=== PATIENT | female | born 1945 | race Caucasian/White ===

== ENCOUNTER → 2018-04-09 | Outpatient (CLI) | payer MEDICARE ==
--- NOTE | 2018-04-09 20:49 | CONS ---
CONSULTATION REASON FOR CONSULTATION: Obstructive sleep apnea. This is a 72-year-old female patient, a primary of Dr. Scott, coming in due to concerns about sleep apnea. She snores and her sleep is fragmented and she wakes up tired and sleepy during the day. Occasionally she grinds her teeth. She goes to bed around 10 p.m., wakes up at 7 to 8 a.m. in the morning, and she is not refreshed. She has been told by family members that she has loud snoring. Her weight has been up gradually, and currently she is up by 20 pounds. Her current [place] Score is 12. No sleep paralysis, hallucinations or cataplexy. PAST MEDICAL HISTORY: 1. Obesity. 2. Breast cancer with previous lumpectomy on the right followed by radiation therapy and chemotherapy. 3. Hypertension. SURGICAL HISTORY: 1. Lumpectomy. 2. Dilation and curettage. 3. Bladder suspension surgery. DRUG ALLERGIES: NOT KNOWN. OUTPATIENT MEDICATIONS: Listed. SOCIAL HISTORY: The patient is a nonsmoker. She quit smoking 24 years ago. No history of alcoholism. No history of IV drugs. FAMILY HISTORY: Positive for lung cancer in a sister. REVIEW OF SYSTEMS: Twelve-point review of systems was done. Positive findings are all mentioned above in the history of present illness. PHYSICAL EXAMINATION: BP is 161/71, pulse 63, respirations 16, temperature 98.8, saturation 93% on room air. Weight is 226. Height is 5 feet 0 inches. BMI is 44.1. Neck size 15-1/2 inches. GENERAL APPEARANCE: Calm, comfortable. Head is atraumatic, normocephalic. Neck is short, supple. Crowding of posterior pharynx. There is no goiter or neck masses. LUNGS: Clear to auscultation. Heart sounds are regular rate and rhythm. Normal S1, S2. No S3, S4. No murmurs. ABDOMEN: Soft, nontender. No organomegaly. EXTREMITIES: No edema. No cyanosis or clubbing. Neurologically the patient is alert and oriented x3. There is no focal neurological deficit. PSYCHIATRIC: No anxiety or depression. IMPRESSION: 1. Obstructive sleep apnea clinically suspected; needs further investigation. 2. Hypersomnia; [place] score of 12. 3. Obesity with a body mass index of 44.1. 4. History of breast cancer with previous lumpectomy followed by radiation therapy. Currently on Arimidex. 5. Hypertension. PLAN: 1. Encourage weight loss. 2. Sleep in a sidewise body position. 3. Implement good sleep hygiene measures. 4. Proceed with a screening polysomnogram to look for any significant sleep breathing disorder/sleep apnea. Will treat the patient accordingly. BENITO / MILLYN: [id number] /
== END | disposition home or self-care (01) ==
LOC: SLEEP 15:45
PROVIDERS: ATTEND Internal Medicine Critical Care Medicine
DX: G47.10 Hypersomnia, unspecified (principal); R06.83 Snoring; E66.9 Obesity, unspecified; I10 Essential (primary) hypertension; Z68.41 Body mass index [BMI] 40.0-44.9, adult; Z85.3 Personal history of malignant neoplasm of breast; Z90.10 Acquired absence of unspecified breast and nipple; Z79.899 Other long term (current) drug therapy; Z92.3 Personal history of irradiation
CPT/HCPCS: 99211

== ENCOUNTER → 2018-08-06 | Outpatient (CLI) | payer MEDICARE ==
--- NOTE | 2018-08-06 15:19 | PN ---
PROGRESS NOTE A 73-year-old female patient diagnosed having severe CÉSAR with an AHI of 35, currently on CPAP pressure of 11 cm of water. She is coming in for a compliancy check. The patient reports marked improvement in sleep quality. She has benefitted from treatment. She is waking up refreshed and alert during the day. Her daytime sleepiness improved. Her attention span has also improved. She is very compliant with CPAP therapy. Her CPAP therapy for the past 30 days indicated an average use of 9.6 hours of CPAP per night and her CPAP use for more than 4 hours, 100%. Her leak factor is 4 L/minute. AHI is down to 2.6, and she is using the AirFit P10 nose mask. [place] score is 0. REVIEW OF SYSTEMS: A 12-point review of system was done. Positive findings are mentioned in history of present illness. Clinically, she is improving. Her hypersomnia is improved. Attention is improved, no depression, no anxiety. No major tiredness or sleepiness during the day. Does not fall asleep while driving her car. No nausea, no vomiting. No chest pain. No heartburn at nighttime. PHYSICAL EXAMINATION: BP is 128/66, pulse 67, respirations 16, temperature 97.7, weight is 227, and [place] score 0, saturation 96% on room air. GENERAL APPEARANCE: Calm, comfortable. Head is atraumatic, normocephalic. Neck is short, supple, crowded in the posterior pharynx. There is no goiter or neck masses. LUNGS: Clear to auscultation. HEART: Sounds regular rate and rhythm. Normal S1, S2. No S3, S4. No murmurs. ABDOMEN: Soft, nontender. No organomegaly. EXTREMITIES: No edema. No cyanosis or clubbing. NEUROLOGIC: Alert and oriented x3. No focal neurological deficits. PSYCHIATRIC: Negative for anxiety or depression. IMPRESSION: 1. Severe obstructive sleep apnea with an apnea-hypopnea index of 35, currently on CPAP pressure of 11, treatment has been very successful. 2. Morbid obesity., body mass index of 44. 3. Hypersomnia, improved [place] score is down to 0 from a baseline of 12. 4. Hypertension. 5. History of breast cancer. PLAN: 1. Continue CPAP therapy at the same level of pressure which is 11 cm of water. 2. Continue using AirFit P10 nose pillows. 3. Encourage weight loss. 4. Implement good sleep hygiene measures. Will continue to follow. See me back in a year's time in follow up, earlier if needed. The treatment is extremely successful. MMODL / IJN: [id number] /
== END | disposition home or self-care (01) ==
LOC: SLEEP 13:13
PROVIDERS: ATTEND Internal Medicine Critical Care Medicine
DX: G47.33 Obstructive sleep apnea (adult) (pediatric) (principal); I10 Essential (primary) hypertension; E66.01 Morbid (severe) obesity due to excess calories; Z68.41 Body mass index [BMI] 40.0-44.9, adult; Z85.3 Personal history of malignant neoplasm of breast; Z99.89 Dependence on other enabling machines and devices

== ENCOUNTER 2019-04-25 15:42 | Inpatient (IN) | payer MEDICARE ==
[2019-04-25] MEDS ORDERED: NALOXONE 0.4 MG/ML 1 ML VIAL IV PRN (16:31)
--- NOTE | 2019-04-25 16:31 | ED ---
Recheck HPI - General Chief Complaint: Recheck/Abnormal Lab/Rx Stated Complaint: sent by Dr. Oliva Time Seen by Provider: 04/25/19 15:54 Source: patient, RN notes reviewed Mode of arrival: ambulatory Limitations: no limitations - History of Present Illness Initial Comments: This is a 73-year-old female with a history of CLL history of breast cancer who was sent over from her oncologist office after blood test revealed that she had a platelet count of 1 she has had some bruising no blood per rectum no nausea vomiting or other symptoms. Is also found to be somewhat anemic. Hemoglobin 8.7. She is sent in for a platelet transfusion and further evaluation. She denies any other symptoms at this time. - Related Data Home Medications Medication Instructions Recorded Confirmed Anastrozole [Arimidex] 1 mg PO DAILY 03/28/16 04/25/19 amLODIPine [Norvasc] 5 mg PO BID 03/28/16 04/25/19 Allopurinol [Zyloprim] 300 mg PO DAILY 04/25/19 04/25/19 Atorvastatin [Lipitor] 40 mg PO HS 04/25/19 04/25/19 Docusate [Colace] 100 mg PO DAILY 04/25/19 04/25/19 Ferrous Sulfate [Feosol] 325 mg PO DAILY 04/25/19 04/25/19 Imatinib Mesylate [Gleevec] 400 mg PO DAILY 04/25/19 04/25/19 Previous Rx's Medication Instructions Recorded Pantoprazole Sodium [Protonix] 40 mg PO BID #60 tablet. 04/27/16 Allergies Allergy/AdvReac Type Severity Reaction Status Date / Time No Known Allergies Allergy Verified 04/25/19 16:19 Review of Systems ROS Statement: Those systems with pertinent positive or pertinent negative responses have been documented in the HPI. ROS Other: All systems not noted in ROS Statement are negative. Past Medical History Past Medical History: Cancer, Hyperlipidemia, Hypertension, Osteoarthritis (OA) Additional Past Medical History / Comment(s): hx. breast cancer 2013 w/lumpectomy, chemo & radiation, new dx. chronic lymphocytic leukemia(CLL), DJD History of Any Multi-Drug Resistant Organisms: None Reported Past Surgical History: Bladder Surgery, Breast Surgery, Joint Replacement, Tubal Ligation, Uterine Ablation Additional Past Surgical History / Comment(s): 04/18/16 total right knee arthroplasty. Other surgical hx: right breast lumpectomy, bladder suspension, several D & C's Past Anesthesia/Blood Transfusion Reactions: Postoperative Nausea & Vomiting (PONV) Past Psychological History: No Psychological Hx Reported Smoking Status: Former smoker Past Alcohol Use History: None Reported Past Drug Use History: None Reported - Past Family History Father Family Medical History: Cancer Sister(s) Family Medical History: Cancer Mother Family Medical History: Cancer General Exam - General Exam Comments Initial Comments: This a well-developed well-nourished awake alert oriented 3 female Limitations: no limitations General appearance: alert, in no apparent distress Head exam: Present: atraumatic, normocephalic, normal inspection Eye exam: Present: normal appearance, PERRL, EOMI. Absent: scleral icterus, conjunctival injection, periorbital swelling ENT exam: Present: normal exam, mucous membranes moist Neck exam: Present: normal inspection. Absent: tenderness, meningismus, lymphadenopathy Respiratory exam: Present: normal lung sounds bilaterally. Absent: respiratory distress, wheezes, rales, rhonchi, stridor Cardiovascular Exam: Present: regular rate, normal rhythm, normal heart sounds. Absent: systolic murmur, diastolic murmur, rubs, gallop, clicks GI/Abdominal exam: Present: soft, normal bowel sounds. Absent: distended, tenderness, guarding, rebound, rigid Rectal exam: Present: deferred Extremities exam: Present: normal inspection, full ROM, normal capillary refill. Absent: tenderness, pedal edema, joint swelling, calf tenderness Back exam: Present: normal inspection Neurological exam: Present: alert, oriented X3, CN II-XII intact Psychiatric exam: Present: normal affect, normal mood Skin exam: Present: warm, dry, intact, pallor, other (Several areas of bruising noted on the extremities). Absent: normal color, rash Course Vital Signs 04/25/19 15:46 Temperature 97.4 F L Pulse Rate 73 Respiratory 18 Rate Blood Pressure 125/72 O2 Sat by Pulse 96 Oximetry Medical Decision Making - Medical Decision Making I did discuss the case with the patient and family members as well as with Dr. Oliva initially and also with . there is to the patient will be admitted for platelet transfusion immunoglobulin was requested but currently is not available. Disposition Clinical Impression: Thrombocytopenia, Anemia, CLL (chronic lymphocytic leukemia), History of breast cancer Disposition: ADMITTED IP TO THIS HOSP Condition: Fair Referrals: Temo Scott III, MD [Primary Care Provider] - 1-2 days
[2019-04-25 17:39] LABS: Anisocytosis Slight; HCT 25.6 % (34.0-46.0); HGB 8.7 gm/dL (11.4-16.0); MCH 34.1 pg (25.0-35.0); MCHC 33.9 g/dL (31.0-37.0); MCV 100.7 fL (80.0-100.0); Macrocytosis Slight; Mean Platelet Volume 7.2; RBC 2.54 m/uL (3.80-5.40)
[2019-04-25 17:54] LABS: Platelet Count 3 k/uL (150-450); WBC 52.6 k/uL (3.8-10.6)
[2019-04-25 18:20] LABS: Lymphocytes # (M) 52.07 k/uL (1.0-4.8); Neutrophils % (M) 1 %
[2019-04-25 18:23] LABS: Nucleated Red Blood Cells 0 /100 WBC (0-0); Total Cells Counted 200
[2019-04-25] MEDS: amLODIPine 5 MG TAB PO SCH (19:51)
[2019-04-25] MEDS: PANTOPRAZOLE 40 MG TABLET PO SCH (19:51)
[2019-04-25] MEDS: ATORVASTATIN 40 MG TAB PO SCH (19:51)
--- NOTE | 2019-04-25 22:43 | P.HPIM ---
History of Present Illness H&P Date: 04/25/19 Chief Complaint: Thrombocytopenia Is a 73-year-old female with a known history of hypertension, hyperlipidemia and CLL and history of breast cancer in 2014 status post chemoradiation and surgery who is currently being treated for CLL with imatinab and is on follow-up with Dr Seng Oliva as an outpatient was sent to Hospital due to thrombocytopenia. Patient had blood workup done at oncologist office and was found have platelet count 1000. Patient says that she has been developing rash over her hands and feet since yesterday evening. Denied any complaints of nosebleed, hematemesis or melena. Hemoglobin is 8.7. Patient was sent to ER for platelet transfusion and close monitoring. Denied any complaints of chest pain currently. No nausea vomiting or diarrhea. No headache or dizziness or lightheadedness. Platelet count 3000, hemoglobin 8.7, WBC 52.6 Review of Systems Constitutional: Patient denies any fever or chills . No generalized weakness or weight loss. Abdomen: Patient denied nausea vomiting and diarrhea and abdominal pain. Cardiovascular: Patient denies any chest pain or short of breath no palpitations. Respiratory: patient denied any cough is from production. No shortness of breath Neurologic: Patient denied any numbness or tingling headache. Musculoskeletal: Patient denies any complaints of joint swelling or deformity. Skin: Rash/tiny red spots Psychiatric: Negative Endocrine: No heat or cold intolerance. No recent weight gain. Genitourinary: No dysuria or hematuria. All other 14 point ROS negative except the above Past Medical History Past Medical History: Cancer, Hyperlipidemia, Hypertension, Osteoarthritis (OA) Additional Past Medical History / Comment(s): hx. breast cancer 2014 w/lumpectomy, chemo & radiation, new dx. chronic lymphocytic leukemia(CLL), DJD History of Any Multi-Drug Resistant Organisms: None Reported Past Surgical History: Bladder Surgery, Breast Surgery, Joint Replacement, Tubal Ligation, Uterine Ablation Additional Past Surgical History / Comment(s): 04/18/16 total right knee arthroplasty. Other surgical hx: right breast lumpectomy, bladder suspension, several D & C's Past Anesthesia/Blood Transfusion Reactions: Postoperative Nausea & Vomiting (PONV) Past Psychological History: No Psychological Hx Reported Additional Psychological History / Comment(s): Pt resides with another adult. She is independent. Smoking Status: Former smoker Past Alcohol Use History: None Reported Additional Past Alcohol Use History / Comment(s): quit smoking 1997, smoked for 20 yrs. Past Drug Use History: None Reported - Past Family History Father Family Medical History: Cancer Sister(s) Family Medical History: Cancer Mother Family Medical History: Cancer Medications and Allergies Home Medications Medication Instructions Recorded Confirmed Type Anastrozole [Arimidex] 1 mg PO DAILY 03/28/16 04/25/19 History amLODIPine [Norvasc] 5 mg PO BID 03/28/16 04/25/19 History Pantoprazole Sodium [Protonix] 40 mg PO BID #60 tablet. 04/27/16 04/25/19 Rx Allopurinol [Zyloprim] 300 mg PO DAILY 04/25/19 04/25/19 History Atorvastatin [Lipitor] 40 mg PO HS 04/25/19 04/25/19 History Docusate [Colace] 100 mg PO DAILY 04/25/19 04/25/19 History Ferrous Sulfate [Feosol] 325 mg PO DAILY 04/25/19 04/25/19 History Imatinib Mesylate [Gleevec] 400 mg PO DAILY 04/25/19 04/25/19 History Allergies Allergy/AdvReac Type Severity Reaction Status Date / Time No Known Allergies Allergy Verified 04/25/19 16:19 Physical Exam Vitals: Vital Signs Temp Pulse Pulse Resp BP BP Pulse Ox 04/25/19 22:30 98.9 F 66 120/57 04/25/19 22:24 98.9 F 72 18 120/57 94 L 04/25/19 19:54 98.5 F 80 16 148/68 97 04/25/19 19:31 98.5 F 80 16 148/68 97 04/25/19 19:00 97.6 F 75 18 133/78 99 04/25/19 17:20 75 18 145/67 96 04/25/19 15:46 97.4 F L 73 18 125/72 96 Intake and Output 04/25/19 04/25/19 04/25/19 06:59 14:59 22:59 Intake Total 0 Balance 0 Intake: Blood Product 0 Platelet Pheresis Acda2 0 Unit [id number] Other: Voiding Method Toilet Weight 106.594 kg PHYSICAL EXAMINATION: Patient is lying in the bed comfortably, no acute distress, awake alert and oriented.. HEENT: Normocephalic. Neck is supple. Pupils reactive. Nostrils clear. Oral cavity is moist. Ears reveal no drainage. Neck reveals no JVD, carotid bruits, or thyromegaly. CHEST EXAMINATION: Trachea is central. Symmetrical expansion. Lung finn clear to auscultation and percussion. CARDIAC: Normal S1, S2 with no gallops. No murmurs ABDOMEN: Soft. Bowel sounds normal. No organomegaly. No abdominal bruits. Extremities: reveal no edema. No clubbing or cyanosis Neurologically awake, alert, oriented x3 with well-coordinated movements. No focal deficits noted Skin: Patient does have petechial rash or legs and hands and all of the body.. Psychiatric: Coperative. Nonsuicidal Musculoskeletal: No joint swelling or deformity. Normal range of motion. Results CBC & Chem 7: 04/25/19 17:08 Labs: Abnormal Lab Results - Last 24 Hours (Table) 04/25/19 Range/Units 17:08 WBC 52.6 H* (3.8-10.6) k/uL RBC 2.54 L (3.80-5.40) m/uL Hgb 8.7 L (11.4-16.0) gm/dL Hct 25.6 L (34.0-46.0) % MCV 100.7 H (80.0-100.0) fL RDW 17.0 H (11.5-15.5) % Plt Count 3 L* (150-450) k/uL Neutrophils # (Manual) 0.53 L (1.3-7.7) k/uL Lymphocytes # (Manual) 52.07 H (1.0-4.8) k/uL Thrombosis Risk Factor Assmnt - DVT/VTE Prophylaxis DVT/VTE Prophylaxis: Mechanical Prophylaxis ordered Assessment and Plan Assessment: Anemia and thrombocytopenia secondary to CLL Petechial rash secondary to thrombocytopenia CLL currently on imitinab History of breast cancer in 2014 status post chemo/radiation and surgery Hypertension Hyperlipidemia Osteoarthritis Previous history of smoking DVT prophylaxis with SCDs Plan: Patient will be continued on gentle IV hydration. Will transfuse 4 units of platelets and monitor closely for any signs of bleeding. Continue with home medications and follow up. Oncology will be consulted. Considering immunoglobulins at this time but not available at the hospital. Further recommendations based on the clinical course. Discussed with the patient in detail at bedside. Time with Patient: Greater than 30
[2019-04-26 05:54] LABS: Anisocytosis Slight; HCT 22.2 % (34.0-46.0); HGB 7.5 gm/dL (11.4-16.0); MCH 34.4 pg (25.0-35.0); MCHC 33.9 g/dL (31.0-37.0); MCV 101.5 fL (80.0-100.0); Macrocytosis Slight; Mean Platelet Volume 7.6; RBC 2.19 m/uL (3.80-5.40); RDW 16.7 % (11.5-15.5); WBC 43.7 k/uL (3.8-10.6)
[2019-04-26 05:58] LABS: Platelet Count 19 k/uL (150-450)
[2019-04-26 06:33] LABS: Calcium 8.5 mg/dL (8.4-10.2); Potassium 3.5 mmol/L (3.5-5.1)
[2019-04-26 06:54] LABS: Neutrophils % (M) 1 %
[2019-04-26 06:55] LABS: Anisocytosis (M) Present; Lymphocytes # (M) 43.26 k/uL (1.0-4.8); Nucleated Red Blood Cells 0 /100 WBC (0-0); Total Cells Counted 100
[2019-04-26] MEDS: PANTOPRAZOLE 40 MG TABLET PO SCH ×2 (07:19→17:04)
[2019-04-26] MEDS: FERROUS SULFATE 325 MG TAB PO SCH (08:37)
[2019-04-26] MEDS: DOCUSATE 100 MG CAP PO SCH (08:37)
[2019-04-26] MEDS: amLODIPine 5 MG TAB PO SCH ×2 (08:37→20:53)
[2019-04-26] MEDS ORDERED: IMATINIB MESYLATE PO SCH (09:00)
[2019-04-26] MEDS ORDERED: ALLOPURINOL 300 MG TAB PO SCH (09:00)
--- NOTE | 2019-04-26 12:09 | P.CONS ---
History of Present Illness - Reason for Consult Consult date: 04/26/19 [place] neutropenia, new pancytopenia, multiple malignancies - History of Present Illness The patient is a 73-year-old white female, well known to myself with a very completed past medical history. She has a history of breast cancer diagnosed in 2013, treated with surgery, , as well as chemotherapy and radiation. She has since been on anastrozole without evidence of recurrence. After completion of chemotherapy of breast cancer she was noted to have increasing WBC with lymphocytosis with flow cytometry confirming CLL. The patient was initially on observation with slow increase in WBC but no symptoms. In late 2017, she developed severe anemia due to GI bleed. On EGD she was found to have an ulcerated mass in the stomach with biopsy positive for gastrointestinal stromal tumor. She underwent surgery in 10/01 with complete resection. Adjuvant Gleevec was recommended. However the patient at this time developed increasing lymphadenopathy and increase in WBC due to which she received Rituxan weekly 4, with good response, in 12/03. She was then started on Gleevec for her GI ST adjuvantly. The patient was seen in the office about 2 months ago where she appeared to be stable, with good tolerance of her anastrozole, as well as the back, and no evidence of CLL progression. She called the office on 04/25/19, complaining of a rash in her skin that was reddish in color and appeared to be petechial by description. In addition about a week prior she had developed the cracked 2 and had undergone capping. She has subsequently noted development of blood blisters on her gums, as well as on the edges of her tongue. She was asked to come into the office for a blood draw. Her CBC in the office showed a platelet count of 1000. In addition hemoglobin dropped into the 8 range, while WBC had increased into the 50,000 range with predominant lymphocytes and ANC actually less than 1000. 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 The case was discussed with the emergency room physician and the patient was sent in to the ER to receive platelet transfusions and steroids. She was subsequently admitted for further management. On exam today she denied any fresh petechiae/purpura or bruises. She continues to have blood blisters in her mouth, without overt bleeding. She has not noted any headaches, visual complaints, or blood in the stool or urine Review of Systems Constitutional: Denies chills, Denies fever Eyes: denies blurred vision, denies pain Ears: deny: decreased hearing, ear discharge, earache, tinnitus Ears, nose, mouth and throat: Reports as per HPI, Reports bleeding gums Cardiovascular: Reports dyspnea on exertion, Denies chest pain, Denies shortness of breath Respiratory: Denies cough Gastrointestinal: Denies abdominal pain, Denies diarrhea, Denies nausea, Denies vomiting Genitourinary: Denies dysuria, Denies hematuria Menstruation: Reports postmenopausal Musculoskeletal: Denies myalgias Integumentary: Reports as per HPI, Reports rash Neurological: Denies numbness, Denies weakness Psychiatric: Denies anxiety, Denies depression Endocrine: Denies fatigue, Denies weight change Hematologic/Lymphatic: Reports as per HPI, Reports easy bleeding, Reports easy bruising Past Medical History Past Medical History: Cancer, Hyperlipidemia, Hypertension, Osteoarthritis (OA) Additional Past Medical History / Comment(s): hx. breast cancer 2014 w/lumpectomy, chemo & radiation, new dx. chronic lymphocytic leukemia(CLL), DJD History of Any Multi-Drug Resistant Organisms: None Reported Past Surgical History: Bladder Surgery, Breast Surgery, Joint Replacement, Tubal Ligation, Uterine Ablation Additional Past Surgical History / Comment(s): 04/18/16 total right knee arthroplasty. Other surgical hx: right breast lumpectomy, bladder suspension, several D & C's Past Anesthesia/Blood Transfusion Reactions: Postoperative Nausea & Vomiting (PONV) Past Psychological History: No Psychological Hx Reported Additional Psychological History / Comment(s): Pt resides with another adult. She is independent. Smoking Status: Former smoker Past Alcohol Use History: None Reported Additional Past Alcohol Use History / Comment(s): quit smoking 1997, smoked for 20 yrs. Past Drug Use History: None Reported - Past Family History Father Family Medical History: Cancer Sister(s) Family Medical History: Cancer Mother Family Medical History: Cancer Medications and Allergies Home Medications Medication Instructions Recorded Confirmed Type Anastrozole [Arimidex] 1 mg PO DAILY 03/28/16 04/25/19 History amLODIPine [Norvasc] 5 mg PO BID 03/28/16 04/25/19 History Pantoprazole Sodium [Protonix] 40 mg PO BID #60 tablet. 04/27/16 04/25/19 Rx Allopurinol [Zyloprim] 300 mg PO DAILY 04/25/19 04/25/19 History Atorvastatin [Lipitor] 40 mg PO HS 04/25/19 04/25/19 History Docusate [Colace] 100 mg PO DAILY 04/25/19 04/25/19 History Ferrous Sulfate [Feosol] 325 mg PO DAILY 04/25/19 04/25/19 History Imatinib Mesylate [Gleevec] 400 mg PO DAILY 04/25/19 04/25/19 History Allergies Allergy/AdvReac Type Severity Reaction Status Date / Time No Known Allergies Allergy Verified 04/25/19 16:19 Physical Exam Vitals: Vital Signs Temp Pulse Pulse Pulse Resp BP BP 04/26/19 11:50 16 04/26/19 08:00 98.9 F 70 16 119/50 04/26/19 03:38 65 16 04/26/19 03:27 98.4 F 65 16 113/51 04/26/19 02:38 98.6 F 63 18 118/56 04/25/19 23:15 98.2 F 74 74 16 135/64 04/25/19 23:04 98.2 F 74 16 135/64 04/25/19 22:30 98.9 F 66 120/57 04/25/19 22:24 98.9 F 72 18 120/57 04/25/19 19:54 98.5 F 80 16 148/68 04/25/19 19:31 98.5 F 80 16 148/68 04/25/19 19:00 97.6 F 75 18 133/78 04/25/19 17:20 75 18 145/67 04/25/19 15:46 97.4 F L 73 18 125/72 Pulse Ox 04/26/19 11:50 04/26/19 08:00 96 04/26/19 03:38 04/26/19 03:27 93 L 04/26/19 02:38 96 04/25/19 23:15 97 04/25/19 23:04 97 04/25/19 22:30 04/25/19 22:24 94 L 04/25/19 19:54 97 04/25/19 19:31 97 04/25/19 19:00 99 04/25/19 17:20 96 04/25/19 15:46 96 Intake and Output 04/25/19 04/26/19 04/26/19 22:59 06:59 14:59 Intake Total 0 301 280 Balance 0 301 280 Intake: Oral 280 Blood Product 0 301 Platelet Pheresis Acda2 0 301 Unit [id number] Other: Voiding Method Toilet Toilet Toilet # Voids 1 1 Weight 106.594 kg 102.5 kg - Constitutional General appearance: no acute distress - EENT Eyes: EOMI, PERRLA ENT: hearing grossly normal, other (Ecchymosis, and blood blisters on gums. Also has small blood blisters around lateral edges of tongue bilaterally) - Neck Neck: no lymphadenopathy Thyroid: bilateral: normal size - Respiratory Respiratory: bilateral: CTA - Cardiovascular Rhythm: regular Heart sounds: normal: S1, S2 - Gastrointestinal General gastrointestinal: normal bowel sounds, soft - Integumentary Integumentary: normal turgor, rash (Widespread petechial rash involving upper and lower extremities) - Neurologic Neurologic: CNII-XII intact - Musculoskeletal Musculoskeletal: generalized weakness, strength equal bilaterally - Psychiatric Psychiatric: A&O x's 3, appropriate affect Results CBC & Chem 7: 04/26/19 05:43 04/26/19 05:43 Labs: Abnormal Lab Results - Last 24 Hours (Table) 04/25/19 04/26/19 04/26/19 Range/Units 17:08 05:43 05:43 WBC 52.6 H* 43.7 H (3.8-10.6) k/uL RBC 2.54 L 2.19 L (3.80-5.40) m/uL Hgb 8.7 L 7.5 L (11.4-16.0) gm/dL Hct 25.6 L 22.2 L (34.0-46.0) % MCV 100.7 H 101.5 H (80.0-100.0) fL RDW 17.0 H 16.7 H (11.5-15.5) % Plt Count 3 L* 19 L* D (150-450) k/uL Neutrophils # (Manual) 0.53 L 0.44 L* (1.3-7.7) k/uL Lymphocytes # (Manual) 52.07 H 43.26 H (1.0-4.8) k/uL BUN 25 H (7-17) mg/dL Glucose 108 H (74-99) mg/dL Assessment and Plan (1) Thrombocytopenia Narrative/Plan: The patient consented with new severe through Sunday and thrombocytopenia with. Count of only 1000, and symptoms and signs as noted. This is a new finding for her with platelet counts in the 120-1:30 range about 2 months ago. 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 The case was discussed with the ER physician and the patient sent in for IV steroids and platelet transfusion. With that, platelets have increased to 19,000 today. She has had no evidence of obvious major bleeding. She be placed on IV steroids. We did attempt to give IVIG but that is not available due to national shortage. Follow counts on IV steroids with transfusions to keep platelets above 10,000. - As this is related to CLL progression, which is also causing other symptoms, the patient will be started on specific treatment for CLL as an outpatient Current Visit: Yes Status: Acute Code(s): D69.6 - THROMBOCYTOPENIA, UNSPECIFIED SNOMED Code(s): 102410702 (2) CLL (chronic lymphocytic leukemia) Narrative/Plan: There is definite progression with increasing WBC and ANC. In addition there is a drop in hemoglobin and WBC, in addition to low platelets. His most consistent with CLL progression. Workup for hemolysis has been ordered to rule out autoimmune effect. While, cytopenia can be caused by CLL progression directly, severe fatigue of her thrombo-cytopenia is more consistent with an autoimmune phenomenon, most likely caused by the CLL progression. - Based on the above the patient will need specific treatment for CLL which will be started as an outpatient. The options include chemoradiotherapy, or targeted agent, specifically Ibrutinib Current Visit: Yes Status: Acute Code(s): C91.90 - LYMPHOID LEUKEMIA, UNSPECIFIED NOT HAVING ACHIEVED REMISSION SNOMED Code(s): 48856533 (3) Pancytopenia Narrative/Plan: Etiology is as noted above. Continue to monitor counts. Transfuse to keep hemoglobin greater than 7. On IV steroids for the low platelets. WBC is expected to improve once the patient starts CLL treatment. Current Visit: Yes Status: Acute Code(s): D61.818 - OTHER PANCYTOPENIA SNOMED Code(s): 559924546 (4) Breast cancer Narrative/Plan: In remission. Tolerating anastrozole well without evidence of recurrence. Continue same Current Visit: Yes Status: Acute Code(s): C50.919 - MALIGNANT NEOPLASM OF UNSP SITE OF UNSPECIFIED FEMALE BREAST SNOMED Code(s): 968061047 (5) Gastrointestinal stromal neoplasm Narrative/Plan: Status post surgery, on Gleevec adjuvantly, again without evidence of recurrence. Gleevec will be on hold because of the pancytopenia which has been caused by CLL, as it can also cause myelosuppression Current Visit: Yes Status: Acute Code(s): C49.A0 - GASTROINTESTINAL STROMAL TUMOR, UNSPECIFIED SITE SNOMED Code(s): 132390990 Plan: Hold allopurinol due to potential for marrow toxicity
[2019-04-26] MEDS: methylPREDNISolone SOD SUCCI 125 MG/2 ML VIAL IV SCH ×3 (12:19→23:05)
[2019-04-26] MEDS: ANASTROZOLE 1 MG TAB PO SCH (12:20)
--- NOTE | 2019-04-26 13:10 | P.PN ---
Subjective Is a 73-year-old female with a known history of hypertension, hyperlipidemia and CLL and history of breast cancer in 2014 status post chemoradiation and surgery who is currently being treated for CLL with imatinab and is on follow-up with Dr. Oliva as an outpatient was sent to Hospital due to thrombocytopenia. Patient had blood workup done at oncologist office and was found have platelet count 1000. Patient says that she has been developing rash over her hands and feet since yesterday evening. Denied any complaints of nosebleed, hematemesis or melena. Hemoglobin is 8.7. Patient was sent to ER for platelet transfusion and close monitoring. Denied any complaints of chest pain currently. No nausea vomiting or diarrhea. No headache or dizziness or lightheadedness. Platelet count 3000, hemoglobin 8.7, WBC 52.6 04/26/2019 Patient is fully awake and oriented, she is not in pain. She denies chest pain or dyspnea or headache. She has white cell. Petechial rash on her trunk and extremity. Patient originally came to the hospital because she has easy bruising for the last week and her dentist daughter advised him to see her physi amena Dr. Oliva sent her to the hospital for thrombocytopenia. Patient is hemodynamically stable. His WBC came down from 52 down to 40 3K, platelets improved from 3 up to 19. Hemoglobin went down from 8.7 to 7.5. Patient is currently on a Protonix. Oncology input is appreciated, and the recommended to continue with IV steroids. Also investigation underway to rule out hemolysis. As per sewing inspector team patient will need treatment for her CLL in the outpatient setting. Patient continue with anastrozole for her history of breast cancer. Hold allopurinol Review of systems : Constitutional: Patient denies any fever or chills . No generalized weakness or weight loss. Abdomen: Patient denied nausea vomiting and diarrhea and abdominal pain. Cardiovascular: Patient denies any chest pain or short of breath no palpitations. Respiratory: patient denied any cough is from production. No shortness of breath Neurologic: Patient denied any numbness or tingling headache. Musculoskeletal: Patient denies any complaints of joint swelling or deformity. Skin: Rash/tiny red spots Psychiatric: Negative Endocrine: No heat or cold intolerance. No recent weight gain. Genitourinary: No dysuria or hematuria. Medication: Norvasc 5 mg, anastrozole 1 mg, Lipitor 40 mg, Colace 100 mg, ferrous sulfate 325 mg, Solu-Medrol 60 mg, Protonix 40 mg Objective - Vital Signs Vital signs: Vital Signs Temp 98.9 F 04/26/19 08:00 Pulse 77 04/26/19 12:00 Resp 16 04/26/19 12:00 BP 147/65 04/26/19 12:00 Pulse Ox 98 04/26/19 12:00 Intake & Output 04/25/19 04/26/19 04/26/19 18:59 06:59 18:59 Intake Total 301 280 Balance 301 280 Weight 106.594 kg 102.5 kg Intake: Oral 280 Blood Product 301 Platelet Pheresis Acda2 301 Unit [id number] Other: Voiding Method Toilet Toilet # Voids 1 1 - Labs CBC & Chem 7: 04/26/19 05:43 04/26/19 05:43 Labs: Abnormal Lab Results - Last 24 Hours (Table) 04/25/19 04/26/19 04/26/19 Range/Units 17:08 05:43 05:43 WBC 52.6 H* 43.7 H (3.8-10.6) k/uL RBC 2.54 L 2.19 L (3.80-5.40) m/uL Hgb 8.7 L 7.5 L (11.4-16.0) gm/dL Hct 25.6 L 22.2 L (34.0-46.0) % MCV 100.7 H 101.5 H (80.0-100.0) fL RDW 17.0 H 16.7 H (11.5-15.5) % Plt Count 3 L* 19 L* D (150-450) k/uL Neutrophils # (Manual) 0.53 L 0.44 L* (1.3-7.7) k/uL Lymphocytes # (Manual) 52.07 H 43.26 H (1.0-4.8) k/uL BUN 25 H (7-17) mg/dL Glucose 108 H (74-99) mg/dL Assessment and Plan Assessment: 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 Currently on anastrozole Hypertension Hyperlipidemia Osteoarthritis Previous history of smoking DVT prophylaxis with SCDs Plan: This is a pleasant 73 years old female who presents with anemia, thrombocytopenia and rash. Continue with transfusion as needed. Transfuse blood/packed RBCs to keep hemoglobin more than 7. Follow-up with hematology/oncology team recommendation. Monitor for signs of bleeding. Labs and medication were reviewed.. Continue same treatment. Continue with sympt omatic treatment. Resume home medication. Monitor lytes and vitals. DVT and GI prophylaxis. Further recommendations of the clinical course of the patient DVT prophylaxis: No anticoagulation in view of severe thrombocytopenia GI Prophylaxis: Protonix PT/OT: Pending Prognosis is guarded
[2019-04-26 16:34] LABS: Glucose,Whole Blood 179 mg/dL (75-99)
[2019-04-26] MEDS: INSULIN ASPART (NovoLOG) 100 UNIT/ML VIAL SQ SCH ×2 (17:04→20:53)
[2019-04-26 20:17] LABS: Glucose,Whole Blood 218 mg/dL (75-99)
[2019-04-26] MEDS: ATORVASTATIN 40 MG TAB PO SCH (20:53)
[2019-04-27] MEDS: methylPREDNISolone SOD SUCCI 125 MG/2 ML VIAL IV SCH ×4 (05:12→23:01)
[2019-04-27] MEDS: PANTOPRAZOLE 40 MG TABLET PO SCH ×2 (05:12→16:57)
[2019-04-27 05:44] LABS: HCT 27.8 % (34.0-46.0); MCH 34.9 pg (25.0-35.0); MCHC 33.6 g/dL (31.0-37.0); MCV 103.6 fL (80.0-100.0); Macrocytosis Moderate; Mean Platelet Volume 7.2; RBC 2.69 m/uL (3.80-5.40); RDW 15.9 % (11.5-15.5)
[2019-04-27 05:59] LABS: Glucose,Whole Blood 179 mg/dL (75-99)
[2019-04-27] MEDS: INSULIN ASPART (NovoLOG) 100 UNIT/ML VIAL SQ SCH ×4 (06:17→20:37)
[2019-04-27 06:24] LABS: HGB 9.4 gm/dL (11.4-16.0)
[2019-04-27 06:25] LABS: WBC 63.5 k/uL (3.8-10.6)
[2019-04-27 08:26] LABS: Monocytes # (M) 0.64 k/uL (0-1.0); Nucleated Red Blood Cells 0 /100 WBC (0-0); Total Cells Counted 200
[2019-04-27 08:27] LABS: Poikilocytosis (M) Present
[2019-04-27 08:28] LABS: Neutrophils % (M) 0 %; Platelet Count 15 k/uL (150-450)
[2019-04-27] MEDS: DOCUSATE 100 MG CAP PO SCH (08:57)
[2019-04-27] MEDS: ANASTROZOLE 1 MG TAB PO SCH (08:58)
[2019-04-27] MEDS: amLODIPine 5 MG TAB PO SCH ×2 (08:58→20:37)
[2019-04-27] MEDS: FERROUS SULFATE 325 MG TAB PO SCH (08:58)
--- NOTE | 2019-04-27 11:01 | P.PN ---
Subjective Is a 73-year-old female with a known history of hypertension, hyperlipidemia and CLL and history of breast cancer in 2014 status post chemoradiation and surgery who is currently being treated for CLL with imatinab and is on follow-up with Dr. Oliva as an outpatient was sent to Hospital due to thrombocytopenia. Patient had blood workup done at oncologist office and was found have platelet count 1000. Patient says that she has been developing rash over her hands and feet since yesterday evening. Denied any complaints of nosebleed, hematemesis or melena. Hemoglobin is 8.7. Patient was sent to ER for platelet transfusion and close monitoring. Denied any complaints of chest pain currently. No nausea vomiting or diarrhea. No headache or dizziness or lightheadedness. Platelet count 3000, hemoglobin 8.7, WBC 52.6 04/26/2019 Patient is fully awake and oriented, she is not in pain. She denies chest pain or dyspnea or headache. She has white cell. Petechial rash on her trunk and extremity. Patient originally came to the hospital because she has easy bruising for the last week and her dentist daughter advised him to see her physi amena Dr. Oliva sent her to the hospital for thrombocytopenia. Patient is hemodynamically stable. His WBC came down from 52 down to 40 3K, platelets improved from 3 up to 19. Hemoglobin went down from 8.7 to 7.5. Patient is currently on a Protonix. Oncology input is appreciated, and the recommended to continue with IV steroids. Also investigation underway to rule out hemolysis. As per well driller helper team patient will need treatment for her CLL in the outpatient setting. Patient continue with anastrozole for her history of breast cancer. Hold allopurinol 04/27/2019 Patients with no chest pain or dyspnea. No bleeding from any site. No other complaints. She still have petechia rash. Patient is afebrile and hemodynamically stable. Labs showing worsening leukocytosis to 63.5, hemoglobin 9.4 and platelets at 15. Virologist team R following the case. Allopurinol was buttonholed. Continue with Protonix twice daily and Solu-Medrol 60 mg. Acute on the studies has been sent by oncology/hematology team. Patient will need chemotherapy for her CLL upon discharge as per oncology team. Objective - Vital Signs Vital signs: Vital Signs Temp 97.4 F L 04/27/19 05:26 Pulse 78 04/27/19 05:26 Resp 16 04/27/19 05:26 BP 151/78 04/27/19 05:26 Pulse Ox 96 04/27/19 05:26 Intake & Output 04/26/19 04/27/19 04/27/19 18:59 06:59 18:59 Intake Total 460 Balance 460 Weight 102.8 kg Intake: Oral 460 Other: Voiding Method Toilet Toilet # Voids 4 1 1 - Exam GENERAL: The patient is alert and oriented x3, not in any acute distress. Well developed, well nourished. HEENT: Pupils are round and equally reacting to light. EOMI. No scleral icterus. No conjunctival pallor. Normocephalic, atraumatic. No pharyngeal erythema. No thyromegaly. CARDIOVASCULAR: S1 and S2 present. No murmurs, rubs, or gallops. PULMONARY: Chest is clear to auscultation, no wheezing or crackles. ABDOMEN: Soft, nontender, nondistended, normoactive bowel sounds. No palpable organomegaly. MUSCULOSKELETAL: No joint swelling or deformity. EXTREMITIES: No cyanosis, clubbing, or pedal edema. NEUROLOGICAL: Gross neurological examination did not reveal any focal deficits. -SKIN: Petechia on the extremities and the abdomen, stable - Labs CBC & Chem 7: 04/27/19 05:16 04/26/19 05:43 Labs: Abnormal Lab Results - Last 24 Hours (Table) 04/26/19 04/26/19 04/27/19 Range/Units 16:33 20:16 05:16 WBC 63.5 H* (3.8-10.6) k/uL RBC 2.69 L (3.80-5.40) m/uL Hgb 9.4 L D (11.4-16.0) gm/dL Hct 27.8 L (34.0-46.0) % MCV 103.6 H (80.0-100.0) fL RDW 15.9 H (11.5-15.5) % Plt Count 15 L* (150-450) k/uL Neutrophils # (Manual) 0.00 L* (1.3-7.7) k/uL Lymphocytes # (Manual) 63.50 H (1.0-4.8) k/uL POC Glucose (mg/dL) 179 H 218 H (75-99) mg/dL 04/27/19 Range/Units 05:58 WBC (3.8-10.6) k/uL RBC (3.80-5.40) m/uL Hgb (11.4-16.0) gm/dL Hct (34.0-46.0) % MCV (80.0-100.0) fL RDW (11.5-15.5) % Plt Count (150-450) k/uL Neutrophils # (Manual) (1.3-7.7) k/uL Lymphocytes # (Manual) (1.0-4.8) k/uL POC Glucose (mg/dL) 179 H (75-99) mg/dL Assessment and Plan Assessment: 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 Currently on anastrozole Hypertension Hyperlipidemia Osteoarthritis Previous history of smoking DVT prophylaxis with SCDs Plan: This is a pleasant 73 years old female who presents with anemia, thrombocytopenia and rash. Continue with transfusion as needed. Transfuse blood/packed RBCs to keep hemoglobin more than 7. Continue with steroids. Patient on Protonix. Follow-up with hematology/oncology team recommendation. Dr. Ziegler studies are still pending. Monitor for signs of bleeding. Labs and medication were reviewed.. Continue same treatment. Continue with symptomatic treatment. Resume home medication. Monitor lytes and vitals. DVT and GI prophylaxis. Further recommendations of the clinical course of the patient DVT prophylaxis: No anticoagulation in view of severe thrombocytopenia GI Prophylaxis: Protonix PT/OT: Pending Prognosis is guarded
[2019-04-27 12:15] LABS: Glucose,Whole Blood 152 mg/dL (75-99)
--- NOTE | 2019-04-27 12:21 | P.PN ---
Subjective Progress Note Date: 04/27/19 The patient feels well overall. She has had no bleeding from the mouth, or in the stool or urine. She has noted a few scattered bruises that she had not seen before but they do not appear to be fresh. No fevers or chills, no nausea or vomiting. Objective - Vital Signs Vital signs: Vital Signs Temp 97.4 F L 04/27/19 05:26 Pulse 94 04/27/19 08:00 Resp 16 04/27/19 12:00 BP 138/70 04/27/19 08:00 Pulse Ox 94 L 04/27/19 08:00 Intake & Output 04/26/19 04/27/19 04/27/19 18:59 06:59 18:59 Intake Total 460 200 Balance 460 200 Weight 102.8 kg Intake: Oral 460 200 Other: Voiding Method Toilet Toilet Toilet # Voids 4 1 1 - Constitutional General appearance: Present: no acute distress - EENT Eyes: Present: EOMI ENT: Present: hearing grossly normal, other (Blood blisters involving, and lateral edge of tongue mostly resolved) - Respiratory Respiratory: bilateral: CTA - Cardiovascular Rhythm: regular Heart sounds: normal: S1, S2 - Gastrointestinal General gastrointestinal: Present: normal bowel sounds, soft - Integumentary Integumentary: Present: normal - Neurologic Neurologic: Present: CNII-XII intact - Musculoskeletal Musculoskeletal: Present: generalized weakness, strength equal bilaterally - Psychiatric Psychiatric: Present: A&O x's 3, appropriate affect - Labs CBC & Chem 7: 04/27/19 05:16 04/26/19 05:43 Labs: Abnormal Lab Results - Last 24 Hours (Table) 04/26/19 04/26/19 04/27/19 Range/Units 16:33 20:16 05:16 WBC 63.5 H* (3.8-10.6) k/uL RBC 2.69 L (3.80-5.40) m/uL Hgb 9.4 L D (11.4-16.0) gm/dL Hct 27.8 L (34.0-46.0) % MCV 103.6 H (80.0-100.0) fL RDW 15.9 H (11.5-15.5) % Plt Count 15 L* (150-450) k/uL Neutrophils # (Manual) 0.00 L* (1.3-7.7) k/uL Lymphocytes # (Manual) 63.50 H (1.0-4.8) k/uL POC Glucose (mg/dL) 179 H 218 H (75-99) mg/dL 04/27/19 04/27/19 Range/Units 05:58 11:54 WBC (3.8-10.6) k/uL RBC (3.80-5.40) m/uL Hgb (11.4-16.0) gm/dL Hct (34.0-46.0) % MCV (80.0-100.0) fL RDW (11.5-15.5) % Plt Count (150-450) k/uL Neutrophils # (Manual) (1.3-7.7) k/uL Lymphocytes # (Manual) (1.0-4.8) k/uL POC Glucose (mg/dL) 179 H 152 H (75-99) mg/dL Assessment and Plan (1) Thrombocytopenia Narrative/Plan: . Counts staying above 10,000 at this time, with resolution of some of her symptoms. Continue IV steroids. The patient will need treatment of her underlying CLL, which we will plan to start next week. If. Counts are stable, plan to switch to by mouth steroids tomorrow and subsequently discharged. Current Visit: Yes Status: Acute Code(s): D69.6 - THROMBOCYTOPENIA, UNSPECIFIED SNOMED Code(s): 595578176 (2) CLL (chronic lymphocytic leukemia) Narrative/Plan: The patient appears to have progression with increased WBC, and cytopenias. It is not clear if her cytopenias are due to progression of the CLL or autoimmune in nature. The latter would appear to be more likely a she has no systemic symptoms whatsoever. In either case she will need treatment of the underlying CLL. We will plan to start that as an outpatient as soon as possible, likely in this coming week Current Visit: Yes Status: Acute Code(s): C91.90 - LYMPHOID LEUKEMIA, UNSPECIFIED NOT HAVING ACHIEVED REMISSION SNOMED Code(s): 72264975 (3) Pancytopenia Narrative/Plan: Etiology most likely as noted above. Hemoglobin is stable in the safe range. ANC continues to be quite low. Expect that this will improve once her CLL start responding to treatment. Continue monitoring and supportive care in the meantime Current Visit: Yes Status: Acute Code(s): D61.818 - OTHER PANCYTOPENIA SNOMED Code(s): 939555170 (4) Breast cancer Narrative/Plan: Continue Arimidex Current Visit: Yes Status: Acute Code(s): C50.919 - MALIGNANT NEOPLASM OF UNSP SITE OF UNSPECIFIED FEMALE BREAST SNOMED Code(s): 988620105 (5) Gastrointestinal stromal neoplasm Narrative/Plan: Gleevec will be on hold until CBC improves Current Visit: Yes Status: Acute Code(s): C49.A0 - GASTROINTESTINAL STROMAL TUMOR, UNSPECIFIED SITE SNOMED Code(s): 478408757
[2019-04-27 16:37] LABS: Glucose,Whole Blood 222 mg/dL (75-99)
[2019-04-27 20:35] LABS: Glucose,Whole Blood 214 mg/dL (75-99)
[2019-04-27] MEDS: ATORVASTATIN 40 MG TAB PO SCH (20:37)
[2019-04-28] MEDS: methylPREDNISolone SOD SUCCI 125 MG/2 ML VIAL IV SCH ×3 (05:46→17:32)
[2019-04-28 06:12] LABS: HCT 22.5 % (34.0-46.0); HGB 7.1 gm/dL (11.4-16.0); MCH 32.6 pg (25.0-35.0); MCHC 31.6 g/dL (31.0-37.0); MCV 103.3 fL (80.0-100.0); Macrocytosis Moderate; Mean Platelet Volume 7.8; RBC 2.18 m/uL (3.80-5.40); RDW 15.9 % (11.5-15.5)
[2019-04-28 06:24] LABS: African American GFR (CKD) >90 (>60 ml/min/1.73 sqM); Anion Gap 8 mmol/L; Blood Urea Nitrogen 26 mg/dL (7-17); Calcium 8.8 mg/dL (8.4-10.2); Carbon Dioxide 26 mmol/L (22-30); Chloride 107 mmol/L (98-107); Glucose 179 mg/dL (74-99); Potassium 3.8 mmol/L (3.5-5.1); Sodium 141 mmol/L (137-145)
[2019-04-28] MEDS: PANTOPRAZOLE 40 MG TABLET PO SCH ×2 (06:27→17:31)
[2019-04-28] MEDS: INSULIN ASPART (NovoLOG) 100 UNIT/ML VIAL SQ SCH ×4 (06:27→21:36)
[2019-04-28 06:30] LABS: Glucose,Whole Blood 198 mg/dL (75-99)
[2019-04-28 06:35] LABS: Nucleated Red Blood Cells 0 /100 WBC (0-0); Total Cells Counted 100
[2019-04-28 06:40] LABS: Platelet Count 6 k/uL (150-450)
[2019-04-28] MEDS: amLODIPine 5 MG TAB PO SCH ×2 (08:19→21:36)
[2019-04-28] MEDS: ANASTROZOLE 1 MG TAB PO SCH (08:19)
[2019-04-28] MEDS: FERROUS SULFATE 325 MG TAB PO SCH (08:19)
[2019-04-28] MEDS: DOCUSATE 100 MG CAP PO SCH (08:19)
--- NOTE | 2019-04-28 10:49 | P.PN ---
Subjective s a 73-year-old female with a known history of hypertension, hyperlipidemia and CLL and history of breast cancer in 2014 status post chemoradiation and surgery who is currently being treated for CLL with imatinab and is on follow-up with Dr. Oliva as an outpatient was sent to Hospital due to thrombocytopenia. Patient had blood workup done at oncologist office and was found have platelet count 1000. Patient says that she has been developing rash over her hands and feet since yesterday evening. Denied any complaints of nosebleed, hematemesis or melena. Hemoglobin is 8.7. Patient was sent to ER for platelet transfusion and close monitoring. Denied any complaints of chest pain currently. No nausea vomiting or diarrhea. No headache or dizziness or lightheadedness. Patient received platelets and white count went up to 19,000. 04/28/2019 patient doesn't complain of any chest pain racing heart She still has petechial rashes in her mouth and her skin all over She does not complain of any bleeding from anywhere, no headache, no ne urological symptoms Objective - Vital Signs Vital signs: Vital Signs Temp 98.3 F 04/28/19 08:00 Pulse 69 04/28/19 08:00 Resp 16 04/28/19 08:00 BP 157/65 04/28/19 08:00 Pulse Ox 95 04/28/19 08:00 Intake & Output 04/27/19 04/28/19 04/28/19 18:59 06:59 18:59 Intake Total 200 480 240 Balance 200 480 240 Weight 102.9 kg Intake: Oral 200 480 240 Other: Voiding Method Toilet Toilet # Voids 1 1 - Exam On exam, alert and oriented x3. HEENT: Conjunctivae normal. eyes normal. Patient is having petechiae in her mouth inside her cheek NECK: No JVD. No thyroid enlargement. No LNs CARDIOVASCULAR: S1, S2 positive RESPIRATION: Breath sounds are equally both sides no rhonchi or Rales and Wheezing ABDOMEN: Soft, nontender . No guarding. no masses palpable. No ascites, No hepatosplenomegaly.Bowel sounds heard. LEGS: No edema. no swelling NERVOUS SYSTEM: Cranial N 2-12 grossly normal. Moves all 4 limbs. No focal deficits. No sensory deficit. No signs of cerebellar dysfucntion. Skin: Patient is having petechial rash all over the body - Labs CBC & Chem 7: 04/28/19 05:49 04/28/19 05:49 Labs: Abnormal Lab Results - Last 24 Hours (Table) 04/27/19 04/27/19 04/27/19 Range/Units 11:54 16:36 20:28 WBC (3.8-10.6) k/uL RBC (3.80-5.40) m/uL Hgb (11.4-16.0) gm/dL Hct (34.0-46.0) % MCV (80.0-100.0) fL RDW (11.5-15.5) % Plt Count (150-450) k/uL Lymphocytes # (Manual) (1.0-4.8) k/uL BUN (7-17) mg/dL Glucose (74-99) mg/dL POC Glucose (mg/dL) 152 H 222 H 214 H (75-99) mg/dL 04/28/19 04/28/19 04/28/19 Range/Units 05:49 05:49 06:24 WBC 47.0 H (3.8-10.6) k/uL RBC 2.18 L (3.80-5.40) m/uL Hgb 7.1 L D (11.4-16.0) gm/dL Hct 22.5 L (34.0-46.0) % MCV 103.3 H (80.0-100.0) fL RDW 15.9 H (11.5-15.5) % Plt Count 6 L* D (150-450) k/uL Lymphocytes # (Manual) 47.00 H (1.0-4.8) k/uL BUN 26 H (7-17) mg/dL Glucose 179 H (74-99) mg/dL POC Glucose (mg/dL) 198 H (75-99) mg/dL Assessment and Plan Plan: - Thrombocytopenia - 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
[2019-04-28 12:03] LABS: Glucose,Whole Blood 171 mg/dL (75-99)
[2019-04-28 16:55] LABS: Glucose,Whole Blood 194 mg/dL (75-99)
--- NOTE | 2019-04-28 18:53 | P.PN ---
Subjective Progress Note Date: 04/28/19 The patient remains asymptomatic overall in terms of systemic symptoms. She has noted some new bruising on her upper extremities. She'll not had any new lesions orally. No obvious bleeding from the nose or mouth, or in the stool or urine. Objective - Vital Signs Vital signs: Vital Signs Temp 98.3 F 04/28/19 08:00 Pulse 82 04/28/19 16:00 Resp 16 04/28/19 16:00 BP 157/71 04/28/19 16:00 Pulse Ox 98 04/28/19 16:00 Intake & Output 04/27/19 04/28/19 04/28/19 18:59 06:59 18:59 Intake Total 200 480 720 Output Total 1200 Balance 200 480 -480 Weight 102.9 kg Intake: Oral 200 480 720 Output: Urine 1200 Other: Voiding Method Toilet Toilet Toilet # Voids 1 1 - Constitutional General appearance: Present: no acute distress - EENT Eyes: Present: EOMI ENT: Present: hearing grossly normal, normal oropharynx - Respiratory Respiratory: bilateral: CTA - Cardiovascular Rhythm: regular - Gastrointestinal General gastrointestinal: Present: normal bowel sounds, soft - Integumentary Integumentary: Present: normal - Neurologic Neurologic: Present: CNII-XII intact - Musculoskeletal Musculoskeletal: Present: generalized weakness, strength equal bilaterally - Psychiatric Psychiatric: Present: A&O x's 3, appropriate affect - Labs CBC & Chem 7: 04/28/19 05:49 04/28/19 05:49 Labs: Abnormal Lab Results - Last 24 Hours (Table) 04/27/19 04/28/19 04/28/19 Range/Units 20:28 05:49 05:49 WBC 47.0 H (3.8-10.6) k/uL RBC 2.18 L (3.80-5.40) m/uL Hgb 7.1 L D (11.4-16.0) gm/dL Hct 22.5 L (34.0-46.0) % MCV 103.3 H (80.0-100.0) fL RDW 15.9 H (11.5-15.5) % Plt Count 6 L* D (150-450) k/uL Lymphocytes # (Manual) 47.00 H (1.0-4.8) k/uL BUN 26 H (7-17) mg/dL Glucose 179 H (74-99) mg/dL POC Glucose (mg/dL) 214 H (75-99) mg/dL 04/28/19 04/28/19 04/28/19 Range/Units 06:24 11:50 16:50 WBC (3.8-10.6) k/uL RBC (3.80-5.40) m/uL Hgb (11.4-16.0) gm/dL Hct (34.0-46.0) % MCV (80.0-100.0) fL RDW (11.5-15.5) % Plt Count (150-450) k/uL Lymphocytes # (Manual) (1.0-4.8) k/uL BUN (7-17) mg/dL Glucose (74-99) mg/dL POC Glucose (mg/dL) 198 H 171 H 194 H (75-99) mg/dL Assessment and Plan (1) Thrombocytopenia Narrative/Plan: Platelet count was diminished to less than 10,000 again today. She has had some mild new bruising on upper extremities, but resolution of oral blood blisters as well as previously noted petechia. Transfuse 1 unit platelets. Continue IV steroids. Current Visit: Yes Status: Acute Code(s): D69.6 - THROMBOCYTOPENIA, UNSPECIFIED SNOMED Code(s): 406079341 (2) CLL (chronic lymphocytic leukemia) Narrative/Plan: The patient obviously has progression of CLL, with increase in the WBC. However the current clinical presentation is somewhat uncharacteristic. She has developed marked cytopenias, which are out of proportion to the observed increase in the WBC. She does not have evidence of aggressive progression otherwise in terms of rapidly increasing adenopathy, or B symptoms. Labs done in the office showed no evidence of blood loss or autoimmune RBC destruction. Her lack of B symptoms and otherwise normal labs argue against CLL related phenomenon such as hemophagocytosis. It was presumed that the thrombo cytopenia was immune mediated, but a pure hypoproliferative condition cannot be ruled out Given the above inconsistencies, I discussed doing a bone marrow aspiration biopsy for further workup. The procedure was discussed in detail with the patient. She is agreeable to the same, and this will be scheduled Current Visit: Yes Status: Acute Code(s): C91.90 - LYMPHOID LEUKEMIA, UNSPECIFIED NOT HAVING ACHIEVED REMISSION SNOMED Code(s): 66719011 (3) Pancytopenia Narrative/Plan: As noted above. Neutrophil count continues to be essentially unmeasurable. Hemoglobin has dropped further into the 7 range. Bone marrow aspiration biopsy has been planned for further workup. Continue IV steroids in the meantime, along with monitoring and supportive transfusions as needed, to keep hemoglobin greater than 7 and platelets greater than 10 Current Visit: Yes Status: Acute Code(s): D61.818 - OTHER PANCYTOPENIA SNOMED Code(s): 027588331 (4) Breast cancer Current Visit: Yes Status: Acute Code(s): C50.919 - MALIGNANT NEOPLASM OF UNSP SITE OF UNSPECIFIED FEMALE BREAST SNOMED Code(s): 891618392 (5) Gastrointestinal stromal neoplasm Current Visit: Yes Status: Acute Code(s): C49.A0 - GASTROINTESTINAL STROMAL TUMOR, UNSPECIFIED SITE SNOMED Code(s): 238138018
[2019-04-28] MEDS ORDERED: LIDOCAINE 1% 20 ML VIAL (10MG/ML) FOR IV START INTRADERMA PRN (19:54)
[2019-04-28 20:35] LABS: Glucose,Whole Blood 233 mg/dL (75-99)
[2019-04-28] MEDS: ATORVASTATIN 40 MG TAB PO SCH (21:36)
[2019-04-29] MEDS: methylPREDNISolone SOD SUCCI 125 MG/2 ML VIAL IV SCH ×5 (01:17→23:20)
[2019-04-29 05:50] LABS: Glucose,Whole Blood 191 mg/dL (75-99)
[2019-04-29] MEDS: INSULIN ASPART (NovoLOG) 100 UNIT/ML VIAL SQ SCH ×4 (06:09→21:47)
[2019-04-29] MEDS: PANTOPRAZOLE 40 MG TABLET PO SCH ×2 (06:09→17:32)
[2019-04-29] MEDS: LACTATED RINGERS 1,000 ML IV SCH ×2 (06:10→21:25)
[2019-04-29 06:30] LABS: HCT 22.3 % (34.0-46.0); HGB 7.5 gm/dL (11.4-16.0); MCH 34.4 pg (25.0-35.0); MCHC 33.5 g/dL (31.0-37.0); MCV 102.8 fL (80.0-100.0); Macrocytosis Slight; Mean Platelet Volume 7.8; RBC 2.17 m/uL (3.80-5.40); RDW 15.2 % (11.5-15.5)
[2019-04-29 06:42] LABS: African American GFR (CKD) >90 (>60 ml/min/1.73 sqM); Anion Gap 9 mmol/L; Blood Urea Nitrogen 25 mg/dL (7-17); Carbon Dioxide 26 mmol/L (22-30); Chloride 107 mmol/L (98-107); Glucose 170 mg/dL (74-99); Potassium 3.7 mmol/L (3.5-5.1); Sodium 142 mmol/L (137-145)
[2019-04-29 06:55] LABS: Platelet Count 12 k/uL (150-450)
[2019-04-29] MEDS: FERROUS SULFATE 325 MG TAB PO SCH (08:45)
[2019-04-29] MEDS: ANASTROZOLE 1 MG TAB PO SCH (08:45)
[2019-04-29] MEDS: amLODIPine 5 MG TAB PO SCH ×2 (08:45→21:24)
[2019-04-29] MEDS: DOCUSATE 100 MG CAP PO SCH (08:45)
--- NOTE | 2019-04-29 09:14 | P.PN ---
Subjective s a 73-year-old female with a known history of hypertension, hyperlipidemia and CLL and history of breast cancer in 2014 status post chemoradiation and surgery who is currently being treated for CLL with imatinab and is on follow-up with Dr. Oliva as an outpatient was sent to Hospital due to thrombocytopenia. Patient had blood workup done at oncologist office and was found have platelet count 1000. Patient says that she has been developing rash over her hands and feet since yesterday evening. Denied any complaints of nosebleed, hematemesis or melena. Hemoglobin is 8.7. Patient was sent to ER for platelet transfusion and close monitoring. Denied any complaints of chest pain currently. No nausea vomiting or diarrhea. No headache or dizziness or lightheadedness. Patient received platelets and white count went up to 19,000. 04/28/2019 patient doesn't complain of any chest pain racing heart She still has petechial rashes in her mouth and her skin all over She does not complain of any bleeding from anywhere, no headache, no ne urological symptoms 04/29/2019 Patient platelets has gone up to 12,000 She is going for bone marrow biopsy today Does not complain of any bleeding from anywhere, no headache, no neurological symptoms, No chest pain or racing heart Objective - Vital Signs Vital signs: Vital Signs Temp 98.4 F 04/29/19 08:00 Pulse 64 04/29/19 08:00 Resp 18 04/29/19 08:00 BP 145/67 04/29/19 08:00 Pulse Ox 98 04/29/19 08:00 Intake & Output 04/28/19 04/29/19 04/29/19 18:59 06:59 18:59 Intake Total 720 318 Output Total 1200 Balance -480 318 Weight 103.7 kg Intake: Oral 720 Blood Product 318 Platelet Pheresis Acda2 318 Unit [id number] Output: Urine 1200 Other: Voiding Method Toilet Toilet Toilet # Voids 1 - Exam On exam, alert and oriented x3. HEENT: Conjunctivae normal. eyes normal. Patient is having petechiae in her mouth inside her cheek NECK: No JVD. No thyroid enlargement. No LNs CARDIOVASCULAR: S1, S2 positive RESPIRATION: Breath sounds are equally both sides no rhonchi or Rales and Wheezing ABDOMEN: Soft, nontender . No guarding. no masses palpable. No ascites, No hepatosplenomegaly.Bowel sounds heard. LEGS: No edema. no swelling NERVOUS SYSTEM: Cranial N 2-12 grossly normal. Moves all 4 limbs. No focal deficits. No sensory deficit. No signs of cerebellar dysfucntion. Skin: Patient is having petechial rash all over the body - Labs CBC & Chem 7: 04/29/19 06:10 04/29/19 06:10 Labs: Abnormal Lab Results - Last 24 Hours (Table) 04/28/19 04/28/19 04/28/19 Range/Units 11:50 16:50 20:33 WBC (3.8-10.6) k/uL RBC (3.80-5.40) m/uL Hgb (11.4-16.0) gm/dL Hct (34.0-46.0) % MCV (80.0-100.0) fL Plt Count (150-450) k/uL BUN (7-17) mg/dL Glucose (74-99) mg/dL POC Glucose (mg/dL) 171 H 194 H 233 H (75-99) mg/dL 04/29/19 04/29/19 04/29/19 Range/Units 05:49 06:10 06:10 WBC 58.0 H* (3.8-10.6) k/uL RBC 2.17 L (3.80-5.40) m/uL Hgb 7.5 L (11.4-16.0) gm/dL Hct 22.3 L (34.0-46.0) % MCV 102.8 H (80.0-100.0) fL Plt Count 12 L* D (150-450) k/uL BUN 25 H (7-17) mg/dL Glucose 170 H (74-99) mg/dL POC Glucose (mg/dL) 191 H (75-99) mg/dL Assessment and Plan Plan: - Thrombocytopenia - 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 Platelets up to 12,000 - We'll continue rest of the medical care - we'll see her again after she is back from bone marrow biopsy
[2019-04-29] MEDS ORDERED: PROPOFOL 10 MG/ML 20 ML VIAL IV ONE (12:03)
[2019-04-29] MEDS ORDERED: fentaNYL (PF) 50 MCG/ML 2 ML AMP ONE (12:03)
[2019-04-29] MEDS ORDERED: IV FLUID CONTINUATION 1,000 ML IV ONE (12:03)
[2019-04-29] MEDS ORDERED: LIDOCAINE 1% INJ 10MG/ML (20 ML MDV) ONE (12:03)
--- NOTE | 2019-04-29 12:37 | P.PCN ---
Date of Procedure: 04/29/19 Preoperative Diagnosis: CLL with progression, few pancytopenia, possible ITP Postoperative Diagnosis: Same Procedure(s) Performed: Bone marrow aspiration biopsy Anesthesia: MAC (mayra) Surgeon: Tomy Oliva [employer] #1: Stated None Pathology: other Condition: stable Disposition: floor Indications for Procedure: Known history of CLL. New onset severe thrombo cytopenia, possible ITP, also new onset pancytopenia. Progression of CLL. Operative Findings: Adequate samples Description of Procedure: The procedure and indications were discussed in detail with the patient on the floor. Informed consent was obtained on the floor. She was brought to the outpatient endoscopy suite and placed in the left lateral decubitus position. The area over both posterior iliac crest was cleaned and prepped with chlorhexidine and sterile draping. IV sedation was then initiated. ecf sister to the right posterior I'll request with lidocaine. A Jamshidi needle was then inserted and bone marrow aspirate and biopsy obtained. The initial biopsy sample was quite small due to which a couple of additional passes were made with additional biopsy sample obtained. On withdrawal of the needle hemostasis was achieved. Blood loss was minimal and recovery from sedation was satisfactory. She appeared to have tolerated the procedure well without any obvious immediate complications.
[2019-04-29 12:58] LABS: Glucose,Whole Blood 168 mg/dL (75-99)
[2019-04-29 15:39] LABS: Reticulocyte % 0.4 % (0.5-2.0)
[2019-04-29 17:29] LABS: Glucose,Whole Blood 187 mg/dL (75-99)
[2019-04-29] MEDS: ATORVASTATIN 40 MG TAB PO SCH (21:24)
[2019-04-29 21:40] LABS: Glucose,Whole Blood 161 mg/dL (75-99)
[2019-04-30] MEDS: methylPREDNISolone SOD SUCCI 125 MG/2 ML VIAL IV SCH ×2 (07:01→14:39)
[2019-04-30] MEDS: PANTOPRAZOLE 40 MG TABLET PO SCH ×2 (07:01→16:44)
[2019-04-30] MEDS: INSULIN ASPART (NovoLOG) 100 UNIT/ML VIAL SQ SCH ×4 (07:04→20:49)
[2019-04-30 07:17] LABS: Glucose,Whole Blood 177 mg/dL (75-99)
[2019-04-30] MEDS: ANASTROZOLE 1 MG TAB PO SCH (08:01)
[2019-04-30] MEDS: amLODIPine 5 MG TAB PO SCH ×2 (08:01→20:44)
[2019-04-30] MEDS: FERROUS SULFATE 325 MG TAB PO SCH (08:01)
[2019-04-30] MEDS: DOCUSATE 100 MG CAP PO SCH (08:02)
[2019-04-30 08:47] LABS: Anisocytosis Slight; HCT 20.5 % (34.0-46.0); MCH 34.4 pg (25.0-35.0); MCHC 33.5 g/dL (31.0-37.0); MCV 102.9 fL (80.0-100.0); Macrocytosis Moderate; Mean Platelet Volume 9.8; RBC 1.99 m/uL (3.80-5.40); RDW 16.9 % (11.5-15.5)
[2019-04-30 08:49] LABS: WBC 58.4 k/uL (3.8-10.6)
[2019-04-30 08:53] LABS: Platelet Count 4 k/uL (150-450)
[2019-04-30 10:27] LABS: Band Neutrophils % 1 %; Lymphocytes # (M) 56.65 k/uL (1.0-4.8); Neutrophils % (M) 2 %; Nucleated Red Blood Cells 0 /100 WBC (0-0); Total Cells Counted 100
[2019-04-30 10:28] LABS: Poikilocytosis (M) Present
--- NOTE | 2019-04-30 11:46 | P.PN ---
Subjective s a 73-year-old female with a known history of hypertension, hyperlipidemia and CLL and history of breast cancer in 2014 status post chemoradiation and surgery who is currently being treated for CLL with imatinab and is on follow-up with Dr. Oliva as an outpatient was sent to Hospital due to thrombocytopenia. Patient had blood workup done at oncologist office and was found have platelet count 1000. Patient says that she has been developing rash over her hands and feet since yesterday evening. Denied any complaints of nosebleed, hematemesis or melena. Hemoglobin is 8.7. Patient was sent to ER for platelet transfusion and close monitoring. Denied any complaints of chest pain currently. No nausea vomiting or diarrhea. No headache or dizziness or lightheadedness. Patient received platelets and white count went up to 19,000. 04/28/2019 patient doesn't complain of any chest pain racing heart She still has petechial rashes in her mouth and her skin all over She does not complain of any bleeding from anywhere, no headache, no ne urological symptoms 04/29/2019 Patient platelets has gone up to 12,000 She is going for bone marrow biopsy today Does not complain of any bleeding from anywhere, no headache, no neurological symptoms, No chest pain or racing heart 04/30/2019 Patient platelets are back down to 4000 She had a bone marrow biopsy yesterday She has a small hematoma at the tip of the left index finger at the site of n eedle puncture for blood sugar testing She otherwise does not complain of any bleeding from anywhere else, no headache, no loss of vision or blurry vision, no neurological symptoms Objective - Vital Signs Vital signs: Vital Signs Temp 98.6 F 04/30/19 11:03 Pulse 69 04/30/19 11:03 Resp 16 04/30/19 11:03 BP 164/72 04/30/19 11:03 Pulse Ox 96 04/30/19 11:03 Intake & Output 04/29/19 04/30/19 04/30/19 18:59 06:59 18:59 Intake Total 780 380 240 Output Total 300 800 Balance 480 -420 240 Weight 103.3 kg Intake: IV 300 Intake, IV Titration 140 Amount Lactated Ringers 1,000 ml 140 @ 20 mls/hr IV .Q24H [facility] Rx#:[id number] Oral 480 240 240 Blood Product 0 Rc As-3 Unit 0 [id number] Output: Urine 300 800 Other: Voiding Method Toilet Toilet # Voids 2 - Exam On exam, alert and oriented x3. HEENT: Conjunctivae normal. eyes normal. Patient is having petechiae in her mouth inside her cheek NECK: No JVD. No thyroid enlargement. No LNs CARDIOVASCULAR: S1, S2 positive RESPIRATION: Breath sounds are equally both sides no rhonchi or Rales and Wheezing ABDOMEN: Soft, nontender . No guarding. no masses palpable. No ascites, No hepatosplenomegaly.Bowel sounds heard. LEGS: No edema. no swelling NERVOUS SYSTEM: Cranial N 2-12 grossly normal. Moves all 4 limbs. No focal deficits. No sensory deficit. No signs of cerebellar dysfucntion. Skin: Patient is having petechial rash all over the body. She has 2 small hematomas at the tip of the index finger on the left hand - Labs CBC & Chem 7: 04/30/19 07:11 04/29/19 06:10 Labs: Abnormal Lab Results - Last 24 Hours (Table) 04/29/19 04/29/19 04/29/19 Range/Units 06:10 06:10 12:57 WBC 58.0 H* (3.8-10.6) k/uL RBC 2.17 L (3.80-5.40) m/uL Hgb 7.5 L (11.4-16.0) gm/dL Hct 22.3 L (34.0-46.0) % MCV 102.8 H (80.0-100.0) fL RDW (11.5-15.5) % Plt Count 12 L* D (150-450) k/uL Lymphocytes # (Manual) (1.0-4.8) k/uL Retic Count 0.4 L (0.5-2.0) % POC Glucose (mg/dL) 168 H (75-99) mg/dL Crossmatch 04/29/19 04/29/19 04/30/19 Range/Units 17:26 21:38 07:00 WBC (3.8-10.6) k/uL RBC (3.80-5.40) m/uL Hgb (11.4-16.0) gm/dL Hct (34.0-46.0) % MCV (80.0-100.0) fL RDW (11.5-15.5) % Plt Count (150-450) k/uL Lymphocytes # (Manual) (1.0-4.8) k/uL Retic Count (0.5-2.0) % POC Glucose (mg/dL) 187 H 161 H 177 H (75-99) mg/dL Crossmatch 04/30/19 04/30/19 Range/Units 07:11 09:14 WBC 58.4 H* (3.8-10.6) k/uL RBC 1.99 L (3.80-5.40) m/uL Hgb 6.8 L* (11.4-16.0) gm/dL Hct 20.5 L (34.0-46.0) % MCV 102.9 H (80.0-100.0) fL RDW 16.9 H (11.5-15.5) % Plt Count 4 L* D (150-450) k/uL Lymphocytes # (Manual) 56.65 H (1.0-4.8) k/uL Retic Count (0.5-2.0) % POC Glucose (mg/dL) (75-99) mg/dL Crossmatch See Detail Assessment and Plan Plan: - Thrombocytopenia - 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 Platelets up to 12,000 - We'll continue rest of the medical care - we'll see her again after she is back from bone marrow biopsy 04/30/2019 - Requested to do warm compresses for the hematoma on the index finger - Patient to get platelet transfusion again today - We will repeat the platelets in the morning again - Oncology following the patient. She still on steroids - We'll continue to monitor
[2019-04-30 11:55] LABS: Glucose,Whole Blood 174 mg/dL (75-99)
[2019-04-30] MEDS: predniSONE 20 MG TAB PO SCH (15:06)
--- NOTE | 2019-04-30 15:54 | P.PN ---
Subjective Progress Note Date: 04/30/19 Principal diagnosis: pancytopenia, breast cancer Hx Today in f/u pt has no c/o, she states feeling good. No more wet purpura, petechiae on her shins is improving, denies any bleeding, eating adn drinking well, ambulating independently, no SOB, weakness Objective - Vital Signs Vital signs: Vital Signs Temp 99.7 F H 04/30/19 15:05 Pulse 77 04/30/19 15:05 Resp 18 04/30/19 15:05 BP 142/66 04/30/19 15:05 Pulse Ox 93 L 04/30/19 15:05 Intake & Output 04/29/19 04/30/19 04/30/19 18:59 06:59 18:59 Intake Total 780 380 550 Output Total 300 800 Balance 480 -420 550 Weight 103.3 kg Intake: IV 300 Intake, IV Titration 140 Amount Lactated Ringers 1,000 ml 140 @ 20 mls/hr IV .Q24H [facility] Rx#:[id number] Oral 480 240 240 Blood Product 310 Platelet Irr Pheresis 2 0 Acda Unit [id number] Rc As-3 Unit 310 [id number] Output: Urine 300 800 Other: Voiding Method Toilet Toilet # Voids 2 2 # Bowel Movements 1 - Constitutional General appearance: Present: cooperative, no acute distress, obese - EENT EENT Comment(s): 1 wet purpura on left lateral tongue Eyes: Present: anicteric sclerae, EOMI ENT: Present: hearing grossly normal - Respiratory Respiratory: bilateral: CTA - Cardiovascular Rhythm: regular Heart sounds: normal: S1, S2 Abnormal Heart Sounds: Absent: systolic murmur, diastolic murmur, rub, S3 Gallop, S4 Gallop, click, other - Peripheral edema leg Peripheral Edema: bilateral: None - Integumentary Integumentary Comment(s): scattered petechiae on shins, no hematomas - Neurologic Neurologic: Present: CNII-XII intact - Musculoskeletal Musculoskeletal: Present: strength equal bilaterally - Psychiatric Psychiatric: Present: A&O x's 3, appropriate affect, intact judgment & insight - Labs CBC & Chem 7: 04/30/19 07:11 04/29/19 06:10 Labs: Abnormal Lab Results - Last 24 Hours (Table) 0704/29/19 04/30/19 Range/Units 17:26 21:38 07:00 WBC (3.8-10.6) k/uL RBC (3.80-5.40) m/uL Hgb (11.4-16.0) gm/dL Hct (34.0-46.0) % MCV (80.0-100.0) fL RDW (11.5-15.5) % Plt Count (150-450) k/uL Lymphocytes # (Manual) (1.0-4.8) k/uL POC Glucose (mg/dL) 187 H 161 H 177 H (75-99) mg/dL Crossmatch 04/30/19 04/30/19 04/30/19 Range/Units 07:11 09:14 11:50 WBC 58.4 H* (3.8-10.6) k/uL RBC 1.99 L (3.80-5.40) m/uL Hgb 6.8 L* (11.4-16.0) gm/dL Hct 20.5 L (34.0-46.0) % MCV 102.9 H (80.0-100.0) fL RDW 16.9 H (11.5-15.5) % Plt Count 4 L* D (150-450) k/uL Lymphocytes # (Manual) 56.65 H (1.0-4.8) k/uL POC Glucose (mg/dL) 174 H (75-99) mg/dL Crossmatch See Detail Assessment and Plan (1) Pancytopenia Narrative/Plan: S/P bone marrow yesterday, results pending. Pt required platelet transfusion (4,000) and PRBC (6.8). WBC 58.4, stable. Current Visit: Yes Status: Acute Priority: High Code(s): D61.818 - OTHER PANCYTOPENIA SNOMED Code(s): 889485538 (2) CLL (chronic lymphocytic leukemia) Narrative/Plan: S/P bone marrow. Plan is to start Rituxan and Bendeka INOCENTE, unable to start until Sunday. Oral Pred taper started today. Pt has antacid Rx CBC in AM, transfusions PRN. D/C Sunday Current Visit: Yes Status: Acute Priority: High Code(s): C91.90 - LYMPHOID LEUKEMIA, UNSPECIFIED NOT HAVING ACHIEVED REMISSION SNOMED Code(s): 58219987 (3) Breast cancer Narrative/Plan: Cont arimidex and routine f/u, SBE Current Visit: No Status: Chronic Priority: Low Code(s): C50.919 - MALIGNANT NEOPLASM OF UNSP SITE OF UNSPECIFIED FEMALE BREAST SNOMED Code(s): 792702967
[2019-04-30 16:39] LABS: Glucose,Whole Blood 176 mg/dL (75-99)
[2019-04-30 17:18] LABS: HGB 6.8 gm/dL (11.4-16.0)
[2019-04-30] MEDS: ATORVASTATIN 40 MG TAB PO SCH (20:44)
[2019-04-30 20:49] LABS: Glucose,Whole Blood 204 mg/dL (75-99)
[2019-04-30] MEDS: LACTATED RINGERS 1,000 ML IV SCH (20:52)
[2019-04-30] MEDS: NITROGLYCERIN SL TABS 0.4 MG TAB SUBLINGUAL PRN (23:47)
[2019-05-01 06:14] LABS: Anisocytosis Slight; HCT 21.4 % (34.0-46.0); HGB 7.3 gm/dL (11.4-16.0); MCHC 34.1 g/dL (31.0-37.0); Macrocytosis Slight; Mean Platelet Volume 10.8; RBC 2.21 m/uL (3.80-5.40); RDW 18.4 % (11.5-15.5)
[2019-05-01 06:20] LABS: MCV 96.8 fL (80.0-100.0); Platelet Count 5 k/uL (150-450)
[2019-05-01 06:24] LABS: African American GFR (CKD) >90 (>60 ml/min/1.73 sqM); Anion Gap 8 mmol/L; Blood Urea Nitrogen 27 mg/dL (7-17); Calcium 7.9 mg/dL (8.4-10.2); Carbon Dioxide 28 mmol/L (22-30); Chloride 103 mmol/L (98-107); Glucose 126 mg/dL (74-99); Sodium 139 mmol/L (137-145)
[2019-05-01 06:31] LABS: Glucose,Whole Blood 130 mg/dL (75-99)
[2019-05-01] MEDS: INSULIN ASPART (NovoLOG) 100 UNIT/ML VIAL SQ SCH ×4 (06:31→21:15)
[2019-05-01] MEDS: PANTOPRAZOLE 40 MG TABLET PO SCH ×2 (06:32→17:01)
[2019-05-01] MEDS: predniSONE 20 MG TAB PO SCH (08:54)
[2019-05-01] MEDS: amLODIPine 5 MG TAB PO SCH ×2 (08:54→20:51)
[2019-05-01] MEDS: FERROUS SULFATE 325 MG TAB PO SCH (08:54)
[2019-05-01] MEDS: NITROGLYCERIN SL TABS 0.4 MG TAB SUBLINGUAL PRN (08:54)
[2019-05-01] MEDS: DOCUSATE 100 MG CAP PO SCH (08:54)
[2019-05-01] MEDS: ANASTROZOLE 1 MG TAB PO SCH (08:57)
[2019-05-01] MEDS: ACETAMINOPHEN TAB 325 MG TAB PO PRN ×2 (09:27→18:15)
--- NOTE | 2019-05-01 09:42 | XR ---
EXAMINATION TYPE: XR chest 1V DATE OF EXAM: 05/01/2019 CLINICAL HISTORY: Difficulty breathing and congestion. TECHNIQUE: Single AP portable semiupright view of the chest is obtained. COMPARISON: Chest x-ray and CTA chest from April 26, 2016 FINDINGS: Stable left internal jugular Mediport catheter. Persistent cardiomegaly. New moderate cent ral vascular congestion with small left pleural effusion and associated left base atelectasis and/or infiltrate. Osseous structures are intact. IMPRESSION: Confirmation of CHF exacerbation or fluid overload status there is stable mild cardiomega ly with new moderate central vascular congestion and central alveolar edema felt present. In addition there is new small left pleural effusion with associated left base atelectasis and/or infiltrate not ed. Progress study advised.
[2019-05-01] MEDS: DOXYCYCLINE 100 MG in SODIUM CHLORIDE 0.9% 100 ML IVPB SCH ×2 (10:35→20:52)
[2019-05-01 11:19] LABS: Appearance,Urine Clear (Clear); Bilirubin,Urine Negative (Negative); Blood,Urine Trace (Negative); Color,Urine Yellow; Glucose,Urine (UA) Negative (Negative); Ketones,Urine Negative (Negative); Leukocyte Esterase,Urine Negative (Negative); Nitrite,Urine Negative (Negative); PH, Urine 6.5 (5.0-8.0); Protein,Urine Trace (Negative); RBC,Urine 3 /hpf (0-5); Specific Gravity,Urine 1.014 (1.001-1.035); Urobilinogen,Urine <2.0 mg/dL (<2.0); WBC,Urine 1 /hpf (0-5)
[2019-05-01 12:04] LABS: Glucose,Whole Blood 155 mg/dL (75-99)
[2019-05-01] MEDS ORDERED: VANCOMYCIN IV PER PHARMACY 1 EACH MISC MISCELLANE PRN (13:24)
[2019-05-01] MEDS ORDERED: VANCOMYCIN 1,750 MG in SODIUM CHLORIDE 0.9% 500 ML 500 ML IVPB STA (13:29)
[2019-05-01 16:23] LABS: Anisocytosis Slight; MCH 33.5 pg (25.0-35.0); MCHC 34.3 g/dL (31.0-37.0); MCV 97.6 fL (80.0-100.0); Macrocytosis Slight; RBC 1.93 m/uL (3.80-5.40); RDW 19.5 % (11.5-15.5); WBC 38.8 k/uL (3.8-10.6)
[2019-05-01 16:27] LABS: HCT 18.9 % (34.0-46.0)
[2019-05-01 16:28] LABS: HGB 6.5 gm/dL (11.4-16.0); Platelet Count 12 k/uL (150-450)
[2019-05-01] MEDS: CEFEPIME 2 GM in SODIUM CHLORIDE 0.9% 100 ML IVPB SCH ×2 (17:01→23:01)
[2019-05-01 17:06] LABS: Glucose,Whole Blood 166 mg/dL (75-99)
--- NOTE | 2019-05-01 17:06 | P.PN ---
Subjective Progress Note Date: 05/01/19 Principal diagnosis: pancytopenia, breast cancer Hx Today in f/u pt has no c/o, she did have fever and was hot but feels better now, she denies any bleeding. Oral intake is good, ambulating Objective - Vital Signs Vital signs: Vital Signs Temp 98.7 F 05/01/19 13:34 Pulse 98 05/01/19 13:34 Resp 18 05/01/19 13:34 BP 115/66 05/01/19 13:34 Pulse Ox 95 05/01/19 10:52 Intake & Output 04/30/19 05/01/19 05/01/19 18:59 06:59 18:59 Intake Total 1149 322 Output Total 300 Balance 1149 -300 322 Weight 86.5 kg 86.5 kg Intake: Oral 480 Blood Product 669 322 Platelet Irr Pheresis 2 359 Acda Unit [id number] Platelet Irr Pheresis 322 Acda1 Unit [id number] Rc As-3 Unit 310 [id number] Output: Urine 300 Other: Voiding Method Toilet # Voids 2 1 # Bowel Movements 1 - Constitutional General appearance: Present: cooperative, no acute distress, obese - EENT Eyes: Present: anicteric sclerae, EOMI ENT: Present: hearing grossly normal - Respiratory Respiratory: bilateral: CTA - Cardiovascular Heart sounds: normal: S1, S2 - Gastrointestinal General gastrointestinal: Present: normal bowel sounds, soft - Neurologic Neurologic: Present: CNII-XII intact - Musculoskeletal Musculoskeletal: Present: strength equal bilaterally - Psychiatric Psychiatric: Present: A&O x's 3, appropriate affect, intact judgment & insight - Labs CBC & Chem 7: 05/01/19 15:48 05/01/19 06:05 Labs: Abnormal Lab Results - Last 24 Hours (Table) 04/30/19 04/30/19 04/30/19 Range/Units 07:11 09:14 20:47 WBC (3.8-10.6) k/uL RBC (3.80-5.40) m/uL Hgb 6.8 L* (11.4-16.0) gm/dL Hct (34.0-46.0) % RDW (11.5-15.5) % Plt Count (150-450) k/uL Lymphocytes # (1.0-4.8) k/uL Basophils # (0-0.2) k/uL Potassium (3.5-5.1) mmol/L BUN (7-17) mg/dL Glucose (74-99) mg/dL POC Glucose (mg/dL) 204 H (75-99) mg/dL Calcium (8.4-10.2) mg/dL Urine Protein (Negative) Urine Blood (Negative) Crossmatch See Detail 05/01/19 05/01/19 05/01/19 Range/Units 06:05 06:05 06:29 WBC 53.0 H* (3.8-10.6) k/uL RBC 2.21 L (3.80-5.40) m/uL Hgb 7.3 L (11.4-16.0) gm/dL Hct 21.4 L (34.0-46.0) % RDW 18.4 H (11.5-15.5) % Plt Count 5 L* (150-450) k/uL Lymphocytes # (1.0-4.8) k/uL Basophils # (0-0.2) k/uL Potassium 3.0 L (3.5-5.1) mmol/L BUN 27 H (7-17) mg/dL Glucose 126 H (74-99) mg/dL POC Glucose (mg/dL) 130 H (75-99) mg/dL Calcium 7.9 L (8.4-10.2) mg/dL Urine Protein (Negative) Urine Blood (Negative) Crossmatch 05/01/19 05/01/19 05/01/19 Range/Units 10:43 12:01 15:48 WBC 38.8 H (3.8-10.6) k/uL RBC 1.93 L (3.80-5.40) m/uL Hgb 6.5 L* (11.4-16.0) gm/dL Hct 18.9 L* (34.0-46.0) % RDW 19.5 H (11.5-15.5) % Plt Count 12 L* D (150-450) k/uL Lymphocytes # 35.8 H (1.0-4.8) k/uL Basophils # 0.6 H (0-0.2) k/uL Potassium (3.5-5.1) mmol/L BUN (7-17) mg/dL Glucose (74-99) mg/dL POC Glucose (mg/dL) 155 H (75-99) mg/dL Calcium (8.4-10.2) mg/dL Urine Protein Trace H (Negative) Urine Blood Trace H (Negative) Crossmatch - Imaging and Cardiology Chest x-ray: report reviewed Assessment and Plan (1) Febrile neutropenia Narrative/Plan: Pancultures ordered, empiric antibiotics with cefepime and vancomycin, ID consulted. Current Visit: Yes Status: Acute Priority: High Code(s): D70.9 - NEUTROPENIA, UNSPECIFIED; R50.81 - FEVER PRESENTING WITH CONDITIONS CLASSIFIED ELSEWHERE SNOMED Code(s): 053697159 (2) CLL (chronic lymphocytic leukemia) Narrative/Plan: Patient is status post bone marrow biopsy and aspirate, pending preliminary results, Dr. Oliva hopes to have within the next day or 2. Case was discussed with Pharmacy. Due to patient's instability she will likely have to receive her first cycle of treatment inpatient. NCCN guidelines were faxed with recommended drugs and dosing. As long as patient does not become septic, fever pattern abates and pancultures are negative at 48 hours, treatment may be considered to begin on Sunday or Sunday. Current Visit: Yes Status: Acute Priority: High Code(s): C91.90 - LYMPHOID LEUKEMIA, UNSPECIFIED NOT HAVING ACHIEVED REMISSION SNOMED Code(s): 90131690 (3) Pancytopenia Narrative/Plan: Patient given 1 unit of single donor platelets for a platelet count of 5000 today, 12,000 after infusion, there are 2 more unit available. Hemoglobin 6.5 on afternoon draw, 1 unit is pending transfusion Current Visit: Yes Status: Acute Priority: High Code(s): D61.818 - OTHER PANCYTOPENIA SNOMED Code(s): 503480713 (4) Breast cancer Narrative/Plan: Cont arimidex and routine f/u, SBE Current Visit: No Status: Chronic Priority: Low Code(s): C50.919 - MALIGNANT NEOPLASM OF UNSP SITE OF UNSPECIFIED FEMALE BREAST SNOMED Code(s): 156722076
[2019-05-01 17:45] LABS: Band Neutrophils % 1 %; Lymphocytes # (M) 38.02 k/uL (1.0-4.8); Neutrophils % (M) 1 %; Nucleated Red Blood Cells 0 /100 WBC (0-0); Total Cells Counted 100
[2019-05-01] MEDS: LACTATED RINGERS 1,000 ML IV SCH (18:13)
[2019-05-01] MEDS ORDERED: Potassium Replacement Protocol 1 EACH MISC MISCELLANE PRN (18:41)
[2019-05-01] MEDS: POTASSIUM CHLORIDE ER 20 MEQ TAB.ER PO SCH (18:56)
[2019-05-01 19:26] LABS: Appearance,Urine Clear (Clear); Bilirubin,Urine Negative (Negative); Blood,Urine Negative (Negative); Color,Urine Yellow; Glucose,Urine (UA) Negative (Negative); Ketones,Urine Negative (Negative); Leukocyte Esterase,Urine Negative (Negative); Nitrite,Urine Negative (Negative); PH, Urine 5.5 (5.0-8.0); Protein,Urine Trace (Negative); Specific Gravity,Urine 1.016 (1.001-1.035); Urobilinogen,Urine <2.0 mg/dL (<2.0)
[2019-05-01] MEDS: ATORVASTATIN 40 MG TAB PO SCH (20:51)
[2019-05-01 21:00] LABS: Glucose,Whole Blood 166 mg/dL (75-99)
[2019-05-01] MEDS: ONDANSETRON 4 MG/2 ML VIAL IVP PRN (23:06)
[2019-05-01] MEDS ORDERED: FUROSEMIDE 10 MG/ML 4 ML VIAL IV STA (23:12)
[2019-05-01] MEDS: IPRATROPIUM-ALBUTEROL 3 ML NEB INHALATION SCH (23:36)
--- NOTE | 2019-05-01 23:54 | P.CONS ---
History of Present Illness - Reason for Consult Consult date: 05/01/19 Fever Requesting physician: Ronald Vergara - Chief Complaint Low platelet count on admission, fever starting 05/01/2019 - History of Present Illness Patient is a 73-year-old female with a past medical history significant for CLL patient was evaluated in outpatient setting for rash and the patient did have a CBC today shows a platelet count of 1000 subsequently the patient was sent to the ER for admission on 04/25/2019 since then hasn't patient received multiple platelet transfusions in addition to the blood transfusion in this patient who was afebrile on admission did spike a fever of 102F this morning, the patient has been complaining of some chills associated with it and shortness of breath patient also have a cough which is mild to moderate intensity with occasional sputum production which is mostly pink in color no purulence no nausea no vomiting no choking on the food no abdominal pain and no diarrhea patient did have blood cultures obtained which are currently pending UA was negative chest x-ray with evidence of possible CHF left sided effusion and compressive atelectasis versus infiltrate patient has been started on cefepime and vancomycin and doxycycline infectious disease was consulted for further recommendation for antibiotic therapy Review of Systems Positive points has been mentioned in HPI rest of the systems are negative Past Medical History Past Medical History: Cancer, Hyperlipidemia, Hypertension, Osteoarthritis (OA) Additional Past Medical History / Comment(s): hx. breast cancer 2013 w/lumpectomy, chemo & radiation, new dx. chronic lymphocytic leukemia(CLL), DJD History of Any Multi-Drug Resistant Organisms: None Reported Past Surgical History: Bladder Surgery, Breast Surgery, Joint Replacement, Tubal Ligation, Uterine Ablation Additional Past Surgical History / Comment(s): 04/18/16 total right knee arthroplasty. Other surgical hx: right breast lumpectomy, bladder suspension, several D & C's Past Anesthesia/Blood Transfusion Reactions: Postoperative Nausea & Vomiting (PONV) Past Psychological History: No Psychological Hx Reported Additional Psychological History / Comment(s): Pt resides with another adult. She is independent. Smoking Status: Former smoker Past Alcohol Use History: None Reported Additional Past Alcohol Use History / Comment(s): quit smoking 1997, smoked for 20 yrs. Past Drug Use History: None Reported - Past Family History Father Family Medical History: Cancer Sister(s) Family Medical History: Cancer Mother Family Medical History: Cancer Medications and Allergies Home Medications Medication Instructions Recorded Confirmed Type Anastrozole [Arimidex] 1 mg PO DAILY 03/28/16 04/25/19 History amLODIPine [Norvasc] 5 mg PO BID 03/28/16 04/25/19 History Pantoprazole Sodium [Protonix] 40 mg PO BID #60 tablet. 04/27/16 04/25/19 Rx Allopurinol [Zyloprim] 300 mg PO DAILY 04/25/19 04/25/19 History Atorvastatin [Lipitor] 40 mg PO HS 04/25/19 04/25/19 History Docusate [Colace] 100 mg PO DAILY 04/25/19 04/25/19 History Ferrous Sulfate [Feosol] 325 mg PO DAILY 04/25/19 04/25/19 History Imatinib Mesylate [Gleevec] 400 mg PO DAILY 04/25/19 04/25/19 History Allergies Allergy/AdvReac Type Severity Reaction Status Date / Time No Known Allergies Allergy Verified 04/25/19 16:19 Physical Exam Vitals: Vital Signs Temp Pulse Pulse Resp BP BP Pulse Ox 05/01/19 13:34 98.7 F 98 18 115/66 05/01/19 13:15 98.7 F 101 H 18 119/64 05/01/19 10:52 102.2 F H 94 18 126/60 95 05/01/19 08:00 102.9 F H 87 18 132/64 93 L 05/01/19 04:00 97.7 F 96 18 147/66 92 L 05/01/19 00:00 100.3 F H 98 19 153/68 92 L 04/30/19 20:00 98.7 F 85 18 150/65 92 L 04/30/19 17:35 97.9 F 80 18 151/74 95 Intake and Output 05/01/19 05/01/19 05/01/19 06:59 14:59 22:59 Intake Total 322 Output Total 300 Balance -300 322 Intake: Blood Product 322 Platelet Irr Pheresis 322 Acda1 Unit [id number] Output: Urine 300 Other: Voiding Method Toilet # Voids 1 Weight 86.5 kg 86.5 kg GENERAL DESCRIPTION: An elderly female lying in bed, no distress. No tachypnea or accessory muscle of respiration use. HEENT: Shows Pallor , no scleral icterus. Oral mucous membrane is dry. No pharyngeal erythema or thrush NECK: Trachea central, no thyromegaly. LUNGS: Unlabored breathing. Decreased breath sound at the base. No wheeze or crackle. HEART: S1, S2, regular rate and rhythm. No loud murmur ABDOMEN: Soft, no tenderness , guarding or rigidity, no organomegaly EXTREMITIES: No edema of feet. SKIN: No rash, no masses palpable. NEUROLOGICAL: The patient is awake, alert, oriented x3, mood and affect normal. Results CBC & Chem 7: 05/01/19 15:48 05/01/19 06:05 Labs: Abnormal Lab Results - Last 24 Hours (Table) 04/30/19 04/30/19 04/30/19 Range/Units 07:11 16:38 20:47 WBC (3.8-10.6) k/uL RBC (3.80-5.40) m/uL Hgb 6.8 L* (11.4-16.0) gm/dL Hct (34.0-46.0) % RDW (11.5-15.5) % Plt Count (150-450) k/uL Potassium (3.5-5.1) mmol/L BUN (7-17) mg/dL Glucose (74-99) mg/dL POC Glucose (mg/dL) 176 H 204 H (75-99) mg/dL Calcium (8.4-10.2) mg/dL Urine Protein (Negative) Urine Blood (Negative) 05/01/19 05/01/19 05/01/19 Range/Units 06:05 06:05 06:29 WBC 53.0 H* (3.8-10.6) k/uL RBC 2.21 L (3.80-5.40) m/uL Hgb 7.3 L (11.4-16.0) gm/dL Hct 21.4 L (34.0-46.0) % RDW 18.4 H (11.5-15.5) % Plt Count 5 L* (150-450) k/uL Potassium 3.0 L (3.5-5.1) mmol/L BUN 27 H (7-17) mg/dL Glucose 126 H (74-99) mg/dL POC Glucose (mg/dL) 130 H (75-99) mg/dL Calcium 7.9 L (8.4-10.2) mg/dL Urine Protein (Negative) Urine Blood (Negative) 05/01/19 05/01/19 Range/Units 10:43 12:01 WBC (3.8-10.6) k/uL RBC (3.80-5.40) m/uL Hgb (11.4-16.0) gm/dL Hct (34.0-46.0) % RDW (11.5-15.5) % Plt Count (150-450) k/uL Potassium (3.5-5.1) mmol/L BUN (7-17) mg/dL Glucose (74-99) mg/dL POC Glucose (mg/dL) 155 H (75-99) mg/dL Calcium (8.4-10.2) mg/dL Urine Protein Trace H (Negative) Urine Blood Trace H (Negative) Assessment and Plan Assessment: 1-patient with fever in this patient who has been admitted hospital with low platelet count in addition to anemia and leukocytosis in a patient with a history of CLL with concern for possible transformation to diffuse days versus ITP related CLL, the source of fever could be multifactorial possibly related to her malignancy versus transfusion however the patient to have respiratory symptoms with evidence of left lower lobe infiltrate concerning for nosocomial pneumonia to be high on the list and will need to cover for resistant gram- positive as well as gram-negative pathogen Plan: 1-we will try to obtain sputum for Gram stain and culture 2--vancomycin pharmacy to dose target trough of 15 while watching her kidney function and Vanco trough closely 3-cefepime 2 g every 8 hours 4-discontinue doxycycline we will follow on clinical condition and culture to further adjust medication if needed Thank you for this consultation will follow this patient along with you Time with Patient: Greater than 30
[2019-05-02] MEDS: ACETAMINOPHEN TAB 325 MG TAB PO PRN (02:59)
[2019-05-02 06:25] LABS: Glucose,Whole Blood 130 mg/dL (75-99)
[2019-05-02] MEDS: PANTOPRAZOLE 40 MG TABLET PO SCH (06:26)
[2019-05-02] MEDS: INSULIN ASPART (NovoLOG) 100 UNIT/ML VIAL SQ SCH ×5 (06:27→23:49)
[2019-05-02 07:16] LABS: Anisocytosis Slight; HCT 21.2 % (34.0-46.0); HGB 7.2 gm/dL (11.4-16.0); MCHC 34.1 g/dL (31.0-37.0); MCV 96.6 fL (80.0-100.0); Macrocytosis Slight; Mean Platelet Volume 13.8; RDW 19.1 % (11.5-15.5)
[2019-05-02 07:26] LABS: INR 1.1 (<1.2); Partial Thromboplastin Time 27.1 sec (22.0-30.0); Prothrombin Time 11.7 sec (9.0-12.0)
[2019-05-02 07:31] LABS: Calcium 6.9 mg/dL (8.4-10.2); Potassium 3.1 mmol/L (3.5-5.1)
[2019-05-02 07:33] LABS: Platelet Count 6 k/uL (150-450)
[2019-05-02 07:56] LABS: Lymphocytes # (M) 36.26 k/uL (1.0-4.8); Monocytes # (M) 0.37 k/uL (0-1.0); Neutrophils % (M) 1 %; Nucleated Red Blood Cells 0 /100 WBC (0-0); Total Cells Counted 100
[2019-05-02] MEDS ORDERED: VANCOMYCIN 1,500 MG in SODIUM CHLORIDE 0.9% 250 ML IVPB SCH (08:00)
[2019-05-02] MEDS: IPRATROPIUM-ALBUTEROL 3 ML NEB INHALATION SCH ×4 (08:33→19:10)
[2019-05-02] MEDS ORDERED: FUROSEMIDE 10 MG/ML 4 ML VIAL IV SCH (09:00)
[2019-05-02] MEDS: CEFEPIME 2 GM in SODIUM CHLORIDE 0.9% 100 ML IVPB SCH ×2 (09:45→15:39)
[2019-05-02] MEDS: DOCUSATE 100 MG CAP PO SCH (09:46)
[2019-05-02] MEDS: predniSONE 20 MG TAB PO SCH (09:46)
[2019-05-02] MEDS: ANASTROZOLE 1 MG TAB PO SCH (09:46)
[2019-05-02] MEDS: amLODIPine 5 MG TAB PO SCH ×2 (09:46→20:15)
[2019-05-02] MEDS: FERROUS SULFATE 325 MG TAB PO SCH (09:46)
--- NOTE | 2019-05-02 11:10 | ECHOF ---
Referral Reason:lv function MEASUREMENTS -------- HEIGHT: 152.4 cm WEIGHT: 86.2 kg BP: 136/73 RVIDd: 3.1 cm (< 3.3) IVSd: 1.1 cm (0.6 - 1.1) LVIDd: 4.7 cm (3.9 - 5.3) LVPWd: 1.0 cm (0.6 - 1.1) IVSs: 1.8 cm LVIDs: 3.1 cm LVPWs: 1.7 cm LA Diam: 3.7 cm (2.7 - 3.8) LAESV Index (A-L): 31.86 ml/m Ao Diam: 3.1 cm (2.0 - 3.7) AV Cusp: 2.2 cm (1.5 - 2.6) MV EXCURSION: 18.395 mm (> 18.000) MV EF SLOPE: 115 mm/s (70 - 150) EPSS: 0.8 cm MV E Fareed: 1.20 m/s MV DecT: 212 ms MV A Fareed: 1.02 m/s MV E/A Ratio: 1.18 AV maxP.93 mmHg AV meanP.83 mmHg RAP: 5.00 mmHg RVSP: 45.29 mmHg FINDINGS -------- Sinus rhythm. This was a technically adequate study. The left ventricular size is normal. There is borderline concentric left ventricular hypertrophy. Overall left ventricular systolic function is normal with, an EF between 60 - 65 %. The right ventricle is normal in size. LA is midly dilated 29-33ml/m2. The right atrium is normal in size. Interatrial and interventricular septum intact. There is mild aortic valve sclerosis. There is mild aortic stenosis present. Peak/mean gradient a cross the Aortic Valve is 16.93mmHg / 8.83mmHg. The mitral valve leaflets are mildly thickened. Mild mitral annular calcification present. Modera te mitral regurgitation is present. Mild tricuspid regurgitation present. There is mild to moderate pulmonary hypertension. The right ventricular systolic pressure, as measured by Doppler, is 45.29mmHg. Trace/mild (physiologic) pulmonic regurgitation. The aortic root size is normal. Normal inferior vena cava with normal inspiratory collapse consistent with estimated right atrial pre ssure of 5 mmHg. The inferior vena cava is mildly dilated. There is no pericardial effusion. CONCLUSIONS -------- 1. Sinus rhythm. 2. This was a technically adequate study. 3. The left ventricular size is normal. 4. There is borderline concentric left ventricular hypertrophy. 5. Overall left ventricular systolic function is normal with, an EF between 60 - 65 %. 6. The right ventricle is normal in size. 7. LA is midly dilated 29-33ml/m2. 8. The right atrium is normal in size. 9. Interatrial and interventricular septum intact. 10. There is mild aortic valve sclerosis. 11. There is mild aortic stenosis present. 12. Peak/mean gradient across the Aortic Valve is 16.93mmHg / 8.83mmHg. 13. The mitral valve leaflets are mildly thickened. 14. Mild mitral annular calcification present. 15. Moderate mitral regurgitation is present. 16. Mild tricuspid regurgitation present. 17. There is mild to moderate pulmonary hypertension. 18. The right ventricular systolic pressure, as measured by Doppler, is 45.29mmHg. 19. Trace/mild (physiologic) pulmonic regurgitation. 20. The aortic root size is normal. 21. Normal inferior vena cava with normal inspiratory collapse consistent with estimated right atrial pressure of 5 mmHg. 22. The inferior vena cava is mildly dilated. 23. There is no pericardial effusion. DIABETES TRAINER: Betsy Lazo RDCS
[2019-05-02] MEDS ORDERED: Potassium Replacement Protocol 1 EACH MISC MISCELLANE PRN (11:51)
[2019-05-02 12:22] LABS: Glucose,Whole Blood 186 mg/dL (75-99)
--- NOTE | 2019-05-02 12:28 | XR ---
EXAMINATION TYPE: XR chest 1V DATE OF EXAM: 05/02/2019 COMPARISON: 05/01/2019 HISTORY: Shortness of breath FINDINGS: There are bilateral pleural effusions with cardiomegaly and bibasilar infiltrate. There is a diffuse interstitial pattern. Left-sided Mediport catheter seen with the tip overlying the SVC. Surgical cli ps overlying the right lateral chest. Arthropathy of the shoulders. IMPRESSION: 1. Diffuse pleural-parenchymal changes which have significantly progressed particularly in the left u pper lobe and right perihilar region. Correlate for diffuse pneumonia versus pulmonary edema.
[2019-05-02] MEDS: POTASSIUM CHLORIDE ER 20 MEQ TAB.ER PO SCH ×4 (12:33→23:49)
[2019-05-02] MEDS: VANCOMYCIN 1,750 MG in SODIUM CHLORIDE 0.9% 500 ML 500 ML IVPB SCH (12:36)
[2019-05-02 12:37] LABS: ABG Base Excess 6.2 mmol/L; ABG HCO3 29 mmol/L (21-25); ABG Oxygen Saturation 91.4 % (94-97); ABG PCO2 35 mmHg (35-45); ABG PH 7.53 (7.35-7.45); ABG TCO2 30 mmol/L (19-24); Allen Test Performed? Yes
[2019-05-02 12:45] LABS: ABG PO2 54 mmHg (83-108)
--- NOTE | 2019-05-02 13:06 | P.PN ---
<Hazel,Tomy - Last Filed: 05/02/19 17:56> Objective - Vital Signs Vital signs: Vital Signs Temp 100.9 F H 05/02/19 17:38 Pulse 80 05/02/19 17:38 Resp 26 H 05/02/19 17:38 BP 117/56 05/02/19 17:38 Pulse Ox 99 05/02/19 17:00 Intake & Output 05/01/19 05/02/19 05/02/19 18:59 06:59 18:59 Intake Total 322 310 260 Output Total 1100 1825 Balance 322 790 -1565 Weight 86.5 kg 102.6 kg Intake: IV 20 .9 20 Oral 240 Blood Product 322 310 0 Platelet Irr Pheresis 322 Acda1 Unit [id number] Platelet Pheresis Acda 0 Unit [id number] Rc As-1 Unit 0 310 [id number] Output: Urine 1100 1825 Other: Voiding Method Indwelling Catheter Indwelling Catheter - Labs CBC & Chem 7: 05/02/19 12:45 05/02/19 12:45 Labs: Abnormal Lab Results - Last 24 Hours (Table) 04/30/19 05/01/19 05/01/19 Range/Units 09:14 17:17 19:00 WBC (3.8-10.6) k/uL RBC (3.80-5.40) m/uL Hgb (11.4-16.0) gm/dL Hct (34.0-46.0) % RDW (11.5-15.5) % Plt Count (150-450) k/uL Neutrophils # (Manual) (1.3-7.7) k/uL Lymphocytes # (Manual) (1.0-4.8) k/uL ABG pH (7.35-7.45) ABG pO2 (83-108) mmHg ABG HCO3 (21-25) mmol/L ABG Total CO2 (19-24) mmol/L ABG O2 Saturation (94-97) % Potassium (3.5-5.1) mmol/L BUN (7-17) mg/dL Glucose (74-99) mg/dL POC Glucose (mg/dL) (75-99) mg/dL Calcium (8.4-10.2) mg/dL Total Bilirubin (0.2-1.3) mg/dL AST (14-36) U/L Troponin I 0.037 H* (0.000-0.034) ng/mL Total Protein (6.3-8.2) g/dL Albumin (3.5-5.0) g/dL Urine Protein Trace H (Negative) Crossmatch See Detail 05/01/19 05/02/19 05/02/19 Range/Units 20:58 06:04 06:04 WBC 37.0 H (3.8-10.6) k/uL RBC 2.20 L (3.80-5.40) m/uL Hgb 7.2 L (11.4-16.0) gm/dL Hct 21.2 L (34.0-46.0) % RDW 19.1 H (11.5-15.5) % Plt Count 6 L* (150-450) k/uL Neutrophils # (Manual) 0.37 L* (1.3-7.7) k/uL Lymphocytes # (Manual) 36.26 H (1.0-4.8) k/uL ABG pH (7.35-7.45) ABG pO2 (83-108) mmHg ABG HCO3 (21-25) mmol/L ABG Total CO2 (19-24) mmol/L ABG O2 Saturation (94-97) % Potassium 3.1 L (3.5-5.1) mmol/L BUN 23 H (7-17) mg/dL Glucose 119 H (74-99) mg/dL POC Glucose (mg/dL) 166 H (75-99) mg/dL Calcium 6.9 L (8.4-10.2) mg/dL Total Bilirubin 2.0 H (0.2-1.3) mg/dL AST 12 L (14-36) U/L Troponin I (0.000-0.034) ng/mL Total Protein 5.0 L (6.3-8.2) g/dL Albumin 3.0 L (3.5-5.0) g/dL Urine Protein (Negative) Crossmatch 05/02/19 05/02/19 05/02/19 Range/Units 06:24 11:57 12:16 WBC (3.8-10.6) k/uL RBC (3.80-5.40) m/uL Hgb (11.4-16.0) gm/dL Hct (34.0-46.0) % RDW (11.5-15.5) % Plt Count (150-450) k/uL Neutrophils # (Manual) (1.3-7.7) k/uL Lymphocytes # (Manual) (1.0-4.8) k/uL ABG pH 7.53 H (7.35-7.45) ABG pO2 54 L* (83-108) mmHg ABG HCO3 29 H (21-25) mmol/L ABG Total CO2 30 H (19-24) mmol/L ABG O2 Saturation 91.4 L (94-97) % Potassium (3.5-5.1) mmol/L BUN (7-17) mg/dL Glucose (74-99) mg/dL POC Glucose (mg/dL) 130 H 186 H (75-99) mg/dL Calcium (8.4-10.2) mg/dL Total Bilirubin (0.2-1.3) mg/dL AST (14-36) U/L Troponin I (0.000-0.034) ng/mL Total Protein (6.3-8.2) g/dL Albumin (3.5-5.0) g/dL Urine Protein (Negative) Crossmatch 05/02/19 05/02/19 05/02/19 Range/Units 12:45 12:45 12:45 WBC 46.5 H (3.8-10.6) k/uL RBC 2.30 L (3.80-5.40) m/uL Hgb 7.4 L (11.4-16.0) gm/dL Hct 22.4 L (34.0-46.0) % RDW 19.2 H (11.5-15.5) % Plt Count 4 L* (150-450) k/uL Neutrophils # (Manual) (1.3-7.7) k/uL Lymphocytes # (Manual) 45.57 H (1.0-4.8) k/uL ABG pH (7.35-7.45) ABG pO2 (83-108) mmHg ABG HCO3 (21-25) mmol/L ABG Total CO2 (19-24) mmol/L ABG O2 Saturation (94-97) % Potassium 3.3 L (3.5-5.1) mmol/L BUN 24 H (7-17) mg/dL Glucose 169 H (74-99) mg/dL POC Glucose (mg/dL) (75-99) mg/dL Calcium 6.9 L (8.4-10.2) mg/dL Total Bilirubin 1.9 H (0.2-1.3) mg/dL AST 12 L (14-36) U/L Troponin I 0.096 H* (0.000-0.034) ng/mL Total Protein 5.4 L (6.3-8.2) g/dL Albumin 3.2 L (3.5-5.0) g/dL Urine Protein (Negative) Crossmatch 05/02/19 05/02/19 Range/Units 13:35 16:52 WBC (3.8-10.6) k/uL RBC (3.80-5.40) m/uL Hgb (11.4-16.0) gm/dL Hct (34.0-46.0) % RDW (11.5-15.5) % Plt Count (150-450) k/uL Neutrophils # (Manual) (1.3-7.7) k/uL Lymphocytes # (Manual) (1.0-4.8) k/uL ABG pH (7.35-7.45) ABG pO2 (83-108) mmHg ABG HCO3 (21-25) mmol/L ABG Total CO2 (19-24) mmol/L ABG O2 Saturation (94-97) % Potassium (3.5-5.1) mmol/L BUN (7-17) mg/dL Glucose (74-99) mg/dL POC Glucose (mg/dL) 192 H 216 H (75-99) mg/dL Calcium (8.4-10.2) mg/dL Total Bilirubin (0.2-1.3) mg/dL AST (14-36) U/L Troponin I (0.000-0.034) ng/mL Total Protein (6.3-8.2) g/dL Albumin (3.5-5.0) g/dL Urine Protein (Negative) Crossmatch Microbiology - Last 24 Hours (Table) 07/18/19 10:02 Blood Culture - Preliminary Blood No Growth after 24 hours Assessment and Plan (1) Thrombocytopenia Current Visit: Yes Status: Acute Code(s): D69.6 - THROMBOCYTOPENIA, UNSPECIFIED SNOMED Code(s): 792384363 (2) CLL (chronic lymphocytic leukemia) Current Visit: Yes Status: Acute Priority: High Code(s): C91.90 - LYMPHOID LEUKEMIA, UNSPECIFIED NOT HAVING ACHIEVED REMISSION SNOMED Code(s): 16791414 (3) Pancytopenia Current Visit: Yes Status: Acute Priority: High Code(s): D61.818 - OTHER PANCYTOPENIA SNOMED Code(s): 235389287 (4) Breast cancer Current Visit: No Status: Chronic Priority: Low Code(s): C50.919 - MALIGNANT NEOPLASM OF UNSP SITE OF UNSPECIFIED FEMALE BREAST SNOMED Code(s): 330877383 (5) Gastrointestinal stromal neoplasm Current Visit: Yes Status: Acute Code(s): C49.A0 - GASTROINTESTINAL STROMAL TUMOR, UNSPECIFIED SITE SNOMED Code(s): 204436807 Plan: Add: Current situation and plan discussed in detail with the patient. Differential diagnosis for her current presentation include sepsis, TRALI, as well as progressive leukemia. Her bone marrow aspiration and biopsy was resulted today and showed no evidence of acute leukemia. However marrow was almost completely involved with CLL. - It was discussed with her that as sepsis and TRALI are somewhat more likely to be the etiology of her current presentation, given the acuity, starting treatment for her CLL at this time would carry potentially increased risk of side effects and bad outcome. Based on this, therefore, even though CLL progression as a cause of her symptoms cannot be totally ruled out, it would be more reasonable to treat sepsis/ TRALI first. She is on broad-spectrum antibiotics, and on aggressive pulmonary support. - Case was also discussed with pathology. Given the possibility of transfusion related lung injury, there was concern regarding the platelet tra nsfusion that was ordered today. However sepsis as a cause of her presentation remains a strong possibility, in which case the patient would be at even higher risk for bleeding with platelet counts less than 10. Therefore based on risk benefit it was recommended to proceed with platelet transfusion while continuing current treatment. In addition transfusion related lung injury is more likely to be unit specific <Lisa Cooley - Last Filed: 05/02/19 20:15> Subjective Progress Note Date: 05/02/19 Principal diagnosis: CLL patient worsening Hypoxia, remains febrile. Objective - Vital Signs Vital signs: Vital Signs Temp 100.2 F H 05/02/19 08:00 Pulse 102 H 05/02/19 08:43 Resp 16 05/02/19 08:00 BP 134/57 05/02/19 08:00 Pulse Ox 92 L 05/02/19 11:36 Intake & Output 05/01/19 05/02/19 05/02/19 18:59 06:59 18:59 Intake Total 322 310 240 Output Total 1100 Balance 322 -790 240 Weight 86.5 kg 102.6 kg Intake: Oral 240 Blood Product 322 310 Platelet Irr Pheresis 322 Acda1 Unit [id number] Rc As-1 Unit 0 310 [id number] Output: Urine 1100 Other: Voiding Method Indwelling Catheter Indwelling Catheter - Exam Gen: alERT Bipap Head: NCNT Lungs: DIminished mild increased effort HR - Tachy Abd Obese soft Ext no edema - Labs CBC & Chem 7: 05/02/19 12:45 05/02/19 12:45 Labs: Abnormal Lab Results - Last 24 Hours (Table) 04/30/19 05/01/19 05/01/19 Range/Units 09:14 15:48 17:05 WBC 38.8 H (3.8-10.6) k/uL RBC 1.93 L (3.80-5.40) m/uL Hgb 6.5 L* (11.4-16.0) gm/dL Hct 18.9 L* (34.0-46.0) % RDW 19.5 H (11.5-15.5) % Plt Count 12 L* D (150-450) k/uL Neutrophils # (Manual) 0.70 L (1.3-7.7) k/uL Lymphocytes # (Manual) 38.02 H (1.0-4.8) k/uL Potassium (3.5-5.1) mmol/L BUN (7-17) mg/dL Glucose (74-99) mg/dL POC Glucose (mg/dL) 166 H (75-99) mg/dL Calcium (8.4-10.2) mg/dL Total Bilirubin (0.2-1.3) mg/dL AST (14-36) U/L Troponin I (0.000-0.034) ng/mL Total Protein (6.3-8.2) g/dL Albumin (3.5-5.0) g/dL Urine Protein (Negative) Crossmatch See Detail 05/01/19 05/01/19 05/01/19 Range/Units 17:17 19:00 20:58 WBC (3.8-10.6) k/uL RBC (3.80-5.40) m/uL Hgb (11.4-16.0) gm/dL Hct (34.0-46.0) % RDW (11.5-15.5) % Plt Count (150-450) k/uL Neutrophils # (Manual) (1.3-7.7) k/uL Lymphocytes # (Manual) (1.0-4.8) k/uL Potassium (3.5-5.1) mmol/L BUN (7-17) mg/dL Glucose (74-99) mg/dL POC Glucose (mg/dL) 166 H (75-99) mg/dL Calcium (8.4-10.2) mg/dL Total Bilirubin (0.2-1.3) mg/dL AST (14-36) U/L Troponin I 0.037 H* (0.000-0.034) ng/mL Total Protein (6.3-8.2) g/dL Albumin (3.5-5.0) g/dL Urine Protein Trace H (Negative) Crossmatch 05/02/19 05/02/19 05/02/19 Range/Units 06:04 06:04 06:24 WBC 37.0 H (3.8-10.6) k/uL RBC 2.20 L (3.80-5.40) m/uL Hgb 7.2 L (11.4-16.0) gm/dL Hct 21.2 L (34.0-46.0) % RDW 19.1 H (11.5-15.5) % Plt Count 6 L* (150-450) k/uL Neutrophils # (Manual) 0.37 L* (1.3-7.7) k/uL Lymphocytes # (Manual) 36.26 H (1.0-4.8) k/uL Potassium 3.1 L (3.5-5.1) mmol/L BUN 23 H (7-17) mg/dL Glucose 119 H (74-99) mg/dL POC Glucose (mg/dL) 130 H (75-99) mg/dL Calcium 6.9 L (8.4-10.2) mg/dL Total Bilirubin 2.0 H (0.2-1.3) mg/dL AST 12 L (14-36) U/L Troponin I (0.000-0.034) ng/mL Total Protein 5.0 L (6.3-8.2) g/dL Albumin 3.0 L (3.5-5.0) g/dL Urine Protein (Negative) Crossmatch 05/02/19 Range/Units 11:57 WBC (3.8-10.6) k/uL RBC (3.80-5.40) m/uL Hgb (11.4-16.0) gm/dL Hct (34.0-46.0) % RDW (11.5-15.5) % Plt Count (150-450) k/uL Neutrophils # (Manual) (1.3-7.7) k/uL Lymphocytes # (Manual) (1.0-4.8) k/uL Potassium (3.5-5.1) mmol/L BUN (7-17) mg/dL Glucose (74-99) mg/dL POC Glucose (mg/dL) 186 H (75-99) mg/dL Calcium (8.4-10.2) mg/dL Total Bilirubin (0.2-1.3) mg/dL AST (14-36) U/L Troponin I (0.000-0.034) ng/mL Total Protein (6.3-8.2) g/dL Albumin (3.5-5.0) g/dL Urine Protein (Negative) Crossmatch Microbiology - Last 24 Hours (Table) 05/01/19 10:02 Blood Culture - Preliminary Blood No Growth after 24 hours Assessment and Plan Plan: Assessment and Recommendations: CLL - Monuitor for Tumor Lysis: - Phos, Uric acid, Mag, LDH NOw SIRS/Sepsis: - ID Following and Broad Spectrum Coverage Febrile Neutropenia: - Await repeat cultrues - Spoke to Dr. Zavala will add anti--fungal coverage, Ho Formulary Eraxis (in place of micofungin) - Add Zarxio Thrombocytopenia: - Repeat Coags - Transfuse Platlets now Anemia: - Secondary to CLL, monitor and transfuse less than 7 Acute Hypoxic Respiratory Failure: - Pulm and ICU evaluation - Likely secondary to sepsis versus other - ID is following - Full Supportive Care Physician Attest I have persformed complete history and physical and devloped complete impression and plan agree with above, please see addendum
[2019-05-02 13:13] LABS: Anisocytosis Slight; HCT 22.4 % (34.0-46.0); HGB 7.4 gm/dL (11.4-16.0); MCH 32.4 pg (25.0-35.0); MCHC 33.3 g/dL (31.0-37.0); MCV 97.4 fL (80.0-100.0); Macrocytosis Slight; Mean Platelet Volume 8.4; RDW 19.2 % (11.5-15.5); WBC 46.5 k/uL (3.8-10.6)
[2019-05-02 13:20] LABS: Platelet Count 4 k/uL (150-450)
[2019-05-02 13:22] LABS: ALT 18 U/L (9-52); AST 12 U/L (14-36); African American GFR (CKD) >90 (>60 ml/min/1.73 sqM); Albumin 3.2 g/dL (3.5-5.0); Alkaline Phosphatase 44 U/L (38-126); Anion Gap 9 mmol/L; Blood Urea Nitrogen 24 mg/dL (7-17); Calcium 6.9 mg/dL (8.4-10.2); Carbon Dioxide 26 mmol/L (22-30); Chloride 102 mmol/L (98-107); Glucose 169 mg/dL (74-99); Phosphorus 2.6 mg/dL (2.5-4.5); Potassium 3.3 mmol/L (3.5-5.1); Sodium 137 mmol/L (137-145); Total Bilirubin 1.9 mg/dL (0.2-1.3); Total Protein 5.4 g/dL (6.3-8.2); Uric Acid 4.5 mg/dL (3.7-7.4)
[2019-05-02 13:30] LABS: INR 1.1 (<1.2); Prothrombin Time 11.3 sec (9.0-12.0)
[2019-05-02 13:40] LABS: Lymphocytes # (M) 45.57 k/uL (1.0-4.8); Monocytes # (M) 0.93 k/uL (0-1.0); Nucleated Red Blood Cells 0 /100 WBC (0-0); Total Cells Counted 100
--- NOTE | 2019-05-02 13:40 | P.CNPUL ---
History of Present Illness Consult date: 05/02/19 Requesting physician: Tomy Oliva Reason for consult: dyspnea, hypoxemia, abnormal CXR/CT Chief complaint: Acute hypoxemic respiratory failure, bilateral pulmonary infiltrates History of present illness: This is 73-year-old white female patient with past medical history of breast cancer status post lumpectomy, chemotherapy and radiation, history of CLL diagnosed in 2018 with chemotherapy in November with good response, gastric resection related to mass in the stomach, with biopsies positive for GI stromal tumor, who was admitted to the hospital on 04/25/2019 with profound thrombocytopenia with platelet count of 1000, abnormal bruising, 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 She was admitted for steroid treatments and platelet transfusions. She also underwent a bone marrow biopsy on 04/29/2019 Dr. Oliva. Patient has received 2 units of packed red blood cells, 2 units of platelets, and 4 units of platelets. Patient started becoming febrile on 04/30/2019, and has been running fevers with a T-max in the last 24 hours of 102.5F. Yesterday she became increasingly hypoxemic, with increasing difficulty breathing and congestion chest x-ray showed cardiomegaly, central vessel congestion and small left pleural effusion with associated atelectasis. Her BNP was elevated at 8050. Patient was started on IV Lasix 40 mg every 12 hours, blood cultures were sent yesterday, and are pending, antibiotic coverage was started with cefepime and vancomycin on 05/01/2019. Today her breathing continued to worsen, she is now on 12 L high flow nasal cannula, with a sat of only 92%, she continues to be febrile, and complaining of difficulty breathing, repeat chest x-ray was taken today, showing diffuse changes that significantly progressed in the left upper lobe and right perihilar region, with the possibility of pneumonia versus pulmonary edema. Echocardiogram showed EF of 60-65%, mild aortic stenosis, moderate mitral regurgitation, [id number] pulmonary hypertension with right-sided pressures of 45.2 mmHg. Stat blood gas was obtained, showing pO2 of 53.8, pCO2 of 34.7, and pH of 7.52, 's was done on FiO2 of 50%, consistent with hypoxemic respiratory failure, acute, will metabolic alkalosis. Patient is being transferred to the intensive care unit, for further management. Continues to be febrile, but hemodynamically stable at this time, blood pressure was 145/69, heart rate of 95, pressures of 18, patient will be placed on BiPAP support with pressures of 12/6 and FiO2 100%. She does have underlying history of severe obstructive sleep apnea with AHI score of 35, and she wears CPAP at home with a pressure of 11 cm of water. Review of Systems All systems: negative Constitutional: Denies chills, Denies fever Eyes: denies blurred vision, denies pain Ears, nose, mouth and throat: Denies headache, Denies sore throat Cardiovascular: Denies chest pain, Denies shortness of breath Respiratory: Reports dyspnea, Denies cough Gastrointestinal: Denies abdominal pain, Denies diarrhea, Denies nausea, Denies vomiting Genitourinary: Denies dysuria, Denies hematuria Musculoskeletal: Denies myalgias Integumentary: Denies pruritus, Denies rash Neurological: Denies numbness, Denies weakness Psychiatric: Denies anxiety, Denies depression Endocrine: Denies fatigue, Denies weight change Hematologic/Lymphatic: Reports easy bruising Past Medical History Past Medical History: Cancer, Hyperlipidemia, Hypertension, Osteoarthritis (OA) Additional Past Medical History / Comment(s): hx. breast cancer 2013 w/lumpectomy, chemo & radiation, new dx. chronic lymphocytic leukemia(CLL), DJD History of Any Multi-Drug Resistant Organisms: None Reported Past Surgical History: Bladder Surgery, Breast Surgery, Joint Replacement, Tubal Ligation, Uterine Ablation Additional Past Surgical History / Comment(s): 04/18/16 total right knee arthroplasty. Other surgical hx: right breast lumpectomy, bladder suspension, several D & C's Past Anesthesia/Blood Transfusion Reactions: Postoperative Nausea & Vomiting (PONV) Past Psychological History: No Psychological Hx Reported Additional Psychological History / Comment(s): Pt resides with another adult. She is independent. Smoking Status: Former smoker Past Alcohol Use History: None Reported Additional Past Alcohol Use History / Comment(s): quit smoking 1997, smoked for 20 yrs. Past Drug Use History: None Reported - Past Family History Father Family Medical History: Cancer Sister(s) Family Medical History: Cancer Mother Family Medical History: Cancer Medications and Allergies Home Medications Medication Instructions Recorded Confirmed Type Anastrozole [Arimidex] 1 mg PO DAILY 03/28/16 04/25/19 History amLODIPine [Norvasc] 5 mg PO BID 03/28/16 04/25/19 History Pantoprazole Sodium [Protonix] 40 mg PO BID #60 tablet.dr 04/27/16 04/25/19 Rx Allopurinol [Zyloprim] 300 mg PO DAILY 04/25/19 04/25/19 History Atorvastatin [Lipitor] 40 mg PO HS 04/25/19 04/25/19 History Docusate [Colace] 100 mg PO DAILY 04/25/19 04/25/19 History Ferrous Sulfate [Feosol] 325 mg PO DAILY 04/25/19 04/25/19 History Imatinib Mesylate [Gleevec] 400 mg PO DAILY 04/25/19 04/25/19 History Allergies Allergy/AdvReac Type Severity Reaction Status Date / Time No Known Allergies Allergy Verified 04/25/19 16:19 Physical Exam Vitals: Vital Signs Temp Pulse Pulse Resp BP BP Pulse Ox 05/02/19 12:00 101.1 F H 95 18 145/69 05/02/19 11:36 92 L 05/02/19 08:43 102 H 05/02/19 08:33 100 05/02/19 08:00 100.2 F H 96 16 134/57 91 L 05/02/19 05:47 99.8 F H 05/02/19 04:20 101.3 F H 05/02/19 03:38 102.5 F H 93 18 136/73 90 L 05/02/19 02:51 90 L 05/02/19 00:41 18 94 L 05/02/19 00:00 101.5 F H 105 H 20 155/73 95 05/01/19 23:41 101 H 05/01/19 23:34 103 H 05/01/19 20:33 100.1 F H 82 18 138/92 91 L 05/01/19 20:00 100.1 F H 82 18 138/92 91 L 05/01/19 18:20 100.2 F H 88 18 148/61 91 L 05/01/19 18:17 100.2 F H 05/01/19 18:10 98.7 F 93 18 147/52 91 L 05/01/19 13:34 98.7 F 98 18 115/66 05/01/19 13:15 98.7 F 101 H 18 119/64 Intake and Output 05/01/19 05/02/19 05/02/19 22:59 06:59 14:59 Intake Total 310 240 Output Total 1100 1000 Balance 310 -1100 -760 Intake: Oral 240 Blood Product 310 Rc As-1 Unit 310 [id number] Output: Urine 1100 1000 Other: Voiding Method Toilet Indwelling Catheter Indwelling Catheter Weight 102.6 kg GENERAL EXAM: Alert, pleasant, 73-year-old white female, on BiPAP support, with pressures of 12/6 and FiO2 100%, comfortable in no apparent distress. HEAD: Normocephalic/atraumatic. EYES: Normal reaction of pupils, equal size. Conjunctiva pink, sclera white. NOSE: Clear with pink turbinates. THROAT: No erythema or exudates. NECK: No masses, no JVD, no thyroid enlargement, no adenopathy. CHEST: No chest wall deformity. Symmetrical expansion. LUNGS:Diminished breath sounds bilaterally, CVS: Regular rate and rhythm, normal S1 and S2, no gallops, no murmurs, no rubs ABDOMEN: Soft, nontender. No hepatosplenomegaly, normal bowel sounds, no guarding or rigidity. EXTREMITIES: No clubbing, no edema, no cyanosis, 2+ pulses and upper and lower extremities. MUSCULOSKELETAL: Muscle strength and tone normal. SPINE: No scoliosis or deformity SKIN: No rashes CENTRAL NERVOUS SYSTEM: Alert and oriented -3. No focal deficits, tone is normal in all 4 extremities. PSYCHIATRIC: Alert and oriented -3. Appropriate affect. Intact judgment and insight. Results - Laboratory Findings CBC and BMP: 05/02/19 12:45 05/02/19 12:45 ABG ABG pH 7.53 (7.35-7.45) H 05/02/19 12:16 ABG pCO2 35 mmHg (35-45) 05/02/19 12:16 ABG pO2 54 mmHg (83-108) L* 05/02/19 12:16 ABG O2 Saturation 91.4 % (94-97) L 05/02/19 12:16 PT/INR, D-dimer PT 11.7 sec (9.0-12.0) 05/02/19 06:04 INR 1.1 (<1.2) 05/02/19 06:04 Abnormal lab findings: Abnormal Labs 04/25/19 04/26/19 04/26/19 17:08 05:43 05:43 WBC 52.6 H* 43.7 H RBC 2.54 L 2.19 L Hgb 8.7 L 7.5 L Hct 25.6 L 22.2 L MCV 100.7 H 101.5 H RDW 17.0 H 16.7 H Plt Count 3 L* 19 L* D Neutrophils # (Manual) 0.53 L 0.44 L* Lymphocytes # (Manual) 52.07 H 43.26 H Retic Count ABG pH ABG pO2 ABG HCO3 ABG Total CO2 ABG O2 Saturation Potassium BUN 25 H Glucose 108 H POC Glucose (mg/dL) Calcium Total Bilirubin AST Troponin I Total Protein Albumin Urine Protein Urine Blood Crossmatch 04/26/19 04/26/19 04/27/19 16:33 20:16 05:16 WBC 63.5 H* RBC 2.69 L Hgb 9.4 L D Hct 27.8 L MCV 103.6 H RDW 15.9 H Plt Count 15 L* Neutrophils # (Manual) 0.00 L* Lymphocytes # (Manual) 63.50 H Retic Count ABG pH ABG pO2 ABG HCO3 ABG Total CO2 ABG O2 Saturation Potassium BUN Glucose POC Glucose (mg/dL) 179 H 218 H Calcium Total Bilirubin AST Troponin I Total Protein Albumin Urine Protein Urine Blood Crossmatch 04/27/19 04/27/19 04/27/19 05:58 11:54 16:36 WBC RBC Hgb Hct MCV RDW Plt Count Neutrophils # (Manual) Lymphocytes # (Manual) Retic Count ABG pH ABG pO2 ABG HCO3 ABG Total CO2 ABG O2 Saturation Potassium BUN Glucose POC Glucose (mg/dL) 179 H 152 H 222 H Calcium Total Bilirubin AST Troponin I Total Protein Albumin Urine Protein Urine Blood Crossmatch 04/27/19 04/28/19 04/28/19 20:28 05:49 05:49 WBC 47.0 H RBC 2.18 L Hgb 7.1 L D Hct 22.5 L MCV 103.3 H RDW 15.9 H Plt Count 6 L* D Neutrophils # (Manual) Lymphocytes # (Manual) 47.00 H Retic Count ABG pH ABG pO2 ABG HCO3 ABG Total CO2 ABG O2 Saturation Potassium BUN 26 H Glucose 179 H POC Glucose (mg/dL) 214 H Calcium Total Bilirubin AST Troponin I Total Protein Albumin Urine Protein Urine Blood Crossmatch 04/28/19 04/28/19 04/28/19 06:24 11:50 16:50 WBC RBC Hgb Hct MCV RDW Plt Count Neutrophils # (Manual) Lymphocytes # (Manual) Retic Count ABG pH ABG pO2 ABG HCO3 ABG Total CO2 ABG O2 Saturation Potassium BUN Glucose POC Glucose (mg/dL) 198 H 171 H 194 H Calcium Total Bilirubin AST Troponin I Total Protein Albumin Urine Protein Urine Blood Crossmatch 04/28/19 04/29/19 04/29/19 20:33 05:49 06:10 WBC 58.0 H* RBC 2.17 L Hgb 7.5 L Hct 22.3 L MCV 102.8 H RDW Plt Count 12 L* D Neutrophils # (Manual) Lymphocytes # (Manual) Retic Count ABG pH ABG pO2 ABG HCO3 ABG Total CO2 ABG O2 Saturation Potassium BUN Glucose POC Glucose (mg/dL) 233 H 191 H Calcium Total Bilirubin AST Troponin I Total Protein Albumin Urine Protein Urine Blood Crossmatch 04/29/19 04/29/19 04/29/19 06:10 06:10 12:57 WBC RBC Hgb Hct MCV RDW Plt Count Neutrophils # (Manual) Lymphocytes # (Manual) Retic Count 0.4 L ABG pH ABG pO2 ABG HCO3 ABG Total CO2 ABG O2 Saturation Potassium BUN 25 H Glucose 170 H POC Glucose (mg/dL) 168 H Calcium Total Bilirubin AST Troponin I Total Protein Albumin Urine Protein Urine Blood Crossmatch 04/29/19 04/29/19 04/30/19 17:26 21:38 07:00 WBC RBC Hgb Hct MCV RDW Plt Count Neutrophils # (Manual) Lymphocytes # (Manual) Retic Count ABG pH ABG pO2 ABG HCO3 ABG Total CO2 ABG O2 Saturation Potassium BUN Glucose POC Glucose (mg/dL) 187 H 161 H 177 H Calcium Total Bilirubin AST Troponin I Total Protein Albumin Urine Protein Urine Blood Crossmatch 04/30/19 04/30/19 04/30/19 07:11 09:14 11:50 WBC 58.4 H* RBC 1.99 L Hgb 6.8 L* Hct 20.5 L MCV 102.9 H RDW 16.9 H Plt Count 4 L* D Neutrophils # (Manual) Lymphocytes # (Manual) 56.65 H Retic Count ABG pH ABG pO2 ABG HCO3 ABG Total CO2 ABG O2 Saturation Potassium BUN Glucose POC Glucose (mg/dL) 174 H Calcium Total Bilirubin AST Troponin I Total Protein Albumin Urine Protein Urine Blood Crossmatch See Detail 04/30/19 04/30/19 05/01/19 16:38 20:47 06:05 WBC 53.0 H* RBC 2.21 L Hgb 7.3 L Hct 21.4 L MCV RDW 18.4 H Plt Count 5 L* Neutrophils # (Manual) Lymphocytes # (Manual) Retic Count ABG pH ABG pO2 ABG HCO3 ABG Total CO2 ABG O2 Saturation Potassium BUN Glucose POC Glucose (mg/dL) 176 H 204 H Calcium Total Bilirubin AST Troponin I Total Protein Albumin Urine Protein Urine Blood Crossmatch 05/01/19 05/01/19 05/01/19 06:05 06:29 10:43 WBC RBC Hgb Hct MCV RDW Plt Count Neutrophils # (Manual) Lymphocytes # (Manual) Retic Count ABG pH ABG pO2 ABG HCO3 ABG Total CO2 ABG O2 Saturation Potassium 3.0 L BUN 27 H Glucose 126 H POC Glucose (mg/dL) 130 H Calcium 7.9 L Total Bilirubin AST Troponin I Total Protein Albumin Urine Protein Trace H Urine Blood Trace H Crossmatch 05/01/19 05/01/19 05/01/19 12:01 15:48 17:05 WBC 38.8 H RBC 1.93 L Hgb 6.5 L* Hct 18.9 L* MCV RDW 19.5 H Plt Count 12 L* D Neutrophils # (Manual) 0.70 L Lymphocytes # (Manual) 38.02 H Retic Count ABG pH ABG pO2 ABG HCO3 ABG Total CO2 ABG O2 Saturation Potassium BUN Glucose POC Glucose (mg/dL) 155 H 166 H Calcium Total Bilirubin AST Troponin I Total Protein Albumin Urine Protein Urine Blood Crossmatch 05/01/19 05/01/19 05/01/19 17:17 19:00 20:58 WBC RBC Hgb Hct MCV RDW Plt Count Neutrophils # (Manual) Lymphocytes # (Manual) Retic Count ABG pH ABG pO2 ABG HCO3 ABG Total CO2 ABG O2 Saturation Potassium BUN Glucose POC Glucose (mg/dL) 166 H Calcium Total Bilirubin AST Troponin I 0.037 H* Total Protein Albumin Urine Protein Trace H Urine Blood Crossmatch 05/02/19 05/02/19 05/02/19 06:04 06:04 06:24 WBC 37.0 H RBC 2.20 L Hgb 7.2 L Hct 21.2 L MCV RDW 19.1 H Plt Count 6 L* Neutrophils # (Manual) 0.37 L* Lymphocytes # (Manual) 36.26 H Retic Count ABG pH ABG pO2 ABG HCO3 ABG Total CO2 ABG O2 Saturation Potassium 3.1 L BUN 23 H Glucose 119 H POC Glucose (mg/dL) 130 H Calcium 6.9 L Total Bilirubin 2.0 H AST 12 L Troponin I Total Protein 5.0 L Albumin 3.0 L Urine Protein Urine Blood Crossmatch 05/02/19 05/02/19 11:57 12:16 WBC RBC Hgb Hct MCV RDW Plt Count Neutrophils # (Manual) Lymphocytes # (Manual) Retic Count ABG pH 7.53 H ABG pO2 54 L* ABG HCO3 29 H ABG Total CO2 30 H ABG O2 Saturation 91.4 L Potassium BUN Glucose POC Glucose (mg/dL) 186 H Calcium Total Bilirubin AST Troponin I Total Protein Albumin Urine Protein Urine Blood Crossmatch - Diagnostic Findings Chest x-ray: report reviewed, image reviewed Additional studies: Echocardiogram results have been reviewed Assessment and Plan Plan: Assessment: #1. Acute hypoxemic respiratory failure related to possibility of bilateral pneumonia, congestive heart failure and the possibility of transfusion related acute lung injury/ARDS #2. Sepsis with the possibility of pneumonia as the source #3. Dyspnea, hypoxemia, fever related to the above #4. Severe thrombocytopenia and anemia, requiring steroids and transfusions with packed red blood cells and platelets #5. History of CLL, with treatment with Rituxan in November #6. Acute congestive heart failure with diastolic dysfunction, cardiogram showed preserved left ventricular systolic function with an EF of 60-65% #7. Troponin leak #8. Moderate mitral regurgitation, mild aortic stenosis, mild to moderate pulmonary hypertension seen on the echocardiogram from 05/01/2019 #9. History of right breast cancer, with lumpectomy and chemotherapy and radiation, patient has been on anastrozole doubt evidence of recurrence #10. Hypertension #11. Hyperlipidemia #12. Former smoker, quit smoking in 1997, smoked for 20 years #13. Severe obstructive sleep apnea, with AHI score of 35, patient is on CPAP t herapy at a pressure of 11 cm of water Plan: Patient will be transferred to the intensive care unit, blood gas was obtained and reviewed, showing hypoxemic respiratory failure, and metabolic alkalosis, patient will be placed on BiPAP with pressures of 12/6 and FiO2 of 100%, wean FiO2 to maintain O2 sat at 92%. We'll increase the IV Lasix to 40 mg 3 times a day, will continue current antibiotic coverage, awaiting results of the blood cultures, obtain a new set of blood cultures, urine culture, sputum culture. Chest X-ray is showing worsening left upper lobe and right perihilar infiltrates, and increased central vascular congestion, pulmonary edema versus pneumonia, and the possibility of transfusion related acute lung injury is not excluded. We contacted the blood bank to alert them about the possibility of TRALI/ARDS and the workup will be started. We'll continue GI and DVT prophyla xis. I performed a history & physical examination of the patient and discussed their management with my nurse practitioner, Molly Easley. I reviewed the nurse practitioner's note and agree with the documented findings and plan of care. Lung sounds are positive for diminished breath sounds. The findings and the impression was discussed with the patient. I attest to the documentation by the nurse practitioner. Time with Patient: Greater than 30
[2019-05-02 13:47] LABS: Glucose,Whole Blood 192 mg/dL (75-99)
--- NOTE | 2019-05-02 13:47 | P.PN ---
Subjective s a 73-year-old female with a known history of hypertension, hyperlipidemia and CLL and history of breast cancer in 2014 status post chemoradiation and surgery who is currently being treated for CLL with imatinab and is on follow-up with Dr. Oliva as an outpatient was sent to Hospital due to thrombocytopenia. Patient had blood workup done at oncologist office and was found have platelet count 1000. Patient says that she has been developing rash over her hands and feet since yesterday evening. Denied any complaints of nosebleed, hematemesis or melena. Hemoglobin is 8.7. Patient was sent to ER for platelet transfusion and close monitoring. Denied any complaints of chest pain currently. No nausea vomiting or diarrhea. No headache or dizziness or lightheadedness. Patient received platelets and white count went up to 19,000. 04/28/2019 patient doesn't complain of any chest pain racing heart She still has petechial rashes in her mouth and her skin all over She does not complain of any bleeding from anywhere, no headache, no ne urological symptoms 04/29/2019 Patient platelets has gone up to 12,000 She is going for bone marrow biopsy today Does not complain of any bleeding from anywhere, no headache, no neurological symptoms, No chest pain or racing heart 04/30/2019 Patient platelets are back down to 4000 She had a bone marrow biopsy yesterday She has a small hematoma at the tip of the left index finger at the site of n eedle puncture for blood sugar testing She otherwise does not complain of any bleeding from anywhere else, no headache, no loss of vision or blurry vision, no neurological symptoms 05/01/2019 Spiking fever this morning Patient was feeling congested this morning and was having cough She was complaining of chest pain in the middle of the chest which is reproducible She does not complain any abdominal pain, no nausea and vomiting no diarrhea constipation Objective - Vital Signs Vital signs: Vital Signs Temp 101.1 F H 05/02/19 12:00 Pulse 94 05/02/19 13:39 Resp 18 05/02/19 12:00 BP 145/69 05/02/19 12:00 Pulse Ox 92 L 05/02/19 11:36 Intake & Output 05/01/19 05/02/19 05/02/19 18:59 06:59 18:59 Intake Total 322 310 240 Output Total 1100 1000 Balance 322 -790 -760 Weight 86.5 kg 102.6 kg Intake: Oral 240 Blood Product 322 310 Platelet Irr Pheresis 322 Acda1 Unit [id number] Rc As-1 Unit 0 310 [id number] Output: Urine 1100 1000 Other: Voiding Method Indwelling Catheter Indwelling Catheter - Exam On exam, alert and oriented x3. HEENT: Conjunctivae normal. eyes normal. Patient is having petechiae in her mouth inside her cheek NECK: No JVD. No thyroid enlargement. No LNs CARDIOVASCULAR: S1, S2 positive RESPIRATION: Breath sounds are equally both sides no rhonchi or Rales and Wheezing ABDOMEN: Soft, nontender . No guarding. no masses palpable. No ascites, No hepatosplenomegaly.Bowel sounds heard. LEGS: No edema. no swelling NERVOUS SYSTEM: Cranial N 2-12 grossly normal. Moves all 4 limbs. No focal deficits. No sensory deficit. No signs of cerebellar dysfucntion. Skin: Patient is having petechial rash all over the body. She has 2 small h ematomas at the tip of the index finger on the left hand - Labs CBC & Chem 7: 05/02/19 12:45 05/02/19 12:45 Labs: Abnormal Lab Results - Last 24 Hours (Table) 04/30/19 05/01/19 05/01/19 Range/Units 09:14 15:48 17:05 WBC 38.8 H (3.8-10.6) k/uL RBC 1.93 L (3.80-5.40) m/uL Hgb 6.5 L* (11.4-16.0) gm/dL Hct 18.9 L* (34.0-46.0) % RDW 19.5 H (11.5-15.5) % Plt Count 12 L* D (150-450) k/uL Neutrophils # (Manual) 0.70 L (1.3-7.7) k/uL Lymphocytes # (Manual) 38.02 H (1.0-4.8) k/uL ABG pH (7.35-7.45) ABG pO2 (83-108) mmHg ABG HCO3 (21-25) mmol/L ABG Total CO2 (19-24) mmol/L ABG O2 Saturation (94-97) % Potassium (3.5-5.1) mmol/L BUN (7-17) mg/dL Glucose (74-99) mg/dL POC Glucose (mg/dL) 166 H (75-99) mg/dL Calcium (8.4-10.2) mg/dL Total Bilirubin (0.2-1.3) mg/dL AST (14-36) U/L Troponin I (0.000-0.034) ng/mL Total Protein (6.3-8.2) g/dL Albumin (3.5-5.0) g/dL Urine Protein (Negative) Crossmatch See Detail 05/01/19 05/01/19 05/01/19 Range/Units 17:17 19:00 20:58 WBC (3.8-10.6) k/uL RBC (3.80-5.40) m/uL Hgb (11.4-16.0) gm/dL Hct (34.0-46.0) % RDW (11.5-15.5) % Plt Count (150-450) k/uL Neutrophils # (Manual) (1.3-7.7) k/uL Lymphocytes # (Manual) (1.0-4.8) k/uL ABG pH (7.35-7.45) ABG pO2 (83-108) mmHg ABG HCO3 (21-25) mmol/L ABG Total CO2 (19-24) mmol/L ABG O2 Saturation (94-97) % Potassium (3.5-5.1) mmol/L BUN (7-17) mg/dL Glucose (74-99) mg/dL POC Glucose (mg/dL) 166 H (75-99) mg/dL Calcium (8.4-10.2) mg/dL Total Bilirubin (0.2-1.3) mg/dL AST (14-36) U/L Troponin I 0.037 H* (0.000-0.034) ng/mL Total Protein (6.3-8.2) g/dL Albumin (3.5-5.0) g/dL Urine Protein Trace H (Negative) Crossmatch 05/02/19 05/02/19 05/02/19 Range/Units 06:04 06:04 06:24 WBC 37.0 H (3.8-10.6) k/uL RBC 2.20 L (3.80-5.40) m/uL Hgb 7.2 L (11.4-16.0) gm/dL Hct 21.2 L (34.0-46.0) % RDW 19.1 H (11.5-15.5) % Plt Count 6 L* (150-450) k/uL Neutrophils # (Manual) 0.37 L* (1.3-7.7) k/uL Lymphocytes # (Manual) 36.26 H (1.0-4.8) k/uL ABG pH (7.35-7.45) ABG pO2 (83-108) mmHg ABG HCO3 (21-25) mmol/L ABG Total CO2 (19-24) mmol/L ABG O2 Saturation (94-97) % Potassium 3.1 L (3.5-5.1) mmol/L BUN 23 H (7-17) mg/dL Glucose 119 H (74-99) mg/dL POC Glucose (mg/dL) 130 H (75-99) mg/dL Calcium 6.9 L (8.4-10.2) mg/dL Total Bilirubin 2.0 H (0.2-1.3) mg/dL AST 12 L (14-36) U/L Troponin I (0.000-0.034) ng/mL Total Protein 5.0 L (6.3-8.2) g/dL Albumin 3.0 L (3.5-5.0) g/dL Urine Protein (Negative) Crossmatch 05/02/19 05/02/19 05/02/19 Range/Units 11:57 12:16 12:45 WBC 46.5 H (3.8-10.6) k/uL RBC 2.30 L (3.80-5.40) m/uL Hgb 7.4 L (11.4-16.0) gm/dL Hct 22.4 L (34.0-46.0) % RDW 19.2 H (11.5-15.5) % Plt Count 4 L* (150-450) k/uL Neutrophils # (Manual) (1.3-7.7) k/uL Lymphocytes # (Manual) 45.57 H (1.0-4.8) k/uL ABG pH 7.53 H (7.35-7.45) ABG pO2 54 L* (83-108) mmHg ABG HCO3 29 H (21-25) mmol/L ABG Total CO2 30 H (19-24) mmol/L ABG O2 Saturation 91.4 L (94-97) % Potassium (3.5-5.1) mmol/L BUN (7-17) mg/dL Glucose (74-99) mg/dL POC Glucose (mg/dL) 186 H (75-99) mg/dL Calcium (8.4-10.2) mg/dL Total Bilirubin (0.2-1.3) mg/dL AST (14-36) U/L Troponin I (0.000-0.034) ng/mL Total Protein (6.3-8.2) g/dL Albumin (3.5-5.0) g/dL Urine Protein (Negative) Crossmatch 05/02/19 Range/Units 12:45 WBC (3.8-10.6) k/uL RBC (3.80-5.40) m/uL Hgb (11.4-16.0) gm/dL Hct (34.0-46.0) % RDW (11.5-15.5) % Plt Count (150-450) k/uL Neutrophils # (Manual) (1.3-7.7) k/uL Lymphocytes # (Manual) (1.0-4.8) k/uL ABG pH (7.35-7.45) ABG pO2 (83-108) mmHg ABG HCO3 (21-25) mmol/L ABG Total CO2 (19-24) mmol/L ABG O2 Saturation (94-97) % Potassium 3.3 L (3.5-5.1) mmol/L BUN 24 H (7-17) mg/dL Glucose 169 H (74-99) mg/dL POC Glucose (mg/dL) (75-99) mg/dL Calcium 6.9 L (8.4-10.2) mg/dL Total Bilirubin 1.9 H (0.2-1.3) mg/dL AST 12 L (14-36) U/L Troponin I (0.000-0.034) ng/mL Total Protein 5.4 L (6.3-8.2) g/dL Albumin 3.2 L (3.5-5.0) g/dL Urine Protein (Negative) Crossmatch Microbiology - Last 24 Hours (Table) 05/01/19 10:02 Blood Culture - Preliminary Blood No Growth after 24 hours Assessment and Plan Plan: - Thrombocytopenia - acute hypoxic respiratory failure probably because of fluid overload versus pneumonia or combination of both - 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 Platelets up to 12,000 - We'll continue rest of the medical care - we'll see her again after she is back from bone marrow biopsy 04/30/2019 - Requested to do warm compresses for the hematoma on the index finger - Patient to get platelet transfusion again today - We will repeat the platelets in the morning again - Oncology following the patient. She still on steroids - We'll continue to monitor 05/01/2019 - Patient is spiking fever this morning - We'll order for blood cultures, sputum cultures, started on vancomycin and cefepime. We'll continue Tylenol - We'll consult infectious disease for the expert recommendations - We'll order for troponin every 6 hours and an echocardiogram - We'll continue current medications and continue platelet transfusion
--- NOTE | 2019-05-02 13:52 | P.PN ---
Subjective s a 73-year-old female with a known history of hypertension, hyperlipidemia and CLL and history of breast cancer in 2014 status post chemoradiation and surgery who is currently being treated for CLL with imatinab and is on follow-up with Dr. Oliva as an outpatient was sent to Hospital due to thrombocytopenia. Patient had blood workup done at oncologist office and was found have platelet count 1000. Patient says that she has been developing rash over her hands and feet since yesterday evening. Denied any complaints of nosebleed, hematemesis or melena. Hemoglobin is 8.7. Patient was sent to ER for platelet transfusion and close monitoring. Denied any complaints of chest pain currently. No nausea vomiting or diarrhea. No headache or dizziness or lightheadedness. Patient received platelets and white count went up to 19,000. 04/28/2019 patient doesn't complain of any chest pain racing heart She still has petechial rashes in her mouth and her skin all over She does not complain of any bleeding from anywhere, no headache, no ne urological symptoms 04/29/2019 Patient platelets has gone up to 12,000 She is going for bone marrow biopsy today Does not complain of any bleeding from anywhere, no headache, no neurological symptoms, No chest pain or racing heart 04/30/2019 Patient platelets are back down to 4000 She had a bone marrow biopsy yesterday She has a small hematoma at the tip of the left index finger at the site of n eedle puncture for blood sugar testing She otherwise does not complain of any bleeding from anywhere else, no headache, no loss of vision or blurry vision, no neurological symptoms 05/01/2019 Spiking fever this morning Patient was feeling congested this morning and was having cough She was complaining of chest pain in the middle of the chest which is reproducible She does not complain any abdominal pain, no nausea and vomiting no diarrhea constipation 05/02/2019 Patient was still spiking fever this morning Antibiotics continued We will start the patient on Lasix 40 mg twice a day The patient looks really ill this morning her oxygen requirements are going up. She still complaining of chest pain. Objective - Vital Signs Vital signs: Vital Signs Temp 101.1 F H 05/02/19 12:00 Pulse 95 05/02/19 13:47 Resp 18 05/02/19 12:00 BP 145/69 05/02/19 12:00 Pulse Ox 92 L 05/02/19 11:36 Intake & Output 05/01/19 05/02/19 05/02/19 18:59 06:59 18:59 Intake Total 322 310 240 Output Total 1100 1000 Balance 322 -790 -760 Weight 86.5 kg 102.6 kg Intake: Oral 240 Blood Product 322 310 Platelet Irr Pheresis 322 Acda1 Unit [id number] Rc As-1 Unit 0 310 [id number] Output: Urine 1100 1000 Other: Voiding Method Indwelling Catheter Indwelling Catheter - Exam On exam, alert and oriented x3. HEENT: Conjunctivae normal. eyes normal. Patient is having petechiae in her mo uth inside her cheek NECK: No JVD. No thyroid enlargement. No LNs CARDIOVASCULAR: S1, S2 positive RESPIRATION: Breath sounds are equally both sides no rhonchi or Rales and Wheezing ABDOMEN: Soft, nontender . No guarding. no masses palpable. No ascites, No hepatosplenomegaly.Bowel sounds heard. LEGS: No edema. no swelling NERVOUS SYSTEM: Cranial N 2-12 grossly normal. Moves all 4 limbs. No focal deficits. No sensory deficit. No signs of cerebellar dysfucntion. Skin: Patient is having petechial rash all over the body. She has 2 small hematomas at the tip of the index finger on the left hand - Labs CBC & Chem 7: 05/02/19 12:45 05/02/19 12:45 Labs: Abnormal Lab Results - Last 24 Hours (Table) 04/30/19 05/01/19 05/01/19 Range/Units 09:14 15:48 17:05 WBC 38.8 H (3.8-10.6) k/uL RBC 1.93 L (3.80-5.40) m/uL Hgb 6.5 L* (11.4-16.0) gm/dL Hct 18.9 L* (34.0-46.0) % RDW 19.5 H (11.5-15.5) % Plt Count 12 L* D (150-450) k/uL Neutrophils # (Manual) 0.70 L (1.3-7.7) k/uL Lymphocytes # (Manual) 38.02 H (1.0-4.8) k/uL ABG pH (7.35-7.45) ABG pO2 (83-108) mmHg ABG HCO3 (21-25) mmol/L ABG Total CO2 (19-24) mmol/L ABG O2 Saturation (94-97) % Potassium (3.5-5.1) mmol/L BUN (7-17) mg/dL Glucose (74-99) mg/dL POC Glucose (mg/dL) 166 H (75-99) mg/dL Calcium (8.4-10.2) mg/dL Total Bilirubin (0.2-1.3) mg/dL AST (14-36) U/L Troponin I (0.000-0.034) ng/mL Total Protein (6.3-8.2) g/dL Albumin (3.5-5.0) g/dL Urine Protein (Negative) Crossmatch See Detail 05/01/19 05/01/19 05/01/19 Range/Units 17:17 19:00 20:58 WBC (3.8-10.6) k/uL RBC (3.80-5.40) m/uL Hgb (11.4-16.0) gm/dL Hct (34.0-46.0) % RDW (11.5-15.5) % Plt Count (150-450) k/uL Neutrophils # (Manual) (1.3-7.7) k/uL Lymphocytes # (Manual) (1.0-4.8) k/uL ABG pH (7.35-7.45) ABG pO2 (83-108) mmHg ABG HCO3 (21-25) mmol/L ABG Total CO2 (19-24) mmol/L ABG O2 Saturation (94-97) % Potassium (3.5-5.1) mmol/L BUN (7-17) mg/dL Glucose (74-99) mg/dL POC Glucose (mg/dL) 166 H (75-99) mg/dL Calcium (8.4-10.2) mg/dL Total Bilirubin (0.2-1.3) mg/dL AST (14-36) U/L Troponin I 0.037 H* (0.000-0.034) ng/mL Total Protein (6.3-8.2) g/dL Albumin (3.5-5.0) g/dL Urine Protein Trace H (Negative) Crossmatch 05/02/19 05/02/19 05/02/19 Range/Units 06:04 06:04 06:24 WBC 37.0 H (3.8-10.6) k/uL RBC 2.20 L (3.80-5.40) m/uL Hgb 7.2 L (11.4-16.0) gm/dL Hct 21.2 L (34.0-46.0) % RDW 19.1 H (11.5-15.5) % Plt Count 6 L* (150-450) k/uL Neutrophils # (Manual) 0.37 L* (1.3-7.7) k/uL Lymphocytes # (Manual) 36.26 H (1.0-4.8) k/uL ABG pH (7.35-7.45) ABG pO2 (83-108) mmHg ABG HCO3 (21-25) mmol/L ABG Total CO2 (19-24) mmol/L ABG O2 Saturation (94-97) % Potassium 3.1 L (3.5-5.1) mmol/L BUN 23 H (7-17) mg/dL Glucose 119 H (74-99) mg/dL POC Glucose (mg/dL) 130 H (75-99) mg/dL Calcium 6.9 L (8.4-10.2) mg/dL Total Bilirubin 2.0 H (0.2-1.3) mg/dL AST 12 L (14-36) U/L Troponin I (0.000-0.034) ng/mL Total Protein 5.0 L (6.3-8.2) g/dL Albumin 3.0 L (3.5-5.0) g/dL Urine Protein (Negative) Crossmatch 05/02/19 05/02/19 05/02/19 Range/Units 11:57 12:16 12:45 WBC 46.5 H (3.8-10.6) k/uL RBC 2.30 L (3.80-5.40) m/uL Hgb 7.4 L (11.4-16.0) gm/dL Hct 22.4 L (34.0-46.0) % RDW 19.2 H (11.5-15.5) % Plt Count 4 L* (150-450) k/uL Neutrophils # (Manual) (1.3-7.7) k/uL Lymphocytes # (Manual) 45.57 H (1.0-4.8) k/uL ABG pH 7.53 H (7.35-7.45) ABG pO2 54 L* (83-108) mmHg ABG HCO3 29 H (21-25) mmol/L ABG Total CO2 30 H (19-24) mmol/L ABG O2 Saturation 91.4 L (94-97) % Potassium (3.5-5.1) mmol/L BUN (7-17) mg/dL Glucose (74-99) mg/dL POC Glucose (mg/dL) 186 H (75-99) mg/dL Calcium (8.4-10.2) mg/dL Total Bilirubin (0.2-1.3) mg/dL AST (14-36) U/L Troponin I (0.000-0.034) ng/mL Total Protein (6.3-8.2) g/dL Albumin (3.5-5.0) g/dL Urine Protein (Negative) Crossmatch 05/02/19 05/02/19 Range/Units 12:45 13:35 WBC (3.8-10.6) k/uL RBC (3.80-5.40) m/uL Hgb (11.4-16.0) gm/dL Hct (34.0-46.0) % RDW (11.5-15.5) % Plt Count (150-450) k/uL Neutrophils # (Manual) (1.3-7.7) k/uL Lymphocytes # (Manual) (1.0-4.8) k/uL ABG pH (7.35-7.45) ABG pO2 (83-108) mmHg ABG HCO3 (21-25) mmol/L ABG Total CO2 (19-24) mmol/L ABG O2 Saturation (94-97) % Potassium 3.3 L (3.5-5.1) mmol/L BUN 24 H (7-17) mg/dL Glucose 169 H (74-99) mg/dL POC Glucose (mg/dL) 192 H (75-99) mg/dL Calcium 6.9 L (8.4-10.2) mg/dL Total Bilirubin 1.9 H (0.2-1.3) mg/dL AST 12 L (14-36) U/L Troponin I (0.000-0.034) ng/mL Total Protein 5.4 L (6.3-8.2) g/dL Albumin 3.2 L (3.5-5.0) g/dL Urine Protein (Negative) Crossmatch Microbiology - Last 24 Hours (Table) 05/01/19 10:02 Blood Culture - Preliminary Blood No Growth after 24 hours Assessment and Plan Plan: - Thrombocytopenia - acute hypoxic respiratory failure probably because of fluid overload due to multiple blood product transfusion versus pneumonia or ARDS or combination of both - 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 Platelets up to 12,000 - We'll continue rest of the medical care - we'll see her again after she is back from bone marrow biopsy 04/30/2019 - Requested to do warm compresses for the hematoma on the index finger - Patient to get platelet transfusion again today - We will repeat the platelets in the morning again - Oncology following the patient. She still on steroids - We'll continue to monitor 05/01/2019 - Continue antibiotics - Need to discuss with hematology oncology for possible transfer versus increasing the level of care. Patient looks really sick - Lasix started this morning - We'll consult cardiology to - She might need pulmonology evaluation as well and might as well need to be transferred to ICU at least - Continue transfusion as needed
[2019-05-02] MEDS ORDERED: ACETAMINOPHEN IV (For NPO) 1,000 MG in EMPTY BAG 1 BAG IVPB SCH (14:00)
--- NOTE | 2019-05-02 14:23 | PN ---
PROGRESS NOTE DATE OF SERVICE: 05/02/2019 REASON FOR FOLLOWUP: Fever with a question of pneumonia and sepsis. INTERVAL HISTORY: The patient did have another fever of 101.1. This afternoon the patient also noticed to have increasing shortness of breath, breathing and hypoxemia, requiring a transfer to the ICU and has been started on a BiPAP. Patient denies having any chest pain. He did have some cough which is dry in nature. No nausea, no vomiting. No abdominal pain or any diarrhea. PHYSICAL EXAMINATION: Blood pressure 145/69 with a pulse of 95, temperature of 101.1. She is 92% on BiPAP. General description is an elderly female, lying in bed in no distress. RESPIRATORY SYSTEM: Unlabored breathing with decreased breath sounds at the bases. HEART: S1, S2. Regular rate and rhythm. ABDOMEN: Soft, no tenderness. EXTREMITIES: No edema of the feet. LABS: Hemoglobin 7.4, white count 46.5, BUN of 24, creatinine 0.70. Blood cultures obtained yesterday has been negative so far. Chest x-ray this morning did show diffuse pleural parenchymal changes which has significant progress, particularly in the left upper lobe. DIAGNOSTIC IMPRESSION AND PLAN: Patient with fever with concern for possible transfusion reaction versus ARDS, suspicion low for underlying pneumonia but not entirely excluded. Patient at this time to continue with current broad antibiotic form of cefepime and vanco. Will monitor clinical course closely. Did discuss with handle sander operator. Continue supportive care. CHRISTIANL / MILLYN: [id number] /
[2019-05-02] MEDS ORDERED: ACETAMINOPHEN IV (For NPO) 1,000 MG in EMPTY BAG 1 BAG IVPB PRN (15:08)
[2019-05-02] MEDS: methylPREDNISolone SOD SUCCI 125 MG/2 ML VIAL IV SCH ×3 (15:38→23:48)
[2019-05-02] MEDS: FILGRASTIM-SNDZ 480 MCG/0.8 ML SYRINGE SQ SCH (15:38)
[2019-05-02] MEDS: FUROSEMIDE 10 MG/ML 4 ML VIAL IV SCH ×2 (15:39→23:49)
[2019-05-02] MEDS ORDERED: ANIDULAFUNGIN 200 MG in SODIUM CHLORIDE 0.9% 200 ML IVPB ONE (16:00)
[2019-05-02 17:03] LABS: Glucose,Whole Blood 216 mg/dL (75-99)
[2019-05-02 20:10] LABS: Glucose,Whole Blood 200 mg/dL (75-99)
[2019-05-02] MEDS: METOPROLOL TARTRATE 25 MG TAB PO SCH (20:15)
[2019-05-02] MEDS: ATORVASTATIN 40 MG TAB PO SCH (20:15)
[2019-05-02 21:38] LABS: Anisocytosis Slight; MCH 33.4 pg (25.0-35.0); MCHC 34.3 g/dL (31.0-37.0); MCV 97.2 fL (80.0-100.0); Macrocytosis Slight; Mean Platelet Volume 7.7; RBC 1.96 m/uL (3.80-5.40); RDW 18.2 % (11.5-15.5); WBC 31.8 k/uL (3.8-10.6)
[2019-05-02 21:47] LABS: Calcium 6.6 mg/dL (8.4-10.2); Platelet Count 28 k/uL (150-450); Potassium 3.1 mmol/L (3.5-5.1)
[2019-05-02 21:49] LABS: HGB 6.5 gm/dL (11.4-16.0)
[2019-05-02 23:55] LABS: Glucose,Whole Blood 173 mg/dL (75-99)
[2019-05-03] MEDS: VANCOMYCIN 1,750 MG in SODIUM CHLORIDE 0.9% 500 ML 500 ML IVPB SCH ×2 (03:17→17:02)
[2019-05-03] MEDS: INSULIN ASPART (NovoLOG) 100 UNIT/ML VIAL SQ SCH ×5 (04:04→20:27)
[2019-05-03] MEDS: CEFEPIME 2 GM in SODIUM CHLORIDE 0.9% 100 ML IVPB SCH ×3 (04:05→20:26)
[2019-05-03 04:15] LABS: Glucose,Whole Blood 171 mg/dL (75-99)
[2019-05-03] MEDS: methylPREDNISolone SOD SUCCI 125 MG/2 ML VIAL IV SCH ×3 (06:00→17:02)
--- NOTE | 2019-05-03 06:46 | XR ---
EXAMINATION TYPE: XR chest 1V portable DATE OF EXAM: 05/03/2019 HISTORY: shortness of breath. REFERENCE: Previous study dated 05/02/2019. FINDINGS: There is a left internal jugular catheter in place. Its tip is in the superior vena cava. There continues be a masslike density adjacent to the right hilum. There is left upper lobe airspace disease, unchanged from previous. There is a left-sided effusion. The heart is mildly enlarged. IMPRESSION: 1. CONTINUING MASSLIKE DENSITY ADJACENT TO THE RIGHT HILUM. 2. LEFT UPPER LOBE AIRSPACE DISEASE. 3. MILD CARDIOMEGALY. 4. SMALL LEFT EFFUSION.
[2019-05-03] MEDS: IPRATROPIUM-ALBUTEROL 3 ML NEB INHALATION SCH ×4 (07:03→20:04)
[2019-05-03 07:38] LABS: ALT 23 U/L (9-52); AST 10 U/L (14-36); African American GFR (CKD) >90 (>60 ml/min/1.73 sqM); Albumin 3.2 g/dL (3.5-5.0); Alkaline Phosphatase 42 U/L (38-126); Anion Gap 9 mmol/L; Blood Urea Nitrogen 26 mg/dL (7-17); Calcium 6.6 mg/dL (8.4-10.2); Carbon Dioxide 27 mmol/L (22-30); Chloride 105 mmol/L (98-107); Glucose 146 mg/dL (74-99); Potassium 3.4 mmol/L (3.5-5.1); Sodium 141 mmol/L (137-145); Total Bilirubin 2.4 mg/dL (0.2-1.3); Total Protein 5.4 g/dL (6.3-8.2)
[2019-05-03 07:39] LABS: Anisocytosis Slight; HCT 25.8 % (34.0-46.0); MCH 32.7 pg (25.0-35.0); MCHC 34.1 g/dL (31.0-37.0); MCV 95.8 fL (80.0-100.0); Macrocytosis Slight; Mean Platelet Volume 7.4; RBC 2.69 m/uL (3.80-5.40); RDW 19.1 % (11.5-15.5); WBC 40.4 k/uL (3.8-10.6)
[2019-05-03 07:48] LABS: HGB 8.8 gm/dL (11.4-16.0)
[2019-05-03 07:49] LABS: Platelet Count 20 k/uL (150-450)
[2019-05-03 07:51] LABS: Glucose,Whole Blood 148 mg/dL (75-99)
[2019-05-03] MEDS: FUROSEMIDE 10 MG/ML 4 ML VIAL IV SCH ×3 (08:37→23:38)
[2019-05-03] MEDS: METOPROLOL TARTRATE 25 MG TAB PO SCH ×2 (08:38→20:26)
[2019-05-03] MEDS: amLODIPine 5 MG TAB PO SCH ×2 (08:38→20:26)
[2019-05-03] MEDS: FERROUS SULFATE 325 MG TAB PO SCH (08:39)
[2019-05-03] MEDS: DOCUSATE 100 MG CAP PO SCH (08:39)
[2019-05-03] MEDS: FILGRASTIM-SNDZ 480 MCG/0.8 ML SYRINGE SQ SCH (08:40)
[2019-05-03] MEDS: ANIDULAFUNGIN 100 MG in SODIUM CHLORIDE 0.9% 100 ML IVPB SCH (08:40)
[2019-05-03] MEDS: POTASSIUM CHLORIDE ER 20 MEQ TAB.ER PO SCH ×2 (08:50→09:40)
[2019-05-03 08:53] LABS: Lymphocytes # (M) 39.19 k/uL (1.0-4.8); Monocytes # (M) 0.81 k/uL (0-1.0); Neutrophils % (M) 1 %; Nucleated Red Blood Cells 0 /100 WBC (0-0); Total Cells Counted 100
[2019-05-03] MEDS: ANASTROZOLE 1 MG TAB PO SCH (09:00)
[2019-05-03] MEDS ORDERED: PANTOPRAZOLE 40 MG/10 ML VIAL IVP SCH (09:00)
--- NOTE | 2019-05-03 09:40 | PN ---
PROGRESS NOTE DATE OF SERVICE: May 03, 2019 This is a 73-year-old female who we were asked to see yesterday for acute hypoxemic respiratory failure. The patient was believed to possibly have a transfusion related acute lung injury (TRALI). Anyway, the blood work for the transfusion reaction was drawn. In addition, the patient could have just cardiac edema and/or pneumonia. It is not clear. She is being treated for all of these processes. Anyway, today she is doing a bit better. She spent pretty much all day and all night on BiPAP at IPAP of EPAP 6 and 40%. Currently, she has been converted to high-flow oxygen at 10 L/minute. She is getting a saline IV at 20 mL an hour. Since he has been here, she has received 4 units of PRBCs and 5 units of platelets. She is on vancomycin and cefepime for suspected pneumonia. In addition, she has CLL and she has been treated with Rituxan for that. She does have a history of heart failure, diastolic in nature, with a good ejection fraction and also moderate mitral regurgitation and mild aortic stenosis. She does have a history of breast cancer, status post lumpectomy and chemotherapy and radiation. In addition, she suffers from hypertension, hyperlipidemia, previous tobacco use, and severe obstructive sleep apnea syndrome. Again, the patient feels a bit better. Less short of breath. She is coughing. Not producing any phlegm. I did tell the nurse to make sure that she was properly cultured. PHYSICAL EXAMINATION: VITAL SIGNS: Current vital signs are reviewed. Temperature 98.9. Heart rate 72, respiratory rate 25, blood pressure 139/69, mean 92, saturations are 91% on the 10 L high flow. GENERAL: Appears in no acute distress. Mild shortness of breath. No audible wheezing or use of accessory muscles. HEENT examination is grossly unremarkable. Mucous membranes are moist. No oral lesions. NECK: Supple. Full range of motion. No adenopathy or thyromegaly. Neck veins are flat. CARDIOVASCULAR examination reveals regular rhythm and rate. S1, S2 normal. Heart rate about 90 beats per minute. LUNGS: Diminished breath sounds throughout. A few scattered rhonchi and crackles are appreciated. No wheezes. ABDOMEN: Soft. Bowel sounds are heard. EXTREMITIES are intact. No cyanosis, clubbing, or edema. SKIN: Without rash. NEUROLOGIC examination is brief but nonfocal. She is alert and oriented. Moves all 4 extremities well. Chest x-ray shows diffuse bilateral infiltrates. There appears to be more consolidation or masslike density in the right mid lung. She has some mild cardiomegaly and small effusions. LABORATORY DATA: Reviewed. White count 40.4, hemoglobin 8.8, hematocrit 25.8, platelet count is 20,000. Sodium 141, potassium 3.4, chloride 105, CO2 27, anion gap is 9. BUN and creatinine were 26 and 0.75. Her calcium is 6.6, bilirubin is 2.4. Microbiology is all negative including urine and blood sampling. Medications are reviewed. She is on cefepime and vancomycin. She is also on the Eraxis as an anti fungal. The rest of medications appear appropriate including breathing treatments and IV corticosteroids. She was on oral prednisone per Hematology. ASSESSMENT: 1. Acute hypoxemic respiratory failure, possibly multifactorial in part related to transfusion related acute lung injury (TRALI), congestive heart failure primarily from cardiac etiology/diastolic disease and/or pneumonia. 2. Possible sepsis. 3. Pancytopenia secondary to the patient's known history of chronic lymphocytic leukemia. 4. History of chronic lymphocytic leukemia, currently on Rituxan therapy. 5. Diastolic congestive heart failure with an ejection fraction of 60-65 percent. 6. Troponin leak, likely related to supply demand mismatch versus acute ischemia, less likely. 7. Mild aortic stenosis. [id number] pulmonary hypertension and moderate mitral regurgitation by echocardiogram. 8. History of breast cancer, status post lumpectomy and chemotherapy with radiation. 9. Hypertension by history. 10.Hyperlipidemia by history. 11.Previous history of tobacco use. 12.Severe obstructive sleep apnea, maintained on CPAP. PLAN: The patient's overall prognosis remains very guarded. Not clear as to exactly what is going on her lungs. It could relate to cardiac failure, pneumonia and/or transfusion related acute lung injury. I prefer the latter given the temporal relationship between blood transfusions and respiratory demise. The patient remains on vancomycin and cefepime. She has been cultured. We will switch her from BiPAP to high-flow nasal O2. She will get Lasix 40 mg IV push q.8 hours. She has received a total of 4 units of PRBCs and 5 units of platelets since she has been here. No additional recommendations are made. We will continue to follow. Daily chest x-rays. Current critical care time 34 minutes. MMJESSIEL / IJN: [id number] /
--- NOTE | 2019-05-03 11:25 | P.PN ---
Subjective Progress Note Date: 05/03/19 The patient looks and feels somewhat better today. Oxygen requirement is diminished. Fever appears to have resolved. No obvious bleeding didn't Objective - Vital Signs Vital signs: Vital Signs Temp 99.1 F 05/03/19 08:00 Pulse 77 05/03/19 11:03 Resp 19 05/03/19 11:00 BP 140/60 05/03/19 11:00 Pulse Ox 89 L 05/03/19 11:00 Intake & Output 05/02/19 05/03/19 05/03/19 18:59 06:59 18:59 Intake Total 280 2469 250 Output Total 2050 1115 570 Balance -1770 1354 -320 Weight 106.5 kg Intake: IV 40 840 120 .9 40 240 120 Cefepime 2 gm In Sodium 100 Chloride 0.9% 100 ml @ 200 mls/hr IVPB Q8H [facility] Rx#:[id number] Vancomycin 1,750 mg In 500 Sodium Chloride 0.9% 500 ml 500 ml @ 167 mls/hr IVPB Q16H [facility] Rx#: [id number] Oral 240 130 Blood Product 0 1629 Platelet Pheresis Acda 0 389 Unit [id number] Rc As-3 Unit 310 [id number] Rc Cpda-1 Unit 310 [id number] Output: Urine 0 1115 570 Uretheral (Espinoza) 30 Other: Voiding Method Indwelling Catheter Indwelling Catheter Indwelling Catheter - Constitutional General appearance: Present: no acute distress - EENT Eyes: Present: EOMI ENT: Present: hearing grossly normal, normal oropharynx - Respiratory Respiratory: bilateral: diminished - Cardiovascular Rhythm: regular Heart sounds: normal: S1, S2 - Gastrointestinal General gastrointestinal: Present: normal bowel sounds, soft - Integumentary Integumentary Comment(s): Scattered bruises on abdomen, at injection sites. Additional scattered bruises on her upper extremities, - Neurologic Neurologic: Present: CNII-XII intact - Musculoskeletal Musculoskeletal: Present: generalized weakness, strength equal bilaterally - Psychiatric Psychiatric: Present: A&O x's 3, appropriate affect - Labs CBC & Chem 7: 05/03/19 07:04 05/03/19 07:04 Labs: Abnormal Lab Results - Last 24 Hours (Table) 04/30/19 05/02/19 05/02/19 Range/Units 09:14 11:57 12:16 WBC (3.8-10.6) k/uL RBC (3.80-5.40) m/uL Hgb (11.4-16.0) gm/dL Hct (34.0-46.0) % RDW (11.5-15.5) % Plt Count (150-450) k/uL Neutrophils # (Manual) (1.3-7.7) k/uL Lymphocytes # (Manual) (1.0-4.8) k/uL ABG pH 7.53 H (7.35-7.45) ABG pO2 54 L* (83-108) mmHg ABG HCO3 29 H (21-25) mmol/L ABG Total CO2 30 H (19-24) mmol/L ABG O2 Saturation 91.4 L (94-97) % Potassium (3.5-5.1) mmol/L BUN (7-17) mg/dL Glucose (74-99) mg/dL POC Glucose (mg/dL) 186 H (75-99) mg/dL Calcium (8.4-10.2) mg/dL Total Bilirubin (0.2-1.3) mg/dL AST (14-36) U/L Troponin I (0.000-0.034) ng/mL Total Protein (6.3-8.2) g/dL Albumin (3.5-5.0) g/dL Crossmatch See Detail 05/02/19 05/02/19 05/02/19 Range/Units 12:45 12:45 12:45 WBC 46.5 H (3.8-10.6) k/uL RBC 2.30 L (3.80-5.40) m/uL Hgb 7.4 L (11.4-16.0) gm/dL Hct 22.4 L (34.0-46.0) % RDW 19.2 H (11.5-15.5) % Plt Count 4 L* (150-450) k/uL Neutrophils # (Manual) (1.3-7.7) k/uL Lymphocytes # (Manual) 45.57 H (1.0-4.8) k/uL ABG pH (7.35-7.45) ABG pO2 (83-108) mmHg ABG HCO3 (21-25) mmol/L ABG Total CO2 (19-24) mmol/L ABG O2 Saturation (94-97) % Potassium 3.3 L (3.5-5.1) mmol/L BUN 24 H (7-17) mg/dL Glucose 169 H (74-99) mg/dL POC Glucose (mg/dL) (75-99) mg/dL Calcium 6.9 L (8.4-10.2) mg/dL Total Bilirubin 1.9 H (0.2-1.3) mg/dL AST 12 L (14-36) U/L Troponin I 0.096 H* (0.000-0.034) ng/mL Total Protein 5.4 L (6.3-8.2) g/dL Albumin 3.2 L (3.5-5.0) g/dL Crossmatch 05/02/19 05/02/19 05/02/19 Range/Units 13:35 16:52 18:20 WBC (3.8-10.6) k/uL RBC (3.80-5.40) m/uL Hgb (11.4-16.0) gm/dL Hct (34.0-46.0) % RDW (11.5-15.5) % Plt Count (150-450) k/uL Neutrophils # (Manual) (1.3-7.7) k/uL Lymphocytes # (Manual) (1.0-4.8) k/uL ABG pH (7.35-7.45) ABG pO2 (83-108) mmHg ABG HCO3 (21-25) mmol/L ABG Total CO2 (19-24) mmol/L ABG O2 Saturation (94-97) % Potassium (3.5-5.1) mmol/L BUN (7-17) mg/dL Glucose (74-99) mg/dL POC Glucose (mg/dL) 192 H 216 H (75-99) mg/dL Calcium (8.4-10.2) mg/dL Total Bilirubin (0.2-1.3) mg/dL AST (14-36) U/L Troponin I 0.068 H* (0.000-0.034) ng/mL Total Protein (6.3-8.2) g/dL Albumin (3.5-5.0) g/dL Crossmatch 05/02/19 05/02/19 05/02/19 Range/Units 19:58 20:49 20:49 WBC 31.8 H (3.8-10.6) k/uL RBC 1.96 L (3.80-5.40) m/uL Hgb 6.5 L* (11.4-16.0) gm/dL Hct 19.0 L* (34.0-46.0) % RDW 18.2 H (11.5-15.5) % Plt Count 28 L D (150-450) k/uL Neutrophils # (Manual) (1.3-7.7) k/uL Lymphocytes # (Manual) (1.0-4.8) k/uL ABG pH (7.35-7.45) ABG pO2 (83-108) mmHg ABG HCO3 (21-25) mmol/L ABG Total CO2 (19-24) mmol/L ABG O2 Saturation (94-97) % Potassium 3.1 L (3.5-5.1) mmol/L BUN 22 H (7-17) mg/dL Glucose 174 H (74-99) mg/dL POC Glucose (mg/dL) 200 H (75-99) mg/dL Calcium 6.6 L (8.4-10.2) mg/dL Total Bilirubin (0.2-1.3) mg/dL AST (14-36) U/L Troponin I (0.000-0.034) ng/mL Total Protein (6.3-8.2) g/dL Albumin (3.5-5.0) g/dL Crossmatch 05/02/19 05/02/19 05/03/19 Range/Units 22:44 23:43 03:54 WBC (3.8-10.6) k/uL RBC (3.80-5.40) m/uL Hgb (11.4-16.0) gm/dL Hct (34.0-46.0) % RDW (11.5-15.5) % Plt Count (150-450) k/uL Neutrophils # (Manual) (1.3-7.7) k/uL Lymphocytes # (Manual) (1.0-4.8) k/uL ABG pH (7.35-7.45) ABG pO2 (83-108) mmHg ABG HCO3 (21-25) mmol/L ABG Total CO2 (19-24) mmol/L ABG O2 Saturation (94-97) % Potassium (3.5-5.1) mmol/L BUN (7-17) mg/dL Glucose (74-99) mg/dL POC Glucose (mg/dL) 173 H 171 H (75-99) mg/dL Calcium (8.4-10.2) mg/dL Total Bilirubin (0.2-1.3) mg/dL AST (14-36) U/L Troponin I (0.000-0.034) ng/mL Total Protein (6.3-8.2) g/dL Albumin (3.5-5.0) g/dL Crossmatch See Detail 05/03/19 05/03/19 05/03/19 Range/Units 07:04 07:04 07:39 WBC 40.4 H (3.8-10.6) k/uL RBC 2.69 L (3.80-5.40) m/uL Hgb 8.8 L D (11.4-16.0) gm/dL Hct 25.8 L (34.0-46.0) % RDW 19.1 H (11.5-15.5) % Plt Count 20 L (150-450) k/uL Neutrophils # (Manual) 0.40 L* (1.3-7.7) k/uL Lymphocytes # (Manual) 39.19 H (1.0-4.8) k/uL ABG pH (7.35-7.45) ABG pO2 (83-108) mmHg ABG HCO3 (21-25) mmol/L ABG Total CO2 (19-24) mmol/L ABG O2 Saturation (94-97) % Potassium 3.4 L (3.5-5.1) mmol/L BUN 26 H (7-17) mg/dL Glucose 146 H (74-99) mg/dL POC Glucose (mg/dL) 148 H (75-99) mg/dL Calcium 6.6 L (8.4-10.2) mg/dL Total Bilirubin 2.4 H (0.2-1.3) mg/dL AST 10 L (14-36) U/L Troponin I (0.000-0.034) ng/mL Total Protein 5.4 L (6.3-8.2) g/dL Albumin 3.2 L (3.5-5.0) g/dL Crossmatch Microbiology - Last 24 Hours (Table) 05/02/19 14:17 Urine Culture - Preliminary Urine,Catheterized 05/01/19 10:02 Blood Culture - Preliminary Blood No Growth after 24 hours Assessment and Plan (1) SIRS (systemic inflammatory response syndrome) Narrative/Plan: The patient is improved with aggressive supportive care, including high flow oxygen and BiPAP, and antibiotics. The etiology for the same includes sepsis, given fever and pre-existing neutropenia, as well as transfusion related lung injury or both. Progression of CLL itself is also a possibility though less likely, as the patient is improving with current care , which is directed to the first 2 conditions. Cultures are negative so far. Fever has improved. Continue treatment per CCM/ID/admitting service. Given improvement with treatment for sepsis/ARDS, we can hold off on starting treatment for the CLL itself until condition is improved Current Visit: Yes Status: Acute Code(s): R65.10 - SIRS OF NON-INFECTIOUS ORIGIN W/O ACUTE ORGAN DYSFUNCTION SNOMED Code(s): 925447033 (2) Thrombocytopenia Narrative/Plan: Immune mediated, versus direct progression of CLL versus both. She received platelet transfusion yesterday, with improvement in counts to greater than 20,000. She is actually maintaining. Counts in that level which is a better response than noted previously this admission Current Visit: Yes Status: Acute Code(s): D69.6 - THROMBOCYTOPENIA, UNSPECIFIED SNOMED Code(s): 059848860 (3) CLL (chronic lymphocytic leukemia) Narrative/Plan: Bone marrow aspiration biopsy results were received yesterday. They showed marked involvement of the marrow with CLL, up to essentially 99%. However there was no transformation. Plan is to start bendamustine and Rituxan once her acute condition improves sufficiently Current Visit: Yes Status: Acute Priority: High Code(s): C91.90 - LYMPHOID LEUKEMIA, UNSPECIFIED NOT HAVING ACHIEVED REMISSION SNOMED Code(s): 47197656 (4) Pancytopenia Narrative/Plan: The patient has been started on filgrastim, once bone marrow ruled out acute leukemia. She received her first dose yesterday. Neutrophil count is improved to 400 from 0. Hemoglobin and platelets are in a safe range today. Continue to monitor with transfusions as needed Current Visit: Yes Status: Acute Priority: High Code(s): D61.818 - OTHER PANCYTOPENIA SNOMED Code(s): 359665273 (5) Breast cancer Narrative/Plan: Continue Arimidex Current Visit: No Status: Chronic Priority: Low Code(s): C50.919 - MALIGNANT NEOPLASM OF UNSP SITE OF UNSPECIFIED FEMALE BREAST SNOMED Code(s): 917527365 (6) Gastrointestinal stromal neoplasm Narrative/Plan: Gleevec will be on hold until counts improve and stabilize further Current Visit: Yes Status: Acute Code(s): C49.A0 - GASTROINTESTINAL STROMAL TUMOR, UNSPECIFIED SITE SNOMED Code(s): 412735444
[2019-05-03 11:59] LABS: Glucose,Whole Blood 165 mg/dL (75-99)
--- NOTE | 2019-05-03 14:40 | P.CRDCN ---
History of Present Illness Consult date: 05/03/19 History of present illness: this is a 73-year-old female with history of breast cancer status post lumpectomy, chemotherapy and radiation. She also has history of CLL for which she received chemotherapy in 2018. She also had a gastric resection related to mass in the stomach. This patient is admitted to this hospital on April 25 with profound thrombocytopenia with platelet count of 1000. It was suspected that patient may have a recurrence of CLL. Patient is admitted for steroid treatment, and platelet transfusion. Patient ended up having blood transfusion and platelet transfusion. Patient has been having some fever since then and also became hypoxic with increasing difficulty breathing. Chest x-ray showed cardiomegaly with central venous congestion and small left pleural effusion. Her proBNP was elevated to 8050. Patient was treated with IV Lasix with improvement of her symptoms. Her chest x-ray which is repeated showed increasing infiltrates suggestive of possible pneumonia. The infiltrates are seen mostly in the left upper lobe and right perihilar region. Her echocardiogram showed preserved LV function. If she doesn't have any history of previous myocardial infarction ischemic heart disease and congestive heart failure It is felt at this time that her respiratory failure was secondary to reaction to the transfusions. There may be an element of diastolic congestive heart failure. She seemed to be feeling better at this time.patient is currently on IV Lasix along with metoprolol. She is also on steroids. Overall patient seemed to be improving.her lab work showed hemoglobin of 8.8 and platelet count of 20,000. Her renal function is preservedand liver enzymes are within normal limits. Troponins are elevated but the pattern of raise is not consistent with acute myocardial injury pattern Review of Systems as for the H&P Past Medical History Past Medical History: Cancer, Hyperlipidemia, Hypertension, Osteoarthritis (OA) Additional Past Medical History / Comment(s): hx. breast cancer 2014 w/lumpectomy, chemo & radiation, new dx. chronic lymphocytic leukemia(CLL), DJD History of Any Multi-Drug Resistant Organisms: None Reported Past Surgical History: Bladder Surgery, Breast Surgery, Joint Replacement, Tubal Ligation, Uterine Ablation Additional Past Surgical History / Comment(s): 04/18/16 total right knee arthroplasty. Other surgical hx: right breast lumpectomy, bladder suspension, several D & C's Past Anesthesia/Blood Transfusion Reactions: Postoperative Nausea & Vomiting (PONV) Past Psychological History: No Psychological Hx Reported Additional Psychological History / Comment(s): Pt resides with another adult. She is independent. Smoking Status: Former smoker Past Alcohol Use History: None Reported Additional Past Alcohol Use History / Comment(s): quit smoking 1997, smoked for 20 yrs. Past Drug Use History: None Reported - Past Family History Father Family Medical History: Cancer Sister(s) Family Medical History: Cancer Mother Family Medical History: Cancer Medications and Allergies Home Medications Medication Instructions Recorded Confirmed Type Anastrozole [Arimidex] 1 mg PO DAILY 03/28/16 04/25/19 History amLODIPine [Norvasc] 5 mg PO BID 03/28/16 04/25/19 History Pantoprazole Sodium [Protonix] 40 mg PO BID #60 tablet. 04/27/16 04/25/19 Rx Allopurinol [Zyloprim] 300 mg PO DAILY 04/25/19 04/25/19 History Atorvastatin [Lipitor] 40 mg PO HS 04/25/19 04/25/19 History Docusate [Colace] 100 mg PO DAILY 04/25/19 04/25/19 History Ferrous Sulfate [Feosol] 325 mg PO DAILY 04/25/19 04/25/19 History Imatinib Mesylate [Gleevec] 400 mg PO DAILY 04/25/19 04/25/19 History Allergies Allergy/AdvReac Type Severity Reaction Status Date / Time No Known Allergies Allergy Verified 04/25/19 16:19 Physical Exam Vitals: Vital Signs Temp Pulse Pulse Resp BP Pulse Ox 05/03/19 13:00 93 13 131/64 91 L 05/03/19 12:00 98.8 F 92 90 22 144/70 90 L 05/03/19 11:19 76 05/03/19 11:03 77 05/03/19 11:00 77 19 140/60 89 L 05/03/19 10:00 77 30 H 155/75 90 L 05/03/19 09:00 82 25 H 148/71 90 L 05/03/19 08:00 99.1 F 79 90 24 139/77 91 L 05/03/19 07:44 72 05/03/19 07:07 71 05/03/19 07:00 79 23 131/71 92 L 05/03/19 06:00 75 25 H 139/69 91 L 05/03/19 05:57 98.9 F 76 22 139/69 91 L 05/03/19 05:00 72 17 155/67 91 L 05/03/19 04:27 99.1 F 77 18 155/67 91 L 05/03/19 04:00 99 F 75 23 134/64 92 L 05/03/19 03:57 99 F 75 22 134/64 92 L 05/03/19 03:47 98.2 F 75 20 136/68 93 L 05/03/19 03:22 99.2 F 67 16 137/63 93 L 05/03/19 03:00 71 17 130/66 94 L 05/03/19 02:00 73 29 H 107/59 92 L 05/03/19 01:33 99.1 F 75 23 107/59 93 L 05/03/19 01:03 98.8 F 75 18 123/60 93 L 05/03/19 01:00 73 18 127/59 93 L 05/03/19 00:53 99.3 F 73 20 127/59 93 L 05/03/19 00:00 73 19 131/69 92 L 05/02/19 23:00 73 16 112/67 92 L 05/02/19 22:00 63 15 107/57 95 05/02/19 21:00 68 15 118/58 94 L 05/02/19 20:00 98.8 F 80 20 119/58 95 05/02/19 19:40 98.8 F 73 16 119/58 94 L 05/02/19 19:23 76 05/02/19 19:10 74 05/02/19 19:00 70 15 119/56 98 05/02/19 18:08 100.8 F H 75 19 119/56 05/02/19 18:00 75 19 117/56 97 05/02/19 17:38 100.9 F H 80 26 H 117/56 05/02/19 17:28 100.7 F H 78 24 117/55 05/02/19 17:00 83 22 129/53 99 05/02/19 16:00 100 F H 86 23 122/49 98 05/02/19 15:29 80 05/02/19 15:18 84 05/02/19 15:00 80 19 120/55 98 Intake and Output 05/02/19 05/03/19 05/03/19 22:59 06:59 14:59 Intake Total 509 2000 530 Output Total 3237 272 4488 Balance -701 1195 -1540 Intake: IV 120 760 250 .9 120 160 150 Cefepime 2 gm In Sodium 100 100 Chloride 0.9% 100 ml @ 200 mls/hr IVPB Q8H [facility] Rx#:[id number] Vancomycin 1,750 mg In 500 Sodium Chloride 0.9% 500 ml 500 ml @ 167 mls/hr IVPB Q16H [facility] Rx#: [id number] Oral 280 Blood Product 389 1240 Platelet Pheresis Acda 389 Unit [id number] Rc As-3 Unit 310 [id number] Rc Cpda-1 Unit 310 [id number] Output: Urine 8211 760 2337 Uretheral (Espinoza) 430 Other: Voiding Method Indwelling Catheter Indwelling Catheter Indwelling Catheter # Bowel Movements 1 Weight 106.5 kg GENERAL EXAM: Patient is alert and oriented and appears to be in mild distress Axonal defaults HEENT: Normocephalic. Normal reaction of pupils, equal size, normal range of extraocular motion. No erythema or exudates in the throat. NECK: No masses, no nuchal rigidity.exudate falls LUNGS:diminished air exchange and rhonchi HEART: [S1 and S2 normal with no audible mumurs or gallops. Regular rhythm, femorals equal on both sides..] ABDOMEN: No hepatosplenomegaly, normal bowel sounds, no guarding or rigidity. SKIN: No rashes CENTRAL NERVOUS SYSTEM: No focal deficits. EXTREMITIES: no cyanosis, clubbing or edema Results 05/03/19 07:04 05/03/19 07:04 Cardiac Enzymes 05/02/19 05/03/19 Range/Units 18:20 07:04 AST 10 L (14-36) U/L Troponin I 0.068 H* (0.000-0.034) ng/mL CBC 05/02/19 05/03/19 Range/Units 20:49 07:04 WBC 31.8 H 40.4 H (3.8-10.6) k/uL RBC 1.96 L 2.69 L (3.80-5.40) m/uL Hgb 6.5 L* 8.8 L D (11.4-16.0) gm/dL Hct 19.0 L* 25.8 L (34.0-46.0) % Plt Count 28 L D 20 L (150-450) k/uL Comprehensive Metabolic Panel 05/02/19 05/03/19 Range/Units 20:49 07:04 Sodium 139 141 (137-145) mmol/L Potassium 3.1 L 3.4 L (3.5-5.1) mmol/L Chloride 103 105 (98-107) mmol/L Carbon Dioxide 29 27 (22-30) mmol/L BUN 22 H 26 H (7-17) mg/dL Creatinine 0.78 0.75 (0.52-1.04) mg/dL Glucose 174 H 146 H (74-99) mg/dL Calcium 6.6 L 6.6 L (8.4-10.2) mg/dL AST 10 L (14-36) U/L ALT 23 (9-52) U/L Alkaline Phosphatase 42 (38-126) U/L Total Protein 5.4 L (6.3-8.2) g/dL Albumin 3.2 L (3.5-5.0) g/dL Current Medications Generic Name Dose Route Start Last Admin Trade Name Freq PRN Reason Stop Dose Admin Albuterol/Ipratropium 3 ml 05/01/19 23:31 05/03/19 10:59 Duoneb 0.5 Mg-3 Mg/3 Ml Soln INHALATION 3 ml RT-QID [facility] Administration Albuterol/Ipratropium 3 ml 05/01/19 23:37 Duoneb 0.5 Mg-3 Mg/3 Ml Soln INHALATION RT-Q2H PRN Shortness Of Breath Or Wheezing Amlodipine Besylate 5 mg 04/25/19 21:00 05/03/19 08:38 Norvasc PO 5 mg BID [facility] Administration Anastrozole 1 mg 04/26/19 09:00 05/03/19 09:00 Arimidex PO 1 mg DAILY [facility] Administration Atorvastatin Calcium 40 mg 04/25/19 21:00 05/02/19 20:15 Lipitor PO 40 mg HS [facility] Administration Docusate Sodium 100 mg 04/26/19 09:00 05/03/19 08:39 Colace PO 100 mg DAILY [facility] Administration Ferrous Sulfate 325 mg 04/26/19 09:00 05/03/19 08:39 Feosol PO 325 mg DAILY [facility] Administration Filgrastim 480 mcg 05/02/19 12:30 05/03/19 08:40 Zarxio SQ 480 mcg DAILY [facility] Administration Furosemide 40 mg 05/02/19 16:00 05/03/19 08:37 Lasix IV 40 mg Q8HR [facility] Administration Lactated Ringer's 1,000 mls @ 20 mls/hr 04/28/19 19:54 05/01/19 18:13 Lactated Ringers IV Not Given .Q24H [facility] Vancomycin HCl 1,750 mg/ 500 mls @ 167 mls/hr 05/02/19 10:00 05/03/19 03:17 Sodium Chloride IVPB 167 mls/hr Q16H [facility] Administration Anidulafungin 100 mg/ Sodium 100 mls @ 84 mls/hr 05/03/19 09:00 05/03/19 08:40 Chloride IVPB 84 mls/hr DAILY [facility] Administration Cefepime HCl 2 gm/ Sodium 100 mls @ 200 mls/hr 05/03/19 04:00 05/03/19 11:55 Chloride IVPB 200 mls/hr Q8H [facility] Administration Insulin Aspart 0 unit 05/02/19 20:15 05/03/19 11:54 Novolog SQ 3 unit Q4HR [facility] Administration Protocol Lidocaine HCl 0.1 ml 04/28/19 19:54 .Xylocaine 1% Inj (10mg/Ml) For Iv Start INTRADERMA PER PROTOCOL PRN IV Start Methylprednisolone Sodium Succinate 60 mg 05/02/19 14:00 05/03/19 11:54 Solu-Medrol IV 60 mg Q6HR [facility] Administration Metoprolol Tartrate 25 mg 05/02/19 21:00 05/03/19 08:38 Lopressor PO 25 mg BID [facility] Administration Miscellaneous Information 1 each 05/02/19 11:51 Potassium Per Protocol MISCELLANE DAILY PRN Per Protocol Protocol Miscellaneous Information 0 each 05/04/19 09:00 Vancomycin Trough Due MISCELLANE 05/04/19 09:01 DIRECTED ONE Naloxone HCl 0.2 mg 04/25/19 16:31 Narcan IV Q2M PRN Opioid Reversal Nitroglycerin 0.4 mg 04/30/19 23:41 05/01/19 08:54 Nitrostat SUBLINGUAL 0.4 mg ONCE PRN Administration Chest Pain Ondansetron HCl 4 mg 05/01/19 23:00 05/01/19 23:06 Zofran IVP 4 mg Q6HR PRN Administration Nausea And Vomiting Pantoprazole Sodium 40 mg 05/03/19 09:00 05/03/19 08:40 Protonix IVP 40 mg DAILY [facility] Administration Intake and Output 05/02/19 05/03/19 05/03/19 22:59 06:59 14:59 Intake Total 509 2000 530 Output Total 7391 090 8012 Balance -701 1195 -1540 Intake: IV 120 760 250 .9 120 160 150 Cefepime 2 gm In Sodium 100 100 Chloride 0.9% 100 ml @ 200 mls/hr IVPB Q8H [facility] Rx#:[id number] Vancomycin 1,750 mg In 500 Sodium Chloride 0.9% 500 ml 500 ml @ 167 mls/hr IVPB Q16H [facility] Rx#: [id number] Oral 280 Blood Product 389 1240 Platelet Pheresis Acda 389 Unit [id number] Rc As-3 Unit 310 [id number] Rc Cpda-1 Unit 310 [id number] Output: Urine 2348 738 3253 Uretheral (Espinoza) 430 Other: Voiding Method Indwelling Catheter Indwelling Catheter Indwelling Catheter # Bowel Movements 1 Weight 106.5 kg 05/03/19 07:04 05/03/19 07:04 Assessment and Plan (1) Acute respiratory failure with hypoxia Current Visit: Yes Status: Acute Code(s): J96.01 - ACUTE RESPIRATORY FAILURE WITH HYPOXIA SNOMED Code(s): 59089082 (2) Diastolic CHF Current Visit: Yes Status: Acute Code(s): I50.30 - UNSPECIFIED DIASTOLIC (CONGESTIVE) HEART FAILURE SNOMED Code(s): 302814241 (3) Pneumonia Current Visit: Yes Status: Acute Code(s): J18.9 - PNEUMONIA, UNSPECIFIED ORGANISM SNOMED Code(s): 848716562 (4) Elevated troponin Current Visit: Yes Status: Acute Code(s): R74.8 - ABNORMAL LEVELS OF OTHER SERUM ENZYMES SNOMED Code(s): 280373768 (5) Essential hypertension Current Visit: Yes Status: Acute Code(s): I10 - ESSENTIAL (PRIMARY) HYPERTENSION SNOMED Code(s): 33340306 Plan: patient continues to be feeling better. We will continue to monitor her chest x-ray findings. We'll continue her diuretics for 24 hours. If her chest x-ray shows improvement or is more consistent with pneumonia, we cut back on the dose of her Lasix. Further recommendations depend upon the clinical course. Troponins are elevated but the pattern is not consistent with acute coronary sy ndrome. Most probably affect demand supply mismatch related to hypoxia.
[2019-05-03 15:42] LABS: Glucose,Whole Blood 176 mg/dL (75-99)
--- NOTE | 2019-05-03 17:12 | PN ---
PROGRESS NOTE DATE OF SERVICE: 05/03/2019. REASON FOR FOLLOWUP: Fever with a question of transfusion reaction versus pneumonia. INTERVAL HISTORY: The patient overall fever pattern has improved. No fever has been recorded in last 24 hours. The patient seems to be breathing slightly comfortably. Did have mild chest pain. Occasional cough, but not bringing up any sputum. No nausea, no vomiting. No abdominal pain. No diarrhea. PHYSICAL EXAMINATION: Blood pressure is 135/61 with a pulse of 80, temperature of 98. She is 93% on high- flow oxygen. General description is an elderly female lying in bed in no distress. Respiratory system: Unlabored breathing with decreased breath sounds in the bases. No wheeze. Heart S1, S2. Regular rate and rhythm. ABDOMEN: Soft, no tenderness. EXTREMITIES: No edema of the feet. LABS: Hemoglobin 8.2, white count 40,000. BUN of 26, creatinine 0.75. Blood and urine cultures have been negative so far. No sputum has been collected. DIAGNOSTIC IMPRESSION AND PLAN: Patient presenting to the hospital with thrombocytopenia for which the patient received multiple platelet transfusions as well blood transfusions with subsequent developing of fever and respiratory distress, question of possible transfusion reaction versus pneumonia though pneumonia less likely. Patient is currently covered with cefepime and vancomycin along with Ranexa to continue while monitoring clinical course and culture closely. Continue supportive care. MMODL / IJN: [id number] /
--- NOTE | 2019-05-03 17:28 | P.PN ---
Subjective Progress Note Date: 05/03/19 Principal diagnosis: Acute hypoxic respiratory failure Ms. Ascencio is a 73-year-old female with a past medical history of breast cancer status post lumpectomy and chemotherapy and radiation therapy admitted to the hospital for thrombocytopenia. 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 Patient underwent bone marrow biopsy by Dr. Oliva on the . After that patient received 2 units of PRBCs, 2 units of platelets after which she became febrile and increasingly hypoxemic Sunday she had to be transferred to the ICU couple of days back. Patient had chest x-ray showing small left pleural effusion and also elevated BNP. Patient has history of heart failure, diastolic along with moderate mitral regurgitation and mild aortic stenosis. She has been started on diuretics, empiric antibiotics after obtaining blood cultures. Patient has been on BiPAP couple of days back and has been changed to 12 L of high flow nasal cannula yesterday. Today the patient is lying comfortably in the bed. She is on Aervo at 55, 75 now. She reports that her difficulty in breathing is much better. Patient denies having any chest pain or palpitations. Denies having any lower extremity swelling. No abdominal pain nausea vomiting or diarrhea. No dysuria or hematuria. Patient's medications and labs have been reviewed: Active Medications Albuterol/Ipratropium (Duoneb 0.5 Mg-3 Mg/3 Ml Soln) 3 ml INHALATION RT-QID [facility] Amlodipine Besylate (Norvasc) 5 mg PO BID [facility] Anastrozole (Arimidex) 1 mg PO DAILY [facility] Atorvastatin Calcium (Lipitor) 40 mg PO HS [facility] Docusate Sodium (Colace) 100 mg PO DAILY [facility] Ferrous Sulfate (Feosol) 325 mg PO DAILY [facility] Filgrastim (Zarxio) 480 mcg SQ DAILY [facility] Furosemide (Lasix) 40 mg IV Q8HR [facility] Lactated Ringer's (Lactated Ringers) 1,000 mls @ 20 mls/hr IV .Q24H [facility] Vancomycin HCl 1,750 mg/ (Sodium Chloride) 500 mls @ 167 mls/hr IVPB Q16H [facility] Anidulafungin 100 mg/ Sodium (Chloride) 100 mls @ 84 mls/hr IVPB DAILY [facility] Cefepime HCl 2 gm/ Sodium (Chloride) 100 mls @ 200 mls/hr IVPB Q8H [facility] Insulin Aspart (Novolog) 0 unit SQ Q4HR [facility]; Protocol Lidocaine HCl (.Xylocaine 1% Inj (10mg/Ml) For Iv Start) 0.1 ml INTRADERMA PER PROTOCOL PRN Methylprednisolone Sodium Succinate (Solu-Medrol) 60 mg IV Q6HR [facility] Metoprolol Tartrate (Lopressor) 25 mg PO BID [facility] Miscellaneous Information (Potassium Per Protocol) 1 each MISCELLANE DAILY PRN; Protocol PRN Reason: Per Protocol Miscellaneous Information (Vancomycin Trough Due) 0 each MISCELLANE DIRECTED ONE Naloxone HCl (Narcan) 0.2 mg IV Q2M PRN Nitroglycerin (Nitrostat) 0.4 mg SUBLINGUAL ONCE PRN Ondansetron HCl (Zofran) 4 mg IVP Q6HR PRN Pantoprazole Sodium (Protonix) 40 mg IVP DAILY [facility] Objective - Vital Signs Vital signs: Vital Signs Temp 98.8 F 05/03/19 12:00 Pulse 96 05/03/19 15:20 Resp 23 05/03/19 15:00 BP 135/61 05/03/19 15:00 Pulse Ox 93 L 05/03/19 15:00 Intake & Output 05/02/19 05/03/19 05/03/19 18:59 06:59 18:59 Intake Total 280 2469 670 Output Total 2049 1115 2770 Balance -1770 1354 -2100 Weight 106.5 kg Intake: IV 40 840 290 .9 40 240 190 Cefepime 2 gm In Sodium 100 100 Chloride 0.9% 100 ml @ 200 mls/hr IVPB Q8H [facility] Rx#:[id number] Vancomycin 1,750 mg In 500 Sodium Chloride 0.9% 500 ml 500 ml @ 167 mls/hr IVPB Q16H [facility] Rx#: [id number] Oral 240 380 Blood Product 0 1629 Platelet Pheresis Acda 0 389 Unit [id number] As-3 Unit 310 [id number] Cpda-1 Unit 310 [id number] Output: Urine 0 1115 2770 Uretheral (Espinoza) 630 Other: Voiding Method Indwelling Catheter Indwelling Catheter Indwelling Catheter # Bowel Movements 1 - Exam GEN. APPEARANCE: alert, in no apparent distress HEAD EXAM: atraumatic, normocephalic, normal inspection EYE EXAM: normal appearance, PERRL, EOMI. Absent: scleral icterus, conjunctival injection, periorbital swelling ENT EXAM: normal exam, mucous membranes moist RESPIRATORY EXAM: Diminished breath sounds in all lung finn. Few crackles at the lower lung bases appreciated. No wheezes. CARDIOVASCULAR EXAM: S1-S2 heard. GI/ABDOMINAL EXAM: Abdomen is soft nontender. All sounds positive. EXTREMITIES EXAM: No peripheral edema. NEUROLOGICAL EXAM: alert, oriented X3, no focal neurological deficits SKIN EXAM: warm, dry, intact, normal color. Absent: rash - Labs CBC & Chem 7: 05/03/19 07:04 05/03/19 07:04 Labs: Abnormal Lab Results - Last 24 Hours (Table) 04/30/19 05/02/19 05/02/19 Range/Units 09:14 18:20 19:58 WBC (3.8-10.6) k/uL RBC (3.80-5.40) m/uL Hgb (11.4-16.0) gm/dL Hct (34.0-46.0) % RDW (11.5-15.5) % Plt Count (150-450) k/uL Neutrophils # (Manual) (1.3-7.7) k/uL Lymphocytes # (Manual) (1.0-4.8) k/uL Potassium (3.5-5.1) mmol/L BUN (7-17) mg/dL Glucose (74-99) mg/dL POC Glucose (mg/dL) 200 H (75-99) mg/dL Calcium (8.4-10.2) mg/dL Total Bilirubin (0.2-1.3) mg/dL AST (14-36) U/L Troponin I 0.068 H* (0.000-0.034) ng/mL Total Protein (6.3-8.2) g/dL Albumin (3.5-5.0) g/dL Crossmatch See Detail 05/02/19 05/02/19 05/02/19 Range/Units 20:49 20:49 22:44 WBC 31.8 H (3.8-10.6) k/uL RBC 1.96 L (3.80-5.40) m/uL Hgb 6.5 L* (11.4-16.0) gm/dL Hct 19.0 L* (34.0-46.0) % RDW 18.2 H (11.5-15.5) % Plt Count 28 L D (150-450) k/uL Neutrophils # (Manual) (1.3-7.7) k/uL Lymphocytes # (Manual) (1.0-4.8) k/uL Potassium 3.1 L (3.5-5.1) mmol/L BUN 22 H (7-17) mg/dL Glucose 174 H (74-99) mg/dL POC Glucose (mg/dL) (75-99) mg/dL Calcium 6.6 L (8.4-10.2) mg/dL Total Bilirubin (0.2-1.3) mg/dL AST (14-36) U/L Troponin I (0.000-0.034) ng/mL Total Protein (6.3-8.2) g/dL Albumin (3.5-5.0) g/dL Crossmatch See Detail 05/02/19 05/03/19 05/03/19 Range/Units 23:43 03:54 07:04 WBC (3.8-10.6) k/uL RBC (3.80-5.40) m/uL Hgb (11.4-16.0) gm/dL Hct (34.0-46.0) % RDW (11.5-15.5) % Plt Count (150-450) k/uL Neutrophils # (Manual) (1.3-7.7) k/uL Lymphocytes # (Manual) (1.0-4.8) k/uL Potassium 3.4 L (3.5-5.1) mmol/L BUN 26 H (7-17) mg/dL Glucose 146 H (74-99) mg/dL POC Glucose (mg/dL) 173 H 171 H (75-99) mg/dL Calcium 6.6 L (8.4-10.2) mg/dL Total Bilirubin 2.4 H (0.2-1.3) mg/dL AST 10 L (14-36) U/L Troponin I (0.000-0.034) ng/mL Total Protein 5.4 L (6.3-8.2) g/dL Albumin 3.2 L (3.5-5.0) g/dL Crossmatch 05/03/19 05/03/19 05/03/19 Range/Units 07:04 07:39 11:47 WBC 40.4 H (3.8-10.6) k/uL RBC 2.69 L (3.80-5.40) m/uL Hgb 8.8 L D (11.4-16.0) gm/dL Hct 25.8 L (34.0-46.0) % RDW 19.1 H (11.5-15.5) % Plt Count 20 L (150-450) k/uL Neutrophils # (Manual) 0.40 L* (1.3-7.7) k/uL Lymphocytes # (Manual) 39.19 H (1.0-4.8) k/uL Potassium (3.5-5.1) mmol/L BUN (7-17) mg/dL Glucose (74-99) mg/dL POC Glucose (mg/dL) 148 H 165 H (75-99) mg/dL Calcium (8.4-10.2) mg/dL Total Bilirubin (0.2-1.3) mg/dL AST (14-36) U/L Troponin I (0.000-0.034) ng/mL Total Protein (6.3-8.2) g/dL Albumin (3.5-5.0) g/dL Crossmatch 05/03/19 Range/Units 15:30 WBC (3.8-10.6) k/uL RBC (3.80-5.40) m/uL Hgb (11.4-16.0) gm/dL Hct (34.0-46.0) % RDW (11.5-15.5) % Plt Count (150-450) k/uL Neutrophils # (Manual) (1.3-7.7) k/uL Lymphocytes # (Manual) (1.0-4.8) k/uL Potassium (3.5-5.1) mmol/L BUN (7-17) mg/dL Glucose (74-99) mg/dL POC Glucose (mg/dL) 176 H (75-99) mg/dL Calcium (8.4-10.2) mg/dL Total Bilirubin (0.2-1.3) mg/dL AST (14-36) U/L Troponin I (0.000-0.034) ng/mL Total Protein (6.3-8.2) g/dL Albumin (3.5-5.0) g/dL Crossmatch Microbiology - Last 24 Hours (Table) 05/02/19 12:45 Blood Culture - Preliminary Blood No Growth after 24 hours 05/01/19 10:02 Blood Culture - Preliminary Blood No Growth after 48 hours 05/02/19 14:17 Urine Culture - Preliminary Urine,Catheterized Assessment and Plan Assessment: ASSESSMENT Acute hypoxic respiratory failure - multifactorial diastolic CHF, pneumonia, transfusion related acute lung injury Pancytopenia Possible sepsis History of CLL Diastolic congestive heart failure History of right breast cancer status post lumpectomy, chemotherapy and radiation therapy Hypertension Hyperlipidemia Former smoker Obesity hypoventilation syndrome Morbid obesity with BMI of 45 Mild mitral regurgitation and aortic stenosis PLAN: Patient's respiratory status is improving very slowly. She has been off of BiPAP and is currently on high flow nasal oxygen. We'll continue with diuretic therapy and empiric antibiotics until the blood cultures come back. Pulmonary, oncology, infectious disease consultants on board and following the patient closely. Overall prognosis remains poor. Further recommendations to follow depending on the progress of the patient. Time with Patient: Greater than 30 (Complicated with multiple medical conditions)
[2019-05-03 20:13] LABS: Glucose,Whole Blood 307 mg/dL (75-99)
[2019-05-03] MEDS ORDERED: INSULIN ASPART (NovoLOG) 100 UNIT/ML VIAL SQ ONE (20:18)
[2019-05-03] MEDS: ATORVASTATIN 40 MG TAB PO SCH (20:26)
[2019-05-03] MEDS: methylPREDNISolone SOD SUCCI 40 MG/ML 1 ML VIAL IV SCH (23:38)
[2019-05-04] MEDS: CEFEPIME 2 GM in SODIUM CHLORIDE 0.9% 100 ML IVPB SCH ×3 (03:36→20:03)
[2019-05-04 05:14] LABS: Anisocytosis Slight; HCT 25.1 % (34.0-46.0); HGB 8.4 gm/dL (11.4-16.0); MCH 32.4 pg (25.0-35.0); MCHC 33.7 g/dL (31.0-37.0); Macrocytosis Slight; Mean Platelet Volume 8.4; RBC 2.61 m/uL (3.80-5.40); RDW 18.8 % (11.5-15.5); WBC 42.4 k/uL (3.8-10.6)
[2019-05-04 05:24] LABS: Platelet Count 8 k/uL (150-450)
[2019-05-04 05:43] LABS: ALT 24 U/L (9-52); AST 11 U/L (14-36); African American GFR (CKD) >90 (>60 ml/min/1.73 sqM); Alkaline Phosphatase 45 U/L (38-126); Anion Gap 9 mmol/L; Blood Urea Nitrogen 29 mg/dL (7-17); Carbon Dioxide 28 mmol/L (22-30); Chloride 104 mmol/L (98-107); Glucose 177 mg/dL (74-99); Sodium 141 mmol/L (137-145); Total Bilirubin 2.2 mg/dL (0.2-1.3); Total Protein 5.4 g/dL (6.3-8.2)
[2019-05-04 05:47] LABS: Lymphocytes # (M) 41.98 k/uL (1.0-4.8); Monocytes # (M) 0.42 k/uL (0-1.0); Neutrophils % (M) 1 %; Nucleated Red Blood Cells 0 /100 WBC (0-0); Total Cells Counted 200
--- NOTE | 2019-05-04 07:04 | XR ---
EXAMINATION TYPE: XR chest 1V portable DATE OF EXAM: 05/04/2019 HISTORY: Shortness of breath . REFERENCE: Previous study dated 05/03/2019. FINDINGS: A left-sided MediPort remains in place, unchanged in appearance. Masslike density in the perihilar region on the right remains unchanged. There is worsening airspace disease involving the left upper lobe. There is a worsening left effusion. The heart is mildly enlarg ed. IMPRESSION: 1. CONTINUING MASSLIKE DENSITY IN THE RIGHT PERIHILAR REGION. 2. WORSENING LEFT-SIDED EFFUSION. 3. CONTINUING LEFT-SIDED AIRSPACE DISEASE IN THE LEFT UPPER LOBE AND LEFT LOWER LOBE.
[2019-05-04] MEDS: INSULIN ASPART (NovoLOG) 100 UNIT/ML VIAL SQ SCH ×4 (07:08→20:28)
[2019-05-04 07:10] LABS: Glucose,Whole Blood 197 mg/dL (75-99)
[2019-05-04] MEDS ORDERED: RX INFO: IV CONTRAST WAS GIVEN 1 EACH MISC MISCELLANE PRN (07:31)
[2019-05-04] MEDS ORDERED: CALCIUM CHLORIDE 100 MG/ML 10 ML SYRINGE IVP ONE (07:34)
[2019-05-04] MEDS: IPRATROPIUM-ALBUTEROL 3 ML NEB INHALATION SCH ×4 (07:40→19:11)
--- NOTE | 2019-05-04 08:47 | CT ---
EXAMINATION TYPE: CT chest w con DATE OF EXAM: 05/04/2019 COMPARISON: Previous study dated 04/26/2016. HISTORY: Respiratory issues, history of breast CA and CLL CT DLP: 455.1 mGycm Automated exposure control for dose reduction was used. CONTRAST: CT scan of the chest is performed with IV Contrast, patient injected with 100 mL of Isovue 300. FINDINGS: There is a large area of consolidation with air bronchograms in the apical posterior segmen t of the left upper lobe. There is also consolidation at the left lung base. There is some groundglas s opacity in the apical segment of the right upper lobe and there is consolidation in the right middl e lobe. There are bilateral effusions, greater on the left than the right. There is no significant axillary, internal mammary, mediastinal or hilar adenopathy. There is no cindy cardial fluid the heart is mildly enlarged. Visualized portions of the upper abdomen appear unremarkable. There is some hypertrophic spondylosis within the spine. IMPRESSION: 1. Bilateral areas of consolidation consistent with pneumonia. 2. Bilateral pleural effusions greater on the left than the right.
[2019-05-04] MEDS ORDERED: VANCOMYCIN TROUGH DUE 1 EACH MISC MISCELLANE ONE (09:00)
[2019-05-04] MEDS: ANIDULAFUNGIN 100 MG in SODIUM CHLORIDE 0.9% 100 ML IVPB SCH (09:07)
[2019-05-04] MEDS: amLODIPine 5 MG TAB PO SCH ×2 (09:08→20:28)
[2019-05-04] MEDS: METOPROLOL TARTRATE 25 MG TAB PO SCH ×2 (09:08→20:28)
[2019-05-04] MEDS: FERROUS SULFATE 325 MG TAB PO SCH (09:08)
[2019-05-04] MEDS: methylPREDNISolone SOD SUCCI 40 MG/ML 1 ML VIAL IV SCH ×3 (09:08→23:28)
[2019-05-04] MEDS: FUROSEMIDE 10 MG/ML 4 ML VIAL IV SCH (09:08)
[2019-05-04] MEDS: DOCUSATE 100 MG CAP PO SCH (09:08)
[2019-05-04] MEDS: POTASSIUM CHLORIDE ER 20 MEQ TAB.ER PO SCH ×2 (09:08→10:02)
[2019-05-04] MEDS: FILGRASTIM-SNDZ 480 MCG/0.8 ML SYRINGE SQ SCH (09:08)
[2019-05-04] MEDS: ANASTROZOLE 1 MG TAB PO SCH (09:09)
[2019-05-04] MEDS: VANCOMYCIN 1,750 MG in SODIUM CHLORIDE 0.9% 500 ML 500 ML IVPB SCH ×2 (09:13→20:32)
--- NOTE | 2019-05-04 09:19 | P.PN ---
Subjective Progress Note Date: 05/04/19 This 73-year-old female is admitted to the hospital with the thrombocytopenia, anemia requiring platelet and blood transfusion. Subsequently she became short of breath and developed respiratory difficulties. It was suspected that patient might have had a reaction to the transfusion, or congestive heart failure. Patient is feeling better. Chest x-ray and computed tomography scan findings are consistent with pneumonia and pleural effusion. Patient developed hypokalaemia and hypocalcemia, and platelet count is low. I'm going to cut back the dose of the Lasix to once daily.correct hypokalemia. Further recommendations depend upon the clinical course. Patient may need further transfusions Objective - Vital Signs Vital signs: Vital Signs Temp 98.1 F 05/04/19 04:00 Pulse 77 05/04/19 07:49 Resp 19 05/04/19 07:00 BP 134/69 05/04/19 07:00 Pulse Ox 98 05/04/19 07:16 Intake & Output 05/03/19 05/04/19 05/04/19 18:59 06:59 18:59 Intake Total 1167 330 20 Output Total 3570 1925 30 Balance -2403 -1595 -10 Weight 107.2 kg Intake: IV 487 330 20 .9 220 230 20 Cefepime 2 gm In Sodium 100 100 Chloride 0.9% 100 ml @ 200 mls/hr IVPB Q8H [facility] Rx#:[id number] Vancomycin 1,750 mg In 167 Sodium Chloride 0.9% 500 ml 500 ml @ 167 mls/hr IVPB Q16H [facility] Rx#: [id number] Oral 680 Output: Urine 3570 1925 30 Uretheral (Espinoza) 630 Other: Voiding Method Indwelling Catheter Indwelling Catheter # Bowel Movements 1 - Exam GENERAL EXAM: Patient is alert and oriented and doesn't appear to be in any acute distress HEENT: Normocephalic. Normal reaction of pupils, equal size, normal range of extraocular motion. No erythema or exudates in the throat. NECK: No masses, no nuchal rigidity. CHEST: No chest wall deformity. LUNGS: Diminished breath sounds in both bases HEART: S1 and S2 normal with no audible mumurs or gallops. Regular rhythm, femorals equal on both sides.. ABDOMEN: No hepatosplenomegaly, normal bowel sounds, no guarding or rigidity. SKIN: No rashes CENTRAL NERVOUS SYSTEM: No focal deficits. EXTREMITIES: No cyanosis, clubbing or edema. - Labs CBC & Chem 7: 05/04/19 05:02 05/04/19 05:02 Labs: Abnormal Lab Results - Last 24 Hours (Table) 05/03/19 05/03/19 05/03/19 Range/Units 11:47 15:30 20:01 WBC (3.8-10.6) k/uL RBC (3.80-5.40) m/uL Hgb (11.4-16.0) gm/dL Hct (34.0-46.0) % RDW (11.5-15.5) % Plt Count (150-450) k/uL Neutrophils # (Manual) (1.3-7.7) k/uL Lymphocytes # (Manual) (1.0-4.8) k/uL Potassium (3.5-5.1) mmol/L BUN (7-17) mg/dL Glucose (74-99) mg/dL POC Glucose (mg/dL) 165 H 176 H 307 H (75-99) mg/dL Calcium (8.4-10.2) mg/dL Ionized Calcium Carlos (4.5-5.3) mg/dL Total Bilirubin (0.2-1.3) mg/dL AST (14-36) U/L Total Protein (6.3-8.2) g/dL Albumin (3.5-5.0) g/dL 05/04/19 05/04/19 05/04/19 Range/Units 05:02 05:02 06:44 WBC 42.4 H (3.8-10.6) k/uL RBC 2.61 L (3.80-5.40) m/uL Hgb 8.4 L (11.4-16.0) gm/dL Hct 25.1 L (34.0-46.0) % RDW 18.8 H (11.5-15.5) % Plt Count 8 L* D (150-450) k/uL Neutrophils # (Manual) 0.42 L* (1.3-7.7) k/uL Lymphocytes # (Manual) 41.98 H (1.0-4.8) k/uL Potassium 3.0 L (3.5-5.1) mmol/L BUN 29 H (7-17) mg/dL Glucose 177 H (74-99) mg/dL POC Glucose (mg/dL) (75-99) mg/dL Calcium 6.0 L* (8.4-10.2) mg/dL Ionized Calcium Carlos 3.5 L* (4.5-5.3) mg/dL Total Bilirubin 2.2 H (0.2-1.3) mg/dL AST 11 L (14-36) U/L Total Protein 5.4 L (6.3-8.2) g/dL Albumin 3.0 L (3.5-5.0) g/dL 05/04/19 Range/Units 06:57 WBC (3.8-10.6) k/uL RBC (3.80-5.40) m/uL Hgb (11.4-16.0) gm/dL Hct (34.0-46.0) % RDW (11.5-15.5) % Plt Count (150-450) k/uL Neutrophils # (Manual) (1.3-7.7) k/uL Lymphocytes # (Manual) (1.0-4.8) k/uL Potassium (3.5-5.1) mmol/L BUN (7-17) mg/dL Glucose (74-99) mg/dL POC Glucose (mg/dL) 197 H (75-99) mg/dL Calcium (8.4-10.2) mg/dL Ionized Calcium Carlos (4.5-5.3) mg/dL Total Bilirubin (0.2-1.3) mg/dL AST (14-36) U/L Total Protein (6.3-8.2) g/dL Albumin (3.5-5.0) g/dL Microbiology - Last 24 Hours (Table) 05/02/19 22:44 Blood Culture - Preliminary Blood No Growth after 24 hours 05/02/19 14:17 Urine Culture - Final Urine,Catheterized 05/02/19 12:45 Blood Culture - Preliminary Blood No Growth after 24 hours 05/01/19 10:02 Blood Culture - Preliminary Blood No Growth after 48 hours Assessment and Plan (1) Acute respiratory failure with hypoxia Current Visit: Yes Status: Acute Code(s): J96.01 - ACUTE RESPIRATORY FAILURE WITH HYPOXIA SNOMED Code(s): 60654525 (2) Diastolic CHF Current Visit: Yes Status: Acute Code(s): I50.30 - UNSPECIFIED DIASTOLIC (CONGESTIVE) HEART FAILURE SNOMED Code(s): 263846643 (3) Pneumonia Current Visit: Yes Status: Acute Code(s): J18.9 - PNEUMONIA, UNSPECIFIED ORGANISM SNOMED Code(s): 857290211 (4) Elevated troponin Current Visit: Yes Status: Acute Code(s): R74.8 - ABNORMAL LEVELS OF OTHER SERUM ENZYMES SNOMED Code(s): 384832557 (5) Essential hypertension Current Visit: Yes Status: Acute Code(s): I10 - ESSENTIAL (PRIMARY) HYPERTENSION SNOMED Code(s): 62755209 Plan: Chest x-ray and computed tomography scan findings are consistent with pneumonia. I'm going Back to Lasix to once daily. We'll continue to correct her hypokalemia. Patient developed profound thrombocytopenia and may require further transfusions
--- NOTE | 2019-05-04 10:20 | PN ---
PROGRESS NOTE DATE OF SERVICE: May 04, 2019 Critical care time 33 minutes. A 73-year-old female whom we were asked to see in consultation a couple days ago for acute hypoxemic respiratory failure, which seemed to be temporally associated to packed red blood cell transfusion. We thought it was very likely that the patient had a transfusion related acute lung injury (TRALI). Anyway, the patient has improved. The patient's chest x-ray still showing a dense lesion in the right mid lung/ right lower lobe area. I am going to get a CT scan for that. I did look at her chest x-ray today. She is currently on AIRVO at 55 L/minute and 70% FiO2. Her microbiologic studies are negative. Her chest x-ray was evaluated. She is on saline IV at KVO. Clinically, she is feeling better. She does have a history of chronic lymphocytic leukemia, possible sepsis, pancytopenia, diastolic CHF, aortic stenosis, breast cancer, hypertension, hyperlipidemia, and severe sleep apnea syndrome, currently on CPAP. The patient states that her breathing is much improved. She is not having any pain in the chest. She is coughing occasionally. Not producing any phlegm. There is no fever or chills. Overall, she has improved clinically. Not so much radiographically. VITAL SIGNS: Current vital signs are reviewed. Temperature is 98.1, heart rate 71, respiratory rate 19, blood pressure 134/69, mean 90, saturations are 98% on the AIRVO. She appears in no acute distress. She does not appear to have any conversational dyspnea. There is no audible wheezing or use of accessory muscles. HEENT examination is grossly unremarkable. Mucous membranes are moist. AIRVO device is noted. NECK: Neck is supple. Full range of motion. No adenopathy or thyromegaly. Neck veins are flat. CARDIOVASCULAR examination reveals regular rhythm and rate. Heart rate mid 70s. S1, S2 normal. No clear-cut murmur noted. Heart sounds are distant. LUNGS: Reveal diffuse rhonchi. A few scattered crackles. Breath sounds equal. They are improved in my opinion. Abdomen soft. Bowel sounds are heard. EXTREMITIES are intact. Minimal edema. SKIN: Without rash. NEUROLOGIC examination completely nonfocal. Microbiologic studies including blood, urine and specimens are negative. LAB DATA: Reviewed. White count 42.4, hemoglobin 8.4, hematocrit 25.1, platelet count 8000. Sodium 141, potassium 3, chloride 104, CO2 28. Anion gap is 9. BUN and creatinine were 29 and 0.62. Her calcium was 6, her ionized calcium was low at 3.5. Total bilirubin is 2.2. Chest x-ray shows diffuse bilateral infiltrates. She has a dense consolidation in the right mid lung. She appears to have either lung collapse in the left lower lobe, or increasing effusion left lower lobe. In addition, she has some dense infiltrates in the left upper lobe, left mid lung area. Medications are reviewed. She is being treated with antifungals and antibiotics for suspected pneumonia. Other medications are appropriate including steroids and breathing treatments. ASSESSMENT: 1. Acute hypoxemic respiratory failure, likely multifactorial, in part related to underlying transfusion related acute lung injury (TRALI), congestive heart failure, and/or pneumonia. 2. Possible sepsis. 3. Pancytopenia secondary to the patient's chronic lymphocytic leukemia. 4. History of Rituxan therapy for chronic lymphocytic leukemia. 5. Diastolic congestive heart failure with an ejection fraction of 60-65 percent. 6. Troponin leak, likely related to supply demand mismatch rather than ischemia. 7. Mild aortic stenosis, mild to moderate pulmonary hypertension, and moderate mitral regurgitation by echocardiogram. 8. History of breast cancer, status post lumpectomy and chemotherapy/radiation therapy. 9. Hypertension. 10.Hyperlipidemia. 11.Previous history of tobacco use. 12.Obstructive sleep apnea syndrome. PLAN: The patient will get some calcium replacement. We will also send her for CT of the chest with contrast. Prognosis is very guarded. Additional recommendations and suggestions are forthcoming. Continue with breathing treatments, steroids and antibiotics. Her respiratory status is slow to improve. I am concerned about the density in the right mid lung. In addition, she seems to be having more consolidative changes in the left upper lobe and lingular region of the lung. Again, we will continue to follow. Critical care time 33 minutes. MMODL / IJN: [id number] /
--- NOTE | 2019-05-04 11:13 | P.PN ---
Subjective Progress Note Date: 05/04/19 The patient subjectively feels somewhat stronger in the short of breath. However workup for respirations to increase and she continues on high flow oxygen. She denies any productive cough. No fevers or chills. No obvious bleeding. Objective - Vital Signs Vital signs: Vital Signs Temp 98.0 F 05/04/19 08:00 Pulse 73 05/04/19 11:01 Resp 18 05/04/19 10:00 BP 117/94 05/04/19 10:00 Pulse Ox 94 L 05/04/19 10:00 Intake & Output 05/03/19 05/04/19 05/04/19 18:59 06:59 18:59 Intake Total 1167 330 674 Output Total 3570 1925 1630 Balance -7039 -5760 -845 Weight 107.2 kg Intake: IV 487 330 374 .9 220 230 40 Cefepime 2 gm In Sodium 100 100 Chloride 0.9% 100 ml @ 200 mls/hr IVPB Q8H [facility] Rx#:[id number] Vancomycin 1,750 mg In 167 334 Sodium Chloride 0.9% 500 ml 500 ml @ 167 mls/hr IVPB Q16H [facility] Rx#: [id number] Oral 680 300 Output: Urine 3570 1925 1630 Uretheral (Espinoza) 630 300 Other: Voiding Method Indwelling Catheter Indwelling Catheter Indwelling Catheter # Voids 1 # Bowel Movements 1 - Constitutional General appearance: Present: no acute distress - EENT Eyes: Present: EOMI ENT: Present: hearing grossly normal, normal oropharynx - Respiratory Respiratory: bilateral: diminished - Cardiovascular Rhythm: regular Heart sounds: normal: S1, S2 - Gastrointestinal General gastrointestinal: Present: normal bowel sounds, soft - Integumentary Integumentary: Present: normal - Neurologic Neurologic: Present: CNII-XII intact - Musculoskeletal Musculoskeletal: Present: generalized weakness, strength equal bilaterally - Psychiatric Psychiatric: Present: A&O x's 3, appropriate affect - Labs CBC & Chem 7: 05/04/19 05:02 05/04/19 05:02 Labs: Abnormal Lab Results - Last 24 Hours (Table) 05/03/19 05/03/19 05/03/19 Range/Units 11:47 15:30 20:01 WBC (3.8-10.6) k/uL RBC (3.80-5.40) m/uL Hgb (11.4-16.0) gm/dL Hct (34.0-46.0) % RDW (11.5-15.5) % Plt Count (150-450) k/uL Neutrophils # (Manual) (1.3-7.7) k/uL Lymphocytes # (Manual) (1.0-4.8) k/uL Potassium (3.5-5.1) mmol/L BUN (7-17) mg/dL Glucose (74-99) mg/dL POC Glucose (mg/dL) 165 H 176 H 307 H (75-99) mg/dL Calcium (8.4-10.2) mg/dL Ionized Calcium Carlos (4.5-5.3) mg/dL Total Bilirubin (0.2-1.3) mg/dL AST (14-36) U/L Total Protein (6.3-8.2) g/dL Albumin (3.5-5.0) g/dL 05/04/19 05/04/19 05/04/19 Range/Units 05:02 05:02 06:44 WBC 42.4 H (3.8-10.6) k/uL RBC 2.61 L (3.80-5.40) m/uL Hgb 8.4 L (11.4-16.0) gm/dL Hct 25.1 L (34.0-46.0) % RDW 18.8 H (11.5-15.5) % Plt Count 8 L* D (150-450) k/uL Neutrophils # (Manual) 0.42 L* (1.3-7.7) k/uL Lymphocytes # (Manual) 41.98 H (1.0-4.8) k/uL Potassium 3.0 L (3.5-5.1) mmol/L BUN 29 H (7-17) mg/dL Glucose 177 H (74-99) mg/dL POC Glucose (mg/dL) (75-99) mg/dL Calcium 6.0 L* (8.4-10.2) mg/dL Ionized Calcium Carlos 3.5 L* (4.5-5.3) mg/dL Total Bilirubin 2.2 H (0.2-1.3) mg/dL AST 11 L (14-36) U/L Total Protein 5.4 L (6.3-8.2) g/dL Albumin 3.0 L (3.5-5.0) g/dL 05/04/19 Range/Units 06:57 WBC (3.8-10.6) k/uL RBC (3.80-5.40) m/uL Hgb (11.4-16.0) gm/dL Hct (34.0-46.0) % RDW (11.5-15.5) % Plt Count (150-450) k/uL Neutrophils # (Manual) (1.3-7.7) k/uL Lymphocytes # (Manual) (1.0-4.8) k/uL Potassium (3.5-5.1) mmol/L BUN (7-17) mg/dL Glucose (74-99) mg/dL POC Glucose (mg/dL) 197 H (75-99) mg/dL Calcium (8.4-10.2) mg/dL Ionized Calcium Carlos (4.5-5.3) mg/dL Total Bilirubin (0.2-1.3) mg/dL AST (14-36) U/L Total Protein (6.3-8.2) g/dL Albumin (3.5-5.0) g/dL Microbiology - Last 24 Hours (Table) 05/02/19 22:44 Blood Culture - Preliminary Blood No Growth after 24 hours 05/02/19 14:17 Urine Culture - Final Urine,Catheterized 05/02/19 12:45 Blood Culture - Preliminary Blood No Growth after 24 hours 05/01/19 10:02 Blood Culture - Preliminary Blood No Growth after 48 hours Assessment and Plan (1) Pneumonia Narrative/Plan: The patient had a CT of the chest today, which showed significant consolidation in the left upper lobe, as well as other areas in the left lower and right middle lobe with air bronchograms. This appears to be most consistent with pneumonia. Patient has not been able to produce a sputum sample. Blood cultures however remained negative. The fever has not recurred. Continue antibiotics, and supportive care per CCM/ID Current Visit: Yes Status: Acute Code(s): J18.9 - PNEUMONIA, UNSPECIFIED ORGANISM SNOMED Code(s): 438091823 (2) SIRS (systemic inflammatory response syndrome) Narrative/Plan: Based on the CT results done today, this appears to be due to sepsis from pneumonia, rather than transfusion related event or CLL. Hemodynamics are improved though the patient continues on high flow oxygen. Symptomatically she is improving. Continue current care Current Visit: Yes Status: Acute Code(s): R65.10 - SIRS OF NON-INFECTIOUS ORIGIN W/O ACUTE ORGAN DYSFUNCTION SNOMED Code(s): 634569900 (3) Thrombocytopenia Narrative/Plan: Platelet count was down to 8000 today. Unit of platelets 7 ordered. She continues on IV steroids. IVIG was also ordered but is not available. Expect platelet counts show more sustained improvement once we're able to start treatment for her CLL Current Visit: Yes Status: Acute Code(s): D69.6 - THROMBOCYTOPENIA, UNSPECIFIED SNOMED Code(s): 224036070 (4) CLL (chronic lymphocytic leukemia) Narrative/Plan: Bendamustine/Rituxan is planned. Treatment is on hold until the patient recover sufficiently from her pneumonia/sepsis Current Visit: Yes Status: Acute Priority: High Code(s): C91.90 - LYMPHOID LEUKEMIA, UNSPECIFIED NOT HAVING ACHIEVED REMISSION SNOMED Code(s): 95775904 (5) Pancytopenia Narrative/Plan: Platelet transfusion ordered as noted. The patient is also on filgrastim with slight increase in her ANC into the 400 range from 0. Continue filgrastim. Continue to monitor with supportive transfusions as needed to keep hemoglobin greater than 7 and platelets presented Current Visit: Yes Status: Acute Priority: High Code(s): D61.818 - OTHER PANCYTOPENIA SNOMED Code(s): 382909115 (6) Breast cancer Current Visit: No Status: Chronic Priority: Low Code(s): C50.919 - MALIGNANT NEOPLASM OF UNSP SITE OF UNSPECIFIED FEMALE BREAST SNOMED Code(s): 040876823 (7) Gastrointestinal stromal neoplasm Current Visit: Yes Status: Acute Code(s): C49.A0 - GASTROINTESTINAL STROMAL TUMOR, UNSPECIFIED SITE SNOMED Code(s): 721133872
--- NOTE | 2019-05-04 11:47 | P.PN ---
Subjective Progress Note Date: 04/29/19 The patient denies any new symptoms at this time. No active bleeding noted. She feels that she may have some fresh bruising on her arms but not otherwise. No fever or chills. Appetite is maintained. Objective - Vital Signs Vital signs: Vital Signs Temp 98.0 F 05/04/19 08:00 Pulse 72 05/04/19 11:15 Resp 18 05/04/19 10:00 BP 117/94 05/04/19 10:00 Pulse Ox 94 L 05/04/19 10:00 Intake & Output 05/03/19 05/04/19 05/04/19 18:59 06:59 18:59 Intake Total 1167 330 674 Output Total 3570 1925 1630 Balance -6188 -9463 -297 Weight 107.2 kg Intake: IV 487 330 374 .9 220 230 40 Cefepime 2 gm In Sodium 100 100 Chloride 0.9% 100 ml @ 200 mls/hr IVPB Q8H [facility] Rx#:[id number] Vancomycin 1,750 mg In 167 334 Sodium Chloride 0.9% 500 ml 500 ml @ 167 mls/hr IVPB Q16H [facility] Rx#: [id number] Oral 680 300 Output: Urine 3570 1925 1630 Uretheral (Espinoza) 630 300 Other: Voiding Method Indwelling Catheter Indwelling Catheter Indwelling Catheter # Voids 1 # Bowel Movements 1 - Constitutional General appearance: Present: no acute distress - EENT Eyes: Present: EOMI ENT: Present: normal oropharynx - Respiratory Respiratory: bilateral: CTA - Cardiovascular Rhythm: regular Heart sounds: normal: S1, S2 - Gastrointestinal General gastrointestinal: Present: normal bowel sounds, soft - Integumentary Integumentary Comment(s): Petechia mostly resolved. Scattered bruising on medial upper extremities - Musculoskeletal Musculoskeletal: Present: strength equal bilaterally - Psychiatric Psychiatric: Present: A&O x's 3, appropriate affect - Labs CBC & Chem 7: 05/04/19 05:02 05/04/19 05:02 Labs: Abnormal Lab Results - Last 24 Hours (Table) 05/03/19 05/03/19 05/03/19 Range/Units 11:47 15:30 20:01 WBC (3.8-10.6) k/uL RBC (3.80-5.40) m/uL Hgb (11.4-16.0) gm/dL Hct (34.0-46.0) % RDW (11.5-15.5) % Plt Count (150-450) k/uL Neutrophils # (Manual) (1.3-7.7) k/uL Lymphocytes # (Manual) (1.0-4.8) k/uL Potassium (3.5-5.1) mmol/L BUN (7-17) mg/dL Glucose (74-99) mg/dL POC Glucose (mg/dL) 165 H 176 H 307 H (75-99) mg/dL Calcium (8.4-10.2) mg/dL Ionized Calcium Carlos (4.5-5.3) mg/dL Total Bilirubin (0.2-1.3) mg/dL AST (14-36) U/L Total Protein (6.3-8.2) g/dL Albumin (3.5-5.0) g/dL 05/04/19 05/04/19 05/04/19 Range/Units 05:02 05:02 06:44 WBC 42.4 H (3.8-10.6) k/uL RBC 2.61 L (3.80-5.40) m/uL Hgb 8.4 L (11.4-16.0) gm/dL Hct 25.1 L (34.0-46.0) % RDW 18.8 H (11.5-15.5) % Plt Count 8 L* D (150-450) k/uL Neutrophils # (Manual) 0.42 L* (1.3-7.7) k/uL Lymphocytes # (Manual) 41.98 H (1.0-4.8) k/uL Potassium 3.0 L (3.5-5.1) mmol/L BUN 29 H (7-17) mg/dL Glucose 177 H (74-99) mg/dL POC Glucose (mg/dL) (75-99) mg/dL Calcium 6.0 L* (8.4-10.2) mg/dL Ionized Calcium Carlos 3.5 L* (4.5-5.3) mg/dL Total Bilirubin 2.2 H (0.2-1.3) mg/dL AST 11 L (14-36) U/L Total Protein 5.4 L (6.3-8.2) g/dL Albumin 3.0 L (3.5-5.0) g/dL 05/04/19 Range/Units 06:57 WBC (3.8-10.6) k/uL RBC (3.80-5.40) m/uL Hgb (11.4-16.0) gm/dL Hct (34.0-46.0) % RDW (11.5-15.5) % Plt Count (150-450) k/uL Neutrophils # (Manual) (1.3-7.7) k/uL Lymphocytes # (Manual) (1.0-4.8) k/uL Potassium (3.5-5.1) mmol/L BUN (7-17) mg/dL Glucose (74-99) mg/dL POC Glucose (mg/dL) 197 H (75-99) mg/dL Calcium (8.4-10.2) mg/dL Ionized Calcium Carlos (4.5-5.3) mg/dL Total Bilirubin (0.2-1.3) mg/dL AST (14-36) U/L Total Protein (6.3-8.2) g/dL Albumin (3.5-5.0) g/dL Microbiology - Last 24 Hours (Table) 05/02/19 22:44 Blood Culture - Preliminary Blood No Growth after 24 hours 05/02/19 14:17 Urine Culture - Final Urine,Catheterized 05/02/19 12:45 Blood Culture - Preliminary Blood No Growth after 24 hours 05/01/19 10:02 Blood Culture - Preliminary Blood No Growth after 48 hours Assessment and Plan (1) Thrombocytopenia Narrative/Plan: This persists without much response to steroids so far.. Count was 12,000 today without evidence of active bleeding. Therefore transfusion was not required. Continue to monitor with ongoing IV steroid use, and supportive platelet transfusions as needed for counts less than 10,000 Current Visit: Yes Status: Acute Code(s): D69.6 - THROMBOCYTOPENIA, UNSPECIFIED SNOMED Code(s): 308388628 (2) Pancytopenia Narrative/Plan: As mentioned in the previous note, etiology somewhat unclear. The patient does have some progression of CLL but at this time it is not known if the drop in counts, including the above-mentioned tumor cytopenia is autoimmune in nature versus related purely to CLL progression, including transformation.. Therefore bone marrow respiration biopsy was performed earlier today for further workup. Await results. It was discussed with the patient and her family that it'll probably take at least a few days before results are available. In the meantime continue supportive care, with transfusions to keep hemoglobin greater than 7, and platelets greater than 10. Current Visit: Yes Status: Acute Priority: High Code(s): D61.818 - OTHER PANCYTOPENIA SNOMED Code(s): 413106068 (3) CLL (chronic lymphocytic leukemia) Narrative/Plan: There has been definite progression with increase in WBC. However degree of pancytopenia is significantly more than expected for this level of peripheral lymphocytosis. Therefore bone marrow aspiration biopsy is performed further workup. Await results Current Visit: Yes Status: Acute Priority: High Code(s): C91.90 - LYMPHOID LEUKEMIA, UNSPECIFIED NOT HAVING ACHIEVED REMISSION SNOMED Code(s): 31475939 (4) Breast cancer Narrative/Plan: Continue anastrozole Current Visit: No Status: Chronic Priority: Low Code(s): C50.919 - MA LIGNANT NEOPLASM OF UNSP SITE OF UNSPECIFIED FEMALE BREAST SNOMED Code(s): 545488369 (5) Gastrointestinal stromal neoplasm Narrative/Plan: Gleevec on hold until counts recover Current Visit: Yes Status: Acute Code(s): C49.A0 - GASTROINTESTINAL STROMAL TUMOR, UNSPECIFIED SITE SNOMED Code(s): 343410798
[2019-05-04 12:46] LABS: Glucose,Whole Blood 201 mg/dL (75-99)
--- NOTE | 2019-05-04 16:01 | P.PN ---
Subjective Progress Note Date: 05/04/19 Principal diagnosis: Acute hypoxic respiratory failure Ms. Ascencio is a 73-year-old female with a past medical history of breast cancer status post lumpectomy and chemotherapy and radiation therapy admitted to the hospital for thrombocytopenia. 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 Patient underwent bone marrow biopsy by Dr. Oliva on the . After that patient received 2 units of PRBCs, 2 units of platelets after which she became febrile and increasingly hypoxemic Sunday she had to be transferred to the ICU couple of days back. Patient had chest x-ray showing small left pleural effusion and also elevated BNP. Patient has history of heart failure, diastolic along with moderate mitral regurgitation and mild aortic stenosis. She has been started on diuretics, empiric antibiotics after obtaining blood cultures. Patient has been on BiPAP couple of days back and has been changed to 12 L of high flow nasal cannula yesterday. On 05/04/19 - Today the patient is lying comfortably in the bed. She still has difficulty in breathing, she has a note stating that even talking is making her short of breath. The patient had a repeat CAT scan of the chest done this morning showing bilateral pleural effusion more on the left compared to right. She is on Aervo at 55, 75 now. Active Medications Albuterol/Ipratropium (Duoneb 0.5 Mg-3 Mg/3 Ml Soln) 3 ml INHALATION RT-QID [facility] Last Admin: 05/04/19 15:57 Dose: 3 ml Documented by: Albuterol/Ipratropium (Duoneb 0.5 Mg-3 Mg/3 Ml Soln) 3 ml INHALATION RT-Q2H PRN PRN Reason: Shortness Of Breath Or Wheezing Amlodipine Besylate (Norvasc) 5 mg PO BID [facility] Last Admin: 05/04/19 09:08 Dose: 5 mg Documented by: Anastrozole (Arimidex) 1 mg PO DAILY [facility] Last Admin: 05/04/19 09:09 Dose: 1 mg Documented by: Atorvastatin Calcium (Lipitor) 40 mg PO HS [facility] Last Admin: 05/03/19 20:26 Dose: 40 mg Documented by: Docusate Sodium (Colace) 100 mg PO DAILY [facility] Last Admin: 05/04/19 09:08 Dose: 100 mg Documented by: Ferrous Sulfate (Feosol) 325 mg PO DAILY [facility] Last Admin: 05/04/19 09:08 Dose: 325 mg Documented by: Filgrastim (Zarxio) 480 mcg SQ DAILY [facility] Last Admin: 05/04/19 09:08 Dose: 480 mcg Documented by: Furosemide (Lasix) 40 mg IV DAILY [facility] Lactated Ringer's (Lactated Ringers) 1,000 mls @ 20 mls/hr IV .Q24H [facility] Last Admin: 05/01/19 18:13 Dose: Not Given Documented by: Anidulafungin 100 mg/ Sodium (Chloride) 100 mls @ 84 mls/hr IVPB DAILY [facility] Last Admin: 05/04/19 09:07 Dose: 84 mls/hr Documented by: Cefepime HCl 2 gm/ Sodium (Chloride) 100 mls @ 200 mls/hr IVPB Q8H [facility] Last Admin: 05/04/19 12:41 Dose: 200 mls/hr Documented by: Vancomycin HCl 1,750 mg/ (Sodium Chloride) 500 mls @ 167 mls/hr IVPB Q12H [facility] Last Admin: 05/04/19 09:13 Dose: 167 mls/hr Documented by: Insulin Aspart (Novolog) 0 unit SQ ACHS [facility]; Protocol Last Admin: 05/04/19 12:41 Dose: 6 unit Documented by: Lidocaine HCl (.Xylocaine 1% Inj (10mg/Ml) For Iv Start) 0.1 ml INTRADERMA PER PROTOCOL PRN PRN Reason: IV Start Methylprednisolone Sodium Succinate (Solu-Medrol) 40 mg IV Q8HR [facility] Last Admin: 05/04/19 09:08 Dose: 40 mg Documented by: Metoprolol Tartrate (Lopressor) 25 mg PO BID [facility] Last Admin: 05/04/19 09:08 Dose: 25 mg Documented by: Miscellaneous Information (Potassium Per Protocol) 1 each MISCELLANE DAILY PRN; Protocol PRN Reason: Per Protocol Miscellaneous Information (Rx Info: Iv Contrast Was Given) 1 each MISCELLANE DAILY PRN PRN Reason: Per Protocol Stop: 05/06/19 07:34 Naloxone HCl (Narcan) 0.2 mg IV Q2M PRN PRN Reason: Opioid Reversal Nitroglycerin (Nitrostat) 0.4 mg SUBLINGUAL ONCE PRN PRN Reason: Chest Pain Last Admin: 05/01/19 08:54 Dose: 0.4 mg Documented by: Ondansetron HCl (Zofran) 4 mg IVP Q6HR PRN PRN Reason: Nausea And Vomiting Last Admin: 05/01/19 23:06 Dose: 4 mg Documented by: Patient denies having any chest pain or palpitations. Denies having any lower extremity swelling. No abdominal pain nausea vomiting or diarrhea. No dysuria or hematuria. Patient's medications and labs have been reviewed: Objective - Vital Signs Vital signs: Vital Signs Temp 98.1 F 05/04/19 14:12 Pulse 78 05/04/19 15:00 Resp 22 05/04/19 15:00 BP 129/70 05/04/19 15:00 Pulse Ox 92 L 05/04/19 15:00 Intake & Output 05/03/19 05/04/19 05/04/19 18:59 06:59 18:59 Intake Total 9960 812 4680 Output Total 3570 1925 3380 [facility] -[phone] Weight 107.2 kg Intake: IV 487 330 691 .9 220 230 90 Cefepime 2 gm In Sodium 100 100 100 Chloride 0.9% 100 ml @ 200 mls/hr IVPB Q8H [facility] Rx#:[id number] Vancomycin 1,750 mg In 167 501 Sodium Chloride 0.9% 500 ml 500 ml @ 167 mls/hr IVPB Q16H [facility] Rx#: [id number] Oral 680 600 Blood Product 728 Platelet Pheresis Acda1 328 Unit [id number] Output: Urine 3570 1925 3380 Uretheral (Espinoza) 630 550 Other: Voiding Method Indwelling Catheter Indwelling Catheter Indwelling Catheter # Voids 1 # Bowel Movements 1 - Exam GEN. APPEARANCE: alert, in no apparent distress HEAD EXAM: atraumatic, normocephalic, normal inspection EYE EXAM: Mild pallor. No icterus. ENT EXAM: normal exam, mucous membranes moist RESPIRATORY EXAM: Diminished breath sounds in all lung finn. crackles at the lower lung bases both sides appreciated. No wheezes. CARDIOVASCULAR EXAM: S1-S2 heard. GI/ABDOMINAL EXAM: Abdomen is soft nontender. All sounds positive. EXTREMITIES EXAM: No peripheral edema. NEUROLOGICAL EXAM: alert, oriented X3, no focal neurological deficits SKIN EXAM: Bruise on the left index finger stable. Few bruises that are developing in her other fingertips noticed. - Labs CBC & Chem 7: 05/04/19 05:02 05/04/19 05:02 Labs: Abnormal Lab Results - Last 24 Hours (Table) 05/03/19 05/04/19 05/04/19 Range/Units 20:01 05:02 05:02 WBC 42.4 H (3.8-10.6) k/uL RBC 2.61 L (3.80-5.40) m/uL Hgb 8.4 L (11.4-16.0) gm/dL Hct 25.1 L (34.0-46.0) % RDW 18.8 H (11.5-15.5) % Plt Count 8 L* D (150-450) k/uL Neutrophils # (Manual) 0.42 L* (1.3-7.7) k/uL Lymphocytes # (Manual) 41.98 H (1.0-4.8) k/uL Potassium 3.0 L (3.5-5.1) mmol/L BUN 29 H (7-17) mg/dL Glucose 177 H (74-99) mg/dL POC Glucose (mg/dL) 307 H (75-99) mg/dL Calcium 6.0 L* (8.4-10.2) mg/dL Ionized Calcium Carlos (4.5-5.3) mg/dL Total Bilirubin 2.2 H (0.2-1.3) mg/dL AST 11 L (14-36) U/L Total Protein 5.4 L (6.3-8.2) g/dL Albumin 3.0 L (3.5-5.0) g/dL 05/04/19 05/04/19 05/04/19 Range/Units 06:44 06:57 12:35 WBC (3.8-10.6) k/uL RBC (3.80-5.40) m/uL Hgb (11.4-16.0) gm/dL Hct (34.0-46.0) % RDW (11.5-15.5) % Plt Count (150-450) k/uL Neutrophils # (Manual) (1.3-7.7) k/uL Lymphocytes # (Manual) (1.0-4.8) k/uL Potassium (3.5-5.1) mmol/L BUN (7-17) mg/dL Glucose (74-99) mg/dL POC Glucose (mg/dL) 197 H 201 H (75-99) mg/dL Calcium (8.4-10.2) mg/dL Ionized Calcium Carlos 3.5 L* (4.5-5.3) mg/dL Total Bilirubin (0.2-1.3) mg/dL AST (14-36) U/L Total Protein (6.3-8.2) g/dL Albumin (3.5-5.0) g/dL Microbiology - Last 24 Hours (Table) 05/02/19 12:45 Blood Culture - Preliminary Blood No Growth after 48 hours 05/01/19 10:02 Blood Culture - Preliminary Blood No Growth after 72 hours 05/02/19 22:44 Blood Culture - Preliminary Blood No Growth after 24 hours 05/02/19 14:17 Urine Culture - Final Urine,Catheterized Assessment and Plan Assessment: ASSESSMENT Acute hypoxic respiratory failure - multifactorial diastolic CHF, pneumonia, transfusion related acute lung injury Pancytopenia Possible sepsis History of CLL Diastolic congestive heart failure History of right breast cancer status post lumpectomy, chemotherapy and radiation therapy Hypertension Hyperlipidemia Former smoker Obesity hypoventilation syndrome Morbid obesity with BMI of 45 Mild mitral regurgitation and aortic stenosis PLAN: Patient's respiratory status is still the same. She has been off of BiPAP and is currently on high flow nasal oxygen. We'll continue with diuretic therapy and empiric antibiotics until the blood cultures come back. Pulmonary, oncology, infectious disease consultants on board and following the patient closely. Patient had a CAT scan of the chest done this morning showing bilateral pleural effusions more on the left compared to right and bilateral areas of consolidation consistent with pneumonia. Overall prognosis remains poor. Further recommendations to follow depending on the progress of the patient.
[2019-05-04 16:42] LABS: Glucose,Whole Blood 179 mg/dL (75-99)
--- NOTE | 2019-05-04 19:42 | PN ---
PROGRESS NOTE DATE OF SERVICE: 05/04/2019. REASON FOR FOLLOWUP: Pneumonia. INTERVAL HISTORY: The patient is currently afebrile. Patient has been breathing slightly comfortably. The patient denies any worsening chest pain. No nausea, no vomiting. No abdominal pain and no diarrhea. PHYSICAL EXAMINATION: Blood pressure 129/70 with a pulse of 73, temperature 98.1. She is 92% on high-flow oxygen. General description is an elderly female lying in bed in no distress. Respiratory system: Unlabored breathing with decreased breath sounds in the base. HEART: S1, S2. Regular rate and rhythm. Abdomen soft. No tenderness. LABS: Hemoglobin 8.4, white count 42.4, BUN of 29, creatinine is 0.62. Blood culture has been negative so far. The patient was unable to provide any sputum. CT did show evidence of bilateral lower lobe consolidation. DIAGNOSTIC IMPRESSION AND PLAN: Patient with fever and respiratory distress with concern for possible pneumonia, nosocomial versus transfusion reaction. The patient's fever responding to the cefepime and vancomycin to continue to try to obtain a sputum and monitor clinical course closely. Continue supportive care. MMODL / IJN: [id number] /
[2019-05-04] MEDS: ATORVASTATIN 40 MG TAB PO SCH (20:28)
[2019-05-04] MEDS: PANTOPRAZOLE 40 MG TABLET PO SCH (20:28)
[2019-05-04 20:34] LABS: Glucose,Whole Blood 223 mg/dL (75-99)
[2019-05-04] MEDS: IPRATROPIUM-ALBUTEROL 3 ML NEB INHALATION PRN (22:56)
[2019-05-05] MEDS: CEFEPIME 2 GM in SODIUM CHLORIDE 0.9% 100 ML IVPB SCH ×3 (03:23→20:24)
[2019-05-05] MEDS: IPRATROPIUM-ALBUTEROL 3 ML NEB INHALATION PRN ×2 (03:45→23:04)
[2019-05-05 04:51] LABS: Ionized Calcium 3.9 mg/dL (4.5-5.3)
[2019-05-05 04:54] LABS: Anisocytosis Slight; HCT 23.5 % (34.0-46.0); HGB 7.5 gm/dL (11.4-16.0); MCH 30.8 pg (25.0-35.0); MCHC 31.8 g/dL (31.0-37.0); MCV 96.9 fL (80.0-100.0); Macrocytosis Slight; Mean Platelet Volume 8.1; RBC 2.42 m/uL (3.80-5.40); RDW 17.4 % (11.5-15.5); WBC 35.4 k/uL (3.8-10.6)
[2019-05-05 04:55] LABS: Platelet Count 9 k/uL (150-450)
[2019-05-05 04:58] LABS: ALT 22 U/L (9-52); AST 11 U/L (14-36); African American GFR (CKD) >90 (>60 ml/min/1.73 sqM); Albumin 2.9 g/dL (3.5-5.0); Alkaline Phosphatase 41 U/L (38-126); Anion Gap 8 mmol/L; Blood Urea Nitrogen 28 mg/dL (7-17); Carbon Dioxide 28 mmol/L (22-30); Chloride 105 mmol/L (98-107); Glucose 179 mg/dL (74-99); Potassium 3.4 mmol/L (3.5-5.1); Sodium 141 mmol/L (137-145); Total Protein 5.2 g/dL (6.3-8.2)
[2019-05-05 05:05] LABS: Calcium 6.4 mg/dL (8.4-10.2)
[2019-05-05 05:10] LABS: Lymphocytes # (M) 35.05 k/uL (1.0-4.8); Neutrophils % (M) 1 %; Nucleated Red Blood Cells 0 /100 WBC (0-0); Total Cells Counted 200
[2019-05-05] MEDS: POTASSIUM CHLORIDE ER 20 MEQ TAB.ER PO SCH ×2 (06:04→07:07)
[2019-05-05 07:07] LABS: Glucose,Whole Blood 195 mg/dL (75-99)
[2019-05-05] MEDS: INSULIN ASPART (NovoLOG) 100 UNIT/ML VIAL SQ SCH ×4 (07:07→22:55)
[2019-05-05] MEDS: PANTOPRAZOLE 40 MG TABLET PO SCH ×2 (07:07→17:00)
[2019-05-05] MEDS: IPRATROPIUM-ALBUTEROL 3 ML NEB INHALATION SCH ×4 (07:53→19:32)
[2019-05-05] MEDS: LACTATED RINGERS 1,000 ML IV SCH ×2 (08:41→20:32)
[2019-05-05] MEDS: methylPREDNISolone SOD SUCCI 40 MG/ML 1 ML VIAL IV SCH ×2 (08:56→17:00)
[2019-05-05] MEDS: METOPROLOL TARTRATE 25 MG TAB PO SCH ×2 (08:57→20:30)
[2019-05-05] MEDS: ANIDULAFUNGIN 100 MG in SODIUM CHLORIDE 0.9% 100 ML IVPB SCH (08:57)
[2019-05-05] MEDS: ANASTROZOLE 1 MG TAB PO SCH (08:57)
[2019-05-05] MEDS: VANCOMYCIN 1,750 MG in SODIUM CHLORIDE 0.9% 500 ML 500 ML IVPB SCH ×2 (08:57→20:28)
[2019-05-05] MEDS: DOCUSATE 100 MG CAP PO SCH (08:57)
[2019-05-05] MEDS: amLODIPine 5 MG TAB PO SCH ×2 (08:57→20:30)
[2019-05-05] MEDS: FERROUS SULFATE 325 MG TAB PO SCH (08:57)
[2019-05-05] MEDS: FUROSEMIDE 10 MG/ML 4 ML VIAL IV SCH (08:58)
[2019-05-05] MEDS: FILGRASTIM-SNDZ 480 MCG/0.8 ML SYRINGE SQ SCH (08:58)
--- NOTE | 2019-05-05 10:02 | P.PN ---
Subjective Progress Note Date: 05/05/19 On today's evaluation of 05/05/2019 the patient is still in acute hypoxic respiratory failure. The patient is on 50% FiO2 with 55 L of oxygen flow to maintain a saturation above 90%. The patient was seen by my partner and the patient was diagnosed having an acute transfusion-related lung injury causing acute hypoxic respiratory failure. The patient is comfortable. No significant cough or sputum production. She is covered with broad-spectrum antibiotics utilizing a combination of Eraxis, vancomycin and cefepime. The patient has no positive cultures thus far. Echocardiogram was done and the patient was found to have a left vascular systolic function of 60-65% in addition to mild tricuspid regurgitation, moderate mitral regurgitation and [id number] pulmonary hypertension. The patient also has a borderline concentric left ventricle hypertrophy. The right Wendell pressures were estimated to be 45 mmHg. The patient also had a CAT scan of the chest done yesterday and the patient was found to have bilateral areas of consolidation and bilateral pleural effusion left greater than right. From the hematologic standpoint, the patient's white cell count remains elevated at 35,000 mainly lymphocytes and the patient has a hemoglobin of 7.5 with a platelet count of 9. She is receiving another platelet transfusion. The patient is seen by Dr. Oliva and a biopsy of the bone marrow was noted in the bone marrow showed hyper cellular marrow with near complete replacement by CLL accounting for 99% of the marrow elements with marketed decrease in erythropoiesis and platelet production. The patient is not having any active bleeding. She has had some minor hematomas in her fingertips at the site of insulin check as the patient is receiving IV Solu-Medrol for now for any potential immunologic mediated drop in the latest counts and a blood counts. She remains on Arimidex regarding her breast cancer. She remains on Lasix 40 mg IV daily day. No altered mentation. No nausea. No vomiting. No chest pain. No other complaints otherwise for now. She is known to me from her previous history of sleep apnea. Objective - Vital Signs Vital signs: Vital Signs Temp 98.7 F 05/05/19 08:04 Pulse 81 05/05/19 09:00 Resp 22 05/05/19 09:00 BP 136/72 05/05/19 09:00 Pulse Ox 91 L 05/05/19 09:00 Intake & Output 05/04/19 05/05/19 05/05/19 18:59 06:59 18:59 Intake Total 2379 840 60 Output Total 4530 1130 250 Balance -2151 -290 -190 Weight 108 kg Intake: IV 751 840 60 .9 150 240 60 Cefepime 2 gm In Sodium 100 100 Chloride 0.9% 100 ml @ 200 mls/hr IVPB Q8H [facility] Rx#:[id number] Vancomycin 1,750 mg In 501 500 Sodium Chloride 0.9% 500 ml 500 ml @ 167 mls/hr IVPB Q16H [facility] Rx#: [id number] Oral 900 Blood Product 728 0 Platelet Pheresis Acda1 0 Unit [id number] Platelet Pheresis Acda1 328 Unit [id number] Output: Urine 4530 1130 250 Uretheral (Espinoza) 700 Other: Voiding Method Indwelling Catheter Indwelling Catheter # Voids 1 - Exam Gen. appearance the patient is calm and comfortable no acute distress and she is using a airvo device Head exam was generally normal. There was no scleral icterus or corneal arcus. Mucous membranes were moist. Neck was supple and without jugular venous distension, thyromegaly, or carotid bruits. Carotids were easily palpable bilaterally. There was no adenopathy. Lungs sounds are diminished bilaterally along with crackles in the mid and lower lung finn heard throughout the lung finn bilaterally. Cardiac exam revealed the PMI to be normally situated and sized. The rhythm was regular and no extrasystoles were noted during several minutes of auscultation. The first and second heart sounds were normal and physiologic splitting of the second heart sound was noted. There were no murmurs, rubs, clicks, or gallops. Abdominal exam revealed normal bowel sounds. The abdomen was soft, non-tender, and without masses, organomegaly, or appreciable enlargement of the abdominal aorta. Examination of the extremities revealed easily palpable radial, femoral and pedal pulses. There was no cyanosis, clubbing or edema. The patient has developed some minor hematomas at the fingertips specially in the right index finger where most of the blood sugar monitoring his been done via needle sticks. Examination of the skin revealed no evidence of significant rashes, suspicious appearing nevi or other concerning lesions. Neurologically the patient is awake and alert and there is no focal neurological deficit. - Labs CBC & Chem 7: 05/05/19 04:28 05/05/19 04:28 Labs: Abnormal Lab Results - Last 24 Hours (Table) 05/04/19 05/04/19 05/04/19 Range/Units 12:35 16:30 20:23 WBC (3.8-10.6) k/uL RBC (3.80-5.40) m/uL Hgb (11.4-16.0) gm/dL Hct (34.0-46.0) % RDW (11.5-15.5) % Plt Count (150-450) k/uL Neutrophils # (Manual) (1.3-7.7) k/uL Lymphocytes # (Manual) (1.0-4.8) k/uL Potassium (3.5-5.1) mmol/L BUN (7-17) mg/dL Glucose (74-99) mg/dL POC Glucose (mg/dL) 201 H 179 H 223 H (75-99) mg/dL Calcium (8.4-10.2) mg/dL Ionized Calcium Carlos (4.5-5.3) mg/dL Total Bilirubin (0.2-1.3) mg/dL AST (14-36) U/L Total Protein (6.3-8.2) g/dL Albumin (3.5-5.0) g/dL 05/05/19 05/05/19 05/05/19 Range/Units 04:28 04:28 06:56 WBC 35.4 H (3.8-10.6) k/uL RBC 2.42 L (3.80-5.40) m/uL Hgb 7.5 L (11.4-16.0) gm/dL Hct 23.5 L (34.0-46.0) % RDW 17.4 H (11.5-15.5) % Plt Count 9 L* (150-450) k/uL Neutrophils # (Manual) 0.35 L* (1.3-7.7) k/uL Lymphocytes # (Manual) 35.05 H (1.0-4.8) k/uL Potassium 3.4 L (3.5-5.1) mmol/L BUN 28 H (7-17) mg/dL Glucose 179 H (74-99) mg/dL POC Glucose (mg/dL) 195 H (75-99) mg/dL Calcium 6.4 L* (8.4-10.2) mg/dL Ionized Calcium Carlos 3.9 L (4.5-5.3) mg/dL Total Bilirubin 2.0 H (0.2-1.3) mg/dL AST 11 L (14-36) U/L Total Protein 5.2 L (6.3-8.2) g/dL Albumin 2.9 L (3.5-5.0) g/dL Microbiology - Last 24 Hours (Table) 05/02/19 22:44 Blood Culture - Preliminary Blood No Growth after 48 hours 05/02/19 12:45 Blood Culture - Preliminary Blood No Growth after 48 hours 05/01/19 10:02 Blood Culture - Preliminary Blood No Growth after 72 hours Assessment and Plan Plan: 1 acute hypoxic respiratory failure secondary to a transfusion related acute lung injury. CHF or any other infectious possibilities are felt to be less likely. Cultures of been all negative and the patient continues to be on broad- spectrum antibiotics. The patient continues to be gently diuresed. The patient remains on high flow oxygen with a 50% FiO2 and the flow of 55 L. CAT scan of the chest was noted. Echo was noted 2 CLL 3 pancytopenia with 99% replacement of the marrow elements with CLL 4 history of right oxygen treatment approximately 6 months ago regarding CLL and subsequent treatment with Gleevec 5 diastolic heart failure with an ejection fraction of 60-65% and moderate mitral regurgitation 6 breast cancer postlumpectomy followed by chemoradiation therapy and currently on Arimidex 7 obstructive sleep apnea maintained on CPAP therapy on outpatient basis 8 hypertension Plan Continue same treatment. Continue antibiotics. Continue steroids. Wean off FiO2 as tolerated to maintain a saturation above 90%. Continue gentle diuresis. Repeat chest x-ray in a.m. We'll discuss the case with hematology oncology ra l make further recommendations regarding her extensive thrombocytopenia and anemia. The patient is receiving a platelet transfusion for now. We'll continue to follow.
--- NOTE | 2019-05-05 10:22 | PN ---
PROGRESS NOTE Angeli is a 73-year-old lady that is in the intensive care unit with thrombocytopenia, anemia, and congestive heart failure. We are following her for the diastolic congestive heart failure. She has short self-limited runs of irregular heart rhythm. She is not a candidate for anticoagulation. She has thrombocytopenia, which is currently being taken care of. PHYSICAL EXAMINATION: On exam, patient appears comfortable at rest. Vital signs are stable. Chest exam reveals good air entry. Heart exam reveals first and second heart sounds. No gallop. No murmur. Examination of the extremities did not reveal any edema. Peripheral pulses are felt. LABS: Labs showed that her platelet count is 9, hemoglobin is 7.5. Potassium is 3.4. ASSESSMENT: 1. Diastolic heart failure. 2. Thrombocytopenia. 3. Cardiac arrhythmia. PLAN: I will continue the patient on the IV Lasix that she is currently on. MMYANG / ASHISH: [id number] /
[2019-05-05 12:01] LABS: Glucose,Whole Blood 189 mg/dL (75-99)
--- NOTE | 2019-05-05 14:40 | P.PN ---
Subjective Progress Note Date: 05/05/19 Principal diagnosis: CLL with pancytopenia, breast cancer Hx, GIST Hx Today in f/u pt seen in ICU, she is up in chair, feels her breathing is better then last week, still requiring high flow O2, she is not as winded when speaking, she has no c/o other then the hematomas on her fingers from CBG testing, denies any other bleeding. Objective - Vital Signs Vital signs: Vital Signs Temp 98.5 F 05/05/19 12:01 Pulse 75 05/05/19 14:00 Resp 19 05/05/19 14:00 BP 131/65 05/05/19 14:00 Pulse Ox 93 L 05/05/19 14:00 Intake & Output 05/04/19 05/05/19 05/05/19 18:59 06:59 18:59 Intake Total 2379 840 1033 Output Total 4530 1130 1974 Balance -4484 -290 -942 Weight 108 kg Intake: IV 751 840 740 .9 150 240 140 Anidulafungin 100 mg In 100 Sodium Chloride 0.9% 100 ml @ 84 mls/hr IVPB DAILY [facility] Rx#:[id number] Cefepime 2 gm In Sodium 100 100 Chloride 0.9% 100 ml @ 200 mls/hr IVPB Q8H [facility] Rx#:[id number] Vancomycin 1,750 mg In 501 500 500 Sodium Chloride 0.9% 500 ml 500 ml @ 167 mls/hr IVPB Q16H [facility] Rx#: [id number] Oral 900 Blood Product 728 293 Platelet Pheresis Acda1 293 Unit [id number] Platelet Pheresis Acda1 328 Unit [id number] Output: Urine 4530 1130 1974 Uretheral (Espinoza) 700 Other: Voiding Method Indwelling Catheter Indwelling Catheter Indwelling Catheter # Voids 1 - Constitutional General appearance: Present: cooperative, no acute distress, obese - EENT Eyes: Present: anicteric sclerae, EOMI - Respiratory Respiratory: bilateral: diminished - Cardiovascular Rhythm: regular Heart sounds: normal: S1, S2 Abnormal Heart Sounds: Absent: systolic murmur, diastolic murmur, rub, S3 Gallop, S4 Gallop, click, other - Peripheral edema leg Peripheral Edema: bilateral: None - Gastrointestinal General gastrointestinal: Present: normal bowel sounds, soft - Neurologic Neurologic: Present: CNII-XII intact - Musculoskeletal Musculoskeletal: Present: generalized weakness - Psychiatric Psychiatric: Present: A&O x's 3, appropriate affect, intact judgment & insight - Labs CBC & Chem 7: 05/05/19 04:28 05/05/19 04:28 Labs: Abnormal Lab Results - Last 24 Hours (Table) 05/04/19 05/04/19 05/05/19 Range/Units 16:30 20:23 04:28 WBC (3.8-10.6) k/uL RBC (3.80-5.40) m/uL Hgb (11.4-16.0) gm/dL Hct (34.0-46.0) % RDW (11.5-15.5) % Plt Count (150-450) k/uL Neutrophils # (Manual) (1.3-7.7) k/uL Lymphocytes # (Manual) (1.0-4.8) k/uL Potassium 3.4 L (3.5-5.1) mmol/L BUN 28 H (7-17) mg/dL Glucose 179 H (74-99) mg/dL POC Glucose (mg/dL) 179 H 223 H (75-99) mg/dL Calcium 6.4 L* (8.4-10.2) mg/dL Ionized Calcium Carlos 3.9 L (4.5-5.3) mg/dL Total Bilirubin 2.0 H (0.2-1.3) mg/dL AST 11 L (14-36) U/L Total Protein 5.2 L (6.3-8.2) g/dL Albumin 2.9 L (3.5-5.0) g/dL 05/05/19 05/05/19 05/05/19 Range/Units 04:28 06:56 11:49 WBC 35.4 H (3.8-10.6) k/uL RBC 2.42 L (3.80-5.40) m/uL Hgb 7.5 L (11.4-16.0) gm/dL Hct 23.5 L (34.0-46.0) % RDW 17.4 H (11.5-15.5) % Plt Count 9 L* (150-450) k/uL Neutrophils # (Manual) 0.35 L* (1.3-7.7) k/uL Lymphocytes # (Manual) 35.05 H (1.0-4.8) k/uL Potassium (3.5-5.1) mmol/L BUN (7-17) mg/dL Glucose (74-99) mg/dL POC Glucose (mg/dL) 195 H 189 H (75-99) mg/dL Calcium (8.4-10.2) mg/dL Ionized Calcium Carlos (4.5-5.3) mg/dL Total Bilirubin (0.2-1.3) mg/dL AST (14-36) U/L Total Protein (6.3-8.2) g/dL Albumin (3.5-5.0) g/dL Microbiology - Last 24 Hours (Table) 05/01/19 10:02 Blood Culture - Preliminary Blood No Growth after 96 hours 05/02/19 22:44 Blood Culture - Preliminary Blood No Growth after 48 hours 05/02/19 12:45 Blood Culture - Preliminary Blood No Growth after 48 hours Assessment and Plan (1) Febrile neutropenia Narrative/Plan: No fevers documented today. Cont VS monitoring Neutrophiles remain <500 despite GCSF, felt to be r/t marrow involvement with lymphocytes. Cultures neg so far, abx continue, ID following closely Current Visit: Yes Status: Acute Priority: High Code(s): D70.9 - NEUTROPENIA, UNSPECIFIED; R50.81 - FEVER PRESENTING WITH CONDITIONS CLASSIFIED ELSEWHERE SNOMED Code(s): 117000435 (2) CLL (chronic lymphocytic leukemia) Narrative/Plan: Patient is status post bone marrow biopsy and aspirate, preliminary results reveal marrow involvement with CLL. Due to patient's instability, plan is to give first cycle of treatment inpatient. NCCN guidelines were faxed to Pharmacy with recommended drugs and dosing. Will consider treatment in the next few days based on pt recovery/stabilization. Current Visit: Yes Status: Acute Priority: High Code(s): C91.90 - LYMPHOID LEUKEMIA, UNSPECIFIED NOT HAVING ACHIEVED REMISSION SNOMED Code(s): 42343080 (3) Pancytopenia Narrative/Plan: Patient given 1 unit of single donor platelets for a platelet count of 9000 today. Transfuse for platelet <10,000 or if symptomatic. NO ASA, NSAIDs, anticoagulation, ibuprofen or motrin. Hemoglobin 7.5 today, no transfusion today WBS/ANC/ALC, stable Current Visit: Yes Status: Acute Priority: High Code(s): D61.818 - OTHER PANCYTOPENIA SNOMED Code(s): 677910978 (4) Breast cancer Narrative/Plan: Cont arimidex Current Visit: No Status: Chronic Priority: Low Code(s): C50.919 - MALIGNANT NEOPLASM OF UNSP SITE OF UNSPECIFIED FEMALE BREAST SNOMED Code(s): 671650884 (5) Gastrointestinal stromal neoplasm Narrative/Plan: Gleevec held for this condition, no treatment at this time Current Visit: No Status: Chronic Priority: Low Code(s): C49.A0 - GASTROINTESTINAL STROMAL TUMOR, UNSPECIFIED SITE SNOMED Code(s): 863375498
--- NOTE | 2019-05-05 14:55 | PN ---
PROGRESS NOTE DATE OF SERVICE: 05/05/2019 REASON FOR FOLLOWUP: Pneumonia. INTERVAL HISTORY: The patient is currently afebrile. The patient has been breathing more comfortably. The patient denies having any chest pain. She did have some cough but decreased in intensity. No nausea, no vomiting. No abdominal pain, no diarrhea. PHYSICAL EXAMINATION: Blood pressure 132/73 with a pulse of 94, temperature of 98, she is 95% on high-flow oxygen. General description is an elderly female, lying in bed in no distress. RESPIRATORY SYSTEM: Unlabored breathing with decreased breath sounds at the base, with no wheeze. HEART: S1, S2. Regular rate and rhythm. ABDOMEN: Soft, no tenderness. LABS: Hemoglobin is 10.5, white count 5.4 with a BUN of 28, creatinine 0.5. DIAGNOSTIC IMPRESSION AND PLAN: Patient with episodes of fever and respiratory distress, likely multifactorial with a component of pneumonia, possible nosocomial. Patient's currently treated with cefepime and vancomycin to continue. Will monitor clinical course and kidney function closely. Cultures have been negative so far. Continue supportive care. MMODL / IJN: [id number] /
--- NOTE | 2019-05-05 16:46 | XR ---
EXAMINATION TYPE: XR chest 1V portable DATE OF EXAM: 05/05/2019 COMPARISON: Prior chest x-ray 05/04/2019 HISTORY: Shortness of breath TECHNIQUE: Single frontal view of the chest is obtained. FINDINGS: Bilateral airspace disease is present. Central venous catheter is stable. No pneumothorax or evident effusion. Heart size is stable. IMPRESSION: There may be worsening pulmonary edema or pneumonia, there are associated bilateral pleu ral effusions
[2019-05-05 17:04] LABS: Glucose,Whole Blood 161 mg/dL (75-99)
[2019-05-05] MEDS: ATORVASTATIN 40 MG TAB PO SCH (20:30)
--- NOTE | 2019-05-05 21:11 | P.PN ---
Subjective Progress Note Date: 05/05/19 Principal diagnosis: Acute hypoxic respiratory failure, Pancytopenia Ms. Ascencio is a 73-year-old female with a past medical history of breast cancer status post lumpectomy and chemotherapy and radiation therapy admitted to the hospital for thrombocytopenia. 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 Patient underwent bone marrow biopsy by Dr. Oliva on the . After that patient received 2 units of PRBCs, 2 units of platelets after which she became febrile and increasingly hypoxemic Sunday she had to be transferred to the ICU couple of days back. Patient had chest x-ray showing small left pleural effusion and also elevated BNP. Patient has history of heart failure, diastolic along with moderate mitral regurgitation and mild aortic stenosis. She has been started on diuretics, empiric antibiotics after obtaining blood cultures. Patient has been on BiPAP and has been changed to 12 L of high flow nasal cannula couple of days back. On 05/05/19 - She still has difficulty in breathing, she has a note stating that even talking is making her short of breath.On having a conversation with me ,she became hypoxia to as low as 82 %. She had a repeat CAT scan of the chest done yesterday showing bilateral pleural effusion more on the left compared to right. Bone marrow biopsy came back as hypercellular with near complete replacement by CLL accounting for 99% of the marrow elements with marketed decrease in erythropoiesis and platelet production. She has reddish discoloration of her left index finger , where she has been pricked for blood glucose checks. Other finger tips are ok. She reports no bleeding or bruising. On Review of systems: Constitutional : no fevers, chills or rigors Cardiovascular: no chest pain or palpitations. Respiratory : difficulty is breathing continues. No new changes. GI : No abdominal pain, blood in sthe stool. Last BM is today Genitourinary : No dysuria or heamaturia. Active Medications Albuterol/Ipratropium (Duoneb 0.5 Mg-3 Mg/3 Ml Soln) 3 ml INHALATION RT-QID VALENTE Last Admin: 05/05/19 19:32 Dose: 3 ml Documented by: Albuterol/Ipratropium (Duoneb 0.5 Mg-3 Mg/3 Ml Soln) 3 ml INHALATION RT-Q2H PRN PRN Reason: Shortness Of Breath Or Wheezing Last Admin: 05/05/19 03:45 Dose: 3 ml Documented by: Amlodipine Besylate (Norvasc) 5 mg PO BID [facility] Last Admin: 05/05/19 20:30 Dose: 5 mg Documented by: Anastrozole (Arimidex) 1 mg PO DAILY [facility] Last Admin: 05/05/19 08:57 Dose: 1 mg Documented by: Atorvastatin Calcium (Lipitor) 40 mg PO HS [facility] Last Admin: 05/05/19 20:30 Dose: 40 mg Documented by: Docusate Sodium (Colace) 100 mg PO DAILY [facility] Last Admin: 05/05/19 08:57 Dose: 100 mg Documented by: Ferrous Sulfate (Feosol) 325 mg PO DAILY [facility] Last Admin: 05/05/19 08:57 Dose: 325 mg Documented by: Filgrastim (Zarxio) 480 mcg SQ DAILY [facility] Last Admin: 05/05/19 08:58 Dose: 480 mcg Documented by: Furosemide (Lasix) 40 mg IV DAILY [facility] Last Admin: 05/05/19 08:58 Dose: 40 mg Documented by: Lactated Ringer's (Lactated Ringers) 1,000 mls @ 20 mls/hr IV .Q24H [facility] Last Admin: 05/05/19 20:32 Dose: Not Given Documented by: Anidulafungin 100 mg/ Sodium (Chloride) 100 mls @ 84 mls/hr IVPB DAILY [facility] Last Admin: 05/05/19 08:57 Dose: 84 mls/hr Documented by: Cefepime HCl 2 gm/ Sodium (Chloride) 100 mls @ 200 mls/hr IVPB Q8H [facility] Last Admin: 05/05/19 20:24 Dose: 200 mls/hr Documented by: Vancomycin HCl 1,750 mg/ (Sodium Chloride) 500 mls @ 167 mls/hr IVPB Q12H [facility] Last Admin: 05/05/19 20:28 Dose: 167 mls/hr Documented by: Insulin Aspart (Novolog) 0 unit SQ ACHS [facility]; Protocol Last Admin: 05/05/19 17:00 Dose: 3 unit Documented by: Lidocaine HCl (.Xylocaine 1% Inj (10mg/Ml) For Iv Start) 0.1 ml INTRADERMA PER PROTOCOL PRN PRN Reason: IV Start Methylprednisolone Sodium Succinate (Solu-Medrol) 40 mg IV Q8HR [facility] Last Admin: 05/05/19 17:00 Dose: 40 mg Documented by: Metoprolol Tartrate (Lopressor) 25 mg PO BID [facility] Last Admin: 05/05/19 20:30 Dose: 25 mg Documented by: Miscellaneous Information (Potassium Per Protocol) 1 each MISCELLANE DAILY PRN; Protocol PRN Reason: Per Protocol Miscellaneous Information (Rx Info: Iv Contrast Was Given) 1 each MISCELLANE DAILY PRN PRN Reason: Per Protocol Stop: 05/06/19 07:34 Miscellaneous Information (Vancomycin Trough Due) 1 each MISCELLANE ONCE ONE Stop: 05/06/19 07:01 Naloxone HCl (Narcan) 0.2 mg IV Q2M PRN PRN Reason: Opioid Reversal Nitroglycerin (Nitrostat) 0.4 mg SUBLINGUAL ONCE PRN PRN Reason: Chest Pain Last Admin: 05/01/19 08:54 Dose: 0.4 mg Documented by: Ondansetron HCl (Zofran) 4 mg IVP Q6HR PRN PRN Reason: Nausea And Vomiting Last Admin: 05/01/19 23:06 Dose: 4 mg Documented by: Pantoprazole Sodium (Protonix) 40 mg PO AC-BID [facility] Last Admin: 05/05/19 17:00 Dose: 40 mg Documented by: Objective - Vital Signs Vital signs: Vital Signs Temp 98.5 F 05/05/19 12:01 Pulse 74 05/05/19 15:00 Resp 18 05/05/19 15:00 BP 131/65 05/05/19 15:00 Pulse Ox 92 L 05/05/19 15:00 Intake & Output 05/04/19 05/05/19 05/05/19 18:59 06:59 18:59 Intake Total 2379 840 1053 Output Total 0310 1130 2050 Balance -2151 -290 -997 Weight 108 kg Intake: IV 751 840 760 .9 150 240 160 Anidulafungin 100 mg In 100 Sodium Chloride 0.9% 100 ml @ 84 mls/hr IVPB DAILY [facility] Rx#:[id number] Cefepime 2 gm In Sodium 100 100 Chloride 0.9% 100 ml @ 200 mls/hr IVPB Q8H [facility] Rx#:[id number] Vancomycin 1,750 mg In 501 500 500 Sodium Chloride 0.9% 500 ml 500 ml @ 167 mls/hr IVPB Q16H [facility] Rx#: [id number] Oral 900 Blood Product 728 293 Platelet Pheresis Acda1 293 Unit [id number] Platelet Pheresis Acda1 328 Unit [id number] Output: Urine 4530 1130 2050 Uretheral (Espinoza) 700 Other: Voiding Method Indwelling Catheter Indwelling Catheter Indwelling Catheter # Voids 1 - Exam GEN. APPEARANCE: alert, in no apparent distress HEAD EXAM: atraumatic, normocephalic, normal inspection EYE EXAM: Mild pallor. No icterus. ENT EXAM: normal exam, mucous membranes moist RESPIRATORY EXAM: Diminished breath sounds in all lung finn. crackles at the lower lung bases both sides appreciated. No wheezes. CARDIOVASCULAR EXAM: S1-S2 heard. GI/ABDOMINAL EXAM: Abdomen is soft nontender. Bowel sounds positive. EXTREMITIES EXAM: No peripheral edema. NEUROLOGICAL EXAM: alert, oriented X3, no focal neurological deficits SKIN EXAM: Bruise on the left index finger stable. Few bruises that are developing in her other fingertips noticed- no change since yesterday. - Labs CBC & Chem 7: 05/05/19 04:28 05/05/19 04:28 Labs: Abnormal Lab Results - Last 24 Hours (Table) 05/04/19 05/04/19 05/05/19 Range/Units 16:30 20:23 04:28 WBC (3.8-10.6) k/uL RBC (3.80-5.40) m/uL Hgb (11.4-16.0) gm/dL Hct (34.0-46.0) % RDW (11.5-15.5) % Plt Count (150-450) k/uL Neutrophils # (Manual) (1.3-7.7) k/uL Lymphocytes # (Manual) (1.0-4.8) k/uL Potassium 3.4 L (3.5-5.1) mmol/L BUN 28 H (7-17) mg/dL Glucose 179 H (74-99) mg/dL POC Glucose (mg/dL) 179 H 223 H (75-99) mg/dL Calcium 6.4 L* (8.4-10.2) mg/dL Ionized Calcium Carlos 3.9 L (4.5-5.3) mg/dL Total Bilirubin 2.0 H (0.2-1.3) mg/dL AST 11 L (14-36) U/L Total Protein 5.2 L (6.3-8.2) g/dL Albumin 2.9 L (3.5-5.0) g/dL 05/05/19 05/05/19 05/05/19 Range/Units 04:28 06:56 11:49 WBC 35.4 H (3.8-10.6) k/uL RBC 2.42 L (3.80-5.40) m/uL Hgb 7.5 L (11.4-16.0) gm/dL Hct 23.5 L (34.0-46.0) % RDW 17.4 H (11.5-15.5) % Plt Count 9 L* (150-450) k/uL Neutrophils # (Manual) 0.35 L* (1.3-7.7) k/uL Lymphocytes # (Manual) 35.05 H (1.0-4.8) k/uL Potassium (3.5-5.1) mmol/L BUN (7-17) mg/dL Glucose (74-99) mg/dL POC Glucose (mg/dL) 195 H 189 H (75-99) mg/dL Calcium (8.4-10.2) mg/dL Ionized Calcium Carlos (4.5-5.3) mg/dL Total Bilirubin (0.2-1.3) mg/dL AST (14-36) U/L Total Protein (6.3-8.2) g/dL Albumin (3.5-5.0) g/dL Microbiology - Last 24 Hours (Table) 05/02/19 12:45 Blood Culture - Preliminary Blood No Growth after 72 hours 05/01/19 10:02 Blood Culture - Preliminary Blood No Growth after 96 hours 05/02/19 22:44 Blood Culture - Preliminary Blood No Growth after 48 hours Assessment and Plan Assessment: ASSESSMENT Acute hypoxic respiratory failure - multifactorial diastolic CHF, pneumonia, transfusion related acute lung injury Pancytopenia Possible sepsis History of CLL Diastolic congestive heart failure History of right breast cancer status post lumpectomy, chemotherapy and radiation therapy Hypertension Hyperlipidemia Former smoker Obesity hypoventilation syndrome Morbid obesity with BMI of 45 Mild mitral regurgitation and aortic stenosis PLAN: Patient's respiratory status is still the same. She is on high flow nasal canula. Continue with diuretic therapy and empiric antibiotics, antifungals, until the blood cultures come back. She is receiving platelets are she dropped her paltelets to too low. Pulmonary, oncology, infectious disease consultants on board and following the patient closely. Overall prognosis remains poor. Further recommendations to follow depending on the progress of the patient.
[2019-05-06] MEDS: methylPREDNISolone SOD SUCCI 40 MG/ML 1 ML VIAL IV SCH ×3 (00:18→17:06)
[2019-05-06] MEDS: IPRATROPIUM-ALBUTEROL 3 ML NEB INHALATION PRN (03:12)
[2019-05-06] MEDS: CEFEPIME 2 GM in SODIUM CHLORIDE 0.9% 100 ML IVPB SCH ×3 (04:31→20:38)
[2019-05-06 04:52] LABS: Anisocytosis Slight; HCT 23.1 % (34.0-46.0); HGB 7.3 gm/dL (11.4-16.0); MCH 31.6 pg (25.0-35.0); MCHC 31.8 g/dL (31.0-37.0); MCV 99.4 fL (80.0-100.0); Macrocytosis Slight; Mean Platelet Volume 9.6; RBC 2.32 m/uL (3.80-5.40); RDW 17.5 % (11.5-15.5); WBC 42.7 k/uL (3.8-10.6)
[2019-05-06 04:57] LABS: ALT 22 U/L (9-52); AST 12 U/L (14-36); African American GFR (CKD) >90 (>60 ml/min/1.73 sqM); Alkaline Phosphatase 44 U/L (38-126); Anion Gap 8 mmol/L; Blood Urea Nitrogen 23 mg/dL (7-17); Carbon Dioxide 27 mmol/L (22-30); Chloride 105 mmol/L (98-107); Glucose 168 mg/dL (74-99); Potassium 3.6 mmol/L (3.5-5.1); Sodium 140 mmol/L (137-145); Total Bilirubin 2.3 mg/dL (0.2-1.3); Total Protein 5.3 g/dL (6.3-8.2)
[2019-05-06 05:03] LABS: Calcium 6.5 mg/dL (8.4-10.2)
[2019-05-06] MEDS ORDERED: Potassium Replacement Protocol 1 EACH MISC MISCELLANE PRN (05:51)
[2019-05-06] MEDS ORDERED: POTASSIUM CHLORIDE ER 20 MEQ TAB.ER PO SCH (06:00)
[2019-05-06 06:04] LABS: Nucleated Red Blood Cells 0 /100 WBC (0-0); Total Cells Counted 100
[2019-05-06 06:09] LABS: Platelet Count 7 k/uL (150-450)
[2019-05-06 06:51] LABS: Glucose,Whole Blood 182 mg/dL (75-99)
[2019-05-06] MEDS ORDERED: VANCOMYCIN TROUGH DUE 1 EACH MISC MISCELLANE ONE ×2 (07:00→19:00)
[2019-05-06] MEDS: PANTOPRAZOLE 40 MG TABLET PO SCH ×2 (07:25→17:06)
[2019-05-06] MEDS: INSULIN ASPART (NovoLOG) 100 UNIT/ML VIAL SQ SCH ×4 (07:25→22:14)
[2019-05-06] MEDS: VANCOMYCIN 1,750 MG in SODIUM CHLORIDE 0.9% 500 ML 500 ML IVPB SCH ×2 (07:51→14:32)
[2019-05-06] MEDS: DOCUSATE 100 MG CAP PO SCH (08:16)
[2019-05-06] MEDS: METOPROLOL TARTRATE 25 MG TAB PO SCH ×2 (08:16→20:47)
[2019-05-06] MEDS: FERROUS SULFATE 325 MG TAB PO SCH (08:16)
[2019-05-06] MEDS: ANASTROZOLE 1 MG TAB PO SCH (08:17)
[2019-05-06] MEDS: ANIDULAFUNGIN 100 MG in SODIUM CHLORIDE 0.9% 100 ML IVPB SCH (08:17)
[2019-05-06] MEDS: amLODIPine 5 MG TAB PO SCH ×2 (08:17→20:47)
[2019-05-06] MEDS: FILGRASTIM-SNDZ 480 MCG/0.8 ML SYRINGE SQ SCH (08:17)
[2019-05-06] MEDS: FUROSEMIDE 10 MG/ML 4 ML VIAL IV SCH (08:17)
--- NOTE | 2019-05-06 08:17 | XR ---
EXAMINATION TYPE: XR chest 1V portable DATE OF EXAM: 05/06/2019 COMPARISON: Prior chest x-ray 05/05/2019 HISTORY: Shortness of breath TECHNIQUE: Single frontal view of the chest is obtained. FINDINGS: Pleural parenchymal changes are similar. Port-A-Cath is stable. No pneumothorax. Patient i s rotated. Heart size is likely stable. IMPRESSION: Correlate for bilateral pneumonia. There may be associated effusion.
--- NOTE | 2019-05-06 08:33 | P.PN ---
Subjective Progress Note Date: 05/06/19 On 05/06/2019 I'm seeing this patient for a follow-up. Unfortunately her condition essentially the same. In terms of her breathing, the patient remains on a 50% FiO2 with Teflaro 55 L per minute to maintain a saturation above 90%. No worsening or improvement in her pulmonary status. A follow-up chest x-ray still pending from today. The working diagnosis is acute lung injury probably related to blood products. This may be an ARDS-type of picture. Pneumonia is also possible as the patient is quite immunocompromised and the patient is still covered with a broad-spectrum antibiotic coverage utilizing a combination of cefepime, vancomycin and Eraxis. Chest x-ray findings are essentially the same. The echocardiogram had shown a preserved LV function. The patient on today's evaluation sitting up on a chair. She is tolerating her diet. White cell count is at 42.7 and the platelet count is at 7 and the rise been no significant improvement in the platelet count despite the previous transfusion. The patient remains on IV Solu Medrol. IVIG has been ordered the regarding the possibility of immune mediated drop in the platelet count and hemoglobin. I had a discussion also with oncology. There is a constellation to put the patient back on Cytoxan regarding her CLL and diffuse bone marrow infiltration with CLL. Cultures of been negative. The patient is hemodynamically stable. The patient is afebrile. She has no chest pain. No altered mentation. No nausea. No vomiting. No other significant events overnight. Objective - Vital Signs Vital signs: Vital Signs Temp 98.1 F 05/06/19 08:01 Pulse 72 05/06/19 08:01 Resp 18 05/06/19 08:01 BP 134/79 05/06/19 08:01 Pulse Ox 97 05/06/19 08:01 Intake & Output 05/05/19 05/06/19 05/06/19 18:59 06:59 18:59 Intake Total 1133 220 40 Output Total 2450 1295 275 Balance -0247 -5275 -351 Weight 105.4 kg Intake: IV 840 220 40 .9 240 220 40 Anidulafungin 100 mg In 100 Sodium Chloride 0.9% 100 ml @ 84 mls/hr IVPB DAILY [facility] Rx#:[id number] Vancomycin 1,750 mg In 500 Sodium Chloride 0.9% 500 ml 500 ml @ 167 mls/hr IVPB Q16H [facility] Rx#: [id number] Blood Product 293 0 Platelet Irr Pheresis 0 Acda1 Unit [id number] Platelet Pheresis Acda1 293 Unit [id number] Output: Urine 2450 1295 275 Other: Voiding Method Indwelling Catheter Indwelling Catheter - Exam Gen. appearance the patient is calm and comfortable no acute distress and she is using a airvo device, with a FiO2 of 50% and the flow of 55 L. Head exam was generally normal. There was no scleral icterus or corneal arcus. Mucous membranes were moist. Neck was supple and without jugular venous distension, thyromegaly, or carotid bruits. Carotids were easily palpable bilaterally. There was no adenopathy. Lungs sounds are diminished bilaterally along with crackles in the mid and lower lung finn heard throughout the lung finn bilaterally. Cardiac exam revealed the PMI to be normally situated and sized. The rhythm was regular and no extrasystoles were noted during several minutes of auscultation. The first and second heart sounds were normal and physiologic splitting of the second heart sound was noted. There were no murmurs, rubs, clicks, or gallops. Abdominal exam revealed normal bowel sounds. The abdomen was soft, non-tender, and without masses, organomegaly, or appreciable enlargement of the abdominal aorta. Examination of the extremities revealed easily palpable radial, femoral and pedal pulses. There was no cyanosis, clubbing or edema. The patient has developed some minor hematomas at the fingertips specially in the right index finger where most of the blood sugar monitoring his been done via needle sticks. Examination of the skin revealed no evidence of significant rashes, suspicious appearing nevi or other concerning lesions. Neurologically the patient is awake and alert and there is no focal neurological deficit. - Labs CBC & Chem 7: 05/06/19 04:30 05/06/19 04:30 Labs: Abnormal Lab Results - Last 24 Hours (Table) 05/05/19 05/05/19 05/06/19 Range/Units 11:49 16:52 04:30 WBC (3.8-10.6) k/uL RBC (3.80-5.40) m/uL Hgb (11.4-16.0) gm/dL Hct (34.0-46.0) % RDW (11.5-15.5) % Plt Count (150-450) k/uL Lymphocytes # (Manual) (1.0-4.8) k/uL BUN 23 H (7-17) mg/dL Creatinine 0.48 L (0.52-1.04) mg/dL Glucose 168 H (74-99) mg/dL POC Glucose (mg/dL) 189 H 161 H (75-99) mg/dL Calcium 6.5 L (8.4-10.2) mg/dL Total Bilirubin 2.3 H (0.2-1.3) mg/dL AST 12 L (14-36) U/L Total Protein 5.3 L (6.3-8.2) g/dL Albumin 3.0 L (3.5-5.0) g/dL 05/06/19 05/06/19 Range/Units 04:30 06:40 WBC 42.7 H (3.8-10.6) k/uL RBC 2.32 L (3.80-5.40) m/uL Hgb 7.3 L (11.4-16.0) gm/dL Hct 23.1 L (34.0-46.0) % RDW 17.5 H (11.5-15.5) % Plt Count 7 L* (150-450) k/uL Lymphocytes # (Manual) 42.70 H (1.0-4.8) k/uL BUN (7-17) mg/dL Creatinine (0.52-1.04) mg/dL Glucose (74-99) mg/dL POC Glucose (mg/dL) 182 H (75-99) mg/dL Calcium (8.4-10.2) mg/dL Total Bilirubin (0.2-1.3) mg/dL AST (14-36) U/L Total Protein (6.3-8.2) g/dL Albumin (3.5-5.0) g/dL Microbiology - Last 24 Hours (Table) 05/02/19 22:44 Blood Culture - Preliminary Blood No Growth after 72 hours 05/02/19 12:45 Blood Culture - Preliminary Blood No Growth after 72 hours 05/01/19 10:02 Blood Culture - Preliminary Blood No Growth after 96 hours Assessment and Plan Plan: 1 acute hypoxic respiratory failure secondary to a transfusion related acute lung injury versus pneumonia. The CAT scan of the chest showed extensive consolidation more so in the upper lobes and the patient is covered with broad- spectrum antibiotics for now. Cultures of been negative. Repeat chest x-ray from today shows no interval change and the patient continues to be hypoxic on the same high flow oxygen settings.. CHF or any other infectious possibilities are felt to be less likely. Cultures of been all negative and the patient continues to be on broad-spectrum antibiotics. The patient continues to be gently diuresed. The patient remains on high flow oxygen with a 50% FiO2 and the flow of 55 L. CAT scan of the chest was noted. Echo was noted 2 CLL, with ongoing issues with pancytopenia with significant drop in the platelet count post platelet transfusion. 3 pancytopenia with 99% replacement of the marrow elements with CLL 4 history of Rituxin treatment approximately 6 months ago regarding CLL 5 diastolic heart failure with an ejection fraction of 60-65% and moderate mitral regurgitation 6 breast cancer postlumpectomy followed by chemoradiation therapy and currently on Arimidex 7 obstructive sleep apnea maintained on CPAP therapy on outpatient basis 8 hypertension Plan High flow oxygen. Keep same antibiotic coverage. Chest x-ray findings are stable. Continue IV Solu-Medrol. Continue rest of the supportive care. Check a pro-calcitonin level. Discussed the case with oncology. May consider putting this patient back on Rituxan regarding the CLL. Meanwhile, the patient will receive another platelet transfusion. We'll continue to follow. Prognosis poor based on the above-mentioned comorbidities.
[2019-05-06] MEDS: IPRATROPIUM-ALBUTEROL 3 ML NEB INHALATION SCH ×4 (08:53→19:23)
[2019-05-06 11:56] LABS: Glucose,Whole Blood 191 mg/dL (75-99)
--- NOTE | 2019-05-06 11:56 | PN ---
PROGRESS NOTE A 73-year-old lady with history of diastolic heart failure, anemia, thrombocytopenia and had short self-limited runs of atrial fibrillation. This morning she is sitting comfortably. Continues to have respiratory insufficiency and severe thrombocytopenia. PHYSICAL EXAM: She is comfortable at rest. Vital signs are stable. Chest exam reveals diminished air entry at the bases. Heart exam reveals first and second heart sounds. No gallop. Exam of extremities did not reveal any edema. Peripheral pulses are palpable. Labs showed that the hemoglobin is 7.3, platelet count is 7, potassium is 3.6, creatinine is 0.48. ASSESSMENT: 1. Chronic diastolic heart failure. 2. Paroxysmal atrial fibrillation. 3. Severe thrombocytopenia. Will continue with current medications. Prognosis guarded. MMODL / IJN: [id number] /
--- NOTE | 2019-05-06 13:28 | P.PN ---
Subjective Is a 73-year-old female with a known history of hypertension, hyperlipidemia and CLL and history of breast cancer in 2014 status post chemoradiation and surgery who is currently being treated for CLL with imatinab and is on follow-up with Dr. Oliva as an outpatient was sent to Hospital due to thrombocytopenia. Patient had blood workup done at oncologist office and was found have platelet count 1000. Patient says that she has been developing rash over her hands and feet since yesterday evening. Denied any complaints of nosebleed, hematemesis or melena. Hemoglobin is 8.7. Patient was sent to ER for platelet transfusion and close monitoring. Denied any complaints of chest pain currently. No nausea vomiting or diarrhea. No headache or dizziness or lightheadedness. Platelet count 3000, hemoglobin 8.7, WBC 52.6 05/06/2019 This is a pleasant 73 years old female who presents for pancytopenia and rash, she got multiple blood transfusion with resultant acute hypoxic failure secondary to transfusion-related acute lung injury versus pneumonia and she was sent to the ICU. Patient has been followed by critical care and pulmonary team as well as hematology/oncology team. Currently she is fully awake however she is on high flow cannula saturating 91% on FiO2 of 50%. Her token is limited by his dyspnea. Rest of vitals are stable. However she has severe thrombus ectopy 7, leukocytosis with 40 2.7K, hemoglobin 7.3. Creatinine 0.4. Patient remains in the ICU and treated with antibiotics and Solu-Medrol. Patient possibly will start Rituxan oncology team Objective - Vital Signs Vital signs: Vital Signs Temp 98.6 F 05/06/19 12:00 Pulse 78 05/06/19 13:00 Resp 22 05/06/19 13:00 BP 101/65 05/06/19 13:00 Pulse Ox 92 L 05/06/19 13:00 Intake & Output 05/05/19 05/06/19 05/06/19 18:59 06:59 18:59 Intake Total 1133 220 397 Output Total 3738 1295 9 Balance -2551 -2889 -7277 Weight 105.4 kg Intake: IV 840 220 140 .9 240 220 140 Anidulafungin 100 mg In 100 Sodium Chloride 0.9% 100 ml @ 84 mls/hr IVPB DAILY [facility] Rx#:[id number] Vancomycin 1,750 mg In 500 Sodium Chloride 0.9% 500 ml 500 ml @ 167 mls/hr IVPB Q16H [facility] Rx#: [id number] Blood Product 293 257 Platelet Irr Pheresis 257 Acda1 Unit [id number] Platelet Pheresis Acda1 293 Unit [id number] Output: Urine 2450 1295 2025 Other: Voiding Method Indwelling Catheter Indwelling Catheter Indwelling Catheter - Exam GENERAL: The patient is alert and oriented x3, not in any acute distress. Well developed, well nourished. HEENT: Pupils are round and equally reacting to light. EOMI. No scleral icterus. No conjunctival pallor. Normocephalic, atraumatic. No pharyngeal erythema. No thyromegaly. CARDIOVASCULAR: S1 and S2 present. No murmurs, rubs, or gallops. -PULMONARY: bilateral harsh breath sounds with equal air entry on both sides. Scattered wheezing ABDOMEN: Soft, nontender, nondistended, normoactive bowel sounds. No palpable organomegaly. MUSCULOSKELETAL: No joint swelling or deformity. EXTREMITIES: No cyanosis, clubbing, or pedal edema. NEUROLOGICAL: Gross neurological examination did not reveal any focal deficits. SKIN: No rash - Labs CBC & Chem 7: 05/06/19 04:30 05/06/19 04:30 Labs: Abnormal Lab Results - Last 24 Hours (Table) 05/05/19 05/06/19 05/06/19 Range/Units 16:52 04:30 04:30 WBC 42.7 H (3.8-10.6) k/uL RBC 2.32 L (3.80-5.40) m/uL Hgb 7.3 L (11.4-16.0) gm/dL Hct 23.1 L (34.0-46.0) % RDW 17.5 H (11.5-15.5) % Plt Count 7 L* (150-450) k/uL Lymphocytes # (Manual) 42.70 H (1.0-4.8) k/uL BUN 23 H (7-17) mg/dL Creatinine 0.48 L (0.52-1.04) mg/dL Glucose 168 H (74-99) mg/dL POC Glucose (mg/dL) 161 H (75-99) mg/dL Calcium 6.5 L (8.4-10.2) mg/dL Total Bilirubin 2.3 H (0.2-1.3) mg/dL AST 12 L (14-36) U/L Total Protein 5.3 L (6.3-8.2) g/dL Albumin 3.0 L (3.5-5.0) g/dL 05/06/19 05/06/19 Range/Units 06:40 11:44 WBC (3.8-10.6) k/uL RBC (3.80-5.40) m/uL Hgb (11.4-16.0) gm/dL Hct (34.0-46.0) % RDW (11.5-15.5) % Plt Count (150-450) k/uL Lymphocytes # (Manual) (1.0-4.8) k/uL BUN (7-17) mg/dL Creatinine (0.52-1.04) mg/dL Glucose (74-99) mg/dL POC Glucose (mg/dL) 182 H 191 H (75-99) mg/dL Calcium (8.4-10.2) mg/dL Total Bilirubin (0.2-1.3) mg/dL AST (14-36) U/L Total Protein (6.3-8.2) g/dL Albumin (3.5-5.0) g/dL Microbiology - Last 24 Hours (Table) 05/01/19 10:02 Blood Culture - Preliminary Blood No Growth after 120 hours 05/02/19 22:44 Blood Culture - Preliminary Blood No Growth after 72 hours 05/02/19 12:45 Blood Culture - Preliminary Blood No Growth after 72 hours Assessment and Plan Assessment: Acute hypoxic respiratory failure secondary to acute lung injury versus pneumonia. CHF is less likely Anemia and thrombocytopenia secondary to CLL Petechial rash secondary to thrombocytopenia. Results CLL History of breast cancer in 2014 status post chemo/radiation and surgery. Currently on anastrozole Hypertension Hyperlipidemia Osteoarthritis Previous history of smoking DVT prophylaxis with SCDs Plan: This is a pleasant 73 years old female who presents with anemia, thrombocytopenia and rash, eventually developed respiratory distress and acute lung injury versus pneumonia. Continue with antibiotics. Continue with steroids. Patient on Protonix. Follow-up with hematology/oncology team recommendation. Pulmonary critical team are following the patient closely. Patient will be started on Rituxan for CLL Monitor for signs of bleeding. Labs and medication were reviewed.. Continue same treatment. Continue with symptomatic treatment. Resume home medication. Monitor lytes and vitals. DVT and GI prophylaxis. Further recommendations of the clinical course of the patient DVT prophylaxis: No anticoagulation in view of severe thrombocytopenia GI Prophylaxis: Protonix Prognosis is guarded
--- NOTE | 2019-05-06 14:43 | P.PN ---
Subjective Progress Note Date: 05/06/19 Principal diagnosis: CLL with pancytopenia, breast cancer Hx, GIST Hx Today in f/u pt seen in ICU, she is up in chair, she remains on the same high flow oxygen, when speaking her O2 saturation decreases to about 87%, this is better than yesterday, patient's cough is dry, irritating, no chest pain, palpitations, fevers, nausea, appetite is fair, abdominal pain, her Espinoza cathet er is draining clear yellow urine, she did not complain of any changes in her bowel habits, she is not able to be active independently without becoming short of breath. Objective - Vital Signs Vital signs: Vital Signs Temp 98.3 F 05/06/19 09:21 Pulse 73 05/06/19 11:00 Resp 14 05/06/19 11:00 BP 144/75 05/06/19 11:00 Pulse Ox 94 L 05/06/19 11:00 Intake & Output 05/05/19 05/06/19 05/06/19 18:59 06:59 18:59 Intake Total 1133 220 337 Output Total 2450 1295 1275 Balance -1317 -1675 -938 Weight 105.4 kg Intake: IV 840 220 80 .9 240 220 80 Anidulafungin 100 mg In 100 Sodium Chloride 0.9% 100 ml @ 84 mls/hr IVPB DAILY [facility] Rx#:[id number] Vancomycin 1,750 mg In 500 Sodium Chloride 0.9% 500 ml 500 ml @ 167 mls/hr IVPB Q16H [facility] Rx#: [id number] Blood Product 293 257 Platelet Irr Pheresis 257 Acda1 Unit [id number] Platelet Pheresis Acda1 293 Unit [id number] Output: Urine 2450 1295 1275 Other: Voiding Method Indwelling Catheter Indwelling Catheter Indwelling Catheter - Constitutional General appearance: Present: cooperative, mild distress, obese - EENT Eyes: Present: anicteric sclerae, EOMI ENT: Present: hearing grossly normal, normal oropharynx - Respiratory Respiratory: bilateral: diminished - Cardiovascular Rhythm: regular Heart sounds: normal: S1, S2 Abnormal Heart Sounds: Absent: systolic murmur, diastolic murmur, rub, S3 Gallop, S4 Gallop, click, other - Peripheral edema leg Peripheral Edema: bilateral: Trace - Gastrointestinal General gastrointestinal: Present: normal bowel sounds, soft. Absent: absent bowel sounds, decreased bowel sounds, distended, hepatomegaly, hyperactive bowel sounds, organomegaly, rigid, scaphoid, splenomegaly, tenderness, umbilical hernia, ventral hernia - Integumentary Integumentary: Present: pale - Neurologic Neurologic: Present: CNII-XII intact - Musculoskeletal Musculoskeletal: Present: generalized weakness, strength equal bilaterally - Psychiatric Psychiatric: Present: A&O x's 3, appropriate affect, intact judgment & insight - Labs CBC & Chem 7: 05/06/19 04:30 05/06/19 04:30 Labs: Abnormal Lab Results - Last 24 Hours (Table) 05/05/19 05/05/19 05/06/19 Range/Units 11:49 16:52 04:30 WBC (3.8-10.6) k/uL RBC (3.80-5.40) m/uL Hgb (11.4-16.0) gm/dL Hct (34.0-46.0) % RDW (11.5-15.5) % Plt Count (150-450) k/uL Lymphocytes # (Manual) (1.0-4.8) k/uL BUN 23 H (7-17) mg/dL Creatinine 0.48 L (0.52-1.04) mg/dL Glucose 168 H (74-99) mg/dL POC Glucose (mg/dL) 189 H 161 H (75-99) mg/dL Calcium 6.5 L (8.4-10.2) mg/dL Total Bilirubin 2.3 H (0.2-1.3) mg/dL AST 12 L (14-36) U/L Total Protein 5.3 L (6.3-8.2) g/dL Albumin 3.0 L (3.5-5.0) g/dL 05/06/19 05/06/19 Range/Units 04:30 06:40 WBC 42.7 H (3.8-10.6) k/uL RBC 2.32 L (3.80-5.40) m/uL Hgb 7.3 L (11.4-16.0) gm/dL Hct 23.1 L (34.0-46.0) % RDW 17.5 H (11.5-15.5) % Plt Count 7 L* (150-450) k/uL Lymphocytes # (Manual) 42.70 H (1.0-4.8) k/uL BUN (7-17) mg/dL Creatinine (0.52-1.04) mg/dL Glucose (74-99) mg/dL POC Glucose (mg/dL) 182 H (75-99) mg/dL Calcium (8.4-10.2) mg/dL Total Bilirubin (0.2-1.3) mg/dL AST (14-36) U/L Total Protein (6.3-8.2) g/dL Albumin (3.5-5.0) g/dL Microbiology - Last 24 Hours (Table) 05/02/19 22:44 Blood Culture - Preliminary Blood No Growth after 72 hours 05/02/19 12:45 Blood Culture - Preliminary Blood No Growth after 72 hours 05/01/19 10:02 Blood Culture - Preliminary Blood No Growth after 96 hours - Imaging and Cardiology Chest x-ray: report reviewed Assessment and Plan (1) Febrile neutropenia Narrative/Plan: No fevers last 2 days, vital signs have remained relatively stable other than the oxygen saturation events slightly elevated respiratory rate. Cont VS monitoring Neutrophiles remain <500 despite GCSF, felt to be r/t marrow involvement with lymphocytes. Cultures neg so far, abx continue, ID following closely Current Visit: Yes Status: Acute Priority: High Code(s): D70.9 - NEUTROPENIA, UNSPECIFIED; R50.81 - FEVER PRESENTING WITH CONDITIONS CLASSIFIED ELSEWHERE SNOMED Code(s): 934712466 (2) CLL (chronic lymphocytic leukemia) Narrative/Plan: Unfortunately patient's condition is very unstable. Most of which is related to her CLL. Due to patient's already compromised situation decision has been made to initiate monoclonal antibody Rituxan without the chemotherapy at this time. NCCN guidelines have been forwarded to pharmacy, awaiting pharmacy review. Orders for treatment will be written as soon as the drug is on site so that can be administered. Have requested chemo infusion nursing to administer. I discussed the above with the patient, who very much understands her unusual circumstances. She is in agreement to began with the single agent monoclonal antibody Rituxan so as to initiate some treatment for her CLL. The reason that the Rituxan has been decided on is that it typically does not have the hematological toxicities of chemotherapy. Patient will have labs ordered daily, tumor lysis labs daily as well. Current Visit: Yes Status: Acute Priority: High Code(s): C91.90 - LYMPHOID LEUKEMIA, UNSPECIFIED NOT HAVING ACHIEVED REMISSION SNOMED Code(s): 66225266 (3) Pancytopenia Narrative/Plan: Persistent, felt to be related to CLL. Patient given 1 unit of single donor platelets for a platelet count of 7000 today. Transfuse for platelet <10,000 or if symptomatic. NO ASA, NSAIDs, a nticoagulation, ibuprofen or motrin. Hemoglobin 7.3 today, no transfusion today WBC/ALC, stable Current Visit: Yes Status: Acute Priority: High Code(s): D61.818 - OTHER PANCYTOPENIA SNOMED Code(s): 106911486 (4) Breast cancer Narrative/Plan: Cont arimidex Current Visit: No Status: Chronic Priority: Low Code(s): C50.919 - MALIGNANT NEOPLASM OF UNSP SITE OF UNSPECIFIED FEMALE BREAST SNOMED Code(s): 426342871 (5) Gastrointestinal stromal neoplasm Narrative/Plan: Gleevec held for this condition, no treatment at this time Current Visit: No Status: Chronic Priority: Low Code(s): C49.A0 - GASTROINTESTINAL STROMAL TUMOR, UNSPECIFIED SITE SNOMED Code(s): 871345978
[2019-05-06 16:58] LABS: Glucose,Whole Blood 189 mg/dL (75-99)
--- NOTE | 2019-05-06 20:11 | PN ---
PROGRESS NOTE DATE OF SERVICE: 05/06/2019 REASON FOR FOLLOWUP: Pneumonia. INTERVAL HISTORY: The patient is currently afebrile. Her breathing has been denies having any chest pain. Did have some cough but not bringing up any sputum. No nausea, no vomiting. No abdominal pain or diarrhea. PHYSICAL EXAMINATION: Blood pressure 147/72 with pulse 85, temperature 98.5. She is 90% on high-flow oxygen. General description is an elderly female up in the bed in no distress. RESPIRATORY SYSTEM: Unlabored breathing with decreased breath sounds at the base. HEART: S1, S2. Regular rate and rhythm. ABDOMEN: Soft. No tenderness. LABS: Hemoglobin 7.3, white 42.7, creatinine 0.48. Blood culture has been negative. Sputum was not provided. DIAGNOSTIC IMPRESSION AND PLAN: Patient in acute respiratory distress who did have a fever with pulmonary infiltrates concerning for pneumonia, currently covered with cefepime and vancomycin; to continue. Monitor her clinical course closely. Kidney function normal so far. MMODL / IJN: [id number] /
[2019-05-06] MEDS: ONDANSETRON 4 MG/2 ML VIAL IVP PRN (20:43)
[2019-05-06] MEDS: ATORVASTATIN 40 MG TAB PO SCH (20:47)
[2019-05-06] MEDS: LACTATED RINGERS 1,000 ML IV SCH (20:47)
[2019-05-06 21:23] LABS: Glucose,Whole Blood 194 mg/dL (75-99)
[2019-05-07] MEDS: methylPREDNISolone SOD SUCCI 40 MG/ML 1 ML VIAL IV SCH ×4 (00:16→23:56)
[2019-05-07] MEDS: VANCOMYCIN 1,750 MG in SODIUM CHLORIDE 0.9% 500 ML 500 ML IVPB SCH ×2 (02:39→15:54)
[2019-05-07] MEDS: CEFEPIME 2 GM in SODIUM CHLORIDE 0.9% 100 ML IVPB SCH ×3 (04:50→20:45)
[2019-05-07 05:53] LABS: Anisocytosis Slight; HCT 22.7 % (34.0-46.0); HGB 7.3 gm/dL (11.4-16.0); MCH 32.1 pg (25.0-35.0); MCHC 32.3 g/dL (31.0-37.0); MCV 99.6 fL (80.0-100.0); Macrocytosis Slight; Mean Platelet Volume 7.2; RBC 2.28 m/uL (3.80-5.40); RDW 17.2 % (11.5-15.5); WBC 46.6 k/uL (3.8-10.6)
[2019-05-07 05:57] LABS: ALT 21 U/L (9-52); AST 10 U/L (14-36); African American GFR (CKD) >90 (>60 ml/min/1.73 sqM); Alkaline Phosphatase 45 U/L (38-126); Anion Gap 6 mmol/L; Blood Urea Nitrogen 23 mg/dL (7-17); Calcium 6.5 mg/dL (8.4-10.2); Carbon Dioxide 28 mmol/L (22-30); Chloride 104 mmol/L (98-107); Glucose 161 mg/dL (74-99); Phosphorus 2.8 mg/dL (2.5-4.5); Potassium 4.2 mmol/L (3.5-5.1); Sodium 138 mmol/L (137-145); Total Bilirubin 1.8 mg/dL (0.2-1.3); Total Protein 5.3 g/dL (6.3-8.2); Uric Acid 1.8 mg/dL (3.7-7.4)
[2019-05-07 06:04] LABS: Platelet Count 7 k/uL (150-450)
[2019-05-07 07:25] LABS: Glucose,Whole Blood 177 mg/dL (75-99)
[2019-05-07] MEDS: IPRATROPIUM-ALBUTEROL 3 ML NEB INHALATION SCH ×4 (07:32→19:21)
[2019-05-07] MEDS: INSULIN ASPART (NovoLOG) 100 UNIT/ML VIAL SQ SCH ×4 (07:33→20:46)
--- NOTE | 2019-05-07 07:50 | XR ---
EXAMINATION TYPE: XR chest 1V portable DATE OF EXAM: 05/07/2019 COMPARISON: Prior chest x-ray 05/06/2019 HISTORY: Shortness of breath TECHNIQUE: Single frontal view of the chest is obtained. FINDINGS: Bilateral airspace disease persists. No evident pneumothorax. Left hemidiaphragm appears s omewhat elevated, there may be left pleural effusion. Heart size is stable, patient is rotated. Port- A-Cath is unchanged. Surgical clips present over the right breast. There are overlying cardiac leads. IMPRESSION: Bilateral airspace disease, correlate for pneumonia. Follow-up recommended.
[2019-05-07] MEDS: ANIDULAFUNGIN 100 MG in SODIUM CHLORIDE 0.9% 100 ML IVPB SCH (08:29)
[2019-05-07] MEDS: ANASTROZOLE 1 MG TAB PO SCH (08:29)
[2019-05-07] MEDS: DOCUSATE 100 MG CAP PO SCH (08:29)
[2019-05-07] MEDS: METOPROLOL TARTRATE 25 MG TAB PO SCH ×2 (08:29→20:45)
[2019-05-07] MEDS: amLODIPine 5 MG TAB PO SCH ×2 (08:29→20:45)
[2019-05-07] MEDS: FUROSEMIDE 10 MG/ML 4 ML VIAL IV SCH ×2 (08:29→20:45)
[2019-05-07] MEDS: PANTOPRAZOLE 40 MG TABLET PO SCH ×2 (08:29→17:10)
[2019-05-07] MEDS: FERROUS SULFATE 325 MG TAB PO SCH (08:29)
[2019-05-07] MEDS: FILGRASTIM-SNDZ 480 MCG/0.8 ML SYRINGE SQ SCH (08:30)
[2019-05-07] MEDS: guaiFENesin-DM 100-10MG/5ML 10 ML CUP PO PRN ×2 (08:44→20:46)
[2019-05-07] MEDS ORDERED: predniSONE 20 MG TAB PO SCH (09:00)
[2019-05-07 09:04] LABS: Lymphocytes # (M) 45.67 k/uL (1.0-4.8); Neutrophils % (M) 2 %; Nucleated Red Blood Cells 0 /100 WBC (0-0); Total Cells Counted 100
[2019-05-07 09:06] LABS: Poikilocytosis (M) Present
--- NOTE | 2019-05-07 10:03 | P.PN ---
Subjective Progress Note Date: 05/07/19 05/07/2019 patient is still on high flow oxygen, airvo with a flow of 55 L and FiO2 of 50%. Still struggling with oxygenation to maintain a pulse ox above 90%. The patient is not complaining of any worsening shortness of breath. No cough or sputum production. She receives a broad-spectrum antibiotics. She is also on IV Lasix once a day and she producing adequate amount of urine output following Lasix administration. Cultures are all negative. She got a platelet transfusion yesterday and despite that the platelet count is still low at 7000 and the patient was given another platelet concentrates transfusion today. Discussed the case with hematology oncology and the patient will be given a dose of Rituxan taken account that the patient has diffuse infiltration of the bone marrow with CLL and lymphocytes and absolute neutrophil count remains quite low. The bone marrow is pretty much replaced with CLL related lymphocytes. No fever. No chills. Monitor mentation pH is tolerating her diet. She remains hemodynamically stable. She remains on IV Solu-Medrol. Antibiotic coverage essentially unchanged compared to yesterday. Objective - Vital Signs Vital signs: Vital Signs Temp 98.4 F 05/07/19 08:44 Pulse 74 05/07/19 09:00 Resp 21 05/07/19 09:00 BP 158/80 05/07/19 09:00 Pulse Ox 97 05/07/19 09:00 Intake & Output 05/06/19 05/07/19 05/07/19 18:59 06:59 18:59 Intake Total 517 220 364 Output Total 2925 1620 315 Balance -2408 -1400 49 Weight 105.9 kg Intake: IV 260 220 40 .9 260 220 40 Oral 118 Blood Product 257 206 Platelet Irr Pheresis 257 Acda1 Unit [id number] Platelet Pheresis Acda2 206 Unit [id number] Output: Urine 2925 1620 315 Other: Voiding Method Indwelling Catheter Indwelling Catheter Indwelling Catheter - Exam Gen. appearance the patient is calm and comfortable no acute distress and she is using a airvo device, with a FiO2 of 50% and the flow of 55 L. Head exam was generally normal. There was no scleral icterus or corneal arcus. Mucous membranes were moist. Neck was supple and without jugular venous distension, thyromegaly, or carotid bruits. Carotids were easily palpable bilaterally. There was no adenopathy. Lungs sounds are diminished bilaterally along with crackles in the mid and lower lung finn heard throughout the lung finn bilaterally. Cardiac exam revealed the PMI to be normally situated and sized. The rhythm was regular and no extrasystoles were noted during several minutes of auscultation. The first and second heart sounds were normal and physiologic splitting of the second heart sound was noted. There were no murmurs, rubs, clicks, or gallops. Abdominal exam revealed normal bowel sounds. The abdomen was soft, non-tender, and without masses, organomegaly, or appreciable enlargement of the abdominal aorta. Examination of the extremities revealed easily palpable radial, femoral and pedal pulses. There was no cyanosis, clubbing or edema. The patient has developed some minor hematomas at the fingertips specially in the right index finger where most of the blood sugar monitoring his been done via needle sticks. Examination of the skin revealed no evidence of significant rashes, suspicious appearing nevi or other concerning lesions. Neurologically the patient is awake and alert and there is no focal neurological deficit. - Labs CBC & Chem 7: 05/07/19 04:35 05/07/19 04:35 Labs: Abnormal Lab Results - Last 24 Hours (Table) 05/06/19 05/06/19 05/06/19 Range/Units 04:30 11:44 16:47 WBC (3.8-10.6) k/uL RBC (3.80-5.40) m/uL Hgb (11.4-16.0) gm/dL Hct (34.0-46.0) % RDW (11.5-15.5) % Plt Count (150-450) k/uL Neutrophils # (Manual) (1.3-7.7) k/uL Lymphocytes # (Manual) (1.0-4.8) k/uL BUN (7-17) mg/dL Creatinine (0.52-1.04) mg/dL Glucose (74-99) mg/dL POC Glucose (mg/dL) 191 H 189 H (75-99) mg/dL Uric Acid (3.7-7.4) mg/dL Calcium (8.4-10.2) mg/dL Total Bilirubin (0.2-1.3) mg/dL AST (14-36) U/L Total Protein (6.3-8.2) g/dL Albumin (3.5-5.0) g/dL Procalcitonin 1.11 H (0.02-0.09) ng/mL 05/06/19 05/07/19 05/07/19 Range/Units 21:12 04:35 04:35 WBC 46.6 H (3.8-10.6) k/uL RBC 2.28 L (3.80-5.40) m/uL Hgb 7.3 L (11.4-16.0) gm/dL Hct 22.7 L (34.0-46.0) % RDW 17.2 H (11.5-15.5) % Plt Count 7 L* (150-450) k/uL Neutrophils # (Manual) 0.93 L (1.3-7.7) k/uL Lymphocytes # (Manual) 45.67 H (1.0-4.8) k/uL BUN 23 H (7-17) mg/dL Creatinine 0.49 L (0.52-1.04) mg/dL Glucose 161 H (74-99) mg/dL POC Glucose (mg/dL) 194 H (75-99) mg/dL Uric Acid 1.8 L (3.7-7.4) mg/dL Calcium 6.5 L (8.4-10.2) mg/dL Total Bilirubin 1.8 H (0.2-1.3) mg/dL AST 10 L (14-36) U/L Total Protein 5.3 L (6.3-8.2) g/dL Albumin 3.0 L (3.5-5.0) g/dL Procalcitonin (0.02-0.09) ng/mL 05/07/19 Range/Units 07:13 WBC (3.8-10.6) k/uL RBC (3.80-5.40) m/uL Hgb (11.4-16.0) gm/dL Hct (34.0-46.0) % RDW (11.5-15.5) % Plt Count (150-450) k/uL Neutrophils # (Manual) (1.3-7.7) k/uL Lymphocytes # (Manual) (1.0-4.8) k/uL BUN (7-17) mg/dL Creatinine (0.52-1.04) mg/dL Glucose (74-99) mg/dL POC Glucose (mg/dL) 177 H (75-99) mg/dL Uric Acid (3.7-7.4) mg/dL Calcium (8.4-10.2) mg/dL Total Bilirubin (0.2-1.3) mg/dL AST (14-36) U/L Total Protein (6.3-8.2) g/dL Albumin (3.5-5.0) g/dL Procalcitonin (0.02-0.09) ng/mL Microbiology - Last 24 Hours (Table) 05/02/19 22:44 Blood Culture - Preliminary Blood No Growth after 96 hours 05/02/19 12:45 Blood Culture - Preliminary Blood No Growth after 96 hours 05/01/19 10:02 Blood Culture - Preliminary Blood No Growth after 120 hours Assessment and Plan Plan: 1 acute hypoxic respiratory failure secondary to a transfusion related acute lung injury versus pneumonia. The CAT scan of the chest showed extensive consolidation more so in the upper lobes and the patient is covered with broad- spectrum antibiotics for now. Cultures of been negative. Repeat chest x-ray from today shows no interval change and the patient continues to be hypoxic on the same high flow oxygen settings.. CHF or any other infectious possibilities are felt to be less likely. Cultures of been all negative and the patient continues to be on broad-spectrum antibiotics. The patient continues to be gently diuresed. The patient remains on high flow oxygen with a 50% FiO2 and t he flow of 55 L. CAT scan of the chest was noted. Echo was noted it in terms of the chest x-ray findings and oxygenation, the patient remains unchanged compared to yesterday and the patient is still struggling with hypoxemia and diffuse bilateral pulmonary infiltrates which could be either infectious or related to transfusion related ARDS. 2 CLL, with ongoing issues with pancytopenia with significant drop in the platelet count post platelet transfusion. The patient was started on Rituxan and a dose will be given to him today. Remains profoundly thrombocytopenic despite platelet transfusion. No signs of any acute bleeding at this point in time. 3 pancytopenia with 99% replacement of the marrow elements with CLL 4 history of Rituxin treatment approximately 6 months ago regarding CLL 5 diastolic heart failure with an ejection fraction of 60-65% and moderate mitral regurgitation 6 breast cancer postlumpectomy followed by chemoradiation therapy and currently on Arimidex 7 obstructive sleep apnea maintained on CPAP therapy on outpatient basis 8 hypertension Plan High flow oxygen. Keep same antibiotic coverage. Chest x-ray findings are stable and unchanged compared to yesterday. Oxygenation status remains unchanged compared to yesterday.. Continue IV Solu-Medrol. Continue rest of the supportive care. Check a pro-calcitonin level. Start Rituxan. Increase the Lasix to twice a day. Monitor platelet count. Another platelet transfusion was given. Watch for any signs of bleeding. We'll continue to follow. No change in her respiratory status over the past 3 days at least.
--- NOTE | 2019-05-07 10:36 | P.PN ---
Subjective Is a 73-year-old female with a known history of hypertension, hyperlipidemia and CLL and history of breast cancer in 2014 status post chemoradiation and surgery who is currently being treated for CLL with imatinab and is on follow-up with Dr. Oliva as an outpatient was sent to Hospital due to thrombocytopenia. Patient had blood workup done at oncologist office and was found have platelet count 1000. Patient says that she has been developing rash over her hands and feet since yesterday evening. Denied any complaints of nosebleed, hematemesis or melena. Hemoglobin is 8.7. Patient was sent to ER for platelet transfusion and close monitoring. Denied any complaints of chest pain currently. No nausea vomiting or diarrhea. No headache or dizziness or lightheadedness. Platelet count 3000, hemoglobin 8.7, WBC 52.6 05/06/2019 This is a pleasant 73 years old female who presents for pancytopenia and rash, she got multiple blood transfusion with resultant acute hypoxic failure secondary to transfusion-related acute lung injury versus pneumonia and she was sent to the ICU. Patient has been followed by critical care and pulmonary team as well as hematology/oncology team. Currently she is fully awake however she is on high flow cannula saturating 91% on FiO2 of 50%. Her token is limited by his dyspnea. Rest of vitals are stable. However she has severe thrombus ectopy 7, leukocytosis with 40 2.7K, hemoglobin 7.3. Creatinine 0.4. Patient remains in the ICU and treated with antibiotics and Solu-Medrol. Patient possibly will start Rituxan oncology team 05/07/2019 Patient remains in the ICU in critical condition. She is lying in bed not in respiratory distress, however she cannot finish prolonged sentences. She remains on high flow oxygen via nasal cannula with flow rate of 55 mL/M and FiO2 of 49%. Patient is afebrile. Patient still have leukocytosis of 46.6, however absolute neutrophil count is still low at 0.9. bilirubin stable at 7.3 and platelets stable at 7K. Creatinine is normal at 0.4, sugar is controlled. Uric acid is 1.8, calcium 6.5, total bilirubin is 1.8. Liver enzymes not elevated. ProBNP is trending down from 8000+ down to 6000. Patient was started on Rituxan for her CLL. Also patient got another dose of platelet transfusion with platelet count remains the same and she going to get another unit of platelet transfusion. Review of systems CONSTITUTIONAL: No fever, no malaise, no fatigue. HEENT: No recent visual problems or hearing problems. Denied any sore throat. CARDIOVASCULAR: No orthopnea, PND, no palpitations, no syncope. PULMONARY: No shortness of breath, no cough, no hemoptysis. GASTROINTESTINAL: No diarrhea, no nausea, no vomiting, no abdominal pain. N ormoactive bowel sounds. NEUROLOGICAL: No headaches, no weakness, no numbness. HEMATOLOGICAL: Denies any bleeding or petechiae. GENITOURINARY: Denies any burning micturition, frequency, or urgency. MUSCULOSKELETAL/RHEUMATOLOGICAL: Denies any joint pain, swelling, or any muscle pain. ENDOCRINE: Denies any polyuria or polydipsia. Active Medications Generic Name Dose Route Start Last Admin Trade Name Freq PRN Reason Stop Dose Admin Acetaminophen 1,000 mg 05/07/19 11:00 05/07/19 10:04 Tylenol Tab PO 05/07/19 11:01 1,000 mg ONCE ONE Administration Albuterol/Ipratropium 3 ml 05/01/19 23:31 05/07/19 07:32 Duoneb 0.5 Mg-3 Mg/3 Ml Soln INHALATION 3 ml RT-QID VALENTE Administration Albuterol/Ipratropium 3 ml 05/01/19 23:37 05/06/19 03:12 Duoneb 0.5 Mg-3 Mg/3 Ml Soln INHALATION 3 ml RT-Q2H PRN Administration Shortness Of Breath Or Wheezing Amlodipine Besylate 5 mg 04/25/19 21:00 05/07/19 08:29 Norvasc PO 5 mg BID VALENTE Administration Anastrozole 1 mg 04/26/19 09:00 05/07/19 08:29 Arimidex PO 1 mg DAILY VALENTE Administration Atorvastatin Calcium 40 mg 04/25/19 21:00 05/06/19 20:47 Lipitor PO 40 mg HS VALENTE Administration Diphenhydramine HCl 50 mg 05/07/19 11:00 05/07/19 10:05 Benadryl IVP 05/07/19 11:01 50 mg ONCE ONE Administration Docusate Sodium 100 mg 04/26/19 09:00 05/07/19 08:29 Colace PO 100 mg DAILY VALENTE Administration Famotidine 20 mg 05/07/19 11:00 05/07/19 10:05 Pepcid IV 05/07/19 11:01 20 mg ONCE ONE Administration Ferrous Sulfate 325 mg 04/26/19 09:00 05/07/19 08:29 Feosol PO 325 mg DAILY VALENTE Administration Filgrastim 480 mcg 05/02/19 12:30 05/07/19 08:30 Zarxio SQ 480 mcg DAILY VALENTE Administration Furosemide 40 mg 05/07/19 21:00 Lasix IV BID VALENTE Guaifenesin/Dextromethorphan 10 ml 05/07/19 06:19 05/07/19 08:44 Robitussin Dm PO 10 ml Q6H PRN Administration Cough Lactated Ringer's 1,000 mls @ 20 mls/hr 04/28/19 19:54 05/06/19 20:47 Lactated Ringers IV Not Given .Q24H VALENTE Anidulafungin 100 mg/ Sodium 100 mls @ 84 mls/hr 05/03/19 09:00 05/07/19 08:29 Chloride IVPB 84 mls/hr DAILY VALENTE Administration Cefepime HCl 2 gm/ Sodium 100 mls @ 200 mls/hr 05/03/19 04:00 05/07/19 04:50 Chloride IVPB 200 mls/hr Q8H VALENTE Administration Vancomycin HCl 1,750 mg/ 500 mls @ 167 mls/hr 05/06/19 14:00 05/07/19 02:39 Sodium Chloride IVPB 167 mls/hr Q12H VALENTE Administration Rituximab 750 mg/ Sodium 575 mls @ 0 mls/hr 05/07/19 12:00 Chloride IV 05/07/19 12:01 .Q0M NR Protocol Titrate Insulin Aspart 0 unit 05/04/19 07:30 05/07/19 07:33 Novolog SQ 4 unit ACHS VALENTE Administration Protocol Lidocaine HCl 0.1 ml 04/28/19 19:54 .Xylocaine 1% Inj (10mg/Ml) For Iv Start INTRADERMA PER PROTOCOL PRN IV Start Methylprednisolone Sodium Succinate 40 mg 05/04/19 00:00 05/07/19 08:29 Solu-Medrol IV 40 mg Q8HR VALENTE Administration Methylprednisolone Sodium Succinate 125 mg 05/07/19 11:00 05/07/19 10:05 Solu-Medrol IV 05/07/19 11:01 125 mg ONCE ONE Administration Metoprolol Tartrate 25 mg 05/02/19 21:00 05/07/19 08:29 Lopressor PO 25 mg BID VALENTE Administration Miscellaneous Information 1 each 05/06/19 05:51 Potassium Per Protocol MISCELLANE DAILY PRN Per Protocol Protocol Miscellaneous Information 1 each 05/08/19 01:00 Vancomycin Trough Due MISCELLANE 05/08/19 01:01 ONCE ONE Naloxone HCl 0.2 mg 04/25/19 16:31 Narcan IV Q2M PRN Opioid Reversal Nitroglycerin 0.4 mg 04/30/19 23:41 05/01/19 08:54 Nitrostat SUBLINGUAL 0.4 mg ONCE PRN Administration Chest Pain Ondansetron HCl 4 mg 05/01/19 23:00 05/06/19 20:43 Zofran IVP 4 mg Q6HR PRN Administration Nausea And Vomiting Pantoprazole Sodium 40 mg 05/04/19 20:15 05/07/19 08:29 Protonix PO 40 mg AC-BID VALENTE Administration Objective - Vital Signs Vital signs: Vital Signs Temp 98.4 F 05/07/19 08:44 Pulse 70 05/07/19 10:00 Resp 20 05/07/19 10:00 BP 140/99 05/07/19 10:00 Pulse Ox 96 05/07/19 10:00 Intake & Output 05/06/19 05/07/19 05/07/19 18:59 06:59 18:59 Intake Total 517 220 474 Output Total 3242 1620 1515 Balance -5341 -1400 -4019 Weight 105.9 kg Intake: IV 260 220 150 .9 260 220 40 Anidulafungin 100 mg In 100 Sodium Chloride 0.9% 100 ml @ 84 mls/hr IVPB DAILY [facility] Rx#:[id number] Cefepime 2 gm In Sodium 10 Chloride 0.9% 100 ml @ 200 mls/hr IVPB Q8H [facility] Rx#:[id number] Oral 118 Blood Product 257 206 Platelet Irr Pheresis 257 Acda1 Unit [id number] Platelet Pheresis Acda2 206 Unit [id number] Output: Urine 2925 1620 1515 Other: Voiding Method Indwelling Catheter Indwelling Catheter Indwelling Catheter - Exam GENERAL: The patient is alert and oriented x3, not in any acute distress. Well developed, well nourished. HEENT: Pupils are round and equally reacting to light. EOMI. No scleral icterus. No conjunctival pallor. Normocephalic, atraumatic. No pharyngeal erythema. No thyromegaly. CARDIOVASCULAR: S1 and S2 present. No murmurs, rubs, or gallops. -PULMONARY: bilateral harsh breath sounds with equal air entry on both sides. Scattered wheezing ABDOMEN: Soft, nontender, nondistended, normoactive bowel sounds. No palpable organomegaly. MUSCULOSKELETAL: No joint swelling or deformity. EXTREMITIES: No cyanosis, clubbing, or pedal edema. NEUROLOGICAL: Gross neurological examination did not reveal any focal deficits. SKIN: No rash - Labs CBC & Chem 7: 05/07/19 04:35 05/07/19 04:35 Labs: Abnormal Lab Results - Last 24 Hours (Table) 05/06/19 05/06/19 05/06/19 Range/Units 04:30 11:44 16:47 WBC (3.8-10.6) k/uL RBC (3.80-5.40) m/uL Hgb (11.4-16.0) gm/dL Hct (34.0-46.0) % RDW (11.5-15.5) % Plt Count (150-450) k/uL Neutrophils # (Manual) (1.3-7.7) k/uL Lymphocytes # (Manual) (1.0-4.8) k/uL BUN (7-17) mg/dL Creatinine (0.52-1.04) mg/dL Glucose (74-99) mg/dL POC Glucose (mg/dL) 191 H 189 H (75-99) mg/dL Uric Acid (3.7-7.4) mg/dL Calcium (8.4-10.2) mg/dL Total Bilirubin (0.2-1.3) mg/dL AST (14-36) U/L Total Protein (6.3-8.2) g/dL Albumin (3.5-5.0) g/dL Procalcitonin 1.11 H (0.02-0.09) ng/mL 05/06/19 05/07/19 05/07/19 Range/Units 21:12 04:35 04:35 WBC 46.6 H (3.8-10.6) k/uL RBC 2.28 L (3.80-5.40) m/uL Hgb 7.3 L (11.4-16.0) gm/dL Hct 22.7 L (34.0-46.0) % RDW 17.2 H (11.5-15.5) % Plt Count 7 L* (150-450) k/uL Neutrophils # (Manual) 0.93 L (1.3-7.7) k/uL Lymphocytes # (Manual) 45.67 H (1.0-4.8) k/uL BUN 23 H (7-17) mg/dL Creatinine 0.49 L (0.52-1.04) mg/dL Glucose 161 H (74-99) mg/dL POC Glucose (mg/dL) 194 H (75-99) mg/dL Uric Acid 1.8 L (3.7-7.4) mg/dL Calcium 6.5 L (8.4-10.2) mg/dL Total Bilirubin 1.8 H (0.2-1.3) mg/dL AST 10 L (14-36) U/L Total Protein 5.3 L (6.3-8.2) g/dL Albumin 3.0 L (3.5-5.0) g/dL Procalcitonin (0.02-0.09) ng/mL 05/07/19 Range/Units 07:13 WBC (3.8-10.6) k/uL RBC (3.80-5.40) m/uL Hgb (11.4-16.0) gm/dL Hct (34.0-46.0) % RDW (11.5-15.5) % Plt Count (150-450) k/uL Neutrophils # (Manual) (1.3-7.7) k/uL Lymphocytes # (Manual) (1.0-4.8) k/uL BUN (7-17) mg/dL Creatinine (0.52-1.04) mg/dL Glucose (74-99) mg/dL POC Glucose (mg/dL) 177 H (75-99) mg/dL Uric Acid (3.7-7.4) mg/dL Calcium (8.4-10.2) mg/dL Total Bilirubin (0.2-1.3) mg/dL AST (14-36) U/L Total Protein (6.3-8.2) g/dL Albumin (3.5-5.0) g/dL Procalcitonin (0.02-0.09) ng/mL Microbiology - Last 24 Hours (Table) 05/02/19 22:44 Blood Culture - Preliminary Blood No Growth after 96 hours 05/02/19 12:45 Blood Culture - Preliminary Blood No Growth after 96 hours 05/01/19 10:02 Blood Culture - Preliminary Blood No Growth after 120 hours Assessment and Plan Assessment: Acute hypoxic respiratory failure secondary to acute lung injury related to blood/platelet transfusion versus pneumonia. CHF is less likely Anemia and thrombocytopenia and neutropenia secondary to CLL Petechial rash secondary to thrombocytopenia. CLL History of breast cancer in 2013 status post chemo/radiation and surgery. Cu rrently on anastrozole Hypertension Hyperlipidemia Osteoarthritis Previous history of smoking DVT prophylaxis with SCDs Plan: This is a pleasant 73 years old female who presents with anemia, thrombocytopenia and rash, eventually developed respiratory distress and acute lung injury versus pneumonia. Continue with antibiotics. Continue with steroids. Continue with Lasix. Patient on Protonix. Follow-up with hematology/oncology team recommendation. Patient is on Rituxan. Pulmonary critical team are following the patient closely. Platelets and blood transfusion as indicated. Monitor for signs of bleeding. Labs and medication were reviewed.. Continue same treatment. Continue with symptomatic treatment. Resume home medication. Monitor lytes and vitals. DVT and GI prophylaxis. Further recommendations of the clinical course of the patient DVT prophylaxis: No anticoagulation in view of severe thrombocytopenia GI Prophylaxis: Protonix Prognosis is guarded
[2019-05-07] MEDS ORDERED: FAMOTIDINE 20 MG/2 ML VIAL IV ONE (11:00)
[2019-05-07] MEDS ORDERED: ACETAMINOPHEN TAB 500 MG TAB PO ONE (11:00)
[2019-05-07] MEDS ORDERED: diphenhydrAMINE 50 MG/ML 1 ML VIAL IVP ONE (11:00)
[2019-05-07] MEDS ORDERED: methylPREDNISolone SOD SUCCI 125 MG/2 ML VIAL IV ONE (11:00)
--- NOTE | 2019-05-07 11:07 | PN ---
PROGRESS NOTE A 73-year-old lady that we are following for congestive heart failure. She still has shortness of breath. Continues to have thrombocytopenia. Remains in sinus rhythm. PHYSICAL EXAMINATION: On exam, vital signs are stable. Chest exam reveals diminished air entry at the bases. Heart exam reveals first and second heart sounds. No gallop. Examination of extremities did not reveal any edema. Peripheral pulses are felt. ASSESSMENT: 1. Chronic diastolic heart failure. 2. Paroxysmal atrial fibrillation. 3. Thrombocytopenia. PLAN: The Lasix dose had been increased to 40 b.i.d. She will continue rest of the medication. Prognosis is guarded. MMODL / IJN: [id number] /
[2019-05-07 11:59] LABS: Glucose,Whole Blood 183 mg/dL (75-99)
[2019-05-07] MEDS ORDERED: SODIUM CHLORIDE 0.9% IV NR (12:00)
[2019-05-07] MEDS ORDERED: RITUXIMAB IV NR (12:00)
--- NOTE | 2019-05-07 14:40 | P.PN ---
Subjective Progress Note Date: 05/07/19 Principal diagnosis: CLL with pancytopenia, breast cancer Hx, GIST Hx In follow-up today patient has started Rituxan infusion when seen. She is feeling very tired today, wamts to sleep denies oral irritation nausea, chest pain, she is short of breath with any activity including talking, her oxygen saturation drops into the high 80s range, this is stable, no fevers, diarrhea, abdominal pain, bleeding, mild swelling. Nursing reported dark urine this a.m., patient is being diuresed with clear light yellow urine in the [place], patient denies any dysuria. Objective - Vital Signs Vital signs: Vital Signs Temp 98.9 F 05/07/19 12:00 Pulse 65 05/07/19 14:00 Resp 14 05/07/19 14:00 BP 154/68 05/07/19 14:00 Pulse Ox 97 05/07/19 14:00 Intake & Output 05/06/19 05/07/19 05/07/19 18:59 06:59 18:59 Intake Total 107 144 1553.084 Output Total 2925 1620 3090 Balance -5372 -1400 -1941.916 Weight 105.9 kg Intake: IV 260 220 320 .9 260 220 110 Anidulafungin 100 mg In 100 Sodium Chloride 0.9% 100 ml @ 84 mls/hr IVPB DAILY [facility] Rx#:[id number] Cefepime 2 gm In Sodium 110 Chloride 0.9% 100 ml @ 200 mls/hr IVPB Q8H [facility] Rx#:[id number] Intake, IV Titration 504.084 Amount riTUXimab 750 mg In 504.084 Sodium Chloride 0.9% 500 ml 500 ml @ Titrate IV . Q0M Rx#:[id number] Oral 118 Blood Product 257 206 Platelet Irr Pheresis 257 Acda1 Unit [id number] Platelet Pheresis Acda2 206 Unit [id number] Output: Urine 2925 1620 3090 Other: Voiding Method Indwelling Catheter Indwelling Catheter Indwelling Catheter - Constitutional General appearance: Present: cooperative, no acute distress, obese - EENT Eyes: Present: EOMI ENT: Present: hearing grossly normal, normal oropharynx - Respiratory Respiratory: bilateral: CTA - Cardiovascular Rhythm: regular Heart sounds: normal: S1, S2 Abnormal Heart Sounds: Absent: systolic murmur, diastolic murmur, rub, S3 Suazo p, S4 Gallop, click, other - Peripheral edema leg Peripheral Edema: bilateral: Trace - Gastrointestinal General gastrointestinal: Present: normal bowel sounds, soft - Integumentary Integumentary: Present: normal turgor, pale - Neurologic Neurologic: Present: CNII-XII intact - Musculoskeletal Musculoskeletal: Present: generalized weakness - Psychiatric Psychiatric: Present: A&O x's 3, appropriate affect, intact judgment & insight - Labs CBC & Chem 7: 05/07/19 04:35 05/07/19 04:35 Labs: Abnormal Lab Results - Last 24 Hours (Table) 05/06/19 05/06/19 05/06/19 Range/Units 04:30 16:47 21:12 WBC (3.8-10.6) k/uL RBC (3.80-5.40) m/uL Hgb (11.4-16.0) gm/dL Hct (34.0-46.0) % RDW (11.5-15.5) % Plt Count (150-450) k/uL Neutrophils # (Manual) (1.3-7.7) k/uL Lymphocytes # (Manual) (1.0-4.8) k/uL BUN (7-17) mg/dL Creatinine (0.52-1.04) mg/dL Glucose (74-99) mg/dL POC Glucose (mg/dL) 189 H 194 H (75-99) mg/dL Uric Acid (3.7-7.4) mg/dL Calcium (8.4-10.2) mg/dL Total Bilirubin (0.2-1.3) mg/dL AST (14-36) U/L Total Protein (6.3-8.2) g/dL Albumin (3.5-5.0) g/dL Procalcitonin 1.11 H (0.02-0.09) ng/mL 05/07/19 05/07/19 05/07/19 Range/Units 04:35 04:35 07:13 WBC 46.6 H (3.8-10.6) k/uL RBC 2.28 L (3.80-5.40) m/uL Hgb 7.3 L (11.4-16.0) gm/dL Hct 22.7 L (34.0-46.0) % RDW 17.2 H (11.5-15.5) % Plt Count 7 L* (150-450) k/uL Neutrophils # (Manual) 0.93 L (1.3-7.7) k/uL Lymphocytes # (Manual) 45.67 H (1.0-4.8) k/uL BUN 23 H (7-17) mg/dL Creatinine 0.49 L (0.52-1.04) mg/dL Glucose 161 H (74-99) mg/dL POC Glucose (mg/dL) 177 H (75-99) mg/dL Uric Acid 1.8 L (3.7-7.4) mg/dL Calcium 6.5 L (8.4-10.2) mg/dL Total Bilirubin 1.8 H (0.2-1.3) mg/dL AST 10 L (14-36) U/L Total Protein 5.3 L (6.3-8.2) g/dL Albumin 3.0 L (3.5-5.0) g/dL Procalcitonin (0.02-0.09) ng/mL 05/07/19 Range/Units 11:47 WBC (3.8-10.6) k/uL RBC (3.80-5.40) m/uL Hgb (11.4-16.0) gm/dL Hct (34.0-46.0) % RDW (11.5-15.5) % Plt Count (150-450) k/uL Neutrophils # (Manual) (1.3-7.7) k/uL Lymphocytes # (Manual) (1.0-4.8) k/uL BUN (7-17) mg/dL Creatinine (0.52-1.04) mg/dL Glucose (74-99) mg/dL POC Glucose (mg/dL) 183 H (75-99) mg/dL Uric Acid (3.7-7.4) mg/dL Calcium (8.4-10.2) mg/dL Total Bilirubin (0.2-1.3) mg/dL AST (14-36) U/L Total Protein (6.3-8.2) g/dL Albumin (3.5-5.0) g/dL Procalcitonin (0.02-0.09) ng/mL Microbiology - Last 24 Hours (Table) 05/01/19 10:02 Blood Culture - Final Blood No Growth after 144 hours 05/02/19 22:44 Blood Culture - Preliminary Blood No Growth after 96 hours 05/02/19 12:45 Blood Culture - Preliminary Blood No Growth after 96 hours - Imaging and Cardiology Chest x-ray: report reviewed Assessment and Plan (1) CLL (chronic lymphocytic leukemia) Narrative/Plan: Treatment with single agent monoclonal antibody initiated due to patient' s critical condition and instability requiring ongoing hospitalization. Labs daily Daily follow up Patient is familiar with Rituxan therapy. She had no additional questions. Current Visit: Yes Status: Acute Priority: High Code(s): C91.90 - LYMPHOID LEUKEMIA, UNSPECIFIED NOT HAVING ACHIEVED REMISSION SNOMED Code(s): 40803458 (2) Febrile neutropenia Current Visit: Yes Status: Resolved Priority: High Code(s): D70.9 - NEUTROPENIA, UNSPECIFIED; R50.81 - FEVER PRESENTING WITH CONDITIONS CLASSIFIED ELSEWHERE SNOMED Code(s): 935787111 (3) Pancytopenia Narrative/Plan: Persistent, felt to be related to CLL. Patient given 1 unit of single donor platelets for a platelet count of 7000 today. Transfuse for platelet <10,000 or if symptomatic. NO ASA, NSAIDs, anticoagulation, ibuprofen or motrin. Hemoglobin 7.3 today, no transfusion today WBC/ALC, stable Current Visit: Yes Status: Acute Priority: High Code(s): D61.818 - OTHER PANCYTOPENIA SNOMED Code(s): 848214937 (4) Breast cancer Current Visit: No Status: Chronic Priority: Low Code(s): C50.919 - MALIGNANT NEOPLASM OF UNSP SITE OF UNSPECIFIED FEMALE BREAST SNOMED Code(s): 553117279 (5) Gastrointestinal stromal neoplasm Current Visit: No Status: Chronic Priority: Low Code(s): C49.A0 - GASTROINTESTINAL STROMAL TUMOR, UNSPECIFIED SITE SNOMED Code(s): 803831729
--- NOTE | 2019-05-07 15:28 | PN ---
PROGRESS NOTE DATE OF SERVICE: 05/07/2019 REASON FOR FOLLOWUP: Pneumonia. INTERVAL HISTORY: The patient is currently afebrile. The patient has been breathing comfortably. Cough has decreased in intensity. Remains to be dry. No chest pain. No nausea, no abdominal pain, no diarrhea. PHYSICAL EXAMINATION: Blood pressure 154/60 with a pulse of 55, temperature 98, she is 97% on high-flow oxygen. General description is an elderly female, lying in bed in no distress. RESPIRATORY SYSTEM: Unlabored breathing with decreased breath sounds at the base, no wheeze. HEART: S1, S2. Regular rate and rhythm. ABDOMEN: Soft, no tenderness. LABS: Hemoglobin is 10.1, hematocrit 46.6, BUN of 23, creatinine 0.49. Blood culture has been negative, no sputum collected. DIAGNOSTIC IMPRESSION AND PLAN: Patient with fever, respiratory distress, multifactorial with a component of pneumonia. Blood culture has been done. She was unable to provide any sputum for current culture complaints. Continue to monitor clinical course closely. Continue supportive care. MMODL / IJN: [id number] /
[2019-05-07 17:04] LABS: Glucose,Whole Blood 218 mg/dL (75-99)
[2019-05-07 20:28] LABS: Glucose,Whole Blood 208 mg/dL (75-99)
[2019-05-07] MEDS: LACTATED RINGERS 1,000 ML IV SCH (20:32)
[2019-05-07] MEDS: ATORVASTATIN 40 MG TAB PO SCH (20:45)
[2019-05-08] MEDS: VANCOMYCIN 1,750 MG in SODIUM CHLORIDE 0.9% 500 ML 500 ML IVPB SCH ×2 (00:55→14:48)
[2019-05-08] MEDS ORDERED: VANCOMYCIN TROUGH DUE 1 EACH MISC MISCELLANE ONE (01:00)
[2019-05-08] MEDS: CEFEPIME 2 GM in SODIUM CHLORIDE 0.9% 100 ML IVPB SCH ×3 (04:02→20:33)
[2019-05-08] MEDS: LACTATED RINGERS 1,000 ML IV SCH (05:10)
[2019-05-08 05:19] LABS: Anisocytosis Slight; HCT 20.8 % (34.0-46.0); MCH 32.5 pg (25.0-35.0); MCHC 32.8 g/dL (31.0-37.0); MCV 99.1 fL (80.0-100.0); Macrocytosis Slight; RDW 17.9 % (11.5-15.5)
[2019-05-08 05:29] LABS: HGB 6.8 gm/dL (11.4-16.0); Platelet Count 6 k/uL (150-450)
[2019-05-08 06:10] LABS: ALT 20 U/L (9-52); AST 10 U/L (14-36); African American GFR (CKD) >90 (>60 ml/min/1.73 sqM); Alkaline Phosphatase 40 U/L (38-126); Anion Gap 6 mmol/L; Blood Urea Nitrogen 22 mg/dL (7-17); Calcium 6.6 mg/dL (8.4-10.2); Carbon Dioxide 31 mmol/L (22-30); Chloride 101 mmol/L (98-107); Glucose 181 mg/dL (74-99); Phosphorus 2.9 mg/dL (2.5-4.5); Potassium 3.6 mmol/L (3.5-5.1); Sodium 138 mmol/L (137-145); Total Bilirubin 1.4 mg/dL (0.2-1.3); Total Protein 5.1 g/dL (6.3-8.2); Uric Acid 1.7 mg/dL (3.7-7.4)
[2019-05-08 06:13] LABS: Nucleated Red Blood Cells 0 /100 WBC (0-0); Total Cells Counted 100
[2019-05-08] MEDS ORDERED: Potassium Replacement Protocol 1 EACH MISC MISCELLANE PRN (06:40)
[2019-05-08] MEDS ORDERED: POTASSIUM CHLORIDE ER 20 MEQ TAB.ER PO SCH ×2 (07:00→20:00)
[2019-05-08] MEDS: INSULIN ASPART (NovoLOG) 100 UNIT/ML VIAL SQ SCH ×4 (07:04→20:28)
[2019-05-08] MEDS: PANTOPRAZOLE 40 MG TABLET PO SCH ×2 (07:04→18:20)
[2019-05-08 07:06] LABS: Glucose,Whole Blood 210 mg/dL (75-99)
[2019-05-08] MEDS: IPRATROPIUM-ALBUTEROL 3 ML NEB INHALATION SCH ×4 (07:18→19:07)
[2019-05-08] MEDS: FUROSEMIDE 10 MG/ML 4 ML VIAL IV SCH ×2 (08:19→20:32)
[2019-05-08] MEDS: methylPREDNISolone SOD SUCCI 40 MG/ML 1 ML VIAL IV SCH (08:20)
[2019-05-08] MEDS: ANASTROZOLE 1 MG TAB PO SCH (08:20)
[2019-05-08] MEDS: amLODIPine 5 MG TAB PO SCH ×2 (08:20→20:33)
[2019-05-08] MEDS: FERROUS SULFATE 325 MG TAB PO SCH (08:21)
[2019-05-08] MEDS: METOPROLOL TARTRATE 25 MG TAB PO SCH ×2 (08:21→20:33)
[2019-05-08] MEDS: ANIDULAFUNGIN 100 MG in SODIUM CHLORIDE 0.9% 100 ML IVPB SCH (08:31)
[2019-05-08] MEDS: DOCUSATE 100 MG CAP PO SCH (08:32)
[2019-05-08] MEDS: FILGRASTIM-SNDZ 480 MCG/0.8 ML SYRINGE SQ SCH (08:32)
--- NOTE | 2019-05-08 10:57 | P.PN ---
Subjective Is a 73-year-old female with a known history of hypertension, hyperlipidemia and CLL and history of breast cancer in 2014 status post chemoradiation and surgery who is currently being treated for CLL with imatinab and is on follow-up with Dr. Oliva as an outpatient was sent to Hospital due to thrombocytopenia. Patient had blood workup done at oncologist office and was found have platelet count 1000. Patient says that she has been developing rash over her hands and feet since yesterday evening. Denied any complaints of nosebleed, hematemesis or melena. Hemoglobin is 8.7. Patient was sent to ER for platelet transfusion and close monitoring. Denied any complaints of chest pain currently. No nausea vomiting or diarrhea. No headache or dizziness or lightheadedness. Platelet count 3000, hemoglobin 8.7, WBC 52.6 05/06/2019 This is a pleasant 73 years old female who presents for pancytopenia and rash, she got multiple blood transfusion with resultant acute hypoxic failure secondary to transfusion-related acute lung injury versus pneumonia and she was sent to the ICU. Patient has been followed by critical care and pulmonary team as well as hematology/oncology team. Currently she is fully awake however she is on high flow cannula saturating 91% on FiO2 of 50%. Her token is limited by his dyspnea. Rest of vitals are stable. However she has severe thrombus ectopy 7, leukocytosis with 40 2.7K, hemoglobin 7.3. Creatinine 0.4. Patient remains in the ICU and treated with antibiotics and Solu-Medrol. Patient possibly will start Rituxan oncology team 05/07/2019 Patient remains in the ICU in critical condition. She is lying in bed not in respiratory distress, however she cannot finish prolonged sentences. She remains on high flow oxygen via nasal cannula with flow rate of 55 mL/M and FiO2 of 49%. Patient is afebrile. Patient still have leukocytosis of 46.6, however absolute neutrophil count is still low at 0.9. bilirubin stable at 7.3 and platelets stable at 7K. Creatinine is normal at 0.4, sugar is controlled. Uric acid is 1.8, calcium 6.5, total bilirubin is 1.8. Liver enzymes not elevated. ProBNP is trending down from 8000+ down to 6000. Patient was started on Rituxan for her CLL. Also patient got another dose of platelet transfusion with platelet count remains the same and she going to get another unit of platelet transfusion. 05/08/2019 Patient seen and examined in the ICU, she feels better and his breathing is improving. Today she can talk easier. No chest pain. Her oxygen requirements have lowered significantly down to 9 L via nasal cannula compared to high flow oxygen yesterday. She remains on Lasix 40 mg twice daily and broad-spectrum antibiotics. Also on Rituxan which was started recently. WBC is cut in half down to 21k, hemoglobin is went down to 6.8 and platelets to 6K. Her creatinine is still normal at 0.3, uric acid and calcium are low. Total bilirubin is 1.4. And sugar is controlled. Objective - Vital Signs Vital signs: Vital Signs Temp 98.4 F 05/08/19 10:30 Pulse 66 05/08/19 10:30 Resp 14 05/08/19 10:30 BP 160/78 05/08/19 10:30 Pulse Ox 98 05/08/19 10:30 Intake & Output 05/07/19 05/08/19 05/08/19 18:59 06:59 18:59 Intake Total 5948.862 3172 287 Output Total 3785 2350 1525 Balance -2556.916 -1203 -1238 Weight 105.9 kg 103.7 kg Intake: IV 400 940 60 .9 190 240 60 Anidulafungin 100 mg In 100 Sodium Chloride 0.9% 100 ml @ 84 mls/hr IVPB DAILY [facility] Rx#:[id number] Cefepime 2 gm In Sodium 110 200 Chloride 0.9% 100 ml @ 200 mls/hr IVPB Q8H [facility] Rx#:[id number] Vancomycin 1,750 mg In 500 Sodium Chloride 0.9% 500 ml 500 ml @ 167 mls/hr IVPB Q16H [facility] Rx#: [id number] Intake, IV Titration 504.084 20 Amount Lactated Ringers 1,000 ml 20 @ 20 mls/hr IV .Q24H [facility] Rx#:[id number] riTUXimab 750 mg In 504.084 Sodium Chloride 0.9% 500 ml 500 ml @ Titrate IV . Q0M Rx#:[id number] Oral 118 Blood Product 206 207 207 Platelet Irr Pheresis 0 Acda1 Unit [id number] Platelet Pheresis Acda2 0 207 Unit [id number] Platelet Pheresis Acda2 206 Unit [id number] Output: Urine 0210 0161 1525 Other: Voiding Method Indwelling Catheter Indwelling Catheter - Exam GENERAL: The patient is alert and oriented x3, not in any acute distress. Well developed, well nourished. HEENT: Pupils are round and equally reacting to light. EOMI. No scleral icterus. No conjunctival pallor. Normocephalic, atraumatic. No pharyngeal erythema. No thyromegaly. CARDIOVASCULAR: S1 and S2 present. No murmurs, rubs, or gallops. -PULMONARY: bilateral harsh breath sounds with equal air entry on both sides. Scattered wheezing ABDOMEN: Soft, nontender, nondistended, normoactive bowel sounds. No palpable organomegaly. MUSCULOSKELETAL: No joint swelling or deformity. EXTREMITIES: No cyanosis, clubbing, or pedal edema. NEUROLOGICAL: Gross neurological examination did not reveal any focal deficits. SKIN: No rash - Labs CBC & Chem 7: 05/08/19 04:26 05/08/19 08:40 Labs: Abnormal Lab Results - Last 24 Hours (Table) 05/07/19 05/07/19 05/07/19 Range/Units 11:47 16:52 20:17 WBC (3.8-10.6) k/uL RBC (3.80-5.40) m/uL Hgb (11.4-16.0) gm/dL Hct (34.0-46.0) % RDW (11.5-15.5) % Plt Count (150-450) k/uL Lymphocytes # (Manual) (1.0-4.8) k/uL Potassium (3.5-5.1) mmol/L Carbon Dioxide (22-30) mmol/L BUN (7-17) mg/dL Creatinine (0.52-1.04) mg/dL Glucose (74-99) mg/dL POC Glucose (mg/dL) 183 H 218 H 208 H (75-99) mg/dL Uric Acid (3.7-7.4) mg/dL Calcium (8.4-10.2) mg/dL Total Bilirubin (0.2-1.3) mg/dL AST (14-36) U/L Total Protein (6.3-8.2) g/dL Albumin (3.5-5.0) g/dL Crossmatch 05/08/19 05/08/19 05/08/19 Range/Units 04:26 04:26 06:54 WBC 21.0 H (3.8-10.6) k/uL RBC 2.10 L (3.80-5.40) m/uL Hgb 6.8 L* (11.4-16.0) gm/dL Hct 20.8 L (34.0-46.0) % RDW 17.9 H (11.5-15.5) % Plt Count 6 L* (150-450) k/uL Lymphocytes # (Manual) 21.00 H (1.0-4.8) k/uL Potassium (3.5-5.1) mmol/L Carbon Dioxide 31 H (22-30) mmol/L BUN 22 H (7-17) mg/dL Creatinine 0.38 L (0.52-1.04) mg/dL Glucose 181 H (74-99) mg/dL POC Glucose (mg/dL) 210 H (75-99) mg/dL Uric Acid 1.7 L (3.7-7.4) mg/dL Calcium 6.6 L (8.4-10.2) mg/dL Total Bilirubin 1.4 H (0.2-1.3) mg/dL AST 10 L (14-36) U/L Total Protein 5.1 L (6.3-8.2) g/dL Albumin 3.0 L (3.5-5.0) g/dL Crossmatch 05/08/19 05/08/19 Range/Units 08:35 08:40 WBC (3.8-10.6) k/uL RBC (3.80-5.40) m/uL Hgb (11.4-16.0) gm/dL Hct (34.0-46.0) % RDW (11.5-15.5) % Plt Count (150-450) k/uL Lymphocytes # (Manual) (1.0-4.8) k/uL Potassium 3.4 L (3.5-5.1) mmol/L Carbon Dioxide (22-30) mmol/L BUN (7-17) mg/dL Creatinine (0.52-1.04) mg/dL Glucose (74-99) mg/dL POC Glucose (mg/dL) (75-99) mg/dL Uric Acid (3.7-7.4) mg/dL Calcium (8.4-10.2) mg/dL Total Bilirubin (0.2-1.3) mg/dL AST (14-36) U/L Total Protein (6.3-8.2) g/dL Albumin (3.5-5.0) g/dL Crossmatch See Detail Microbiology - Last 24 Hours (Table) 05/02/19 22:44 Blood Culture - Preliminary Blood No Growth after 120 hours 05/02/19 12:45 Blood Culture - Preliminary Blood No Growth after 120 hours 05/01/19 10:02 Blood Culture - Final Blood No Growth after 144 hours Assessment and Plan Assessment: Acute hypoxic respiratory failure secondary to acute lung injury related to blood/platelet transfusion versus pneumonia. CHF is less likely Anemia and thrombocytopenia and neutropenia secondary to CLL Petechial rash secondary to thrombocytopenia. CLL History of breast cancer in 2013 status post chemo/radiation and surgery. Currently on anastrozole Hypertension Hyperlipidemia Osteoarthritis Previous history of smoking DVT prophylaxis with SCDs Plan: This is a pleasant 73 years old female who presents with anemia, thrombocytopenia and rash, eventually developed respiratory distress and acute lung injury versus pneumonia. Continue with antibiotics. Continue with stero ids. Continue with Lasix. Patient on Protonix. Follow-up with hematology/oncology team recommendation. Patient is on Rituxan. Pulmonary critical team are following the patient closely. Platelets and blood transfusion as indicated. Monitor for signs of bleeding. Labs and medication were reviewed.. Continue same treatment. Continue with symptomatic treatment. Resume home medication. Monitor lytes and vitals. DVT and GI prophylaxis. Further recommendations of the clinical course of the patient DVT prophylaxis: No anticoagulation in view of severe thrombocytopenia GI Prophylaxis: Protonix Prognosis is guarded
[2019-05-08] MEDS: POTASSIUM CHLORIDE ER 20 MEQ TAB.ER PO SCH ×2 (11:06→12:38)
--- NOTE | 2019-05-08 11:10 | PN ---
PROGRESS NOTE A 73-year-old lady that is in the ICU with severe thrombocytopenia and respiratory failure. She is looking better, still requiring platelet transfusion and she is receiving IV Lasix. PHYSICAL EXAM: Comfortable at rest. Blood pressure is elevated at 150/68, respiratory rate is 18. Chest exam reveals good air entry bilaterally. Heart exam reveals first and second heart sounds. No gallop. No murmur. Abdomen is soft. Exam of extremities did not reveal edema. Peripheral pulses are felt. ASSESSMENT: 1. Chronic diastolic heart failure. 2. Severe thrombocytopenia. 3. Respiratory failure. PLAN: Patient will continue with the IV Lasix, Lipitor, Norvasc. MMODL / IJN: [id number] /
[2019-05-08 12:05] LABS: Glucose,Whole Blood 237 mg/dL (75-99)
--- NOTE | 2019-05-08 13:28 | P.PN ---
Subjective Progress Note Date: 05/08/19 On 05/08/2019 the patient is improved considerably in terms of her oxygenation. She is currently on 12 L of oxygen nasal cannula her pulse ox is 97%. Less short of breath compared to yesterday. No significant cough or sputum production. No fever. Her platelet count remains low at 6000 and this is despite daily platelet transfusion. The patient has no chest pain. No fever or chills. She is on broad-spectrum antibiotic coverage. She remains on IV Solu- Medrol. No altered mentation. No other significant events overnight. She completed the RITUXAN treatment yesterday without any complications or side effects. Objective - Vital Signs Vital signs: Vital Signs Temp 97.8 F 05/08/19 12:15 Pulse 75 05/08/19 12:15 Resp 23 05/08/19 12:15 BP 141/101 05/08/19 12:15 Pulse Ox 97 05/08/19 12:15 Intake & Output 05/07/19 05/08/19 05/08/19 18:59 06:59 18:59 Intake Total 3357.563 2544 524 Output Total 3785 2350 1750 Balance -2556.916 -1203 -1226 Weight 105.9 kg 103.7 kg Intake: IV 400 940 80 .9 190 240 80 Anidulafungin 100 mg In 100 Sodium Chloride 0.9% 100 ml @ 84 mls/hr IVPB DAILY [facility] Rx#:[id number] Cefepime 2 gm In Sodium 110 200 Chloride 0.9% 100 ml @ 200 mls/hr IVPB Q8H [facility] Rx#:[id number] Vancomycin 1,750 mg In 500 Sodium Chloride 0.9% 500 ml 500 ml @ 167 mls/hr IVPB Q16H [facility] Rx#: [id number] Intake, IV Titration 504.084 20 Amount Lactated Ringers 1,000 ml 20 @ 20 mls/hr IV .Q24H [facility] Rx#:[id number] riTUXimab 750 mg In 504.084 Sodium Chloride 0.9% 500 ml 500 ml @ Titrate IV . Q0M Rx#:[id number] Oral 118 Blood Product 206 207 424 Platelet Irr Pheresis 217 Acda1 Unit [id number] Platelet Pheresis Acda2 0 207 Unit [id number] Platelet Pheresis Acda2 206 Unit [id number] As-1 Unit 0 [id number] Output: Urine 0552 3870 1750 Other: Voiding Method Indwelling Catheter Indwelling Catheter - Exam Gen. appearance the patient is calm and comfortable no acute distress and she is using a OXYGEN AT 12 L PER MINUTE NASAL CANNULA Head exam was generally normal. There was no scleral icterus or corneal arcus. Mucous membranes were moist. Neck was supple and without jugular venous distension, thyromegaly, or carotid bruits. Carotids were easily palpable bilaterally. There was no adenopathy. Lungs sounds are diminished bilaterally along with crackles in the mid and lower lung finn heard throughout the lung finn bilaterally. Cardiac exam revealed the PMI to be normally situated and sized. The rhythm was regular and no extrasystoles were noted during several minutes of auscultation. The first and second heart sounds were normal and physiologic splitting of the second heart sound was noted. There were no murmurs, rubs, clicks, or gallops. Abdominal exam revealed normal bowel sounds. The abdomen was soft, non-tender, and without masses, organomegaly, or appreciable enlargement of the abdominal aorta. Examination of the extremities revealed easily palpable radial, femoral and pedal pulses. There was no cyanosis, clubbing or edema. The patient has developed some minor hematomas at the fingertips specially in the right index finger where most of the blood sugar monitoring his been done via needle sticks. Examination of the skin revealed no evidence of significant rashes, suspicious appearing nevi or other concerning lesions. Neurologically the patient is awake and alert and there is no focal neurological deficit. - Labs CBC & Chem 7: 05/08/19 04:26 05/08/19 08:40 Labs: Abnormal Lab Results - Last 24 Hours (Table) 05/07/19 05/07/19 05/08/19 Range/Units 16:52 20:17 04:26 WBC 21.0 H (3.8-10.6) k/uL RBC 2.10 L (3.80-5.40) m/uL Hgb 6.8 L* (11.4-16.0) gm/dL Hct 20.8 L (34.0-46.0) % RDW 17.9 H (11.5-15.5) % Plt Count 6 L* (150-450) k/uL Lymphocytes # (Manual) 21.00 H (1.0-4.8) k/uL Potassium (3.5-5.1) mmol/L Carbon Dioxide (22-30) mmol/L BUN (7-17) mg/dL Creatinine (0.52-1.04) mg/dL Glucose (74-99) mg/dL POC Glucose (mg/dL) 218 H 208 H (75-99) mg/dL Uric Acid (3.7-7.4) mg/dL Calcium (8.4-10.2) mg/dL Total Bilirubin (0.2-1.3) mg/dL AST (14-36) U/L Total Protein (6.3-8.2) g/dL Albumin (3.5-5.0) g/dL Crossmatch 05/08/19 05/08/19 05/08/19 Range/Units 04:26 06:54 08:35 WBC (3.8-10.6) k/uL RBC (3.80-5.40) m/uL Hgb (11.4-16.0) gm/dL Hct (34.0-46.0) % RDW (11.5-15.5) % Plt Count (150-450) k/uL Lymphocytes # (Manual) (1.0-4.8) k/uL Potassium (3.5-5.1) mmol/L Carbon Dioxide 31 H (22-30) mmol/L BUN 22 H (7-17) mg/dL Creatinine 0.38 L (0.52-1.04) mg/dL Glucose 181 H (74-99) mg/dL POC Glucose (mg/dL) 210 H (75-99) mg/dL Uric Acid 1.7 L (3.7-7.4) mg/dL Calcium 6.6 L (8.4-10.2) mg/dL Total Bilirubin 1.4 H (0.2-1.3) mg/dL AST 10 L (14-36) U/L Total Protein 5.1 L (6.3-8.2) g/dL Albumin 3.0 L (3.5-5.0) g/dL Crossmatch See Detail 05/08/19 05/08/19 Range/Units 08:40 11:53 WBC (3.8-10.6) k/uL RBC (3.80-5.40) m/uL Hgb (11.4-16.0) gm/dL Hct (34.0-46.0) % RDW (11.5-15.5) % Plt Count (150-450) k/uL Lymphocytes # (Manual) (1.0-4.8) k/uL Potassium 3.4 L (3.5-5.1) mmol/L Carbon Dioxide (22-30) mmol/L BUN (7-17) mg/dL Creatinine (0.52-1.04) mg/dL Glucose (74-99) mg/dL POC Glucose (mg/dL) 237 H (75-99) mg/dL Uric Acid (3.7-7.4) mg/dL Calcium (8.4-10.2) mg/dL Total Bilirubin (0.2-1.3) mg/dL AST (14-36) U/L Total Protein (6.3-8.2) g/dL Albumin (3.5-5.0) g/dL Crossmatch Microbiology - Last 24 Hours (Table) 05/02/19 22:44 Blood Culture - Preliminary Blood No Growth after 120 hours 05/02/19 12:45 Blood Culture - Preliminary Blood No Growth after 120 hours 05/01/19 10:02 Blood Culture - Final Blood No Growth after 144 hours Assessment and Plan Plan: 1 acute hypoxic respiratory failure secondary to a transfusion related acute lung injury versus pneumonia. The CAT scan of the chest showed extensive consolidation more so in the upper lobes and the patient is covered with broad- spectrum antibiotics for now. Cultures of been negative. Repeat chest x-ray from today shows no interval change and the patient continues to be hypoxic on the same high flow oxygen settings.. CHF or any other infectious possibilities are felt to be less likely. Cultures of been all negative and the patient continues to be on broad-spectrum antibiotics. The patient continues to be gently diuresed. On today's evaluation of 05/08/2019, the patient is clinically improved. The oxygenation is improved and the patient is currently on 12 L of oxygen by nasal cannula. He is maintaining his saturation above 90%. No chest pain. 2 CLL, with ongoing issues with pancytopenia with significant drop in the platelet count post platelet transfusion. The patient was started on Rituxan 3 pancytopenia with 99% replacement of the marrow elements with CLL, the patient's hemoglobin and platelet counts are low. Nevertheless there has been improvement in the white cell count as the patient compared to those of Rituxan 4 history of Rituxin treatment approximately 6 months ago regarding CLL 5 diastolic heart failure with an ejection fraction of 60-65% and moderate mitral regurgitation 6 breast cancer postlumpectomy followed by chemoradiation therapy and currently on Arimidex 7 obstructive sleep apnea maintained on CPAP therapy on outpatient basis 8 hypertension Plan Wean FiO2 as tolerated. Transfusion per hematology oncology. Overall pulmonary status is stable. We'll discontinue the IV Solu-Medrol and start the patient prednisone burst taper. Continue rest of the medications including the antibiotics. We'll follow.
--- NOTE | 2019-05-08 14:47 | P.PN ---
Subjective Progress Note Date: 05/08/19 Principal diagnosis: CLL with pancytopenia, breast cancer Hx, GIST Hx In follow-up today patient looks significantly better. Patient feels that showed her breathing is more comfortable, she is able to carry on more of a conversation without feeling winded, she denies fevers, bleeding, nausea, palpitations or chest pain, abdominal pain, no dysuria, Espinoza catheter is in place without complaints. Denies any pain. Objective - Vital Signs Vital signs: Vital Signs Temp 98.5 F 05/08/19 14:36 Pulse 70 05/08/19 14:36 Resp 20 05/08/19 14:36 BP 162/78 05/08/19 14:36 Pulse Ox 97 05/08/19 14:36 Intake & Output 05/07/19 05/08/19 05/08/19 18:59 06:59 18:59 Intake Total 9201.525 9808 834 Output Total 3785 2350 1750 Balance -2556.916 -1203 -916 Weight 105.9 kg 103.7 kg Intake: IV 400 940 80 .9 190 240 80 Anidulafungin 100 mg In 100 Sodium Chloride 0.9% 100 ml @ 84 mls/hr IVPB DAILY [facility] Rx#:[id number] Cefepime 2 gm In Sodium 110 200 Chloride 0.9% 100 ml @ 200 mls/hr IVPB Q8H [facility] Rx#:[id number] Vancomycin 1,750 mg In 500 Sodium Chloride 0.9% 500 ml 500 ml @ 167 mls/hr IVPB Q16H [facility] Rx#: [id number] Intake, IV Titration 504.084 20 Amount Lactated Ringers 1,000 ml 20 @ 20 mls/hr IV .Q24H [facility] Rx#:[id number] riTUXimab 750 mg In 504.084 Sodium Chloride 0.9% 500 ml 500 ml @ Titrate IV . Q0M Rx#:[id number] Oral 118 Blood Product 206 207 734 Platelet Irr Pheresis 217 Acda1 Unit [id number] Platelet Pheresis Acda2 0 207 Unit [id number] Platelet Pheresis Acda2 206 Unit [id number] Rc As-1 Unit 310 [id number] Output: Urine 3785 2350 1750 Other: Voiding Method Indwelling Catheter Indwelling Catheter - Constitutional Constitutional Comment(s): Patient has better color to her cheeks, more alert and conversational, speaking is easier, oxygen saturation is noted to drop only into the low 90 range during conversation. General appearance: Present: cooperative, no acute distress, obese - EENT Eyes: Present: anicteric sclerae, EOMI ENT: Present: hearing grossly normal, normal oropharynx - Respiratory Respiratory: bilateral: CTA - Cardiovascular Rhythm: regular Heart sounds: normal: S1, S2 Abnormal Heart Sounds: Absent: systolic murmur, diastolic murmur, rub, S3 Gallop, S4 Gallop, click, other - Peripheral edema foot Peripheral Edema: bilateral: Trace - Gastrointestinal General gastrointestinal: Present: normal bowel sounds, soft. Absent: absent bowel sounds, decreased bowel sounds, distended, hepatomegaly, hyperactive bowel sounds, organomegaly, rigid, scaphoid, splenomegaly, tenderness, umbilical hernia, ventral hernia - Integumentary Integumentary Comment(s): Pale but certainly better color in the cheeks today than yesterday - Neurologic Neurologic: Present: CNII-XII intact - Musculoskeletal Musculoskeletal: Present: generalized weakness - Psychiatric Psychiatric: Present: A&O x's 3, appropriate affect, intact judgment & insight - Labs CBC & Chem 7: 05/08/19 04:26 05/08/19 08:40 Labs: Abnormal Lab Results - Last 24 Hours (Table) 05/07/19 05/07/19 05/08/19 Range/Units 16:52 20:17 04:26 WBC 21.0 H (3.8-10.6) k/uL RBC 2.10 L (3.80-5.40) m/uL Hgb 6.8 L* (11.4-16.0) gm/dL Hct 20.8 L (34.0-46.0) % RDW 17.9 H (11.5-15.5) % Plt Count 6 L* (150-450) k/uL Lymphocytes # (Manual) 21.00 H (1.0-4.8) k/uL Potassium (3.5-5.1) mmol/L Carbon Dioxide (22-30) mmol/L BUN (7-17) mg/dL Creatinine (0.52-1.04) mg/dL Glucose (74-99) mg/dL POC Glucose (mg/dL) 218 H 208 H (75-99) mg/dL Uric Acid (3.7-7.4) mg/dL Calcium (8.4-10.2) mg/dL Total Bilirubin (0.2-1.3) mg/dL AST (14-36) U/L Total Protein (6.3-8.2) g/dL Albumin (3.5-5.0) g/dL Crossmatch 05/08/19 05/08/19 05/08/19 Range/Units 04:26 06:54 08:35 WBC (3.8-10.6) k/uL RBC (3.80-5.40) m/uL Hgb (11.4-16.0) gm/dL Hct (34.0-46.0) % RDW (11.5-15.5) % Plt Count (150-450) k/uL Lymphocytes # (Manual) (1.0-4.8) k/uL Potassium (3.5-5.1) mmol/L Carbon Dioxide 31 H (22-30) mmol/L BUN 22 H (7-17) mg/dL Creatinine 0.38 L (0.52-1.04) mg/dL Glucose 181 H (74-99) mg/dL POC Glucose (mg/dL) 210 H (75-99) mg/dL Uric Acid 1.7 L (3.7-7.4) mg/dL Calcium 6.6 L (8.4-10.2) mg/dL Total Bilirubin 1.4 H (0.2-1.3) mg/dL AST 10 L (14-36) U/L Total Protein 5.1 L (6.3-8.2) g/dL Albumin 3.0 L (3.5-5.0) g/dL Crossmatch See Detail 05/08/19 05/08/19 Range/Units 08:40 11:53 WBC (3.8-10.6) k/uL RBC (3.80-5.40) m/uL Hgb (11.4-16.0) gm/dL Hct (34.0-46.0) % RDW (11.5-15.5) % Plt Count (150-450) k/uL Lymphocytes # (Manual) (1.0-4.8) k/uL Potassium 3.4 L (3.5-5.1) mmol/L Carbon Dioxide (22-30) mmol/L BUN (7-17) mg/dL Creatinine (0.52-1.04) mg/dL Glucose (74-99) mg/dL POC Glucose (mg/dL) 237 H (75-99) mg/dL Uric Acid (3.7-7.4) mg/dL Calcium (8.4-10.2) mg/dL Total Bilirubin (0.2-1.3) mg/dL AST (14-36) U/L Total Protein (6.3-8.2) g/dL Albumin (3.5-5.0) g/dL Crossmatch Microbiology - Last 24 Hours (Table) 05/02/19 22:44 Blood Culture - Preliminary Blood No Growth after 120 hours 05/02/19 12:45 Blood Culture - Preliminary Blood No Growth after 120 hours 05/01/19 10:02 Blood Culture - Final Blood No Growth after 144 hours Assessment and Plan (1) CLL (chronic lymphocytic leukemia) Narrative/Plan: Treatment with single agent monoclonal antibody initiated due to patient' s critical condition and instability requiring ongoing hospitalization. Patient received her Rituxan dose on 05/07/2019. Patient's white blood cell count is down to 21 from the 40 range. Her absolute lymphocyte count is down to 21 from the 40 range. Labs daily Daily follow up Current Visit: Yes Status: Acute Priority: High Code(s): C91.90 - LYMPHOID LEUKEMIA, UNSPECIFIED NOT HAVING ACHIEVED REMISSION SNOMED Code(s): 19756956 (2) Pancytopenia Narrative/Plan: Persistent, felt to be related to CLL. Patient given 1 unit of single donor platelets for a platelet count of 6000 today. Transfuse for platelet <10,000 or if symptomatic. NO ASA, NSAIDs, anticoagulation, ibuprofen or motrin. Hemoglobin 6.8 today, 1 unit PRBCd WBC/ALC half of value yesterday! Positive response Current Visit: Yes Status: Acute Priority: High Code(s): D61.818 - OTHER PANCYTOPENIA SNOMED Code(s): 945599155 (3) Febrile neutropenia Current Visit: Yes Status: Resolved Priority: High Code(s): D70.9 - NEUTROPENIA, UNSPECIFIED; R50.81 - FEVER PRESENTING WITH CONDITIONS CLASSIFIED ELSEWHERE SNOMED Code(s): 990457378 (4) Breast cancer Narrative/Plan: Cont arimidex Current Visit: No Status: Chronic Priority: Low Code(s): C50.919 - MALIGNANT NEOPLASM OF UNSP SITE OF UNSPECIFIED FEMALE BREAST SNOMED Code(s): 779081122 (5) Gastrointestinal stromal neoplasm Narrative/Plan: Gleevec held for this condition, no treatment at this time Current Visit: No Status: Chronic Priority: Low Code(s): C49.A0 - GASTROINTESTINAL STROMAL TUMOR, UNSPECIFIED SITE SNOMED Code(s): 865860555 Plan: Patient was encouraged today by her white blood cell count/absolute lymphocyte count decrease. Encouraged self-care including: mouth care, handwashing, no sick visitors, activity to tolerance. Patient is managing oral intake and fluids quite well. There is no evidence to suggest tumor lysis at this time. If patient continues to improve hopefully she will be able to come out of the intensive care unit. Over the next several days, if her counts improve slightly and show evidence of stabilization, we will consider discharge and continue treatment in the outpatient setting with transfusions as needed.
[2019-05-08] MEDS: guaiFENesin-DM 100-10MG/5ML 10 ML CUP PO PRN ×2 (16:29→23:33)
[2019-05-08 16:53] LABS: Glucose,Whole Blood 221 mg/dL (75-99)
[2019-05-08] MEDS ORDERED: amLODIPine 5 MG TAB PO STA (17:22)
[2019-05-08] MEDS ORDERED: ENALAPRILAT 1.25 MG/ML 1 ML VIAL IVP PRN (17:28)
[2019-05-08] MEDS: ATORVASTATIN 40 MG TAB PO SCH (20:33)
--- NOTE | 2019-05-08 20:34 | PN ---
PROGRESS NOTE DATE OF SERVICE: 05/08/2019. REASON FOR FOLLOWUP: Pneumonia. INTERVAL HISTORY: The patient is currently afebrile. The patient has been breathing comfortably. The patient's cough has decreased in intensity, remains to be dry in nature. No chest pain. No nausea, no vomiting. No abdominal pain. No diarrhea. PHYSICAL EXAMINATION: Blood pressure 169/79 with a pulse of 80, temperature 98. She is 93% on 6 L high-flow oxygen. General description is an elderly female lying in bed in no distress. Respiratory system: Unlabored breathing with decreased breath sounds in the bases. No wheeze. Heart S1, S2. Regular rate and rhythm. Abdomen soft, no tenderness. EXTREMITIES: Some trace edema of the feet. LABS: Hemoglobin 6.1, white count 21,000. BUN of 22, creatinine 0.38. Blood cultures have been negative. She was unable to provide any sputum. Last chest x-ray completed yesterday bilateral airspace disease, correlate for pneumonia. DIAGNOSTIC IMPRESSION AND PLAN: Patient with acute respiratory distress in this patient who did have a fever with concern for pneumonia. The patient is currently broadly covered with cefepime and vancomycin. Blood cultures have been negative. Fever has resolved. Clinical suspicion for underlying fungal infection. Discontinue the Eraxis. Monitor clinical course closely. Continue supportive care. MMODL / IJN: [id number] /
[2019-05-08 20:39] LABS: Glucose,Whole Blood 129 mg/dL (75-99)
[2019-05-08] MEDS: SODIUM CHLORIDE 0.9% 500 ML 500 ML IV SCH (23:38)
[2019-05-09] MEDS: VANCOMYCIN 1,750 MG in SODIUM CHLORIDE 0.9% 500 ML 500 ML IVPB SCH ×2 (01:30→14:11)
[2019-05-09] MEDS: CEFEPIME 2 GM in SODIUM CHLORIDE 0.9% 100 ML IVPB SCH ×2 (03:39→12:28)
[2019-05-09 04:45] LABS: Anisocytosis Slight; HCT 23.8 % (34.0-46.0); HGB 7.9 gm/dL (11.4-16.0); MCH 32.5 pg (25.0-35.0); MCHC 33.4 g/dL (31.0-37.0); MCV 97.4 fL (80.0-100.0); Macrocytosis Slight; RBC 2.44 m/uL (3.80-5.40); RDW 17.4 % (11.5-15.5); WBC 11.3 k/uL (3.8-10.6)
[2019-05-09 04:54] LABS: ALT 21 U/L (9-52); AST 11 U/L (14-36); African American GFR (CKD) >90 (>60 ml/min/1.73 sqM); Albumin 3.1 g/dL (3.5-5.0); Alkaline Phosphatase 44 U/L (38-126); Anion Gap 4 mmol/L; Blood Urea Nitrogen 26 mg/dL (7-17); Calcium 6.9 mg/dL (8.4-10.2); Carbon Dioxide 35 mmol/L (22-30); Chloride 98 mmol/L (98-107); Glucose 112 mg/dL (74-99); Magnesium 1.6 mg/dL (1.6-2.3); Phosphorus 2.2 mg/dL (2.5-4.5); Sodium 137 mmol/L (137-145); Total Bilirubin 1.9 mg/dL (0.2-1.3); Total Protein 5.2 g/dL (6.3-8.2); Uric Acid 1.6 mg/dL (3.7-7.4)
[2019-05-09] MEDS ORDERED: Phosphorus Replacement Protoco 1 EACH MISC MISCELLANE PRN (04:58)
[2019-05-09] MEDS ORDERED: Magnesium Replacement Protocol 1 EACH MISC MISCELLANE PRN (05:01)
[2019-05-09] MEDS: MAGNESIUM SULFATE-D5W PMX 1 GM in DEXTROSE/WATER 1 100ML.BAG IVPB SCH ×2 (05:10→06:22)
[2019-05-09] MEDS: SODIUM PHOSPHATE 10 MMOL in SODIUM CHLORIDE 0.9% 100 ML IVPB SCH ×2 (05:15→10:45)
[2019-05-09 05:53] LABS: Platelet Count 8 k/uL (150-450)
[2019-05-09] MEDS: IPRATROPIUM-ALBUTEROL 3 ML NEB INHALATION SCH ×2 (06:57→10:57)
[2019-05-09 07:08] LABS: Glucose,Whole Blood 147 mg/dL (75-99)
[2019-05-09 07:29] LABS: Lymphocytes # (M) 11.19 k/uL (1.0-4.8); Neutrophils % (M) 1 %; Nucleated Red Blood Cells 0 /100 WBC (0-0); Total Cells Counted 100
[2019-05-09] MEDS: INSULIN ASPART (NovoLOG) 100 UNIT/ML VIAL SQ SCH ×4 (07:35→21:14)
--- NOTE | 2019-05-09 08:22 | XR ---
EXAMINATION TYPE: XR chest 2V DATE OF EXAM: 05/09/2019 COMPARISON: Prior chest x-ray 05/07/2019 HISTORY: Abnormal chest x-ray, pneumonia TECHNIQUE: Frontal and lateral views of the chest are obtained. FINDINGS: Bilateral airspace disease is again noted. Central venous catheter is stable. Heart size i s unchanged. No evident pneumothorax. Difficult to exclude pleural effusion. There are overlying card iac leads. Patient is rotated. IMPRESSION: Findings similar to prior exam. Correlate for pneumonia, pulmonary edema, ARDS not exclu ded. There may be associated effusions.
[2019-05-09] MEDS: ANIDULAFUNGIN 100 MG in SODIUM CHLORIDE 0.9% 100 ML IVPB SCH (09:04)
[2019-05-09] MEDS: predniSONE 20 MG TAB PO SCH (09:04)
[2019-05-09] MEDS: FILGRASTIM-SNDZ 480 MCG/0.8 ML SYRINGE SQ SCH (09:04)
[2019-05-09] MEDS: FUROSEMIDE 10 MG/ML 4 ML VIAL IV SCH (09:04)
[2019-05-09] MEDS: METOPROLOL TARTRATE 25 MG TAB PO SCH ×2 (09:05→21:10)
[2019-05-09] MEDS: FERROUS SULFATE 325 MG TAB PO SCH (09:05)
[2019-05-09] MEDS: amLODIPine 5 MG TAB PO SCH ×2 (09:05→21:10)
[2019-05-09] MEDS: ANASTROZOLE 1 MG TAB PO SCH (09:13)
[2019-05-09] MEDS: PANTOPRAZOLE 40 MG TABLET PO SCH ×2 (09:13→17:14)
[2019-05-09] MEDS: DOCUSATE 100 MG CAP PO SCH (09:13)
[2019-05-09] MEDS: guaiFENesin-DM 100-10MG/5ML 10 ML CUP PO PRN (10:46)
--- NOTE | 2019-05-09 11:43 | P.PN ---
Subjective Is a 73-year-old female with a known history of hypertension, hyperlipidemia and CLL and history of breast cancer in 2014 status post chemoradiation and surgery who is currently being treated for CLL with imatinab and is on follow-up with Dr. Oliva as an outpatient was sent to Hospital due to thrombocytopenia. Patient had blood workup done at oncologist office and was found have platelet count 1000. Patient says that she has been developing rash over her hands and feet since yesterday evening. Denied any complaints of nosebleed, hematemesis or melena. Hemoglobin is 8.7. Patient was sent to ER for platelet transfusion and close monitoring. Denied any complaints of chest pain currently. No nausea vomiting or diarrhea. No headache or dizziness or lightheadedness. Platelet count 3000, hemoglobin 8.7, WBC 52.6 05/06/2019 This is a pleasant 73 years old female who presents for pancytopenia and rash, she got multiple blood transfusion with resultant acute hypoxic failure secondary to transfusion-related acute lung injury versus pneumonia and she was sent to the ICU. Patient has been followed by critical care and pulmonary team as well as hematology/oncology team. Currently she is fully awake however she is on high flow cannula saturating 91% on FiO2 of 50%. Her token is limited by his dyspnea. Rest of vitals are stable. However she has severe thrombus ectopy 7, leukocytosis with 40 2.7K, hemoglobin 7.3. Creatinine 0.4. Patient remains in the ICU and treated with antibiotics and Solu-Medrol. Patient possibly will start Rituxan oncology team 05/07/2019 Patient remains in the ICU in critical condition. She is lying in bed not in respiratory distress, however she cannot finish prolonged sentences. She remains on high flow oxygen via nasal cannula with flow rate of 55 mL/M and FiO2 of 49%. Patient is afebrile. Patient still have leukocytosis of 46.6, however absolute neutrophil count is still low at 0.9. bilirubin stable at 7.3 and platelets stable at 7K. Creatinine is normal at 0.4, sugar is controlled. Uric acid is 1.8, calcium 6.5, total bilirubin is 1.8. Liver enzymes not elevated. ProBNP is trending down from 8000+ down to 6000. Patient was started on Rituxan for her CLL. Also patient got another dose of platelet transfusion with platelet count remains the same and she going to get another unit of platelet transfusion. 05/08/2019 Patient seen and examined in the ICU, she feels better and his breathing is improving. Today she can talk easier. No chest pain. Her oxygen requirements have lowered significantly down to 9 L via nasal cannula compared to high flow oxygen yesterday. She remains on Lasix 40 mg twice daily and broad-spectrum antibiotics. Also on Rituxan which was started recently. WBC is cut in half down to 21k, hemoglobin is went down to 6.8 and platelets to 6K. Her creatinine is still normal at 0.3, uric acid and calcium are low. Total bilirubin is 1.4. And sugar is controlled. 05/09/2019 Patient remains in the ICU but she is improving significantly regarding her breathing she can talk more freely 100 oxygen saturation is controlled with 4-5 L of oxygen via nasal cannula. Looks like her lung disease is improving significantly however patient remains to have pancytopenia, with doubly WBC 11.3k, with absent neutrophil count of 0.11, hemoglobin is 7.9, platelets low at 8K.Rituxan has been already started. Patient does not have signs of tumor lysis syndrome. Patient denies abdominal pain or chest pain. Patient has been followed closely by hematology oncology team. Patient most likely will be transferred out of the ICU today. Objective - Vital Signs Vital signs: Vital Signs Temp 99.4 F 05/09/19 08:46 Pulse 70 05/09/19 11:08 Resp 18 05/09/19 11:00 BP 148/72 05/09/19 11:00 Pulse Ox 98 05/09/19 11:00 Intake & Output 05/08/19 05/09/19 05/09/19 18:59 06:59 18:59 Intake Total 1308 1240 985 Output Total 3700 3730 925 Balance -5993 -7081 60 Weight 103.7 kg 99.7 kg Intake: IV 220 1240 300 .9 220 240 100 Anidulafungin 100 mg In 100 Sodium Chloride 0.9% 100 ml @ 84 mls/hr IVPB DAILY [facility] Rx#:[id number] Cefepime 2 gm In Sodium 200 Chloride 0.9% 100 ml @ 200 mls/hr IVPB Q8H [facility] Rx#:[id number] Magnesium Sulfate-D5w Pmx 200 1 gm In Dextrose/Water 1 100ml.bag @ 100 mls/hr IVPB Q1H [facility] Rx#: [id number] Sodium Phosphate 10 mmol 100 100 In Sodium Chloride 0.9% 100 ml @ 50 mls/hr IVPB Q2H [facility] Rx#:[id number] Vancomycin 1,750 mg In 500 Sodium Chloride 0.9% 500 ml 500 ml @ 167 mls/hr IVPB Q16H [facility] Rx#: [id number] Intake, IV Titration 354 Amount Lactated Ringers 1,000 ml 20 @ 20 mls/hr IV .Q24H [facility] Rx#:[id number] Vancomycin 1,750 mg In 334 Sodium Chloride 0.9% 500 ml 500 ml @ 167 mls/hr IVPB Q12H [facility] Rx#: [id number] Blood Product 734 685 Platelet Irr Pheresis 217 Acda1 Unit [id number] Platelet Pheresis Acda 685 Unit [id number] Platelet Pheresis Acda2 207 Unit [id number] Rc As-1 Unit 310 [id number] Output: Urine 3700 3730 925 Other: Voiding Method Indwelling Catheter Indwelling Catheter Indwelling Catheter - Exam GENERAL: The patient is alert and oriented x3, not in any acute distress. Well developed, well nourished. HEENT: Pupils are round and equally reacting to light. EOMI. No scleral icterus. No conjunctival pallor. Normocephalic, atraumatic. No pharyngeal erythema. No thyromegaly. CARDIOVASCULAR: S1 and S2 present. No murmurs, rubs, or gallops. -PULMONARY: bilateral harsh breath sounds with equal air entry on both sides. Scattered wheezing ABDOMEN: Soft, nontender, nondistended, normoactive bowel sounds. No palpable organomegaly. MUSCULOSKELETAL: No joint swelling or deformity. EXTREMITIES: No cyanosis, clubbing, or pedal edema. NEUROLOGICAL: Gross neurological examination did not reveal any focal deficits. SKIN: No rash - Labs CBC & Chem 7: 05/09/19 04:20 05/09/19 04:20 Labs: Abnormal Lab Results - Last 24 Hours (Table) 05/08/19 05/08/19 05/08/19 Range/Units 08:35 11:53 16:41 WBC (3.8-10.6) k/uL RBC (3.80-5.40) m/uL Hgb (11.4-16.0) gm/dL Hct (34.0-46.0) % RDW (11.5-15.5) % Plt Count (150-450) k/uL Neutrophils # (Manual) (1.3-7.7) k/uL Lymphocytes # (Manual) (1.0-4.8) k/uL Carbon Dioxide (22-30) mmol/L BUN (7-17) mg/dL Creatinine (0.52-1.04) mg/dL Glucose (74-99) mg/dL POC Glucose (mg/dL) 237 H 221 H (75-99) mg/dL Uric Acid (3.7-7.4) mg/dL Calcium (8.4-10.2) mg/dL Phosphorus (2.5-4.5) mg/dL Total Bilirubin (0.2-1.3) mg/dL AST (14-36) U/L Total Protein (6.3-8.2) g/dL Albumin (3.5-5.0) g/dL Crossmatch See Detail 05/08/19 05/09/19 05/09/19 Range/Units 20:27 04:20 04:20 WBC 11.3 H (3.8-10.6) k/uL RBC 2.44 L (3.80-5.40) m/uL Hgb 7.9 L (11.4-16.0) gm/dL Hct 23.8 L (34.0-46.0) % RDW 17.4 H (11.5-15.5) % Plt Count 8 L* (150-450) k/uL Neutrophils # (Manual) 0.11 L* (1.3-7.7) k/uL Lymphocytes # (Manual) 11.19 H (1.0-4.8) k/uL Carbon Dioxide 35 H (22-30) mmol/L BUN 26 H (7-17) mg/dL Creatinine 0.41 L (0.52-1.04) mg/dL Glucose 112 H (74-99) mg/dL POC Glucose (mg/dL) 129 H (75-99) mg/dL Uric Acid 1.6 L (3.7-7.4) mg/dL Calcium 6.9 L (8.4-10.2) mg/dL Phosphorus 2.2 L (2.5-4.5) mg/dL Total Bilirubin 1.9 H (0.2-1.3) mg/dL AST 11 L (14-36) U/L Total Protein 5.2 L (6.3-8.2) g/dL Albumin 3.1 L (3.5-5.0) g/dL Crossmatch 05/09/19 Range/Units 06:57 WBC (3.8-10.6) k/uL RBC (3.80-5.40) m/uL Hgb (11.4-16.0) gm/dL Hct (34.0-46.0) % RDW (11.5-15.5) % Plt Count (150-450) k/uL Neutrophils # (Manual) (1.3-7.7) k/uL Lymphocytes # (Manual) (1.0-4.8) k/uL Carbon Dioxide (22-30) mmol/L BUN (7-17) mg/dL Creatinine (0.52-1.04) mg/dL Glucose (74-99) mg/dL POC Glucose (mg/dL) 147 H (75-99) mg/dL Uric Acid (3.7-7.4) mg/dL Calcium (8.4-10.2) mg/dL Phosphorus (2.5-4.5) mg/dL Total Bilirubin (0.2-1.3) mg/dL AST (14-36) U/L Total Protein (6.3-8.2) g/dL Albumin (3.5-5.0) g/dL Crossmatch Microbiology - Last 24 Hours (Table) 05/02/19 22:44 Blood Culture - Final Blood No Growth after 144 hours 05/02/19 12:45 Blood Culture - Final Blood No Growth after 144 hours Assessment and Plan Assessment: Acute hypoxic respiratory failure secondary to acute lung injury related to blood/platelet transfusion versus pneumonia. CHF is less likely Anemia and thrombocytopenia and neutropenia secondary to CLL Petechial rash secondary to thrombocytopenia. CLL History of breast cancer in 2013 status post chemo/radiation and surgery. Currently on anastrozole Hypertension Hyperlipidemia Osteoarthritis Previous history of smoking DVT prophylaxis with SCDs Plan: This is a pleasant 73 years old female who presents with anemia, thrombocytopenia and rash, eventually developed respiratory distress and acute lung injury versus pneumonia. Continue with antibiotics. Continue with stero ids. Continue with Lasix. Patient on Protonix. Follow-up with hematology/oncology team recommendation. Patient is on Rituxan. Pulmonary critical team are following the patient closely. Platelets and blood transfusion as indicated. Monitor for signs of bleeding. Labs and medication were reviewed.. Continue same treatment. Continue with symptomatic treatment. Resume home medication. Monitor lytes and vitals. DVT and GI prophylaxis. Further recommendations of the clinical course of the patient DVT prophylaxis: No anticoagulation in view of severe thrombocytopenia GI Prophylaxis: Protonix Prognosis is guarded
[2019-05-09 12:07] LABS: Glucose,Whole Blood 166 mg/dL (75-99)
--- NOTE | 2019-05-09 12:08 | P.PN ---
Subjective Progress Note Date: 05/09/19 Principal diagnosis: Acute hypoxic respiratory failure secondary to contusion related acute lung injury/ARDS On 05/09/2019 patient seen in follow-up in the intensive care unit, she is awake and alert, oriented 3, no acute distress, currently down to 5 L oxygen, and her pulse ox is 96-98%, lung sounds are clear, diminished at the bases, hemodynamically stable, sinus rhythm on the monitor. No, shortness of breath, no chest pain, no cough or congestion, blood and urine cultures are negative, patient continues on combination of cefepime, Eraxis and Vancomycin for abiotic coverage, ID service is following, IV steroids have been transitioned to oral prednisone, 40 mg daily, patient continues on IV diuretics 20 mg every 12 hours, her fluid balance is negative for thousand 882 mL over the last 24 hours, volume status is improving, weight is down by 4 kg in the last 24 hours. She received 1 dose of Rituxan 2 days ago, on today's labs white blood cell count is down to 11.3, hemoglobin is 7.9, platelet count remains low at 8, patient received 5 units of pooled platelets this morning, serum sodium is 137, potassium is 4.0, chloride is 98, CO2 is 35, B1 is 26 and creatinine 0.41. chest x-ray has been reviewed showing bilateral airspace disease, no evident pneumothorax, maybe slight improvement in the appearance of a left upper lobe infiltrate. The patient is improving clinically, coming down on FiO2. Objective - Vital Signs Vital signs: Vital Signs Temp 99.4 F 05/09/19 08:46 Pulse 70 05/09/19 11:08 Resp 18 05/09/19 11:00 BP 148/72 05/09/19 11:00 Pulse Ox 98 05/09/19 11:00 Intake & Output 05/08/19 05/09/19 05/09/19 18:59 06:59 18:59 Intake Total 1308 1240 985 Output Total 9730 4460 925 Balance -2103 -3949 60 Weight 103.7 kg 99.7 kg Intake: IV 220 1240 300 .9 220 240 100 Anidulafungin 100 mg In 100 Sodium Chloride 0.9% 100 ml @ 84 mls/hr IVPB DAILY [facility] Rx#:[id number] Cefepime 2 gm In Sodium 200 Chloride 0.9% 100 ml @ 200 mls/hr IVPB Q8H [facility] Rx#:[id number] Magnesium Sulfate-D5w Pmx 200 1 gm In Dextrose/Water 1 100ml.bag @ 100 mls/hr IVPB Q1H [facility] Rx#: [id number] Sodium Phosphate 10 mmol 100 100 In Sodium Chloride 0.9% 100 ml @ 50 mls/hr IVPB Q2H [facility] Rx#:[id number] Vancomycin 1,750 mg In 500 Sodium Chloride 0.9% 500 ml 500 ml @ 167 mls/hr IVPB Q16H [facility] Rx#: [id number] Intake, IV Titration 354 Amount Lactated Ringers 1,000 ml 20 @ 20 mls/hr IV .Q24H [facility] Rx#:[id number] Vancomycin 1,750 mg In 334 Sodium Chloride 0.9% 500 ml 500 ml @ 167 mls/hr IVPB Q12H [facility] Rx#: [id number] Blood Product 734 685 Platelet Irr Pheresis 217 Acda1 Unit [id number] Platelet Pheresis Acda 685 Unit [id number] Platelet Pheresis Acda2 207 Unit [id number] Rc As-1 Unit 310 [id number] Output: Urine 3700 3730 925 Other: Voiding Method Indwelling Catheter Indwelling Catheter Indwelling Catheter - Exam GENERAL EXAM: Alert, pleasant 73-year-old white female, currently on 5 L of oxygen with a pulse ox of 96-90% comfortable in no apparent distress. HEAD: Normocephalic/atraumatic. EYES: Normal reaction of pupils, equal size. Conjunctiva pink, sclera white. NOSE: Clear with pink turbinates. THROAT: No erythema or exudates. NECK: No masses, no JVD, no thyroid enlargement, no adenopathy. CHEST: No chest wall deformity. Symmetrical expansion. Right subclavian MediPort accessed LUNGS: Equal air entry with no crackles, wheeze, rhonchi or dullness. CVS: Regular rate and rhythm, normal S1 and S2, no gallops, no murmurs, no rubs ABDOMEN: Soft, nontender. No hepatosplenomegaly, normal bowel sounds, no guarding or rigidity. EXTREMITIES: No clubbing, 1+ lower extremity edema no cyanosis, 2+ pulses and upper and lower extremities. MUSCULOSKELETAL: Muscle strength and tone normal. SPINE: No scoliosis or deformity SKIN: No rashes CENTRAL NERVOUS SYSTEM: Alert and oriented -3. No focal deficits, tone is normal in all 4 extremities. PSYCHIATRIC: Alert and oriented -3. Appropriate affect. Intact judgment and insight. - Labs CBC & Chem 7: 05/09/19 04:20 05/09/19 04:20 Labs: Abnormal Lab Results - Last 24 Hours (Table) 05/08/19 05/08/19 05/08/19 Range/Units 08:35 11:53 16:41 WBC (3.8-10.6) k/uL RBC (3.80-5.40) m/uL Hgb (11.4-16.0) gm/dL Hct (34.0-46.0) % RDW (11.5-15.5) % Plt Count (150-450) k/uL Neutrophils # (Manual) (1.3-7.7) k/uL Lymphocytes # (Manual) (1.0-4.8) k/uL Carbon Dioxide (22-30) mmol/L BUN (7-17) mg/dL Creatinine (0.52-1.04) mg/dL Glucose (74-99) mg/dL POC Glucose (mg/dL) 237 H 221 H (75-99) mg/dL Uric Acid (3.7-7.4) mg/dL Calcium (8.4-10.2) mg/dL Phosphorus (2.5-4.5) mg/dL Total Bilirubin (0.2-1.3) mg/dL AST (14-36) U/L Total Protein (6.3-8.2) g/dL Albumin (3.5-5.0) g/dL Crossmatch See Detail 05/08/19 05/09/19 05/09/19 Range/Units 20:27 04:20 04:20 WBC 11.3 H (3.8-10.6) k/uL RBC 2.44 L (3.80-5.40) m/uL Hgb 7.9 L (11.4-16.0) gm/dL Hct 23.8 L (34.0-46.0) % RDW 17.4 H (11.5-15.5) % Plt Count 8 L* (150-450) k/uL Neutrophils # (Manual) 0.11 L* (1.3-7.7) k/uL Lymphocytes # (Manual) 11.19 H (1.0-4.8) k/uL Carbon Dioxide 35 H (22-30) mmol/L BUN 26 H (7-17) mg/dL Creatinine 0.41 L (0.52-1.04) mg/dL Glucose 112 H (74-99) mg/dL POC Glucose (mg/dL) 129 H (75-99) mg/dL Uric Acid 1.6 L (3.7-7.4) mg/dL Calcium 6.9 L (8.4-10.2) mg/dL Phosphorus 2.2 L (2.5-4.5) mg/dL Total Bilirubin 1.9 H (0.2-1.3) mg/dL AST 11 L (14-36) U/L Total Protein 5.2 L (6.3-8.2) g/dL Albumin 3.1 L (3.5-5.0) g/dL Crossmatch 05/09/19 Range/Units 06:57 WBC (3.8-10.6) k/uL RBC (3.80-5.40) m/uL Hgb (11.4-16.0) gm/dL Hct (34.0-46.0) % RDW (11.5-15.5) % Plt Count (150-450) k/uL Neutrophils # (Manual) (1.3-7.7) k/uL Lymphocytes # (Manual) (1.0-4.8) k/uL Carbon Dioxide (22-30) mmol/L BUN (7-17) mg/dL Creatinine (0.52-1.04) mg/dL Glucose (74-99) mg/dL POC Glucose (mg/dL) 147 H (75-99) mg/dL Uric Acid (3.7-7.4) mg/dL Calcium (8.4-10.2) mg/dL Phosphorus (2.5-4.5) mg/dL Total Bilirubin (0.2-1.3) mg/dL AST (14-36) U/L Total Protein (6.3-8.2) g/dL Albumin (3.5-5.0) g/dL Crossmatch Microbiology - Last 24 Hours (Table) 05/02/19 22:44 Blood Culture - Final Blood No Growth after 144 hours 05/02/19 12:45 Blood Culture - Final Blood No Growth after 144 hours Assessment and Plan Plan: Assessment: #1. Acute hypoxemic respiratory failure related to possibility of bilateral pneumonia, congestive heart failure and the possibility of transfusion related acute lung injury/ARDS #2. Sepsis with the possibility of pneumonia as the source #3. Dyspnea, hypoxemia, fever related to the above #4. Severe thrombocytopenia and anemia, requiring steroids and transfusions with packed red blood cells and platelets #5. History of CLL, with treatment with Rituxan in November #6. Acute congestive heart failure with diastolic dysfunction, cardiogram showed preserved left ventricular systolic function with an EF of 60-65% #7. Troponin leak #8. Moderate mitral regurgitation, mild aortic stenosis, mild to moderate pulmonary hypertension seen on the echocardiogram from 05/01/2019 #9. History of right breast cancer, with lumpectomy and chemotherapy and radiation, patient has been on anastrozole doubt evidence of recurrence #10. Hypertension #11. Hyperlipidemia #12. Former smoker, quit smoking in 1997, smoked for 20 years #13. Severe obstructive sleep apnea, with AHI score of 35, patient is on CPAP therapy at a pressure of 11 cm of water Plan: We will decrease the Lasix down to once daily, chest x-ray has been reviewed with some improvement in the appearance of bilateral infiltrates. Clinically patient is improving, FiO2 is coming down currently at 5 L, continue to wean, encourage deep breathing and coughing. Patient has received platelets again today. No evidence of bleeding. Hemodynamically stable, continue with oral prednisone, patient is stable to transfer out of the intensive care unit to oncology. Cultures remain negative thus far, no fever or chills, will check with the ID service whether vancomycin can be discontinued I performed a history & physical examination of the patient and discussed their management with my nurse practitioner, Molly Easley. I reviewed the nurse practitioner's note and agree with the documented findings and plan of care. Lung sounds are positive for diminished breath sounds. The findings and the im pression was discussed with the patient. I attest to the documentation by the nurse practitioner. Time with Patient: Less than 30
--- NOTE | 2019-05-09 13:55 | P.PN ---
Subjective Progress Note Date: 05/09/19 Principal diagnosis: CLL She is sitting up in chair and eating, no signs of bleeding, afebrile. Unfortunetly appears to be refractory to platelets. We have ordered crossmatched for her in anticipation. Objective - Vital Signs Vital signs: Vital Signs Temp 98.9 F 05/09/19 12:00 Pulse 69 05/09/19 12:00 Resp 21 05/09/19 12:00 BP 149/68 05/09/19 12:00 Pulse Ox 96 05/09/19 12:00 Intake & Output 05/08/19 05/09/19 05/09/19 18:59 06:59 18:59 Intake Total 1308 1240 1005 Output Total 3700 3730 1325 Balance -7807 -7979 -320 Weight 103.7 kg 99.7 kg Intake: IV 220 1240 320 .9 220 240 120 Anidulafungin 100 mg In 100 Sodium Chloride 0.9% 100 ml @ 84 mls/hr IVPB DAILY [facility] Rx#:[id number] Cefepime 2 gm In Sodium 200 Chloride 0.9% 100 ml @ 200 mls/hr IVPB Q8H [facility] Rx#:[id number] Magnesium Sulfate-D5w Pmx 200 1 gm In Dextrose/Water 1 100ml.bag @ 100 mls/hr IVPB Q1H [facility] Rx#: [id number] Sodium Phosphate 10 mmol 100 100 In Sodium Chloride 0.9% 100 ml @ 50 mls/hr IVPB Q2H [facility] Rx#:[id number] Vancomycin 1,750 mg In 500 Sodium Chloride 0.9% 500 ml 500 ml @ 167 mls/hr IVPB Q16H [facility] Rx#: [id number] Intake, IV Titration 354 Amount Lactated Ringers 1,000 ml 20 @ 20 mls/hr IV .Q24H [facility] Rx#:[id number] Vancomycin 1,750 mg In 334 Sodium Chloride 0.9% 500 ml 500 ml @ 167 mls/hr IVPB Q12H [facility] Rx#: [id number] Blood Product 734 685 Platelet Irr Pheresis 217 Acda1 Unit [id number] Platelet Pheresis Acda 685 Unit [id number] Platelet Pheresis Acda2 207 Unit [id number] Rc As-1 Unit 310 [id number] Output: Urine 3700 3730 1325 Other: Voiding Method Indwelling Catheter Indwelling Catheter Indwelling Catheter - Exam Gen: alERT Bipap Head: NCNT Lungs: DIminished mild increased effort HR - Tachy Abd Obese soft Ext no edema no rash - Labs CBC & Chem 7: 05/09/19 04:20 05/09/19 04:20 Labs: Abnormal Lab Results - Last 24 Hours (Table) 05/08/19 05/08/19 05/08/19 Range/Units 08:35 16:41 20:27 WBC (3.8-10.6) k/uL RBC (3.80-5.40) m/uL Hgb (11.4-16.0) gm/dL Hct (34.0-46.0) % RDW (11.5-15.5) % Plt Count (150-450) k/uL Neutrophils # (Manual) (1.3-7.7) k/uL Lymphocytes # (Manual) (1.0-4.8) k/uL Carbon Dioxide (22-30) mmol/L BUN (7-17) mg/dL Creatinine (0.52-1.04) mg/dL Glucose (74-99) mg/dL POC Glucose (mg/dL) 221 H 129 H (75-99) mg/dL Uric Acid (3.7-7.4) mg/dL Calcium (8.4-10.2) mg/dL Phosphorus (2.5-4.5) mg/dL Total Bilirubin (0.2-1.3) mg/dL AST (14-36) U/L Total Protein (6.3-8.2) g/dL Albumin (3.5-5.0) g/dL Crossmatch See Detail 05/09/19 05/09/19 05/09/19 Range/Units 04:20 04:20 06:57 WBC 11.3 H (3.8-10.6) k/uL RBC 2.44 L (3.80-5.40) m/uL Hgb 7.9 L (11.4-16.0) gm/dL Hct 23.8 L (34.0-46.0) % RDW 17.4 H (11.5-15.5) % Plt Count 8 L* (150-450) k/uL Neutrophils # (Manual) 0.11 L* (1.3-7.7) k/uL Lymphocytes # (Manual) 11.19 H (1.0-4.8) k/uL Carbon Dioxide 35 H (22-30) mmol/L BUN 26 H (7-17) mg/dL Creatinine 0.41 L (0.52-1.04) mg/dL Glucose 112 H (74-99) mg/dL POC Glucose (mg/dL) 147 H (75-99) mg/dL Uric Acid 1.6 L (3.7-7.4) mg/dL Calcium 6.9 L (8.4-10.2) mg/dL Phosphorus 2.2 L (2.5-4.5) mg/dL Total Bilirubin 1.9 H (0.2-1.3) mg/dL AST 11 L (14-36) U/L Total Protein 5.2 L (6.3-8.2) g/dL Albumin 3.1 L (3.5-5.0) g/dL Crossmatch 05/09/19 Range/Units 11:55 WBC (3.8-10.6) k/uL RBC (3.80-5.40) m/uL Hgb (11.4-16.0) gm/dL Hct (34.0-46.0) % RDW (11.5-15.5) % Plt Count (150-450) k/uL Neutrophils # (Manual) (1.3-7.7) k/uL Lymphocytes # (Manual) (1.0-4.8) k/uL Carbon Dioxide (22-30) mmol/L BUN (7-17) mg/dL Creatinine (0.52-1.04) mg/dL Glucose (74-99) mg/dL POC Glucose (mg/dL) 166 H (75-99) mg/dL Uric Acid (3.7-7.4) mg/dL Calcium (8.4-10.2) mg/dL Phosphorus (2.5-4.5) mg/dL Total Bilirubin (0.2-1.3) mg/dL AST (14-36) U/L Total Protein (6.3-8.2) g/dL Albumin (3.5-5.0) g/dL Crossmatch Microbiology - Last 24 Hours (Table) 05/02/19 22:44 Blood Culture - Final Blood No Growth after 144 hours 05/02/19 12:45 Blood Culture - Final Blood No Growth after 144 hours Assessment and Plan Plan: Assessment and Recommendations: CLL - Treatment with single agent monoclonal antibody (Rituxan) initiated inpatient on 05/07/19 - due to patient' s critical condition and instability requiring ongoing hospitalization. - Patient's total white blood cell count is down to 11 from the 40 range. Her absolute lymphocyte count iis responding as well - Monitor CBC with differential and CMP, Uric acid, LDH, Coags Labs daily - Daily follow up Pancytopenia: Neutropenia - Febrile neutropenia resolved - Persistent, felt to be related to CLL. - Patient given 1 unit of single donor platelets for a platelet count of 8K today. Transfuse for platelet <10,000 or if symptomatic. - NO ASA, NSAIDs, anticoagulation, ibuprofen or motrin. - Hemoglobin 7.9 today, No transfusion required today - Total WBC trending down indicating positive response, remains neutropenic - Zarxio continued. - Afebrile, ID is following SIRS/Sepsis: - ID Following and Broad Spectrum Coverage Acute Hypoxic Respiratory Failure: Improved - Pulm and ICU evaluation - Likely secondary CLL versus sepsis versus other - ID is following Hx: Breast Cancer: - Continue on Arimidex. 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 - Continue daily aggressive supportive care and monitor of vitals and bloodwork - Transfusion support PRN, Irradiated please - Monitor for infections, lysis, bleeding (afebrile, no signs of TLS at this time) - Continues to improve DISPO from ICU per ICU but hopefully over weekend if improvement continues - Increase Activity (PT/OT to follow). Physician Attestation: I ahve completed the full history and physical, I have developed the complete impression and plan and agree with above dictation by FADY hollins
[2019-05-09 17:00] LABS: Glucose,Whole Blood 238 mg/dL (75-99)
--- NOTE | 2019-05-09 19:47 | PN ---
PROGRESS NOTE DATE OF SERVICE: 05/09/2019. REASON FOR FOLLOWUP: Pneumonia. INTERVAL HISTORY: The patient is currently afebrile. Patient has been breathing comfortably. Patient's main symptom has been dry hacking cough. Unable to bring up any sputum. No nausea, vomiting. No abdominal pain. No diarrhea. PHYSICAL EXAMINATION: Blood pressure is 149/68 with a pulse of 69, temperature 97.9. She is 96% on 5 L high- flow oxygen. General description is an elderly female up in the chair in no distress. Respiratory system: Unlabored breathing with decreased breath sounds at the bases. HEART: S1, S2. Regular rate and rhythm. Abdomen soft, no tenderness. LABS: Hemoglobin 7.8, white count 11.3 with a BUN of 26, creatinine 0.41. DIAGNOSTIC IMPRESSION AND PLAN: Patient with pneumonia. So far blood cultures have been negative. She was unable to provide any sputum. As no resistant organism has been grown, we will narrow her antibiotic to cefepime only. Discontinue vancomycin and Eraxis. Monitor clinical course closely. Continue supportive care. MMODL / IJN: [id number] /
[2019-05-09] MEDS: ATORVASTATIN 40 MG TAB PO SCH (21:10)
[2019-05-09] MEDS: MAG HYDROX/AL HYDROX/SIMETH 30 ML, diphenhydrAMINE ELIXIR 75 MG, LIDOCAINE VISCOUS 30 ML PO SCH ×3 (21:10)
[2019-05-09 21:16] LABS: Glucose,Whole Blood 112 mg/dL (75-99)
[2019-05-09] MEDS: SODIUM CHLORIDE 0.9% 500 ML 500 ML IV SCH (22:49)
[2019-05-10] MEDS: CEFEPIME 2 GM in SODIUM CHLORIDE 0.9% 100 ML IVPB SCH ×2 (00:12→12:34)
[2019-05-10] MEDS ORDERED: VANCOMYCIN TROUGH DUE 1 EACH MISC MISCELLANE ONE (01:00)
[2019-05-10] MEDS: IPRATROPIUM-ALBUTEROL 3 ML NEB INHALATION PRN ×4 (07:00→21:28)
[2019-05-10 07:13] LABS: Glucose,Whole Blood 123 mg/dL (75-99)
[2019-05-10] MEDS: INSULIN ASPART (NovoLOG) 100 UNIT/ML VIAL SQ SCH ×4 (08:03→22:00)
[2019-05-10] MEDS: FERROUS SULFATE 325 MG TAB PO SCH (08:30)
[2019-05-10] MEDS: FUROSEMIDE 10 MG/ML 4 ML VIAL IV SCH (08:30)
[2019-05-10] MEDS: amLODIPine 5 MG TAB PO SCH ×2 (08:31→21:59)
[2019-05-10] MEDS: PANTOPRAZOLE 40 MG TABLET PO SCH ×2 (08:31→17:47)
[2019-05-10] MEDS: METOPROLOL TARTRATE 25 MG TAB PO SCH ×2 (08:31→21:59)
[2019-05-10] MEDS: predniSONE 20 MG TAB PO SCH (08:32)
[2019-05-10] MEDS: DOCUSATE 100 MG CAP PO SCH (08:32)
[2019-05-10] MEDS: ANASTROZOLE 1 MG TAB PO SCH (08:33)
[2019-05-10] MEDS: MAG HYDROX/AL HYDROX/SIMETH 30 ML, diphenhydrAMINE ELIXIR 75 MG, LIDOCAINE VISCOUS 30 ML PO SCH ×12 (08:33→22:00)
[2019-05-10] MEDS: FILGRASTIM-SNDZ 480 MCG/0.8 ML SYRINGE SQ SCH (10:56)
--- NOTE | 2019-05-10 12:03 | P.PN ---
Subjective Is a 73-year-old female with a known history of hypertension, hyperlipidemia and CLL and history of breast cancer in 2014 status post chemoradiation and surgery who is currently being treated for CLL with imatinab and is on follow-up with Dr. Oliva as an outpatient was sent to Hospital due to thrombocytopenia. Patient had blood workup done at oncologist office and was found have platelet count 1000. Patient says that she has been developing rash over her hands and feet since yesterday evening. Denied any complaints of nosebleed, hematemesis or melena. Hemoglobin is 8.7. Patient was sent to ER for platelet transfusion and close monitoring. Denied any complaints of chest pain currently. No nausea vomiting or diarrhea. No headache or dizziness or lightheadedness. Platelet count 3000, hemoglobin 8.7, WBC 52.6 05/06/2019 This is a pleasant 73 years old female who presents for pancytopenia and rash, she got multiple blood transfusion with resultant acute hypoxic failure secondary to transfusion-related acute lung injury versus pneumonia and she was sent to the ICU. Patient has been followed by critical care and pulmonary team as well as hematology/oncology team. Currently she is fully awake however she is on high flow cannula saturating 91% on FiO2 of 50%. Her token is limited by his dyspnea. Rest of vitals are stable. However she has severe thrombus ectopy 7, leukocytosis with 40 2.7K, hemoglobin 7.3. Creatinine 0.4. Patient remains in the ICU and treated with antibiotics and Solu-Medrol. Patient possibly will start Rituxan oncology team 05/07/2019 Patient remains in the ICU in critical condition. She is lying in bed not in respiratory distress, however she cannot finish prolonged sentences. She remains on high flow oxygen via nasal cannula with flow rate of 55 mL/M and FiO2 of 49%. Patient is afebrile. Patient still have leukocytosis of 46.6, however absolute neutrophil count is still low at 0.9. bilirubin stable at 7.3 and platelets stable at 7K. Creatinine is normal at 0.4, sugar is controlled. Uric acid is 1.8, calcium 6.5, total bilirubin is 1.8. Liver enzymes not elevated. ProBNP is trending down from 8000+ down to 6000. Patient was started on Rituxan for her CLL. Also patient got another dose of platelet transfusion with platelet count remains the same and she going to get another unit of platelet transfusion. 05/08/2019 Patient seen and examined in the ICU, she feels better and his breathing is improving. Today she can talk easier. No chest pain. Her oxygen requirements have lowered significantly down to 9 L via nasal cannula compared to high flow oxygen yesterday. She remains on Lasix 40 mg twice daily and broad-spectrum antibiotics. Also on Rituxan which was started recently. WBC is cut in half down to 21k, hemoglobin is went down to 6.8 and platelets to 6K. Her creatinine is still normal at 0.3, uric acid and calcium are low. Total bilirubin is 1.4. And sugar is controlled. 05/09/2019 Patient remains in the ICU but she is improving significantly regarding her breathing she can talk more freely 100 oxygen saturation is controlled with 4-5 L of oxygen via nasal cannula. Looks like her lung disease is improving significantly however patient remains to have pancytopenia, with doubly WBC 11.3k, with absent neutrophil count of 0.11, hemoglobin is 7.9, platelets low at 8K.Rituxan has been already started. Patient does not have signs of tumor lysis syndrome. Patient denies abdominal pain or chest pain. Patient has been followed closely by hematology oncology team. Patient most likely will be transferred out of the ICU today. 05/10/2019 Patient is transferred out of the ICU to the general medical floor today. Patient is looking better, fully awake and oriented, sitting up in chair. Her breathing is much better and, with less dyspnea and no chest pain. She saturating 91% on 4 L. improving with WBC coming down to 11.3 K and hemoglobin 7.9 as of yesterday however she still neutropenic and 0.11 and thrombocytopenic at 8. Patient still has Espinoza catheter which was inserted when she came in to the hospital. We'll keep the Espinoza catheter as she is at-risk of fall and thrombocytopenic. Incentive spirometry was encouraged. Objective - Vital Signs Vital signs: Vital Signs Temp 98.9 F 05/10/19 08:16 Pulse 76 05/10/19 11:27 Resp 20 05/10/19 08:16 BP 120/71 05/10/19 08:16 Pulse Ox 91 L 05/10/19 08:16 Intake & Output 05/09/19 05/10/19 05/10/19 18:59 06:59 18:59 Intake Total 3086 270 Output Total 2350 1125 900 Balance 222 -289 -700 Weight 99.7 kg Intake: IV 961 260 .9 260 160 Anidulafungin 100 mg In 100 Sodium Chloride 0.9% 100 ml @ 84 mls/hr IVPB DAILY [facility] Rx#:[id number] Cefepime 2 gm In Sodium 100 Chloride 0.9% 100 ml @ 200 mls/hr IVPB Q8H [facility] Rx#:[id number] Sodium Phosphate 10 mmol 100 In Sodium Chloride 0.9% 100 ml @ 50 mls/hr IVPB Q2H [facility] Rx#:[id number] Vancomycin 1,750 mg In 501 Sodium Chloride 0.9% 500 ml 500 ml @ 167 mls/hr IVPB Q12H [facility] Rx#: [id number] Oral 1440 10 Blood Product 685 Platelet Pheresis Acda 685 Unit [id number] Output: Urine 2350 1125 900 Other: Voiding Method Indwelling Catheter Indwelling Catheter - Exam GENERAL: The patient is alert and oriented x3, not in any acute distress. Well developed, well nourished. HEENT: Pupils are round and equally reacting to light. EOMI. No scleral icterus. No conjunctival pallor. Normocephalic, atraumatic. No pharyngeal erythema. No thyromegaly. CARDIOVASCULAR: S1 and S2 present. No murmurs, rubs, or gallops. -PULMONARY: bilateral harsh breath sounds with equal air entry on both sides. Scattered wheezing ABDOMEN: Soft, nontender, nondistended, normoactive bowel sounds. No palpable organomegaly. MUSCULOSKELETAL: No joint swelling or deformity. EXTREMITIES: No cyanosis, clubbing, or pedal edema. NEUROLOGICAL: Gross neurological examination did not reveal any focal deficits. SKIN: No rash - Labs CBC & Chem 7: 05/09/19 04:20 05/09/19 04:20 Labs: Abnormal Lab Results - Last 24 Hours (Table) 05/09/19 05/09/19 05/09/19 Range/Units 11:55 16:48 21:04 POC Glucose (mg/dL) 166 H 238 H 112 H (75-99) mg/dL 05/10/19 Range/Units 06:53 POC Glucose (mg/dL) 123 H (75-99) mg/dL Assessment and Plan Assessment: Acute hypoxic respiratory failure secondary to acute lung injury related to blood/platelet transfusion versus pneumonia. CHF is less likely Anemia and thrombocytopenia and neutropenia secondary to CLL Petechial rash secondary to thrombocytopenia. CLL With leukocytosis. Improving History of breast cancer in 2014 status post chemo/radiation and surgery. Currently on anastrozole Hypertension Hyperlipidemia Osteoarthritis Previous history of smoking DVT prophylaxis with SCDs Plan: This is a pleasant 73 years old female who presents with anemia, thrombocytopenia and rash, eventually developed respiratory distress and acute lung injury versus pneumonia. Patient respiratory status is improving however she still complaining of from pancytopenia.Continue with antibiotics. Continue with steroids. Discontinue Lasix. Patient on Protonix. Follow-up with hematology/oncology team recommendation. Patient is on Rituxan. Pulmonary critical team are following the patient closely. Platelets and blood transfusion as indicated. Monitor for signs of bleeding. Labs and medication were reviewed.. Continue same treatment. Continue with symptomatic treatment. Resume home medication. Monitor lytes and vitals. DVT and GI prophylaxis. Further recommendations of the clinical course of the patient DVT prophylaxis: No anticoagulation in view of severe thrombocytopenia GI Prophylaxis: Protonix Prognosis is guarded
[2019-05-10 12:16] LABS: Glucose,Whole Blood 208 mg/dL (75-99)
--- NOTE | 2019-05-10 12:50 | P.PN ---
Subjective Progress Note Date: 05/10/19 Principal diagnosis: Acute hypoxic respiratory failure secondary to contusion related acute lung injury/ARDS On 05/09/2019 patient seen in follow-up in the intensive care unit, she is awake and alert, oriented 3, no acute distress, currently down to 5 L oxygen, and her pulse ox is 96-98%, lung sounds are clear, diminished at the bases, hemodynamically stable, sinus rhythm on the monitor. No, shortness of breath, no chest pain, no cough or congestion, blood and urine cultures are negative, patient continues on combination of cefepime, Eraxis and Vancomycin for abiotic coverage, ID service is following, IV steroids have been transitioned to oral prednisone, 40 mg daily, patient continues on IV diuretics 20 mg every 12 hours, her fluid balance is negative for thousand 882 mL over the last 24 hours, volume status is improving, weight is down by 4 kg in the last 24 hours. She received 1 dose of Rituxan 2 days ago, on today's labs white blood cell count is down to 11.3, hemoglobin is 7.9, platelet count remains low at 8, patient received 5 units of pooled platelets this morning, serum sodium is 137, potassium is 4.0, chloride is 98, CO2 is 35, B1 is 26 and creatinine 0.41. chest x-ray has been reviewed showing bilateral airspace disease, no evident pneumothorax, maybe slight improvement in the appearance of a left upper lobe infiltrate. The patient is improving clinically, coming down on FiO2. On 05/10/2019 patient seen in follow-up on medical surgical floor. She is awake and alert, in no acute distress, her breathing is stable, she is currently on 4 L of oxygen. On her incentive spirometer, although her effort is suboptimal, patient is only achieving 500 on the today, lung sounds are diminished, no rhonchi, no rales. She has been transitioned to oral prednisone, all cultures remain negative, she still on IV Lasix to 40 mg IV. Today's blood work is pending, she has been started on Zarxio. Objective - Vital Signs Vital signs: Vital Signs Temp 98.9 F 05/10/19 08:16 Pulse 76 05/10/19 11:27 Resp 20 05/10/19 08:16 BP 120/71 05/10/19 08:16 Pulse Ox 91 L 05/10/19 08:16 Intake & Output 05/09/19 05/10/19 05/10/19 18:59 06:59 18:59 Intake Total 3086 270 Output Total 2350 1125 900 Balance 109 -084 -541 Weight 99.7 kg Intake: IV 961 260 .9 260 160 Anidulafungin 100 mg In 100 Sodium Chloride 0.9% 100 ml @ 84 mls/hr IVPB DAILY [facility] Rx#:[id number] Cefepime 2 gm In Sodium 100 Chloride 0.9% 100 ml @ 200 mls/hr IVPB Q8H [facility] Rx#:[id number] Sodium Phosphate 10 mmol 100 In Sodium Chloride 0.9% 100 ml @ 50 mls/hr IVPB Q2H [facility] Rx#:[id number] Vancomycin 1,750 mg In 501 Sodium Chloride 0.9% 500 ml 500 ml @ 167 mls/hr IVPB Q12H [facility] Rx#: [id number] Oral 1440 10 Blood Product 685 Platelet Pheresis Acda 685 Unit [id number] Output: Urine 2350 1125 900 Other: Voiding Method Indwelling Catheter Indwelling Catheter - Exam GENERAL EXAM: Alert, pleasant 73-year-old white female, currently on 4 L of oxygen with a pulse ox of 96-90% comfortable in no apparent distress. HEAD: Normocephalic/atraumatic. EYES: Normal reaction of pupils, equal size. Conjunctiva pink, sclera white. NOSE: Clear with pink turbinates. THROAT: No erythema or exudates. NECK: No masses, no JVD, no thyroid enlargement, no adenopathy. CHEST: No chest wall deformity. Symmetrical expansion. Right subclavian MediPort accessed LUNGS: Equal air entry with no crackles, wheeze, rhonchi or dullness. CVS: Regular rate and rhythm, normal S1 and S2, no gallops, no murmurs, no rubs ABDOMEN: Soft, nontender. No hepatosplenomegaly, normal bowel sounds, no guarding or rigidity. EXTREMITIES: No clubbing, 1+ lower extremity edema no cyanosis, 2+ pulses and upper and lower extremities. MUSCULOSKELETAL: Muscle strength and tone normal. SPINE: No scoliosis or deformity SKIN: No rashes CENTRAL NERVOUS SYSTEM: Alert and oriented -3. No focal deficits, tone is normal in all 4 extremities. PSYCHIATRIC: Alert and oriented -3. Appropriate affect. Intact judgment and insight. - Labs CBC & Chem 7: 05/09/19 04:20 05/09/19 04:20 Labs: Abnormal Lab Results - Last 24 Hours (Table) 05/09/19 05/09/19 05/10/19 Range/Units 16:48 21:04 06:53 POC Glucose (mg/dL) 238 H 112 H 123 H (75-99) mg/dL 05/10/19 Range/Units 11:45 POC Glucose (mg/dL) 208 H (75-99) mg/dL Assessment and Plan Plan: Assessment: #1. Acute hypoxemic respiratory failure related to possibility of bilateral pneumonia, congestive heart failure and the possibility of transfusion related acute lung injury/ARDS #2. Sepsis with the possibility of pneumonia as the source #3. Dyspnea, hypoxemia, fever related to the above #4. Severe thrombocytopenia and anemia, requiring steroids and transfusions with packed red blood cells and platelets #5. History of CLL, with treatment with Rituxan in November #6. Acute congestive heart failure with diastolic dysfunction, cardiogram showed preserved left ventricular systolic function with an EF of 60-65% #7. Troponin leak #8. Moderate mitral regurgitation, mild aortic stenosis, mild to moderate pulmonary hypertension seen on the echocardiogram from 05/01/2019 #9. History of right breast cancer, with lumpectomy and chemotherapy and radiation, patient has been on anastrozole doubt evidence of recurrence #10. Hypertension #11. Hyperlipidemia #12. Former smoker, quit smoking in 1997, smoked for 20 years #13. Severe obstructive sleep apnea, with AHI score of 35, patient is on CPAP therapy at a pressure of 11 cm of water Plan: Continue with the current dose oral prednisone, IV Lasix, awaiting the results of today's blood work, from pulmonary perspective patient is stable, breathing stable, continue weaning FiO2, increase activity as tolerated, encourage deep breathing and coughing, follow-up with the patient on as-needed basis. I performed a history & physical examination of the patient and discussed their management with my nurse practitioner, Molly Easley. I reviewed the nurse practitioner's note and agree with the documented findings and plan of care. Lung sounds are positive for diminished breath sounds. The findings and the impression was discussed with the patient. I attest to the documentation by the nurse practitioner. Time with Patient: Less than 30
[2019-05-10 17:10] LABS: Glucose,Whole Blood 199 mg/dL (75-99)
[2019-05-10 20:19] LABS: Anisocytosis Slight; MCH 30.6 pg (25.0-35.0); MCHC 31.8 g/dL (31.0-37.0); MCV 96.3 fL (80.0-100.0); Macrocytosis Slight; Mean Platelet Volume 7.6; RBC 2.08 m/uL (3.80-5.40); RDW 16.4 % (11.5-15.5); WBC 12.9 k/uL (3.8-10.6)
[2019-05-10 20:26] LABS: Platelet Count 6 k/uL (150-450)
[2019-05-10 20:27] LABS: HGB 6.4 gm/dL (11.4-16.0)
[2019-05-10 21:57] LABS: Glucose,Whole Blood 143 mg/dL (75-99)
[2019-05-10] MEDS: ATORVASTATIN 40 MG TAB PO SCH (21:59)
[2019-05-10] MEDS: SODIUM CHLORIDE 0.9% 500 ML 500 ML IV SCH (22:02)
[2019-05-10 22:44] LABS: Nucleated Red Blood Cells 0 /100 WBC (0-0); Total Cells Counted 100
[2019-05-11] MEDS: LACTATED RINGERS 1,000 ML IV SCH ×2 (01:50→01:57)
[2019-05-11] MEDS: CEFEPIME 2 GM in SODIUM CHLORIDE 0.9% 100 ML IVPB SCH ×3 (02:10→23:50)
[2019-05-11] MEDS: MAG HYDROX/AL HYDROX/SIMETH 30 ML, diphenhydrAMINE ELIXIR 75 MG, LIDOCAINE VISCOUS 30 ML PO SCH ×9 (06:49→21:42)
[2019-05-11 07:32] LABS: Glucose,Whole Blood 136 mg/dL (75-99)
[2019-05-11 07:52] LABS: ALT 23 U/L (9-52); AST 12 U/L (14-36); African American GFR (CKD) >90 (>60 ml/min/1.73 sqM); Albumin 3.1 g/dL (3.5-5.0); Alkaline Phosphatase 50 U/L (38-126); Anion Gap 8 mmol/L; Blood Urea Nitrogen 20 mg/dL (7-17); Calcium 7.3 mg/dL (8.4-10.2); Carbon Dioxide 30 mmol/L (22-30); Chloride 100 mmol/L (98-107); Glucose 124 mg/dL (74-99); Phosphorus 2.7 mg/dL (2.5-4.5); Potassium 3.4 mmol/L (3.5-5.1); Sodium 138 mmol/L (137-145); Total Bilirubin 2.1 mg/dL (0.2-1.3); Total Protein 5.6 g/dL (6.3-8.2); Uric Acid 1.9 mg/dL (3.7-7.4)
[2019-05-11] MEDS: INSULIN ASPART (NovoLOG) 100 UNIT/ML VIAL SQ SCH ×4 (09:09→21:40)
[2019-05-11] MEDS ORDERED: Potassium Replacement Protocol 1 EACH MISC MISCELLANE PRN (09:13)
[2019-05-11] MEDS: FUROSEMIDE 10 MG/ML 4 ML VIAL IV SCH (09:21)
[2019-05-11] MEDS: FERROUS SULFATE 325 MG TAB PO SCH (09:22)
[2019-05-11] MEDS: METOPROLOL TARTRATE 25 MG TAB PO SCH ×2 (09:22→21:40)
[2019-05-11] MEDS: DOCUSATE 100 MG CAP PO SCH (09:22)
[2019-05-11] MEDS: POTASSIUM CHLORIDE ER 20 MEQ TAB.ER PO SCH ×2 (09:22→12:07)
[2019-05-11] MEDS: PANTOPRAZOLE 40 MG TABLET PO SCH ×2 (09:22→18:21)
[2019-05-11] MEDS: predniSONE 20 MG TAB PO SCH (09:22)
[2019-05-11] MEDS: amLODIPine 5 MG TAB PO SCH ×2 (09:22→21:41)
[2019-05-11 09:23] LABS: Anisocytosis Slight; HCT 21.8 % (34.0-46.0); HGB 7.2 gm/dL (11.4-16.0); MCH 32.6 pg (25.0-35.0); MCHC 33.1 g/dL (31.0-37.0); MCV 98.4 fL (80.0-100.0); Macrocytosis Slight; Mean Platelet Volume 7.2; RBC 2.22 m/uL (3.80-5.40); RDW 16.8 % (11.5-15.5); WBC 8.3 k/uL (3.8-10.6)
[2019-05-11] MEDS: FILGRASTIM-SNDZ 480 MCG/0.8 ML SYRINGE SQ SCH (09:23)
[2019-05-11] MEDS: ANASTROZOLE 1 MG TAB PO SCH (09:24)
[2019-05-11] MEDS: guaiFENesin-DM 100-10MG/5ML 10 ML CUP PO PRN ×2 (09:24→21:40)
--- NOTE | 2019-05-11 10:04 | P.PN ---
<Lisa Cooley - Last Filed: 05/11/19 13:04> Subjective Progress Note Date: 05/11/19 Principal diagnosis: CLL She is responding to platelets, transfused overnight and up this am, hemoglobin greater than 7 no transfusion needed Objective - Vital Signs Vital signs: Vital Signs Temp 100.1 F H 05/11/19 07:00 Pulse 79 05/11/19 07:00 Resp 14 05/11/19 07:00 BP 154/71 05/11/19 07:00 Pulse Ox 96 05/11/19 07:00 Intake & Output 05/10/19 05/11/19 05/11/19 18:59 06:59 18:59 Intake Total 2206 Output Total 900 1900 1200 Balance -900 306 -1200 Weight 98.9 kg Intake: Intake, IV Titration 280 Amount Cefepime 2 gm In Sodium 100 Chloride 0.9% 100 ml @ 200 mls/hr IVPB Q12H [facility] Rx#:[id number] Sodium Chloride 0.9% 500 180 ml 500 ml @ 20 mls/hr IV .Q24H [facility] Rx#:[id number] Oral 100 Blood Product 1826 Platelet Pheresis Acda 603 Unit [id number] Rc As-1 Unit 310 [id number] Output: Urine 900 1900 1200 Other: Voiding Method Indwelling Catheter Indwelling Catheter # Voids 1 # Bowel Movements 1 - Exam Gen: alERT Bipap Head: NCNT Lungs: DIminished mild increased effort HR - Tachy Abd Obese soft Ext no edema no rash - Labs CBC & Chem 7: 05/11/19 07:30 05/11/19 07:30 Labs: Abnormal Lab Results - Last 24 Hours (Table) 05/08/19 05/10/19 05/10/19 Range/Units 08:35 11:45 16:51 WBC (3.8-10.6) k/uL RBC (3.80-5.40) m/uL Hgb (11.4-16.0) gm/dL Hct (34.0-46.0) % RDW (11.5-15.5) % Plt Count (150-450) k/uL Lymphocytes # (Manual) (1.0-4.8) k/uL Potassium (3.5-5.1) mmol/L BUN (7-17) mg/dL Creatinine (0.52-1.04) mg/dL Glucose (74-99) mg/dL POC Glucose (mg/dL) 208 H 199 H (75-99) mg/dL Uric Acid (3.7-7.4) mg/dL Calcium (8.4-10.2) mg/dL Total Bilirubin (0.2-1.3) mg/dL AST (14-36) U/L Total Protein (6.3-8.2) g/dL Albumin (3.5-5.0) g/dL Crossmatch See Detail 05/10/19 05/10/19 05/11/19 Range/Units 19:27 21:45 07:21 WBC 12.9 H (3.8-10.6) k/uL RBC 2.08 L (3.80-5.40) m/uL Hgb 6.4 L* D (11.4-16.0) gm/dL Hct 20.0 L (34.0-46.0) % RDW 16.4 H (11.5-15.5) % Plt Count 6 L* (150-450) k/uL Lymphocytes # (Manual) 12.90 H (1.0-4.8) k/uL Potassium (3.5-5.1) mmol/L BUN (7-17) mg/dL Creatinine (0.52-1.04) mg/dL Glucose (74-99) mg/dL POC Glucose (mg/dL) 143 H 136 H (75-99) mg/dL Uric Acid (3.7-7.4) mg/dL Calcium (8.4-10.2) mg/dL Total Bilirubin (0.2-1.3) mg/dL AST (14-36) U/L Total Protein (6.3-8.2) g/dL Albumin (3.5-5.0) g/dL Crossmatch 05/11/19 05/11/19 Range/Units 07:30 07:30 WBC (3.8-10.6) k/uL RBC 2.22 L (3.80-5.40) m/uL Hgb 7.2 L (11.4-16.0) gm/dL Hct 21.8 L (34.0-46.0) % RDW 16.8 H (11.5-15.5) % Plt Count 29 L D (150-450) k/uL Lymphocytes # (Manual) (1.0-4.8) k/uL Potassium 3.4 L (3.5-5.1) mmol/L BUN 20 H (7-17) mg/dL Creatinine 0.46 L (0.52-1.04) mg/dL Glucose 124 H (74-99) mg/dL POC Glucose (mg/dL) (75-99) mg/dL Uric Acid 1.9 L (3.7-7.4) mg/dL Calcium 7.3 L (8.4-10.2) mg/dL Total Bilirubin 2.1 H (0.2-1.3) mg/dL AST 12 L (14-36) U/L Total Protein 5.6 L (6.3-8.2) g/dL Albumin 3.1 L (3.5-5.0) g/dL Crossmatch Assessment and Plan Plan: Assessment and Recommendations: CLL - Treatment with single agent monoclonal antibody (Rituxan) initiated inpatient on 05/07/19 - due to patient' s critical condition and instability requiring ongoing hospitalization. - Patient's total white blood cell count is down to 11 from the 40 range. Her absolute lymphocyte count iis responding as well - Monitor CBC with differential and CMP, Uric acid, LDH, Coags Labs daily - Daily follow up Pancytopenia: Neutropenia - Febrile neutropenia resolved - Persistent, felt to be related to CLL. - Patient given 1 unit of single donor platelets for a platelet count of 8K today. Transfuse for platelet <10,000 or if symptomatic. - NO ASA, NSAIDs, anticoagulation, ibuprofen or motrin. - Hemoglobin 7.9 today, No transfusion required today - Total WBC trending down indicating positive response, remains neutropenic - Zarxio continued. - Afebrile, ID is following SIRS/Sepsis: - ID Following and Broad Spectrum Coverage Acute Hypoxic Respiratory Failure: Improved - Pulm and ICU evaluation - Likely secondary CLL versus sepsis versus other - ID is following Hx: Breast Cancer: - Continue on Arimidex. 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 - Continue daily aggressive supportive care and monitor of vitals and bloodwork - Transfusion support PRN, Irradiated please - Monitor for infections, lysis, bleeding (afebrile, no signs of TLS at this time) - Increase Activity (PT/OT to follow). Physician Attestation: I have completed the full history and physical, I have developed the complete impression and plan and agree with above dictation by FADY hollins <Omayra Figueredo - Last Filed: 05/11/19 19:45> Objective - Vital Signs Vital signs: Vital Signs Temp 98.2 F 05/11/19 15:00 Pulse 74 05/11/19 19:34 Resp 14 05/11/19 15:00 BP 150/70 05/11/19 15:00 Pulse Ox 97 05/11/19 15:43 Intake & Output 05/11/19 05/11/19 05/12/19 06:59 18:59 06:59 Intake Total 2206 100 Output Total 1900 3800 Balance 306 -3700 Weight 98.9 kg Intake: Intake, IV Titration 280 100 Amount Cefepime 2 gm In Sodium 100 100 Chloride 0.9% 100 ml @ 200 mls/hr IVPB Q12H [facility] Rx#:[id number] Sodium Chloride 0.9% 500 180 ml 500 ml @ 20 mls/hr IV .Q24H [facility] Rx#:[id number] Oral 100 Blood Product 1826 Platelet Pheresis Acda 603 Unit [id number] Rc As-1 Unit 310 [id number] Output: Urine 1900 3800 Other: Voiding Method Indwelling Catheter Indwelling Catheter # Voids 1 # Bowel Movements 1 - Labs CBC & Chem 7: 05/11/19 07:30 05/11/19 07:30 Labs: Abnormal Lab Results - Last 24 Hours (Table) 05/08/19 05/10/19 05/10/19 Range/Units 08:35 19:27 21:45 WBC 12.9 H (3.8-10.6) k/uL RBC 2.08 L (3.80-5.40) m/uL Hgb 6.4 L* D (11.4-16.0) gm/dL Hct 20.0 L (34.0-46.0) % RDW 16.4 H (11.5-15.5) % Plt Count 6 L* (150-450) k/uL Lymphocytes # (Manual) 12.90 H (1.0-4.8) k/uL Potassium (3.5-5.1) mmol/L BUN (7-17) mg/dL Creatinine (0.52-1.04) mg/dL Glucose (74-99) mg/dL POC Glucose (mg/dL) 143 H (75-99) mg/dL Uric Acid (3.7-7.4) mg/dL Calcium (8.4-10.2) mg/dL Total Bilirubin (0.2-1.3) mg/dL AST (14-36) U/L Total Protein (6.3-8.2) g/dL Albumin (3.5-5.0) g/dL Crossmatch See Detail 05/11/19 05/11/19 05/11/19 Range/Units 07:21 07:30 07:30 WBC (3.8-10.6) k/uL RBC 2.22 L (3.80-5.40) m/uL Hgb 7.2 L (11.4-16.0) gm/dL Hct 21.8 L (34.0-46.0) % RDW 16.8 H (11.5-15.5) % Plt Count 29 L D (150-450) k/uL Lymphocytes # (Manual) 8.30 H (1.0-4.8) k/uL Potassium 3.4 L (3.5-5.1) mmol/L BUN 20 H (7-17) mg/dL Creatinine 0.46 L (0.52-1.04) mg/dL Glucose 124 H (74-99) mg/dL POC Glucose (mg/dL) 136 H (75-99) mg/dL Uric Acid 1.9 L (3.7-7.4) mg/dL Calcium 7.3 L (8.4-10.2) mg/dL Total Bilirubin 2.1 H (0.2-1.3) mg/dL AST 12 L (14-36) U/L Total Protein 5.6 L (6.3-8.2) g/dL Albumin 3.1 L (3.5-5.0) g/dL Crossmatch Assessment and Plan Plan: The patient was seen and examined by me and discussed with nurse practitioner Lisa, Agree with the assessment and plan formulated. Refractory thrombocytopenia. Requested more platelets plan for second dose of ri tuximab on Sunday. Continue treatment as planned. Omayra Figueredo M.D.
[2019-05-11 11:10] LABS: Nucleated Red Blood Cells 0 /100 WBC (0-0); Total Cells Counted 100
[2019-05-11 11:13] LABS: Platelet Count 29 k/uL (150-450)
--- NOTE | 2019-05-11 15:33 | P.PN ---
Subjective Is a 73-year-old female with a known history of hypertension, hyperlipidemia and CLL and history of breast cancer in 2014 status post chemoradiation and surgery who is currently being treated for CLL with imatinab and is on follow-up with Dr. Oliva as an outpatient was sent to Hospital due to thrombocytopenia. Patient had blood workup done at oncologist office and was found have platelet count 1000. Patient says that she has been developing rash over her hands and feet since yesterday evening. Denied any complaints of nosebleed, hematemesis or melena. Hemoglobin is 8.7. Patient was sent to ER for platelet transfusion and close monitoring. Denied any complaints of chest pain currently. No nausea vomiting or diarrhea. No headache or dizziness or lightheadedness. Platelet count 3000, hemoglobin 8.7, WBC 52.6 05/06/2019 This is a pleasant 73 years old female who presents for pancytopenia and rash, she got multiple blood transfusion with resultant acute hypoxic failure secondary to transfusion-related acute lung injury versus pneumonia and she was sent to the ICU. Patient has been followed by critical care and pulmonary team as well as hematology/oncology team. Currently she is fully awake however she is on high flow cannula saturating 91% on FiO2 of 50%. Her token is limited by his dyspnea. Rest of vitals are stable. However she has severe thrombus ectopy 7, leukocytosis with 40 2.7K, hemoglobin 7.3. Creatinine 0.4. Patient remains in the ICU and treated with antibiotics and Solu-Medrol. Patient possibly will start Rituxan oncology team 05/07/2019 Patient remains in the ICU in critical condition. She is lying in bed not in respiratory distress, however she cannot finish prolonged sentences. She remains on high flow oxygen via nasal cannula with flow rate of 55 mL/M and FiO2 of 49%. Patient is afebrile. Patient still have leukocytosis of 46.6, however absolute neutrophil count is still low at 0.9. bilirubin stable at 7.3 and platelets stable at 7K. Creatinine is normal at 0.4, sugar is controlled. Uric acid is 1.8, calcium 6.5, total bilirubin is 1.8. Liver enzymes not elevated. ProBNP is trending down from 8000+ down to 6000. Patient was started on Rituxan for her CLL. Also patient got another dose of platelet transfusion with platelet count remains the same and she going to get another unit of platelet transfusion. 05/08/2019 Patient seen and examined in the ICU, she feels better and his breathing is improving. Today she can talk easier. No chest pain. Her oxygen requirements have lowered significantly down to 9 L via nasal cannula compared to high flow oxygen yesterday. She remains on Lasix 40 mg twice daily and broad-spectrum antibiotics. Also on Rituxan which was started recently. WBC is cut in half down to 21k, hemoglobin is went down to 6.8 and platelets to 6K. Her creatinine is still normal at 0.3, uric acid and calcium are low. Total bilirubin is 1.4. And sugar is controlled. 05/09/2019 Patient remains in the ICU but she is improving significantly regarding her breathing she can talk more freely 100 oxygen saturation is controlled with 4-5 L of oxygen via nasal cannula. Looks like her lung disease is improving significantly however patient remains to have pancytopenia, with doubly WBC 11.3k, with absent neutrophil count of 0.11, hemoglobin is 7.9, platelets low at 8K.Rituxan has been already started. Patient does not have signs of tumor lysis syndrome. Patient denies abdominal pain or chest pain. Patient has been followed closely by hematology oncology team. Patient most likely will be transferred out of the ICU today. 05/10/2019 Patient is transferred out of the ICU to the general medical floor today. Patient is looking better, fully awake and oriented, sitting up in chair. Her breathing is much better and, with less dyspnea and no chest pain. She saturating 91% on 4 L. improving with WBC coming down to 11.3 K and hemoglobin 7.9 as of yesterday however she still neutropenic and 0.11 and thrombocytopenic at 8. Patient still has Espinoza catheter which was inserted when she came in to the hospital. We'll keep the Espinoza catheter as she is at-risk of fall and thrombocytopenic. Incentive spirometry was encouraged. 05/11/2019 patient is awake, her respiratory status looks the same and she saturating 96% on 4 L oxygen via NC. Her white cell count came back to normal at 8.3, hemoglobin 7.2 and platelet start improving up to 29. Potassium is 3.4 seconds stoma 0.4. No evidence of tumor lysis syndrome. Oncology/hematology team are following the patient closely. After stabilization of pulmonary status we'll keep monitoring for her thrombocytopenia and anemia to improve Objective - Vital Signs Vital signs: Vital Signs Temp 98.8 F 05/11/19 11:48 Pulse 79 05/11/19 07:00 Resp 14 05/11/19 07:00 BP 154/71 05/11/19 07:00 Pulse Ox 96 05/11/19 07:00 Intake & Output 05/10/19 05/11/19 05/11/19 18:59 06:59 18:59 Intake Total 2206 100 Output Total 900 1900 2800 Balance -900 306 -2700 Weight 98.9 kg Intake: Intake, IV Titration 280 100 Amount Cefepime 2 gm In Sodium 100 100 Chloride 0.9% 100 ml @ 200 mls/hr IVPB Q12H [facility] Rx#:[id number] Sodium Chloride 0.9% 500 180 ml 500 ml @ 20 mls/hr IV .Q24H [facility] Rx#:[id number] Oral 100 Blood Product 1826 Platelet Pheresis Acda 603 Unit [id number] Rc As-1 Unit 310 [id number] Output: Urine 900 1900 2800 Other: Voiding Method Indwelling Catheter Indwelling Catheter Indwelling Catheter # Voids 1 # Bowel Movements 1 - Exam GENERAL: The patient is alert and oriented x3, not in any acute distress. Well developed, well nourished. HEENT: Pupils are round and equally reacting to light. EOMI. No scleral icterus. No conjunctival pallor. Normocephalic, atraumatic. No pharyngeal erythema. No thyromegaly. CARDIOVASCULAR: S1 and S2 present. No murmurs, rubs, or gallops. -PULMONARY: bilateral harsh breath sounds with equal air entry on both sides. Scattered wheezing ABDOMEN: Soft, nontender, nondistended, normoactive bowel sounds. No palpable organomegaly. MUSCULOSKELETAL: No joint swelling or deformity. EXTREMITIES: No cyanosis, clubbing, or pedal edema. NEUROLOGICAL: Gross neurological examination did not reveal any focal deficits. SKIN: No rash - Labs CBC & Chem 7: 05/11/19 07:30 05/11/19 07:30 Labs: Abnormal Lab Results - Last 24 Hours (Table) 05/08/19 05/10/19 05/10/19 Range/Units 08:35 16:51 19:27 WBC 12.9 H (3.8-10.6) k/uL RBC 2.08 L (3.80-5.40) m/uL Hgb 6.4 L* D (11.4-16.0) gm/dL Hct 20.0 L (34.0-46.0) % RDW 16.4 H (11.5-15.5) % Plt Count 6 L* (150-450) k/uL Lymphocytes # (Manual) 12.90 H (1.0-4.8) k/uL Potassium (3.5-5.1) mmol/L BUN (7-17) mg/dL Creatinine (0.52-1.04) mg/dL Glucose (74-99) mg/dL POC Glucose (mg/dL) 199 H (75-99) mg/dL Uric Acid (3.7-7.4) mg/dL Calcium (8.4-10.2) mg/dL Total Bilirubin (0.2-1.3) mg/dL AST (14-36) U/L Total Protein (6.3-8.2) g/dL Albumin (3.5-5.0) g/dL Crossmatch See Detail 05/10/19 05/11/19 05/11/19 Range/Units 21:45 07:21 07:30 WBC (3.8-10.6) k/uL RBC 2.22 L (3.80-5.40) m/uL Hgb 7.2 L (11.4-16.0) gm/dL Hct 21.8 L (34.0-46.0) % RDW 16.8 H (11.5-15.5) % Plt Count 29 L D (150-450) k/uL Lymphocytes # (Manual) 8.30 H (1.0-4.8) k/uL Potassium (3.5-5.1) mmol/L BUN (7-17) mg/dL Creatinine (0.52-1.04) mg/dL Glucose (74-99) mg/dL POC Glucose (mg/dL) 143 H 136 H (75-99) mg/dL Uric Acid (3.7-7.4) mg/dL Calcium (8.4-10.2) mg/dL Total Bilirubin (0.2-1.3) mg/dL AST (14-36) U/L Total Protein (6.3-8.2) g/dL Albumin (3.5-5.0) g/dL Crossmatch 05/11/19 Range/Units 07:30 WBC (3.8-10.6) k/uL RBC (3.80-5.40) m/uL Hgb (11.4-16.0) gm/dL Hct (34.0-46.0) % RDW (11.5-15.5) % Plt Count (150-450) k/uL Lymphocytes # (Manual) (1.0-4.8) k/uL Potassium 3.4 L (3.5-5.1) mmol/L BUN 20 H (7-17) mg/dL Creatinine 0.46 L (0.52-1.04) mg/dL Glucose 124 H (74-99) mg/dL POC Glucose (mg/dL) (75-99) mg/dL Uric Acid 1.9 L (3.7-7.4) mg/dL Calcium 7.3 L (8.4-10.2) mg/dL Total Bilirubin 2.1 H (0.2-1.3) mg/dL AST 12 L (14-36) U/L Total Protein 5.6 L (6.3-8.2) g/dL Albumin 3.1 L (3.5-5.0) g/dL Crossmatch Assessment and Plan Assessment: Acute hypoxic respiratory failure secondary to acute lung injury related to bloo d/platelet transfusion versus pneumonia. CHF is less likely Anemia and thrombocytopenia and neutropenia secondary to CLL Petechial rash secondary to thrombocytopenia. CLL With leukocytosis. Improving History of breast cancer in 2014 status post chemo/radiation and surgery. Currently on anastrozole Hypertension Hyperlipidemia Osteoarthritis Previous history of smoking DVT prophylaxis with SCDs Plan: This is a pleasant 73 years old female who presents with anemia, thrombocytopenia and rash, eventually developed respiratory distress and acute lung injury versus pneumonia. Patient respiratory status is improving however she still complaining of from pancytopenia.Continue with antibiotics. Continue with steroids. Discontinue Lasix. Patient on Protonix. Follow-up with hematology/oncology team recommendation. Patient is on Rituxan. Pulmonary critical team are following the patient closely. Platelets and blood transfusion as indicated. Monitor for signs of bleeding. Labs and medication were reviewed.. Continue same treatment. Continue with symptomatic treatment. Resume home medication. Monitor lytes and vitals. DVT and GI prophylaxis. Further recommendations of the clinical course of the patient DVT prophylaxis: No anticoagulation in view of severe thrombocytopenia GI Prophylaxis: Protonix Prognosis is guarded Pending improvement of her low platelet count and anemia.
[2019-05-11] MEDS: IPRATROPIUM-ALBUTEROL 3 ML NEB INHALATION PRN ×2 (15:41→19:23)
[2019-05-11 21:21] LABS: Glucose,Whole Blood 178 mg/dL (75-99)
[2019-05-11] MEDS: ATORVASTATIN 40 MG TAB PO SCH (21:40)
[2019-05-11] MEDS: SODIUM CHLORIDE 0.9% 500 ML 500 ML IV SCH (21:42)
[2019-05-12 07:10] LABS: Glucose,Whole Blood 116 mg/dL (75-99)
[2019-05-12] MEDS: INSULIN ASPART (NovoLOG) 100 UNIT/ML VIAL SQ SCH ×4 (07:53→20:24)
[2019-05-12] MEDS: predniSONE 20 MG TAB PO SCH (08:06)
[2019-05-12] MEDS: DOCUSATE 100 MG CAP PO SCH (08:06)
[2019-05-12] MEDS: PANTOPRAZOLE 40 MG TABLET PO SCH ×2 (08:07→17:13)
[2019-05-12] MEDS: FUROSEMIDE 10 MG/ML 4 ML VIAL IV SCH (08:07)
[2019-05-12] MEDS: METOPROLOL TARTRATE 25 MG TAB PO SCH ×2 (08:07→20:24)
[2019-05-12] MEDS: amLODIPine 5 MG TAB PO SCH ×2 (08:07→20:24)
[2019-05-12] MEDS: FERROUS SULFATE 325 MG TAB PO SCH (08:07)
[2019-05-12] MEDS: MAG HYDROX/AL HYDROX/SIMETH 30 ML, diphenhydrAMINE ELIXIR 75 MG, LIDOCAINE VISCOUS 30 ML PO SCH ×9 (08:08→20:24)
[2019-05-12] MEDS: FILGRASTIM-SNDZ 480 MCG/0.8 ML SYRINGE SQ SCH ×2 (08:11→09:21)
[2019-05-12 08:25] LABS: Anisocytosis Slight; Basophils % (A) 0 %; Eosinophils % (A) 0 %; HCT 21.2 % (34.0-46.0); Lymphocytes # (A) 6.7 k/uL (1.0-4.8); Lymphocytes % (A) 97 %; MCH 32.4 pg (25.0-35.0); MCHC 33.2 g/dL (31.0-37.0); MCV 97.4 fL (80.0-100.0); Macrocytosis Slight; Monocytes % (A) 0 %; Neutrophils % (A) 1 %; RBC 2.18 m/uL (3.80-5.40); RDW 16.3 % (11.5-15.5); WBC 6.9 k/uL (3.8-10.6)
[2019-05-12 08:37] LABS: African American GFR (CKD) >90 (>60 ml/min/1.73 sqM); Anion Gap 7 mmol/L; Blood Urea Nitrogen 20 mg/dL (7-17); Calcium 7.4 mg/dL (8.4-10.2); Carbon Dioxide 28 mmol/L (22-30); Chloride 102 mmol/L (98-107); Glucose 136 mg/dL (74-99); Potassium 3.7 mmol/L (3.5-5.1); Sodium 137 mmol/L (137-145)
[2019-05-12 08:51] LABS: Platelet Count 13 k/uL (150-450)
[2019-05-12 08:52] LABS: Neutrophils # (A) 0.1 k/uL (1.3-7.7)
[2019-05-12] MEDS: ANASTROZOLE 1 MG TAB PO SCH (09:21)
[2019-05-12] MEDS: CEFEPIME 2 GM in SODIUM CHLORIDE 0.9% 100 ML IVPB SCH (11:57)
[2019-05-12 12:07] LABS: Glucose,Whole Blood 159 mg/dL (75-99)
--- NOTE | 2019-05-12 12:29 | P.PN ---
Subjective Progress Note Date: 05/12/19 Principal diagnosis: CLL Awaiting for platelet count today Objective - Vital Signs Vital signs: Vital Signs Temp 99.8 F H 05/12/19 07:25 Pulse 85 05/12/19 07:25 Resp 17 05/12/19 07:25 BP 132/67 05/12/19 07:25 Pulse Ox 96 05/12/19 07:25 Intake & Output 05/11/19 05/12/19 05/12/19 18:59 06:59 18:59 Intake Total 100 800 220 Output Total 3800 1800 1000 Balance -3700 -1000 -780 Weight 96.4 kg Intake: Intake, IV Titration 100 260 Amount Cefepime 2 gm In Sodium 100 100 Chloride 0.9% 100 ml @ 200 mls/hr IVPB Q12H [facility] Rx#:[id number] Sodium Chloride 0.9% 500 160 ml 500 ml @ 20 mls/hr IV .Q24H [facility] Rx#:[id number] Oral 540 220 Output: Urine 3800 1800 1000 Other: Voiding Method Indwelling Catheter Indwelling Catheter Indwelling Catheter - Exam Gen: alERT Bipap Head: NCNT Lungs: DIminished mild increased effort HR - Tachy Abd Obese soft Ext no edema no rash - Labs CBC & Chem 7: 05/12/19 08:00 05/12/19 08:00 Labs: Abnormal Lab Results - Last 24 Hours (Table) 05/11/19 05/11/19 05/12/19 Range/Units 07:30 21:10 06:58 RBC (3.80-5.40) m/uL Hgb (11.4-16.0) gm/dL Hct (34.0-46.0) % RDW (11.5-15.5) % Plt Count 29 L D (150-450) k/uL Lymphocytes # (Manual) 8.30 H (1.0-4.8) k/uL BUN (7-17) mg/dL Creatinine (0.52-1.04) mg/dL Glucose (74-99) mg/dL POC Glucose (mg/dL) 178 H 116 H (75-99) mg/dL Calcium (8.4-10.2) mg/dL 05/12/19 05/12/19 05/12/19 Range/Units 08:00 08:00 11:53 RBC 2.18 L (3.80-5.40) m/uL Hgb 7.0 L (11.4-16.0) gm/dL Hct 21.2 L (34.0-46.0) % RDW 16.3 H (11.5-15.5) % Plt Count (150-450) k/uL Lymphocytes # (Manual) (1.0-4.8) k/uL BUN 20 H (7-17) mg/dL Creatinine 0.51 L (0.52-1.04) mg/dL Glucose 136 H (74-99) mg/dL POC Glucose (mg/dL) 159 H (75-99) mg/dL Calcium 7.4 L (8.4-10.2) mg/dL Assessment and Plan Plan: Assessment and Recommendations: CLL - Treatment with single agent monoclonal antibody (Rituxan) initiated inpatient on 05/07/19 - due to patient' s critical condition and instability requiring ongoing hospitalization. - Patient's total white blood cell count is down to 11 from the 40 range. Her absolute lymphocyte count iis responding as well - Monitor CBC with differential and CMP, Uric acid, LDH, Coags Labs daily - Daily follow up Pancytopenia: Neutropenia - Febrile neutropenia resolved - Persistent, felt to be related to CLL. - Patient given 1 unit of single donor platelets for a platelet count of 8K today. Transfuse for platelet <10,000 or if symptomatic. - NO ASA, NSAIDs, anticoagulation, ibuprofen or motrin. - Hemoglobin 7.9 today, No transfusion required today - Total WBC trending down indicating positive response, remains neutropenic - Zarxio continued. - Afebrile, ID is following SIRS/Sepsis: - ID Following and Broad Spectrum Coverage Acute Hypoxic Respiratory Failure: Improved - Pulm and ICU evaluation - Likely secondary CLL versus sepsis versus other - ID is following Hx: Breast Cancer: - Continue on Arimidex. Gastrointestinal stromal neoplasm Gleevec held for this condition, no treatment at this time Mucocytisis: - Kools solution Plan: - Rituxan tomorrow - Likely discharge Sunday if able to keep platelets stable - Stat CBC now
--- NOTE | 2019-05-12 12:54 | P.PN ---
Subjective 73-year-old female with a known history of hypertension, hyperlipidemia and CLL and history of breast cancer in 2014 status post chemoradiation and surgery who is currently being treated for CLL with imatinab and is on follow-up with Dr. Oliva as an outpatient was sent to Hospital due to thrombocytopenia. Patient had blood workup done at oncologist office and was found have platelet count 1000. Patient says that she has been developing rash over her hands and feet since yesterday evening. Denied any complaints of nosebleed, hematemesis or melena. Hemoglobin is 8.7. Patient was sent to ER for platelet transfusion and close monitoring. Denied any complaints of chest pain currently. No nausea vomiting or diarrhea. No headache or dizziness or lightheadedness. Platelet count 3000, hemoglobin 8.7, WBC 52.6 05/06/2019 This is a pleasant 73 years old female who presents for pancytopenia and rash, she got multiple blood transfusion with resultant acute hypoxic failure secondary to transfusion-related acute lung injury versus pneumonia and she was sent to the ICU. Patient has been followed by critical care and pulmonary team as well as hematology/oncology team. Currently she is fully awake however she is on high flow cannula saturating 91% on FiO2 of 50%. Her token is limited by his dyspnea. Rest of vitals are stable. However she has severe thrombus ectopy 7, leukocytosis with 40 2.7K, hemoglobin 7.3. Creatinine 0.4. Patient remains in the ICU and treated with antibiotics and Solu-Medrol. Patient possibly will start Rituxan oncology team 05/07/2019 Patient remains in the ICU in critical condition. She is lying in bed not in respiratory distress, however she cannot finish prolonged sentences. She remains on high flow oxygen via nasal cannula with flow rate of 55 mL/M and FiO2 of 49%. Patient is afebrile. Patient still have leukocytosis of 46.6, however absolute neutrophil count is still low at 0.9. bilirubin stable at 7.3 and platelets stable at 7K. Creatinine is normal at 0.4, sugar is controlled. Uric acid is 1.8, calcium 6.5, total bilirubin is 1.8. Liver enzymes not elevated. ProBNP is trending down from 8000+ down to 6000. Patient was started on Rituxan for her CLL. Also patient got another dose of platelet transfusion with platelet count remains the same and she going to get another unit of platelet transfusion. 05/08/2019 Patient seen and examined in the ICU, she feels better and his breathing is improving. Today she can talk easier. No chest pain. Her oxygen requirements have lowered significantly down to 9 L via nasal cannula compared to high flow oxygen yesterday. She remains on Lasix 40 mg twice daily and broad-spectrum antibiotics. Also on Rituxan which was started recently. WBC is cut in half down to 21k, hemoglobin is went down to 6.8 and platelets to 6K. Her creatinine is still normal at 0.3, uric acid and calcium are low. Total bilirubin is 1.4. And sugar is controlled. 05/09/2019 Patient remains in the ICU but she is improving significantly regarding her breathing she can talk more freely 100 oxygen saturation is controlled with 4-5 L of oxygen via nasal cannula. Looks like her lung disease is improving significantly however patient remains to have pancytopenia, with doubly WBC 11.3k, with absent neutrophil count of 0.11, hemoglobin is 7.9, platelets low at 8K.Rituxan has been already started. Patient does not have signs of tumor lysis syndrome. Patient denies abdominal pain or chest pain. Patient has been followed closely by hematology oncology team. Patient most likely will be transferred out of the ICU today. 05/10/2019 Patient is transferred out of the ICU to the general medical floor today. Patient is looking better, fully awake and oriented, sitting up in chair. Her breathing is much better and, with less dyspnea and no chest pain. She saturating 91% on 4 L. improving with WBC coming down to 11.3 K and hemoglobin 7.9 as of yesterday however she still neutropenic and 0.11 and thrombocytopenic at 8. Patient still has Espinoza catheter which was inserted when she came in to the hospital. We'll keep the Espinoza catheter as she is at-risk of fall and thrombocytopenic. Incentive spirometry was encouraged. 05/11/2019 patient is awake, her respiratory status looks the same and she saturating 96% on 4 L oxygen via NC. Her white cell count came back to normal at 8.3, hemoglobin 7.2 and platelet start improving up to 29. Potassium is 3.4 seconds stoma 0.4. No evidence of tumor lysis syndrome. Oncology/hematology team are following the patient closely. After stabilization of pulmonary status we'll keep monitoring for her thrombocytopenia and anemia to improve 05/12/2019 patient respiratory status improved will try and wean off her oxygen patient is presently untreated Suboxone and patient is being treated for pneumonia transfusion related lung injury, congestive heart failure. Patient's platelets of around 40 to thousand and no evidence of bleed.hemoglobin is stable at 7 patient is a multiple transfusions of platelets as well as PRBC. Espinoza catheter will be discontinued. Patient is presently on cefepime which will be continued. physical therapy and occupational will be Counseled. Constitutional: Denied any fatigue denied any fever. Cardio vascular: denied any chest pain, palpitations Gastrointestinal denied any nausea vomiting Pulmonary: Denied any shortness of breath cough Neurologic denied any new focal deficits All inpatient medications were reviewed and appropriate changes in these medications as dictated in the interval history and assessment and plan. Objective - Vital Signs Vital signs: Vital Signs Temp 99.8 F H 05/12/19 07:25 Pulse 85 05/12/19 07:25 Resp 17 05/12/19 07:25 BP 132/67 05/12/19 07:25 Pulse Ox 96 05/12/19 07:25 Intake & Output 05/11/19 05/12/19 05/12/19 18:59 06:59 18:59 Intake Total 100 800 220 Output Total 3800 1800 1000 Balance -3700 -1000 -780 Weight 96.4 kg Intake: Intake, IV Titration 100 260 Amount Cefepime 2 gm In Sodium 100 100 Chloride 0.9% 100 ml @ 200 mls/hr IVPB Q12H [facility] Rx#:[id number] Sodium Chloride 0.9% 500 160 ml 500 ml @ 20 mls/hr IV .Q24H [facility] Rx#:[id number] Oral 540 220 Output: Urine 3800 1800 1000 Other: Voiding Method Indwelling Catheter Indwelling Catheter Indwelling Catheter - Exam PHYSICAL EXAMINATION: GENERAL: The patient is alert and oriented x3, not in any acute distress. obese HEENT: Pupils are round and equally reacting to light. EOMI. No scleral icterus. No conjunctival pallor. Normocephalic, atraumatic. No pharyngeal erythema. No thyromegaly. CARDIOVASCULAR: S1 and S2 present. No murmurs, rubs, or gallops. PULMONARY: Chest is clear to auscultation, no wheezing or crackles. ABDOMEN: Soft, nontender, nondistended, normoactive bowel sounds. No palpable organomegaly. MUSCULOSKELETAL: No joint swelling or deformity. EXTREMITIES: No cyanosis, clubbing, or pedal edema. NEUROLOGICAL: Gross neurological examination did not reveal any focal deficits. SKIN: No rashes. - Labs CBC & Chem 7: 05/12/19 08:00 05/12/19 08:00 Labs: Abnormal Lab Results - Last 24 Hours (Table) 05/11/19 05/11/19 05/12/19 Range/Units 07:30 21:10 06:58 RBC (3.80-5.40) m/uL Hgb (11.4-16.0) gm/dL Hct (34.0-46.0) % RDW (11.5-15.5) % Plt Count 29 L D (150-450) k/uL Lymphocytes # (Manual) 8.30 H (1.0-4.8) k/uL BUN (7-17) mg/dL Creatinine (0.52-1.04) mg/dL Glucose (74-99) mg/dL POC Glucose (mg/dL) 178 H 116 H (75-99) mg/dL Calcium (8.4-10.2) mg/dL 05/12/19 05/12/19 05/12/19 Range/Units 08:00 08:00 11:53 RBC 2.18 L (3.80-5.40) m/uL Hgb 7.0 L (11.4-16.0) gm/dL Hct 21.2 L (34.0-46.0) % RDW 16.3 H (11.5-15.5) % Plt Count (150-450) k/uL Lymphocytes # (Manual) (1.0-4.8) k/uL BUN 20 H (7-17) mg/dL Creatinine 0.51 L (0.52-1.04) mg/dL Glucose 136 H (74-99) mg/dL POC Glucose (mg/dL) 159 H (75-99) mg/dL Calcium 7.4 L (8.4-10.2) mg/dL Assessment and Plan Plan: Acute hypoxic respiratory failure secondary to acute lung injury related to blood/platelet transfusion , possibility of pneumoniacannot be ruled out. CHF is less likely. Patient is presently on cefepime Anemia and thrombocytopenia and neutropenia secondary to CLL, patient will be started on chemotherapy possibly tomorrow Petechial rash secondary to thrombocytopenia. CLL With leukocytosis. Improving History of breast cancer in 2013 status post chemo/radiation and surgery. Currently on anastrozole Hypertension Hyperlipidemia Osteoarthritis Previous history of smoking DVT prophylaxis with SCDs
[2019-05-12 16:55] LABS: Glucose,Whole Blood 181 mg/dL (75-99)
--- NOTE | 2019-05-12 18:20 | XR ---
EXAMINATION TYPE: XR chest 2V DATE OF EXAM: 05/12/2019 COMPARISON: 05/09/2019 HISTORY: Cough TECHNIQUE: Frontal and lateral views of the chest are obtained. FINDINGS: Heart is enlarged. There are bilateral pulmonary interstitial and alveolar infiltrates in the mid and upper lung finn. There is slight elevated left diaphragm. There is left-sided central v enous catheter with the tip in the superior vena cava. There is blunting of left costophrenic angle. IMPRESSION: Bilateral pulmonary infiltrates improved slightly compared to last exam. Left basilar pl eural reaction unchanged.
[2019-05-12 19:58] LABS: Glucose,Whole Blood 146 mg/dL (75-99)
[2019-05-12] MEDS: ATORVASTATIN 40 MG TAB PO SCH (20:24)
--- NOTE | 2019-05-12 20:24 | PN ---
PROGRESS NOTE DATE OF SERVICE: 05/12/2019 REASON FOR FOLLOWUP: 1. Pneumonia. 2. Oral thrush. INTERVAL HISTORY: The patient is currently afebrile. The patient has been breathing comfortably. She has been complaining of some oral thrush, though no worsening. No nausea. No vomiting. No abdominal pain or any diarrhea. PHYSICAL EXAMINATION: Blood pressure 132/63 with pulse of 85, temperature 99.8. She is 96% on 4 L nasal cannula. General description is an elderly female lying in bed in no distress. RESPIRATORY SYSTEM: Unlabored breathing with decreased breath sounds at the base. HEART: S1, S2. Regular rate and rhythm. ABDOMEN: Soft. No tenderness. LABS: Hemoglobin is 7 with a white count of 6.9, BUN of 20, creatinine 0.51. DIAGNOSTIC IMPRESSION AND PLAN: 1. Patient with a component of pneumonia. Sputum has been negative. Blood culture has been negative. Currently on cefepime. fever. Will repeat a chest x-ray. 2. Oral thrush. To continue with continue with supportive care. MMODL / IJN: [id number] /
[2019-05-12] MEDS: valACYclovir 500 MG TAB PO SCH (21:36)
[2019-05-12] MEDS: guaiFENesin-DM 100-10MG/5ML 10 ML CUP PO PRN (21:37)
[2019-05-12] MEDS: SODIUM CHLORIDE 0.9% 500 ML 500 ML IV SCH (22:38)
[2019-05-13] MEDS: CEFEPIME 2 GM in SODIUM CHLORIDE 0.9% 100 ML IVPB SCH ×2 (00:56→13:49)
[2019-05-13 07:14] LABS: Glucose,Whole Blood 122 mg/dL (75-99)
--- NOTE | 2019-05-13 08:47 | XR ---
EXAMINATION TYPE: XR chest 1V DATE OF EXAM: 05/13/2019 COMPARISON: 05/12/2019 HISTORY: Shortness of breath TECHNIQUE: Single frontal view of the chest is obtained. FINDINGS: Heart is enlarged. There are bilateral pulmonary interstitial and alveolar infiltrates in the mid and upper lung finn. There is slight elevated left diaphragm. There is left-sided central v enous catheter with the tip in the superior vena cava. There is blunting of left costophrenic angle. Arthropathy of the shoulders. IMPRESSION: 1. Bilateral infiltrates and small effusion are stable. Differential diagnosis includes pulmonary jermain ma versus diffuse pneumonia. Correlate clinically.
[2019-05-13] MEDS: INSULIN ASPART (NovoLOG) 100 UNIT/ML VIAL SQ SCH ×4 (09:08→20:59)
[2019-05-13] MEDS: predniSONE 20 MG TAB PO SCH (09:12)
[2019-05-13] MEDS: ANASTROZOLE 1 MG TAB PO SCH (09:12)
[2019-05-13] MEDS: valACYclovir 500 MG TAB PO SCH ×2 (09:12→21:01)
[2019-05-13] MEDS: FERROUS SULFATE 325 MG TAB PO SCH (09:12)
[2019-05-13] MEDS: METOPROLOL TARTRATE 25 MG TAB PO SCH ×2 (09:12→20:59)
[2019-05-13] MEDS: PANTOPRAZOLE 40 MG TABLET PO SCH ×2 (09:13→18:06)
[2019-05-13] MEDS: FILGRASTIM-SNDZ 480 MCG/0.8 ML SYRINGE SQ SCH (09:13)
[2019-05-13] MEDS: DOCUSATE 100 MG CAP PO SCH (09:13)
[2019-05-13] MEDS: amLODIPine 5 MG TAB PO SCH ×2 (09:13→20:59)
[2019-05-13] MEDS: MAG HYDROX/AL HYDROX/SIMETH 30 ML, diphenhydrAMINE ELIXIR 75 MG, LIDOCAINE VISCOUS 30 ML PO SCH ×9 (09:13→22:28)
[2019-05-13] MEDS: FUROSEMIDE 10 MG/ML 4 ML VIAL IV SCH (09:30)
[2019-05-13 10:03] LABS: Basophils % (A) 0 %; Eosinophils % (A) 0 %; Lymphocytes % (A) 96 %; MCHC 33.6 g/dL (31.0-37.0); MCV 95.1 fL (80.0-100.0); Mean Platelet Volume 7.2; Monocytes % (A) 0 %; Neutrophils % (A) 1 %; RBC 2.05 m/uL (3.80-5.40); RDW 15.3 % (11.5-15.5); WBC 5.2 k/uL (3.8-10.6)
[2019-05-13 10:14] LABS: ALT 26 U/L (9-52); AST 11 U/L (14-36); African American GFR (CKD) >90 (>60 ml/min/1.73 sqM); Albumin 3.2 g/dL (3.5-5.0); Alkaline Phosphatase 49 U/L (38-126); Anion Gap 10 mmol/L; Blood Urea Nitrogen 22 mg/dL (7-17); Calcium 7.4 mg/dL (8.4-10.2); Carbon Dioxide 26 mmol/L (22-30); Chloride 101 mmol/L (98-107); Glucose 117 mg/dL (74-99); Potassium 3.7 mmol/L (3.5-5.1); Sodium 137 mmol/L (137-145); Total Bilirubin 2.1 mg/dL (0.2-1.3); Total Protein 5.7 g/dL (6.3-8.2)
[2019-05-13 10:20] LABS: HCT 19.5 % (34.0-46.0); HGB 6.5 gm/dL (11.4-16.0)
[2019-05-13 10:21] LABS: Neutrophils # (A) 0.1 k/uL (1.3-7.7); Platelet Count 7 k/uL (150-450)
--- NOTE | 2019-05-13 10:49 | P.PN ---
Subjective Progress Note Date: 05/13/19 Principal diagnosis: CLL Transfuse platlets and PRBC today Irradiated PLan for Rituxan today Awaitring Crossmatched platelets Objective - Vital Signs Vital signs: Vital Signs Temp 99.1 F 05/13/19 04:50 Pulse 77 05/13/19 04:50 Resp 18 05/13/19 04:50 BP 151/71 05/13/19 04:50 Pulse Ox 93 L 05/13/19 04:50 Intake & Output 05/12/19 05/13/19 05/13/19 18:59 06:59 18:59 Intake Total 420 940 Output Total 1000 1000 Balance -580 -60 Weight 97.5 kg Intake: Intake, IV Titration 100 Amount Cefepime 2 gm In Sodium 100 Chloride 0.9% 100 ml @ 200 mls/hr IVPB Q12H [facility] Rx#:[id number] Oral 420 840 Output: Urine 1000 1000 Other: Voiding Method Indwelling Catheter Indwelling Catheter # Voids 2 - Labs CBC & Chem 7: 05/13/19 09:30 05/13/19 09:30 Labs: Abnormal Lab Results - Last 24 Hours (Table) 05/12/19 05/12/19 05/12/19 Range/Units 08:00 11:53 16:54 RBC 2.18 L (3.80-5.40) m/uL Hgb 7.0 L (11.4-16.0) gm/dL Hct 21.2 L (34.0-46.0) % RDW 16.3 H (11.5-15.5) % Plt Count 13 L* D (150-450) k/uL Neutrophils # 0.1 L* (1.3-7.7) k/uL Lymphocytes # 6.7 H (1.0-4.8) k/uL BUN (7-17) mg/dL Glucose (74-99) mg/dL POC Glucose (mg/dL) 159 H 181 H (75-99) mg/dL Calcium (8.4-10.2) mg/dL Total Bilirubin (0.2-1.3) mg/dL AST (14-36) U/L Total Protein (6.3-8.2) g/dL Albumin (3.5-5.0) g/dL 05/12/19 05/13/19 05/13/19 Range/Units 19:57 07:11 09:30 RBC 2.05 L (3.80-5.40) m/uL Hgb 6.5 L* (11.4-16.0) gm/dL Hct 19.5 L* (34.0-46.0) % RDW (11.5-15.5) % Plt Count 7 L* (150-450) k/uL Neutrophils # (1.3-7.7) k/uL Lymphocytes # (1.0-4.8) k/uL BUN (7-17) mg/dL Glucose (74-99) mg/dL POC Glucose (mg/dL) 146 H 122 H (75-99) mg/dL Calcium (8.4-10.2) mg/dL Total Bilirubin (0.2-1.3) mg/dL AST (14-36) U/L Total Protein (6.3-8.2) g/dL Albumin (3.5-5.0) g/dL 05/13/19 Range/Units 09:30 RBC (3.80-5.40) m/uL Hgb (11.4-16.0) gm/dL Hct (34.0-46.0) % RDW (11.5-15.5) % Plt Count (150-450) k/uL Neutrophils # (1.3-7.7) k/uL Lymphocytes # (1.0-4.8) k/uL BUN 22 H (7-17) mg/dL Glucose 117 H (74-99) mg/dL POC Glucose (mg/dL) (75-99) mg/dL Calcium 7.4 L (8.4-10.2) mg/dL Total Bilirubin 2.1 H (0.2-1.3) mg/dL AST 11 L (14-36) U/L Total Protein 5.7 L (6.3-8.2) g/dL Albumin 3.2 L (3.5-5.0) g/dL Assessment and Plan Plan: Assessment and Recommendations: CLL - Treatment with single agent monoclonal antibody (Rituxan) initiated inpatient on 05/07/19 - due to patient' s critical condition and instability requiring ongoing hospitalization. - Patient's total white blood cell count is down to 11 from the 40 range. Her absolute lymphocyte count iis responding as well - Monitor CBC with differential and CMP, Uric acid, LDH, Coags Labs daily - Daily follow up Pancytopenia: Neutropenia - Febrile neutropenia resolved - Persistent, felt to be related to CLL. - Patient given 1 unit of single donor platelets for a platelet count of 8K today. Transfuse for platelet <10,000 or if symptomatic. - NO ASA, NSAIDs, anticoagulation, ibuprofen or motrin. - Hemoglobin 7.9 today, No transfusion required today - Total WBC trending down indicating positive response, remains neutropenic - Zarxio continued. - Afebrile, ID is following SIRS/Sepsis: - ID Following and Broad Spectrum Coverage Acute Hypoxic Respiratory Failure: Improved - Pulm and ICU evaluation - Likely secondary CLL versus sepsis versus other - ID is following Hx: Breast Cancer: - Continue on Arimidex. 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 Would be better if we could discharge and give Bendamustine and Rituxan in office tomorrow, patsy with her cytopenias unlikely. - Plan for inpatien Rituxan 05/14/19 - Likely discharge Sunday if able to keep platelets stable - Transfusion platlets and PRBC today.
[2019-05-13 11:34] LABS: Glucose,Whole Blood 168 mg/dL (75-99)
[2019-05-13 13:52] VITALS: BMI 42.0
--- NOTE | 2019-05-13 14:18 | P.PN ---
Subjective Progress Note Date: 05/13/19 Principal diagnosis: Is a 73-year-old female that is currently being treated for CLL and thrombocytopenia and is being closely monitored. Dr. Oliva is following the patient. Infectious disease is following the patient is well. Patient is still currently on IV cefepime for pneumonia. Patient's hemoglobin today is 6.5 and platelets are 7. Patient is awaiting transfusions of platelets and packed red blood cells at this time. Patient will also be receiving Rituxan today. Romi ent was weaned off oxygen from yesterday into today and is currently maintaining oxygen saturation between 93-94% on room air. Patient denies any chest pain, shortness of breath, or palpitations at this time. Patient is currently sitting up in the recliner next to the bed in no acute distress. Patient states she is awaiting for platelets to be transfused. Patient denies any nausea or vomiting at this time. Patient's temp is 99.6F. Prognosis is guarded. Objective - Vital Signs Vital signs: Vital Signs Temp 99.6 F 05/13/19 12:04 Pulse 73 05/13/19 12:04 Resp 17 05/13/19 12:04 BP 116/67 05/13/19 12:04 Pulse Ox 93 L 05/13/19 12:04 Intake & Output 05/12/19 05/13/19 05/13/19 18:59 06:59 18:59 Intake Total 420 940 Output Total 1000 1000 Balance -580 -60 Weight 97.5 kg 97.5 kg Intake: Intake, IV Titration 100 Amount Cefepime 2 gm In Sodium 100 Chloride 0.9% 100 ml @ 200 mls/hr IVPB Q12H [facility] Rx#:[id number] Oral 420 840 Output: Urine 1000 1000 Other: Voiding Method Indwelling Catheter Indwelling Catheter Bedside Commode Incontinent # Voids 2 - Exam Gen: This is a 73-year-old female sitting up in recliner watching TV in no acute distress. Blood pressure is 116/67, pulse is 73, temp is 99.6F, respirations are 17, oxygen saturation is 93% on room air. HEENT: Head is atraumatic, normocephalic. Pupils equal, round. Sclerae is anicteric. Oral mucosa is dry and upper and lower lip are pale and dry NECK: Supple. No JVD. No lymphadenopathy. No thyromegaly. LUNGS: Clear to auscultation. No wheezes or rhonchi. No intercostal retractions. HEART: Regular rate and rhythm. No murmur. ABDOMEN: Soft. Bowel sounds are present. No masses. No tenderness. EXTREMITIES: No pedal edema. No calf tenderness. NEUROLOGICAL: Patient is awake, alert and oriented x3. Cranial nerves 2 through 12 are grossly intact. - Labs CBC & Chem 7: 05/13/19 09:30 05/13/19 09:30 Labs: Abnormal Lab Results - Last 24 Hours (Table) 05/12/19 05/12/19 05/13/19 Range/Units 16:54 19:57 07:11 RBC (3.80-5.40) m/uL Hgb (11.4-16.0) gm/dL Hct (34.0-46.0) % Plt Count (150-450) k/uL Neutrophils # (1.3-7.7) k/uL Lymphocytes # (1.0-4.8) k/uL BUN (7-17) mg/dL Glucose (74-99) mg/dL POC Glucose (mg/dL) 181 H 146 H 122 H (75-99) mg/dL Calcium (8.4-10.2) mg/dL Total Bilirubin (0.2-1.3) mg/dL AST (14-36) U/L Total Protein (6.3-8.2) g/dL Albumin (3.5-5.0) g/dL Crossmatch 05/13/19 05/13/19 05/13/19 Range/Units 09:30 09:30 11:25 RBC 2.05 L (3.80-5.40) m/uL Hgb 6.5 L* (11.4-16.0) gm/dL Hct 19.5 L* (34.0-46.0) % Plt Count 7 L* (150-450) k/uL Neutrophils # 0.1 L* (1.3-7.7) k/uL Lymphocytes # 5.0 H (1.0-4.8) k/uL BUN 22 H (7-17) mg/dL Glucose 117 H (74-99) mg/dL POC Glucose (mg/dL) (75-99) mg/dL Calcium 7.4 L (8.4-10.2) mg/dL Total Bilirubin 2.1 H (0.2-1.3) mg/dL AST 11 L (14-36) U/L Total Protein 5.7 L (6.3-8.2) g/dL Albumin 3.2 L (3.5-5.0) g/dL Crossmatch See Detail 05/13/19 Range/Units 11:26 RBC (3.80-5.40) m/uL Hgb (11.4-16.0) gm/dL Hct (34.0-46.0) % Plt Count (150-450) k/uL Neutrophils # (1.3-7.7) k/uL Lymphocytes # (1.0-4.8) k/uL BUN (7-17) mg/dL Glucose (74-99) mg/dL POC Glucose (mg/dL) 168 H (75-99) mg/dL Calcium (8.4-10.2) mg/dL Total Bilirubin (0.2-1.3) mg/dL AST (14-36) U/L Total Protein (6.3-8.2) g/dL Albumin (3.5-5.0) g/dL Crossmatch Assessment and Plan Assessment: Acute hypoxic respiratory failure secondary to acute lung injury related to blood/platelet transfusions, possibility of pneumonia, cannot be ruled out. CHF is less likely. Patient is presently on cefepime per infectious disease. Anemia and thrombocytopenia and neutropenia secondary to CLL, patient is set to have chemotherapy today. Patient is awaiting transfusion of PRBCs for hemoglobin of 6.5, and a transfusion of platelets due to her platelet count being 7 Petechial rash secondary to thrombocytopenia CLL with leukocytosis: Improving, current WBC is 5.2 History of breast cancer in 2014 status post chemo/radiation and surgery. Currently on anastrozole Hypertension Hyperlipidemia Osteoarthritis Previous history of smoking DVT prophylaxis with SCDs and ambulation. Recommendations and discussion: Recommend continuing current medication management and symptomatic treatment. Patient will be transfused with PRBCs and platelets today. Patient is awaiting to receive chemotherapy of Rituxan today as well. Oncology is following closely. Infectious disease is following as well and patient will continue IV antibiotics of cefepime for pneumonia. Guarded prognosis. Further recommendations to follow. Possible discharge in the next 24-48 hours if platelets remain stable. We'll continue to monitor labs and vital signs closely.
[2019-05-13 17:17] LABS: Glucose,Whole Blood 162 mg/dL (75-99)
--- NOTE | 2019-05-13 19:04 | PN ---
PROGRESS NOTE DATE OF SERVICE: 05/13/2019. REASON FOR FOLLOWUP: 1. Pneumonia. 2. Herpes labialis and oral thrush. INTERVAL HISTORY: The patient is currently afebrile. The patient has been mostly complaining of sores in her mouth and she did develop a lesion on her lip. The patient denies any difficulty swallowing. No chest pain. She did have some cough which has been dry in nature. No nausea. No vomiting. No abdominal pain or diarrhea. PHYSICAL EXAMINATION: Blood pressure 146/66 with a pulse of 91, temperature 99.2. She is 93% on room air. General description is an elderly female up in the bed in no distress. RESPIRATORY SYSTEM: Unlabored breathing with decreased breath sounds at the base. No wheeze. HEART: S1, S2. Regular rate and rhythm. ABDOMEN: Soft. No tenderness. LABS: Hemoglobin is 6.5, white count 5.2, BUN of 22, creatinine 0.52. DIAGNOSTIC IMPRESSION AND PLAN: 1. Patient with bilateral basilar infiltrate in this patient who did have a fever with concern for pneumonia. Blood cultures have been negative. Sputum was not provided. The patient has received more than 10 days of IV antibiotic therapy. That should be more than enough for her underlying pneumonia. Will watch the patient closely off antibiotic therapy. 2. Patient with herpes labialis. Valtrex was started yesterday; should have been at 2 grams q.12; however, would continue with current 1 gram q.12. 3. Oral thrush. Nystatin swish and swallow q.6 hours. Continue with supportive care. MMODL / IJN: [id number] /
[2019-05-13 20:42] LABS: Glucose,Whole Blood 126 mg/dL (75-99)
[2019-05-13] MEDS: ATORVASTATIN 40 MG TAB PO SCH (20:59)
[2019-05-13] MEDS: SODIUM CHLORIDE 0.9% 500 ML 500 ML IV SCH (21:01)
[2019-05-13] MEDS: guaiFENesin-DM 100-10MG/5ML 10 ML CUP PO PRN (22:28)
[2019-05-14 07:14] LABS: Glucose,Whole Blood 114 mg/dL (75-99)
[2019-05-14] MEDS: DOCUSATE 100 MG CAP PO SCH (08:42)
[2019-05-14] MEDS: amLODIPine 5 MG TAB PO SCH ×2 (08:43→20:45)
[2019-05-14] MEDS: FUROSEMIDE 10 MG/ML 4 ML VIAL IV SCH (08:43)
[2019-05-14] MEDS: predniSONE 20 MG TAB PO SCH (08:43)
[2019-05-14] MEDS: FERROUS SULFATE 325 MG TAB PO SCH (08:43)
[2019-05-14] MEDS: PANTOPRAZOLE 40 MG TABLET PO SCH ×2 (08:44→18:23)
[2019-05-14] MEDS: valACYclovir 500 MG TAB PO SCH ×2 (08:44→20:46)
[2019-05-14] MEDS: MAG HYDROX/AL HYDROX/SIMETH 30 ML, diphenhydrAMINE ELIXIR 75 MG, LIDOCAINE VISCOUS 30 ML PO SCH ×21 (08:44→20:47)
[2019-05-14] MEDS: METOPROLOL TARTRATE 25 MG TAB PO SCH ×2 (08:44→20:45)
[2019-05-14] MEDS: INSULIN ASPART (NovoLOG) 100 UNIT/ML VIAL SQ SCH ×4 (08:45→20:45)
[2019-05-14] MEDS: ANASTROZOLE 1 MG TAB PO SCH (08:46)
[2019-05-14] MEDS: FILGRASTIM-SNDZ 480 MCG/0.8 ML SYRINGE SQ SCH (08:55)
[2019-05-14] MEDS ORDERED: predniSONE 20 MG TAB PO SCH (09:00)
[2019-05-14 12:02] LABS: Glucose,Whole Blood 207 mg/dL (75-99)
[2019-05-14 12:35] LABS: HCT 20.8 % (34.0-46.0); MCH 32.1 pg (25.0-35.0); MCHC 33.4 g/dL (31.0-37.0); MCV 96.3 fL (80.0-100.0); RBC 2.16 m/uL (3.80-5.40); WBC 5.7 k/uL (3.8-10.6)
[2019-05-14 12:45] LABS: HGB 6.9 gm/dL (11.4-16.0)
[2019-05-14 12:46] LABS: Platelet Count 10 k/uL (150-450)
[2019-05-14 12:50] LABS: ALT 24 U/L (9-52); AST 11 U/L (14-36); African American GFR (CKD) >90 (>60 ml/min/1.73 sqM); Albumin 3.2 g/dL (3.5-5.0); Alkaline Phosphatase 53 U/L (38-126); Anion Gap 8 mmol/L; Blood Urea Nitrogen 26 mg/dL (7-17); Calcium 7.9 mg/dL (8.4-10.2); Carbon Dioxide 26 mmol/L (22-30); Chloride 105 mmol/L (98-107); Glucose 148 mg/dL (74-99); Potassium 3.3 mmol/L (3.5-5.1); Sodium 139 mmol/L (137-145); Total Bilirubin 2.2 mg/dL (0.2-1.3); Total Protein 5.7 g/dL (6.3-8.2)
--- NOTE | 2019-05-14 12:50 | P.PN ---
Subjective Progress Note Date: 05/14/19 Principal diagnosis: CLL Awaiting CBC today. Status post transfusions 05.13.19 Will proceed with Rituxan inpatient and add Bendamustine next week in office Objective - Vital Signs Vital signs: Vital Signs Temp 98.8 F 05/14/19 12:07 Pulse 78 05/14/19 12:07 Resp 17 05/14/19 12:07 BP 123/72 05/14/19 12:07 Pulse Ox 95 05/14/19 12:07 Intake & Output 05/13/19 05/14/19 05/14/19 18:59 06:59 18:59 Intake Total 411 550 Output Total 1700 Balance 411 -1150 Weight 97.5 kg 97 kg Intake: Intake, IV Titration 100 Amount Cefepime 2 gm In Sodium 100 Chloride 0.9% 100 ml @ 200 mls/hr IVPB Q12H [facility] Rx#:[id number] Oral 240 Blood Product 311 310 Platelet Irr Pheresis 2 311 Acda Unit [id number] Rc Pheresis As-3 Unit 0 310 [id number] Output: Urine 1700 Other: Voiding Method Bedside Commode Bedside Commode Bedside Commode Incontinent Incontinent Incontinent # Voids 1 - Exam Gen: alERT Bipap Head: NCNT Lungs: DIminished mild increased effort HR - Tachy Abd Obese soft Ext no edema no rash - Labs CBC & Chem 7: 05/14/19 10:15 05/14/19 10:15 Labs: Abnormal Lab Results - Last 24 Hours (Table) 05/13/19 05/13/19 05/13/19 Range/Units 11:25 17:12 20:41 RBC (3.80-5.40) m/uL Hgb (11.4-16.0) gm/dL Hct (34.0-46.0) % RDW (11.5-15.5) % POC Glucose (mg/dL) 162 H 126 H (75-99) mg/dL Crossmatch See Detail 05/14/19 05/14/19 05/14/19 Range/Units 07:08 10:15 11:58 RBC 2.16 L (3.80-5.40) m/uL Hgb 6.9 L* (11.4-16.0) gm/dL Hct 20.8 L (34.0-46.0) % RDW 16.0 H (11.5-15.5) % POC Glucose (mg/dL) 114 H 207 H (75-99) mg/dL Crossmatch Assessment and Plan Plan: Assessment and Recommendations: CLL - Treatment with single agent monoclonal antibody (Rituxan) initiated inpatient on 05/07/19 - due to patient' s critical condition and instability requiring ongoing hospitalization. - Patient's total white blood cell count is down to 11 from the 40 range. Her absolute lymphocyte count iis responding as well - Monitor CBC with differential and CMP, Uric acid, LDH, Coags Labs daily - Daily follow up Pancytopenia: Neutropenia - Febrile neutropenia resolved - Persistent, felt to be related to CLL. - Patient given 1 unit of single donor platelets for a platelet count of 8K today. Transfuse for platelet <10,000 or if symptomatic. - NO ASA, NSAIDs, anticoagulation, ibuprofen or motrin. - Hemoglobin 7.9 today, No transfusion required today - Total WBC trending down indicating positive response, remains neutropenic - Zarxio continued. - Afebrile, ID is following SIRS/Sepsis: - ID Following and Broad Spectrum Coverage Acute Hypoxic Respiratory Failure: Improved - Pulm and ICU evaluation - Likely secondary CLL versus sepsis versus other - ID is following Hx: Breast Cancer: - Continue on Arimidex. 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
[2019-05-14 13:05] LABS: Neutrophils % (M) 1 %
[2019-05-14 13:06] LABS: Lymphocytes # (M) 5.59 k/uL (1.0-4.8); Monocytes # (M) 0.06 k/uL (0-1.0); Nucleated Red Blood Cells 0 /100 WBC (0-0); Rouleaux Present; Total Cells Counted 100
[2019-05-14 13:07] LABS: Poikilocytosis (M) Present
--- NOTE | 2019-05-14 13:17 | PN ---
PROGRESS NOTE DATE OF SERVICE: 05/14/2019 REASON FOR FOLLOWUP: 1. Pneumonia, adequately treated. 2. Herpes labialis. 3. Oral thrush. INTERVAL HISTORY: The patient is currently afebrile. She is complaining of sores in her mouth and not get her medication. Denies any difficulty swallowing. No nausea or vomiting. She did have some dry irritating cough, but no worsening. No chest pain, shortness of breath or cough. PHYSICAL EXAMINATION: On examination, her blood pressure is 123/72 with a pulse of 78, temperature 98.8. She is 95% on room air. General description is an elderly female up in the bed in no distress. RESPIRATORY SYSTEM: Unlabored breathing, clear to auscultation anteriorly. HEART: S1, S2. Regular rate and rhythm. ABDOMEN: Soft. No tenderness. EXTREMITIES: No edema of the feet. LABS: Hemoglobin 6.1, white count 5.7, BUN of 26, creatinine 0.56. DIAGNOSTIC IMPRESSION AND PLAN: 1. Patient with pneumonia that has been adequately treated. Currently off antibiotic therapy. 2. Patient with significant oral thrush and herpes labialis. Patient currently covered with Valtrex and swish and swallow. Will monitor clinical course closely. Continue with supportive care. MMODL / IJN: [id number] /
[2019-05-14] MEDS ORDERED: POTASSIUM CHLORIDE ER 20 MEQ TAB.ER PO STA (13:24)
[2019-05-14 16:58] LABS: Glucose,Whole Blood 193 mg/dL (75-99)
--- NOTE | 2019-05-14 18:56 | P.PN ---
Subjective Progress Note Date: 05/14/19 Principal diagnosis: Is a 73-year-old female that is currently being treated for CLL and thrombocytopenia and is being closely monitored. Dr. Oliva is following the patient. Infectious disease is following the patient is well. Patient is still currently on IV cefepime for pneumonia. Patient's hemoglobin today is 6.5 and platelets are 7. Patient is awaiting transfusions of platelets and packed red blood cells at this time. Patient will also be receiving Rituxan today. Romi ent was weaned off oxygen from yesterday into today and is currently maintaining oxygen saturation between 93-94% on room air. Patient denies any chest pain, shortness of breath, or palpitations at this time. Patient is currently sitting up in the recliner next to the bed in no acute distress. Patient states she is awaiting for platelets to be transfused. Patient denies any nausea or vomiting at this time. Patient's temp is 99.6F. Prognosis is guarded. 05/14/19 Today patient is sitting up in bed in no acute distress. Patient received a unit of PRBC and a unit of platelets yesterday. Morning repeat labs are pending at this time. Patient is to receive Rituxan once the labs have resulted. Patient is having some lip discomfort as well as soreness of her mouth. Patient Cools solution was made more frequent per oncology. Patient denies any shortness of breath, chest pain, or palpitations at this time. Patient denies any nausea, vomiting, or diarrhea at this time. Guarded prognosis. Will continue to monitor closely. Objective - Vital Signs Vital signs: Vital Signs Temp 98.8 F 05/14/19 12:07 Pulse 74 05/14/19 16:10 Resp 17 05/14/19 16:10 BP 123/72 05/14/19 12:07 Pulse Ox 95 05/14/19 12:07 Intake & Output 05/13/19 05/14/19 05/14/19 18:59 06:59 18:59 Intake Total 411 550 240 Output Total 1700 1 Balance 411 -1150 239 Weight 97.5 kg 97 kg Intake: Intake, IV Titration 100 Amount Cefepime 2 gm In Sodium 100 Chloride 0.9% 100 ml @ 200 mls/hr IVPB Q12H [facility] Rx#:[id number] Oral 240 240 Blood Product 311 310 Platelet Irr Pheresis 2 311 Acda Unit [id number] Rc Pheresis As-3 Unit 0 310 [id number] Output: Urine 1700 1 Other: Voiding Method Bedside Commode Bedside Commode Bedside Commode Incontinent Incontinent Incontinent # Voids 1 1 # Bowel Movements 1 - Exam Gen: This is a 73-year-old female lying in bed watching TV in no acute distress. Blood pressure is 155/63, pulse is 68, temp is 98.6F, respirations are 18, oxygen saturation is 94% on room air. HEENT: Head is atraumatic, normocephalic. Pupils equal, round. Sclerae is anicteric. Oral mucosa is dry and upper and lower lip are pale and dry with chapping noted. NECK: Supple. No JVD. No lymphadenopathy. No thyromegaly. LUNGS: Clear to auscultation. No wheezes or rhonchi. No intercostal retractions. HEART: Regular rate and rhythm. No murmur. ABDOMEN: Soft. Bowel sounds are present. No masses. No tenderness. EXTREMITIES: No pedal edema. No calf tenderness. NEUROLOGICAL: Patient is awake, alert and oriented x3. Cranial nerves 2 through 12 are grossly intact. - Labs CBC & Chem 7: 05/14/19 10:15 05/14/19 10:15 Labs: Abnormal Lab Results - Last 24 Hours (Table) 05/13/19 05/13/19 05/14/19 Range/Units 11:25 20:41 07:08 RBC (3.80-5.40) m/uL Hgb (11.4-16.0) gm/dL Hct (34.0-46.0) % RDW (11.5-15.5) % Plt Count (150-450) k/uL Neutrophils # (Manual) (1.3-7.7) k/uL Lymphocytes # (Manual) (1.0-4.8) k/uL Potassium (3.5-5.1) mmol/L BUN (7-17) mg/dL Glucose (74-99) mg/dL POC Glucose (mg/dL) 126 H 114 H (75-99) mg/dL Calcium (8.4-10.2) mg/dL Total Bilirubin (0.2-1.3) mg/dL AST (14-36) U/L Total Protein (6.3-8.2) g/dL Albumin (3.5-5.0) g/dL Crossmatch See Detail 05/14/19 05/14/19 05/14/19 Range/Units 10:15 10:15 11:58 RBC 2.16 L (3.80-5.40) m/uL Hgb 6.9 L* (11.4-16.0) gm/dL Hct 20.8 L (34.0-46.0) % RDW 16.0 H (11.5-15.5) % Plt Count 10 L* (150-450) k/uL Neutrophils # (Manual) 0.06 L* (1.3-7.7) k/uL Lymphocytes # (Manual) 5.59 H (1.0-4.8) k/uL Potassium 3.3 L (3.5-5.1) mmol/L BUN 26 H (7-17) mg/dL Glucose 148 H (74-99) mg/dL POC Glucose (mg/dL) 207 H (75-99) mg/dL Calcium 7.9 L (8.4-10.2) mg/dL Total Bilirubin 2.2 H (0.2-1.3) mg/dL AST 11 L (14-36) U/L Total Protein 5.7 L (6.3-8.2) g/dL Albumin 3.2 L (3.5-5.0) g/dL Crossmatch 05/14/19 Range/Units 16:56 RBC (3.80-5.40) m/uL Hgb (11.4-16.0) gm/dL Hct (34.0-46.0) % RDW (11.5-15.5) % Plt Count (150-450) k/uL Neutrophils # (Manual) (1.3-7.7) k/uL Lymphocytes # (Manual) (1.0-4.8) k/uL Potassium (3.5-5.1) mmol/L BUN (7-17) mg/dL Glucose (74-99) mg/dL POC Glucose (mg/dL) 193 H (75-99) mg/dL Calcium (8.4-10.2) mg/dL Total Bilirubin (0.2-1.3) mg/dL AST (14-36) U/L Total Protein (6.3-8.2) g/dL Albumin (3.5-5.0) g/dL Crossmatch Assessment and Plan Assessment: Acute hypoxic respiratory failure secondary to acute lung injury related to blood/platelet transfusions, possibility of pneumonia, cannot be ruled out. CHF is less likely. Patient is presently on cefepime per infectious disease. Anemia and thrombocytopenia and neutropenia secondary to CLL, patient is set to have chemotherapy today. Patient's hemoglobin of 6.9, and a platelet count being 10. Petechial rash secondary to thrombocytopenia CLL with leukocytosis: Improving, current WBC is 5.7 History of breast cancer in 2014 status post chemo/radiation and surgery. Currently on anastrozole Hypertension Hyperlipidemia Osteoarthritis Previous history of smoking DVT prophylaxis with SCDs and ambulation. Recommendations and discussion: Recommend continuing current medication management and symptomatic treatment. Patient is awaiting to receive chemotherapy of Rituxan today as well. Oncology is following closely. Infectious disease is following as well. Guarded prognosis. Further recommendations to follow. Possible discharge in the next 24-48 hours if platelets remain stable. We'll continue to monitor labs and vital signs closely.
[2019-05-14 20:11] LABS: Glucose,Whole Blood 166 mg/dL (75-99)
[2019-05-14] MEDS: ATORVASTATIN 40 MG TAB PO SCH (20:45)
[2019-05-14] MEDS ORDERED: methylPREDNISolone SOD SUCCI 125 MG/2 ML VIAL IV ONE (21:30)
[2019-05-14] MEDS ORDERED: ACETAMINOPHEN TAB 500 MG TAB PO ONE (21:30)
[2019-05-14] MEDS ORDERED: diphenhydrAMINE 50 MG/ML 1 ML VIAL IVP ONE (21:30)
[2019-05-14] MEDS ORDERED: FAMOTIDINE 20 MG/2 ML VIAL IV ONE (21:30)
[2019-05-14] MEDS ORDERED: riTUXimab 700 MG in SODIUM CHLORIDE 0.9% 500 ML 500 ML IV NR (22:00)
[2019-05-15] MEDS: MAG HYDROX/AL HYDROX/SIMETH 30 ML, diphenhydrAMINE ELIXIR 75 MG, LIDOCAINE VISCOUS 30 ML PO SCH ×12 (00:27→13:15)
[2019-05-15] MEDS: SODIUM CHLORIDE 0.9% 500 ML 500 ML IV SCH (01:35)
[2019-05-15 07:07] LABS: Glucose,Whole Blood 161 mg/dL (75-99)
[2019-05-15] MEDS: ANASTROZOLE 1 MG TAB PO SCH (08:21)
[2019-05-15] MEDS: predniSONE 20 MG TAB PO SCH (08:21)
[2019-05-15] MEDS: valACYclovir 500 MG TAB PO SCH (08:21)
[2019-05-15] MEDS: METOPROLOL TARTRATE 25 MG TAB PO SCH (08:21)
[2019-05-15] MEDS: INSULIN ASPART (NovoLOG) 100 UNIT/ML VIAL SQ SCH ×2 (08:21→13:05)
[2019-05-15] MEDS: PANTOPRAZOLE 40 MG TABLET PO SCH (08:22)
[2019-05-15] MEDS: FERROUS SULFATE 325 MG TAB PO SCH (08:22)
[2019-05-15] MEDS: FUROSEMIDE 10 MG/ML 4 ML VIAL IV SCH (08:22)
[2019-05-15] MEDS: DOCUSATE 100 MG CAP PO SCH (08:22)
[2019-05-15] MEDS: amLODIPine 5 MG TAB PO SCH (08:22)
[2019-05-15 09:00] LABS: Anisocytosis Slight; HGB 8.1 gm/dL (11.4-16.0); MCH 31.7 pg (25.0-35.0); MCHC 33.7 g/dL (31.0-37.0); Mean Platelet Volume 8.5; RBC 2.55 m/uL (3.80-5.40); RDW 16.6 % (11.5-15.5); WBC 11.7 k/uL (3.8-10.6)
[2019-05-15 09:07] LABS: Platelet Count 18 k/uL (150-450)
[2019-05-15 11:32] LABS: Glucose,Whole Blood 204 mg/dL (75-99)
[2019-05-15 11:50] VITALS: BP 127/57; PULSE 69; RESP 17; TEMP 98.3
[2019-05-15 12:09] LABS: Neutrophils % (M) 1 %
[2019-05-15 12:10] LABS: Nucleated Red Blood Cells 0 /100 WBC (0-0); Total Cells Counted 200
[2019-05-15 12:15] LABS: Rouleaux Present
[2019-05-15] MEDS: FILGRASTIM-SNDZ 480 MCG/0.8 ML SYRINGE SQ SCH (13:04)
--- NOTE | 2019-05-15 14:08 | P.PN ---
Subjective Progress Note Date: 05/15/19 Principal diagnosis: CLL Status POst Platlets cross match yesterday. Plan to discharge today and transfuse next crossmatched platlets as outpatient tomorrow. Objective - Vital Signs Vital signs: Vital Signs Temp 98.3 F 05/15/19 11:25 Pulse 69 05/15/19 11:25 Resp 17 05/15/19 11:25 BP 127/57 05/15/19 11:25 Pulse Ox 96 05/15/19 11:25 Intake & Output 05/14/19 05/15/19 05/15/19 18:59 06:59 18:59 Intake Total 240 762.600 Output Total 1 1 Balance 239 761.600 Weight 97 kg Intake: Intake, IV Titration 235.600 Amount riTUXimab 700 mg In 235.600 Sodium Chloride 0.9% 500 ml 500 ml @ Titrate IV . Q0M [facility] Rx#:[id number] Oral 240 Blood Product 527 Platelet Irr Pheresis 2 217 Acda Unit [id number] Rc Irr As1 Unit 310 [id number] Output: Urine 1 1 Other: Voiding Method Bedside Commode Bedside Commode Toilet Incontinent Incontinent Incontinent # Voids 1 1 # Bowel Movements 1 - Exam Gen: alERT Bipap Head: NCNT Lungs: DIminished mild increased effort HR - Tachy Abd Obese soft Ext no edema no rash - Labs CBC & Chem 7: 05/15/19 08:33 05/14/19 10:15 Labs: Abnormal Lab Results - Last 24 Hours (Table) 05/13/19 05/14/19 05/14/19 Range/Units 11:25 16:56 20:09 WBC (3.8-10.6) k/uL RBC (3.80-5.40) m/uL Hgb (11.4-16.0) gm/dL Hct (34.0-46.0) % RDW (11.5-15.5) % Plt Count (150-450) k/uL Neutrophils # (Manual) (1.3-7.7) k/uL Lymphocytes # (Manual) (1.0-4.8) k/uL POC Glucose (mg/dL) 193 H 166 H (75-99) mg/dL Crossmatch See Detail 08/01/19 08/01/19 08/01/19 Range/Units 07:05 08:33 11:26 WBC 11.7 H (3.8-10.6) k/uL RBC 2.55 L (3.80-5.40) m/uL Hgb 8.1 L (11.4-16.0) gm/dL Hct 24.0 L (34.0-46.0) % RDW 16.6 H (11.5-15.5) % Plt Count 18 L* D (150-450) k/uL Neutrophils # (Manual) 0.12 L* (1.3-7.7) k/uL Lymphocytes # (Manual) 11.50 H (1.0-4.8) k/uL POC Glucose (mg/dL) 161 H 204 H (75-99) mg/dL Crossmatch Assessment and Plan Plan: Assessment and Recommendations: CLL - Treatment with single agent monoclonal antibody (Rituxan) initiated inpatient on 05/07/19 - due to patient' s critical condition and instability requiring ongoing hospitalization. - Patient's total white blood cell count is down to 11 from the 40 range. Her absolute lymphocyte count iis responding as well - Monitor CBC with differential and CMP, Uric acid, LDH, Coags Labs daily - Daily follow up Pancytopenia: Neutropenia - Febrile neutropenia resolved - Persistent, felt to be related to CLL. - Patient given 1 unit of single donor platelets for a platelet count of 8K today. Transfuse for platelet <10,000 or if symptomatic. - NO ASA, NSAIDs, anticoagulation, ibuprofen or motrin. - Hemoglobin 7.9 today, No transfusion required today - Total WBC trending down indicating positive response, remains neutropenic - Zarxio continued. - Afebrile, ID is following SIRS/Sepsis: - ID Following and Broad Spectrum Coverage Acute Hypoxic Respiratory Failure: Improved - Pulm and ICU evaluation - Likely secondary CLL versus sepsis versus other - ID is following Hx: Breast Cancer: - Continue on Arimidex. 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
--- NOTE | 2019-05-15 16:24 | P.DS ---
Providers Date of admission: 04/25/19 16:31 Expected date of discharge: 05/15/19 Attending physician: Pk Link Consults: 04/25/19 16:32 Consult Physician Routine Consulting Provider: Tomy Oliva Consult Reason/Comments: Thrombocytopenia Do you want consulting provider notified?: Yes 05/01/19 16:21 Consult Physician Routine Consulting Provider: Sergo Zavala Consult Reason/Comments: fever of unknown origin Do you want consulting provider notified?: Yes 05/02/19 11:02 Consult Physician Stat Consulting Provider: Cristino Courtney Consult Reason/Comments: chf Do you want consulting provider notified?: Yes 05/02/19 12:03 Consult Physician Stat Consulting Provider: Ricardo Lundy Consult Reason/Comments: sob Do you want consulting provider notified?: Yes 05/02/19 14:48 Consult Physician Urgent Consulting Provider: Cristino Courtney Consult Reason/Comments: troponins and ekg changes Do you want consulting provider notified?: Yes Primary care physician: Temo Batista S[facility] Hospital Course: Final diagnosis Acute hypoxic respiratory failure secondary to acute lung injury related to blood/platelet transfusions, possibility of pneumonia, cannot be ruled out. CHF is less likely. Patient completed IV antibiotic therapy. Anemia and thrombocytopenia and neutropenia secondary to CLL Petechial rash secondary to thrombocytopenia CLL with leukocytosis History of breast cancer in 2014 status post chemo/radiation and surgery Hypertension Hyperlipidemia Osteoarthritis Previous history of smoking Herpes labialis Oral thrush Discharge disposition Patient is being discharged in a stable condition with guarded prognosis to home. Oncology is following. Patient will follow-up in their office in the morning at 8 AM for her scheduled appointment for platelet transfusion. History of present illness This is a 73-year-old female was currently being treated for CLL and thrombocytopenia that was closely being monitored. Dr. Oliva is following closely. Infectious disease was on board as well. Patient was treated for pneumonia with IV antibiotics and has completed the course. Patient will continue on oral nystatin, cool solution, Valtrex as instructed. Patient is said to have a platelet transfusion in the outpatient setting in the office in the morning at 8 AM. Patient denies any shortness of breath, chest pain, or palpitations at this time. Patient denies any nausea or vomiting or diarrhea at this time. Patient is ready for discharge and would like to go home today. Per oncology patient is stable for discharge and will follow-up in their clinic in the morning. On exam vital signs are stable. Blood pressure is 127/57, pulse is 69, respirations are 16, oxygen saturation is 96% on room air, temp is 98.3F. Cardio S1 and S2 are normal. Respiratory system is clear to auscultation with no wheezing noted. Abdomen is soft and non-tender. Nervous system shows no focal deficits and gait is steady. Please refer to medication reconciliation sheet for a list of medications. Patient Condition at Discharge: Fair Plan - Discharge Summary Discharge Rx Participant: No New Discharge Prescriptions: New valACYclovir [Valtrex] 1,000 mg PO BID #60 tab Continue amLODIPine [Norvasc] 5 mg PO BID Anastrozole [Arimidex] 1 mg PO DAILY Pantoprazole Sodium [Protonix] 40 mg PO BID #60 tablet. Allopurinol [Zyloprim] 300 mg PO DAILY Docusate [Colace] 100 mg PO DAILY Imatinib Mesylate [Gleevec] 400 mg PO DAILY Ferrous Sulfate [Iron (65 MG Elemental)] 325 mg PO DAILY Atorvastatin [Lipitor] 40 mg PO HS Discharge Medication List Anastrozole [Arimidex] 1 mg PO DAILY 03/28/16 [History] amLODIPine [Norvasc] 5 mg PO BID 03/28/16 [History] Pantoprazole Sodium [Protonix] 40 mg PO BID #60 tablet. 04/27/16 [Rx] Allopurinol [Zyloprim] 300 mg PO DAILY 04/25/19 [History] Atorvastatin [Lipitor] 40 mg PO HS 04/25/19 [History] Docusate [Colace] 100 mg PO DAILY 04/25/19 [History] Ferrous Sulfate [Iron (65 MG Elemental)] 325 mg PO DAILY 04/25/19 [History] Imatinib Mesylate [Gleevec] 400 mg PO DAILY 04/25/19 [History] valACYclovir [Valtrex] 1,000 mg PO BID #60 tab 05/15/19 [Rx] Follow up Appointment(s)/Referral(s): Rhea Sotomayor NPC [Nurse Practitioner] - 05/16/19 8:00 am Temo Scott III, MD [Primary Care Provider] - 05/06/19 3:00 pm ( with Lexus REYES) [facility] Visiting Nurse, [NON-STAFF] - 1-2 Days Patient Instructions/Handouts: Valacyclovir (By mouth), Pancytopenia (DC) Activity/Diet/Wound Care/Special Instructions: Activity Limited until follow-up Patient has an appointment in the morning at 8 AM Continue current diet Discharge Disposition: HOME SELF-CARE
--- NOTE | 2019-05-15 19:00 | PN ---
PROGRESS NOTE DATE OF SERVICE: 05/15/2019. REASON FOR FOLLOWUP: 1. Pneumonia, adequately treated. 2. Herpes labialis. 3. Oral thrush. 4. Diarrhea. INTERVAL HISTORY: The patient is currently afebrile. The patient has been breathing comfortably. The patient's oral sore has slightly improved. The patient did have one episode of explosive diarrhea, but no abdominal pain. No nausea, no vomiting. Her breathing is baseline. PHYSICAL EXAMINATION: Her blood pressure is 127/57 with a pulse of 69, temperature 98.3. She is 96% on room air. General description is an elderly female up in a chair in no distress. RESPIRATORY SYSTEM: Unlabored breathing with decreased breath sounds at the base. No wheeze. HEART: S1, S2. Regular rate and rhythm. ABDOMEN: Soft. No tenderness. The patient's oral sore is slightly decreased in intensity. No redness. LABS: Hemoglobin 8.1, white count of 11.7. Platelet count is 18,000. DIAGNOSTIC IMPRESSION AND PLAN: 1. Patient with pneumonia, adequately treated. 2. Herpes labialis. Continue with oral acyclovir because of extensive infection. 3. Oral thrush. Continue nystatin swish and swallow. 4. Diarrhea. Patient has been advised to increase her probiotic and yogurt intake. If diarrhea persists or gets any worse, we will be checking the stool for C difficile. Continue to monitor. MMODL / IJN: [id number] /
[2019-05-21] MEDS ORDERED: predniSONE 20 MG TAB PO SCH (09:00)
[2019-05-28] MEDS ORDERED: predniSONE 10 MG TAB PO SCH (09:00)
== END 2019-05-15 17:15 | disposition home health service (06) | DRG 840 ==
LOC: EC 15:42 → 3SCARD 16:31 → 2SICU 05-02 13:30 → 4SSUR 05-10 04:36 → 3NMEDONC 05-12 16:55
PROVIDERS: ADMIT Internal Medicine; ATTEND Internal Medicine
PROC: 30233R1 Transfusion of Nonautologous Platelets into Peripheral Vein, Percutaneous Approach (ICD-10-PCS; 2019-04-25)
PROC: 30233N1 Transfusion of Nonautologous Red Blood Cells into Peripheral Vein, Percutaneous Approach (ICD-10-PCS; 2019-04-25)
PROC: 07DR3ZX Extraction of Iliac Bone Marrow, Percutaneous Approach, Diagnostic (ICD-10-PCS; principal; 2019-04-29 07:30)
DX: C91.10 Chronic lymphocytic leukemia of B-cell type not having achieved remission (principal); A41.9 Sepsis, unspecified organism; J18.9 Pneumonia, unspecified organism; I50.33 Acute on chronic diastolic (congestive) heart failure; J80 Acute respiratory distress syndrome; D69.3 Immune thrombocytopenic purpura; D61.818 Other pancytopenia; E66.2 Morbid (severe) obesity with alveolar hypoventilation; Z68.42 Body mass index [BMI] 45.0-49.9, adult; E87.3 Alkalosis; J95.84 Transfusion-related acute lung injury (TRALI); B37.0 Candidal stomatitis; C49.A2 Gastrointestinal stromal tumor of stomach; I10 Essential (primary) hypertension; M19.90 Unspecified osteoarthritis, unspecified site; D63.0 Anemia in neoplastic disease; E78.5 Hyperlipidemia, unspecified; E83.51 Hypocalcemia; E87.6 Hypokalemia; I08.0 Rheumatic disorders of both mitral and aortic valves; D89.9 Disorder involving the immune mechanism, unspecified; I27.20 Pulmonary hypertension, unspecified; I11.0 Hypertensive heart disease with heart failure; I48.0 Paroxysmal atrial fibrillation; Z96.651 Presence of right artificial knee joint; R19.7 Diarrhea, unspecified; D70.9 Neutropenia, unspecified; R50.81 Fever presenting with conditions classified elsewhere; B00.1 Herpesviral vesicular dermatitis; Y84.8 Other medical procedures as the cause of abnormal reaction of the patient, or of later complication, without mention of misadventure at the time of the procedure; Y82.8 Other medical devices associated with adverse incidents; Y92.230 Patient room in hospital as the place of occurrence of the external cause; Z85.3 Personal history of malignant neoplasm of breast; Z79.899 Other long term (current) drug therapy; Z92.21 Personal history of antineoplastic chemotherapy; Z92.3 Personal history of irradiation; Z98.51 Tubal ligation status; Z87.891 Personal history of nicotine dependence; Z80.9 Family history of malignant neoplasm, unspecified; Z79.811 Long term (current) use of aromatase inhibitors; Z85.00 Personal history of malignant neoplasm of unspecified digestive organ; Z91.81 History of falling; Z90.3 Acquired absence of stomach [part of]
CPT/HCPCS: 36415; 36600; 38222; 71045; 71046; 71260; 80048; 80053; 80202; 81001; 81003; 82330; 82805; 83735; 83880; 84100; 84132; 84145; 84484; 84550; 85025; 85027; 85045; 85610; 85730; 86850; 86880; 86900; 86901; 86920; 87040; 87086; 93306; 94640; 94660; 94760; 99284

== ENCOUNTER → 2019-05-16 | Outpatient (CLI) | payer MEDICARE ==
[~2019-05-16] MED LIST: SODIUM CHLORIDE 0.9% 500 ML 500 ML in EMPTY BAG 1 BAG IV PRN
[2019-05-16 10:30] VITALS: RESP 16
[2019-05-16 11:18] VITALS: BP 87/49; PULSE 84; TEMP 98.8
== END | disposition home or self-care (01) ==
LOC: PROCWHC3 08:59
PROVIDERS: ATTEND Internal Medicine Hematology & Oncology
DX: C91.10 Chronic lymphocytic leukemia of B-cell type not having achieved remission (principal)
CPT/HCPCS: 36430; P9035

== ENCOUNTER 2019-05-19 08:27 | Inpatient (IN) | payer MEDICARE ==
[2019-05-19] MEDS ORDERED: MORPHINE SULFATE 4 MG/ML SYRINGE IVP STA (08:59)
[2019-05-19] MEDS ORDERED: ONDANSETRON 4 MG/2 ML VIAL IVP STA (08:59)
[2019-05-19] MEDS ORDERED: SODIUM CHLORIDE 0.9% 1,000 ML IV ONE (08:59)
[2019-05-19] MEDS: SODIUM CHLORIDE 0.9% 1,000 ML IV SCH (09:19)
--- NOTE | 2019-05-19 09:27 | ED ---
Recheck HPI - General Chief Complaint: Recheck/Abnormal Lab/Rx Stated Complaint: LOW PLATELET COUNT, SENT BY DR RODRIGUEZ Time Seen by Provider: 05/19/19 08:41 Source: patient, family, RN notes reviewed Mode of arrival: wheelchair Limitations: no limitations - History of Present Illness Initial Comments: This a 73-year-old female presents emergency Department with chief complaint of low hemoglobin and platelets. Patient has CLL was recently discharged from the hospital after 3 weeks day for thrombocytopenia and anemia. She has received several transfusions and had minimal improvement of her platelets. Patient repeat labs this morning which showed evidence of hemoglobin 6.7 and platelets of 2. Patient sent over for admission. She was treated for pneumonia during her hospital stay patient complains of persistent cough - Related Data Home Medications Medication Instructions Recorded Confirmed Anastrozole [Arimidex] 1 mg PO DAILY 03/28/16 05/19/19 amLODIPine [Norvasc] 5 mg PO BID 03/28/16 05/19/19 Allopurinol [Zyloprim] 300 mg PO DAILY 04/25/19 05/19/19 Atorvastatin [Lipitor] 40 mg PO HS 04/25/19 05/19/19 Docusate [Colace] 100 mg PO DAILY 04/25/19 05/19/19 Ferrous Sulfate [Iron (65 MG 325 mg PO DAILY 04/25/19 05/19/19 Elemental)] Imatinib Mesylate [Gleevec] 400 mg PO DAILY 04/25/19 05/19/19 Previous Rx's Medication Instructions Recorded Pantoprazole Sodium [Protonix] 40 mg PO BID #60 tablet. 04/27/16 valACYclovir [Valtrex] 1,000 mg PO BID #60 tab 05/15/19 Allergies Allergy/AdvReac Type Severity Reaction Status Date / Time No Known Allergies Allergy Verified 05/19/19 08:50 Review of Systems ROS Statement: Those systems with pertinent positive or pertinent negative responses have been documented in the HPI. ROS Other: All systems not noted in ROS Statement are negative. Past Medical History Past Medical History: Blood Disorder, Cancer, Hyperlipidemia, Hypertension, Osteoarthritis (OA), Pneumonia Additional Past Medical History / Comment(s): hx. breast cancer 2014 w /lumpectomy, chemo & radiation, new dx. chronic lymphocytic leukemia(CLL), DJD. LOW PLATELETS-MULTIPLE TRANSFUSION. History of Any Multi-Drug Resistant Organisms: None Reported Past Surgical History: Bladder Surgery, Breast Surgery, Joint Replacement, Tubal Ligation, Uterine Ablation Additional Past Surgical History / Comment(s): 04/18/16 total right knee arthroplasty. Other surgical hx: right breast lumpectomy, bladder suspension, several D & C's Past Anesthesia/Blood Transfusion Reactions: Postoperative Nausea & Vomiting (PONV) Past Psychological History: No Psychological Hx Reported Smoking Status: Former smoker Past Alcohol Use History: None Reported Past Drug Use History: None Reported - Past Family History Father Family Medical History: Cancer Sister(s) Family Medical History: Cancer Mother Family Medical History: Cancer General Exam Limitations: no limitations General appearance: alert, in no apparent distress Head exam: Present: atraumatic, normocephalic, normal inspection Eye exam: Present: normal appearance, PERRL, EOMI. Absent: scleral icterus, conjunctival injection, periorbital swelling ENT exam: Present: mucous membranes dry. Absent: normal oropharynx (Sores in her mouth and lips,), mucous membranes moist Neck exam: Present: normal inspection. Absent: tenderness, meningismus, lymphadenopathy Respiratory exam: Present: normal lung sounds bilaterally. Absent: respiratory distress, wheezes, rales, rhonchi, stridor Cardiovascular Exam: Present: regular rate, normal rhythm, normal heart sounds. Absent: systolic murmur, diastolic murmur, rubs, gallop, clicks GI/Abdominal exam: Present: soft, normal bowel sounds. Absent: distended, tenderness, guarding, rebound, rigid Back exam: Absent: CVA tenderness (R), CVA tenderness (L) Neurological exam: Present: alert, oriented X3, CN II-XII intact Skin exam: Present: warm, dry, intact, normal color. Absent: rash Course Vital Signs 05/19/19 05/19/19 05/19/19 08:32 09:18 09:30 Temperature 98.3 F Pulse Rate 101 H 96 Respiratory 18 22 Rate Blood Pressure 98/65 106/52 106/52 O2 Sat by Pulse 96 95 Oximetry 05/19/19 09:35 Temperature Pulse Rate Respiratory 22 Rate Blood Pressure O2 Sat by Pulse Oximetry Medical Decision Making - Medical Decision Making 73-year-old female presented emergency department for low platelets and hemoglobin. Patient's found to have pancytopenia related to her CLL. Chest x- ray was repeated which shows evidence of multifocal pneumonia with elevated lactic acid concerning for sepsis. Patient was started on cefepime and vancomycin. I did discuss patient's platelet transfusion with blood bank and Lisa Cooley with oncology who recommends ordering cross matched platelets will be given radiated platelets at this time. Patient also transfuse 1 unit. Patient will be admitted to telemetry with oncology - Lab Data Result diagrams: 05/19/19 09:10 05/19/19 09:10 Lab Results 05/19/19 05/19/19 05/19/19 Range/Units 09:10 09:10 09:10 WBC 3.0 L (3.8-10.6) k/uL RBC 2.10 L (3.80-5.40) m/uL Hgb 6.6 L* D (11.4-16.0) gm/dL MCV 92.1 (80.0-100.0) fL MCH 31.5 (25.0-35.0) pg MCHC 34.2 (31.0-37.0) g/dL RDW 16.3 H (11.5-15.5) % Anisocytosis Slight PT (9.0-12.0) sec INR (<1.2) APTT (22.0-30.0) sec Sodium 138 (137-145) mmol/L Potassium 3.1 L (3.5-5.1) mmol/L Chloride 104 (98-107) mmol/L Carbon Dioxide 22 (22-30) mmol/L Anion Gap 12 mmol/L BUN 24 H (7-17) mg/dL Creatinine 0.92 (0.52-1.04) mg/dL Est GFR (CKD-EPI)AfAm 72 (>60 ml/min/1.73 sqM) Est GFR (CKD-EPI)NonAf 63 (>60 ml/min/1.73 sqM) Glucose 206 H (74-99) mg/dL Plasma Lactic Acid Diego (0.7-2.0) mmol/L Calcium 7.7 L (8.4-10.2) mg/dL Total Bilirubin 1.0 (0.2-1.3) mg/dL AST 13 L (14-36) U/L ALT 31 (9-52) U/L Alkaline Phosphatase 45 (38-126) U/L Total Protein 5.0 L (6.3-8.2) g/dL Albumin 2.7 L (3.5-5.0) g/dL Transfuse Platelets 05/19/19 05/19/19 05/19/19 Range/Units 09:10 09:10 WBC (3.8-10.6) k/uL RBC (3.80-5.40) m/uL Hgb (11.4-16.0) gm/dL MCV (80.0-100.0) fL MCH (25.0-35.0) pg MCHC (31.0-37.0) g/dL RDW (11.5-15.5) % Anisocytosis PT 11.1 (9.0-12.0) sec INR 1.0 (<1.2) APTT 24.7 (22.0-30.0) sec Sodium (137-145) mmol/L Potassium (3.5-5.1) mmol/L Chloride (98-107) mmol/L Carbon Dioxide (22-30) mmol/L Anion Gap mmol/L BUN (7-17) mg/dL Creatinine (0.52-1.04) mg/dL Est GFR (CKD-EPI)AfAm (>60 ml/min/1.73 sqM) Est GFR (CKD-EPI)NonAf (>60 ml/min/1.73 sqM) Glucose (74-99) mg/dL Plasma Lactic Acid Diego 2.3 H* (0.7-2.0) mmol/L Calcium (8.4-10.2) mg/dL Total Bilirubin (0.2-1.3) mg/dL AST (14-36) U/L ALT (9-52) U/L Alkaline Phosphatase (38-126) U/L Total Protein (6.3-8.2) g/dL Albumin (3.5-5.0) g/dL Transfuse Platelets Critical Care Time Critical Care Time: Yes Total Critical Care Time: 35 Critical Care Time: 73-year-old female presented emergency department for low platelets and hemoglobin. To 35 minutes of critical care time initial evaluation, review past medical history, prior records. Labs including CBC, CMP, PT/INR and repeat chest x-ray were ordered. Patient's found to have pancytopenia related to her CLL. Chest x-ray was repeated which shows evidence of multifocal pneumonia with elevated lactic acid concerning for sepsis. Patient was started on cefepime and vancomycin. I did discuss patient's platelet transfusion with blood bank and Lisa Cooley with oncology who recommends ordering cross matched platelets will be given radiated platelets at this time. Patient also transfuse 1 unit. Patient will be admitted to telemetry with oncology Disposition Clinical Impression: Pancytopenia, CLL (chronic lymphocytic leukemia), Pneumonia Disposition: ADMITTED IP TO THIS HOSP Condition: Critical Referrals: Temo Scott III, MD [Primary Care Provider] - 1-2 days
[2019-05-19 09:45] LABS: Partial Thromboplastin Time 24.7 sec (22.0-30.0); Prothrombin Time 11.1 sec (9.0-12.0)
[2019-05-19 09:46] LABS: Albumin 2.7 g/dL (3.5-5.0); Calcium 7.7 mg/dL (8.4-10.2); Potassium 3.1 mmol/L (3.5-5.1)
--- NOTE | 2019-05-19 09:55 | XR ---
EXAMINATION TYPE: XR chest 2V DATE OF EXAM: 05/19/2019 COMPARISON: Chest x-ray May 13, 2019. CT chest May 04, 2019 HISTORY: Thrombocytopenia and anemia. Cough and congestion. Chest pain. TECHNIQUE: Frontal and lateral views of the chest are obtained. FINDINGS: Cardiac silhouette size remains enlarged. There is stable left subclavian Mediport cathete r. There is persistent lateral left midlung airspace opacity and more central right midlung opacity. Some improvement on the right side felt present. Persistent retrocardiac opacity felt present seen be st on lateral view. No new focal airspace opacity, pleural effusion, or pneumothorax is seen. Surgica l clips overlying right breast are redemonstrated. Osseous structures are intact. IMPRESSION: Cardiomegaly with bilateral multifocal infiltrates remain present. No obvious new infilt rate is seen.
[2019-05-19 10:01] LABS: Anisocytosis Slight; Basophils % (A) 0 %; Eosinophils % (A) 1 %; Lymphocytes # (A) 2.8 k/uL (1.0-4.8); Lymphocytes % (A) 96 %; MCH 31.5 pg (25.0-35.0); MCHC 34.2 g/dL (31.0-37.0); MCV 92.1 fL (80.0-100.0); Mean Platelet Volume 6.9; Monocytes % (A) 0 %; Neutrophils % (A) 2 %; RDW 16.3 % (11.5-15.5)
[2019-05-19] MEDS ORDERED: CEFEPIME 2 GM in SODIUM CHLORIDE 0.9% 100 ML IVPB STA (10:03)
[2019-05-19] MEDS ORDERED: VANCOMYCIN IV PER PHARMACY 1 EACH MISC MISCELLANE PRN ×2 (10:06→19:45)
[2019-05-19 10:14] LABS: HGB 6.6 gm/dL (11.4-16.0)
[2019-05-19 10:15] LABS: HCT 19.3 % (34.0-46.0); Neutrophils # (A) 0.1 k/uL (1.3-7.7)
[2019-05-19 10:16] LABS: Platelet Count 2 k/uL (150-450)
[2019-05-19] MEDS ORDERED: PNEUMONIA PROTOCOL UTILIZED 1 EACH MISC PO PRN (10:22)
[2019-05-19 11:01] LABS: Poikilocytosis (M) Present
[2019-05-19] MEDS ORDERED: VANCOMYCIN 1,500 MG in SODIUM CHLORIDE 0.9% 250 ML IVPB ONE (12:00)
--- NOTE | 2019-05-19 12:33 | P.HPIM ---
History of Present Illness Is a 73-year-old female with a known history of hypertension, hyperlipidemia and CLL and history of breast cancer in 2014 status post chemoradiation and surgery who is currently being treated for CLL with imatinab and is on follow-up with Dr. Oliva as an outpatient was sent to Hospital due to thrombocytopenia. Next a 2 been discharged from the hospital she got platelet and blood transfusion at hematology office, however patient was developing diarrhea about 3 times per day with no significant abdominal pain for about one week, associated with generalized weakness and malaise and dry cough for 3 days with no significant dyspnea or chest pain. Patient went for her hematology office follow-up today and her blood work showed slow platelet count and patient was sent to the hospital. Also on the hospital patient was put back on oxygen, she was discharged on room air last time. Patient was recently discharged from hospital 4 days ago for acute lung injury and possible pneumonia, related to multiple blood/platelet transfusion and was treated in the ICU, after stabilization she was discharged. Also at that time patient has pancytopenia, and the discharge age her white cell count was 11.7 K, hemoglobin 8.1 and platelet 18 K. This time hematology oncology team send the patient to emergency room for pancytopenia with WBC 3.0K, hemoglobin 6.6 and platelet 2K. INR is 1.0, potassium of 3.1, creatinine 0.9, and lactic acid is elevated at 2.3. On admission patient has been afebrile, Restoril Vitas looks stable, she was saturating 87-88% on room air, saturation went up to 96 and 3 L. Chest x-ray: Showing cardiomegaly with bilateral multifocal infiltrates. Patient is getting IV fluids at 100 L/h, also she supposed to get platelets and blood transfusion today, discussed with staff. Also patient was started on va ncomycin and cefepime. Review of Systems CONSTITUTIONAL: No fever, no malaise, no fatigue. HEENT: No recent visual problems or hearing problems. Denied any sore throat. CARDIOVASCULAR: No orthopnea, PND, no palpitations, no syncope. PULMONARY: No shortness of breath, no cough, no hemoptysis. GASTROINTESTINAL: No diarrhea, no nausea, no vomiting, no abdominal pain. Normoactive bowel sounds. NEUROLOGICAL: No headaches, no weakness, no numbness. HEMATOLOGICAL: Denies any bleeding or petechiae. GENITOURINARY: Denies any burning micturition, frequency, or urgency. MUSCULOSKELETAL/RHEUMATOLOGICAL: Denies any joint pain, swelling, or any muscle pain. ENDOCRINE: Denies any polyuria or polydipsia. Past Medical History Past Medical History: Blood Disorder, Cancer, Hyperlipidemia, Hypertension, Osteoarthritis (OA), Pneumonia, Sleep Apnea/CPAP/BIPAP Additional Past Medical History / Comment(s): Pt recently admitted to [facility] on 04/25/19 with acute hypoxic respiratory failure 2ndary to acute lung injury r/t blood/platelet transfusions. Other hx: CLL, low platelets, anemia, thrombocy topenia/ptechial rash, neutropenia, current cold sores, 2013 R breast cancer with lumpectomy/chemo/radiation, CÉSAR with Cpap. History of Any Multi-Drug Resistant Organisms: None Reported Past Surgical History: Bladder Surgery, Breast Surgery, Joint Replacement, Tubal Ligation, Uterine Ablation Additional Past Surgical History / Comment(s): 04/29/19 BMA with bx, R breast lumpectomy, bladder suspension, several D&Cs, colonoscopy. Past Anesthesia/Blood Transfusion Reactions: Postoperative Nausea & Vomiting (PONV) Additional Past Anesthesia/Blood Transfusion Reaction / Comment(s): Pt has received blood/platelets without reaction. Smoking Status: Former smoker - Past Family History Father Family Medical History: Cancer Additional Family Medical History / Comment(s): Father had lung cancer. He was a nonsmoker. Sister(s) Family Medical History: Cancer Additional Family Medical History / Comment(s): Youngest sister has lung cancer that has metastasized to her liver Mother Family Medical History: Coronary Artery Disease (CAD) Additional Family Medical History / Comment(s): Mother of a VT at the age of 96yrs. Medications and Allergies Home Medications Medication Instructions Recorded Confirmed Type Anastrozole [Arimidex] 1 mg PO DAILY 03/28/16 05/19/19 History amLODIPine [Norvasc] 5 mg PO BID 03/28/16 05/19/19 History Pantoprazole Sodium [Protonix] 40 mg PO BID #60 tablet. 04/27/16 05/19/19 Rx Allopurinol [Zyloprim] 300 mg PO DAILY 04/25/19 05/19/19 History Atorvastatin [Lipitor] 40 mg PO HS 04/25/19 05/19/19 History Docusate [Colace] 100 mg PO DAILY 04/25/19 05/19/19 History Ferrous Sulfate [Iron (65 MG 325 mg PO DAILY 04/25/19 05/19/19 History Elemental)] Imatinib Mesylate [Gleevec] 400 mg PO DAILY 04/25/19 05/19/19 History valACYclovir [Valtrex] 1,000 mg PO BID #60 tab 05/15/19 05/19/19 Rx Allergies Allergy/AdvReac Type Severity Reaction Status Date / Time No Known Allergies Allergy Verified 05/19/19 08:50 Physical Exam Vitals: Vital Signs Temp Pulse Resp BP Pulse Ox 05/19/19 11:09 98.8 F 05/19/19 11:08 96 05/19/19 10:30 59 L 20 120/64 87 L 05/19/19 10:00 52 L 22 88 L 05/19/19 09:35 22 05/19/19 09:30 106/52 05/19/19 09:18 96 22 106/52 95 05/19/19 08:32 98.3 F 101 H 18 98/65 96 Intake and Output 05/18/19 05/19/19 05/19/19 22:59 06:59 14:59 Other: Weight 98.883 kg -GENERAL: The patient is alert and oriented x3, not in any acute distress. Well developed, well nourished. Generally weak and pale HEENT: Pupils are round and equally reacting to light. EOMI. No scleral icterus. No conjunctival pallor. Normocephalic, atraumatic. No pharyngeal erythema. No thyromegaly. CARDIOVASCULAR: S1 and S2 present. No murmurs, rubs, or gallops. PULMONARY: Chest is clear to auscultation, no wheezing or crackles. ABDOMEN: Soft, nontender, nondistended, normoactive bowel sounds. No palpable organomegaly. MUSCULOSKELETAL: No joint swelling or deformity. EXTREMITIES: No cyanosis, clubbing, or pedal edema. NEUROLOGICAL: Gross neurological examination did not reveal any focal deficits. SKIN: No rashes. Results CBC & Chem 7: 05/19/19 09:10 05/19/19 09:10 Labs: Abnormal Lab Results - Last 24 Hours (Table) 05/19/19 05/19/19 05/19/19 Range/Units 09:03 09:10 09:10 WBC 3.0 L (3.8-10.6) k/uL RBC 2.10 L (3.80-5.40) m/uL Hgb 6.6 L* D (11.4-16.0) gm/dL Hct 19.3 L* (34.0-46.0) % RDW 16.3 H (11.5-15.5) % Plt Count 2 L* D (150-450) k/uL Neutrophils # 0.1 L* (1.3-7.7) k/uL Potassium 3.1 L (3.5-5.1) mmol/L BUN 24 H (7-17) mg/dL Glucose 206 H (74-99) mg/dL Plasma Lactic Acid Diego (0.7-2.0) mmol/L Calcium 7.7 L (8.4-10.2) mg/dL AST 13 L (14-36) U/L Total Protein 5.0 L (6.3-8.2) g/dL Albumin 2.7 L (3.5-5.0) g/dL Crossmatch See Detail 05/19/19 Range/Units 09:10 WBC (3.8-10.6) k/uL RBC (3.80-5.40) m/uL Hgb (11.4-16.0) gm/dL Hct (34.0-46.0) % RDW (11.5-15.5) % Plt Count (150-450) k/uL Neutrophils # (1.3-7.7) k/uL Potassium (3.5-5.1) mmol/L BUN (7-17) mg/dL Glucose (74-99) mg/dL Plasma Lactic Acid Diego 2.3 H* (0.7-2.0) mmol/L Calcium (8.4-10.2) mg/dL AST (14-36) U/L Total Protein (6.3-8.2) g/dL Albumin (3.5-5.0) g/dL Crossmatch Thrombosis Risk Factor Assmnt - Choose All That Apply Any of the Below Risk Factors Present?: Yes Each Factor Represents 1 point: Obesity (BMI >25), Serious lung disease incl. pneumonia (< 1month) Other Risk Factors: Yes Each Risk Factor Represents 2 Points: Age 61-74 years, Malignancy Other congenital or acquired thrombophilia - If yes, enter type in comment: No Thrombosis Risk Factor Assessment Total Risk Factor Score: 6 Thrombosis Risk Factor Assessment Level: High Risk Assessment and Plan Assessment: Pancytopenia Bilateral pulmonary infiltrates Elevated lactic acid Dehydration and generalized weakness Acute hypoxemic respiratory failure CLL With leukocytosis. on Therapy Recent history of acute lung injury, related to multiple blood/platelet transfusion, with possible pneumonia History of breast cancer in 2014 status post chemo/radiation and surgery. Currently on anastrozole Hypertension Hyperlipidemia Osteoarthritis Previous history of smoking DVT prophylaxis with SCDs Plan: This is a pleasant 73 years old female who presents with pancytopenia and review of her CLL or therapy, also she has multiple lung infiltrates. We'll transfuse blood and follow-up lactic acid. Continue with antibiotics. Hold laxative. Check stool for C. diff. Hold chemotherapy medication and check with hematology team. We'll consult hematology/oncology team, we'll ask pulmonary team to evaluate the patient.Labs and medication were reviewed.. Continue same treatment. Continue with symptomatic treatment. Resume home medication. Monitor lytes and vitals. DVT and GI prophylaxis. Further recommendations of the clinical course of the patient DVT prophylaxis: No anticoagulation in the view of low platelets GI Prophylaxis: Pepcid PT/OT: Pending Prognosis is guarded
[2019-05-19] MEDS: FILGRASTIM-SNDZ 480 MCG/0.8 ML SYRINGE SQ SCH (14:21)
--- NOTE | 2019-05-19 14:27 | CDI ---
Documentation Clarification Form Date: 05/20/2019 2:07:09 PM From: Jazmyne Proctor RN CCDS Admit Date: 05/19/2019 10:49:00 AM Patient Name: Angeli Ascencio Visit Number: [id number] Discharge Date: ATTENTION: The Clinical Documentation Specialists (CDI) and [facility] Coding Staff appreciate your assistance in clarifying documentation. Please respond to the clarification below the line at the bottom and electronically sign. The CDI & [facility] Coding staff will review the response and follow-up if needed. Please note: Queries are made part of the Legal Health Record. If you have any questions, please contact the author of this message via ITS. Dr. Kang Sheet The patient was admitting with a diagnosis of Pancytopenia documented in your H & P History/Risk factors: 73 year old female presents to the ED with low Hgb and Platelets. She has received several transfusions and has minimal improvement Clinical indicators: Labs: Wbc 3.0; Hgb 6.6; Plt 2.0 , Lactic 2.3; Treatment: Platelets, blood transfusion , holding chemotherapy Consult: Heme Oncology In your professional opinion, can you please clarify if these findings signify one of the following conditions? * Pancytopenia due to chemotherapy * Pancytopenia drug induced, specify drug * Pancytopenia due to other, please specify * Other condition, please specify ____ * Unable to determine (Last Revision: July 2017) pancytopenia , multifactor for her sepsis , cancer and possible drug effect MTDD
--- NOTE | 2019-05-19 14:43 | P.CONS ---
History of Present Illness - Reason for Consult Consult date: 05/19/19 CLL- Severe pancytopenia Requesting physician: Kashif Strickland - Chief Complaint Diarrhea, low platlets - History of Present Illness Ms. Ascencio is 73-year-old white female, well known to myself with a very completed past medical history. She has a history of breast cancer diagnosed in 2013, treated with surgery, , as well as chemotherapy and radiation. She has since been on anastrozole without evidence of recurrence. After completion of chemotherapy of breast cancer she was noted to have increasing WBC with lymphocytosis with flow cytometry confirming CLL. The patient was initially on observation with slow increase in WBC but no symptoms. In late 2017, she devel oped severe anemia due to GI bleed. On EGD she was found to have an ulcerated mass in the stomach with biopsy positive for gastrointestinal stromal tumor. She underwent surgery in 10/01 with complete resection. Adjuvant Gleevec was recommended. However the patient at this time developed increasing lymphadenopathy and increase in WBC due to which she received Rituxan weekly 4, with good response, in 12/03. She was then started on Gleevec for her GI ST adjuvantly. The patient was seen in the office about 2 months ago where she appeared to be stable, with good tolerance of her anastrozole, as well as the back, and no evidence of CLL progression. She called the office on 04/25/19, complaining of a rash in her skin that was reddish in color and appeared to be petechial by description. In addition about a week prior she had developed the cracked 2 and had undergone capping. She has subsequently noted development of blood blisters on her gums, as well as on the edges of her tongue. She was asked to come into the office for a blood draw. Her CBC in the office showed a platelet count of 1000. In addition hemoglobin dropped into the 8 range, while WBC had increased into the 50,000 range with predominant lymphocytes and ANC actually less than 1000. 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 The case was discussed with the emergency room physician and the patient was sent in to the ER to receive platelet transfusions and steroids. She was subsequently admitted for further management. This resulted in a prolonged hospital stay with transfusions, prophylaxic abx, and close monitoring. She also received two treatments of Rituxan last was 05.14.19. During this last hospital stay she was refractory to platelet transfusions and crossmatched platlets were ordered. She did respond as her platlet count did increse to over 20K after transfusion for platlet of 6. She was subsequently discharged last week 05.15.19, scheduled to receive outpatient crossmatched platelets on Sunday05.16.19. Although over the weekend she states she became weaker and weaker. She was unable to eat or drink much, she had episodes of diarrhea, subjective fevers and chills. No s/s active bleeding. She represented to emergency and found to have Neutrophils 0.1, platlet 2, Hemoglobin 6.6, K = 3.1. She has now been admitted, supportive transfusions ordered, and electrolyte supplements. Review of Systems A 14 point review of systems was assessed and completed and are all negative except for HPI Past Medical History Past Medical History: Blood Disorder, Cancer, Hyperlipidemia, Hypertension, Osteoarthritis (OA), Pneumonia, Sleep Apnea/CPAP/BIPAP Additional Past Medical History / Comment(s): Pt recently admitted to [facility] on 04/25/19 with acute hypoxic respiratory failure 2ndary to acute lung injury r/t blood/platelet transfusions. Other hx: CLL, low platelets, anemia, thrombocytopenia/ptechial rash, neutropenia, current cold sores, 2014 R breast cancer with lumpectomy/chemo/radiation, CÉSAR with Cpap. History of Any Multi-Drug Resistant Organisms: None Reported Past Surgical History: Bladder Surgery, Breast Surgery, Joint Replacement, Tubal Ligation, Uterine Ablation Additional Past Surgical History / Comment(s): 04/29/19 BMA with bx, R breast lumpectomy, bladder suspension, several D&Cs, colonoscopy. Past Anesthesia/Blood Transfusion Reactions: Postoperative Nausea & Vomiting (PONV) Additional Past Anesthesia/Blood Transfusion Reaction / Comm: Pt has received blood/platelets without reaction. Smoking Status: Former smoker - Past Family History Father Family Medical History: Cancer Additional Family Medical History / Comment(s): Father had lung cancer. He was a nonsmoker. Sister(s) Family Medical History: Cancer Additional Family Medical History / Comment(s): Youngest sister has lung cancer that has metastasized to her liver Mother Family Medical History: Coronary Artery Disease (CAD) Additional Family Medical History / Comment(s): Mother of a [place] at the age of 96yrs. Medications and Allergies Home Medications Medication Instructions Recorded Confirmed Type Anastrozole [Arimidex] 1 mg PO DAILY 03/28/16 05/19/19 History amLODIPine [Norvasc] 5 mg PO BID 03/28/16 05/19/19 History Pantoprazole Sodium [Protonix] 40 mg PO BID #60 tablet. 04/27/16 05/19/19 Rx Allopurinol [Zyloprim] 300 mg PO DAILY 04/25/19 05/19/19 History Atorvastatin [Lipitor] 40 mg PO HS 04/25/19 05/19/19 History Docusate [Colace] 100 mg PO DAILY 04/25/19 05/19/19 History Ferrous Sulfate [Iron (65 MG 325 mg PO DAILY 04/25/19 05/19/19 History Elemental)] Imatinib Mesylate [Gleevec] 400 mg PO DAILY 04/25/19 05/19/19 History valACYclovir [Valtrex] 1,000 mg PO BID #60 tab 05/15/19 05/19/19 Rx Allergies Allergy/AdvReac Type Severity Reaction Status Date / Time No Known Allergies Allergy Verified 05/19/19 08:50 Physical Exam Vitals: Vital Signs Temp Pulse Resp BP Pulse Ox 05/19/19 14:19 99 F 96 19 126/59 93 L 05/19/19 14:09 99 F 86 18 125/61 93 L 05/19/19 11:09 98.8 F 05/19/19 11:08 96 05/19/19 10:30 59 L 20 120/64 87 L 05/19/19 10:00 52 L 22 88 L 05/19/19 09:35 22 05/19/19 09:30 106/52 05/19/19 09:18 96 22 106/52 95 05/19/19 08:32 98.3 F 101 H 18 98/65 96 Intake and Output 05/18/19 05/19/19 05/19/19 22:59 06:59 14:59 Intake Total 0 Balance 0 Intake: Blood Product 0 Platelet Irr Pheresis 2 0 Acda Unit [id number] Other: Weight 98.883 kg General: Alert and Oriented x3, No Acute Distress Head: Normocytic, Atraumatic Neck: Supple Mouth: Herpetic lesions to lips Eyes: Non-sclerotic No Palpable cervical, supraclavicular, axillary adenopathy Heart: Tachy Lungs: Clear to Ausculations, No Wheeze, No Rhonchi, Diminishe bilateral lower lobes, No increased respiratory effort noted Abdomen: Soft, Non-Distended, Non-Tended, BSx4 Extremities: petechaie rash Results CBC & Chem 7: 05/19/19 09:10 05/19/19 09:10 Labs: Abnormal Lab Results - Last 24 Hours (Table) 05/19/19 05/19/19 05/19/19 Range/Units 09:03 09:10 09:10 WBC 3.0 L (3.8-10.6) k/uL RBC 2.10 L (3.80-5.40) m/uL Hgb 6.6 L* D (11.4-16.0) gm/dL Hct 19.3 L* (34.0-46.0) % RDW 16.3 H (11.5-15.5) % Plt Count 2 L* D (150-450) k/uL Neutrophils # 0.1 L* (1.3-7.7) k/uL Potassium 3.1 L (3.5-5.1) mmol/L BUN 24 H (7-17) mg/dL Glucose 206 H (74-99) mg/dL Plasma Lactic Acid Diego (0.7-2.0) mmol/L Calcium 7.7 L (8.4-10.2) mg/dL AST 13 L (14-36) U/L Total Protein 5.0 L (6.3-8.2) g/dL Albumin 2.7 L (3.5-5.0) g/dL Crossmatch See Detail 05/19/19 Range/Units 09:10 WBC (3.8-10.6) k/uL RBC (3.80-5.40) m/uL Hgb (11.4-16.0) gm/dL Hct (34.0-46.0) % RDW (11.5-15.5) % Plt Count (150-450) k/uL Neutrophils # (1.3-7.7) k/uL Potassium (3.5-5.1) mmol/L BUN (7-17) mg/dL Glucose (74-99) mg/dL Plasma Lactic Acid Diego 2.3 H* (0.7-2.0) mmol/L Calcium (8.4-10.2) mg/dL AST (14-36) U/L Total Protein (6.3-8.2) g/dL Albumin (3.5-5.0) g/dL Crossmatch Assessment and Plan Plan: CLL - Treatment with single agent monoclonal antibody (Rituxan) initiated inpatient on 05/07/19 - due to patient' s critical condition and instability requiring ongoing hospitalization. - Patient's total white blood cell count is down to 11 from the 40 range. Her absolute lymphocyte count iis responding as well - Monitor CBC with differential and CMP, Uric acid, LDH, Coags Labs daily - Daily follow up Pancytopenia: Neutropenia - Febrile neutropenia resolved - Persistent, felt to be related to CLL. - Crossmatched platlets re-ordered and transfusion today for plt = 2 - Transfuse for platelet <10,000 or if symptomatic. - NO ASA, NSAIDs, anticoagulation, ibuprofen or motrin. - Hemoglobin 6.6 today, irradiated PRBC given - Re-panculture - Acyclovir - HErpetic lip lesions - ZaRXIO SIRS/Sepsis: - ID CONSULT Acute Hypoxic Respiratory Failure: - Pulm following Hx: Breast Cancer: - Continue on Arimidex. 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, no treatment at this time HSV Lips Mucocytisis: - Kools solution - Valtrex Hypokalemia: - Supp today monitor closely Diarrhea: - Stool studies ordered
[2019-05-19] MEDS ORDERED: Potassium Replacement Protocol 1 EACH MISC MISCELLANE PRN (14:58)
[2019-05-19] MEDS: POTASSIUM CHLORIDE 20 MEQ in WATER FOR INJECTION 1 100ML.BAG IVPB SCH ×3 (16:13→20:46)
--- NOTE | 2019-05-19 17:39 | CONS ---
CONSULTATION PULMONARY/CRITICAL CARE CONSULTATION: DATE OF CONSULTATION: 05/19/2019 This is a 73-year-old female whom we were asked to see because of abnormal chest x-ray. She presented to the emergency department with the chief complaints of low hemoglobin and low platelets. She has a history of chronic lymphocytic leukemia and previously was on rituximab for that. She was recently in the hospital for a number of days for low blood counts and also at that time had received multiple blood transfusions and likely developed transfusion-related acute lung injury. For a number of days she was in the intensive care unit on high-flow oxygen therapy. Anyway, she apparently presented to the emergency room with a hemoglobin of 6.7 and a platelet count of 2000. The patient denies any respiratory issues at this time. She is on a couple of liters of oxygen. Her chest x-ray done in the emergency room compared to her previous recent CT scan and recent chest x-ray shows no changes. She admits that she is not having any respiratory difficulty at all and denies any cough, wheezing, shortness of breath, phlegm production, etc. In addition to the above, the patient has a history of congestive heart failure with diastolic dysfunction, moderate mitral regurgitation and mild aortic stenosis with moderate pulmonary hypertension, right breast cancer with previous lumpectomy and chemotherapy with radiation, hypertension, hyperlipidemia, former tobacco use and severe sleep apnea syndrome. CURRENT MEDICATIONS: Her current medications include: 1. Arimidex. 2. Norvasc. 3. Zyloprim. 4. Lipitor. 5. Colace. 6. Ferrous sulfate. 7. Gleevec. 8. Protonix. 9. Valtrex. ALLERGIES: DENIED. MEDICAL HISTORY: Medical history includes: 1. CLL. 2. Hyperlipidemia. 3. Hypertension. 4. DJD. 5. Pneumonia. 6. Transfusion-related acute lung injury. 7. Breast cancer with previous lumpectomy, chemo and radiation therapy. 8. Pancytopenia. 9. Valvular heart disease in the form of moderate mitral regurgitation and mild aortic stenosis. 10.Pulmonary hypertension. 11.Diastolic heart failure. SURGICAL HISTORY: Her surgical history includes: 1. Bladder surgery. 2. Lumpectomy. 3. Joint replacement. 4. Tubal ligation. 5. Uterine ablation. 6. Right total knee arthroplasty. 7. Right breast lumpectomy. 8. Bladder suspension. 9. Several D&Cs. SOCIAL HISTORY: Positive for previous tobacco use. She does not smoke currently. It appears that her total tobacco use was relatively small. She denies any alcohol or illicit drug use. FAMILY HISTORY: Positive for cancer in her mother, father and sister. She could not remember the types of cancer they had. REVIEW OF SYSTEMS: CONSTITUTIONAL: Negative. NEUROLOGIC: Negative. HEENT: Negative. CARDIOVASCULAR: Negative. PULMONARY: Negative. GI: Negative. : Negative. RHEUMATOLOGIC: Negative. IMMUNOLOGIC: Negative. ENDOCRINOLOGIC: Negative. DERMATOLOGIC: Negative. HEMATOLOGIC: Low hemoglobin and platelet count as previously outlined. PHYSICAL EXAMINATION: VITAL SIGNS: Current vital signs are reviewed. Temperature is 98.8, heart rate 59, respiratory rate 20, blood pressure 120/64, mean 82, saturations 96% on a couple liters. GENERAL: Appears in no acute distress. HEENT: HEENT examination is grossly unremarkable. She has some dried blood on her lower lips. Nasal oxygen in place. NECK: Supple. Full range of motion. No adenopathy or thyromegaly. Neck veins are flat. CARDIOVASCULAR: Cardiovascular examination reveals regular rhythm and rate. Heart sounds are distant. Heart rate about 65 beats per minute. S1, S2 normal. No murmur. LUNGS: Lungs reveal mostly clear breath sounds. No wheezes or rhonchi. No crackles. ABDOMEN: Obese. Bowel sounds are heard. EXTREMITIES: Intact. No edema. SKIN: Dry. NEUROLOGIC: Neurologic examination is brief but nonfocal. LABS/IMAGING: Labs are reviewed. White count 3, hemoglobin 6.6, hematocrit 19.3, platelet count 2000. PT/INR and PTT normal. Sodium 138, potassium 3.1, chloride 104 CO2 22. Anion gap is 12. BUN and creatinine were 24 and 0.92. Glucose 206. Lactic acid 2.3. Calcium 7.7. AST 13, ALT 31. Albumin 2.7. Chest x-ray shows diffuse bilateral infiltrates. She has a persistent lateral left mid lung airspace opacity and one in the right mid lung as well. These infiltrates persist and are similar to or less than what was seen on previous chest x-ray dated May 13, 2019, and previous CT scan dated May 04, 2019. Medications are reviewed. Everything seems to be appropriate. They do currently have her on vancomycin. It was ordered by the ER. She also was given a dose of Maxipime, but that has been discontinued. ASSESSMENT: 1. Bilateral infiltrates, unchanged, in a patient without acute respiratory compromise at this time. 2. Severe pancytopenia. 3. Recent episode of pneumonia with sepsis. 4. History of CLL, with recent treatment with Rituxan in November 2018. 5. Acute diastolic heart failure. 6. Moderate mitral regurgitation and mild aortic stenosis. 7. Mild to moderate pulmonary hypertension. 8. Right breast cancer, status post lumpectomy followed by chemotherapy and radiation. 9. History of hypertension. 10.History of hyperlipidemia. 11.Previous history of tobacco use. 12.Severe sleep apnea syndrome. PLAN: The patient's pulmonary status is stable. No additional recommendations are made at this time. Will follow as necessary. If her respiratory status should decline, please let us know. The last time she received blood transfusions, she had an acute lung injury consistent with transfusion-related acute lung injury. Additional recommendations and suggestions are forthcoming. Prognosis is guarded. MMODL / IJN: [id number] /
[2019-05-19] MEDS ORDERED: ACETAMINOPHEN IV (For NPO) 1,000 MG in EMPTY BAG 1 BAG IVPB ONE (18:00)
[2019-05-19] MEDS ORDERED: RX INFO: IV CONTRAST WAS GIVEN 1 EACH MISC MISCELLANE PRN (18:09)
[2019-05-19 18:54] LABS: MCH 30.1 pg (25.0-35.0); MCHC 32.8 g/dL (31.0-37.0); MCV 91.9 fL (80.0-100.0); Mean Platelet Volume 8.7; RBC 1.84 m/uL (3.80-5.40); RDW 15.2 % (11.5-15.5)
[2019-05-19 19:02] LABS: HCT 16.9 % (34.0-46.0); HGB 5.6 gm/dL (11.4-16.0); WBC 1.2 k/uL (3.8-10.6)
[2019-05-19 19:22] LABS: Uric Acid 2.3 mg/dL (3.7-7.4)
[2019-05-19 19:29] LABS: Anisocytosis (M) Present; Hypochromasia (M) Present; Platelet Count 6 k/uL (150-450); Stomatocytes Present
[2019-05-19 19:32] LABS: D-Dimer 3.63 mg/L FEU (<0.60); Partial Thromboplastin Time 27.5 sec (22.0-30.0); Prothrombin Time 10.8 sec (9.0-12.0)
[2019-05-19] MEDS: CEFEPIME 2 GM in SODIUM CHLORIDE 0.9% 100 ML IVPB SCH (20:45)
[2019-05-19 21:02] LABS: Glucose,Whole Blood 164 mg/dL (75-99)
--- NOTE | 2019-05-19 21:08 | CT ---
EXAMINATION TYPE: CT ChestAbdPelvis w con DATE OF EXAM: 05/19/2019 COMPARISON: 05/04/2019 CT HISTORY: Hypoxia, possible bleed. History of breast carcinoma and CLL CT DLP: 1840.1 mGycm. Automated exposure control for dose reduction was used. CONTRAST: CT scan of the chest, abdomen and pelvis is performed without Oral Contrast and with IV Con trast, patient injected with 100 mL of Isovue 300. FINDINGS: AIRWAYS: Negative. LUNGS: The previously seen dense pulmonary consolidations in the upper and mid lateral lung zones are redemonstrated, though they are smaller in overall volume than the prior study. MEDIASTINUM: The coronary arterial tree is negative for filling defects to suggest pulmonary embolism . No acute aortic findings. Mild cardiomegaly without pericardial effusion, but with prominent left a nd right coronary calcifications. Moderately confluent bilateral hilar lymph is similar when compared to the prior study. OTHER: Bilateral breast and axillary findings are unchanged. LIVER/GB: No acute findings. Cholelithiasis redemonstrated. PANCREAS: No significant abnormality is seen. SPLEEN: No significant abnormality is seen. ADRENALS: No significant abnormality is seen. KIDNEYS: No acute findings. BOWEL: The proximal sigmoid show sequential mural thickening and moderate indistinctness with edemat ous reticulation within the surrounding sigmoid mesocolon. Tiny extraluminal gas limited to the peris igmoid mesocolon. These changes are consistent with diverticulitis. PERITONEAL CAVITY: No pneumoperitoneum or peritoneal fluid. REPRODUCTIVE ORGANS: No gross abnormality seen. LYMPH NODES: No greater than 1 cm abdominal or pelvic lymph nodes are appreciated. URINARY BLADDER: Moderately distended. OSSEOUS STRUCTURES: No significant abnormality is seen. VASCULATURE: No acute findings. IMPRESSION: CHEST: Similar findings when compared to the prior study; no new process. ABDOMEN-PELVIS: SIGMOID DIVERTICULITIS, MODERATE DEGREE. Moderately distended urinary bladder.
[2019-05-19] MEDS: ATORVASTATIN 40 MG TAB PO SCH (21:57)
[2019-05-19] MEDS: PANTOPRAZOLE 40 MG TABLET PO SCH (21:57)
[2019-05-19] MEDS: valACYclovir HCL 1,000 MG TABLET PO SCH (21:57)
[2019-05-19] MEDS ORDERED: NALOXONE 0.4 MG/ML 1 ML VIAL IV PRN (23:24)
[2019-05-19 23:53] LABS: Glucose,Whole Blood 161 mg/dL (75-99)
[2019-05-20] MEDS: SODIUM CHLORIDE 0.9% 1,000 ML IV SCH ×2 (00:14→11:58)
[2019-05-20] MEDS ORDERED: VANCOMYCIN 1,500 MG in SODIUM CHLORIDE 0.9% 250 ML IVPB SCH ×2 (02:00→14:00)
[2019-05-20] MEDS: CEFEPIME 2 GM in SODIUM CHLORIDE 0.9% 100 ML IVPB SCH ×2 (05:24→17:08)
[2019-05-20 05:49] LABS: MCH 30.5 pg (25.0-35.0); MCHC 33.4 g/dL (31.0-37.0); MCV 91.4 fL (80.0-100.0); Mean Platelet Volume 7.1; RBC 2.19 m/uL (3.80-5.40); RDW 15.5 % (11.5-15.5); WBC 1.6 k/uL (3.8-10.6)
[2019-05-20 05:52] LABS: HGB 6.7 gm/dL (11.4-16.0); Platelet Count 3 k/uL (150-450)
[2019-05-20 05:54] LABS: Appearance,Urine Clear (Clear); Bacteria,Urine Rare /hpf; Bilirubin,Urine Negative (Negative); Blood,Urine Small (Negative); Color,Urine Yellow; Glucose,Urine (UA) Negative (Negative); Ketones,Urine Negative (Negative); Leukocyte Esterase,Urine Negative (Negative); Mucus,Urine Rare /hpf; Nitrite,Urine Negative (Negative); Protein,Urine 1+ (Negative); RBC,Urine 38 /hpf (0-5); Urobilinogen,Urine <2.0 mg/dL (<2.0)
[2019-05-20 06:06] LABS: Potassium 3.8 mmol/L (3.5-5.1)
[2019-05-20 06:07] LABS: Albumin 2.4 g/dL (3.5-5.0); Calcium 7.1 mg/dL (8.4-10.2); Magnesium 1.9 mg/dL (1.6-2.3); Phosphorus 3.6 mg/dL (2.5-4.5); Total Bilirubin 1.1 mg/dL (0.2-1.3); Total Protein 4.5 g/dL (6.3-8.2)
[2019-05-20 06:20] LABS: Band Neutrophils % 4 %; Lymphocytes # (M) 1.54 k/uL (1.0-4.8); Nucleated Red Blood Cells 0 /100 WBC (0-0); Total Cells Counted 100
[2019-05-20 06:57] LABS: Glucose,Whole Blood 128 mg/dL (75-99)
[2019-05-20] MEDS: PANTOPRAZOLE 40 MG TABLET PO SCH ×2 (06:58→17:08)
[2019-05-20] MEDS: INSULIN ASPART (NovoLOG) 100 UNIT/ML VIAL SQ SCH ×4 (06:58→20:28)
[2019-05-20] MEDS: ALLOPURINOL 300 MG TAB PO SCH (08:12)
[2019-05-20] MEDS: valACYclovir HCL 1,000 MG TABLET PO SCH ×2 (08:12→20:32)
--- NOTE | 2019-05-20 08:21 | XR ---
EXAMINATION TYPE: XR chest 1V DATE OF EXAM: 05/20/2019 COMPARISON: 05/19/2019 HISTORY: Cough and pain TECHNIQUE: Single frontal view of the chest is obtained. FINDINGS: Heart is enlarged and there is a Mediport catheter. Diffuse bilateral infiltrates and pleu ral effusion. No pneumothorax. IMPRESSION: 1. Diffuse bilateral infiltrates and left-sided pleural effusion. Correlate for pneumonia versus pulm onary edema. Follow to resolution to exclude underlying neoplasm
[2019-05-20] MEDS: guaiFENesin SYRUP 100MG/5ML 200 MG/10 ML CUP PO PRN ×2 (08:27→23:05)
[2019-05-20] MEDS: FILGRASTIM-SNDZ 480 MCG/0.8 ML SYRINGE SQ SCH (08:27)
--- NOTE | 2019-05-20 10:22 | P.PN ---
Subjective Progress Note Date: 05/20/19 Principal diagnosis: CLL Thrombocytopenia Spoke to RN overnight, Added cefepime. SOB and concern hemoptysis. CT chest neg. Blood cultures did result this am with Gram neg bacilli. Objective - Vital Signs Vital signs: Vital Signs Temp 98.5 F 05/20/19 04:00 Pulse 86 05/20/19 06:30 Resp 21 05/20/19 06:30 BP 122/59 05/20/19 06:30 Pulse Ox 94 L 05/20/19 06:30 Intake & Output 05/19/19 05/19/19 05/20/19 06:59 18:59 06:59 Intake Total 900 1320 Output Total 2065 Balance 900 -745 Weight 98.883 kg 100.7 kg Intake: IV 700 Sodium Chloride 0.9% 1, 450 000 ml @ 75 mls/hr IV . [id number] [facility] Rx#:[id number] Vancomycin 1,500 mg In 250 Sodium Chloride 0.9% 250 ml @ 125 mls/hr IVPB ONCE ONE Rx#:[id number] Intake, IV Titration 400 Amount Sodium Chloride 0.9% 1, 150 000 ml @ 75 mls/hr IV . [id number] [facility] Rx#:[id number] Vancomycin 1,500 mg In 250 Sodium Chloride 0.9% 250 ml @ 125 mls/hr IVPB Q16H [facility] Rx#:[id number] Oral 200 Blood Product 300 620 Platelet Irr Pheresis 2 300 Acda Unit [id number] Rc Irr As1 Unit 310 [id number] Rc Irr As1 Unit 0 [id number] Output: Urine 2065 Other: Voiding Method Toilet Indwelling Catheter Bedside Commode - Exam General: Alert and Oriented x3, No Acute Distress Head: Normocytic, Atraumatic Neck: Supple Mouth: scabbed herpetic lesions lips Eyes: Non-sclerotic No Palpable cervical, supraclavicular, axillary adenopathy Heart: Tachy Lungs: Diminished expiratory wheeze Abdomen: Soft, Non-Distended, Non-Tended, BSx4 Extremities:lower ex folet DD, petechaie rash. Neurological: No Focal Defects: No sensory or motor deficits noted Psych: Calm and cooperative - Labs CBC & Chem 7: 05/20/19 05:32 05/20/19 05:32 Labs: Abnormal Lab Results - Last 24 Hours (Table) 05/19/19 05/19/19 05/19/19 Range/Units 09:03 09:10 09:10 WBC 3.0 L (3.8-10.6) k/uL RBC 2.10 L (3.80-5.40) m/uL Hgb 6.6 L* D (11.4-16.0) gm/dL Hct 19.3 L* (34.0-46.0) % RDW 16.3 H (11.5-15.5) % Plt Count 2 L* D (150-450) k/uL Neutrophils # 0.1 L* (1.3-7.7) k/uL Fibrinogen (200-500) mg/dL D-Dimer (<0.60) mg/L FEU Sodium (137-145) mmol/L Potassium 3.1 L (3.5-5.1) mmol/L Carbon Dioxide (22-30) mmol/L BUN 24 H (7-17) mg/dL Glucose 206 H (74-99) mg/dL POC Glucose (mg/dL) (75-99) mg/dL Plasma Lactic Acid Diego (0.7-2.0) mmol/L Uric Acid (3.7-7.4) mg/dL Calcium 7.7 L (8.4-10.2) mg/dL AST 13 L (14-36) U/L Total Protein 5.0 L (6.3-8.2) g/dL Albumin 2.7 L (3.5-5.0) g/dL Procalcitonin (0.02-0.09) ng/mL Ur Specific [place] (1.001-1.035) Urine Protein (Negative) Urine Blood (Negative) Urine RBC (0-5) /hpf Urine Bacteria (None) /hpf Urine Mucus (None) /hpf Crossmatch See Detail 05/19/19 05/19/19 05/19/19 Range/Units 09:10 18:30 18:30 WBC 1.2 L* (3.8-10.6) k/uL RBC 1.84 L (3.80-5.40) m/uL Hgb 5.6 L* (11.4-16.0) gm/dL Hct 16.9 L* (34.0-46.0) % RDW (11.5-15.5) % Plt Count 6 L* D (150-450) k/uL Neutrophils # (1.3-7.7) k/uL Fibrinogen (200-500) mg/dL D-Dimer (<0.60) mg/L FEU Sodium (137-145) mmol/L Potassium (3.5-5.1) mmol/L Carbon Dioxide (22-30) mmol/L BUN (7-17) mg/dL Glucose (74-99) mg/dL POC Glucose (mg/dL) (75-99) mg/dL Plasma Lactic Acid Diego 2.3 H* (0.7-2.0) mmol/L Uric Acid (3.7-7.4) mg/dL Calcium (8.4-10.2) mg/dL AST (14-36) U/L Total Protein (6.3-8.2) g/dL Albumin (3.5-5.0) g/dL Procalcitonin 1.46 H (0.02-0.09) ng/mL Ur Specific [place] (1.001-1.035) Urine Protein (Negative) Urine Blood (Negative) Urine RBC (0-5) /hpf Urine Bacteria (None) /hpf Urine Mucus (None) /hpf Crossmatch 05/19/19 05/19/19 05/19/19 Range/Units 18:30 18:30 21:01 WBC (3.8-10.6) k/uL RBC (3.80-5.40) m/uL Hgb (11.4-16.0) gm/dL Hct (34.0-46.0) % RDW (11.5-15.5) % Plt Count (150-450) k/uL Neutrophils # (1.3-7.7) k/uL Fibrinogen 800 H (200-500) mg/dL D-Dimer 3.63 H (<0.60) mg/L FEU Sodium (137-145) mmol/L Potassium (3.5-5.1) mmol/L Carbon Dioxide (22-30) mmol/L BUN (7-17) mg/dL Glucose (74-99) mg/dL POC Glucose (mg/dL) 164 H (75-99) mg/dL Plasma Lactic Acid Diego (0.7-2.0) mmol/L Uric Acid 2.3 L (3.7-7.4) mg/dL Calcium (8.4-10.2) mg/dL AST (14-36) U/L Total Protein (6.3-8.2) g/dL Albumin (3.5-5.0) g/dL Procalcitonin (0.02-0.09) ng/mL Ur Specific [place] (1.001-1.035) Urine Protein (Negative) Urine Blood (Negative) Urine RBC (0-5) /hpf Urine Bacteria (None) /hpf Urine Mucus (None) /hpf Crossmatch 05/19/19 05/20/19 05/20/19 Range/Units 23:06 05:22 05:32 WBC 1.6 L (3.8-10.6) k/uL RBC 2.19 L (3.80-5.40) m/uL Hgb 6.7 L* (11.4-16.0) gm/dL Hct 20.0 L (34.0-46.0) % RDW (11.5-15.5) % Plt Count 3 L* (150-450) k/uL Neutrophils # (1.3-7.7) k/uL Fibrinogen (200-500) mg/dL D-Dimer (<0.60) mg/L FEU Sodium (137-145) mmol/L Potassium (3.5-5.1) mmol/L Carbon Dioxide (22-30) mmol/L BUN (7-17) mg/dL Glucose (74-99) mg/dL POC Glucose (mg/dL) 161 H (75-99) mg/dL Plasma Lactic Acid Diego (0.7-2.0) mmol/L Uric Acid (3.7-7.4) mg/dL Calcium (8.4-10.2) mg/dL AST (14-36) U/L Total Protein (6.3-8.2) g/dL Albumin (3.5-5.0) g/dL Procalcitonin (0.02-0.09) ng/mL Ur Specific [place] 1.050 H (1.001-1.035) Urine Protein 1+ H (Negative) Urine Blood Small H (Negative) Urine RBC 38 H (0-5) /hpf Urine Bacteria Rare H (None) /hpf Urine Mucus Rare H (None) /hpf Crossmatch 05/20/19 Range/Units 05:32 WBC (3.8-10.6) k/uL RBC (3.80-5.40) m/uL Hgb (11.4-16.0) gm/dL Hct (34.0-46.0) % RDW (11.5-15.5) % Plt Count (150-450) k/uL Neutrophils # (1.3-7.7) k/uL Fibrinogen (200-500) mg/dL D-Dimer (<0.60) mg/L FEU Sodium 136 L (137-145) mmol/L Potassium (3.5-5.1) mmol/L Carbon Dioxide 20 L (22-30) mmol/L BUN 30 H (7-17) mg/dL Glucose 125 H (74-99) mg/dL POC Glucose (mg/dL) (75-99) mg/dL Plasma Lactic Acid Diego (0.7-2.0) mmol/L Uric Acid (3.7-7.4) mg/dL Calcium 7.1 L (8.4-10.2) mg/dL AST (14-36) U/L Total Protein 4.5 L (6.3-8.2) g/dL Albumin 2.4 L (3.5-5.0) g/dL Procalcitonin (0.02-0.09) ng/mL Ur Specific [place] (1.001-1.035) Urine Protein (Negative) Urine Blood (Negative) Urine RBC (0-5) /hpf Urine Bacteria (None) /hpf Urine Mucus (None) /hpf Crossmatch Microbiology - Last 24 Hours (Table) 05/19/19 09:10 Blood Culture Gram Stain - Preliminary Blood 05/19/19 09:10 Blood Culture - Final Blood Assessment and Plan Plan: CLL - Treatment with single agent monoclonal antibody (Rituxan) initiated inpatient on 05/07/19 - due to patient' s critical condition and instability requiring ongoing hospitalization. - Patient's total white blood cell count is down to 11 from the 40 range. Her absolute lymphocyte count iis responding as well - Monitor CBC with differential and CMP, Uric acid, LDH, Coags Labs daily - Daily follow up Pancytopenia: Neutropenia - Febrile neutropenia resolved - Persistent, felt to be related to CLL. - Crossmatched platlets re-ordered and transfusion needed today - Transfuse for platelet <10,000 or if symptomatic. - NO ASA, NSAIDs, anticoagulation, ibuprofen or motrin. - Hemoglobin under 7 today, irradiated PRBC given - Re-panculture - Acyclovir - HErpetic lip lesions - ZaRXIO SIRS/Sepsis: Gram Negative Bacilli Blood Cultures - Cefepime added - ID CONSULT Acute Hypoxic Respiratory Failure: - Pulm following Hx: Breast Cancer: - Continue on Arimidex. 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 - Continue Abx, await ID Recs - Continue ICU supportive Care - Await Crossmatched Platlets and transfuse when available Physician Attestation: I have performed the full physical examination and reviewed the full history of this patient, as well as pertinent findings. I have created the compled impression and recommendations. I agree with the above dict ation by FADY Bowens. This dictation has been written as a scribe.
--- NOTE | 2019-05-20 10:36 | PN ---
PROGRESS NOTE This is a pulmonary/critical care progress note. DATE OF SERVICE: May 20, 2019 This is a 73-year-old female well known to our service. We were asked to see her because of an abnormal chest x-ray. The patient was actually admitted to the hospital because on blood analysis, she was found to have a 2000 platelet count and a very low hemoglobin. She really did not have any pulmonary complaints at that time. She does have a history of chronic lymphocytic leukemia and currently receiving chemotherapy in the form of both rituximab and Gleevec. The patient was recently in the hospital and received multiple blood transfusions and I believe developed transfusion related acute lung injury (TRALI). The patient was admitted to the floor and was doing relatively well when we saw her yesterday. Sometime last night, the nurses were concerned about her respiratory status. Apparently that really did not change though. The patient just felt overwhelmingly weak and there were some concerns about sepsis. The patient apparently had some chills and maybe had a temperature elevation. Anyway, although it was a very light transfer from the floor to the ICU, she was transferred to the ICU for further evaluation and management. Currently, she is on O2 at 3 L per nasal cannula. Her IV saline at 75 mL an hour. She is getting vancomycin and cefepime. Her blood cultures were positive for gram-negative bacilli. The patient has received 2 units of PRBCs and one six-pack of platelets or will receive one six-pack of platelets. Anyway, again, the patient does not admit to any respiratory issues at this time. She does have a history in addition to CLL of congestive heart failure with diastolic dysfunction, valvular heart disease in the form of moderate mitral regurgitation and mild aortic stenosis, pulmonary hypertension, right breast cancer with previous lumpectomy and chemo/radiation therapy, hypertension, hyperlipidemia, and former tobacco use along with severe sleep apnea syndrome. PHYSICAL EXAMINATION: VITAL SIGNS: Current vital signs are reviewed. Temperature is 98.6, heart rate 89, respiratory rate 22, blood pressure 131/69, mean 89, saturations are 94%. This is on a couple of liters. She appears in no acute distress. She does not look any different really than she did yesterday. HEENT: Examination is grossly unremarkable. Her lips are dry. Mucous membranes are dry. NECK: Supple. Full range of motion. No adenopathy or thyromegaly. Neck veins are flat. CARDIOVASCULAR: Examination reveals regular rhythm and rate. Heart rate 89. S1, S2 normal. LUNGS: Reveal a few scattered mild rhonchi. No wheezes or crackles. Breath sounds equal. ABDOMEN: Soft. Bowel sounds are heard. EXTREMITIES: Are intact. No cyanosis, clubbing, or edema. SKIN: Without rash. NEUROLOGIC: Examination is brief but nonfocal. LAB DATA: Lab data is reviewed. White count 1.6, hemoglobin 6.7, hematocrit 20, and platelet count 3000. Sodium 136, potassium 3.8, chloride 107, CO2 of 20. Anion gap is 9. BUN and creatinine were 30 and 0.78. The rest of the labs look okay. Blood cultures from 05/19 show gram-negative bacilli. It has not been identified as yet. CT of the chest, abdomen and pelvis done yesterday shows no changes in the chest findings as compared to prior CT scan and x-rays of the chest. In the abdomen and pelvis, there was some evidence of sigmoid diverticula to a moderate degree. The CT scans really not impressive. Chest x-rays have been reviewed. MEDICATIONS: Current medications are reviewed. She is receiving vancomycin and Valtrex along with cefepime. In addition, she is receiving filgrastim, i.e. Zarxio. ASSESSMENT: 1. Bilateral infiltrates, unchanged, both on chest x-ray and CT scan, in a patient without acute respiratory compromise or significant respiratory symptoms at this time. 2. Severe pancytopenia secondary to chemotherapy. 3. Recent episode of pneumonia with sepsis. 4. History of chronic lymphocytic leukemia with recent rituximab treatment. 5. Acute diastolic heart failure. 6. Moderate mitral regurgitation and mild aortic stenosis. 7. Mild to moderate pulmonary hypertension. 8. Right breast cancer, status post lumpectomy followed by concurrent chemotherapy and radiation. 9. History of hypertension. 10.Hyperlipidemia. 11.Previous history of tobacco use. 12.Severe sleep apnea syndrome. 13.Recent admission and development of transfusion related acute lung injury(TRALI), secondary to packed red blood cell transfusions. PLAN: Currently, the patient is very stable. Honestly, the patient did not need in my opinion to come back to the ICU. Her respiratory status is stable. Chest x-ray is unchanged. CT scan of the chest, abdomen, pelvis is unimpressive. She likely does have gram-negative sepsis because of her leukopenia. She does have significant pancytopenia. That is being followed by Hematology/Oncology. She has received 2 units of PRBCs and one 6-pack of platelets. She remains on vancomycin and cefepime. Prognosis is guarded. We will continue to watch for another day or so here in the ICU. CRITICAL CARE TIME: 32 minutes. CHRISTIANL / MILLYN: [id number] /
--- NOTE | 2019-05-20 11:57 | P.PN ---
Subjective this Is a 73-year-old female with a known history of hypertension, hyperlipidemia and CLL and history of breast cancer in 2014 status post chemoradiation and surgery who is currently being treated for CLL with imatinab and is on follow-up with Dr. Oliva as an outpatient was sent to Hospital due to thrombocytopenia. Next a 2 been discharged from the hospital she got platelet and blood transfusion at hematology office, however patient was developing diarrhea about 3 times per day with no significant abdominal pain for about one week, associated with generalized weakness and malaise and dry cough for 3 days with no significant dyspnea or chest pain. Patient went for her hematology office follow-up today and her blood work showed slow platelet count and patient was sent to the hospital. Also on the hospital patient was put back on oxygen, she was discharged on room air last time. Patient was recently discharged from hospital 4 days ago for acute lung injury and possible pneumonia, related to multiple blood/platelet transfusion and was treated in the ICU, after stabilization she was discharged. Also at that time patient has pancytopenia, and the discharge age her white cell count was 11.7 K, hemoglobin 8.1 and platelet 18 K. This time hematology oncology team send the patient to emergency room for pancytopenia with WBC 3.0K, hemoglobin 6.6 and platelet 2K. INR is 1.0, potassium of 3.1, creatinine 0.9, and lactic acid is elevated at 2.3. On admission patient has been afebrile, Restoril Vitas looks stable, she was saturating 87-88% on room air, saturation went up to 96 and 3 L. Chest x-ray: Showing cardiomegaly with bilateral multifocal infiltrates. Patient is getting IV fluids at 100 L/h, also she supposed to get platelets and blood transfusion today, discussed with staff. Also patient was started on vancomycin and cefepime. 05/20/2019 Patient yesterday was hypotensive and tachypneic and she was saturating 93-97% on 3 L oxygen, Cipro concerned that her more fluid so patient was transferred to the intensive care unit. today is more awake and, however she is tachypneic with respiratory rate 22-25, blood pressure is improved to 114/70, she saturating 93-94% and is related to her, she had fever of 103.3 yesterday. Labs from today showing slight improvement in his WBC at 1.6K, hemoglobin improved to 6.7, platelets 3K. Sodium 136, creatinine normal at 0.7, sugar control. Patient remains in the ICU with on antibiotics in the form of vancomycin and cefepime is provided to the patient. Chest x-ray showing diffuse bilateral infiltrate with left pleural effusion, pneumonia versus pulmonary edema. Objective - Vital Signs Vital signs: Vital Signs Temp 98.6 F 05/20/19 08:14 Pulse 80 05/20/19 11:00 Resp 24 05/20/19 11:00 BP 114/70 05/20/19 11:00 Pulse Ox 94 L 05/20/19 11:00 Intake & Output 05/19/19 05/20/19 05/20/19 18:59 06:59 18:59 Intake Total 900 1780 535 Output Total 2215 300 Balance 900 -435 235 Weight 98.883 kg 100.7 kg 100.7 kg Intake: IV 850 225 Sodium Chloride 0.9% 1, 600 225 000 ml @ 75 mls/hr IV . [id number] [facility] Rx#:[id number] Vancomycin 1,500 mg In 250 Sodium Chloride 0.9% 250 ml @ 125 mls/hr IVPB ONCE ONE Rx#:[id number] Intake, IV Titration 400 Amount Sodium Chloride 0.9% 1, 150 000 ml @ 75 mls/hr IV . [id number] [facility] Rx#:[id number] Vancomycin 1,500 mg In 250 Sodium Chloride 0.9% 250 ml @ 125 mls/hr IVPB Q16H [facility] Rx#:[id number] Oral 200 Blood Product 300 930 310 Platelet Irr Pheresis 2 300 Acda Unit [id number] Rc Irr As1 Unit 310 [id number] Rc Irr As1 Unit 0 310 [id number] Output: Urine 2215 300 Other: Voiding Method Toilet Indwelling Catheter Indwelling Catheter Bedside Commode - Exam -GENERAL: The patient is alert and oriented x3, not in any acute distress. Pale and weak HEENT: Pupils are round and equally reacting to light. EOMI. No scleral icterus. No conjunctival pallor. Normocephalic, atraumatic. No pharyngeal erythema. No thyromegaly. CARDIOVASCULAR: S1 and S2 present. No murmurs, rubs, or gallops. PULMONARY: Chest is clear to auscultation, no wheezing or crackles. ABDOMEN: Soft, nontender, nondistended, normoactive bowel sounds. No palpable organomegaly. MUSCULOSKELETAL: No joint swelling or deformity. EXTREMITIES: No cyanosis, clubbing, or pedal edema. NEUROLOGICAL: Gross neurological examination did not reveal any focal deficits. SKIN: No rashes. - Labs CBC & Chem 7: 05/20/19 05:32 05/20/19 05:32 Labs: Abnormal Lab Results - Last 24 Hours (Table) 05/19/19 05/19/19 05/19/19 Range/Units 09:03 09:10 18:30 WBC (3.8-10.6) k/uL RBC (3.80-5.40) m/uL Hgb (11.4-16.0) gm/dL Hct 19.3 L* (34.0-46.0) % Plt Count (150-450) k/uL Fibrinogen (200-500) mg/dL D-Dimer (<0.60) mg/L FEU Sodium (137-145) mmol/L Carbon Dioxide (22-30) mmol/L BUN (7-17) mg/dL Glucose (74-99) mg/dL POC Glucose (mg/dL) (75-99) mg/dL Uric Acid (3.7-7.4) mg/dL Calcium (8.4-10.2) mg/dL Total Protein (6.3-8.2) g/dL Albumin (3.5-5.0) g/dL Procalcitonin 1.46 H (0.02-0.09) ng/mL Ur Specific [place] (1.001-1.035) Urine Protein (Negative) Urine Blood (Negative) Urine RBC (0-5) /hpf Urine Bacteria (None) /hpf Urine Mucus (None) /hpf Crossmatch See Detail 05/19/19 05/19/19 05/19/19 Range/Units 18:30 18:30 18:30 WBC 1.2 L* (3.8-10.6) k/uL RBC 1.84 L (3.80-5.40) m/uL Hgb 5.6 L* (11.4-16.0) gm/dL Hct 16.9 L* (34.0-46.0) % Plt Count 6 L* D (150-450) k/uL Fibrinogen 800 H (200-500) mg/dL D-Dimer 3.63 H (<0.60) mg/L FEU Sodium (137-145) mmol/L Carbon Dioxide (22-30) mmol/L BUN (7-17) mg/dL Glucose (74-99) mg/dL POC Glucose (mg/dL) (75-99) mg/dL Uric Acid 2.3 L (3.7-7.4) mg/dL Calcium (8.4-10.2) mg/dL Total Protein (6.3-8.2) g/dL Albumin (3.5-5.0) g/dL Procalcitonin (0.02-0.09) ng/mL Ur Specific [place] (1.001-1.035) Urine Protein (Negative) Urine Blood (Negative) Urine RBC (0-5) /hpf Urine Bacteria (None) /hpf Urine Mucus (None) /hpf Crossmatch 05/19/19 05/19/19 05/20/19 Range/Units 21:01 23:06 05:22 WBC (3.8-10.6) k/uL RBC (3.80-5.40) m/uL Hgb (11.4-16.0) gm/dL Hct (34.0-46.0) % Plt Count (150-450) k/uL Fibrinogen (200-500) mg/dL D-Dimer (<0.60) mg/L FEU Sodium (137-145) mmol/L Carbon Dioxide (22-30) mmol/L BUN (7-17) mg/dL Glucose (74-99) mg/dL POC Glucose (mg/dL) 164 H 161 H (75-99) mg/dL Uric Acid (3.7-7.4) mg/dL Calcium (8.4-10.2) mg/dL Total Protein (6.3-8.2) g/dL Albumin (3.5-5.0) g/dL Procalcitonin (0.02-0.09) ng/mL Ur Specific [place] 1.050 H (1.001-1.035) Urine Protein 1+ H (Negative) Urine Blood Small H (Negative) Urine RBC 38 H (0-5) /hpf Urine Bacteria Rare H (None) /hpf Urine Mucus Rare H (None) /hpf Crossmatch 05/20/19 05/20/19 05/20/19 Range/Units 05:32 05:32 06:54 WBC 1.6 L (3.8-10.6) k/uL RBC 2.19 L (3.80-5.40) m/uL Hgb 6.7 L* (11.4-16.0) gm/dL Hct 20.0 L (34.0-46.0) % Plt Count 3 L* (150-450) k/uL Fibrinogen (200-500) mg/dL D-Dimer (<0.60) mg/L FEU Sodium 136 L (137-145) mmol/L Carbon Dioxide 20 L (22-30) mmol/L BUN 30 H (7-17) mg/dL Glucose 125 H (74-99) mg/dL POC Glucose (mg/dL) 128 H (75-99) mg/dL Uric Acid (3.7-7.4) mg/dL Calcium 7.1 L (8.4-10.2) mg/dL Total Protein 4.5 L (6.3-8.2) g/dL Albumin 2.4 L (3.5-5.0) g/dL Procalcitonin (0.02-0.09) ng/mL Ur Specific [place] (1.001-1.035) Urine Protein (Negative) Urine Blood (Negative) Urine RBC (0-5) /hpf Urine Bacteria (None) /hpf Urine Mucus (None) /hpf Crossmatch Microbiology - Last 24 Hours (Table) 05/19/19 09:10 Blood Culture Gram Stain - Preliminary Blood 05/19/19 09:10 Blood Culture - Final Blood Assessment and Plan Assessment: Pancytopenia Bilateral pulmonary infiltrates Elevated lactic acid Dehydration and generalized weakness Acute hypoxemic respiratory failure CLL With leukocytosis. on Therapy Recent history of acute lung injury, related to multiple blood/platelet transfusion, with possible pneumonia History of breast cancer in 2014 status post chemo/radiation and surgery. Currently on anastrozole Hypertension Hyperlipidemia Osteoarthritis Previous history of smoking DVT prophylaxis with SCDs Plan: This is a pleasant 73 years old female who presents with pancytopenia and review of her CLL or therapy, also she has multiple lung infiltrates. We'll transfuse blood and follow-up lactic acid. Continue with antibiotics. Hold laxative. Check stool for C. diff. Hold chemotherapy medication and check with hematology team. We'll consult hematology/oncology team, we'll ask pulmonary team to evaluate the patient.Labs and medication were reviewed.. Continue same treatment. Continue with symptomatic treatment. Resume home medication. Monitor lytes and vitals. DVT and GI prophylaxis. Further recommendations of the clinical course of the patient DVT prophylaxis: No anticoagulation in the view of low platelets GI Prophylaxis: Pepcid PT/OT: Pending Prognosis is guarded
[2019-05-20 12:29] LABS: Glucose,Whole Blood 166 mg/dL (75-99)
[2019-05-20] MEDS: MAG HYDROX/AL HYDROX/SIMETH 30 ML, LIDOCAINE VISCOUS 30 ML, diphenhydrAMINE ELIXIR 75 M... PO PRN ×4 (14:15)
[2019-05-20 16:58] LABS: Glucose,Whole Blood 180 mg/dL (75-99)
[2019-05-20] MEDS ORDERED: ACETAMINOPHEN IV (For NPO) 1,000 MG in EMPTY BAG 1 BAG IVPB STA (18:00)
[2019-05-20] MEDS: ATORVASTATIN 40 MG TAB PO SCH (20:32)
[2019-05-20 21:02] LABS: Glucose,Whole Blood 128 mg/dL (75-99)
--- NOTE | 2019-05-20 23:19 | P.CONS ---
History of Present Illness - Reason for Consult Consult date: 05/20/19 Fever and bacteremia Requesting physician: Tomy Oliva - Chief Complaint Fever 1 day - History of Present Illness Patient is a 73-year-old female with past medical history significant for CLL in this patient who did have a prolonged hospital stay the patient was a dmitted for appropriate code subsequently did have a fever with concern for possible transfusion reaction was pneumonia patient was subsequently stabilized and discharged home patient did have a blood work done in outpatient setting which she was noticed to have a hemoglobin is 6.7 and platelet count of 2 subsequently the patient was in hospital for management and transfusion patient was afebrile and her main symptom was a generalized weakness and no energy the patient did have some dry hacking cough which has been mild to moderate intensity not bringing up any sputum the patient had denies choking on the food though she did have some difficulty swallowing and her also has been slowly improving denies having abdominal pain and no diarrhea subsequently the patient did receive blood transfusion and did develop a fever of 10 3F patient did have blood culture drawn which are now coming positive for pseudomonas she's she's been treated with cefepime and vancomycin and infectious disease was consulted for further recommendation regarding antibiotic therapy which and was transferred down to the ICU because of her fever had concern for possible sepsis Review of Systems Positive points has been mentioned in HPI rest of the systems are negative Past Medical History Past Medical History: Blood Disorder, Cancer, Hyperlipidemia, Hypertension, Osteoarthritis (OA), Pneumonia, Sleep Apnea/CPAP/BIPAP Additional Past Medical History / Comment(s): Pt recently admitted to [facility] on 04/25/19 with acute hypoxic respiratory failure 2ndary to acute lung injury r/t blood/platelet transfusions. Other hx: CLL, low platelets, anemia, thrombocytopenia/ptechial rash, neutropenia, current cold sores, 2014 R breast cancer with lumpectomy/chemo/radiation, CÉSAR with Cpap. History of Any Multi-Drug Resistant Organisms: None Reported Past Surgical History: Bladder Surgery, Breast Surgery, Joint Replacement, Tubal Ligation, Uterine Ablation Additional Past Surgical History / Comment(s): 04/29/19 BMA with bx, R breast lumpectomy, bladder suspension, several D&Cs, colonoscopy. Past Anesthesia/Blood Transfusion Reactions: Postoperative Nausea & Vomiting (PONV) Additional Past Anesthesia/Blood Transfusion Reaction / Comm: Pt has received blood/platelets without reaction. Smoking Status: Former smoker - Past Family History Father Family Medical History: Cancer Additional Family Medical History / Comment(s): Father had lung cancer. He was a nonsmoker. Sister(s) Family Medical History: Cancer Additional Family Medical History / Comment(s): Youngest sister has lung cancer that has metastasized to her liver Mother Family Medical History: Coronary Artery Disease (CAD) Additional Family Medical History / Comment(s): Mother of a RI at the age of 96yrs. Medications and Allergies Home Medications Medication Instructions Recorded Confirmed Type Anastrozole [Arimidex] 1 mg PO DAILY 03/28/16 05/19/19 History amLODIPine [Norvasc] 5 mg PO BID 03/28/16 05/19/19 History Pantoprazole Sodium [Protonix] 40 mg PO BID #60 tablet. 04/27/16 05/19/19 Rx Allopurinol [Zyloprim] 300 mg PO DAILY 04/25/19 05/19/19 History Atorvastatin [Lipitor] 40 mg PO HS 04/25/19 05/19/19 History Docusate [Colace] 100 mg PO DAILY 04/25/19 05/19/19 History Ferrous Sulfate [Iron (65 MG 325 mg PO DAILY 04/25/19 05/19/19 History Elemental)] valACYclovir [Valtrex] 1,000 mg PO BID #60 tab 05/15/19 05/19/19 Rx Allergies Allergy/AdvReac Type Severity Reaction Status Date / Time chocolate flavor Allergy hives Verified 05/19/19 16:33 Physical Exam Vitals: Vital Signs Temp Pulse Pulse Resp BP BP Pulse Ox 05/20/19 16:00 98.6 F 80 28 H 128/63 94 L 05/20/19 15:00 80 22 125/63 93 L 05/20/19 14:00 79 22 122/58 94 L 05/20/19 13:00 80 26 H 123/67 95 05/20/19 12:00 98.6 F 83 22 106/56 95 05/20/19 11:00 80 24 114/70 94 L 05/20/19 10:22 93 L 05/20/19 10:00 84 25 H 122/58 94 L 05/20/19 09:00 89 22 111/48 94 L 05/20/19 08:14 98.6 F 89 22 131/69 94 L 05/20/19 08:00 98.6 F 87 22 124/63 95 05/20/19 07:10 98.6 F 90 22 131/69 94 L 05/20/19 07:00 86 23 126/58 94 L 05/20/19 06:40 99 F 75 18 120/75 95 05/20/19 06:30 86 21 122/59 94 L 05/20/19 06:00 83 21 133/63 94 L 05/20/19 05:00 79 22 122/59 95 05/20/19 04:00 98.5 F 75 18 111/52 94 L 05/20/19 03:00 76 19 113/58 94 L 05/20/19 02:15 75 21 116/75 94 L 05/20/19 02:00 74 23 106/53 95 05/20/19 01:45 70 18 106/53 96 05/20/19 01:30 71 17 111/48 96 05/20/19 01:15 71 18 111/48 96 05/20/19 01:00 98.2 F 73 18 108/51 97 05/20/19 00:45 74 17 108/51 96 05/20/19 00:30 75 18 110/52 96 05/20/19 00:15 98.4 F 75 16 110/55 95 05/20/19 00:00 75 18 110/57 95 05/19/19 23:45 76 18 110/57 94 L 05/19/19 23:30 98 F 79 16 108/58 91 L 05/19/19 23:15 79 16 108/58 96 05/19/19 23:00 77 29 H 95 05/19/19 22:55 98.4 F 78 21 94/50 93 L 05/19/19 20:53 97.6 F 05/19/19 19:58 100.2 F H 86 20 92/46 95 05/19/19 19:35 98.8 F 92 21 95/48 97 05/19/19 18:00 103.3 F H 05/19/19 17:06 102.8 F H 110 H 20 102/59 94 L Intake and Output 05/20/19 05/20/19 05/20/19 06:59 14:59 22:59 Intake Total 1780 835 75 Output Total 2215 355 125 Balance -435 480 -50 Intake: IV 850 525 75 Sodium Chloride 0.9% 1, 600 525 75 000 ml @ 75 mls/hr IV . [id number] [facility] Rx#:[id number] Vancomycin 1,500 mg In 250 Sodium Chloride 0.9% 250 ml @ 125 mls/hr IVPB ONCE ONE Rx#:[id number] Blood Product 930 310 Rc Irr As1 Unit 310 [id number] Rc Irr As1 Unit 0 310 [id number] Output: Urine 2215 355 125 Other: Voiding Method Indwelling Catheter Indwelling Catheter Indwelling Catheter Weight 100.7 kg 100.7 kg GENERAL DESCRIPTION: An daily female lying in bed, no distress. No tachypnea or accessory muscle of respiration use. HEENT: Shows Pallor , no scleral icterus. Oral mucous membrane is dry. Dry crusted lesion on the lower lip NECK: Trachea central, no thyromegaly. LUNGS: Unlabored breathing. Decreased breath sound at the base. No wheeze or crackle. HEART: S1, S2, regular rate and rhythm. No loud murmur ABDOMEN: Soft, no tenderness , guarding or rigidity, no organomegaly EXTREMITIES: No edema of feet. SKIN: No rash, no masses palpable. NEUROLOGICAL: The patient is awake, alert, oriented x3, mood and affect normal. Results CBC & Chem 7: 05/20/19 05:32 05/20/19 05:32 Labs: Abnormal Lab Results - Last 24 Hours (Table) 05/19/19 05/19/19 05/19/19 Range/Units 09:03 18:30 18:30 WBC 1.2 L* (3.8-10.6) k/uL RBC 1.84 L (3.80-5.40) m/uL Hgb 5.6 L* (11.4-16.0) gm/dL Hct 16.9 L* (34.0-46.0) % Plt Count 6 L* D (150-450) k/uL Fibrinogen (200-500) mg/dL D-Dimer (<0.60) mg/L FEU Sodium (137-145) mmol/L Carbon Dioxide (22-30) mmol/L BUN (7-17) mg/dL Glucose (74-99) mg/dL POC Glucose (mg/dL) (75-99) mg/dL Uric Acid (3.7-7.4) mg/dL Calcium (8.4-10.2) mg/dL Total Protein (6.3-8.2) g/dL Albumin (3.5-5.0) g/dL Procalcitonin 1.46 H (0.02-0.09) ng/mL Ur Specific Clyde (1.001-1.035) Urine Protein (Negative) Urine Blood (Negative) Urine RBC (0-5) /hpf Urine Bacteria (None) /hpf Urine Mucus (None) /hpf Crossmatch See Detail 05/19/19 05/19/19 05/19/19 Range/Units 18:30 18:30 21:01 WBC (3.8-10.6) k/uL RBC (3.80-5.40) m/uL Hgb (11.4-16.0) gm/dL Hct (34.0-46.0) % Plt Count (150-450) k/uL Fibrinogen 800 H (200-500) mg/dL D-Dimer 3.63 H (<0.60) mg/L FEU Sodium (137-145) mmol/L Carbon Dioxide (22-30) mmol/L BUN (7-17) mg/dL Glucose (74-99) mg/dL POC Glucose (mg/dL) 164 H (75-99) mg/dL Uric Acid 2.3 L (3.7-7.4) mg/dL Calcium (8.4-10.2) mg/dL Total Protein (6.3-8.2) g/dL Albumin (3.5-5.0) g/dL Procalcitonin (0.02-0.09) ng/mL Ur Specific Clyde (1.001-1.035) Urine Protein (Negative) Urine Blood (Negative) Urine RBC (0-5) /hpf Urine Bacteria (None) /hpf Urine Mucus (None) /hpf Crossmatch 05/19/19 05/20/19 05/20/19 Range/Units 23:06 05:22 05:32 WBC 1.6 L (3.8-10.6) k/uL RBC 2.19 L (3.80-5.40) m/uL Hgb 6.7 L* (11.4-16.0) gm/dL Hct 20.0 L (34.0-46.0) % Plt Count 3 L* (150-450) k/uL Fibrinogen (200-500) mg/dL D-Dimer (<0.60) mg/L FEU Sodium (137-145) mmol/L Carbon Dioxide (22-30) mmol/L BUN (7-17) mg/dL Glucose (74-99) mg/dL POC Glucose (mg/dL) 161 H (75-99) mg/dL Uric Acid (3.7-7.4) mg/dL Calcium (8.4-10.2) mg/dL Total Protein (6.3-8.2) g/dL Albumin (3.5-5.0) g/dL Procalcitonin (0.02-0.09) ng/mL Ur Specific [place]de 1.050 H (1.001-1.035) Urine Protein 1+ H (Negative) Urine Blood Small H (Negative) Urine RBC 38 H (0-5) /hpf Urine Bacteria Rare H (None) /hpf Urine Mucus Rare H (None) /hpf Crossmatch 05/20/19 05/20/19 05/20/19 Range/Units 05:32 06:54 11:53 WBC (3.8-10.6) k/uL RBC (3.80-5.40) m/uL Hgb (11.4-16.0) gm/dL Hct (34.0-46.0) % Plt Count (150-450) k/uL Fibrinogen (200-500) mg/dL D-Dimer (<0.60) mg/L FEU Sodium 136 L (137-145) mmol/L Carbon Dioxide 20 L (22-30) mmol/L BUN 30 H (7-17) mg/dL Glucose 125 H (74-99) mg/dL POC Glucose (mg/dL) 128 H 166 H (75-99) mg/dL Uric Acid (3.7-7.4) mg/dL Calcium 7.1 L (8.4-10.2) mg/dL Total Protein 4.5 L (6.3-8.2) g/dL Albumin 2.4 L (3.5-5.0) g/dL Procalcitonin (0.02-0.09) ng/mL Ur Specific Clyde (1.001-1.035) Urine Protein (Negative) Urine Blood (Negative) Urine RBC (0-5) /hpf Urine Bacteria (None) /hpf Urine Mucus (None) /hpf Crossmatch Microbiology - Last 24 Hours (Table) 05/19/19 09:10 Blood Culture Gram Stain - Preliminary Blood Blood Culture - Preliminary Pseudomonas aeruginosa 05/19/19 09:10 Blood Culture - Final Blood Assessment and Plan Assessment: 1-patient is a 73 year female with CLL admitted hospital with no pedal count and low hemoglobin in this patient subsequently spiking a fever while getting blood transfusion and now do have evidence of pseudomonas aeruginosa bacteremia in this patient. Up-to-date respiratory symptoms possible pneumonia to the source of this bacteremia this patient currently with no abdominal pain no tenderness and no urinary symptoms to suspicious for the source of this bacteremia and the patient do not have a port Plan: 1-blood cultures will be repeated to document clearance of bacteremia 2-cefepime 2 g every 12 hours doses being adjusted her kidney function 3-discontinue the vancomycin as no gram-positive has been grown we will follow on clinical condition and culture to further adjust medication if needed Thank you for this consultation will follow this patient along with you Time with Patient: Greater than 30
[2019-05-21] MEDS: SODIUM CHLORIDE 0.9% 1,000 ML IV SCH (05:26)
[2019-05-21] MEDS: CEFEPIME 2 GM in SODIUM CHLORIDE 0.9% 100 ML IVPB SCH ×3 (05:30→22:57)
[2019-05-21] MEDS: SODIUM CHLORIDE 0.9% 500 ML 500 ML IV SCH (05:31)
[2019-05-21] MEDS: INSULIN ASPART (NovoLOG) 100 UNIT/ML VIAL SQ SCH ×4 (07:01→21:32)
[2019-05-21 07:02] LABS: Glucose,Whole Blood 118 mg/dL (75-99)
[2019-05-21 07:31] LABS: Anisocytosis Slight; HGB 7.2 gm/dL (11.4-16.0); MCH 31.5 pg (25.0-35.0); MCHC 34.1 g/dL (31.0-37.0); MCV 92.4 fL (80.0-100.0); Mean Platelet Volume 9.3; RBC 2.28 m/uL (3.80-5.40); RDW 16.4 % (11.5-15.5)
[2019-05-21 07:42] LABS: Platelet Count 6 k/uL (150-450)
[2019-05-21 07:43] LABS: WBC 0.6 k/uL (3.8-10.6)
[2019-05-21 07:46] LABS: ALT 75 U/L (9-52); AST 21 U/L (14-36); African American GFR (CKD) >90 (>60 ml/min/1.73 sqM); Albumin 2.3 g/dL (3.5-5.0); Alkaline Phosphatase 54 U/L (38-126); Anion Gap 9 mmol/L; Blood Urea Nitrogen 21 mg/dL (7-17); Calcium 6.7 mg/dL (8.4-10.2); Carbon Dioxide 19 mmol/L (22-30); Chloride 109 mmol/L (98-107); Glucose 105 mg/dL (74-99); Potassium 3.6 mmol/L (3.5-5.1); Sodium 137 mmol/L (137-145); Total Bilirubin 1.3 mg/dL (0.2-1.3); Total Protein 4.5 g/dL (6.3-8.2)
[2019-05-21] MEDS: PANTOPRAZOLE 40 MG TABLET PO SCH ×2 (08:35→17:19)
[2019-05-21] MEDS: FILGRASTIM-SNDZ 480 MCG/0.8 ML SYRINGE SQ SCH (08:35)
[2019-05-21] MEDS: ALLOPURINOL 300 MG TAB PO SCH (08:36)
[2019-05-21] MEDS: valACYclovir HCL 1,000 MG TABLET PO SCH ×2 (08:36→22:57)
[2019-05-21 08:41] LABS: Poikilocytosis (M) Present
--- NOTE | 2019-05-21 08:53 | XR ---
EXAMINATION TYPE: XR chest 1V DATE OF EXAM: 05/21/2019 COMPARISON: Prior chest x-ray 05/20/2019 HISTORY: Pneumonia TECHNIQUE: Single frontal view of the chest is obtained. FINDINGS: Heart is enlarged. Retrocardiac density with obscured left hemidiaphragm persists. Perihil ar airspace disease is again noted. No evident pneumothorax. Patient is rotated. Port-A-Cath is stabl e. There are overlying cardiac leads. Aorta is dense. IMPRESSION: Bilateral airspace disease, correlate for congestive heart failure versus possibly pneum onia. There may be associated basilar effusion.
--- NOTE | 2019-05-21 09:20 | PN ---
PROGRESS NOTE PULMONARY/CRITICAL CARE PROGRESS NOTE: DATE OF SERVICE: 05/21/2019 This is a 73-year-old female well known to our service. We are asked to see her for an abnormal chest x-ray. She was actually admitted to the hospital because her platelet count was low and her hemoglobin was low. Anyway, the patient was not having any major pulmonary complaints at the time we saw her in consultation. She does have a history of chronic lymphocytic leukemia and currently was receiving chemotherapy. She has been on both rituximab and Gleevec. The patient was recently in the hospital with multiple blood transfusions and I believe developed some transfusion related acute lung injury (TRALI). The patient was admitted to the floor when we saw her in consultation a couple days ago. She was not having any respiratory difficulties at all. She was transferred to the ICU because of concerns of the nurses on the floor that she was deteriorating. In fact, she had been very stable. Currently, she remains on 3 L nasal cannula. Her IV saline at 75 mL an hour. The IV can be turned down to KVO. Her blood cultures did show evidence of Pseudomonas. She is currently on cefepime and vancomycin. ID is on for consultation. Since he has been here, she has received 2 units of PRBCs and a 6 pack of platelets. Other than that, she is doing reasonably well. She denies any respiratory issues at this time. No pain or difficulty breathing. The patient does have a history of CLL, in addition to CHF with diastolic dysfunction, valvular heart disease, both moderate mitral regurgitation and mild aortic stenosis, pulmonary hypertension, right breast cancer with previous lumpectomy and chemo/radiation therapy, benign essential hypertension, hyperlipidemia, and sleep apnea syndrome, which is quite severe. PHYSICAL EXAMINATION: Current vital signs are reviewed. Her temperature is 98.4, heart rate 73, respiratory rate 15, blood pressure 136/70, mean 92, 3 L saturation is 94%. She appears in no acute distress. No respiratory distress. HEENT: Examination is grossly unremarkable. Mucous membranes are moist. NECK: Supple. Full range of motion. No adenopathy or thyromegaly. Neck veins are flat. CARDIOVASCULAR: Examination reveals regular rhythm and rate. S1, S2 normal. No S3, S4, or murmur. Lungs reveals a few scattered rhonchi. No wheezes or crackles. Breath sounds are diminished. ABDOMEN: Soft. Bowel sounds are heard. EXTREMITIES are intact. No cyanosis, clubbing or any significant edema. SKIN: Without rash. NEUROLOGIC: Examination is nonfocal. LABORATORY DATA: Currently not yet back. Her last white count was 1.6. Her last hemoglobin 6.7, hematocrit 20, and platelet count 3000. Microbiology showing evidence of Pseudomonas aeruginosa. The MICs are not yet back. Chest x-ray has been stable. The most recent chest. X-RAY: Chest x-ray shows some bilateral infiltrates which appear to be relatively stable. Medications are reviewed. Currently, in terms of antibiotics, she is just on cefepime. ASSESSMENT: 1. Bilateral infiltrates, unchanged, stable, with no evidence of any respiratory difficulty or duration. 2. Severe pancytopenia, secondary to chemotherapy. 3. Recent episode of pneumonia with sepsis. 4. History of chronic lymphocytic leukemia with recent range of his recent rituximab treatment. 5. Acute diastolic heart failure. 6. Moderate mitral regurgitation and mild aortic stenosis. 7. Mild to moderate pulmonary hypertension. 8. Right breast cancer, status post lumpectomy followed by concurrent chemo radiation. 9. History of hypertension. 10.Hyperlipidemia. 11.Previous history of tobacco use. 12.Sleep apnea syndrome. 13.Recent admission to the hospital with development of acute lung injury after the blood transfusion (transfusion and in parentheses T are a high T are a coli). PLAN: The patient continues to do reasonably well. Will await for the results of the blood tests morning. She is still severely pancytopenic. Her Pseudomonas is currently being treated with cefepime. ID will weigh in as to whether not to change the antibiotic. We will wait for sensitivities. Her overall respiratory status remains stable. Hemodynamic status is stable. Will continue to follow. Prognosis is guarded. MMODL / IJN: [id number] /
[2019-05-21] MEDS: traMADol 50 MG TAB PO PRN (11:16)
[2019-05-21] MEDS: guaiFENesin SYRUP 100MG/5ML 200 MG/10 ML CUP PO PRN (11:16)
[2019-05-21 11:58] LABS: Glucose,Whole Blood 151 mg/dL (75-99)
--- NOTE | 2019-05-21 12:14 | PN ---
PROGRESS NOTE DATE OF SERVICE: 05/21/2019 REASON FOR FOLLOWUP: Pseudomonas aeruginosa bacteremia with concern for MediPort drainage versus pneumonia. INTERVAL HISTORY: The patient is currently afebrile. She is still complaining of shortness of breath. She did have a dry hacking cough, but not bringing up any sputum. The patient did have some slight difficulty in swallowing. No nausea, no vomiting. Denies have some lower ribcage pain, but no lower abdominal pain. No diarrhea or constipation. PHYSICAL EXAMINATION: Blood pressure 123/60 with a pulse of 73, temperature 98.2, she is 95% on 3 L nasal cannula. General description is an elderly female, lying in bed in no distress. HEENT: Examination of pallor, oral mucosa is moist with minimal thrush. The herpetic lesion on the lower mid palate currently encrusting out. LUNGS: Unlabored breathing with decreased breath sounds at the bases, no wheeze. HEART: S1, S2. Regular rate and rhythm. ABDOMEN: Soft, no tenderness. No guarding or rigidity. LABS: Hemoglobin 7.8, white count of 0.6, BUN of 21, creatinine 0.52. Sensitivity of pseudomonas is currently pending. DIAGNOSTIC IMPRESSION AND PLAN: Patient with episodes of fever with Pseudomonas bacteremia and this patient did have some respiratory symptoms, but no worsening finding on the x-ray has been noticed. The question of source possibly the MediPort. Blood culture will be repeated from the port and peripherally. Patient to continue cefepime, dose has been adjusted to 2 g q.8 hours in view of neutropenia and antibiotics were adjusted for the culture report. Continue supportive care. MMODL / IJN: [id number] / KARRIE
[2019-05-21] MEDS ORDERED: VANCOMYCIN TROUGH DUE 1 EACH MISC MISCELLANE ONE (13:00)
--- NOTE | 2019-05-21 13:15 | P.PN ---
Subjective Progress Note Date: 05/21/19 Principal diagnosis: CLL Thrombocytopenia Platelets are 6 again today. T Max 24 hours 100.3. Blood Cultures positive Psedomonas Aeroginosa, ID is following Objective - Vital Signs Vital signs: Vital Signs Temp 98.2 F 05/21/19 09:00 Pulse 73 05/21/19 11:00 Resp 27 H 05/21/19 11:00 BP 123/60 05/21/19 11:00 Pulse Ox 95 05/21/19 11:00 Intake & Output 05/20/19 05/21/19 05/21/19 18:59 06:59 18:59 Intake Total 1135 1110 275 Output Total 655 950 335 Balance 480 160 -60 Weight 100.7 kg 105.3 kg Intake: IV 825 900 175 Sodium Chloride 0.9% 1, 825 900 175 000 ml @ 75 mls/hr IV . [id number] [facility] Rx#:[id number] Oral 100 Blood Product 310 210 Platelet Irr Pheresis 2 0 210 Acda Unit [id number] Rc Irr As1 Unit 310 [id number] Output: Urine 655 950 335 Other: Voiding Method Indwelling Catheter Indwelling Catheter Indwelling Catheter - Exam General: Alert and Oriented x3, No Acute Distress Head: Normocytic, Atraumatic Neck: Supple Mouth: scabbed herpetic lesions lips Eyes: Non-sclerotic No Palpable cervical, supraclavicular, axillary adenopathy Heart: Tachy Lungs: Diminished expiratory wheeze Abdomen: Soft, Non-Distended, Non-Tended, BSx4 Extremities:lower ex folet DD, petechaie rash. Neurological: No Focal Defects: No sensory or motor deficits noted Psych: Calm and cooperative - Labs CBC & Chem 7: 05/23/19 07:47 05/23/19 07:47 Labs: Abnormal Lab Results - Last 24 Hours (Table) 05/20/19 05/20/19 05/21/19 Range/Units 16:57 20:27 07:00 WBC (3.8-10.6) k/uL RBC (3.80-5.40) m/uL Hgb (11.4-16.0) gm/dL Hct (34.0-46.0) % RDW (11.5-15.5) % Plt Count (150-450) k/uL Chloride (98-107) mmol/L Carbon Dioxide (22-30) mmol/L BUN (7-17) mg/dL Glucose (74-99) mg/dL POC Glucose (mg/dL) 180 H 128 H 118 H (75-99) mg/dL Calcium (8.4-10.2) mg/dL ALT (9-52) U/L Total Protein (6.3-8.2) g/dL Albumin (3.5-5.0) g/dL 05/21/19 05/21/19 05/21/19 Range/Units 07:06 07:06 11:55 WBC 0.6 L* (3.8-10.6) k/uL RBC 2.28 L (3.80-5.40) m/uL Hgb 7.2 L (11.4-16.0) gm/dL Hct 21.0 L (34.0-46.0) % RDW 16.4 H (11.5-15.5) % Plt Count 6 L* D (150-450) k/uL Chloride 109 H (98-107) mmol/L Carbon Dioxide 19 L (22-30) mmol/L BUN 21 H (7-17) mg/dL Glucose 105 H (74-99) mg/dL POC Glucose (mg/dL) 151 H (75-99) mg/dL Calcium 6.7 L (8.4-10.2) mg/dL ALT 75 H (9-52) U/L Total Protein 4.5 L (6.3-8.2) g/dL Albumin 2.3 L (3.5-5.0) g/dL Microbiology - Last 24 Hours (Table) 05/19/19 09:10 Blood Culture Gram Stain - Preliminary Blood Blood Culture - Preliminary Pseudomonas aeruginosa Assessment and Plan Plan: CLL - Treatment with single agent monoclonal antibody (Rituxan) initiated inpatient on 05/07/19 - due to patient' s critical condition and instability requiring ongoing hospitalization. - Patient's total white blood cell count is down to 11 from the 40 range. Her absolute lymphocyte count iis responding as well - Monitor CBC with differential and CMP, Uric acid, LDH, Coags Labs daily - Daily follow up Pancytopenia: Neutropenia - Febrile neutropenia resolved - Persistent, felt to be related to CLL. - Crossmatched platlets re-ordered and transfusion needed today - Transfuse for platelet <10,000 or if symptomatic. - NO ASA, NSAIDs, anticoagulation, ibuprofen or motrin. - Hemoglobin under 7 today, irradiated PRBC given - Re-panculture - Acyclovir - HErpetic lip lesions - ZaRXIO SIRS/Sepsis: Gram Negative Bacilli Blood Cultures Psudomonas Aeruginosa - Antibiotics - ID CONSULT Acute Hypoxic Respiratory Failure: - Pulm following Hx: Breast Cancer: - Continue on Arimidex. 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 Although may still continue with immune therapy Rituxan, will plan for Rituxan this week or Sunday - Continue Abx, await ID Recs - Continue ICU supportive Care - Await Crossmatched Platlets and transfuse when available - Transfuse today Physician Attestation: I have performed the full physical examination and reviewed the full history of this patient, as well as pertinent findings. I have created the compled impression and recommendations. I agree with the above dictation by FADY Bowens. This dictation has been written as a scribe.
--- NOTE | 2019-05-21 14:19 | CDI ---
Documentation Clarification Form Date: 05/21/2019 2:02:48 PM From: Jazmyne Proctor RN CCDS Admit Date: 05/19/2019 10:49:00 AM Patient Name: Angeli Ascencio Visit Number: [id number] Discharge Date: ATTENTION: The Clinical Documentation Specialists (CDI) and [facility] Coding Staff appreciate your assistance in clarifying documentation. Please respond to the clarification below the line at the bottom and electronically sign. The CDI & [facility] Coding staff will review the response and follow-up if needed. Please note: Queries are made part of the Legal Health Record. If you have any questions, please contact the author of this message via ITS. Dr. Kang Sheet 73 year old female presents to the ED after seeing Dr. Oliva for diarrhea , abd pain generalized weakness, malaise and dry cough for three days. History/Risk Factors: Recent hospital admission for pneumonia medical history CLL, Htn, Breast cancer , sleep apnea Clinical Indicators: WBC 3.0 Lactic acid: 2.3 Blood cultures: Pseudomonas Aeruginosa Vitals signs on admission: 98/65 101 98.3 18 96% ra Other Clinical Indicators: Heme ONc Progress note 05/21 /Sepsis; Gram negative bacilli blood cultures pseudomonas Aeruginosa Treatment: ID Consult patient with episodes of fever with Pseudomonas bacteremia Antibiotics: Cefepime Hcl 2gm ivpb q 12 hrs IV Bolus: 1L 0.9ns bolus In your professional opinion, please clarify if these findings signify one of the following conditions, whether the condition is POA, and cause, if known: * Sepsis ruled out * Sepsis poa * Septic Shock * Other, please specify * Unable to determine SIRS Criteria (2 or more of the following may indicate SIRS): -Temperature < 96.8F (36C) or > 101.0F (38.3C) -Heart Rate > 90 bpm -Respiratory Rate > 20 breaths/min or PaCO2 < 32 mmHg -White Blood Cell Count > 12,000 or < 4,000 cells/mm3 or > 10% bands -Lactate >2.0 mmol/L (>4.0 is equivalent to septic shock) (Last Revision: January 2018) most likely pt has sepsis from pseudomonas infection , however pt leukopenia leads to less pronounced systemic inflammatory response MTDD
--- NOTE | 2019-05-21 16:09 | P.PN ---
Subjective this Is a 73-year-old female with a known history of hypertension, hyperlipidemia and CLL and history of breast cancer in 2014 status post chemoradiation and surgery who is currently being treated for CLL with imatinab and is on follow-up with Dr. Oliva as an outpatient was sent to Hospital due to thrombocytopenia. Next a 2 been discharged from the hospital she got platelet and blood transfusion at hematology office, however patient was developing diarrhea about 3 times per day with no significant abdominal pain for about one week, associated with generalized weakness and malaise and dry cough for 3 days with no significant dyspnea or chest pain. Patient went for her hematology office follow-up today and her blood work showed slow platelet count and patient was sent to the hospital. Also on the hospital patient was put back on oxygen, she was discharged on room air last time. Patient was recently discharged from hospital 4 days ago for acute lung injury and possible pneumonia, related to multiple blood/platelet transfusion and was treated in the ICU, after stabilization she was discharged. Also at that time patient has pancytopenia, and the discharge age her white cell count was 11.7 K, hemoglobin 8.1 and platelet 18 K. This time hematology oncology team send the patient to emergency room for pancytopenia with WBC 3.0K, hemoglobin 6.6 and platelet 2K. INR is 1.0, potassium of 3.1, creatinine 0.9, and lactic acid is elevated at 2.3. On admission patient has been afebrile, Restoril Vitas looks stable, she was saturating 87-88% on room air, saturation went up to 96 and 3 L. Chest x-ray: Showing cardiomegaly with bilateral multifocal infiltrates. Patient is getting IV fluids at 100 L/h, also she supposed to get platelets and blood transfusion today, discussed with staff. Also patient was started on vancomycin and cefepime. 05/20/2019 Patient yesterday was hypotensive and tachypneic and she was saturating 93-97% on 3 L oxygen, staff concerned that her more fluid can compromise her resp function so patient was transferred to the intensive care unit, as per staff pt can not go to select unit. today is more awake and, however she is tachypneic with respiratory rate 22-25, blood pressure is improved to 114/70, she saturating 93-94% and is related to her, she had fever of 103.3 yesterday. Labs from today showing slight improvement in his WBC at 1.6K, hemoglobin improved to 6.7, platelets 3K. Sodium 136, creatinine normal at 0.7, sugar control. Patient remains in the ICU with on antibiotics in the form of vancomycin and cefepime is provided to the patient. Chest x-ray showing diffuse bilateral infiltrate with left pleural effusion, pneumonia versus pulmonary edema. 05/21/2019 pt is in the ICU, she is doing better , however she is still tachypenic, no chest pain or coughing , her blood culture is growing pseudomonas which is mostly related to her current sepsis , ID team already stopped vancomycin and increased the dose of cefepime, her cxr shows stable findings , source could be from port althought she has evidence of diverticulitis as well but her pain is not major in her belly , pt is still generally weak , pt is constipated rather than diarrhea, her pancytopenia is worse , no fever today , pt vitals remain stable. iv fluids were stopped . pt is felt stable to go to medical floor from yesterday however critical care team recommended to keep monitoring pt in icu for now Objective - Vital Signs Vital signs: Vital Signs Temp 98.0 F 05/21/19 13:55 Pulse 75 05/21/19 15:00 Resp 22 05/21/19 15:00 BP 122/68 05/21/19 15:00 Pulse Ox 97 05/21/19 15:00 Intake & Output 05/20/19 05/21/19 05/21/19 18:59 06:59 18:59 Intake Total 1135 1110 385 Output Total 655 950 485 Balance 480 160 -100 Weight 100.7 kg 105.3 kg Intake: IV 825 900 235 Sodium Chloride 0.9% 1, 825 900 235 000 ml @ 75 mls/hr IV . [id number] [facility] Rx#:[id number] Oral 150 Blood Product 310 210 0 Platelet Irr Pheresis 2 0 210 Acda Unit [id number] Platelet Irr Pheresis 0 Acda1 Unit [id number] Rc Irr As1 Unit 310 [id number] Output: Urine 655 950 485 Other: Voiding Method Indwelling Catheter Indwelling Catheter Indwelling Catheter - Exam -GENERAL: The patient is alert and oriented x3, not in any acute distress. Pale and weak HEENT: Pupils are round and equally reacting to light. EOMI. No scleral icterus. No conjunctival pallor. Normocephalic, atraumatic. No pharyngeal erythema. No thyromegaly. CARDIOVASCULAR: S1 and S2 present. No murmurs, rubs, or gallops. PULMONARY: Chest is clear to auscultation, no wheezing or crackles. ABDOMEN: Soft, nontender, nondistended, normoactive bowel sounds. No palpable organomegaly. MUSCULOSKELETAL: No joint swelling or deformity. EXTREMITIES: No cyanosis, clubbing, or pedal edema. NEUROLOGICAL: Gross neurological examination did not reveal any focal deficits. SKIN: No rashes. - Labs CBC & Chem 7: 05/21/19 07:06 05/21/19 07:06 Labs: Abnormal Lab Results - Last 24 Hours (Table) 05/20/19 05/20/19 05/21/19 Range/Units 16:57 20:27 07:00 WBC (3.8-10.6) k/uL RBC (3.80-5.40) m/uL Hgb (11.4-16.0) gm/dL Hct (34.0-46.0) % RDW (11.5-15.5) % Plt Count (150-450) k/uL Chloride (98-107) mmol/L Carbon Dioxide (22-30) mmol/L BUN (7-17) mg/dL Glucose (74-99) mg/dL POC Glucose (mg/dL) 180 H 128 H 118 H (75-99) mg/dL Calcium (8.4-10.2) mg/dL Ionized Calcium Carlos (4.5-5.3) mg/dL ALT (9-52) U/L Total Protein (6.3-8.2) g/dL Albumin (3.5-5.0) g/dL 05/21/19 05/21/19 05/21/19 Range/Units 07:06 07:06 11:55 WBC 0.6 L* (3.8-10.6) k/uL RBC 2.28 L (3.80-5.40) m/uL Hgb 7.2 L (11.4-16.0) gm/dL Hct 21.0 L (34.0-46.0) % RDW 16.4 H (11.5-15.5) % Plt Count 6 L* D (150-450) k/uL Chloride 109 H (98-107) mmol/L Carbon Dioxide 19 L (22-30) mmol/L BUN 21 H (7-17) mg/dL Glucose 105 H (74-99) mg/dL POC Glucose (mg/dL) 151 H (75-99) mg/dL Calcium 6.7 L (8.4-10.2) mg/dL Ionized Calcium Carlos (4.5-5.3) mg/dL ALT 75 H (9-52) U/L Total Protein 4.5 L (6.3-8.2) g/dL Albumin 2.3 L (3.5-5.0) g/dL 05/21/19 Range/Units 12:04 WBC (3.8-10.6) k/uL RBC (3.80-5.40) m/uL Hgb (11.4-16.0) gm/dL Hct (34.0-46.0) % RDW (11.5-15.5) % Plt Count (150-450) k/uL Chloride (98-107) mmol/L Carbon Dioxide (22-30) mmol/L BUN (7-17) mg/dL Glucose (74-99) mg/dL POC Glucose (mg/dL) (75-99) mg/dL Calcium (8.4-10.2) mg/dL Ionized Calcium Carlos 4.4 L (4.5-5.3) mg/dL ALT (9-52) U/L Total Protein (6.3-8.2) g/dL Albumin (3.5-5.0) g/dL Microbiology - Last 24 Hours (Table) 05/19/19 09:10 Blood Culture Gram Stain - Preliminary Blood Blood Culture - Preliminary Pseudomonas aeruginosa Assessment and Plan Assessment: Pancytopenia SIR syndrome with fever and leukopenia and tachypnea sepsis secondary to speudomonas , possible port infection vs other sigmoid diverticulitis chronic stable pulmonary infiltrates Elevated lactic acid Dehydration and generalized weakness Acute hypoxemic respiratory failure CLL With leukocytosis. on Therapy Recent history of acute lung injury, related to multiple blood/platelet transfusion, with possible pneumonia History of breast cancer in 2014 status post chemo/radiation and surgery. Currently on anastrozole Hypertension Hyperlipidemia Osteoarthritis Previous history of smoking DVT prophylaxis with SCDs Plan: This is a pleasant 73 years old female who presents with pancytopenia and review of her CLL or therapy, also she has multiple lung infiltrates. Continue with antibiotics as per ID team recommendation. Hold chemotherapy medication and check with hematology team. We'll consult hematology/oncology team, pulmonary/critical team are following patient.Labs and medication were reviewed.. Continue same treatment. Continue with symptomatic treatment. Resume home medication. Monitor lytes and vitals. DVT and GI prophylaxis. Further recommendations of the clinical course of the patient DVT prophylaxis: No anticoagulation in the view of low platelets GI Prophylaxis: Pepcid PT/OT: Pending Prognosis is guarded
[2019-05-21 17:28] LABS: Glucose,Whole Blood 182 mg/dL (75-99)
[2019-05-21 17:46] LABS: Mean Platelet Volume 7.5; Platelet Count 20 k/uL (150-450)
[2019-05-21 20:54] LABS: Glucose,Whole Blood 164 mg/dL (75-99)
[2019-05-21] MEDS: ATORVASTATIN 40 MG TAB PO SCH (21:32)
[2019-05-22] MEDS: traMADol 50 MG TAB PO PRN ×3 (00:56→19:28)
[2019-05-22] MEDS: SODIUM CHLORIDE 0.9% 500 ML 500 ML IV SCH (04:33)
[2019-05-22] MEDS: CEFEPIME 2 GM in SODIUM CHLORIDE 0.9% 100 ML IVPB SCH (05:31)
[2019-05-22 06:59] LABS: Glucose,Whole Blood 124 mg/dL (75-99)
[2019-05-22] MEDS: INSULIN ASPART (NovoLOG) 100 UNIT/ML VIAL SQ SCH ×4 (07:30→20:22)
[2019-05-22 07:45] LABS: ALT 103 U/L (9-52); AST 28 U/L (14-36); African American GFR (CKD) >90 (>60 ml/min/1.73 sqM); Albumin 2.3 g/dL (3.5-5.0); Alkaline Phosphatase 89 U/L (38-126); Anion Gap 8 mmol/L; Blood Urea Nitrogen 18 mg/dL (7-17); Calcium 7.2 mg/dL (8.4-10.2); Carbon Dioxide 22 mmol/L (22-30); Chloride 108 mmol/L (98-107); Glucose 111 mg/dL (74-99); Potassium 3.4 mmol/L (3.5-5.1); Sodium 138 mmol/L (137-145); Total Bilirubin 1.5 mg/dL (0.2-1.3); Total Protein 4.5 g/dL (6.3-8.2)
[2019-05-22 08:00] LABS: Basophils % (A) 0 %; Eosinophils % (A) 1 %; HGB 7.2 gm/dL (11.4-16.0); Lymphocytes # (A) 1.2 k/uL (1.0-4.8); Lymphocytes % (A) 91 %; MCH 31.4 pg (25.0-35.0); MCHC 34.5 g/dL (31.0-37.0); Mean Platelet Volume 7.6; Monocytes % (A) 1 %; Neutrophils # (A) 0.1 k/uL (1.3-7.7); Neutrophils % (A) 5 %; RDW 15.7 % (11.5-15.5)
[2019-05-22] MEDS: PANTOPRAZOLE 40 MG TABLET PO SCH ×2 (08:02→16:54)
[2019-05-22] MEDS: valACYclovir HCL 1,000 MG TABLET PO SCH ×2 (08:02→19:27)
[2019-05-22] MEDS: ALLOPURINOL 300 MG TAB PO SCH (08:02)
[2019-05-22] MEDS: POTASSIUM CHLORIDE ER 20 MEQ TAB.ER PO SCH ×2 (08:03→09:03)
[2019-05-22] MEDS: FILGRASTIM-SNDZ 480 MCG/0.8 ML SYRINGE SQ SCH (08:03)
[2019-05-22 08:04] LABS: WBC 1.3 k/uL (3.8-10.6)
[2019-05-22 08:05] LABS: Platelet Count 12 k/uL (150-450)
[2019-05-22] MEDS ORDERED: FUROSEMIDE 10 MG/ML 4 ML VIAL IV STA (08:30)
[2019-05-22 11:16] LABS: Glucose,Whole Blood 118 mg/dL (75-99)
--- NOTE | 2019-05-22 11:27 | PN ---
PROGRESS NOTE DATE OF SERVICE: 05/22/2019 This is a 73-year-old female with a history of severe pancytopenia secondary to chemotherapy. Her primary cancer or malignancy is chronic lymphocytic leukemia and in the past she received Gleevec and more recently rituximab. Anyway, the patient was admitted with a diagnosis of diffuse infiltrates which actually are unchanged and stable and chronic. She mostly came in because her platelet count was only 2000 and her hemoglobin was rather low. The patient is now out of the ICU. She was transferred out yesterday. She was moved to the ICU because apparently she was thought to be having some respiratory difficulty, but in fact she was not. Currently, she is denying any issues of respiratory difficulty. She does complain of a sore on her butt and also she complains of being swollen and some rash. For the swelling, I will give her Lasix. In addition, she has a history of diastolic heart failure, moderate mitral regurgitation, mild aortic stenosis, moderate pulmonary hypertension, benign essential hypertension, hyperlipidemia, sleep apnea syndrome, and previous history of tobacco use. Also on prior admission, I believe that she probably had transfusion-related acute lung injury (TRALI), from recurrent blood transfusions. PHYSICAL EXAMINATION: VITAL SIGNS: Current vital signs include a temperature 98.3, heart rate 77, respiratory rate 20, blood pressure 152/68, mean 96 and 3 L saturation 94%. Appears no acute distress. HEENT: Examination is grossly unremarkable. Mucous membranes are moist. No oral lesions. She does have some dried blood on her lips. NECK: Supple. Full range of motion. No adenopathy or thyromegaly. Neck veins are flat. CARDIOVASCULAR: Examination reveals regular rhythm and rate. S1, S2 normal. No S3, S4, or murmur. LUNGS: Are relatively clear. A few scattered mild rhonchi. No wheezes or crackles. ABDOMEN: Obese. Bowel sounds are heard. EXTREMITIES: Are intact. Minimal edema. SKIN: Without rash. NEUROLOGIC: Examination is brief but nonfocal. LAB DATA: Lab data includes a white count of 1.3, hemoglobin 7.2, hematocrit 21, and platelet count of 12,000. Sodium 138, potassium 3.4, chloride 108, CO2 is 22. Anion gap is 8. BUN and creatinine were 18 and 0.42. Microbiologic data shows blood cultures positive for Pseudomonas aeruginosa. It is sensitive to just about everything. It is sensitive to Levaquin, meropenem, piperacillin, tobramycin, Zosyn, etc. X-RAY: Most recent chest x-ray was done yesterday. ASSESSMENT: 1. Bilateral infiltrates, unchanged, and stable, without evidence of any respiratory difficulty or decline. 2. Severe pancytopenia secondary to chemotherapy. 3. Recent episode of pneumonia with sepsis. 4. Neutropenic sepsis, secondary to Pseudomonas aeruginosa. 5. History of chronic lymphocytic leukemia, with recent treatment with rituximab. 6. Acute diastolic heart failure. 7. Valvular heart disease in the form of moderate mitral regurgitation and mild aortic stenosis. 8. Mild to moderate pulmonary hypertension. 9. History of right breast cancer, status post lumpectomy followed by concurrent chemo/radiation. 10.History of hypertension. 11.Hyperlipidemia. 12.Previous history of tobacco use. 13.History of sleep apnea syndrome. 14.Recent admission to the hospital with development of acute lung injury after blood transfusion (transfusion-related acute lung injury, TRALI). PLAN: The patient seems to be doing relatively well from the respiratory standpoint. The patient is on a couple liters. We will give her Lasix 40 mg IV push x1. The nurse will talk to Dr. Rondon about the rash on her back and the sore in her back. Additional recommendations and suggestions forthcoming. Prognosis is guarded. Her counts have not really fully recovered. Oncology is involved. Will continue to watch her respiratory status at this time. MMODL / IJN: [id number] /
[2019-05-22] MEDS: AZTREONAM 2 GM in SODIUM CHLORIDE 0.9% 100 ML IVPB SCH ×2 (12:23→19:27)
--- NOTE | 2019-05-22 12:34 | P.PN ---
Subjective Progress Note Date: 05/22/19 Principal diagnosis: CLL Thrombocytopenia Responded better to Crossmatch and platlet count held today at 12. will likely need next cross match platlet tomorrow. Will anticipate more need for next week as well and will ask to order two more units next week as well. Objective - Vital Signs Vital signs: Vital Signs Temp 98.1 F 05/22/19 11:39 Pulse 70 05/22/19 11:39 Resp 18 05/22/19 11:39 BP 139/73 05/22/19 11:39 Pulse Ox 95 05/22/19 11:39 Intake & Output 05/21/19 05/22/19 05/22/19 18:59 06:59 18:59 Intake Total 1074 830 Output Total 635 1900 Balance 439 830 -1900 Weight 105.3 kg Intake: IV 295 Sodium Chloride 0.9% 1, 295 000 ml @ 75 mls/hr IV . [id number] [facility] Rx#:[id number] Intake, IV Titration 240 Amount Cefepime 2 gm In Sodium 100 Chloride 0.9% 100 ml @ 200 mls/hr IVPB Q8H [facility] Rx#:[id number] Sodium Chloride 0.9% 500 140 ml 500 ml @ 20 mls/hr IV .Q24H [facility] Rx#:[id number] Oral 400 590 Blood Product 379 Platelet Irr Pheresis 379 Acda1 Unit [id number] Output: Urine 635 1900 Other: Voiding Method Indwelling Catheter - Exam General: Alert and Oriented x3, No Acute Distress Head: Normocytic, Atraumatic Neck: Supple Mouth: scabbed herpetic lesions lips Eyes: Non-sclerotic No Palpable cervical, supraclavicular, axillary adenopathy Heart: Tachy Lungs: Diminished expiratory wheeze Abdomen: Soft, Non-Distended, Non-Tended, BSx4 Extremities:lower ex folet DD, petechaie rash. Neurological: No Focal Defects: No sensory or motor deficits noted Psych: Calm and cooperative - Labs CBC & Chem 7: 05/23/19 07:47 05/23/19 07:47 Labs: Abnormal Lab Results - Last 24 Hours (Table) 05/21/19 05/21/19 05/21/19 Range/Units 12:04 17:21 17:23 WBC (3.8-10.6) k/uL RBC (3.80-5.40) m/uL Hgb (11.4-16.0) gm/dL Hct (34.0-46.0) % RDW (11.5-15.5) % Plt Count 20 L D (150-450) k/uL Neutrophils # (1.3-7.7) k/uL Potassium (3.5-5.1) mmol/L Chloride (98-107) mmol/L BUN (7-17) mg/dL Creatinine (0.52-1.04) mg/dL Glucose (74-99) mg/dL POC Glucose (mg/dL) 182 H (75-99) mg/dL Calcium (8.4-10.2) mg/dL Ionized Calcium Carlos 4.4 L (4.5-5.3) mg/dL Total Bilirubin (0.2-1.3) mg/dL ALT (9-52) U/L Total Protein (6.3-8.2) g/dL Albumin (3.5-5.0) g/dL 05/21/19 05/22/19 05/22/19 Range/Units 20:52 06:58 07:09 WBC 1.3 L* (3.8-10.6) k/uL RBC 2.30 L (3.80-5.40) m/uL Hgb 7.2 L (11.4-16.0) gm/dL Hct 21.0 L (34.0-46.0) % RDW 15.7 H (11.5-15.5) % Plt Count 12 L* (150-450) k/uL Neutrophils # 0.1 L* (1.3-7.7) k/uL Potassium (3.5-5.1) mmol/L Chloride (98-107) mmol/L BUN (7-17) mg/dL Creatinine (0.52-1.04) mg/dL Glucose (74-99) mg/dL POC Glucose (mg/dL) 164 H 124 H (75-99) mg/dL Calcium (8.4-10.2) mg/dL Ionized Calcium Carlos (4.5-5.3) mg/dL Total Bilirubin (0.2-1.3) mg/dL ALT (9-52) U/L Total Protein (6.3-8.2) g/dL Albumin (3.5-5.0) g/dL 05/22/19 05/22/19 Range/Units 07:09 11:15 WBC (3.8-10.6) k/uL RBC (3.80-5.40) m/uL Hgb (11.4-16.0) gm/dL Hct (34.0-46.0) % RDW (11.5-15.5) % Plt Count (150-450) k/uL Neutrophils # (1.3-7.7) k/uL Potassium 3.4 L (3.5-5.1) mmol/L Chloride 108 H (98-107) mmol/L BUN 18 H (7-17) mg/dL Creatinine 0.42 L (0.52-1.04) mg/dL Glucose 111 H (74-99) mg/dL POC Glucose (mg/dL) 118 H (75-99) mg/dL Calcium 7.2 L (8.4-10.2) mg/dL Ionized Calcium Carlos (4.5-5.3) mg/dL Total Bilirubin 1.5 H (0.2-1.3) mg/dL ALT 103 H (9-52) U/L Total Protein 4.5 L (6.3-8.2) g/dL Albumin 2.3 L (3.5-5.0) g/dL Microbiology - Last 24 Hours (Table) 05/19/19 09:10 Blood Culture Gram Stain - Final Blood Blood Culture - Final Pseudomonas aeruginosa Assessment and Plan Plan: CLL - Treatment with single agent monoclonal antibody (Rituxan) initiated inpatient on 05/07/19 - due to patient' s critical condition and instability requiring ongoing hospitalization. - Patient's total white blood cell count is down to 11 from the 40 range. Her absolute lymphocyte count iis responding as well - Monitor CBC with differential and CMP, Uric acid, LDH, Coags Labs daily - Daily follow up Pancytopenia: Neutropenia - Febrile neutropenia resolved - Persistent, felt to be related to CLL. - Crossmatched platlets re-ordered and transfusion needed today - Transfuse for platelet <10,000 or if symptomatic. - NO ASA, NSAIDs, anticoagulation, ibuprofen or motrin. - Hemoglobin under 7 today, irradiated PRBC given - Re-panculture - Acyclovir - HErpetic lip lesions - ZaRXIO SIRS/Sepsis: Gram Negative Bacilli Blood Cultures Psudomonas Aeruginosa - Antibiotics - ID CONSULT Acute Hypoxic Respiratory Failure: - Pulm following Hx: Breast Cancer: - Continue on Arimidex. 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 Although may still continue with immune therapy Rituxan, will plan for Rituxan this week or Sunday - Continue Abx, await ID Recs - Continue ICU supportive Care - Await Crossmatched Platlets and transfuse when available - Transfused yesterday and likely will rewuire another unit tomorrow Physician Attestation: I have performed the full physical examination and reviewed the full history of this patient, as well as pertinent findings. I have created the compled impression and recommendations. I agree with the above dictation by FADY Bowens. This dictation has been written as a scribe.
--- NOTE | 2019-05-22 13:45 | PN ---
PROGRESS NOTE DATE OF SERVICE: 05/22/2019. REASON FOR FOLLOWUP: 1. Pseudomonas aeruginosa bacteremia. 2. Drug rash. INTERVAL HISTORY: The patient's clinical course complicated by development of rash and has generalized maculopapular rash to the back and to the arms area. Patient denies significant itching. No worsening shortness of breath. No tongue swelling. Overall, oral mucosa is improving. She continues to have dry hacking cough. No nausea, no vomiting. PHYSICAL EXAMINATION: On examination, blood pressure 139/73 with a pulse of 70, temperature 98.1, T- max 99.9. She is 95% on 2 L nasal cannula. General description is an elderly female lying in bed in no distress. HEENT EXAMINATION: Slight pallor. Oral mucous membrane has improved the herpetic lesion on the lower lip is less swollen LUNGS: Unlabored breathing, decreased breath sounds at the bases. HEART: S1, S2. Regular rate and rhythm. ABDOMEN: Soft, no tenderness. SKIN EXAMINATION: Did have maculopapular rash on the trunk. LABS: Hemoglobin 7.2, white count 1.3 with a BUN of 18, creatinine 0.42. DIAGNOSTIC IMPRESSION AND PLAN: Patient with Pseudomonas aeruginosa bacteremia with concern for possible pneumonia versus Mediport site. Blood cultures from the port and peripherally has been obtained which are currently pending. The patient's fever responded to the cefepime. However, the patient now developed a rash more likely secondary to cefepime which will be discontinued. She was started on Azactam 2 grams q.8 hours and monitor clinical course closely. Continue with supportive care. MMODL / IJN: [id number] / KARRIE
[2019-05-22 16:49] LABS: Glucose,Whole Blood 145 mg/dL (75-99)
[2019-05-22 19:04] LABS: Glucose,Whole Blood 140 mg/dL (75-99)
[2019-05-22] MEDS: ATORVASTATIN 40 MG TAB PO SCH (19:27)
[2019-05-23] MEDS: AZTREONAM 2 GM in SODIUM CHLORIDE 0.9% 100 ML IVPB SCH ×3 (03:30→19:49)
--- NOTE | 2019-05-23 07:00 | P.PN ---
Subjective this Is a 73-year-old female with a known history of hypertension, hyperlipidemia and CLL and history of breast cancer in 2014 status post chemoradiation and surgery who is currently being treated for CLL with imatinab and is on follow-up with Dr. Oliva as an outpatient was sent to Hospital due to thrombocytopenia. Next a 2 been discharged from the hospital she got platelet and blood transfusion at hematology office, however patient was developing diarrhea about 3 times per day with no significant abdominal pain for about one week, associated with generalized weakness and malaise and dry cough for 3 days with no significant dyspnea or chest pain. Patient went for her hematology office follow-up today and her blood work showed slow platelet count and patient was sent to the hospital. Also on the hospital patient was put back on oxygen, she was discharged on room air last time. Patient was recently discharged from hospital 4 days ago for acute lung injury and possible pneumonia, related to multiple blood/platelet transfusion and was treated in the ICU, after stabilization she was discharged. Also at that time patient has pancytopenia, and the discharge age her white cell count was 11.7 K, hemoglobin 8.1 and platelet 18 K. This time hematology oncology team send the patient to emergency room for pancytopenia with WBC 3.0K, hemoglobin 6.6 and platelet 2K. INR is 1.0, potassium of 3.1, creatinine 0.9, and lactic acid is elevated at 2.3. On admission patient has been afebrile, Restoril Vitas looks stable, she was saturating 87-88% on room air, saturation went up to 96 and 3 L. Chest x-ray: Showing cardiomegaly with bilateral multifocal infiltrates. Patient is getting IV fluids at 100 L/h, also she supposed to get platelets and blood transfusion today, discussed with staff. Also patient was started on vancomycin and cefepime. 05/20/2019 Patient yesterday was hypotensive and tachypneic and she was saturating 93-97% on 3 L oxygen, staff concerned that her more fluid can compromise her resp function so patient was transferred to the intensive care unit, as per staff pt can not go to select unit. today is more awake and, however she is tachypneic with respiratory rate 22-25, blood pressure is improved to 114/70, she saturating 93-94% and is related to her, she had fever of 103.3 yesterday. Labs from today showing slight improvement in his WBC at 1.6K, hemoglobin improved to 6.7, platelets 3K. Sodium 136, creatinine normal at 0.7, sugar control. Patient remains in the ICU with on antibiotics in the form of vancomycin and cefepime is provided to the patient. Chest x-ray showing diffuse bilateral infiltrate with left pleural effusion, pneumonia versus pulmonary edema. 05/21/2019 pt is in the ICU, she is doing better , however she is still tachypenic, no chest pain or coughing , her blood culture is growing pseudomonas which is mostly related to her current sepsis , ID team already stopped vancomycin and increased the dose of cefepime, her cxr shows stable findings , source could be from port althought she has evidence of diverticulitis as well but her pain is not major in her belly , pt is still generally weak , pt is constipated rather than diarrhea, her pancytopenia is worse , no fever today , pt vitals remain stable. iv fluids were stopped . pt is felt stable to go to medical floor from yesterday however critical care team recommended to keep monitoring pt in icu for now 05/22/2019 pt is transferred to the general medical floor today , he breathing looks better , coughing and weakness are improving as well, no more abd pain and her LLQ tenderness improved as well. she is hemodynamically stable , labs shwoing improving leukocytes up to 1.2 , hb stable at 7.5 , platelet improved to 12k, pt has low grade fever yesterday night at 99.9, bp stable, pt developed rash on the trunk and mainly back and thought it is due to cefepime which is switched to aztreonam as per ID team. Objective - Vital Signs Vital signs: Vital Signs Temp 98.1 F 05/22/19 11:39 Pulse 72 05/22/19 16:00 Resp 22 05/22/19 16:00 BP 139/73 05/22/19 11:39 Pulse Ox 95 05/22/19 16:18 Intake & Output 05/21/19 05/22/19 05/22/19 18:59 06:59 18:59 Intake Total 1074 830 120 Output Total 635 3800 Balance 439 830 -3680 Weight 98 kg Intake: IV 295 Sodium Chloride 0.9% 1, 295 000 ml @ 75 mls/hr IV . [id number] Rx#:[id number] Intake, IV Titration 240 Amount Cefepime 2 gm In Sodium 100 Chloride 0.9% 100 ml @ 200 mls/hr IVPB [facility] Rx#:[id number] Sodium Chloride 0.9% 500 140 ml 500 ml @ 20 mls/hr IV .[facility] Rx#:[id number] Oral 400 590 120 Blood Product 379 Platelet Irr Pheresis 379 Acda1 Unit [id number] Output: Urine 635 3800 Other: Voiding Method Indwelling Catheter Indwelling Catheter - Exam -GENERAL: The patient is alert and oriented x3, not in any acute distress. Pale and weak HEENT: Pupils are round and equally reacting to light. EOMI. No scleral icterus. No conjunctival pallor. Normocephalic, atraumatic. No pharyngeal erythema. No thyromegaly. CARDIOVASCULAR: S1 and S2 present. No murmurs, rubs, or gallops. PULMONARY: Chest is clear to auscultation, no wheezing or crackles. ABDOMEN: Soft, nontender, nondistended, normoactive bowel sounds. No palpable organomegaly. MUSCULOSKELETAL: No joint swelling or deformity. EXTREMITIES: No cyanosis, clubbing, or pedal edema. NEUROLOGICAL: Gross neurological examination did not reveal any focal deficits. SKIN: No rashes. - Labs CBC & Chem 7: 05/22/19 07:09 05/22/19 07:09 Labs: Abnormal Lab Results - Last 24 Hours (Table) 05/21/19 05/21/19 05/21/19 Range/Units 17:21 17:23 20:52 WBC (3.8-10.6) k/uL RBC (3.80-5.40) m/uL Hgb (11.4-16.0) gm/dL Hct (34.0-46.0) % RDW (11.5-15.5) % Plt Count 20 L D (150-450) k/uL Neutrophils # (1.3-7.7) k/uL Potassium (3.5-5.1) mmol/L Chloride (98-107) mmol/L BUN (7-17) mg/dL Creatinine (0.52-1.04) mg/dL Glucose (74-99) mg/dL POC Glucose (mg/dL) 182 H 164 H (75-99) mg/dL Calcium (8.4-10.2) mg/dL Total Bilirubin (0.2-1.3) mg/dL ALT (9-52) U/L Total Protein (6.3-8.2) g/dL Albumin (3.5-5.0) g/dL 05/22/19 05/22/19 05/22/19 Range/Units 06:58 07:09 07:09 WBC 1.3 L* (3.8-10.6) k/uL RBC 2.30 L (3.80-5.40) m/uL Hgb 7.2 L (11.4-16.0) gm/dL Hct 21.0 L (34.0-46.0) % RDW 15.7 H (11.5-15.5) % Plt Count 12 L* (150-450) k/uL Neutrophils # 0.1 L* (1.3-7.7) k/uL Potassium 3.4 L (3.5-5.1) mmol/L Chloride 108 H (98-107) mmol/L BUN 18 H (7-17) mg/dL Creatinine 0.42 L (0.52-1.04) mg/dL Glucose 111 H (74-99) mg/dL POC Glucose (mg/dL) 124 H (75-99) mg/dL Calcium 7.2 L (8.4-10.2) mg/dL Total Bilirubin 1.5 H (0.2-1.3) mg/dL ALT 103 H (9-52) U/L Total Protein 4.5 L (6.3-8.2) g/dL Albumin 2.3 L (3.5-5.0) g/dL 05/22/19 05/22/19 Range/Units 11:15 16:48 WBC (3.8-10.6) k/uL RBC (3.80-5.40) m/uL Hgb (11.4-16.0) gm/dL Hct (34.0-46.0) % RDW (11.5-15.5) % Plt Count (150-450) k/uL Neutrophils # (1.3-7.7) k/uL Potassium (3.5-5.1) mmol/L Chloride (98-107) mmol/L BUN (7-17) mg/dL Creatinine (0.52-1.04) mg/dL Glucose (74-99) mg/dL POC Glucose (mg/dL) 118 H 145 H (75-99) mg/dL Calcium (8.4-10.2) mg/dL Total Bilirubin (0.2-1.3) mg/dL ALT (9-52) U/L Total Protein (6.3-8.2) g/dL Albumin (3.5-5.0) g/dL Microbiology - Last 24 Hours (Table) 05/21/19 12:14 Blood Culture - Preliminary Blood No Growth after 24 hours 05/21/19 12:04 Blood Culture - Preliminary Blood No Growth after 24 hours 05/19/19 09:10 Blood Culture Gram Stain - Final Blood Blood Culture - Final Pseudomonas aeruginosa Assessment and Plan Assessment: Pancytopenia SIR syndrome with fever and leukopenia and tachypnea sepsis secondary to speudomonas , possible port infection vs other sigmoid diverticulitis chronic stable pulmonary infiltrates Elevated lactic acid Dehydration and generalized weakness Acute hypoxemic respiratory failure CLL With leukocytosis. on Therapy Recent history of acute lung injury, related to multiple blood/platelet transfusion, with possible pneumonia History of breast cancer in 2014 status post chemo/radiation and surgery. Currently on anastrozole Hypertension Hyperlipidemia Osteoarthritis Previous history of smoking DVT prophylaxis with SCDs Plan: This is a pleasant 73 years old female who presents with pancytopenia and review of her CLL or therapy, also she has multiple lung infiltrates. Continue with antibiotics as per ID team recommendation. cefepime is switched to aztreonam as per ID team due to rash. Hold chemotherapy medication and check with hematology team. f/u recommendation from hematology/oncology team and pulmonary/critical teams, iv fluids are stopped.Labs and medication were reviewed.. Continue same treatment. Continue with symptomatic treatment. Resume home medication. M onitor lytes and vitals. DVT and GI prophylaxis. Further recommendations of the clinical course of the patient DVT prophylaxis: No anticoagulation in the view of low platelets GI Prophylaxis: Pepcid PT/OT: Pending Prognosis is guarded
[2019-05-23 07:23] LABS: Glucose,Whole Blood 122 mg/dL (75-99)
[2019-05-23] MEDS: INSULIN ASPART (NovoLOG) 100 UNIT/ML VIAL SQ SCH ×4 (07:35→21:22)
[2019-05-23 08:11] LABS: Basophils % (A) 0 %; Eosinophils % (A) 1 %; Lymphocytes # (A) 0.9 k/uL (1.0-4.8); Lymphocytes % (A) 90 %; MCH 31.3 pg (25.0-35.0); MCHC 34.2 g/dL (31.0-37.0); MCV 91.5 fL (80.0-100.0); Mean Platelet Volume 8.8; Monocytes % (A) 1 %; Neutrophils % (A) 4 %; RBC 2.15 m/uL (3.80-5.40); RDW 15.6 % (11.5-15.5)
[2019-05-23 08:19] LABS: HCT 19.7 % (34.0-46.0); HGB 6.7 gm/dL (11.4-16.0)
[2019-05-23 08:20] LABS: Platelet Count 6 k/uL (150-450)
[2019-05-23] MEDS: valACYclovir HCL 1,000 MG TABLET PO SCH ×2 (08:25→20:23)
[2019-05-23] MEDS: PANTOPRAZOLE 40 MG TABLET PO SCH ×2 (08:25→17:53)
[2019-05-23] MEDS: ALLOPURINOL 300 MG TAB PO SCH (08:25)
[2019-05-23] MEDS: FILGRASTIM-SNDZ 480 MCG/0.8 ML SYRINGE SQ SCH (08:29)
[2019-05-23 08:31] LABS: ALT 87 U/L (9-52); AST 23 U/L (14-36); African American GFR (CKD) >90 (>60 ml/min/1.73 sqM); Albumin 2.2 g/dL (3.5-5.0); Alkaline Phosphatase 86 U/L (38-126); Anion Gap 6 mmol/L; Blood Urea Nitrogen 19 mg/dL (7-17); Calcium 7.4 mg/dL (8.4-10.2); Carbon Dioxide 26 mmol/L (22-30); Chloride 106 mmol/L (98-107); Glucose 120 mg/dL (74-99); LDH 332 U/L (313-618); Magnesium 1.6 mg/dL (1.6-2.3); Potassium 3.3 mmol/L (3.5-5.1); Sodium 138 mmol/L (137-145); Total Bilirubin 1.4 mg/dL (0.2-1.3); Total Protein 4.3 g/dL (6.3-8.2)
[2019-05-23] MEDS: SODIUM CHLORIDE 0.9% 500 ML 500 ML IV SCH (08:33)
[2019-05-23 08:58] LABS: Poikilocytosis (M) Present
[2019-05-23 11:17] LABS: Glucose,Whole Blood 163 mg/dL (75-99)
[2019-05-23] MEDS ORDERED: riTUXimab 700 MG in SODIUM CHLORIDE 0.9% 500 ML 500 ML IV ONE (12:00)
[2019-05-23] MEDS ORDERED: ACETAMINOPHEN TAB 500 MG TAB PO ONE (12:00)
[2019-05-23] MEDS ORDERED: methylPREDNISolone SOD SUCCI 125 MG/2 ML VIAL IVP ONE (12:00)
[2019-05-23] MEDS ORDERED: FAMOTIDINE 20 MG/2 ML VIAL IVP ONE (12:00)
[2019-05-23] MEDS ORDERED: diphenhydrAMINE 50 MG/ML 1 ML VIAL IVP ONE (12:00)
--- NOTE | 2019-05-23 12:04 | P.PN ---
Subjective Progress Note Date: 05/23/19 Principal diagnosis: CLL Thrombocytopenia Platelets 6 today - transfuse one unit Crossmatched platlet Hemoglbon 6.7 = transfuse one unit Irradiated PRBC today Will receive Rituxan today. ll. Objective - Vital Signs Vital signs: Vital Signs Temp 98.2 F 05/23/19 05:00 Pulse 78 05/23/19 05:00 Resp 18 05/23/19 05:00 BP 129/75 05/23/19 05:00 Pulse Ox 93 L 05/23/19 09:24 Intake & Output 05/22/19 05/23/19 05/23/19 18:59 06:59 18:59 Intake Total 360 120 Output Total 3800 Balance -3440 120 Weight 98 kg Intake: Oral 360 120 Output: Urine 3800 Other: Voiding Method Indwelling Catheter Indwelling Catheter Indwelling Catheter # Bowel Movements 0 - Exam General: Alert and Oriented x3, No Acute Distress Head: Normocytic, Atraumatic Neck: Supple Mouth: scabbed herpetic lesions lips Eyes: Non-sclerotic No Palpable cervical, supraclavicular, axillary adenopathy Heart: Tachy Lungs: Diminished expiratory wheeze Abdomen: Soft, Non-Distended, Non-Tended, BSx4 Extremities:lower ex folet DD, petechaie rash. Neurological: No Focal Defects: No sensory or motor deficits noted Psych: Calm and cooperative - Labs CBC & Chem 7: 05/23/19 07:47 05/23/19 07:47 Labs: Abnormal Lab Results - Last 24 Hours (Table) 05/22/19 05/22/19 05/23/19 Range/Units 16:48 19:03 07:11 WBC (3.8-10.6) k/uL RBC (3.80-5.40) m/uL Hgb (11.4-16.0) gm/dL Hct (34.0-46.0) % RDW (11.5-15.5) % Plt Count (150-450) k/uL Neutrophils # (1.3-7.7) k/uL Lymphocytes # (1.0-4.8) k/uL Potassium (3.5-5.1) mmol/L BUN (7-17) mg/dL Creatinine (0.52-1.04) mg/dL Glucose (74-99) mg/dL POC Glucose (mg/dL) 145 H 140 H 122 H (75-99) mg/dL Calcium (8.4-10.2) mg/dL Total Bilirubin (0.2-1.3) mg/dL ALT (9-52) U/L Total Protein (6.3-8.2) g/dL Albumin (3.5-5.0) g/dL 05/23/19 05/23/19 05/23/19 Range/Units 07:47 07:47 11:15 WBC 1.0 L* (3.8-10.6) k/uL RBC 2.15 L (3.80-5.40) m/uL Hgb 6.7 L* (11.4-16.0) gm/dL Hct 19.7 L* (34.0-46.0) % RDW 15.6 H (11.5-15.5) % Plt Count 6 L* (150-450) k/uL Neutrophils # 0.0 L* (1.3-7.7) k/uL Lymphocytes # 0.9 L (1.0-4.8) k/uL Potassium 3.3 L (3.5-5.1) mmol/L BUN 19 H (7-17) mg/dL Creatinine 0.44 L (0.52-1.04) mg/dL Glucose 120 H (74-99) mg/dL POC Glucose (mg/dL) 163 H (75-99) mg/dL Calcium 7.4 L (8.4-10.2) mg/dL Total Bilirubin 1.4 H (0.2-1.3) mg/dL ALT 87 H (9-52) U/L Total Protein 4.3 L (6.3-8.2) g/dL Albumin 2.2 L (3.5-5.0) g/dL Microbiology - Last 24 Hours (Table) 05/21/19 12:14 Blood Culture - Preliminary Blood No Growth after 24 hours 05/21/19 12:04 Blood Culture - Preliminary Blood No Growth after 24 hours Assessment and Plan Plan: CLL - Treatment with single agent monoclonal antibody (Rituxan) initiated inpatient on 05/07/19 - due to patient' s critical condition and instability requiring ongoing hospitalization. - Patient's total white blood cell count is down to 11 from the 40 range. Her absolute lymphocyte count iis responding as well - Monitor CBC with differential and CMP, Uric acid, LDH, Coags Labs daily - Daily follow up Pancytopenia: Neutropenia - Febrile neutropenia resolved - Persistent, felt to be related to CLL. - Crossmatched platlets re-ordered and transfusion needed today - Transfuse for platelet <10,000 or if symptomatic. - NO ASA, NSAIDs, anticoagulation, ibuprofen or motrin. - Hemoglobin under 7 today, irradiated PRBC given - Re-panculture - Acyclovir - HErpetic lip lesions - Patient is not responding to GCSF will discuss further with Dr. Oliva and likely stop SIRS/Sepsis: Gram Negative Bacilli Blood Cultures Psudomonas Aeruginosa - Antibiotics - ID CONSULT Acute Hypoxic Respiratory Failure: - Pulm following Hx: Breast Cancer: - Continue on Arimidex. 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, no treatment at this time HSV Lips Mucocytisis: - Kools solution - Valtrex Hypokalemia: - Supp today monitor closely Diarrhea: - Stool studies ordered Plan: - Transfuse Crossmatched platlet today and two more units ordered for next week - Rituxan infusion, no chemo with active bacteremia - Transfuse Irradiated PRBC today
[2019-05-23] MEDS: traMADol 50 MG TAB PO PRN (12:08)
[2019-05-23] MEDS: SENNOSIDES-DOCUSATE SODIUM 1 EACH TAB PO SCH ×2 (13:27→20:23)
[2019-05-23] MEDS ORDERED: SODIUM CHLORIDE 0.9% 1,000 ML IV ONE (15:04)
[2019-05-23] MEDS ORDERED: HEPARIN SODIUM 1,000 UN/ML (10ML VL) ONE (15:19)
[2019-05-23] MEDS ORDERED: IOPAMIDOL-370 50ML BTL INJ ONE (15:21)
--- NOTE | 2019-05-23 16:43 | P.PN ---
Subjective Progress Note Date: 05/23/19 73-year-old female with a known history of hypertension, hyperlipidemia and CLL and history of breast cancer in 2014 status post chemoradiation and surgery who is currently being treated for CLL with imatinab and is on follow-up with Dr. Oliva as an outpatient was sent to Hospital due to thrombocytopenia. Patient was recently discharged from hospital 4 days ago for acute lung injury and possible pneumonia, related to multiple blood/platelet transfusion and was treated in the ICU, after stabilization she was discharged. Also at that time patient has pancytopenia, and the discharge age her white cell count was 11.7 K, hemoglobin 8.1 and platelet 18 K. This time hematology oncology team send the patient to emergency room for pancytopenia with WBC 3.0K, hemoglobin 6.6 and platelet 2K. INR is 1.0, potassium of 3.1, creatinine 0.9, and lactic acid is elevated at 2.3. Patient was transferred to ICU for hypotensive and tachypneic and she was saturating 93-97% on 3 L oxygen, staff concerned that her more fluid can compromise her resp function so patient was transferred to the intensive care unit, as per staff pt can not go to select unit. today is more awake and, however she is tachypneic with respiratory rate 22-25, blood pressure is improved to 114/70, she saturating 93-94% and is related to her, she had fever of 103.3 yesterday. Labs from today showing slight improvement in his WBC at 1.6K, hemoglobin improved to 6.7, platelets 3K. Sodium 136, creatinine normal at 0.7, sugar control. Patient remains in the ICU with on antibiotics in the form of vancomycin and cefepime is provided to the patient. Chest x-ray showing diffuse bilateral infiltrate with left pleural effusion, pneumonia versus pulmonary edema. 05/23/2019 Patient is transferred back to general medical floor; vital signs remained stable; labs review show a platelet count of 6 with a hemoglobin of 6.7; oncology is following and recommending to transfuse with 1 unit of crossmatched platelets and 1 unit of irradiated packed RBCs; patient is going to receive Ritoxan today Objective - Vital Signs Vital signs: Vital Signs Temp 98.2 F 05/23/19 05:00 Pulse 78 05/23/19 05:00 Resp 18 05/23/19 05:00 BP 129/75 05/23/19 05:00 Pulse Ox 93 L 05/23/19 09:24 Intake & Output 05/22/19 05/23/19 05/23/19 18:59 06:59 18:59 Intake Total 360 120 Output Total 3800 Balance -3440 120 Weight 98 kg Intake: Oral 360 120 Output: Urine 3800 Other: Voiding Method Indwelling Catheter Indwelling Catheter # Bowel Movements 0 - Exam - Constitutional General appearance: Present: average body habitus, cooperative, no acute distress - EENT Eyes: Present: anicteric sclerae, EOMI, PERRLA, normal appearance ENT: Present: hearing grossly normal, normal oropharynx Ears: bilateral: normal - Neck Neck: Present: normal ROM. Absent: lymphadenopathy, rigidity, thyromegaly Carotids: negative: bruit present Thyroid: bilateral: normal size, negative: enlarged, nodule - Respiratory Respiratory: bilateral: CTA, negative: rales, rhonchi, wheezing - Cardiovascular Rhythm: regular Heart sounds: normal: S1, S2 Abnormal Heart Sounds: Absent: systolic murmur, diastolic murmur - Gastrointestinal General gastrointestinal: Present: normal bowel sounds, soft. Absent: distended, organomegaly, tenderness - Genitourinary Genitourinary Comment(s): deferred - Integumentary Integumentary: Present: normal turgor. Absent: jaundiced, rash, ulcer - Neurologic Neurologic: Present: CNII-XII intact. Absent: focal deficits - Musculoskeletal Musculoskeletal: Present: gait normal, strength equal bilaterally - Psychiatric Psychiatric: Present: A&O x's 3, appropriate affect, intact judgment & insight - Labs CBC & Chem 7: 05/23/19 07:47 05/23/19 07:47 Labs: Abnormal Lab Results - Last 24 Hours (Table) 05/22/19 05/22/19 05/22/19 Range/Units 07:09 11:15 16:48 WBC (3.8-10.6) k/uL RBC (3.80-5.40) m/uL Hgb (11.4-16.0) gm/dL Hct (34.0-46.0) % RDW (11.5-15.5) % Plt Count (150-450) k/uL Neutrophils # 0.1 L* (1.3-7.7) k/uL Lymphocytes # (1.0-4.8) k/uL Potassium (3.5-5.1) mmol/L BUN (7-17) mg/dL Creatinine (0.52-1.04) mg/dL Glucose (74-99) mg/dL POC Glucose (mg/dL) 118 H 145 H (75-99) mg/dL Calcium (8.4-10.2) mg/dL Total Bilirubin (0.2-1.3) mg/dL ALT (9-52) U/L Total Protein (6.3-8.2) g/dL Albumin (3.5-5.0) g/dL 05/22/19 05/23/19 05/23/19 Range/Units 19:03 07:11 07:47 WBC 1.0 L* (3.8-10.6) k/uL RBC 2.15 L (3.80-5.40) m/uL Hgb 6.7 L* (11.4-16.0) gm/dL Hct 19.7 L* (34.0-46.0) % RDW 15.6 H (11.5-15.5) % Plt Count 6 L* (150-450) k/uL Neutrophils # 0.0 L* (1.3-7.7) k/uL Lymphocytes # 0.9 L (1.0-4.8) k/uL Potassium (3.5-5.1) mmol/L BUN (7-17) mg/dL Creatinine (0.52-1.04) mg/dL Glucose (74-99) mg/dL POC Glucose (mg/dL) 140 H 122 H (75-99) mg/dL Calcium (8.4-10.2) mg/dL Total Bilirubin (0.2-1.3) mg/dL ALT (9-52) U/L Total Protein (6.3-8.2) g/dL Albumin (3.5-5.0) g/dL 05/23/19 Range/Units 07:47 WBC (3.8-10.6) k/uL RBC (3.80-5.40) m/uL Hgb (11.4-16.0) gm/dL Hct (34.0-46.0) % RDW (11.5-15.5) % Plt Count (150-450) k/uL Neutrophils # (1.3-7.7) k/uL Lymphocytes # (1.0-4.8) k/uL Potassium 3.3 L (3.5-5.1) mmol/L BUN 19 H (7-17) mg/dL Creatinine 0.44 L (0.52-1.04) mg/dL Glucose 120 H (74-99) mg/dL POC Glucose (mg/dL) (75-99) mg/dL Calcium 7.4 L (8.4-10.2) mg/dL Total Bilirubin 1.4 H (0.2-1.3) mg/dL ALT 87 H (9-52) U/L Total Protein 4.3 L (6.3-8.2) g/dL Albumin 2.2 L (3.5-5.0) g/dL Microbiology - Last 24 Hours (Table) 05/21/19 12:14 Blood Culture - Preliminary Blood No Growth after 24 hours 05/21/19 12:04 Blood Culture - Preliminary Blood No Growth after 24 hours Assessment and Plan Assessment: 1. Pancytopenia: Neutropenia/ CLL - Febrile neutropenia resolved - Persistent, felt to be related to CLL. - Crossmatched platlets re-ordered and transfusion needed today - Transfuse for platelet <10,000 or if symptomatic. - NO ASA, NSAIDs, anticoagulation, ibuprofen or motrin. - Hemoglobin under 7 today, irradiated PRBC given - Re-panculture recommended by oncology 2. SIRS/Sepsis: Gram Negative Bacilli Blood Cultures; pseudomonas aeruginosa; source possible pneumonia versus Mediport site Cultures from port and peripheral site have been obtained and are pending; patient has been switched from IV cefepime to Azactam 2 g IV every 8 hours due to development of rash; IDs following 3. Acute Hypoxic Respiratory Failure: Resolved - Pulm following; clinically stable 4. Hx: Breast Cancer: - Continue on Arimidex. 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 HSV Lips/ Mucocytisis: - Kools solution - Valtrex 7. Hypokalemia: - Supplemented today; we will continue to monitor closely 8. DVT prophylaxis; SCDs only due to marked anemia CODE STATUS; full code Time with Patient: Greater than 30
[2019-05-23 17:29] LABS: Glucose,Whole Blood 130 mg/dL (75-99)
--- NOTE | 2019-05-23 18:10 | PN ---
PROGRESS NOTE DATE OF SERVICE: 05/23/2019. REASON FOR FOLLOWUP: Pseudomonas aeruginosa bacteremia and Rash. INTERVAL HISTORY: The patient is currently afebrile. The patient has been breathing comfortably. Oral sores has improved. The cough remains to be dry in nature, though decreased in intensity. No nausea or vomiting. No abdominal pain. No diarrhea. PHYSICAL EXAMINATION: Blood pressure is 156/74 with a pulse of 82, temperature 99.1. She is 92% on room air. General description is an elderly female lying in bed in no distress. Respiratory system: Unlabored breathing with decreased breath sounds in the bases. Heart is S1, S2. Regular rate and rhythm. Abdomen soft, no tenderness. LABS: Hemoglobin is 6.7 with white count 1.0, BUN of 19, creatinine 0.44. DIAGNOSTIC IMPRESSION AND PLAN: Patient with Pseudomonas aeruginosa bacteremia source, possible pneumonia. Blood culture repeat has been negative and the negative very quickly making it to be less likely intravascular source or MediPort infection. The patient did develop a rash to cefepime which has been discontinued. Currently covered with Azactam to continue while monitoring clinical course closely. Duration of antibiotic should be at least 2 weeks from negative blood culture and continue supportive care. MMODL / IJN: [id number] / MTDD
[2019-05-23] MEDS: ATORVASTATIN 40 MG TAB PO SCH (20:23)
[2019-05-23 21:01] LABS: Glucose,Whole Blood 184 mg/dL (75-99)
[2019-05-24] MEDS: SODIUM CHLORIDE 0.9% 500 ML 500 ML IV SCH (03:25)
[2019-05-24] MEDS: AZTREONAM 2 GM in SODIUM CHLORIDE 0.9% 100 ML IVPB SCH ×3 (03:26→19:44)
[2019-05-24 07:21] LABS: Glucose,Whole Blood 174 mg/dL (75-99)
[2019-05-24 07:39] LABS: Basophils % (A) 0 %; Eosinophils % (A) 1 %; HCT 21.4 % (34.0-46.0); HGB 7.2 gm/dL (11.4-16.0); Lymphocytes # (A) 2.2 k/uL (1.0-4.8); Lymphocytes % (A) 93 %; MCH 30.5 pg (25.0-35.0); MCHC 33.6 g/dL (31.0-37.0); MCV 90.8 fL (80.0-100.0); Monocytes % (A) 0 %; Neutrophils % (A) 5 %; RBC 2.35 m/uL (3.80-5.40); RDW 14.5 % (11.5-15.5); WBC 2.4 k/uL (3.8-10.6)
[2019-05-24 07:51] LABS: Neutrophils # (A) 0.1 k/uL (1.3-7.7); Platelet Count 12 k/uL (150-450)
[2019-05-24 08:02] LABS: African American GFR (CKD) >90 (>60 ml/min/1.73 sqM); Anion Gap 7 mmol/L; Blood Urea Nitrogen 22 mg/dL (7-17); Calcium 7.1 mg/dL (8.4-10.2); Carbon Dioxide 26 mmol/L (22-30); Chloride 105 mmol/L (98-107); Glucose 160 mg/dL (74-99); Potassium 3.2 mmol/L (3.5-5.1); Sodium 138 mmol/L (137-145)
[2019-05-24] MEDS: FILGRASTIM-SNDZ 480 MCG/0.8 ML SYRINGE SQ SCH (08:46)
[2019-05-24] MEDS: POLYETHYLENE GLYCOL 3350 17 GM POWD.PACK PO SCH (08:46)
[2019-05-24] MEDS: INSULIN ASPART (NovoLOG) 100 UNIT/ML VIAL SQ SCH ×4 (08:47→20:37)
[2019-05-24] MEDS: ALLOPURINOL 300 MG TAB PO SCH (08:47)
[2019-05-24] MEDS: PANTOPRAZOLE 40 MG TABLET PO SCH ×2 (08:47→18:06)
[2019-05-24] MEDS: valACYclovir HCL 1,000 MG TABLET PO SCH ×2 (08:47→20:37)
[2019-05-24] MEDS: POTASSIUM CHLORIDE ER 20 MEQ TAB.ER PO SCH ×2 (08:48→10:13)
[2019-05-24] MEDS: SENNOSIDES-DOCUSATE SODIUM 1 EACH TAB PO SCH ×2 (08:48→20:38)
[2019-05-24 11:28] LABS: Glucose,Whole Blood 202 mg/dL (75-99)
[2019-05-24] MEDS: traMADol 50 MG TAB PO PRN ×2 (13:16→20:37)
[2019-05-24 17:14] LABS: Glucose,Whole Blood 167 mg/dL (75-99)
[2019-05-24 20:05] LABS: Glucose,Whole Blood 201 mg/dL (75-99)
[2019-05-24] MEDS: ATORVASTATIN 40 MG TAB PO SCH (20:37)
[2019-05-24] MEDS: guaiFENesin SYRUP 100MG/5ML 200 MG/10 ML CUP PO PRN (22:00)
[2019-05-25] MEDS: SODIUM CHLORIDE 0.9% 500 ML 500 ML IV SCH (03:42)
[2019-05-25] MEDS: AZTREONAM 2 GM in SODIUM CHLORIDE 0.9% 100 ML IVPB SCH ×3 (04:16→20:18)
[2019-05-25 07:11] LABS: Glucose,Whole Blood 113 mg/dL (75-99)
[2019-05-25 07:12] LABS: Basophils % (A) 0 %; Eosinophils % (A) 1 %; HCT 20.6 % (34.0-46.0); Lymphocytes # (A) 1.7 k/uL (1.0-4.8); Lymphocytes % (A) 94 %; MCH 30.1 pg (25.0-35.0); MCHC 32.9 g/dL (31.0-37.0); MCV 91.5 fL (80.0-100.0); Mean Platelet Volume 9.9; Monocytes % (A) 0 %; Neutrophils % (A) 3 %; RBC 2.25 m/uL (3.80-5.40); RDW 15.2 % (11.5-15.5); WBC 1.8 k/uL (3.8-10.6)
[2019-05-25 07:21] LABS: HGB 6.8 gm/dL (11.4-16.0); Neutrophils # (A) 0.1 k/uL (1.3-7.7)
[2019-05-25 07:26] LABS: Poikilocytosis (M) Present
[2019-05-25 07:27] LABS: Platelet Count 3 k/uL (150-450)
[2019-05-25] MEDS: INSULIN ASPART (NovoLOG) 100 UNIT/ML VIAL SQ SCH ×4 (07:38→20:18)
[2019-05-25 07:40] LABS: ALT 69 U/L (9-52); AST 20 U/L (14-36); African American GFR (CKD) >90 (>60 ml/min/1.73 sqM); Albumin 2.4 g/dL (3.5-5.0); Alkaline Phosphatase 80 U/L (38-126); Anion Gap 8 mmol/L; Blood Urea Nitrogen 21 mg/dL (7-17); Calcium 7.2 mg/dL (8.4-10.2); Carbon Dioxide 28 mmol/L (22-30); Chloride 103 mmol/L (98-107); Glucose 110 mg/dL (74-99); Magnesium 1.6 mg/dL (1.6-2.3); Potassium 3.9 mmol/L (3.5-5.1); Sodium 139 mmol/L (137-145); Total Bilirubin 1.2 mg/dL (0.2-1.3); Total Protein 4.5 g/dL (6.3-8.2)
[2019-05-25] MEDS: FILGRASTIM-SNDZ 480 MCG/0.8 ML SYRINGE SQ SCH (07:45)
[2019-05-25] MEDS: ALLOPURINOL 300 MG TAB PO SCH (07:45)
[2019-05-25] MEDS: valACYclovir HCL 1,000 MG TABLET PO SCH ×2 (07:45→20:19)
[2019-05-25] MEDS: SENNOSIDES-DOCUSATE SODIUM 1 EACH TAB PO SCH ×2 (07:45→20:18)
[2019-05-25] MEDS: PANTOPRAZOLE 40 MG TABLET PO SCH ×2 (07:45→17:11)
[2019-05-25] MEDS: POLYETHYLENE GLYCOL 3350 17 GM POWD.PACK PO SCH (07:45)
--- NOTE | 2019-05-25 09:25 | P.PN ---
Subjective Progress Note Date: 05/24/19 Principal diagnosis: Pancytopenia SIRS/sepsis; pseudomonas aeruginosa bacteremia/pneumonia Acute hypoxic respiratory failure Hypokalemia 73-year-old female with a known history of hypertension, hyperlipidemia and CLL and history of breast cancer in 2014 status post chemoradiation and surgery who is currently being treated for CLL with imatinab and is on follow-up with Dr. Oliva as an outpatient was sent to Hospital due to thrombocytopenia. Patient was recently discharged from hospital 4 days ago for acute lung injury and possible pneumonia, related to multiple blood/platelet transfusion and was treated in the ICU, after stabilization she was discharged. Also at that time karley contreras has pancytopenia, and the discharge age her white cell count was 11.7 K, hemoglobin 8.1 and platelet 18 K. This time hematology oncology team send the patient to emergency room for pancytopenia with WBC 3.0K, hemoglobin 6.6 and platelet 2K. INR is 1.0, potassium of 3.1, creatinine 0.9, and lactic acid is elevated at 2.3. Patient was transferred to ICU for hypotensive and tachypneic and she was saturating 93-97% on 3 L oxygen, staff concerned that her more fluid can compromise her resp function so patient was transferred to the intensive care unit, as per staff pt can not go to select unit. today is more awake and, however she is tachypneic with respiratory rate 22-25, blood pressure is improved to 114/70, she saturating 93-94% and is related to her, she had fever of 103.3 yesterday. Labs from today showing slight improvement in his WBC at 1.6K, hemoglobin improved to 6.7, platelets 3K. Sodium 136, creatinine normal at 0.7, sugar control. Patient remains in the ICU with on antibiotics in the form of vancomycin and cefepime is provided to the patient. Chest x-ray showing diffuse bilateral infiltrate with left pleural effusion, pneumonia versus pulmonary edema. 05/23/2019 Patient is transferred back to general medical floor; vital signs remained stable; labs review show a platelet count of 6 with a hemoglobin of 6.7; oncology is following and recommending to transfuse with 1 unit of crossmatched platelets and 1 unit of irradiated packed RBCs; patient is going to receive Ritoxan today 05/24/2019 Patient is seen and evaluated in room at bedside; denies any specific complaints at this time Vital signs are reviewed and stable at temperature of 98.1, pulse 78, respiration 20 and blood pressure of 138/78 Lab review shows WBC of 2.4, hemoglobin of 7.2 and platelet count of 12; sodium of 138, potassium 3.2, BUN/creatinine of 22/0.4; blood glucoses ranging between 160-174 Heme/oncology is following and recommending platelet transfusion if platelet count of less than 10,000 or if symptomatic and hemoglobin less than 7.0;; no need for transfusion at this time We will supplement with oral potassium at 40 mEq by mouth 1; we will continue to monitor electrolytes Patient remains on IV antibiotics for pseudomonas aeruginosa bacteremia possible source being pneumonia and less likely intravascular source or MediPort infection since blood cultures came back negative fairly quickly; IDs following and recommending to continue antibiotic treatment for at least 2 weeks from negative blood cultures; await final tailoring of antibiotic therapy by ID Objective - Vital Signs Vital signs: Vital Signs Temp 98.1 F 05/24/19 03:18 Pulse 78 05/24/19 03:18 Resp 20 05/24/19 03:18 BP 138/78 05/24/19 03:18 Pulse Ox 94 L 05/24/19 03:18 Intake & Output 05/23/19 05/24/19 05/24/19 18:59 06:59 18:59 Intake Total 722.056 5773 Output Total 500 2600 Balance 491.917 -1460 Intake: IV 25 Intake, IV Titration 212.917 220 Amount Aztreonam 2 gm In Sodium 100 100 Chloride 0.9% 100 ml @ 100 mls/hr IVPB Q8H [facility] Rx#:[id number] Sodium Chloride 0.9% 500 120 ml 500 ml @ 20 mls/hr IV .Q24H [facility] Rx#:[id number] riTUXimab 700 mg In 112.917 Sodium Chloride 0.9% 500 ml 500 ml @ Titrate IV . Q0M [facility] Rx#:[id number] Oral 300 Blood Product 754 620 Platelet Irr Pheresis 2 377 Acda Unit [id number] Rc Irr As1 Unit 310 [id number] Output: Urine 500 2600 Uretheral (Espinoza) 1200 Other: Voiding Method Indwelling Catheter Indwelling Catheter # Bowel Movements 0 - Exam - Constitutional General appearance: Present: average body habitus, cooperative, no acute distress - EENT Eyes: Present: anicteric sclerae, EOMI, PERRLA, normal appearance ENT: Present: hearing grossly normal, normal oropharynx Ears: bilateral: normal - Neck Neck: Present: normal ROM. Absent: lymphadenopathy, rigidity, thyromegaly Carotids: negative: bruit present Thyroid: bilateral: normal size, negative: enlarged, nodule - Respiratory Respiratory: bilateral: CTA, negative: rales, rhonchi, wheezing - Cardiovascular Rhythm: regular Heart sounds: normal: S1, S2 Abnormal Heart Sounds: Absent: systolic murmur, diastolic murmur - Gastrointestinal General gastrointestinal: Present: normal bowel sounds, soft. Absent: distended, organomegaly, tenderness - Genitourinary Genitourinary Comment(s): deferred - Integumentary Integumentary: Present: normal turgor. Absent: jaundiced, rash, ulcer - Neurologic Neurologic: Present: CNII-XII intact. Absent: focal deficits - Musculoskeletal Musculoskeletal: Present: gait normal, strength equal bilaterally - Psychiatric Psychiatric: Present: A&O x's 3, appropriate affect, intact judgment & insight - Labs CBC & Chem 7: 05/24/19 07:27 05/24/19 07:27 Labs: Abnormal Lab Results - Last 24 Hours (Table) 05/23/19 05/23/19 05/23/19 Range/Units 10:04 11:15 17:27 WBC (3.8-10.6) k/uL RBC (3.80-5.40) m/uL Hgb (11.4-16.0) gm/dL Hct (34.0-46.0) % Plt Count (150-450) k/uL Neutrophils # (1.3-7.7) k/uL Potassium (3.5-5.1) mmol/L BUN (7-17) mg/dL Creatinine (0.52-1.04) mg/dL Glucose (74-99) mg/dL POC Glucose (mg/dL) 163 H 130 H (75-99) mg/dL Calcium (8.4-10.2) mg/dL Crossmatch See Detail 05/23/19 05/24/19 05/24/19 Range/Units 21:00 07:15 07:27 WBC 2.4 L (3.8-10.6) k/uL RBC 2.35 L (3.80-5.40) m/uL Hgb 7.2 L (11.4-16.0) gm/dL Hct 21.4 L (34.0-46.0) % Plt Count 12 L* D (150-450) k/uL Neutrophils # 0.1 L* (1.3-7.7) k/uL Potassium (3.5-5.1) mmol/L BUN (7-17) mg/dL Creatinine (0.52-1.04) mg/dL Glucose (74-99) mg/dL POC Glucose (mg/dL) 184 H 174 H (75-99) mg/dL Calcium (8.4-10.2) mg/dL Crossmatch 05/24/19 Range/Units 07:27 WBC (3.8-10.6) k/uL RBC (3.80-5.40) m/uL Hgb (11.4-16.0) gm/dL Hct (34.0-46.0) % Plt Count (150-450) k/uL Neutrophils # (1.3-7.7) k/uL Potassium 3.2 L (3.5-5.1) mmol/L BUN 22 H (7-17) mg/dL Creatinine 0.46 L (0.52-1.04) mg/dL Glucose 160 H (74-99) mg/dL POC Glucose (mg/dL) (75-99) mg/dL Calcium 7.1 L (8.4-10.2) mg/dL Crossmatch Microbiology - Last 24 Hours (Table) 05/21/19 12:14 Blood Culture - Preliminary Blood No Growth after 48 hours 05/21/19 12:04 Blood Culture - Preliminary Blood No Growth after 48 hours Assessment and Plan Assessment: 1. Pancytopenia: Neutropenia/ CLL - Febrile neutropenia resolved - Persistent, felt to be related to CLL. - Crossmatched platlets re-ordered and transfusion needed today - Transfuse for platelet <10,000 or if symptomatic. - NO ASA, NSAIDs, anticoagulation, ibuprofen or motrin. - Hemoglobin under 7 today, irradiated PRBC given - Re-panculture recommended by oncology 2. SIRS/Sepsis: Gram Negative Bacilli Blood Cultures; pseudomonas aeruginosa; source possible pneumonia versus Mediport site Cultures from port and peripheral site have been obtained and are pending; patient has been switched from IV cefepime to Azactam 2 g IV every 8 hours due to development of rash; IDs following 3. Acute Hypoxic Respiratory Failure: Resolved - Pulm following; clinically stable 4. Hx: Breast Cancer: - Continue on Arimidex. 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 HSV Lips/ Mucocytisis: - Kools solution - Valtrex 7. Hypokalemia: - Supplemented today; we will continue to monitor closely 8. DVT prophylaxis; SCDs only due to marked anemia CODE STATUS; full code Time with Patient: Greater than 30
[2019-05-25] MEDS ORDERED: ACETAMINOPHEN TAB 325 MG TAB PO STA (10:10)
[2019-05-25] MEDS: traMADol 50 MG TAB PO PRN ×2 (10:35→20:18)
[2019-05-25 13:05] LABS: Glucose,Whole Blood 115 mg/dL (75-99)
--- NOTE | 2019-05-25 13:52 | P.PN ---
Subjective Progress Note Date: 05/25/19 Principal diagnosis: Pancytopenia SIRS/sepsis; pseudomonas aeruginosa bacteremia/pneumonia Acute hypoxic respiratory failure Hypokalemia 73-year-old female with a known history of hypertension, hyperlipidemia and CLL and history of breast cancer in 2014 status post chemoradiation and surgery who is currently being treated for CLL with imatinab and is on follow-up with Dr. Oliva as an outpatient was sent to Hospital due to thrombocytopenia. Patient was recently discharged from hospital 4 days ago for acute lung injury and possible pneumonia, related to multiple blood/platelet transfusion and was treated in the ICU, after stabilization she was discharged. Also at that time karley contreras has pancytopenia, and the discharge age her white cell count was 11.7 K, hemoglobin 8.1 and platelet 18 K. This time hematology oncology team send the patient to emergency room for pancytopenia with WBC 3.0K, hemoglobin 6.6 and platelet 2K. INR is 1.0, potassium of 3.1, creatinine 0.9, and lactic acid is elevated at 2.3. Patient was transferred to ICU for hypotensive and tachypneic and she was saturating 93-97% on 3 L oxygen, staff concerned that her more fluid can compromise her resp function so patient was transferred to the intensive care unit, as per staff pt can not go to [facility] unit. today is more awake and, however she is tachypneic with respiratory rate 22-25, blood pressure is improved to 114/70, she saturating 93-94% and is related to her, she had fever of 103.3 yesterday. Labs from today showing slight improvement in his WBC at 1.6K, hemoglobin improved to 6.7, platelets 3K. Sodium 136, creatinine normal at 0.7, sugar control. Patient remains in the ICU with on antibiotics in the form of vancomycin and cefepime is provided to the patient. Chest x-ray showing diffuse bilateral infiltrate with left pleural effusion, pneumonia versus pulmonary edema. 05/23/2019 Patient is transferred back to general medical floor; vital signs remained stable; labs review show a platelet count of 6 with a hemoglobin of 6.7; oncology is following and recommending to transfuse with 1 unit of crossmatched platelets and 1 unit of irradiated packed RBCs; patient is going to receive Ritoxan today 05/24/2019 Patient is seen and evaluated in room at bedside; denies any specific complaints at this time Vital signs are reviewed and stable at temperature of 98.1, pulse 78, respiration 20 and blood pressure of 138/78 Lab review shows WBC of 2.4, hemoglobin of 7.2 and platelet count of 12; sodium of 138, potassium 3.2, BUN/creatinine of 22/0.4; blood glucoses ranging between 160-174 Heme/oncology is following and recommending platelet transfusion if platelet count of less than 10,000 or if symptomatic and hemoglobin less than 7.0;; no need for transfusion at this time We will supplement with oral potassium at 40 mEq by mouth 1; we will continue to monitor electrolytes Patient remains on IV antibiotics for pseudomonas aeruginosa bacteremia possible source being pneumonia and less likely intravascular source or MediPort infection since blood cultures came back negative fairly quickly; IDs following and recommending to continue antibiotic treatment for at least 2 weeks from negative blood cultures; await final tailoring of antibiotic therapy by ID 05/25/2019 Patient is seen and evaluated in the room at bedside; no specific complaints; would want to go home though Vital signs remained stable with a temperature of 99, pulse 73, respiration 22 and blood pressure 158/69; SpO2 of 98% on room air Labs are reviewed showing a decrease in white blood count from 2.4 yesterday to 1.8 this morning; hemoglobin has trended down to 6.8 from 7.2 yesterday with a platelet count of 3; chemical profile remained stable Oncology has ordered 1 unit of packed RBCs and 5 units of platelets; we will continue to monitor CBC closely Patient remains on IV antibiotics for pseudomonas bacteremia, with possible source being pneumonia rather than intravascular source or MediPort infection; repeat blood cultures have been negative so far; IDs following and recommending to continue IV antibiotic therapy for at least 2 weeks from negative blood cultures; await final recommendations from ID for antibiotic therapy Objective - Vital Signs Vital signs: Vital Signs Temp 99 F 05/25/19 11:03 Pulse 73 05/25/19 11:03 Resp 22 05/25/19 11:03 BP 158/69 05/25/19 11:03 Pulse Ox 93 L 05/25/19 11:03 Intake & Output 05/24/19 05/25/19 05/25/19 18:59 06:59 18:59 Intake Total 3802 920 0 Output Total 2100 600 Balance 1702 320 0 Intake: Intake, IV Titration 100 200 Amount Aztreonam 2 gm In Sodium 100 200 Chloride 0.9% 100 ml @ 100 mls/hr IVPB Q8H [facility] Rx#:[id number] Oral 3702 720 Blood Product 0 Platelet Irr Pheresis 0 Acda1 Unit [id number] Output: Urine 2100 600 Uretheral (Espinoza) 600 Other: Voiding Method Indwelling Catheter Indwelling Catheter # Bowel Movements 0 - Exam - Constitutional General appearance: Present: average body habitus, cooperative, no acute distress - EENT Eyes: Present: anicteric sclerae, EOMI, PERRLA, normal appearance ENT: Present: hearing grossly normal, normal oropharynx Ears: bilateral: normal - Neck Neck: Present: normal ROM. Absent: lymphadenopathy, rigidity, thyromegaly Carotids: negative: bruit present Thyroid: bilateral: normal size, negative: enlarged, nodule - Respiratory Respiratory: bilateral: CTA, negative: rales, rhonchi, wheezing - Cardiovascular Rhythm: regular Heart sounds: normal: S1, S2 Abnormal Heart Sounds: Absent: systolic murmur, diastolic murmur - Gastrointestinal General gastrointestinal: Present: normal bowel sounds, soft. Absent: distended, organomegaly, tenderness - Genitourinary Genitourinary Comment(s): deferred - Integumentary Integumentary: Present: normal turgor. Absent: jaundiced, rash, ulcer - Neurologic Neurologic: Present: CNII-XII intact. Absent: focal deficits - Musculoskeletal Musculoskeletal: Present: gait normal, strength equal bilaterally - Psychiatric Psychiatric: Present: A&O x's 3, appropriate affect, intact judgment & insight - Labs CBC & Chem 7: 05/25/19 06:47 05/25/19 06:47 Labs: Abnormal Lab Results - Last 24 Hours (Table) 05/23/19 05/24/19 05/24/19 Range/Units 10:04 11:22 17:11 WBC (3.8-10.6) k/uL RBC (3.80-5.40) m/uL Hgb (11.4-16.0) gm/dL Hct (34.0-46.0) % Plt Count (150-450) k/uL Neutrophils # (1.3-7.7) k/uL BUN (7-17) mg/dL Creatinine (0.52-1.04) mg/dL Glucose (74-99) mg/dL POC Glucose (mg/dL) 202 H 167 H (75-99) mg/dL Calcium (8.4-10.2) mg/dL ALT (9-52) U/L Total Protein (6.3-8.2) g/dL Albumin (3.5-5.0) g/dL Crossmatch See Detail 05/24/19 05/25/19 05/25/19 Range/Units 20:04 06:47 06:47 WBC 1.8 L (3.8-10.6) k/uL RBC 2.25 L (3.80-5.40) m/uL Hgb 6.8 L* (11.4-16.0) gm/dL Hct 20.6 L (34.0-46.0) % Plt Count 3 L* D (150-450) k/uL Neutrophils # 0.1 L* (1.3-7.7) k/uL BUN 21 H (7-17) mg/dL Creatinine 0.46 L (0.52-1.04) mg/dL Glucose 110 H (74-99) mg/dL POC Glucose (mg/dL) 201 H (75-99) mg/dL Calcium 7.2 L (8.4-10.2) mg/dL ALT 69 H (9-52) U/L Total Protein 4.5 L (6.3-8.2) g/dL Albumin 2.4 L (3.5-5.0) g/dL Crossmatch 05/25/19 Range/Units 07:07 WBC (3.8-10.6) k/uL RBC (3.80-5.40) m/uL Hgb (11.4-16.0) gm/dL Hct (34.0-46.0) % Plt Count (150-450) k/uL Neutrophils # (1.3-7.7) k/uL BUN (7-17) mg/dL Creatinine (0.52-1.04) mg/dL Glucose (74-99) mg/dL POC Glucose (mg/dL) 113 H (75-99) mg/dL Calcium (8.4-10.2) mg/dL ALT (9-52) U/L Total Protein (6.3-8.2) g/dL Albumin (3.5-5.0) g/dL Crossmatch Microbiology - Last 24 Hours (Table) 05/21/19 12:14 Blood Culture - Preliminary Blood No Growth after 72 hours 05/21/19 12:04 Blood Culture - Preliminary Blood No Growth after 72 hours Assessment and Plan Assessment: 1. Pancytopenia: Neutropenia/ CLL - Febrile neutropenia resolved - Persistent, felt to be related to CLL. - Crossmatched platlets re-ordered and transfusion needed today - Transfuse for platelet <10,000 or if symptomatic. - NO ASA, NSAIDs, anticoagulation, ibuprofen or motrin. - Hemoglobin under 7 today, irradiated PRBC given - Re-panculture recommended by oncology 2. SIRS/Sepsis: Gram Negative Bacilli Blood Cultures; pseudomonas aeruginosa; source possible pneumonia versus Mediport site Cultures from port and peripheral site have been obtained and are pending; patient has been switched from IV cefepime to Azactam 2 g IV every 8 hours due to development of rash; IDs following 3. Acute Hypoxic Respiratory Failure: Resolved - Pulm following; clinically stable 4. Hx: Breast Cancer: - Continue on Arimidex. 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 HSV Lips/ Mucocytisis: - Kools solution - Valtrex 7. Hypokalemia: - Supplemented today; we will continue to monitor closely 8. DVT prophylaxis; SCDs only due to marked anemia CODE STATUS; full code Time with Patient: Greater than 30
[2019-05-25 17:11] LABS: Glucose,Whole Blood 112 mg/dL (75-99)
[2019-05-25 19:44] LABS: HCT 23.3 % (34.0-46.0); HGB 7.9 gm/dL (11.4-16.0); MCH 30.7 pg (25.0-35.0); MCHC 33.7 g/dL (31.0-37.0); Mean Platelet Volume 7.5; RBC 2.56 m/uL (3.80-5.40); WBC 1.7 k/uL (3.8-10.6)
[2019-05-25 20:09] LABS: Neutrophils % (M) 3 %
[2019-05-25 20:10] LABS: Hypochromasia (M) Present; Lymphocytes # (M) 1.65 k/uL (1.0-4.8); Nucleated Red Blood Cells 0 /100 WBC (0-0); Poikilocytosis (M) Present; Total Cells Counted 100
[2019-05-25 20:11] LABS: Platelet Count 23 k/uL (150-450)
[2019-05-25] MEDS: ATORVASTATIN 40 MG TAB PO SCH (20:18)
[2019-05-25 20:32] LABS: Glucose,Whole Blood 146 mg/dL (75-99)
--- NOTE | 2019-05-26 01:33 | PN ---
PROGRESS NOTE DATE OF SERVICE: 05/25/2019. REASON FOR FOLLOWUP: 1. Pseudomonas bacteremia. 2. Drug infection. INTERVAL HISTORY: The patient is currently afebrile. The patient has been breathing comfortably. The patient overall oral sores has improved. No nausea, no vomiting. Denies any chest pain. Cough has decreased intensity. No abdominal pain. No diarrhea. PHYSICAL EXAMINATION: Blood pressure 149/65 with a pulse of 81, temperature 98.2. She is 94% on room air. General description is an elderly female, lying in bed in no distress. HEENT examination: Oral sores have improved. Lungs unlabored breathing with decreased breath sounds in the bases. No wheeze. Heart S1, S2. Regular rate and rhythm. Abdomen soft, no tenderness. LABS: Hemoglobin 7.1, white count 1.7, platelet count is 23. Blood culture repeat has been negative so far. DIAGNOSTIC IMPRESSION AND PLAN: Patient with Pseudomonas aeruginosa bacteremia, possible pneumonia. The patient seemed to show overall clinical improvement. Blood culture repeat 05/21 has been negative so far. Currently on Azactam because of her cefepime, that will continue. She will need at least 2 weeks of antibiotic therapy for the culture bacteremia and monitor clinical course closely. Continue supportive care. MMODL / IJN: [id number] / KARRIE
[2019-05-26] MEDS: AZTREONAM 2 GM in SODIUM CHLORIDE 0.9% 100 ML IVPB SCH ×3 (03:58→21:16)
[2019-05-26 07:28] LABS: Glucose,Whole Blood 101 mg/dL (75-99)
[2019-05-26] MEDS: INSULIN ASPART (NovoLOG) 100 UNIT/ML VIAL SQ SCH ×4 (08:00→21:16)
[2019-05-26] MEDS: ALLOPURINOL 300 MG TAB PO SCH (08:08)
[2019-05-26] MEDS: SENNOSIDES-DOCUSATE SODIUM 1 EACH TAB PO SCH ×2 (08:08→21:15)
[2019-05-26] MEDS: POLYETHYLENE GLYCOL 3350 17 GM POWD.PACK PO SCH (08:08)
[2019-05-26] MEDS: PANTOPRAZOLE 40 MG TABLET PO SCH ×2 (08:08→18:05)
[2019-05-26] MEDS: FILGRASTIM-SNDZ 480 MCG/0.8 ML SYRINGE SQ SCH (08:09)
[2019-05-26] MEDS: traMADol 50 MG TAB PO PRN ×3 (08:19→21:15)
[2019-05-26 08:54] LABS: ALT 56 U/L (9-52); AST 13 U/L (14-36); African American GFR (CKD) >90 (>60 ml/min/1.73 sqM); Albumin 2.4 g/dL (3.5-5.0); Alkaline Phosphatase 71 U/L (38-126); Anion Gap 6 mmol/L; Blood Urea Nitrogen 16 mg/dL (7-17); Calcium 6.9 mg/dL (8.4-10.2); Carbon Dioxide 28 mmol/L (22-30); Chloride 101 mmol/L (98-107); Glucose 113 mg/dL (74-99); Potassium 3.4 mmol/L (3.5-5.1); Sodium 135 mmol/L (137-145); Total Bilirubin 1.4 mg/dL (0.2-1.3); Total Protein 4.6 g/dL (6.3-8.2)
[2019-05-26 08:59] LABS: Basophils % (A) 0 %; Eosinophils % (A) 1 %; HGB 7.5 gm/dL (11.4-16.0); Lymphocytes # (A) 1.6 k/uL (1.0-4.8); Lymphocytes % (A) 92 %; MCH 30.9 pg (25.0-35.0); MCHC 34.3 g/dL (31.0-37.0); MCV 90.1 fL (80.0-100.0); Mean Platelet Volume 7.5; Monocytes % (A) 1 %; Neutrophils # (A) 0.1 k/uL (1.3-7.7); Neutrophils % (A) 4 %; RBC 2.44 m/uL (3.80-5.40); RDW 14.7 % (11.5-15.5); WBC 1.7 k/uL (3.8-10.6)
[2019-05-26] MEDS: valACYclovir HCL 1,000 MG TABLET PO SCH ×2 (09:18→21:16)
[2019-05-26] MEDS: SODIUM CHLORIDE 0.9% 500 ML 500 ML IV SCH (09:18)
[2019-05-26 10:58] LABS: Platelet Count 19 k/uL (150-450)
[2019-05-26 10:59] LABS: Anisocytosis (M) Present; Poikilocytosis (M) Present
[2019-05-26] MEDS ORDERED: POTASSIUM CHLORIDE ER 20 MEQ TAB.ER PO STA (11:23)
[2019-05-26] MEDS ORDERED: MAGNESIUM HYDROXIDE 2,400 MG/10 ML CUP PO PRN (11:28)
[2019-05-26] MEDS ORDERED: SENNOSIDES-DOCUSATE SODIUM 1 EACH TAB PO SCH (11:30)
[2019-05-26] MEDS ORDERED: SENNOSIDES-DOCUSATE SODIUM 1 EACH TAB PO ONE (11:30)
[2019-05-26 11:39] LABS: Glucose,Whole Blood 115 mg/dL (75-99)
--- NOTE | 2019-05-26 15:55 | P.PN ---
Subjective this Is a 73-year-old female with a known history of hypertension, hyperlipidemia and CLL and history of breast cancer in 2014 status post chemoradiation and surgery who is currently being treated for CLL with imatinab and is on follow-up with Dr. Oliva as an outpatient was sent to Hospital due to thrombocytopenia. Next a 2 been discharged from the hospital she got platelet and blood transfusion at hematology office, however patient was developing diarrhea about 3 times per day with no significant abdominal pain for about one week, associated with generalized weakness and malaise and dry cough for 3 days with no significant dyspnea or chest pain. Patient went for her hematology office follow-up today and her blood work showed slow platelet count and patient was sent to the hospital. Also on the hospital patient was put back on oxygen, she was discharged on room air last time. Patient was recently discharged from hospital 4 days ago for acute lung injury and possible pneumonia, related to multiple blood/platelet transfusion and was treated in the ICU, after stabilization she was discharged. Also at that time patient has pancytopenia, and the discharge age her white cell count was 11.7 K, hemoglobin 8.1 and platelet 18 K. This time hematology oncology team send the patient to emergency room for pancytopenia with WBC 3.0K, hemoglobin 6.6 and platelet 2K. INR is 1.0, potassium of 3.1, creatinine 0.9, and lactic acid is elevated at 2.3. On admission patient has been afebrile, Restoril Vitas looks stable, she was saturating 87-88% on room air, saturation went up to 96 and 3 L. Chest x-ray: Showing cardiomegaly with bilateral multifocal infiltrates. Patient is getting IV fluids at 100 L/h, also she supposed to get platelets and blood transfusion today, discussed with staff. Also patient was started on vancomycin and cefepime. 05/20/2019 Patient yesterday was hypotensive and tachypneic and she was saturating 93-97% on 3 L oxygen, staff concerned that her more fluid can compromise her resp function so patient was transferred to the intensive care unit, as per staff pt can not go to select unit. today is more awake and, however she is tachypneic with respiratory rate 22-25, blood pressure is improved to 114/70, she saturating 93-94% and is related to her, she had fever of 103.3 yesterday. Labs from today showing slight improvement in his WBC at 1.6K, hemoglobin improved to 6.7, platelets 3K. Sodium 136, creatinine normal at 0.7, sugar control. Patient remains in the ICU with on antibiotics in the form of vancomycin and cefepime is provided to the patient. Chest x-ray showing diffuse bilateral infiltrate with left pleural effusion, pneumonia versus pulmonary edema. 05/21/2019 pt is in the ICU, she is doing better , however she is still tachypenic, no chest pain or coughing , her blood culture is growing pseudomonas which is mostly related to her current sepsis , ID team already stopped vancomycin and increased the dose of cefepime, her cxr shows stable findings , source could be from port althought she has evidence of diverticulitis as well but her pain is not major in her belly , pt is still generally weak , pt is constipated rather than diarrhea, her pancytopenia is worse , no fever today , pt vitals remain stable. iv fluids were stopped . pt is felt stable to go to medical floor from yesterday however critical care team recommended to keep monitoring pt in icu for now 05/22/2019 pt is transferred to the general medical floor today , he breathing looks better , coughing and weakness are improving as well, no more abd pain and her LLQ tenderness improved as well. she is hemodynamically stable , labs shwoing improving leukocytes up to 1.2 , hb stable at 7.5 , platelet improved to 12k, pt has low grade fever yesterday night at 99.9, bp stable, pt developed rash on the trunk and mainly back and thought it is due to cefepime which is switched to aztreonam as per ID team. Patient has been taking care of by Dr. Cheung over the weekend and on a Sunday. 05/26/2019 Patient is seen in the general medical floor, she looks better, breathing more quiet with less respiratory distress. No chest pain. Occasional coughing. She remains on is aztreonam and Valacyclovir. Infectious disease R following the case closely. Her WBC is stable at 1.7, hemoglobin 7.5 and platelet 19. Discussed the case with oncology team. Patient could not work with PT/OT today and the proper way, whoever evaluated tomorrow We'll double check with infectious disease and oncology team about the discharge planning Discharge planning in 24-48 hours Objective - Vital Signs Vital signs: Vital Signs Temp 98.0 F 05/26/19 11:53 Pulse 74 05/26/19 11:53 Resp 16 05/26/19 11:53 BP 163/79 05/26/19 11:53 Pulse Ox 93 L 05/26/19 11:53 Intake & Output 05/25/19 05/26/19 05/26/19 18:59 06:59 18:59 Intake Total 4030 200 360 Output Total 3800 2975 Balance 230 -2775 360 Weight 98 kg Intake: Intake, IV Titration 260 200 Amount Aztreonam 2 gm In Sodium 100 200 Chloride 0.9% 100 ml @ 100 mls/hr IVPB Q8H [facility] Rx#:[id number] Sodium Chloride 0.9% 500 160 ml 500 ml @ 20 mls/hr IV .Q24H [facility] Rx#:[id number] Oral 2520 360 Blood Product 1250 Platelet Irr Pheresis 300 Acda1 Unit [id number] Rc Irr As1 Unit 310 [id number] Output: Urine 3800 2975 Other: Voiding Method Indwelling Catheter Indwelling Catheter # Voids 1 - Exam -GENERAL: The patient is alert and oriented x3, not in any acute distress. Pale and weak HEENT: Pupils are round and equally reacting to light. EOMI. No scleral icterus. No conjunctival pallor. Normocephalic, atraumatic. No pharyngeal erythema. No thyromegaly. CARDIOVASCULAR: S1 and S2 present. No murmurs, rubs, or gallops. PULMONARY: Chest is clear to auscultation, no wheezing or crackles. ABDOMEN: Soft, nontender, nondistended, normoactive bowel sounds. No palpable organomegaly. MUSCULOSKELETAL: No joint swelling or deformity. EXTREMITIES: No cyanosis, clubbing, or pedal edema. NEUROLOGICAL: Gross neurological examination did not reveal any focal deficits. SKIN: No rashes. - Labs CBC & Chem 7: 05/26/19 08:10 05/26/19 08:10 Labs: Abnormal Lab Results - Last 24 Hours (Table) 05/23/19 05/25/19 05/25/19 Range/Units 10:04 17:10 19:18 WBC 1.7 L (3.8-10.6) k/uL RBC 2.56 L (3.80-5.40) m/uL Hgb 7.9 L (11.4-16.0) gm/dL Hct 23.3 L (34.0-46.0) % Plt Count 23 L D (150-450) k/uL Neutrophils # (1.3-7.7) k/uL Neutrophils # (Manual) 0.05 L* (1.3-7.7) k/uL Sodium (137-145) mmol/L Potassium (3.5-5.1) mmol/L Creatinine (0.52-1.04) mg/dL Glucose (74-99) mg/dL POC Glucose (mg/dL) 112 H (75-99) mg/dL Calcium (8.4-10.2) mg/dL Total Bilirubin (0.2-1.3) mg/dL AST (14-36) U/L ALT (9-52) U/L Total Protein (6.3-8.2) g/dL Albumin (3.5-5.0) g/dL Crossmatch See Detail 05/25/19 05/26/19 05/26/19 Range/Units 20:14 07:27 08:10 WBC 1.7 L (3.8-10.6) k/uL RBC 2.44 L (3.80-5.40) m/uL Hgb 7.5 L (11.4-16.0) gm/dL Hct 22.0 L (34.0-46.0) % Plt Count 19 L* (150-450) k/uL Neutrophils # 0.1 L* (1.3-7.7) k/uL Neutrophils # (Manual) (1.3-7.7) k/uL Sodium (137-145) mmol/L Potassium (3.5-5.1) mmol/L Creatinine (0.52-1.04) mg/dL Glucose (74-99) mg/dL POC Glucose (mg/dL) 146 H 101 H (75-99) mg/dL Calcium (8.4-10.2) mg/dL Total Bilirubin (0.2-1.3) mg/dL AST (14-36) U/L ALT (9-52) U/L Total Protein (6.3-8.2) g/dL Albumin (3.5-5.0) g/dL Crossmatch 05/26/19 05/26/19 Range/Units 08:10 11:27 WBC (3.8-10.6) k/uL RBC (3.80-5.40) m/uL Hgb (11.4-16.0) gm/dL Hct (34.0-46.0) % Plt Count (150-450) k/uL Neutrophils # (1.3-7.7) k/uL Neutrophils # (Manual) (1.3-7.7) k/uL Sodium 135 L (137-145) mmol/L Potassium 3.4 L (3.5-5.1) mmol/L Creatinine 0.41 L (0.52-1.04) mg/dL Glucose 113 H (74-99) mg/dL POC Glucose (mg/dL) 115 H (75-99) mg/dL Calcium 6.9 L (8.4-10.2) mg/dL Total Bilirubin 1.4 H (0.2-1.3) mg/dL AST 13 L (14-36) U/L ALT 56 H (9-52) U/L Total Protein 4.6 L (6.3-8.2) g/dL Albumin 2.4 L (3.5-5.0) g/dL Crossmatch Microbiology - Last 24 Hours (Table) 05/21/19 12:14 Blood Culture - Preliminary Blood No Growth after 120 hours 05/21/19 12:04 Blood Culture - Preliminary Blood No Growth after 120 hours Assessment and Plan Assessment: Pancytopenia SIR syndrome with fever and leukopenia and tachypnea , improving sepsis secondary to speudomonas , mostly secondary to pneumonia. Improving sigmoid diverticulitis , resolved chronic stable pulmonary infiltrates Elevated lactic acid. Resolved Dehydration and generalized weakness Acute hypoxemic respiratory failure CLL With leukocytosis. on Therapy Recent history of acute lung injury, related to multiple blood/platelet transfusion, with possible pneumonia History of breast cancer in 2014 status post chemo/radiation and surgery. Currently on anastrozole Hypertension Hyperlipidemia Osteoarthritis Previous history of smoking DVT prophylaxis with SCDs Plan: This is a pleasant 73 years old female who presents with pancytopenia and review of her CLL or therapy, also she has multiple lung infiltrates. Continue with IV antibiotics till patient will be created by infectious disease team for discharge. I discussed the case with oncology team, possible discharge in the coming few days however patient would benefit from subacute rehab, we'll ask for PT OT evaluation follow-up.abs and medication were reviewed.. Continue same tr eatment. Continue with symptomatic treatment. Resume home medication. Monitor lytes and vitals. DVT and GI prophylaxis. Further recommendations of the clinical course of the patient DVT prophylaxis: No anticoagulation in the view of low platelets GI Prophylaxis: Pepcid PT/OT: Pending Prognosis is guarded
--- NOTE | 2019-05-26 16:24 | P.PN ---
Subjective Progress Note Date: 05/26/19 Principal diagnosis: Pseudomonas bacteremia. Pancytopenia secondary to CLL, currently receiving monoclonal antibody therapy weekly. In follow-up today patient's biggest complaint is constipation and weakness. Patient did refuse physical therapy this a.m. because she was "too tired". No fevers, vomiting, bleeding. Objective - Vital Signs Vital signs: Vital Signs Temp 98.0 F 05/26/19 11:53 Pulse 74 05/26/19 11:53 Resp 16 05/26/19 11:53 BP 163/79 05/26/19 11:53 Pulse Ox 93 L 05/26/19 11:53 Intake & Output 05/25/19 05/26/19 05/26/19 18:59 06:59 18:59 Intake Total 4030 200 360 Output Total 3800 2975 Balance 230 -2775 360 Weight 98 kg Intake: Intake, IV Titration 260 200 Amount Aztreonam 2 gm In Sodium 100 200 Chloride 0.9% 100 ml @ 100 mls/hr IVPB Q8H [facility] Rx#:[id number] Sodium Chloride 0.9% 500 160 ml 500 ml @ 20 mls/hr IV .Q24H [facility] Rx#:[id number] Oral 2520 360 Blood Product 1250 Platelet Irr Pheresis 300 Acda1 Unit [id number] Rc Irr As1 Unit 310 [id number] Output: Urine 3800 2975 Other: Voiding Method Indwelling Catheter Indwelling Catheter # Voids 1 - Constitutional General appearance: Present: cooperative, no acute distress, obese - EENT EENT Comment(s): Scant thrush on the tongue, patient is currently on medication for the same Eyes: Present: anicteric sclerae, EOMI ENT: Present: hearing grossly normal - Respiratory Respiratory: bilateral: CTA, rales (Few scattered) - Cardiovascular Rhythm: regular Heart sounds: normal: S1, S2 Abnormal Heart Sounds: Present: systolic murmur - Peripheral edema foot Peripheral Edema: bilateral: Trace - Gastrointestinal General gastrointestinal: Present: normal bowel sounds, soft - Musculoskeletal Musculoskeletal: Present: generalized weakness - Psychiatric Psychiatric: Present: A&O x's 3, appropriate affect, intact judgment & insight - Labs CBC & Chem 7: 05/26/19 08:10 05/26/19 08:10 Labs: Abnormal Lab Results - Last 24 Hours (Table) 05/23/19 05/25/19 05/25/19 Range/Units 10:04 17:10 19:18 WBC 1.7 L (3.8-10.6) k/uL RBC 2.56 L (3.80-5.40) m/uL Hgb 7.9 L (11.4-16.0) gm/dL Hct 23.3 L (34.0-46.0) % Plt Count 23 L D (150-450) k/uL Neutrophils # (1.3-7.7) k/uL Neutrophils # (Manual) 0.05 L* (1.3-7.7) k/uL Sodium (137-145) mmol/L Potassium (3.5-5.1) mmol/L Creatinine (0.52-1.04) mg/dL Glucose (74-99) mg/dL POC Glucose (mg/dL) 112 H (75-99) mg/dL Calcium (8.4-10.2) mg/dL Total Bilirubin (0.2-1.3) mg/dL AST (14-36) U/L ALT (9-52) U/L Total Protein (6.3-8.2) g/dL Albumin (3.5-5.0) g/dL Crossmatch See Detail 05/25/19 05/26/19 05/26/19 Range/Units 20:14 07:27 08:10 WBC 1.7 L (3.8-10.6) k/uL RBC 2.44 L (3.80-5.40) m/uL Hgb 7.5 L (11.4-16.0) gm/dL Hct 22.0 L (34.0-46.0) % Plt Count 19 L* (150-450) k/uL Neutrophils # 0.1 L* (1.3-7.7) k/uL Neutrophils # (Manual) (1.3-7.7) k/uL Sodium (137-145) mmol/L Potassium (3.5-5.1) mmol/L Creatinine (0.52-1.04) mg/dL Glucose (74-99) mg/dL POC Glucose (mg/dL) 146 H 101 H (75-99) mg/dL Calcium (8.4-10.2) mg/dL Total Bilirubin (0.2-1.3) mg/dL AST (14-36) U/L ALT (9-52) U/L Total Protein (6.3-8.2) g/dL Albumin (3.5-5.0) g/dL Crossmatch 05/26/19 05/26/19 Range/Units 08:10 11:27 WBC (3.8-10.6) k/uL RBC (3.80-5.40) m/uL Hgb (11.4-16.0) gm/dL Hct (34.0-46.0) % Plt Count (150-450) k/uL Neutrophils # (1.3-7.7) k/uL Neutrophils # (Manual) (1.3-7.7) k/uL Sodium 135 L (137-145) mmol/L Potassium 3.4 L (3.5-5.1) mmol/L Creatinine 0.41 L (0.52-1.04) mg/dL Glucose 113 H (74-99) mg/dL POC Glucose (mg/dL) 115 H (75-99) mg/dL Calcium 6.9 L (8.4-10.2) mg/dL Total Bilirubin 1.4 H (0.2-1.3) mg/dL AST 13 L (14-36) U/L ALT 56 H (9-52) U/L Total Protein 4.6 L (6.3-8.2) g/dL Albumin 2.4 L (3.5-5.0) g/dL Crossmatch Microbiology - Last 24 Hours (Table) 05/21/19 12:14 Blood Culture - Preliminary Blood No Growth after 120 hours 05/21/19 12:04 Blood Culture - Preliminary Blood No Growth after 120 hours Assessment and Plan (1) Bacteremia due to Pseudomonas Narrative/Plan: Pending Infectious Disease recommendations for ongoing treatment. Current Visit: Yes Status: Acute Priority: High Code(s): R78.81 - BACTEREMIA SNOMED Code(s): 586603000659 (2) CLL (chronic lymphocytic leukemia) Narrative/Plan: Patient is due for 4/4 of weekly Rituxan this . Patient will either receive inpatient or outpatient. The patient's lymphocyte count has come down significantly with treatment. Unfortunately, neutrophil count is still strugg ling to recuperate. Patient to remain on G-CSF for now. Platelet count is finally able to maintain above 10,000 range. Current Visit: Yes Status: Chronic Priority: High Code(s): C91.90 - LYMPH OID LEUKEMIA, UNSPECIFIED NOT HAVING ACHIEVED REMISSION SNOMED Code(s): 9 0022811 (3) Pancytopenia Narrative/Plan: Secondary to disease and treatment. Today patient is not requiring any transfusions. She is going to continue on G-CSF. Current Visit: Yes Status: Acute Priority: High Code(s): D61.818 - OTHER PANCYTOPENIA SNOMED Code(s): 940264904 (4) Constipation Narrative/Plan: Medications adjusted, 1 dosing for milk of magnesia and prune juice. Patient has requested a warm sitz bath. Patient understands that she cannot have an enema or suppository at this time due to her low white count and low platelet count Current Visit: Yes Status: Acute Priority: High Code(s): K59.00 - CONSTIPATION, UNSPECIFIED SNOMED Code(s): 08274410 Plan: Potassium was reported to me as a 3.4, one-time supplement ordered, BMP in the a.m.
[2019-05-26 17:39] LABS: Glucose,Whole Blood 126 mg/dL (75-99)
[2019-05-26] MEDS: guaiFENesin SYRUP 100MG/5ML 200 MG/10 ML CUP PO PRN (19:31)
--- NOTE | 2019-05-26 19:48 | PN ---
PROGRESS NOTE DATE OF SERVICE: 05/26/2019. REASON FOR FOLLOWUP: Pseudomonas aeruginosa bacteremia, possible pneumonia. INTERVAL HISTORY: The patient is currently afebrile. The patient has been breathing comfortably. Denies having any chest pain. Occasional cough. Oral sores have improved. Denies any difficulty swallowing. No abdominal pain. Did complain of constipation for which the patient did receive laxative today. PHYSICAL EXAMINATION: Blood pressure 133/79 with a pulse of 74. Temperature of 98. She is 93% on room air. General description is an elderly female, lying in bed in no distress. HEENT examination: Slight pallor. Oral mucous membranes moist. LUNGS unlabored breathing. Decreased breath sounds in the bases. HEART S1, S2. Regular rate and rhythm. ABDOMEN: Soft, no tenderness. LABS: Hemoglobin 10.5, white count 11.7, BUN of 16, creatinine 0.41. Blood culture repeat has been negative. DIAGNOSTIC IMPRESSION AND PLAN: Patient with Pseudomonas aeruginosa bacteremia for which the patient received about a week of IV antibiotic therapy. She will need another week of IV antibiotics to finish a 2 week course of therapy and monitor clinical course closely. Continue supportive care. MMODL / IJN: [id number] /
[2019-05-26 20:25] LABS: Glucose,Whole Blood 154 mg/dL (75-99)
[2019-05-26] MEDS: ATORVASTATIN 40 MG TAB PO SCH (21:16)
[2019-05-27] MEDS: AZTREONAM 2 GM in SODIUM CHLORIDE 0.9% 100 ML IVPB SCH ×3 (04:15→20:29)
[2019-05-27] MEDS: SODIUM CHLORIDE 0.9% 500 ML 500 ML IV SCH (05:32)
[2019-05-27 07:28] LABS: Glucose,Whole Blood 106 mg/dL (75-99)
[2019-05-27 08:55] LABS: HCT 20.5 % (34.0-46.0); MCH 30.3 pg (25.0-35.0); MCHC 33.7 g/dL (31.0-37.0); MCV 89.9 fL (80.0-100.0); RBC 2.28 m/uL (3.80-5.40); RDW 14.4 % (11.5-15.5)
[2019-05-27 08:59] LABS: HGB 6.9 gm/dL (11.4-16.0); Platelet Count 8 k/uL (150-450); WBC 1.3 k/uL (3.8-10.6)
[2019-05-27 09:14] LABS: African American GFR (CKD) >90 (>60 ml/min/1.73 sqM); Anion Gap 5 mmol/L; Blood Urea Nitrogen 15 mg/dL (7-17); Calcium 6.9 mg/dL (8.4-10.2); Carbon Dioxide 27 mmol/L (22-30); Chloride 102 mmol/L (98-107); Glucose 96 mg/dL (74-99); Potassium 3.9 mmol/L (3.5-5.1); Sodium 134 mmol/L (137-145)
[2019-05-27] MEDS: INSULIN ASPART (NovoLOG) 100 UNIT/ML VIAL SQ SCH ×4 (09:19→22:12)
[2019-05-27] MEDS: ALLOPURINOL 300 MG TAB PO SCH (09:21)
[2019-05-27] MEDS: valACYclovir HCL 1,000 MG TABLET PO SCH ×2 (09:21→20:31)
[2019-05-27] MEDS: FILGRASTIM-SNDZ 480 MCG/0.8 ML SYRINGE SQ SCH (09:22)
[2019-05-27] MEDS: POLYETHYLENE GLYCOL 3350 17 GM POWD.PACK PO SCH (09:22)
[2019-05-27] MEDS: guaiFENesin SYRUP 100MG/5ML 200 MG/10 ML CUP PO PRN ×3 (09:22→20:29)
[2019-05-27] MEDS: PANTOPRAZOLE 40 MG TABLET PO SCH ×2 (09:22→16:30)
[2019-05-27] MEDS: SENNOSIDES-DOCUSATE SODIUM 1 EACH TAB PO SCH ×2 (09:23→20:30)
[2019-05-27] MEDS: MAG HYDROX/AL HYDROX/SIMETH 30 ML, LIDOCAINE VISCOUS 30 ML, diphenhydrAMINE ELIXIR 75 M... PO PRN ×8 (09:24→16:31)
[2019-05-27] MEDS: traMADol 50 MG TAB PO PRN ×3 (09:29→20:29)
[2019-05-27 10:45] LABS: Monocytes # (M) 0.03 k/uL (0-1.0); Neutrophils % (M) 6 %; Nucleated Red Blood Cells 0 /100 WBC (0-0); Total Cells Counted 50
[2019-05-27 10:49] LABS: Anisocytosis (M) Present
[2019-05-27 11:24] LABS: Glucose,Whole Blood 140 mg/dL (75-99)
--- NOTE | 2019-05-27 13:02 | P.PN ---
Subjective Progress Note Date: 05/27/19 Principal diagnosis: Pseudomonas bacteremia. Pancytopenia secondary to CLL, currently receiving monoclonal antibody therapy weekly. In follow-up today and is very apparent that patient is frustrated, she is not wanting to participate in rehabilitation but, complaining about weakness. She is refusing most of the recommendations by staff. She has complaints of poor oral intake secondary to lack of taste/horrible taste, no sore throat or nausea, cough is persistent and irritating, no hemoptysis or purulent sputum production, chest pain, palpitations, abdominal pain or cramping, bleeding or pain. She lost control of bowels when coughing last night, swelling in the legs is mild to moderate, she requires assistance with ADLs Objective - Vital Signs Vital signs: Vital Signs Temp 98.8 F 05/27/19 11:50 Pulse 77 05/27/19 11:50 Resp 17 05/27/19 11:50 BP 150/70 05/27/19 11:50 Pulse Ox 93 L 05/27/19 11:50 Intake & Output 05/26/19 05/27/19 05/27/19 18:59 06:59 18:59 Intake Total 360 200 Output Total 900 Balance -540 200 Weight 98 kg Intake: Intake, IV Titration 200 Amount Aztreonam 2 gm In Sodium 200 Chloride 0.9% 100 ml @ 100 mls/hr IVPB Q8H [facility] Rx#:[id number] Oral 360 Output: Urine 900 Other: Voiding Method Indwelling Catheter Indwelling Catheter Indwelling Catheter # Voids 1 - Constitutional General appearance: Present: cooperative, mild distress, obese - EENT Eyes: Present: anicteric sclerae, EOMI ENT: Present: hearing grossly normal, pharyngeal erythema - Respiratory Respiratory: right: rales (RML), bilateral: diminished (weak inspiratory effort) - Cardiovascular Rhythm: regular Heart sounds: normal: S1, S2 Abnormal Heart Sounds: Present: systolic murmur - Peripheral edema leg Peripheral Edema: bilateral: 2+ - Gastrointestinal General gastrointestinal: Present: normal bowel sounds, soft - Integumentary Integumentary: Present: pale - Neurologic Neurologic: Present: CNII-XII intact - Musculoskeletal Musculoskeletal: Present: generalized weakness - Psychiatric Psychiatric: Present: A&O x's 3, appropriate affect, intact judgment & insight - Labs CBC & Chem 7: 05/27/19 07:28 05/27/19 07:28 Labs: Abnormal Lab Results - Last 24 Hours (Table) 05/23/19 05/26/19 05/26/19 Range/Units 10:04 17:37 20:23 WBC (3.8-10.6) k/uL RBC (3.80-5.40) m/uL Hgb (11.4-16.0) gm/dL Hct (34.0-46.0) % Plt Count (150-450) k/uL Neutrophils # (Manual) (1.3-7.7) k/uL Sodium (137-145) mmol/L Creatinine (0.52-1.04) mg/dL POC Glucose (mg/dL) 126 H 154 H (75-99) mg/dL Calcium (8.4-10.2) mg/dL Crossmatch See Detail 05/27/19 05/27/19 05/27/19 Range/Units 07:27 07:28 07:28 WBC 1.3 L* (3.8-10.6) k/uL RBC 2.28 L (3.80-5.40) m/uL Hgb 6.9 L* (11.4-16.0) gm/dL Hct 20.5 L (34.0-46.0) % Plt Count 8 L* D (150-450) k/uL Neutrophils # (Manual) 0.08 L* (1.3-7.7) k/uL Sodium 134 L (137-145) mmol/L Creatinine 0.40 L (0.52-1.04) mg/dL POC Glucose (mg/dL) 106 H (75-99) mg/dL Calcium 6.9 L (8.4-10.2) mg/dL Crossmatch 05/27/19 05/27/19 Range/Units 11:21 11:22 WBC (3.8-10.6) k/uL RBC (3.80-5.40) m/uL Hgb (11.4-16.0) gm/dL Hct (34.0-46.0) % Plt Count (150-450) k/uL Neutrophils # (Manual) (1.3-7.7) k/uL Sodium (137-145) mmol/L Creatinine (0.52-1.04) mg/dL POC Glucose (mg/dL) 140 H (75-99) mg/dL Calcium (8.4-10.2) mg/dL Crossmatch See Detail Microbiology - Last 24 Hours (Table) 05/21/19 12:14 Blood Culture - Preliminary Blood No Growth after 120 hours 05/21/19 12:04 Blood Culture - Preliminary Blood No Growth after 120 hours Assessment and Plan (1) Bacteremia due to Pseudomonas Narrative/Plan: Infectious Disease recommendations for 1 more week of IV antibiotics Current Visit: Yes Status: Acute Priority: High Code(s): R78.81 - BACTEREMIA SNOMED Code(s): 684543811157 (2) CLL (chronic lymphocytic leukemia) Narrative/Plan: Patient is status post 3 of 4 cycles of weekly Rituxan. Her lymphocyte count has come down very well with treatment but, unfortunately we are not getting the rebound response in her other blood counts that would be anticipated with improvement in lymphocytosis. Patient is still requiring intermittent blood and platelet transfusions. Pending collaboration, follow-up in the a.m. Current Visit: Yes Status: Chronic Priority: High Code(s): C91.90 - L YMPHOID LEUKEMIA, UNSPECIFIED NOT HAVING ACHIEVED REMISSION SNOMED Code(s): 67187414 (3) Pancytopenia Narrative/Plan: Secondary to disease and treatment. 1 unit of packed red blood cells for hemoglobin of 6.9. 1 unit of single donor platelets for a hemoglobin of 8000. No aspirin, NSAIDs, anticoagulation. Continue G-CSF for an absolute neutrophil count less than 1000. Current Visit: Yes Status: Acute Priority: High Code(s): D61.818 - OTHER PANCYTOPENIA SNOMED Code(s): 235002044 (4) Constipation Narrative/Plan: Patient did have stress incontinence of stool. No watery diarrhea reported. Close monitoring of I's and O's. Current Visit: Yes Status: Resolved Priority: High Code(s): K59.00 - CONSTIPATION, UNSPECIFIED SNOMED Code(s): 15975168 Plan: Potassium within normal limits today
--- NOTE | 2019-05-27 14:48 | P.PN ---
Subjective this Is a 73-year-old female with a known history of hypertension, hyperlipidemia and CLL and history of breast cancer in 2014 status post chemoradiation and surgery who is currently being treated for CLL with imatinab and is on follow-up with Dr. Oliva as an outpatient was sent to Hospital due to thrombocytopenia. Next a 2 been discharged from the hospital she got platelet and blood transfusion at hematology office, however patient was developing diarrhea about 3 times per day with no significant abdominal pain for about one week, associated with generalized weakness and malaise and dry cough for 3 days with no significant dyspnea or chest pain. Patient went for her hematology office follow-up today and her blood work showed slow platelet count and patient was sent to the hospital. Also on the hospital patient was put back on oxygen, she was discharged on room air last time. Patient was recently discharged from hospital 4 days ago for acute lung injury and possible pneumonia, related to multiple blood/platelet transfusion and was treated in the ICU, after stabilization she was discharged. Also at that time patient has pancytopenia, and the discharge age her white cell count was 11.7 K, hemoglobin 8.1 and platelet 18 K. This time hematology oncology team send the patient to emergency room for pancytopenia with WBC 3.0K, hemoglobin 6.6 and platelet 2K. INR is 1.0, potassium of 3.1, creatinine 0.9, and lactic acid is elevated at 2.3. On admission patient has been afebrile, Restoril Vitas looks stable, she was saturating 87-88% on room air, saturation went up to 96 and 3 L. Chest x-ray: Showing cardiomegaly with bilateral multifocal infiltrates. Patient is getting IV fluids at 100 L/h, also she supposed to get platelets and blood transfusion today, discussed with staff. Also patient was started on vancomycin and cefepime. 05/20/2019 Patient yesterday was hypotensive and tachypneic and she was saturating 93-97% on 3 L oxygen, staff concerned that her more fluid can compromise her resp function so patient was transferred to the intensive care unit, as per staff pt can not go to select unit. today is more awake and, however she is tachypneic with respiratory rate 22-25, blood pressure is improved to 114/70, she saturating 93-94% and is related to her, she had fever of 103.3 yesterday. Labs from today showing slight improvement in his WBC at 1.6K, hemoglobin improved to 6.7, platelets 3K. Sodium 136, creatinine normal at 0.7, sugar control. Patient remains in the ICU with on antibiotics in the form of vancomycin and cefepime is provided to the patient. Chest x-ray showing diffuse bilateral infiltrate with left pleural effusion, pneumonia versus pulmonary edema. 05/21/2019 pt is in the ICU, she is doing better , however she is still tachypenic, no chest pain or coughing , her blood culture is growing pseudomonas which is mostly related to her current sepsis , ID team already stopped vancomycin and increased the dose of cefepime, her cxr shows stable findings , source could be from port althought she has evidence of diverticulitis as well but her pain is not major in her belly , pt is still generally weak , pt is constipated rather than diarrhea, her pancytopenia is worse , no fever today , pt vitals remain stable. iv fluids were stopped . pt is felt stable to go to medical floor from yesterday however critical care team recommended to keep monitoring pt in icu for now 05/22/2019 pt is transferred to the general medical floor today , he breathing looks better , coughing and weakness are improving as well, no more abd pain and her LLQ tenderness improved as well. she is hemodynamically stable , labs shwoing improving leukocytes up to 1.2 , hb stable at 7.5 , platelet improved to 12k, pt has low grade fever yesterday night at 99.9, bp stable, pt developed rash on the trunk and mainly back and thought it is due to cefepime which is switched to aztreonam as per ID team. Patient has been taking care of by Dr. Cheung over the weekend and on a Sunday. 05/26/2019 Patient is seen in the general medical floor, she looks better, breathing more quiet with less respiratory distress. No chest pain. Occasional coughing. She remains on is aztreonam and Valacyclovir. Infectious disease R following the case closely. Her WBC is stable at 1.7, hemoglobin 7.5 and platelet 19. Discussed the case with oncology team. Patient could not work with PT/OT today and the proper way, whoever evaluated tomorrow We'll double check with infectious disease and oncology team about the discharge planning Discharge planning in 24-48 hours 05/27/2019 Patient clinically doing well, with her breathing is a stable. No chest pain. No dyspnea. Occasional coughing. Pancytopenia is worsened today with WBC down to 1.3, hemoglobin 6.9, platelets 8K, patient is getting been transfused blood and platelets. ID team recommended to continue with antibiotics aztreonam for 1 more week for her Pseudomonas infection. Objective - Vital Signs Vital signs: Vital Signs Temp 98.8 F 05/27/19 11:50 Pulse 77 05/27/19 11:50 Resp 17 05/27/19 11:50 BP 150/70 05/27/19 11:50 Pulse Ox 93 L 05/27/19 11:50 Intake & Output 05/26/19 05/27/19 05/27/19 18:59 06:59 18:59 Intake Total 360 200 Output Total 900 Balance -540 200 Weight 98 kg Intake: Intake, IV Titration 200 Amount Aztreonam 2 gm In Sodium 200 Chloride 0.9% 100 ml @ 100 mls/hr IVPB Q8H [facility] Rx#:[id number] Oral 360 Output: Urine 900 Other: Voiding Method Indwelling Catheter Indwelling Catheter Indwelling Catheter # Voids 1 - Exam -GENERAL: The patient is alert and oriented x3, not in any acute distress. Pale and weak HEENT: Pupils are round and equally reacting to light. EOMI. No scleral icterus. No conjunctival pallor. Normocephalic, atraumatic. No pharyngeal erythema. No thyromegaly. CARDIOVASCULAR: S1 and S2 present. No murmurs, rubs, or gallops. PULMONARY: Chest is clear to auscultation, no wheezing or crackles. ABDOMEN: Soft, nontender, nondistended, normoactive bowel sounds. No palpable organomegaly. MUSCULOSKELETAL: No joint swelling or deformity. EXTREMITIES: No cyanosis, clubbing, or pedal edema. NEUROLOGICAL: Gross neurological examination did not reveal any focal deficits. SKIN: No rashes. - Labs CBC & Chem 7: 05/27/19 07:28 05/27/19 07:28 Labs: Abnormal Lab Results - Last 24 Hours (Table) 05/23/19 05/26/19 05/26/19 Range/Units 10:04 17:37 20:23 WBC (3.8-10.6) k/uL RBC (3.80-5.40) m/uL Hgb (11.4-16.0) gm/dL Hct (34.0-46.0) % Plt Count (150-450) k/uL Neutrophils # (Manual) (1.3-7.7) k/uL Sodium (137-145) mmol/L Creatinine (0.52-1.04) mg/dL POC Glucose (mg/dL) 126 H 154 H (75-99) mg/dL Calcium (8.4-10.2) mg/dL Crossmatch See Detail 05/27/19 05/27/19 05/27/19 Range/Units 07:27 07:28 07:28 WBC 1.3 L* (3.8-10.6) k/uL RBC 2.28 L (3.80-5.40) m/uL Hgb 6.9 L* (11.4-16.0) gm/dL Hct 20.5 L (34.0-46.0) % Plt Count 8 L* D (150-450) k/uL Neutrophils # (Manual) 0.08 L* (1.3-7.7) k/uL Sodium 134 L (137-145) mmol/L Creatinine 0.40 L (0.52-1.04) mg/dL POC Glucose (mg/dL) 106 H (75-99) mg/dL Calcium 6.9 L (8.4-10.2) mg/dL Crossmatch 05/27/19 05/27/19 Range/Units 11:21 11:22 WBC (3.8-10.6) k/uL RBC (3.80-5.40) m/uL Hgb (11.4-16.0) gm/dL Hct (34.0-46.0) % Plt Count (150-450) k/uL Neutrophils # (Manual) (1.3-7.7) k/uL Sodium (137-145) mmol/L Creatinine (0.52-1.04) mg/dL POC Glucose (mg/dL) 140 H (75-99) mg/dL Calcium (8.4-10.2) mg/dL Crossmatch See Detail Microbiology - Last 24 Hours (Table) 05/21/19 12:14 Blood Culture - Preliminary Blood No Growth after 120 hours 05/21/19 12:04 Blood Culture - Preliminary Blood No Growth after 120 hours Assessment and Plan Assessment: Pancytopenia SIR syndrome with fever and leukopenia and tachypnea , improving sepsis secondary to speudomonas , mostly secondary to pneumonia. Improving sigmoid diverticulitis , resolved chronic stable pulmonary infiltrates Elevated lactic acid. Resolved Dehydration and generalized weakness Acute hypoxemic respiratory failure CLL With leukocytosis. on Therapy Recent history of acute lung injury, related to multiple blood/platelet transfusion, with possible pneumonia History of breast cancer in 2014 status post chemo/radiation and surgery. Currently on anastrozole Hypertension Hyperlipidemia Osteoarthritis Previous history of smoking DVT prophylaxis with SCDs Plan: This is a pleasant 73 years old female who presents with pancytopenia and review of her CLL or therapy, also she has multiple lung infiltrates. Continue with IV antibiotics till patient will be created by infectious disease team for discharge. I discussed the case with oncology team, possible discharge in the coming few days however patient would benefit from subacute rehab, we'll ask for PT OT evaluation follow-up.abs and medication were reviewed.. Continue same treatment. Continue with symptomatic treatment. Resume home medication. Monitor lytes and vitals. DVT and GI prophylaxis. Further recommendations of the clinical course of the patient DVT prophylaxis: No anticoagulation in the view of low platelets GI Prophylaxis: Pepcid PT/OT: Pending Prognosis is guarded
[2019-05-27 17:08] LABS: Glucose,Whole Blood 102 mg/dL (75-99)
--- NOTE | 2019-05-27 18:17 | PN ---
PROGRESS NOTE DATE OF SERVICE: 05/27/2019. REASON FOR FOLLOWUP: Pseudomonas aeruginosa bacteremia pneumonia. INTERVAL HISTORY: The patient is currently afebrile. Patient has been breathing comfortably. Decreased intensity. No chest pain. No abdominal pain. No nausea, no vomiting. Overall, sores has improved. PHYSICAL EXAMINATION: Blood pressure is 137/81 with a pulse of 80, temperature 98.5. She is 95% on room air. General description is an elderly female, lying in bed in no distress. Respiratory system: Unlabored breathing. Decreased breath sounds in the bases. HEART: S1, S2. Regular rate and rhythm. Abdomen soft, no tenderness. LABS: Hemoglobin 6.9, white count 9.3, BUN of 15, creatinine 0.40. DIAGNOSTIC IMPRESSION AND PLAN: Patient with Pseudomonas aeruginosa bacteremia source, possible pneumonia. Follow up blood cultures 05/21 has been negative. The patient will need at least 2 weeks of IV antibiotic therapy for her bacteremia and we will monitor clinical course closely. Continue supportive care. MMODL / IJN: [id number] /
[2019-05-27] MEDS: ATORVASTATIN 40 MG TAB PO SCH (20:29)
[2019-05-27 21:05] LABS: Glucose,Whole Blood 137 mg/dL (75-99)
[2019-05-28] MEDS: AZTREONAM 2 GM in SODIUM CHLORIDE 0.9% 100 ML IVPB SCH ×3 (03:35→20:17)
[2019-05-28] MEDS: guaiFENesin SYRUP 100MG/5ML 200 MG/10 ML CUP PO PRN ×3 (03:37→16:01)
[2019-05-28] MEDS: SODIUM CHLORIDE 0.9% 500 ML 500 ML IV SCH (04:16)
[2019-05-28 07:17] LABS: Glucose,Whole Blood 109 mg/dL (75-99)
[2019-05-28] MEDS: INSULIN ASPART (NovoLOG) 100 UNIT/ML VIAL SQ SCH ×4 (09:07→21:17)
[2019-05-28] MEDS: traMADol 50 MG TAB PO PRN ×2 (09:18→16:00)
[2019-05-28] MEDS: ALLOPURINOL 300 MG TAB PO SCH (09:18)
[2019-05-28] MEDS: PANTOPRAZOLE 40 MG TABLET PO SCH ×2 (09:18→16:00)
[2019-05-28] MEDS: SENNOSIDES-DOCUSATE SODIUM 1 EACH TAB PO SCH ×2 (09:19→20:17)
[2019-05-28] MEDS: valACYclovir HCL 1,000 MG TABLET PO SCH ×2 (09:19→20:18)
[2019-05-28] MEDS: POLYETHYLENE GLYCOL 3350 17 GM POWD.PACK PO SCH (09:19)
[2019-05-28 09:50] LABS: Basophils % (A) 0 %; Eosinophils % (A) 2 %; HCT 22.8 % (34.0-46.0); HGB 7.9 gm/dL (11.4-16.0); Lymphocytes # (A) 1.3 k/uL (1.0-4.8); Lymphocytes % (A) 90 %; MCH 30.9 pg (25.0-35.0); MCHC 34.5 g/dL (31.0-37.0); MCV 89.6 fL (80.0-100.0); Mean Platelet Volume 7.3; Monocytes % (A) 1 %; Neutrophils % (A) 5 %; RBC 2.55 m/uL (3.80-5.40); RDW 14.3 % (11.5-15.5); WBC 1.5 k/uL (3.8-10.6)
[2019-05-28 09:51] LABS: Platelet Count 9 k/uL (150-450)
[2019-05-28 10:05] LABS: African American GFR (CKD) >90 (>60 ml/min/1.73 sqM); Anion Gap 7 mmol/L; Blood Urea Nitrogen 13 mg/dL (7-17); Carbon Dioxide 24 mmol/L (22-30); Chloride 103 mmol/L (98-107); Glucose 126 mg/dL (74-99); Potassium 3.5 mmol/L (3.5-5.1); Sodium 134 mmol/L (137-145)
[2019-05-28 10:13] LABS: Neutrophils # (A) 0.1 k/uL (1.3-7.7)
[2019-05-28 11:31] LABS: Glucose,Whole Blood 136 mg/dL (75-99)
[2019-05-28] MEDS: FILGRASTIM-SNDZ 480 MCG/0.8 ML SYRINGE SQ SCH (13:31)
--- NOTE | 2019-05-28 14:30 | P.PN ---
Subjective Progress Note Date: 05/28/19 Principal diagnosis: Pseudomonas bacteremia. Pancytopenia secondary to CLL, currently receiving monoclonal antibody therapy weekly. In f/u today pt states a little better appetite, she did cooperate and participate with PT. She denies fever, bleeding, cough persists and she is having stress incontinence of stool. Objective - Vital Signs Vital signs: Vital Signs Temp 98.5 F 05/28/19 11:46 Pulse 78 05/28/19 11:46 Resp 17 05/28/19 11:46 BP 165/75 05/28/19 11:46 Pulse Ox 95 05/28/19 11:46 Intake & Output 05/27/19 05/28/19 05/28/19 18:59 06:59 18:59 Intake Total 401 870 Output Total 1100 1100 725 Balance -145 -227 -655 Intake: Intake, IV Titration 100 320 Amount Aztreonam 2 gm In Sodium 100 200 Chloride 0.9% 100 ml @ 100 mls/hr IVPB Q8H [facility] Rx#:[id number] Sodium Chloride 0.9% 500 120 ml 500 ml @ 20 mls/hr IV .Q24H [facility] Rx#:[id number] Oral 240 Blood Product 301 310 Platelet Irr Pheresis 2 301 Acda Unit [id number] Rc Irr As1 Unit 310 [id number] Output: Urine 1100 1100 725 Other: Voiding Method Indwelling Catheter Indwelling Catheter Indwelling Catheter # Voids 1 - Constitutional General appearance: Present: cooperative, no acute distress, obese - EENT EENT Comment(s): lt ptosis, pt states she has had before, worse when she is tired Eyes: Present: anicteric sclerae, EOMI, PERRLA, ptosis ENT: Present: hearing grossly normal - Respiratory Respiratory: bilateral: CTA - Cardiovascular Heart sounds: normal: S1, S2 Abnormal Heart Sounds: Present: systolic murmur - Peripheral edema leg Peripheral Edema: bilateral: Trace - Gastrointestinal General gastrointestinal: Present: normal bowel sounds, soft. Absent: absent bowel sounds, decreased bowel sounds, distended, hepatomegaly, hyperactive bowel sounds, organomegaly, rigid, scaphoid, splenomegaly, tenderness, umbilical hernia, ventral hernia - Integumentary Integumentary: Present: pale - Neurologic Neurologic: Present: CNII-XII intact - Musculoskeletal Musculoskeletal: Present: generalized weakness - Psychiatric Psychiatric: Present: A&O x's 3, appropriate affect, intact judgment & insight - Labs CBC & Chem 7: 05/28/19 09:14 05/28/19 09:14 Labs: Abnormal Lab Results - Last 24 Hours (Table) 05/23/19 05/27/19 05/27/19 Range/Units 10:04 11:22 17:08 WBC (3.8-10.6) k/uL RBC (3.80-5.40) m/uL Hgb (11.4-16.0) gm/dL Hct (34.0-46.0) % Plt Count (150-450) k/uL Neutrophils # (1.3-7.7) k/uL Sodium (137-145) mmol/L Creatinine (0.52-1.04) mg/dL Glucose (74-99) mg/dL POC Glucose (mg/dL) 102 H (75-99) mg/dL Calcium (8.4-10.2) mg/dL Crossmatch See Detail See Detail 05/27/19 05/28/19 05/28/19 Range/Units 21:04 07:16 09:14 WBC 1.5 L (3.8-10.6) k/uL RBC 2.55 L (3.80-5.40) m/uL Hgb 7.9 L (11.4-16.0) gm/dL Hct 22.8 L (34.0-46.0) % Plt Count 9 L* (150-450) k/uL Neutrophils # 0.1 L* (1.3-7.7) k/uL Sodium (137-145) mmol/L Creatinine (0.52-1.04) mg/dL Glucose (74-99) mg/dL POC Glucose (mg/dL) 137 H 109 H (75-99) mg/dL Calcium (8.4-10.2) mg/dL Crossmatch 05/28/19 05/28/19 Range/Units 09:14 11:22 WBC (3.8-10.6) k/uL RBC (3.80-5.40) m/uL Hgb (11.4-16.0) gm/dL Hct (34.0-46.0) % Plt Count (150-450) k/uL Neutrophils # (1.3-7.7) k/uL Sodium 134 L (137-145) mmol/L Creatinine 0.36 L (0.52-1.04) mg/dL Glucose 126 H (74-99) mg/dL POC Glucose (mg/dL) 136 H (75-99) mg/dL Calcium 7.0 L (8.4-10.2) mg/dL Crossmatch Microbiology - Last 24 Hours (Table) 05/21/19 12:14 Blood Culture - Final Blood No Growth after 144 hours 05/21/19 12:04 Blood Culture - Final Blood No Growth after 144 hours Assessment and Plan (1) Bacteremia due to Pseudomonas Narrative/Plan: Infectious Disease recommendations for 1 more week of IV antibiotics Current Visit: Yes Status: Acute Priority: High Code(s): R78.81 - BACTEREMIA SNOMED Code(s): 440618974731 (2) CLL (chronic lymphocytic leukemia) Narrative/Plan: Patient is status post 3 of 4 cycles of weekly Rituxan. Her lymphocyte count has come down very well with treatment but, unfortunately we are not getting the rebound response in her other blood counts that would be anticipated with improvement in lymphocytosis. Patient is still requiring intermittent blood and platelet transfusions. Plan is to complete the 4 cycles and then another bone marrow in 2-3 weeks. Until such time pt will have to remain on frequent lab draws with supportive transfusions PRN. Need a regimen of medications to support pt with severe neutropenia, will discuss with ID. We will see if w can get pt safely discharged over the weekend Orders for cycle 4/4 of Rituxan being sent to Pharmacy and the floor today Current Visit: Yes Status: Chronic Priority: High Code(s): C91.90 - LYMPHOID LEUKEMIA, UNSPECIFIED NOT HAVING ACHIEVED REMISSION SNOMED Code(s): 20096398 (3) Pancytopenia Narrative/Plan: Secondary to disease and treatment. Hgb 7.9, no transfusion. 1 unit of single donor platelets for a hemoglobin of 9000. No aspirin, NSAIDs, anticoagulation. Continue G-CSF for an absolute neutrophil count less than 1000. Current Visit: Yes Status: Acute Priority: High Code(s): D61.818 - OTHER PANCYTOPENIA SNOMED Code(s): 039701294 (4) Constipation Narrative/Plan: Patient did have stress incontinence of stool. No watery diarrhea reported. Close monitoring of I's and O's. Current Visit: Yes Status: Resolved Priority: High Code(s): K59.00 - CONSTIPATION, UNSPECIFIED SNOMED Code(s): 28050912 Plan: Potassium within normal limits today, cont to monitor, protocol is in place
--- NOTE | 2019-05-28 14:54 | PN ---
PROGRESS NOTE DATE OF SERVICE: 05/28/2019 REASON FOR FOLLOWUP: Pseudomonas aeruginosa bacteremia, likely pneumonia. INTERVAL HISTORY: The patient is afebrile. She is breathing comfortably. Denies any chest pain. Occasional cough. No nausea, vomiting. Did have some occasional low stools but denies having any abdominal pain, nausea has improved. PHYSICAL EXAMINATION: Blood pressure is 165/75 with a pulse of 73, temperature 98.5. He is 95% on room air. General description is an elderly female, lying in bed in no distress. RESPIRATORY SYSTEM: Unlabored breathing with decreased breath sounds at the bases, no wheeze. HEART: S1, S2. Regular rate and rhythm. ABDOMEN: Soft, no tenderness. LABS: Hemoglobin is 7.9, white count is 1.5, BUN of 13, creatinine 0.36. Blood culture repeat 05/21 has been negative so far. DIAGNOSTIC IMPRESSION AND PLAN: Patient with Pseudomonas aeruginosa bacteremia, concern for possible pneumonia, less likely [employer] the source as the patient clears her bacteremia very quickly. Plan is for a total of 2 weeks of IV antibiotics, the patient currently seen in followup because of rash to cefepime. Questions and concerns were answered. MMODL / IJN: [id number] / MTDD
[2019-05-28 17:21] LABS: Glucose,Whole Blood 154 mg/dL (75-99)
--- NOTE | 2019-05-28 17:58 | P.PN ---
Subjective this Is a 73-year-old female with a known history of hypertension, hyperlipidemia and CLL and history of breast cancer in 2014 status post chemoradiation and surgery who is currently being treated for CLL with imatinab and is on follow-up with Dr. Oliva as an outpatient was sent to Hospital due to thrombocytopenia. Next a 2 been discharged from the hospital she got platelet and blood transfusion at hematology office, however patient was developing diarrhea about 3 times per day with no significant abdominal pain for about one week, associated with generalized weakness and malaise and dry cough for 3 days with no significant dyspnea or chest pain. Patient went for her hematology office follow-up today and her blood work showed slow platelet count and patient was sent to the hospital. Also on the hospital patient was put back on oxygen, she was discharged on room air last time. Patient was recently discharged from hospital 4 days ago for acute lung injury and possible pneumonia, related to multiple blood/platelet transfusion and was treated in the ICU, after stabilization she was discharged. Also at that time patient has pancytopenia, and the discharge age her white cell count was 11.7 K, hemoglobin 8.1 and platelet 18 K. This time hematology oncology team send the patient to emergency room for pancytopenia with WBC 3.0K, hemoglobin 6.6 and platelet 2K. INR is 1.0, potassium of 3.1, creatinine 0.9, and lactic acid is elevated at 2.3. On admission patient has been afebrile, Restoril Vitas looks stable, she was saturating 87-88% on room air, saturation went up to 96 and 3 L. Chest x-ray: Showing cardiomegaly with bilateral multifocal infiltrates. Patient is getting IV fluids at 100 L/h, also she supposed to get platelets and blood transfusion today, discussed with staff. Also patient was started on vancomycin and cefepime. 05/20/2019 Patient yesterday was hypotensive and tachypneic and she was saturating 93-97% on 3 L oxygen, staff concerned that her more fluid can compromise her resp function so patient was transferred to the intensive care unit, as per staff pt can not go to select unit. today is more awake and, however she is tachypneic with respiratory rate 22-25, blood pressure is improved to 114/70, she saturating 93-94% and is related to her, she had fever of 103.3 yesterday. Labs from today showing slight improvement in his WBC at 1.6K, hemoglobin improved to 6.7, platelets 3K. Sodium 136, creatinine normal at 0.7, sugar control. Patient remains in the ICU with on antibiotics in the form of vancomycin and cefepime is provided to the patient. Chest x-ray showing diffuse bilateral infiltrate with left pleural effusion, pneumonia versus pulmonary edema. 05/21/2019 pt is in the ICU, she is doing better , however she is still tachypenic, no chest pain or coughing , her blood culture is growing pseudomonas which is mostly related to her current sepsis , ID team already stopped vancomycin and increased the dose of cefepime, her cxr shows stable findings , source could be from [place] althought she has evidence of diverticulitis as well but her pain is not major in her belly , pt is still generally weak , pt is constipated rather than diarrhea, her pancytopenia is worse , no fever today , pt vitals remain stable. iv fluids were stopped . pt is felt stable to go to medical floor from yesterday however critical care team recommended to keep monitoring pt in icu for now 05/22/2019 pt is transferred to the general medical floor today , he breathing looks better , coughing and weakness are improving as well, no more abd pain and her LLQ tenderness improved as well. she is hemodynamically stable , labs shwoing improving leukocytes up to 1.2 , hb stable at 7.5 , platelet improved to 12k, pt has low grade fever yesterday night at 99.9, bp stable, pt developed rash on the trunk and mainly back and thought it is due to cefepime which is switched to aztreonam as per ID team. Patient has been taking care of by Dr. Cheung over the weekend and on a Sunday. 05/26/2019 Patient is seen in the general medical floor, she looks better, breathing more quiet with less respiratory distress. No chest pain. Occasional coughing. She remains on is aztreonam and Valacyclovir. Infectious disease R following the case closely. Her WBC is stable at 1.7, hemoglobin 7.5 and platelet 19. Discussed the case with oncology team. Patient could not work with PT/OT today and the proper way, whoever evaluated tomorrow We'll double check with infectious disease and oncology team about the discharge planning Discharge planning in 24-48 hours 05/27/2019 Patient clinically doing well, with her breathing is a stable. No chest pain. No dyspnea. Occasional coughing. Pancytopenia is worsened today with WBC down to 1.3, hemoglobin 6.9, platelets 8K, patient is getting been transfused blood and platelets. ID team recommended to continue with antibiotics aztreonam for 1 more week for her Pseudomonas infection. 05/28/2019 pt is still not cleared by oncology team , she is clinically the same or gradually improving , no new complaint , pt platelet are low again at 9k, and oncology team are planing for platelet transfusino , tomorrow she will get another dose of rituxan , will need 2 wks of aztreonam per ID Objective - Vital Signs Vital signs: Vital Signs Temp 98.8 F 05/28/19 17:27 Pulse 79 05/28/19 17:27 Resp 18 05/28/19 17:27 BP 154/84 05/28/19 17:27 Pulse Ox 95 05/28/19 11:46 Intake & Output 05/27/19 05/28/19 05/28/19 18:59 06:59 18:59 Intake Total 401 870 472 Output Total 1100 1100 1350 Balance -233 -207 -127 Weight 95.9 kg Intake: Intake, IV Titration 100 320 260 Amount Aztreonam 2 gm In Sodium 100 200 100 Chloride 0.9% 100 ml @ 100 mls/hr IVPB Q8H [facility] Rx#:[id number] Sodium Chloride 0.9% 1, 160 000 ml @ 0 mls/hr IV .STK -MED ONE Rx#:[id number] Sodium Chloride 0.9% 500 120 ml 500 ml @ 20 mls/hr IV .Q24H [facility] Rx#:[id number] Oral 240 Blood Product 301 310 212 Platelet Irr Pheresis 2 301 Acda Unit [id number] Platelet Irr Pheresis 212 Acda1 Unit [id number] Rc Irr As1 Unit 310 [id number] Output: Urine 1100 1100 1350 Other: Voiding Method Indwelling Catheter Indwelling Catheter Indwelling Catheter # Voids 1 - Exam -GENERAL: The patient is alert and oriented x3, not in any acute distress. Pale and weak HEENT: Pupils are round and equally reacting to light. EOMI. No scleral icterus. No conjunctival pallor. Normocephalic, atraumatic. No pharyngeal erythema. No thyromegaly. CARDIOVASCULAR: S1 and S2 present. No murmurs, rubs, or gallops. PULMONARY: Chest is clear to auscultation, no wheezing or crackles. ABDOMEN: Soft, nontender, nondistended, normoactive bowel sounds. No palpable organomegaly. MUSCULOSKELETAL: No joint swelling or deformity. EXTREMITIES: No cyanosis, clubbing, or pedal edema. NEUROLOGICAL: Gross neurological examination did not reveal any focal deficits. SKIN: No rashes. - Labs CBC & Chem 7: 05/28/19 09:14 05/28/19 09:14 Labs: Abnormal Lab Results - Last 24 Hours (Table) 05/27/19 05/27/19 05/28/19 Range/Units 11:22 21:04 07:16 WBC (3.8-10.6) k/uL RBC (3.80-5.40) m/uL Hgb (11.4-16.0) gm/dL Hct (34.0-46.0) % Plt Count (150-450) k/uL Neutrophils # (1.3-7.7) k/uL Sodium (137-145) mmol/L Creatinine (0.52-1.04) mg/dL Glucose (74-99) mg/dL POC Glucose (mg/dL) 137 H 109 H (75-99) mg/dL Calcium (8.4-10.2) mg/dL Crossmatch See Detail 05/28/19 05/28/19 05/28/19 Range/Units 09:14 09:14 11:22 WBC 1.5 L (3.8-10.6) k/uL RBC 2.55 L (3.80-5.40) m/uL Hgb 7.9 L (11.4-16.0) gm/dL Hct 22.8 L (34.0-46.0) % Plt Count 9 L* (150-450) k/uL Neutrophils # 0.1 L* (1.3-7.7) k/uL Sodium 134 L (137-145) mmol/L Creatinine 0.36 L (0.52-1.04) mg/dL Glucose 126 H (74-99) mg/dL POC Glucose (mg/dL) 136 H (75-99) mg/dL Calcium 7.0 L (8.4-10.2) mg/dL Crossmatch 05/28/19 Range/Units 17:20 WBC (3.8-10.6) k/uL RBC (3.80-5.40) m/uL Hgb (11.4-16.0) gm/dL Hct (34.0-46.0) % Plt Count (150-450) k/uL Neutrophils # (1.3-7.7) k/uL Sodium (137-145) mmol/L Creatinine (0.52-1.04) mg/dL Glucose (74-99) mg/dL POC Glucose (mg/dL) 154 H (75-99) mg/dL Calcium (8.4-10.2) mg/dL Crossmatch Microbiology - Last 24 Hours (Table) 05/21/19 12:14 Blood Culture - Final Blood No Growth after 144 hours 05/21/19 12:04 Blood Culture - Final Blood No Growth after 144 hours Assessment and Plan Assessment: Pancytopenia SIR syndrome with fever and leukopenia and tachypnea , improving sepsis secondary to speudomonas , mostly secondary to pneumonia. Improving sigmoid diverticulitis , resolved chronic stable pulmonary infiltrates Elevated lactic acid. Resolved Dehydration and generalized weakness Acute hypoxemic respiratory failure CLL With leukocytosis. on Therapy Recent history of acute lung injury, related to multiple blood/platelet transfusion, with possible pneumonia History of breast cancer in 2014 status post chemo/radiation and surgery. Currently on anastrozole Hypertension Hyperlipidemia Osteoarthritis Previous history of smoking DVT prophylaxis with SCDs Plan: This is a pleasant 73 years old female who presents with pancytopenia and review of her CLL or therapy, also she has multiple lung infiltrates. Continue with IV antibiotics till patient will be created by infectious disease team for discharge. I discussed the case with oncology team, possible discharge in the coming few days however patient would benefit from subacute rehab, we'll ask for PT OT evaluation follow-up.abs and medication were reviewed.. Continue same treatment. Continue with symptomatic treatment. Resume home medication. Monitor lytes and vitals. DVT and GI prophylaxis. Further recommendations of the clinical course of the patient DVT prophylaxis: No anticoagulation in the view of low platelets GI Prophylaxis: Pepcid PT/OT: Pending Prognosis is guarded
[2019-05-28] MEDS: ATORVASTATIN 40 MG TAB PO SCH (20:17)
[2019-05-28 21:14] LABS: Glucose,Whole Blood 137 mg/dL (75-99)
[2019-05-29] MEDS: AZTREONAM 2 GM in SODIUM CHLORIDE 0.9% 100 ML IVPB SCH ×2 (04:27→12:51)
[2019-05-29 07:16] LABS: Glucose,Whole Blood 117 mg/dL (75-99)
[2019-05-29] MEDS: INSULIN ASPART (NovoLOG) 100 UNIT/ML VIAL SQ SCH ×4 (08:10→21:35)
[2019-05-29] MEDS: SODIUM CHLORIDE 0.9% 500 ML 500 ML IV SCH (08:10)
[2019-05-29 08:17] LABS: African American GFR (CKD) >90 (>60 ml/min/1.73 sqM); Anion Gap 6 mmol/L; Blood Urea Nitrogen 12 mg/dL (7-17); Calcium 7.1 mg/dL (8.4-10.2); Carbon Dioxide 24 mmol/L (22-30); Chloride 105 mmol/L (98-107); Glucose 103 mg/dL (74-99); Potassium 3.6 mmol/L (3.5-5.1); Sodium 135 mmol/L (137-145)
[2019-05-29 08:50] LABS: Basophils % (A) 0 %; Eosinophils % (A) 2 %; HCT 21.8 % (34.0-46.0); HGB 7.5 gm/dL (11.4-16.0); Lymphocytes # (A) 1.1 k/uL (1.0-4.8); Lymphocytes % (A) 84 %; MCH 30.7 pg (25.0-35.0); MCHC 34.3 g/dL (31.0-37.0); MCV 89.3 fL (80.0-100.0); Mean Platelet Volume 12.7; Monocytes # (A) 0.1 k/uL (0-1.0); Monocytes % (A) 4 %; Neutrophils % (A) 9 %; RBC 2.45 m/uL (3.80-5.40); RDW 14.5 % (11.5-15.5)
[2019-05-29 08:55] LABS: WBC 1.4 k/uL (3.8-10.6)
[2019-05-29] MEDS: ONDANSETRON 4 MG/2 ML VIAL IVP PRN ×2 (09:17→14:38)
[2019-05-29] MEDS: CALCIUM CARBONATE 500 MG CHEWABLE PO PRN (09:17)
[2019-05-29] MEDS: PANTOPRAZOLE 40 MG TABLET PO SCH ×2 (09:20→17:38)
[2019-05-29] MEDS: ALLOPURINOL 300 MG TAB PO SCH (09:20)
[2019-05-29] MEDS: valACYclovir HCL 1,000 MG TABLET PO SCH ×2 (09:21→21:39)
[2019-05-29] MEDS: POLYETHYLENE GLYCOL 3350 17 GM POWD.PACK PO SCH (09:21)
[2019-05-29] MEDS: SENNOSIDES-DOCUSATE SODIUM 1 EACH TAB PO SCH ×3 (09:21→22:30)
[2019-05-29] MEDS ORDERED: IOPAMIDOL-300 CONTRAST 30 ML VIAL (ORAL USE) PO PRN (10:04)
--- NOTE | 2019-05-29 10:06 | XR ---
EXAMINATION TYPE: XR abdomen acute w cxr DATE OF EXAM: 05/29/2019 COMPARISON: CT of the abdomen and pelvis dated 05/19/2019 HISTORY: Severe abdominal pain. TECHNIQUE: Frontal view of the chest was obtained. Supine and upright views of the abdomen are obtai kwaku. FINDINGS: Redemonstration of scattered multifocal opacities throughout the lungs similar to 05/21/2019 chest x-ra y. There is no evidence for pneumoperitoneum. Bowel gas pattern appears similar when compared to CT of the chest abdomen and pelvis dated 05/19/2019. Small bowel loops are seen measuring up to 2.7 cm. Gas-filled loop of large intestines on the right is again seen measuring 12.5 cm, which is similar in size when compared to CT. No sizeable air fluid levels. Cholelithiasis. Possible changes in the left upper abdomen. Surgical hernia repair over the bilateral inguinal canals. IMPRESSION: Redemonstration of multifocal pneumonia. Bowel gas pattern is similar to CT of the abdomen and pelvis dated 05/19/2019. No free intraperitoneal air.
[2019-05-29 10:24] LABS: Poikilocytosis (M) Present
[2019-05-29 10:26] LABS: Platelet Count 8 k/uL (150-450)
[2019-05-29 10:31] LABS: Neutrophils # (A) 0.1 k/uL (1.3-7.7)
[2019-05-29] MEDS: FILGRASTIM-SNDZ 480 MCG/0.8 ML SYRINGE SQ SCH (10:44)
[2019-05-29] MEDS: metroNIDAZOLE-NS PMX 500 MG in SALINE 1 100ML.BAG IVPB SCH ×2 (10:44→17:37)
[2019-05-29 11:10] LABS: Glucose,Whole Blood 128 mg/dL (75-99)
--- NOTE | 2019-05-29 11:18 | P.PN ---
Subjective this Is a 73-year-old female with a known history of hypertension, hyperlipidemia and CLL and history of breast cancer in 2014 status post chemoradiation and surgery who is currently being treated for CLL with imatinab and is on follow-up with Dr. Oliva as an outpatient was sent to Hospital due to thrombocytopenia. Next a 2 been discharged from the hospital she got platelet and blood transfusion at hematology office, however patient was developing diarrhea about 3 times per day with no significant abdominal pain for about one week, associated with generalized weakness and malaise and dry cough for 3 days with no significant dyspnea or chest pain. Patient went for her hematology office follow-up today and her blood work showed slow platelet count and patient was sent to the hospital. Also on the hospital patient was put back on oxygen, she was discharged on room air last time. Patient was recently discharged from hospital 4 days ago for acute lung injury and possible pneumonia, related to multiple blood/platelet transfusion and was treated in the ICU, after stabilization she was discharged. Also at that time patient has pancytopenia, and the discharge age her white cell count was 11.7 K, hemoglobin 8.1 and platelet 18 K. This time hematology oncology team send the patient to emergency room for pancytopenia with WBC 3.0K, hemoglobin 6.6 and platelet 2K. INR is 1.0, potassium of 3.1, creatinine 0.9, and lactic acid is elevated at 2.3. On admission patient has been afebrile, Restoril Vitas looks stable, she was saturating 87-88% on room air, saturation went up to 96 and 3 L. Chest x-ray: Showing cardiomegaly with bilateral multifocal infiltrates. Patient is getting IV fluids at 100 L/h, also she supposed to get platelets and blood transfusion today, discussed with staff. Also patient was started on vancomycin and cefepime. 05/20/2019 Patient yesterday was hypotensive and tachypneic and she was saturating 93-97% on 3 L oxygen, staff concerned that her more fluid can compromise her resp function so patient was transferred to the intensive care unit, as per staff pt can not go to select unit. today is more awake and, however she is tachypneic with respiratory rate 22-25, blood pressure is improved to 114/70, she saturating 93-94% and is related to her, she had fever of 103.3 yesterday. Labs from today showing slight improvement in his WBC at 1.6K, hemoglobin improved to 6.7, platelets 3K. Sodium 136, creatinine normal at 0.7, sugar control. Patient remains in the ICU with on antibiotics in the form of vancomycin and cefepime is provided to the patient. Chest x-ray showing diffuse bilateral infiltrate with left pleural effusion, pneumonia versus pulmonary edema. 05/21/2019 pt is in the ICU, she is doing better , however she is still tachypenic, no chest pain or coughing , her blood culture is growing pseudomonas which is mostly related to her current sepsis , ID team already stopped vancomycin and increased the dose of cefepime, her cxr shows stable findings , source could be from [place] althought she has evidence of diverticulitis as well but her pain is not major in her belly , pt is still generally weak , pt is constipated rather than diarrhea, her pancytopenia is worse , no fever today , pt vitals remain stable. iv fluids were stopped . pt is felt stable to go to medical floor from yesterday however critical care team recommended to keep monitoring pt in icu for now 05/22/2019 pt is transferred to the general medical floor today , he breathing looks better , coughing and weakness are improving as well, no more abd pain and her LLQ tenderness improved as well. she is hemodynamically stable , labs shwoing improving leukocytes up to 1.2 , hb stable at 7.5 , platelet improved to 12k, pt has low grade fever yesterday night at 99.9, bp stable, pt developed rash on the trunk and mainly back and thought it is due to cefepime which is switched to aztreonam as per ID team. Patient has been taking care of by Dr. Cheung over the weekend and on a Sunday. 05/26/2019 Patient is seen in the general medical floor, she looks better, breathing more quiet with less respiratory distress. No chest pain. Occasional coughing. She remains on is aztreonam and Valacyclovir. Infectious disease R following the case closely. Her WBC is stable at 1.7, hemoglobin 7.5 and platelet 19. Discussed the case with oncology team. Patient could not work with PT/OT today and the proper way, whoever evaluated tomorrow We'll double check with infectious disease and oncology team about the discharge planning Discharge planning in 24-48 hours 05/27/2019 Patient clinically doing well, with her breathing is a stable. No chest pain. No dyspnea. Occasional coughing. Pancytopenia is worsened today with WBC down to 1.3, hemoglobin 6.9, platelets 8K, patient is getting been transfused blood and platelets. ID team recommended to continue with antibiotics aztreonam for 1 more week for her Pseudomonas infection. 05/28/2019 pt is still not cleared by oncology team , she is clinically the same or gradually improving , no new complaint , pt platelet are low again at 9k, and oncology team are planing for platelet transfusino , tomorrow she will get another dose of rituxan , will need 2 wks of aztreonam per ID 05/29/2019 Patient is awake with no chest pain or dyspnea. She has some abdominal discomfort. Vitals stable however she still have severe pancytopenia with WBC at 1.4, hemoglobin 7.5 and platelets 8, and absolute neutrophil is 0.1. rest of labs looked unremarkable. Patient is scheduled to get rituxan today or tomorrow by the hematology/oncology team. Patient might benefit from ECF upon discharge, discussed with social media content manager, however patient did not want to discuss it with the instability today Objective - Vital Signs Vital signs: Vital Signs Temp 98.0 F 05/29/19 04:10 Pulse 76 05/29/19 04:10 Resp 18 05/29/19 04:10 BP 164/67 05/29/19 04:10 Pulse Ox 95 05/29/19 04:10 Intake & Output 05/28/19 05/29/19 05/29/19 18:59 06:59 18:59 Intake Total 472 320 Output Total 1350 1300 Balance -878 -980 Weight 95.9 kg 94.539 kg Intake: Intake, IV Titration 260 320 Amount Aztreonam 2 gm In Sodium 100 200 Chloride 0.9% 100 ml @ 100 mls/hr IVPB Q8H [facility] Rx#:[id number] Sodium Chloride 0.9% 1, 160 000 ml @ 0 mls/hr IV .STK -MED ONE Rx#:[id number] Sodium Chloride 0.9% 500 120 ml 500 ml @ 20 mls/hr IV .Q24H [facility] Rx#:[id number] Blood Product 212 Platelet Irr Pheresis 212 Acda1 Unit [id number] Output: Urine 1350 1300 Other: Voiding Method Indwelling Catheter Indwelling Catheter # Bowel Movements 2 - Exam -GENERAL: The patient is alert and oriented x3, not in any acute distress. Pale and weak HEENT: Pupils are round and equally reacting to light. EOMI. No scleral icterus. No conjunctival pallor. Normocephalic, atraumatic. No pharyngeal erythema. No thyromegaly. CARDIOVASCULAR: S1 and S2 present. No murmurs, rubs, or gallops. PULMONARY: Chest is clear to auscultation, no wheezing or crackles. ABDOMEN: Soft, nontender, nondistended, normoactive bowel sounds. No palpable organomegaly. MUSCULOSKELETAL: No joint swelling or deformity. EXTREMITIES: No cyanosis, clubbing, or pedal edema. NEUROLOGICAL: Gross neurological examination did not reveal any focal deficits. SKIN: No rashes. - Labs CBC & Chem 7: 05/29/19 07:00 05/29/19 07:00 Labs: Abnormal Lab Results - Last 24 Hours (Table) 05/28/19 05/28/19 05/28/19 Range/Units 11:22 17:20 21:13 WBC (3.8-10.6) k/uL RBC (3.80-5.40) m/uL Hgb (11.4-16.0) gm/dL Hct (34.0-46.0) % Plt Count (150-450) k/uL Neutrophils # (1.3-7.7) k/uL Sodium (137-145) mmol/L Creatinine (0.52-1.04) mg/dL Glucose (74-99) mg/dL POC Glucose (mg/dL) 136 H 154 H 137 H (75-99) mg/dL Calcium (8.4-10.2) mg/dL 05/29/19 05/29/19 05/29/19 Range/Units 07:00 07:00 07:04 WBC 1.4 L* (3.8-10.6) k/uL RBC 2.45 L (3.80-5.40) m/uL Hgb 7.5 L (11.4-16.0) gm/dL Hct 21.8 L (34.0-46.0) % Plt Count 8 L* (150-450) k/uL Neutrophils # 0.1 L* (1.3-7.7) k/uL Sodium 135 L (137-145) mmol/L Creatinine 0.36 L (0.52-1.04) mg/dL Glucose 103 H (74-99) mg/dL POC Glucose (mg/dL) 117 H (75-99) mg/dL Calcium 7.1 L (8.4-10.2) mg/dL 05/29/19 Range/Units 11:08 WBC (3.8-10.6) k/uL RBC (3.80-5.40) m/uL Hgb (11.4-16.0) gm/dL Hct (34.0-46.0) % Plt Count (150-450) k/uL Neutrophils # (1.3-7.7) k/uL Sodium (137-145) mmol/L Creatinine (0.52-1.04) mg/dL Glucose (74-99) mg/dL POC Glucose (mg/dL) 128 H (75-99) mg/dL Calcium (8.4-10.2) mg/dL Assessment and Plan Assessment: Pancytopenia SIR syndrome with fever and leukopenia and tachypnea , improving sepsis secondary to speudomonas , mostly secondary to pneumonia. Improving sigmoid diverticulitis , resolved chronic stable pulmonary infiltrates Elevated lactic acid. Resolved Dehydration and generalized weakness Acute hypoxemic respiratory failure CLL With leukocytosis. on Therapy Recent history of acute lung injury, related to multiple blood/platelet transfusion, with possible pneumonia History of breast cancer in 2014 status post chemo/radiation and surgery. Currently on anastrozole Hypertension Hyperlipidemia Osteoarthritis Previous history of smoking DVT prophylaxis with SCDs Plan: This is a pleasant 73 years old female who presents with pancytopenia and review of her CLL or therapy, also she has multiple lung infiltrates. Continue with IV antibiotics till patient will be created by infectious disease team for discharge. I discussed the case with oncology team, possible discharge in the coming few days however patient would benefit from subacute rehab, we'll ask for PT OT evaluation follow-up.abs and medication were reviewed.. Continue same treatment. Continue with symptomatic treatment. Resume home medication. Monitor lytes and vitals. DVT and GI prophylaxis. Further recommendations of the clinical course of the patient DVT prophylaxis: No anticoagulation in the view of low platelets GI Prophylaxis: Pepcid PT/OT: Pending Prognosis is guarded
--- NOTE | 2019-05-29 12:20 | CT ---
EXAMINATION TYPE: CT abdomen wo con DATE OF EXAM: 05/29/2019 COMPARISON: 05/19/2019 HISTORY: Abdominal pain. CT DLP: 700 mGycm Automated exposure control for dose reduction was used. TECHNIQUE: Helical acquisition of images was performed from the lung bases through the top of iliac crest to include entire abdomen. CONTRAST: Performed with Oral Contrast and without IV contrast. FINDINGS: LUNG BASES: Small left pleural effusion with associated atelectasis. Trace pericardial effusion. LIVER/GB: Grossly stable to 05/19/2019. PANCREAS: Grossly stable compared to 05/19/2019. SPLEEN: Small amount of perisplenic ascites. ADRENALS: Grossly stable when compared 05/19/2019. KIDNEYS: Heterogeneous appearance of the right kidney with enlargement and perinephric fat stranding. No renal stones. No hydronephrosis. BOWEL: No bowel obstruction. Previously seen diverticulitis is not imaged. No free air. No loculated fluid collection. LYMPH NODES: No significant abnormality is appreciated. OSSEOUS STRUCTURES: No significant abnormality is seen. IMPRESSION: DEVELOPMENT OF ASYMMETRIC ENLARGEMENT OF THE RIGHT KIDNEY WITH FINDINGS SUGGESTIVE OF PYELONEPHRITIS. ADDITIONAL DIFFERENTIAL WOULD INCLUDE RENAL INFARCT AND LESS LIKELY LACERATION. CORRELATION WITH RET ROPERITONEAL ULTRASOUND MAY BE HELPFUL.
[2019-05-29] MEDS: traMADol 50 MG TAB PO PRN (12:57)
--- NOTE | 2019-05-29 13:05 | P.GSCN ---
History of Present Illness Consult date: 05/29/19 Reason for Consult: right-sided abdominal pain History of present illness: the patient is a 73-year-old female who is known to me from previous surgery. She has been admitted to the [facility] with severe pancytopenia. This morning she began to develop sudden sharp pain on the right side of her abdomen. This is somewhat improved with pain medication. The patient has had some loose stool. No blood in the stool or dark tarry stool. Review of Systems All systems: negative Past Medical History Past Medical History: Blood Disorder, Cancer, Hyperlipidemia, Hypertension, Osteoarthritis (OA), Pneumonia, Sleep Apnea/CPAP/BIPAP Additional Past Medical History / Comment(s): Pt recently admitted to [facility] on 04/25/19 with acute hypoxic respiratory failure 2ndary to acute lung injury r/t blood/platelet transfusions. Other hx: CLL, low platelets, anemia, thrombocytopenia/ptechial rash, neutropenia, current cold sores, 2014 R breast cancer with lumpectomy/chemo/radiation, CÉSAR with Cpap. History of Any Multi-Drug Resistant Organisms: None Reported Past Surgical History: Bladder Surgery, Breast Surgery, Joint Replacement, Tubal Ligation, Uterine Ablation Additional Past Surgical History / Comment(s): 04/29/19 BMA with bx, R breast lumpectomy, bladder suspension, several D&Cs, colonoscopy. Past Anesthesia/Blood Transfusion Reactions: Postoperative Nausea & Vomiting (PONV) Additional Past Anesthesia/Blood Transfusion Reaction / Comm: Pt has received blood/platelets without reaction. Smoking Status: Former smoker - Past Family History Father Family Medical History: Cancer Additional Family Medical History / Comment(s): Father had lung cancer. He was a nonsmoker. Sister(s) Family Medical History: Cancer Additional Family Medical History / Comment(s): Youngest sister has lung cancer that has metastasized to her liver Mother Family Medical History: Coronary Artery Disease (CAD) Additional Family Medical History / Comment(s): Mother of a [place] at the age of 96yrs. Medications and Allergies Home Medications Medication Instructions Recorded Confirmed Type Anastrozole [Arimidex] 1 mg PO DAILY 03/28/16 05/19/19 History amLODIPine [Norvasc] 5 mg PO BID 03/28/16 05/19/19 History Pantoprazole Sodium [Protonix] 40 mg PO BID #60 tablet. 04/27/16 05/19/19 Rx Allopurinol [Zyloprim] 300 mg PO DAILY 04/25/19 05/19/19 History Atorvastatin [Lipitor] 40 mg PO HS 04/25/19 05/19/19 History Docusate [Colace] 100 mg PO DAILY 04/25/19 05/19/19 History Ferrous Sulfate [Iron (65 MG 325 mg PO DAILY 04/25/19 05/19/19 History Elemental)] valACYclovir [Valtrex] 1,000 mg PO BID #60 tab 05/15/19 05/19/19 Rx Allergies Allergy/AdvReac Type Severity Reaction Status Date / Time cefepime Allergy Rash/Hives Verified 05/22/19 12:25 chocolate flavor Allergy hives Verified 05/19/19 16:33 Surgical - Exam Osteopathic Statement: *. No significant issues noted on an osteopathic structural exam other than those noted in the History and Physical/Consult. Vital Signs Temp Pulse Resp BP Pulse Ox 98.3 F 101 H 18 98/65 96 05/19/19 08:32 05/19/19 08:32 05/19/19 08:32 05/19/19 08:32 05/19/19 08:32 - General appears chronically ill and is uncomfortable moving in the bed well developed, well nourished - Eyes normal ocular movement - Neck trachea midline - Respiratory normal respiratory effort, clear to auscultation - Cardiovascular Rhythm: regular - Abdomen Abdomen: soft, tender (right lower quadrant), bowel sounds, no guarding, no rigid, no rebound, no distended Results - Labs 05/29/19 07:00 05/29/19 07:00 Abnormal Lab Results - Last 24 Hours (Table) 05/28/19 05/28/19 05/29/19 Range/Units 17:20 21:13 07:00 WBC 1.4 L* (3.8-10.6) k/uL RBC 2.45 L (3.80-5.40) m/uL Hgb 7.5 L (11.4-16.0) gm/dL Hct 21.8 L (34.0-46.0) % Plt Count 8 L* (150-450) k/uL Neutrophils # 0.1 L* (1.3-7.7) k/uL Sodium (137-145) mmol/L Creatinine (0.52-1.04) mg/dL Glucose (74-99) mg/dL POC Glucose (mg/dL) 154 H 137 H (75-99) mg/dL Calcium (8.4-10.2) mg/dL 05/29/19 05/29/19 05/29/19 Range/Units 07:00 07:04 11:08 WBC (3.8-10.6) k/uL RBC (3.80-5.40) m/uL Hgb (11.4-16.0) gm/dL Hct (34.0-46.0) % Plt Count (150-450) k/uL Neutrophils # (1.3-7.7) k/uL Sodium 135 L (137-145) mmol/L Creatinine 0.36 L (0.52-1.04) mg/dL Glucose 103 H (74-99) mg/dL POC Glucose (mg/dL) 117 H 128 H (75-99) mg/dL Calcium 7.1 L (8.4-10.2) mg/dL Diabetes panel 05/29/19 Range/Units 07:00 Sodium 135 L (137-145) mmol/L Potassium 3.6 (3.5-5.1) mmol/L Chloride 105 (98-107) mmol/L Carbon Dioxide 24 (22-30) mmol/L BUN 12 (7-17) mg/dL Creatinine 0.36 L (0.52-1.04) mg/dL Glucose 103 H (74-99) mg/dL Calcium 7.1 L (8.4-10.2) mg/dL Calcium panel 05/29/19 Range/Units 07:00 Calcium 7.1 L (8.4-10.2) mg/dL Pituitary panel 05/29/19 Range/Units 07:00 Sodium 135 L (137-145) mmol/L Potassium 3.6 (3.5-5.1) mmol/L Chloride 105 (98-107) mmol/L Carbon Dioxide 24 (22-30) mmol/L BUN 12 (7-17) mg/dL Creatinine 0.36 L (0.52-1.04) mg/dL Glucose 103 H (74-99) mg/dL Calcium 7.1 L (8.4-10.2) mg/dL Adrenal panel 05/29/19 Range/Units 07:00 Sodium 135 L (137-145) mmol/L Potassium 3.6 (3.5-5.1) mmol/L Chloride 105 (98-107) mmol/L Carbon Dioxide 24 (22-30) mmol/L BUN 12 (7-17) mg/dL Creatinine 0.36 L (0.52-1.04) mg/dL Glucose 103 H (74-99) mg/dL Calcium 7.1 L (8.4-10.2) mg/dL - Imaging CT scan - abdomen: report reviewed, image reviewed Assessment and Plan (1) Abnormal CT scan, kidney Current Visit: Yes Status: Acute Code(s): R93.429 - ABNORMAL RADIOLOGIC FINDINGS ON DX IMAGING OF UNSP KIDNEY SNOMED Code(s): 593850340 (2) Bacteremia due to Pseudomonas Current Visit: Yes Status: Acute Priority: High Code(s): R78.81 - BACTEREMIA SNOMED Code(s): 123843855913 (3) Pancytopenia Current Visit: Yes Status: Acute Priority: High Code(s): D61.818 - OTHER PANCYTOPENIA SNOMED Code(s): 370772022 (4) CLL (chronic lymphocytic leukemia) Current Visit: Yes Status: Chronic Priority: High Code(s): C91.90 - LYMPHOID LEUKEMIA, UNSPECIFIED NOT HAVING ACHIEVED REMISSION SNOMED Code(s): 30690670 Plan: Although there is a possibility she has to typhlitis, there does appear to be an abnormality of the right kidney. I took the liberty of ordering an ultrasound of the kidney to evaluate this further. The patient is currently nonsurgical.
--- NOTE | 2019-05-29 13:25 | PN ---
PROGRESS NOTE DATE OF SERVICE: 05/29/2019 REASON FOR FOLLOWUP: 1. Pseudomonas bacteremia. 2. Acute abdominal pain. INTERVAL HISTORY: The patient has been afebrile. Patient has developed acute right-sided abdominal pain this morning. The patient described to be sharp almost 6 to 7 out of 10, and no radiation. Has been nauseated, but no vomiting. Diarrhea has slowed down. Patient did have Espinoza catheter placed and not sure why. REVIEW OF SYSTEMS: Positive points as mentioned above; the rest of the systems negative. Past medical and surgical history is unchanged. Medication reviewed. PHYSICAL EXAMINATION: On examination, blood pressure 174/79 with a pulse of 80, temperature 97.8. She is 93% on room air. General description is an elderly female, lying in bed in no distress. RESPIRATORY SYSTEM: Unlabored breathing, clear to auscultation anteriorly. HEART: S1, S2. Regular rate and rhythm. ABDOMEN: Soft. She is tender in right lower quadrant area. No guarding or rigidity. EXTREMITIES: Some trace edema of feet. SKIN EXAMINATION: LABS: Hemoglobin 7.5 with 1.4, BUN of 12, creatinine 0.36. DIAGNOSTIC IMPRESSION AND PLAN: 1. The patient with Pseudomonas aeruginosa bacteremia, possible . Followup blood culture has negative. Currently on Azactam 2 gram q.8 hours with a plan for total of 2 weeks of antibiotics. 2. The patient now with acute right lower abdominal pain. This patient has been neutropenic for a while with concern for possible typhlitis. We will check a CT of abdomen and pelvis with oral contrast only. This was discussed with the nurse practitioner for the oncology. We will add Flagyl 500 every 8 hours and monitor clinical course closely. MMODL / IJN: [id number] /
--- NOTE | 2019-05-29 14:39 | US ---
EXAMINATION TYPE: US kidneys/renal and bladder DATE OF EXAM: 05/29/2019 COMPARISON: CT of the same date CLINICAL HISTORY: abnormal CT scan. Abnormal CT EXAM MEASUREMENTS: Right Kidney: 12.0 x 6.6 x 5.5 cm Left Kidney: 13.8 x 5.7 x 5.3 cm Pt very gassy, labored breathing, difficult exam Right Kidney: The right kidney is diffusely heterogenous with poor cortical medullary differentiation . Overall there is diminished cortical flow suggesting pyelonephritis. There does appear to be centr al flow present. Left Kidney: Appeared wnl Bladder: Unable to visualize due to cath in place Incidental gallstones There is no evidence for hydronephrosis at this point in time. No nephrolithiasis is seen. No bandar s are identified. The urinary bladder is anechoic. Bilateral ureteral jets are seen. IMPRESSION: Sonographic findings suggest extensive right-sided pyelonephritis. No definitive perinephric abscess at this time. Incidentally noted cholelithiasis.
[2019-05-29 15:46] LABS: Appearance,Urine Clear (Clear); Bacteria,Urine Rare /hpf; Bilirubin,Urine Negative (Negative); Blood,Urine Moderate (Negative); Color,Urine Yellow; Glucose,Urine (UA) Negative (Negative); Ketones,Urine Negative (Negative); Leukocyte Esterase,Urine Negative (Negative); Mucus,Urine Rare /hpf; Nitrite,Urine Negative (Negative); PH, Urine 6.5 (5.0-8.0); Protein,Urine 1+ (Negative); RBC,Urine >182 /hpf (0-5); Specific Gravity,Urine 1.015 (1.001-1.035); Squamous Epithelial Cell,Urine <1 /hpf (0-4)
[2019-05-29 17:01] LABS: Glucose,Whole Blood 128 mg/dL (75-99)
[2019-05-29] MEDS: HYDROmorphone 0.5 MG/0.5 ML SYRINGE IVP PRN (19:10)
--- NOTE | 2019-05-29 19:14 | P.PN ---
Subjective Progress Note Date: 05/29/19 Principal diagnosis: Pseudomonas bacteremia. Pancytopenia secondary to CLL, currently receiving monoclonal antibody therapy weekly. In f/u today pt has c/o of RLQ pain, new onset, associated with nausea, no vomiting, she has not ate or drank anything this AM, no fever but feels warm, she is generally uncomfortable. Objective - Vital Signs Vital signs: Vital Signs Temp 97.8 F 05/29/19 11:20 Pulse 80 05/29/19 11:20 Resp 18 05/29/19 11:20 BP 174/79 05/29/19 11:20 Pulse Ox 93 L 05/29/19 11:20 Intake & Output 05/29/19 05/29/19 05/30/19 06:59 18:59 06:59 Intake Total 320 200 Output Total 1300 Balance -980 200 Weight 94.539 kg Intake: Intake, IV Titration 320 200 Amount Aztreonam 2 gm In Sodium 200 100 Chloride 0.9% 100 ml @ 100 mls/hr IVPB Q8H [facility] Rx#:[id number] Sodium Chloride 0.9% 500 120 ml 500 ml @ 20 mls/hr IV .Q24H [facility] Rx#:[id number] metroNIDAZOLE-NS PMX 500 100 mg In Saline 1 100ml.bag @ 100 mls/hr IVPB Q8HR [facility] Rx#:[id number] Output: Urine 1300 Other: Voiding Method Indwelling Catheter Indwelling Catheter # Bowel Movements 2 - Constitutional General appearance: Present: cooperative, mild distress - EENT Eyes: Present: anicteric sclerae, EOMI ENT: Present: normal oropharynx - Respiratory Respiratory: bilateral: CTA (deep inspiration causes abd discomfort) - Cardiovascular Heart sounds: normal: S1, S2 - Peripheral edema leg Peripheral Edema: bilateral: Trace - Gastrointestinal Gastrointestinal Comment(s): no rebound General gastrointestinal: Present: distended, normal bowel sounds, soft, tenderness. Absent: absent bowel sounds, decreased bowel sounds, hepatomegaly, hyperactive bowel sounds, organomegaly, rigid, scaphoid, splenomegaly, umbilical hernia, ventral hernia Localized gastrointestinal: tender: RLQ, midline - Integumentary Integumentary: Present: pale - Neurologic Neurologic: Present: CNII-XII intact - Musculoskeletal Musculoskeletal: Present: generalized weakness - Psychiatric Psychiatric: Present: A&O x's 3, appropriate affect, intact judgment & insight - Labs CBC & Chem 7: 05/29/19 07:00 05/29/19 07:00 Labs: Abnormal Lab Results - Last 24 Hours (Table) 05/28/19 05/29/19 05/29/19 Range/Units 21:13 07:00 07:00 WBC 1.4 L* (3.8-10.6) k/uL RBC 2.45 L (3.80-5.40) m/uL Hgb 7.5 L (11.4-16.0) gm/dL Hct 21.8 L (34.0-46.0) % Plt Count 8 L* (150-450) k/uL Neutrophils # 0.1 L* (1.3-7.7) k/uL Sodium 135 L (137-145) mmol/L Creatinine 0.36 L (0.52-1.04) mg/dL Glucose 103 H (74-99) mg/dL POC Glucose (mg/dL) 137 H (75-99) mg/dL Calcium 7.1 L (8.4-10.2) mg/dL Urine Protein (Negative) Urine Blood (Negative) Urine RBC (0-5) /hpf Urine Bacteria (None) /hpf Urine Mucus (None) /hpf 05/29/19 05/29/19 05/29/19 Range/Units 07:04 11:08 15:20 WBC (3.8-10.6) k/uL RBC (3.80-5.40) m/uL Hgb (11.4-16.0) gm/dL Hct (34.0-46.0) % Plt Count (150-450) k/uL Neutrophils # (1.3-7.7) k/uL Sodium (137-145) mmol/L Creatinine (0.52-1.04) mg/dL Glucose (74-99) mg/dL POC Glucose (mg/dL) 117 H 128 H (75-99) mg/dL Calcium (8.4-10.2) mg/dL Urine Protein 1+ H (Negative) Urine Blood Moderate H (Negative) Urine RBC >182 H (0-5) /hpf Urine Bacteria Rare H (None) /hpf Urine Mucus Rare H (None) /hpf 05/29/19 Range/Units 16:59 WBC (3.8-10.6) k/uL RBC (3.80-5.40) m/uL Hgb (11.4-16.0) gm/dL Hct (34.0-46.0) % Plt Count (150-450) k/uL Neutrophils # (1.3-7.7) k/uL Sodium (137-145) mmol/L Creatinine (0.52-1.04) mg/dL Glucose (74-99) mg/dL POC Glucose (mg/dL) 128 H (75-99) mg/dL Calcium (8.4-10.2) mg/dL Urine Protein (Negative) Urine Blood (Negative) Urine RBC (0-5) /hpf Urine Bacteria (None) /hpf Urine Mucus (None) /hpf Assessment and Plan (1) Abdominal pain Narrative/Plan: Pt made NPO, antiemetics ordered, acute abd series ordered. Did discuss briefly with ID. CT with oral contrast ordered, flagyl added. Current Visit: Yes Status: Acute Priority: High Code(s): R10.9 - UNSPECIFIED ABDOMINAL PAIN SNOMED Code(s): 01119917 (2) Bacteremia due to Pseudomonas Narrative/Plan: Infectious Disease recommendations, pt is on antibiotics Current Visit: Yes Status: Acute Priority: High Code(s): R78.81 - BACTEREMIA SNOMED Code(s): 760148634452 (3) CLL (chronic lymphocytic leukemia) Narrative/Plan: Patient is status post 3 of 4 cycles of weekly Rituxan. Her lymphocyte count has come down very well with treatment but, unfortunately we are not getting the rebound response in her other blood counts that would be anticipated with improvement in lymphocytosis. Patient is still requiring intermittent blood and platelet transfusions. Plan is to complete the 4 cycles and then another bone marrow in 2-3 weeks. Until such time pt will have to remain on frequent lab draws with supportive transfusions PRN. Orders for cycle 4/4 of Rituxan were sent but treatment will be held until re- evaluation in AM Current Visit: Yes Status: Chronic Priority: High Code(s): C91.90 - LYMPHOID LEUKEMIA, UNSPECIFIED NOT HAVING ACHIEVED REMISSION SNOMED Code(s): 79276663 (4) Pancytopenia Narrative/Plan: Secondary to disease and treatment. Hgb 7.5, no transfusion. 1 unit of single donor platelets for a hemoglobin of 8000. No aspirin, NSAIDs, anticoagulation. Continue G-CSF for an absolute neutrophil count less than 1000. Current Visit: Yes Status: Acute Priority: High Code(s): D61.818 - OTHER PANCYTOPENIA SNOMED Code(s): 196423915 (5) Constipation Narrative/Plan: 2 BMs documented Current Visit: Yes Status: Resolved Priority: High Code(s): K59.00 - CON STIPATION, UNSPECIFIED SNOMED Code(s): 60197398 Plan: attests: I have performed history adn physical exam, developed impression and plan of care, discussed with dictator, agree with dictation, documented as a scribe.
[2019-05-29 20:57] LABS: Glucose,Whole Blood 128 mg/dL (75-99)
[2019-05-29] MEDS: ATORVASTATIN 40 MG TAB PO SCH (21:39)
--- NOTE | 2019-05-29 22:09 | P.GSCN ---
History of Present Illness Consult date: 05/29/19 Reason for Consult: Hematuria Requesting physician: Hetal Rondon History of present illness: Ms. Ascencio is 73-year-old white female with a history of breast cancer diagnosed in 2013, treated with surgery and chemoradiation. She has since been on anastrozole without evidence of recurrence. After completion of chemotherapy of breast cancer she was noted to have increasing WBC with lymphocytosis, and flow cytometry confirmed CLL. In late 2017, she developed severe anemia due to GI bleed. EGD revealed a gastric stromal tumor, for which she underwent surgery in September 2018. Adjuvant Gleevec was recommended. However, the patient at this time developed increasing lymphadenopathy and increase in WBC due to which she received Rituxan weekly 4, with good response, in 12/03. She was then started on adjuvant Gleevec for her GI stromal tumor. Last month, she was found to have anemia and thrombocytopenia, along with significant leukocytosis. 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 She has subsequently been treated with platelet transfusions, steroids, and Rituxan. A blood culture obtained on 05/19/2019 showed pseudomonas aeruginosa. This morning she experienced acute right-sided abdominal pain, associated with gross hematuria. She denies any prior history of UTIs or urolithiasis. Review of Systems - Respiratory Reports cough - Gastrointestinal Reports abdominal pain, Reports nausea, Denies vomiting - Genitourinary Genitourinary: Reports hematuria, Denies flank pain Past Medical History Past Medical History: Blood Disorder, Cancer, Hyperlipidemia, Hypertension, Osteoarthritis (OA), Pneumonia, Sleep Apnea/CPAP/BIPAP Additional Past Medical History / Comment(s): Pt recently admitted to [facility] on 04/25/19 with acute hypoxic respiratory failure 2ndary to acute lung injury r/t blood/platelet transfusions. Other hx: CLL, low platelets, anemia, thrombocytopenia/ptechial rash, neutropenia, current cold sores, 2014 R breast cancer with lumpectomy/chemo/radiation, CÉSAR with Cpap. History of Any Multi-Drug Resistant Organisms: None Reported Past Surgical History: Bladder Surgery, Breast Surgery, Joint Replacement, Tubal Ligation, Uterine Ablation Additional Past Surgical History / Comment(s): 04/29/19 BMA with bx, R breast lumpectomy, bladder suspension, several D&Cs, colonoscopy. Past Anesthesia/Blood Transfusion Reactions: Postoperative Nausea & Vomiting (PONV) Additional Past Anesthesia/Blood Transfusion Reaction / Comm: Pt has received blood/platelets without reaction. Smoking Status: Former smoker - Past Family History Father Family Medical History: Cancer Additional Family Medical History / Comment(s): Father had lung cancer. He was a nonsmoker. Sister(s) Family Medical History: Cancer Additional Family Medical History / Comment(s): Youngest sister has lung cancer that has metastasized to her liver Mother Family Medical History: Coronary Artery Disease (CAD) Additional Family Medical History / Comment(s): Mother of a [place] at the age of 96yrs. Medications and Allergies Home Medications Medication Instructions Recorded Confirmed Type Anastrozole [Arimidex] 1 mg PO DAILY 03/28/16 05/19/19 History amLODIPine [Norvasc] 5 mg PO BID 03/28/16 05/19/19 History Pantoprazole Sodium [Protonix] 40 mg PO BID #60 tablet. 04/27/16 05/19/19 Rx Allopurinol [Zyloprim] 300 mg PO DAILY 04/25/19 05/19/19 History Atorvastatin [Lipitor] 40 mg PO HS 04/25/19 05/19/19 History Docusate [Colace] 100 mg PO DAILY 04/25/19 05/19/19 History Ferrous Sulfate [Iron (65 MG 325 mg PO DAILY 04/25/19 05/19/19 History Elemental)] valACYclovir [Valtrex] 1,000 mg PO BID #60 tab 05/15/19 05/19/19 Rx Allergies Allergy/AdvReac Type Severity Reaction Status Date / Time cefepime Allergy Rash/Hives Verified 05/22/19 12:25 chocolate flavor Allergy hives Verified 05/19/19 16:33 Surgical - Exam Vital Signs Temp Pulse Resp BP Pulse Ox 98.3 F 101 H 18 98/65 96 05/19/19 08:32 05/19/19 08:32 05/19/19 08:32 05/19/19 08:32 05/19/19 08:32 - General well developed, well nourished, no distress - Respiratory normal respiratory effort - Abdomen Abdomen: soft, tender (Mild right-sided tenderness to palpation), no guarding, no rigid, no rebound, no distended - Psychiatric oriented to time, oriented to person, oriented to place, speech is normal, memory intact Results - Labs 05/29/19 07:00 05/29/19 07:00 Abnormal Lab Results - Last 24 Hours (Table) 05/29/19 05/29/19 05/29/19 Range/Units 07:00 07:00 07:04 WBC 1.4 L* (3.8-10.6) k/uL RBC 2.45 L (3.80-5.40) m/uL Hgb 7.5 L (11.4-16.0) gm/dL Hct 21.8 L (34.0-46.0) % Plt Count 8 L* (150-450) k/uL Neutrophils # 0.1 L* (1.3-7.7) k/uL Sodium 135 L (137-145) mmol/L Creatinine 0.36 L (0.52-1.04) mg/dL Glucose 103 H (74-99) mg/dL POC Glucose (mg/dL) 117 H (75-99) mg/dL Calcium 7.1 L (8.4-10.2) mg/dL Urine Protein (Negative) Urine Blood (Negative) Urine RBC (0-5) /hpf Urine Bacteria (None) /hpf Urine Mucus (None) /hpf 05/29/19 05/29/19 05/29/19 Range/Units 11:08 15:20 16:59 WBC (3.8-10.6) k/uL RBC (3.80-5.40) m/uL Hgb (11.4-16.0) gm/dL Hct (34.0-46.0) % Plt Count (150-450) k/uL Neutrophils # (1.3-7.7) k/uL Sodium (137-145) mmol/L Creatinine (0.52-1.04) mg/dL Glucose (74-99) mg/dL POC Glucose (mg/dL) 128 H 128 H (75-99) mg/dL Calcium (8.4-10.2) mg/dL Urine Protein 1+ H (Negative) Urine Blood Moderate H (Negative) Urine RBC >182 H (0-5) /hpf Urine Bacteria Rare H (None) /hpf Urine Mucus Rare H (None) /hpf 05/29/19 Range/Units 20:55 WBC (3.8-10.6) k/uL RBC (3.80-5.40) m/uL Hgb (11.4-16.0) gm/dL Hct (34.0-46.0) % Plt Count (150-450) k/uL Neutrophils # (1.3-7.7) k/uL Sodium (137-145) mmol/L Creatinine (0.52-1.04) mg/dL Glucose (74-99) mg/dL POC Glucose (mg/dL) 128 H (75-99) mg/dL Calcium (8.4-10.2) mg/dL Urine Protein (Negative) Urine Blood (Negative) Urine RBC (0-5) /hpf Urine Bacteria (None) /hpf Urine Mucus (None) /hpf Diabetes panel 05/29/19 Range/Units 07:00 Sodium 135 L (137-145) mmol/L Potassium 3.6 (3.5-5.1) mmol/L Chloride 105 (98-107) mmol/L Carbon Dioxide 24 (22-30) mmol/L BUN 12 (7-17) mg/dL Creatinine 0.36 L (0.52-1.04) mg/dL Glucose 103 H (74-99) mg/dL Calcium 7.1 L (8.4-10.2) mg/dL Calcium panel 05/29/19 Range/Units 07:00 Calcium 7.1 L (8.4-10.2) mg/dL Pituitary panel 05/29/19 Range/Units 07:00 Sodium 135 L (137-145) mmol/L Potassium 3.6 (3.5-5.1) mmol/L Chloride 105 (98-107) mmol/L Carbon Dioxide 24 (22-30) mmol/L BUN 12 (7-17) mg/dL Creatinine 0.36 L (0.52-1.04) mg/dL Glucose 103 H (74-99) mg/dL Calcium 7.1 L (8.4-10.2) mg/dL Adrenal panel 05/29/19 Range/Units 07:00 Sodium 135 L (137-145) mmol/L Potassium 3.6 (3.5-5.1) mmol/L Chloride 105 (98-107) mmol/L Carbon Dioxide 24 (22-30) mmol/L BUN 12 (7-17) mg/dL Creatinine 0.36 L (0.52-1.04) mg/dL Glucose 103 H (74-99) mg/dL Calcium 7.1 L (8.4-10.2) mg/dL - Imaging CT scan - abdomen: report reviewed, image reviewed Assessment and Plan (1) Gross hematuria Current Visit: Yes Status: Acute Code(s): R31.0 - GROSS HEMATURIA SNOMED Code(s): 243937281 Plan: I reviewed the patient's computed tomography scan. The right kidney is significantly larger than the left, and heterogenous in appearance. This likely represents pyelonephritis due to bacteremic seeding. She has been treated with aztreonam throughout this hospitalization, but for reasons unclear to me this was discontinued earlier today. I would strongly suggest that she be placed back on anti-pseudomonal antibiotic therapy, and Dr. Zavala will be contacted for his input regarding this matter. Time with Patient: Greater than 30
[2019-05-30] MEDS: HYDROmorphone 0.5 MG/0.5 ML SYRINGE IVP PRN ×5 (01:30→23:19)
[2019-05-30] MEDS: AZTREONAM 2 GM in SODIUM CHLORIDE 0.9% 100 ML IVPB SCH ×4 (01:34→21:48)
[2019-05-30] MEDS: metroNIDAZOLE-NS PMX 500 MG in SALINE 1 100ML.BAG IVPB SCH ×4 (02:43→23:15)
[2019-05-30] MEDS: SODIUM CHLORIDE 0.9% 500 ML 500 ML IV SCH (05:42)
[2019-05-30 06:57] LABS: Glucose,Whole Blood 109 mg/dL (75-99)
[2019-05-30] MEDS: INSULIN ASPART (NovoLOG) 100 UNIT/ML VIAL SQ SCH ×4 (07:27→20:18)
[2019-05-30] MEDS: PANTOPRAZOLE 40 MG TABLET PO SCH ×2 (08:20→17:22)
[2019-05-30] MEDS: ONDANSETRON 4 MG/2 ML VIAL IVP PRN (08:22)
[2019-05-30 10:36] LABS: Basophils % (A) 0 %; Eosinophils % (A) 2 %; Lymphocytes # (A) 0.9 k/uL (1.0-4.8); Lymphocytes % (A) 88 %; MCH 30.5 pg (25.0-35.0); MCHC 34.6 g/dL (31.0-37.0); MCV 88.3 fL (80.0-100.0); Mean Platelet Volume 7.6; Monocytes % (A) 1 %; Neutrophils % (A) 8 %; RBC 1.94 m/uL (3.80-5.40); RDW 13.9 % (11.5-15.5)
[2019-05-30 10:43] LABS: Platelet Count 18 k/uL (150-450)
[2019-05-30 10:44] LABS: African American GFR (CKD) >90 (>60 ml/min/1.73 sqM); Anion Gap 7 mmol/L; Blood Urea Nitrogen 18 mg/dL (7-17); Carbon Dioxide 25 mmol/L (22-30); Chloride 105 mmol/L (98-107); Glucose 97 mg/dL (74-99); Neutrophils # (A) 0.1 k/uL (1.3-7.7); Potassium 3.7 mmol/L (3.5-5.1); Sodium 137 mmol/L (137-145)
[2019-05-30 10:46] LABS: HGB 5.9 gm/dL (11.4-16.0)
[2019-05-30 10:47] LABS: HCT 17.1 % (34.0-46.0)
[2019-05-30] MEDS: POLYETHYLENE GLYCOL 3350 17 GM POWD.PACK PO SCH (10:55)
[2019-05-30] MEDS: MAG HYDROX/AL HYDROX/SIMETH 30 ML, LIDOCAINE VISCOUS 30 ML, diphenhydrAMINE ELIXIR 75 M... PO PRN ×4 (10:57)
[2019-05-30] MEDS: valACYclovir HCL 1,000 MG TABLET PO SCH ×2 (10:58→20:14)
[2019-05-30] MEDS: ALLOPURINOL 300 MG TAB PO SCH (11:00)
[2019-05-30] MEDS: SENNOSIDES-DOCUSATE SODIUM 1 EACH TAB PO SCH ×2 (11:01→20:15)
[2019-05-30] MEDS: FILGRASTIM-SNDZ 480 MCG/0.8 ML SYRINGE SQ SCH (11:02)
--- NOTE | 2019-05-30 11:05 | P.PN ---
Progress Note - Text Progress Note Date: 05/30/19 the patient is seen on rounds. She feels better today. Pain is controlled. No nausea or vomiting. Does not have much of an appetite. abdomen soft, good bowel sounds Assessment: Abdominal pain, due to pyelonephritis. No signs of typhlitis on CT. Plan: The patient is nonsurgical. Will follow-up as needed.
[2019-05-30 11:25] LABS: Glucose,Whole Blood 99 mg/dL (75-99)
[2019-05-30 11:34] LABS: Anisocytosis (M) Present; Poikilocytosis (M) Present
--- NOTE | 2019-05-30 12:39 | P.PN ---
Subjective this Is a 73-year-old female with a known history of hypertension, hyperlipidemia and CLL and history of breast cancer in 2014 status post chemoradiation and surgery who is currently being treated for CLL with imatinab and is on follow-up with Dr. Oliva as an outpatient was sent to Hospital due to thrombocytopenia. Next a 2 been discharged from the hospital she got platelet and blood transfusion at hematology office, however patient was developing diarrhea about 3 times per day with no significant abdominal pain for about one week, associated with generalized weakness and malaise and dry cough for 3 days with no significant dyspnea or chest pain. Patient went for her hematology office follow-up today and her blood work showed slow platelet count and patient was sent to the hospital. Also on the hospital patient was put back on oxygen, she was discharged on room air last time. Patient was recently discharged from hospital 4 days ago for acute lung injury and possible pneumonia, related to multiple blood/platelet transfusion and was treated in the ICU, after stabilization she was discharged. Also at that time patient has pancytopenia, and the discharge age her white cell count was 11.7 K, hemoglobin 8.1 and platelet 18 K. This time hematology oncology team send the patient to emergency room for pancytopenia with WBC 3.0K, hemoglobin 6.6 and platelet 2K. INR is 1.0, potassium of 3.1, creatinine 0.9, and lactic acid is elevated at 2.3. On admission patient has been afebrile, Restoril Vitas looks stable, she was saturating 87-88% on room air, saturation went up to 96 and 3 L. Chest x-ray: Showing cardiomegaly with bilateral multifocal infiltrates. Patient is getting IV fluids at 100 L/h, also she supposed to get platelets and blood transfusion today, discussed with staff. Also patient was started on vancomycin and cefepime. 05/20/2019 Patient yesterday was hypotensive and tachypneic and she was saturating 93-97% on 3 L oxygen, staff concerned that her more fluid can compromise her resp function so patient was transferred to the intensive care unit, as per staff pt can not go to select unit. today is more awake and, however she is tachypneic with respiratory rate 22-25, blood pressure is improved to 114/70, she saturating 93-94% and is related to her, she had fever of 103.3 yesterday. Labs from today showing slight improvement in his WBC at 1.6K, hemoglobin improved to 6.7, platelets 3K. Sodium 136, creatinine normal at 0.7, sugar control. Patient remains in the ICU with on antibiotics in the form of vancomycin and cefepime is provided to the patient. Chest x-ray showing diffuse bilateral infiltrate with left pleural effusion, pneumonia versus pulmonary edema. 05/21/2019 pt is in the ICU, she is doing better , however she is still tachypenic, no chest pain or coughing , her blood culture is growing pseudomonas which is mostly related to her current sepsis , ID team already stopped vancomycin and increased the dose of cefepime, her cxr shows stable findings , source could be from port althought she has evidence of diverticulitis as well but her pain is not major in her belly , pt is still generally weak , pt is constipated rather than diarrhea, her pancytopenia is worse , no fever today , pt vitals remain stable. iv fluids were stopped . pt is felt stable to go to medical floor from yesterday however critical care team recommended to keep monitoring pt in icu for now 05/22/2019 pt is transferred to the general medical floor today , he breathing looks better , coughing and weakness are improving as well, no more abd pain and her LLQ tenderness improved as well. she is hemodynamically stable , labs shwoing improving leukocytes up to 1.2 , hb stable at 7.5 , platelet improved to 12k, pt has low grade fever yesterday night at 99.9, bp stable, pt developed rash on the trunk and mainly back and thought it is due to cefepime which is switched to aztreonam as per ID team. Patient has been taking care of by Dr. Cheung over the weekend and on a Sunday. 05/26/2019 Patient is seen in the general medical floor, she looks better, breathing more quiet with less respiratory distress. No chest pain. Occasional coughing. She remains on is aztreonam and Valacyclovir. Infectious disease R following the case closely. Her WBC is stable at 1.7, hemoglobin 7.5 and platelet 19. Discussed the case with oncology team. Patient could not work with PT/OT today and the proper way, whoever evaluated tomorrow We'll double check with infectious disease and oncology team about the discharge planning Discharge planning in 24-48 hours 05/27/2019 Patient clinically doing well, with her breathing is a stable. No chest pain. No dyspnea. Occasional coughing. Pancytopenia is worsened today with WBC down to 1.3, hemoglobin 6.9, platelets 8K, patient is getting been transfused blood and platelets. ID team recommended to continue with antibiotics aztreonam for 1 more week for her Pseudomonas infection. 05/28/2019 pt is still not cleared by oncology team , she is clinically the same or gradually improving , no new complaint , pt platelet are low again at 9k, and oncology team are planing for platelet transfusino , tomorrow she will get another dose of rituxan , will need 2 wks of aztreonam per ID 05/29/2019 Patient is awake with no chest pain or dyspnea. She has some abdominal discomfort. Vitals stable however she still have severe pancytopenia with WBC at 1.4, hemoglobin 7.5 and platelets 8, and absolute neutrophil is 0.1. rest of labs looked unremarkable. Patient is scheduled to get rituxan today or tomorrow by the hematology/oncology team. Patient might benefit from ECF upon discharge, discussed with social security specialist, however patient did not want to discuss it with the instability today 05/30/2019 Patient is awake with no chest pain or dyspnea. Her cough is minimal. Hemodynamically she is a stable However yesterday she developed right lower abdominal and right flank pain with tenderness associated with hematuria. Surgical team is been consulted and CAT scan of the abdomen was done followed by ultrasound showing larger right kidney which is suspicious for pyelonephritis, less likely renal infarct for which urologist evaluated the patient. Patient most likely she has seeding bacteria from her infection into her right kidney. Patient currently remains on antibiotics by infectious disease recommendation. Patient currently denies aztreonam. Patient urinalysis is showing moderate hematuria with RBC is more than 182, but not suspicious for infection. Pain management is provided with Dilaudid. Other labs showing severe pancytopenia with WBC 1.0, hemoglobin 5.9, platelets count 18 K. Review of systems CONSTITUTIONAL: No fever HEENT: No recent visual problems or hearing problems. Denied any sore throat. CARDIOVASCULAR: No orthopnea, PND, no palpitations, no syncope. PULMONARY: no hemoptysis. GASTROINTESTINAL: [ Normoactive bowel sounds. NEUROLOGICAL: No headaches, no weakness, no numbness. HEMATOLOGICAL: Denies any bleeding or petechiae. GENITOURINARY: Denies any burning micturition, frequency, or urgency. Patient has Espinoza catheter is in a Place. MUSCULOSKELETAL/RHEUMATOLOGICAL: Denies any joint pain, swelling, or any muscle pain. ENDOCRINE: Denies any polyuria or polydipsia. Active Medications Generic Name Dose Route Start Last Admin Trade Name Freq PRN Reason Stop Dose Admin Acetaminophen 1,000 mg 05/30/19 16:00 Tylenol Tab PO 05/30/19 16:01 ONCE@1600 ONE Allopurinol 300 mg 05/20/19 09:00 05/30/19 11:00 Zyloprim PO 300 mg DAILY [facility]E Administration Atorvastatin Calcium 40 mg 05/19/19 21:00 05/29/19 21:39 Lipitor PO 40 mg HS VALENTE Administration Calcium Carbonate/Glycine 500 mg 05/24/19 11:11 05/29/19 09:17 Tums PO 500 mg QID PRN Administration Heartburn Al Hydroxide/Mg Hydroxide 30 0 ml 05/20/19 09:44 05/30/19 10:57 ml/ Lidocaine HCl 30 ml/ PO 5 ml Diphenhydramine HCl 75 mg/ QID PRN Administration Acetaminophen 960 mg Cold Sores Diphenhydramine HCl 50 mg 05/30/19 16:00 Benadryl IVP 05/30/19 16:01 ONCE@1600 ONE Famotidine 20 mg 05/30/19 16:00 Pepcid IVP 05/30/19 16:01 ONCE@1600 ONE Filgrastim 480 mcg 05/19/19 12:15 05/30/19 11:02 Zarxio SQ 480 mcg DAILY VAL[facility]E Administration Guaifenesin 200 mg 05/19/19 12:31 05/28/19 16:01 Robitussin PO 200 mg Q6H PRN Administration Cough Hydromorphone HCl 0.5 mg 05/29/19 18:32 05/30/19 08:20 Dilaudid IVP 0.5 mg Q4HR PRN Administration Pain Sodium Chloride 500 mls @ 20 mls/hr 05/21/19 05:00 05/30/19 05:42 Saline 0.9% IV Not Given .Q24H VAL[facility]E Metronidazole 500 mg/ IV 100 mls @ 100 mls/hr 05/29/19 10:30 05/30/19 09:31 Solution IVPB 100 mls/hr Q8HR VAL[facility]E Administration Rituximab 700 mg/ Sodium 570 mls @ 0 mls/hr 05/30/19 16:00 Chloride IV 05/30/19 16:01 .Q0M ONE Protocol Titrate Aztreonam 2 gm/ Sodium 100 mls @ 100 mls/hr 05/29/19 22:23 05/30/19 07:34 Chloride IVPB 100 mls/hr Q8H [facility]E Administration Protocol Insulin Aspart 0 unit 05/20/19 07:30 05/30/19 11:34 Novolog SQ Not Given ACHS VAL[facility]E Protocol Magnesium Hydroxide 2,400 mg 05/26/19 11:28 05/26/19 12:01 Milk Of Magnesia PO 2,400 mg ONCE PRN Administration Constipation Methylprednisolone Sodium Succinate 125 mg 05/30/19 16:00 Solu-Medrol IVP 05/30/19 16:01 ONCE@1600 ONE Miscellaneous Information 1 each 05/19/19 10:22 Pneumonia Protocol Utilized PO ONCE PRN Per Protocol Miscellaneous Information 1 each 05/19/19 14:58 Potassium Per Protocol MISCELLANE DAILY PRN Per Protocol Protocol Naloxone HCl 0.2 mg 05/19/19 23:24 Narcan IV Q2M PRN Opioid Reversal Ondansetron HCl 4 mg 05/29/19 08:27 05/30/19 08:22 Zofran IVP 4 mg Q4HR PRN Administration Nausea And Vomiting Pantoprazole Sodium 40 mg 05/19/19 17:30 05/30/19 08:20 Protonix PO 40 mg AC-BID [facility]E Administration Polyethylene Glycol 17 gm 05/24/19 09:00 05/30/19 10:55 Miralax PO Not Given DAILY [facility]E Senna/Docusate Sodium 2 each 05/26/19 21:00 05/30/19 11:01 Senokot-S PO 2 each BID VAL[facility]E Administration Tramadol HCl 50 mg 05/19/19 12:31 05/29/19 12:57 Ultram PO 50 mg QID PRN Administration Pain Valacyclovir HCl 1,000 mg 05/19/19 21:00 05/30/19 10:58 Valtrex PO 1,000 mg BID VAL[facility]E Administration Objective - Vital Signs Vital signs: Vital Signs Temp 98.2 F 05/30/19 11:56 Pulse 81 05/30/19 11:56 Resp 19 05/30/19 11:56 BP 156/75 05/30/19 11:56 Pulse Ox 93 L 05/30/19 11:56 Intake & Output 05/29/19 05/30/19 05/30/19 18:59 06:59 18:59 Intake Total 200 847 Output Total 400 1400 Balance 200 447 -1400 Weight 94.539 kg Intake: Intake, IV Titration 200 240 Amount Aztreonam 2 gm In Sodium 100 Chloride 0.9% 100 ml @ 100 mls/hr IVPB Q8H [facility] Rx#:[id number] Aztreonam 2 gm In Sodium 100 Chloride 0.9% 100 ml @ 100 mls/hr IVPB Q8H [facility] Rx#:[id number] Sodium Chloride 0.9% 500 40 ml 500 ml @ 20 mls/hr IV .Q24H [facility] Rx#:[id number] metroNIDAZOLE-NS PMX 500 100 100 mg In Saline 1 100ml.bag @ 100 mls/hr IVPB Q8HR [facility] Rx#:[id number] Blood Product 607 Platelet Irr Pheresis 607 Acda Unit [id number] Output: Urine 400 1400 Uretheral (Espinoza) 400 Other: Voiding Method Indwelling Catheter Indwelling Catheter Indwelling Catheter - Exam -GENERAL: The patient is alert and oriented x3, not in any acute distress. Pale and weak HEENT: Pupils are round and equally reacting to light. EOMI. No scleral icterus. No conjunctival pallor. Normocephalic, atraumatic. No pharyngeal erythema. No thyromegaly. CARDIOVASCULAR: S1 and S2 present. No murmurs, rubs, or gallops. PULMONARY: Chest is clear to auscultation, no wheezing or crackles. -ABDOMEN: Soft,nondistended, normoactive bowel sounds. No palpable organomegaly. Right flank and lower quadrant tenderness with no rebound tenderness MUSCULOSKELETAL: No joint swelling or deformity. EXTREMITIES: No cyanosis, clubbing, or pedal edema. NEUROLOGICAL: Gross neurological examination did not reveal any focal deficits. SKIN: No rashes. - Labs CBC & Chem 7: 05/30/19 09:57 05/30/19 09:57 Labs: Abnormal Lab Results - Last 24 Hours (Table) 05/29/19 05/29/19 05/29/19 Range/Units 15:20 16:59 20:55 WBC (3.8-10.6) k/uL RBC (3.80-5.40) m/uL Hgb (11.4-16.0) gm/dL Hct (34.0-46.0) % Plt Count (150-450) k/uL Neutrophils # (1.3-7.7) k/uL Lymphocytes # (1.0-4.8) k/uL BUN (7-17) mg/dL POC Glucose (mg/dL) 128 H 128 H (75-99) mg/dL Calcium (8.4-10.2) mg/dL Urine Protein 1+ H (Negative) Urine Blood Moderate H (Negative) Urine RBC >182 H (0-5) /hpf Urine Bacteria Rare H (None) /hpf Urine Mucus Rare H (None) /hpf Crossmatch 05/30/19 05/30/19 05/30/19 Range/Units 06:55 09:57 09:57 WBC 1.0 L* (3.8-10.6) k/uL RBC 1.94 L (3.80-5.40) m/uL Hgb 5.9 L* D (11.4-16.0) gm/dL Hct 17.1 L* (34.0-46.0) % Plt Count 18 L* D (150-450) k/uL Neutrophils # 0.1 L* (1.3-7.7) k/uL Lymphocytes # 0.9 L (1.0-4.8) k/uL BUN 18 H (7-17) mg/dL POC Glucose (mg/dL) 109 H (75-99) mg/dL Calcium 7.0 L (8.4-10.2) mg/dL Urine Protein (Negative) Urine Blood (Negative) Urine RBC (0-5) /hpf Urine Bacteria (None) /hpf Urine Mucus (None) /hpf Crossmatch 05/30/19 Range/Units 09:57 WBC (3.8-10.6) k/uL RBC (3.80-5.40) m/uL Hgb (11.4-16.0) gm/dL Hct (34.0-46.0) % Plt Count (150-450) k/uL Neutrophils # (1.3-7.7) k/uL Lymphocytes # (1.0-4.8) k/uL BUN (7-17) mg/dL POC Glucose (mg/dL) (75-99) mg/dL Calcium (8.4-10.2) mg/dL Urine Protein (Negative) Urine Blood (Negative) Urine RBC (0-5) /hpf Urine Bacteria (None) /hpf Urine Mucus (None) /hpf Crossmatch See Detail Assessment and Plan Assessment: Pancytopenia Right kidney pyelonephritis, renal infarct is less likely. With hematuria sepsis secondary to speudomonas , mostly secondary to pneumonia. Improving sigmoid diverticulitis , resolved chronic stable pulmonary infiltrates Elevated lactic acid. Resolved Dehydration and generalized weakness Acute hypoxemic respiratory failure CLL With leukocytosis. on Therapy Recent history of acute lung injury, related to multiple blood/platelet transfusion, with possible pneumonia History of breast cancer in 2014 status post chemo/radiation and surgery. Currently on anastrozole Hypertension Hyperlipidemia Osteoarthritis Previous history of smoking DVT prophylaxis with SCDs Plan: This is a pleasant 73 years old female who presents with pancytopenia and review of her CLL or therapy, also she has multiple lung infiltrates. And recently right-sided pyelonephritis. Continue with IV antibiotics per recommendations from infectious disease team I discussed the case with oncology team, possible discharge in the coming few days however patient would benefit from subacute rehab, we'll ask for PT OT evaluation follow-up.abs and medication were reviewed.. Continue same treatment. Continue with symptomatic treatment. Resume home medication. Monitor lytes and vitals. DVT and GI prophylaxis. Further recommendations of the clinical course of the patient DVT prophylaxis: No anticoagulation in the view of low platelets GI Prophylaxis: Pepcid PT/OT: Pending Prognosis is guarded
--- NOTE | 2019-05-30 14:26 | PN ---
PROGRESS NOTE DATE OF SERVICE: 05/30/2019 REASON FOR FOLLOWUP: 1. Pseudomonas aeruginosa bacteremia. 2. Right-sided pyelonephritis. INTERVAL HISTORY: The patient is currently afebrile. The patient has been breathing comfortably. Denies having any chest pain. The patient's abdominal pain is currently controlled with pain medication. No nausea, vomiting, or any worsening diarrhea. The patient did have a Espinoza catheter, has no urinary symptoms. PHYSICAL EXAMINATION: On examination, blood pressure 153/77 with a pulse of 76, temperature 98.6. She is 95% on room air. General description is an elderly female lying in bed in no distress. RESPIRATORY SYSTEM: Unlabored breathing, clear to auscultation anteriorly. HEART: S1, S2. Regular rate and rhythm. ABDOMEN: Soft, not as tender as she was yesterday. No guarding or rigidity. LABS: Hemoglobin is 5.9, white count 1.0, platelet count is 18. BUN of 18, creatinine 0.68. UA obtained yesterday is not significantly positive. The cultures are pending. DIAGNOSTIC IMPRESSION AND PLAN: Patient with Pseudomonas aeruginosa bacteremia with concern for pneumonia in this is now with evidence of right-sided pyelonephritis. UA has been obtained and will wait for the culture to finalize. The patient's CT was discussed with the reading radiologist Dr. Ballard who mentioned there was no evidence of any typhilitis. Patient to continue with Azactam 2 grams q.8 hours while waiting for the urine culture to finalized. Continue with supportive care. MMODL / IJN: [id number] /
[2019-05-30] MEDS ORDERED: riTUXimab 700 MG in SODIUM CHLORIDE 0.9% 500 ML 500 ML IV ONE (16:00)
[2019-05-30] MEDS ORDERED: diphenhydrAMINE 50 MG/ML 1 ML VIAL IVP ONE (16:00)
[2019-05-30] MEDS ORDERED: ACETAMINOPHEN TAB 500 MG TAB PO ONE (16:00)
[2019-05-30] MEDS ORDERED: FAMOTIDINE 20 MG/2 ML VIAL IVP ONE (16:00)
[2019-05-30] MEDS ORDERED: methylPREDNISolone SOD SUCCI 125 MG/2 ML VIAL IVP ONE (16:00)
[2019-05-30 17:17] LABS: Glucose,Whole Blood 110 mg/dL (75-99)
[2019-05-30] MEDS: ATORVASTATIN 40 MG TAB PO SCH (20:14)
[2019-05-30 20:18] LABS: Glucose,Whole Blood 155 mg/dL (75-99)
[2019-05-30] MEDS ORDERED: AZTREONAM 2 GM in SODIUM CHLORIDE 0.9% 100 ML IVPB SCH (22:22)
[2019-05-31] MEDS: HYDROmorphone 0.5 MG/0.5 ML SYRINGE IVP PRN ×5 (04:07→20:49)
[2019-05-31] MEDS: AZTREONAM 2 GM in SODIUM CHLORIDE 0.9% 100 ML IVPB SCH ×3 (04:59→21:49)
[2019-05-31 07:33] LABS: Glucose,Whole Blood 115 mg/dL (75-99)
[2019-05-31] MEDS: INSULIN ASPART (NovoLOG) 100 UNIT/ML VIAL SQ SCH ×4 (08:20→19:56)
[2019-05-31 09:26] LABS: African American GFR (CKD) >90 (>60 ml/min/1.73 sqM); Anion Gap 7 mmol/L; Blood Urea Nitrogen 19 mg/dL (7-17); Calcium 6.7 mg/dL (8.4-10.2); Carbon Dioxide 23 mmol/L (22-30); Chloride 105 mmol/L (98-107); Glucose 105 mg/dL (74-99); Potassium 3.3 mmol/L (3.5-5.1); Sodium 135 mmol/L (137-145)
[2019-05-31] MEDS: SENNOSIDES-DOCUSATE SODIUM 1 EACH TAB PO SCH ×2 (09:32→20:05)
[2019-05-31] MEDS: ALLOPURINOL 300 MG TAB PO SCH (09:32)
[2019-05-31] MEDS: FILGRASTIM-SNDZ 480 MCG/0.8 ML SYRINGE SQ SCH (09:32)
[2019-05-31] MEDS: metroNIDAZOLE-NS PMX 500 MG in SALINE 1 100ML.BAG IVPB SCH ×3 (09:32→23:47)
[2019-05-31] MEDS: PANTOPRAZOLE 40 MG TABLET PO SCH ×2 (09:32→17:30)
[2019-05-31 09:33] LABS: MCH 30.8 pg (25.0-35.0); MCHC 35.2 g/dL (31.0-37.0); MCV 87.5 fL (80.0-100.0); Mean Platelet Volume 7.4; RBC 2.11 m/uL (3.80-5.40); RDW 14.5 % (11.5-15.5); WBC 1.6 k/uL (3.8-10.6)
[2019-05-31] MEDS: valACYclovir HCL 1,000 MG TABLET PO SCH ×2 (09:33→20:06)
[2019-05-31] MEDS: POLYETHYLENE GLYCOL 3350 17 GM POWD.PACK PO SCH (09:33)
[2019-05-31 10:07] LABS: HGB 6.5 gm/dL (11.4-16.0)
[2019-05-31 10:08] LABS: HCT 18.5 % (34.0-46.0)
[2019-05-31] MEDS ORDERED: POTASSIUM CHLORIDE 20 MEQ in WATER FOR INJECTION 1 100ML.BAG IVPB SCH (10:30)
[2019-05-31 11:15] LABS: Glucose,Whole Blood 134 mg/dL (75-99)
--- NOTE | 2019-05-31 11:23 | P.PN ---
Subjective Progress Note Date: 05/31/19 The patient is in the hospital with a pyelonephritis. She was placed back on her anti-pseudomonas aztreonem. She is stable. Objective - Vital Signs Vital signs: Vital Signs Temp 99.2 F 05/31/19 07:50 Pulse 78 05/31/19 07:50 Resp 18 05/31/19 07:50 BP 169/74 05/31/19 07:50 Pulse Ox 92 L 05/31/19 07:50 Intake & Output 05/30/19 05/31/19 05/31/19 18:59 06:59 18:59 Intake Total 510 150 Output Total 1400 2600 600 Balance -890 -1290 -600 Weight 94.539 kg 97.5 kg Intake: Intake, IV Titration 200 150 Amount Aztreonam 2 gm In Sodium 100 Chloride 0.9% 100 ml @ 100 mls/hr IVPB Q8H [facility] Rx#:[id number] Sodium Chloride 0.9% 500 150 ml 500 ml @ 20 mls/hr IV .Q24H [facility] Rx#:[id number] metroNIDAZOLE-NS PMX 500 100 mg In Saline 1 100ml.bag @ 100 mls/hr IVPB Q8HR [facility] Rx#:[id number] Blood Product 310 Rc Irr As1 Unit 310 [id number] Output: Urine 1400 2600 600 Other: Voiding Method Indwelling Catheter Indwelling Catheter Indwelling Catheter # Voids 1 - Labs CBC & Chem 7: 05/31/19 07:34 05/31/19 07:34 Labs: Abnormal Lab Results - Last 24 Hours (Table) 05/30/19 05/30/19 05/30/19 Range/Units 09:57 09:57 17:16 WBC 1.0 L* (3.8-10.6) k/uL RBC 1.94 L (3.80-5.40) m/uL Hgb 5.9 L* D (11.4-16.0) gm/dL Hct 17.1 L* (34.0-46.0) % Plt Count 18 L* D (150-450) k/uL Neutrophils # 0.1 L* (1.3-7.7) k/uL Lymphocytes # 0.9 L (1.0-4.8) k/uL Sodium (137-145) mmol/L Potassium (3.5-5.1) mmol/L BUN (7-17) mg/dL Glucose (74-99) mg/dL POC Glucose (mg/dL) 110 H (75-99) mg/dL Calcium (8.4-10.2) mg/dL Crossmatch See Detail 05/30/19 05/31/19 05/31/19 Range/Units 20:17 07:31 07:34 WBC 1.6 L (3.8-10.6) k/uL RBC 2.11 L (3.80-5.40) m/uL Hgb 6.5 L* (11.4-16.0) gm/dL Hct 18.5 L* (34.0-46.0) % Plt Count (150-450) k/uL Neutrophils # (1.3-7.7) k/uL Lymphocytes # (1.0-4.8) k/uL Sodium (137-145) mmol/L Potassium (3.5-5.1) mmol/L BUN (7-17) mg/dL Glucose (74-99) mg/dL POC Glucose (mg/dL) 155 H 115 H (75-99) mg/dL Calcium (8.4-10.2) mg/dL Crossmatch 05/31/19 05/31/19 Range/Units 07:34 11:12 WBC (3.8-10.6) k/uL RBC (3.80-5.40) m/uL Hgb (11.4-16.0) gm/dL Hct (34.0-46.0) % Plt Count (150-450) k/uL Neutrophils # (1.3-7.7) k/uL Lymphocytes # (1.0-4.8) k/uL Sodium 135 L (137-145) mmol/L Potassium 3.3 L (3.5-5.1) mmol/L BUN 19 H (7-17) mg/dL Glucose 105 H (74-99) mg/dL POC Glucose (mg/dL) 134 H (75-99) mg/dL Calcium 6.7 L (8.4-10.2) mg/dL Crossmatch
--- NOTE | 2019-05-31 13:05 | P.PN ---
Subjective this Is a 73-year-old female with a known history of hypertension, hyperlipidemia and CLL and history of breast cancer in 2014 status post chemoradiation and surgery who is currently being treated for CLL with imatinab and is on follow-up with Dr. Oliva as an outpatient was sent to Hospital due to thrombocytopenia. Next a 2 been discharged from the hospital she got platelet and blood transfusion at hematology office, however patient was developing diarrhea about 3 times per day with no significant abdominal pain for about one week, associated with generalized weakness and malaise and dry cough for 3 days with no significant dyspnea or chest pain. Patient went for her hematology office follow-up today and her blood work showed slow platelet count and patient was sent to the hospital. Also on the hospital patient was put back on oxygen, she was discharged on room air last time. Patient was recently discharged from hospital 4 days ago for acute lung injury and possible pneumonia, related to multiple blood/platelet transfusion and was treated in the ICU, after stabilization she was discharged. Also at that time patient has pancytopenia, and the discharge age her white cell count was 11.7 K, hemoglobin 8.1 and platelet 18 K. This time hematology oncology team send the patient to emergency room for pancytopenia with WBC 3.0K, hemoglobin 6.6 and platelet 2K. INR is 1.0, potassium of 3.1, creatinine 0.9, and lactic acid is elevated at 2.3. On admission patient has been afebrile, Restoril Vitas looks stable, she was saturating 87-88% on room air, saturation went up to 96 and 3 L. Chest x-ray: Showing cardiomegaly with bilateral multifocal infiltrates. Patient is getting IV fluids at 100 L/h, also she supposed to get platelets and blood transfusion today, discussed with staff. Also patient was started on vancomycin and cefepime. 05/20/2019 Patient yesterday was hypotensive and tachypneic and she was saturating 93-97% on 3 L oxygen, staff concerned that her more fluid can compromise her resp function so patient was transferred to the intensive care unit, as per staff pt can not go to select unit. today is more awake and, however she is tachypneic with respiratory rate 22-25, blood pressure is improved to 114/70, she saturating 93-94% and is related to her, she had fever of 103.3 yesterday. Labs from today showing slight improvement in his WBC at 1.6K, hemoglobin improved to 6.7, platelets 3K. Sodium 136, creatinine normal at 0.7, sugar control. Patient remains in the ICU with on antibiotics in the form of vancomycin and cefepime is provided to the patient. Chest x-ray showing diffuse bilateral infiltrate with left pleural effusion, pneumonia versus pulmonary edema. 05/21/2019 pt is in the ICU, she is doing better , however she is still tachypenic, no chest pain or coughing , her blood culture is growing pseudomonas which is mostly related to her current sepsis , ID team already stopped vancomycin and increased the dose of cefepime, her cxr shows stable findings , source could be from port althought she has evidence of diverticulitis as well but her pain is not major in her belly , pt is still generally weak , pt is constipated rather than diarrhea, her pancytopenia is worse , no fever today , pt vitals remain stable. iv fluids were stopped . pt is felt stable to go to medical floor from yesterday however critical care team recommended to keep monitoring pt in icu for now 05/22/2019 pt is transferred to the general medical floor today , he breathing looks better , coughing and weakness are improving as well, no more abd pain and her LLQ tenderness improved as well. she is hemodynamically stable , labs shwoing improving leukocytes up to 1.2 , hb stable at 7.5 , platelet improved to 12k, pt has low grade fever yesterday night at 99.9, bp stable, pt developed rash on the trunk and mainly back and thought it is due to cefepime which is switched to aztreonam as per ID team. Patient has been taking care of by Dr. Cheung over the weekend and on a Sunday. 05/26/2019 Patient is seen in the general medical floor, she looks better, breathing more quiet with less respiratory distress. No chest pain. Occasional coughing. She remains on is aztreonam and Valacyclovir. Infectious disease R following the case closely. Her WBC is stable at 1.7, hemoglobin 7.5 and platelet 19. Discussed the case with oncology team. Patient could not work with PT/OT today and the proper way, whoever evaluated tomorrow We'll double check with infectious disease and oncology team about the discharge planning Discharge planning in 24-48 hours 05/27/2019 Patient clinically doing well, with her breathing is a stable. No chest pain. No dyspnea. Occasional coughing. Pancytopenia is worsened today with WBC down to 1.3, hemoglobin 6.9, platelets 8K, patient is getting been transfused blood and platelets. ID team recommended to continue with antibiotics aztreonam for 1 more week for her Pseudomonas infection. 05/28/2019 pt is still not cleared by oncology team , she is clinically the same or gradually improving , no new complaint , pt platelet are low again at 9k, and oncology team are planing for platelet transfusino , tomorrow she will get another dose of rituxan , will need 2 wks of aztreonam per ID 05/29/2019 Patient is awake with no chest pain or dyspnea. She has some abdominal discomfort. Vitals stable however she still have severe pancytopenia with WBC at 1.4, hemoglobin 7.5 and platelets 8, and absolute neutrophil is 0.1. rest of labs looked unremarkable. Patient is scheduled to get rituxan today or tomorrow by the hematology/oncology team. Patient might benefit from ECF upon discharge, discussed with manager social services, however patient did not want to discuss it with the instability today 05/30/2019 Patient is awake with no chest pain or dyspnea. Her cough is minimal. Hemodynamically she is a stable However yesterday she developed right lower abdominal and right flank pain with tenderness associated with hematuria. Surgical team is been consulted and CAT scan of the abdomen was done followed by ultrasound showing larger right kidney which is suspicious for pyelonephritis, less likely renal infarct for which urologist evaluated the patient. Patient most likely she has seeding bacteria from her infection into her right kidney. Patient currently remains on antibiotics by infectious disease recommendation. Patient currently denies aztreonam. Patient urinalysis is showing moderate hematuria with RBC is more than 182, but not suspicious for infection. Pain management is provided with Dilaudid. Other labs showing severe pancytopenia with WBC 1.0, hemoglobin 5.9, platelets count 18 K. 05/31/2019 Patient is awake with no chest pain or dyspnea. Cough is better. She still have same right sided abdominal pain. No dysuria. She has low-grade temperature today. As a Vitas looks within normal limits. Patient getting blood and platelet transfusion today for thrombocytopenia and anemia. Her WBCs today is 1.6, hemoglobin 6.5 and platelets were 18 K yesterday, not repeated platelets today. Potassium is 3.3 which is been replaced and creatinine 0.5, sugar is controlled. Patient rituxan is healthy now, possible total Sunday. Objective - Vital Signs Vital signs: Vital Signs Temp 98.1 F 05/31/19 12:40 Pulse 77 05/31/19 12:33 Resp 16 05/31/19 12:33 BP 153/82 05/31/19 12:33 Pulse Ox 91 L 05/31/19 12:33 Intake & Output 05/30/19 05/31/19 05/31/19 18:59 06:59 18:59 Intake Total 510 150 0 Output Total 1400 2600 600 Balance -890 -2450 -600 Weight 94.539 kg 97.5 kg Intake: Intake, IV Titration 200 150 Amount Aztreonam 2 gm In Sodium 100 Chloride 0.9% 100 ml @ 100 mls/hr IVPB Q8H [facility] Rx#:[id number] Sodium Chloride 0.9% 500 150 ml 500 ml @ 20 mls/hr IV .Q24H [facility] Rx#:[id number] metroNIDAZOLE-NS PMX 500 100 mg In Saline 1 100ml.bag @ 100 mls/hr IVPB Q8HR [facility] Rx#:[id number] Blood Product 310 0 Platelet Irr Pheresis 2 0 Acda Unit [id number] Rc Irr As1 Unit 310 [id number] Output: Urine 1400 2600 600 Other: Voiding Method Indwelling Catheter Indwelling Catheter Indwelling Catheter # Voids 1 - Exam -GENERAL: The patient is alert and oriented x3, not in any acute distress. Pale and weak HEENT: Pupils are round and equally reacting to light. EOMI. No scleral icterus. No conjunctival pallor. Normocephalic, atraumatic. No pharyngeal erythema. No thyromegaly. CARDIOVASCULAR: S1 and S2 present. No murmurs, rubs, or gallops. PULMONARY: Chest is clear to auscultation, no wheezing or crackles. -ABDOMEN: Soft,nondistended, normoactive bowel sounds. No palpable organomegaly. Right flank and lower quadrant tenderness with no rebound tenderness MUSCULOSKELETAL: No joint swelling or deformity. EXTREMITIES: No cyanosis, clubbing, or pedal edema. NEUROLOGICAL: Gross neurological examination did not reveal any focal deficits. SKIN: No rashes. - Labs CBC & Chem 7: 05/31/19 07:34 05/31/19 07:34 Labs: Abnormal Lab Results - Last 24 Hours (Table) 05/30/19 05/30/19 05/30/19 Range/Units 09:57 17:16 20:17 WBC (3.8-10.6) k/uL RBC (3.80-5.40) m/uL Hgb (11.4-16.0) gm/dL Hct (34.0-46.0) % Sodium (137-145) mmol/L Potassium (3.5-5.1) mmol/L BUN (7-17) mg/dL Glucose (74-99) mg/dL POC Glucose (mg/dL) 110 H 155 H (75-99) mg/dL Calcium (8.4-10.2) mg/dL Crossmatch See Detail 05/31/19 05/31/19 05/31/19 Range/Units 07:31 07:34 07:34 WBC 1.6 L (3.8-10.6) k/uL RBC 2.11 L (3.80-5.40) m/uL Hgb 6.5 L* (11.4-16.0) gm/dL Hct 18.5 L* (34.0-46.0) % Sodium 135 L (137-145) mmol/L Potassium 3.3 L (3.5-5.1) mmol/L BUN 19 H (7-17) mg/dL Glucose 105 H (74-99) mg/dL POC Glucose (mg/dL) 115 H (75-99) mg/dL Calcium 6.7 L (8.4-10.2) mg/dL Crossmatch 05/31/19 Range/Units 11:12 WBC (3.8-10.6) k/uL RBC (3.80-5.40) m/uL Hgb (11.4-16.0) gm/dL Hct (34.0-46.0) % Sodium (137-145) mmol/L Potassium (3.5-5.1) mmol/L BUN (7-17) mg/dL Glucose (74-99) mg/dL POC Glucose (mg/dL) 134 H (75-99) mg/dL Calcium (8.4-10.2) mg/dL Crossmatch Assessment and Plan Assessment: Pancytopenia Right kidney pyelonephritis, renal infarct is less likely. With hematuria sepsis secondary to speudomonas , mostly secondary to pneumonia. Improving sigmoid diverticulitis , resolved chronic stable pulmonary infiltrates Elevated lactic acid. Resolved Dehydration and generalized weakness Acute hypoxemic respiratory failure CLL With leukocytosis. on Therapy Recent history of acute lung injury, related to multiple blood/platelet transfusion, with possible pneumonia History of breast cancer in 2014 status post chemo/radiation and surgery. Currently on anastrozole Hypertension Hyperlipidemia Osteoarthritis Previous history of smoking DVT prophylaxis with SCDs Plan: This is a pleasant 73 years old female who presents with pancytopenia and review of her CLL or therapy, also she has multiple lung infiltrates. And recently right-sided pyelonephritis. Continue with IV antibiotics per recommendations from infectious disease team I discussed the case with oncology team, possible discharge in the coming few days however patient would benefit from subacute rehab, we'll ask for PT OT evaluation follow-up.abs and medication were reviewed.. Continue same treatment. Continue with symptomatic treatment. Resume home medication. Monitor lytes and vitals. DVT and GI prophylaxis. Further recommendations of the clinical course of the patient DVT prophylaxis: No anticoagulation in the view of low platelets GI Prophylaxis: Pepcid PT/OT: Pending Prognosis is guarded
[2019-05-31 14:03] LABS: Lymphocytes # (M) 1.57 k/uL (1.0-4.8); Monocytes # (M) 0.02 k/uL (0-1.0); Neutrophils % (M) 1 %; Nucleated Red Blood Cells 0 /100 WBC (0-0); Total Cells Counted 100
[2019-05-31 14:08] LABS: Platelet Count 6 k/uL (150-450)
[2019-05-31] MEDS: POTASSIUM CHLORIDE ER 20 MEQ TAB.ER PO SCH ×2 (14:10→15:32)
[2019-05-31] MEDS: SODIUM CHLORIDE 0.9% 500 ML 500 ML IV SCH (15:35)
[2019-05-31 17:19] LABS: Glucose,Whole Blood 161 mg/dL (75-99)
--- NOTE | 2019-05-31 17:59 | PN ---
PROGRESS NOTE DATE OF SERVICE: 05/31/2019. REASON FOR FOLLOWUP: Pseudomonas bacteremia and right-sided pyelonephritis. INTERVAL HISTORY: The patient is currently afebrile. The patient has been breathing comfortably. The patient has been complaining of abdominal pain which is currently controlled with pain medication. Denies any chest pain. No shortness of breath. No cough. No nausea, no vomiting. No diarrhea. PHYSICAL EXAMINATION: Blood pressure 137/79 with a pulse of 89, temperature 98.1. She is 92% on room air. General description is an elderly female, lying in bed in no distress. Respiratory system: Unlabored breathing, clear to auscultation anteriorly. Heart S1, S2. Regular rate and rhythm. ABDOMEN: Soft. Minimal tenderness. No guarding or rigidity. LABS: Hemoglobin is 6.5, white 1.6, BUN of 19, creatinine 0.95. DIAGNOSTIC IMPRESSION AND PLAN: Patient with Pseudomonas bacteremia source is possible pyelonephritis. Though urine cultures were negative initially as the UA was not significantly positive. Repeat urine was not significantly positive either. The patient currently on Azactam because of her drug rash with cefepime and monitor clinical course closely. Overall prognosis remains to be guarded. Continue supportive care. MMODL / IJN: [id number] /
[2019-05-31 19:28] LABS: Glucose,Whole Blood 123 mg/dL (75-99)
[2019-05-31] MEDS ORDERED: ACETAMINOPHEN ORAL SUSP 160 MG/5 ML CUP PO ONE (19:54)
[2019-05-31] MEDS: guaiFENesin SYRUP 100MG/5ML 200 MG/10 ML CUP PO PRN (20:01)
[2019-05-31] MEDS: ONDANSETRON 4 MG/2 ML VIAL IVP PRN (20:01)
[2019-05-31] MEDS: ATORVASTATIN 40 MG TAB PO SCH (20:06)
[2019-06-01] MEDS: HYDROmorphone 0.5 MG/0.5 ML SYRINGE IVP PRN ×5 (00:33→20:03)
[2019-06-01] MEDS: guaiFENesin SYRUP 100MG/5ML 200 MG/10 ML CUP PO PRN ×4 (04:34→20:04)
[2019-06-01] MEDS: ONDANSETRON 4 MG/2 ML VIAL IVP PRN ×2 (04:34→12:30)
[2019-06-01] MEDS: SODIUM CHLORIDE 0.9% 500 ML 500 ML IV SCH (05:27)
[2019-06-01] MEDS: AZTREONAM 2 GM in SODIUM CHLORIDE 0.9% 100 ML IVPB SCH ×3 (05:48→21:48)
[2019-06-01 07:05] LABS: Glucose,Whole Blood 113 mg/dL (75-99)
[2019-06-01 07:42] LABS: HCT 20.4 % (34.0-46.0); HGB 7.1 gm/dL (11.4-16.0); MCH 30.2 pg (25.0-35.0); MCV 86.4 fL (80.0-100.0); RBC 2.36 m/uL (3.80-5.40); RDW 14.3 % (11.5-15.5); WBC 1.7 k/uL (3.8-10.6)
[2019-06-01] MEDS: INSULIN ASPART (NovoLOG) 100 UNIT/ML VIAL SQ SCH ×4 (07:53→21:48)
[2019-06-01] MEDS: POLYETHYLENE GLYCOL 3350 17 GM POWD.PACK PO SCH (07:53)
[2019-06-01] MEDS: PANTOPRAZOLE 40 MG TABLET PO SCH ×2 (07:54→17:05)
[2019-06-01] MEDS: ALLOPURINOL 300 MG TAB PO SCH (07:54)
[2019-06-01] MEDS: FILGRASTIM-SNDZ 480 MCG/0.8 ML SYRINGE SQ SCH (07:54)
[2019-06-01] MEDS: SENNOSIDES-DOCUSATE SODIUM 1 EACH TAB PO SCH ×2 (07:54→21:48)
[2019-06-01] MEDS: valACYclovir HCL 1,000 MG TABLET PO SCH ×2 (07:55→21:48)
[2019-06-01] MEDS: metroNIDAZOLE-NS PMX 500 MG in SALINE 1 100ML.BAG IVPB SCH ×2 (07:55→17:05)
[2019-06-01 08:28] LABS: Platelet Count 15 k/uL (150-450)
[2019-06-01 08:51] LABS: African American GFR (CKD) >90 (>60 ml/min/1.73 sqM); Anion Gap 6 mmol/L; Blood Urea Nitrogen 18 mg/dL (7-17); Calcium 6.7 mg/dL (8.4-10.2); Carbon Dioxide 23 mmol/L (22-30); Chloride 107 mmol/L (98-107); Glucose 104 mg/dL (74-99); Potassium 3.8 mmol/L (3.5-5.1); Sodium 136 mmol/L (137-145)
[2019-06-01 10:28] LABS: Neutrophils % (M) 2 %
[2019-06-01 10:29] LABS: Lymphocytes # (M) 1.65 k/uL (1.0-4.8); Monocytes # (M) 0.02 k/uL (0-1.0); Nucleated Red Blood Cells 0 /100 WBC (0-0); Total Cells Counted 100
[2019-06-01 11:11] LABS: Glucose,Whole Blood 160 mg/dL (75-99)
--- NOTE | 2019-06-01 13:07 | P.PN ---
Subjective this Is a 73-year-old female with a known history of hypertension, hyperlipidemia and CLL and history of breast cancer in 2014 status post chemoradiation and surgery who is currently being treated for CLL with imatinab and is on follow-up with Dr. Oliva as an outpatient was sent to Hospital due to thrombocytopenia. Next a 2 been discharged from the hospital she got platelet and blood transfusion at hematology office, however patient was developing diarrhea about 3 times per day with no significant abdominal pain for about one week, associated with generalized weakness and malaise and dry cough for 3 days with no significant dyspnea or chest pain. Patient went for her hematology office follow-up today and her blood work showed slow platelet count and patient was sent to the hospital. Also on the hospital patient was put back on oxygen, she was discharged on room air last time. Patient was recently discharged from hospital 4 days ago for acute lung injury and possible pneumonia, related to multiple blood/platelet transfusion and was treated in the ICU, after stabilization she was discharged. Also at that time patient has pancytopenia, and the discharge age her white cell count was 11.7 K, hemoglobin 8.1 and platelet 18 K. This time hematology oncology team send the patient to emergency room for pancytopenia with WBC 3.0K, hemoglobin 6.6 and platelet 2K. INR is 1.0, potassium of 3.1, creatinine 0.9, and lactic acid is elevated at 2.3. On admission patient has been afebrile, Restoril Vitas looks stable, she was saturating 87-88% on room air, saturation went up to 96 and 3 L. Chest x-ray: Showing cardiomegaly with bilateral multifocal infiltrates. Patient is getting IV fluids at 100 L/h, also she supposed to get platelets and blood transfusion today, discussed with staff. Also patient was started on vancomycin and cefepime. 05/20/2019 Patient yesterday was hypotensive and tachypneic and she was saturating 93-97% on 3 L oxygen, staff concerned that her more fluid can compromise her resp function so patient was transferred to the intensive care unit, as per staff pt can not go to select unit. today is more awake and, however she is tachypneic with respiratory rate 22-25, blood pressure is improved to 114/70, she saturating 93-94% and is related to her, she had fever of 103.3 yesterday. Labs from today showing slight improvement in his WBC at 1.6K, hemoglobin improved to 6.7, platelets 3K. Sodium 136, creatinine normal at 0.7, sugar control. Patient remains in the ICU with on antibiotics in the form of vancomycin and cefepime is provided to the patient. Chest x-ray showing diffuse bilateral infiltrate with left pleural effusion, pneumonia versus pulmonary edema. 05/21/2019 pt is in the ICU, she is doing better , however she is still tachypenic, no chest pain or coughing , her blood culture is growing pseudomonas which is mostly related to her current sepsis , ID team already stopped vancomycin and increased the dose of cefepime, her cxr shows stable findings , source could be from port althought she has evidence of diverticulitis as well but her pain is not major in her belly , pt is still generally weak , pt is constipated rather than diarrhea, her pancytopenia is worse , no fever today , pt vitals remain stable. iv fluids were stopped . pt is felt stable to go to medical floor from yesterday however critical care team recommended to keep monitoring pt in icu for now 05/22/2019 pt is transferred to the general medical floor today , he breathing looks better , coughing and weakness are improving as well, no more abd pain and her LLQ tenderness improved as well. she is hemodynamically stable , labs shwoing improving leukocytes up to 1.2 , hb stable at 7.5 , platelet improved to 12k, pt has low grade fever yesterday night at 99.9, bp stable, pt developed rash on the trunk and mainly back and thought it is due to cefepime which is switched to aztreonam as per ID team. Patient has been taking care of by Dr. Cheung over the weekend and on a Sunday. 05/26/2019 Patient is seen in the general medical floor, she looks better, breathing more quiet with less respiratory distress. No chest pain. Occasional coughing. She remains on is aztreonam and Valacyclovir. Infectious disease R following the case closely. Her WBC is stable at 1.7, hemoglobin 7.5 and platelet 19. Discussed the case with oncology team. Patient could not work with PT/OT today and the proper way, whoever evaluated tomorrow We'll double check with infectious disease and oncology team about the discharge planning Discharge planning in 24-48 hours 05/27/2019 Patient clinically doing well, with her breathing is a stable. No chest pain. No dyspnea. Occasional coughing. Pancytopenia is worsened today with WBC down to 1.3, hemoglobin 6.9, platelets 8K, patient is getting been transfused blood and platelets. ID team recommended to continue with antibiotics aztreonam for 1 more week for her Pseudomonas infection. 05/28/2019 pt is still not cleared by oncology team , she is clinically the same or gradually improving , no new complaint , pt platelet are low again at 9k, and oncology team are planing for platelet transfusino , tomorrow she will get another dose of rituxan , will need 2 wks of aztreonam per ID 05/29/2019 Patient is awake with no chest pain or dyspnea. She has some abdominal discomfort. Vitals stable however she still have severe pancytopenia with WBC at 1.4, hemoglobin 7.5 and platelets 8, and absolute neutrophil is 0.1. rest of labs looked unremarkable. Patient is scheduled to get rituxan today or tomorrow by the hematology/oncology team. Patient might benefit from ECF upon discharge, discussed with social welfare research worker, however patient did not want to discuss it with the instability today 05/30/2019 Patient is awake with no chest pain or dyspnea. Her cough is minimal. Hemodynamically she is a stable However yesterday she developed right lower abdominal and right flank pain with tenderness associated with hematuria. Surgical team is been consulted and CAT scan of the abdomen was done followed by ultrasound showing larger right kidney which is suspicious for pyelonephritis, less likely renal infarct for which urologist evaluated the patient. Patient most likely she has seeding bacteria from her infection into her right kidney. Patient currently remains on antibiotics by infectious disease recommendation. Patient currently denies aztreonam. Patient urinalysis is showing moderate hematuria with RBC is more than 182, but not suspicious for infection. Pain management is provided with Dilaudid. Other labs showing severe pancytopenia with WBC 1.0, hemoglobin 5.9, platelets count 18 K. 05/31/2019 Patient is awake with no chest pain or dyspnea. Cough is better. She still have same right sided abdominal pain. No dysuria. She has low-grade temperature today. As a Vitas looks within normal limits. Patient getting blood and platelet transfusion today for thrombocytopenia and anemia. Her WBCs today is 1.6, hemoglobin 6.5 and platelets were 18 K yesterday, not repeated platelets today. Potassium is 3.3 which is been replaced and creatinine 0.5, sugar is controlled. Patient callumn is healthy now, possible total Sunday. 06/01/2019 Patient basically looks the same as yesterday. However she has several bouts of loose bowel movement. Laxative or stopped. Her abdominal pain in the right lower quadrant looks the same and she has occasional bowel spasms. No nausea vomiting. She is breathing quietly. Vitals are stable. Her WBCs is slightly improved to 1.7, hemoglobin at 7.1 and platelets at 15 K. She remains on aztreonam for now. Objective - Vital Signs Vital signs: Vital Signs Temp 99 F 06/01/19 11:50 Pulse 83 06/01/19 11:50 Resp 20 06/01/19 11:50 BP 151/75 06/01/19 11:50 Pulse Ox 94 L 06/01/19 11:50 Intake & Output 05/31/19 06/01/19 06/01/19 18:59 06:59 18:59 Intake Total 302 1100 Output Total 600 500 Balance -298 1100 -500 Weight 97.6 kg Intake: Intake, IV Titration 100 200 Amount Aztreonam 2 gm In Sodium 100 Chloride 0.9% 100 ml @ 100 mls/hr IVPB Q8H [facility] Rx#:[id number] metroNIDAZOLE-NS PMX 500 100 100 mg In Saline 1 100ml.bag @ 100 mls/hr IVPB Q8HR [facility] Rx#:[id number] Oral 590 Blood Product 202 310 Platelet Irr Pheresis 2 202 Acda Unit [id number] Rc Irr As1 Unit 0 310 [id number] Output: Urine 600 500 Other: Voiding Method Indwelling Catheter Indwelling Catheter Indwelling Catheter # Bowel Movements 2 1 - Exam -GENERAL: The patient is alert and oriented x3, not in any acute distress. Pale and weak HEENT: Pupils are round and equally reacting to light. EOMI. No scleral icterus. No conjunctival pallor. Normocephalic, atraumatic. No pharyngeal erythema. No thyromegaly. CARDIOVASCULAR: S1 and S2 present. No murmurs, rubs, or gallops. PULMONARY: Chest is clear to auscultation, no wheezing or crackles. -ABDOMEN: Soft,nondistended, normoactive bowel sounds. No palpable organomegaly. Right flank and lower quadrant tenderness with no rebound tenderness MUSCULOSKELETAL: No joint swelling or deformity. EXTREMITIES: No cyanosis, clubbing, or pedal edema. NEUROLOGICAL: Gross neurological examination did not reveal any focal deficits. SKIN: No rashes. - Labs CBC & Chem 7: 06/01/19 07:18 06/01/19 07:18 Labs: Abnormal Lab Results - Last 24 Hours (Table) 05/30/19 05/31/19 05/31/19 Range/Units 09:57 07:34 17:16 WBC (3.8-10.6) k/uL RBC (3.80-5.40) m/uL Hgb (11.4-16.0) gm/dL Hct (34.0-46.0) % Plt Count 6 L* D (150-450) k/uL Neutrophils # (Manual) 0.02 L* (1.3-7.7) k/uL Sodium (137-145) mmol/L BUN (7-17) mg/dL Glucose (74-99) mg/dL POC Glucose (mg/dL) 161 H (75-99) mg/dL Calcium (8.4-10.2) mg/dL Crossmatch See Detail 05/31/19 06/01/19 06/01/19 Range/Units 19:25 07:03 07:18 WBC 1.7 L (3.8-10.6) k/uL RBC 2.36 L (3.80-5.40) m/uL Hgb 7.1 L (11.4-16.0) gm/dL Hct 20.4 L (34.0-46.0) % Plt Count 15 L* D (150-450) k/uL Neutrophils # (Manual) 0.03 L* (1.3-7.7) k/uL Sodium (137-145) mmol/L BUN (7-17) mg/dL Glucose (74-99) mg/dL POC Glucose (mg/dL) 123 H 113 H (75-99) mg/dL Calcium (8.4-10.2) mg/dL Crossmatch 06/01/19 06/01/19 Range/Units 07:18 11:09 WBC (3.8-10.6) k/uL RBC (3.80-5.40) m/uL Hgb (11.4-16.0) gm/dL Hct (34.0-46.0) % Plt Count (150-450) k/uL Neutrophils # (Manual) (1.3-7.7) k/uL Sodium 136 L (137-145) mmol/L BUN 18 H (7-17) mg/dL Glucose 104 H (74-99) mg/dL POC Glucose (mg/dL) 160 H (75-99) mg/dL Calcium 6.7 L (8.4-10.2) mg/dL Crossmatch Assessment and Plan Assessment: Pancytopenia Right kidney pyelonephritis, renal infarct is less likely. With hematuria sepsis secondary to speudomonas , mostly secondary to pneumonia. Improving sigmoid diverticulitis , resolved chronic stable pulmonary infiltrates Elevated lactic acid. Resolved Dehydration and generalized weakness Acute hypoxemic respiratory failure CLL With leukocytosis. on Therapy Recent history of acute lung injury, related to multiple blood/platelet transfusion, with possible pneumonia History of breast cancer in 2014 status post chemo/radiation and surgery. Currently on anastrozole Hypertension Hyperlipidemia Osteoarthritis Previous history of smoking DVT prophylaxis with SCDs Plan: This is a pleasant 73 years old female who presents with pancytopenia and review of her CLL or therapy, also she has multiple lung infiltrates. And recently right-sided pyelonephritis. Continue with IV antibiotics per recommendations from infectious disease team I discussed the case with oncology team, possible discharge in the coming few days however patient would benefit from subacute rehab, we'll ask for PT OT evaluation follow-up.abs and medication were reviewe d.. Continue same treatment. Continue with symptomatic treatment. Resume home medication. Monitor lytes and vitals. DVT and GI prophylaxis. Further recommendations of the clinical course of the patient DVT prophylaxis: No anticoagulation in the view of low platelets GI Prophylaxis: Pepcid PT/OT: Pending Prognosis is guarded
[2019-06-01 17:16] LABS: Glucose,Whole Blood 122 mg/dL (75-99)
--- NOTE | 2019-06-01 17:50 | P.PN ---
Subjective Progress Note Date: 05/30/19 the patient continues to have generalized weakness but feels better today. She has been afebrile. Abdominal pain is significantly improved. She denied any diarrhea today. Diet has been resumed with liquids which she is tolerating. Objective - Vital Signs Vital signs: Vital Signs Temp 99 F 06/01/19 11:50 Pulse 83 06/01/19 11:50 Resp 20 06/01/19 11:50 BP 151/75 06/01/19 11:50 Pulse Ox 94 L 06/01/19 11:50 Intake & Output 05/31/19 06/01/19 06/01/19 18:59 06:59 18:59 Intake Total 302 1100 100 Output Total 600 500 Balance -298 1100 -400 Weight 97.6 kg Intake: Intake, IV Titration 100 200 100 Amount Aztreonam 2 gm In Sodium 100 Chloride 0.9% 100 ml @ 100 mls/hr IVPB Q8H [facility] Rx#:[id number] metroNIDAZOLE-NS PMX 500 100 100 100 mg In Saline 1 100ml.bag @ 100 mls/hr IVPB Q8HR [facility] Rx#:[id number] Oral 590 Blood Product 202 310 Platelet Irr Pheresis 2 202 Acda Unit [id number] Rc Irr As1 Unit 0 310 [id number] Output: Urine 600 500 Other: Voiding Method Indwelling Catheter Indwelling Catheter Indwelling Catheter # Bowel Movements 2 1 - Constitutional General appearance: Present: no acute distress - EENT Eyes: Present: EOMI ENT: Present: hearing grossly normal, normal oropharynx - Respiratory Respiratory: bilateral: CTA - Cardiovascular Rhythm: regular Heart sounds: normal: S1, S2 - Gastrointestinal General gastrointestinal: Present: normal bowel sounds, soft - Integumentary Integumentary: Present: normal - Neurologic Neurologic: Present: CNII-XII intact - Musculoskeletal Musculoskeletal: Present: generalized weakness, strength equal bilaterally - Psychiatric Psychiatric: Present: A&O x's 3, appropriate affect - Labs CBC & Chem 7: 06/01/19 07:18 06/01/19 07:18 Labs: Abnormal Lab Results - Last 24 Hours (Table) 05/30/19 05/31/19 06/01/19 Range/Units 09:57 19:25 07:03 WBC (3.8-10.6) k/uL RBC (3.80-5.40) m/uL Hgb (11.4-16.0) gm/dL Hct (34.0-46.0) % Plt Count (150-450) k/uL Neutrophils # (Manual) (1.3-7.7) k/uL Sodium (137-145) mmol/L BUN (7-17) mg/dL Glucose (74-99) mg/dL POC Glucose (mg/dL) 123 H 113 H (75-99) mg/dL Calcium (8.4-10.2) mg/dL Crossmatch See Detail 06/01/19 06/01/19 06/01/19 Range/Units 07:18 07:18 11:09 WBC 1.7 L (3.8-10.6) k/uL RBC 2.36 L (3.80-5.40) m/uL Hgb 7.1 L (11.4-16.0) gm/dL Hct 20.4 L (34.0-46.0) % Plt Count 15 L* D (150-450) k/uL Neutrophils # (Manual) 0.03 L* (1.3-7.7) k/uL Sodium 136 L (137-145) mmol/L BUN 18 H (7-17) mg/dL Glucose 104 H (74-99) mg/dL POC Glucose (mg/dL) 160 H (75-99) mg/dL Calcium 6.7 L (8.4-10.2) mg/dL Crossmatch 06/01/19 Range/Units 17:12 WBC (3.8-10.6) k/uL RBC (3.80-5.40) m/uL Hgb (11.4-16.0) gm/dL Hct (34.0-46.0) % Plt Count (150-450) k/uL Neutrophils # (Manual) (1.3-7.7) k/uL Sodium (137-145) mmol/L BUN (7-17) mg/dL Glucose (74-99) mg/dL POC Glucose (mg/dL) 122 H (75-99) mg/dL Calcium (8.4-10.2) mg/dL Crossmatch Assessment and Plan (1) Abnormal CT scan, kidney Narrative/Plan: The patient's CT scan showed right kidney appears consistent with pyelonephritis. Appearance of the bowel was normal, due to which diet was resumed. Case was discussed in detail with ID. The patient had been covered with aztreonam for several days. She had been offered only for about a day. Thus, this is likely occurred due to immunosuppression, with neutropenia, and hypogammaglobulinemia. The patient is on filgrastim, without much neutrophil response. IVIG cannot be utilized, as there is a nationwide shortage. The patient was therefore placed back on antibiotics, and feels improved. Continue antibiotics per ID Current Visit: Yes Status: Acute Code(s): R93.429 - ABNORMAL RADIOLOGIC FINDINGS ON DX IMAGING OF UNSP KIDNEY SNOMED Code(s): 867395548 (2) Pancytopenia Narrative/Plan: The patient continues to be pancytopenic, despite ongoing growth factor support, and excellent peripheral cytoreduction with Rituxan. This is most likely due to persistent involvement of the bone marrow with CLL, despite peripheral cytoreduction. Continue transfusion support and growth factors. The patient will likely need more aggressive treatment to try to clear the bone marrow better, for improvement in her counts Current Visit: Yes Status: Acute Priority: High Code(s): D61.818 - OTHER PANCYTOPENIA SNOMED Code(s): 198756507 (3) CLL (chronic lymphocytic leukemia) Narrative/Plan: The patient has had excellent peripheral cytoreduction with Rituxan. However counts have not improved, indicating that most likely significant bone marrow involvement persists. The plan has been to treat her more aggressively, with bendamustine and Rituxan. However before treatment would be initiated, the patient had developed bacteremia. Therefore chemotherapy had to be held to enable control of her bacteremia with antibiotic. Other cultures were negative, the plan had been to start chemotherapy, but now the patient has developed acute pyelonephritis. Case was discussed with ID. They recommended to hold off on any treatment of the leukemia, including CLL, till the patient is able to have at least 2-3 days of antibiotics, and experiences control of symptoms, as well as negative cultures. Case was also discussed informally with hematology oncology at [facility]. They agreed with the above, and felt that to achieve a response, the p atient would need to be administered chemotherapy along with Rituxan. That approach report carry increased risk of adverse events, given marked pancytopenia, recent infections, as well as drop in performance status. However improvement is unlikely to occur without the same. This was discussed with the patient. She expressed understanding of the fact that more aggressive treatment would carry a significantly higher risk of adverse events, but she is unlikely to improve without that. At this time the plan would be to reassess her on 06/02/19, and then consider starting Chemotherapy plus Rituxan depending on her status at that time. That with the patient would have been on antibiotics for 3-4 days, and assuming that she symptomatically improved, would have somewhat decreased risk with starting treatment Current Visit: Yes Status: Chronic Priority: High Code(s): C91.90 - LYMPHOID LEUKEMIA, UNSPECIFIED NOT HAVING ACHIEVED REMISSION SNOMED Code(s): 94426114
[2019-06-01 20:12] LABS: Glucose,Whole Blood 123 mg/dL (75-99)
--- NOTE | 2019-06-01 20:35 | PN ---
PROGRESS NOTE DATE OF SERVICE: 06/01/2019. REASON FOR FOLLOWUP: 1. Pseudomonas bacteremia, right-sided pyelonephritis. 2. Diarrhea. INTERVAL HISTORY: The patient is currently afebrile. Patient is breathing comfortably. Her main symptom has been diarrhea with multiple loose stools today. Still complaining of abdominal pain, though slightly eased out with the pain medication. The patient continued to have some cough though not bringing up any sputum. No chest pain or shortness of breath. PHYSICAL EXAMINATION: Blood pressure 151/75 with a pulse of 83, temperature 99. She is 94% on room air. General description is an elderly female, lying in bed in no distress. Respiratory system: Unlabored breathing. Clear to auscultation anteriorly. Heart S1, S2. Regular rate and rhythm. ABDOMEN: Soft. Mildly distended and tender on the right side. LABS: Hemoglobin is 7.1, white count 1.7, BUN of 18, creatinine 0.65. Blood culture repeat has been negative. DIAGNOSTIC IMPRESSION AND PLAN: 1. Patient with Pseudomonas aeruginosa bacteremia source. Initial concern for pneumonia, also have evidence of right-sided pyelonephritis. Repeat blood culture has been negative. Currently covered with Azactam because of allergy rash to the cefepime. 2. Patient now with diarrhea in this patient who has been exposed to hospital, has been in the hospital for almost 2 weeks now. We will check a stool for C difficile and treat if positive. She has been advised to increase the yogurt intake and monitor clinical course closely. MMODL / IJN: [id number] /
[2019-06-01] MEDS: ATORVASTATIN 40 MG TAB PO SCH (21:47)
[2019-06-01] MEDS: ACETAMINOPHEN TAB 325 MG TAB PO PRN (21:48)
[2019-06-02] MEDS: metroNIDAZOLE-NS PMX 500 MG in SALINE 1 100ML.BAG IVPB SCH ×5 (00:04→23:50)
[2019-06-02] MEDS: HYDROmorphone 0.5 MG/0.5 ML SYRINGE IVP PRN ×5 (00:04→20:20)
[2019-06-02] MEDS: SODIUM CHLORIDE 0.9% 500 ML 500 ML IV SCH (05:15)
[2019-06-02] MEDS: AZTREONAM 2 GM in SODIUM CHLORIDE 0.9% 100 ML IVPB SCH ×3 (05:37→23:50)
[2019-06-02] MEDS: guaiFENesin SYRUP 100MG/5ML 200 MG/10 ML CUP PO PRN (05:37)
[2019-06-02 07:05] LABS: Glucose,Whole Blood 104 mg/dL (75-99)
[2019-06-02] MEDS: INSULIN ASPART (NovoLOG) 100 UNIT/ML VIAL SQ SCH ×4 (07:51→20:22)
[2019-06-02] MEDS: PANTOPRAZOLE 40 MG TABLET PO SCH ×2 (07:58→16:37)
[2019-06-02] MEDS: ALLOPURINOL 300 MG TAB PO SCH (07:59)
[2019-06-02] MEDS: POLYETHYLENE GLYCOL 3350 17 GM POWD.PACK PO SCH (07:59)
[2019-06-02] MEDS: FILGRASTIM-SNDZ 480 MCG/0.8 ML SYRINGE SQ SCH (08:00)
[2019-06-02] MEDS: valACYclovir HCL 1,000 MG TABLET PO SCH ×2 (08:01→20:21)
[2019-06-02] MEDS: SENNOSIDES-DOCUSATE SODIUM 1 EACH TAB PO SCH ×2 (08:02→20:22)
[2019-06-02 09:29] LABS: African American GFR (CKD) >90 (>60 ml/min/1.73 sqM); Anion Gap 7 mmol/L; Blood Urea Nitrogen 17 mg/dL (7-17); Calcium 6.5 mg/dL (8.4-10.2); Carbon Dioxide 24 mmol/L (22-30); Chloride 105 mmol/L (98-107); Glucose 117 mg/dL (74-99); Potassium 3.6 mmol/L (3.5-5.1); Sodium 136 mmol/L (137-145)
[2019-06-02 09:38] LABS: Basophils % (A) 0 %; Eosinophils % (A) 1 %; HCT 20.7 % (34.0-46.0); HGB 7.2 gm/dL (11.4-16.0); Lymphocytes # (A) 1.2 k/uL (1.0-4.8); Lymphocytes % (A) 89 %; MCH 30.4 pg (25.0-35.0); MCHC 34.9 g/dL (31.0-37.0); MCV 87.2 fL (80.0-100.0); Mean Platelet Volume 10.7; Monocytes % (A) 2 %; Neutrophils % (A) 7 %; RBC 2.37 m/uL (3.80-5.40); RDW 14.5 % (11.5-15.5)
[2019-06-02 10:03] LABS: Platelet Count 8 k/uL (150-450); WBC 1.3 k/uL (3.8-10.6)
--- NOTE | 2019-06-02 10:36 | P.PN ---
Subjective Progress Note Date: 06/02/19 Principal diagnosis: Pseudomonas bacteremia. Pancytopenia secondary to CLL, currently receiving monoclonal antibody therapy weekly-held, new pyelonephritis In follow-up today patient states feeling better, she continues to have some right abdominal pain, improved from last week, she had a fever overnight of 101.2 Fahrenheit, her cough is dry and nagging, it increases with activity and speaking, she denies hemoptysis, nausea, she does have rib pain from coughing, denies radiating type chest pain or back pain, current analgesics are effective when used, she has fluctuating bowels that have been challenging to regulate, she denies hematochezia, melena, rectal pain, dysuria, hematuria, mild lower extremity swelling, moderate, generalized weakness. Objective - Vital Signs Vital signs: Vital Signs Temp 97.5 F L 06/02/19 05:00 Pulse 74 06/02/19 05:00 Resp 16 06/02/19 05:00 BP 157/83 06/02/19 05:00 Pulse Ox 95 06/02/19 05:00 Intake & Output 06/01/19 06/02/19 06/02/19 18:59 06:59 18:59 Intake Total 100 2360 Output Total 500 900 Balance -400 1460 Weight 97.7 kg Intake: Intake, IV Titration 100 Amount metroNIDAZOLE-NS PMX 500 100 mg In Saline 1 100ml.bag @ 100 mls/hr IVPB Q8HR [facility] Rx#:[id number] Oral 2360 Output: Urine 500 900 Uretheral (Espinoza) 900 Other: Voiding Method Indwelling Catheter Indwelling Catheter # Bowel Movements 1 - Constitutional General appearance: Present: cooperative, no acute distress, obese - EENT Eyes: Present: anicteric sclerae, EOMI ENT: Present: hearing grossly normal, normal oropharynx - Respiratory Respiratory: bilateral: CTA - Cardiovascular Heart sounds: normal: S1, S2 Abnormal Heart Sounds: Absent: systolic murmur, diastolic murmur, rub, S3 Gallop, S4 Gallop, click, other - Peripheral edema foot Peripheral Edema: bilateral: Trace - Gastrointestinal General gastrointestinal: Present: normal bowel sounds, soft, tenderness. Absent: absent bowel sounds, decreased bowel sounds, distended, hepatomegaly, hyperactive bowel sounds, organomegaly, rigid, scaphoid, splenomegaly, umbilical hernia, ventral hernia Localized gastrointestinal: tender: RLQ (mild, abd is not warm to touch today) - Musculoskeletal Musculoskeletal: Present: generalized weakness - Psychiatric Psychiatric: Present: A&O x's 3, appropriate affect, intact judgment & insight - Labs CBC & Chem 7: 06/02/19 08:40 06/02/19 08:40 Labs: Abnormal Lab Results - Last 24 Hours (Table) 06/01/19 06/01/19 06/01/19 Range/Units 07:18 11:09 17:12 WBC (3.8-10.6) k/uL RBC (3.80-5.40) m/uL Hgb (11.4-16.0) gm/dL Hct (34.0-46.0) % Neutrophils # (Manual) 0.03 L* (1.3-7.7) k/uL Sodium (137-145) mmol/L Glucose (74-99) mg/dL POC Glucose (mg/dL) 160 H 122 H (75-99) mg/dL Calcium (8.4-10.2) mg/dL 06/01/19 06/02/19 06/02/19 Range/Units 20:11 07:04 08:40 WBC 1.3 L* (3.8-10.6) k/uL RBC 2.37 L (3.80-5.40) m/uL Hgb 7.2 L (11.4-16.0) gm/dL Hct 20.7 L (34.0-46.0) % Neutrophils # (Manual) (1.3-7.7) k/uL Sodium (137-145) mmol/L Glucose (74-99) mg/dL POC Glucose (mg/dL) 123 H 104 H (75-99) mg/dL Calcium (8.4-10.2) mg/dL 06/02/19 Range/Units 08:40 WBC (3.8-10.6) k/uL RBC (3.80-5.40) m/uL Hgb (11.4-16.0) gm/dL Hct (34.0-46.0) % Neutrophils # (Manual) (1.3-7.7) k/uL Sodium 136 L (137-145) mmol/L Glucose 117 H (74-99) mg/dL POC Glucose (mg/dL) (75-99) mg/dL Calcium 6.5 L (8.4-10.2) mg/dL Assessment and Plan (1) Abdominal pain Narrative/Plan: Significantly improved. [place] to be related to pyelonephritis. Infectious Disease is following, Urology is following, antibiotics ordered. Current Visit: Yes Status: Acute Priority: High Code(s): R10.9 - UNSPECIFIED ABDOMINAL PAIN SNOMED Code(s): 29098811 (2) Bacteremia due to Pseudomonas Current Visit: Yes Status: Resolved Priority: High Code(s): R78.81 - BACTEREMIA SNOMED Code(s): 575611963633 (3) CLL (chronic lymphocytic leukemia) Narrative/Plan: Patient is status post 3 of 4 cycles of weekly Rituxan. Her lymphocyte count has come down very well with treatment but, unfortunately we are not getting the rebound response in her other blood counts that would be anticipated with improvement in lymphocytosis. Patient is still requiring intermittent blood and platelet transfusions. Plan is now to plan for the addition of bendamustine to the Rituxan for dose. Suspect marrow involvement, chemotherapy is going to be needed in order to affect disease within the marrow. Currently pending stability of patient. Patient had a 101.2 Fahrenheit fever last night. She continues on antibiotics. Working with pharmacy to try and obtain a dose of IVIG. Patient will continue with daily lab draws and with supportive transfusions PRN. Orders for cycle 4/4 of Rituxan were canceled Current Visit: Yes Status: Chronic Priority: High Code(s): C91.90 - LYMPHO ID LEUKEMIA, UNSPECIFIED NOT HAVING ACHIEVED REMISSION SNOMED Code(s): 92 145740 (4) Pancytopenia Narrative/Plan: Secondary to disease Transfuse for hemoglobin less than 7, or symptoms. Transfuse for a platelet count less than 10,000 or symptomatic. No aspirin, NSAIDs, anticoagulation. Continue G-CSF for an absolute neutrophil count less than 1000. Have contacted pharmacy. Trying to obtain IVIG on an emergent basis. IgG level ordered. Current Visit: Yes Status: Acute Priority: High Code(s): D61.818 - OTHER PANCYTOPENIA SNOMED Code(s): 690229000 (5) Constipation Narrative/Plan: Unfortunate fluctuation bowel habits. Patient has medications available for constipation and diarrhea. Current Visit: Yes Status: Resolved Priority: High Code(s): K59.00 - CONSTIPATION, UNSPECIFIED SNOMED Code(s): 63229813 (6) Moderate protein-calorie malnutrition Narrative/Plan: Patient has a very poor appetite. Consult Dietitian for recommendations. May have to consider an appetite stimulant. Current Visit: Yes Status: Acute Priority: High Code(s): E44.0 - MODERATE PROTEIN-CALORIE MALNUTRITION SNOMED Code(s): 000872091 (7) Physical debility Narrative/Plan: PT/OT. Patient states that some of her difficulty rehabilitating has to do with cough. Continue with Robitussin. Marlena Reyes have been added. We will see if this improves Current Visit: Yes Status: Acute Priority: High Code(s): R53.81 - OTHER MALAISE SNOMED Code(s): 95077619
[2019-06-02 11:32] LABS: Glucose,Whole Blood 142 mg/dL (75-99)
[2019-06-02] MEDS: ACETAMINOPHEN TAB 325 MG TAB PO PRN ×2 (11:36→20:21)
[2019-06-02] MEDS: BENZONATATE 100 MG CAP PO SCH ×3 (11:46→20:22)
[2019-06-02 12:38] LABS: Neutrophils # (A) 0.1 k/uL (1.3-7.7)
--- NOTE | 2019-06-02 13:10 | P.PN ---
Subjective this Is a 73-year-old female with a known history of hypertension, hyperlipidemia and CLL and history of breast cancer in 2014 status post chemoradiation and surgery who is currently being treated for CLL with imatinab and is on follow-up with Dr. Oliva as an outpatient was sent to Hospital due to thrombocytopenia. Next a 2 been discharged from the hospital she got platelet and blood transfusion at hematology office, however patient was developing diarrhea about 3 times per day with no significant abdominal pain for about one week, associated with generalized weakness and malaise and dry cough for 3 days with no significant dyspnea or chest pain. Patient went for her hematology office follow-up today and her blood work showed slow platelet count and patient was sent to the hospital. Also on the hospital patient was put back on oxygen, she was discharged on room air last time. Patient was recently discharged from hospital 4 days ago for acute lung injury and possible pneumonia, related to multiple blood/platelet transfusion and was treated in the ICU, after stabilization she was discharged. Also at that time patient has pancytopenia, and the discharge age her white cell count was 11.7 K, hemoglobin 8.1 and platelet 18 K. This time hematology oncology team send the patient to emergency room for pancytopenia with WBC 3.0K, hemoglobin 6.6 and platelet 2K. INR is 1.0, potassium of 3.1, creatinine 0.9, and lactic acid is elevated at 2.3. On admission patient has been afebrile, Restoril Vitas looks stable, she was saturating 87-88% on room air, saturation went up to 96 and 3 L. Chest x-ray: Showing cardiomegaly with bilateral multifocal infiltrates. Patient is getting IV fluids at 100 L/h, also she supposed to get platelets and blood transfusion today, discussed with staff. Also patient was started on vancomycin and cefepime. 05/20/2019 Patient yesterday was hypotensive and tachypneic and she was saturating 93-97% on 3 L oxygen, staff concerned that her more fluid can compromise her resp function so patient was transferred to the intensive care unit, as per staff pt can not go to select unit. today is more awake and, however she is tachypneic with respiratory rate 22-25, blood pressure is improved to 114/70, she saturating 93-94% and is related to her, she had fever of 103.3 yesterday. Labs from today showing slight improvement in his WBC at 1.6K, hemoglobin improved to 6.7, platelets 3K. Sodium 136, creatinine normal at 0.7, sugar control. Patient remains in the ICU with on antibiotics in the form of vancomycin and cefepime is provided to the patient. Chest x-ray showing diffuse bilateral infiltrate with left pleural effusion, pneumonia versus pulmonary edema. 05/21/2019 pt is in the ICU, she is doing better , however she is still tachypenic, no chest pain or coughing , her blood culture is growing pseudomonas which is mostly related to her current sepsis , ID team already stopped vancomycin and increased the dose of cefepime, her cxr shows stable findings , source could be from port althought she has evidence of diverticulitis as well but her pain is not major in her belly , pt is still generally weak , pt is constipated rather than diarrhea, her pancytopenia is worse , no fever today , pt vitals remain stable. iv fluids were stopped . pt is felt stable to go to medical floor from yesterday however critical care team recommended to keep monitoring pt in icu for now 05/22/2019 pt is transferred to the general medical floor today , he breathing looks better , coughing and weakness are improving as well, no more abd pain and her LLQ tenderness improved as well. she is hemodynamically stable , labs shwoing improving leukocytes up to 1.2 , hb stable at 7.5 , platelet improved to 12k, pt has low grade fever yesterday night at 99.9, bp stable, pt developed rash on the trunk and mainly back and thought it is due to cefepime which is switched to aztreonam as per ID team. Patient has been taking care of by Dr. Cheung over the weekend and on a Sunday. 05/26/2019 Patient is seen in the general medical floor, she looks better, breathing more quiet with less respiratory distress. No chest pain. Occasional coughing. She remains on is aztreonam and Valacyclovir. Infectious disease R following the case closely. Her WBC is stable at 1.7, hemoglobin 7.5 and platelet 19. Discussed the case with oncology team. Patient could not work with PT/OT today and the proper way, whoever evaluated tomorrow We'll double check with infectious disease and oncology team about the discharge planning Discharge planning in 24-48 hours 05/27/2019 Patient clinically doing well, with her breathing is a stable. No chest pain. No dyspnea. Occasional coughing. Pancytopenia is worsened today with WBC down to 1.3, hemoglobin 6.9, platelets 8K, patient is getting been transfused blood and platelets. ID team recommended to continue with antibiotics aztreonam for 1 more week for her Pseudomonas infection. 05/28/2019 pt is still not cleared by oncology team , she is clinically the same or gradually improving , no new complaint , pt platelet are low again at 9k, and oncology team are planing for platelet transfusino , tomorrow she will get another dose of rituxan , will need 2 wks of aztreonam per ID 05/29/2019 Patient is awake with no chest pain or dyspnea. She has some abdominal discomfort. Vitals stable however she still have severe pancytopenia with WBC at 1.4, hemoglobin 7.5 and platelets 8, and absolute neutrophil is 0.1. rest of labs looked unremarkable. Patient is scheduled to get rituxan today or tomorrow by the hematology/oncology team. Patient might benefit from ECF upon discharge, discussed with social worker clinical, however patient did not want to discuss it with the instability today 05/30/2019 Patient is awake with no chest pain or dyspnea. Her cough is minimal. Hemodynamically she is a stable However yesterday she developed right lower abdominal and right flank pain with tenderness associated with hematuria. Surgical team is been consulted and CAT scan of the abdomen was done followed by ultrasound showing larger right kidney which is suspicious for pyelonephritis, less likely renal infarct for which urologist evaluated the patient. Patient most likely she has seeding bacteria from her infection into her right kidney. Patient currently remains on antibiotics by infectious disease recommendation. Patient currently denies aztreonam. Patient urinalysis is showing moderate hematuria with RBC is more than 182, but not suspicious for infection. Pain management is provided with Dilaudid. Other labs showing severe pancytopenia with WBC 1.0, hemoglobin 5.9, platelets count 18 K. 05/31/2019 Patient is awake with no chest pain or dyspnea. Cough is better. She still have same right sided abdominal pain. No dysuria. She has low-grade temperature today. As a Vitas looks within normal limits. Patient getting blood and platelet transfusion today for thrombocytopenia and anemia. Her WBCs today is 1.6, hemoglobin 6.5 and platelets were 18 K yesterday, not repeated platelets today. Potassium is 3.3 which is been replaced and creatinine 0.5, sugar is controlled. Patient rituxan is healthy now, possible total Sunday. 06/01/2019 Patient basically looks the same as yesterday. However she has several bouts of loose bowel movement. Laxative or stopped. Her abdominal pain in the right lower quadrant looks the same and she has occasional bowel spasms. No nausea vomiting. She is breathing quietly. Vitals are stable. Her WBCs is slightly improved to 1.7, hemoglobin at 7.1 and platelets at 15 K. She remains on aztreonam for now. 06/02/2019 Patient lying in bed, not in respiratory distress. No chest pain/she has right lower quadrant abdominal pain gradually improving. no new complaints. . She is hemodynamically stable. She still running fever of 100.2F today. She still have pancytopenia with WBC 1.3K, platelets 8K and hemoglobin is 7.2. The case with the hematology/oncology team, withholding chemotherapy. Patient will be afebrile for 48 hours. Patient remains on aztreonam for now as per ID recommendation. Objective - Vital Signs Vital signs: Vital Signs Temp 99 F 06/02/19 12:43 Pulse 84 06/02/19 12:43 Resp 20 06/02/19 12:43 BP 156/74 06/02/19 12:43 Pulse Ox 94 L 06/02/19 12:43 Intake & Output 06/01/19 06/02/19 06/02/19 18:59 06:59 18:59 Intake Total 100 2360 200 Output Total 500 900 Balance -400 1460 200 Weight 97.7 kg Intake: Intake, IV Titration 100 Amount metroNIDAZOLE-NS PMX 500 100 mg In Saline 1 100ml.bag @ 100 mls/hr IVPB Q8HR [facility] Rx#:[id number] Oral 2360 Blood Product 200 Platelet Irr Pheresis 200 Acda1 Unit [id number] Output: Urine 500 900 Uretheral (Espinoza) 900 Other: Voiding Method Indwelling Catheter Indwelling Catheter # Bowel Movements 1 - Exam -GENERAL: The patient is alert and oriented x3, not in any acute distress. Pale and weak HEENT: Pupils are round and equally reacting to light. EOMI. No scleral icterus. No conjunctival pallor. Normocephalic, atraumatic. No pharyngeal erythema. No thyromegaly. CARDIOVASCULAR: S1 and S2 present. No murmurs, rubs, or gallops. PULMONARY: Chest is clear to auscultation, no wheezing or crackles. -ABDOMEN: Soft,nondistended, normoactive bowel sounds. No palpable organomegaly. Right flank and lower quadrant tenderness with no rebound tenderness MUSCULOSKELETAL: No joint swelling or deformity. EXTREMITIES: No cyanosis, clubbing, or pedal edema. NEUROLOGICAL: Gross neurological examination did not reveal any focal deficits. SKIN: No rashes. - Labs CBC & Chem 7: 06/02/19 08:40 06/02/19 08:40 Labs: Abnormal Lab Results - Last 24 Hours (Table) 06/01/19 06/01/19 06/02/19 Range/Units 17:12 20:11 07:04 WBC (3.8-10.6) k/uL RBC (3.80-5.40) m/uL Hgb (11.4-16.0) gm/dL Hct (34.0-46.0) % Plt Count (150-450) k/uL Neutrophils # (1.3-7.7) k/uL Sodium (137-145) mmol/L Glucose (74-99) mg/dL POC Glucose (mg/dL) 122 H 123 H 104 H (75-99) mg/dL Calcium (8.4-10.2) mg/dL 06/02/19 06/02/19 06/02/19 Range/Units 08:40 08:40 11:31 WBC 1.3 L* (3.8-10.6) k/uL RBC 2.37 L (3.80-5.40) m/uL Hgb 7.2 L (11.4-16.0) gm/dL Hct 20.7 L (34.0-46.0) % Plt Count 8 L* (150-450) k/uL Neutrophils # 0.1 L* (1.3-7.7) k/uL Sodium 136 L (137-145) mmol/L Glucose 117 H (74-99) mg/dL POC Glucose (mg/dL) 142 H (75-99) mg/dL Calcium 6.5 L (8.4-10.2) mg/dL Assessment and Plan Assessment: Pancytopenia Right kidney pyelonephritis, renal infarct is less likely. With hematuria sepsis secondary to speudomonas , mostly secondary to pneumonia. Improving sigmoid diverticulitis , resolved chronic stable pulmonary infiltrates Elevated lactic acid. Resolved Dehydration and generalized weakness Acute hypoxemic respiratory failure CLL With leukocytosis. on Therapy Recent history of acute lung injury, related to multiple blood/platelet transfusion, with possible pneumonia History of breast cancer in 2014 status post chemo/radiation and surgery. Currently on anastrozole Hypertension Hyperlipidemia Osteoarthritis Previous history of smoking DVT prophylaxis with SCDs Plan: This is a pleasant 73 years old female who presents with pancytopenia and review of her CLL or therapy, also she has multiple lung infiltrates. And recently right-sided pyelonephritis. Continue with IV antibiotics per recommendations from infectious disease team I discussed the case with oncology team, possible discharge in the coming few days however patient would benefit from subacute rehab, we'll ask for PT OT evaluation follow-up.abs and medication were reviewed.. Continue same treatment. Continue with symptomatic treatment. Resume home medication. Monitor lytes and vitals. DVT and GI prophylaxis. Further recommendations of the clinical course of the patient DVT prophylaxis: No anticoagulation in the view of low platelets GI Prophylaxis: Pepcid PT/OT: Pending Prognosis is guarded
[2019-06-02 17:14] LABS: Appearance,Urine Clear (Clear); Bilirubin,Urine Negative (Negative); Blood,Urine Large (Negative); Color,Urine Yellow; Glucose,Urine (UA) Negative (Negative); Ketones,Urine Negative (Negative); Leukocyte Esterase,Urine Trace (Negative); Mucus,Urine Occasional /hpf; Nitrite,Urine Negative (Negative); PH, Urine 6.5 (5.0-8.0); Protein,Urine 1+ (Negative); RBC,Urine >182 /hpf (0-5); Specific Gravity,Urine 1.013 (1.001-1.035); Urobilinogen,Urine <2.0 mg/dL (<2.0)
[2019-06-02 17:20] LABS: Glucose,Whole Blood 125 mg/dL (75-99)
--- NOTE | 2019-06-02 17:39 | PN ---
PROGRESS NOTE DATE OF SERVICE: 06/02/2019 REASON FOR FOLLOWUP: Pseudomonas bacteremia and right-sided pyelonephritis. INTERVAL HISTORY: The patient did have a low-grade fever of 100.2 this morning with a fever of 101.2 yesterday. The patient denies having any chest pain or shortness of breath. The patient's cough has improved. No nausea or vomiting. Denies having any worsening diarrhea. PHYSICAL EXAMINATION: On examination, her blood pressure is 156/74 with a pulse of 84, temperature of 99. She is 94% on room air. General description is an elderly female lying in bed in no distress. RESPIRATORY SYSTEM: Unlabored breathing with decreased breath sounds in the bases. No wheeze. HEART: S1, S2. Regular rate and rhythm. ABDOMEN: Soft. No tenderness. LABS: Hemoglobin 7.2, white count 1.3 with a BUN of 17, creatinine 0.59. Blood culture obtained yesterday so far pending. DIAGNOSTIC IMPRESSION AND PLAN: Patient with Pseudomonas aeruginosa bacteremia with concern for possible right-sided pyelonephritis and pneumonia. The patient's follow-up blood culture has been negative. Did have worsening of the right kidney findings on the basis of repeat CT. Repeat UA was not significantly positive, so cultures were not done. Repeat culture has been ordered today. In view of the new fever, blood culture was repeated yesterday as well, and those will be followed. Will monitor clinical course closely. Continue with Azactam and continue with supportive care. MMODL / IJN: [id number] /
[2019-06-02] MEDS: ATORVASTATIN 40 MG TAB PO SCH (20:21)
[2019-06-02 20:23] LABS: Glucose,Whole Blood 117 mg/dL (75-99)
[2019-06-03] MEDS: HYDROmorphone 0.5 MG/0.5 ML SYRINGE IVP PRN ×5 (01:36→21:00)
[2019-06-03] MEDS: ONDANSETRON 4 MG/2 ML VIAL IVP PRN (01:36)
[2019-06-03] MEDS: SODIUM CHLORIDE 0.9% 500 ML 500 ML IV SCH (05:18)
[2019-06-03] MEDS: AZTREONAM 2 GM in SODIUM CHLORIDE 0.9% 100 ML IVPB SCH ×3 (05:19→21:42)
[2019-06-03] MEDS: metroNIDAZOLE-NS PMX 500 MG in SALINE 1 100ML.BAG IVPB SCH ×4 (07:07→16:02)
[2019-06-03 07:08] LABS: Glucose,Whole Blood 106 mg/dL (75-99)
[2019-06-03] MEDS: FILGRASTIM-SNDZ 480 MCG/0.8 ML SYRINGE SQ SCH (07:13)
[2019-06-03] MEDS: INSULIN ASPART (NovoLOG) 100 UNIT/ML VIAL SQ SCH ×4 (07:16→20:47)
[2019-06-03 07:40] LABS: Basophils % (A) 0 %; Eosinophils % (A) 1 %; Lymphocytes # (A) 1.3 k/uL (1.0-4.8); Lymphocytes % (A) 89 %; MCH 30.2 pg (25.0-35.0); MCHC 34.9 g/dL (31.0-37.0); MCV 86.4 fL (80.0-100.0); Mean Platelet Volume 8.8; Monocytes % (A) 1 %; Neutrophils % (A) 8 %; RBC 2.24 m/uL (3.80-5.40); RDW 13.9 % (11.5-15.5); WBC 1.5 k/uL (3.8-10.6)
[2019-06-03] MEDS: POLYETHYLENE GLYCOL 3350 17 GM POWD.PACK PO SCH (07:44)
[2019-06-03] MEDS: SENNOSIDES-DOCUSATE SODIUM 1 EACH TAB PO SCH ×2 (07:44→19:45)
[2019-06-03] MEDS: BENZONATATE 100 MG CAP PO SCH ×3 (07:44→20:50)
[2019-06-03] MEDS: valACYclovir HCL 1,000 MG TABLET PO SCH ×2 (07:44→20:50)
[2019-06-03] MEDS: ALLOPURINOL 300 MG TAB PO SCH (07:44)
[2019-06-03] MEDS: PANTOPRAZOLE 40 MG TABLET PO SCH ×2 (07:44→18:18)
[2019-06-03 07:56] LABS: HGB 6.7 gm/dL (11.4-16.0)
[2019-06-03 07:57] LABS: HCT 19.3 % (34.0-46.0); Platelet Count 10 k/uL (150-450)
[2019-06-03 08:07] LABS: African American GFR (CKD) >90 (>60 ml/min/1.73 sqM); Anion Gap 7 mmol/L; Blood Urea Nitrogen 14 mg/dL (7-17); Carbon Dioxide 23 mmol/L (22-30); Chloride 105 mmol/L (98-107); Glucose 98 mg/dL (74-99); Potassium 3.5 mmol/L (3.5-5.1); Sodium 135 mmol/L (137-145)
[2019-06-03 08:21] LABS: Calcium 6.3 mg/dL (8.4-10.2)
[2019-06-03 09:16] LABS: Poikilocytosis (M) Present
[2019-06-03 09:17] LABS: Neutrophils # (A) 0.1 k/uL (1.3-7.7)
[2019-06-03 11:24] LABS: Glucose,Whole Blood 116 mg/dL (75-99)
--- NOTE | 2019-06-03 11:59 | P.PN ---
Subjective this Is a 73-year-old female with a known history of hypertension, hyperlipidemia and CLL and history of breast cancer in 2014 status post chemoradiation and surgery who is currently being treated for CLL with imatinab and is on follow-up with Dr. Oliva as an outpatient was sent to Hospital due to thrombocytopenia. Next a 2 been discharged from the hospital she got platelet and blood transfusion at hematology office, however patient was developing diarrhea about 3 times per day with no significant abdominal pain for about one week, associated with generalized weakness and malaise and dry cough for 3 days with no significant dyspnea or chest pain. Patient went for her hematology office follow-up today and her blood work showed slow platelet count and patient was sent to the hospital. Also on the hospital patient was put back on oxygen, she was discharged on room air last time. Patient was recently discharged from hospital 4 days ago for acute lung injury and possible pneumonia, related to multiple blood/platelet transfusion and was treated in the ICU, after stabilization she was discharged. Also at that time patient has pancytopenia, and the discharge age her white cell count was 11.7 K, hemoglobin 8.1 and platelet 18 K. This time hematology oncology team send the patient to emergency room for pancytopenia with WBC 3.0K, hemoglobin 6.6 and platelet 2K. INR is 1.0, potassium of 3.1, creatinine 0.9, and lactic acid is elevated at 2.3. On admission patient has been afebrile, Restoril Vitas looks stable, she was saturating 87-88% on room air, saturation went up to 96 and 3 L. Chest x-ray: Showing cardiomegaly with bilateral multifocal infiltrates. Patient is getting IV fluids at 100 L/h, also she supposed to get platelets and blood transfusion today, discussed with staff. Also patient was started on vancomycin and cefepime. 05/20/2019 Patient yesterday was hypotensive and tachypneic and she was saturating 93-97% on 3 L oxygen, staff concerned that her more fluid can compromise her resp function so patient was transferred to the intensive care unit, as per staff pt can not go to select unit. today is more awake and, however she is tachypneic with respiratory rate 22-25, blood pressure is improved to 114/70, she saturating 93-94% and is related to her, she had fever of 103.3 yesterday. Labs from today showing slight improvement in his WBC at 1.6K, hemoglobin improved to 6.7, platelets 3K. Sodium 136, creatinine normal at 0.7, sugar control. Patient remains in the ICU with on antibiotics in the form of vancomycin and cefepime is provided to the patient. Chest x-ray showing diffuse bilateral infiltrate with left pleural effusion, pneumonia versus pulmonary edema. 05/21/2019 pt is in the ICU, she is doing better , however she is still tachypenic, no chest pain or coughing , her blood culture is growing pseudomonas which is mostly related to her current sepsis , ID team already stopped vancomycin and increased the dose of cefepime, her cxr shows stable findings , source could be from port althought she has evidence of diverticulitis as well but her pain is not major in her belly , pt is still generally weak , pt is constipated rather than diarrhea, her pancytopenia is worse , no fever today , pt vitals remain stable. iv fluids were stopped . pt is felt stable to go to medical floor from yesterday however critical care team recommended to keep monitoring pt in icu for now 05/22/2019 pt is transferred to the general medical floor today , he breathing looks better , coughing and weakness are improving as well, no more abd pain and her LLQ tenderness improved as well. she is hemodynamically stable , labs shwoing improving leukocytes up to 1.2 , hb stable at 7.5 , platelet improved to 12k, pt has low grade fever yesterday night at 99.9, bp stable, pt developed rash on the trunk and mainly back and thought it is due to cefepime which is switched to aztreonam as per ID team. Patient has been taking care of by Dr. Cheung over the weekend and on a Sunday. 05/26/2019 Patient is seen in the general medical floor, she looks better, breathing more quiet with less respiratory distress. No chest pain. Occasional coughing. She remains on is aztreonam and Valacyclovir. Infectious disease R following the case closely. Her WBC is stable at 1.7, hemoglobin 7.5 and platelet 19. Discussed the case with oncology team. Patient could not work with PT/OT today and the proper way, whoever evaluated tomorrow We'll double check with infectious disease and oncology team about the discharge planning Discharge planning in 24-48 hours 05/27/2019 Patient clinically doing well, with her breathing is a stable. No chest pain. No dyspnea. Occasional coughing. Pancytopenia is worsened today with WBC down to 1.3, hemoglobin 6.9, platelets 8K, patient is getting been transfused blood and platelets. ID team recommended to continue with antibiotics aztreonam for 1 more week for her Pseudomonas infection. 05/28/2019 pt is still not cleared by oncology team , she is clinically the same or gradually improving , no new complaint , pt platelet are low again at 9k, and oncology team are planing for platelet transfusino , tomorrow she will get another dose of rituxan , will need 2 wks of aztreonam per ID 05/29/2019 Patient is awake with no chest pain or dyspnea. She has some abdominal discomfort. Vitals stable however she still have severe pancytopenia with WBC at 1.4, hemoglobin 7.5 and platelets 8, and absolute neutrophil is 0.1. rest of labs looked unremarkable. Patient is scheduled to get rituxan today or tomorrow by the hematology/oncology team. Patient might benefit from ECF upon discharge, discussed with social science research assistant, however patient did not want to discuss it with the instability today 05/30/2019 Patient is awake with no chest pain or dyspnea. Her cough is minimal. Hemodynamically she is a stable However yesterday she developed right lower abdominal and right flank pain with tenderness associated with hematuria. Surgical team is been consulted and CAT scan of the abdomen was done followed by ultrasound showing larger right kidney which is suspicious for pyelonephritis, less likely renal infarct for which urologist evaluated the patient. Patient most likely she has seeding bacteria from her infection into her right kidney. Patient currently remains on antibiotics by infectious disease recommendation. Patient currently denies aztreonam. Patient urinalysis is showing moderate hematuria with RBC is more than 182, but not suspicious for infection. Pain management is provided with Dilaudid. Other labs showing severe pancytopenia with WBC 1.0, hemoglobin 5.9, platelets count 18 K. 05/31/2019 Patient is awake with no chest pain or dyspnea. Cough is better. She still have same right sided abdominal pain. No dysuria. She has low-grade temperature today. As a Vitas looks within normal limits. Patient getting blood and platelet transfusion today for thrombocytopenia and anemia. Her WBCs today is 1.6, hemoglobin 6.5 and platelets were 18 K yesterday, not repeated platelets today. Potassium is 3.3 which is been replaced and creatinine 0.5, sugar is controlled. Patient rituxan is healthy now, possible total Sunday. 06/01/2019 Patient basically looks the same as yesterday. However she has several bouts of loose bowel movement. Laxative or stopped. Her abdominal pain in the right lower quadrant looks the same and she has occasional bowel spasms. No nausea vomiting. She is breathing quietly. Vitals are stable. Her WBCs is slightly improved to 1.7, hemoglobin at 7.1 and platelets at 15 K. She remains on aztreonam for now. 06/02/2019 Patient lying in bed, not in respiratory distress. No chest pain/she has right lower quadrant abdominal pain gradually improving. no new complaints. . She is hemodynamically stable. She still running fever of 100.2F today. She still have pancytopenia with WBC 1.3K, platelets 8K and hemoglobin is 7.2. The case with the hematology/oncology team, withholding chemotherapy. Patient will be afebrile for 48 hours. Patient remains on aztreonam for now as per ID recommendation. 06/03/2019 Patient's still have abdominal pain on the right side, little bit moved up. She starting diet well, she still have dry cough. She has no fever since yesterday night. Patient is getting blood and platelet transfusion today as her platelet count is 10 K and hemoglobin dropped to 6.7. WBC is 1.5K. Patient remains on antibiotics and with monitoring fever and signs of infection and sepsis. Objective - Vital Signs Vital signs: Vital Signs Temp 98.9 F 06/03/19 11:50 Pulse 84 06/03/19 11:50 Resp 20 06/03/19 11:50 BP 179/84 06/03/19 11:50 Pulse Ox 94 L 06/03/19 11:20 Intake & Output 06/02/19 06/03/19 06/03/19 18:59 06:59 18:59 Intake Total 2940 200 720 Output Total 500 2300 Balance 2440 -2100 720 Weight 97.7 kg 97.5 kg Intake: Intake, IV Titration 800 80 Amount Aztreonam 2 gm In Sodium 100 Chloride 0.9% 100 ml @ 100 mls/hr IVPB Q8H [facility] Rx#:[id number] Sodium Chloride 0.9% 500 600 80 ml 500 ml @ 20 mls/hr IV .Q24H [facility] Rx#:[id number] metroNIDAZOLE-NS PMX 500 100 mg In Saline 1 100ml.bag @ 100 mls/hr IVPB Q8HR [facility] Rx#:[id number] Oral 1940 120 720 Blood Product 200 0 Platelet Irr Pheresis 200 Acda1 Unit [id number] Rc Irr As1 Unit 0 [id number] Output: Urine 500 2300 Uretheral (Espinoza) 1300 Other: Voiding Method Indwelling Catheter Indwelling Catheter Indwelling Catheter # Voids 1 # Bowel Movements 1 - Exam -GENERAL: The patient is alert and oriented x3, not in any acute distress. Pale and weak HEENT: Pupils are round and equally reacting to light. EOMI. No scleral icterus. No conjunctival pallor. Normocephalic, atraumatic. No pharyngeal erythema. No thyromegaly. CARDIOVASCULAR: S1 and S2 present. No murmurs, rubs, or gallops. PULMONARY: Chest is clear to auscultation, no wheezing or crackles. -ABDOMEN: Soft,nondistended, normoactive bowel sounds. No palpable organomegaly. Right flank and lower quadrant tenderness with no rebound tenderness MUSCULOSKELETAL: No joint swelling or deformity. EXTREMITIES: No cyanosis, clubbing, or pedal edema. NEUROLOGICAL: Gross neurological examination did not reveal any focal deficits. SKIN: No rashes. - Labs CBC & Chem 7: 06/03/19 07:20 06/03/19 07:20 Labs: Abnormal Lab Results - Last 24 Hours (Table) 06/02/19 06/02/19 06/02/19 Range/Units 08:40 17:00 17:19 WBC (3.8-10.6) k/uL RBC (3.80-5.40) m/uL Hgb (11.4-16.0) gm/dL Hct (34.0-46.0) % Plt Count (150-450) k/uL Neutrophils # 0.1 L* (1.3-7.7) k/uL Sodium (137-145) mmol/L POC Glucose (mg/dL) 125 H (75-99) mg/dL Calcium (8.4-10.2) mg/dL Urine Protein 1+ H (Negative) Urine Blood Large H (Negative) Ur Leukocyte Esterase Trace H (Negative) Urine RBC >182 H (0-5) /hpf Urine WBC 6 H (0-5) /hpf Urine Mucus Occasional H (None) /hpf Crossmatch 06/02/19 06/03/19 06/03/19 Range/Units 20:11 06:52 07:20 WBC (3.8-10.6) k/uL RBC (3.80-5.40) m/uL Hgb (11.4-16.0) gm/dL Hct (34.0-46.0) % Plt Count (150-450) k/uL Neutrophils # (1.3-7.7) k/uL Sodium 135 L (137-145) mmol/L POC Glucose (mg/dL) 117 H 106 H (75-99) mg/dL Calcium 6.3 L* (8.4-10.2) mg/dL Urine Protein (Negative) Urine Blood (Negative) Ur Leukocyte Esterase (Negative) Urine RBC (0-5) /hpf Urine WBC (0-5) /hpf Urine Mucus (None) /hpf Crossmatch 06/03/19 06/03/19 06/03/19 Range/Units 07:20 09:19 11:16 WBC 1.5 L (3.8-10.6) k/uL RBC 2.24 L (3.80-5.40) m/uL Hgb 6.7 L* (11.4-16.0) gm/dL Hct 19.3 L* (34.0-46.0) % Plt Count 10 L* (150-450) k/uL Neutrophils # 0.1 L* (1.3-7.7) k/uL Sodium (137-145) mmol/L POC Glucose (mg/dL) 116 H (75-99) mg/dL Calcium (8.4-10.2) mg/dL Urine Protein (Negative) Urine Blood (Negative) Ur Leukocyte Esterase (Negative) Urine RBC (0-5) /hpf Urine WBC (0-5) /hpf Urine Mucus (None) /hpf Crossmatch See Detail Microbiology - Last 24 Hours (Table) 06/01/19 21:42 Blood Culture - Preliminary Blood No Growth after 24 hours 06/02/19 16:56 Urine Culture - Preliminary Urine,Catheterized Assessment and Plan Assessment: Pancytopenia Right kidney pyelonephritis, renal infarct is less likely. With hematuria sepsis secondary to speudomonas , mostly secondary to pneumonia. Improving sigmoid diverticulitis , resolved chronic stable pulmonary infiltrates Elevated lactic acid. Resolved Dehydration and generalized weakness Acute hypoxemic respiratory failure CLL With leukocytosis. on Therapy Recent history of acute lung injury, related to multiple blood/platelet transfusion, with possible pneumonia History of breast cancer in 2014 status post chemo/radiation and surgery. Currently on anastrozole Hypertension Hyperlipidemia Osteoarthritis Previous history of smoking DVT prophylaxis with SCDs Plan: This is a pleasant 73 years old female who presents with pancytopenia and review of her CLL or therapy, also she has multiple lung infiltrates. And recently right-sided pyelonephritis. Continue with IV antibiotics per recommendations from infectious disease team I discussed the case with oncology team, possible discharge in the coming few days however patient would benefit from subacute rehab, we'll ask for PT OT evaluation follow-up.abs and medication were reviewed.. Continue same treatment. Continue with symptomatic treatment. Resume home medication. Monitor lytes and vitals. DVT and GI prophylaxis. Further recommendations of the clinical course of the patient DVT prophylaxis: No anticoagulation in the view of low platelets GI Prophylaxis: Pepcid PT/OT: Pending Prognosis is guarded
[2019-06-03] MEDS ORDERED: IOPAMIDOL-300 CONTRAST 30 ML VIAL (ORAL USE) PO PRN (12:16)
--- NOTE | 2019-06-03 12:52 | P.PN ---
Subjective Progress Note Date: 06/03/19 Principal diagnosis: Pseudomonas bacteremia. Pancytopenia secondary to CLL, currently receiving monoclonal antibody therapy weekly-held, new pyelonephritis In f/u today pt had fever 101F last night, no sweats, slept fairly well, cough is a little better controlled with tessalon, nothing tastes good, denies nausea, ribs hurt from coughing, RLQ pain is very mild, she had a BM yesterday, denies any black or bloody stool. She has ambulated in room at least daily, been up in chair at least 1-2 times a day. Objective - Vital Signs Vital signs: Vital Signs Temp 98.9 F 06/03/19 11:50 Pulse 84 06/03/19 11:50 Resp 20 06/03/19 11:50 BP 179/84 06/03/19 11:50 Pulse Ox 94 L 06/03/19 11:20 Intake & Output 06/02/19 06/03/19 06/03/19 18:59 06:59 18:59 Intake Total 2940 200 720 Output Total 500 2300 Balance 2440 -2100 720 Weight 97.7 kg 97.5 kg Intake: Intake, IV Titration 800 80 Amount Aztreonam 2 gm In Sodium 100 Chloride 0.9% 100 ml @ 100 mls/hr IVPB Q8H [facility] Rx#:[id number] Sodium Chloride 0.9% 500 600 80 ml 500 ml @ 20 mls/hr IV .Q24H [facility] Rx#:[id number] metroNIDAZOLE-NS PMX 500 100 mg In Saline 1 100ml.bag @ 100 mls/hr IVPB Q8HR [facility] Rx#:[id number] Oral 1940 120 720 Blood Product 200 0 Platelet Irr Pheresis 200 Acda1 Unit [id number] Rc Irr As1 Unit 0 [id number] Output: Urine 500 2300 Uretheral (Espinoza) 1300 Other: Voiding Method Indwelling Catheter Indwelling Catheter Indwelling Catheter # Voids 1 # Bowel Movements 1 - Constitutional General appearance: Present: cooperative, no acute distress, obese - EENT Eyes: Present: anicteric sclerae, EOMI ENT: Present: hearing grossly normal, thrush (scant on tongue) - Respiratory Respiratory: bilateral: CTA - Cardiovascular Heart sounds: normal: S1, S2 - Peripheral edema leg Peripheral Edema: bilateral: None - Gastrointestinal Gastrointestinal Comment(s): RLQ is not warm to touch, mild discomfort with deep palpation General gastrointestinal: Present: normal bowel sounds, soft - Integumentary Integumentary: Present: pale - Neurologic Neurologic Comment(s): left eye ptosis Neurologic: Present: CNII-XII intact - Musculoskeletal Musculoskeletal: Present: generalized weakness, strength equal bilaterally - Psychiatric Psychiatric: Present: A&O x's 3, appropriate affect, intact judgment & insight - Labs CBC & Chem 7: 06/03/19 07:20 06/03/19 07:20 Labs: Abnormal Lab Results - Last 24 Hours (Table) 06/02/19 06/02/19 06/02/19 Range/Units 08:40 09:20 17:00 WBC (3.8-10.6) k/uL RBC (3.80-5.40) m/uL Hgb (11.4-16.0) gm/dL Hct (34.0-46.0) % Plt Count (150-450) k/uL Neutrophils # 0.1 L* (1.3-7.7) k/uL Sodium (137-145) mmol/L POC Glucose (mg/dL) (75-99) mg/dL Calcium (8.4-10.2) mg/dL Urine Protein 1+ H (Negative) Urine Blood Large H (Negative) Ur Leukocyte Esterase Trace H (Negative) Urine RBC >182 H (0-5) /hpf Urine WBC 6 H (0-5) /hpf Urine Mucus Occasional H (None) /hpf IgG 498.0 L (700.0-1600.0) mg/dL Crossmatch 06/02/19 06/02/19 06/03/19 Range/Units 17:19 20:11 06:52 WBC (3.8-10.6) k/uL RBC (3.80-5.40) m/uL Hgb (11.4-16.0) gm/dL Hct (34.0-46.0) % Plt Count (150-450) k/uL Neutrophils # (1.3-7.7) k/uL Sodium (137-145) mmol/L POC Glucose (mg/dL) 125 H 117 H 106 H (75-99) mg/dL Calcium (8.4-10.2) mg/dL Urine Protein (Negative) Urine Blood (Negative) Ur Leukocyte Esterase (Negative) Urine RBC (0-5) /hpf Urine WBC (0-5) /hpf Urine Mucus (None) /hpf IgG (700.0-1600.0) mg/dL Crossmatch 06/03/19 06/03/19 06/03/19 Range/Units 07:20 07:20 09:19 WBC 1.5 L (3.8-10.6) k/uL RBC 2.24 L (3.80-5.40) m/uL Hgb 6.7 L* (11.4-16.0) gm/dL Hct 19.3 L* (34.0-46.0) % Plt Count 10 L* (150-450) k/uL Neutrophils # 0.1 L* (1.3-7.7) k/uL Sodium 135 L (137-145) mmol/L POC Glucose (mg/dL) (75-99) mg/dL Calcium 6.3 L* (8.4-10.2) mg/dL Urine Protein (Negative) Urine Blood (Negative) Ur Leukocyte Esterase (Negative) Urine RBC (0-5) /hpf Urine WBC (0-5) /hpf Urine Mucus (None) /hpf IgG (700.0-1600.0) mg/dL Crossmatch See Detail 06/03/19 Range/Units 11:16 WBC (3.8-10.6) k/uL RBC (3.80-5.40) m/uL Hgb (11.4-16.0) gm/dL Hct (34.0-46.0) % Plt Count (150-450) k/uL Neutrophils # (1.3-7.7) k/uL Sodium (137-145) mmol/L POC Glucose (mg/dL) 116 H (75-99) mg/dL Calcium (8.4-10.2) mg/dL Urine Protein (Negative) Urine Blood (Negative) Ur Leukocyte Esterase (Negative) Urine RBC (0-5) /hpf Urine WBC (0-5) /hpf Urine Mucus (None) /hpf IgG (700.0-1600.0) mg/dL Crossmatch Microbiology - Last 24 Hours (Table) 06/01/19 21:42 Blood Culture - Preliminary Blood No Growth after 24 hours 06/02/19 16:56 Urine Culture - Preliminary Urine,Catheterized Assessment and Plan (1) Abdominal pain Narrative/Plan: Improved with antibiotics. We are working with ID. CT abdomen ordered for re-evaluation of the right kidney Current Visit: Yes Status: Acute Priority: High Code(s): R10.9 - UNSPECI FIED ABDOMINAL PAIN SNOMED Code(s): 88006350 (2) Bacteremia due to Pseudomonas Current Visit: Yes Status: Resolved Priority: High Code(s): R78.81 - B ACTEREMIA SNOMED Code(s): 939545580376 (3) CLL (chronic lymphocytic leukemia) Narrative/Plan: Dr. Oliva has discussed with pt and family that chemotherapy added to MAb treatment is the recommendation to get the full response and recovery of counts. Pt is aware of risks vs benefits of receiving chemotherapy. She does want to proceed as soon as possible. Pending discussion with ID and results of CT to plan for treatment. Current Visit: Yes Status: Chronic Priority: High Code(s): C91.90 - LYMPHOID LEUKEMIA, UNSPECIFIED NOT HAVING ACHIEVED REMISSION SNOMED Code(s): 62316321 (4) Pancytopenia Narrative/Plan: Secondary to disease Transfuse for hemoglobin less than 7 today. Transfuse for a platelet count less than 10,000 or symptomatic-hematuria today, platelets ordered. No aspirin, NSAIDs, anticoagulation. Continue G-CSF for an absolute neutrophil count less than 1000. Have contacted pharmacy. Trying to obtain IVIG on an emergent basis. IgG level ordered. Current Visit: Yes Status: Acute Priority: High Code(s): D61.818 - OTHER PANCYTOPENIA SNOMED Code(s): 708094797 (5) Constipation Current Visit: Yes Status: Resolved Priority: High Code(s): K59.00 - CONSTIPATION, UNSPECIFIED SNOMED Code(s): 74380391 (6) Moderate protein-calorie malnutrition Narrative/Plan: Patient has a very poor appetite. Consult Dietitian for recommendations. May have to consider an appetite stimulant. Current Visit: Yes Status: Acute Priority: High Code(s): E44.0 - MODERATE PROTEIN-CALORIE MALNUTRITION SNOMED Code(s): 488364186 (7) Physical debility Narrative/Plan: PT/OT. Encouraged out of bed Continue with Robitussin. Tessalon Pearles added with pt stating some improvement. Current Visit: Yes Status: Acute Priority: High Code(s): R53.81 - OTHER MALAISE SNOMED Code(s): 85677906
[2019-06-03] MEDS: amLODIPine 5 MG TAB PO SCH (13:21)
[2019-06-03] MEDS: ACETAMINOPHEN TAB 325 MG TAB PO PRN ×2 (13:21→20:51)
--- NOTE | 2019-06-03 17:14 | CT ---
EXAMINATION TYPE: CT abdomen pelvis wo con DATE OF EXAM: 06/03/2019 COMPARISON: CT abdomen 05/29/2019 and abdomen/pelvis 05/19/2019 HISTORY: 73-year-old female abdominal pain, diarrhea. Evaluate status of right kidney, possible polyn ephritis. Patient with hematologic malignancy and low platelets. CT DLP: 1064 mGycm. Automated exposure control for dose reduction was used. TECHNIQUE: Contiguous axial scanning of the abdomen and pelvis without IV contrast. Coronal and sagit bushra reconstructions performed. FINDINGS: Heart upper limits of normal in size without pericardial effusion. Coronary vessel calcifications. Re latively low density of the blood pool can be seen in the setting of anemia. Small to moderate effusions are present with patchy atelectasis in the lower lungs. Effusions have pr ogressed from 05/29/2019. Noncontrast appearance of the liver, adrenal glands, left kidney, spleen with posterior splenules, an d pancreas show no gross anomaly. The gallbladder is mildly distended measuring 4.6 cm wide with gallstones measuring up to 1.6 cm. Redemonstrated abnormal enlargement of the right kidney with heterogeneous mixed density especially a round the peripheral substance of the right kidney. A right lateral cortical cyst was present on the 05/19/2019 study and is also located laterally. The kidney currently measures 13.2 cm craniocaudal vers us 12.6 cm craniocaudal on 05/29/2019. New mild perihepatic ascites. No dilated small bowel or free air. There is redemonstrated left-sided colonic diverticulosis with persistent focal wall thickening along the mid sigmoid colon and surrounding inflammatory fat stranding. New mild to moderate pelvic ascite s and prominent presacral edema There is mottled air collection along the superior margin of the previously seen site of diverticulit is measuring 2.0 cm wide and 3.4 cm AP. Refer to axial images 69 and sagittal image 44. Tiny adjacent locule of air is noted, refer to axial image 66. Uterus is retroverted. Bladder is decompressed with Espinoza catheter in place. Intraluminal bladder air likely related to instrumentation. Multiple pelvic phleboliths. Bones: Surgical material along the pubic rami. Facet arthropathy and degenerative disc disease lumbar spine. IMPRESSION: 1. Persistent acute diverticulitis at the mid sigmoid colon with some interval progression. There is now mild to moderate pelvic free fluid, mild perihepatic ascites, and increasing inflammation in the pelvis. 2. A small local perforation is suggested given a tiny locule of extraluminal air. There is also inte rval development of a 3.4 x 2.0 cm intramural abscess along the superior aspect of the mid sigmoid co tai. 3. Redemonstrated mixed density enlargement of the right kidney. The kidney shows slight increase in size from 05/29/2019, measuring 13.2 cm now versus 12.6 cm, previously. Suspect intraparenchymal hemor rhage throughout the right kidney rather than pyelonephritis. Clinically correlate. 4. Increasing small to moderate bilateral pleural effusions. 5. Cholelithiasis with mildly hydropic gallbladder. The hydropic change may relate to fasting state. If right upper quadrant pain or concern for early acute cholecystitis, follow-up ultrasound or HIDA s can. Preliminary impression of persistent acute diverticulitis and concern for intraparenchymal renal hemo rrhage rather than pyelonephritis was discussed with Dr. Zavala at the workstation at approximately 4: 45 PM.
[2019-06-03 17:30] LABS: Glucose,Whole Blood 114 mg/dL (75-99)
--- NOTE | 2019-06-03 19:12 | P.PN ---
Subjective Progress Note Date: 06/03/19 I was asked to reevaluate the patient based on findings of repeat CT scan performed today. The scan was ordered to reevaluate the abnormality on her right kidney. The patient herself has been having less abdominal pain. She did have some slight nausea this morning. Otherwise had been able to tolerate a diet. She has not had much of an appetite this admission. No vomiting. The patient also has developed watery stools. Stool for C. diff was ordered and was negative. The patient is on MiraLAX due to constipation. She denies any left lower quadrant pain. Denies pain with the diarrhea. No prior episodes of diverticulitis. Objective - Vital Signs Vital signs: Vital Signs Temp 99.3 F 06/03/19 13:19 Pulse 82 06/03/19 16:08 Resp 20 06/03/19 14:14 BP 168/79 06/03/19 16:08 Pulse Ox 95 06/03/19 13:19 Intake & Output 06/02/19 06/03/19 06/03/19 18:59 06:59 18:59 Intake Total 2940 200 2660 Output Total 500 2300 1600 Balance 2440 -2100 1060 Weight 97.7 kg 97.5 kg Intake: Intake, IV Titration 800 80 320 Amount Aztreonam 2 gm In Sodium 100 100 Chloride 0.9% 100 ml @ 100 mls/hr IVPB Q8H [facility] Rx#:[id number] Sodium Chloride 0.9% 1, 120 000 ml @ 0 mls/hr IV .STK -[facility] Rx#:[id number] Sodium Chloride 0.9% 500 600 80 ml 500 ml @ 20 mls/hr IV .Q24H [facility] Rx#:[id number] metroNIDAZOLE-NS PMX 500 100 100 mg In Saline 1 100ml.bag @ 100 mls/hr IVPB Q8HR [facility] Rx#:[id number] Oral 8266 531 1999 Blood Product 200 620 Platelet Irr Pheresis 200 Acda1 Unit [id number] Rc Irr As1 Unit 310 [id number] Output: Urine 500 2300 1600 Uretheral (Espinoza) 1300 Other: Voiding Method Indwelling Catheter Indwelling Catheter Indwelling Catheter # Voids 1 1 # Bowel Movements 1 - Constitutional Constitutional Comment(s): Appears chronically ill, no acute distress, General appearance: Present: cooperative, no acute distress - EENT ENT: Present: hearing grossly normal - Respiratory Respiratory: bilateral: CTA, diminished (At the bases) - Cardiovascular Rhythm: regular - Gastrointestinal Gastrointestinal Comment(s): No significant tenderness. Seems to be much less tender than when she was evaluated last week. No guarding or rebound. The left lower quadrant and suprapubic area are deeply palpated without discomfort. General gastrointestinal: Present: normal bowel sounds, soft - Labs CBC & Chem 7: 06/03/19 07:20 06/03/19 07:20 Labs: Abnormal Lab Results - Last 24 Hours (Table) 06/02/19 06/02/19 06/03/19 Range/Units 09:20 20:11 06:52 WBC (3.8-10.6) k/uL RBC (3.80-5.40) m/uL Hgb (11.4-16.0) gm/dL Hct (34.0-46.0) % Plt Count (150-450) k/uL Neutrophils # (1.3-7.7) k/uL Sodium (137-145) mmol/L POC Glucose (mg/dL) 117 H 106 H (75-99) mg/dL Calcium (8.4-10.2) mg/dL IgG 498.0 L (700.0-1600.0) mg/dL Crossmatch 06/03/19 06/03/19 06/03/19 Range/Units 07:20 07:20 09:19 WBC 1.5 L (3.8-10.6) k/uL RBC 2.24 L (3.80-5.40) m/uL Hgb 6.7 L* (11.4-16.0) gm/dL Hct 19.3 L* (34.0-46.0) % Plt Count 10 L* (150-450) k/uL Neutrophils # 0.1 L* (1.3-7.7) k/uL Sodium 135 L (137-145) mmol/L POC Glucose (mg/dL) (75-99) mg/dL Calcium 6.3 L* (8.4-10.2) mg/dL IgG (700.0-1600.0) mg/dL Crossmatch See Detail 06/03/19 06/03/19 Range/Units 11:16 17:28 WBC (3.8-10.6) k/uL RBC (3.80-5.40) m/uL Hgb (11.4-16.0) gm/dL Hct (34.0-46.0) % Plt Count (150-450) k/uL Neutrophils # (1.3-7.7) k/uL Sodium (137-145) mmol/L POC Glucose (mg/dL) 116 H 114 H (75-99) mg/dL Calcium (8.4-10.2) mg/dL IgG (700.0-1600.0) mg/dL Crossmatch Microbiology - Last 24 Hours (Table) 06/02/19 16:56 Urine Culture - Final Urine,Catheterized 06/01/19 21:42 Blood Culture - Preliminary Blood No Growth after 24 hours - Imaging and Cardiology CT scan - abdomen: report reviewed, image reviewed (Personally reviewed the computed tomography scan. There seems to be a large fluid collection between the capsule and parenchyma of the right kidney. Bilateral pleural effusions. Small amount of free fluid along the right hepatic space and in the pelvis. There is thickening of the sigmoid colon with possible microperforation. I reviewed the prior computed tomography scan. They did not image down as far on the sigmoid colon. Therefore not able to say whether this area is stable from last exam or a new finding) Assessment and Plan (1) Abnormal CT scan, kidney Current Visit: Yes Status: Acute Code(s): R93.429 - ABNORMAL RADIOLOGIC FINDINGS ON DX IMAGING OF UNSP KIDNEY SNOMED Code(s): 167654899 (2) Bacteremia due to Pseudomonas Current Visit: Yes Status: Resolved Priority: High Code(s): R78.81 - BACTEREMIA SNOMED Code(s): 804645738653 (3) Pancytopenia Current Visit: Yes Status: Acute Priority: High Code(s): D61.818 - OTHER PANCYTOPENIA SNOMED Code(s): 702120301 (4) CLL (chronic lymphocytic leukemia) Current Visit: Yes Status: Chronic Priority: High Code(s): C91.90 - LYMPHOID LEUKEMIA, UNSPECIFIED NOT HAVING ACHIEVED REMISSION SNOMED Code(s): 09378952 (5) Diverticulitis Current Visit: Yes Status: Acute Code(s): K57.92 - DVTRCLI OF INTEST, PART UNSP, W/O PERF OR ABSCESS W/O BLEED SNOMED Code(s): 001366433 (6) Gross hematuria Current Visit: Yes Status: Acute Code(s): R31.0 - GROSS HEMATURIA SNOMED Code(s): 283219407 (7) Diarrhea Current Visit: Yes Status: Acute Code(s): R19.7 - DIARRHEA, UNSPECIFIED SNOMED Code(s): 98468538 Plan: There are changes of the sigmoid consistent with diverticulitis. Recommend continuation of the IV antibiotics. Antibiotics can be reviewed by infectious diseases to see whether this needs to be adjusted. Currently the patient has no signs of an acute surgical abdomen. Continue supportive care.
--- NOTE | 2019-06-03 19:44 | PN ---
PROGRESS NOTE DATE OF SERVICE: 06/03/2019 REASON FOR FOLLOWUP: Pseudomonas bacteremia, question of right-sided pyelonephritis and diverticulitis. INTERVAL HISTORY: The patient is currently afebrile. Last temperature was last evening of 101 degrees Fahrenheit. No fever since then. The patient's abdominal pain is currently controlled with pain medication. No nausea. No vomiting. No chest pain, shortness of breath or cough. Did have diarrhea, though no worsening. PHYSICAL EXAMINATION: Blood pressure 168/79 with a pulse of 82, temperature 99.3. She is 95% on room air. General description is an elderly female lying in bed in no distress. RESPIRATORY SYSTEM: Unlabored breathing. Clear to auscultation anteriorly. HEART: S1, S2. Regular rate and rhythm. ABDOMEN: Soft. No guarding. No rigidity. EXTREMITIES: Some trace edema of the feet. LABS: Hemoglobin is 6.7, white count 1.5. Platelet count is 10 with a BUN of 14, creatinine 0.55. Blood culture from 06/01 has been negative. Urine culture from 06/02 so far pending. DIAGNOSTIC IMPRESSION AND PLAN: Patient with febrile neutropenia. The patient did have pseudomonas bacteremia on 05/19. The patient's blood cultures have been negative since then. Patient's workup concerning for possible pneumonia or diverticulitis, and the patient has been on IV antibiotic in the form of Azactam and Flagyl. There was a question of possible right- sided pyelonephritis. The patient did have a repeat CT done today which was reviewed with the radiologist, Dr. Banuelos, who is concerned about possible renal parenchymal hemorrhage rather than pyelonephritis, which could go along with her clinical picture of pancytopenia and significant thrombocytopenia. There was some concern about possible diverticulitis, with no evidence of any abscess formation. I had a detailed discussion with the patient's oncologist, who has recommended chemo for her underlying significant pancytopenia. Apparently the patient seems to be agreeable to that. The patient has been on IV antibiotic for almost 2 weeks now. No risk of with any chemo. However, at this point the benefit outweighs the risk of chemo, and the patient will be monitored closely. Continue the Azactam and Flagyl. Prognosis remains guarded. MMODL / IJN: [id number] /
[2019-06-03 20:10] LABS: Glucose,Whole Blood 123 mg/dL (75-99)
[2019-06-03] MEDS: ATORVASTATIN 40 MG TAB PO SCH (20:50)
[2019-06-04 00:07] LABS: Glucose,Whole Blood 130 mg/dL (75-99)
[2019-06-04] MEDS: metroNIDAZOLE-NS PMX 500 MG in SALINE 1 100ML.BAG IVPB SCH ×2 (00:56→08:49)
[2019-06-04 01:15] LABS: Appearance,Urine Clear (Clear); Bacteria,Urine Rare /hpf; Bilirubin,Urine Negative (Negative); Blood,Urine Large (Negative); Budding Yeast,Urine Many /hpf; Color,Urine Yellow; Glucose,Urine (UA) Negative (Negative); Hyaline Casts,Urine 1 /lpf (0-2); Ketones,Urine 1+ (Negative); Leukocyte Esterase,Urine Trace (Negative); Mucus,Urine Rare /hpf; Nitrite,Urine Negative (Negative); Protein,Urine 2+ (Negative); RBC,Urine >182 /hpf (0-5); Specific Gravity,Urine 1.021 (1.001-1.035); Squamous Epithelial Cell,Urine 2 /hpf (0-4); WBC,Urine 5 /hpf (0-5)
[2019-06-04] MEDS: AZTREONAM 2 GM in SODIUM CHLORIDE 0.9% 100 ML IVPB SCH ×3 (06:17→23:08)
[2019-06-04] MEDS: SODIUM CHLORIDE 0.9% 500 ML 500 ML IV SCH (06:18)
[2019-06-04 07:04] LABS: Glucose,Whole Blood 110 mg/dL (75-99)
[2019-06-04] MEDS: INSULIN ASPART (NovoLOG) 100 UNIT/ML VIAL SQ SCH ×4 (07:47→21:10)
[2019-06-04 08:06] LABS: Basophils % (A) 0 %; Eosinophils % (A) 1 %; Lymphocytes # (A) 1.1 k/uL (1.0-4.8); Lymphocytes % (A) 86 %; MCH 28.5 pg (25.0-35.0); MCV 86.3 fL (80.0-100.0); Mean Platelet Volume 7.5; Monocytes % (A) 1 %; Neutrophils % (A) 11 %; RDW 13.4 % (11.5-15.5)
[2019-06-04 08:11] LABS: WBC 1.2 k/uL (3.8-10.6)
[2019-06-04 08:12] LABS: HCT 19.9 % (34.0-46.0); HGB 6.6 gm/dL (11.4-16.0)
[2019-06-04 08:14] LABS: Neutrophils # (A) 0.1 k/uL (1.3-7.7); Platelet Count 11 k/uL (150-450)
[2019-06-04 08:24] LABS: AST 17 U/L (14-36); African American GFR (CKD) >90 (>60 ml/min/1.73 sqM); Albumin 2.3 g/dL (3.5-5.0); Anion Gap 7 mmol/L; Blood Urea Nitrogen 16 mg/dL (7-17); Carbon Dioxide 22 mmol/L (22-30); Chloride 106 mmol/L (98-107); Glucose 101 mg/dL (74-99); Potassium 3.3 mmol/L (3.5-5.1); Sodium 135 mmol/L (137-145); Total Bilirubin 0.8 mg/dL (0.2-1.3); Total Protein 4.2 g/dL (6.3-8.2)
[2019-06-04 08:25] LABS: ALT 33 U/L (9-52); Alkaline Phosphatase 50 U/L (38-126); Bilirubin, Delta 0.4 mg/dL (0.0-0.2); Bilirubin,Unconjugated 0.4 mg/dL (0.0-1.1); Magnesium 1.6 mg/dL (1.6-2.3)
[2019-06-04 08:35] LABS: Calcium 6.1 mg/dL (8.4-10.2)
[2019-06-04] MEDS ORDERED: CALCIUM GLUCONATE 1 GM in SODIUM CHLORIDE 0.9% 100 ML IVPB ONE (08:38)
[2019-06-04] MEDS: PANTOPRAZOLE 40 MG TABLET PO SCH ×2 (08:48→18:26)
[2019-06-04] MEDS: amLODIPine 5 MG TAB PO SCH (08:49)
[2019-06-04] MEDS: BENZONATATE 100 MG CAP PO SCH ×3 (08:49→21:11)
[2019-06-04] MEDS: ALLOPURINOL 300 MG TAB PO SCH (08:49)
[2019-06-04] MEDS: POLYETHYLENE GLYCOL 3350 17 GM POWD.PACK PO SCH (08:50)
[2019-06-04] MEDS: valACYclovir HCL 1,000 MG TABLET PO SCH ×2 (08:50→20:27)
[2019-06-04] MEDS: SENNOSIDES-DOCUSATE SODIUM 1 EACH TAB PO SCH ×2 (08:50→19:41)
[2019-06-04] MEDS: FILGRASTIM-SNDZ 480 MCG/0.8 ML SYRINGE SQ SCH (08:57)
[2019-06-04] MEDS: HYDROmorphone 0.5 MG/0.5 ML SYRINGE IVP PRN ×3 (09:06→20:27)
[2019-06-04 11:20] LABS: Glucose,Whole Blood 126 mg/dL (75-99)
--- NOTE | 2019-06-04 11:34 | P.PN ---
Subjective Progress Note Date: 06/04/19 Principal diagnosis: Pseudomonas bacteremia. Pancytopenia secondary to CLL, currently receiving monoclonal antibody therapy weekly-held Pt feeling ok today, no acute c/o, progressive abd pain, cont to have weakness, decreased activity tolerance, dry cough with activity, no hemoptysis, purulent sputum. She had fever with PRBC transfusion last night, no fever since. Objective - Vital Signs Vital signs: Vital Signs Temp 97.8 F 06/04/19 05:00 Pulse 95 06/04/19 05:00 Resp 20 06/04/19 05:00 BP 143/70 06/04/19 05:00 Pulse Ox 98 06/04/19 05:00 Intake & Output 06/03/19 06/04/19 06/04/19 18:59 06:59 18:59 Intake Total 2660 536 Output Total 1600 700 Balance 1060 -164 Weight 98.5 kg Intake: Intake, IV Titration 320 480 Amount Aztreonam 2 gm In Sodium 100 200 Chloride 0.9% 100 ml @ 100 mls/hr IVPB Q8H [facility] Rx#:[id number] Sodium Chloride 0.9% 1, 120 120 000 ml @ 0 mls/hr IV .STK [facility] Rx#:[id number] Sodium Chloride 0.9% 500 60 ml 500 ml @ 20 mls/hr IV .Q24H [facility] Rx#:[id number] metroNIDAZOLE-NS PMX 500 100 100 mg In Saline 1 100ml.bag @ 100 mls/hr IVPB Q8HR [facility] Rx#:[id number] Oral 1720 Blood Product 620 56 Platelet Irr Pheresis 56 Acda1 Unit [id number] Rc Irr As1 Unit 310 [id number] Output: Urine 1600 700 Uretheral (Espinoza) 700 Other: Voiding Method Indwelling Catheter Indwelling Catheter Indwelling Catheter # Voids 1 # Bowel Movements 1 - Constitutional General appearance: Present: cooperative, no acute distress, obese - EENT Eyes: Present: anicteric sclerae ENT: Present: hearing grossly normal - Respiratory Respiratory: bilateral: diminished (bases) - Cardiovascular Heart sounds: normal: S1, S2 - Peripheral edema leg Peripheral Edema: bilateral: None - Gastrointestinal General gastrointestinal: Present: normal bowel sounds, soft Localized gastrointestinal: tender: RUQ (mild), RLQ (mild) - Neurologic Neurologic Comment(s): left eye ptosis Neurologic: Present: CNII-XII intact - Musculoskeletal Musculoskeletal: Present: generalized weakness - Psychiatric Psychiatric: Present: A&O x's 3, appropriate affect, intact judgment & insight - Labs CBC & Chem 7: 06/04/19 07:20 06/04/19 07:20 Labs: Abnormal Lab Results - Last 24 Hours (Table) 06/02/19 06/03/19 06/03/19 Range/Units 09:20 09:19 11:16 WBC (3.8-10.6) k/uL RBC (3.80-5.40) m/uL Hgb (11.4-16.0) gm/dL Hct (34.0-46.0) % Plt Count (150-450) k/uL Neutrophils # (1.3-7.7) k/uL Sodium (137-145) mmol/L Potassium (3.5-5.1) mmol/L Glucose (74-99) mg/dL POC Glucose (mg/dL) 116 H (75-99) mg/dL Calcium (8.4-10.2) mg/dL Delta Bilirubin (0.0-0.2) mg/dL Total Protein (6.3-8.2) g/dL Albumin (3.5-5.0) g/dL Urine Protein (Negative) Urine Ketones (Negative) Urine Blood (Negative) Ur Leukocyte Esterase (Negative) Urine RBC (0-5) /hpf Urine Bacteria (None) /hpf Urine Mucus (None) /hpf Urine Yeast (Budding) (None) /hpf IgG 498.0 L (700.0-1600.0) mg/dL Crossmatch See Detail 06/03/19 06/03/19 06/04/19 Range/Units 17:28 20:09 00:05 WBC (3.8-10.6) k/uL RBC (3.80-5.40) m/uL Hgb (11.4-16.0) gm/dL Hct (34.0-46.0) % Plt Count (150-450) k/uL Neutrophils # (1.3-7.7) k/uL Sodium (137-145) mmol/L Potassium (3.5-5.1) mmol/L Glucose (74-99) mg/dL POC Glucose (mg/dL) 114 H 123 H 130 H (75-99) mg/dL Calcium (8.4-10.2) mg/dL Delta Bilirubin (0.0-0.2) mg/dL Total Protein (6.3-8.2) g/dL Albumin (3.5-5.0) g/dL Urine Protein (Negative) Urine Ketones (Negative) Urine Blood (Negative) Ur Leukocyte Esterase (Negative) Urine RBC (0-5) /hpf Urine Bacteria (None) /hpf Urine Mucus (None) /hpf Urine Yeast (Budding) (None) /hpf IgG (700.0-1600.0) mg/dL Crossmatch 06/04/19 06/04/19 06/04/19 Range/Units 00:30 07:03 07:20 WBC 1.2 L* (3.8-10.6) k/uL RBC 2.30 L (3.80-5.40) m/uL Hgb 6.6 L* (11.4-16.0) gm/dL Hct 19.9 L* (34.0-46.0) % Plt Count 11 L* (150-450) k/uL Neutrophils # 0.1 L* (1.3-7.7) k/uL Sodium (137-145) mmol/L Potassium (3.5-5.1) mmol/L Glucose (74-99) mg/dL POC Glucose (mg/dL) 110 H (75-99) mg/dL Calcium (8.4-10.2) mg/dL Delta Bilirubin (0.0-0.2) mg/dL Total Protein (6.3-8.2) g/dL Albumin (3.5-5.0) g/dL Urine Protein 2+ H (Negative) Urine Ketones 1+ H (Negative) Urine Blood Large H (Negative) Ur Leukocyte Esterase Trace H (Negative) Urine RBC >182 H (0-5) /hpf Urine Bacteria Rare H (None) /hpf Urine Mucus Rare H (None) /hpf Urine Yeast (Budding) Many H (None) /hpf IgG (700.0-1600.0) mg/dL Crossmatch 06/04/19 Range/Units 07:20 WBC (3.8-10.6) k/uL RBC (3.80-5.40) m/uL Hgb (11.4-16.0) gm/dL Hct (34.0-46.0) % Plt Count (150-450) k/uL Neutrophils # (1.3-7.7) k/uL Sodium 135 L (137-145) mmol/L Potassium 3.3 L (3.5-5.1) mmol/L Glucose 101 H (74-99) mg/dL POC Glucose (mg/dL) (75-99) mg/dL Calcium 6.1 L* (8.4-10.2) mg/dL Delta Bilirubin 0.4 H (0.0-0.2) mg/dL Total Protein 4.2 L (6.3-8.2) g/dL Albumin 2.3 L (3.5-5.0) g/dL Urine Protein (Negative) Urine Ketones (Negative) Urine Blood (Negative) Ur Leukocyte Esterase (Negative) Urine RBC (0-5) /hpf Urine Bacteria (None) /hpf Urine Mucus (None) /hpf Urine Yeast (Budding) (None) /hpf IgG (700.0-1600.0) mg/dL Crossmatch Microbiology - Last 24 Hours (Table) 06/01/19 21:42 Blood Culture - Preliminary Blood No Growth after 48 hours 06/02/19 16:56 Urine Culture - Final Urine,Catheterized Assessment and Plan (1) Abdominal pain Narrative/Plan: Improved today. Pending CT comparison. Current Visit: Yes Status: Acute Priority: High Code(s): R10.9 - UNSPECIFIED ABDOMINAL PAIN SNOMED Code(s): 21597827 (2) Pancytopenia Narrative/Plan: Secondary to disease Transfuse for hemoglobin less than 7 today. Transfuse for a platelet count less than 10,000 or symptomatic. No aspirin, NSAIDs, anticoagulation. Continue G-CSF for an absolute neutrophil count less than 1000. IgG level <500. Current Visit: Yes Status: Acute Priority: High Code(s): D61.818 - OTHER PANCYTOPENIA SNOMED Code(s): 386399806 (3) Moderate protein-calorie malnutrition Narrative/Plan: There is discussion of TPN to be administered during treatment if there is need for NPO status. Pending CT from today. Current Visit: Yes Status: Acute Priority: High Code(s): E44.0 - MODERATE PROTEIN-CALORIE MALNUTRITION SNOMED Code(s): 826038917 (4) Physical debility Narrative/Plan: PT/OT. Encouraged out of bed-with assistance due to low counts Current Visit: Yes Status: Acute Priority: High Code(s): R53.81 - OTHER MALAISE SNOMED Code(s): 80290243 (5) Hypogammaglobulinemia Narrative/Plan: Trying to get IVIg-nationwide shortage. Pharmacy was able to get a 20mg dose! Will be administered Current Visit: Yes Status: Acute Priority: High Code(s): D80.1 - NONFAMILIAL HYPOGAMMAGLOBULINEMIA SNOMED Code(s): 375797885 (6) CLL (chronic lymphocytic leukemia) Narrative/Plan: Dr. Oliva has discussed with pt and family that chemotherapy added to MAb treatment is the recommendation to get the full response and recovery of counts. Pt is aware of risks vs benefits of receiving chemotherapy. She does want to proceed as soon as possible. Surgical note reviewed and evaluation appreciated. Currently collaboration between ID, Dr. Oliva, pending CT from today for how plan of care is going to proceed Current Visit: Yes Status: Chronic Priority: High Code(s): C91.90 - LYMPHOID LEUKEMIA, UNSPECIFIED NOT HAVING ACHIEVED REMISSION SNOMED Code(s): 40366677 (7) Constipation Current Visit: Yes Status: Resolved Priority: High Code(s): K59.00 - CONSTIPATION, UNSPECIFIED SNOMED Code(s): 82275995 (8) Bacteremia due to Pseudomonas Current Visit: Yes Status: Resolved Priority: High Code(s): R78.81 - BACTEREMIA SNOMED Code(s): 667486551951 Plan: Doctor attests: I performed a history and physical examination of this patient, developed impression and plan of care. Discussed with dictator. I agree with dictators note, documented as a scribe.
[2019-06-04] MEDS ORDERED: IMMUNE GLOBULIN IV ONE (12:00)
--- NOTE | 2019-06-04 12:19 | P.PN ---
Subjective this Is a 73-year-old female with a known history of hypertension, hyperlipidemia and CLL and history of breast cancer in 2014 status post chemoradiation and surgery who is currently being treated for CLL with imatinab and is on follow-up with Dr. Oliva as an outpatient was sent to Hospital due to thrombocytopenia. Next a 2 been discharged from the hospital she got platelet and blood transfusion at hematology office, however patient was developing diarrhea about 3 times per day with no significant abdominal pain for about one week, associated with generalized weakness and malaise and dry cough for 3 days with no significant dyspnea or chest pain. Patient went for her hematology office follow-up today and her blood work showed slow platelet count and patient was sent to the hospital. Also on the hospital patient was put back on oxygen, she was discharged on room air last time. Patient was recently discharged from hospital 4 days ago for acute lung injury and possible pneumonia, related to multiple blood/platelet transfusion and was treated in the ICU, after stabilization she was discharged. Also at that time patient has pancytopenia, and the discharge age her white cell count was 11.7 K, hemoglobin 8.1 and platelet 18 K. This time hematology oncology team send the patient to emergency room for pancytopenia with WBC 3.0K, hemoglobin 6.6 and platelet 2K. INR is 1.0, potassium of 3.1, creatinine 0.9, and lactic acid is elevated at 2.3. On admission patient has been afebrile, Restoril Vitas looks stable, she was saturating 87-88% on room air, saturation went up to 96 and 3 L. Chest x-ray: Showing cardiomegaly with bilateral multifocal infiltrates. Patient is getting IV fluids at 100 L/h, also she supposed to get platelets and blood transfusion today, discussed with staff. Also patient was started on vancomycin and cefepime. 05/20/2019 Patient yesterday was hypotensive and tachypneic and she was saturating 93-97% on 3 L oxygen, staff concerned that her more fluid can compromise her resp function so patient was transferred to the intensive care unit, as per staff pt can not go to select unit. today is more awake and, however she is tachypneic with respiratory rate 22-25, blood pressure is improved to 114/70, she saturating 93-94% and is related to her, she had fever of 103.3 yesterday. Labs from today showing slight improvement in his WBC at 1.6K, hemoglobin improved to 6.7, platelets 3K. Sodium 136, creatinine normal at 0.7, sugar control. Patient remains in the ICU with on antibiotics in the form of vancomycin and cefepime is provided to the patient. Chest x-ray showing diffuse bilateral infiltrate with left pleural effusion, pneumonia versus pulmonary edema. 05/21/2019 pt is in the ICU, she is doing better , however she is still tachypenic, no chest pain or coughing , her blood culture is growing pseudomonas which is mostly related to her current sepsis , ID team already stopped vancomycin and increased the dose of cefepime, her cxr shows stable findings , source could be from port althought she has evidence of diverticulitis as well but her pain is not major in her belly , pt is still generally weak , pt is constipated rather than diarrhea, her pancytopenia is worse , no fever today , pt vitals remain stable. iv fluids were stopped . pt is felt stable to go to medical floor from yesterday however critical care team recommended to keep monitoring pt in icu for now 05/22/2019 pt is transferred to the general medical floor today , he breathing looks better , coughing and weakness are improving as well, no more abd pain and her LLQ tenderness improved as well. she is hemodynamically stable , labs shwoing improving leukocytes up to 1.2 , hb stable at 7.5 , platelet improved to 12k, pt has low grade fever yesterday night at 99.9, bp stable, pt developed rash on the trunk and mainly back and thought it is due to cefepime which is switched to aztreonam as per ID team. Patient has been taking care of by Dr. Cheung over the weekend and on a Sunday. 05/26/2019 Patient is seen in the general medical floor, she looks better, breathing more quiet with less respiratory distress. No chest pain. Occasional coughing. She remains on is aztreonam and Valacyclovir. Infectious disease R following the case closely. Her WBC is stable at 1.7, hemoglobin 7.5 and platelet 19. Discussed the case with oncology team. Patient could not work with PT/OT today and the proper way, whoever evaluated tomorrow We'll double check with infectious disease and oncology team about the discharge planning Discharge planning in 24-48 hours 05/27/2019 Patient clinically doing well, with her breathing is a stable. No chest pain. No dyspnea. Occasional coughing. Pancytopenia is worsened today with WBC down to 1.3, hemoglobin 6.9, platelets 8K, patient is getting been transfused blood and platelets. ID team recommended to continue with antibiotics aztreonam for 1 more week for her Pseudomonas infection. 05/28/2019 pt is still not cleared by oncology team , she is clinically the same or gradually improving , no new complaint , pt platelet are low again at 9k, and oncology team are planing for platelet transfusino , tomorrow she will get another dose of rituxan , will need 2 wks of aztreonam per ID 05/29/2019 Patient is awake with no chest pain or dyspnea. She has some abdominal discomfort. Vitals stable however she still have severe pancytopenia with WBC at 1.4, hemoglobin 7.5 and platelets 8, and absolute neutrophil is 0.1. rest of labs looked unremarkable. Patient is scheduled to get rituxan today or tomorrow by the hematology/oncology team. Patient might benefit from ECF upon discharge, discussed with nephrology social worker, however patient did not want to discuss it with the instability today 05/30/2019 Patient is awake with no chest pain or dyspnea. Her cough is minimal. Hemodynamically she is a stable However yesterday she developed right lower abdominal and right flank pain with tenderness associated with hematuria. Surgical team is been consulted and CAT scan of the abdomen was done followed by ultrasound showing larger right kidney which is suspicious for pyelonephritis, less likely renal infarct for which urologist evaluated the patient. Patient most likely she has seeding bacteria from her infection into her right kidney. Patient currently remains on antibiotics by infectious disease recommendation. Patient currently denies aztreonam. Patient urinalysis is showing moderate hematuria with RBC is more than 182, but not suspicious for infection. Pain management is provided with Dilaudid. Other labs showing severe pancytopenia with WBC 1.0, hemoglobin 5.9, platelets count 18 K. 05/31/2019 Patient is awake with no chest pain or dyspnea. Cough is better. She still have same right sided abdominal pain. No dysuria. She has low-grade temperature today. As a Vitas looks within normal limits. Patient getting blood and platelet transfusion today for thrombocytopenia and anemia. Her WBCs today is 1.6, hemoglobin 6.5 and platelets were 18 K yesterday, not repeated platelets today. Potassium is 3.3 which is been replaced and creatinine 0.5, sugar is controlled. Patient rituxan is healthy now, possible total Sunday. 06/01/2019 Patient basically looks the same as yesterday. However she has several bouts of loose bowel movement. Laxative or stopped. Her abdominal pain in the right lower quadrant looks the same and she has occasional bowel spasms. No nausea vomiting. She is breathing quietly. Vitals are stable. Her WBCs is slightly improved to 1.7, hemoglobin at 7.1 and platelets at 15 K. She remains on aztreonam for now. 06/02/2019 Patient lying in bed, not in respiratory distress. No chest pain/she has right lower quadrant abdominal pain gradually improving. no new complaints. . She is hemodynamically stable. She still running fever of 100.2F today. She still have pancytopenia with WBC 1.3K, platelets 8K and hemoglobin is 7.2. The case with the hematology/oncology team, withholding chemotherapy. Patient will be afebrile for 48 hours. Patient remains on aztreonam for now as per ID recommendation. 06/03/2019 Patient's still have abdominal pain on the right side, little bit moved up. She starting diet well, she still have dry cough. She has no fever since yesterday night. Patient is getting blood and platelet transfusion today as her platelet count is 10 K and hemoglobin dropped to 6.7. WBC is 1.5K. Patient remains on antibiotics and with monitoring fever and signs of infection and sepsis. 06/04/2019 Patient is awake with no chest pain or dyspnea. However she still have abdominal pain although it looks somewhat stable over the last few days and from yesterday. Her pain mainly in the lower abdomen and right and left sides. No pain in the upper abdomen. No nausea vomiting. She has fever of 1 or 2 today. She still severely pancytopenic and yesterday she could not tolerate platelet transfusion for the first time and has to be stopped. Patient yesterday she had CAT scan of the abdomen and pelvis showing persistent acute diverticulitis in the midsigmoid: With some progression with mild to moderate pelvic free fluid and mild ascites with increased inflammation. There was concerns for perforation. Also there is development of 3.4 x 2.2 cm intramural abscess in the sigmoid colon on. With a large right kidney suspicious for pyelonephritis or intraparenchymal hemorrhage which is felt is more likely. Also she has small to moderate bilateral pleural effusion with possible cholelithiasis. Patient is been followed by several consultants, oncology team because of her abnormal T held on her chemotherapy today, originally planned to have chemother apy today for worsening pancytopenia related to her CLL. Also infectious disease are recommended to continue with the same antibiotics and surgeon also evaluated the patient and he wanted to continue with conservative management for now. Also consulted the pulmonary/critical care team for bilateral pleural effusion and possible worsening of her general condition especially if chemotherapy was restarted, Dr. castellanos group have already evaluated the patient in the previous stay during this admission. Case was discussed with the surgery, pulmonary and oncology team Review of systems CONSTITUTIONAL: no malaise, no fatigue. HEENT: No recent visual problems or hearing problems. Denied any sore throat. CARDIOVASCULAR: No orthopnea, PND, no palpitations, no syncope. PULMONARY: No shortness of breath, no hemoptysis. GASTROINTESTINAL: Normoactive bowel sounds. NEUROLOGICAL: No headaches, no weakness, no numbness. HEMATOLOGICAL: Denies any bleeding or petechiae. GENITOURINARY: Denies any burning micturition, frequency, or urgency. MUSCULOSKELETAL/RHEUMATOLOGICAL: Denies any joint pain, swelling, or any muscle pain. ENDOCRINE: Denies any polyuria or polydipsia. Active Medications Generic Name Dose Route Start Last Admin Trade Name Freq PRN Reason Stop Dose Admin Acetaminophen 650 mg 06/01/19 21:33 06/03/19 20:51 Tylenol Tab PO 650 mg Q4HR PRN Administration Fever and/ or Pain Acetaminophen 1,000 mg 06/04/19 13:00 Tylenol Tab PO 06/04/19 13:01 ONCE ONE Allopurinol 300 mg 05/20/19 09:00 06/04/19 08:49 Zyloprim PO 300 mg DAILY VALNETE Administration Amlodipine Besylate 5 mg 06/03/19 12:45 06/04/19 08:49 Norvasc PO 5 mg DAILY VALENTE Administration Atorvastatin Calcium 40 mg 05/19/19 21:00 06/03/19 20:50 Lipitor PO 40 mg HS VALENTE Administration Benzonatate 200 mg 06/02/19 10:30 06/04/19 08:49 Tessalon Perles PO 200 mg TID VALENTE Administration Calcium Carbonate/Glycine 500 mg 05/24/19 11:11 05/29/19 09:17 Tums PO 500 mg QID PRN Administration Heartburn Al Hydroxide/Mg Hydroxide 30 0 ml 05/20/19 09:44 05/30/19 10:57 ml/ Lidocaine HCl 30 ml/ PO 5 ml Diphenhydramine HCl 75 mg/ QID PRN Administration Acetaminophen 960 mg Cold Sores Dexamethasone Sodium Phosphate 10 mg 06/05/19 13:00 Decadron IV 06/05/19 13:01 ONCE ONE Diphenhydramine HCl 50 mg 06/04/19 13:00 Benadryl IVP 06/04/19 13:01 ONCE ONE Famotidine 20 mg 06/04/19 13:00 Pepcid IVP 06/05/19 13:01 DAILY@1300 VALENTE Filgrastim 480 mcg 05/19/19 12:15 06/04/19 08:57 Zarxio SQ 480 mcg DAILY VALENTE Administration Guaifenesin 200 mg 05/19/19 12:31 06/02/19 05:37 Robitussin PO 200 mg Q6H PRN Administration Cough Hydralazine HCl 25 mg 06/03/19 12:31 Apresoline PO DAILY PRN Hypertension Hydromorphone HCl 0.5 mg 05/29/19 18:32 06/04/19 09:06 Dilaudid IVP 0.5 mg Q4HR PRN Administration Pain Sodium Chloride 500 mls @ 20 mls/hr 05/21/19 05:00 06/04/19 06:18 Saline 0.9% IV Not Given .Q24H VALENTE Aztreonam 2 gm/ Sodium 100 mls @ 100 mls/hr 05/29/19 22:23 06/04/19 06:17 Chloride IVPB 100 mls/hr Q8H [facility]E Administration Protocol Rituximab 700 mg/ Sodium 570 mls @ 0 mls/hr 06/04/19 14:00 Chloride IV 06/04/19 14:01 .Q0M ONE Protocol Titrate Ondansetron HCl 16 mg/ Sodium 58 mls @ 232 mls/hr 06/05/19 13:00 Chloride IVPB 06/05/19 13:14 ONCE ONE Bendamustine HCl 130 mg/ 55.2 mls @ 331.2 mls/hr 06/04/19 14:00 Sodium Chloride IV 06/05/19 14:09 Q24H [facility] Insulin Aspart 0 unit 05/20/19 07:30 06/04/19 07:47 Novolog SQ Not Given ACHS [facility] Protocol Iopamidol 30 ml 06/04/19 08:52 Isovue-300 30 Ml (For Oral Use) PO 06/05/19 08:[address] Scan Magnesium Hydroxide 2,400 mg 05/26/19 11:28 05/26/19 12:01 Milk Of Magnesia PO 2,400 mg ONCE PRN Administration Constipation Methylprednisolone Sodium Succinate 125 mg 06/04/19 13:00 Solu-Medrol IVP 06/04/19 13:01 ONCE ONE Metronidazole 500 mg 06/04/19 16:00 Flagyl PO Q8HR [facility] Miscellaneous Information 1 each 05/19/19 10:22 Pneumonia Protocol Utilized PO ONCE PRN Per Protocol Miscellaneous Information 1 each 05/19/19 14:58 Potassium Per Protocol MISCELLANE DAILY PRN Per Protocol Protocol Naloxone HCl 0.2 mg 05/19/19 23:24 Narcan IV Q2M PRN Opioid Reversal Ondansetron HCl 4 mg 05/29/19 08:27 06/03/19 01:36 Zofran IVP 4 mg Q4HR PRN Administration Nausea And Vomiting Pantoprazole Sodium 40 mg 05/19/19 17:30 06/04/19 08:48 Protonix PO 40 mg AC-BID [facility] Administration Polyethylene Glycol 17 gm 05/24/19 09:00 06/04/19 08:50 Miralax PO Not Given DAILY [facility] Senna/Docusate Sodium 2 each 05/26/19 21:00 06/04/19 08:50 Senokot-S PO Not Given BID [facility] Tramadol HCl 50 mg 05/19/19 12:31 05/29/19 12:57 Ultram PO 50 mg QID PRN Administration Pain Valacyclovir HCl 1,000 mg 05/19/19 21:00 06/04/19 08:50 Valtrex PO 1,000 mg BID [facility]E Administration Objective - Vital Signs Vital signs: Vital Signs Temp 97.9 F 06/04/19 11:45 Pulse 78 06/04/19 11:45 Resp 16 06/04/19 11:45 BP 134/62 06/04/19 11:45 Pulse Ox 94 L 06/04/19 11:45 Intake & Output 06/03/19 06/04/19 06/04/19 18:59 06:59 18:59 Intake Total 2660 536 Output Total 1600 700 Balance 1060 -164 Weight 98.5 kg Intake: Intake, IV Titration 320 480 Amount Aztreonam 2 gm In Sodium 100 200 Chloride 0.9% 100 ml @ 100 mls/hr IVPB Q8H [facility] Rx#:[id number] Sodium Chloride 0.9% 1, 120 120 000 ml @ 0 mls/hr IV .STK -MED ONE Rx#:[id number] Sodium Chloride 0.9% 500 60 ml 500 ml @ 20 mls/hr IV .Q24H [facility] Rx#:[id number] metroNIDAZOLE-NS PMX 500 100 100 mg In Saline 1 100ml.bag @ 100 mls/hr IVPB Q8HR [facility] Rx#:[id number] Oral 1720 Blood Product 620 56 Platelet Irr Pheresis 56 Acda1 Unit [id number] Rc Irr As1 Unit 310 [id number] Output: Urine 1600 700 Uretheral (Espinoza) 700 Other: Voiding Method Indwelling Catheter Indwelling Catheter Indwelling Catheter # Voids 1 # Bowel Movements 1 - Exam -GENERAL: The patient is alert and oriented x3, not in any acute distress. Pale and weak HEENT: Pupils are round and equally reacting to light. EOMI. No scleral icterus. No conjunctival pallor. Normocephalic, atraumatic. No pharyngeal erythema. No thyromegaly. CARDIOVASCULAR: S1 and S2 present. No murmurs, rubs, or gallops. PULMONARY: Chest is clear to auscultation, no wheezing or crackles. -ABDOMEN: Soft,nondistended, normoactive bowel sounds. No palpable organomegaly. Right flank and lower quadrant tenderness with no rebound tenderness MUSCULOSKELETAL: No joint swelling or deformity. EXTREMITIES: No cyanosis, clubbing, or pedal edema. NEUROLOGICAL: Gross neurological examination did not reveal any focal deficits. SKIN: No rashes. - Labs CBC & Chem 7: 06/04/19 07:20 06/04/19 07:20 Labs: Abnormal Lab Results - Last 24 Hours (Table) 0806/03/19 06/03/19 Range/Units 09:20 09:19 17:28 WBC (3.8-10.6) k/uL RBC (3.80-5.40) m/uL Hgb (11.4-16.0) gm/dL Hct (34.0-46.0) % Plt Count (150-450) k/uL Neutrophils # (1.3-7.7) k/uL Sodium (137-145) mmol/L Potassium (3.5-5.1) mmol/L Glucose (74-99) mg/dL POC Glucose (mg/dL) 114 H (75-99) mg/dL Calcium (8.4-10.2) mg/dL Delta Bilirubin (0.0-0.2) mg/dL Total Protein (6.3-8.2) g/dL Albumin (3.5-5.0) g/dL Urine Protein (Negative) Urine Ketones (Negative) Urine Blood (Negative) Ur Leukocyte Esterase (Negative) Urine RBC (0-5) /hpf Urine Bacteria (None) /hpf Urine Mucus (None) /hpf Urine Yeast (Budding) (None) /hpf IgG 498.0 L (700.0-1600.0) mg/dL Crossmatch See Detail 06/03/19 06/04/19 06/04/19 Range/Units 20:09 00:05 00:30 WBC (3.8-10.6) k/uL RBC (3.80-5.40) m/uL Hgb (11.4-16.0) gm/dL Hct (34.0-46.0) % Plt Count (150-450) k/uL Neutrophils # (1.3-7.7) k/uL Sodium (137-145) mmol/L Potassium (3.5-5.1) mmol/L Glucose (74-99) mg/dL POC Glucose (mg/dL) 123 H 130 H (75-99) mg/dL Calcium (8.4-10.2) mg/dL Delta Bilirubin (0.0-0.2) mg/dL Total Protein (6.3-8.2) g/dL Albumin (3.5-5.0) g/dL Urine Protein 2+ H (Negative) Urine Ketones 1+ H (Negative) Urine Blood Large H (Negative) Ur Leukocyte Esterase Trace H (Negative) Urine RBC >182 H (0-5) /hpf Urine Bacteria Rare H (None) /hpf Urine Mucus Rare H (None) /hpf Urine Yeast (Budding) Many H (None) /hpf IgG (700.0-1600.0) mg/dL Crossmatch 06/04/19 06/04/19 06/04/19 Range/Units 07:03 07:20 07:20 WBC 1.2 L* (3.8-10.6) k/uL RBC 2.30 L (3.80-5.40) m/uL Hgb 6.6 L* (11.4-16.0) gm/dL Hct 19.9 L* (34.0-46.0) % Plt Count 11 L* (150-450) k/uL Neutrophils # 0.1 L* (1.3-7.7) k/uL Sodium 135 L (137-145) mmol/L Potassium 3.3 L (3.5-5.1) mmol/L Glucose 101 H (74-99) mg/dL POC Glucose (mg/dL) 110 H (75-99) mg/dL Calcium 6.1 L* (8.4-10.2) mg/dL Delta Bilirubin 0.4 H (0.0-0.2) mg/dL Total Protein 4.2 L (6.3-8.2) g/dL Albumin 2.3 L (3.5-5.0) g/dL Urine Protein (Negative) Urine Ketones (Negative) Urine Blood (Negative) Ur Leukocyte Esterase (Negative) Urine RBC (0-5) /hpf Urine Bacteria (None) /hpf Urine Mucus (None) /hpf Urine Yeast (Budding) (None) /hpf IgG (700.0-1600.0) mg/dL Crossmatch 06/04/19 Range/Units 11:19 WBC (3.8-10.6) k/uL RBC (3.80-5.40) m/uL Hgb (11.4-16.0) gm/dL Hct (34.0-46.0) % Plt Count (150-450) k/uL Neutrophils # (1.3-7.7) k/uL Sodium (137-145) mmol/L Potassium (3.5-5.1) mmol/L Glucose (74-99) mg/dL POC Glucose (mg/dL) 126 H (75-99) mg/dL Calcium (8.4-10.2) mg/dL Delta Bilirubin (0.0-0.2) mg/dL Total Protein (6.3-8.2) g/dL Albumin (3.5-5.0) g/dL Urine Protein (Negative) Urine Ketones (Negative) Urine Blood (Negative) Ur Leukocyte Esterase (Negative) Urine RBC (0-5) /hpf Urine Bacteria (None) /hpf Urine Mucus (None) /hpf Urine Yeast (Budding) (None) /hpf IgG (700.0-1600.0) mg/dL Crossmatch Microbiology - Last 24 Hours (Table) 06/01/19 21:42 Blood Culture - Preliminary Blood No Growth after 48 hours 06/02/19 16:56 Urine Culture - Final Urine,Catheterized Assessment and Plan Assessment: Pancytopenia, refractive to therapy Right kidney pyelonephritis, with possible intraparenchymal renal hemorrhage felt to be strong possibility. Neurology on the case sepsis secondary to speudomonas , mostly secondary to pneumonia sigmoid diverticulitis , worsening Possible intramural abscess of the sigmoid colon Small local perforation of the colon, Gen. surgeon evaluated the patient and recommended to continue with conservative management chronic stable pulmonary infiltrates Elevated lactic acid. Resolved Dehydration and generalized weakness Acute hypoxemic respiratory failure CLL With leukocytosis. on Therapy Recent history of acute lung injury, related to multiple blood/platelet transfusion, with possible pneumonia History of breast cancer in 2014 status post chemo/radiation and surgery. Currently on anastrozole Hypertension Hyperlipidemia Osteoarthritis Previous history of smoking DVT prophylaxis with SCDs Plan: This is a pleasant 73 years old female who presents with pancytopenia and review of her CLL or therapy, also she has multiple lung infiltrates. And recently right-sided pyelonephritis although it feels intraparenchymal hemorrhage in the kidney which is more possible. Patient has worsening diverticulitis with possible perforation so chemotherapy were held and neurosurgery and infectious disease R following the case closely with a recommendation for continuing conservative management now. Patient is on aztreonam. Critical/pulmonary team were called for bilateral pleural effusion and possible worsening of her condition. Continue same treatment. Continue with symptomatic treatment. Resume home medication. Monitor lytes and vitals. DVT and GI prophylaxis. Further recommendations of the clinical course of the patient DVT prophylaxis: No anticoagulation in the view of low platelets GI Prophylaxis: Pepcid PT/OT: Pending. Patient refused Prognosis is guarded
[2019-06-04] MEDS ORDERED: ACETAMINOPHEN TAB 500 MG TAB PO ONE ×2 (13:00→16:00)
[2019-06-04] MEDS ORDERED: diphenhydrAMINE 50 MG/ML 1 ML VIAL IVP ONE (13:00)
[2019-06-04] MEDS ORDERED: methylPREDNISolone SOD SUCCI 125 MG/2 ML VIAL IVP ONE (13:00)
[2019-06-04] MEDS ORDERED: FAMOTIDINE 20 MG/2 ML VIAL IVP SCH (13:00)
[2019-06-04] MEDS: IOPAMIDOL-300 CONTRAST 30 ML VIAL (ORAL USE) PO PRN ×2 (13:07→14:06)
--- NOTE | 2019-06-04 13:43 | P.PN ---
Subjective Progress Note Date: 06/04/19 Principal diagnosis: Bilateral infiltrates, unchanged without acute respiratory compromise at this time. Severe pancytopenia. History of CLL. The patient is seen today in 06/04/2019 in follow-up on the regular medical floor. She is currently resting fairly comfortably in bed. Awake and alert in no pulmonary distress. She does have bilateral infiltrates and we had been fol lowing her earlier in this admission. She had severe pancytopenia. Recent pneumonia with sepsis. History of CLL with treatment with Rituxan in November 2018. She's also had issues with acute diastolic congestive heart failure. She has moderate mitral regurgitation and mild aortic stenosis with mild to moderate pulmonary hypertension. She has a history of right breast cancer status post lumpectomy followed by chemotherapy and radiation. She says as her hypertension, hyperlipidemia, previous tobacco dependence, sleep apnea syndrome. She is using her home CPAP while she's been here. Computed tomography scan of the abdomen and pelvis performed yesterday revealed persistent acute diverti culitis at the mid sigmoid colon and some interval progression. There is now mild to moderate pelvic free fluid, mild perihepatic ascites and increasing inflammation in the pelvis. There is an to roll development #3.4 x 2.0 cm intramural abscess along the superior aspect of the mid sigmoid colon. Enlargement of the right kidney. Small to moderate bilateral pleural effusions. She is maintaining good O2 saturations in the 90s on room air. She's been hemodynamically stable. Currently afebrile. Submission she has had 8 units of packed red blood cells and 11 let's. Current hemoglobin 6.6. Current platelet count 11,000. He count 1.2. Sodium 135. Potassium 3.3. Creatinine 0.62. Initial blood culture revealed pseudomonas aeruginosa. Current repeat blood cultures revealing no growth. He is currently on aztreonam and Flagyl. She is on Zarxio. The plan is for repeat CAT scan today for comparison. Surgical services are following. Oncology is hoping to resume her chemotherapy as soon as possible. Objective - Vital Signs Vital signs: Vital Signs Temp 97.5 F L 06/04/19 13:13 Pulse 88 06/04/19 13:13 Resp 18 06/04/19 13:13 BP 166/72 06/04/19 13:13 Pulse Ox 94 L 06/04/19 11:45 Intake & Output 06/03/19 06/04/19 06/04/19 18:59 06:59 18:59 Intake Total 2660 536 0 Output Total 1600 700 Balance 1060 -164 0 Weight 98.5 kg Intake: Intake, IV Titration 320 480 Amount Aztreonam 2 gm In Sodium 100 200 Chloride 0.9% 100 ml @ 100 mls/hr IVPB Q8H [facility] Rx#:[id number] Sodium Chloride 0.9% 1, 120 120 000 ml @ 0 mls/hr IV .STK -MED ONE Rx#:[id number] Sodium Chloride 0.9% 500 60 ml 500 ml @ 20 mls/hr IV .Q24H [facility] Rx#:[id number] metroNIDAZOLE-NS PMX 500 100 100 mg In Saline 1 100ml.bag @ 100 mls/hr IVPB Q8HR [facility] Rx#:[id number] Oral 1720 Blood Product 620 56 0 Platelet Irr Pheresis 56 Acda1 Unit [id number] Rc Irr As1 Unit 310 [id number] Rc Irr As1 Unit 0 [id number] Output: Urine 1600 700 Uretheral (Espinoza) 700 Other: Voiding Method Indwelling Catheter Indwelling Catheter Indwelling Catheter # Voids 1 # Bowel Movements 1 - Exam - Constitutional General appearance: Present: cooperative, no acute distress, obese, on room air. - EENT Eyes: Present: anicteric sclerae ENT: Present: hearing grossly normal - Respiratory Respiratory: bilateral: diminished (bases) - Cardiovascular Heart sounds: normal: S1, S2 - Peripheral edema leg Peripheral Edema: bilateral: None - Gastrointestinal General gastrointestinal: Present: normal bowel sounds, soft Localized gastrointestinal: tender: RUQ (mild), RLQ (mild) - Neurologic Neurologic Comment(s): left eye ptosis Neurologic: Present: CNII-XII intact - Musculoskeletal Musculoskeletal: Present: generalized weakness - Psychiatric Psychiatric: Present: A&O x's 3, appropriate affect, intact judgment & insight - Labs CBC & Chem 7: 06/04/19 07:20 06/04/19 07:20 Labs: Abnormal Lab Results - Last 24 Hours (Table) 06/03/19 06/03/19 06/03/19 Range/Units 09:19 17:28 20:09 WBC (3.8-10.6) k/uL RBC (3.80-5.40) m/uL Hgb (11.4-16.0) gm/dL Hct (34.0-46.0) % Plt Count (150-450) k/uL Neutrophils # (1.3-7.7) k/uL Sodium (137-145) mmol/L Potassium (3.5-5.1) mmol/L Glucose (74-99) mg/dL POC Glucose (mg/dL) 114 H 123 H (75-99) mg/dL Calcium (8.4-10.2) mg/dL Delta Bilirubin (0.0-0.2) mg/dL Total Protein (6.3-8.2) g/dL Albumin (3.5-5.0) g/dL Urine Protein (Negative) Urine Ketones (Negative) Urine Blood (Negative) Ur Leukocyte Esterase (Negative) Urine RBC (0-5) /hpf Urine Bacteria (None) /hpf Urine Mucus (None) /hpf Urine Yeast (Budding) (None) /hpf Crossmatch See Detail 06/04/19 06/04/19 06/04/19 Range/Units 00:05 00:30 07:03 WBC (3.8-10.6) k/uL RBC (3.80-5.40) m/uL Hgb (11.4-16.0) gm/dL Hct (34.0-46.0) % Plt Count (150-450) k/uL Neutrophils # (1.3-7.7) k/uL Sodium (137-145) mmol/L Potassium (3.5-5.1) mmol/L Glucose (74-99) mg/dL POC Glucose (mg/dL) 130 H 110 H (75-99) mg/dL Calcium (8.4-10.2) mg/dL Delta Bilirubin (0.0-0.2) mg/dL Total Protein (6.3-8.2) g/dL Albumin (3.5-5.0) g/dL Urine Protein 2+ H (Negative) Urine Ketones 1+ H (Negative) Urine Blood Large H (Negative) Ur Leukocyte Esterase Trace H (Negative) Urine RBC >182 H (0-5) /hpf Urine Bacteria Rare H (None) /hpf Urine Mucus Rare H (None) /hpf Urine Yeast (Budding) Many H (None) /hpf Crossmatch 06/04/19 06/04/19 06/04/19 Range/Units 07:20 07:20 11:19 WBC 1.2 L* (3.8-10.6) k/uL RBC 2.30 L (3.80-5.40) m/uL Hgb 6.6 L* (11.4-16.0) gm/dL Hct 19.9 L* (34.0-46.0) % Plt Count 11 L* (150-450) k/uL Neutrophils # 0.1 L* (1.3-7.7) k/uL Sodium 135 L (137-145) mmol/L Potassium 3.3 L (3.5-5.1) mmol/L Glucose 101 H (74-99) mg/dL POC Glucose (mg/dL) 126 H (75-99) mg/dL Calcium 6.1 L* (8.4-10.2) mg/dL Delta Bilirubin 0.4 H (0.0-0.2) mg/dL Total Protein 4.2 L (6.3-8.2) g/dL Albumin 2.3 L (3.5-5.0) g/dL Urine Protein (Negative) Urine Ketones (Negative) Urine Blood (Negative) Ur Leukocyte Esterase (Negative) Urine RBC (0-5) /hpf Urine Bacteria (None) /hpf Urine Mucus (None) /hpf Urine Yeast (Budding) (None) /hpf Crossmatch Microbiology - Last 24 Hours (Table) 06/01/19 21:42 Blood Culture - Preliminary Blood No Growth after 48 hours 06/02/19 16:56 Urine Culture - Final Urine,Catheterized Assessment and Plan Assessment: Impression: #1 Severe pancytopenia in a patient with a history of CLL and had received Rituxan and November 2018. Hoping to resume soon. #2 Acute diverticulitis with febrile illness at the mid sigmoid colon and some interval progression. There is now mild to moderate pelvic free fluid, mild. Hepatic ascites and increasing inflammation in the pelvis. There is also interval development of a 3.4 x 2.0 cm intramural abscess along the superior aspect of the mid sigmoid colon. #3 Extensive enlargement of the right kidney and some concern for intraparen chymal renal hemorrhage rather than pyelonephritis.. #4 Increasing small to moderate bilateral pleural effusions. #5 Protein calorie malnutrition #6 Hypogammaglobulinemia him a to receive 20 mg of IVIG. #7 Bacteremia due to Pseudomonas. Plan: The patient was seen and evaluated by Dr. Metz. CAT scan reviewed. We'll await repeat computed tomography scan today. The patient is on room air and in no acute pulmonary distress at this time. We'll hold off on any thoracentesis for now. We will follow along with the patient especially should she require return to the ICU. Oncology, urology, surgical services, infectious disease are all on the case as well. We will continue to follow and make further recommendations based on her clinical status. I, the cosigning physician, performed a history & physical examination of the patient. Lungs sounds with crackles in the bilateral posterior bases. Maintaining good O2 saturations in the 90s on room air. I discussed the assessment and plan of care with my nurse practitioner, Soha Bustamante. I attest to the above note as dictated by her.
[2019-06-04] MEDS ORDERED: BENDAMUSTINE HCL IV SCH (14:00)
[2019-06-04] MEDS ORDERED: riTUXimab 700 MG in SODIUM CHLORIDE 0.9% 500 ML 500 ML IV ONE (14:00)
[2019-06-04] MEDS ORDERED: SODIUM CHLORIDE 0.9% IV SCH (14:00)
--- NOTE | 2019-06-04 15:45 | CT ---
EXAMINATION TYPE: CT abdomen pelvis wo con DATE OF EXAM: 06/04/2019 COMPARISON: May 2019 HISTORY: low platlet count, pnemonia, sepsis. CT DLP: 1082 mGycm Examination of the solid and hollow viscera is limited given the lack of contrast. FINDINGS: LUNG BASES: Bilateral pleural effusions and compressive. Right middle lobe nodularity seen which in p art appears to be calcified and likely reflect granulomatous disease. LIVER/GB: Cholelithiasis gallbladder hydrops measuring 10.5 cm. No space-occupying hepatic lesion. PANCREAS: No pancreatic mass identified. No inflammatory process seen. SPLEEN: No evidence for splenomegaly. No intrasplenic lesions seen. ADRENALS: No adrenal nodules identified. No evidence for thickening. KIDNEYS: Subcapsular and intraparenchymal renal hemorrhage noted right kidney the right kidney measur es 12.7 cm craniocaudal dimension versus 13.2 cm previously. No definite progression is suspected. Th e left kidney is unremarkable. No distinct left renal mass. No hydronephrosis or nephrolithiasis. Air is seen within the urinary bladder lumen as well as Espinoza balloon catheter. BOWEL: Persistent inflammatory change about the sigmoid colon with loss of fat plane relative to the adjacent urinary bladder. Fistulous communication is difficult to exclude. No drainable abscess is s een. Small intramural abscess measuring 2.7 cm is difficult to exclude. Remainder of the small and la rge bowel are of normal caliber. No free air identified. Lymph nodes: No evidence for adenopathy greater than 1 cm. Abdominal aorta: Atheromatous changes seen. No evidence for aneurysm. Genital organs: No significant abnormality. Other: No significant abnormality. IMPRESSION: 1.Persistent inflammatory change about the sigmoid colon with loss of fat plane relative to the adjac ent urinary bladder. Fistulous communication is difficult to exclude. No drainable abscess is seen. S mall intramural abscess measuring 2.7 cm is difficult to exclude. 2. Persistent subcapsular and intraparenchymal renal hemorrhage right kidney without significant prog ression. Correlate for possible Pott's kidney. 3. Lateral pleural effusions remain essentially stable. Basilar atelectasis. 4. Gallbladder hydrops of cholelithiasis. Small amount of ascites.
--- NOTE | 2019-06-04 15:51 | P.GSCN ---
<Ghazal Mcintosh Maya - Last Filed: 06/04/19 15:49> History of Present Illness Consult date: 06/04/19 Reason for Consult: Diverticulitis Requesting physician: Jorge Luis E Sheet History of present illness: CHIEF COMPLAINT: Diverticulitis HISTORY OF PRESENT ILLNESS: 73 year old female with a history of breast cancer and CLL who was originally admitted to the hospital due to abnormal labs. Patient developed abdominal pain during admission and Dr. Leyva had been following along. Patient apparently requested consult to be changed to Dr. James as had previously been evaluated by him outpatient. It is noted Dr. Leyva did perform port insertion. Patient reports decreased oral intake. Has no appetite. Denies nausea or vomiting. Reports loose bowel movements. Cdiff negative. Reports tenderness to left lower quadrant. CT was performed yesterday revealing persistent acute diverticulitis at the mid sigmoid colon. Moderate pelvic fluid. Mild perihepatic ascites and increasing inflammation in the pelvis. A small local perforation is suggested given tiny locule of extraluminal air. Development of 3.4 x 2.0 cm intramural abscess along the superior aspect of the mid sigmoid colon. PAST MEDICAL HISTORY: See list. PAST SURGICAL HISTORY: See list. SOCIAL HISTORY: No illicit drug use. REVIEW OF SYSTEMS: CONSTITUTIONAL: Denies fever or chills. HEENT: Denies blurred vision, vision changes, or eye pain. Denies hemoptysis CARDIOVASCULAR: Denies chest pain or pressure. RESPIRATORY: No shortness of breath. GASTROINTESTINAL: Refer to HPI for pertinent findings HEMATOLOGIC: Denies bleeding disorders. Reports low platelet counts. GENITOURINARY: Denies any blood in urine. SKIN: Denies pruitis. Denies rash. PHYSICAL EXAM: VITAL SIGNS: Reviewed. GENERAL: Well-developed in no acute distress. HEENT: No sclera icterus. Extraocular movements grossly intact. Moist buccal mucosa. Head is atraumatic, normocephalic. ABDOMEN: Soft. Nondistended. Tenderness with palpation to lower mid/left quadrant. No peritoneal signs. NEUROLOGIC: Alert and oriented. Cranial nerves II through XII grossly intact. LABORATORY DATA: WBC 1.2. Hemoglobin 6.6. Platelet count 11. IMAGING: See above for CT report from yesterday ASSESSMENT: 1. Acute diverticulitis with microperforation and abscess formation 2. Pancytopenia 3. Diarrhea, C. diff negative 4. History of breast cancer and chronic lymphocytic leukemia PLAN: 1. Continue antibiotics. Infectious disease following 2. Repeat CT scan ordered per oncology. Await results. 3. No surgical intervention recommended. Continue conservative measures. 4. May benefit from TPN Nurse practitioner note has been reviewed by physician. Signing provider agrees with the documented findings, assessment, and plan of care. Past Medical History Past Medical History: Blood Disorder, Cancer, Hyperlipidemia, Hypertension, Osteoarthritis (OA), Pneumonia, Sleep Apnea/CPAP/BIPAP Additional Past Medical History / Comment(s): Pt recently admitted to [facility] on 04/25/19 with acute hypoxic respiratory failure 2ndary to acute lung injury r/t blood/platelet transfusions. Other hx: CLL, low platelets, anemia, thrombocytopenia/ptechial rash, neutropenia, current cold sores, 2014 R breast cancer with lumpectomy/chemo/radiation, CÉSAR with Cpap. History of Any Multi-Drug Resistant Organisms: None Reported Past Surgical History: Bladder Surgery, Breast Surgery, Joint Replacement, Tubal Ligation, Uterine Ablation Additional Past Surgical History / Comment(s): 04/29/19 BMA with bx, R breast lumpectomy, bladder suspension, several D&Cs, colonoscopy. Past Anesthesia/Blood Transfusion Reactions: Postoperative Nausea & Vomiting (PONV) Additional Past Anesthesia/Blood Transfusion Reaction / Comm: Pt has received blood/platelets without reaction. Smoking Status: Former smoker - Past Family History Father Family Medical History: Cancer Additional Family Medical History / Comment(s): Father had lung cancer. He was a nonsmoker. Sister(s) Family Medical History: Cancer Additional Family Medical History / Comment(s): Youngest sister has lung cancer that has metastasized to her liver Mother Family Medical History: Coronary Artery Disease (CAD) Additional Family Medical History / Comment(s): Mother of a AL at the age of 96yrs. Medications and Allergies Home Medications Medication Instructions Recorded Confirmed Type Anastrozole [Arimidex] 1 mg PO DAILY 03/28/16 05/19/19 History amLODIPine [Norvasc] 5 mg PO BID 03/28/16 05/19/19 History Pantoprazole Sodium [Protonix] 40 mg PO BID #60 tablet. 04/27/16 05/19/19 Rx Allopurinol [Zyloprim] 300 mg PO DAILY 04/25/19 05/19/19 History Atorvastatin [Lipitor] 40 mg PO HS 04/25/19 05/19/19 History Docusate [Colace] 100 mg PO DAILY 04/25/19 05/19/19 History Ferrous Sulfate [Iron (65 MG 325 mg PO DAILY 04/25/19 05/19/19 History Elemental)] valACYclovir [Valtrex] 1,000 mg PO BID #60 tab 05/15/19 05/19/19 Rx Allergies Allergy/AdvReac Type Severity Reaction Status Date / Time cefepime Allergy Rash/Hives Verified 05/22/19 12:25 chocolate flavor Allergy hives Verified 05/19/19 16:33 Surgical - Exam Vital Signs Temp Pulse Resp BP Pulse Ox 98.3 F 101 H 18 98/65 96 05/19/19 08:32 05/19/19 08:32 05/19/19 08:32 05/19/19 08:32 05/19/19 08:32 Results - Labs 06/04/19 07:20 06/04/19 07:20 Abnormal Lab Results - Last 24 Hours (Table) 06/03/19 06/03/19 06/03/19 Range/Units 09:19 17:28 20:09 WBC (3.8-10.6) k/uL RBC (3.80-5.40) m/uL Hgb (11.4-16.0) gm/dL Hct (34.0-46.0) % Plt Count (150-450) k/uL Neutrophils # (1.3-7.7) k/uL Sodium (137-145) mmol/L Potassium (3.5-5.1) mmol/L Glucose (74-99) mg/dL POC Glucose (mg/dL) 114 H 123 H (75-99) mg/dL Calcium (8.4-10.2) mg/dL Delta Bilirubin (0.0-0.2) mg/dL Total Protein (6.3-8.2) g/dL Albumin (3.5-5.0) g/dL Urine Protein (Negative) Urine Ketones (Negative) Urine Blood (Negative) Ur Leukocyte Esterase (Negative) Urine RBC (0-5) /hpf Urine Bacteria (None) /hpf Urine Mucus (None) /hpf Urine Yeast (Budding) (None) /hpf Crossmatch See Detail 06/04/19 06/04/19 06/04/19 Range/Units 00:05 00:30 07:03 WBC (3.8-10.6) k/uL RBC (3.80-5.40) m/uL Hgb (11.4-16.0) gm/dL Hct (34.0-46.0) % Plt Count (150-450) k/uL Neutrophils # (1.3-7.7) k/uL Sodium (137-145) mmol/L Potassium (3.5-5.1) mmol/L Glucose (74-99) mg/dL POC Glucose (mg/dL) 130 H 110 H (75-99) mg/dL Calcium (8.4-10.2) mg/dL Delta Bilirubin (0.0-0.2) mg/dL Total Protein (6.3-8.2) g/dL Albumin (3.5-5.0) g/dL Urine Protein 2+ H (Negative) Urine Ketones 1+ H (Negative) Urine Blood Large H (Negative) Ur Leukocyte Esterase Trace H (Negative) Urine RBC >182 H (0-5) /hpf Urine Bacteria Rare H (None) /hpf Urine Mucus Rare H (None) /hpf Urine Yeast (Budding) Many H (None) /hpf Crossmatch 06/04/19 06/04/19 06/04/19 Range/Units 07:20 07:20 11:19 WBC 1.2 L* (3.8-10.6) k/uL RBC 2.30 L (3.80-5.40) m/uL Hgb 6.6 L* (11.4-16.0) gm/dL Hct 19.9 L* (34.0-46.0) % Plt Count 11 L* (150-450) k/uL Neutrophils # 0.1 L* (1.3-7.7) k/uL Sodium 135 L (137-145) mmol/L Potassium 3.3 L (3.5-5.1) mmol/L Glucose 101 H (74-99) mg/dL POC Glucose (mg/dL) 126 H (75-99) mg/dL Calcium 6.1 L* (8.4-10.2) mg/dL Delta Bilirubin 0.4 H (0.0-0.2) mg/dL Total Protein 4.2 L (6.3-8.2) g/dL Albumin 2.3 L (3.5-5.0) g/dL Urine Protein (Negative) Urine Ketones (Negative) Urine Blood (Negative) Ur Leukocyte Esterase (Negative) Urine RBC (0-5) /hpf Urine Bacteria (None) /hpf Urine Mucus (None) /hpf Urine Yeast (Budding) (None) /hpf Crossmatch Microbiology - Last 24 Hours (Table) 06/01/19 21:42 Blood Culture - Preliminary Blood No Growth after 48 hours 06/02/19 16:56 Urine Culture - Final Urine,Catheterized Diabetes panel 06/04/19 Range/Units 07:20 Sodium 135 L (137-145) mmol/L Potassium 3.3 L (3.5-5.1) mmol/L Chloride 106 (98-107) mmol/L Carbon Dioxide 22 (22-30) mmol/L BUN 16 (7-17) mg/dL Creatinine 0.62 (0.52-1.04) mg/dL Glucose 101 H (74-99) mg/dL Calcium 6.1 L* (8.4-10.2) mg/dL AST 17 (14-36) U/L ALT 33 (9-52) U/L Alkaline Phosphatase 50 (38-126) U/L Total Protein 4.2 L (6.3-8.2) g/dL Albumin 2.3 L (3.5-5.0) g/dL Calcium panel 06/04/19 Range/Units 07:20 Calcium 6.1 L* (8.4-10.2) mg/dL Albumin 2.3 L (3.5-5.0) g/dL Pituitary panel 06/04/19 Range/Units 07:20 Sodium 135 L (137-145) mmol/L Potassium 3.3 L (3.5-5.1) mmol/L Chloride 106 (98-107) mmol/L Carbon Dioxide 22 (22-30) mmol/L BUN 16 (7-17) mg/dL Creatinine 0.62 (0.52-1.04) mg/dL Glucose 101 H (74-99) mg/dL Calcium 6.1 L* (8.4-10.2) mg/dL Adrenal panel 06/04/19 Range/Units 07:20 Sodium 135 L (137-145) mmol/L Potassium 3.3 L (3.5-5.1) mmol/L Chloride 106 (98-107) mmol/L Carbon Dioxide 22 (22-30) mmol/L BUN 16 (7-17) mg/dL Creatinine 0.62 (0.52-1.04) mg/dL Glucose 101 H (74-99) mg/dL Calcium 6.1 L* (8.4-10.2) mg/dL Total Bilirubin 0.8 (0.2-1.3) mg/dL AST 17 (14-36) U/L ALT 33 (9-52) U/L Alkaline Phosphatase 50 (38-126) U/L Total Protein 4.2 L (6.3-8.2) g/dL Albumin 2.3 L (3.5-5.0) g/dL <Nestor James - Last Filed: 06/04/19 19:08> History of Present Illness History of present illness: As above. Patient known to our service from previous gist diagnosis and subsequent resection outside of count. Patient hospitalized for pancytopenia secondary to CLL and associated therapies. Over the last several days has had increased pain lower abdomen. Particularly with coughing. CAT scan performed with and without oral contrast. CAT scan shows inflammatory changes of the sigmoid colon with some extraluminal air. Slightly greater degree of the intravesicular air than expected. Underlying fistula not excluded. Remains on antibiotics. Having loose stools. No constipation. Abdomen is soft with mild lower abdominal tenderness. No rebound or guarding. Continue supportive care. No surgical intervention planned at this time. We'll closely follow. Surgical - Exam Vital Signs Temp Pulse Resp BP Pulse Ox 98.3 F 101 H 18 98/65 96 05/19/19 08:32 05/19/19 08:32 05/19/19 08:32 05/19/19 08:32 05/19/19 08:32 Results - Labs 06/04/19 07:20 06/04/19 07:20 Abnormal Lab Results - Last 24 Hours (Table) 06/03/19 06/03/19 06/04/19 Range/Units 09:19 20:09 00:05 WBC (3.8-10.6) k/uL RBC (3.80-5.40) m/uL Hgb (11.4-16.0) gm/dL Hct (34.0-46.0) % Plt Count (150-450) k/uL Neutrophils # (1.3-7.7) k/uL Sodium (137-145) mmol/L Potassium (3.5-5.1) mmol/L Glucose (74-99) mg/dL POC Glucose (mg/dL) 123 H 130 H (75-99) mg/dL Calcium (8.4-10.2) mg/dL Delta Bilirubin (0.0-0.2) mg/dL Total Protein (6.3-8.2) g/dL Albumin (3.5-5.0) g/dL Urine Protein (Negative) Urine Ketones (Negative) Urine Blood (Negative) Ur Leukocyte Esterase (Negative) Urine RBC (0-5) /hpf Urine Bacteria (None) /hpf Urine Mucus (None) /hpf Urine Yeast (Budding) (None) /hpf Crossmatch See Detail 06/04/19 06/04/19 06/04/19 Range/Units 00:30 07:03 07:20 WBC 1.2 L* (3.8-10.6) k/uL RBC 2.30 L (3.80-5.40) m/uL Hgb 6.6 L* (11.4-16.0) gm/dL Hct 19.9 L* (34.0-46.0) % Plt Count 11 L* (150-450) k/uL Neutrophils # 0.1 L* (1.3-7.7) k/uL Sodium (137-145) mmol/L Potassium (3.5-5.1) mmol/L Glucose (74-99) mg/dL POC Glucose (mg/dL) 110 H (75-99) mg/dL Calcium (8.4-10.2) mg/dL Delta Bilirubin (0.0-0.2) mg/dL Total Protein (6.3-8.2) g/dL Albumin (3.5-5.0) g/dL Urine Protein 2+ H (Negative) Urine Ketones 1+ H (Negative) Urine Blood Large H (Negative) Ur Leukocyte Esterase Trace H (Negative) Urine RBC >182 H (0-5) /hpf Urine Bacteria Rare H (None) /hpf Urine Mucus Rare H (None) /hpf Urine Yeast (Budding) Many H (None) /hpf Crossmatch 06/04/19 06/04/19 06/04/19 Range/Units 07:20 11:19 16:48 WBC (3.8-10.6) k/uL RBC (3.80-5.40) m/uL Hgb (11.4-16.0) gm/dL Hct (34.0-46.0) % Plt Count (150-450) k/uL Neutrophils # (1.3-7.7) k/uL Sodium 135 L (137-145) mmol/L Potassium 3.3 L (3.5-5.1) mmol/L Glucose 101 H (74-99) mg/dL POC Glucose (mg/dL) 126 H 140 H (75-99) mg/dL Calcium 6.1 L* (8.4-10.2) mg/dL Delta Bilirubin 0.4 H (0.0-0.2) mg/dL Total Protein 4.2 L (6.3-8.2) g/dL Albumin 2.3 L (3.5-5.0) g/dL Urine Protein (Negative) Urine Ketones (Negative) Urine Blood (Negative) Ur Leukocyte Esterase (Negative) Urine RBC (0-5) /hpf Urine Bacteria (None) /hpf Urine Mucus (None) /hpf Urine Yeast (Budding) (None) /hpf Crossmatch Microbiology - Last 24 Hours (Table) 06/01/19 21:42 Blood Culture - Preliminary Blood No Growth after 48 hours 06/02/19 16:56 Urine Culture - Final Urine,Catheterized Diabetes panel 06/04/19 Range/Units 07:20 Sodium 135 L (137-145) mmol/L Potassium 3.3 L (3.5-5.1) mmol/L Chloride 106 (98-107) mmol/L Carbon Dioxide 22 (22-30) mmol/L BUN 16 (7-17) mg/dL Creatinine 0.62 (0.52-1.04) mg/dL Glucose 101 H (74-99) mg/dL Calcium 6.1 L* (8.4-10.2) mg/dL AST 17 (14-36) U/L ALT 33 (9-52) U/L Alkaline Phosphatase 50 (38-126) U/L Total Protein 4.2 L (6.3-8.2) g/dL Albumin 2.3 L (3.5-5.0) g/dL Calcium panel 06/04/19 Range/Units 07:20 Calcium 6.1 L* (8.4-10.2) mg/dL Albumin 2.3 L (3.5-5.0) g/dL Pituitary panel 06/04/19 Range/Units 07:20 Sodium 135 L (137-145) mmol/L Potassium 3.3 L (3.5-5.1) mmol/L Chloride 106 (98-107) mmol/L Carbon Dioxide 22 (22-30) mmol/L BUN 16 (7-17) mg/dL Creatinine 0.62 (0.52-1.04) mg/dL Glucose 101 H (74-99) mg/dL Calcium 6.1 L* (8.4-10.2) mg/dL Adrenal panel 06/04/19 Range/Units 07:20 Sodium 135 L (137-145) mmol/L Potassium 3.3 L (3.5-5.1) mmol/L Chloride 106 (98-107) mmol/L Carbon Dioxide 22 (22-30) mmol/L BUN 16 (7-17) mg/dL Creatinine 0.62 (0.52-1.04) mg/dL Glucose 101 H (74-99) mg/dL Calcium 6.1 L* (8.4-10.2) mg/dL Total Bilirubin 0.8 (0.2-1.3) mg/dL AST 17 (14-36) U/L ALT 33 (9-52) U/L Alkaline Phosphatase 50 (38-126) U/L Total Protein 4.2 L (6.3-8.2) g/dL Albumin 2.3 L (3.5-5.0) g/dL
--- NOTE | 2019-06-04 15:57 | P.GSCN ---
History of Present Illness Consult date: 06/04/19 Reason for Consult: Gross hematuria History of present illness: The patient is a 73-year-old female with a history of chronic lymphocytic leuke dante which was diagnosed 3 years ago. She was admitted from 04/25 through 05/03/2019 due to thrombocytopenia and pneumonia. She was readmitted on 05/19 with neutropenic fever. Blood cultures have grown Pseudomonas and the patient is currently receiving Azactam and Flagyl. When she was admitted on 05/19/2019 CT scan of the abdomen and pelvis was obtained without IV contrast and this showed a cyst arising from the lateral border of the right kidney which had been noted on previous CT scans as well. The patient has continued to have problems with anemia and thrombocytopenia had a platelet count of 2000 on 05/19/2019. She has been treated with numerous platelet infusions and blood transfusions her plate let count has never been over 20,000. So far her underlying thrombocytemia has resisted treatment. Approximately one week ago she developed gross hematuria a CT scan of the abdomen and pelvis on 05/29 showed enlargement of the right kidney with heterogenic densities throughout the kidney which was interpreted as possible pyelonephritis or renal infarcts. The patient has had intermittent right flank pain since then and more recently has had some left lower quadrant pain. CT scan of the abdomen on 06/03/2018 without IV contrast showed more enlargement of the right kidney with heterogenic densities which is now felt to be consistent with intrarenal hemorrhage. In addition there is a question of a diverticular abscess arising from the sigmoid colon. I was asked to see the patient for further evaluation of the hematuria. The patient has a Espinoza catheter in place which was apparently inserted when she was in the intensive care unit at that time she was admitted. Urine draining from the catheter is currently free of gross hematuria. One month ago the patient says she would usually void every 2-3 hours during the day and her 3 times at night. 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 Review of Systems - Constitutional Reports fatigue, Denies chills, Denies fever - Cardiovascular Reports edema - Respiratory Denies cough - Gastrointestinal Reports as per HPI - Genitourinary Genitourinary: Reports as per HPI Past Medical History Past Medical History: Blood Disorder, Cancer, Hyperlipidemia, Hypertension, Osteoarthritis (OA), Pneumonia, Sleep Apnea/CPAP/BIPAP Additional Past Medical History / Comment(s): Pt recently admitted to [facility] on 04/25/19 with acute hypoxic respiratory failure 2ndary to acute lung injury r/t blood/platelet transfusions. Other hx: CLL, low platelets, anemia, thrombocytopenia/ptechial rash, neutropenia, current cold sores, 2014 R breast cancer with lumpectomy/chemo/radiation, CÉSAR with Cpap. History of Any Multi-Drug Resistant Organisms: None Reported Past Surgical History: Bladder Surgery, Breast Surgery, Joint Replacement, Tubal Ligation, Uterine Ablation Additional Past Surgical History / Comment(s): 04/29/19 BMA with bx, R breast lumpectomy, bladder suspension, several D&Cs, colonoscopy. Past Anesthesia/Blood Transfusion Reactions: Postoperative Nausea & Vomiting (PONV) Additional Past Anesthesia/Blood Transfusion Reaction / Comm: Pt has received blood/platelets without reaction. Smoking Status: Former smoker - Past Family History Father Family Medical History: Cancer Additional Family Medical History / Comment(s): Father had lung cancer. He was a nonsmoker. Sister(s) Family Medical History: Cancer Additional Family Medical History / Comment(s): Youngest sister has lung cancer that has metastasized to her liver Mother Family Medical History: Coronary Artery Disease (CAD) Additional Family Medical History / Comment(s): Mother of a OK at the age of 96yrs. Medications and Allergies Home Medications Medication Instructions Recorded Confirmed Type Anastrozole [Arimidex] 1 mg PO DAILY 03/28/16 05/19/19 History amLODIPine [Norvasc] 5 mg PO BID 03/28/16 05/19/19 History Pantoprazole Sodium [Protonix] 40 mg PO BID #60 tablet. 04/27/16 05/19/19 Rx Allopurinol [Zyloprim] 300 mg PO DAILY 04/25/19 05/19/19 History Atorvastatin [Lipitor] 40 mg PO HS 04/25/19 05/19/19 History Docusate [Colace] 100 mg PO DAILY 04/25/19 05/19/19 History Ferrous Sulfate [Iron (65 MG 325 mg PO DAILY 04/25/19 05/19/19 History Elemental)] valACYclovir [Valtrex] 1,000 mg PO BID #60 tab 05/15/19 05/19/19 Rx Allergies Allergy/AdvReac Type Severity Reaction Status Date / Time cefepime Allergy Rash/Hives Verified 05/22/19 12:25 chocolate flavor Allergy hives Verified 05/19/19 16:33 Surgical - Exam Vital Signs Temp Pulse Resp BP Pulse Ox 98.3 F 101 H 18 98/65 96 05/19/19 08:32 05/19/19 08:32 05/19/19 08:32 05/19/19 08:32 05/19/19 08:32 - General well developed, well nourished, no distress - ENT no hearing loss - Neck no masses, no lymphadectomy - Respiratory normal respiratory effort - Abdomen Abdomen: soft, tender (mild tenderness in the right abdomen and left lower quadrant) Results - Labs 06/04/19 07:20 06/04/19 07:20 Abnormal Lab Results - Last 24 Hours (Table) 06/03/19 06/03/19 06/03/19 Range/Units 09:19 17:28 20:09 WBC (3.8-10.6) k/uL RBC (3.80-5.40) m/uL Hgb (11.4-16.0) gm/dL Hct (34.0-46.0) % Plt Count (150-450) k/uL Neutrophils # (1.3-7.7) k/uL Sodium (137-145) mmol/L Potassium (3.5-5.1) mmol/L Glucose (74-99) mg/dL POC Glucose (mg/dL) 114 H 123 H (75-99) mg/dL Calcium (8.4-10.2) mg/dL Delta Bilirubin (0.0-0.2) mg/dL Total Protein (6.3-8.2) g/dL Albumin (3.5-5.0) g/dL Urine Protein (Negative) Urine Ketones (Negative) Urine Blood (Negative) Ur Leukocyte Esterase (Negative) Urine RBC (0-5) /hpf Urine Bacteria (None) /hpf Urine Mucus (None) /hpf Urine Yeast (Budding) (None) /hpf Crossmatch See Detail 06/04/19 06/04/19 06/04/19 Range/Units 00:05 00:30 07:03 WBC (3.8-10.6) k/uL RBC (3.80-5.40) m/uL Hgb (11.4-16.0) gm/dL Hct (34.0-46.0) % Plt Count (150-450) k/uL Neutrophils # (1.3-7.7) k/uL Sodium (137-145) mmol/L Potassium (3.5-5.1) mmol/L Glucose (74-99) mg/dL POC Glucose (mg/dL) 130 H 110 H (75-99) mg/dL Calcium (8.4-10.2) mg/dL Delta Bilirubin (0.0-0.2) mg/dL Total Protein (6.3-8.2) g/dL Albumin (3.5-5.0) g/dL Urine Protein 2+ H (Negative) Urine Ketones 1+ H (Negative) Urine Blood Large H (Negative) Ur Leukocyte Esterase Trace H (Negative) Urine RBC >182 H (0-5) /hpf Urine Bacteria Rare H (None) /hpf Urine Mucus Rare H (None) /hpf Urine Yeast (Budding) Many H (None) /hpf Crossmatch 06/04/19 06/04/19 06/04/19 Range/Units 07:20 07:20 11:19 WBC 1.2 L* (3.8-10.6) k/uL RBC 2.30 L (3.80-5.40) m/uL Hgb 6.6 L* (11.4-16.0) gm/dL Hct 19.9 L* (34.0-46.0) % Plt Count 11 L* (150-450) k/uL Neutrophils # 0.1 L* (1.3-7.7) k/uL Sodium 135 L (137-145) mmol/L Potassium 3.3 L (3.5-5.1) mmol/L Glucose 101 H (74-99) mg/dL POC Glucose (mg/dL) 126 H (75-99) mg/dL Calcium 6.1 L* (8.4-10.2) mg/dL Delta Bilirubin 0.4 H (0.0-0.2) mg/dL Total Protein 4.2 L (6.3-8.2) g/dL Albumin 2.3 L (3.5-5.0) g/dL Urine Protein (Negative) Urine Ketones (Negative) Urine Blood (Negative) Ur Leukocyte Esterase (Negative) Urine RBC (0-5) /hpf Urine Bacteria (None) /hpf Urine Mucus (None) /hpf Urine Yeast (Budding) (None) /hpf Crossmatch Microbiology - Last 24 Hours (Table) 06/01/19 21:42 Blood Culture - Preliminary Blood No Growth after 48 hours 06/02/19 16:56 Urine Culture - Final Urine,Catheterized Diabetes panel 06/04/19 Range/Units 07:20 Sodium 135 L (137-145) mmol/L Potassium 3.3 L (3.5-5.1) mmol/L Chloride 106 (98-107) mmol/L Carbon Dioxide 22 (22-30) mmol/L BUN 16 (7-17) mg/dL Creatinine 0.62 (0.52-1.04) mg/dL Glucose 101 H (74-99) mg/dL Calcium 6.1 L* (8.4-10.2) mg/dL AST 17 (14-36) U/L ALT 33 (9-52) U/L Alkaline Phosphatase 50 (38-126) U/L Total Protein 4.2 L (6.3-8.2) g/dL Albumin 2.3 L (3.5-5.0) g/dL Calcium panel 06/04/19 Range/Units 07:20 Calcium 6.1 L* (8.4-10.2) mg/dL Albumin 2.3 L (3.5-5.0) g/dL Pituitary panel 06/04/19 Range/Units 07:20 Sodium 135 L (137-145) mmol/L Potassium 3.3 L (3.5-5.1) mmol/L Chloride 106 (98-107) mmol/L Carbon Dioxide 22 (22-30) mmol/L BUN 16 (7-17) mg/dL Creatinine 0.62 (0.52-1.04) mg/dL Glucose 101 H (74-99) mg/dL Calcium 6.1 L* (8.4-10.2) mg/dL Adrenal panel 06/04/19 Range/Units 07:20 Sodium 135 L (137-145) mmol/L Potassium 3.3 L (3.5-5.1) mmol/L Chloride 106 (98-107) mmol/L Carbon Dioxide 22 (22-30) mmol/L BUN 16 (7-17) mg/dL Creatinine 0.62 (0.52-1.04) mg/dL Glucose 101 H (74-99) mg/dL Calcium 6.1 L* (8.4-10.2) mg/dL Total Bilirubin 0.8 (0.2-1.3) mg/dL AST 17 (14-36) U/L ALT 33 (9-52) U/L Alkaline Phosphatase 50 (38-126) U/L Total Protein 4.2 L (6.3-8.2) g/dL Albumin 2.3 L (3.5-5.0) g/dL Assessment and Plan Assessment: History of gross hematuria secondary to spontaneous intrarenal hemorrhage related to severe thrombocytopenia. Her bleeding appears to be confined to the kidney and at the present time she does not actually have gross hematuria. Surgical treatment of the bleeding is not necessary as it has subsided and her underlying problem the is not an abnormal kidney but thrombocytopenia. Her intrarenal bleeding may stop spontaneously as it remains intraparenchymal if her thrombocytemia can be corrected.
[2019-06-04] MEDS: metroNIDAZOLE 500 MG TAB PO SCH ×2 (16:17→23:08)
[2019-06-04] MEDS ORDERED: TPN PER PHARMACY MISCELLANE PRN (16:21)
--- NOTE | 2019-06-04 16:42 | PN ---
PROGRESS NOTE DATE OF SERVICE: 06/04/2019 REASON FOR FOLLOWUP: Pseudomonas bacteremia and diverticulitis. INTERVAL HISTORY: The patient did spike a fever of 102.7 last night; however, it happened while the patient was getting transfusion; independently improved after the transfusion was stopped. The patient denies having any chest pain or shortness of breath or cough. The patient noticed her abdominal pain has improved. Currently denies having any left- sided abdominal pain. She still has some diarrhea. PHYSICAL EXAMINATION: Blood pressure 143/70 with a pulse of 95, temperature 97.8. She is 98% on 2 L nasal cannula. General description is an elderly female lying in bed in no distress. RESPIRATORY SYSTEM: Unlabored breathing. Clear to auscultation anteriorly. HEART: S1, S2. Regular rate and rhythm. ABDOMEN: Soft. No tenderness. No guarding or rigidity. EXTREMITIES: Some trace edema of the feet. LABS: Hemoglobin is 6.6, white count 1.2 with a BUN of 16, creatinine 0.62. DIAGNOSTIC IMPRESSION AND PLAN: Patient with Pseudomonas aeruginosa bacteremia in this patient whose follow-up blood culture has been negative. CT has been suspicious for diverticulitis with possible perforation. However, the patient does not have significant abdominal symptoms or any tenderness in the left lower quadrant area. As per discussion with Oncology, the patient needs chemo for her underlying blood dyscrasia, and currently the benefit may outweigh the risk. This was discussed in detail with the patient as well as the oncologist, and the patient is agreeable to risk of chemo at this point. Continue with Azactam and Flagyl at this point and monitor clinical course closely. Continue with supportive care. MMODL / IJN: [id number] /
[2019-06-04 16:50] LABS: Glucose,Whole Blood 140 mg/dL (75-99)
[2019-06-04] MEDS: ATORVASTATIN 40 MG TAB PO SCH (20:27)
[2019-06-04 20:43] LABS: Glucose,Whole Blood 125 mg/dL (75-99)
[2019-06-04] MEDS ORDERED: LIDOCAINE-PRILOCAINE 2.5-2.5% CREAM 5 GM TUBE TOPICAL STA (21:37)
[2019-06-04] MEDS: traMADol 50 MG TAB PO PRN (23:08)
[2019-06-05] MEDS: POTASSIUM CHLORIDE 20 MEQ in WATER FOR INJECTION 1 100ML.BAG IVPB SCH ×2 (00:22→03:29)
[2019-06-05] MEDS: HYDROmorphone 0.5 MG/0.5 ML SYRINGE IVP PRN ×3 (01:36→17:49)
[2019-06-05] MEDS: ONDANSETRON 4 MG/2 ML VIAL IVP PRN (01:50)
[2019-06-05] MEDS: AZTREONAM 2 GM in SODIUM CHLORIDE 0.9% 100 ML IVPB SCH ×3 (06:10→20:56)
[2019-06-05] MEDS: SODIUM CHLORIDE 0.9% 500 ML 500 ML IV SCH (06:11)
[2019-06-05 07:17] LABS: Glucose,Whole Blood 114 mg/dL (75-99)
--- NOTE | 2019-06-05 08:14 | CT ---
EXAMINATION TYPE: CT brain wo con DATE OF EXAM: 06/05/2019 HISTORY: left eye droop CT DLP: 1110.4 mGycm. Automated Exposure Control for Dose Reduction was Utilized. TECHNIQUE: CT scan of the head is performed without contrast. COMPARISON: None. FINDINGS: There is no acute intracranial hemorrhage or midline shift identified. There is diffuse v entricular and sulcal prominence consistent with diffuse age-related cerebral atrophy. There is low- attenuation in the periventricular white matter consistent with chronic small vessel ischemic change in patient of this age. The globes are intact and the visualized sinuses are clear. IMPRESSION: No acute intracranial hemorrhage or midline shift. There is mild to moderate diffuse ag e-related cerebral atrophy and chronic small vessel ischemic change noted.
[2019-06-05 08:15] LABS: Basophils % (A) 0 %; Eosinophils % (A) 1 %; Lymphocytes % (A) 92 %; MCH 28.7 pg (25.0-35.0); MCHC 33.2 g/dL (31.0-37.0); MCV 86.5 fL (80.0-100.0); Mean Platelet Volume 9.4; Monocytes % (A) 1 %; RBC 2.89 m/uL (3.80-5.40); RDW 13.6 % (11.5-15.5); WBC 2.2 k/uL (3.8-10.6)
[2019-06-05 08:19] LABS: Platelet Count 7 k/uL (150-450)
[2019-06-05 08:22] LABS: HGB 8.3 gm/dL (11.4-16.0)
[2019-06-05 08:32] LABS: ALT 30 U/L (9-52); AST 15 U/L (14-36); African American GFR (CKD) >90 (>60 ml/min/1.73 sqM); Albumin 2.5 g/dL (3.5-5.0); Alkaline Phosphatase 57 U/L (38-126); Anion Gap 9 mmol/L; Bilirubin, Delta 0.4 mg/dL (0.0-0.2); Bilirubin,Unconjugated 0.6 mg/dL (0.0-1.1); Blood Urea Nitrogen 14 mg/dL (7-17); Carbon Dioxide 22 mmol/L (22-30); Chloride 106 mmol/L (98-107); Glucose 111 mg/dL (74-99); Magnesium 1.6 mg/dL (1.6-2.3); Potassium 3.8 mmol/L (3.5-5.1); Sodium 137 mmol/L (137-145); Total Protein 4.9 g/dL (6.3-8.2)
[2019-06-05 08:49] LABS: Calcium 6.3 mg/dL (8.4-10.2)
[2019-06-05 08:51] LABS: Poikilocytosis (M) Present
[2019-06-05 08:52] LABS: Neutrophils # (A) 0.1 k/uL (1.3-7.7); Neutrophils % (A) 5 %
[2019-06-05] MEDS: valACYclovir HCL 1,000 MG TABLET PO SCH ×2 (08:57→20:29)
[2019-06-05] MEDS: metroNIDAZOLE 500 MG TAB PO SCH ×2 (08:57→17:47)
[2019-06-05] MEDS: ALLOPURINOL 300 MG TAB PO SCH (08:57)
[2019-06-05] MEDS: PANTOPRAZOLE 40 MG TABLET PO SCH ×2 (08:57→18:09)
[2019-06-05] MEDS: amLODIPine 5 MG TAB PO SCH (08:57)
[2019-06-05] MEDS: BENZONATATE 100 MG CAP PO SCH ×3 (08:57→21:47)
[2019-06-05] MEDS: POLYETHYLENE GLYCOL 3350 17 GM POWD.PACK PO SCH (08:58)
[2019-06-05] MEDS: SENNOSIDES-DOCUSATE SODIUM 1 EACH TAB PO SCH ×2 (08:58→20:30)
[2019-06-05] MEDS: INSULIN ASPART (NovoLOG) 100 UNIT/ML VIAL SQ SCH ×3 (08:59→18:03)
[2019-06-05] MEDS ORDERED: LIDOCAINE-PRILOCAINE 2.5-2.5% CREAM 5 GM TUBE TOPICAL PRN (09:05)
[2019-06-05] MEDS: FILGRASTIM-SNDZ 480 MCG/0.8 ML SYRINGE SQ SCH (09:35)
[2019-06-05 11:34] LABS: Glucose,Whole Blood 105 mg/dL (75-99)
--- NOTE | 2019-06-05 11:50 | P.PN ---
<Ghazal Mcintosh A - Last Filed: 06/05/19 14:09> Subjective Progress Note Date: 06/05/19 CHIEF COMPLAINT: Diverticulitis HISTORY OF PRESENT ILLNESS: Patient examined at the bedside this morning. She reveals her abdominal pain is improved from yesterday, but reports her pain is more on the right side of her abdomen today rather than her left. Denies nausea or vomiting. Had issues with her port last night and needle was removed. Currently not accessed. Patient to begin TPN today. PHYSICAL EXAM: VITAL SIGNS: Reviewed. GENERAL: Well-developed in no acute distress. HEENT: No sclera icterus. Extraocular movements grossly intact. Moist buccal mucosa. Head is atraumatic, normocephalic. ABDOMEN: Soft. Nondistended. Mild tenderness with palpation to lower right quadrant. No peritoneal signs. NEUROLOGIC: Alert and oriented. Cranial nerves II through XII grossly intact. ASSESSMENT: 1. Acute diverticulitis with microperforation, repeat CT can not exclude fistula 2. Pancytopenia 3. Diarrhea, C. diff negative 4. History of breast cancer and chronic lymphocytic leukemia PLAN: 1. Continue antibiotics. Infectious disease following 2. Further evaluation of port today. Port-a-gram ordered per oncology 3. Patient to begin TPN today 4. No surgical intervention recommended. Continue conservative measures. Nurse practitioner note has been reviewed by physician. Signing provider agrees with the documented findings, assessment, and plan of care. Objective - Vital Signs Vital signs: Vital Signs Temp 97.8 F 06/05/19 05:00 Pulse 89 06/05/19 05:00 Resp 18 06/05/19 05:00 BP 155/73 06/05/19 05:00 Pulse Ox 97 06/05/19 05:00 Intake & Output 06/04/19 06/05/19 06/05/19 18:59 06:59 18:59 Intake Total 310 380 Output Total 450 900 Balance -140 -520 Weight 100.5 kg Intake: Intake, IV Titration 380 Amount Aztreonam 2 gm In Sodium 100 Chloride 0.9% 100 ml @ 100 mls/hr IVPB Q8H [facility] Rx#:[id number] Potassium Chloride 20 meq 200 In Water For Injection 1 100ml.bag @ 50 mls/hr IVPB Q2H [facility] Rx#: [id number] Sodium Chloride 0.9% 500 80 ml 500 ml @ 20 mls/hr IV .Q24H [facility] Rx#:[id number] Blood Product 310 Rc Irr As1 Unit 310 [id number] Output: Urine 450 900 Uretheral (Espinoza) 900 Other: Voiding Method Indwelling Catheter Indwelling Catheter Indwelling Catheter # Bowel Movements 3 2 - Labs CBC & Chem 7: 06/05/19 07:55 06/05/19 07:55 Labs: Abnormal Lab Results - Last 24 Hours (Table) 06/03/19 06/04/19 06/04/19 Range/Units 09:19 16:48 20:42 WBC (3.8-10.6) k/uL RBC (3.80-5.40) m/uL Hgb (11.4-16.0) gm/dL Hct (34.0-46.0) % Plt Count (150-450) k/uL Neutrophils # (1.3-7.7) k/uL Creatinine (0.52-1.04) mg/dL Glucose (74-99) mg/dL POC Glucose (mg/dL) 140 H 125 H (75-99) mg/dL Calcium (8.4-10.2) mg/dL Delta Bilirubin (0.0-0.2) mg/dL Total Protein (6.3-8.2) g/dL Albumin (3.5-5.0) g/dL Crossmatch See Detail 06/05/19 06/05/19 06/05/19 Range/Units 07:11 07:55 07:55 WBC 2.2 L (3.8-10.6) k/uL RBC 2.89 L (3.80-5.40) m/uL Hgb 8.3 L D (11.4-16.0) gm/dL Hct 25.0 L (34.0-46.0) % Plt Count 7 L* (150-450) k/uL Neutrophils # 0.1 L* (1.3-7.7) k/uL Creatinine 0.51 L (0.52-1.04) mg/dL Glucose 111 H (74-99) mg/dL POC Glucose (mg/dL) 114 H (75-99) mg/dL Calcium 6.3 L* (8.4-10.2) mg/dL Delta Bilirubin 0.4 H (0.0-0.2) mg/dL Total Protein 4.9 L (6.3-8.2) g/dL Albumin 2.5 L (3.5-5.0) g/dL Crossmatch 06/05/19 Range/Units 11:31 WBC (3.8-10.6) k/uL RBC (3.80-5.40) m/uL Hgb (11.4-16.0) gm/dL Hct (34.0-46.0) % Plt Count (150-450) k/uL Neutrophils # (1.3-7.7) k/uL Creatinine (0.52-1.04) mg/dL Glucose (74-99) mg/dL POC Glucose (mg/dL) 105 H (75-99) mg/dL Calcium (8.4-10.2) mg/dL Delta Bilirubin (0.0-0.2) mg/dL Total Protein (6.3-8.2) g/dL Albumin (3.5-5.0) g/dL Crossmatch Microbiology - Last 24 Hours (Table) 06/01/19 21:42 Blood Culture - Preliminary Blood No Growth after 72 hours <Nestor James - Last Filed: 06/05/19 18:36> Subjective As above. Patient says her pain is slightly improved. Apparently they are going to give a dose of chemotherapy this evening. Risk of progressive sepsis has been discussed with the patient and her family. We'll follow closely. Objective - Vital Signs Vital signs: Vital Signs Temp 99.3 F 06/05/19 14:13 Pulse 98 06/05/19 14:13 Resp 16 06/05/19 14:13 BP 162/74 06/05/19 14:13 Pulse Ox 91 L 06/05/19 14:13 Intake & Output 06/04/19 06/05/19 06/05/19 18:59 06:59 18:59 Intake Total 177 276 8152 Output Total 368 486 7563 Balance -140 -520 -400 Weight 100.5 kg 98.5 kg Intake: IV 400 0.9 400 Intake, IV Titration 380 Amount Aztreonam 2 gm In Sodium 100 Chloride 0.9% 100 ml @ 100 mls/hr IVPB Q8H [facility] Rx#:[id number] Potassium Chloride 20 meq 200 In Water For Injection 1 100ml.bag @ 50 mls/hr IVPB Q2H [facility] Rx#: [id number] Sodium Chloride 0.9% 500 80 ml 500 ml @ 20 mls/hr IV .Q24H [facility] Rx#:[id number] Blood Product 310 600 Platelet Irr Pheresis 2 300 Acda Unit [id number] Rc Irr As1 Unit 310 [id number] Output: Urine 492 236 5525 Uretheral (Espinoza) 900 800 Other: Voiding Method Indwelling Catheter Indwelling Catheter Indwelling Catheter # Bowel Movements 3 2 3 - Labs CBC & Chem 7: 06/05/19 07:55 06/05/19 07:55 Labs: Abnormal Lab Results - Last 24 Hours (Table) 06/04/19 06/05/19 06/05/19 Range/Units 20:42 07:11 07:55 WBC 2.2 L (3.8-10.6) k/uL RBC 2.89 L (3.80-5.40) m/uL Hgb 8.3 L D (11.4-16.0) gm/dL Hct 25.0 L (34.0-46.0) % Plt Count 7 L* (150-450) k/uL Neutrophils # 0.1 L* (1.3-7.7) k/uL Creatinine (0.52-1.04) mg/dL Glucose (74-99) mg/dL POC Glucose (mg/dL) 125 H 114 H (75-99) mg/dL Calcium (8.4-10.2) mg/dL Ionized Calcium Carlos (4.5-5.3) mg/dL Phosphorus (2.5-4.5) mg/dL Delta Bilirubin (0.0-0.2) mg/dL Total Protein (6.3-8.2) g/dL Albumin (3.5-5.0) g/dL 06/05/19 06/05/19 06/05/19 Range/Units 07:55 11:31 14:14 WBC (3.8-10.6) k/uL RBC (3.80-5.40) m/uL Hgb (11.4-16.0) gm/dL Hct (34.0-46.0) % Plt Count (150-450) k/uL Neutrophils # (1.3-7.7) k/uL Creatinine 0.51 L (0.52-1.04) mg/dL Glucose 111 H (74-99) mg/dL POC Glucose (mg/dL) 105 H (75-99) mg/dL Calcium 6.3 L* (8.4-10.2) mg/dL Ionized Calcium Carlos 3.9 L (4.5-5.3) mg/dL Phosphorus 1.7 L (2.5-4.5) mg/dL Delta Bilirubin 0.4 H (0.0-0.2) mg/dL Total Protein 4.9 L (6.3-8.2) g/dL Albumin 2.5 L (3.5-5.0) g/dL 06/05/19 Range/Units 17:33 WBC (3.8-10.6) k/uL RBC (3.80-5.40) m/uL Hgb (11.4-16.0) gm/dL Hct (34.0-46.0) % Plt Count (150-450) k/uL Neutrophils # (1.3-7.7) k/uL Creatinine (0.52-1.04) mg/dL Glucose (74-99) mg/dL POC Glucose (mg/dL) 108 H (75-99) mg/dL Calcium (8.4-10.2) mg/dL Ionized Calcium Carlos (4.5-5.3) mg/dL Phosphorus (2.5-4.5) mg/dL Delta Bilirubin (0.0-0.2) mg/dL Total Protein (6.3-8.2) g/dL Albumin (3.5-5.0) g/dL Microbiology - Last 24 Hours (Table) 06/01/19 21:42 Blood Culture - Preliminary Blood No Growth after 72 hours
--- NOTE | 2019-06-05 12:12 | P.PN ---
Subjective Progress Note Date: 06/05/19 Principal diagnosis: Pancytopenia secondary to CLL, going to start chemo/monoclonal antibody therapy In f/u today pt is sleeping, she is tired, refused CT head initially for left e ye ptosis, she did eventually agree-negative for CVA, acute process. She has no appetite, dry cough with talking or movement, SOB with activity, progressive weakness, frustrated. Had burning with potassium administration in her port, she continues to have stool urgency, abd is tender, not progressive at this time, ribs hurt from cough Objective - Vital Signs Vital signs: Vital Signs Temp 98.5 F 06/05/19 11:47 Pulse 91 06/05/19 11:47 Resp 14 06/05/19 11:47 BP 171/77 06/05/19 11:47 Pulse Ox 92 L 06/05/19 11:47 Intake & Output 06/04/19 06/05/19 06/05/19 18:59 06:59 18:59 Intake Total 310 380 0 Output Total 450 900 Balance -140 -520 0 Weight 100.5 kg Intake: Intake, IV Titration 380 Amount Aztreonam 2 gm In Sodium 100 Chloride 0.9% 100 ml @ 100 mls/hr IVPB Q8H [facility] Rx#:[id number] Potassium Chloride 20 meq 200 In Water For Injection 1 100ml.bag @ 50 mls/hr IVPB Q2H [facility] Rx#: [id number] Sodium Chloride 0.9% 500 80 ml 500 ml @ 20 mls/hr IV .Q24H [facility] Rx#:[id number] Blood Product 310 0 Platelet Irr Pheresis 2 0 Acda Unit [id number] Rc Irr As1 Unit 310 [id number] Output: Urine 450 900 Uretheral (Espinoza) 900 Other: Voiding Method Indwelling Catheter Indwelling Catheter Indwelling Catheter # Bowel Movements 3 2 - Constitutional General appearance: Present: no acute distress, obese - EENT EENT Comment(s): left eye lid ptosis, left eye did acclimate in a few seconds when pt purposefully opened it, EOMs intact, PERRL. Dry mouth Eyes: Present: anicteric sclerae - Respiratory Details: weak respiratory effort Respiratory: bilateral: CTA, diminished (bases) - Cardiovascular Heart sounds: normal: S1, S2 - Gastrointestinal General gastrointestinal: Present: normal bowel sounds, soft, tenderness Localized gastrointestinal: tender: diffuse (with deep palpation) - Musculoskeletal Musculoskeletal: Present: generalized weakness - Psychiatric Psychiatric: Present: A&O x's 3, appropriate affect, intact judgment & insight - Labs CBC & Chem 7: 06/05/19 07:55 06/05/19 07:55 Labs: Abnormal Lab Results - Last 24 Hours (Table) 06/03/19 06/04/19 06/04/19 Range/Units 09:19 16:48 20:42 WBC (3.8-10.6) k/uL RBC (3.80-5.40) m/uL Hgb (11.4-16.0) gm/dL Hct (34.0-46.0) % Plt Count (150-450) k/uL Neutrophils # (1.3-7.7) k/uL Creatinine (0.52-1.04) mg/dL Glucose (74-99) mg/dL POC Glucose (mg/dL) 140 H 125 H (75-99) mg/dL Calcium (8.4-10.2) mg/dL Delta Bilirubin (0.0-0.2) mg/dL Total Protein (6.3-8.2) g/dL Albumin (3.5-5.0) g/dL Crossmatch See Detail 06/05/19 06/05/19 06/05/19 Range/Units 07:11 07:55 07:55 WBC 2.2 L (3.8-10.6) k/uL RBC 2.89 L (3.80-5.40) m/uL Hgb 8.3 L D (11.4-16.0) gm/dL Hct 25.0 L (34.0-46.0) % Plt Count 7 L* (150-450) k/uL Neutrophils # 0.1 L* (1.3-7.7) k/uL Creatinine 0.51 L (0.52-1.04) mg/dL Glucose 111 H (74-99) mg/dL POC Glucose (mg/dL) 114 H (75-99) mg/dL Calcium 6.3 L* (8.4-10.2) mg/dL Delta Bilirubin 0.4 H (0.0-0.2) mg/dL Total Protein 4.9 L (6.3-8.2) g/dL Albumin 2.5 L (3.5-5.0) g/dL Crossmatch 06/05/19 Range/Units 11:31 WBC (3.8-10.6) k/uL RBC (3.80-5.40) m/uL Hgb (11.4-16.0) gm/dL Hct (34.0-46.0) % Plt Count (150-450) k/uL Neutrophils # (1.3-7.7) k/uL Creatinine (0.52-1.04) mg/dL Glucose (74-99) mg/dL POC Glucose (mg/dL) 105 H (75-99) mg/dL Calcium (8.4-10.2) mg/dL Delta Bilirubin (0.0-0.2) mg/dL Total Protein (6.3-8.2) g/dL Albumin (3.5-5.0) g/dL Crossmatch Microbiology - Last 24 Hours (Table) 06/01/19 21:42 Blood Culture - Preliminary Blood No Growth after 72 hours - Imaging and Cardiology CT Scan - head: report reviewed Assessment and Plan (1) Abdominal pain Narrative/Plan: Stable. Close monitoring, pt encouraged to report changes INOCENTE Strict I&Os Current Visit: Yes Status: Acute Priority: High Code(s): R10.9 - UNSPECIFIED ABDOMINAL PAIN SNOMED Code(s): 32060833 (2) Pancytopenia Narrative/Plan: Secondary to disease Transfuse for hemoglobin less than 7, Hgb stable today. Transfuse platelets today 7,000. Transfuse for a platelet count less than 10,000 or symptomatic. No aspirin, NSAIDs, anticoagulation. Continue G-CSF for an absolute neutrophil count less than 1000. Current Visit: Yes Status: Acute Priority: High Code(s): D61.818 - OTHER PANCYTOPENIA SNOMED Code(s): 754409567 (3) Moderate protein-calorie malnutrition Narrative/Plan: Plan is for NPO to reduce risk of complications. TPN ordered Current Visit: Yes Status: Acute Priority: High Code(s): E44.0 - MODERATE PROTEIN-CALORIE MALNUTRITION SNOMED Code(s): 624497122 (4) Physical debility Narrative/Plan: Pt has been resistant to rehabilitation. Cont to encourage activity as tolerated Current Visit: Yes Status: Acute Priority: High Code(s): R53.81 - OTHER MALAISE SNOMED Code(s): 17924282 (5) Hypogammaglobulinemia Narrative/Plan: S/P 20gm IVIg. Current Visit: Yes Status: Acute Priority: High Code(s): D80.1 - NONFAMILIAL HYPOGAMMAGLOBULINEMIA SNOMED Code(s): 367732601 (6) CLL (chronic lymphocytic leukemia) Narrative/Plan: Plan is to start Rit/bendeka today Pending port a cath evaluation Current Visit: Yes Status: Chronic Priority: High Code(s): C91.90 - LYMPHOID LEUKEMIA, UNSPECIFIED NOT HAVING ACHIEVED REMISSION SNOMED Code(s): 82150640 (7) Bacteremia due to Pseudomonas Current Visit: Yes Status: Resolved Priority: High Code(s): R78.81 - BACTEREMIA SNOMED Code(s): 365358270113 Plan: Pt being followed by IM, Surg, Onc, ID. She is aware of her high risk situation. Will move forward with treatment and close f/u.
--- NOTE | 2019-06-05 13:04 | P.PN ---
Subjective this Is a 73-year-old female with a known history of hypertension, hyperlipidemia and CLL and history of breast cancer in 2014 status post chemoradiation and surgery who is currently being treated for CLL with imatinab and is on follow-up with Dr. Oliva as an outpatient was sent to Hospital due to thrombocytopenia. Next a 2 been discharged from the hospital she got platelet and blood transfusion at hematology office, however patient was developing diarrhea about 3 times per day with no significant abdominal pain for about one week, associated with generalized weakness and malaise and dry cough for 3 days with no significant dyspnea or chest pain. Patient went for her hematology office follow-up today and her blood work showed slow platelet count and patient was sent to the hospital. Also on the hospital patient was put back on oxygen, she was discharged on room air last time. Patient was recently discharged from hospital 4 days ago for acute lung injury and possible pneumonia, related to multiple blood/platelet transfusion and was treated in the ICU, after stabilization she was discharged. Also at that time patient has pancytopenia, and the discharge age her white cell count was 11.7 K, hemoglobin 8.1 and platelet 18 K. This time hematology oncology team send the patient to emergency room for pancytopenia with WBC 3.0K, hemoglobin 6.6 and platelet 2K. INR is 1.0, potassium of 3.1, creatinine 0.9, and lactic acid is elevated at 2.3. On admission patient has been afebrile, Restoril Vitas looks stable, she was saturating 87-88% on room air, saturation went up to 96 and 3 L. Chest x-ray: Showing cardiomegaly with bilateral multifocal infiltrates. Patient is getting IV fluids at 100 L/h, also she supposed to get platelets and blood transfusion today, discussed with staff. Also patient was started on vancomycin and cefepime. 05/20/2019 Patient yesterday was hypotensive and tachypneic and she was saturating 93-97% on 3 L oxygen, staff concerned that her more fluid can compromise her resp function so patient was transferred to the intensive care unit, as per staff pt can not go to [facility] unit. today is more awake and, however she is tachypneic with respiratory rate 22-25, blood pressure is improved to 114/70, she saturating 93-94% and is related to her, she had fever of 103.3 yesterday. Labs from today showing slight improvement in his WBC at 1.6K, hemoglobin improved to 6.7, platelets 3K. Sodium 136, creatinine normal at 0.7, sugar control. Patient remains in the ICU with on antibiotics in the form of vancomycin and cefepime is provided to the patient. Chest x-ray showing diffuse bilateral infiltrate with left pleural effusion, pneumonia versus pulmonary edema. 05/21/2019 pt is in the ICU, she is doing better , however she is still tachypenic, no chest pain or coughing , her blood culture is growing pseudomonas which is mostly related to her current sepsis , ID team already stopped vancomycin and increased the dose of cefepime, her cxr shows stable findings , source could be from port althought she has evidence of diverticulitis as well but her pain is not major in her belly , pt is still generally weak , pt is constipated rather than diarrhea, her pancytopenia is worse , no fever today , pt vitals remain stable. iv fluids were stopped . pt is felt stable to go to medical floor from yesterday however critical care team recommended to keep monitoring pt in icu for now 05/22/2019 pt is transferred to the general medical floor today , he breathing looks better , coughing and weakness are improving as well, no more abd pain and her LLQ tenderness improved as well. she is hemodynamically stable , labs shwoing improving leukocytes up to 1.2 , hb stable at 7.5 , platelet improved to 12k, pt has low grade fever yesterday night at 99.9, bp stable, pt developed rash on the trunk and mainly back and thought it is due to cefepime which is switched to aztreonam as per ID team. Patient has been taking care of by Dr. Cheung over the weekend and on a Sunday. 05/26/2019 Patient is seen in the general medical floor, she looks better, breathing more quiet with less respiratory distress. No chest pain. Occasional coughing. She remains on is aztreonam and Valacyclovir. Infectious disease R following the case closely. Her WBC is stable at 1.7, hemoglobin 7.5 and platelet 19. Discussed the case with oncology team. Patient could not work with PT/OT today and the proper way, whoever evaluated tomorrow We'll double check with infectious disease and oncology team about the discharge planning Discharge planning in 24-48 hours 05/27/2019 Patient clinically doing well, with her breathing is a stable. No chest pain. No dyspnea. Occasional coughing. Pancytopenia is worsened today with WBC down to 1.3, hemoglobin 6.9, platelets 8K, patient is getting been transfused blood and platelets. ID team recommended to continue with antibiotics aztreonam for 1 more week for her Pseudomonas infection. 05/28/2019 pt is still not cleared by oncology team , she is clinically the same or gradually improving , no new complaint , pt platelet are low again at 9k, and oncology team are planing for platelet transfusino , tomorrow she will get another dose of rituxan , will need 2 wks of aztreonam per ID 05/29/2019 Patient is awake with no chest pain or dyspnea. She has some abdominal discomfort. Vitals stable however she still have severe pancytopenia with WBC at 1.4, hemoglobin 7.5 and platelets 8, and absolute neutrophil is 0.1. rest of labs looked unremarkable. Patient is scheduled to get rituxan today or tomorrow by the hematology/oncology team. Patient might benefit from ECF upon discharge, discussed with group social worker, however patient did not want to discuss it with the instability today 05/30/2019 Patient is awake with no chest pain or dyspnea. Her cough is minimal. Hemodynamically she is a stable However yesterday she developed right lower abdominal and right flank pain with tenderness associated with hematuria. Surgical team is been consulted and CAT scan of the abdomen was done followed by ultrasound showing larger right kidney which is suspicious for pyelonephritis, less likely renal infarct for which urologist evaluated the patient. Patient most likely she has seeding bacteria from her infection into her right kidney. Patient currently remains on antibiotics by infectious disease recommendation. Patient currently denies aztreonam. Patient urinalysis is showing moderate hematuria with RBC is more than 182, but not suspicious for infection. Pain management is provided with Dilaudid. Other labs showing severe pancytopenia with WBC 1.0, hemoglobin 5.9, platelets count 18 K. 05/31/2019 Patient is awake with no chest pain or dyspnea. Cough is better. She still have same right sided abdominal pain. No dysuria. She has low-grade temperature today. As a Vitas looks within normal limits. Patient getting blood and platelet transfusion today for thrombocytopenia and anemia. Her WBCs today is 1.6, hemoglobin 6.5 and platelets were 18 K yesterday, not repeated platelets today. Potassium is 3.3 which is been replaced and creatinine 0.5, sugar is controlled. Patient rituxan is healthy now, possible total Sunday. 06/01/2019 Patient basically looks the same as yesterday. However she has several bouts of loose bowel movement. Laxative or stopped. Her abdominal pain in the right lower quadrant looks the same and she has occasional bowel spasms. No nausea vomiting. She is breathing quietly. Vitals are stable. Her WBCs is slightly improved to 1.7, hemoglobin at 7.1 and platelets at 15 K. She remains on aztreonam for now. 06/02/2019 Patient lying in bed, not in respiratory distress. No chest pain/she has right lower quadrant abdominal pain gradually improving. no new complaints. . She is hemodynamically stable. She still running fever of 100.2F today. She still have pancytopenia with WBC 1.3K, platelets 8K and hemoglobin is 7.2. The case with the hematology/oncology team, withholding chemotherapy. Patient will be afebrile for 48 hours. Patient remains on aztreonam for now as per ID recommendation. 06/03/2019 Patient's still have abdominal pain on the right side, little bit moved up. She starting diet well, she still have dry cough. She has no fever since yesterday night. Patient is getting blood and platelet transfusion today as her platelet count is 10 K and hemoglobin dropped to 6.7. WBC is 1.5K. Patient remains on antibiotics and with monitoring fever and signs of infection and sepsis. 06/04/2019 Patient is awake with no chest pain or dyspnea. However she still have abdominal pain although it looks somewhat stable over the last few days and from yesterday. Her pain mainly in the lower abdomen and right and left sides. No pain in the upper abdomen. No nausea vomiting. She has fever of 1 or 2 today. She still severely pancytopenic and yesterday she could not tolerate platelet transfusion for the first time and has to be stopped. Patient yesterday she had CAT scan of the abdomen and pelvis showing persistent acute diverticulitis in the midsigmoid: With some progression with mild to moderate pelvic free fluid and mild ascites with increased inflammation. There was concerns for perforation. Also there is development of 3.4 x 2.2 cm intramural abscess in the sigmoid colon on. With a large right kidney suspicious for pyelonephritis or intraparenchymal hemorrhage which is felt is more likely. Also she has small to moderate bilateral pleural effusion with possible cholelithiasis. Patient is been followed by several consultants, oncology team because of her abnormal T held on her chemotherapy today, originally planned to have chemother apy today for worsening pancytopenia related to her CLL. Also infectious disease are recommended to continue with the same antibiotics and surgeon also evaluated the patient and he wanted to continue with conservative management for now. Also consulted the pulmonary/critical care team for bilateral pleural effusion and possible worsening of her general condition especially if chemotherapy was restarted, Dr. castellanos group have already evaluated the patient in the previous stay during this admission. Case was discussed with the surgery, pulmonary and oncology team 06/05/2019 Patient port in the left upper chest was not working properly and it was burning, was taken out today. Patient is still nothing by mouth. Her abdominal pain is stable. She is passing gases with no bowel movement. She has some diarrhea earlier. However C. diff was negative. Patient has been afebrile for more than 48 hours now. Hemodynamically stable. Her pancytopenia is a slightly improved WBC up to 2.2, hemoglobin 8.3 over platelets still low at 7K. Creatinine is stable at 0.5, there were enzymes not elevated. Urinalysis yesterday was showing large blood review of her intraparenchymal hemorrhage into her right kidney related to thrombocytopenia. No new culture results. CT of the brain today showing no new hemorrhage. Oncology team are planning to treatment with chemotherapy with a close monitoring. No surgical intervention needed currently by the surgical team. Patient remains on aztreonam for now. With the plan for chemotherapy sewn by oncology team. Pulmonary/critical care team are also aware of the patient Review of systems CONSTITUTIONAL: no malaise, no fatigue. HEENT: No recent visual problems or hearing problems. Denied any sore throat. CARDIOVASCULAR: No orthopnea, PND, no palpitations, no syncope. PULMONARY: No shortness of breath, no hemoptysis. GASTROINTESTINAL: Normoactive bowel sounds. NEUROLOGICAL: No headaches, no weakness, no numbness. HEMATOLOGICAL: Denies any bleeding or petechiae. GENITOURINARY: Denies any burning micturition, frequency, or urgency. MUSCULOSKELETAL/RHEUMATOLOGICAL: Denies any joint pain, swelling, or any muscle pain. ENDOCRINE: Denies any polyuria or polydipsia. Active Medications Generic Name Dose Route Start Last Admin Trade Name Freq PRN Reason Stop Dose Admin Acetaminophen 650 mg 06/01/19 21:33 06/03/19 20:51 Tylenol Tab PO 650 mg Q4HR PRN Administration Fever and/ or Pain Acetaminophen 1,000 mg 06/05/19 16:00 Tylenol Tab PO 06/05/19 16:01 ONCE ONE Allopurinol 300 mg 05/20/19 09:00 06/05/19 08:57 Zyloprim PO 300 mg DAILY [facility] Administration Amlodipine Besylate 5 mg 06/03/19 12:45 06/05/19 08:57 Norvasc PO 5 mg DAILY [facility]E Administration Atorvastatin Calcium 40 mg 05/19/19 21:00 06/04/19 20:27 Lipitor PO 40 mg HS [facility]E Administration Benzonatate 200 mg 06/02/19 10:30 06/05/19 08:57 Tessalon Perles PO 200 mg TID [facility]E Administration Calcium Carbonate/Glycine 500 mg 05/24/19 11:11 05/29/19 09:17 Tums PO 500 mg QID PRN Administration Heartburn Al Hydroxide/Mg Hydroxide 30 0 ml 05/20/19 09:44 05/30/19 10:57 ml/ Lidocaine HCl 30 ml/ PO 5 ml Diphenhydramine HCl 75 mg/ QID PRN Administration Acetaminophen 960 mg Cold Sores Dexamethasone Sodium Phosphate 10 mg 06/06/19 16:00 Decadron IV 06/06/19 16:01 ONCE ONE Diphenhydramine HCl 50 mg 06/05/19 16:00 Benadryl IVP 06/05/19 16:01 ONCE ONE Famotidine 20 mg 06/05/19 16:00 Pepcid IVP 06/06/19 16:01 Q24H VAL[facility]E Filgrastim 480 mcg 05/19/19 12:15 06/05/19 09:35 Zarxio SQ 480 mcg DAILY VAL[facility]E Administration Guaifenesin 200 mg 05/19/19 12:31 06/02/19 05:37 Robitussin PO 200 mg Q6H PRN Administration Cough Hydralazine HCl 25 mg 06/03/19 12:31 Apresoline PO DAILY PRN Hypertension Hydromorphone HCl 0.5 mg 05/29/19 18:32 06/05/19 11:51 Dilaudid IVP 0.5 mg Q4HR PRN Administration Pain Sodium Chloride 500 mls @ 20 mls/hr 05/21/19 05:00 06/05/19 06:11 Saline 0.9% IV Not Given .Q24H [facility] Aztreonam 2 gm/ Sodium 100 mls @ 100 mls/hr 05/29/19 22:23 06/05/19 06:10 Chloride IVPB 100 mls/hr Q8H [facility] Administration Protocol Ondansetron HCl 16 mg/ Sodium 58 mls @ 232 mls/hr 06/05/19 16:00 Chloride IVPB 06/06/19 16:14 Q24H [facility] Rituximab 700 mg/ Sodium 570 mls @ 0 mls/hr 06/05/19 16:00 Chloride IV 06/05/19 16:01 .Q0M ONE Protocol Titrate Bendamustine HCl 130 mg/ 55.2 mls @ 331.2 mls/hr 06/05/19 16:00 Sodium Chloride IV 06/06/19 16:09 Q24H [facility] Insulin Aspart 0 unit 05/20/19 07:30 06/05/19 12:40 Novolog SQ Not Given ACHS [facility] Protocol Magnesium Hydroxide 2,400 mg 05/26/19 11:28 05/26/19 12:01 Milk Of Magnesia PO 2,400 mg ONCE PRN Administration Constipation Methylprednisolone Sodium Succinate 125 mg 06/05/19 16:00 Solu-Medrol IVP 06/05/19 16:01 ONCE ONE Metronidazole 500 mg 06/04/19 16:00 06/05/19 08:57 Flagyl PO 500 mg Q8HR [facility]E Administration Miscellaneous Information 1 each 05/19/19 10:22 Pneumonia Protocol Utilized PO ONCE PRN Per Protocol Miscellaneous Information 1 each 05/19/19 14:58 Potassium Per Protocol MISCELLANE DAILY PRN Per Protocol Protocol Miscellaneous Information 1 each 06/04/19 16:21 Pharmacy To Dose Tpn MISCELLANE DAILY PRN INFO PIECE FOR PHARMACY DOSING Naloxone HCl 0.2 mg 05/19/19 23:24 Narcan IV Q2M PRN Opioid Reversal Ondansetron HCl 4 mg 05/29/19 08:27 06/05/19 01:50 Zofran IVP 4 mg Q4HR PRN Administration Nausea And Vomiting Pantoprazole Sodium 40 mg 05/19/19 17:30 06/05/19 08:57 Protonix PO 40 mg AC-BID [facility] Administration Polyethylene Glycol 17 gm 05/24/19 09:00 06/05/19 08:58 Miralax PO Not Given DAILY [facility] Senna/Docusate Sodium 2 each 05/26/19 21:00 06/05/19 08:58 Senokot-S PO Not Given BID [facility] Tramadol HCl 50 mg 05/19/19 12:31 06/04/19 23:08 Ultram PO 50 mg QID PRN Administration Pain Valacyclovir HCl 1,000 mg 05/19/19 21:00 06/05/19 08:57 Valtrex PO 1,000 mg BID [facility] Administration Objective - Vital Signs Vital signs: Vital Signs Temp 97.9 F 06/05/19 12:27 Pulse 89 06/05/19 12:27 Resp 14 06/05/19 12:27 BP 156/71 06/05/19 12:27 Pulse Ox 97 06/05/19 12:27 Intake & Output 06/04/19 06/05/19 06/05/19 18:59 06:59 18:59 Intake Total 310 380 0 Output Total 450 900 Balance -140 -520 0 Weight 100.5 kg Intake: Intake, IV Titration 380 Amount Aztreonam 2 gm In Sodium 100 Chloride 0.9% 100 ml @ 100 mls/hr IVPB Q8H [facility] Rx#:[id number] Potassium Chloride 20 meq 200 In Water For Injection 1 100ml.bag @ 50 mls/hr IVPB Q2H [facility] Rx#: [id number] Sodium Chloride 0.9% 500 80 ml 500 ml @ 20 mls/hr IV .Q24H [facility] Rx#:[id number] Blood Product 310 0 Platelet Irr Pheresis 2 0 Acda Unit [id number] Rc Irr As1 Unit 310 [id number] Output: Urine 450 900 Uretheral (Espinoza) 900 Other: Voiding Method Indwelling Catheter Indwelling Catheter Indwelling Catheter # Bowel Movements 3 2 - Exam -GENERAL: The patient is alert and oriented x3, not in any acute distress. Pale and weak HEENT: Pupils are round and equally reacting to light. EOMI. No scleral icterus. No conjunctival pallor. Normocephalic, atraumatic. No pharyngeal erythema. No thyromegaly. CARDIOVASCULAR: S1 and S2 present. No murmurs, rubs, or gallops. PULMONARY: Chest is clear to auscultation, no wheezing or crackles. -ABDOMEN: Soft,nondistended, normoactive bowel sounds. No palpable organomegaly. Right flank and lower quadrant tenderness with no rebound tenderness MUSCULOSKELETAL: No joint swelling or deformity. EXTREMITIES: No cyanosis, clubbing, or pedal edema. NEUROLOGICAL: Gross neurological examination did not reveal any focal deficits. SKIN: No rashes. - Labs CBC & Chem 7: 06/05/19 07:55 06/05/19 07:55 Labs: Abnormal Lab Results - Last 24 Hours (Table) 06/03/19 06/04/19 06/04/19 Range/Units 09:19 16:48 20:42 WBC (3.8-10.6) k/uL RBC (3.80-5.40) m/uL Hgb (11.4-16.0) gm/dL Hct (34.0-46.0) % Plt Count (150-450) k/uL Neutrophils # (1.3-7.7) k/uL Creatinine (0.52-1.04) mg/dL Glucose (74-99) mg/dL POC Glucose (mg/dL) 140 H 125 H (75-99) mg/dL Calcium (8.4-10.2) mg/dL Delta Bilirubin (0.0-0.2) mg/dL Total Protein (6.3-8.2) g/dL Albumin (3.5-5.0) g/dL Crossmatch See Detail 06/05/19 06/05/19 06/05/19 Range/Units 07:11 07:55 07:55 WBC 2.2 L (3.8-10.6) k/uL RBC 2.89 L (3.80-5.40) m/uL Hgb 8.3 L D (11.4-16.0) gm/dL Hct 25.0 L (34.0-46.0) % Plt Count 7 L* (150-450) k/uL Neutrophils # 0.1 L* (1.3-7.7) k/uL Creatinine 0.51 L (0.52-1.04) mg/dL Glucose 111 H (74-99) mg/dL POC Glucose (mg/dL) 114 H (75-99) mg/dL Calcium 6.3 L* (8.4-10.2) mg/dL Delta Bilirubin 0.4 H (0.0-0.2) mg/dL Total Protein 4.9 L (6.3-8.2) g/dL Albumin 2.5 L (3.5-5.0) g/dL Crossmatch 06/05/19 Range/Units 11:31 WBC (3.8-10.6) k/uL RBC (3.80-5.40) m/uL Hgb (11.4-16.0) gm/dL Hct (34.0-46.0) % Plt Count (150-450) k/uL Neutrophils # (1.3-7.7) k/uL Creatinine (0.52-1.04) mg/dL Glucose (74-99) mg/dL POC Glucose (mg/dL) 105 H (75-99) mg/dL Calcium (8.4-10.2) mg/dL Delta Bilirubin (0.0-0.2) mg/dL Total Protein (6.3-8.2) g/dL Albumin (3.5-5.0) g/dL Crossmatch Microbiology - Last 24 Hours (Table) 06/01/19 21:42 Blood Culture - Preliminary Blood No Growth after 72 hours Assessment and Plan Assessment: Pancytopenia, refractory to therapy. Mostly related to her CLL. Oncology team are planning for chemotherapy Right kidney pyelonephritis, with possible intraparenchymal renal hemorrhage felt to be strong possibility. With hematuria. urology on the case sepsis secondary to speudomonas , mostly secondary to pneumonia. sigmoid diverticulitis , worsening. Possible intramural abscess of the sigmoid colon Small local perforation of the colon, Gen. surgeon evaluated the patient and recommended to continue with conservative management chronic stable pulmonary infiltrates, associated with mild to moderate bilateral pleural effusion. Oxygen saturation is a stable Elevated lactic acid. Resolved Dehydration and generalized weakness Acute hypoxemic respiratory failure CLL With pancytopenia. LAD and on Therapy Recent history of acute lung injury, related to multiple blood/platelet transfusion, with possible pneumonia History of breast cancer in 2014 status post chemo/radiation and surgery. Currently on anastrozole Hypertension Hyperlipidemia Osteoarthritis Previous history of smoking DVT prophylaxis with SCDs Plan: This is a pleasant 73 years old female who presents with pancytopenia and review of her CLL or therapy, also she has multiple lung infiltrates. And recently right-sided pyelonephritis although it feels intraparenchymal hemorrhage in the kidney which is more possible. Patient has worsening diverticulitis with possible perforation so chemotherapy were held and neurosurgery and infectious disease R following the case closely with a recommendation for continuing cons ervative management now. Patient is on aztreonam. Critical/pulmonary team were called for bilateral pleural effusion and possible worsening of her condition. Patient is planned to get chemotherapy by oncology team, patient will be monitored closely and the distal team are aware of the patient. Continue same treatment. Continue with symptomatic treatment. Resume home medication. Monitor lytes and vitals. DVT and GI prophylaxis. Further recommendations of the clinical course of the patient DVT prophylaxis: No anticoagulation in the view of low platelets GI Prophylaxis: Pepcid PT/OT: Pending. Patient refused Prognosis is guarded
[2019-06-05] MEDS ORDERED: IOPAMIDOL-250 50ML BTL IV ONE ×2 (13:49)
[2019-06-05] MEDS ORDERED: IV FLUID CONTINUATION 900 ML IV ONE (13:50)
[2019-06-05 14:44] LABS: Ionized Calcium 3.9 mg/dL (4.5-5.3)
[2019-06-05 14:48] LABS: Phosphorus 1.7 mg/dL (2.5-4.5)
[2019-06-05] MEDS ORDERED: ACETAMINOPHEN TAB 500 MG TAB PO ONE (16:00)
[2019-06-05] MEDS ORDERED: FAMOTIDINE 20 MG/2 ML VIAL IVP ONE (16:00)
[2019-06-05] MEDS ORDERED: methylPREDNISolone SOD SUCCI 125 MG/2 ML VIAL IVP ONE (16:00)
[2019-06-05] MEDS ORDERED: MVI, ADULT NO.4 WITH VIT K 10 ML, TRACE (CONC-1ML/DOSE) 1 ML in AMINO ACID 4.25%-D10W+L... IV SCH ×3 (16:00)
[2019-06-05] MEDS ORDERED: diphenhydrAMINE 50 MG/ML 1 ML VIAL IVP ONE (16:00)
[2019-06-05] MEDS ORDERED: diphenhydrAMINE 50 MG/ML 1 ML VIAL ONE (17:38)
[2019-06-05 17:49] LABS: Glucose,Whole Blood 108 mg/dL (75-99)
[2019-06-05] MEDS: ONDANSETRON 16 MG in SODIUM CHLORIDE 0.9% 50 ML IVPB SCH (17:49)
[2019-06-05] MEDS: FAMOTIDINE 20 MG/2 ML VIAL IVP SCH (17:49)
[2019-06-05] MEDS: WITCH HAZEL 1 EACH MED..PAD TOPICAL SCH ×3 (18:01→23:01)
[2019-06-05] MEDS ORDERED: riTUXimab 700 MG in SODIUM CHLORIDE 0.9% 500 ML 500 ML IV ONE (19:00)
[2019-06-05] MEDS: ATORVASTATIN 40 MG TAB PO SCH (20:29)
--- NOTE | 2019-06-05 20:52 | PN ---
PROGRESS NOTE DATE OF SERVICE: 06/05/2019 REASON FOR FOLLOWUP: Pseudomonas bacteremia and diverticulitis. INTERVAL HISTORY: The patient is currently afebrile. The patient has been breathing comfortably. Patient denies having any chest pain or shortness of breath. Occasional cough. No nausea or vomiting. Denies any worsening abdominal pain. Still has some diarrhea, though the patient has been made n.p.o. and started on TPN. PHYSICAL EXAMINATION: Her blood pressure is 162/74 with a pulse of 98, temperature 99.3. She is 91% on room air. General description is an elderly female lying in bed in no distress. RESPIRATORY SYSTEM: Unlabored breathing. Clear to auscultation anteriorly. HEART: S1, S2. Regular rate and rhythm. ABDOMEN: Soft. No significant tenderness. No guarding or rigidity. LABS: Hemoglobin 8.3, white count 2.2, BUN of 14, creatinine 0.51. DIAGNOSTIC IMPRESSION AND PLAN: Patient with a of Pseudomonas aeruginosa bacteremia. Follow-up blood culture has been negative. With a component of diverticulitis, currently covered with Azactam and Flagyl. Will need to monitor her clinical course closely with anticipation for her starting of chemo. All her questions and concerns were answered. Continue with supportive care. MMODL / IJN: [id number] /
[2019-06-05] MEDS: BENDAMUSTINE HCL IV SCH (21:46)
[2019-06-05] MEDS: SODIUM CHLORIDE 0.9% IV SCH (21:46)
[2019-06-06 00:08] LABS: Glucose,Whole Blood 191 mg/dL (75-99)
[2019-06-06] MEDS: metroNIDAZOLE 500 MG TAB PO SCH ×4 (00:12→21:15)
[2019-06-06] MEDS: INSULIN ASPART (NovoLOG) 100 UNIT/ML VIAL SQ SCH ×4 (00:15→17:49)
[2019-06-06] MEDS: WITCH HAZEL 1 EACH MED..PAD TOPICAL SCH ×4 (03:40→20:27)
[2019-06-06] MEDS: SODIUM CHLORIDE 0.9% 500 ML 500 ML IV SCH (03:40)
[2019-06-06 05:55] LABS: Glucose,Whole Blood 231 mg/dL (75-99)
[2019-06-06] MEDS: AZTREONAM 2 GM in SODIUM CHLORIDE 0.9% 100 ML IVPB SCH ×3 (05:57→22:46)
[2019-06-06] MEDS: POLYETHYLENE GLYCOL 3350 17 GM POWD.PACK PO SCH (07:35)
[2019-06-06] MEDS: SENNOSIDES-DOCUSATE SODIUM 1 EACH TAB PO SCH ×2 (07:36→21:15)
[2019-06-06] MEDS ORDERED: FAT EMULSION 20% 250 ML IV SCH (09:00)
[2019-06-06] MEDS: FILGRASTIM-SNDZ 480 MCG/0.8 ML SYRINGE SQ SCH (09:07)
[2019-06-06] MEDS: HYDROmorphone 0.5 MG/0.5 ML SYRINGE IVP PRN ×2 (09:14→21:47)
[2019-06-06] MEDS: ALLOPURINOL 300 MG TAB PO SCH (09:15)
[2019-06-06] MEDS: amLODIPine 5 MG TAB PO SCH (09:15)
[2019-06-06] MEDS: BENZONATATE 100 MG CAP PO SCH ×3 (09:15→21:14)
[2019-06-06] MEDS: PANTOPRAZOLE 40 MG TABLET PO SCH ×2 (09:16→16:03)
[2019-06-06] MEDS: valACYclovir HCL 1,000 MG TABLET PO SCH ×2 (09:16→21:15)
[2019-06-06 09:44] LABS: HCT 23.1 % (34.0-46.0); HGB 7.8 gm/dL (11.4-16.0); MCH 29.3 pg (25.0-35.0); MCV 86.3 fL (80.0-100.0); Mean Platelet Volume 7.3; RBC 2.67 m/uL (3.80-5.40); RDW 13.4 % (11.5-15.5)
[2019-06-06 09:53] LABS: Platelet Count 13 k/uL (150-450)
[2019-06-06] MEDS ORDERED: 1: MVI, ADULT NO.4 WITH VIT K 10 ML, TRACE (CONC-1ML/DOSE) 1 ML in AMINO ACID 4.25%-D10W IV SCH ×3 (10:00)
[2019-06-06 10:05] LABS: ALT 28 U/L (9-52); AST 12 U/L (14-36); African American GFR (CKD) >90 (>60 ml/min/1.73 sqM); Albumin 2.6 g/dL (3.5-5.0); Alkaline Phosphatase 55 U/L (38-126); Anion Gap 8 mmol/L; Bilirubin, Delta 0.3 mg/dL (0.0-0.2); Bilirubin,Unconjugated 0.5 mg/dL (0.0-1.1); Blood Urea Nitrogen 19 mg/dL (7-17); Carbon Dioxide 23 mmol/L (22-30); Chloride 106 mmol/L (98-107); Glucose 217 mg/dL (74-99); Magnesium 1.7 mg/dL (1.6-2.3); Phosphorus 1.9 mg/dL (2.5-4.5); Potassium 3.4 mmol/L (3.5-5.1); Sodium 137 mmol/L (137-145); Total Bilirubin 0.8 mg/dL (0.2-1.3)
[2019-06-06 10:20] LABS: Calcium 6.4 mg/dL (8.4-10.2)
[2019-06-06] MEDS: FAT EMULSION 20% 250 ML IV SCH (11:01)
[2019-06-06 11:19] LABS: Nucleated Red Blood Cells 0 /100 WBC (0-0)
[2019-06-06 11:20] LABS: Neutrophils % (M) 8 %
[2019-06-06 11:21] LABS: Lymphocytes # (M) 1.76 k/uL (1.0-4.8); Monocytes # (M) 0.08 k/uL (0-1.0); Total Cells Counted 50
--- NOTE | 2019-06-06 11:22 | P.PN ---
<Ghazal Mcintosh Maya - Last Filed: 06/06/19 11:21> Subjective Progress Note Date: 06/06/19 CHIEF COMPLAINT: Diverticulitis HISTORY OF PRESENT ILLNESS: Patient examined at the bedside this morning. Patient states her abdominal pain is tolerable this morning. She has minimal left sided pain. Some discomfort still on right lower quadrant. Denies nausea or vomiting. Chemotherapy started yesterday. She is receiving TPN. PHYSICAL EXAM: VITAL SIGNS: Reviewed. GENERAL: Well-developed in no acute distress. HEENT: No sclera icterus. Extraocular movements grossly intact. Moist buccal mucosa. Head is atraumatic, normocephalic. ABDOMEN: Soft. Nondistended. Mild tenderness with palpation to lower right quadrant. No peritoneal signs. NEUROLOGIC: Alert and oriented. Cranial nerves II through XII grossly intact. ASSESSMENT: 1. Acute diverticulitis with microperforation, repeat CT can not exclude fistula 2. Pancytopenia 3. Diarrhea, C. diff negative 4. History of breast cancer and chronic lymphocytic leukemia PLAN: 1. Continue antibiotics. Infectious disease following 2. Continue TPN for nutrition 3. No surgical intervention recommended. Continue conservative measures. Nurse practitioner note has been reviewed by physician. Signing provider agrees with the documented findings, assessment, and plan of care. Objective - Vital Signs Vital signs: Vital Signs Temp 97.8 F 06/06/19 05:00 Pulse 84 06/06/19 05:00 Resp 16 06/06/19 05:00 BP 167/79 06/06/19 05:00 Pulse Ox 93 L 06/06/19 05:00 Intake & Output 06/05/19 06/06/19 06/06/19 18:59 06:59 18:59 Intake Total 1000 1590 Output Total 1400 1900 Balance -400 -310 Weight 98.5 kg 98.5 kg Intake: IV 400 0.9 400 Intake, IV Titration 1290 Amount Aztreonam 2 gm In Sodium 100 Chloride 0.9% 100 ml @ 100 mls/hr IVPB Q8H [facility] Rx#:[id number] Bendamustine HCl 130 mg 50 In Sodium Chloride 0.9% 50 ml @ 331.2 mls/hr IV Q24H [facility] Rx#:[id number] Mvi, Adult No.4 with Vit 400 K 10 ml Trace (Conc-1Ml/ Dose) 1 ml In Amino Acid 4.25%-D10w+Lytes*E* 1,000 ml @ 50 mls/hr IV . [id number] [facility] Rx#:[id number] Sodium Chloride 0.9% 500 240 ml 500 ml @ 20 mls/hr IV .Q24H [facility] Rx#:[id number] riTUXimab 700 mg In 500 Sodium Chloride 0.9% 500 ml 500 ml @ Titrate IV . Q0M [facility] Rx#:[id number] Oral 300 Blood Product 600 Platelet Irr Pheresis 2 300 Acda Unit [id number] Output: Urine 1400 1900 Uretheral (Espinoza) 800 1900 Other: Voiding Method Indwelling Catheter Indwelling Catheter # Bowel Movements 3 - Labs CBC & Chem 7: 06/06/19 08:38 06/06/19 08:38 Labs: Abnormal Lab Results - Last 24 Hours (Table) 06/05/19 06/05/19 06/05/19 Range/Units 11:31 14:14 17:33 WBC (3.8-10.6) k/uL RBC (3.80-5.40) m/uL Hgb (11.4-16.0) gm/dL Hct (34.0-46.0) % Plt Count (150-450) k/uL Potassium (3.5-5.1) mmol/L BUN (7-17) mg/dL Creatinine (0.52-1.04) mg/dL Glucose (74-99) mg/dL POC Glucose (mg/dL) 105 H 108 H (75-99) mg/dL Calcium (8.4-10.2) mg/dL Ionized Calcium Carlos 3.9 L (4.5-5.3) mg/dL Phosphorus 1.7 L (2.5-4.5) mg/dL Delta Bilirubin (0.0-0.2) mg/dL AST (14-36) U/L Total Protein (6.3-8.2) g/dL Albumin (3.5-5.0) g/dL 06/06/19 06/06/19 06/06/19 Range/Units 00:07 05:53 08:38 WBC (3.8-10.6) k/uL RBC (3.80-5.40) m/uL Hgb (11.4-16.0) gm/dL Hct (34.0-46.0) % Plt Count (150-450) k/uL Potassium 3.4 L (3.5-5.1) mmol/L BUN 19 H (7-17) mg/dL Creatinine 0.49 L (0.52-1.04) mg/dL Glucose 217 H (74-99) mg/dL POC Glucose (mg/dL) 191 H 231 H (75-99) mg/dL Calcium 6.4 L* (8.4-10.2) mg/dL Ionized Calcium Carlos (4.5-5.3) mg/dL Phosphorus 1.9 L (2.5-4.5) mg/dL Delta Bilirubin 0.3 H (0.0-0.2) mg/dL AST 12 L (14-36) U/L Total Protein 5.0 L (6.3-8.2) g/dL Albumin 2.6 L (3.5-5.0) g/dL 06/06/19 Range/Units 08:38 WBC 2.0 L (3.8-10.6) k/uL RBC 2.67 L (3.80-5.40) m/uL Hgb 7.8 L (11.4-16.0) gm/dL Hct 23.1 L (34.0-46.0) % Plt Count 13 L* D (150-450) k/uL Potassium (3.5-5.1) mmol/L BUN (7-17) mg/dL Creatinine (0.52-1.04) mg/dL Glucose (74-99) mg/dL POC Glucose (mg/dL) (75-99) mg/dL Calcium (8.4-10.2) mg/dL Ionized Calcium Carlos (4.5-5.3) mg/dL Phosphorus (2.5-4.5) mg/dL Delta Bilirubin (0.0-0.2) mg/dL AST (14-36) U/L Total Protein (6.3-8.2) g/dL Albumin (3.5-5.0) g/dL Microbiology - Last 24 Hours (Table) 06/01/19 21:42 Blood Culture - Preliminary Blood No Growth after 96 hours <Nestor James - Last Filed: 06/06/19 17:36> Subjective patient doing better today. Her pain is improved. She is tolerating clears. Continue clear liquids for now. Objective - Vital Signs Vital signs: Vital Signs Temp 97.8 F 06/06/19 12:24 Pulse 81 06/06/19 12:24 Resp 18 06/06/19 12:24 BP 173/80 06/06/19 12:24 Pulse Ox 92 L 06/06/19 12:24 Intake & Output 06/05/19 06/06/19 06/06/19 18:59 06:59 18:59 Intake Total 1000 1590 2540 Output Total 1400 1900 850 Balance -400 -310 1690 Weight 98.5 kg 98.5 kg 98.5 kg Intake: IV 400 0.9 400 Intake, IV Titration 1290 1940 Amount Aztreonam 2 gm In Sodium 100 100 Chloride 0.9% 100 ml @ 100 mls/hr IVPB Q8H [facility] Rx#:[id number] Bendamustine HCl 130 mg 50 In Sodium Chloride 0.9% 50 ml @ 331.2 mls/hr IV Q24H [facility] Rx#:[id number] Calcium Gluconate 1 gm In 100 Sodium Chloride 0.9% 100 ml @ 100 mls/hr IVPB ONCE [facility] Rx#:[id number] Fat Emulsion 20% 250 ml @ 250 20.833 mls/hr IV MoWeFr [facility] Rx#:[id number] Magnesium Sulfate-D5w Pmx 200 1 gm In Dextrose/Water 1 100ml.bag @ 100 mls/hr IVPB Q1H [facility] Rx#: [id number] Mvi, Adult No.4 with Vit 400 K 10 ml Trace (Conc-1Ml/ Dose) 1 ml In Amino Acid 4.25%-D10w+Lytes*E* 1,000 ml @ 50 mls/hr IV . [id number] [facility] Rx#:[id number] Mvi, Adult No.4 with Vit 800 K 10 ml Trace (Conc-1Ml/ Dose) 1 ml Potassium Chloride 20 meq Calcium Gluconate 1 gm Magnesium Sulfate gm 1 gm In Amino Acid 4.25%-D10w+Lytes*E* 1,000 ml @ 70 mls/hr IV . BY DURATION [facility] Rx#: [id number] Potassium Phosphate 10 250 mmol In Sodium Chloride 0 .9% 250 ml @ 125 mls/hr IV Q2H [facility] Rx#:[id number] Sodium Chloride 0.9% 1, 240 000 ml @ 0 mls/hr IV .STK -MED [facility] Rx#:[id number] Sodium Chloride 0.9% 500 240 ml 500 ml @ 20 mls/hr IV .Q24H [facility] Rx#:[id number] riTUXimab 700 mg In 500 Sodium Chloride 0.9% 500 ml 500 ml @ Titrate IV . Q0M [facility] Rx#:[id number] Oral 300 600 Blood Product 600 Platelet Irr Pheresis 2 300 Acda Unit [id number] Output: Urine 1400 1900 850 Uretheral (Espinoza) 800 1900 Other: Voiding Method Indwelling Catheter Indwelling Catheter Indwelling Catheter # Bowel Movements 3 - Labs CBC & Chem 7: 06/06/19 08:38 06/06/19 08:38 Labs: Abnormal Lab Results - Last 24 Hours (Table) 06/05/19 06/06/19 06/06/19 Range/Units 17:33 00:07 05:53 WBC (3.8-10.6) k/uL RBC (3.80-5.40) m/uL Hgb (11.4-16.0) gm/dL Hct (34.0-46.0) % Plt Count (150-450) k/uL Neutrophils # (Manual) (1.3-7.7) k/uL Potassium (3.5-5.1) mmol/L BUN (7-17) mg/dL Creatinine (0.52-1.04) mg/dL Glucose (74-99) mg/dL POC Glucose (mg/dL) 108 H 191 H 231 H (75-99) mg/dL Calcium (8.4-10.2) mg/dL Phosphorus (2.5-4.5) mg/dL Delta Bilirubin (0.0-0.2) mg/dL AST (14-36) U/L Total Protein (6.3-8.2) g/dL Albumin (3.5-5.0) g/dL 06/06/19 06/06/19 06/06/19 Range/Units 08:38 08:38 11:34 WBC 2.0 L (3.8-10.6) k/uL RBC 2.67 L (3.80-5.40) m/uL Hgb 7.8 L (11.4-16.0) gm/dL Hct 23.1 L (34.0-46.0) % Plt Count 13 L* D (150-450) k/uL Neutrophils # (Manual) 0.16 L* (1.3-7.7) k/uL Potassium 3.4 L (3.5-5.1) mmol/L BUN 19 H (7-17) mg/dL Creatinine 0.49 L (0.52-1.04) mg/dL Glucose 217 H (74-99) mg/dL POC Glucose (mg/dL) 235 H (75-99) mg/dL Calcium 6.4 L* (8.4-10.2) mg/dL Phosphorus 1.9 L (2.5-4.5) mg/dL Delta Bilirubin 0.3 H (0.0-0.2) mg/dL AST 12 L (14-36) U/L Total Protein 5.0 L (6.3-8.2) g/dL Albumin 2.6 L (3.5-5.0) g/dL Microbiology - Last 24 Hours (Table) 06/01/19 21:42 Blood Culture - Preliminary Blood No Growth after 96 hours
[2019-06-06 11:23] LABS: Poikilocytosis (M) Present
[2019-06-06 11:36] LABS: Glucose,Whole Blood 235 mg/dL (75-99)
[2019-06-06] MEDS ORDERED: POTASSIUM CHLORIDE ER 20 MEQ TAB.ER PO SCH (12:00)
[2019-06-06] MEDS ORDERED: CALCIUM GLUCONATE 1 GM in SODIUM CHLORIDE 0.9% 100 ML IVPB ONE (12:00)
[2019-06-06] MEDS: MAGNESIUM SULFATE-D5W PMX 1 GM in DEXTROSE/WATER 1 100ML.BAG IVPB SCH ×2 (13:31→14:43)
--- NOTE | 2019-06-06 14:00 | P.PN ---
Subjective Progress Note Date: 06/06/19 Principal diagnosis: CLL Thrombocytopenia [id number], Hemoglobin 7.8 Status Post Rituxan and bendeka Objective - Vital Signs Vital signs: Vital Signs Temp 97.8 F 06/06/19 12:24 Pulse 81 06/06/19 12:24 Resp 18 06/06/19 12:24 BP 173/80 06/06/19 12:24 Pulse Ox 92 L 06/06/19 12:24 Intake & Output 06/05/19 06/06/19 06/06/19 18:59 06:59 18:59 Intake Total 1000 1590 Output Total 1400 1900 Balance -400 -310 Weight 98.5 kg 98.5 kg Intake: IV 400 0.9 400 Intake, IV Titration 1290 Amount Aztreonam 2 gm In Sodium 100 Chloride 0.9% 100 ml @ 100 mls/hr IVPB Q8H [facility] Rx#:[id number] Bendamustine HCl 130 mg 50 In Sodium Chloride 0.9% 50 ml @ 331.2 mls/hr IV Q24H [facility] Rx#:[id number] Mvi, Adult No.4 with Vit 400 K 10 ml Trace (Conc-1Ml/ Dose) 1 ml In Amino Acid 4.25%-D10w+Lytes*E* 1,000 ml @ 50 mls/hr IV . [id number] [facility] Rx#:[id number] Sodium Chloride 0.9% 500 240 ml 500 ml @ 20 mls/hr IV .Q24H [facility] Rx#:[id number] riTUXimab 700 mg In 500 Sodium Chloride 0.9% 500 ml 500 ml @ Titrate IV . Q0M [facility] Rx#:[id number] Oral 300 Blood Product 600 Platelet Irr Pheresis 2 300 Acda Unit [id number] Output: Urine 1400 1900 Uretheral (Espinoza) 800 1900 Other: Voiding Method Indwelling Catheter Indwelling Catheter # Bowel Movements 3 - Exam General: Alert and Oriented x3, No Acute Distress Head: Normocytic, Atraumatic Neck: Supple Mouth: scabbed herpetic lesions lips Eyes: Non-sclerotic No Palpable cervical, supraclavicular, axillary adenopathy Heart: Tachy Lungs: Diminished expiratory wheeze Abdomen: Soft, Non-Distended, Non-Tended, BSx4 Extremities:lower ex folet DD, petechaie rash. Neurological: No Focal Defects: No sensory or motor deficits noted Psych: Calm and cooperative - Labs CBC & Chem 7: 06/06/19 08:38 06/06/19 08:38 Labs: Abnormal Lab Results - Last 24 Hours (Table) 06/05/19 06/05/19 06/06/19 Range/Units 14:14 17:33 00:07 WBC (3.8-10.6) k/uL RBC (3.80-5.40) m/uL Hgb (11.4-16.0) gm/dL Hct (34.0-46.0) % Plt Count (150-450) k/uL Neutrophils # (Manual) (1.3-7.7) k/uL Potassium (3.5-5.1) mmol/L BUN (7-17) mg/dL Creatinine (0.52-1.04) mg/dL Glucose (74-99) mg/dL POC Glucose (mg/dL) 108 H 191 H (75-99) mg/dL Calcium (8.4-10.2) mg/dL Ionized Calcium Carlos 3.9 L (4.5-5.3) mg/dL Phosphorus 1.7 L (2.5-4.5) mg/dL Delta Bilirubin (0.0-0.2) mg/dL AST (14-36) U/L Total Protein (6.3-8.2) g/dL Albumin (3.5-5.0) g/dL 06/06/19 06/06/19 06/06/19 Range/Units 05:53 08:38 08:38 WBC 2.0 L (3.8-10.6) k/uL RBC 2.67 L (3.80-5.40) m/uL Hgb 7.8 L (11.4-16.0) gm/dL Hct 23.1 L (34.0-46.0) % Plt Count 13 L* D (150-450) k/uL Neutrophils # (Manual) 0.16 L* (1.3-7.7) k/uL Potassium 3.4 L (3.5-5.1) mmol/L BUN 19 H (7-17) mg/dL Creatinine 0.49 L (0.52-1.04) mg/dL Glucose 217 H (74-99) mg/dL POC Glucose (mg/dL) 231 H (75-99) mg/dL Calcium 6.4 L* (8.4-10.2) mg/dL Ionized Calcium Carlos (4.5-5.3) mg/dL Phosphorus 1.9 L (2.5-4.5) mg/dL Delta Bilirubin 0.3 H (0.0-0.2) mg/dL AST 12 L (14-36) U/L Total Protein 5.0 L (6.3-8.2) g/dL Albumin 2.6 L (3.5-5.0) g/dL 06/06/19 Range/Units 11:34 WBC (3.8-10.6) k/uL RBC (3.80-5.40) m/uL Hgb (11.4-16.0) gm/dL Hct (34.0-46.0) % Plt Count (150-450) k/uL Neutrophils # (Manual) (1.3-7.7) k/uL Potassium (3.5-5.1) mmol/L BUN (7-17) mg/dL Creatinine (0.52-1.04) mg/dL Glucose (74-99) mg/dL POC Glucose (mg/dL) 235 H (75-99) mg/dL Calcium (8.4-10.2) mg/dL Ionized Calcium Carlos (4.5-5.3) mg/dL Phosphorus (2.5-4.5) mg/dL Delta Bilirubin (0.0-0.2) mg/dL AST (14-36) U/L Total Protein (6.3-8.2) g/dL Albumin (3.5-5.0) g/dL Microbiology - Last 24 Hours (Table) 06/01/19 21:42 Blood Culture - Preliminary Blood No Growth after 96 hours Assessment and Plan Plan: CLL - Status PostTreatment with single agent monoclonal antibody (Rituxan) initiated inpatient 4 of 4 weekly doses on 05/07/19, 05/14/19, 05/21/19 and 05/28/19 and then Rituxan and Bendeka on 06/04/19 - due to patient' s critical condition and instability requiring ongoing hospitalization. - Monitor CBC with differential and CMP, Uric acid, LDH, Coags Labs daily - Daily follow up Pancytopenia: - Continue Supportive Care and Supportive Transfusions Refractory thrombocytopenia: Crossmatched platelets PRN, less than 10K SIRS/Sepsis: Resolved Gram Negative Bacilli Blood Cultures Psudomonas Aeruginosa - Antibiotics - ID Following Acute Hypoxic Respiratory Failure: Improved - Pulm following Hx: Breast Cancer: - Continue on Arimidex. 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
--- NOTE | 2019-06-06 14:08 | P.PN ---
Subjective Progress Note Date: 06/06/19 Principal diagnosis: Pancytopenia SIRS/sepsis; pseudomonas aeruginosa bacteremia/pneumonia Acute hypoxic respiratory failure Hypokalemia 73-year-old female with a known history of hypertension, hyperlipidemia and CLL and history of breast cancer in 2014 status post chemoradiation and surgery who is currently being treated for CLL with imatinab and is on follow-up with Dr. Oliva as an outpatient was sent to Hospital due to thrombocytopenia. Patient was recently discharged from hospital 4 days ago for acute lung injury and possible pneumonia, related to multiple blood/platelet transfusion and was treated in the ICU, after stabilization she was discharged. Also at that time karley contreras has pancytopenia, and the discharge age her white cell count was 11.7 K, hemoglobin 8.1 and platelet 18 K. This time hematology oncology team send the patient to emergency room for pancytopenia with WBC 3.0K, hemoglobin 6.6 and platelet 2K. INR is 1.0, potassium of 3.1, creatinine 0.9, and lactic acid is elevated at 2.3. Patient was transferred to ICU for hypotensive and tachypneic and she was saturating 93-97% on 3 L oxygen, staff concerned that her more fluid can compromise her resp function so patient was transferred to the intensive care unit, as per staff pt can not go to select unit. today is more awake and, however she is tachypneic with respiratory rate 22-25, blood pressure is improved to 114/70, she saturating 93-94% and is related to her, she had fever of 103.3 yesterday. Labs from today showing slight improvement in his WBC at 1.6K, hemoglobin improved to 6.7, platelets 3K. Sodium 136, creatinine normal at 0.7, sugar control. Patient remains in the ICU with on antibiotics in the form of vancomycin and cefepime is provided to the patient. Chest x-ray showing diffuse bilateral infiltrate with left pleural effusion, pneumonia versus pulmonary edema. 05/23/2019 Patient is transferred back to general medical floor; vital signs remained stable; labs review show a platelet count of 6 with a hemoglobin of 6.7; oncology is following and recommending to transfuse with 1 unit of crossmatched platelets and 1 unit of irradiated packed RBCs; patient is going to receive Ritoxan today 05/24/2019 Patient is seen and evaluated in room at bedside; denies any specific complaints at this time Vital signs are reviewed and stable at temperature of 98.1, pulse 78, respiration 20 and blood pressure of 138/78 Lab review shows WBC of 2.4, hemoglobin of 7.2 and platelet count of 12; sodium of 138, potassium 3.2, BUN/creatinine of 22/0.4; blood glucoses ranging between 160-174 Heme/oncology is following and recommending platelet transfusion if platelet count of less than 10,000 or if symptomatic and hemoglobin less than 7.0;; no need for transfusion at this time We will supplement with oral potassium at 40 mEq by mouth 1; we will continue to monitor electrolytes Patient remains on IV antibiotics for pseudomonas aeruginosa bacteremia possible source being pneumonia and less likely intravascular source or MediPort infection since blood cultures came back negative fairly quickly; IDs following and recommending to continue antibiotic treatment for at least 2 weeks from negative blood cultures; await final tailoring of antibiotic therapy by ID 05/25/2019 Patient is seen and evaluated in the room at bedside; no specific complaints; would want to go home though Vital signs remained stable with a temperature of 99, pulse 73, respiration 22 and blood pressure 158/69; SpO2 of 98% on room air Labs are reviewed showing a decrease in white blood count from 2.4 yesterday to 1.8 this morning; hemoglobin has trended down to 6.8 from 7.2 yesterday with a platelet count of 3; chemical profile remained stable Oncology has ordered 1 unit of packed RBCs and 5 units of platelets; we will continue to monitor CBC closely Patient remains on IV antibiotics for pseudomonas bacteremia, with possible source being pneumonia rather than intravascular source or MediPort infection; repeat blood cultures have been negative so far; IDs following and recommending to continue IV antibiotic therapy for at least 2 weeks from negative blood cultures; await final recommendations from ID for antibiotic therapy 06/06/2019 Patient port in the left upper chest was not working properly and it was burning, was taken out today. Patient is still nothing by mouth. Her abdominal pain is stable. She is passing gases with no bowel movement. She has some diarrhea earlier. However C. diff was negative. Patient has been afebrile for more than 48 hours now. Hemodynamically stable. Her pancytopenia is a slightly improved WBC up to 2.2, hemoglobin 8.3 over platelets still low at 7K. Creatinine is stable at 0.5, there were enzymes not elevated. Urinalysis yesterday was showing large blood review of her intraparenchymal hemorrhage into her right kidney related to thrombocytopenia. No new culture results. CT of the brain today showing no new hemorrhage. Oncology team started chemotherapy with a close monitoring; [id number], Hemoglobin 7.8 Status Post Rituxan and bendeka No surgical intervention needed currently by the surgical team. Patient remains on aztreonam for now. With the plan for chemotherapy sewn by oncology team. Pulmonary/critical care team are also aware of the patient Objective - Vital Signs Vital signs: Vital Signs Temp 97.8 F 06/06/19 12:24 Pulse 81 06/06/19 12:24 Resp 18 06/06/19 12:24 BP 173/80 06/06/19 12:24 Pulse Ox 92 L 06/06/19 12:24 Intake & Output 06/05/19 06/06/19 06/06/19 18:59 06:59 18:59 Intake Total 1000 1590 Output Total 1400 1900 Balance -400 -310 Weight 98.5 kg 98.5 kg Intake: IV 400 0.9 400 Intake, IV Titration 1290 Amount Aztreonam 2 gm In Sodium 100 Chloride 0.9% 100 ml @ 100 mls/hr IVPB Q8H [facility] Rx#:[id number] Bendamustine HCl 130 mg 50 In Sodium Chloride 0.9% 50 ml @ 331.2 mls/hr IV Q24H [facility] Rx#:[id number] [facility], Adult No.4 with Vit 400 K 10 ml Trace (Conc-1Ml/ Dose) 1 ml In Amino Acid 4.25%-D10w+Lytes*E* 1,000 ml @ 50 mls/hr IV . [id number] [facility] Rx#:[id number] Sodium Chloride 0.9% 500 240 ml 500 ml @ 20 mls/hr IV .Q24H [facility] Rx#:[id number] riTUXimab 700 mg In 500 Sodium Chloride 0.9% 500 ml 500 ml @ Titrate IV . Q0M [facility] Rx#:[id number] Oral 300 Blood Product 600 Platelet Irr Pheresis 2 300 Acda Unit [id number] Output: Urine 1400 1900 Uretheral (Espinoza) 800 1900 Other: Voiding Method Indwelling Catheter Indwelling Catheter # Bowel Movements 3 - Exam - Constitutional General appearance: Present: average body habitus, cooperative, no acute distress - EENT Eyes: Present: anicteric sclerae, EOMI, PERRLA, normal appearance ENT: Present: hearing grossly normal, normal oropharynx Ears: bilateral: normal - Neck Neck: Present: normal ROM. Absent: lymphadenopathy, rigidity, thyromegaly Carotids: negative: bruit present Thyroid: bilateral: normal size, negative: enlarged, nodule - Respiratory Respiratory: bilateral: CTA, negative: rales, rhonchi, wheezing - Cardiovascular Rhythm: regular Heart sounds: normal: S1, S2 Abnormal Heart Sounds: Absent: systolic murmur, diastolic murmur - Gastrointestinal General gastrointestinal: Present: normal bowel sounds, soft. Absent: distended, organomegaly, tenderness - Genitourinary Genitourinary Comment(s): deferred - Integumentary Integumentary: Present: normal turgor. Absent: jaundiced, rash, ulcer - Neurologic Neurologic: Present: CNII-XII intact. Absent: focal deficits - Musculoskeletal Musculoskeletal: Present: gait normal, strength equal bilaterally - Psychiatric Psychiatric: Present: A&O x's 3, appropriate affect, intact judgment & insight - Labs CBC & Chem 7: 06/06/19 08:38 06/06/19 08:38 Labs: Abnormal Lab Results - Last 24 Hours (Table) 06/05/19 06/05/19 06/06/19 Range/Units 14:14 17:33 00:07 WBC (3.8-10.6) k/uL RBC (3.80-5.40) m/uL Hgb (11.4-16.0) gm/dL Hct (34.0-46.0) % Plt Count (150-450) k/uL Neutrophils # (Manual) (1.3-7.7) k/uL Potassium (3.5-5.1) mmol/L BUN (7-17) mg/dL Creatinine (0.52-1.04) mg/dL Glucose (74-99) mg/dL POC Glucose (mg/dL) 108 H 191 H (75-99) mg/dL Calcium (8.4-10.2) mg/dL Ionized Calcium Carlos 3.9 L (4.5-5.3) mg/dL Phosphorus 1.7 L (2.5-4.5) mg/dL Delta Bilirubin (0.0-0.2) mg/dL AST (14-36) U/L Total Protein (6.3-8.2) g/dL Albumin (3.5-5.0) g/dL 06/06/19 06/06/19 06/06/19 Range/Units 05:53 08:38 08:38 WBC 2.0 L (3.8-10.6) k/uL RBC 2.67 L (3.80-5.40) m/uL Hgb 7.8 L (11.4-16.0) gm/dL Hct 23.1 L (34.0-46.0) % Plt Count 13 L* D (150-450) k/uL Neutrophils # (Manual) 0.16 L* (1.3-7.7) k/uL Potassium 3.4 L (3.5-5.1) mmol/L BUN 19 H (7-17) mg/dL Creatinine 0.49 L (0.52-1.04) mg/dL Glucose 217 H (74-99) mg/dL POC Glucose (mg/dL) 231 H (75-99) mg/dL Calcium 6.4 L* (8.4-10.2) mg/dL Ionized Calcium Carlos (4.5-5.3) mg/dL Phosphorus 1.9 L (2.5-4.5) mg/dL Delta Bilirubin 0.3 H (0.0-0.2) mg/dL AST 12 L (14-36) U/L Total Protein 5.0 L (6.3-8.2) g/dL Albumin 2.6 L (3.5-5.0) g/dL 06/06/19 Range/Units 11:34 WBC (3.8-10.6) k/uL RBC (3.80-5.40) m/uL Hgb (11.4-16.0) gm/dL Hct (34.0-46.0) % Plt Count (150-450) k/uL Neutrophils # (Manual) (1.3-7.7) k/uL Potassium (3.5-5.1) mmol/L BUN (7-17) mg/dL Creatinine (0.52-1.04) mg/dL Glucose (74-99) mg/dL POC Glucose (mg/dL) 235 H (75-99) mg/dL Calcium (8.4-10.2) mg/dL Ionized Calcium Carlos (4.5-5.3) mg/dL Phosphorus (2.5-4.5) mg/dL Delta Bilirubin (0.0-0.2) mg/dL AST (14-36) U/L Total Protein (6.3-8.2) g/dL Albumin (3.5-5.0) g/dL Microbiology - Last 24 Hours (Table) 06/01/19 21:42 Blood Culture - Preliminary Blood No Growth after 96 hours Assessment and Plan Assessment: 1. Pancytopenia: Neutropenia/ CLL - Febrile neutropenia resolved - Persistent, felt to be related to CLL. - Crossmatched platlets re-ordered and transfusion needed today - Transfuse for platelet <10,000 or if symptomatic. - NO ASA, NSAIDs, anticoagulation, ibuprofen or motrin. - Hemoglobin under 7 today, irradiated PRBC given - Re-panculture recommended by oncology 2. SIRS/Sepsis: Gram Negative Bacilli Blood Cultures; pseudomonas aeruginosa; source possible pneumonia versus Mediport site Cultures from port and peripheral site have been obtained and are pending; patient has been switched from IV cefepime to Azactam 2 g IV every 8 hours due to development of rash; IDs following 3. Acute Hypoxic Respiratory Failure: Resolved - Pulm following; clinically stable 4. Hx: Breast Cancer: - Continue on Arimidex. 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 HSV Lips/ Mucocytisis: - Kools solution - Valtrex 7. Hypokalemia: - Supplemented today; we will continue to monitor closely 8. DVT prophylaxis; SCDs only due to marked anemia CODE STATUS; full code
[2019-06-06] MEDS ORDERED: POTASSIUM CHLORIDE ER 20 MEQ TAB.ER PO STA (14:55)
[2019-06-06] MEDS ORDERED: POTASSIUM PHOSPHATE 10 MMOL in SODIUM CHLORIDE 0.9% 250 ML IV SCH ×2 (15:00→18:00)
[2019-06-06] MEDS ORDERED: DEXAMETHASONE SOD PHOSPHATE 10 MG/ML 1 ML VIAL IV ONE (16:00)
[2019-06-06 17:36] LABS: Glucose,Whole Blood 236 mg/dL (75-99)
--- NOTE | 2019-06-06 19:00 | PN ---
PROGRESS NOTE DATE OF SERVICE: 06/06/2019 REASON FOR FOLLOWUP: Pseudomonas bacteremia and diverticulitis. INTERVAL HISTORY: The patient is currently afebrile. She did have a low-grade fever of 100 last night evening. The patient denies having any chest pain. Some shortness of breath. Occasional cough. Abdominal pain has improved. No nausea, vomiting. Diarrhea has slowed down. PHYSICAL EXAMINATION: Blood pressure 173/80 with a pulse of 81, temperature 97.8. She is 92% on room air. General description is an elderly female lying in bed in no distress. RESPIRATORY SYSTEM: Unlabored breathing with decreased breath sounds at the base. HEART: S1, S2. Regular rate and rhythm. ABDOMEN: Soft. No tenderness. No guarding or rigidity. LABS: Hemoglobin 7.8, white count 2.0, BUN of 19, creatinine 0.49. DIAGNOSTIC IMPRESSION AND PLAN: Patient with Pseudomonas aeruginosa bacteremia in this patient who did have a component of diverticulitis. The patient is currently covered with Azactam and Flagyl because of rash secondary to cefepime. Will monitor her clinical course closely. Follow-up blood culture has been negative. Continue with supportive care. MMODL / IJN: [id number] /
[2019-06-06] MEDS: ONDANSETRON 16 MG in SODIUM CHLORIDE 0.9% 50 ML IVPB SCH (20:26)
[2019-06-06] MEDS: FAMOTIDINE 20 MG/2 ML VIAL IVP SCH (20:27)
[2019-06-06] MEDS: ATORVASTATIN 40 MG TAB PO SCH (21:14)
[2019-06-06] MEDS: SODIUM CHLORIDE 0.9% IV SCH (21:43)
[2019-06-06] MEDS: BENDAMUSTINE HCL IV SCH (21:43)
[2019-06-07 00:01] LABS: Glucose,Whole Blood 205 mg/dL (75-99)
[2019-06-07] MEDS: INSULIN ASPART (NovoLOG) 100 UNIT/ML VIAL SQ SCH ×4 (00:04→17:54)
[2019-06-07] MEDS: 1: MVI, ADULT NO.4 WITH VIT K 10 ML, TRACE (CONC-1ML/DOSE) 1 ML, POTASSIUM CHLORIDE 20 M IV SCH ×18 (01:07→14:07)
[2019-06-07] MEDS: WITCH HAZEL 1 EACH MED..PAD TOPICAL SCH ×5 (01:16→21:12)
[2019-06-07 06:09] LABS: Glucose,Whole Blood 242 mg/dL (75-99)
[2019-06-07] MEDS: SODIUM CHLORIDE 0.9% 500 ML 500 ML IV SCH (06:14)
[2019-06-07 07:55] LABS: Basophils % (A) 0 %; Eosinophils % (A) 0 %; HCT 21.7 % (34.0-46.0); HGB 7.5 gm/dL (11.4-16.0); Lymphocytes # (A) 3.1 k/uL (1.0-4.8); Lymphocytes % (A) 92 %; MCH 29.7 pg (25.0-35.0); MCHC 34.6 g/dL (31.0-37.0); MCV 85.9 fL (80.0-100.0); Mean Platelet Volume 7.7; Monocytes % (A) 0 %; Neutrophils % (A) 5 %; RBC 2.53 m/uL (3.80-5.40); RDW 13.8 % (11.5-15.5); WBC 3.4 k/uL (3.8-10.6)
[2019-06-07] MEDS: SENNOSIDES-DOCUSATE SODIUM 1 EACH TAB PO SCH ×2 (08:04→21:37)
[2019-06-07] MEDS: POLYETHYLENE GLYCOL 3350 17 GM POWD.PACK PO SCH (08:04)
[2019-06-07] MEDS: AZTREONAM 2 GM in SODIUM CHLORIDE 0.9% 100 ML IVPB SCH ×3 (08:16→21:44)
[2019-06-07] MEDS: FILGRASTIM-SNDZ 480 MCG/0.8 ML SYRINGE SQ SCH (08:17)
[2019-06-07] MEDS: ALLOPURINOL 300 MG TAB PO SCH (08:17)
[2019-06-07] MEDS: metroNIDAZOLE 500 MG TAB PO SCH ×2 (08:17→16:35)
[2019-06-07] MEDS: CALCIUM CARBONATE 500 MG CHEWABLE PO PRN (08:17)
[2019-06-07] MEDS: BENZONATATE 100 MG CAP PO SCH ×3 (08:17→21:37)
[2019-06-07] MEDS: valACYclovir HCL 1,000 MG TABLET PO SCH ×2 (08:17→21:37)
[2019-06-07] MEDS: amLODIPine 5 MG TAB PO SCH (08:17)
[2019-06-07] MEDS: PANTOPRAZOLE 40 MG TABLET PO SCH ×2 (08:17→16:35)
[2019-06-07 08:33] LABS: Neutrophils # (A) 0.2 k/uL (1.3-7.7); Platelet Count 7 k/uL (150-450)
[2019-06-07 08:49] LABS: Ionized Calcium 4.1 mg/dL (4.5-5.3)
[2019-06-07 09:04] LABS: ALT 23 U/L (9-52); AST 10 U/L (14-36); African American GFR (CKD) >90 (>60 ml/min/1.73 sqM); Albumin 2.6 g/dL (3.5-5.0); Alkaline Phosphatase 48 U/L (38-126); Anion Gap 7 mmol/L; Blood Urea Nitrogen 26 mg/dL (7-17); Calcium 6.6 mg/dL (8.4-10.2); Carbon Dioxide 23 mmol/L (22-30); Chloride 108 mmol/L (98-107); Glucose 215 mg/dL (74-99); Magnesium 2.2 mg/dL (1.6-2.3); Phosphorus 2.3 mg/dL (2.5-4.5); Potassium 4.4 mmol/L (3.5-5.1); Sodium 138 mmol/L (137-145); Total Bilirubin 0.6 mg/dL (0.2-1.3); Uric Acid 1.4 mg/dL (3.7-7.4)
--- NOTE | 2019-06-07 10:41 | P.PN ---
Subjective Progress Note Date: 06/07/19 Principal diagnosis: Diverticulitis Patient says her pain is improved. Back to having multiple loose stools per day however. She is afebrile. Labs noted. T-max 100. Objective - Vital Signs Vital signs: Vital Signs Temp 97.9 F 06/07/19 05:00 Pulse 77 06/07/19 05:00 Resp 18 06/07/19 05:00 BP 146/79 06/07/19 05:00 Pulse Ox 93 L 06/06/19 21:00 Intake & Output 06/06/19 06/07/19 06/07/19 18:59 06:59 18:59 Intake Total 2780 2372 Output Total 3200 Balance -420 2372 Weight 98.5 kg 98 kg Intake: Intake, IV Titration 1939 2131 Amount Aztreonam 2 gm In Sodium 100 100 Chloride 0.9% 100 ml @ 100 mls/hr IVPB Q8H [facility] Rx#:[id number] Bendamustine HCl 130 mg 50 In Sodium Chloride 0.9% 50 ml @ 331.2 mls/hr IV Q24H [facility] Rx#:[id number] Calcium Gluconate 1 gm In 100 Sodium Chloride 0.9% 100 ml @ 100 mls/hr IVPB [facility]CE [facility] Rx#:[id number] Fat Emulsion 20% 250 ml @ 250 250 20.833 mls/hr IV MoWeFr [facility] Rx#:[id number] Magnesium Sulfate-D5w Pmx 200 1 gm In Dextrose/Water 1 100ml.bag @ 100 mls/hr IVPB Q1H [facility] Rx#: [id number] Mvi, Adult No.4 with Vit 800 1442 K 10 ml Trace (Conc-1Ml/ Dose) 1 ml Potassium Chloride 20 meq Calcium Gluconate 1 gm Magnesium Sulfate gm 1 gm In Amino Acid 4.25%-D10w+Lytes*E* 1,000 ml @ 70 mls/hr IV . [facility] Rx#: [id number] Ondansetron 16 mg In 50 Sodium Chloride 0.9% 50 ml @ 232 mls/hr IVPB Q24H [facility] Rx#:[id number] Potassium Phosphate 10 250 mmol In Sodium Chloride 0 .9% 250 ml @ 125 mls/hr IV Q2H [facility] Rx#:[id number] Sodium Chloride 0.9% 1, 240 000 ml @ 0 mls/hr IV .[facility] Rx#:[id number] Sodium Chloride 0.9% 500 240 ml 500 ml @ 20 mls/hr IV .Q24H [facility] Rx#:[id number] Oral 840 240 Output: Urine 3200 Uretheral (Espinoza) 1500 Other: Voiding Method Indwelling Catheter Indwelling Catheter # Voids 1 - Exam Abdomen: Soft, nondistended, mild lower abdominal tenderness bilaterally - Labs CBC & Chem 7: 06/07/19 07:02 06/07/19 07:02 Labs: Abnormal Lab Results - Last 24 Hours (Table) 06/06/19 06/06/19 06/06/19 Range/Units 08:38 11:34 17:28 WBC (3.8-10.6) k/uL RBC (3.80-5.40) m/uL Hgb (11.4-16.0) gm/dL Hct (34.0-46.0) % Plt Count (150-450) k/uL Neutrophils # (Manual) 0.16 L* (1.3-7.7) k/uL Chloride (98-107) mmol/L BUN (7-17) mg/dL Creatinine (0.52-1.04) mg/dL Glucose (74-99) mg/dL POC Glucose (mg/dL) 235 H 236 H (75-99) mg/dL Uric Acid (3.7-7.4) mg/dL Calcium (8.4-10.2) mg/dL Ionized Calcium Carlos (4.5-5.3) mg/dL Phosphorus (2.5-4.5) mg/dL AST (14-36) U/L Total Protein (6.3-8.2) g/dL Albumin (3.5-5.0) g/dL 06/06/19 06/07/19 06/07/19 Range/Units 23:59 06:07 07:02 WBC (3.8-10.6) k/uL RBC (3.80-5.40) m/uL Hgb (11.4-16.0) gm/dL Hct (34.0-46.0) % Plt Count (150-450) k/uL Neutrophils # (Manual) (1.3-7.7) k/uL Chloride 108 H (98-107) mmol/L BUN 26 H (7-17) mg/dL Creatinine 0.51 L (0.52-1.04) mg/dL Glucose 215 H (74-99) mg/dL POC Glucose (mg/dL) 205 H 242 H (75-99) mg/dL Uric Acid 1.4 L (3.7-7.4) mg/dL Calcium 6.6 L (8.4-10.2) mg/dL Ionized Calcium Carlos 4.1 L (4.5-5.3) mg/dL Phosphorus 2.3 L (2.5-4.5) mg/dL AST 10 L (14-36) U/L Total Protein 5.0 L (6.3-8.2) g/dL Albumin 2.6 L (3.5-5.0) g/dL 06/07/19 Range/Units 07:02 WBC 3.4 L (3.8-10.6) k/uL RBC 2.53 L (3.80-5.40) m/uL Hgb 7.5 L (11.4-16.0) gm/dL Hct 21.7 L (34.0-46.0) % Plt Count 7 L* (150-450) k/uL Neutrophils # (Manual) (1.3-7.7) k/uL Chloride (98-107) mmol/L BUN (7-17) mg/dL Creatinine (0.52-1.04) mg/dL Glucose (74-99) mg/dL POC Glucose (mg/dL) (75-99) mg/dL Uric Acid (3.7-7.4) mg/dL Calcium (8.4-10.2) mg/dL Ionized Calcium Carlos (4.5-5.3) mg/dL Phosphorus (2.5-4.5) mg/dL AST (14-36) U/L Total Protein (6.3-8.2) g/dL Albumin (3.5-5.0) g/dL Microbiology - Last 24 Hours (Table) 06/01/19 21:42 Blood Culture - Preliminary Blood No Growth after 120 hours Assessment and Plan (1) Diverticulitis Narrative/Plan: Patient seems to be tolerating the chemotherapy fairly well. Continue antibiotics. Will advance diet. Current Visit: Yes Status: Acute Code(s): K57.92 - DVTRCLI OF INTEST, PART UNSP, W/O PERF OR ABSCESS W/O BLEED SNOMED Code(s): 853362210
--- NOTE | 2019-06-07 10:51 | P.PN ---
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 She continues to experience right-sided abdominal discomfort with coughing. She has a Espinoza catheter in place, draining clear yellow urine. From a urologic standpoint, she will continue to be monitored but it is not felt that any intervention is warranted.
--- NOTE | 2019-06-07 11:19 | P.PN ---
Subjective Progress Note Date: 06/07/19 Principal diagnosis: Pancytopenia secondary to CLL, going to start chemo/monoclonal antibody therapy In follow-up today patient is noted to be more interactive, her left eye propto sis does not seen as severe today, she denies nausea, vomiting, her cough is better controlled on current medications, no chest pain, abdominal pain or cramping, she has persistent diarrhea, stress incontinence of stool, she is moderate to severely weak. She denies any pain. Objective - Vital Signs Vital signs: Vital Signs Temp 97.9 F 06/07/19 05:00 Pulse 77 06/07/19 05:00 Resp 18 06/07/19 05:00 BP 146/79 06/07/19 05:00 Pulse Ox 93 L 06/06/19 21:00 Intake & Output 06/06/19 06/07/19 06/07/19 18:59 06:59 18:59 Intake Total 2780 2372 Output Total 3200 Balance -420 2372 Weight 98.5 kg 98 kg Intake: Intake, IV Titration 1939 2131 Amount Aztreonam 2 gm In Sodium 100 100 Chloride 0.9% 100 ml @ 100 mls/hr IVPB Q8H [facility] Rx#:[id number] Bendamustine HCl 130 mg 50 In Sodium Chloride 0.9% 50 ml @ 331.2 mls/hr IV Q24H [facility] Rx#:[id number] Calcium Gluconate 1 gm In 100 Sodium Chloride 0.9% 100 ml @ 100 mls/hr IVPB ONCE ONE Rx#:[id number] Fat Emulsion 20% 250 ml @ 250 250 20.833 mls/hr IV MoWeFr [facility] Rx#:[id number] Magnesium Sulfate-D5w Pmx 200 1 gm In Dextrose/Water 1 100ml.bag @ 100 mls/hr IVPB Q1H [facility] Rx#: [id number] Mvi, Adult No.4 with Vit 800 1442 K 10 ml Trace (Conc-1Ml/ Dose) 1 ml Potassium Chloride 20 meq Calcium Gluconate 1 gm Magnesium Sulfate gm 1 gm In Amino Acid 4.25%-D10w+Lytes*E* 1,000 ml @ 70 mls/hr IV . [facility] Rx#: [id number] Ondansetron 16 mg In 50 Sodium Chloride 0.9% 50 ml @ 232 mls/hr IVPB Q24H [facility] Rx#:[id number] Potassium Phosphate 10 250 mmol In Sodium Chloride 0 .9% 250 ml @ 125 mls/hr IV Q2H [facility] Rx#:[id number] Sodium Chloride 0.9% 1, 240 000 ml @ 0 mls/hr IV .[facility] Rx#:[id number] Sodium Chloride 0.9% 500 240 ml 500 ml @ 20 mls/hr IV .Q24H [facility] Rx#:[id number] Oral 840 240 Output: Urine 3200 Uretheral (Espinoza) 1500 Other: Voiding Method Indwelling Catheter Indwelling Catheter # Voids 1 - Constitutional General appearance: Present: cooperative, no acute distress, obese - EENT Eyes: Present: anicteric sclerae, EOMI, ptosis ENT: Present: hearing grossly normal, normal oropharynx - Respiratory Respiratory: bilateral: CTA, diminished (Bases) - Cardiovascular Heart sounds: normal: S1, S2 - Peripheral edema leg Peripheral Edema: bilateral: Trace - Gastrointestinal General gastrointestinal: Present: normal bowel sounds, soft, tenderness. Absent: absent bowel sounds, decreased bowel sounds, distended, hepatomegaly, hyperactive bowel sounds, organomegaly, rigid, scaphoid, splenomegaly, umbilical hernia, ventral hernia - Integumentary Integumentary: Present: normal turgor, pale - Musculoskeletal Musculoskeletal: Present: generalized weakness - Psychiatric Psychiatric: Present: A&O x's 3, appropriate affect, intact judgment & insight - Labs CBC & Chem 7: 06/07/19 07:02 06/07/19 07:02 Labs: Abnormal Lab Results - Last 24 Hours (Table) 06/06/19 06/06/19 06/06/19 Range/Units 08:38 11:34 17:28 WBC (3.8-10.6) k/uL RBC (3.80-5.40) m/uL Hgb (11.4-16.0) gm/dL Hct (34.0-46.0) % Plt Count (150-450) k/uL Neutrophils # (Manual) 0.16 L* (1.3-7.7) k/uL Chloride (98-107) mmol/L BUN (7-17) mg/dL Creatinine (0.52-1.04) mg/dL Glucose (74-99) mg/dL POC Glucose (mg/dL) 235 H 236 H (75-99) mg/dL Uric Acid (3.7-7.4) mg/dL Calcium (8.4-10.2) mg/dL Ionized Calcium Carlos (4.5-5.3) mg/dL Phosphorus (2.5-4.5) mg/dL AST (14-36) U/L Total Protein (6.3-8.2) g/dL Albumin (3.5-5.0) g/dL 06/06/19 06/07/19 06/07/19 Range/Units 23:59 06:07 07:02 WBC (3.8-10.6) k/uL RBC (3.80-5.40) m/uL Hgb (11.4-16.0) gm/dL Hct (34.0-46.0) % Plt Count (150-450) k/uL Neutrophils # (Manual) (1.3-7.7) k/uL Chloride 108 H (98-107) mmol/L BUN 26 H (7-17) mg/dL Creatinine 0.51 L (0.52-1.04) mg/dL Glucose 215 H (74-99) mg/dL POC Glucose (mg/dL) 205 H 242 H (75-99) mg/dL Uric Acid 1.4 L (3.7-7.4) mg/dL Calcium 6.6 L (8.4-10.2) mg/dL Ionized Calcium Carlos 4.1 L (4.5-5.3) mg/dL Phosphorus 2.3 L (2.5-4.5) mg/dL AST 10 L (14-36) U/L Total Protein 5.0 L (6.3-8.2) g/dL Albumin 2.6 L (3.5-5.0) g/dL 06/07/19 Range/Units 07:02 WBC 3.4 L (3.8-10.6) k/uL RBC 2.53 L (3.80-5.40) m/uL Hgb 7.5 L (11.4-16.0) gm/dL Hct 21.7 L (34.0-46.0) % Plt Count 7 L* (150-450) k/uL Neutrophils # (Manual) (1.3-7.7) k/uL Chloride (98-107) mmol/L BUN (7-17) mg/dL Creatinine (0.52-1.04) mg/dL Glucose (74-99) mg/dL POC Glucose (mg/dL) (75-99) mg/dL Uric Acid (3.7-7.4) mg/dL Calcium (8.4-10.2) mg/dL Ionized Calcium Carlos (4.5-5.3) mg/dL Phosphorus (2.5-4.5) mg/dL AST (14-36) U/L Total Protein (6.3-8.2) g/dL Albumin (3.5-5.0) g/dL Microbiology - Last 24 Hours (Table) 06/01/19 21:42 Blood Culture - Preliminary Blood No Growth after 120 hours Assessment and Plan (1) Abdominal pain Narrative/Plan: Secondary to diarrhea and neutropenia. Infectious disease and Surgery following patient. Patient is nothing by mouth. Current Visit: Yes Status: Acute Priority: High Code(s): R10.9 - UNSPECIFIED ABDOMINAL PAIN SNOMED Code(s): 71421921 (2) Pancytopenia Narrative/Plan: Secondary to disease Transfuse for hemoglobin less than 7, Hgb stable today at 7.5. Transfuse platelets today 7,000. Transfuse for a platelet count less than 10,000 or symptomatic. No aspirin, NSAIDs, anticoagulation. Continue G-CSF for now, pending diff in AM-WBC is up to 3.4 today Current Visit: Yes Status: Acute Priority: High Code(s): D61.818 - OTHER PANCYTOPENIA SNOMED Code(s): 089028246 (3) Moderate protein-calorie malnutrition Narrative/Plan: NPO to try and reduce risk of any complications. TPN ordered Current Visit: Yes Status: Acute Priority: High Code(s): E44.0 - MODERATE PROTEIN-CALORIE MALNUTRITION SNOMED Code(s): 584029984 (4) Physical debility Narrative/Plan: Pt has been resistant to rehabilitation. Cont to encourage activity as tolerated Current Visit: Yes Status: Acute Priority: High Code(s): R53.81 - OTHER MALAISE SNOMED Code(s): 72697337 (5) Hypogammaglobulinemia Narrative/Plan: S/P 20gm IVIg. Current Visit: Yes Status: Acute Priority: High Code(s): D80.1 - NONFAMILIAL HYPOGAMMAGLOBULINEMIA SNOMED Code(s): 663063376 (6) CLL (chronic lymphocytic leukemia) Narrative/Plan: Rituximab and bendeka days 1 and 2 is complete. Ongoing monitoring of counts, h opeful for improvement. Current Visit: Yes Status: Chronic Priority: High Code(s): C91.90 - L YMPHOID LEUKEMIA, UNSPECIFIED NOT HAVING ACHIEVED REMISSION SNOMED Code(s): 46296695 (7) Bacteremia due to Pseudomonas Current Visit: Yes Status: Resolved Priority: High Code(s): R78.81 - BACTEREMIA SNOMED Code(s): 888338584638 Plan: Pt being followed by IM, Surg, Onc, ID. She is aware of her high risk situation.
[2019-06-07 11:37] LABS: Glucose,Whole Blood 238 mg/dL (75-99)
[2019-06-07 12:25] LABS: Poikilocytosis (M) Present
[2019-06-07] MEDS: HYDROmorphone 0.5 MG/0.5 ML SYRINGE IVP PRN ×2 (12:47→21:42)
[2019-06-07] MEDS: DIPHENOX-ATROP 2.5-0.025 MG 1 EACH TAB PO PRN (12:48)
--- NOTE | 2019-06-07 13:13 | P.PN ---
Subjective Progress Note Date: 06/07/19 Principal diagnosis: Pancytopenia SIRS/sepsis; pseudomonas aeruginosa bacteremia/pneumonia Acute hypoxic respiratory failure Hypokalemia 73-year-old female with a known history of hypertension, hyperlipidemia and CLL and history of breast cancer in 2014 status post chemoradiation and surgery who is currently being treated for CLL with imatinab and is on follow-up with Dr. Oliva as an outpatient was sent to Hospital due to thrombocytopenia. Patient was recently discharged from hospital 4 days ago for acute lung injury and possible pneumonia, related to multiple blood/platelet transfusion and was treated in the ICU, after stabilization she was discharged. Also at that time karley contreras has pancytopenia, and the discharge age her white cell count was 11.7 K, hemoglobin 8.1 and platelet 18 K. This time hematology oncology team send the patient to emergency room for pancytopenia with WBC 3.0K, hemoglobin 6.6 and platelet 2K. INR is 1.0, potassium of 3.1, creatinine 0.9, and lactic acid is elevated at 2.3. Patient was transferred to ICU for hypotensive and tachypneic and she was saturating 93-97% on 3 L oxygen, staff concerned that her more fluid can compromise her resp function so patient was transferred to the intensive care unit, as per staff pt can not go to [facility] unit. today is more awake and, however she is tachypneic with respiratory rate 22-25, blood pressure is improved to 114/70, she saturating 93-94% and is related to her, she had fever of 103.3 yesterday. Labs from today showing slight improvement in his WBC at 1.6K, hemoglobin improved to 6.7, platelets 3K. Sodium 136, creatinine normal at 0.7, sugar control. Patient remains in the ICU with on antibiotics in the form of vancomycin and cefepime is provided to the patient. Chest x-ray showing diffuse bilateral infiltrate with left pleural effusion, pneumonia versus pulmonary edema. 05/23/2019 Patient is transferred back to general medical floor; vital signs remained stable; labs review show a platelet count of 6 with a hemoglobin of 6.7; oncology is following and recommending to transfuse with 1 unit of crossmatched platelets and 1 unit of irradiated packed RBCs; patient is going to receive Ritoxan today 05/24/2019 Patient is seen and evaluated in room at bedside; denies any specific complaints at this time Vital signs are reviewed and stable at temperature of 98.1, pulse 78, respiration 20 and blood pressure of 138/78 Lab review shows WBC of 2.4, hemoglobin of 7.2 and platelet count of 12; sodium of 138, potassium 3.2, BUN/creatinine of 22/0.4; blood glucoses ranging between 160-174 Heme/oncology is following and recommending platelet transfusion if platelet count of less than 10,000 or if symptomatic and hemoglobin less than 7.0;; no need for transfusion at this time We will supplement with oral potassium at 40 mEq by mouth 1; we will continue to monitor electrolytes Patient remains on IV antibiotics for pseudomonas aeruginosa bacteremia possible source being pneumonia and less likely intravascular source or MediPort infection since blood cultures came back negative fairly quickly; IDs following and recommending to continue antibiotic treatment for at least 2 weeks from negative blood cultures; await final tailoring of antibiotic therapy by ID 05/25/2019 Patient is seen and evaluated in the room at bedside; no specific complaints; would want to go home though Vital signs remained stable with a temperature of 99, pulse 73, respiration 22 and blood pressure 158/69; SpO2 of 98% on room air Labs are reviewed showing a decrease in white blood count from 2.4 yesterday to 1.8 this morning; hemoglobin has trended down to 6.8 from 7.2 yesterday with a platelet count of 3; chemical profile remained stable Oncology has ordered 1 unit of packed RBCs and 5 units of platelets; we will continue to monitor CBC closely Patient remains on IV antibiotics for pseudomonas bacteremia, with possible source being pneumonia rather than intravascular source or MediPort infection; repeat blood cultures have been negative so far; IDs following and recommending to continue IV antibiotic therapy for at least 2 weeks from negative blood cultures; await final recommendations from ID for antibiotic therapy 06/06/2019 Patient port in the left upper chest was not working properly and it was burning, was taken out today. Patient is still nothing by mouth. Her abdominal pain is stable. She is passing gases with no bowel movement. She has some diarrhea earlier. However C. diff was negative. Patient has been afebrile for more than 48 hours now. Hemodynamically stable. Her pancytopenia is a slightly improved WBC up to 2.2, hemoglobin 8.3 over platelets still low at 7K. Creatinine is stable at 0.5, there were enzymes not elevated. Urinalysis yesterday was showing large blood review of her intraparenchymal hemorrhage into her right kidney related to thrombocytopenia. No new culture results. CT of the brain today showing no new hemorrhage. Oncology team started chemotherapy with a close monitoring; [id number], Hemoglobin 7.8 Status Post Rituxan and bendeka No surgical intervention needed currently by the surgical team. Patient remains on aztreonam for now. With the plan for chemotherapy sewn by oncology team. Pulmonary/critical care team are also aware of the patient 24 hour interval change 06/07/2019 Patient is seen and evaluated in the room at bedside; continues to complain of profuse diarrhea; C. diff has been checked and has been negative so far; repeat C. diff has been ordered Vital signs remained stable with a temperature of 97.2, pulse 84, respirations 17 and blood pressure 148/77 with SpO2 of 96% on room air Lab review shows a white blood count of 3.4 which is improved from yesterday and a hemoglobin of 7.5; platelet count is down to 7 - Marked thrombocytopenia; oncology is following and recommending later transfusion if platelet count is less than 10,000; platelet transfusion has been ordered for patient - Marked anemia; plan to transfuse if hemoglobin is less than 7.0 - Protein calorie malnutrition; patient remains on TPN Neutropenia; oncology is recommending to continue with GCSF for now Objective - Vital Signs Vital signs: Vital Signs Temp 97.9 F 06/07/19 05:00 Pulse 77 06/07/19 05:00 Resp 20 06/07/19 08:00 BP 146/79 06/07/19 05:00 Pulse Ox 93 L 06/06/19 21:00 Intake & Output 06/06/19 06/07/19 06/07/19 18:59 06:59 18:59 Intake Total 2780 2372 Output Total 3200 Balance -420 2372 Weight 98.5 kg 98 kg Intake: Intake, IV Titration 1939 2131 Amount Aztreonam 2 gm In Sodium 100 100 Chloride 0.9% 100 ml @ 100 mls/hr IVPB Q8H [facility] Rx#:[id number] Bendamustine HCl 130 mg 50 In Sodium Chloride 0.9% 50 ml @ 331.2 mls/hr IV Q24H [facility] Rx#:[id number] Calcium Gluconate 1 gm In 100 Sodium Chloride 0.9% 100 ml @ 100 mls/hr IVPB ON[facility] Rx#:[id number] Fat Emulsion 20% 250 ml @ 250 250 20.833 mls/hr IV MoWeFr [facility] Rx#:[id number] Magnesium Sulfate-D5w Pmx 200 1 gm In Dextrose/Water 1 100ml.bag @ 100 mls/hr IVPB Q1H [facility] Rx#: [id number] Mvi, Adult No.4 with Vit 800 1442 K 10 ml Trace (Conc-1Ml/ Dose) 1 ml Potassium Chloride 20 meq Calcium Gluconate 1 gm Magnesium Sulfate gm 1 gm In Amino Acid 4.25%-D10w+Lytes*E* 1,000 ml @ 70 mls/hr IV . BY DURATION [facility] Rx#: [id number] Ondansetron 16 mg In 50 Sodium Chloride 0.9% 50 ml @ 232 mls/hr IVPB Q24H [facility] Rx#:[id number] Potassium Phosphate 10 250 mmol In Sodium Chloride 0 .9% 250 ml @ 125 mls/hr IV Q2H [facility] Rx#:[id number] Sodium Chloride 0.9% 1, 240 000 ml @ 0 mls/hr IV .[facility] Rx#:[id number] Sodium Chloride 0.9% 500 240 ml 500 ml @ 20 mls/hr IV .Q24H [facility] Rx#:[id number] Oral 840 240 Output: Urine 3200 Uretheral (Espinoza) 1500 Other: Voiding Method Indwelling Catheter Indwelling Catheter Indwelling Catheter # Voids 1 - Exam - Constitutional General appearance: Present: average body habitus, cooperative, no acute distress - EENT Eyes: Present: anicteric sclerae, EOMI, PERRLA, normal appearance ENT: Present: hearing grossly normal, normal oropharynx Ears: bilateral: normal - Neck Neck: Present: normal ROM. Absent: lymphadenopathy, rigidity, thyromegaly Carotids: negative: bruit present Thyroid: bilateral: normal size, negative: enlarged, nodule - Respiratory Respiratory: bilateral: CTA, negative: rales, rhonchi, wheezing - Cardiovascular Rhythm: regular Heart sounds: normal: S1, S2 Abnormal Heart Sounds: Absent: systolic murmur, diastolic murmur - Gastrointestinal General gastrointestinal: Present: normal bowel sounds, soft. Absent: distended, organomegaly, tenderness - Genitourinary Genitourinary Comment(s): deferred - Integumentary Integumentary: Present: normal turgor. Absent: jaundiced, rash, ulcer - Neurologic Neurologic: Present: CNII-XII intact. Absent: focal deficits - Musculoskeletal Musculoskeletal: Present: gait normal, strength equal bilaterally - Psychiatric Psychiatric: Present: A&O x's 3, appropriate affect, intact judgment & insight - Labs CBC & Chem 7: 06/07/19 07:02 06/07/19 07:02 Labs: Abnormal Lab Results - Last 24 Hours (Table) 06/06/19 06/06/19 06/07/19 Range/Units 17:28 23:59 06:07 WBC (3.8-10.6) k/uL RBC (3.80-5.40) m/uL Hgb (11.4-16.0) gm/dL Hct (34.0-46.0) % Plt Count (150-450) k/uL Chloride (98-107) mmol/L BUN (7-17) mg/dL Creatinine (0.52-1.04) mg/dL Glucose (74-99) mg/dL POC Glucose (mg/dL) 236 H 205 H 242 H (75-99) mg/dL Uric Acid (3.7-7.4) mg/dL Calcium (8.4-10.2) mg/dL Ionized Calcium Carlos (4.5-5.3) mg/dL Phosphorus (2.5-4.5) mg/dL AST (14-36) U/L Total Protein (6.3-8.2) g/dL Albumin (3.5-5.0) g/dL 06/07/19 06/07/19 06/07/19 Range/Units 07:02 07:02 11:35 WBC 3.4 L (3.8-10.6) k/uL RBC 2.53 L (3.80-5.40) m/uL Hgb 7.5 L (11.4-16.0) gm/dL Hct 21.7 L (34.0-46.0) % Plt Count 7 L* (150-450) k/uL Chloride 108 H (98-107) mmol/L BUN 26 H (7-17) mg/dL Creatinine 0.51 L (0.52-1.04) mg/dL Glucose 215 H (74-99) mg/dL POC Glucose (mg/dL) 238 H (75-99) mg/dL Uric Acid 1.4 L (3.7-7.4) mg/dL Calcium 6.6 L (8.4-10.2) mg/dL Ionized Calcium Carlos 4.1 L (4.5-5.3) mg/dL Phosphorus 2.3 L (2.5-4.5) mg/dL AST 10 L (14-36) U/L Total Protein 5.0 L (6.3-8.2) g/dL Albumin 2.6 L (3.5-5.0) g/dL Microbiology - Last 24 Hours (Table) 06/01/19 21:42 Blood Culture - Preliminary Blood No Growth after 120 hours Assessment and Plan Assessment: 1. Pancytopenia: Neutropenia/ CLL - Febrile neutropenia resolved - Persistent, felt to be related to CLL. - Crossmatched platlets re-ordered and transfusion needed today - Transfuse for platelet <10,000 or if symptomatic. - NO ASA, NSAIDs, anticoagulation, ibuprofen or motrin. - Hemoglobin under 7 today, irradiated PRBC given - Re-panculture recommended by oncology 2. SIRS/Sepsis: Gram Negative Bacilli Blood Cultures; pseudomonas aeruginosa; source possible pneumonia versus Mediport site Cultures from port and peripheral site have been obtained and are pending; patient has been switched from IV cefepime to Azactam 2 g IV every 8 hours due to development of rash; IDs following 3. Acute Hypoxic Respiratory Failure: Resolved - Pulm following; clinically stable 4. Hx: Breast Cancer: - Continue on Arimidex. 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 HSV Lips/ Mucocytisis: - Kools solution - Valtrex 7. Hypokalemia: - Supplemented today; we will continue to monitor closely 8. DVT prophylaxis; SCDs only due to marked anemia CODE STATUS; full code Time with Patient: Greater than 30
[2019-06-07] MEDS ORDERED: 1: MVI, ADULT NO.4 WITH VIT K 10 ML, TRACE (CONC-1ML/DOSE) 1 ML, POTASSIUM CHLORIDE 20 M IV SCH ×6 (15:00)
[2019-06-07] MEDS ORDERED: CALCIUM GLUCONATE 1 GM in SODIUM CHLORIDE 0.9% 100 ML IVPB ONE (15:00)
[2019-06-07] MEDS: CHOLESTYRAMINE (WITH SUGAR) 4 GM PACKET PO SCH ×2 (15:07→17:54)
[2019-06-07 17:11] LABS: Glucose,Whole Blood 255 mg/dL (75-99)
[2019-06-07] MEDS: ATORVASTATIN 40 MG TAB PO SCH (21:37)
[2019-06-07] MEDS ORDERED: FUROSEMIDE 10 MG/ML 2 ML VIAL IV ONE (22:47)
[2019-06-07 23:53] LABS: Glucose,Whole Blood 184 mg/dL (75-99)
[2019-06-08] MEDS: WITCH HAZEL 1 EACH MED..PAD TOPICAL SCH ×5 (00:19→19:54)
[2019-06-08] MEDS: INSULIN ASPART (NovoLOG) 100 UNIT/ML VIAL SQ SCH ×4 (00:25→17:37)
[2019-06-08] MEDS: metroNIDAZOLE 500 MG TAB PO SCH ×3 (00:25→17:12)
[2019-06-08] MEDS: 1: MVI, ADULT NO.4 WITH VIT K 10 ML, TRACE (CONC-1ML/DOSE) 1 ML, POTASSIUM CHLORIDE 20 M IV SCH ×12 (04:44→19:53)
[2019-06-08 06:23] LABS: Glucose,Whole Blood 156 mg/dL (75-99)
[2019-06-08 07:31] LABS: Basophils % (A) 0 %; Eosinophils % (A) 0 %; HCT 21.9 % (34.0-46.0); HGB 7.4 gm/dL (11.4-16.0); Lymphocytes # (A) 1.9 k/uL (1.0-4.8); Lymphocytes % (A) 91 %; MCH 29.1 pg (25.0-35.0); MCHC 33.7 g/dL (31.0-37.0); MCV 86.2 fL (80.0-100.0); Mean Platelet Volume 8.4; Monocytes % (A) 1 %; Neutrophils % (A) 7 %; RBC 2.54 m/uL (3.80-5.40); RDW 13.3 % (11.5-15.5); WBC 2.1 k/uL (3.8-10.6)
[2019-06-08 07:42] LABS: Neutrophils # (A) 0.1 k/uL (1.3-7.7); Platelet Count 10 k/uL (150-450)
[2019-06-08 07:55] LABS: ALT 22 U/L (9-52); AST 11 U/L (14-36); African American GFR (CKD) >90 (>60 ml/min/1.73 sqM); Albumin 2.8 g/dL (3.5-5.0); Alkaline Phosphatase 46 U/L (38-126); Anion Gap 8 mmol/L; Blood Urea Nitrogen 26 mg/dL (7-17); Calcium 7.5 mg/dL (8.4-10.2); Carbon Dioxide 26 mmol/L (22-30); Chloride 105 mmol/L (98-107); Glucose 140 mg/dL (74-99); Phosphorus 2.7 mg/dL (2.5-4.5); Potassium 4.2 mmol/L (3.5-5.1); Sodium 139 mmol/L (137-145); Total Bilirubin 0.6 mg/dL (0.2-1.3); Total Protein 5.2 g/dL (6.3-8.2); Uric Acid 1.2 mg/dL (3.7-7.4)
[2019-06-08] MEDS: ALLOPURINOL 300 MG TAB PO SCH (08:44)
[2019-06-08] MEDS: amLODIPine 5 MG TAB PO SCH (08:44)
[2019-06-08] MEDS: BENZONATATE 100 MG CAP PO SCH ×3 (08:44→21:25)
[2019-06-08] MEDS: valACYclovir HCL 1,000 MG TABLET PO SCH ×2 (08:44→21:26)
[2019-06-08] MEDS: hydrALAZINE HCL 25 MG TAB PO PRN (08:45)
[2019-06-08] MEDS: SENNOSIDES-DOCUSATE SODIUM 1 EACH TAB PO SCH ×2 (08:45→21:26)
[2019-06-08] MEDS: POLYETHYLENE GLYCOL 3350 17 GM POWD.PACK PO SCH (08:45)
[2019-06-08] MEDS: PANTOPRAZOLE 40 MG TABLET PO SCH ×2 (08:45→17:12)
[2019-06-08] MEDS: FILGRASTIM-SNDZ 480 MCG/0.8 ML SYRINGE SQ SCH (08:47)
[2019-06-08] MEDS: AZTREONAM 2 GM in SODIUM CHLORIDE 0.9% 100 ML IVPB SCH ×3 (09:07→21:26)
[2019-06-08] MEDS: SODIUM CHLORIDE 0.9% 500 ML 500 ML IV SCH (09:07)
[2019-06-08] MEDS ORDERED: FUROSEMIDE 10 MG/ML 2 ML VIAL IV ONE (09:18)
[2019-06-08 09:34] LABS: Poikilocytosis (M) Present
[2019-06-08] MEDS: CHOLESTYRAMINE (WITH SUGAR) 4 GM PACKET PO SCH ×3 (10:06→17:12)
--- NOTE | 2019-06-08 10:21 | P.PN ---
Subjective Progress Note Date: 06/08/19 Principal diagnosis: Diverticulitis Patient states she feels somewhat better today. Pain is improved. Less liquid stools. She is afebrile. Labs are about the same. Objective - Vital Signs Vital signs: Vital Signs Temp 97.1 F L 06/08/19 05:00 Pulse 80 06/08/19 05:00 Resp 20 06/08/19 05:00 BP 165/77 06/08/19 05:00 Pulse Ox 92 L 06/08/19 05:00 Intake & Output 06/07/19 06/08/19 06/08/19 18:59 06:59 18:59 Intake Total 2260 1360 Output Total 1100 2900 Balance 1160 -1540 Weight 96 kg Intake: Intake, IV Titration 1280 770 Amount Aztreonam 2 gm In Sodium 200 Chloride 0.9% 100 ml @ 100 mls/hr IVPB Q8H [facility] Rx#:[id number] Mvi, Adult No.4 with Vit 770 K 10 ml Trace (Conc-1Ml/ Dose) 1 ml Potassium Chloride 20 meq Calcium Gluconate 1 gm Magnesium Sulfate gm 1 gm In Amino Acid 4.25%-D10w+Lytes*E* 1,000 ml @ 70 mls/hr IV . BY DURATION [facility] Rx#: [id number] Potassium Chloride 20 meq 840 Calcium Gluconate 1 gm Magnesium Sulfate gm 1 gm In Amino Acid 4.25%-D10w +Lytes*E* 1,000 ml @ 70 mls/hr IV .BY DURATION [facility] Rx#:[id number] Sodium Chloride 0.9% 1, 240 000 ml @ 0 mls/hr IV .STK -[facility] Rx#:[id number] Oral 980 Blood Product 0 590 Platelet Irr Pheresis 2 0 285 Acda Unit [id number] Platelet Irr Pheresis 305 Acda1 Unit [id number] Output: Urine 1100 2900 Uretheral (Espinoza) 2900 Other: Voiding Method Indwelling Catheter Indwelling Catheter # Voids 1 # Bowel Movements 3 - Exam Abdomen: Soft, nondistended, lower abdominal tenderness - Labs CBC & Chem 7: 06/08/19 06:43 06/08/19 06:38 Labs: Abnormal Lab Results - Last 24 Hours (Table) 06/07/19 06/07/19 06/07/19 Range/Units 07:02 11:35 17:10 WBC 3.4 L (3.8-10.6) k/uL RBC 2.53 L (3.80-5.40) m/uL Hgb 7.5 L (11.4-16.0) gm/dL Hct 21.7 L (34.0-46.0) % Plt Count 7 L* (150-450) k/uL Neutrophils # 0.2 L* (1.3-7.7) k/uL BUN (7-17) mg/dL Creatinine (0.52-1.04) mg/dL Glucose (74-99) mg/dL POC Glucose (mg/dL) 238 H 255 H (75-99) mg/dL Uric Acid (3.7-7.4) mg/dL Calcium (8.4-10.2) mg/dL AST (14-36) U/L Total Protein (6.3-8.2) g/dL Albumin (3.5-5.0) g/dL 06/07/19 06/08/19 06/08/19 Range/Units 23:51 06:21 06:38 WBC (3.8-10.6) k/uL RBC (3.80-5.40) m/uL Hgb (11.4-16.0) gm/dL Hct (34.0-46.0) % Plt Count (150-450) k/uL Neutrophils # (1.3-7.7) k/uL BUN 26 H (7-17) mg/dL Creatinine 0.50 L (0.52-1.04) mg/dL Glucose 140 H (74-99) mg/dL POC Glucose (mg/dL) 184 H 156 H (75-99) mg/dL Uric Acid 1.2 L (3.7-7.4) mg/dL Calcium 7.5 L (8.4-10.2) mg/dL AST 11 L (14-36) U/L Total Protein 5.2 L (6.3-8.2) g/dL Albumin 2.8 L (3.5-5.0) g/dL 06/08/19 Range/Units 06:43 WBC 2.1 L (3.8-10.6) k/uL RBC 2.54 L (3.80-5.40) m/uL Hgb 7.4 L (11.4-16.0) gm/dL Hct 21.9 L (34.0-46.0) % Plt Count 10 L* (150-450) k/uL Neutrophils # 0.1 L* (1.3-7.7) k/uL BUN (7-17) mg/dL Creatinine (0.52-1.04) mg/dL Glucose (74-99) mg/dL POC Glucose (mg/dL) (75-99) mg/dL Uric Acid (3.7-7.4) mg/dL Calcium (8.4-10.2) mg/dL AST (14-36) U/L Total Protein (6.3-8.2) g/dL Albumin (3.5-5.0) g/dL Microbiology - Last 24 Hours (Table) 06/01/19 21:42 Blood Culture - Final Blood No Growth after 144 hours Assessment and Plan (1) Diverticulitis Narrative/Plan: Continue antibiotics. Continue treatment for CLL. Keep on full liquids for now. Will follow. Current Visit: Yes Status: Acute Code(s): K57.92 - DVTRCLI OF INTEST, PART UNSP, W/O PERF OR ABSCESS W/O BLEED SNOMED Code(s): 343704230
--- NOTE | 2019-06-08 11:09 | P.PN ---
Subjective Progress Note Date: 06/08/19 Principal diagnosis: Pancytopenia secondary to CLL, completed first cycle of chemo/monoclonal antibody therapy In follow-up today patient is sitting further up in bed, lights are on, continues to be more interactive, less drowsy, she has started a soft diet and is tolerating without nausea, no fevers, chills, her cough persists, unchanged, no abdominal pain, cramping, C. diff was negative, she is started antidiarrheal regimen with no BM since yesterday, no stress incontinence of stool, denies bleeding or pain. Objective - Vital Signs Vital signs: Vital Signs Temp 97.1 F L 06/08/19 05:00 Pulse 80 06/08/19 05:00 Resp 20 06/08/19 05:00 BP 165/77 06/08/19 05:00 Pulse Ox 92 L 06/08/19 05:00 Intake & Output 06/07/19 06/08/19 06/08/19 18:59 06:59 18:59 Intake Total 2260 1360 Output Total 1100 2900 Balance 1160 -1540 Weight 96 kg Intake: Intake, IV Titration 1280 770 Amount Aztreonam 2 gm In Sodium 200 Chloride 0.9% 100 ml @ 100 mls/hr IVPB Q8H [facility] Rx#:[id number] Mvi, Adult No.4 with Vit 770 K 10 ml Trace (Conc-1Ml/ Dose) 1 ml Potassium Chloride 20 meq Calcium Gluconate 1 gm Magnesium Sulfate gm 1 gm In Amino Acid 4.25%-D10w+Lytes*E* 1,000 ml @ 70 mls/hr IV . BY DURATION [facility] Rx#: [id number] Potassium Chloride 20 meq 840 Calcium Gluconate 1 gm Magnesium Sulfate gm 1 gm In Amino Acid 4.25%-D10w +Lytes*E* 1,000 ml @ 70 mls/hr IV .BY DURATION [facility] Rx#:[id number] Sodium Chloride 0.9% 1, 240 000 ml @ 0 mls/hr IV .ST[facility] Rx#:[id number] Oral 980 Blood Product 0 590 Platelet Irr Pheresis 2 0 285 Acda Unit [id number] Platelet Irr Pheresis 305 Acda1 Unit [id number] Output: Urine 1100 2900 Uretheral (Espinoza) 2900 Other: Voiding Method Indwelling Catheter Indwelling Catheter # Voids 1 # Bowel Movements 3 - Constitutional General appearance: Present: cooperative, no acute distress, obese - EENT Eyes: Present: anicteric sclerae, EOMI, ptosis ENT: Present: hearing grossly normal, normal oropharynx - Respiratory Respiratory: bilateral: CTA, diminished - Cardiovascular Rhythm: regular Heart sounds: normal: S1, S2 Abnormal Heart Sounds: Present: systolic murmur - Peripheral edema leg Peripheral Edema: bilateral: Trace - Gastrointestinal General gastrointestinal: Present: normal bowel sounds, soft. Absent: absent bowel sounds, decreased bowel sounds, distended, hepatomegaly, hyperactive bowel sounds, organomegaly, rigid, scaphoid, splenomegaly, tenderness, umbilical hernia, ventral hernia - Integumentary Integumentary: Present: pale - Musculoskeletal Musculoskeletal: Present: generalized weakness - Psychiatric Psychiatric: Present: A&O x's 3, appropriate affect, intact judgment & insight - Labs CBC & Chem 7: 06/08/19 06:43 06/08/19 06:38 Labs: Abnormal Lab Results - Last 24 Hours (Table) 06/07/19 06/07/19 06/07/19 Range/Units 07:02 11:35 17:10 WBC 3.4 L (3.8-10.6) k/uL RBC 2.53 L (3.80-5.40) m/uL Hgb 7.5 L (11.4-16.0) gm/dL Hct 21.7 L (34.0-46.0) % Plt Count 7 L* (150-450) k/uL Neutrophils # 0.2 L* (1.3-7.7) k/uL BUN (7-17) mg/dL Creatinine (0.52-1.04) mg/dL Glucose (74-99) mg/dL POC Glucose (mg/dL) 238 H 255 H (75-99) mg/dL Uric Acid (3.7-7.4) mg/dL Calcium (8.4-10.2) mg/dL AST (14-36) U/L Total Protein (6.3-8.2) g/dL Albumin (3.5-5.0) g/dL 06/07/19 06/08/19 06/08/19 Range/Units 23:51 06:21 06:38 WBC (3.8-10.6) k/uL RBC (3.80-5.40) m/uL Hgb (11.4-16.0) gm/dL Hct (34.0-46.0) % Plt Count (150-450) k/uL Neutrophils # (1.3-7.7) k/uL BUN 26 H (7-17) mg/dL Creatinine 0.50 L (0.52-1.04) mg/dL Glucose 140 H (74-99) mg/dL POC Glucose (mg/dL) 184 H 156 H (75-99) mg/dL Uric Acid 1.2 L (3.7-7.4) mg/dL Calcium 7.5 L (8.4-10.2) mg/dL AST 11 L (14-36) U/L Total Protein 5.2 L (6.3-8.2) g/dL Albumin 2.8 L (3.5-5.0) g/dL 06/08/19 Range/Units 06:43 WBC 2.1 L (3.8-10.6) k/uL RBC 2.54 L (3.80-5.40) m/uL Hgb 7.4 L (11.4-16.0) gm/dL Hct 21.9 L (34.0-46.0) % Plt Count 10 L* (150-450) k/uL Neutrophils # 0.1 L* (1.3-7.7) k/uL BUN (7-17) mg/dL Creatinine (0.52-1.04) mg/dL Glucose (74-99) mg/dL POC Glucose (mg/dL) (75-99) mg/dL Uric Acid (3.7-7.4) mg/dL Calcium (8.4-10.2) mg/dL AST (14-36) U/L Total Protein (6.3-8.2) g/dL Albumin (3.5-5.0) g/dL Microbiology - Last 24 Hours (Table) 06/01/19 21:42 Blood Culture - Final Blood No Growth after 144 hours Assessment and Plan (1) Abdominal pain Narrative/Plan: Diarrhea-none since yesterday. White blood cell count slow to improve, but improving. Infectious disease and Surgery following patient. Patient has started soft diet. Current Visit: Yes Status: Acute Priority: High Code(s): R10.9 - UNSPECIFIED ABDOMINAL PAIN SNOMED Code(s): 06607273 (2) Pancytopenia Narrative/Plan: Secondary to disease Transfuse for hemoglobin less than 7, Hgb stable today at 7.4. Transfuse for a platelet count less than 10,000 or symptomatic. No aspirin, NSAIDs, anticoagulation. Continue G-CSF for now, pending diff in AM-WBC is up to 2.1 today, no differential yet Current Visit: Yes Status: Acute Priority: High Code(s): D61.818 - OTHER PANCYTOPENIA SNOMED Code(s): 830678331 (3) Moderate protein-calorie malnutrition Narrative/Plan: Continue TPN for now. Patient is started a soft diet. Current Visit: Yes Status: Acute Priority: High Code(s): E44.0 - MODERATE PROTEIN-CALORIE MALNUTRITION SNOMED Code(s): 894406643 (4) Physical debility Narrative/Plan: Pt agreeable to get up in the chair today. Cont to encourage activity as spencer ated Current Visit: Yes Status: Acute Priority: High Code(s): R53.81 - OTHER MALAISE SNOMED Code(s): 96729239 (5) Hypogammaglobulinemia Current Visit: Yes Status: Acute Priority: High Code(s): D80.1 - NONFAMILIAL HYPOGAMMAGLOBULINEMIA SNOMED Code(s): 846260794 (6) CLL (chronic lymphocytic leukemia) Narrative/Plan: Rituximab and bendeka days 1 and 2 is complete. Ongoing monitoring of counts Current Visit: Yes Status: Chronic Priority: High Code(s): C91.90 - LYMP HOID LEUKEMIA, UNSPECIFIED NOT HAVING ACHIEVED REMISSION SNOMED Code(s): 81961035 (7) Bacteremia due to Pseudomonas Current Visit: Yes Status: Resolved Priority: High Code(s): R78.81 - BACTEREMIA SNOMED Code(s): 099039280907 Plan: Pt being followed by IM, Surg, Onc, ID. She is aware of her high risk situation.
[2019-06-08 11:46] LABS: Glucose,Whole Blood 159 mg/dL (75-99)
[2019-06-08] MEDS: traMADol 50 MG TAB PO PRN (12:58)
[2019-06-08] MEDS: HYDROmorphone 0.5 MG/0.5 ML SYRINGE IVP PRN ×2 (14:09→19:52)
[2019-06-08] MEDS: guaiFENesin SYRUP 100MG/5ML 200 MG/10 ML CUP PO PRN (14:10)
--- NOTE | 2019-06-08 16:19 | P.PN ---
Subjective Progress Note Date: 06/08/19 Principal diagnosis: Pancytopenia SIRS/sepsis; pseudomonas aeruginosa bacteremia/pneumonia Acute hypoxic respiratory failure Hypokalemia 73-year-old female with a known history of hypertension, hyperlipidemia and CLL and history of breast cancer in 2014 status post chemoradiation and surgery who is currently being treated for CLL with imatinab and is on follow-up with Dr. Oliva as an outpatient was sent to Hospital due to thrombocytopenia. Patient was recently discharged from hospital 4 days ago for acute lung injury and possible pneumonia, related to multiple blood/platelet transfusion and was treated in the ICU, after stabilization she was discharged. Also at that time karley contreras has pancytopenia, and the discharge age her white cell count was 11.7 K, hemoglobin 8.1 and platelet 18 K. This time hematology oncology team send the patient to emergency room for pancytopenia with WBC 3.0K, hemoglobin 6.6 and platelet 2K. INR is 1.0, potassium of 3.1, creatinine 0.9, and lactic acid is elevated at 2.3. Patient was transferred to ICU for hypotensive and tachypneic and she was saturating 93-97% on 3 L oxygen, staff concerned that her more fluid can compromise her resp function so patient was transferred to the intensive care unit, as per staff pt can not go to [facility] unit. today is more awake and, however she is tachypneic with respiratory rate 22-25, blood pressure is improved to 114/70, she saturating 93-94% and is related to her, she had fever of 103.3 yesterday. Labs from today showing slight improvement in his WBC at 1.6K, hemoglobin improved to 6.7, platelets 3K. Sodium 136, creatinine normal at 0.7, sugar control. Patient remains in the ICU with on antibiotics in the form of vancomycin and cefepime is provided to the patient. Chest x-ray showing diffuse bilateral infiltrate with left pleural effusion, pneumonia versus pulmonary edema. 05/23/2019 Patient is transferred back to general medical floor; vital signs remained stable; labs review show a platelet count of 6 with a hemoglobin of 6.7; oncology is following and recommending to transfuse with 1 unit of crossmatched platelets and 1 unit of irradiated packed RBCs; patient is going to receive Ritoxan today 05/24/2019 Patient is seen and evaluated in room at bedside; denies any specific complaints at this time Vital signs are reviewed and stable at temperature of 98.1, pulse 78, respiration 20 and blood pressure of 138/78 Lab review shows WBC of 2.4, hemoglobin of 7.2 and platelet count of 12; sodium of 138, potassium 3.2, BUN/creatinine of 22/0.4; blood glucoses ranging between 160-174 Heme/oncology is following and recommending platelet transfusion if platelet count of less than 10,000 or if symptomatic and hemoglobin less than 7.0;; no need for transfusion at this time We will supplement with oral potassium at 40 mEq by mouth 1; we will continue to monitor electrolytes Patient remains on IV antibiotics for pseudomonas aeruginosa bacteremia possible source being pneumonia and less likely intravascular source or MediPort infection since blood cultures came back negative fairly quickly; IDs following and recommending to continue antibiotic treatment for at least 2 weeks from negative blood cultures; await final tailoring of antibiotic therapy by ID 05/25/2019 Patient is seen and evaluated in the room at bedside; no specific complaints; would want to go home though Vital signs remained stable with a temperature of 99, pulse 73, respiration 22 and blood pressure 158/69; SpO2 of 98% on room air Labs are reviewed showing a decrease in white blood count from 2.4 yesterday to 1.8 this morning; hemoglobin has trended down to 6.8 from 7.2 yesterday with a platelet count of 3; chemical profile remained stable Oncology has ordered 1 unit of packed RBCs and 5 units of platelets; we will continue to monitor CBC closely Patient remains on IV antibiotics for pseudomonas bacteremia, with possible source being pneumonia rather than intravascular source or MediPort infection; repeat blood cultures have been negative so far; IDs following and recommending to continue IV antibiotic therapy for at least 2 weeks from negative blood cultures; await final recommendations from ID for antibiotic therapy 06/06/2019 Patient port in the left upper chest was not working properly and it was burning, was taken out today. Patient is still nothing by mouth. Her abdominal pain is stable. She is passing gases with no bowel movement. She has some diarrhea earlier. However C. diff was negative. Patient has been afebrile for more than 48 hours now. Hemodynamically stable. Her pancytopenia is a slightly improved WBC up to 2.2, hemoglobin 8.3 over platelets still low at 7K. Creatinine is stable at 0.5, there were enzymes not elevated. Urinalysis yesterday was showing large blood review of her intraparenchymal hemorrhage into her right kidney related to thrombocytopenia. No new culture results. CT of the brain today showing no new hemorrhage. Oncology team started chemotherapy with a close monitoring; [id number], Hemoglobin 7.8 Status Post Rituxan and bendeka No surgical intervention needed currently by the surgical team. Patient remains on aztreonam for now. With the plan for chemotherapy sewn by oncology team. Pulmonary/critical care team are also aware of the patient 24 hour interval change 06/07/2019 Patient is seen and evaluated in the room at bedside; continues to complain of profuse diarrhea; C. diff has been checked and has been negative so far; repeat C. diff has been ordered Vital signs remained stable with a temperature of 97.2, pulse 84, respirations 17 and blood pressure 148/77 with SpO2 of 96% on room air Lab review shows a white blood count of 3.4 which is improved from yesterday and a hemoglobin of 7.5; platelet count is down to 7 - Marked thrombocytopenia; oncology is following and recommending later transfusion if platelet count is less than 10,000; platelet transfusion has been ordered for patient - Marked anemia; plan to transfuse if hemoglobin is less than 7.0 - Protein calorie malnutrition; patient remains on TPN Neutropenia; oncology is recommending to continue with GCSF for now 06/08/2019 24 hour interval change Patient is seen and evaluated sitting up in bed and voices no specific complaints; patient relates that she was able to tolerate soft diet without any nausea vomiting Vital signs remained stable with a temperature of 97.1, pulse 80, respiration 20 and blood pressure of 166/77 with SpO2 of 92% on room air Labs are stable with a white blood count of 2.1, hemoglobin 7.4 and platelet count of 10; chemical profile shows a slightly elevated BUN/creatinine at 26/0.05; C. diff toxin is repeated and negative Patient is started on antidiarrheal regimen and had no loose bowel movement since yesterday Rituximab and bendeka days 1 and 2 is complete. Oncology is following and recommending to continue monitor CBC and transfuse if hemoglobin is less than 7 or platelet count is less than 10,000 Objective - Vital Signs Vital signs: Vital Signs Temp 98.1 F 06/08/19 12:10 Pulse 78 06/08/19 12:10 Resp 17 06/08/19 12:10 BP 172/70 06/08/19 12:10 Pulse Ox 95 06/08/19 12:10 Intake & Output 06/07/19 06/08/19 06/08/19 18:59 06:59 18:59 Intake Total 2260 1360 1280 Output Total 1100 2900 2200 Balance 1160 -1540 -920 Weight 96 kg Intake: Intake, IV Titration 9857 446 9789 Amount Aztreonam 2 gm In Sodium 200 200 Chloride 0.9% 100 ml @ 100 mls/hr IVPB Q[facility]H [facility] Rx#:[id number] Mvi, Adult No.4 with Vit 770 K 10 ml Trace (Conc-1Ml/ Dose) 1 ml Potassium Chloride 20 meq Calcium Gluconate 1 gm Magnesium Sulfate gm 1 gm In Amino Acid 4.25%-D10w+Lytes*E* 1,000 ml @ 70 mls/hr IV . BY DURATION [facility] Rx#: [id number] Potassium Chloride 20 meq 840 Calcium Gluconate 1 gm Magnesium Sulfate gm 1 gm In Amino Acid 4.25%-D10w +Lytes*E* 1,000 ml @ 70 mls/hr IV .BY DURATION [facility] Rx#:[id number] Potassium Chloride 20 meq 840 Calcium Gluconate 1 gm Magnesium Sulfate gm 1 gm In Amino Acid 4.25%-D10w +Lytes*E* 1,000 ml @ 70 mls/hr IV .BY DURATION [facility] Rx#:[id number] Sodium Chloride 0.9% 1, 240 000 ml @ 0 mls/hr IV .[facility] Rx#:[id number] Sodium Chloride 0.9% 500 240 ml 500 ml @ 20 mls/hr IV .Q24H [facility] Rx#:[id number] Oral 980 Blood Product 0 590 Platelet Irr Pheresis 2 0 285 Acda Unit [id number] Platelet Irr Pheresis 305 Acda1 Unit [id number] Output: Urine 1100 2900 2200 Uretheral (Espinoza) 2900 Other: Voiding Method Indwelling Catheter Indwelling Catheter Indwelling Catheter # Voids 1 # Bowel Movements 3 - Exam - Constitutional General appearance: Present: average body habitus, cooperative, no acute distress - EENT Eyes: Present: anicteric sclerae, EOMI, PERRLA, normal appearance ENT: Present: hearing grossly normal, normal oropharynx Ears: bilateral: normal - Neck Neck: Present: normal ROM. Absent: lymphadenopathy, rigidity, thyromegaly Carotids: negative: bruit present Thyroid: bilateral: normal size, negative: enlarged, nodule - Respiratory Respiratory: bilateral: CTA, negative: rales, rhonchi, wheezing - Cardiovascular Rhythm: regular Heart sounds: normal: S1, S2 Abnormal Heart Sounds: Absent: systolic murmur, diastolic murmur - Gastrointestinal General gastrointestinal: Present: normal bowel sounds, soft. Absent: distended, organomegaly, tenderness - Genitourinary Genitourinary Comment(s): deferred - Integumentary Integumentary: Present: normal turgor. Absent: jaundiced, rash, ulcer - Neurologic Neurologic: Present: CNII-XII intact. Absent: focal deficits - Musculoskeletal Musculoskeletal: Present: gait normal, strength equal bilaterally - Psychiatric Psychiatric: Present: A&O x's 3, appropriate affect, intact judgment & insight - Labs CBC & Chem 7: 06/08/19 06:43 06/08/19 06:38 Labs: Abnormal Lab Results - Last 24 Hours (Table) 06/07/19 06/07/19 06/08/19 Range/Units 17:10 23:51 06:21 WBC (3.8-10.6) k/uL RBC (3.80-5.40) m/uL Hgb (11.4-16.0) gm/dL Hct (34.0-46.0) % Plt Count (150-450) k/uL Neutrophils # (1.3-7.7) k/uL BUN (7-17) mg/dL Creatinine (0.52-1.04) mg/dL Glucose (74-99) mg/dL POC Glucose (mg/dL) 255 H 184 H 156 H (75-99) mg/dL Uric Acid (3.7-7.4) mg/dL Calcium (8.4-10.2) mg/dL AST (14-36) U/L Total Protein (6.3-8.2) g/dL Albumin (3.5-5.0) g/dL 06/08/19 06/08/19 06/08/19 Range/Units 06:38 06:43 11:44 WBC 2.1 L (3.8-10.6) k/uL RBC 2.54 L (3.80-5.40) m/uL Hgb 7.4 L (11.4-16.0) gm/dL Hct 21.9 L (34.0-46.0) % Plt Count 10 L* (150-450) k/uL Neutrophils # 0.1 L* (1.3-7.7) k/uL BUN 26 H (7-17) mg/dL Creatinine 0.50 L (0.52-1.04) mg/dL Glucose 140 H (74-99) mg/dL POC Glucose (mg/dL) 159 H (75-99) mg/dL Uric Acid 1.2 L (3.7-7.4) mg/dL Calcium 7.5 L (8.4-10.2) mg/dL AST 11 L (14-36) U/L Total Protein 5.2 L (6.3-8.2) g/dL Albumin 2.8 L (3.5-5.0) g/dL Microbiology - Last 24 Hours (Table) 06/01/19 21:42 Blood Culture - Final Blood No Growth after 144 hours Assessment and Plan Assessment: 1. Pancytopenia: Neutropenia/ CLL - Febrile neutropenia resolved - Persistent, felt to be related to CLL. - Crossmatched platlets re-ordered and transfusion needed today - Transfuse for platelet <10,000 or if symptomatic. - NO ASA, NSAIDs, anticoagulation, ibuprofen or motrin. - Hemoglobin under 7 today, irradiated PRBC given - Re-panculture recommended by oncology 2. SIRS/Sepsis: Gram Negative Bacilli Blood Cultures; pseudomonas aeruginosa; source possible pneumonia versus Mediport site Cultures from port and peripheral site have been obtained and are pending; patient has been switched from IV cefepime to Azactam 2 g IV every 8 hours due t o development of rash; IDs following 3. Acute Hypoxic Respiratory Failure: Resolved - Pulm following; clinically stable 4. Hx: Breast Cancer: - Continue on Arimidex. 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 HSV Lips/ Mucocytisis: - Kools solution - Valtrex 7. Hypokalemia: - Supplemented today; we will continue to monitor closely 8. DVT prophylaxis; SCDs only due to marked anemia CODE STATUS; full code Time with Patient: Greater than 30
[2019-06-08 17:18] LABS: Glucose,Whole Blood 158 mg/dL (75-99)
[2019-06-08] MEDS: guaiFENesin 600 MG TABLET.ER PO SCH (21:25)
[2019-06-08] MEDS: ATORVASTATIN 40 MG TAB PO SCH (21:26)
[2019-06-09] MEDS: WITCH HAZEL 1 EACH MED..PAD TOPICAL SCH ×5 (00:19→20:34)
[2019-06-09] MEDS: HYDROmorphone 0.5 MG/0.5 ML SYRINGE IVP PRN ×2 (00:30→20:33)
[2019-06-09] MEDS: INSULIN ASPART (NovoLOG) 100 UNIT/ML VIAL SQ SCH ×4 (00:30→17:34)
[2019-06-09] MEDS: metroNIDAZOLE 500 MG TAB PO SCH ×4 (00:30→23:57)
--- NOTE | 2019-06-09 01:33 | PN ---
PROGRESS NOTE DATE OF SERVICE: 06/08/2019. REASON FOR FOLLOWUP: Pseudomonas bacteremia and sigmoid diverticulitis. INTERVAL HISTORY: The patient is currently afebrile. The patient has been breathing comfortably. The patient mentioning started on a soft diet. Has been tolerating. Denies having any worsening abdominal pain. No nausea, no vomiting. Diarrhea has improved. No chest pain or shortness of breath. Occasional cough. PHYSICAL EXAMINATION: Blood pressure 150/72 with a pulse of 83, temperature 98.8. She is 95% on room air. General description is an elderly female lying in bed in no distress. Respiratory system: Unlabored breathing. Decreased breath sounds in the bases. Heart S1, S2. Regular rate and rhythm. ABDOMEN: Soft, no tenderness. Extremities: Some trace edema of the feet. LABS: Hemoglobin 7.4, white count 2.1. BUN of 26, creatinine 0.50. DIAGNOSTIC IMPRESSION AND PLAN: Patient with Pseudomonas aeruginosa bacteremia. Concern initially for a pulmonary source now with evidence of diverticulitis. The patient is covered with Azactam and Flagyl because of her CEFEPIME ALLERGY with a rash. She has been monitored closely in view of recent exposure though so far clinically improving. Continue with the Azactam and Flagyl while monitoring clinical course closely. Continue supportive care. MMODL / IJN: [id number] /
[2019-06-09 06:00] LABS: Glucose,Whole Blood 137 mg/dL (75-99)
[2019-06-09] MEDS: AZTREONAM 2 GM in SODIUM CHLORIDE 0.9% 100 ML IVPB SCH ×3 (06:05→21:33)
[2019-06-09 07:37] LABS: Glucose,Whole Blood 149 mg/dL (75-99)
[2019-06-09] MEDS: PANTOPRAZOLE 40 MG TABLET PO SCH ×2 (08:17→17:33)
[2019-06-09] MEDS: amLODIPine 5 MG TAB PO SCH ×2 (08:17→20:34)
[2019-06-09] MEDS: ALLOPURINOL 300 MG TAB PO SCH (08:17)
[2019-06-09] MEDS: SENNOSIDES-DOCUSATE SODIUM 1 EACH TAB PO SCH ×2 (08:17→20:34)
[2019-06-09] MEDS: FILGRASTIM-SNDZ 480 MCG/0.8 ML SYRINGE SQ SCH (08:17)
[2019-06-09] MEDS: guaiFENesin 600 MG TABLET.ER PO SCH ×2 (08:17→20:34)
[2019-06-09] MEDS: POLYETHYLENE GLYCOL 3350 17 GM POWD.PACK PO SCH (08:18)
[2019-06-09] MEDS: valACYclovir HCL 1,000 MG TABLET PO SCH ×2 (08:18→20:34)
[2019-06-09] MEDS: BENZONATATE 100 MG CAP PO SCH ×3 (08:18→21:33)
[2019-06-09] MEDS: CHOLESTYRAMINE (WITH SUGAR) 4 GM PACKET PO SCH ×3 (08:18→16:49)
[2019-06-09 08:52] LABS: Basophils % (A) 0 %; Eosinophils % (A) 1 %; HCT 23.5 % (34.0-46.0); HGB 7.9 gm/dL (11.4-16.0); Lymphocytes # (A) 1.8 k/uL (1.0-4.8); Lymphocytes % (A) 89 %; MCH 28.9 pg (25.0-35.0); MCHC 33.5 g/dL (31.0-37.0); Mean Platelet Volume 8.6; Monocytes % (A) 1 %; Neutrophils % (A) 8 %; RBC 2.73 m/uL (3.80-5.40); RDW 13.3 % (11.5-15.5)
[2019-06-09 09:02] LABS: Neutrophils # (A) 0.2 k/uL (1.3-7.7)
[2019-06-09 09:03] LABS: Platelet Count 3 k/uL (150-450)
[2019-06-09 09:11] LABS: ALT 22 U/L (9-52); AST 10 U/L (14-36); African American GFR (CKD) >90 (>60 ml/min/1.73 sqM); Albumin 2.8 g/dL (3.5-5.0); Alkaline Phosphatase 46 U/L (38-126); Anion Gap 9 mmol/L; Blood Urea Nitrogen 26 mg/dL (7-17); Carbon Dioxide 26 mmol/L (22-30); Chloride 100 mmol/L (98-107); Glucose 134 mg/dL (74-99); Magnesium 1.7 mg/dL (1.6-2.3); Phosphorus 4.1 mg/dL (2.5-4.5); Potassium 4.2 mmol/L (3.5-5.1); Sodium 135 mmol/L (137-145); Total Bilirubin 0.6 mg/dL (0.2-1.3); Total Protein 5.1 g/dL (6.3-8.2); Uric Acid 0.8 mg/dL (3.7-7.4)
[2019-06-09 09:47] LABS: Ionized Calcium 4.6 mg/dL (4.5-5.3)
[2019-06-09 10:18] LABS: Poikilocytosis (M) Present
[2019-06-09] MEDS: 1: MVI, ADULT NO.4 WITH VIT K 10 ML, TRACE (CONC-1ML/DOSE) 1 ML, POTASSIUM CHLORIDE 20 M IV SCH ×6 (10:59)
[2019-06-09] MEDS: FAT EMULSION 20% 250 ML IV SCH (10:59)
[2019-06-09] MEDS: MAGNESIUM SULFATE-D5W PMX 1 GM in DEXTROSE/WATER 1 100ML.BAG IVPB SCH ×2 (11:00→17:33)
[2019-06-09] MEDS: SODIUM CHLORIDE 0.9% 500 ML 500 ML IV SCH (11:01)
[2019-06-09 11:12] LABS: Glucose,Whole Blood 151 mg/dL (75-99)
--- NOTE | 2019-06-09 14:07 | P.PN ---
Subjective Progress Note Date: 06/09/19 Principal diagnosis: Diverticulitis Patient states her pain is about the same. Her diarrhea has improved. Unfortunately her thrombocytopenia persists. No nausea or vomiting. Objective - Vital Signs Vital signs: Vital Signs Temp 98.1 F 06/09/19 13:44 Pulse 88 06/09/19 13:44 Resp 17 06/09/19 13:44 BP 165/79 06/09/19 13:44 Pulse Ox 95 06/09/19 13:44 Intake & Output 06/08/19 06/09/19 06/09/19 18:59 06:59 18:59 Intake Total 1280 2272 0 Output Total 2200 1000 1200 Balance -920 1272 -1200 Weight 95.5 kg 95.5 kg Intake: IV 1250 0.9 210 Aztreonam 2 gm In Sodium 200 Chloride 0.9% 100 ml @ 100 mls/hr IVPB Q8H [facility] Rx#:[id number] Mvi, Adult No.4 with Vit 840 K 10 ml Trace (Conc-1Ml/ Dose) 1 ml Potassium Chloride 20 meq Calcium Gluconate 1 gm Magnesium Sulfate gm 1 gm In Amino Acid 4.25%-D10w+Lytes*E* 1,000 ml @ 70 mls/hr IV . BY DURATION [facility] Rx#: [id number] Intake, IV Titration 1280 1022 Amount Aztreonam 2 gm In Sodium 200 Chloride 0.9% 100 ml @ 100 mls/hr IVPB Q8H [facility] Rx#:[id number] Potassium Chloride 20 meq 840 1022 Calcium Gluconate 1 gm Magnesium Sulfate gm 1 gm In Amino Acid 4.25%-D10w +Lytes*E* 1,000 ml @ 70 mls/hr IV .BY DURATION [facility] Rx#:[id number] Sodium Chloride 0.9% 500 240 ml 500 ml @ 20 mls/hr IV .Q24H [facility] Rx#:[id number] Blood Product 0 Platelet Irr Pheresis 0 Acda1 Unit [id number] Output: Urine 2200 1000 1200 Uretheral (Espinoza) 1000 Other: Voiding Method Indwelling Catheter Indwelling Catheter Indwelling Catheter # Voids 1 # Bowel Movements 1 - Exam Abdomen: Soft, nondistended, bilateral lower quadrant tenderness, unchanged - Labs CBC & Chem 7: 06/09/19 08:07 06/09/19 08:07 Labs: Abnormal Lab Results - Last 24 Hours (Table) 06/08/19 06/09/19 06/09/19 Range/Units 17:17 00:11 05:58 WBC (3.8-10.6) k/uL RBC (3.80-5.40) m/uL Hgb (11.4-16.0) gm/dL Hct (34.0-46.0) % Plt Count (150-450) k/uL Neutrophils # (1.3-7.7) k/uL Sodium (137-145) mmol/L BUN (7-17) mg/dL Creatinine (0.52-1.04) mg/dL Glucose (74-99) mg/dL POC Glucose (mg/dL) 158 H 149 H 137 H (75-99) mg/dL Uric Acid (3.7-7.4) mg/dL Calcium (8.4-10.2) mg/dL AST (14-36) U/L Total Protein (6.3-8.2) g/dL Albumin (3.5-5.0) g/dL 06/09/19 06/09/19 06/09/19 Range/Units 08:07 08:07 11:06 WBC 2.0 L (3.8-10.6) k/uL RBC 2.73 L (3.80-5.40) m/uL Hgb 7.9 L (11.4-16.0) gm/dL Hct 23.5 L (34.0-46.0) % Plt Count 3 L* D (150-450) k/uL Neutrophils # 0.2 L* (1.3-7.7) k/uL Sodium 135 L (137-145) mmol/L BUN 26 H (7-17) mg/dL Creatinine 0.42 L (0.52-1.04) mg/dL Glucose 134 H (74-99) mg/dL POC Glucose (mg/dL) 151 H (75-99) mg/dL Uric Acid 0.8 L (3.7-7.4) mg/dL Calcium 8.0 L (8.4-10.2) mg/dL AST 10 L (14-36) U/L Total Protein 5.1 L (6.3-8.2) g/dL Albumin 2.8 L (3.5-5.0) g/dL Assessment and Plan (1) Diverticulitis Narrative/Plan: Continue broad-spectrum antibiotics for diverticulitis with suspected abscess. Continue full liquid diet. Continue oncologic therapies. Current Visit: Yes Status: Acute Code(s): K57.92 - DVTRCLI OF INTEST, PART UNSP, W/O PERF OR ABSCESS W/O BLEED SNOMED Code(s): 496803920
--- NOTE | 2019-06-09 15:09 | P.PN ---
Subjective Progress Note Date: 06/09/19 Principal diagnosis: CLL Thrombocytopenia Platlets 3 today Objective - Vital Signs Vital signs: Vital Signs Temp 98.1 F 06/09/19 13:44 Pulse 88 06/09/19 13:44 Resp 17 06/09/19 13:44 BP 165/79 06/09/19 13:44 Pulse Ox 95 06/09/19 13:44 Intake & Output 06/08/19 06/09/19 06/09/19 18:59 06:59 18:59 Intake Total 1280 2272 560 Output Total 2200 1000 1200 Balance -920 1272 -640 Weight 95.5 kg 95.5 kg Intake: IV 1250 560 0.9 210 Aztreonam 2 gm In Sodium 200 Chloride 0.9% 100 ml @ 100 mls/hr IVPB Q8H [facility] Rx#:[id number] Mvi, Adult No.4 with Vit 840 560 K 10 ml Trace (Conc-1Ml/ Dose) 1 ml Potassium Chloride 20 meq Calcium Gluconate 1 gm Magnesium Sulfate gm 1 gm In Amino Acid 4.25%-D10w+Lytes*E* 1,000 ml @ 70 mls/hr IV . BY DURATION [facility] Rx#: [id number] Intake, IV Titration 1280 1022 Amount Aztreonam 2 gm In Sodium 200 Chloride 0.9% 100 ml @ 100 mls/hr IVPB Q8H [facility] Rx#:[id number] Potassium Chloride 20 meq 840 1022 Calcium Gluconate 1 gm Magnesium Sulfate gm 1 gm In Amino Acid 4.25%-D10w +Lytes*E* 1,000 ml @ 70 mls/hr IV .BY DURATION [facility] Rx#:[id number] Sodium Chloride 0.9% 500 240 ml 500 ml @ 20 mls/hr IV .Q24H [facility] Rx#:[id number] Blood Product 0 Platelet Irr Pheresis 0 Acda1 Unit [id number] Output: Urine 2200 1000 1200 Uretheral (Espinoza) 1000 Other: Voiding Method Indwelling Catheter Indwelling Catheter Indwelling Catheter # Voids 1 # Bowel Movements 1 - Exam General: Alert and Oriented x3, No Acute Distress Head: Normocytic, Atraumatic Neck: Supple Mouth: scabbed herpetic lesions lips Eyes: Non-sclerotic No Palpable cervical, supraclavicular, axillary adenopathy Heart: Tachy Lungs: Diminished expiratory wheeze Abdomen: Soft, Non-Distended, Non-Tended, BSx4 Extremities:lower ex folet DD, petechaie rash. Neurological: No Focal Defects: No sensory or motor deficits noted Psych: Calm and cooperative - Labs CBC & Chem 7: 06/09/19 08:07 06/09/19 08:07 Labs: Abnormal Lab Results - Last 24 Hours (Table) 06/08/19 06/09/19 06/09/19 Range/Units 17:17 00:11 05:58 WBC (3.8-10.6) k/uL RBC (3.80-5.40) m/uL Hgb (11.4-16.0) gm/dL Hct (34.0-46.0) % Plt Count (150-450) k/uL Neutrophils # (1.3-7.7) k/uL Sodium (137-145) mmol/L BUN (7-17) mg/dL Creatinine (0.52-1.04) mg/dL Glucose (74-99) mg/dL POC Glucose (mg/dL) 158 H 149 H 137 H (75-99) mg/dL Uric Acid (3.7-7.4) mg/dL Calcium (8.4-10.2) mg/dL AST (14-36) U/L Total Protein (6.3-8.2) g/dL Albumin (3.5-5.0) g/dL 06/09/19 06/09/19 06/09/19 Range/Units 08:07 08:07 11:06 WBC 2.0 L (3.8-10.6) k/uL RBC 2.73 L (3.80-5.40) m/uL Hgb 7.9 L (11.4-16.0) gm/dL Hct 23.5 L (34.0-46.0) % Plt Count 3 L* D (150-450) k/uL Neutrophils # 0.2 L* (1.3-7.7) k/uL Sodium 135 L (137-145) mmol/L BUN 26 H (7-17) mg/dL Creatinine 0.42 L (0.52-1.04) mg/dL Glucose 134 H (74-99) mg/dL POC Glucose (mg/dL) 151 H (75-99) mg/dL Uric Acid 0.8 L (3.7-7.4) mg/dL Calcium 8.0 L (8.4-10.2) mg/dL AST 10 L (14-36) U/L Total Protein 5.1 L (6.3-8.2) g/dL Albumin 2.8 L (3.5-5.0) g/dL Assessment and Plan Plan: CLL - Status PostTreatment with single agent monoclonal antibody (Rituxan) init iated inpatient 4 of 4 weekly doses on 05/07/19, 05/14/19, 05/21/19 and 05/28/19 and then Rituxan and Bendeka on 06/04/19 - due to patient' s critical condition and instability requiring ongoing hospitalization. - Monitor CBC with differential and CMP, Uric acid, LDH, Coags Labs daily - Daily follow up Pancytopenia: - Continue Supportive Care and Supportive Transfusions Refractory thrombocytopenia: Crossmatched platelets PRN, less than 10K SIRS/Sepsis: Resolved Gram Negative Bacilli Blood Cultures Psudomonas Aeruginosa - Antibiotics - ID Following Acute Hypoxic Respiratory Failure: Improved - Pulm following Hx: Breast Cancer: - Continue on Arimidex. 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 I have created the compled impression and recommendations. I agree with the above dictation by FADY Bowens. This dictation has been written as a scribe.
[2019-06-09 17:14] LABS: Glucose,Whole Blood 150 mg/dL (75-99)
--- NOTE | 2019-06-09 17:54 | XR ---
EXAMINATION TYPE: XR chest 1V portable DATE OF EXAM: 06/09/2019 COMPARISON: 05/29/2019 HISTORY: Heart failure TECHNIQUE: Single frontal view of the chest is obtained. FINDINGS: Heart is enlarged. There is coarsening of the lung markings. There is no gross heart failu re. There is some mild infiltrate in the right upper lobe. There is a left-sided central venous neeraj ter with tip in the superior vena cava. IMPRESSION: Cardiomegaly. Pulmonary fibrotic changes. Patchy right upper lobe pneumonia. No signific ant change. I see no definite pleural fluid to suggest heart failure.
--- NOTE | 2019-06-09 19:58 | PN ---
PROGRESS NOTE DATE OF SERVICE: 06/09/2019 This 73-year-old woman who was admitted with pancytopenia, SIRS, acute hypoxic respiratory failure, also had hypokalemia. The patient is also being closely monitored by Hematology/Oncology and Surgery. are planning single agent monoclonal antibody Rituxan for CLL as well as Bendeka. The patient requires continued hospitalization because of the patient's critical condition and instability. The blood pressure is elevated. The platelets are only 3, and the patient has severe pancytopenia. Sodium is 135. Past medical history reviewed. The patient also was having severe continuous diarrhea; now better with symptomatic treatment. REVIEW OF SYSTEMS: CARDIOVASCULAR SYSTEM: No angina, palpitations. RESPIRATORY SYSTEM: As mentioned earlier. GI: No nausea, vomiting. : No dysuria or retention. NERVOUS SYSTEM: No numbness, weakness. CURRENT MEDICATIONS: Reviewed. They include: 1. Tylenol 650 q.4 p.r.n. 2. Zyloprim 300 mg p.o. daily. 3. Norvasc 5 mg. 4. Lipitor 40 mg at bedtime. 5. Aztreonam 2 grams IV q.8. 6. Tessalon Perles. 7. Tums. 8. Questran 4 grams p.o. t.i.d. 9. Lomotil 1 mg 1 p.o. q.6 p.r.n. 10.TPN. 11.Zarxio 480 mcg daily. 12.Robitussin 200 mg at bedtime. 13.Mucinex 600 mg b.i.d. 14.Apresoline 25 mg daily. 15.Dilaudid 0.5 mg q.4 p.r.n. 16.Milk of Magnesia. 17.Flagyl 500 mg p.o. q.8. 18.Narcan 0.2 q.2 p.r.n. 19.Zofran 4 mg q.4 p.r.n. 20.Protonix 40 mg before meals b.i.d. 21.Senokot-S two tablets p.o. b.i.d. 22.Ultram 50 mg p.o. q.i.d. 23.Valtrex 1000 mg p.o. b.i.d. P.r.n. medication and doses are reviewed. PHYSICAL EXAMINATION: Patient is alert, oriented x3. Pulse is 88, blood pressure 179/75, respirations 16, temperature 98.1, pulse ox 93% on room air. HEENT: Conjunctivae pale. Oral mucosa moist. NECK: No jugular venous distention. No carotid bruit. No lymph node enlargement. CARDIOVASCULAR SYSTEM: S1, S2 muffled. No S3. No S4. RESPIRATORY SYSTEM: Breath sounds diminished at the bases. Scattered rhonchi and crackles. ABDOMEN: Soft, non-tender. No mass palpable. LEGS: No edema. No swelling. NERVOUS SYSTEM: No focal deficit. LABS: WBC 2, hemoglobin 7.9, platelets 3. Neutrophils are 0.2. Sodium is 135. ASSESSMENT: 1. Severe pancytopenia, neutropenia with chronic lymphoid leukemia, on chemotherapy. 2. Severe thrombocytopenia. 3. Neutropenic sepsis with Pseudomonas aeruginosa. 4. Acute hypoxic respiratory failure, multifactorial. 5. History of breast cancer. 6. History of gastrointestinal stromal neoplasm. 7. History of HSV lips and mucositis. 8. Hypokalemia. 9. 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 10.Hypertension. 11.Hyperlipidemia. 12.History of degenerative joint disease. 13.History of sleep apnea. 14.Obesity with body mass index of 41.1. 15.Petechial rash. 16.Remote history of nicotine dependence. 17.FULL CODE. RECOMMENDATIONS AND DISCUSSION: In this 73-year-old woman who presented with multiple complex medical issues, we will monitor the patient closely, continue the current management, continue with symptomatic treatment. Otherwise, monitor platelets closely. The patient has received multiple units of platelets. The platelets were fluctuating between 2 and 23 during the past 3 weeks. We will continue to monitor. Continue the rest of the medications. I would also recommend a chest x-ray, PA, for evaluation of the fluid/electrolyte balance. Repeat labs will be ordered. Closely with Hematology/Oncology. The prognosis is extremely guarded because of multiple complex medical issues. Further recommendations to follow. MMODL / IJN: [id number] [facility]
[2019-06-09] MEDS: ATORVASTATIN 40 MG TAB PO SCH (20:34)
--- NOTE | 2019-06-09 22:34 | PN ---
PROGRESS NOTE DATE OF SERVICE: 06/09/2019 REASON FOR FOLLOWUP: Pseudomonas bacteremia and diverticulitis. INTERVAL HISTORY: The patient is currently afebrile. The patient has been breathing comfortably. The patient denies having any chest pain. Occasional cough. No nausea or vomiting. No abdominal pain. Diarrhea has improved. PHYSICAL EXAMINATION: Her blood pressure is 173/75 with a pulse of 83, temperature 98.3. She is 95% on room air. General description is an elderly female lying in bed in no distress. RESPIRATORY SYSTEM: Unlabored breathing. Clear to auscultation anteriorly. HEART: S1, S2. Regular rate and rhythm. ABDOMEN: Soft. No tenderness. No guarding or rigidity. LABS: Hemoglobin is 7.9, white count of 2.0, BUN of 26, creatinine 0.42. DIAGNOSTIC IMPRESSION AND PLAN: Patient with Pseudomonas bacteremia in this patient who did have evidence of diverticulitis. The patient is currently covered with Azactam and Flagyl; to continue in view of evidence of persistent diverticulitis, slight worsening diverticulitis on a recent CT and exposure to chemo while monitoring her clinical course closely. Continue with supportive care. MMODL / IJN: [id number] /
[2019-06-10] MEDS: INSULIN ASPART (NovoLOG) 100 UNIT/ML VIAL SQ SCH ×4 (00:03→18:07)
[2019-06-10] MEDS: WITCH HAZEL 1 EACH MED..PAD TOPICAL SCH ×5 (00:05→21:20)
[2019-06-10 00:07] LABS: Glucose,Whole Blood 165 mg/dL (75-99)
[2019-06-10] MEDS: 1: MVI, ADULT NO.4 WITH VIT K 10 ML, TRACE (CONC-1ML/DOSE) 1 ML, POTASSIUM CHLORIDE 20 M IV SCH ×12 (01:16→15:58)
[2019-06-10 06:00] LABS: Glucose,Whole Blood 145 mg/dL (75-99)
[2019-06-10] MEDS: SODIUM CHLORIDE 0.9% 500 ML 500 ML IV SCH (06:02)
[2019-06-10] MEDS: AZTREONAM 2 GM in SODIUM CHLORIDE 0.9% 100 ML IVPB SCH ×3 (06:03→21:22)
--- NOTE | 2019-06-10 07:54 | P.PN ---
Subjective Progress Note Date: 06/10/19 Principal diagnosis: CLL Thrombocytopenia hemoglobin 6.5, awaiting completion of CBC this am Objective - Vital Signs Vital signs: Vital Signs Temp 97.7 F 06/10/19 05:00 Pulse 75 06/10/19 05:00 Resp 20 06/10/19 05:00 BP 138/67 06/10/19 05:00 Pulse Ox 97 06/10/19 05:00 Intake & Output 06/09/19 06/10/19 06/10/19 18:59 06:59 18:59 Intake Total 1900 170 Output Total 2200 Balance -300 170 Weight 95.5 kg 95.5 kg Intake: IV 560 170 0.9 70 Aztreonam 2 gm In Sodium 100 Chloride 0.9% 100 ml @ 100 mls/hr IVPB Q8H [facility] Rx#:[id number] Mvi, Adult No.4 with Vit 560 K 10 ml Trace (Conc-1Ml/ Dose) 1 ml Potassium Chloride 20 meq Calcium Gluconate 1 gm Magnesium Sulfate gm 1 gm In Amino Acid 4.25%-D10w+Lytes*E* 1,000 ml @ 70 mls/hr IV . BY DURATION [facility] Rx#: [id number] Intake, IV Titration 1033 Amount Mvi, Adult No.4 with Vit 1033 K 10 ml Trace (Conc-1Ml/ Dose) 1 ml Potassium Chloride 20 meq Calcium Gluconate 1 gm Magnesium Sulfate gm 1 gm In Amino Acid 4.25%-D10w+Lytes*E* 1,000 ml @ 70 mls/hr IV . BY DURATION [facility] Rx#: [id number] Blood Product 307 Platelet Irr Pheresis 307 Acda1 Unit [id number] Output: Urine 2200 Other: Voiding Method Indwelling Catheter Indwelling Catheter # Voids 1 - Exam General: Alert and Oriented x3, No Acute Distress Head: Normocytic, Atraumatic Neck: Supple Mouth: scabbed herpetic lesions lips Eyes: Non-sclerotic No Palpable cervical, supraclavicular, axillary adenopathy Heart: Tachy Lungs: Diminished expiratory wheeze Abdomen: Soft, Non-Distended, Non-Tended, BSx4 Extremities:lower ex folet DD, petechaie rash. Neurological: No Focal Defects: No sensory or motor deficits noted Psych: Calm and cooperative - Labs CBC & Chem 7: 06/10/19 08:52 08/27/19 08:52 Labs: Abnormal Lab Results - Last 24 Hours (Table) 06/09/19 06/09/19 06/09/19 Range/Units 08:07 08:07 11:06 WBC 2.0 L (3.8-10.6) k/uL RBC 2.73 L (3.80-5.40) m/uL Hgb 7.9 L (11.4-16.0) gm/dL Hct 23.5 L (34.0-46.0) % Plt Count 3 L* D (150-450) k/uL Neutrophils # 0.2 L* (1.3-7.7) k/uL Sodium 135 L (137-145) mmol/L BUN 26 H (7-17) mg/dL Creatinine 0.42 L (0.52-1.04) mg/dL Glucose 134 H (74-99) mg/dL POC Glucose (mg/dL) 151 H (75-99) mg/dL Uric Acid 0.8 L (3.7-7.4) mg/dL Calcium 8.0 L (8.4-10.2) mg/dL AST 10 L (14-36) U/L Total Protein 5.1 L (6.3-8.2) g/dL Albumin 2.8 L (3.5-5.0) g/dL 06/09/19 06/09/19 06/10/19 Range/Units 17:13 23:56 05:57 WBC (3.8-10.6) k/uL RBC (3.80-5.40) m/uL Hgb (11.4-16.0) gm/dL Hct (34.0-46.0) % Plt Count (150-450) k/uL Neutrophils # (1.3-7.7) k/uL Sodium (137-145) mmol/L BUN (7-17) mg/dL Creatinine (0.52-1.04) mg/dL Glucose (74-99) mg/dL POC Glucose (mg/dL) 150 H 165 H 145 H (75-99) mg/dL Uric Acid (3.7-7.4) mg/dL Calcium (8.4-10.2) mg/dL AST (14-36) U/L Total Protein (6.3-8.2) g/dL Albumin (3.5-5.0) g/dL Assessment and Plan Plan: CLL - Status PostTreatment with single agent monoclonal antibody (Rituxan) initiated inpatient 4 of 4 weekly doses on 05/07/19, 05/14/19, 05/21/19 and 05/28/19 and then Rituxan and Bendeka on 06/04/19 - due to patient' s critical condition and instability requiring ongoing hospitalization. - Monitor CBC with differential and CMP, Uric acid, LDH, Coags Labs daily - Daily follow up Pancytopenia: - Continue Supportive Care and Supportive Transfusions Refractory thrombocytopenia: Crossmatched platelets PRN, less than 10K SIRS/Sepsis: Resolved Gram Negative Bacilli Blood Cultures Psudomonas Aeruginosa - Antibiotics - ID Following Acute Hypoxic Respiratory Failure: Improved - Pulm following Hx: Breast Cancer: - Continue on Arimidex. 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, no treatment at this time HSV Lips: Improved Mucocytisis: Improved - Kools solution - Valtrex Hypokalemia: Persistent - Supp PRN - Monitor MAg - TPN Infusing Diarrhea: Persistent - Stool studies Chronic Illness Myopathy Plan: - Continue supportive care and Transfusions - Continue increase performance status and strength with PT/OT - Continue to utilized crossmatched platlets for transfusions when available - Await CBC this AM - Transfuse one unit PRBC today hemoglobin 6.5 Physician Attestation: I have performed the full physical examination and reviewed the full history of this patient, as well as pertinent findings. I have created the compled impression and recommendations. I agree with the above dic tation by FADY Bowens. This dictation has been written as a scribe.
[2019-06-10] MEDS: FILGRASTIM-SNDZ 480 MCG/0.8 ML SYRINGE SQ SCH (08:54)
[2019-06-10] MEDS: valACYclovir HCL 1,000 MG TABLET PO SCH ×2 (08:55→21:21)
[2019-06-10] MEDS: PANTOPRAZOLE 40 MG TABLET PO SCH ×2 (08:55→18:07)
[2019-06-10] MEDS: BENZONATATE 100 MG CAP PO SCH ×3 (08:55→21:22)
[2019-06-10] MEDS: metroNIDAZOLE 500 MG TAB PO SCH ×2 (08:55→15:57)
[2019-06-10] MEDS: ALLOPURINOL 300 MG TAB PO SCH (08:55)
[2019-06-10] MEDS: guaiFENesin 600 MG TABLET.ER PO SCH ×2 (08:56→21:21)
[2019-06-10] MEDS: SENNOSIDES-DOCUSATE SODIUM 1 EACH TAB PO SCH ×2 (08:56→21:21)
[2019-06-10] MEDS: POLYETHYLENE GLYCOL 3350 17 GM POWD.PACK PO SCH (08:56)
[2019-06-10] MEDS: amLODIPine 5 MG TAB PO SCH ×2 (08:56→21:21)
[2019-06-10 09:37] LABS: MCH 29.7 pg (25.0-35.0); MCHC 35.1 g/dL (31.0-37.0); MCV 84.6 fL (80.0-100.0); Mean Platelet Volume 7.5; RBC 2.18 m/uL (3.80-5.40); RDW 13.6 % (11.5-15.5)
[2019-06-10 10:06] LABS: HGB 6.5 gm/dL (11.4-16.0); WBC 1.4 k/uL (3.8-10.6)
[2019-06-10 10:07] LABS: HCT 18.5 % (34.0-46.0); Platelet Count 8 k/uL (150-450)
[2019-06-10 10:23] LABS: African American GFR (CKD) >90 (>60 ml/min/1.73 sqM); Anion Gap 8 mmol/L; Blood Urea Nitrogen 25 mg/dL (7-17); Calcium 7.8 mg/dL (8.4-10.2); Carbon Dioxide 27 mmol/L (22-30); Chloride 101 mmol/L (98-107); Glucose 128 mg/dL (74-99); Magnesium 2.1 mg/dL (1.6-2.3); Phosphorus 4.4 mg/dL (2.5-4.5); Potassium 4.3 mmol/L (3.5-5.1); Sodium 136 mmol/L (137-145)
[2019-06-10] MEDS: CHOLESTYRAMINE (WITH SUGAR) 4 GM PACKET PO SCH ×3 (10:56→16:50)
[2019-06-10 11:09] LABS: Neutrophils % (M) 8 %
[2019-06-10 11:10] LABS: Lymphocytes # (M) 1.19 k/uL (1.0-4.8); Nucleated Red Blood Cells 0 /100 WBC (0-0); Total Cells Counted 100
[2019-06-10 11:13] LABS: Anisocytosis (M) Present; Poikilocytosis (M) Present
[2019-06-10] MEDS: HYDROmorphone 0.5 MG/0.5 ML SYRINGE IVP PRN ×3 (11:22→21:29)
[2019-06-10 11:33] LABS: Glucose,Whole Blood 162 mg/dL (75-99)
[2019-06-10] MEDS ORDERED: FUROSEMIDE 10 MG/ML 4 ML VIAL IV STA (13:39)
--- NOTE | 2019-06-10 16:08 | PN ---
PROGRESS NOTE DATE OF SERVICE: 06/10/2019. This 73-year-old woman who was admitted with pancytopenia, sepsis and as well as acute hypoxic respiratory failure also had hypokalemia. The patient also had chemotherapy for chronic lymphoid leukemia. The patient had significant pancytopenia with white count at 1.4 today and hemoglobin 6.5 and platelets 8 today but however was single digit on multiple occasions. Patient received multiple platelet transfusions and as well as blood transfusion also being planned for today. The patient is complaining of some occasional cough. PAST MEDICAL HISTORY: Reviewed. REVIEW OF SYSTEMS: Cardiovascular system: No angina. Respiration as mentioned earlier. GI no nausea or vomiting. no dysuria. NERVOUS SYSTEM: No numbness or weakness. CURRENT MEDICATIONS: Reviewed and include: 1. Tylenol p.r.n. 2. Zyloprim 300 mg daily. 3. Norvasc 5 mg p.o. b.i.d. 4. Lipitor 40 mg q.h.s. 5. Aztreonam 2 g IV q.8h. 6. Tessalon Perles. 7. Tums p.r.n. 8. Questran 4 g p.o. t.i.d. 9. Lomotil 1 mg 1 p.o. q.6h p.r.n. 10.Zarxio 480 mcg daily. 11.Robitussin 200 mg p.o. q.6h. 12.Mucinex 600 mg p.o. b.i.d. 13.Apresoline 25 mg daily. 14.Dilaudid 0.5 mg q.4 p.r.n. 15.NovoLog scale. 16.Milk of magnesia. 17.Flagyl 500 mg p.o. q.8h. 18.Narcan 0.2 q.2 p.r.n. 19.Zofran 4 mg q.6h p.r.n. 20.Protonix 40 mg daily. 21.MiraLAX. 22.Ultram 50 mg q.i.d. p.r.n. 23.Valtrex 1000 mg p.o. b.i.d. PHYSICAL EXAMINATION: Patient is alert, oriented x3. The pulse is 75, blood pressure 130/67. Respiration 20. Temperature 97.7, pulse ox 91 percent on 2 L. HEENT: Conjunctivae pale. Oral mucosa moist. NECK is no jugular venous distention. No carotid bruit. No lymph node enlargement. CARDIOVASCULAR: S1, S2 muffled. RESPIRATION: Breath sounds diminished in the bases. Scattered rhonchi and crackles. Expiratory wheezing also present. ABDOMEN: Soft, nontender. No mass palpable. LEGS: No edema. No swelling. NERVOUS SYSTEM: Higher functions as mentioned earlier. Moves all 4 limbs. No focal motor or sensory deficits. LYMPHATICS: No lymph nodes palpable in the neck, axillae or groin. SKIN: No ulcer, no rashes, no bleeding. JOINTS: No active deforming arthropathy. LABS: WBC 1.4, hemoglobin 6.5, platelets 8. Sodium 136. ASSESSMENT: 1. Severe pancytopenia, neutropenia with chronic lymphatic leukemia on chemotherapy. 2. Severe thrombocytopenia status post platelet transfusions. 3. Neutropenic sepsis with Pseudomonas aeruginosa. 4. Acute hypoxic respiratory failure, multifactorial. 5. History of breast cancer. 6. History of gastrointestinal stromal neoplasm. 7. History of HIV lips and mucositis. 8. Hypokalemia. 9. 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 10.Hypertension. 11.Hyperlipidemia. 12.History of degenerative joint disease. 13.History of sleep apnea. 14.Obesity with body mass index 41.1. 15. rash. 16.Remote history of nicotine dependence. 17.FULL CODE. RECOMMENDATIONS AND DISCUSSION: Recommend to continue current medications, management and symptomatic treatment. Otherwise, the platelets stabilized at 8 at this time. Hemoglobin 6.4. One unit transfusion. Closely follow with Hematology/Oncology. As far as the cultures are concerned, the cultures from May 19 showed Pseudomonas aeruginosa but most recent blood cultures are negative. I would also recommend a chest x-ray which was reviewed personally by me showed cardiomegaly and fibrotic changes and patchy changes also. Currently the patient is on aztreonam. I recommend to continue to monitor along with along with Infectious Disease and further recommendations to follow. Repeat the chest x-ray depending upon the patient's condition. The dose of IV Lasix is also recommended because of the multiple IV fluids the patient has received. MMODL / IJN: [id number] /
[2019-06-10 17:06] LABS: Glucose,Whole Blood 137 mg/dL (75-99)
--- NOTE | 2019-06-10 17:38 | P.PN ---
Subjective Progress Note Date: 06/10/19 Principal diagnosis: Diverticulitis Patient doing about the same. Today's labs looked no better. Her diarrhea remains absent. She is actually tolerating her diet and would like more to eat. Objective - Vital Signs Vital signs: Vital Signs Temp 97.2 F L 06/10/19 16:30 Pulse 98 06/10/19 16:30 Resp 18 06/10/19 16:30 BP 172/79 06/10/19 16:30 Pulse Ox 95 06/10/19 16:30 Intake & Output 06/09/19 06/10/19 06/10/19 18:59 06:59 18:59 Intake Total 1900 1192 70 Output Total 2200 2925 Balance -300 1192 -2855 Weight 95.5 kg 95.5 kg Intake: IV 560 170 70 0.9 70 Aztreonam 2 gm In Sodium 100 Chloride 0.9% 100 ml @ 100 mls/hr IVPB Q8H [facility] Rx#:[id number] Mvi, Adult No.4 with Vit 560 70 K 10 ml Trace (Conc-1Ml/ Dose) 1 ml Potassium Chloride 20 meq Calcium Gluconate 1 gm Magnesium Sulfate gm 1 gm In Amino Acid 4.25%-D10w+Lytes*E* 1,000 ml @ 70 mls/hr IV . BY DURATION [facility] INCLUDES [facility] Rx#: [id number] Intake, IV Titration 1033 1022 Amount Mvi, Adult No.4 with Vit 1033 K 10 ml Trace (Conc-1Ml/ Dose) 1 ml Potassium Chloride 20 meq Calcium Gluconate 1 gm Magnesium Sulfate gm 1 gm In Amino Acid 4.25%-D10w+Lytes*E* 1,000 ml @ 70 mls/hr IV . BY DURATION COUNT INCLUDES THE [facility] Rx#: [id number] Potassium Chloride 20 meq 1022 Calcium Gluconate 1 gm Magnesium Sulfate gm 1 gm In Amino Acid 4.25%-D10w +Lytes*E* 1,000 ml @ 70 mls/hr IV .BY DURATION COUNT INCLUDES THE [facility] Rx#:[id number] Blood Product 307 0 Platelet Irr Pheresis 307 Acda1 Unit [id number] Rc Irr As1 Unit 0 [id number] Output: Urine 2200 2925 Other: Voiding Method Indwelling Catheter Indwelling Catheter Indwelling Catheter # Voids 1 - Exam Abdomen: Soft, nondistended, mild lower abdominal tenderness improved - Labs CBC & Chem 7: 06/10/19 08:52 06/10/19 08:52 Labs: Abnormal Lab Results - Last 24 Hours (Table) 06/09/19 06/09/19 06/10/19 Range/Units 16:00 23:56 05:57 WBC (3.8-10.6) k/uL RBC (3.80-5.40) m/uL Hgb (11.4-16.0) gm/dL Hct (34.0-46.0) % Plt Count (150-450) k/uL Neutrophils # (Manual) (1.3-7.7) k/uL Sodium (137-145) mmol/L BUN (7-17) mg/dL Creatinine (0.52-1.04) mg/dL Glucose (74-99) mg/dL POC Glucose (mg/dL) 165 H 145 H (75-99) mg/dL Calcium (8.4-10.2) mg/dL Crossmatch See Detail 06/10/19 06/10/19 06/10/19 Range/Units 08:52 08:52 11:26 WBC 1.4 L* (3.8-10.6) k/uL RBC 2.18 L (3.80-5.40) m/uL Hgb 6.5 L* (11.4-16.0) gm/dL Hct 18.5 L* (34.0-46.0) % Plt Count 8 L* D (150-450) k/uL Neutrophils # (Manual) 0.11 L* (1.3-7.7) k/uL Sodium 136 L (137-145) mmol/L BUN 25 H (7-17) mg/dL Creatinine 0.43 L (0.52-1.04) mg/dL Glucose 128 H (74-99) mg/dL POC Glucose (mg/dL) 162 H (75-99) mg/dL Calcium 7.8 L (8.4-10.2) mg/dL Crossmatch 06/10/19 Range/Units 17:02 WBC (3.8-10.6) k/uL RBC (3.80-5.40) m/uL Hgb (11.4-16.0) gm/dL Hct (34.0-46.0) % Plt Count (150-450) k/uL Neutrophils # (Manual) (1.3-7.7) k/uL Sodium (137-145) mmol/L BUN (7-17) mg/dL Creatinine (0.52-1.04) mg/dL Glucose (74-99) mg/dL POC Glucose (mg/dL) 137 H (75-99) mg/dL Calcium (8.4-10.2) mg/dL Crossmatch Assessment and Plan (1) Diverticulitis Narrative/Plan: Will increase diet to low fiber. Continue antibiotics for diverticulitis. Current Visit: Yes Status: Acute Code(s): K57.92 - DVTRCLI OF INTEST, PART UNSP, W/O PERF OR ABSCESS W/O BLEED SNOMED Code(s): 192948138
[2019-06-10] MEDS: ATORVASTATIN 40 MG TAB PO SCH (21:21)
[2019-06-11 00:02] LABS: Glucose,Whole Blood 167 mg/dL (75-99)
[2019-06-11] MEDS: WITCH HAZEL 1 EACH MED..PAD TOPICAL SCH ×5 (00:04→20:01)
[2019-06-11] MEDS: metroNIDAZOLE 500 MG TAB PO SCH ×3 (00:07→15:38)
[2019-06-11] MEDS: INSULIN ASPART (NovoLOG) 100 UNIT/ML VIAL SQ SCH ×4 (00:07→17:46)
[2019-06-11] MEDS ORDERED: ONDANSETRON 4 MG/2 ML VIAL ONE (05:31)
--- NOTE | 2019-06-11 05:33 | PN ---
PROGRESS NOTE DATE OF SERVICE: 06/10/2019 REASON FOR FOLLOWUP: Pseudomonas bacteremia and diverticulitis. INTERVAL HISTORY: The patient is currently afebrile. Patient has been breathing comfortably. She denies having any chest pain. Occasional cough. No nausea, no vomiting. Abdominal pain is currently controlled and no diarrhea. PHYSICAL EXAMINATION: On examination, blood pressure 164/82 with a pulse of 95, temperature 98.3. She is 95% on room air. General description is a elderly female, lying in bed in no distress. RESPIRATORY SYSTEM: Unlabored breathing, clear to auscultation anteriorly. HEART: S1, S2. Regular rate and rhythm. ABDOMEN: Soft, no tenderness. LABS: Hemoglobin 6.5, white count with 1.4, platelet count 8. BUN of 25, creatinine 0.43. DIAGNOSTIC IMPRESSION AND PLAN: Patient with Pseudomonas bacteremia in this patient who did have evidence of diverticulitis. No perforation. Patient is currently covered with Azactam and Flagyl, to continue. Will monitor clinical course: Continue with supportive care. MMODL / IJN: [id number] /
[2019-06-11 06:07] LABS: Glucose,Whole Blood 148 mg/dL (75-99)
[2019-06-11] MEDS: AZTREONAM 2 GM in SODIUM CHLORIDE 0.9% 100 ML IVPB SCH ×3 (06:07→22:12)
[2019-06-11] MEDS: 1: MVI, ADULT NO.4 WITH VIT K 10 ML, TRACE (CONC-1ML/DOSE) 1 ML, POTASSIUM CHLORIDE 20 M IV SCH ×13 (06:08→21:42)
[2019-06-11 07:30] LABS: Basophils % (A) 0 %; Eosinophils % (A) 1 %; HCT 21.7 % (34.0-46.0); HGB 7.4 gm/dL (11.4-16.0); Lymphocytes # (A) 1.7 k/uL (1.0-4.8); Lymphocytes % (A) 87 %; MCH 29.4 pg (25.0-35.0); MCHC 34.2 g/dL (31.0-37.0); Mean Platelet Volume 7.3; Monocytes % (A) 1 %; Neutrophils % (A) 10 %; RBC 2.53 m/uL (3.80-5.40); RDW 13.2 % (11.5-15.5); WBC 1.9 k/uL (3.8-10.6)
[2019-06-11 07:34] LABS: Platelet Count 6 k/uL (150-450)
[2019-06-11] MEDS: SODIUM CHLORIDE 0.9% 500 ML 500 ML IV SCH (07:39)
[2019-06-11] MEDS: POLYETHYLENE GLYCOL 3350 17 GM POWD.PACK PO SCH (07:43)
[2019-06-11] MEDS: CHOLESTYRAMINE (WITH SUGAR) 4 GM PACKET PO SCH ×3 (07:43→17:42)
[2019-06-11] MEDS: PANTOPRAZOLE 40 MG TABLET PO SCH ×2 (07:44→16:09)
[2019-06-11] MEDS: amLODIPine 5 MG TAB PO SCH ×2 (07:44→22:11)
[2019-06-11] MEDS: ALLOPURINOL 300 MG TAB PO SCH (07:44)
[2019-06-11] MEDS: FILGRASTIM-SNDZ 480 MCG/0.8 ML SYRINGE SQ SCH (07:44)
[2019-06-11] MEDS: SENNOSIDES-DOCUSATE SODIUM 1 EACH TAB PO SCH ×2 (07:44→22:11)
[2019-06-11] MEDS: guaiFENesin 600 MG TABLET.ER PO SCH ×2 (07:44→22:11)
[2019-06-11] MEDS: valACYclovir HCL 1,000 MG TABLET PO SCH ×2 (07:44→22:12)
[2019-06-11] MEDS: BENZONATATE 100 MG CAP PO SCH ×3 (07:44→22:11)
[2019-06-11 07:54] LABS: African American GFR (CKD) >90 (>60 ml/min/1.73 sqM); Anion Gap 7 mmol/L; Blood Urea Nitrogen 28 mg/dL (7-17); Calcium 7.8 mg/dL (8.4-10.2); Carbon Dioxide 25 mmol/L (22-30); Chloride 102 mmol/L (98-107); Glucose 132 mg/dL (74-99); Magnesium 1.9 mg/dL (1.6-2.3); Phosphorus 4.1 mg/dL (2.5-4.5); Potassium 4.1 mmol/L (3.5-5.1); Sodium 134 mmol/L (137-145)
[2019-06-11 08:26] LABS: Poikilocytosis (M) Present
[2019-06-11] MEDS: FAT EMULSION 20% 250 ML IV SCH (09:55)
--- NOTE | 2019-06-11 11:02 | P.PN ---
Subjective Progress Note Date: 06/11/19 Principal diagnosis: CLL Thrombocytopenia Appetite is good, platelets 6. She is in her otilia and do not expect her to present any significant improvements for approx 7-10 more days Objective - Vital Signs Vital signs: Vital Signs Temp 97.8 F 06/11/19 05:00 Pulse 80 06/11/19 05:00 Resp 20 06/11/19 05:00 BP 154/72 06/11/19 05:00 Pulse Ox 96 06/11/19 05:00 Intake & Output 06/10/19 06/11/19 06/11/19 18:59 06:59 18:59 Intake Total 1103 885 Output Total 2925 1425 Balance -1822 -540 Weight 93.5 kg Intake: IV 70 575 0.9 230 Aztreonam 2 gm In Sodium 100 Chloride 0.9% 100 ml @ 100 mls/hr IVPB Q8H [facility] Rx#:[id number] Mvi, Adult No.4 with Vit 70 245 K 10 ml Trace (Conc-1Ml/ Dose) 1 ml Potassium Chloride 20 meq Calcium Gluconate 1 gm Magnesium Sulfate gm 1 gm In Amino Acid 4.25%-D10w+Lytes*E* 1,000 ml @ 70 mls/hr IV . BY DURATION [facility] Rx#: [id number] Intake, IV Titration 1033 Amount Mvi, Adult No.4 with Vit 1033 K 10 ml Trace (Conc-1Ml/ Dose) 1 ml Potassium Chloride 20 meq Calcium Gluconate 1 gm Magnesium Sulfate gm 1 gm In Amino Acid 4.25%-D10w+Lytes*E* 1,000 ml @ 70 mls/hr IV . BY DURATION [facility] Rx#: [id number] Blood Product 0 310 Rc Irr As1 Unit 0 310 [id number] Output: Urine 2925 1425 Uretheral (Espinoza) 1425 Other: Voiding Method Indwelling Catheter Indwelling Catheter - Exam General: Alert and Oriented x3, No Acute Distress Head: Normocytic, Atraumatic Neck: Supple Mouth: scabbed herpetic lesions lips Eyes: Non-sclerotic No Palpable cervical, supraclavicular, axillary adenopathy Heart: Tachy Lungs: Diminished expiratory wheeze Abdomen: Soft, Non-Distended, Non-Tended, BSx4 Extremities:lower ex folet DD, petechaie rash. Neurological: No Focal Defects: No sensory or motor deficits noted Psych: Calm and cooperative - Labs CBC & Chem 7: 06/11/19 06:36 06/11/19 06:36 Labs: Abnormal Lab Results - Last 24 Hours (Table) 06/09/19 06/10/19 06/10/19 Range/Units 16:00 08:52 11:26 WBC (3.8-10.6) k/uL RBC (3.80-5.40) m/uL Hgb (11.4-16.0) gm/dL Hct (34.0-46.0) % Plt Count 8 L* D (150-450) k/uL Neutrophils # (1.3-7.7) k/uL Neutrophils # (Manual) 0.11 L* (1.3-7.7) k/uL Sodium (137-145) mmol/L BUN (7-17) mg/dL Creatinine (0.52-1.04) mg/dL Glucose (74-99) mg/dL POC Glucose (mg/dL) 162 H (75-99) mg/dL Calcium (8.4-10.2) mg/dL Crossmatch See Detail 06/10/19 06/11/19 06/11/19 Range/Units 17:02 00:01 06:05 WBC (3.8-10.6) k/uL RBC (3.80-5.40) m/uL Hgb (11.4-16.0) gm/dL Hct (34.0-46.0) % Plt Count (150-450) k/uL Neutrophils # (1.3-7.7) k/uL Neutrophils # (Manual) (1.3-7.7) k/uL Sodium (137-145) mmol/L BUN (7-17) mg/dL Creatinine (0.52-1.04) mg/dL Glucose (74-99) mg/dL POC Glucose (mg/dL) 137 H 167 H 148 H (75-99) mg/dL Calcium (8.4-10.2) mg/dL Crossmatch 06/11/19 06/11/19 Range/Units 06:36 06:36 WBC 1.9 L (3.8-10.6) k/uL RBC 2.53 L (3.80-5.40) m/uL Hgb 7.4 L (11.4-16.0) gm/dL Hct 21.7 L (34.0-46.0) % Plt Count 6 L* (150-450) k/uL Neutrophils # 0.2 L* (1.3-7.7) k/uL Neutrophils # (Manual) (1.3-7.7) k/uL Sodium 134 L (137-145) mmol/L BUN 28 H (7-17) mg/dL Creatinine 0.40 L (0.52-1.04) mg/dL Glucose 132 H (74-99) mg/dL POC Glucose (mg/dL) (75-99) mg/dL Calcium 7.8 L (8.4-10.2) mg/dL Crossmatch Assessment and Plan Plan: CLL - Status PostTreatment with single agent monoclonal antibody (Rituxan) initiated inpatient 4 of 4 weekly doses on 05/07/19, 05/14/19, 05/21/19 and 05/28/19 and then Rituxan and Bendeka on 06/04/19 - due to patient' s critical condition and instability requiring ongoing hospitalization. - Monitor CBC with differential and CMP, Uric acid, LDH, Coags Labs daily - Daily follow up Pancytopenia: - Continue Supportive Care and Supportive Transfusions Refractory thrombocytopenia: Crossmatched platelets PRN, less than 10K - Plat 6 transfuse today SIRS/Sepsis: Resolved Gram Negative Bacilli Blood Cultures Psudomonas Aeruginosa - Antibiotics - ID Following Acute Hypoxic Respiratory Failure: Improved - Pulm following Hx: Breast Cancer: - Continue on Arimidex. 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
[2019-06-11 11:37] LABS: Glucose,Whole Blood 152 mg/dL (75-99)
--- NOTE | 2019-06-11 12:26 | P.PN ---
Subjective Progress Note Date: 06/11/19 Principal diagnosis: Diverticulitis Patient is having dry heaves this morning. No significant output. She did feel feverish with chills. She is afebrile. Labs noted. Abdominal pain unchanged. Objective - Vital Signs Vital signs: Vital Signs Temp 97.8 F 06/11/19 05:00 Pulse 80 06/11/19 05:00 Resp 20 06/11/19 05:00 BP 154/72 06/11/19 05:00 Pulse Ox 96 06/11/19 05:00 Intake & Output 06/10/19 06/11/19 06/11/19 18:59 06:59 18:59 Intake Total 1103 885 Output Total 2925 1425 Balance -1822 -540 Weight 93.5 kg Intake: IV 70 575 0.9 230 Aztreonam 2 gm In Sodium 100 Chloride 0.9% 100 ml @ 100 mls/hr IVPB Q8H [facility] Rx#:[id number] Mvi, Adult No.4 with Vit 70 245 K 10 ml Trace (Conc-1Ml/ Dose) 1 ml Potassium Chloride 20 meq Calcium Gluconate 1 gm Magnesium Sulfate gm 1 gm In Amino Acid 4.25%-D10w+Lytes*E* 1,000 ml @ 70 mls/hr IV . BY DURATION [facility] Rx#: [id number] Intake, IV Titration 1033 Amount Mvi, Adult No.4 with Vit 1033 K 10 ml Trace (Conc-1Ml/ Dose) 1 ml Potassium Chloride 20 meq Calcium Gluconate 1 gm Magnesium Sulfate gm 1 gm In Amino Acid 4.25%-D10w+Lytes*E* 1,000 ml @ 70 mls/hr IV . BY DURATION [facility] Rx#: [id number] Blood Product 0 310 Rc Irr As1 Unit 0 310 [id number] Output: Urine 2925 1425 Uretheral (Espinoza) 1425 Other: Voiding Method Indwelling Catheter Indwelling Catheter - Exam Abdomen: Soft, nondistended, mild lower abdominal tenderness - Labs CBC & Chem 7: 06/11/19 06:36 06/11/19 06:36 Labs: Abnormal Lab Results - Last 24 Hours (Table) 06/09/19 06/10/19 06/11/19 Range/Units 16:00 17:02 00:01 WBC (3.8-10.6) k/uL RBC (3.80-5.40) m/uL Hgb (11.4-16.0) gm/dL Hct (34.0-46.0) % Plt Count (150-450) k/uL Neutrophils # (1.3-7.7) k/uL Sodium (137-145) mmol/L BUN (7-17) mg/dL Creatinine (0.52-1.04) mg/dL Glucose (74-99) mg/dL POC Glucose (mg/dL) 137 H 167 H (75-99) mg/dL Calcium (8.4-10.2) mg/dL Crossmatch See Detail 06/11/19 06/11/19 06/11/19 Range/Units 06:05 06:36 06:36 WBC 1.9 L (3.8-10.6) k/uL RBC 2.53 L (3.80-5.40) m/uL Hgb 7.4 L (11.4-16.0) gm/dL Hct 21.7 L (34.0-46.0) % Plt Count 6 L* (150-450) k/uL Neutrophils # 0.2 L* (1.3-7.7) k/uL Sodium 134 L (137-145) mmol/L BUN 28 H (7-17) mg/dL Creatinine 0.40 L (0.52-1.04) mg/dL Glucose 132 H (74-99) mg/dL POC Glucose (mg/dL) 148 H (75-99) mg/dL Calcium 7.8 L (8.4-10.2) mg/dL Crossmatch 06/11/19 Range/Units 11:35 WBC (3.8-10.6) k/uL RBC (3.80-5.40) m/uL Hgb (11.4-16.0) gm/dL Hct (34.0-46.0) % Plt Count (150-450) k/uL Neutrophils # (1.3-7.7) k/uL Sodium (137-145) mmol/L BUN (7-17) mg/dL Creatinine (0.52-1.04) mg/dL Glucose (74-99) mg/dL POC Glucose (mg/dL) 152 H (75-99) mg/dL Calcium (8.4-10.2) mg/dL Crossmatch Assessment and Plan (1) Diverticulitis Narrative/Plan: We'll decrease diet back down to full liquids. Monitor patient's complaints of dry heaves and chills. If these persist we'll repeat abdominal imaging. Current Visit: Yes Status: Acute Code(s): K57.92 - DVTRCLI OF INTEST, PART U NSP, W/O PERF OR ABSCESS W/O BLEED SNOMED Code(s): 679543901
[2019-06-11] MEDS: HYDROmorphone 0.5 MG/0.5 ML SYRINGE IVP PRN ×2 (14:44→22:11)
[2019-06-11] MEDS ORDERED: FUROSEMIDE 10 MG/ML 2 ML VIAL IV STA (15:09)
--- NOTE | 2019-06-11 15:46 | P.PN ---
Subjective Progress Note Date: 06/11/19 Principal diagnosis: This is a 73-year-old woman who was admitted with pancytopenia, sepsis, acute hypoxic respiratory failure, hypokalemia and was currently receiving chemotherapy for chronic lymphoid leukemia and is being closely monitored. Patient is being followed by multiple consultations including oncology surgery, infectious disease, and pulmonary. This morning patient was nauseated with some vomiting noted that was relieved with Zofran. Patient's platelets this morning were 6 and currently receiving a transfusion at this time. Hemoglobin is 7.4 and will continue to monitor closely. Current potassium is 4.1. Patient is lying in bed in no acute distress stating that she feels fatigued and weak and unable to increase her energy and strength. PT/OT is following. Guarded prognosis. Objective - Vital Signs Vital signs: Vital Signs Temp 98.4 F 06/11/19 11:53 Pulse 81 06/11/19 11:53 Resp 16 06/11/19 11:53 BP 153/72 06/11/19 11:53 Pulse Ox 94 L 06/11/19 11:53 Intake & Output 06/10/19 06/11/19 06/11/19 18:59 06:59 18:59 Intake Total 1103 885 Output Total 2925 1425 975 Balance -1822 -540 -975 Weight 93.5 kg Intake: IV 70 575 0.9 230 Aztreonam 2 gm In Sodium 100 Chloride 0.9% 100 ml @ 100 mls/hr IVPB Q8H [facility] Rx#:[id number] Mvi, Adult No.4 with Vit 70 245 K 10 ml Trace (Conc-1Ml/ Dose) 1 ml Potassium Chloride 20 meq Calcium Gluconate 1 gm Magnesium Sulfate gm 1 gm In Amino Acid 4.25%-D10w+Lytes*E* 1,000 ml @ 70 mls/hr IV . BY DURATION [facility] Rx#: [id number] Intake, IV Titration 1033 Amount Mvi, Adult No.4 with Vit 1033 K 10 ml Trace (Conc-1Ml/ Dose) 1 ml Potassium Chloride 20 meq Calcium Gluconate 1 gm Magnesium Sulfate gm 1 gm In Amino Acid 4.25%-D10w+Lytes*E* 1,000 ml @ 70 mls/hr IV . BY DURATION [facility] Rx#: [id number] Blood Product 0 310 Rc Irr As1 Unit 0 310 [id number] Output: Urine 2925 1425 975 Uretheral (Espinoza) 1425 975 Other: Voiding Method Indwelling Catheter Indwelling Catheter - Exam Gen: This is a 73-year-old female lying in bed in no acute distress. HEENT: Head is atraumatic, normocephalic. Pupils equal, round. Sclerae is anicteric. Oral mucosa is pale and dry NECK: Supple. No JVD. No lymphadenopathy. No thyromegaly. LUNGS: Diminished lung sounds at the bases with expiratory wheezing noted on exam. No intercostal retractions. HEART: Regular rate and rhythm. No murmur. ABDOMEN: Soft. Bowel sounds are present. No masses. Mild tenderness on deep palpation. EXTREMITIES: No pedal edema. No calf tenderness. NEUROLOGICAL: Patient is awake and lethargic, alert and oriented x3. Cranial nerves 2 through 12 are grossly intact. - Labs CBC & Chem 7: 06/11/19 06:36 06/11/19 06:36 Labs: Abnormal Lab Results - Last 24 Hours (Table) 06/09/19 06/10/19 06/11/19 Range/Units 16:00 17:02 00:01 WBC (3.8-10.6) k/uL RBC (3.80-5.40) m/uL Hgb (11.4-16.0) gm/dL Hct (34.0-46.0) % Plt Count (150-450) k/uL Neutrophils # (1.3-7.7) k/uL Sodium (137-145) mmol/L BUN (7-17) mg/dL Creatinine (0.52-1.04) mg/dL Glucose (74-99) mg/dL POC Glucose (mg/dL) 137 H 167 H (75-99) mg/dL Calcium (8.4-10.2) mg/dL Crossmatch See Detail 06/11/19 06/11/19 06/11/19 Range/Units 06:05 06:36 06:36 WBC 1.9 L (3.8-10.6) k/uL RBC 2.53 L (3.80-5.40) m/uL Hgb 7.4 L (11.4-16.0) gm/dL Hct 21.7 L (34.0-46.0) % Plt Count 6 L* (150-450) k/uL Neutrophils # 0.2 L* (1.3-7.7) k/uL Sodium 134 L (137-145) mmol/L BUN 28 H (7-17) mg/dL Creatinine 0.40 L (0.52-1.04) mg/dL Glucose 132 H (74-99) mg/dL POC Glucose (mg/dL) 148 H (75-99) mg/dL Calcium 7.8 L (8.4-10.2) mg/dL Crossmatch 06/11/19 Range/Units 11:35 WBC (3.8-10.6) k/uL RBC (3.80-5.40) m/uL Hgb (11.4-16.0) gm/dL Hct (34.0-46.0) % Plt Count (150-450) k/uL Neutrophils # (1.3-7.7) k/uL Sodium (137-145) mmol/L BUN (7-17) mg/dL Creatinine (0.52-1.04) mg/dL Glucose (74-99) mg/dL POC Glucose (mg/dL) 152 H (75-99) mg/dL Calcium (8.4-10.2) mg/dL Crossmatch Assessment and Plan Assessment: Severe pancytopenia, neutropenia with chronic lymphatic leukemia on chemotherapy Severe thrombocytopenia status post platelet transfusions. Current platelets are 6 and receiving a transfusion today Neutropenic sepsis with Pseudomonas area no the Acute hypoxic respiratory failure, multifactorial History of breast cancer History of gastrointestinal stromal neoplasm History of HSV lips and mucositis hypokalemia Myopathy related to chronic illness Hypertension Hyperlipidemia History of degenerative joint disease History of sleep apnea Obesity with body mass index of 41.1 Petechial rash of lower extremities Remote history of nicotine dependence Full code Recommendations and discussion: Recommend continue current medications, management, and symptomatic treatment. Multiple medical consultations are following closely. Per oncology platelets are to be transfused if under 10. Today's platelets are 6 and receiving a transfusion today. Patient had episode of vomiting today and will decrease diet back to full liquids and advance as tolerated. Infectious disease is following closely. Guarded prognosis. Further recommendations to follow.
[2019-06-11 17:45] LABS: Glucose,Whole Blood 147 mg/dL (75-99)
[2019-06-11] MEDS: ATORVASTATIN 40 MG TAB PO SCH (22:11)
[2019-06-11] MEDS: ONDANSETRON 4 MG/2 ML VIAL IVP PRN (22:27)
[2019-06-12] MEDS: WITCH HAZEL 1 EACH MED..PAD TOPICAL SCH ×5 (00:03→19:51)
[2019-06-12] MEDS: INSULIN ASPART (NovoLOG) 100 UNIT/ML VIAL SQ SCH ×4 (00:19→17:32)
[2019-06-12] MEDS: metroNIDAZOLE 500 MG TAB PO SCH ×3 (00:19→17:05)
[2019-06-12 00:23] LABS: Glucose,Whole Blood 155 mg/dL (75-99)
[2019-06-12] MEDS: ACETAMINOPHEN TAB 325 MG TAB PO PRN ×2 (05:32→14:25)
[2019-06-12] MEDS: ONDANSETRON 4 MG/2 ML VIAL IVP PRN ×2 (05:32→17:05)
[2019-06-12] MEDS: SODIUM CHLORIDE 0.9% 500 ML 500 ML IV SCH (05:49)
[2019-06-12] MEDS: AZTREONAM 2 GM in SODIUM CHLORIDE 0.9% 100 ML IVPB SCH ×3 (05:53→22:25)
[2019-06-12] MEDS: HYDROmorphone 0.5 MG/0.5 ML SYRINGE IVP PRN ×2 (05:53→17:16)
[2019-06-12 05:59] LABS: Glucose,Whole Blood 138 mg/dL (75-99)
--- NOTE | 2019-06-12 06:28 | PN ---
PROGRESS NOTE DATE OF SERVICE: 06/11/2019 REASON FOR FOLLOWUP: Pseudomonas bacteremia and diverticulitis. INTERVAL HISTORY: The patient is currently afebrile. The patient has been breathing comfortably. Denies having any chest pain. She was noted to have some dry hacking cough, but no worsening and did have some dry heaving though responded to Zofran. Denies having any diarrhea. Abdominal pain on the right side, mostly controlled with pain medication. PHYSICAL EXAMINATION: On examination, blood pressure is 152/75 with a pulse of 89, temperature of 98.4. She is 95% on room air. General description is an elderly female lying in bed in no distress. RESPIRATORY SYSTEM: Unlabored breathing, clear to auscultation anteriorly. HEART: S1, S2. Regular rate and rhythm. ABDOMEN: Soft, no guarding or rigidity. LABS: Hemoglobin 7.4, white count 1.9, platelet count is 6, BUN of 28, creatinine 0.40. DIAGNOSTIC IMPRESSION AND PLAN: Patient with Pseudomonas aeruginosa bacteremia. Follow up blood culture has been negative. Did have a component of diverticulitis. is concern for pneumonia. The patient is currently on Azactam and Flagyl to continue in view of his next chemo and the last CT scan did show slight worsening. Monitor her clinical course closely. Continue supportive care. MMODL / IJN: [id number] /
[2019-06-12 07:57] LABS: Neutrophils # (A) 0.2 k/uL (1.3-7.7)
[2019-06-12] MEDS: POLYETHYLENE GLYCOL 3350 17 GM POWD.PACK PO SCH (07:58)
[2019-06-12] MEDS: CHOLESTYRAMINE (WITH SUGAR) 4 GM PACKET PO SCH ×3 (07:59→17:09)
[2019-06-12] MEDS: guaiFENesin 600 MG TABLET.ER PO SCH ×2 (08:00→22:37)
[2019-06-12] MEDS: SENNOSIDES-DOCUSATE SODIUM 1 EACH TAB PO SCH ×2 (08:00→20:44)
[2019-06-12] MEDS: valACYclovir HCL 1,000 MG TABLET PO SCH ×2 (08:01→20:44)
[2019-06-12] MEDS: PANTOPRAZOLE 40 MG TABLET PO SCH ×2 (08:01→17:08)
[2019-06-12] MEDS: FILGRASTIM-SNDZ 480 MCG/0.8 ML SYRINGE SQ SCH (08:01)
[2019-06-12] MEDS: BENZONATATE 100 MG CAP PO SCH ×3 (08:01→22:25)
[2019-06-12] MEDS: amLODIPine 5 MG TAB PO SCH ×2 (08:01→20:44)
[2019-06-12] MEDS: ALLOPURINOL 300 MG TAB PO SCH (08:01)
[2019-06-12 08:56] LABS: African American GFR (CKD) >90 (>60 ml/min/1.73 sqM); Anion Gap 7 mmol/L; Blood Urea Nitrogen 27 mg/dL (7-17); Calcium 7.6 mg/dL (8.4-10.2); Carbon Dioxide 26 mmol/L (22-30); Chloride 103 mmol/L (98-107); Glucose 124 mg/dL (74-99); Phosphorus 4.1 mg/dL (2.5-4.5); Potassium 4.3 mmol/L (3.5-5.1); Sodium 136 mmol/L (137-145)
[2019-06-12 09:07] LABS: MCH 29.3 pg (25.0-35.0); MCHC 34.2 g/dL (31.0-37.0); MCV 85.4 fL (80.0-100.0); Mean Platelet Volume 6.9; RBC 2.24 m/uL (3.80-5.40); RDW 13.6 % (11.5-15.5)
[2019-06-12 09:14] LABS: HCT 19.2 % (34.0-46.0); HGB 6.6 gm/dL (11.4-16.0); WBC 1.3 k/uL (3.8-10.6)
--- NOTE | 2019-06-12 10:41 | P.PN ---
Subjective Progress Note Date: 06/12/19 Principal diagnosis: Diverticulitis Patient resting comfortably. No pain currently. She is afebrile. Objective - Vital Signs Vital signs: Vital Signs Temp 97.5 F L 06/12/19 05:00 Pulse 75 06/12/19 05:00 Resp 18 06/12/19 05:00 BP 130/66 06/12/19 05:00 Pulse Ox 97 06/12/19 05:00 Intake & Output 06/11/19 06/12/19 06/12/19 18:59 06:59 18:59 Intake Total 480 70 Output Total 1925 1200 Balance -1445 -1130 Weight 93.5 kg 93.5 kg Intake: IV 70 0.9 70 Oral 480 Output: Urine 1925 1200 Uretheral (Espinoza) 975 1200 Other: Voiding Method Indwelling Catheter Indwelling Catheter # Bowel Movements 1 - Exam Abdomen: Soft, nondistended, mild lower abdominal tenderness, no peritonitis - Labs CBC & Chem 7: 06/12/19 07:49 06/12/19 07:49 Labs: Abnormal Lab Results - Last 24 Hours (Table) 06/09/19 06/11/19 06/11/19 Range/Units 16:00 11:35 17:43 WBC (3.8-10.6) k/uL RBC (3.80-5.40) m/uL Hgb (11.4-16.0) gm/dL Hct (34.0-46.0) % Sodium (137-145) mmol/L BUN (7-17) mg/dL Creatinine (0.52-1.04) mg/dL Glucose (74-99) mg/dL POC Glucose (mg/dL) 152 H 147 H (75-99) mg/dL Calcium (8.4-10.2) mg/dL Crossmatch See Detail 06/12/19 06/12/19 06/12/19 Range/Units 00:17 05:48 07:49 WBC 1.3 L* (3.8-10.6) k/uL RBC 2.24 L (3.80-5.40) m/uL Hgb 6.6 L* (11.4-16.0) gm/dL Hct 19.2 L* (34.0-46.0) % Sodium (137-145) mmol/L BUN (7-17) mg/dL Creatinine (0.52-1.04) mg/dL Glucose (74-99) mg/dL POC Glucose (mg/dL) 155 H 138 H (75-99) mg/dL Calcium (8.4-10.2) mg/dL Crossmatch 06/12/19 Range/Units 07:49 WBC (3.8-10.6) k/uL RBC (3.80-5.40) m/uL Hgb (11.4-16.0) gm/dL Hct (34.0-46.0) % Sodium 136 L (137-145) mmol/L BUN 27 H (7-17) mg/dL Creatinine 0.47 L (0.52-1.04) mg/dL Glucose 124 H (74-99) mg/dL POC Glucose (mg/dL) (75-99) mg/dL Calcium 7.6 L (8.4-10.2) mg/dL Crossmatch Assessment and Plan (1) Diverticulitis Narrative/Plan: Continue antibiotics for diverticulitis. Continue oncologic treatment of CLL. Will follow Current Visit: Yes Status: Acute Code(s): K57.92 - DVTRCLI OF INTEST, PART UNSP, W/O PERF OR ABSCESS W/O BLEED SNOMED Code(s): 235785406
[2019-06-12 12:22] LABS: Glucose,Whole Blood 158 mg/dL (75-99)
[2019-06-12] MEDS: 1: MVI, ADULT NO.4 WITH VIT K 10 ML, TRACE (CONC-1ML/DOSE) 1 ML, POTASSIUM CHLORIDE 20 M IV SCH ×7 (12:50)
[2019-06-12 13:38] LABS: Neutrophils % (M) 5 %
[2019-06-12 13:39] LABS: Monocytes # (M) 0.04 k/uL (0-1.0); Nucleated Red Blood Cells 0 /100 WBC (0-0); Total Cells Counted 100
[2019-06-12 13:42] LABS: Platelet Count 3 k/uL (150-450)
--- NOTE | 2019-06-12 13:53 | P.PN ---
Subjective Progress Note Date: 06/12/19 Principal diagnosis: This is a 73-year-old woman who was admitted with pancytopenia, sepsis, acute hypoxic respiratory failure, hypokalemia and was currently receiving chemotherapy for chronic lymphoid leukemia and is being closely monitored. Patient is being followed by multiple consultations including oncology surgery, infectious disease, and pulmonary. This morning patient was nauseated with some vomiting noted that was relieved with Zofran. Patient's platelets this morning were 6 and currently receiving a transfusion at this time. Hemoglobin is 7.4 and will continue to monitor closely. Current potassium is 4.1. Patient is lying in bed in no acute distress stating that she feels fatigued and weak and unable to increase her energy and strength. PT/OT is following. Guarded prognosis. 06/12/2019 Patient is sitting up in bed in no acute distress. No increase in nausea or vomiting today. Patient is tolerating full liquids at this time and may advance as tolerated. Patient denies any other issues overnight. Patient denies any chest pain, shortness of breath, or palpitations at this time. Patient remains afebrile. Patient is still having some abdominal discomfort in the lower rib cage area on the sides due to her cough she states. Will continue to monitor closely. Hematology oncology is following closely. Guarded prognosis. Objective - Vital Signs Vital signs: Vital Signs Temp 98.3 F 06/12/19 13:13 Pulse 86 06/12/19 13:13 Resp 18 06/12/19 13:13 BP 146/68 06/12/19 13:13 Pulse Ox 96 06/12/19 13:13 Intake & Output 06/11/19 06/12/19 06/12/19 18:59 06:59 18:59 Intake Total 480 70 0 Output Total 1925 1200 Balance -6740 -9140 0 Weight 93.5 kg 93.5 kg Intake: IV 70 0.9 70 Oral 480 Blood Product 0 Platelet Irr Pheresis 0 Acda1 Unit [id number] Output: Urine 1925 1200 Uretheral (Espinoza) 975 1200 Other: Voiding Method Indwelling Catheter Indwelling Catheter # Bowel Movements 1 - Exam Gen: This is a 73-year-old female lying in bed in no acute distress. Vital signs are stable. Temp is 97.5F, pulse is 75, respirations are 18, blood pressure is 130/66, pulse ox is 97% on room air. HEENT: Head is atraumatic, normocephalic. Pupils equal, round. Sclerae is anicteric. Oral mucosa is pale and dry NECK: Supple. No JVD. No lymphadenopathy. No thyromegaly. LUNGS: Diminished lung sounds at the bases with expiratory wheezing noted on exam. No intercostal retractions. HEART: Regular rate and rhythm. No murmur. ABDOMEN: Soft. obese. Bowel sounds are present. No masses. Mild tenderness on deep palpation. Tenderness noted on bilateral sides near the lower rib cage. EXTREMITIES: No pedal edema. No calf tenderness. NEUROLOGICAL: Patient is awake and lethargic, alert and oriented x3. Cranial ner ves 2 through 12 are grossly intact. - Labs CBC & Chem 7: 06/12/19 07:49 06/12/19 07:49 Labs: Abnormal Lab Results - Last 24 Hours (Table) 06/09/19 06/11/19 06/11/19 Range/Units 16:00 06:36 17:43 WBC (3.8-10.6) k/uL RBC (3.80-5.40) m/uL Hgb (11.4-16.0) gm/dL Hct (34.0-46.0) % Plt Count (150-450) k/uL Neutrophils # 0.2 L* (1.3-7.7) k/uL Neutrophils # (Manual) (1.3-7.7) k/uL Sodium (137-145) mmol/L BUN (7-17) mg/dL Creatinine (0.52-1.04) mg/dL Glucose (74-99) mg/dL POC Glucose (mg/dL) 147 H (75-99) mg/dL Calcium (8.4-10.2) mg/dL Crossmatch See Detail 06/12/19 06/12/19 06/12/19 Range/Units 00:17 05:48 07:49 WBC 1.3 L* (3.8-10.6) k/uL RBC 2.24 L (3.80-5.40) m/uL Hgb 6.6 L* (11.4-16.0) gm/dL Hct 19.2 L* (34.0-46.0) % Plt Count 3 L* (150-450) k/uL Neutrophils # (1.3-7.7) k/uL Neutrophils # (Manual) 0.07 L* (1.3-7.7) k/uL Sodium (137-145) mmol/L BUN (7-17) mg/dL Creatinine (0.52-1.04) mg/dL Glucose (74-99) mg/dL POC Glucose (mg/dL) 155 H 138 H (75-99) mg/dL Calcium (8.4-10.2) mg/dL Crossmatch 06/12/19 06/12/19 Range/Units 07:49 12:21 WBC (3.8-10.6) k/uL RBC (3.80-5.40) m/uL Hgb (11.4-16.0) gm/dL Hct (34.0-46.0) % Plt Count (150-450) k/uL Neutrophils # (1.3-7.7) k/uL Neutrophils # (Manual) (1.3-7.7) k/uL Sodium 136 L (137-145) mmol/L BUN 27 H (7-17) mg/dL Creatinine 0.47 L (0.52-1.04) mg/dL Glucose 124 H (74-99) mg/dL POC Glucose (mg/dL) 158 H (75-99) mg/dL Calcium 7.6 L (8.4-10.2) mg/dL Crossmatch Assessment and Plan Assessment: Severe pancytopenia, neutropenia with chronic lymphatic leukemia on chemotherapy Severe thrombocytopenia status post platelet transfusions. Current platelets are pending at this time. 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 Multiple medical consultations are following closely. Per oncology platelets are to be transfused if under 10. Today's platelets are pending at this time. Patient denies any episodes of nausea or vomiting today and tolerating full liquids and may advance as tolerated. Infectious disease is following closely. Guarded prognosis. Further recommendations to follow.
--- NOTE | 2019-06-12 14:49 | P.PN ---
Subjective Progress Note Date: 06/12/19 Principal diagnosis: CLL Thrombocytopenia Resting comfortably, CBC decreased, Transfusions needed, crossmatched platelets should be available today Objective - Vital Signs Vital signs: Vital Signs Temp 100.8 F H 06/12/19 14:22 Pulse 91 06/12/19 14:22 Resp 20 06/12/19 14:22 BP 142/67 06/12/19 14:22 Pulse Ox 100 06/12/19 14:22 Intake & Output 06/11/19 06/12/19 06/12/19 18:59 06:59 18:59 Intake Total 480 70 262 Output Total 1925 1200 700 Balance -0239 -5427 -131 Weight 93.5 kg 93.5 kg Intake: IV 70 0.9 70 Oral 480 Blood Product 262 Platelet Irr Pheresis 262 Acda1 Unit [id number] Output: Urine 1924 1200 700 Uretheral (Espinoza) 975 1200 Other: Voiding Method Indwelling Catheter Indwelling Catheter # Bowel Movements 1 - Exam General: Alert and Oriented x3, No Acute Distress Head: Normocytic, Atraumatic Neck: Supple Mouth: scabbed herpetic lesions lips Eyes: Non-sclerotic No Palpable cervical, supraclavicular, axillary adenopathy Heart: Tachy Lungs: Diminished expiratory wheeze Abdomen: Soft, Non-Distended, Non-Tended, BSx4 Extremities:lower ex folet DD, petechaie rash. Neurological: No Focal Defects: No sensory or motor deficits noted Psych: Calm and cooperative - Labs CBC & Chem 7: 06/12/19 15:02 06/12/19 07:49 Labs: Abnormal Lab Results - Last 24 Hours (Table) 06/09/19 06/11/19 06/11/19 Range/Units 16:00 06:36 17:43 WBC (3.8-10.6) k/uL RBC (3.80-5.40) m/uL Hgb (11.4-16.0) gm/dL Hct (34.0-46.0) % Plt Count (150-450) k/uL Neutrophils # 0.2 L* (1.3-7.7) k/uL Neutrophils # (Manual) (1.3-7.7) k/uL Sodium (137-145) mmol/L BUN (7-17) mg/dL Creatinine (0.52-1.04) mg/dL Glucose (74-99) mg/dL POC Glucose (mg/dL) 147 H (75-99) mg/dL Calcium (8.4-10.2) mg/dL Crossmatch See Detail 06/12/19 06/12/19 06/12/19 Range/Units 00:17 05:48 07:49 WBC 1.3 L* (3.8-10.6) k/uL RBC 2.24 L (3.80-5.40) m/uL Hgb 6.6 L* (11.4-16.0) gm/dL Hct 19.2 L* (34.0-46.0) % Plt Count 3 L* (150-450) k/uL Neutrophils # (1.3-7.7) k/uL Neutrophils # (Manual) 0.07 L* (1.3-7.7) k/uL Sodium (137-145) mmol/L BUN (7-17) mg/dL Creatinine (0.52-1.04) mg/dL Glucose (74-99) mg/dL POC Glucose (mg/dL) 155 H 138 H (75-99) mg/dL Calcium (8.4-10.2) mg/dL Crossmatch 06/12/19 06/12/19 Range/Units 07:49 12:21 WBC (3.8-10.6) k/uL RBC (3.80-5.40) m/uL Hgb (11.4-16.0) gm/dL Hct (34.0-46.0) % Plt Count (150-450) k/uL Neutrophils # (1.3-7.7) k/uL Neutrophils # (Manual) (1.3-7.7) k/uL Sodium 136 L (137-145) mmol/L BUN 27 H (7-17) mg/dL Creatinine 0.47 L (0.52-1.04) mg/dL Glucose 124 H (74-99) mg/dL POC Glucose (mg/dL) 158 H (75-99) mg/dL Calcium 7.6 L (8.4-10.2) mg/dL Crossmatch Assessment and Plan Plan: CLL - Status PostTreatment with single agent monoclonal antibody (Rituxan) initiated inpatient 4 of 4 weekly doses on 05/07/19, 05/14/19, 05/21/19 and 05/28/19 and then Rituxan and Bendeka on 06/04/19 - due to patient' s critical condition and instability requiring ongoing hospitalization. - Monitor CBC with differential and CMP, Uric acid, LDH, Coags Labs daily - Daily follow up Pancytopenia: - Continue Supportive Care and Supportive Transfusions Refractory thrombocytopenia: Crossmatched platelets PRN, less than 10K - Plat 6 transfuse today SIRS/Sepsis: Resolved Gram Negative Bacilli Blood Cultures Psudomonas Aeruginosa - Antibiotics - ID Following Acute Hypoxic Respiratory Failure: Improved - Pulm following Hx: Breast Cancer: - Continue on Arimidex. 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, no treatment at this time HSV Lips: Improved Mucocytisis: Improved - Kools solution - Valtrex Hypokalemia: Persistent - Supp PRN - Monitor MAg - TPN Infusing Diarrhea: Persistent - Stool studies Chronic Illness Myopathy Plan: - Continue supportive care and Transfusions - Continue increase performance status and strength with PT/OT - Continue to utilized crossmatched platelets for transfusions when available - Transfuse platelets today - 3 - Crossmatched please and one hour post - Continue aggressive supportive care through otilia, expected start of presenting with response and/or recovery 7-10 days
--- NOTE | 2019-06-12 15:08 | PN ---
PROGRESS NOTE DATE OF SERVICE: 06/12/2019 REASON FOR FOLLOWUP: Pseudomonas bacteremia and diverticulitis. INTERVAL HISTORY: The patient is currently afebrile. Patient has been breathing comfortably. Denies having any chest pain. Occasional cough. No abdominal pain or diarrhea. PHYSICAL EXAMINATION: Blood pressure is 146/68 with a pulse of 86, temperature 98.3, he is 96% on room air. General description is an elderly female, lying in bed in no distress. RESPIRATORY SYSTEM: Unlabored breathing, clear to auscultation anteriorly. HEART: S1, S2. Regular rate and rhythm. ABDOMEN: Soft, no tenderness. LABS: Hemoglobin 6.1, white count of 1.3 with platelet count is 3. BUN of 27, creatinine 0.47. DIAGNOSTIC IMPRESSION AND PLAN: Patient with pseudomonas bacteremia and did have a component of diverticulitis, currently covered with Azactam and Flagyl . The patient to continue with current antibiotic even though recent exposure to and monitor her clinical course nausea. Continue supportive care. MMODL / IJN: [id number] /
[2019-06-12 15:39] LABS: MCH 29.6 pg (25.0-35.0); MCHC 34.4 g/dL (31.0-37.0); Mean Platelet Volume 8.1; RBC 2.27 m/uL (3.80-5.40); RDW 13.5 % (11.5-15.5)
[2019-06-12 15:40] LABS: HGB 6.7 gm/dL (11.4-16.0); WBC 1.4 k/uL (3.8-10.6)
[2019-06-12 15:41] LABS: HCT 19.5 % (34.0-46.0); Platelet Count 15 k/uL (150-450)
[2019-06-12 17:17] LABS: Glucose,Whole Blood 138 mg/dL (75-99)
[2019-06-12 17:58] LABS: Hypochromasia (M) Present; Lymphocytes # (M) 1.25 k/uL (1.0-4.8); Monocytes # (M) 0.03 k/uL (0-1.0); Neutrophils % (M) 9 %; Nucleated Red Blood Cells 0 /100 WBC (0-0); Total Cells Counted 100
[2019-06-12] MEDS: guaiFENesin SYRUP 100MG/5ML 200 MG/10 ML CUP PO PRN (19:55)
[2019-06-12] MEDS: ATORVASTATIN 40 MG TAB PO SCH (20:44)
[2019-06-13] MEDS: WITCH HAZEL 1 EACH MED..PAD TOPICAL SCH ×5 (00:20→21:05)
[2019-06-13 00:23] LABS: Glucose,Whole Blood 144 mg/dL (75-99)
[2019-06-13] MEDS: INSULIN ASPART (NovoLOG) 100 UNIT/ML VIAL SQ SCH ×4 (00:33→17:23)
[2019-06-13] MEDS: metroNIDAZOLE 500 MG TAB PO SCH ×3 (00:33→16:40)
[2019-06-13] MEDS: ACETAMINOPHEN TAB 325 MG TAB PO PRN (00:48)
[2019-06-13] MEDS: 1: MVI, ADULT NO.4 WITH VIT K 10 ML, TRACE (CONC-1ML/DOSE) 1 ML, POTASSIUM CHLORIDE 20 M IV SCH ×14 (05:22→19:19)
[2019-06-13] MEDS: SODIUM CHLORIDE 0.9% 500 ML 500 ML IV SCH (05:23)
[2019-06-13 06:04] LABS: Glucose,Whole Blood 131 mg/dL (75-99)
[2019-06-13] MEDS: AZTREONAM 2 GM in SODIUM CHLORIDE 0.9% 100 ML IVPB SCH ×2 (08:49→14:30)
[2019-06-13] MEDS: hydrALAZINE HCL 25 MG TAB PO PRN (08:56)
[2019-06-13] MEDS: amLODIPine 5 MG TAB PO SCH ×2 (08:57→21:04)
[2019-06-13] MEDS: BENZONATATE 100 MG CAP PO SCH (08:57)
[2019-06-13] MEDS: PANTOPRAZOLE 40 MG TABLET PO SCH ×2 (08:57→16:40)
[2019-06-13] MEDS: guaiFENesin 600 MG TABLET.ER PO SCH ×2 (08:57→21:05)
[2019-06-13] MEDS: ALLOPURINOL 300 MG TAB PO SCH (08:57)
[2019-06-13] MEDS: POLYETHYLENE GLYCOL 3350 17 GM POWD.PACK PO SCH (08:58)
[2019-06-13] MEDS: SENNOSIDES-DOCUSATE SODIUM 1 EACH TAB PO SCH ×2 (08:58→21:05)
[2019-06-13] MEDS: FILGRASTIM-SNDZ 480 MCG/0.8 ML SYRINGE SQ SCH (09:01)
[2019-06-13 09:58] LABS: Basophils % (A) 0 %; Eosinophils % (A) 1 %; HCT 22.3 % (34.0-46.0); HGB 7.8 gm/dL (11.4-16.0); Lymphocytes % (A) 84 %; MCH 30.2 pg (25.0-35.0); MCHC 34.8 g/dL (31.0-37.0); MCV 86.6 fL (80.0-100.0); Mean Platelet Volume 8.2; Monocytes % (A) 1 %; Neutrophils % (A) 12 %; Platelet Count 22 k/uL (150-450); RBC 2.58 m/uL (3.80-5.40); RDW 12.7 % (11.5-15.5)
[2019-06-13 10:23] LABS: Neutrophils # (A) 0.2 k/uL (1.3-7.7); WBC 1.2 k/uL (3.8-10.6)
[2019-06-13] MEDS: CHOLESTYRAMINE (WITH SUGAR) 4 GM PACKET PO SCH ×3 (10:28→17:03)
[2019-06-13] MEDS: valACYclovir HCL 1,000 MG TABLET PO SCH ×2 (10:33→21:04)
[2019-06-13] MEDS: HYDROmorphone 0.5 MG/0.5 ML SYRINGE IVP PRN ×2 (10:34→19:14)
[2019-06-13 10:46] LABS: African American GFR (CKD) >90 (>60 ml/min/1.73 sqM); Albumin 2.8 g/dL (3.5-5.0); Anion Gap 7 mmol/L; Blood Urea Nitrogen 23 mg/dL (7-17); Calcium 7.9 mg/dL (8.4-10.2); Carbon Dioxide 25 mmol/L (22-30); Chloride 104 mmol/L (98-107); Glucose 135 mg/dL (74-99); Magnesium 1.9 mg/dL (1.6-2.3); Phosphorus 3.8 mg/dL (2.5-4.5); Potassium 3.9 mmol/L (3.5-5.1); Sodium 136 mmol/L (137-145)
[2019-06-13 11:24] LABS: Glucose,Whole Blood 139 mg/dL (75-99)
[2019-06-13] MEDS: FAT EMULSION 20% 250 ML IV SCH (11:29)
[2019-06-13] MEDS ORDERED: MAGNESIUM SULFATE-D5W PMX 1 GM in DEXTROSE/WATER 1 100ML.BAG IVPB SCH ×2 (11:30→11:45)
[2019-06-13 12:26] LABS: Poikilocytosis (M) Present
[2019-06-13] MEDS: POTASSIUM CHLORIDE 10 MEQ in WATER FOR INJECTION 1 100ML.BAG IVPB SCH ×2 (12:30→13:41)
--- NOTE | 2019-06-13 12:38 | P.PN ---
Subjective Progress Note Date: 06/13/19 Principal diagnosis: CLL Thrombocytopenia patients CBC is improvd today, platlets 22K, responded well to crossmatched. Need ti increase overall activity. Objective - Vital Signs Vital signs: Vital Signs Temp 100.7 F H 06/13/19 11:52 Pulse 90 06/13/19 11:52 Resp 16 06/13/19 11:52 BP 150/70 06/13/19 11:52 Pulse Ox 96 06/13/19 11:52 Intake & Output 06/12/19 06/13/19 06/13/19 18:59 06:59 18:59 Intake Total 2250 1080 300 Output Total 1900 1800 700 Balance 350 -720 -400 Weight 93.5 kg 94 kg Intake: Intake, IV Titration 1028 770 Amount Mvi, Adult No.4 with Vit 770 K 10 ml Trace (Conc-1Ml/ Dose) 1 ml Potassium Chloride 20 meq Calcium Gluconate 1 gm Magnesium Sulfate gm 2 gm Sodium Chloride 2.5MEQ/ml Vial 15 meq In Amino Acid 4.25 %-D10w+Lytes*E* 1,000 ml @ 70 mls/hr IV .BY DURATION [facility] Rx#: [id number] Potassium Chloride 20 meq 1028 Calcium Gluconate 1 gm Magnesium Sulfate gm 1 gm Sodium Chloride 2.5MEQ/ ml Vial 15 meq In Amino Acid 4.25%-D10w+Lytes*E* 1,000 ml @ 70 mls/hr IV . BY D[facility]ATION [facility] Rx#: [id number] Oral 960 Blood Product 262 310 300 Platelet Irr Pheresis 2 0 300 Acda Unit [id number] Platelet Irr Pheresis 262 Acda1 Unit [id number] Rc Irr As1 Unit 310 [id number] Output: Urine 1900 1800 700 Uretheral (Espinoza) 1200 1800 Other: Voiding Method Indwelling Catheter Indwelling Catheter Indwelling Catheter # Voids 1 - Exam General: Alert and Oriented x3, No Acute Distress Head: Normocytic, left eye ptysis Neck: Supple Mouth: scabbed herpetic lesions lips resolved Eyes: Non-sclerotic No Palpable cervical, supraclavicular, axillary adenopathy Heart: Tachy Lungs: Diminished expiratory wheeze Abdomen: Soft, Non-Distended, Non-Tended, BSx4 Extremities:lower ex folet DD, petechaie rash. Neurological: No Focal Defects: No sensory or motor deficits noted Psych: Calm and cooperative - Labs CBC & Chem 7: 06/13/19 09:30 06/13/19 09:30 Labs: Abnormal Lab Results - Last 24 Hours (Table) 06/09/19 06/11/19 06/12/19 Range/Units 16:00 06:36 07:49 WBC (3.8-10.6) k/uL RBC (3.80-5.40) m/uL Hgb (11.4-16.0) gm/dL Hct (34.0-46.0) % Plt Count 3 L* (150-450) k/uL Neutrophils # 0.2 L* (1.3-7.7) k/uL Neutrophils # (Manual) 0.07 L* (1.3-7.7) k/uL Sodium (137-145) mmol/L BUN (7-17) mg/dL Creatinine (0.52-1.04) mg/dL Glucose (74-99) mg/dL POC Glucose (mg/dL) (75-99) mg/dL Calcium (8.4-10.2) mg/dL Albumin (3.5-5.0) g/dL Crossmatch See Detail 06/12/19 06/12/19 06/12/19 Range/Units 15:02 17:15 21:00 WBC 1.4 L* (3.8-10.6) k/uL RBC 2.27 L (3.80-5.40) m/uL Hgb 6.7 L* (11.4-16.0) gm/dL Hct 19.5 L* (34.0-46.0) % Plt Count 15 L* D (150-450) k/uL Neutrophils # (1.3-7.7) k/uL Neutrophils # (Manual) 0.13 L* (1.3-7.7) k/uL Sodium (137-145) mmol/L BUN (7-17) mg/dL Creatinine (0.52-1.04) mg/dL Glucose (74-99) mg/dL POC Glucose (mg/dL) 138 H (75-99) mg/dL Calcium (8.4-10.2) mg/dL Albumin (3.5-5.0) g/dL Crossmatch See Detail 06/13/19 06/13/19 06/13/19 Range/Units 00:21 06:03 09:30 WBC (3.8-10.6) k/uL RBC (3.80-5.40) m/uL Hgb (11.4-16.0) gm/dL Hct (34.0-46.0) % Plt Count (150-450) k/uL Neutrophils # (1.3-7.7) k/uL Neutrophils # (Manual) (1.3-7.7) k/uL Sodium 136 L (137-145) mmol/L BUN 23 H (7-17) mg/dL Creatinine 0.37 L (0.52-1.04) mg/dL Glucose 135 H (74-99) mg/dL POC Glucose (mg/dL) 144 H 131 H (75-99) mg/dL Calcium 7.9 L (8.4-10.2) mg/dL Albumin 2.8 L (3.5-5.0) g/dL Crossmatch 06/13/19 06/13/19 Range/Units 09:30 11:23 WBC 1.2 L* (3.8-10.6) k/uL RBC 2.58 L (3.80-5.40) m/uL Hgb 7.8 L (11.4-16.0) gm/dL Hct 22.3 L (34.0-46.0) % Plt Count 22 L (150-450) k/uL Neutrophils # 0.2 L* (1.3-7.7) k/uL Neutrophils # (Manual) (1.3-7.7) k/uL Sodium (137-145) mmol/L BUN (7-17) mg/dL Creatinine (0.52-1.04) mg/dL Glucose (74-99) mg/dL POC Glucose (mg/dL) 139 H (75-99) mg/dL Calcium (8.4-10.2) mg/dL Albumin (3.5-5.0) g/dL Crossmatch Assessment and Plan Plan: CLL - Status PostTreatment with single agent monoclonal antibody (Rituxan) initiated inpatient 4 of 4 weekly doses on 05/07/19, 05/14/19, 05/21/19 and 05/28/19 and then Rituxan and Bendeka on 06/04/19 - due to patient' s critical condition and instability requiring ongoing hospitalization. - Monitor CBC with differential and CMP, Uric acid, LDH, Coags Labs daily - Daily follow up Pancytopenia: - Continue Supportive Care and Supportive Transfusions Refractory thrombocytopenia: Crossmatched platelets PRN, less than 10K SIRS/Sepsis: Resolved Gram Negative Bacilli Blood Cultures Psudomonas Aeruginosa - Antibiotics - ID Following Acute Hypoxic Respiratory Failure: Improved - Pulm following Hx: Breast Cancer: - Continue on Arimidex. 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 Plan: - Continue supportive care and Transfusions - Continue increase performance status and strength with PT/OT - Continue to utilized crossmatched platelets for transfusions when available - Platlets recovered well with Transfusion of crossmatched platlets. Will ensure we try to have 1-2 units on hand - Continue aggressive supportive care through [facility], expected start of presenting with response and/or recovery 7-10 days - DISPO PLan per primary team, discussed with Primary team today.
--- NOTE | 2019-06-13 14:28 | P.CONS ---
History of Present Illness - Chief Complaint Medical debility - History of Present Illness I had the opportunity to see patient for inpatient consultation with regard to medical debility. Patient noted to [facility] May 19 with breast cancer, CLL and pancytopenia. Seen in consultation by Dr. Zavala in morning. Dr. Rodriguez seen for right kidney enlargement. CT of abdomen and pelvis demonstrates sigmoi d inflammatory change and right renal hemorrhage. Chest x-ray demonstrates cardiomegaly, pulmonary fibrosis and right upper lobe infiltrate. Patient has been having difficulty participating with therapy. Did participate with PT this afternoon and ambulates to doorway with 2 person moderate assistance and fatigued. Previous functional history as elicited from patient: 73-year-old right-handed [place] female who is lives in one floor home with a roommate. Patient unemployed. Describes independent with own cooking, laundry, driving, standing shower and gait without device previously. Denies tobacco or alcohol. Cannot recall her PMD. Family history mother with cardiac disease in father with pulmonary cancer. Review of Systems Review of systems: ENT: Denies sneezes or discharge. Eyes: Denies discharge or photophobia. Cardiac: Denies chest pain or palpitation. Pulmonary: At least mild shortness of breath. Breast: Denies discharge or lumps. Gastrointestinal: Denies nausea, emesis, constipation, diarrhea. Genitourinary: Denies discharge or frequency. Musculoskeletal: Denies muscle or bone aches. Neurologic: Generalized weakness. Endocrine: Denies shakes or sweats. Oncology: Denies cancers. Dermatologic: Denies rash, itching, pruritus. ALLERGY/immunology: Denies sneezes, rashes. Past Medical History Past Medical History: Blood Disorder, Cancer, Hyperlipidemia, Hypertension, Osteoarthritis (OA), Pneumonia, Sleep Apnea/CPAP/BIPAP Additional Past Medical History / Comment(s): Pt recently admitted to [facility] on 04/25/19 with acute hypoxic respiratory failure 2ndary to acute lung injury r/t blood/platelet transfusions. Other hx: CLL, low platelets, anemia, thrombocytopenia/ptechial rash, neutropenia, current cold sores, 2014 R breast cancer with lumpectomy/chemo/radiation, CÉSAR with Cpap. History of Any Multi-Drug Resistant Organisms: None Reported Past Surgical History: Bladder Surgery, Breast Surgery, Joint Replacement, Tubal Ligation, Uterine Ablation Additional Past Surgical History / Comment(s): 04/29/19 BMA with bx, R breast lumpectomy, bladder suspension, several D&Cs, colonoscopy. Past Anesthesia/Blood Transfusion Reactions: Postoperative Nausea & Vomiting (PONV) Additional Past Anesthesia/Blood Transfusion Reaction / Comm: Pt has received blood/platelets without reaction. Smoking Status: Former smoker - Past Family History Father Family Medical History: Cancer Additional Family Medical History / Comment(s): Father had lung cancer. He was a nonsmoker. Sister(s) Family Medical History: Cancer Additional Family Medical History / Comment(s): Youngest sister has lung cancer that has metastasized to her liver Mother Family Medical History: Coronary Artery Disease (CAD) Additional Family Medical History / Comment(s): Mother of a ND at the age of 96yrs. Medications and Allergies Home Medications Medication Instructions Recorded Confirmed Type Anastrozole [Arimidex] 1 mg PO DAILY 03/28/16 05/19/19 History amLODIPine [Norvasc] 5 mg PO BID 03/28/16 05/19/19 History Pantoprazole Sodium [Protonix] 40 mg PO BID #60 tablet. 04/27/16 05/19/19 Rx Allopurinol [Zyloprim] 300 mg PO DAILY 04/25/19 05/19/19 History Atorvastatin [Lipitor] 40 mg PO HS 04/25/19 05/19/19 History Docusate [Colace] 100 mg PO DAILY 04/25/19 05/19/19 History Ferrous Sulfate [Iron (65 MG 325 mg PO DAILY 04/25/19 05/19/19 History Elemental)] valACYclovir [Valtrex] 1,000 mg PO BID #60 tab 05/15/19 05/19/19 Rx Allergies Allergy/AdvReac Type Severity Reaction Status Date / Time cefepime Allergy Rash/Hives Verified 05/22/19 12:25 chocolate flavor Allergy hives Verified 05/19/19 16:33 Physical Exam Vitals: Vital Signs Temp Pulse Pulse Resp BP BP Pulse Ox 06/13/19 11:52 100.7 F H 90 16 150/70 96 06/13/19 08:45 97.4 F L 89 18 151/69 99 06/13/19 05:57 97.1 F L 69 18 143/63 99 06/13/19 05:27 97.9 F 70 18 146/67 98 06/13/19 05:17 97.1 F L 69 16 129/71 06/13/19 05:00 97.1 F L 72 16 129/71 97 06/13/19 04:16 98.3 F 78 17 134/68 97 06/13/19 01:40 98.4 F 76 16 130/60 98 06/13/19 01:10 98.6 F 87 16 158/72 94 L 06/13/19 01:00 98.7 F 85 16 155/69 95 06/12/19 20:41 98.9 F 83 16 152/72 96 06/12/19 16:00 80 20 06/12/19 14:56 98.6 F Intake and Output 06/12/19 06/13/19 06/13/19 22:59 06:59 14:59 Intake Total 3150 036 3830 Output Total 700 1800 700 Balance 470 -930 1020 Intake: IV 240 0.9 240 Intake, IV Titration 210 560 300 Amount Magnesium Sulfate-D5w Pmx 100 1 gm In Dextrose/Water 1 100ml.bag @ 100 mls/hr IVPB Q1H [facility] Rx#: [id number] Mvi, Adult No.4 with Vit 210 560 K 10 ml Trace (Conc-1Ml/ Dose) 1 ml Potassium Chloride 20 meq Calcium Gluconate 1 gm Magnesium Sulfate gm 2 gm Sodium Chloride 2.5MEQ/ml Vial 15 meq In Amino Acid 4.25 %-D10w+Lytes*E* 1,000 ml @ 70 mls/hr IV .BY DURATION [facility] Rx#: [id number] Potassium Chloride 10 meq 200 In Water For Injection 1 100ml.bag @ 100 mls/hr IVPB Q1H [facility] Rx#: [id number] Oral 960 TPN/PPN 840 0.9 840 Blood Product 310 300 Platelet Irr Pheresis 2 0 300 Acda Unit [id number] Rc Irr As1 Unit 310 [id number] Lipid 40 0.9 40 Output: Urine 700 1800 700 Uretheral (Espinoza) 700 1800 Other: Voiding Method Indwelling Catheter Indwelling Catheter Indwelling Catheter # Voids 1 Weight 94 kg Skin: Good color, texture, turgor. General: Obese build and comfortable appearance. Head: Normocephalic, atraumatic. Eyes: Symmetric. Pupils equal round. Ears: Symmetric. Hearing within normal limits. Mouth: Clear. Neck: Supple. Carotid without bruit. Cardiac: Regular rate and rhythm. Lungs: Clear anteriorly and posteriorly. Abdomen: Soft active nontender, overweight. Extremities: Normal tone. Neurological: Mental status: Alert, cooperative, pleasant. Cranial nerves: Symmetric facial tone and trapezius. Motor: Can elevate all limbs but at best antigravity. Sensation: Intact throughout. DTRs: Symmetric and equal throughout. Mobility: PT reports two-person moderate assistance for a few steps up in room at walker level. Results CBC & Chem 7: 06/13/19 09:30 06/13/19 09:30 Labs: Abnormal Lab Results - Last 24 Hours (Table) 06/09/19 06/12/19 06/12/19 Range/Units 16:00 15:02 17:15 WBC 1.4 L* (3.8-10.6) k/uL RBC 2.27 L (3.80-5.40) m/uL Hgb 6.7 L* (11.4-16.0) gm/dL Hct 19.5 L* (34.0-46.0) % Plt Count 15 L* D (150-450) k/uL Neutrophils # (1.3-7.7) k/uL Neutrophils # (Manual) 0.13 L* (1.3-7.7) k/uL Sodium (137-145) mmol/L BUN (7-17) mg/dL Creatinine (0.52-1.04) mg/dL Glucose (74-99) mg/dL POC Glucose (mg/dL) 138 H (75-99) mg/dL Calcium (8.4-10.2) mg/dL Albumin (3.5-5.0) g/dL Crossmatch See Detail 06/12/19 06/13/19 06/13/19 Range/Units 21:00 00:21 06:03 WBC (3.8-10.6) k/uL RBC (3.80-5.40) m/uL Hgb (11.4-16.0) gm/dL Hct (34.0-46.0) % Plt Count (150-450) k/uL Neutrophils # (1.3-7.7) k/uL Neutrophils # (Manual) (1.3-7.7) k/uL Sodium (137-145) mmol/L BUN (7-17) mg/dL Creatinine (0.52-1.04) mg/dL Glucose (74-99) mg/dL POC Glucose (mg/dL) 144 H 131 H (75-99) mg/dL Calcium (8.4-10.2) mg/dL Albumin (3.5-5.0) g/dL Crossmatch See Detail 06/13/19 06/13/19 06/13/19 Range/Units 09:30 09:30 11:23 WBC 1.2 L* (3.8-10.6) k/uL RBC 2.58 L (3.80-5.40) m/uL Hgb 7.8 L (11.4-16.0) gm/dL Hct 22.3 L (34.0-46.0) % Plt Count 22 L (150-450) k/uL Neutrophils # 0.2 L* (1.3-7.7) k/uL Neutrophils # (Manual) (1.3-7.7) k/uL Sodium 136 L (137-145) mmol/L BUN 23 H (7-17) mg/dL Creatinine 0.37 L (0.52-1.04) mg/dL Glucose 135 H (74-99) mg/dL POC Glucose (mg/dL) 139 H (75-99) mg/dL Calcium 7.9 L (8.4-10.2) mg/dL Albumin 2.8 L (3.5-5.0) g/dL Crossmatch Assessment and Plan (1) Moderate protein-calorie malnutrition Current Visit: Yes Status: Acute Priority: High Code(s): E44.0 - MODERATE PROTEIN-CALORIE MALNUTRITION SNOMED Code(s): 782745144 (2) Pancytopenia Current Visit: Yes Status: Acute Priority: High Code(s): D61.818 - OTHER PANCYTOPENIA SNOMED Code(s): 076206782 Plan: Impression: 1. Medical debility. 2. Pancytopenia. 3. Protein calorie malnutrition. 4. History of breast cancer and CLL. Constant plan: At this time patient having difficulty fully participate with therapy. Patient seems prefer discharge plan of [facility] and would agree with skilled care facility taken off her 07/05 care multiple persons.
[2019-06-13] MEDS: guaiFENesin-Coden 100-10MG/5ML 10 ML CUP PO PRN ×2 (14:29→21:05)
--- NOTE | 2019-06-13 16:18 | P.PN ---
Subjective Progress Note Date: 06/13/19 Principal diagnosis: Diverticulitis Patient doing well today. Platelet levels are improved. She has tolerating diet. No nausea or vomiting. No diarrhea. Says her pain is improved. T-max 100.7 today. Objective - Vital Signs Vital signs: Vital Signs Temp 100.7 F H 06/13/19 11:52 Pulse 90 06/13/19 15:06 Resp 16 06/13/19 15:06 BP 150/70 06/13/19 11:52 Pulse Ox 96 06/13/19 11:52 Intake & Output 06/12/19 06/13/19 06/13/19 18:59 06:59 18:59 Intake Total 2250 1080 1720 Output Total 1900 1800 1400 Balance 350 -720 320 Weight 93.5 kg 94 kg Intake: IV 240 0.9 240 Intake, IV Titration 1028 770 300 Amount Magnesium Sulfate-D5w Pmx 100 1 gm In Dextrose/Water 1 100ml.bag @ 100 mls/hr IVPB Q1H [facility] Rx#: [id number] Mvi, Adult No.4 with Vit 770 K 10 ml Trace (Conc-1Ml/ Dose) 1 ml Potassium Chloride 20 meq Calcium Gluconate 1 gm Magnesium Sulfate gm 2 gm Sodium Chloride 2.5MEQ/ml Vial 15 meq In Amino Acid 4.25 %-D10w+Lytes*E* 1,000 ml @ 70 mls/hr IV .BY DURATION [facility] Rx#: [id number] Potassium Chloride 10 meq 200 In Water For Injection 1 100ml.bag @ 100 mls/hr IVPB Q1H [facility] Rx#: [id number] Potassium Chloride 20 meq 1028 Calcium Gluconate 1 gm Magnesium Sulfate gm 1 gm Sodium Chloride 2.5MEQ/ ml Vial 15 meq In Amino Acid 4.25%-D10w+Lytes*E* 1,000 ml @ 70 mls/hr IV . BY DURATION [facility] Rx#: [id number] Oral 960 TPN/PPN 840 0.9 840 Blood Product 262 310 300 Platelet Irr Pheresis 2 0 300 Acda Unit [id number] Platelet Irr Pheresis 262 Acda1 Unit [id number] Rc Irr As1 Unit 310 [id number] Lipid 40 0.9 40 Output: Urine 1900 1800 1400 Uretheral (Espinoza) 1200 1800 Other: Voiding Method Indwelling Catheter Indwelling Catheter Indwelling Catheter # Voids 1 - Exam Abdomen: Soft, nondistended, mild lower abdominal tenderness - Labs CBC & Chem 7: 06/13/19 09:30 06/13/19 09:30 Labs: Abnormal Lab Results - Last 24 Hours (Table) 06/09/19 06/12/19 06/12/19 Range/Units 16:00 15:02 17:15 WBC (3.8-10.6) k/uL RBC (3.80-5.40) m/uL Hgb (11.4-16.0) gm/dL Hct (34.0-46.0) % Plt Count (150-450) k/uL Neutrophils # (1.3-7.7) k/uL Neutrophils # (Manual) 0.13 L* (1.3-7.7) k/uL Sodium (137-145) mmol/L BUN (7-17) mg/dL Creatinine (0.52-1.04) mg/dL Glucose (74-99) mg/dL POC Glucose (mg/dL) 138 H (75-99) mg/dL Calcium (8.4-10.2) mg/dL Albumin (3.5-5.0) g/dL Crossmatch See Detail 06/12/19 06/13/19 06/13/19 Range/Units 21:00 00:21 06:03 WBC (3.8-10.6) k/uL RBC (3.80-5.40) m/uL Hgb (11.4-16.0) gm/dL Hct (34.0-46.0) % Plt Count (150-450) k/uL Neutrophils # (1.3-7.7) k/uL Neutrophils # (Manual) (1.3-7.7) k/uL Sodium (137-145) mmol/L BUN (7-17) mg/dL Creatinine (0.52-1.04) mg/dL Glucose (74-99) mg/dL POC Glucose (mg/dL) 144 H 131 H (75-99) mg/dL Calcium (8.4-10.2) mg/dL Albumin (3.5-5.0) g/dL Crossmatch See Detail 06/13/19 06/13/19 06/13/19 Range/Units 09:30 09:30 11:23 WBC 1.2 L* (3.8-10.6) k/uL RBC 2.58 L (3.80-5.40) m/uL Hgb 7.8 L (11.4-16.0) gm/dL Hct 22.3 L (34.0-46.0) % Plt Count 22 L (150-450) k/uL Neutrophils # 0.2 L* (1.3-7.7) k/uL Neutrophils # (Manual) (1.3-7.7) k/uL Sodium 136 L (137-145) mmol/L BUN 23 H (7-17) mg/dL Creatinine 0.37 L (0.52-1.04) mg/dL Glucose 135 H (74-99) mg/dL POC Glucose (mg/dL) 139 H (75-99) mg/dL Calcium 7.9 L (8.4-10.2) mg/dL Albumin 2.8 L (3.5-5.0) g/dL Crossmatch Assessment and Plan (1) Diverticulitis Narrative/Plan: Continue antibiotics for diverticulitis. Ambulate. Advance diet. Current Visit: Yes Status: Acute Code(s): K57.92 - DVTRCLI OF INTEST, PART UNSP, W/O PERF OR ABSCESS W/O BLEED SNOMED Code(s): 669328666
--- NOTE | 2019-06-13 16:27 | P.PN ---
Subjective Progress Note Date: 06/13/19 Principal diagnosis: This is a 73-year-old woman who was admitted with pancytopenia, sepsis, acute hypoxic respiratory failure, hypokalemia and was currently receiving chemotherapy for chronic lymphoid leukemia and is being closely monitored. Patient is being followed by multiple consultations including oncology surgery, infectious disease, and pulmonary. This morning patient was nauseated with some vomiting noted that was relieved with Zofran. Patient's platelets this morning were 6 and currently receiving a transfusion at this time. Hemoglobin is 7.4 and will continue to monitor closely. Current potassium is 4.1. Patient is lying in bed in no acute distress stating that she feels fatigued and weak and unable to increase her energy and strength. PT/OT is following. Guarded prognosis. 06/12/2019 Patient is sitting up in bed in no acute distress. No increase in nausea or vomiting today. Patient is tolerating full liquids at this time and may advance as tolerated. Patient denies any other issues overnight. Patient denies any chest pain, shortness of breath, or palpitations at this time. Patient remains afebrile. Patient is still having some abdominal discomfort in the lower rib cage area on the sides due to her cough she states. Will continue to monitor closely. Hematology oncology is following closely. Guarded prognosis. 06/13/2019 Patient is sitting up in bed in no acute distress. A friend or family at the bedside visiting. Patient is tolerating diet and denies any nausea or vomiting at this time. Diet has been advanced. Patient denies any chest pain, shortness of breath, or palpitations at this time. Patient did have a low-grade fever today. Infectious disease is following. Patient antibiotics are currently oral Cipro and Flagyl and will continue. Patient is requesting something more for the cough as she continues to have a cough with no phlegm production. Robitussin-AC was ordered. Patient states that Tessalon Perles were not helping. Patient is having some mild side pain at her ribs due to the cough. PT/OT are following. Patient has not had the strength to get up and work with them at this time. Will continue to encourage working with PT/OT. Patient's hemoglobin and platelets have much improved today. Patient's hemoglobin is 7.8 and platelets are 22. Oncology is following closely. Discussed with the patient at length today about rehab as it would not be in her best interest to return home at this time due to the weakness and fatigue. Patient has agreed to a rehab. Case management and social work are working on possible placement. Dr. Da Silva was consulted and awaiting report. Guarded prognosis. Objective - Vital Signs Vital signs: Vital Signs Temp 100.7 F H 06/13/19 11:52 Pulse 90 06/13/19 15:06 Resp 16 06/13/19 15:06 BP 150/70 06/13/19 11:52 Pulse Ox 96 06/13/19 11:52 Intake & Output 06/12/19 06/13/19 06/13/19 18:59 06:59 18:59 Intake Total 2250 1080 1720 Output Total 1900 1800 1400 Balance 350 -720 320 Weight 93.5 kg 94 kg Intake: IV 240 0.9 240 Intake, IV Titration 1028 770 300 Amount Magnesium Sulfate-D5w Pmx 100 1 gm In Dextrose/Water 1 100ml.bag @ 100 mls/hr IVPB Q1H [facility] Rx#: [id number] Mvi, Adult No.4 with Vit 770 K 10 ml Trace (Conc-1Ml/ Dose) 1 ml Potassium Chloride 20 meq Calcium Gluconate 1 gm Magnesium Sulfate gm 2 gm Sodium Chloride 2.5MEQ/ml Vial 15 meq In Amino Acid 4.25 %-D10w+Lytes*E* 1,000 ml @ 70 mls/hr IV .BY DURATION [facility] Rx#: [id number] Potassium Chloride 10 meq 200 In Water For Injection 1 100ml.bag @ 100 mls/hr IVPB Q1H [facility] Rx#: [id number] Potassium Chloride 20 meq 1028 Calcium Gluconate 1 gm Magnesium Sulfate gm 1 gm Sodium Chloride 2.5MEQ/ ml Vial 15 meq In Amino Acid 4.25%-D10w+Lytes*E* 1,000 ml @ 70 mls/hr IV . BY DURATION [facility] Rx#: [id number] Oral 960 TPN/PPN 840 0.9 840 Blood Product 262 310 300 Platelet Irr Pheresis 2 0 300 Acda Unit [id number] Platelet Irr Pheresis 262 Acda1 Unit [id number] Rc Irr As1 Unit 310 [id number] Lipid 40 0.9 40 Output: Urine 1900 1800 1400 Uretheral (Espinoza) 1200 1800 Other: Voiding Method Indwelling Catheter Indwelling Catheter Indwelling Catheter # Voids 1 - Exam Gen: This is a 73-year-old female lying in bed in no acute distress. Vital signs are stable. Temp is 100.7 F, pulse is 90, respirations are 16, blood pressure is 150/70, pulse ox is 96% on room air. HEENT: Head is atraumatic, normocephalic. Pupils equal, round. Sclerae is anict madhavi. Oral mucosa is pale and dry NECK: Supple. No JVD. No lymphadenopathy. No thyromegaly. LUNGS: Diminished lung sounds at the bases with expiratory wheezing noted on exam. No intercostal retractions. HEART: Regular rate and rhythm. No murmur. ABDOMEN: Soft. obese. Bowel sounds are present. No masses. Mild tenderness on deep palpation. Tenderness noted on bilateral sides near the lower rib cage. EXTREMITIES: No pedal edema. No calf tenderness. NEUROLOGICAL: Patient is awake and lethargic, alert and oriented x3. Cranial nerves 2 through 12 are grossly intact. - Labs CBC & Chem 7: 06/13/19 09:30 06/13/19 09:30 Labs: Abnormal Lab Results - Last 24 Hours (Table) 06/09/19 06/12/19 06/12/19 Range/Units 16:00 15:02 17:15 WBC (3.8-10.6) k/uL RBC (3.80-5.40) m/uL Hgb (11.4-16.0) gm/dL Hct (34.0-46.0) % Plt Count (150-450) k/uL Neutrophils # (1.3-7.7) k/uL Neutrophils # (Manual) 0.13 L* (1.3-7.7) k/uL Sodium (137-145) mmol/L BUN (7-17) mg/dL Creatinine (0.52-1.04) mg/dL Glucose (74-99) mg/dL POC Glucose (mg/dL) 138 H (75-99) mg/dL Calcium (8.4-10.2) mg/dL Albumin (3.5-5.0) g/dL Crossmatch See Detail 06/12/19 06/13/19 06/13/19 Range/Units 21:00 00:21 06:03 WBC (3.8-10.6) k/uL RBC (3.80-5.40) m/uL Hgb (11.4-16.0) gm/dL Hct (34.0-46.0) % Plt Count (150-450) k/uL Neutrophils # (1.3-7.7) k/uL Neutrophils # (Manual) (1.3-7.7) k/uL Sodium (137-145) mmol/L BUN (7-17) mg/dL Creatinine (0.52-1.04) mg/dL Glucose (74-99) mg/dL POC Glucose (mg/dL) 144 H 131 H (75-99) mg/dL Calcium (8.4-10.2) mg/dL Albumin (3.5-5.0) g/dL Crossmatch See Detail 06/13/19 06/13/19 06/13/19 Range/Units 09:30 09:30 11:23 WBC 1.2 L* (3.8-10.6) k/uL RBC 2.58 L (3.80-5.40) m/uL Hgb 7.8 L (11.4-16.0) gm/dL Hct 22.3 L (34.0-46.0) % Plt Count 22 L (150-450) k/uL Neutrophils # 0.2 L* (1.3-7.7) k/uL Neutrophils # (Manual) (1.3-7.7) k/uL Sodium 136 L (137-145) mmol/L BUN 23 H (7-17) mg/dL Creatinine 0.37 L (0.52-1.04) mg/dL Glucose 135 H (74-99) mg/dL POC Glucose (mg/dL) 139 H (75-99) mg/dL Calcium 7.9 L (8.4-10.2) mg/dL Albumin 2.8 L (3.5-5.0) g/dL Crossmatch Assessment and Plan Assessment: Severe pancytopenia, neutropenia with chronic lymphatic leukemia on chemotherapy Severe thrombocytopenia status post platelet transfusions. Platelets today are 22. Hemoglobin is 7.8 Neutropenic sepsis with Pseudomonas aeruginosa. Repeat blood cultures have been negative. 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 Multiple medical consultations are following closely. Per oncology platelets are to be transfused if under 10. Today's platelets are 22. Patient denies any episodes of nausea or vomiting today and has advanced as tolerated. Infectious disease is following closely. Guarded prognosis. Further recommendations to follow. Patient has agreed to a rehab facility. Awaiting for rehab to accept her. Case management and vp digital marketing social media and crm following closely. Possible discharge in 24-48 hours.
[2019-06-13 17:13] LABS: Glucose,Whole Blood 168 mg/dL (75-99)
[2019-06-13] MEDS: ATORVASTATIN 40 MG TAB PO SCH (21:04)
[2019-06-13] MEDS: CIPROFLOXACIN HCL 500 MG TAB PO SCH (21:04)
[2019-06-14 00:23] LABS: Glucose,Whole Blood 149 mg/dL (75-99)
[2019-06-14] MEDS: metroNIDAZOLE 500 MG TAB PO SCH ×3 (00:43→16:31)
[2019-06-14] MEDS: INSULIN ASPART (NovoLOG) 100 UNIT/ML VIAL SQ SCH ×4 (00:43→18:38)
[2019-06-14] MEDS: WITCH HAZEL 1 EACH MED..PAD TOPICAL SCH ×2 (00:46→06:24)
[2019-06-14] MEDS: SODIUM CHLORIDE 0.9% 500 ML 500 ML IV SCH (06:24)
[2019-06-14 06:28] LABS: Glucose,Whole Blood 149 mg/dL (75-99)
[2019-06-14 08:04] LABS: African American GFR (CKD) >90 (>60 ml/min/1.73 sqM); Anion Gap 8 mmol/L; Blood Urea Nitrogen 22 mg/dL (7-17); Calcium 7.7 mg/dL (8.4-10.2); Carbon Dioxide 22 mmol/L (22-30); Chloride 105 mmol/L (98-107); Glucose 133 mg/dL (74-99); Magnesium 2.2 mg/dL (1.6-2.3); Phosphorus 4.1 mg/dL (2.5-4.5); Potassium 4.1 mmol/L (3.5-5.1); Sodium 135 mmol/L (137-145)
--- NOTE | 2019-06-14 08:48 | P.PN ---
Subjective Progress Note Date: 06/14/19 Principal diagnosis: Diverticulitis Patient resting comfortably. He did well overnight. Afebrile currently. No increased pain. Objective - Vital Signs Vital signs: Vital Signs Temp 97.6 F 06/14/19 04:51 Pulse 82 06/14/19 04:51 Resp 20 06/14/19 04:51 BP 144/76 06/14/19 04:51 Pulse Ox 98 06/14/19 04:51 Intake & Output 06/13/19 06/14/19 06/14/19 18:59 06:59 18:59 Intake Total 1720 1964 Output Total 2250 1000 Balance -530 964 Weight 92 kg Intake: IV 240 923 0.9 240 Fat Emulsion 20% 250 ml @ 83 20.833 mls/hr IV MoWeFr [facility] Rx#:[id number] Mvi, Adult No.4 with Vit 840 K 10 ml Trace (Conc-1Ml/ Dose) 1 ml Potassium Chloride 20 meq Calcium Gluconate 1 gm Magnesium Sulfate gm 2 gm Sodium Chloride 2.5MEQ/ml Vial 15 meq In Amino Acid 4.25 %-D10w+Lytes*E* 1,000 ml @ 70 mls/hr IV .BY DURATION [facility] Rx#: [id number] Intake, IV Titration 300 1041 Amount Magnesium Sulfate-D5w Pmx 100 1 gm In Dextrose/Water 1 100ml.bag @ 100 mls/hr IVPB Q1H [facility] Rx#: [id number] Mvi, Adult No.4 with Vit 1041 K 10 ml Trace (Conc-1Ml/ Dose) 1 ml Potassium Chloride 20 meq Calcium Gluconate 1 gm Magnesium Sulfate gm 2 gm Sodium Chloride 2.5MEQ/ml Vial 15 meq In Amino Acid 4.25 %-D10w+Lytes*E* 1,000 ml @ 70 mls/hr IV .BY DURATION [facility] Rx#: [id number] Potassium Chloride 10 meq 200 In Water For Injection 1 100ml.bag @ 100 mls/hr IVPB Q1H [facility] Rx#: [id number] TPN/PPN 840 0.9 840 Blood Product 300 Platelet Irr Pheresis 2 300 Acda Unit [id number] Lipid 40 0.9 40 Output: Urine 2250 1000 Uretheral (Espinoza) 1000 Other: Voiding Method Indwelling Catheter Indwelling Catheter # Voids 1 # Bowel Movements 1 - Exam Abdomen: Soft, nondistended, mild lower abdominal tenderness - Labs CBC & Chem 7: 06/13/19 09:30 06/14/19 06:54 Labs: Abnormal Lab Results - Last 24 Hours (Table) 06/12/19 06/13/19 06/13/19 Range/Units 21:00 09:30 09:30 WBC 1.2 L* (3.8-10.6) k/uL RBC 2.58 L (3.80-5.40) m/uL Hgb 7.8 L (11.4-16.0) gm/dL Hct 22.3 L (34.0-46.0) % Plt Count 22 L (150-450) k/uL Neutrophils # 0.2 L* (1.3-7.7) k/uL Sodium 136 L (137-145) mmol/L BUN 23 H (7-17) mg/dL Creatinine 0.37 L (0.52-1.04) mg/dL Glucose 135 H (74-99) mg/dL POC Glucose (mg/dL) (75-99) mg/dL Calcium 7.9 L (8.4-10.2) mg/dL Albumin 2.8 L (3.5-5.0) g/dL Crossmatch See Detail 06/13/19 06/13/19 06/14/19 Range/Units 11:23 17:12 00:21 WBC (3.8-10.6) k/uL RBC (3.80-5.40) m/uL Hgb (11.4-16.0) gm/dL Hct (34.0-46.0) % Plt Count (150-450) k/uL Neutrophils # (1.3-7.7) k/uL Sodium (137-145) mmol/L BUN (7-17) mg/dL Creatinine (0.52-1.04) mg/dL Glucose (74-99) mg/dL POC Glucose (mg/dL) 139 H 168 H 149 H (75-99) mg/dL Calcium (8.4-10.2) mg/dL Albumin (3.5-5.0) g/dL Crossmatch 06/14/19 06/14/19 Range/Units 06:26 06:54 WBC (3.8-10.6) k/uL RBC (3.80-5.40) m/uL Hgb (11.4-16.0) gm/dL Hct (34.0-46.0) % Plt Count (150-450) k/uL Neutrophils # (1.3-7.7) k/uL Sodium 135 L (137-145) mmol/L BUN 22 H (7-17) mg/dL Creatinine 0.38 L (0.52-1.04) mg/dL Glucose 133 H (74-99) mg/dL POC Glucose (mg/dL) 149 H (75-99) mg/dL Calcium 7.7 L (8.4-10.2) mg/dL Albumin (3.5-5.0) g/dL Crossmatch Assessment and Plan (1) Diverticulitis Narrative/Plan: Continue antibiotics. Diet as tolerated. Per nursing staff possible discharge today. Current Visit: Yes Status: Acute Code(s): K57.92 - DVTRCLI OF INTEST, PART UNSP, W/O PERF OR ABSCESS W/O BLEED SNOMED Code(s): 850836014
[2019-06-14 09:00] LABS: Basophils % (A) 0 %; Eosinophils % (A) 2 %; HGB 7.1 gm/dL (11.4-16.0); Lymphocytes # (A) 0.9 k/uL (1.0-4.8); Lymphocytes % (A) 87 %; MCH 30.2 pg (25.0-35.0); MCHC 35.4 g/dL (31.0-37.0); MCV 85.4 fL (80.0-100.0); Monocytes % (A) 3 %; Neutrophils % (A) 5 %; RBC 2.34 m/uL (3.80-5.40); RDW 13.9 % (11.5-15.5)
[2019-06-14 09:04] LABS: WBC 1.1 k/uL (3.8-10.6)
[2019-06-14 09:05] LABS: Neutrophils # (A) 0.1 k/uL (1.3-7.7); Platelet Count 14 k/uL (150-450)
[2019-06-14] MEDS: ONDANSETRON 4 MG/2 ML VIAL IVP PRN ×2 (09:27→13:57)
[2019-06-14] MEDS: guaiFENesin-Coden 100-10MG/5ML 10 ML CUP PO PRN ×3 (09:29→23:04)
[2019-06-14] MEDS: CHOLESTYRAMINE (WITH SUGAR) 4 GM PACKET PO SCH ×3 (09:30→18:38)
[2019-06-14] MEDS: SENNOSIDES-DOCUSATE SODIUM 1 EACH TAB PO SCH ×2 (09:30→20:35)
[2019-06-14] MEDS: ALLOPURINOL 300 MG TAB PO SCH (09:31)
[2019-06-14] MEDS: PANTOPRAZOLE 40 MG TABLET PO SCH ×2 (09:31→20:34)
[2019-06-14] MEDS: valACYclovir HCL 1,000 MG TABLET PO SCH ×2 (09:32→20:35)
[2019-06-14] MEDS: CIPROFLOXACIN HCL 500 MG TAB PO SCH ×2 (09:32→20:35)
[2019-06-14] MEDS: amLODIPine 5 MG TAB PO SCH ×2 (09:32→20:34)
[2019-06-14] MEDS: POLYETHYLENE GLYCOL 3350 17 GM POWD.PACK PO SCH (09:33)
[2019-06-14] MEDS: FILGRASTIM-SNDZ 480 MCG/0.8 ML SYRINGE SQ SCH (10:02)
[2019-06-14] MEDS: 1: MVI, ADULT NO.4 WITH VIT K 10 ML, TRACE (CONC-1ML/DOSE) 1 ML, POTASSIUM CHLORIDE 20 M IV SCH ×7 (10:03)
--- NOTE | 2019-06-14 10:12 | PN ---
PROGRESS NOTE DATE OF SERVICE: 06/13/2019 REASON FOR FOLLOWUP: Pseudomonas bacteremia and diverticulitis. INTERVAL HISTORY: The patient spiked a fever of 100.7 this afternoon. Patient denies having any chest pain or shortness of breath. She did have some cough, but no worsening abdominal pain. No nausea, vomiting and no diarrhea. PHYSICAL EXAMINATION: Blood pressure is 156/77 with a pulse of 83, temperature of 99.4, T-max 100.7. She is 100% on room air. General description is an elderly female, lying in bed in no distress. RESPIRATORY SYSTEM: Unlabored breathing. Decreased breath sounds at the base, no wheeze. HEART: S1, S2. Regular rate and rhythm. ABDOMEN: Soft, no tenderness. LABS: Hemoglobin is 7.4 , white count of 1.2, BUN of 23, creatinine 0.37. DIAGNOSTIC IMPRESSION AND PLAN: Patient with Pseudomonas bacteremia. This patient did have a component of diverticulitis. Currently covered with Azactam and Flagyl. Follow clinical course closely. Continue supportive care. MMODL / IJN: [id number] /
[2019-06-14] MEDS: guaiFENesin 600 MG TABLET.ER PO SCH ×2 (10:22→20:34)
--- NOTE | 2019-06-14 11:28 | P.PN ---
Subjective Progress Note Date: 06/14/19 The patient denies any new complaints. Generalized weakness persists. No obvious bleeding. She continues to have overall low-grade abdominal pain in the bilateral flank areas. Bowel movements are regular and overall soft. No fever/chills. Apparently her diet was advanced yesterday. She reports some nausea today. Objective - Vital Signs Vital signs: Vital Signs Temp 97.6 F 06/14/19 04:51 Pulse 82 06/14/19 04:51 Resp 20 06/14/19 04:51 BP 144/76 06/14/19 04:51 Pulse Ox 98 06/14/19 04:51 Intake & Output 06/13/19 06/14/19 06/14/19 18:59 06:59 18:59 Intake Total 1720 2992 Output Total 2250 1000 750 Balance -530 1991 - Weight 92 kg Intake: IV 240 923 0.9 240 Fat Emulsion 20% 250 ml @ 83 20.833 mls/hr IV Mo[facility]Fr [facility] Rx#:[id number] Mvi, Adult No.4 with Vit 840 K 10 ml Trace (Conc-1Ml/ Dose) 1 ml Potassium Chloride 20 meq Calcium Gluconate 1 gm Magnesium Sulfate gm 2 gm Sodium Chloride 2.5MEQ/ml Vial 15 meq In Amino Acid 4.25 %-D10w+Lytes*E* 1,000 ml @ 70 mls/hr IV .BY DURATION [facility] Rx#: [id number] Intake, IV Titration 300 2069 Amount Magnesium Sulfate-D5w Pmx 100 1 gm In Dextrose/Water 1 100ml.bag @ 100 mls/hr IVPB Q1H [facility] Rx#: [id number] Mvi, Adult No.4 with Vit 1041 K 10 ml Trace (Conc-1Ml/ Dose) 1 ml Potassium Chloride 20 meq Calcium Gluconate 1 gm Magnesium Sulfate gm 2 gm Sodium Chloride 2.5MEQ/ml Vial 15 meq In Amino Acid 4.25 %-D10w+Lytes*E* 1,000 ml @ 70 mls/hr IV .BY DURATION [facility] Rx#: [id number] Potassium Chloride 10 meq 200 In Water For Injection 1 100ml.bag @ 100 mls/hr IVPB Q1H [facility] Rx#: [id number] Potassium Chloride 20 meq 1028 Calcium Gluconate 1 gm Magnesium Sulfate gm 1 gm Sodium Chloride 2.5MEQ/ ml Vial 15 meq In Amino Acid 4.25%-D10w+Lytes*E* 1,000 ml @ 70 mls/hr IV . BY DURATION [facility] Rx#: [id number] TPN/PPN 840 0.9 840 Blood Product 300 Platelet Irr Pheresis 2 300 Acda Unit [id number] Lipid 40 0.9 40 Output: Urine 2250 1000 750 Uretheral (Espinoza) 1000 Other: Voiding Method Indwelling Catheter Indwelling Catheter # Voids 1 # Bowel Movements 1 - Constitutional General appearance: Present: no acute distress - EENT Eyes: Present: EOMI ENT: Present: hearing grossly normal, normal oropharynx - Respiratory Respiratory: bilateral: CTA - Cardiovascular Rhythm: regular Heart sounds: normal: S1, S2 - Gastrointestinal General gastrointestinal: Present: normal bowel sounds, soft Localized gastrointestinal: tender: RUQ, LUQ - Integumentary Integumentary: Present: normal - Neurologic Neurologic: Present: CNII-XII intact - Musculoskeletal Musculoskeletal: Present: strength equal bilaterally - Psychiatric Psychiatric: Present: A&O x's 3 - Labs CBC & Chem 7: 06/14/19 06:54 06/14/19 06:54 Labs: Abnormal Lab Results - Last 24 Hours (Table) 06/12/19 06/13/19 06/13/19 Range/Units 21:00 09:30 11:23 WBC 1.2 L* (3.8-10.6) k/uL RBC 2.58 L (3.80-5.40) m/uL Hgb 7.8 L (11.4-16.0) gm/dL Hct 22.3 L (34.0-46.0) % Plt Count 22 L (150-450) k/uL Neutrophils # 0.2 L* (1.3-7.7) k/uL Lymphocytes # (1.0-4.8) k/uL Sodium (137-145) mmol/L BUN (7-17) mg/dL Creatinine (0.52-1.04) mg/dL Glucose (74-99) mg/dL POC Glucose (mg/dL) 139 H (75-99) mg/dL Calcium (8.4-10.2) mg/dL Crossmatch See Detail 06/13/19 06/14/19 06/14/19 Range/Units 17:12 00:21 06:26 WBC (3.8-10.6) k/uL RBC (3.80-5.40) m/uL Hgb (11.4-16.0) gm/dL Hct (34.0-46.0) % Plt Count (150-450) k/uL Neutrophils # (1.3-7.7) k/uL Lymphocytes # (1.0-4.8) k/uL Sodium (137-145) mmol/L BUN (7-17) mg/dL Creatinine (0.52-1.04) mg/dL Glucose (74-99) mg/dL POC Glucose (mg/dL) 168 H 149 H 149 H (75-99) mg/dL Calcium (8.4-10.2) mg/dL Crossmatch 06/14/19 06/14/19 Range/Units 06:54 06:54 WBC 1.1 L* (3.8-10.6) k/uL RBC 2.34 L (3.80-5.40) m/uL Hgb 7.1 L (11.4-16.0) gm/dL Hct 20.0 L (34.0-46.0) % Plt Count 14 L* (150-450) k/uL Neutrophils # 0.1 L* (1.3-7.7) k/uL Lymphocytes # 0.9 L (1.0-4.8) k/uL Sodium 135 L (137-145) mmol/L BUN 22 H (7-17) mg/dL Creatinine 0.38 L (0.52-1.04) mg/dL Glucose 133 H (74-99) mg/dL POC Glucose (mg/dL) (75-99) mg/dL Calcium 7.7 L (8.4-10.2) mg/dL Crossmatch Assessment and Plan (1) Diverticulitis Narrative/Plan: The patient had evidence of diverticulitis with abscess and possible fistula in the setting of prolonged neutropenia. Therefore she was made nothing by mouth and placed on TPN, along with ongoing treatment with aggressive antibiotics. Her diet was apparently advanced yesterday. However the patient continues to be neutropenic and reports some nausea today. She continues to have tenderness on exam. At this time I would not recommend advancing her diet significantly, as her neutropenia still persists. She'll be switched back to nothing by mouth other than medications/ALLERGIES/Popsicles.. Continue TPN. I will repeat abdominal imaging to assess the area of concern. ( Of note, in this patient with prolonged neutropenia, physical exam may not be very reliable, due to decreased inflammatory response). If for imaging show significant improvement, then we can consider advancing her diet very cautiously. Current Visit: Yes Status: Acute Code(s): K57.92 - DVTRCLI OF INTEST, PART UNSP, W/O PERF OR ABSCESS W/O BLEED SNOMED Code(s): 315019966 (2) Abnormal CT scan, kidney Current Visit: Yes Status: Acute Code(s): R93.429 - ABNORMAL RADIOLOGIC FINDINGS ON DX IMAGING OF UNSP KIDNEY SNOMED Code(s): 125988917 (3) Pancytopenia Narrative/Plan: This is due to extensive marrow involvement by CLL. The patient has undergone chemotherapy about a week ago. Resuming chemotherapy is effective, it may take one to 2 weeks before response is noted. Continue to monitor counts with supportive transfusions as needed. Current Visit: Yes Status: Acute Priority: High Code(s): D61.818 - OTHER PANCYTOPENIA SNOMED Code(s): 184102210 (4) CLL (chronic lymphocytic leukemia) Narrative/Plan: As above. The patient had a good peripheral response to Rituxan, but did not have recovery of counts indicating continued involvement of the bone marrow with CLL. She has therefore received bendamustine and Rituxan. As noted above, if the treatment is effective we should start seeing response by about 2 weeks. Current Visit: Yes Status: Chronic Priority: High Code(s): C91.90 - LYMPHOID LEUKEMIA, UNSPECIFIED NOT HAVING ACHIEVED REMISSION SNOMED Code(s): 23930184 Plan: The patient is quite debilitated, and the plan was to transfer her for [facility]. She was not felt to be a good candidate for inpatient rehab. Case was discussed with case management. Unless it is felt to be appropriate to advance her diet, the patient will need bowel rest and TPN. If need for TPN is ongoing, then she would need to go to a facility where she can continue that
[2019-06-14 11:50] LABS: Glucose,Whole Blood 146 mg/dL (75-99)
[2019-06-14] MEDS: IOPAMIDOL-300 CONTRAST 30 ML VIAL (ORAL USE) PO PRN ×2 (12:55→13:57)
[2019-06-14 18:08] LABS: Glucose,Whole Blood 145 mg/dL (75-99)
[2019-06-14] MEDS: traMADol 50 MG TAB PO PRN (20:34)
[2019-06-14] MEDS: ATORVASTATIN 40 MG TAB PO SCH (20:35)
--- NOTE | 2019-06-14 21:15 | PN ---
PROGRESS NOTE DATE OF SERVICE: 06/14/2019 REASON FOR FOLLOWUP: Pseudomonas bacteremia, diverticulitis. INTERVAL HISTORY: The patient is currently afebrile. Patient is breathing comfortably. Denies any chest pain. Occasional cough. No nausea, no vomiting. Abdominal pain has improved and no diarrhea. PHYSICAL EXAMINATION: Blood pressure 141/57 with a pulse of 79, temperature is 97.9, she is 97% on room air. General description is an elderly female lying in bed in no distress. Respiratory system: Unlabored breathing, clear to auscultation anteriorly. Heart S1, S2. Regular rate and rhythm. Abdomen soft. No significant tenderness, guarding, or rigidity. LABS: Hemoglobin is 7.1. BUN of 22, creatinine 0.3. DIAGNOSTIC IMPRESSION AND PLAN: Patient with Pseudomonas aeruginosa bacteremia. The patient did have diverticulitis. A repeat CT has been ordered for today for followup. Antibiotic was switched to Cipro and Flagyl by admitting team. Will continue to monitor the patient closely on oral antibiotics and continue supportive care. MMODL / IJN: [id number] /
--- NOTE | 2019-06-14 22:12 | PN ---
PROGRESS NOTE DATE OF SERVICE: 06/14/2019 DATE OF SERVICE: This 73-year-old woman was admitted with significant pancytopenia, severe leukopenia, thrombocytopenia after CLL treatment. Being closely monitored. The patient complained of generalized weakness. Also abdominal and pelvis CT scan recommended by Dr. Oliva. Dr. Oliva also recommended diet to be maintained on n.p.o. except medications and ice chips and popsicles at this time. The patient is also being evaluated by Dr. Da Silva of inpatient rehabilitation also. Surgery and Infectious Disease also following the patient closely. The cultures are showing Pseudomonas aeruginosa from the blood initially, but the most recent blood cultures are negative. PAST MEDICAL HISTORY: Reviewed. REVIEW OF SYSTEMS: CARDIOVASCULAR SYSTEM: No angina. GI: As mentioned. : No dysuria. NERVOUS SYSTEM: No numbness or weakness. CURRENT MEDICATIONS: Reviewed include: 1. Tylenol p.r.n. 2. Zyloprim 100 mg daily. 3. Norvasc 5 mg p.o. b.i.d. 4. Lipitor 40 mg at bedtime. 5. Tums 500 mg q.i.d. p.r.n. 6. Questran. 7. Cipro 500 mg p.o. b.i.d. 9. Robitussin. 10.Mucinex. 11.Apresoline. 12.Dilaudid. 13.Flagyl. 14.Zofran. 15.P.r.n. medication doses are reviewed. PHYSICAL EXAM: Patient is alert, oriented x3. Pulse is 80, blood pressure is 130/62, respirations 16, temperature 97.7, pulse ox 98% on room air. HEENT: Conjunctivae pale. Oral mucosa moist. NECK: No jugular venous distention. No lymph node enlargement. CARDIOVASCULAR: S1 andS2 muffled. LUNGS: Breath sounds diminished at the bases. Scattered rhonchi. ABDOMEN: Soft, nontender. No mass palpable. LEGS: No swelling. SOFTWARE QUALITY ANALYST: Diffusely weak. LABS: WBC 11.1, hemoglobin 7.2, platelets are 14. Sodium 135. Accu-Cheks are noted. ASSESSMENT: 1. Severe pancytopenia, neutropenia, with chronic lymphatic leukemia on chemotherapy. 2. Severe thrombocytopenia, status post multiple blood transfusions. 3. Pseudomonas sepsis and neutropenic sepsis. 4. Acute hypoxic respiratory failure, multifactorial. 5. History of breast cancer. 6. 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 8. Hypokalemia. 9. 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 10.Hypertension. 11.Hyperlipidemia. 12.Gait dysfunction. 13.History of degenerative joint disease. 14.History of sleep apnea. 15.Obesity body mass index for 41.1. 16.Remote history of nicotine dependence. 17.FULL CODE. RECOMMENDATIONS AND DISCUSSION: Recommend to continue current medications, continue with monitor and symptomatic treatment. Continue the antibiotics. Continue the rest of medications. Repeat labs. CT scan abdomen and pelvis repeated. Guarded prognosis because of multiple complex medical conditions: Further recommendations to follow. MMODL / IJN: [id number] / KARRIE
[2019-06-14 23:54] LABS: Glucose,Whole Blood 158 mg/dL (75-99)
[2019-06-15] MEDS: INSULIN ASPART (NovoLOG) 100 UNIT/ML VIAL SQ SCH ×4 (00:07→18:08)
[2019-06-15] MEDS: metroNIDAZOLE 500 MG TAB PO SCH ×3 (00:07→16:38)
[2019-06-15] MEDS: 1: MVI, ADULT NO.4 WITH VIT K 10 ML, TRACE (CONC-1ML/DOSE) 1 ML, POTASSIUM CHLORIDE 20 M IV SCH ×14 (00:10→16:21)
[2019-06-15 06:02] LABS: Glucose,Whole Blood 146 mg/dL (75-99)
[2019-06-15] MEDS: SODIUM CHLORIDE 0.9% 500 ML 500 ML IV SCH (06:09)
[2019-06-15] MEDS: ONDANSETRON 4 MG/2 ML VIAL IVP PRN (08:16)
[2019-06-15] MEDS: guaiFENesin-Coden 100-10MG/5ML 10 ML CUP PO PRN ×2 (08:17→21:29)
[2019-06-15] MEDS: traMADol 50 MG TAB PO PRN ×2 (08:18→21:27)
[2019-06-15] MEDS: CALCIUM CARBONATE 500 MG CHEWABLE PO PRN (08:18)
[2019-06-15] MEDS: FILGRASTIM-SNDZ 480 MCG/0.8 ML SYRINGE SQ SCH (08:18)
[2019-06-15] MEDS: amLODIPine 5 MG TAB PO SCH ×2 (08:18→21:28)
[2019-06-15] MEDS: ALLOPURINOL 300 MG TAB PO SCH (08:18)
[2019-06-15] MEDS: hydrALAZINE HCL 25 MG TAB PO PRN ×2 (08:18→16:38)
[2019-06-15] MEDS: guaiFENesin 600 MG TABLET.ER PO SCH ×2 (08:18→21:28)
[2019-06-15] MEDS: PANTOPRAZOLE 40 MG TABLET PO SCH ×2 (08:18→16:38)
[2019-06-15] MEDS: SENNOSIDES-DOCUSATE SODIUM 1 EACH TAB PO SCH ×2 (08:20→21:24)
[2019-06-15] MEDS: POLYETHYLENE GLYCOL 3350 17 GM POWD.PACK PO SCH (08:20)
[2019-06-15] MEDS: valACYclovir HCL 1,000 MG TABLET PO SCH ×2 (08:25→21:28)
[2019-06-15] MEDS: CIPROFLOXACIN HCL 500 MG TAB PO SCH (08:25)
--- NOTE | 2019-06-15 08:40 | CT ---
EXAMINATION TYPE: CT abdomen pelvis wo con DATE OF EXAM: 06/14/2019 COMPARISON: CT abdomen/pelvis 06/04/2019 HISTORY: Diverticulitis, abscess, possible fistula. CT DLP: 965.2 mGycm Automated exposure control for dose reduction was used. TECHNIQUE: Helical acquisition of images was performed from the lung bases through the pelvis withou t intravenous contrast. Oral contrast was given. FINDINGS: The study is limited due to lack of intravenous contrast. Imaged lung bases demonstrate small bilateral pleural effusions with passive atelectasis, smaller jacquelin n prior. Possible right middle lobe nodule (series 4 image 1) measuring 4 mm. Coarse pleural calcific ations present on the left. Within previously stated limitations, the liver, spleen, adrenal glands, and pancreas are within norm al noncontrasted appearance. Calcified gallstones dependently within the body and fundus; gallbladder is distended however in a lesser degree from comparison. Subcapsular collection surrounding the right kidney is heterogenous in attenuation compatible with ev olving subcapsular hematoma, grossly stable in size from comparison study. No renal calculi or hydron ephrosis. Decompressed urinary bladder with Espinoza catheter in situ. Uterus is present. Small volume p elvic fluid. Oral contrast is present within the stomach through distal ileum. Postsurgical changes along the grea ter curvature of the stomach. No dilated bowel, free air, or contrast extravasation. Redemonstrated i nflammatory change within the sigmoid colon adjacent to an area of multiple diverticula compatible wi th diverticulitis, lessened in severity from comparison study; no discrete fluid collection. Pericolo sagar inflammation obscures the fat plane between the urinary bladder and colon. No free air. Aortoiliac vascular calcifications without aneurysmal dilatation. Small, likely reactive external vaishnavi ac lymph nodes. Evidence of subcutaneous injections of the abdominal pannus. No osseous destructive lesion. IMPRESSION: 1. Redemonstrated sigmoid colonic diverticulitis with the degree of inflammation decreased from matthias rison study performed 06/04/2019. There is persistent obscuration of the fat plane between the inflame d colon and urinary bladder and again, colovesical fistula cannot be excluded. 2. Evolving right subcapsular and intraparenchymal renal hematoma, stable in size. 3. Smaller bilateral pleural effusions. 4. Cholelithiasis.
--- NOTE | 2019-06-15 10:29 | P.PN ---
Subjective Progress Note Date: 06/15/19 Principal diagnosis: Diverticulitis Patient had some diarrhea this morning. She went for CAT scan as follow-up for diverticulitis. CAT scan was reviewed. Some inflammation persists however the abscess previously seen is not seen at this time. No free air. Degree of inflammation improved. Patient did have some dry heaves after coughing. Describes some right upper quadrant pain at times. Lower abdominal pain seems improved. She is afebrile. Currently nothing by mouth. Objective - Vital Signs Vital signs: Vital Signs Temp 98.7 F 06/15/19 04:50 Pulse 83 06/15/19 04:50 Resp 18 06/15/19 04:50 BP 133/63 06/15/19 04:50 Pulse Ox 97 06/15/19 04:50 Intake & Output 06/14/19 06/15/19 06/15/19 18:59 06:59 18:59 Intake Total 2092 1881 Output Total 3050 1400 Balance -958 481 Weight 91.5 kg Intake: IV 540 840 Mvi, Adult No.4 with Vit 540 840 K 10 ml Trace (Conc-1Ml/ Dose) 1 ml Potassium Chloride 20 meq Calcium Gluconate 1 gm Magnesium Sulfate gm 2 gm Sodium Chloride 2.5MEQ/ml Vial 15 meq In Amino Acid 4.25 %-D10w+Lytes*E* 1,000 ml @ 70 mls/hr IV .BY D[facility]ATION [facility] Rx#: [id number] Intake, IV Titration 1041 Amount Mvi, Adult No.4 with Vit 1041 K 10 ml Trace (Conc-1Ml/ Dose) 1 ml Potassium Chloride 20 meq Calcium Gluconate 1 gm Magnesium Sulfate gm 2 gm Sodium Chloride 2.5MEQ/ml Vial 15 meq In Amino Acid 4.25 %-D10w+Lytes*E* 1,000 ml @ 70 mls/hr IV .BY D[facility]ATION [facility] Rx#: [id number] Oral 1250 Blood Product 302 Platelet Irr Pheresis 302 Acda1 Unit [id number] Output: Urine 3050 1400 Uretheral (Espinoza) 2000 1400 Other: Voiding Method Indwelling Catheter Indwelling Catheter # Voids 3 # Bowel Movements 1 - Exam Abdomen: Soft, mild right upper quadrant tenderness, mild lower abdominal tenderness, no rebound or guarding - Labs CBC & Chem 7: 06/14/19 06:54 06/14/19 06:54 Labs: Abnormal Lab Results - Last 24 Hours (Table) 06/14/19 06/14/19 06/14/19 Range/Units 11:49 18:07 23:52 POC Glucose (mg/dL) 146 H 145 H 158 H (75-99) mg/dL 06/15/19 Range/Units 06:01 POC Glucose (mg/dL) 146 H (75-99) mg/dL Assessment and Plan (1) Diverticulitis Narrative/Plan: Continue antibiotics for diverticulitis although improving. Advance diet if okay with oncology. Continue TPN for now. Current Visit: Yes Status: Acute Code(s): K57.92 - DVTRCLI OF INTEST, PART UNSP, W/O PERF OR ABSCESS W/O BLEED SNOMED Code(s): 048188324
--- NOTE | 2019-06-15 10:34 | P.PN ---
Subjective Progress Note Date: 06/15/19 The patient reports intermittent nausea and dry heaves since yesterday. Since this a.m. she is also been having loose stools. No overt fever or chills. No obvious bleeding. Objective - Vital Signs Vital signs: Vital Signs Temp 98.7 F 06/15/19 04:50 Pulse 83 06/15/19 04:50 Resp 18 06/15/19 04:50 BP 133/63 06/15/19 04:50 Pulse Ox 97 06/15/19 04:50 Intake & Output 06/14/19 06/15/19 06/15/19 18:59 06:59 18:59 Intake Total 2092 1881 Output Total 3050 1400 Balance -958 481 Weight 91.5 kg Intake: IV 540 840 Mvi, Adult No.4 with Vit 540 840 K 10 ml Trace (Conc-1Ml/ Dose) 1 ml Potassium Chloride 20 meq Calcium Gluconate 1 gm Magnesium Sulfate gm 2 gm Sodium Chloride 2.5MEQ/ml Vial 15 meq In Amino Acid 4.25 %-D10w+Lytes*E* 1,000 ml @ 70 mls/hr IV .BY [facility] Rx#: [id number] Intake, IV Titration 1041 Amount Mvi, Adult No.4 with Vit 1041 K 10 ml Trace (Conc-1Ml/ Dose) 1 ml Potassium Chloride 20 meq Calcium Gluconate 1 gm Magnesium Sulfate gm 2 gm Sodium Chloride 2.5MEQ/ml Vial 15 meq In Amino Acid 4.25 %-D10w+Lytes*E* 1,000 ml @ 70 mls/hr IV .BY D[facility] Rx#: [id number] Oral 1250 Blood Product 302 Platelet Irr Pheresis 302 Acda1 Unit [id number] Output: Urine 3050 1400 Uretheral (Espinoza) 2000 1400 Other: Voiding Method Indwelling Catheter Indwelling Catheter # Voids 3 # Bowel Movements 1 - Constitutional General appearance: Present: no acute distress - EENT Eyes: Present: EOMI ENT: Present: hearing grossly normal, normal oropharynx - Respiratory Respiratory: bilateral: CTA - Cardiovascular Rhythm: regular Heart sounds: normal: S1, S2 - Gastrointestinal General gastrointestinal: Present: normal bowel sounds, soft Localized gastrointestinal: tender: RUQ, LLQ - Musculoskeletal Musculoskeletal: Present: generalized weakness, strength equal bilaterally - Psychiatric Psychiatric: Present: A&O x's 3, appropriate affect - Labs CBC & Chem 7: 06/14/19 06:54 06/14/19 06:54 Labs: Abnormal Lab Results - Last 24 Hours (Table) 06/14/19 06/14/19 06/14/19 Range/Units 11:49 18:07 23:52 POC Glucose (mg/dL) 146 H 145 H 158 H (75-99) mg/dL 06/15/19 Range/Units 06:01 POC Glucose (mg/dL) 146 H (75-99) mg/dL Assessment and Plan (1) Diverticulitis Narrative/Plan: The patient had repeat computed tomography scan of the abdomen and pelvis done, which showed persistent inflammation in the sigmoid colon. There did appear to be significant improvement, but persistent colovesical fistula could not be ruled out. - Case discussed with surgery. Continue antibiotics per ID. - At this time I would definitely recommend not advancing her diet and continuing bowel rest is much as possible along with TPN support, given persistent inflammation in that area, as well as ongoing neutropenia. Current Visit: Yes Status: Acute Code(s): K57.92 - DVTRCLI OF INTEST, PART UNSP, W/O PERF OR ABSCESS W/O BLEED SNOMED Code(s): 652949535 (2) Abnormal CT scan, kidney Narrative/Plan: This appears to be due to subcapsular hemorrhage. Computed tomography scan shows stability Current Visit: Yes Status: Acute Code(s): R93.429 - ABNORMAL RADIOLOGIC FINDINGS ON DX IMAGING OF UNSP KIDNEY SNOMED Code(s): 489515908 (3) Pancytopenia Narrative/Plan: Labs pending from today. Continue supportive transfusions as needed Current Visit: Yes Status: Acute Priority: High Code(s): D61.818 - OTHER PANCYTOPENIA SNOMED Code(s): 620103824 (4) CLL (chronic lymphocytic leukemia) Narrative/Plan: The status post bendamustine and Rituxan. No evidence of tumor lysis. Continue to monitor labs to check for response. Current Visit: Yes Status: Chronic Priority: High Code(s): C91.90 - LYMPHOID LEUKEMIA, UNSPECIFIED NOT HAVING ACHIEVED REMISSION SNOMED Code(s): 58567010
[2019-06-15 11:02] LABS: Basophils % (A) 0 %; Eosinophils % (A) 2 %; Lymphocytes # (A) 0.9 k/uL (1.0-4.8); Lymphocytes % (A) 82 %; MCH 30.6 pg (25.0-35.0); MCHC 35.9 g/dL (31.0-37.0); MCV 85.1 fL (80.0-100.0); Mean Platelet Volume 8.2; Monocytes % (A) 2 %; Neutrophils % (A) 11 %; RBC 2.29 m/uL (3.80-5.40)
[2019-06-15 11:08] LABS: HCT 19.5 % (34.0-46.0)
[2019-06-15 11:09] LABS: Neutrophils # (A) 0.1 k/uL (1.3-7.7); Platelet Count 15 k/uL (150-450)
[2019-06-15 11:56] LABS: Glucose,Whole Blood 145 mg/dL (75-99)
[2019-06-15] MEDS: CHOLESTYRAMINE (WITH SUGAR) 4 GM PACKET PO SCH ×2 (12:23→16:33)
[2019-06-15] MEDS: AZTREONAM 2 GM in SODIUM CHLORIDE 0.9% 100 ML IVPB SCH (16:44)
[2019-06-15 17:32] LABS: Glucose,Whole Blood 142 mg/dL (75-99)
--- NOTE | 2019-06-15 20:50 | PN ---
PROGRESS NOTE DATE OF SERVICE: 06/15/2019 This 73-year-old woman was admitted with significant pancytopenia, leukopenia and thrombocytopenia, CLL with treatment. The patient also had Pseudomonas aeruginosa sepsis. The most recent abdominal and pelvis CAT scan recommended by Dr. Oliva showed sigmoid colonic diverticulitis with a degree of inflammation, decreased from the previous one and persistent obscuration of the fat planes as noted and evolving right subcapsular and intraparenchymal renal hematoma, which is stable in size and small bilateral pleural effusion and cholelithiasis also noted. PAST MEDICAL HISTORY: Reviewed. REVIEW OF SYSTEMS: CARDIOVASCULAR SYSTEM: No angina or palpitations. RESPIRATORY: As mentioned earlier. GI: No nausea. : No dysuria. NERVOUS SYSTEM: No numbness or weakness. CURRENT MEDICATIONS: 1. Tylenol 650 q.4 p.r.n. 2. Zyloprim 300 mg. 3. Norvasc 5 mg p.o. b.i.d. 4. Lipitor 40 mg q.h.s. 5. Tums 500 mg p.o. p.r.n. 6. Questran 4 mg p.o. t.i.d. 7. Cipro 500 mg p.o. b.i.d. 8. Lomotil 1 p.o. q.6. 10.Robitussin 200 mg q.6 p.r.n. 11.Mucinex 600 mg p.o. b.i.d. 12.Robitussin A-C 10 mg p.o. q.6h p.r.n. 13.Apresoline 25 mg. 14.Milk of magnesia. 15.Flagyl 500 mg p.o. q.i.d. 16.Narcan, Zofran, Protonix TPN. 17.Valtrex 1000 mg p.o. b.i.d. PHYSICAL EXAMINATION: Patient is alert, oriented x3. Pulse is 78, blood pressure 130/56 respiration 17, temperature 98.2, pulse ox 97% on room air. HEENT: Conjunctivae pale. Oral mucosa moist. NECK: No jugular venous distention. No lymph node enlargement. CARDIOVASCULAR: S1, S2. RESPIRATORY: Diminished breath sounds at the bases. Scattered rhonchi, no crackles. ABDOMEN: Soft, mild diffuse discomfort. No mass palpable. LEGS: No swelling. LABS: WBC ntd, hemoglobin is 7, platelets of 15. ASSESSMENT: 1. Severe pancytopenia, neutropenia with chronic lymphatic leukemia on chemotherapy. 2. Severe thrombocytopenia status multiple platelet transfusions. 3. Pseudomonas sepsis and neutropenic sepsis present on admission. 4. Acute hypoxic respiratory failure, multifactorial, present on admission. 5. Possible acute sigmoid diverticulitis in the CT scan. 6. Evolving right subcapsular and intraparenchymal renal hematoma, stable in size. 7. Cholelithiasis. 8. History of breast cancer. 9. History of GI stromal neoplasm. 10.History HSV, lips and mucositis. 11.Hypokalemia. 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 13.Hypertension. 14.Hyperlipidemia. 15.History of gait dysfunction. 16.History of degenerative joint disease. 17.History of sleep apnea. 18.Obesity, body mass index 41.1. 19.Remote history of nicotine dependence. 20.FULL CODE. RECOMMENDATION AND DISCUSSION: Recommend to continue current medications, continue symptomatic treatment. Otherwise, at this time, we will monitor the patient closely with Dr. Oliva. The patient still has significant thrombocytopenia. The patient also had abnormal findings on the CT scan. Advance the diet very cautiously and the antibiotics also continued. Further recommendations to follow. MMODL / IJN: [id number] / KARRIE
[2019-06-15] MEDS: ATORVASTATIN 40 MG TAB PO SCH (21:28)
--- NOTE | 2019-06-15 23:20 | PN ---
PROGRESS NOTE DATE OF SERVICE: 06/15/2019 REASON FOR FOLLOWUP VISIT: Pseudomonas bacteremia and diverticulitis. INTERVAL HISTORY: The patient is currently afebrile. The patient has been breathing comfortably; still recovering from dry hacking cough and some nausea. No vomiting. No worsening abdominal pain or diarrhea. PHYSICAL EXAMINATION: Blood pressure 133/63 with a pulse of 78, temperature 98.2, she is 97% on room air. General description is an elderly female lying in bed in no distress. Respiratory system: Unlabored breathing, clear to auscultation anteriorly. Heart S1, S2. Regular rate and rhythm. Abdomen soft. No tenderness. No distention. LABS: White count 1.0. DIAGNOSTIC IMPRESSION AND PLAN: Patient with Pseudomonas aeruginosa bacteremia and evidence of diverticulitis. Repeat CT yesterday shows improvement with concern for possible fistula. However, the patient has no drainage through her urethra or the Espinoza catheter, clinically doubt colovesical fistula. In view of the patient's nausea, could be related to taking antibiotic orally on an empty stomach as the patient is n.p.o. Hence, will switch her over to IV Azactam and Flagyl and monitor clinical course closely. Continue supportive care. MMODL / IJN: [id number] /
[2019-06-16] MEDS: INSULIN ASPART (NovoLOG) 100 UNIT/ML VIAL SQ SCH ×4 (00:08→17:55)
[2019-06-16 00:13] LABS: Glucose,Whole Blood 152 mg/dL (75-99)
[2019-06-16] MEDS: AZTREONAM 2 GM in SODIUM CHLORIDE 0.9% 100 ML IVPB SCH ×4 (02:17→23:39)
[2019-06-16] MEDS: ONDANSETRON 4 MG/2 ML VIAL IVP PRN (05:29)
[2019-06-16 05:51] LABS: Glucose,Whole Blood 149 mg/dL (75-99)
[2019-06-16] MEDS: SODIUM CHLORIDE 0.9% 500 ML 500 ML IV SCH (06:06)
[2019-06-16] MEDS: 1: MVI, ADULT NO.4 WITH VIT K 10 ML, TRACE (CONC-1ML/DOSE) 1 ML, POTASSIUM CHLORIDE 20 M IV SCH ×21 (06:10→21:14)
[2019-06-16 07:10] LABS: Basophils % (A) 0 %; Eosinophils % (A) 1 %; HGB 7.1 gm/dL (11.4-16.0); Lymphocytes # (A) 0.9 k/uL (1.0-4.8); Lymphocytes % (A) 87 %; MCH 30.6 pg (25.0-35.0); MCHC 35.5 g/dL (31.0-37.0); MCV 86.1 fL (80.0-100.0); Mean Platelet Volume 8.4; Monocytes % (A) 1 %; Neutrophils % (A) 8 %; RBC 2.31 m/uL (3.80-5.40); RDW 12.8 % (11.5-15.5)
[2019-06-16 07:16] LABS: HCT 19.9 % (34.0-46.0); Platelet Count 12 k/uL (150-450)
[2019-06-16 07:17] LABS: Neutrophils # (A) 0.1 k/uL (1.3-7.7)
[2019-06-16 07:52] LABS: African American GFR (CKD) >90 (>60 ml/min/1.73 sqM); Anion Gap 8 mmol/L; Blood Urea Nitrogen 24 mg/dL (7-17); Carbon Dioxide 22 mmol/L (22-30); Chloride 108 mmol/L (98-107); Glucose 143 mg/dL (74-99); Magnesium 2.1 mg/dL (1.6-2.3); Phosphorus 4.1 mg/dL (2.5-4.5); Potassium 4.3 mmol/L (3.5-5.1); Sodium 138 mmol/L (137-145); Triglycerides 98 mg/dL (<150)
--- NOTE | 2019-06-16 09:29 | P.PN ---
Subjective Progress Note Date: 06/16/19 Principal diagnosis: Diverticulitis Patient doing better today. Her Espinoza catheter was removed yesterday. She has been able to void. Lower abdominal pain mild. No nausea or vomiting. No dry heaves. No diarrhea. T-max 99.3. Labs noted. Objective - Vital Signs Vital signs: Vital Signs Temp 97.8 F 06/16/19 05:00 Pulse 80 06/16/19 05:00 Resp 16 06/16/19 05:00 BP 133/65 06/16/19 05:00 Pulse Ox 98 06/16/19 05:00 Intake & Output 06/15/19 06/16/19 06/16/19 18:59 06:59 18:59 Intake Total 3071 115 Output Total 1452 Balance 1619 115 Weight 91.5 kg 91.6 kg Intake: IV 680 115 0.9 115 Mvi, Adult No.4 with Vit 680 K 10 ml Trace (Conc-1Ml/ Dose) 1 ml Potassium Chloride 20 meq Calcium Gluconate 1 gm Magnesium Sulfate gm 2 gm Sodium Chloride 2.5MEQ/ml Vial 15 meq In Amino Acid 4.25 %-D10w+Lytes*E* 1,000 ml @ 70 mls/hr IV .BY D[facility]ATION [facility] Rx#: [id number] Intake, IV Titration 1041 Amount Mvi, Adult No.4 with Vit 1041 K 10 ml Trace (Conc-1Ml/ Dose) 1 ml Potassium Chloride 20 meq Calcium Gluconate 1 gm Magnesium Sulfate gm 2 gm Sodium Chloride 2.5MEQ/ml Vial 15 meq In Amino Acid 4.25 %-D10w+Lytes*E* 1,000 ml @ 70 mls/hr IV .BY D[facility]ATION [facility] Rx#: [id number] Oral 1350 Output: Urine 1300 Uretheral (Espinoza) 1000 Stool 152 Other: Voiding Method Indwelling Catheter Bedside Commode Diaper Incontinent # Voids 3 1 - Exam Abdomen: Soft, nondistended, mild lower abdominal tenderness - Labs CBC & Chem 7: 06/16/19 06:40 06/16/19 06:40 Labs: Abnormal Lab Results - Last 24 Hours (Table) 06/15/19 06/15/19 06/15/19 Range/Units 10:38 11:49 17:30 WBC 1.0 L* (3.8-10.6) k/uL RBC 2.29 L (3.80-5.40) m/uL Hgb 7.0 L (11.4-16.0) gm/dL Hct 19.5 L* (34.0-46.0) % Plt Count 15 L* (150-450) k/uL Neutrophils # 0.1 L* (1.3-7.7) k/uL Lymphocytes # 0.9 L (1.0-4.8) k/uL Chloride (98-107) mmol/L BUN (7-17) mg/dL Creatinine (0.52-1.04) mg/dL Glucose (74-99) mg/dL POC Glucose (mg/dL) 145 H 142 H (75-99) mg/dL Calcium (8.4-10.2) mg/dL 06/16/19 06/16/19 06/16/19 Range/Units 00:03 05:49 06:40 WBC (3.8-10.6) k/uL RBC (3.80-5.40) m/uL Hgb (11.4-16.0) gm/dL Hct (34.0-46.0) % Plt Count (150-450) k/uL Neutrophils # (1.3-7.7) k/uL Lymphocytes # (1.0-4.8) k/uL Chloride 108 H (98-107) mmol/L BUN 24 H (7-17) mg/dL Creatinine 0.43 L (0.52-1.04) mg/dL Glucose 143 H (74-99) mg/dL POC Glucose (mg/dL) 152 H 149 H (75-99) mg/dL Calcium 8.0 L (8.4-10.2) mg/dL 06/16/19 Range/Units 06:40 WBC 1.0 L* (3.8-10.6) k/uL RBC 2.31 L (3.80-5.40) m/uL Hgb 7.1 L (11.4-16.0) gm/dL Hct 19.9 L* (34.0-46.0) % Plt Count 12 L* (150-450) k/uL Neutrophils # 0.1 L* (1.3-7.7) k/uL Lymphocytes # 0.9 L (1.0-4.8) k/uL Chloride (98-107) mmol/L BUN (7-17) mg/dL Creatinine (0.52-1.04) mg/dL Glucose (74-99) mg/dL POC Glucose (mg/dL) (75-99) mg/dL Calcium (8.4-10.2) mg/dL Assessment and Plan (1) Diverticulitis Narrative/Plan: Continue nothing by mouth except for ice chips and popsicles. Continue TPN. Continue antibiotics. Overall patient improving. Current Visit: Yes Status: Acute Code(s): K57.92 - DVTRCLI OF INTEST, PART U NSP, W/O PERF OR ABSCESS W/O BLEED SNOMED Code(s): 307694175
[2019-06-16] MEDS: PANTOPRAZOLE 40 MG TABLET PO SCH ×2 (10:04→17:48)
[2019-06-16] MEDS: ALLOPURINOL 300 MG TAB PO SCH (10:04)
[2019-06-16] MEDS: hydrALAZINE HCL 25 MG TAB PO PRN (10:04)
[2019-06-16] MEDS: amLODIPine 5 MG TAB PO SCH ×2 (10:04→21:11)
[2019-06-16] MEDS: traMADol 50 MG TAB PO PRN ×2 (10:04→21:34)
[2019-06-16] MEDS: guaiFENesin 600 MG TABLET.ER PO SCH ×2 (10:04→21:11)
[2019-06-16] MEDS: DIPHENOX-ATROP 2.5-0.025 MG 1 EACH TAB PO PRN (10:04)
[2019-06-16] MEDS: FILGRASTIM-SNDZ 480 MCG/0.8 ML SYRINGE SQ SCH (10:05)
[2019-06-16] MEDS: POLYETHYLENE GLYCOL 3350 17 GM POWD.PACK PO SCH (10:05)
[2019-06-16] MEDS: SENNOSIDES-DOCUSATE SODIUM 1 EACH TAB PO SCH ×2 (10:05→21:11)
[2019-06-16] MEDS: valACYclovir HCL 1,000 MG TABLET PO SCH ×2 (10:05→21:11)
[2019-06-16] MEDS: FAT EMULSION 20% 250 ML IV SCH (10:08)
[2019-06-16] MEDS: metroNIDAZOLE-NS PMX 500 MG in SALINE 1 100ML.BAG IVPB SCH ×3 (11:00→17:48)
[2019-06-16 11:29] LABS: Glucose,Whole Blood 146 mg/dL (75-99)
--- NOTE | 2019-06-16 12:40 | P.PN ---
Subjective Progress Note Date: 06/16/19 The patient denies any new complaints today. Generalized weakness persists but she thinks she feels stronger. No fever/chills. She does have some nausea, which appears to be related to upper airway secretions, when she is moved around. She still having loose stools of these have somewhat diminished. Objective - Vital Signs Vital signs: Vital Signs Temp 97.8 F 06/16/19 05:00 Pulse 80 06/16/19 05:00 Resp 16 06/16/19 05:00 BP 133/65 06/16/19 05:00 Pulse Ox 98 06/16/19 05:00 Intake & Output 06/15/19 06/16/19 06/16/19 18:59 06:59 18:59 Intake Total 3071 115 Output Total 1452 Balance 1619 115 Weight 91.5 kg 91.6 kg Intake: IV 680 115 0.9 115 Mvi, Adult No.4 with Vit 680 K 10 ml Trace (Conc-1Ml/ Dose) 1 ml Potassium Chloride 20 meq Calcium Gluconate 1 gm Magnesium Sulfate gm 2 gm Sodium Chloride 2.5MEQ/ml Vial 15 meq In Amino Acid 4.25 %-D10w+Lytes*E* 1,000 ml @ 70 mls/hr IV .BY DURATION [facility] Rx#: [id number] Intake, IV Titration 1041 Amount Mvi, Adult No.4 with Vit 1041 K 10 ml Trace (Conc-1Ml/ Dose) 1 ml Potassium Chloride 20 meq Calcium Gluconate 1 gm Magnesium Sulfate gm 2 gm Sodium Chloride 2.5MEQ/ml Vial 15 meq In Amino Acid 4.25 %-D10w+Lytes*E* 1,000 ml @ 70 mls/hr IV .BY DURATION [facility] Rx#: [id number] Oral 1350 Output: Urine 1300 Uretheral (Espinoza) 1000 Stool 152 Other: Voiding Method Indwelling Catheter Bedside Commode Diaper Incontinent # Voids 3 1 - Constitutional General appearance: Present: no acute distress - EENT Eyes: Present: EOMI ENT: Present: hearing grossly normal, normal oropharynx - Respiratory Respiratory: bilateral: diminished - Cardiovascular Rhythm: regular Heart sounds: normal: S1, S2 - Gastrointestinal General gastrointestinal: Present: normal bowel sounds, soft - Integumentary Integumentary: Present: normal - Neurologic Neurologic: Present: CNII-XII intact - Musculoskeletal Musculoskeletal: Present: generalized weakness, strength equal bilaterally - Psychiatric Psychiatric: Present: A&O x's 3, appropriate affect - Labs CBC & Chem 7: 06/16/19 06:40 06/16/19 06:40 Labs: Abnormal Lab Results - Last 24 Hours (Table) 06/15/19 06/16/19 06/16/19 Range/Units 17:30 00:03 05:49 WBC (3.8-10.6) k/uL RBC (3.80-5.40) m/uL Hgb (11.4-16.0) gm/dL Hct (34.0-46.0) % Plt Count (150-450) k/uL Neutrophils # (1.3-7.7) k/uL Lymphocytes # (1.0-4.8) k/uL Chloride (98-107) mmol/L BUN (7-17) mg/dL Creatinine (0.52-1.04) mg/dL Glucose (74-99) mg/dL POC Glucose (mg/dL) 142 H 152 H 149 H (75-99) mg/dL Calcium (8.4-10.2) mg/dL 06/16/19 06/16/19 06/16/19 Range/Units 06:40 06:40 11:25 WBC 1.0 L* (3.8-10.6) k/uL RBC 2.31 L (3.80-5.40) m/uL Hgb 7.1 L (11.4-16.0) gm/dL Hct 19.9 L* (34.0-46.0) % Plt Count 12 L* (150-450) k/uL Neutrophils # 0.1 L* (1.3-7.7) k/uL Lymphocytes # 0.9 L (1.0-4.8) k/uL Chloride 108 H (98-107) mmol/L BUN 24 H (7-17) mg/dL Creatinine 0.43 L (0.52-1.04) mg/dL Glucose 143 H (74-99) mg/dL POC Glucose (mg/dL) 146 H (75-99) mg/dL Calcium 8.0 L (8.4-10.2) mg/dL Assessment and Plan (1) Diverticulitis Narrative/Plan: The patient's abdominal exam is fairly benign today. She is tolerating sips well, and would like to drink more water if possible. Diarrhea is somewhat improved but still persistent. Therefore for now I would continue with the current that resection and TPN. Continue IV antibiotics. Computed tomography scan appearance improved as noted previously Current Visit: Yes Status: Acute Code(s): K57.92 - DVTRCLI OF INTEST, PART UNSP, W/O PERF OR ABSCESS W/O BLEED SNOMED Code(s): 481397408 (2) Abnormal CT scan, kidney Current Visit: Yes Status: Acute Code(s): R93.429 - ABNORMAL RADIOLOGIC FINDINGS ON DX IMAGING OF UNSP KIDNEY SNOMED Code(s): 117466416 (3) Pancytopenia Narrative/Plan: This persists, without much change in pattern. Counts are in a safe range day and transfusion has not required. Continue monitoring with transfusions for support Current Visit: Yes Status: Acute Priority: High Code(s): D61.818 - OTHER PANCYTOPENIA SNOMED Code(s): 405454178 (4) CLL (chronic lymphocytic leukemia) Narrative/Plan: No evidence of response to bendamustine and Rituxan so far. The patient is around day 10 today. If no response is noted in the next 4-5 days, bone marrow would need to be repeated for Current Visit: Yes Status: Chronic Priority: High Code(s): C91.90 - LYMPHOID LEUKEMIA, UNSPECIFIED NOT HAVING ACHIEVED REMISSION SNOMED Code(s): 93475435 (5) Physical debility Narrative/Plan: The patient has become quite debilitated due to a prolonged hospitalization and inactivity as well as her multiple medical issues. She was not felt to be a candidate for inpatient rehab. ECF is being considered. However monitoring of her blood and transfusions would be logistically very complicated in an ECF. In fact her sister has checked with [facility] who stated that there would not be able to accommodate patients with regular transfusion needs. In addition continuing TPN in an ECF setting would also be problematic because of coverage issues. Therefore it would be much more preferable the patient can go home or to inpatient rehab, assuming that she is able to improve her performance status. This was discussed in detail with her sister. According to nursing, the patient has been quite reluctant to participate in physical therapy and increased activity. It was emphasized to the patient, that it is of utmost importance that she tries to increase her activity and performance status as much as possible. She expressed understanding and agreement. She has been sitting up in the chair more, and we'll also try to start ambulating with walker and assistance outside the room. She is now using the bedside commode, and fully has been discontinued. Current Visit: Yes Status: Acute Priority: High Code(s): R53.81 - OTHER MALAISE SNOMED Code(s): 45333991
[2019-06-16] MEDS: guaiFENesin-Coden 100-10MG/5ML 10 ML CUP PO PRN (16:49)
--- NOTE | 2019-06-16 17:50 | PN ---
PROGRESS NOTE DATE OF SERVICE: This is 06/16/2019 This is a 73-year-old woman who was admitted with severe pancytopenia, leukopenia and significant thrombocytopenia, CLL on chemotherapy, also multiple other complications. Also patient had Pseudomonas sepsis. The patient also had diverticular abscess in the CT scan. The patient also had significant evolving right subcapsular hematoma as well as renal intraparenchymal hematoma, which is thought to be rather stable in the most recent CT scan of the abdomen per Dr. Olvia. Dr. Oliva would like the patient to be on n.p.o. except medications and ice chips and popsicles. The patient is on TPN at this time. The patient is being closely monitored at this time. PAST MEDICAL HISTORY: Reviewed. REVIEW OF SYSTEMS: CARDIOVASCULAR SYSTEM: No angina. GI: As mentioned earlier. : No dysuria. NERVOUS SYSTEM: Generalized weakness. CURRENT MEDICATIONS: 1. Tylenol p.r.n. 2. Zyloprim 300 mg. 3. Norvasc 5 mg p.o. daily. 4. Lipitor 40 mg q.h.s. 5. Aztreonam 2 g IV q.8h. 6. Lomotil. 7. TPN. 8. Zarxio. 9. Robitussin. 10.Mucinex. 11.Apresoline. 12.NovoLog. 13.Milk of magnesia. 14.P.r.n. medications. PHYSICAL EXAM: Patient is alert, oriented x3. Pulse is 88, blood pressure 130/60, respiration is 17, temperature 97.6, pulse ox 98% on room air. HEENT: Conjunctivae normal. Oral mucosa moist. NECK: No jugular venous distention. No lymph node enlargement. CARDIOVASCULAR: S1, S2. RESPIRATORY: Diminished breath sounds at the bases. A few scattered rhonchi and crackles. ABDOMEN: Soft. Mild diffuse discomfort. No guarding, no rigidity. No mass palpable. No ascites. LEGS: No edema, no swelling. NERVOUS SYSTEM: No focal deficits. LABS: WBC 1, hemoglobin 9.9, platelets are 12. ASSESSMENT: 1. Severe pancytopenia, neutropenia and thrombocytopenia secondary to chronic lymphoid leukemia on chemotherapy. 2. Severe thrombocytopenia requiring multiple platelet transfusions. 3. Pseudomonas sepsis with neutropenic sepsis, present on admission. 4. Acute hypoxic respiratory failure, multifactorial, present on admission. 5. Possible acute sigmoid diverticulitis, diverticular abscess in the CT scan. 6. Evolving right subcapsular and intraparenchymal renal hematoma, stable in size. 7. Cholelithiasis. 8. History of breast cancer. 9. History of gastrointestinal stromal neoplasm. 10.History HSV, lips and mucositis. 11.Hypokalemia. 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 13.Hypertension. 14.Hyperlipidemia. 15.History of gait dysfunction. 16.History of degenerative joint disease. 17.History of sleep apnea. 18.Obesity with body mass index of 41.1. 19.Remote history of nicotine dependence. 20.FULL CODE. RECOMMENDATIONS AND DISCUSSION: I recommend to continue current medications, management and symptomatic treatment. Otherwise, at this time I recommend to keep the patient n.p.o. per Dr. Oliva's recommendations because of multiple findings on the CT scan as mentioned earlier. I would recommend monitor closely. The platelets and white count are significantly low still. We will continue to monitor. Overall prognosis guarded. Once the patient is improved, PT and OT evaluation and possible ECF rehab. Guarded prognosis. Further recommendations to follow. MMODL / IJN: [id number] /
[2019-06-16 17:54] LABS: Glucose,Whole Blood 141 mg/dL (75-99)
[2019-06-16] MEDS: ATORVASTATIN 40 MG TAB PO SCH (21:11)
[2019-06-17 00:22] LABS: Glucose,Whole Blood 152 mg/dL (75-99)
[2019-06-17] MEDS: metroNIDAZOLE-NS PMX 500 MG in SALINE 1 100ML.BAG IVPB SCH ×3 (00:50→18:14)
[2019-06-17] MEDS: INSULIN ASPART (NovoLOG) 100 UNIT/ML VIAL SQ SCH ×4 (00:52→16:52)
--- NOTE | 2019-06-17 02:59 | PN ---
PROGRESS NOTE DATE OF SERVICE: 06/16/2019 REASON FOR FOLLOW UP: Diverticulitis and Pseudomonas bacteremia. INTERVAL HISTORY: The patient is currently afebrile. She has been breathing better, breathing comfortably. Denies having any chest pain or any cough. No nausea, no vomiting. Abdominal pain has improved and no diarrhea. PHYSICAL EXAMINATION: Blood pressure 130/67 with a pulse of 88, temperature of 97.6. She is 98% on room air. General description is an elderly female up in the chair in no distress. Respiratory system: Unlabored breathing, clear to auscultation anteriorly. Heart S1, S2. Regular rate and rhythm. Abdomen soft, no tenderness. LABS: Hemoglobin 7.1, white count 1. BUN of 24, creatinine 0.43. DIAGNOSTIC IMPRESSION AND PLAN: Patient with acute diverticulitis complicated this patient did have a febrile neutropenia and Pseudomonas bacteremia, currently on IV Azactam and Flagyl. The patient is currently on TPN. Once oral activity increases, may switch to oral antibiotic for short course. Continue supportive care. MMODL / IJN: [id number] /
[2019-06-17 06:10] LABS: Glucose,Whole Blood 143 mg/dL (75-99)
[2019-06-17] MEDS: SODIUM CHLORIDE 0.9% 500 ML 500 ML IV SCH (06:16)
[2019-06-17] MEDS: ONDANSETRON 4 MG/2 ML VIAL IVP PRN (06:27)
[2019-06-17 08:06] LABS: African American GFR (CKD) >90 (>60 ml/min/1.73 sqM); Anion Gap 8 mmol/L; Blood Urea Nitrogen 24 mg/dL (7-17); Calcium 8.2 mg/dL (8.4-10.2); Carbon Dioxide 21 mmol/L (22-30); Chloride 109 mmol/L (98-107); Glucose 137 mg/dL (74-99); Magnesium 2.2 mg/dL (1.6-2.3); Phosphorus 4.1 mg/dL (2.5-4.5); Potassium 4.4 mmol/L (3.5-5.1); Sodium 138 mmol/L (137-145)
[2019-06-17 08:24] LABS: Basophils % (A) 0 %; Eosinophils % (A) 0 %; Lymphocytes # (A) 0.6 k/uL (1.0-4.8); Lymphocytes % (A) 79 %; MCH 30.1 pg (25.0-35.0); MCV 86.1 fL (80.0-100.0); Mean Platelet Volume 8.3; Monocytes % (A) 5 %; Neutrophils # (A) 0.1 k/uL (1.3-7.7); Neutrophils % (A) 14 %; RBC 2.15 m/uL (3.80-5.40); RDW 12.5 % (11.5-15.5)
[2019-06-17 08:36] LABS: HCT 18.5 % (34.0-46.0); HGB 6.5 gm/dL (11.4-16.0); Platelet Count 5 k/uL (150-450); WBC 0.8 k/uL (3.8-10.6)
[2019-06-17] MEDS: guaiFENesin-Coden 100-10MG/5ML 10 ML CUP PO PRN ×2 (08:49→17:07)
[2019-06-17] MEDS: ALLOPURINOL 300 MG TAB PO SCH (08:49)
[2019-06-17] MEDS: CALCIUM CARBONATE 500 MG CHEWABLE PO PRN (08:49)
[2019-06-17] MEDS: amLODIPine 5 MG TAB PO SCH ×2 (08:50→21:08)
[2019-06-17] MEDS: guaiFENesin 600 MG TABLET.ER PO SCH ×2 (08:50→21:08)
[2019-06-17] MEDS: FILGRASTIM-SNDZ 480 MCG/0.8 ML SYRINGE SQ SCH (08:50)
[2019-06-17] MEDS: AZTREONAM 2 GM in SODIUM CHLORIDE 0.9% 100 ML IVPB SCH ×3 (08:50→23:51)
[2019-06-17] MEDS: hydrALAZINE HCL 25 MG TAB PO PRN (08:50)
[2019-06-17] MEDS: DIPHENOX-ATROP 2.5-0.025 MG 1 EACH TAB PO PRN (08:50)
[2019-06-17] MEDS: PANTOPRAZOLE 40 MG TABLET PO SCH ×2 (08:50→17:07)
[2019-06-17] MEDS ORDERED: POLYETHYLENE GLYCOL 3350 17 GM POWD.PACK PO PRN (08:56)
[2019-06-17] MEDS: valACYclovir HCL 1,000 MG TABLET PO SCH ×2 (10:00→21:08)
--- NOTE | 2019-06-17 11:02 | XR ---
EXAMINATION TYPE: XR chest 1V portable DATE OF EXAM: 06/17/2019 COMPARISON: 06/09/2019 HISTORY: Immunocompromised. Congestive heart failure. Cough. TECHNIQUE: Single frontal view of the chest is obtained. FINDINGS: Right perihilar, right upper lung, and left costophrenic angle patchy opacity is seen with the right upper lobe opacity stable in the 2 other opacities new. No sizable pleural effusion or pne umothorax. Right breast surgical clips are noted. Left-sided Mediport is unchanged. Diffuse osseous d emineralization is seen. IMPRESSION: Right upper lobe opacity is stable with new perihilar and left costophrenic angle opacit ies. Multifocal pneumonia is likely. Follow up to resolution is recommended.
[2019-06-17 11:34] LABS: Glucose,Whole Blood 131 mg/dL (75-99)
--- NOTE | 2019-06-17 11:57 | P.PN ---
<Ghazal Mcintosh Maya - Last Filed: 06/17/19 11:50> Subjective Progress Note Date: 06/17/19 CHIEF COMPLAINT: Diverticulitis HISTORY OF PRESENT ILLNESS: Patient examined at the bedside this morning. Patient reports feeling frustrated due to lab results this morning. WBC 0.8. Hemoglobin 6.5. Platelet count 5.0. She is to receive 1 unit RBC today and also platelet transfusion. Reports mild right upper quadrant pain. Denies nausea or vomiting. Denies diarrhea. Tolerating ice chips and popsicles. Reports she does not have an appetite for more food right now. TPN infusing. PHYSICAL EXAM: VITAL SIGNS: Reviewed. GENERAL: Well-developed in no acute distress. HEENT: No sclera icterus. Extraocular movements grossly intact. Moist buccal mucosa. Head is atraumatic, normocephalic. ABDOMEN: Soft. Nondistended. Mild tenderness with palpation to right upper quadrant. No peritoneal signs. NEUROLOGIC: Alert and oriented. Cranial nerves II through XII grossly intact. ASSESSMENT: 1. Acute diverticulitis 2. Pancytopenia 3. History of breast cancer and chronic lymphocytic leukemia PLAN: 1. Continue antibiotics. Infectious disease following 2. Continue TPN for nutrition. Continue ice chips and popsicles only for now 3. Transfusions per oncology 4. No surgical intervention recommended. Continue conservative measures. Nurse practitioner note has been reviewed by physician. Signing provider agrees with the documented findings, assessment, and plan of care. Objective - Vital Signs Vital signs: Vital Signs Temp 99.1 F 06/17/19 04:49 Pulse 81 06/17/19 04:49 Resp 17 06/17/19 07:30 BP 139/65 06/17/19 04:49 Pulse Ox 98 06/17/19 04:49 Intake & Output 06/16/19 06/17/19 06/17/19 18:59 06:59 18:59 Intake Total 1195 3619 Output Total 500 Balance 695 3619 Weight 93.5 kg Intake: IV 895 960 Fat Emulsion 20% 250 ml @ 125 20.833 mls/hr IV MoWeFr [facility] Rx#:[id number] Mvi, Adult No.4 with Vit 770 560 K 10 ml Trace (Conc-1Ml/ Dose) 1 ml Potassium Chloride 20 meq Calcium Gluconate 1 gm Magnesium Sulfate gm 2 gm Sodium Chloride 2.5MEQ/ml Vial 15 meq In Amino Acid 4.25 %-D10w+Lytes*E* 1,000 ml @ 70 mls/hr IV .BY DURATION [facility] Rx#: [id number] Sodium Chloride 0.9% 500 400 ml 500 ml @ 20 mls/hr IV .Q24H [facility] Rx#:[id number] Intake, IV Titration 200 2069 Amount Aztreonam 2 gm In Sodium 100 Chloride 0.9% 100 ml @ 100 mls/hr IVPB Q8HR [facility] Rx#:[id number] Mvi, Adult No.4 with Vit 1041 K 10 ml Trace (Conc-1Ml/ Dose) 1 ml Potassium Chloride 20 meq Calcium Gluconate 1 gm Magnesium Sulfate gm 2 gm Sodium Chloride 2.5MEQ/ml Vial 15 meq In Amino Acid 4.25 %-D10w+Lytes*E* 1,000 ml @ 70 mls/hr IV .BY DURATION [facility] Rx#: [id number] Potassium Chloride 20 meq 1028 Calcium Gluconate 1 gm Magnesium Sulfate gm 1 gm Sodium Chloride 2.5MEQ/ ml Vial 15 meq In Amino Acid 4.25%-D10w+Lytes*E* 1,000 ml @ 70 mls/hr IV . BY DURATION [facility] Rx#: [id number] metroNIDAZOLE-NS PMX 500 100 mg In Saline 1 100ml.bag @ 100 mls/hr IVPB Q8HR [facility] Rx#:[id number] Oral 100 590 Output: Urine 350 Stool 150 Other: Voiding Method Bedside Commode Bedside Commode Bedside Commode Diaper Diaper Diaper Incontinent Incontinent Incontinent # Voids 1 - Labs CBC & Chem 7: 06/17/19 07:27 06/17/19 07:27 Labs: Abnormal Lab Results - Last 24 Hours (Table) 06/16/19 06/17/19 06/17/19 Range/Units 17:53 00:20 06:07 WBC (3.8-10.6) k/uL RBC (3.80-5.40) m/uL Hgb (11.4-16.0) gm/dL Hct (34.0-46.0) % Plt Count (150-450) k/uL Neutrophils # (1.3-7.7) k/uL Lymphocytes # (1.0-4.8) k/uL Chloride (98-107) mmol/L Carbon Dioxide (22-30) mmol/L BUN (7-17) mg/dL Creatinine (0.52-1.04) mg/dL Glucose (74-99) mg/dL POC Glucose (mg/dL) 141 H 152 H 143 H (75-99) mg/dL Calcium (8.4-10.2) mg/dL Crossmatch 06/17/19 06/17/19 06/17/19 Range/Units 07:27 07:27 09:40 WBC 0.8 L* (3.8-10.6) k/uL RBC 2.15 L (3.80-5.40) m/uL Hgb 6.5 L* (11.4-16.0) gm/dL Hct 18.5 L* (34.0-46.0) % Plt Count 5 L* D (150-450) k/uL Neutrophils # 0.1 L* (1.3-7.7) k/uL Lymphocytes # 0.6 L (1.0-4.8) k/uL Chloride 109 H (98-107) mmol/L Carbon Dioxide 21 L (22-30) mmol/L BUN 24 H (7-17) mg/dL Creatinine 0.41 L (0.52-1.04) mg/dL Glucose 137 H (74-99) mg/dL POC Glucose (mg/dL) (75-99) mg/dL Calcium 8.2 L (8.4-10.2) mg/dL Crossmatch See Detail 06/17/19 Range/Units 11:33 WBC (3.8-10.6) k/uL RBC (3.80-5.40) m/uL Hgb (11.4-16.0) gm/dL Hct (34.0-46.0) % Plt Count (150-450) k/uL Neutrophils # (1.3-7.7) k/uL Lymphocytes # (1.0-4.8) k/uL Chloride (98-107) mmol/L Carbon Dioxide (22-30) mmol/L BUN (7-17) mg/dL Creatinine (0.52-1.04) mg/dL Glucose (74-99) mg/dL POC Glucose (mg/dL) 131 H (75-99) mg/dL Calcium (8.4-10.2) mg/dL Crossmatch <Nestor James - Last Filed: 06/17/19 13:46> Subjective As above. Patient's diverticulitis seems improved. Now having more right upper quadrant abdominal pain with coughing. Lower abdominal pain is improved. CAT scan findings improved. Continue minimal oral intake as requested by oncology. Today's CBC does show pancytopenia. Continue with plans for transfusion. We'll follow. Objective - Vital Signs Vital signs: Vital Signs Temp 99.3 F 06/17/19 13:17 Pulse 81 06/17/19 13:17 Resp 16 06/17/19 13:17 BP 129/62 06/17/19 13:17 Pulse Ox 97 06/17/19 13:17 Intake & Output 06/16/19 06/17/19 06/17/19 18:59 06:59 18:59 Intake Total 1195 3619 0 Output Total 500 Balance 695 3619 0 Weight 93.5 kg Intake: IV 895 960 Fat Emulsion 20% 250 ml @ 125 20.833 mls/hr IV MoWeFr [facility] Rx#:[id number] Mvi, Adult No.4 with Vit 770 560 K 10 ml Trace (Conc-1Ml/ Dose) 1 ml Potassium Chloride 20 meq Calcium Gluconate 1 gm Magnesium Sulfate gm 2 gm Sodium Chloride 2.5MEQ/ml Vial 15 meq In Amino Acid 4.25 %-D10w+Lytes*E* 1,000 ml @ 70 mls/hr IV .BY DURATION [facility] Rx#: [id number] Sodium Chloride 0.9% 500 400 ml 500 ml @ 20 mls/hr IV .Q24H [facility] Rx#:[id number] Intake, IV Titration 200 2069 Amount Aztreonam 2 gm In Sodium 100 Chloride 0.9% 100 ml @ 100 mls/hr IVPB Q8HR [facility] Rx#:[id number] Mvi, Adult No.4 with Vit 1041 K 10 ml Trace (Conc-1Ml/ Dose) 1 ml Potassium Chloride 20 meq Calcium Gluconate 1 gm Magnesium Sulfate gm 2 gm Sodium Chloride 2.5MEQ/ml Vial 15 meq In Amino Acid 4.25 %-D10w+Lytes*E* 1,000 ml @ 70 mls/hr IV .BY DURATION [facility] Rx#: [id number] Potassium Chloride 20 meq 1028 Calcium Gluconate 1 gm Magnesium Sulfate gm 1 gm Sodium Chloride 2.5MEQ/ ml Vial 15 meq In Amino Acid 4.25%-D10w+Lytes*E* 1,000 ml @ 70 mls/hr IV . BY DURATION [facility] Rx#: [id number] metroNIDAZOLE-NS PMX 500 100 mg In Saline 1 100ml.bag @ 100 mls/hr IVPB Q8HR [facility] Rx#:[id number] Oral 100 590 Blood Product 0 Platelet Irr Pheresis 2 0 Acda Unit [id number] Output: Urine 350 Stool 150 Other: Voiding Method Bedside Commode Bedside Commode Bedside Commode Diaper Diaper Diaper Incontinent Incontinent Incontinent # Voids 1 - Labs CBC & Chem 7: 06/17/19 07:27 06/17/19 07:27 Labs: Abnormal Lab Results - Last 24 Hours (Table) 06/16/19 06/17/19 06/17/19 Range/Units 17:53 00:20 06:07 WBC (3.8-10.6) k/uL RBC (3.80-5.40) m/uL Hgb (11.4-16.0) gm/dL Hct (34.0-46.0) % Plt Count (150-450) k/uL Neutrophils # (1.3-7.7) k/uL Lymphocytes # (1.0-4.8) k/uL Chloride (98-107) mmol/L Carbon Dioxide (22-30) mmol/L BUN (7-17) mg/dL Creatinine (0.52-1.04) mg/dL Glucose (74-99) mg/dL POC Glucose (mg/dL) 141 H 152 H 143 H (75-99) mg/dL Calcium (8.4-10.2) mg/dL Crossmatch 06/17/19 06/17/19 06/17/19 Range/Units 07:27 07:27 09:40 WBC 0.8 L* (3.8-10.6) k/uL RBC 2.15 L (3.80-5.40) m/uL Hgb 6.5 L* (11.4-16.0) gm/dL Hct 18.5 L* (34.0-46.0) % Plt Count 5 L* D (150-450) k/uL Neutrophils # 0.1 L* (1.3-7.7) k/uL Lymphocytes # 0.6 L (1.0-4.8) k/uL Chloride 109 H (98-107) mmol/L Carbon Dioxide 21 L (22-30) mmol/L BUN 24 H (7-17) mg/dL Creatinine 0.41 L (0.52-1.04) mg/dL Glucose 137 H (74-99) mg/dL POC Glucose (mg/dL) (75-99) mg/dL Calcium 8.2 L (8.4-10.2) mg/dL Crossmatch See Detail 06/17/19 Range/Units 11:33 WBC (3.8-10.6) k/uL RBC (3.80-5.40) m/uL Hgb (11.4-16.0) gm/dL Hct (34.0-46.0) % Plt Count (150-450) k/uL Neutrophils # (1.3-7.7) k/uL Lymphocytes # (1.0-4.8) k/uL Chloride (98-107) mmol/L Carbon Dioxide (22-30) mmol/L BUN (7-17) mg/dL Creatinine (0.52-1.04) mg/dL Glucose (74-99) mg/dL POC Glucose (mg/dL) 131 H (75-99) mg/dL Calcium (8.4-10.2) mg/dL Crossmatch Assessment and Plan (1) Diverticulitis Current Visit: Yes Status: Acute Code(s): K57.92 - DVTRCLI OF INTEST, PART UNSP, W/O PERF OR ABSCESS W/O BLEED SNOMED Code(s): 056628178
[2019-06-17] MEDS: 1: MVI, ADULT NO.4 WITH VIT K 10 ML, TRACE (CONC-1ML/DOSE) 1 ML, POTASSIUM CHLORIDE 20 M IV SCH ×7 (12:42)
--- NOTE | 2019-06-17 14:14 | P.PN ---
Subjective Progress Note Date: 06/17/19 Principal diagnosis: This is a 73-year-old woman who was admitted with pancytopenia, sepsis, acute hypoxic respiratory failure, hypokalemia and was currently receiving chemotherapy for chronic lymphoid leukemia and is being closely monitored. Patient is being followed by multiple consultations including oncology surgery, infectious disease, and pulmonary. This morning patient was nauseated with some vomiting noted that was relieved with Zofran. Patient's platelets this morning were 6 and currently receiving a transfusion at this time. Hemoglobin is 7.4 and will continue to monitor closely. Current potassium is 4.1. Patient is lying in bed in no acute distress stating that she feels fatigued and weak and unable to increase her energy and strength. PT/OT is following. Guarded prognosis. 06/12/2019 Patient is sitting up in bed in no acute distress. No increase in nausea or vomiting today. Patient is tolerating full liquids at this time and may advance as tolerated. Patient denies any other issues overnight. Patient denies any chest pain, shortness of breath, or palpitations at this time. Patient remains afebrile. Patient is still having some abdominal discomfort in the lower rib cage area on the sides due to her cough she states. Will continue to monitor closely. Hematology oncology is following closely. Guarded prognosis. 06/13/2019 Patient is sitting up in bed in no acute distress. A friend or family at the bedside visiting. Patient is tolerating diet and denies any nausea or vomiting at this time. Diet has been advanced. Patient denies any chest pain, shortness of breath, or palpitations at this time. Patient did have a low-grade fever today. Infectious disease is following. Patient antibiotics are currently oral Cipro and Flagyl and will continue. Patient is requesting something more for the cough as she continues to have a cough with no phlegm production. Robitussin-AC was ordered. Patient states that Tessalon Perles were not helping. Patient is having some mild side pain at her ribs due to the cough. PT/OT are following. Patient has not had the strength to get up and work with them at this time. Will continue to encourage working with PT/OT. Patient's hemoglobin and platelets have much improved today. Patient's hemoglobin is 7.8 and platelets are 22. Oncology is following closely. Discussed with the patient at length today about rehab as it would not be in her best interest to return home at this time due to the weakness and fatigue. Patient has agreed to a rehab. Case management and social work are working on possible placement. Dr. Da Silva was consulted and awaiting report. Guarded prognosis. 06/17/2019 This is a 73-year-old woman who was admitted with multiple complex medical issues with severe pancytopenia, leukopenia, and significant thrombocytopenia, CLL on chemotherapy and is being closely monitored. Hematology/oncology Dr. Oliva is following closely and patient is to remain nothing by mouth except educations, ice chips, popsicles. The patient is currently being maintained on TPN. Patient continues to have mild upper abdominal discomfort on the left and right sides the patient states it is due to the cough that she is still experiencing. Patient is very fatigued and lethargic today. Patient's hemoglobin today is 6.5 and her platelet count is 5. Patient is going to be transfused with 1 unit PRBC and 1 unit of platelets. Will continue to monitor labs closely. Patient seems more sad and discouraged today after receiving her lab values and states she just doesn't understand why nothing is improving. Discussed with the patient at length today about these findings and will continue to monitor. Family is at the bedside. Guarded prognosis. Objective - Vital Signs Vital signs: Vital Signs Temp 99.3 F 06/17/19 13:17 Pulse 81 06/17/19 13:17 Resp 16 06/17/19 13:17 BP 129/62 06/17/19 13:17 Pulse Ox 97 06/17/19 13:17 Intake & Output 06/16/19 06/17/19 06/17/19 18:59 06:59 18:59 Intake Total 1195 3619 0 Output Total 500 Balance 695 3619 0 Weight 93.5 kg Intake: IV 895 960 Fat Emulsion 20% 250 ml @ 125 20.833 mls/hr IV MoWeFr [facility] Rx#:[id number] Mvi, Adult No.4 with Vit 770 560 K 10 ml Trace (Conc-1Ml/ Dose) 1 ml Potassium Chloride 20 meq Calcium Gluconate 1 gm Magnesium Sulfate gm 2 gm Sodium Chloride 2.5MEQ/ml Vial 15 meq In Amino Acid 4.25 %-D10w+Lytes*E* 1,000 ml @ 70 mls/hr IV .BY DURATION [facility] Rx#: [id number] Sodium Chloride 0.9% 500 400 ml 500 ml @ 20 mls/hr IV .Q24H [facility] Rx#:[id number] Intake, IV Titration 200 2069 Amount Aztreonam 2 gm In Sodium 100 Chloride 0.9% 100 ml @ 100 mls/hr IVPB Q8HR [facility] Rx#:[id number] Mvi, Adult No.4 with Vit 1041 K 10 ml Trace (Conc-1Ml/ Dose) 1 ml Potassium Chloride 20 meq Calcium Gluconate 1 gm Magnesium Sulfate gm 2 gm Sodium Chloride 2.5MEQ/ml Vial 15 meq In Amino Acid 4.25 %-D10w+Lytes*E* 1,000 ml @ 70 mls/hr IV .BY DURATION [facility] Rx#: [id number] Potassium Chloride 20 meq 1028 Calcium Gluconate 1 gm Magnesium Sulfate gm 1 gm Sodium Chloride 2.5MEQ/ ml Vial 15 meq In Amino Acid 4.25%-D10w+Lytes*E* 1,000 ml @ 70 mls/hr IV . BY DURATION [facility] Rx#: [id number] metroNIDAZOLE-NS PMX 500 100 mg In Saline 1 100ml.bag @ 100 mls/hr IVPB Q8HR [facility] Rx#:[id number] Oral 100 590 Blood Product 0 Platelet Irr Pheresis 2 0 Acda Unit [id number] Output: Urine 350 Stool 150 Other: Voiding Method Bedside Commode Bedside Commode Bedside Commode Diaper Diaper Diaper Incontinent Incontinent Incontinent # Voids 1 - Exam Gen: This is a 73-year-old female lying in bed in no acute distress. Vital signs are stable. Temp is 98.8 F, pulse is 82, respirations are 19, blood pressure is 125/59, pulse ox is 97% on room air. HEENT: Head is atraumatic, normocephalic. Pupils equal, round. Sclerae is anicteric. Oral mucosa is pale and dry NECK: Supple. No JVD. No lymphadenopathy. No thyromegaly. LUNGS: Diminished lung sounds at the bases with a few scattered rhonchi noted on exam. No intercostal retractions. HEART: Regular rate and rhythm. No murmur. ABDOMEN: Soft. obese. Bowel sounds are present. No masses. Tenderness noted on bilateral sides near the lower rib cage. EXTREMITIES: No pedal edema. No calf tenderness. NEUROLOGICAL: Patient is awake and lethargic, alert and oriented x3. Cranial ner ves 2 through 12 are grossly intact. - Labs CBC & Chem 7: 06/17/19 07:27 06/17/19 07:27 Labs: Abnormal Lab Results - Last 24 Hours (Table) 06/16/19 06/17/19 06/17/19 Range/Units 17:53 00:20 06:07 WBC (3.8-10.6) k/uL RBC (3.80-5.40) m/uL Hgb (11.4-16.0) gm/dL Hct (34.0-46.0) % Plt Count (150-450) k/uL Neutrophils # (1.3-7.7) k/uL Lymphocytes # (1.0-4.8) k/uL Chloride (98-107) mmol/L Carbon Dioxide (22-30) mmol/L BUN (7-17) mg/dL Creatinine (0.52-1.04) mg/dL Glucose (74-99) mg/dL POC Glucose (mg/dL) 141 H 152 H 143 H (75-99) mg/dL Calcium (8.4-10.2) mg/dL Crossmatch 06/17/19 06/17/19 06/17/19 Range/Units 07:27 07:27 09:40 WBC 0.8 L* (3.8-10.6) k/uL RBC 2.15 L (3.80-5.40) m/uL Hgb 6.5 L* (11.4-16.0) gm/dL Hct 18.5 L* (34.0-46.0) % Plt Count 5 L* D (150-450) k/uL Neutrophils # 0.1 L* (1.3-7.7) k/uL Lymphocytes # 0.6 L (1.0-4.8) k/uL Chloride 109 H (98-107) mmol/L Carbon Dioxide 21 L (22-30) mmol/L BUN 24 H (7-17) mg/dL Creatinine 0.41 L (0.52-1.04) mg/dL Glucose 137 H (74-99) mg/dL POC Glucose (mg/dL) (75-99) mg/dL Calcium 8.2 L (8.4-10.2) mg/dL Crossmatch See Detail 06/17/19 Range/Units 11:33 WBC (3.8-10.6) k/uL RBC (3.80-5.40) m/uL Hgb (11.4-16.0) gm/dL Hct (34.0-46.0) % Plt Count (150-450) k/uL Neutrophils # (1.3-7.7) k/uL Lymphocytes # (1.0-4.8) k/uL Chloride (98-107) mmol/L Carbon Dioxide (22-30) mmol/L BUN (7-17) mg/dL Creatinine (0.52-1.04) mg/dL Glucose (74-99) mg/dL POC Glucose (mg/dL) 131 H (75-99) mg/dL Calcium (8.4-10.2) mg/dL Crossmatch Assessment and Plan Assessment: Severe pancytopenia, neutropenia, and thrombocytopenia secondary to chronic lymphoid leukemia on chemotherapy Severe thrombocytopenia requiring multiple platelet transfusions. Platelets today are 5. Hemoglobin is 6.5. 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 Multiple medical consultations are following closely. Per oncology platelets are to be transfused today as her platelet count is 5. Hemoglobin is 6.5 and will be receiving 1 unit of PRBCs. Patient denies any episodes of nausea or vomiting today is being maintained on TPN. Infectious disease is following closely. Guarded prognosis. Further recommendations to follow. Case management and socially responsible investment adviser following closely. Once the patient is improved and stabilized, PT/OT and possible ECF rehab.
--- NOTE | 2019-06-17 15:55 | P.PN ---
Subjective Progress Note Date: 06/17/19 Principal diagnosis: CLL Thrombocytopenia Blood counts decreased today requiring PRBC and Platelet transfusion. Still incredible weak. Objective - Vital Signs Vital signs: Vital Signs Temp 99 F 06/17/19 15:13 Pulse 82 06/17/19 15:23 Resp 15 06/17/19 15:23 BP 136/56 06/17/19 15:23 Pulse Ox 97 06/17/19 15:23 Intake & Output 06/16/19 06/17/19 06/17/19 18:59 06:59 18:59 Intake Total 1195 3619 1542 Output Total 500 150 Balance 695 3619 1392 Weight 93.5 kg Intake: IV 895 960 840 Fat Emulsion 20% 250 ml @ 125 20.833 mls/hr IV MoWeFr [facility] Rx#:[id number] Mvi, Adult No.4 with Vit 770 560 840 K 10 ml Trace (Conc-1Ml/ Dose) 1 ml Potassium Chloride 20 meq Calcium Gluconate 1 gm Magnesium Sulfate gm 2 gm Sodium Chloride 2.5MEQ/ml Vial 15 meq In Amino Acid 4.25 %-D10w+Lytes*E* 1,000 ml @ 70 mls/hr IV .BY DURATION [facility] Rx#: [id number] Sodium Chloride 0.9% 500 400 ml 500 ml @ 20 mls/hr IV .Q24H [facility] Rx#:[id number] Intake, IV Titration 200 2069 400 Amount Aztreonam 2 gm In Sodium 100 200 Chloride 0.9% 100 ml @ 100 mls/hr IVPB Q8HR [facility] Rx#:[id number] Mvi, Adult No.4 with Vit 1041 K 10 ml Trace (Conc-1Ml/ Dose) 1 ml Potassium Chloride 20 meq Calcium Gluconate 1 gm Magnesium Sulfate gm 2 gm Sodium Chloride 2.5MEQ/ml Vial 15 meq In Amino Acid 4.25 %-D10w+Lytes*E* 1,000 ml @ 70 mls/hr IV .BY DURATION [facility] Rx#: [id number] Potassium Chloride 20 meq 1028 Calcium Gluconate 1 gm Magnesium Sulfate gm 1 gm Sodium Chloride 2.5MEQ/ ml Vial 15 meq In Amino Acid 4.25%-D10w+Lytes*E* 1,000 ml @ 70 mls/hr IV . BY DURATION [facility] Rx#: [id number] metroNIDAZOLE-NS PMX 500 100 200 mg In Saline 1 100ml.bag @ 100 mls/hr IVPB Q8HR [facility] Rx#:[id number] Oral 100 590 100 Blood Product 202 Platelet Irr Pheresis 2 202 Acda Unit [id number] Rc Irr As1 Unit 0 [id number] Output: Urine 350 Stool 150 150 Other: Voiding Method Bedside Commode Bedside Commode Bedside Commode Diaper Diaper Diaper Incontinent Incontinent Incontinent # Voids 1 3 - Exam General: Alert and Oriented x3, No Acute Distress Head: Normocytic, left eye ptysis Neck: Supple Mouth: scabbed herpetic lesions lips resolved Eyes: Non-sclerotic No Palpable cervical, supraclavicular, axillary adenopathy Heart: Tachy Lungs: Diminished expiratory wheeze Abdomen: Soft, Non-Distended, Non-Tended, BSx4 Extremities:lower ex folet DD, petechaie rash. Neurological: Very weak Psych: Calm and cooperative - Labs CBC & Chem 7: 06/17/19 07:27 06/17/19 07:27 Labs: Abnormal Lab Results - Last 24 Hours (Table) 06/16/19 06/17/19 06/17/19 Range/Units 17:53 00:20 06:07 WBC (3.8-10.6) k/uL RBC (3.80-5.40) m/uL Hgb (11.4-16.0) gm/dL Hct (34.0-46.0) % Plt Count (150-450) k/uL Neutrophils # (1.3-7.7) k/uL Lymphocytes # (1.0-4.8) k/uL Chloride (98-107) mmol/L Carbon Dioxide (22-30) mmol/L BUN (7-17) mg/dL Creatinine (0.52-1.04) mg/dL Glucose (74-99) mg/dL POC Glucose (mg/dL) 141 H 152 H 143 H (75-99) mg/dL Calcium (8.4-10.2) mg/dL Crossmatch 06/17/19 06/17/19 06/17/19 Range/Units 07:27 07:27 09:40 WBC 0.8 L* (3.8-10.6) k/uL RBC 2.15 L (3.80-5.40) m/uL Hgb 6.5 L* (11.4-16.0) gm/dL Hct 18.5 L* (34.0-46.0) % Plt Count 5 L* D (150-450) k/uL Neutrophils # 0.1 L* (1.3-7.7) k/uL Lymphocytes # 0.6 L (1.0-4.8) k/uL Chloride 109 H (98-107) mmol/L Carbon Dioxide 21 L (22-30) mmol/L BUN 24 H (7-17) mg/dL Creatinine 0.41 L (0.52-1.04) mg/dL Glucose 137 H (74-99) mg/dL POC Glucose (mg/dL) (75-99) mg/dL Calcium 8.2 L (8.4-10.2) mg/dL Crossmatch See Detail 06/17/19 Range/Units 11:33 WBC (3.8-10.6) k/uL RBC (3.80-5.40) m/uL Hgb (11.4-16.0) gm/dL Hct (34.0-46.0) % Plt Count (150-450) k/uL Neutrophils # (1.3-7.7) k/uL Lymphocytes # (1.0-4.8) k/uL Chloride (98-107) mmol/L Carbon Dioxide (22-30) mmol/L BUN (7-17) mg/dL Creatinine (0.52-1.04) mg/dL Glucose (74-99) mg/dL POC Glucose (mg/dL) 131 H (75-99) mg/dL Calcium (8.4-10.2) mg/dL Crossmatch Assessment and Plan Plan: CLL - Status PostTreatment with single agent monoclonal antibody (Rituxan) initiated inpatient 4 of 4 weekly doses on 05/07/19, 05/14/19, 05/21/19 and 05/28/19 and then Rituxan and Bendeka on 06/04/19 - due to patient' s critical condition and instability requiring ongoing hospitalization. - Monitor CBC with differential and CMP, Uric acid, LDH, Coags Labs daily - Daily follow up Pancytopenia: - Continue Supportive Care and Supportive Transfusions Refractory thrombocytopenia: Crossmatched platelets PRN, less than 10K SIRS/Sepsis: Resolved Gram Negative Bacilli Blood Cultures Psudomonas Aeruginosa - Antibiotics - ID Following Acute Hypoxic Respiratory Failure: Improved - Pulm following Hx: Breast Cancer: - Continue on Arimidex. 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 Plan: - Continue supportive care and Transfusions - Continue increase performance status and strength with PT/OT - Continue to utilized crossmatched platelets for transfusions when available - Continue TPN = DISPO per primary, if accepted inpatient rehab maybe beneficial with transfusion and nutritional needs
[2019-06-17 16:41] LABS: Glucose,Whole Blood 134 mg/dL (75-99)
--- NOTE | 2019-06-17 19:00 | PN ---
PROGRESS NOTE DATE OF SERVICE: 06/17/2019. REASON FOR FOLLOWUP: Pseudomonas bacteremia and diverticulitis. INTERVAL HISTORY: The patient is currently afebrile. The patient has been breathing comfortably. She did have some cough but not bringing up any sputum. No nausea, no vomiting, no worsening abdominal pain or diarrhea. PHYSICAL EXAMINATION: Blood pressure 165/72 with a pulse of 84, temperature 98.7. She is 97% on room air. General description is an elderly female lying in bed in no distress. RESPIRATORY SYSTEM: Unlabored breathing. Clear to auscultation anteriorly. HEART: S1, S2. Regular rate and rhythm. ABDOMEN: Soft. No tenderness. LABS: Hemoglobin 6.5, white count 0.8. BUN of 24, creatinine 0.41. DIAGNOSTIC IMPRESSION AND PLAN: Patient with pseudomonas bacteremia and sigmoid diverticulitis in this patient who did have a repeat CT that did not show complete resolution of her diverticulitis. Currently on IV Azactam and Flagyl because the patient is n.p.o. Continue with IV antibiotic. Transition to oral once her oral intake has improved. Continue with supportive care. MMODL / IJN: [id number] /
[2019-06-17] MEDS: traMADol 50 MG TAB PO PRN (19:42)
[2019-06-17] MEDS: ATORVASTATIN 40 MG TAB PO SCH (21:08)
[2019-06-18 00:01] LABS: Glucose,Whole Blood 148 mg/dL (75-99)
[2019-06-18] MEDS: INSULIN ASPART (NovoLOG) 100 UNIT/ML VIAL SQ SCH ×5 (00:02→23:51)
[2019-06-18] MEDS: metroNIDAZOLE-NS PMX 500 MG in SALINE 1 100ML.BAG IVPB SCH ×3 (01:06→18:11)
[2019-06-18] MEDS: 1: MVI, ADULT NO.4 WITH VIT K 10 ML, TRACE (CONC-1ML/DOSE) 1 ML, POTASSIUM CHLORIDE 20 M IV SCH ×7 (03:44)
[2019-06-18] MEDS: ONDANSETRON 4 MG/2 ML VIAL IVP PRN ×2 (04:45→21:14)
[2019-06-18 06:14] LABS: Glucose,Whole Blood 144 mg/dL (75-99)
[2019-06-18 07:44] LABS: Basophils % (A) 0 %; Eosinophils % (A) 1 %; Lymphocytes # (A) 1.1 k/uL (1.0-4.8); Lymphocytes % (A) 85 %; MCH 29.4 pg (25.0-35.0); MCHC 34.7 g/dL (31.0-37.0); MCV 84.8 fL (80.0-100.0); Mean Platelet Volume 7.9; Monocytes % (A) 2 %; Neutrophils % (A) 10 %; RBC 2.31 m/uL (3.80-5.40)
[2019-06-18 07:51] LABS: Ionized Calcium 4.7 mg/dL (4.5-5.3)
[2019-06-18 07:52] LABS: HGB 6.8 gm/dL (11.4-16.0); WBC 1.3 k/uL (3.8-10.6)
[2019-06-18 07:53] LABS: HCT 19.6 % (34.0-46.0); Neutrophils # (A) 0.1 k/uL (1.3-7.7); Platelet Count 9 k/uL (150-450)
[2019-06-18 07:59] LABS: INR 1.1 (<1.2); Prothrombin Time 11.6 sec (9.0-12.0)
[2019-06-18 08:48] LABS: ALT 18 U/L (9-52); AST 11 U/L (14-36); African American GFR (CKD) >90 (>60 ml/min/1.73 sqM); Albumin 2.7 g/dL (3.5-5.0); Alkaline Phosphatase 40 U/L (38-126); Anion Gap 7 mmol/L; Blood Urea Nitrogen 23 mg/dL (7-17); Calcium 7.6 mg/dL (8.4-10.2); Carbon Dioxide 20 mmol/L (22-30); Chloride 110 mmol/L (98-107); Glucose 128 mg/dL (74-99); Magnesium 2.1 mg/dL (1.6-2.3); Potassium 4.3 mmol/L (3.5-5.1); Sodium 137 mmol/L (137-145); Total Bilirubin 0.5 mg/dL (0.2-1.3); Total Protein 4.9 g/dL (6.3-8.2)
--- NOTE | 2019-06-18 08:54 | P.PN ---
Subjective Progress Note Date: 06/18/19 Principal diagnosis: Diverticulitis Patient sleeping comfortably today. Today's labs noted. Still with pancytopenia. Apparently did well overnight. Tolerating sips of clears. T-max 99.3. Objective - Vital Signs Vital signs: Vital Signs Temp 96.7 F L 06/18/19 05:00 Pulse 88 06/18/19 05:00 Resp 16 06/18/19 05:00 BP 152/70 06/18/19 05:00 Pulse Ox 98 06/18/19 05:00 Intake & Output 06/17/19 06/18/19 06/18/19 18:59 06:59 18:59 Intake Total 2880 330 Output Total 150 150 Balance 2730 180 Weight 95.5 kg Intake: IV 840 210 Mvi, Adult No.4 with Vit 840 210 K 10 ml Trace (Conc-1Ml/ Dose) 1 ml Potassium Chloride 20 meq Calcium Gluconate 1 gm Magnesium Sulfate gm 2 gm Sodium Chloride 2.5MEQ/ml Vial 15 meq In Amino Acid 4.25 %-D10w+Lytes*E* 1,000 ml @ 70 mls/hr IV .BY DURATION [facility] Rx#: [id number] Intake, IV Titration 1428 Amount Aztreonam 2 gm In Sodium 200 Chloride 0.9% 100 ml @ 100 mls/hr IVPB Q8HR [facility] Rx#:[id number] Potassium Chloride 20 meq 1028 Calcium Gluconate 1 gm Magnesium Sulfate gm 1 gm Sodium Chloride 2.5MEQ/ ml Vial 15 meq In Amino Acid 4.25%-D10w+Lytes*E* 1,000 ml @ 70 mls/hr IV . BY DURATION [facility] Rx#: [id number] metroNIDAZOLE-NS PMX 500 200 mg In Saline 1 100ml.bag @ 100 mls/hr IVPB Q8HR [facility] Rx#:[id number] Oral 100 120 Blood Product 512 Platelet Irr Pheresis 2 202 Acda Unit [id number] Rc Irr As1 Unit 310 [id number] Output: Stool 150 150 Other: Voiding Method Bedside Commode Bedside Commode Diaper Diaper Incontinent Incontinent # Voids 3 2 - Exam Abdomen: Soft, mild right upper quadrant tenderness, no rebound or guarding - Labs CBC & Chem 7: 06/18/19 07:13 06/17/19 07:27 Labs: Abnormal Lab Results - Last 24 Hours (Table) 06/17/19 06/17/19 06/17/19 Range/Units 07:27 09:40 11:33 WBC (3.8-10.6) k/uL RBC (3.80-5.40) m/uL Hgb (11.4-16.0) gm/dL Hct (34.0-46.0) % Plt Count 5 L* D (150-450) k/uL Neutrophils # 0.1 L* (1.3-7.7) k/uL Lymphocytes # 0.6 L (1.0-4.8) k/uL POC Glucose (mg/dL) 131 H (75-99) mg/dL Crossmatch See Detail 06/17/19 06/17/19 06/18/19 Range/Units 16:40 23:59 06:13 WBC (3.8-10.6) k/uL RBC (3.80-5.40) m/uL Hgb (11.4-16.0) gm/dL Hct (34.0-46.0) % Plt Count (150-450) k/uL Neutrophils # (1.3-7.7) k/uL Lymphocytes # (1.0-4.8) k/uL POC Glucose (mg/dL) 134 H 148 H 144 H (75-99) mg/dL Crossmatch 06/18/19 Range/Units 07:13 WBC 1.3 L* (3.8-10.6) k/uL RBC 2.31 L (3.80-5.40) m/uL Hgb 6.8 L* (11.4-16.0) gm/dL Hct 19.6 L* (34.0-46.0) % Plt Count 9 L* D (150-450) k/uL Neutrophils # (1.3-7.7) k/uL Lymphocytes # (1.0-4.8) k/uL POC Glucose (mg/dL) (75-99) mg/dL Crossmatch Assessment and Plan (1) Diverticulitis Narrative/Plan: Continue sips of clears for now. Continue antibiotics. Monitor daily CBC. Current Visit: Yes Status: Acute Code(s): K57.92 - DVTRCLI OF INTEST, PART UNSP, W/O PERF OR ABSCESS W/O BLEED SNOMED Code(s): 999171681
[2019-06-18] MEDS: PANTOPRAZOLE 40 MG TABLET PO SCH ×2 (09:43→18:11)
[2019-06-18] MEDS: AZTREONAM 2 GM in SODIUM CHLORIDE 0.9% 100 ML IVPB SCH ×3 (09:43→23:43)
[2019-06-18] MEDS: guaiFENesin 600 MG TABLET.ER PO SCH ×2 (09:43→21:07)
[2019-06-18] MEDS: amLODIPine 5 MG TAB PO SCH ×2 (09:43→21:07)
[2019-06-18] MEDS: ALLOPURINOL 300 MG TAB PO SCH (09:44)
--- NOTE | 2019-06-18 09:56 | P.PN ---
Subjective Progress Note Date: 06/18/19 Principal diagnosis: CLL Thrombocytopenia Spoke with bloodbank and crossmatched unit will be in tonight, will transfuse irradiated PRBC today and await croossmatched tonight Objective - Vital Signs Vital signs: Vital Signs Temp 96.7 F L 06/18/19 05:00 Pulse 88 06/18/19 05:00 Resp 16 06/18/19 05:00 BP 152/70 06/18/19 05:00 Pulse Ox 98 06/18/19 05:00 Intake & Output 06/17/19 06/18/19 06/18/19 18:59 06:59 18:59 Intake Total 2880 330 Output Total 150 150 Balance 2730 180 Weight 95.5 kg Intake: IV 840 210 Mvi, Adult No.4 with Vit 840 210 K 10 ml Trace (Conc-1Ml/ Dose) 1 ml Potassium Chloride 20 meq Calcium Gluconate 1 gm Magnesium Sulfate gm 2 gm Sodium Chloride 2.5MEQ/ml Vial 15 meq In Amino Acid 4.25 %-D10w+Lytes*E* 1,000 ml @ 70 mls/hr IV .BY DURATION [facility] Rx#: [id number] Intake, IV Titration 1428 Amount Aztreonam 2 gm In Sodium 200 Chloride 0.9% 100 ml @ 100 mls/hr IVPB Q8HR [facility] Rx#:[id number] Potassium Chloride 20 meq 1028 Calcium Gluconate 1 gm Magnesium Sulfate gm 1 gm Sodium Chloride 2.5MEQ/ ml Vial 15 meq In Amino Acid 4.25%-D10w+Lytes*E* 1,000 ml @ 70 mls/hr IV . BY DURATION [facility] Rx#: [id number] metroNIDAZOLE-NS PMX 500 200 mg In Saline 1 100ml.bag @ 100 mls/hr IVPB Q8HR [facility] Rx#:[id number] Oral 100 120 Blood Product 512 Platelet Irr Pheresis 2 202 Acda Unit [id number] Rc Irr As1 Unit 310 [id number] Output: Stool 150 150 Other: Voiding Method Bedside Commode Bedside Commode Diaper Diaper Incontinent Incontinent # Voids 3 2 - Exam General: Alert and Oriented x3, No Acute Distress Head: Normocytic, left eye ptysis Neck: Supple Mouth: scabbed herpetic lesions lips resolved Eyes: Non-sclerotic No Palpable cervical, supraclavicular, axillary adenopathy Heart: Tachy Lungs: Diminished expiratory wheeze Abdomen: Soft, Non-Distended, Non-Tended, BSx4 Extremities:lower ex folet DD, petechaie rash. Neurological: Very weak Psych: Calm and cooperative - Labs CBC & Chem 7: 06/18/19 07:13 06/18/19 07:13 Labs: Abnormal Lab Results - Last 24 Hours (Table) 06/17/19 06/17/19 06/17/19 Range/Units 07:27 09:40 11:33 WBC (3.8-10.6) k/uL RBC (3.80-5.40) m/uL Hgb (11.4-16.0) gm/dL Hct (34.0-46.0) % Plt Count 5 L* D (150-450) k/uL Neutrophils # 0.1 L* (1.3-7.7) k/uL Lymphocytes # 0.6 L (1.0-4.8) k/uL Chloride (98-107) mmol/L Carbon Dioxide (22-30) mmol/L BUN (7-17) mg/dL Creatinine (0.52-1.04) mg/dL Glucose (74-99) mg/dL POC Glucose (mg/dL) 131 H (75-99) mg/dL Calcium (8.4-10.2) mg/dL AST (14-36) U/L Total Protein (6.3-8.2) g/dL Albumin (3.5-5.0) g/dL Crossmatch See Detail 06/17/19 06/17/19 06/18/19 Range/Units 16:40 23:59 06:13 WBC (3.8-10.6) k/uL RBC (3.80-5.40) m/uL Hgb (11.4-16.0) gm/dL Hct (34.0-46.0) % Plt Count (150-450) k/uL Neutrophils # (1.3-7.7) k/uL Lymphocytes # (1.0-4.8) k/uL Chloride (98-107) mmol/L Carbon Dioxide (22-30) mmol/L BUN (7-17) mg/dL Creatinine (0.52-1.04) mg/dL Glucose (74-99) mg/dL POC Glucose (mg/dL) 134 H 148 H 144 H (75-99) mg/dL Calcium (8.4-10.2) mg/dL AST (14-36) U/L Total Protein (6.3-8.2) g/dL Albumin (3.5-5.0) g/dL Crossmatch 06/18/19 06/18/19 Range/Units 07:13 07:13 WBC 1.3 L* (3.8-10.6) k/uL RBC 2.31 L (3.80-5.40) m/uL Hgb 6.8 L* (11.4-16.0) gm/dL Hct 19.6 L* (34.0-46.0) % Plt Count 9 L* D (150-450) k/uL Neutrophils # (1.3-7.7) k/uL Lymphocytes # (1.0-4.8) k/uL Chloride 110 H (98-107) mmol/L Carbon Dioxide 20 L (22-30) mmol/L BUN 23 H (7-17) mg/dL Creatinine 0.38 L (0.52-1.04) mg/dL Glucose 128 H (74-99) mg/dL POC Glucose (mg/dL) (75-99) mg/dL Calcium 7.6 L (8.4-10.2) mg/dL AST 11 L (14-36) U/L Total Protein 4.9 L (6.3-8.2) g/dL Albumin 2.7 L (3.5-5.0) g/dL Crossmatch Assessment and Plan Plan: CLL - Status PostTreatment with single agent monoclonal antibody (Rituxan) initiated inpatient 4 of 4 weekly doses on 05/07/19, 05/14/19, 05/21/19 and 05/28/19 and then Rituxan and Bendeka on 06/04/19 - due to patient' s critical condition and instability requiring ongoing hospitalization. - Monitor CBC with differential and CMP, Uric acid, LDH, Coags Labs daily - Daily follow up Pancytopenia: - Continue Supportive Care and Supportive Transfusions Refractory thrombocytopenia: Crossmatched platelets PRN, less than 10K SIRS/Sepsis: Resolved Gram Negative Bacilli Blood Cultures Psudomonas Aeruginosa - Antibiotics - ID Following Acute Hypoxic Respiratory Failure: Improved - Pulm following Hx: Breast Cancer: - Continue on Arimidex. 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 Plan: - Continue supportive care and Transfusions - Continue increase performance status and strength with PT/OT - Continue to utilized crossmatched platelets for transfusions when available - Continue TPN = DISPO per primary, if accepted inpatient rehab maybe beneficial with transfusion and nutritional needs - Platlets and PRBC today ordered, discussed with blood bank. Lisa Cooley AOP
[2019-06-18 10:31] LABS: Poikilocytosis (M) Present
[2019-06-18 11:24] LABS: LDH 402 U/L (313-618)
[2019-06-18 11:28] LABS: Glucose,Whole Blood 120 mg/dL (75-99)
[2019-06-18] MEDS: guaiFENesin-Coden 100-10MG/5ML 10 ML CUP PO PRN ×2 (12:49→18:46)
[2019-06-18] MEDS: FAT EMULSION 20% 250 ML IV SCH (13:03)
[2019-06-18] MEDS: SODIUM CHLORIDE 0.9% 500 ML 500 ML IV SCH (13:04)
--- NOTE | 2019-06-18 13:32 | P.PN ---
Subjective Progress Note Date: 06/18/19 Principal diagnosis: This is a 73-year-old woman who was admitted with pancytopenia, sepsis, acute hypoxic respiratory failure, hypokalemia and was currently receiving chemotherapy for chronic lymphoid leukemia and is being closely monitored. Patient is being followed by multiple consultations including oncology surgery, infectious disease, and pulmonary. This morning patient was nauseated with some vomiting noted that was relieved with Zofran. Patient's platelets this morning were 6 and currently receiving a transfusion at this time. Hemoglobin is 7.4 and will continue to monitor closely. Current potassium is 4.1. Patient is lying in bed in no acute distress stating that she feels fatigued and weak and unable to increase her energy and strength. PT/OT is following. Guarded prognosis. 06/12/2019 Patient is sitting up in bed in no acute distress. No increase in nausea or vomiting today. Patient is tolerating full liquids at this time and may advance as tolerated. Patient denies any other issues overnight. Patient denies any chest pain, shortness of breath, or palpitations at this time. Patient remains afebrile. Patient is still having some abdominal discomfort in the lower rib cage area on the sides due to her cough she states. Will continue to monitor closely. Hematology oncology is following closely. Guarded prognosis. 06/13/2019 Patient is sitting up in bed in no acute distress. A friend or family at the bedside visiting. Patient is tolerating diet and denies any nausea or vomiting at this time. Diet has been advanced. Patient denies any chest pain, shortness of breath, or palpitations at this time. Patient did have a low-grade fever today. Infectious disease is following. Patient antibiotics are currently oral Cipro and Flagyl and will continue. Patient is requesting something more for the cough as she continues to have a cough with no phlegm production. Robitussin-AC was ordered. Patient states that Tessalon Perles were not helping. Patient is having some mild side pain at her ribs due to the cough. PT/OT are following. Patient has not had the strength to get up and work with them at this time. Will continue to encourage working with PT/OT. Patient's hemoglobin and platelets have much improved today. Patient's hemoglobin is 7.8 and platelets are 22. Oncology is following closely. Discussed with the patient at length today about rehab as it would not be in her best interest to return home at this time due to the weakness and fatigue. Patient has agreed to a rehab. Case management and social work are working on possible placement. Dr. Da Silva was consulted and awaiting report. Guarded prognosis. 06/17/2019 This is a 73-year-old woman who was admitted with multiple complex medical issue s with severe pancytopenia, leukopenia, and significant thrombocytopenia, CLL on chemotherapy and is being closely monitored. Hematology/oncology Dr. Oliva is following closely and patient is to remain nothing by mouth except educations, ice chips, popsicles. The patient is currently being maintained on TPN. Patient continues to have mild upper abdominal discomfort on the left and right sides the patient states it is due to the cough that she is still experiencing. Patient is very fatigued and lethargic today. Patient's hemoglobin today is 6.5 and her platelet count is 5. Patient is going to be transfused with 1 unit PRBC and 1 unit of platelets. Will continue to monitor labs closely. Patient seems more sad and discouraged today after receiving her lab values and states she just doesn't understand why nothing is improving. Discussed with the patient at length today about these findings and will continue to monitor. Family is at the bedside. Guarded prognosis. 06/18/2019 Patient is sitting up at the chair in no acute distress. Patients platelet count was low today again current platelet count is 9 and currently awaiting transfusion. Hemoglobin is 6.8 and will be transfused as well. Dr. Oliva is following closely. Patient continues to be nothing by mouth at this time except for medications and ice chips. Patient is still having a lot of mid abdominal pain and discomfort due to her cough. Patient is taking Robitussin-AC for the cough. Patient denies any chest pain, shortness of breath, or palpitations at this time. Patient denies any nausea or vomiting and is currently nothing by mouth and on TPN. patient is currently afebrile. Chest x-ray done yesterday sh ows right upper lobe opacities that are stable with new perihilar and left costophrenic angle opacities. Multifocal pneumonia is likely. Infectious disease is following. Patient is currently on IV antibiotics in the form of Aztreonam and Flagyl. Guarded prognosis. Objective - Vital Signs Vital signs: Vital Signs Temp 97.5 F L 06/18/19 12:03 Pulse 90 06/18/19 12:03 Resp 16 06/18/19 12:03 BP 133/63 06/18/19 12:03 Pulse Ox 98 06/18/19 12:03 Intake & Output 06/17/19 06/18/19 06/18/19 18:59 06:59 18:59 Intake Total 2880 330 Output Total 150 150 150 Balance 2730 180 -150 Weight 95.5 kg Intake: IV 840 210 Mvi, Adult No.4 with Vit 840 210 K 10 ml Trace (Conc-1Ml/ Dose) 1 ml Potassium Chloride 20 meq Calcium Gluconate 1 gm Magnesium Sulfate gm 2 gm Sodium Chloride 2.5MEQ/ml Vial 15 meq In Amino Acid 4.25 %-D10w+Lytes*E* 1,000 ml @ 70 mls/hr IV .BY DURATION [facility] Rx#: [id number] Intake, IV Titration 1428 Amount Aztreonam 2 gm In Sodium 200 Chloride 0.9% 100 ml @ 100 mls/hr IVPB Q8HR [facility] Rx#:[id number] Potassium Chloride 20 meq 1028 Calcium Gluconate 1 gm Magnesium Sulfate gm 1 gm Sodium Chloride 2.5MEQ/ ml Vial 15 meq In Amino Acid 4.25%-D10w+Lytes*E* 1,000 ml @ 70 mls/hr IV . BY DURATION [facility] Rx#: [id number] metroNIDAZOLE-NS PMX 500 200 mg In Saline 1 100ml.bag @ 100 mls/hr IVPB Q8HR [facility] Rx#:[id number] Oral 100 120 Blood Product 512 Platelet Irr Pheresis 2 202 Acda Unit [id number] Rc Irr As1 Unit 310 [id number] Output: Stool 150 150 150 Other: Voiding Method Bedside Commode Bedside Commode Bedside Commode Diaper Diaper Diaper Incontinent Incontinent Incontinent # Voids 3 2 - Exam Gen: This is a 73-year-old female sitting up in a chair in no acute distress. Vital signs are stable. Temp is 96.7F, pulse is 88, respirations are 16, blood pressure is 152/70, oxygen saturation is 98% on room air. HEENT: Head is atraumatic, normocephalic. Pupils equal, round. Sclerae is anicteric. Oral mucosa is dry and pale. Left eyelid closed NECK: Supple. No JVD. No lymphadenopathy. No thyromegaly. LUNGS: Diminished breath sounds at the bases with a few scattered rhonchi noted. no wheezing noted on exam. No intercostal retractions. HEART: S1 and S2 are muffled. No murmur. ABDOMEN: Soft. Bowel sounds are present. No masses. Mild tenderness bilaterally upon palpation underneath the rib cage. EXTREMITIES: No pedal edema. No calf tenderness. NEUROLOGICAL: Patient is lethargic but awake, alert and oriented x3. Cranial nerves 2 through 12 are grossly intact. - Labs CBC & Chem 7: 06/18/19 07:13 06/18/19 07:13 Labs: Abnormal Lab Results - Last 24 Hours (Table) 06/17/19 06/17/19 06/17/19 Range/Units 09:40 16:40 23:59 WBC (3.8-10.6) k/uL RBC (3.80-5.40) m/uL Hgb (11.4-16.0) gm/dL Hct (34.0-46.0) % Plt Count (150-450) k/uL Neutrophils # (1.3-7.7) k/uL Chloride (98-107) mmol/L Carbon Dioxide (22-30) mmol/L BUN (7-17) mg/dL Creatinine (0.52-1.04) mg/dL Glucose (74-99) mg/dL POC Glucose (mg/dL) 134 H 148 H (75-99) mg/dL Calcium (8.4-10.2) mg/dL AST (14-36) U/L Total Protein (6.3-8.2) g/dL Albumin (3.5-5.0) g/dL Crossmatch See Detail 06/18/19 06/18/19 06/18/19 Range/Units 06:13 07:13 07:13 WBC 1.3 L* (3.8-10.6) k/uL RBC 2.31 L (3.80-5.40) m/uL Hgb 6.8 L* (11.4-16.0) gm/dL Hct 19.6 L* (34.0-46.0) % Plt Count 9 L* D (150-450) k/uL Neutrophils # 0.1 L* (1.3-7.7) k/uL Chloride 110 H (98-107) mmol/L Carbon Dioxide 20 L (22-30) mmol/L BUN 23 H (7-17) mg/dL Creatinine 0.38 L (0.52-1.04) mg/dL Glucose 128 H (74-99) mg/dL POC Glucose (mg/dL) 144 H (75-99) mg/dL Calcium 7.6 L (8.4-10.2) mg/dL AST 11 L (14-36) U/L Total Protein 4.9 L (6.3-8.2) g/dL Albumin 2.7 L (3.5-5.0) g/dL Crossmatch 06/18/19 Range/Units 11:27 WBC (3.8-10.6) k/uL RBC (3.80-5.40) m/uL Hgb (11.4-16.0) gm/dL Hct (34.0-46.0) % Plt Count (150-450) k/uL Neutrophils # (1.3-7.7) k/uL Chloride (98-107) mmol/L Carbon Dioxide (22-30) mmol/L BUN (7-17) mg/dL Creatinine (0.52-1.04) mg/dL Glucose (74-99) mg/dL POC Glucose (mg/dL) 120 H (75-99) mg/dL Calcium (8.4-10.2) mg/dL AST (14-36) U/L Total Protein (6.3-8.2) g/dL Albumin (3.5-5.0) g/dL Crossmatch Assessment and Plan Assessment: Severe pancytopenia, neutropenia, and thrombocytopenia secondary to chronic lymphoid leukemia on chemotherapy Severe thrombocytopenia requiring multiple platelet transfusions. Platelets today are 9. Hemoglobin is 6.8. Patient is receiving transfusions of PRBCs and platelets today once eradicated Pseudomonas sepsis with neutropenic sepsis, present on admission Acute hypoxic respiratory failure, multifactorial, present on admission Possible acute sigmoid diverticulitis, diverticular abscess in the computed tomography scan Evolving right subscapular and intraparenchymal renal hematoma, stable in size Cholelithiasis History of breast cancer History of gastrointestinal stromal neoplasm History of HSV, lips and mucositis hypokalemia, current potassium is 4.3 Myopathy related to chronic illness Hypertension Hyperlipidemia History of gait dysfunction History of degenerative joint disease History of sleep apnea Obesity with body mass index of 41.1 Petechial rash of lower extremities Remote history of nicotine dependence Full code Recommendations and discussion: Recommend continue current medications, management, and symptomatic treatment. Multiple medical consultations are following closely. Per oncology platelets are to be transfused today as her platelet count is 9. Hemoglobin is 6.8 and will be receiving 1 unit of PRBCs. Patient denies any episodes of nausea or vomiting today is being maintained on TPN. Infectious disease is following closely. Extremely guarded prognosis. Further recommendations to follow. Case management and social insurance analyst following closely. Once the patient is improved and stabilized, PT/OT and possible ECF rehab.
[2019-06-18] MEDS: ACETAMINOPHEN TAB 325 MG TAB PO PRN ×2 (13:37→21:12)
--- NOTE | 2019-06-18 15:58 | PN ---
PROGRESS NOTE DATE OF SERVICE: 06/18/2019 REASON FOR FOLLOWUP: Diverticulitis and pseudomonas bacteremia. INTERVAL HISTORY: The patient is currently afebrile. The patient has been complaining of dry hacking cough and some left lower chest pain and abdominal pain associated with it. No nausea, no vomiting. Denies any worsening abdominal pain. Did have some diarrhea, though. PHYSICAL EXAMINATION: Blood pressure is 133/63 with a pulse of 90, temperature 97.5. She is 98% on room air. General description is an elderly female lying in bed in no distress. RESPIRATORY SYSTEM: Unlabored breathing. Clear to auscultation anteriorly. HEART: S1, S2. Regular rate and rhythm. ABDOMEN: Soft. No tenderness. LABS: Hemoglobin 6.8, white count 1.3 with a BUN of 23, creatinine 0.38. DIAGNOSTIC IMPRESSION AND PLAN: Patient with sigmoid diverticulitis with initial concern for possible perforation; also with significant neutropenia and pseudomonas bacteremia. Follow-up blood culture has been negative. The patient is currently on TPN, nothing by mouth. Currently on IV Azactam and Flagyl; to continue. Transition to oral once her oral intake has improved. Continue with supportive care. Plan of care was discussed with oncologist. MMODL / IJN: [id number] /
[2019-06-18] MEDS: FILGRASTIM-SNDZ 480 MCG/0.8 ML SYRINGE SQ SCH (17:05)
[2019-06-18 17:20] LABS: Glucose,Whole Blood 140 mg/dL (75-99)
[2019-06-18] MEDS: ATORVASTATIN 40 MG TAB PO SCH (21:07)
[2019-06-18] MEDS: 1: MVI, ADULT NO.4 WITH VIT K 10 ML, TRACE (CONC-1ML/DOSE) 1 ML, POTASSIUM ACETATE 20 ME IV SCH ×7 (23:51)
[2019-06-19] LABS: Glucose,Whole Blood 138 mg/dL (75-99)
[2019-06-19] MEDS: metroNIDAZOLE-NS PMX 500 MG in SALINE 1 100ML.BAG IVPB SCH ×3 (01:08→15:00)
[2019-06-19] MEDS: INSULIN ASPART (NovoLOG) 100 UNIT/ML VIAL SQ SCH ×3 (06:02→18:05)
[2019-06-19] MEDS: SODIUM CHLORIDE 0.9% 500 ML 500 ML IV SCH (06:04)
[2019-06-19 06:11] LABS: Glucose,Whole Blood 146 mg/dL (75-99)
[2019-06-19 08:38] LABS: African American GFR (CKD) >90 (>60 ml/min/1.73 sqM); Anion Gap 8 mmol/L; Blood Urea Nitrogen 20 mg/dL (7-17); Calcium 7.7 mg/dL (8.4-10.2); Carbon Dioxide 21 mmol/L (22-30); Chloride 109 mmol/L (98-107); Glucose 135 mg/dL (74-99); Magnesium 2.1 mg/dL (1.6-2.3); Phosphorus 3.7 mg/dL (2.5-4.5); Potassium 4.1 mmol/L (3.5-5.1); Sodium 138 mmol/L (137-145)
[2019-06-19 08:55] LABS: MCH 27.8 pg (25.0-35.0); MCHC 32.6 g/dL (31.0-37.0); MCV 85.3 fL (80.0-100.0); Mean Platelet Volume 8.8; RBC 2.18 m/uL (3.80-5.40); RDW 12.9 % (11.5-15.5)
[2019-06-19] MEDS: guaiFENesin 600 MG TABLET.ER PO SCH ×2 (08:56→22:28)
[2019-06-19] MEDS: PANTOPRAZOLE 40 MG TABLET PO SCH ×2 (08:56→18:06)
[2019-06-19] MEDS: FILGRASTIM-SNDZ 480 MCG/0.8 ML SYRINGE SQ SCH (08:56)
[2019-06-19] MEDS: ALLOPURINOL 300 MG TAB PO SCH (08:56)
[2019-06-19] MEDS: amLODIPine 5 MG TAB PO SCH ×2 (08:56→22:28)
[2019-06-19 09:09] LABS: HGB 6.1 gm/dL (11.4-16.0); WBC 0.8 k/uL (3.8-10.6)
[2019-06-19 09:10] LABS: HCT 18.6 % (34.0-46.0); Platelet Count 9 k/uL (150-450)
[2019-06-19 09:32] LABS: Poikilocytosis (M) Present
[2019-06-19] MEDS: AZTREONAM 2 GM in SODIUM CHLORIDE 0.9% 100 ML IVPB SCH ×3 (10:16→16:06)
--- NOTE | 2019-06-19 11:09 | P.PN ---
<Ghazal Mcintosh Maya - Last Filed: 06/19/19 11:03> Subjective Progress Note Date: 06/19/19 CHIEF COMPLAINT: Diverticulitis HISTORY OF PRESENT ILLNESS: Patient examined at the bedside this morning. She continues to report right upper quadrant pain, worsened with coughing. She is tolerating ice chips. No diarrhea. TPN infusing. Denies nausea or vomiting. WBC 0.8. Hemoglobin 6.1. Platelet count 9.0 PHYSICAL EXAM: VITAL SIGNS: Reviewed. GENERAL: Well-developed in no acute distress. HEENT: No sclera icterus. Extraocular movements grossly intact. Moist buccal mucosa. Head is atraumatic, normocephalic. ABDOMEN: Soft. Nondistended. Mild tenderness with palpation to right upper quadrant. No peritoneal signs. NEUROLOGIC: Alert and oriented. Cranial nerves II through XII grossly intact. ASSESSMENT: 1. Acute diverticulitis 2. Pancytopenia 3. History of breast cancer and chronic lymphocytic leukemia PLAN: 1. Continue antibiotics. Infectious disease following 2. Continue TPN for nutrition. Continue ice chips and popsicles 3. Transfusions per oncology 4. No surgical intervention recommended. Continue conservative measures. Nurse practitioner note has been reviewed by physician. Signing provider agrees with the documented findings, assessment, and plan of care. Objective - Vital Signs Vital signs: Vital Signs Temp 98 F 06/19/19 05:00 Pulse 91 06/19/19 05:00 Resp 18 06/19/19 05:00 BP 144/76 06/19/19 05:00 Pulse Ox 97 06/19/19 05:00 Intake & Output 06/18/19 06/19/19 06/19/19 18:59 06:59 18:59 Intake Total 245 115 Output Total 800 Balance -555 115 Weight 95.5 kg 93.5 kg Intake: IV 115 Sodium Chloride 0.9% 500 115 ml 500 ml @ 20 mls/hr IV .Q24H [facility] Rx#:[id number] Oral 0 Blood Product 245 Platelet Irr Pheresis 3 245 Acda Unit [id number] Output: Urine 350 Stool 450 Other: Voiding Method Bedside Commode Bedside Commode Diaper Diaper Incontinent Incontinent # Voids 3 2 - Labs CBC & Chem 7: 06/19/19 07:30 06/19/19 07:43 Labs: Abnormal Lab Results - Last 24 Hours (Table) 06/18/19 06/18/19 06/18/19 Range/Units 11:27 17:18 23:47 WBC (3.8-10.6) k/uL RBC (3.80-5.40) m/uL Hgb (11.4-16.0) gm/dL Hct (34.0-46.0) % Plt Count (150-450) k/uL Chloride (98-107) mmol/L Carbon Dioxide (22-30) mmol/L BUN (7-17) mg/dL Creatinine (0.52-1.04) mg/dL Glucose (74-99) mg/dL POC Glucose (mg/dL) 120 H 140 H 138 H (75-99) mg/dL Calcium (8.4-10.2) mg/dL 06/19/19 06/19/19 06/19/19 Range/Units 05:57 07:30 07:43 WBC 0.8 L* (3.8-10.6) k/uL RBC 2.18 L (3.80-5.40) m/uL Hgb 6.1 L* (11.4-16.0) gm/dL Hct 18.6 L* (34.0-46.0) % Plt Count 9 L* (150-450) k/uL Chloride 109 H (98-107) mmol/L Carbon Dioxide 21 L (22-30) mmol/L BUN 20 H (7-17) mg/dL Creatinine 0.36 L (0.52-1.04) mg/dL Glucose 135 H (74-99) mg/dL POC Glucose (mg/dL) 146 H (75-99) mg/dL Calcium 7.7 L (8.4-10.2) mg/dL <Nestor James - Last Filed: 06/19/19 16:32> Subjective As above. No changes in abdominal symptoms. Continue to monitor CBC. Once bone marrow recovers advance diet. Objective - Vital Signs Vital signs: Vital Signs Temp 98.1 F 06/19/19 13:50 Pulse 89 06/19/19 15:56 Resp 18 06/19/19 15:56 BP 128/74 06/19/19 13:50 Pulse Ox 98 06/19/19 13:50 Intake & Output 06/18/19 06/19/19 06/19/19 18:59 06:59 18:59 Intake Total 038 163 1941 Output Total 800 500 Balance -809 072 9038 Weight 95.5 kg 93.5 kg Intake: IV 115 Sodium Chloride 0.9% 500 115 ml 500 ml @ 20 mls/hr IV .Q24H [facility] Rx#:[id number] Intake, IV Titration 1240 Amount Aztreonam 2 gm In Sodium 200 Chloride 0.9% 100 ml @ 100 mls/hr IVPB Q8H [facility] Rx#:[id number] Potassium Acetate 20 meq 840 Calcium Gluconate 1 gm Magnesium Sulfate gm 1 gm Sodium Chloride 2.5MEQ/ ml Vial 15 meq In Amino Acid 4.25%-D10w+Lytes*E* 1,000 ml @ 70 mls/hr IV . BY DURATION [facility] Rx#: [id number] metroNIDAZOLE-NS PMX 500 200 mg In Saline 1 100ml.bag @ 100 mls/hr IVPB Q8HR [facility] Rx#:[id number] Oral 0 0 Blood Product 245 310 Platelet Irr Pheresis 3 245 Acda Unit [id number] Rc Irr As1 Unit 310 [id number] Output: Urine 350 350 Stool 450 150 Other: Voiding Method Bedside Commode Bedside Commode Bedside Commode Diaper Diaper Diaper Incontinent Incontinent Incontinent # Voids 3 2 6 - Labs CBC & Chem 7: 06/19/19 07:30 06/19/19 07:43 Labs: Abnormal Lab Results - Last 24 Hours (Table) 06/17/19 06/18/19 06/18/19 Range/Units 09:40 17:18 23:47 WBC (3.8-10.6) k/uL RBC (3.80-5.40) m/uL Hgb (11.4-16.0) gm/dL Hct (34.0-46.0) % Plt Count (150-450) k/uL Fibrinogen (200-500) mg/dL Chloride (98-107) mmol/L Carbon Dioxide (22-30) mmol/L BUN (7-17) mg/dL Creatinine (0.52-1.04) mg/dL Glucose (74-99) mg/dL POC Glucose (mg/dL) 140 H 138 H (75-99) mg/dL Calcium (8.4-10.2) mg/dL Crossmatch See Detail 06/19/19 06/19/19 06/19/19 Range/Units 05:57 07:30 07:43 WBC 0.8 L* (3.8-10.6) k/uL RBC 2.18 L (3.80-5.40) m/uL Hgb 6.1 L* (11.4-16.0) gm/dL Hct 18.6 L* (34.0-46.0) % Plt Count 9 L* (150-450) k/uL Fibrinogen (200-500) mg/dL Chloride 109 H (98-107) mmol/L Carbon Dioxide 21 L (22-30) mmol/L BUN 20 H (7-17) mg/dL Creatinine 0.36 L (0.52-1.04) mg/dL Glucose 135 H (74-99) mg/dL POC Glucose (mg/dL) 146 H (75-99) mg/dL Calcium 7.7 L (8.4-10.2) mg/dL Crossmatch 06/19/19 06/19/19 Range/Units 12:13 15:04 WBC (3.8-10.6) k/uL RBC (3.80-5.40) m/uL Hgb (11.4-16.0) gm/dL Hct (34.0-46.0) % Plt Count (150-450) k/uL Fibrinogen 890 H (200-500) mg/dL Chloride (98-107) mmol/L Carbon Dioxide (22-30) mmol/L BUN (7-17) mg/dL Creatinine (0.52-1.04) mg/dL Glucose (74-99) mg/dL POC Glucose (mg/dL) 141 H (75-99) mg/dL Calcium (8.4-10.2) mg/dL Crossmatch Assessment and Plan (1) Diverticulitis Current Visit: Yes Status: Acute Code(s): K57.92 - DVTRCLI OF INTEST, PART UNSP, W/O PERF OR ABSCESS W/O BLEED SNOMED Code(s): 552409130
--- NOTE | 2019-06-19 11:59 | P.PN ---
<Lisa Cooley - Last Filed: 06/19/19 11:57> Subjective Progress Note Date: 06/19/19 Principal diagnosis: CLL Thrombocytopenia Status post PRBC yesterday, Hemoglobin 6.1 and platlets 9K Objective - Vital Signs Vital signs: Vital Signs Temp 98.2 F 06/19/19 11:49 Pulse 85 06/19/19 11:49 Resp 18 06/19/19 11:49 BP 145/70 06/19/19 11:49 Pulse Ox 97 06/19/19 11:49 Intake & Output 06/18/19 06/19/19 06/19/19 18:59 06:59 18:59 Intake Total 245 115 0 Output Total 800 Balance -555 115 0 Weight 95.5 kg 93.5 kg Intake: IV 115 Sodium Chloride 0.9% 500 115 ml 500 ml @ 20 mls/hr IV .Q24H [facility] Rx#:[id number] Oral 0 Blood Product 245 0 Platelet Irr Pheresis 3 245 Acda Unit [id number] Rc Irr As1 Unit 0 [id number] Output: Urine 350 Stool 450 Other: Voiding Method Bedside Commode Bedside Commode Diaper Diaper Incontinent Incontinent # Voids 3 2 - Exam General: Alert and Oriented x3, No Acute Distress Head: Normocytic, left eye ptysis Neck: Supple Mouth: scabbed herpetic lesions lips resolved Eyes: Non-sclerotic No Palpable cervical, supraclavicular, axillary adenopathy Heart: Tachy Lungs: Diminished expiratory wheeze Abdomen: Soft, Non-Distended, Non-Tended, BSx4 Extremities:lower ex folet DD, petechaie rash. Neurological: Very weak Psych: Calm and cooperative - Labs CBC & Chem 7: 06/19/19 07:30 06/19/19 07:43 Labs: Abnormal Lab Results - Last 24 Hours (Table) 06/17/19 06/18/19 06/18/19 Range/Units 09:40 17:18 23:47 WBC (3.8-10.6) k/uL RBC (3.80-5.40) m/uL Hgb (11.4-16.0) gm/dL Hct (34.0-46.0) % Plt Count (150-450) k/uL Chloride (98-107) mmol/L Carbon Dioxide (22-30) mmol/L BUN (7-17) mg/dL Creatinine (0.52-1.04) mg/dL Glucose (74-99) mg/dL POC Glucose (mg/dL) 140 H 138 H (75-99) mg/dL Calcium (8.4-10.2) mg/dL Crossmatch See Detail 06/19/19 06/19/19 06/19/19 Range/Units 05:57 07:30 07:43 WBC 0.8 L* (3.8-10.6) k/uL RBC 2.18 L (3.80-5.40) m/uL Hgb 6.1 L* (11.4-16.0) gm/dL Hct 18.6 L* (34.0-46.0) % Plt Count 9 L* (150-450) k/uL Chloride 109 H (98-107) mmol/L Carbon Dioxide 21 L (22-30) mmol/L BUN 20 H (7-17) mg/dL Creatinine 0.36 L (0.52-1.04) mg/dL Glucose 135 H (74-99) mg/dL POC Glucose (mg/dL) 146 H (75-99) mg/dL Calcium 7.7 L (8.4-10.2) mg/dL Crossmatch Assessment and Plan Plan: CLL - Status PostTreatment with single agent monoclonal antibody (Rituxan) initiated inpatient 4 of 4 weekly doses on 05/07/19, 05/14/19, 05/21/19 and 05/28/19 and then Rituxan and Bendeka on 06/04/19 - due to patient' s critical condition and instability requiring ongoing hospitalization. - Monitor CBC with differential and CMP, Uric acid, LDH, Coags Labs daily - Daily follow up Pancytopenia: - Continue Supportive Care and Supportive Transfusions Refractory thrombocytopenia: Crossmatched platelets PRN, less than 10K SIRS/Sepsis: Resolved Gram Negative Bacilli Blood Cultures Psudomonas Aeruginosa - Antibiotics - ID Following Acute Hypoxic Respiratory Failure: Improved - Pulm following Hx: Breast Cancer: - Continue on Arimidex. 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 Plan: - Continue supportive care and Transfusions - Continue increase performance status and strength with PT/OT - Continue to utilized crossmatched platelets for transfusions when available - Platlets and PRBC today ordered, discussed with blood bank. (Hemoglobin 6.1 and platlets 9K today) Lisa Cooley AOCNP <Hazel,Tomy - Last Filed: 06/19/19 23:14> Objective - Vital Signs Vital signs: Vital Signs Temp 97.0 F L 06/19/19 22:28 Pulse 93 06/19/19 20:45 Resp 16 06/19/19 20:45 BP 156/74 06/19/19 20:45 Pulse Ox 97 06/19/19 20:45 Intake & Output 06/19/19 06/19/19 06/20/19 06:59 18:59 06:59 Intake Total 115 1670 210 Output Total 500 Balance 115 1170 210 Weight 93.5 kg Intake: IV 115 Sodium Chloride 0.9% 500 115 ml 500 ml @ 20 mls/hr IV .Q24H [facility] Rx#:[id number] Intake, IV Titration 1240 210 Amount Aztreonam 2 gm In Sodium 200 Chloride 0.9% 100 ml @ 100 mls/hr IVPB Q8H [facility] Rx#:[id number] Potassium Acetate 20 meq 840 210 Calcium Gluconate 1 gm Magnesium Sulfate gm 1 gm Sodium Chloride 2.5MEQ/ ml Vial 15 meq In Amino Acid 4.25%-D10w+Lytes*E* 1,000 ml @ 70 mls/hr IV . BY DURATION [facility] Rx#: [id number] metroNIDAZOLE-NS PMX 500 200 mg In Saline 1 100ml.bag @ 100 mls/hr IVPB Q8HR [facility] Rx#:[id number] Oral 120 Blood Product 310 Rc Irr As1 Unit 310 [id number] Output: Urine 350 Stool 150 Other: Voiding Method Bedside Commode Bedside Commode Diaper Diaper Incontinent Incontinent # Voids 2 6 - Labs CBC & Chem 7: 06/19/19 07:30 06/19/19 07:43 Labs: Abnormal Lab Results - Last 24 Hours (Table) 06/17/19 06/18/19 06/19/19 Range/Units 09:40 23:47 05:57 WBC (3.8-10.6) k/uL RBC (3.80-5.40) m/uL Hgb (11.4-16.0) gm/dL Hct (34.0-46.0) % Plt Count (150-450) k/uL Fibrinogen (200-500) mg/dL Chloride (98-107) mmol/L Carbon Dioxide (22-30) mmol/L BUN (7-17) mg/dL Creatinine (0.52-1.04) mg/dL Glucose (74-99) mg/dL POC Glucose (mg/dL) 138 H 146 H (75-99) mg/dL Calcium (8.4-10.2) mg/dL TIBC (228-460) ug/dL Iron Saturation (12.00-45.00) Crossmatch See Detail 06/19/19 06/19/19 06/19/19 Range/Units 07:30 07:43 12:13 WBC 0.8 L* (3.8-10.6) k/uL RBC 2.18 L (3.80-5.40) m/uL Hgb 6.1 L* (11.4-16.0) gm/dL Hct 18.6 L* (34.0-46.0) % Plt Count 9 L* (150-450) k/uL Fibrinogen (200-500) mg/dL Chloride 109 H (98-107) mmol/L Carbon Dioxide 21 L (22-30) mmol/L BUN 20 H (7-17) mg/dL Creatinine 0.36 L (0.52-1.04) mg/dL Glucose 135 H (74-99) mg/dL POC Glucose (mg/dL) 141 H (75-99) mg/dL Calcium 7.7 L (8.4-10.2) mg/dL TIBC (228-460) ug/dL Iron Saturation (12.00-45.00) Crossmatch 06/19/19 06/19/19 06/19/19 Range/Units 15:04 15:04 17:57 WBC (3.8-10.6) k/uL RBC (3.80-5.40) m/uL Hgb (11.4-16.0) gm/dL Hct (34.0-46.0) % Plt Count (150-450) k/uL Fibrinogen 890 H (200-500) mg/dL Chloride (98-107) mmol/L Carbon Dioxide (22-30) mmol/L BUN (7-17) mg/dL Creatinine (0.52-1.04) mg/dL Glucose (74-99) mg/dL POC Glucose (mg/dL) 157 H (75-99) mg/dL Calcium (8.4-10.2) mg/dL TIBC 163 L (228-460) ug/dL Iron Saturation 68.71 H (12.00-45.00) Crossmatch Assessment and Plan (1) Diverticulitis Current Visit: Yes Status: Acute Code(s): K57.92 - DVTRCLI OF INTEST, PART UNSP, W/O PERF OR ABSCESS W/O BLEED SNOMED Code(s): 454000245 (2) Abnormal CT scan, kidney Current Visit: Yes Status: Acute Code(s): R93.429 - ABNORMAL RADIOLOGIC FINDINGS ON DX IMAGING OF UNSP KIDNEY SNOMED Code(s): 646399555 (3) Pancytopenia Current Visit: Yes Status: Acute Priority: High Code(s): D61.818 - OTHER PANCYTOPENIA SNOMED Code(s): 995452153 (4) CLL (chronic lymphocytic leukemia) Current Visit: Yes Status: Chronic Priority: High Code(s): C91.90 - LYMPHOID LEUKEMIA, UNSPECIFIED NOT HAVING ACHIEVED REMISSION SNOMED Code(s): 13061893 (5) Physical debility Current Visit: Yes Status: Acute Priority: High Code(s): R53.81 - OTHER MALAISE SNOMED Code(s): 23340211 Plan: as above patient seen and evaluated. She will receive supportive transfusions today. We will try to cautiously advance diet to small amounts of clear liquids, assuming that she does not have any progressive abdominal symptoms. If counts have not shown any response over the next 2-3 days, bone marrow aspiration biopsy will be repeated early next week.
[2019-06-19 12:13] LABS: Glucose,Whole Blood 141 mg/dL (75-99)
[2019-06-19] MEDS: FUROSEMIDE 10 MG/ML 4 ML VIAL IV SCH (14:35)
[2019-06-19] MEDS: 1: MVI, ADULT NO.4 WITH VIT K 10 ML, TRACE (CONC-1ML/DOSE) 1 ML, POTASSIUM ACETATE 20 ME IV SCH ×7 (14:36)
[2019-06-19 15:52] LABS: INR 1.1 (<1.2); Partial Thromboplastin Time 25.4 sec (22.0-30.0); Prothrombin Time 11.5 sec (9.0-12.0)
--- NOTE | 2019-06-19 16:41 | P.PN ---
Subjective Progress Note Date: 06/19/19 Principal diagnosis: This is a 73-year-old woman who was admitted with pancytopenia, sepsis, acute hypoxic respiratory failure, hypokalemia and was currently receiving chemotherapy for chronic lymphoid leukemia and is being closely monitored. Patient is being followed by multiple consultations including oncology surgery, infectious disease, and pulmonary. This morning patient was nauseated with some vomiting noted that was relieved with Zofran. Patient's platelets this morning were 6 and currently receiving a transfusion at this time. Hemoglobin is 7.4 and will continue to monitor closely. Current potassium is 4.1. Patient is lying in bed in no acute distress stating that she feels fatigued and weak and unable to increase her energy and strength. PT/OT is following. Guarded prognosis. 06/12/2019 Patient is sitting up in bed in no acute distress. No increase in nausea or vomiting today. Patient is tolerating full liquids at this time and may advance as tolerated. Patient denies any other issues overnight. Patient denies any chest pain, shortness of breath, or palpitations at this time. Patient remains afebrile. Patient is still having some abdominal discomfort in the lower rib cage area on the sides due to her cough she states. Will continue to monitor closely. Hematology oncology is following closely. Guarded prognosis. 06/13/2019 Patient is sitting up in bed in no acute distress. A friend or family at the bedside visiting. Patient is tolerating diet and denies any nausea or vomiting at this time. Diet has been advanced. Patient denies any chest pain, shortness of breath, or palpitations at this time. Patient did have a low-grade fever today. Infectious disease is following. Patient antibiotics are currently oral Cipro and Flagyl and will continue. Patient is requesting something more for the cough as she continues to have a cough with no phlegm production. Robitussin-AC was ordered. Patient states that Tessalon Perles were not helping. Patient is having some mild side pain at her ribs due to the cough. PT/OT are following. Patient has not had the strength to get up and work with them at this time. Will continue to encourage working with PT/OT. Patient's hemoglobin and platelets have much improved today. Patient's hemoglobin is 7.8 and platelets are 22. Oncology is following closely. Discussed with the patient at length today about rehab as it would not be in her best interest to return home at this time due to the weakness and fatigue. Patient has agreed to a rehab. Case management and social work are working on possible placement. Dr. Da Silva was consulted and awaiting report. Guarded prognosis. 06/17/2019 This is a 73-year-old woman who was admitted with multiple complex medical issue s with severe pancytopenia, leukopenia, and significant thrombocytopenia, CLL on chemotherapy and is being closely monitored. Hematology/oncology Dr. Oliva is following closely and patient is to remain nothing by mouth except educations, ice chips, popsicles. The patient is currently being maintained on TPN. Patient continues to have mild upper abdominal discomfort on the left and right sides the patient states it is due to the cough that she is still experiencing. Patient is very fatigued and lethargic today. Patient's hemoglobin today is 6.5 and her platelet count is 5. Patient is going to be transfused with 1 unit PRBC and 1 unit of platelets. Will continue to monitor labs closely. Patient seems more sad and discouraged today after receiving her lab values and states she just doesn't understand why nothing is improving. Discussed with the patient at length today about these findings and will continue to monitor. Family is at the bedside. Guarded prognosis. 06/18/2019 Patient is sitting up at the chair in no acute distress. Patients platelet count was low today again current platelet count is 9 and currently awaiting transfusion. Hemoglobin is 6.8 and will be transfused as well. Dr. Oliva is following closely. Patient continues to be nothing by mouth at this time except for medications and ice chips. Patient is still having a lot of mid abdominal pain and discomfort due to her cough. Patient is taking Robitussin-AC for the cough. Patient denies any chest pain, shortness of breath, or palpitations at this time. Patient denies any nausea or vomiting and is currently nothing by mouth and on TPN. patient is currently afebrile. Chest x-ray done yesterday sh ows right upper lobe opacities that are stable with new perihilar and left costophrenic angle opacities. Multifocal pneumonia is likely. Infectious disease is following. Patient is currently on IV antibiotics in the form of Aztreonam and Flagyl. Guarded prognosis. 06/19/2019 Patient is sitting up in the chair in no acute distress. Patient did not receive a unit of packed red blood cells yesterday and hemoglobin today is 6.1. There is a unit ready per lab and will be transfused after antibiotics have finished. Platelets today are 9 and will be transfused later today. Patient continues to be nothing by mouth except for medications and ice chips at this time still. Patient states there are no new changes from yesterday and is still having a dry hacking cough with discomfort on the sides of her abdomen near her rib cage. Patient is denying any chest pain or shortness of breath at this time. Patient is afebrile. Patient continues to have a decrease in strength and is going back to bed to rest issue as she will be working with PT/OT this afternoon. Family is at the bedside. Chest x-ray yesterday shows some increase in volume and patient will be given IV Lasix 40 mg daily. Influenza testing will also be done and is currently pending. Guarded prognosis. Objective - Vital Signs Vital signs: Vital Signs Temp 98.1 F 06/19/19 13:50 Pulse 89 06/19/19 15:56 Resp 18 06/19/19 15:56 BP 128/74 06/19/19 13:50 Pulse Ox 98 06/19/19 13:50 Intake & Output 06/18/19 06/19/19 06/19/19 18:59 06:59 18:59 Intake Total 828 015 3968 Output Total 800 500 Balance -064 775 6074 Weight 95.5 kg 93.5 kg Intake: IV 115 Sodium Chloride 0.9% 500 115 ml 500 ml @ 20 mls/hr IV .Q24H [facility] Rx#:[id number] Intake, IV Titration 1240 Amount Aztreonam 2 gm In Sodium 200 Chloride 0.9% 100 ml @ 100 mls/hr IVPB Q8H [facility] Rx#:[id number] Potassium Acetate 20 meq 840 Calcium Gluconate 1 gm Magnesium Sulfate gm 1 gm Sodium Chloride 2.5MEQ/ ml Vial 15 meq In Amino Acid 4.25%-D10w+Lytes*E* 1,000 ml @ 70 mls/hr IV . BY DURATION [facility] Rx#: [id number] metroNIDAZOLE-NS PMX 500 200 mg In Saline 1 100ml.bag @ 100 mls/hr IVPB Q8HR [facility] Rx#:[id number] Oral 0 0 Blood Product 245 310 Platelet Irr Pheresis 3 245 Acda Unit [id number] Rc Irr As1 Unit 310 [id number] Output: Urine 350 350 Stool 450 150 Other: Voiding Method Bedside Commode Bedside Commode Bedside Commode Diaper Diaper Diaper Incontinent Incontinent Incontinent # Voids 3 2 6 - Exam Gen: This is a 73-year-old female sitting up in a chair in no acute distress. Vital signs are stable. Temp is 98.2 F, pulse is 85, respirations are 18, bloo d pressure is 145/70, oxygen saturation is 97% on room air. HEENT: Head is atraumatic, normocephalic. Pupils equal, round. Sclerae is anicteric. Oral mucosa is dry and pale. Left eyelid closed NECK: Supple. No JVD. No lymphadenopathy. No thyromegaly. LUNGS: Diminished breath sounds at the bases with a few scattered rhonchi noted. no wheezing noted on exam. No intercostal retractions. HEART: S1 and S2 are muffled. No murmur. ABDOMEN: Soft. Bowel sounds are present. No masses. Mild tenderness bilaterally upon palpation underneath the rib cage. Slightly improved from yesterday EXTREMITIES: No pedal edema. No calf tenderness. NEUROLOGICAL: Patient is lethargic but awake, alert and oriented x3. Cranial nerves 2 through 12 are grossly intact. - Labs CBC & Chem 7: 06/19/19 07:30 06/19/19 07:43 Labs: Abnormal Lab Results - Last 24 Hours (Table) 06/17/19 06/18/19 06/18/19 Range/Units 09:40 17:18 23:47 WBC (3.8-10.6) k/uL RBC (3.80-5.40) m/uL Hgb (11.4-16.0) gm/dL Hct (34.0-46.0) % Plt Count (150-450) k/uL Fibrinogen (200-500) mg/dL Chloride (98-107) mmol/L Carbon Dioxide (22-30) mmol/L BUN (7-17) mg/dL Creatinine (0.52-1.04) mg/dL Glucose (74-99) mg/dL POC Glucose (mg/dL) 140 H 138 H (75-99) mg/dL Calcium (8.4-10.2) mg/dL Crossmatch See Detail 06/19/19 06/19/19 06/19/19 Range/Units 05:57 07:30 07:43 WBC 0.8 L* (3.8-10.6) k/uL RBC 2.18 L (3.80-5.40) m/uL Hgb 6.1 L* (11.4-16.0) gm/dL Hct 18.6 L* (34.0-46.0) % Plt Count 9 L* (150-450) k/uL Fibrinogen (200-500) mg/dL Chloride 109 H (98-107) mmol/L Carbon Dioxide 21 L (22-30) mmol/L BUN 20 H (7-17) mg/dL Creatinine 0.36 L (0.52-1.04) mg/dL Glucose 135 H (74-99) mg/dL POC Glucose (mg/dL) 146 H (75-99) mg/dL Calcium 7.7 L (8.4-10.2) mg/dL Crossmatch 06/19/19 06/19/19 Range/Units 12:13 15:04 WBC (3.8-10.6) k/uL RBC (3.80-5.40) m/uL Hgb (11.4-16.0) gm/dL Hct (34.0-46.0) % Plt Count (150-450) k/uL Fibrinogen 890 H (200-500) mg/dL Chloride (98-107) mmol/L Carbon Dioxide (22-30) mmol/L BUN (7-17) mg/dL Creatinine (0.52-1.04) mg/dL Glucose (74-99) mg/dL POC Glucose (mg/dL) 141 H (75-99) mg/dL Calcium (8.4-10.2) mg/dL Crossmatch Assessment and Plan Assessment: Severe pancytopenia, neutropenia, and thrombocytopenia secondary to chronic lymphoid leukemia on chemotherapy Severe thrombocytopenia requiring multiple platelet transfusions. Platelets today are 9. Hemoglobin is 6.8. Patient is receiving transfusions of PRBCs and platelets today once eradicated Pseudomonas sepsis with neutropenic sepsis, present on admission Acute hypoxic respiratory failure, multifactorial, present on admission Possible acute sigmoid diverticulitis, diverticular abscess in the computed tomography scan Evolving right subscapular and intraparenchymal renal hematoma, stable in size Cholelithiasis History of breast cancer History of gastrointestinal stromal neoplasm History of HSV, lips and mucositis hypokalemia, current potassium is 4.1 Myopathy related to chronic illness Hypertension Hyperlipidemia History of gait dysfunction History of degenerative joint disease History of sleep apnea Obesity with body mass index of 41.1 Petechial rash of lower extremities Remote history of nicotine dependence Full code Recommendations and discussion: Recommend continue current medications, management, and symptomatic treatment. Multiple medical consultations are following closely. Influenza testing is negative at this time. Per oncology platelets are to be transfused today as her platelet count is 9. Hemoglobin is 6.1 and will be receiving 1 unit of PRBCs. Patient denies any episodes of nausea or vomiting today is being maintained on TPN. Infectious disease is following closely. Extremely guarded prognosis. Further recommendations to follow. Case management and social media project manager following closely. Once the patient is improved and stabilized, PT/OT and possible ECF rehab.
[2019-06-19 17:58] LABS: Glucose,Whole Blood 157 mg/dL (75-99)
[2019-06-19 20:20] LABS: Iron Saturation 68.71 (12.00-45.00)
[2019-06-19] MEDS: ONDANSETRON 4 MG/2 ML VIAL IVP PRN (20:28)
[2019-06-19] MEDS: ACETAMINOPHEN TAB 325 MG TAB PO PRN (20:55)
--- NOTE | 2019-06-19 21:00 | PN ---
PROGRESS NOTE DATE OF SERVICE: 06/19/2019 REASON FOR FOLLOWUP: Diverticulitis and pseudomonal bacteremia. INTERVAL HISTORY: The patient is currently afebrile. The patient to be cough which has been mostly a dry hacking cough, postnasal drip, but not severe. No chest pain. No nausea, no vomiting, no abdominal pain. Still has some diarrhea, though. PHYSICAL EXAMINATION: Her blood pressure is 122/74 with a pulse of 87, temperature 98.1. She is 98% on room air. General description is an elderly female up in the bed in no distress. RESPIRATORY SYSTEM: Unlabored breathing with decreased intensity of breath sounds. No wheeze. HEART: S1, S2. Regular rate and rhythm. ABDOMEN: Soft. No tenderness. LABS: Hemoglobin 6.1, white count 0.8. BUN of 20, creatinine 0.36. DIAGNOSTIC IMPRESSION AND PLAN: Patient with pseudomonas bacteremia in this patient who did have evidence of diverticulitis, currently on total parenteral nutrition. Continue with IV Azactam, Flagyl and Tessalon Perles for her dry, irritating cough and monitor clinical course closely. MMODL / IJN: [id number] /
[2019-06-19] MEDS: ATORVASTATIN 40 MG TAB PO SCH (22:28)
[2019-06-20 00:11] LABS: Glucose,Whole Blood 146 mg/dL (75-99)
[2019-06-20] MEDS: ACETAMINOPHEN TAB 325 MG TAB PO PRN (01:05)
[2019-06-20] MEDS: INSULIN ASPART (NovoLOG) 100 UNIT/ML VIAL SQ SCH ×4 (01:05→18:16)
[2019-06-20] MEDS: metroNIDAZOLE-NS PMX 500 MG in SALINE 1 100ML.BAG IVPB SCH ×3 (01:36→17:10)
[2019-06-20] MEDS: AZTREONAM 2 GM in SODIUM CHLORIDE 0.9% 100 ML IVPB SCH ×3 (03:05→18:16)
[2019-06-20 05:38] LABS: Glucose,Whole Blood 159 mg/dL (75-99)
[2019-06-20] MEDS: 1: MVI, ADULT NO.4 WITH VIT K 10 ML, TRACE (CONC-1ML/DOSE) 1 ML, POTASSIUM ACETATE 20 ME IV SCH ×14 (05:53→20:42)
[2019-06-20] MEDS: SODIUM CHLORIDE 0.9% 500 ML 500 ML IV SCH (05:57)
[2019-06-20] MEDS: ONDANSETRON 4 MG/2 ML VIAL IVP PRN (06:18)
[2019-06-20] MEDS: ALLOPURINOL 300 MG TAB PO SCH (08:08)
[2019-06-20] MEDS: guaiFENesin 600 MG TABLET.ER PO SCH ×2 (08:08→20:37)
[2019-06-20] MEDS: amLODIPine 5 MG TAB PO SCH ×2 (08:08→20:37)
[2019-06-20] MEDS: FILGRASTIM-SNDZ 480 MCG/0.8 ML SYRINGE SQ SCH (08:08)
[2019-06-20] MEDS: FUROSEMIDE 10 MG/ML 4 ML VIAL IV SCH (08:08)
[2019-06-20] MEDS: PANTOPRAZOLE 40 MG TABLET PO SCH ×2 (08:11→17:10)
[2019-06-20] MEDS: SENNOSIDES-DOCUSATE SODIUM 1 EACH TAB PO PRN (08:17)
[2019-06-20 10:21] LABS: ALT 20 U/L (9-52); AST 12 U/L (14-36); African American GFR (CKD) >90 (>60 ml/min/1.73 sqM); Albumin 3.2 g/dL (3.5-5.0); Alkaline Phosphatase 49 U/L (38-126); Anion Gap 9 mmol/L; Blood Urea Nitrogen 19 mg/dL (7-17); Carbon Dioxide 23 mmol/L (22-30); Chloride 106 mmol/L (98-107); Glucose 134 mg/dL (74-99); Magnesium 1.8 mg/dL (1.6-2.3); Phosphorus 3.7 mg/dL (2.5-4.5); Potassium 3.9 mmol/L (3.5-5.1); Sodium 138 mmol/L (137-145); Total Bilirubin 0.5 mg/dL (0.2-1.3); Total Protein 5.5 g/dL (6.3-8.2)
[2019-06-20] MEDS: FAT EMULSION 20% 250 ML IV SCH (10:26)
[2019-06-20] MEDS: guaiFENesin-Coden 100-10MG/5ML 10 ML CUP PO PRN ×2 (10:27→20:37)
[2019-06-20 10:35] LABS: Basophils % (A) 0 %; Eosinophils % (A) 2 %; HCT 21.6 % (34.0-46.0); HGB 7.4 gm/dL (11.4-16.0); Lymphocytes # (A) 0.9 k/uL (1.0-4.8); Lymphocytes % (A) 77 %; MCH 29.1 pg (25.0-35.0); MCHC 34.3 g/dL (31.0-37.0); MCV 84.9 fL (80.0-100.0); Mean Platelet Volume 7.5; Monocytes % (A) 1 %; Neutrophils % (A) 17 %; RBC 2.54 m/uL (3.80-5.40); RDW 13.2 % (11.5-15.5)
[2019-06-20 10:37] LABS: WBC 1.2 k/uL (3.8-10.6)
[2019-06-20 10:40] LABS: Platelet Count 15 k/uL (150-450)
[2019-06-20 11:02] LABS: Neutrophils # (A) 0.2 k/uL (1.3-7.7)
[2019-06-20 11:13] LABS: Glucose,Whole Blood 160 mg/dL (75-99)
--- NOTE | 2019-06-20 12:07 | P.PN ---
<Ghazal Mcintosh Maya - Last Filed: 06/20/19 12:06> Subjective Progress Note Date: 06/20/19 CHIEF COMPLAINT: Diverticulitis HISTORY OF PRESENT ILLNESS: Patient examined at the bedside this morning. She denies abdominal pain this morning. She reports persistent cough. She reports episode of dry heaves overnight secondary to coughing so hard she began gagging. She denies further nausea or vomiting. She has been started on clear liquid diet this morning. WBC 1.2. Hemoglobin 7.4. Platelet count 15. PHYSICAL EXAM: VITAL SIGNS: Reviewed. GENERAL: Well-developed in no acute distress. HEENT: No sclera icterus. Extraocular movements grossly intact. Moist buccal mucosa. Head is atraumatic, normocephalic. ABDOMEN: Soft. Nondistended. Minimal tenderness with palpation to right upper quadrant. No peritoneal signs. NEUROLOGIC: Alert and oriented. Cranial nerves II through XII grossly intact. ASSESSMENT: 1. Acute diverticulitis 2. Pancytopenia 3. History of breast cancer and chronic lymphocytic leukemia PLAN: 1. Continue antibiotics. Infectious disease following 2. Continue TPN for nutrition. Continue clear liquid diet. 3. Transfusions per oncology 4. No surgical intervention recommended. Continue conservative measures. Nurse practitioner note has been reviewed by physician. Signing provider agrees with the documented findings, assessment, and plan of care. Objective - Vital Signs Vital signs: Vital Signs Temp 99.6 F 06/20/19 11:13 Pulse 87 06/20/19 11:13 Resp 16 06/20/19 11:13 BP 131/77 06/20/19 11:13 Pulse Ox 96 06/20/19 11:13 Intake & Output 06/19/19 06/20/19 06/20/19 18:59 06:59 18:59 Intake Total 2711 1088 Output Total 500 150 Balance 2211 938 Weight 93.5 kg Intake: Intake, IV Titration 6048 705 Amount Aztreonam 2 gm In Sodium 200 Chloride 0.9% 100 ml @ 100 mls/hr IVPB Q8H [facility] Rx#:[id number] Mvi, Adult No.4 with Vit 1041 K 10 ml Trace (Conc-1Ml/ Dose) 1 ml Potassium Acetate 20 meq Calcium Gluconate 1 gm Magnesium Sulfate gm 2 gm Sodium Chloride 2.5MEQ/ml Vial 15 meq In Amino Acid 4.25 %-D10w+Lytes*E* 1,000 ml @ 70 mls/hr IV .BY DURATION [facility] Rx#: [id number] Potassium Acetate 20 meq 840 770 Calcium Gluconate 1 gm Magnesium Sulfate gm 1 gm Sodium Chloride 2.5MEQ/ ml Vial 15 meq In Amino Acid 4.25%-D10w+Lytes*E* 1,000 ml @ 70 mls/hr IV . BY DURATION [facility] Rx#: [id number] metroNIDAZOLE-NS PMX 500 200 mg In Saline 1 100ml.bag @ 100 mls/hr IVPB Q8HR [facility] Rx#:[id number] Oral 120 Blood Product 310 318 Platelet Irr Pheresis 318 Acda1 Unit [id number] Rc Irr As1 Unit 310 [id number] Output: Urine 350 Stool 150 150 Other: Voiding Method Bedside Commode Bedside Commode Bedside Commode Diaper Diaper Diaper Incontinent Incontinent Incontinent # Voids 6 3 - Labs CBC & Chem 7: 06/20/19 09:28 06/20/19 09:28 Labs: Abnormal Lab Results - Last 24 Hours (Table) 06/17/19 06/19/19 06/19/19 Range/Units 09:40 12:13 15:04 WBC (3.8-10.6) k/uL RBC (3.80-5.40) m/uL Hgb (11.4-16.0) gm/dL Hct (34.0-46.0) % Plt Count (150-450) k/uL Neutrophils # (1.3-7.7) k/uL Lymphocytes # (1.0-4.8) k/uL Fibrinogen 890 H (200-500) mg/dL BUN (7-17) mg/dL Creatinine (0.52-1.04) mg/dL Glucose (74-99) mg/dL POC Glucose (mg/dL) 141 H (75-99) mg/dL Calcium (8.4-10.2) mg/dL TIBC (228-460) ug/dL Iron Saturation (12.00-45.00) AST (14-36) U/L Total Protein (6.3-8.2) g/dL Albumin (3.5-5.0) g/dL Crossmatch See Detail 06/19/19 06/19/19 06/20/19 Range/Units 15:04 17:57 00:09 WBC (3.8-10.6) k/uL RBC (3.80-5.40) m/uL Hgb (11.4-16.0) gm/dL Hct (34.0-46.0) % Plt Count (150-450) k/uL Neutrophils # (1.3-7.7) k/uL Lymphocytes # (1.0-4.8) k/uL Fibrinogen (200-500) mg/dL BUN (7-17) mg/dL Creatinine (0.52-1.04) mg/dL Glucose (74-99) mg/dL POC Glucose (mg/dL) 157 H 146 H (75-99) mg/dL Calcium (8.4-10.2) mg/dL TIBC 163 L (228-460) ug/dL Iron Saturation 68.71 H (12.00-45.00) AST (14-36) U/L Total Protein (6.3-8.2) g/dL Albumin (3.5-5.0) g/dL Crossmatch 06/20/19 06/20/19 06/20/19 Range/Units 05:36 09:28 09:28 WBC 1.2 L* (3.8-10.6) k/uL RBC 2.54 L (3.80-5.40) m/uL Hgb 7.4 L (11.4-16.0) gm/dL Hct 21.6 L (34.0-46.0) % Plt Count 15 L* D (150-450) k/uL Neutrophils # 0.2 L* (1.3-7.7) k/uL Lymphocytes # 0.9 L (1.0-4.8) k/uL Fibrinogen (200-500) mg/dL BUN 19 H (7-17) mg/dL Creatinine 0.35 L (0.52-1.04) mg/dL Glucose 134 H (74-99) mg/dL POC Glucose (mg/dL) 159 H (75-99) mg/dL Calcium 8.0 L (8.4-10.2) mg/dL TIBC (228-460) ug/dL Iron Saturation (12.00-45.00) AST 12 L (14-36) U/L Total Protein 5.5 L (6.3-8.2) g/dL Albumin 3.2 L (3.5-5.0) g/dL Crossmatch 06/20/19 Range/Units 11:12 WBC (3.8-10.6) k/uL RBC (3.80-5.40) m/uL Hgb (11.4-16.0) gm/dL Hct (34.0-46.0) % Plt Count (150-450) k/uL Neutrophils # (1.3-7.7) k/uL Lymphocytes # (1.0-4.8) k/uL Fibrinogen (200-500) mg/dL BUN (7-17) mg/dL Creatinine (0.52-1.04) mg/dL Glucose (74-99) mg/dL POC Glucose (mg/dL) 160 H (75-99) mg/dL Calcium (8.4-10.2) mg/dL TIBC (228-460) ug/dL Iron Saturation (12.00-45.00) AST (14-36) U/L Total Protein (6.3-8.2) g/dL Albumin (3.5-5.0) g/dL Crossmatch <Nestor James - Last Filed: 06/20/19 16:35> Subjective Patient doing about the same. She did have some abdominal pain temporarily last night which resolved having a bowel movement. Otherwise doing well. Tolerating clears which were started this morning. No nausea or vomiting. I will be unavailable for the next week or so. Dr. Zamudio will be covering in my absence. We'll sign off for now. Please contact our service if needed. Objective - Vital Signs Vital signs: Vital Signs Temp 99.6 F 06/20/19 11:13 Pulse 87 06/20/19 11:13 Resp 16 06/20/19 11:13 BP 131/77 06/20/19 11:13 Pulse Ox 96 06/20/19 11:13 Intake & Output 06/19/19 06/20/19 06/20/19 18:59 06:59 18:59 Intake Total 2711 1088 Output Total 500 150 Balance 9137 938 Weight 93.5 kg Intake: Intake, IV Titration 7429 035 Amount Aztreonam 2 gm In Sodium 200 Chloride 0.9% 100 ml @ 100 mls/hr IVPB Q8H [facility] Rx#:[id number] Mvi, Adult No.4 with Vit 1041 K 10 ml Trace (Conc-1Ml/ Dose) 1 ml Potassium Acetate 20 meq Calcium Gluconate 1 gm Magnesium Sulfate gm 2 gm Sodium Chloride 2.5MEQ/ml Vial 15 meq In Amino Acid 4.25 %-D10w+Lytes*E* 1,000 ml @ 70 mls/hr IV .BY D[facility] Rx#: [id number] Potassium Acetate 20 meq 840 770 Calcium Gluconate 1 gm Magnesium Sulfate gm 1 gm Sodium Chloride 2.5MEQ/ ml Vial 15 meq In Amino Acid 4.25%-D10w+Lytes*E* 1,000 ml @ 70 mls/hr IV . BY DURATION [facility] Rx#: [id number] metroNIDAZOLE-NS PMX 500 200 mg In Saline 1 100ml.bag @ 100 mls/hr IVPB Q8HR [facility] Rx#:[id number] Oral 120 Blood Product 310 318 Platelet Irr Pheresis 318 Acda1 Unit [id number] Rc Irr As1 Unit 310 [id number] Output: Urine 350 Stool 150 150 Other: Voiding Method Bedside Commode Bedside Commode Bedside Commode Diaper Diaper Diaper Incontinent Incontinent Incontinent # Voids 6 3 2 - Labs CBC & Chem 7: 06/20/19 09:28 06/20/19 09:28 Labs: Abnormal Lab Results - Last 24 Hours (Table) 06/19/19 06/19/19 06/20/19 Range/Units 15:04 17:57 00:09 WBC (3.8-10.6) k/uL RBC (3.80-5.40) m/uL Hgb (11.4-16.0) gm/dL Hct (34.0-46.0) % Plt Count (150-450) k/uL Neutrophils # (1.3-7.7) k/uL Lymphocytes # (1.0-4.8) k/uL BUN (7-17) mg/dL Creatinine (0.52-1.04) mg/dL Glucose (74-99) mg/dL POC Glucose (mg/dL) 157 H 146 H (75-99) mg/dL Calcium (8.4-10.2) mg/dL TIBC 163 L (228-460) ug/dL Iron Saturation 68.71 H (12.00-45.00) AST (14-36) U/L Total Protein (6.3-8.2) g/dL Albumin (3.5-5.0) g/dL 06/20/19 06/20/19 06/20/19 Range/Units 05:36 09:28 09:28 WBC 1.2 L* (3.8-10.6) k/uL RBC 2.54 L (3.80-5.40) m/uL Hgb 7.4 L (11.4-16.0) gm/dL Hct 21.6 L (34.0-46.0) % Plt Count 15 L* D (150-450) k/uL Neutrophils # 0.2 L* (1.3-7.7) k/uL Lymphocytes # 0.9 L (1.0-4.8) k/uL BUN 19 H (7-17) mg/dL Creatinine 0.35 L (0.52-1.04) mg/dL Glucose 134 H (74-99) mg/dL POC Glucose (mg/dL) 159 H (75-99) mg/dL Calcium 8.0 L (8.4-10.2) mg/dL TIBC (228-460) ug/dL Iron Saturation (12.00-45.00) AST 12 L (14-36) U/L Total Protein 5.5 L (6.3-8.2) g/dL Albumin 3.2 L (3.5-5.0) g/dL 06/20/19 Range/Units 11:12 WBC (3.8-10.6) k/uL RBC (3.80-5.40) m/uL Hgb (11.4-16.0) gm/dL Hct (34.0-46.0) % Plt Count (150-450) k/uL Neutrophils # (1.3-7.7) k/uL Lymphocytes # (1.0-4.8) k/uL BUN (7-17) mg/dL Creatinine (0.52-1.04) mg/dL Glucose (74-99) mg/dL POC Glucose (mg/dL) 160 H (75-99) mg/dL Calcium (8.4-10.2) mg/dL TIBC (228-460) ug/dL Iron Saturation (12.00-45.00) AST (14-36) U/L Total Protein (6.3-8.2) g/dL Albumin (3.5-5.0) g/dL Assessment and Plan (1) Diverticulitis Current Visit: Yes Status: Acute Code(s): K57.92 - DVTRCLI OF INTEST, PART UNSP, W/O PERF OR ABSCESS W/O BLEED SNOMED Code(s): 487262351
[2019-06-20] MEDS: traMADol 50 MG TAB PO PRN ×2 (12:32→19:37)
[2019-06-20] MEDS: BENZONATATE 100 MG CAP PO PRN ×2 (12:32→20:37)
--- NOTE | 2019-06-20 15:18 | P.PN ---
Subjective Progress Note Date: 06/20/19 Principal diagnosis: CLL Thrombocytopenia Lbas improved, no need for transfusion today Objective - Vital Signs Vital signs: Vital Signs Temp 99.6 F 06/20/19 11:13 Pulse 87 06/20/19 11:13 Resp 16 06/20/19 11:13 BP 131/77 06/20/19 11:13 Pulse Ox 96 06/20/19 11:13 Intake & Output 06/19/19 06/20/19 06/20/19 18:59 06:59 18:59 Intake Total 2711 1088 Output Total 500 150 Balance 2211 938 Weight 93.5 kg Intake: Intake, IV Titration 2281 770 Amount Aztreonam 2 gm In Sodium 200 Chloride 0.9% 100 ml @ 100 mls/hr IVPB Q8H [facility] Rx#:[id number] Mvi, Adult No.4 with Vit 1041 K 10 ml Trace (Conc-1Ml/ Dose) 1 ml Potassium Acetate 20 meq Calcium Gluconate 1 gm Magnesium Sulfate gm 2 gm Sodium Chloride 2.5MEQ/ml Vial 15 meq In Amino Acid 4.25 %-D10w+Lytes*E* 1,000 ml @ 70 mls/hr IV .BY DURATION [facility] Rx#: [id number] Potassium Acetate 20 meq 840 770 Calcium Gluconate 1 gm Magnesium Sulfate gm 1 gm Sodium Chloride 2.5MEQ/ ml Vial 15 meq In Amino Acid 4.25%-D10w+Lytes*E* 1,000 ml @ 70 mls/hr IV . BY DURATION [facility] Rx#: [id number] metroNIDAZOLE-NS PMX 500 200 mg In Saline 1 100ml.bag @ 100 mls/hr IVPB Q8HR [facility] Rx#:[id number] Oral 120 Blood Product 310 318 Platelet Irr Pheresis 318 Acda1 Unit [id number] Rc Irr As1 Unit 310 [id number] Output: Urine 350 Stool 150 150 Other: Voiding Method Bedside Commode Bedside Commode Bedside Commode Diaper Diaper Diaper Incontinent Incontinent Incontinent # Voids 6 3 - Exam General: Alert and Oriented x3, No Acute Distress Head: Normocytic, left eye ptysis Neck: Supple Mouth: scabbed herpetic lesions lips resolved Eyes: Non-sclerotic No Palpable cervical, supraclavicular, axillary adenopathy Heart: Tachy Lungs: Diminished expiratory wheeze Abdomen: Soft, Non-Distended, Non-Tended, BSx4 Extremities:lower ex folet DD, petechaie rash. Neurological: Very weak Psych: Calm and cooperative - Labs CBC & Chem 7: 06/20/19 09:28 06/20/19 09:28 Labs: Abnormal Lab Results - Last 24 Hours (Table) 06/17/19 06/19/19 06/19/19 Range/Units 09:40 15:04 15:04 WBC (3.8-10.6) k/uL RBC (3.80-5.40) m/uL Hgb (11.4-16.0) gm/dL Hct (34.0-46.0) % Plt Count (150-450) k/uL Neutrophils # (1.3-7.7) k/uL Lymphocytes # (1.0-4.8) k/uL Fibrinogen 890 H (200-500) mg/dL BUN (7-17) mg/dL Creatinine (0.52-1.04) mg/dL Glucose (74-99) mg/dL POC Glucose (mg/dL) (75-99) mg/dL Calcium (8.4-10.2) mg/dL TIBC 163 L (228-460) ug/dL Iron Saturation 68.71 H (12.00-45.00) AST (14-36) U/L Total Protein (6.3-8.2) g/dL Albumin (3.5-5.0) g/dL Crossmatch See Detail 06/19/19 06/20/19 06/20/19 Range/Units 17:57 00:09 05:36 WBC (3.8-10.6) k/uL RBC (3.80-5.40) m/uL Hgb (11.4-16.0) gm/dL Hct (34.0-46.0) % Plt Count (150-450) k/uL Neutrophils # (1.3-7.7) k/uL Lymphocytes # (1.0-4.8) k/uL Fibrinogen (200-500) mg/dL BUN (7-17) mg/dL Creatinine (0.52-1.04) mg/dL Glucose (74-99) mg/dL POC Glucose (mg/dL) 157 H 146 H 159 H (75-99) mg/dL Calcium (8.4-10.2) mg/dL TIBC (228-460) ug/dL Iron Saturation (12.00-45.00) AST (14-36) U/L Total Protein (6.3-8.2) g/dL Albumin (3.5-5.0) g/dL Crossmatch 06/20/19 06/20/19 06/20/19 Range/Units 09:28 09:28 11:12 WBC 1.2 L* (3.8-10.6) k/uL RBC 2.54 L (3.80-5.40) m/uL Hgb 7.4 L (11.4-16.0) gm/dL Hct 21.6 L (34.0-46.0) % Plt Count 15 L* D (150-450) k/uL Neutrophils # 0.2 L* (1.3-7.7) k/uL Lymphocytes # 0.9 L (1.0-4.8) k/uL Fibrinogen (200-500) mg/dL BUN 19 H (7-17) mg/dL Creatinine 0.35 L (0.52-1.04) mg/dL Glucose 134 H (74-99) mg/dL POC Glucose (mg/dL) 160 H (75-99) mg/dL Calcium 8.0 L (8.4-10.2) mg/dL TIBC (228-460) ug/dL Iron Saturation (12.00-45.00) AST 12 L (14-36) U/L Total Protein 5.5 L (6.3-8.2) g/dL Albumin 3.2 L (3.5-5.0) g/dL Crossmatch Assessment and Plan Plan: CLL - Status PostTreatment with single agent monoclonal antibody (Rituxan) initiated inpatient 4 of 4 weekly doses on 05/07/19, 05/14/19, 05/21/19 and 05/28/19 and then Rituxan and Bendeka on 06/04/19 - due to patient' s critical condition and instability requiring ongoing hospitalization. - Monitor CBC with differential and CMP, Uric acid, LDH, Coags Labs daily - Daily follow up Pancytopenia: - Continue Supportive Care and Supportive Transfusions Refractory thrombocytopenia: Crossmatched platelets PRN, less than 10K SIRS/Sepsis: Resolved Gram Negative Bacilli Blood Cultures Psudomonas Aeruginosa - Antibiotics - ID Following Acute Hypoxic Respiratory Failure: Improved - Pulm following Hx: Breast Cancer: - Continue on Arimidex. 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 Plan: - Continue supportive care and Transfusions - Continue increase performance status and strength with PT/OT - Continue to utilized crossmatched platelets for transfusions when available - Obvious improvement when crossmatched products given as today no need for transfusion - Bone Marrow Biopsy planned for Sunday, to re-evaluate goals of care. Lisa Cooley AOCNP
[2019-06-20 17:15] LABS: Glucose,Whole Blood 145 mg/dL (75-99)
--- NOTE | 2019-06-20 18:00 | PN ---
PROGRESS NOTE DATE OF SERVICE: 06/20/2019. REASON FOR FOLLOWUP: Pseudomonas bacteremia and diverticulitis. INTERVAL HISTORY: The patient is currently afebrile. The patient has been breathing comfortably. The patient denies having any chest pain or shortness of breath. Occasional cough. No abdominal pain. No diarrhea. PHYSICAL EXAMINATION: Blood pressure 131/77 with a pulse of 87, temperature 99.6. She is 96% on room air. General description is an elderly female lying in bed in no distress. RESPIRATORY SYSTEM: Unlabored breathing. Clear to auscultation anteriorly. HEART: S1, S2. Regular rate and rhythm. ABDOMEN: Soft. There is no tenderness. LABS: Hemoglobin 7.4, white 1.2 with a BUN of 19, creatinine 0.35. DIAGNOSTIC IMPRESSION AND PLAN: Patient with acute diverticulitis with initial concern for possible perforation. Repeat CT scan continues to show evidence of diverticulitis, but improvement; not completely resolved. Currently on IV Azactam and Flagyl; to continue while waiting for the resumption of her oral activity, at which point antibiotic may be switched to a short course of p.o. Monitor clinical course closely. Continue with supportive care. MMODL / IJN: [id number] /
[2019-06-20] MEDS: ATORVASTATIN 40 MG TAB PO SCH (20:37)
[2019-06-20 23:36] LABS: Glucose,Whole Blood 156 mg/dL (75-99)
[2019-06-21] MEDS: INSULIN ASPART (NovoLOG) 100 UNIT/ML VIAL SQ SCH ×4 (00:08→17:16)
[2019-06-21] MEDS: metroNIDAZOLE-NS PMX 500 MG in SALINE 1 100ML.BAG IVPB SCH ×3 (00:09→16:41)
[2019-06-21] MEDS: ONDANSETRON 4 MG/2 ML VIAL IVP PRN ×2 (00:33→08:15)
[2019-06-21] MEDS: AZTREONAM 2 GM in SODIUM CHLORIDE 0.9% 100 ML IVPB SCH ×3 (01:53→17:36)
--- NOTE | 2019-06-21 04:31 | P.PN ---
Subjective Progress Note Date: 06/20/19 Principal diagnosis: This is a 73-year-old woman who was admitted with pancytopenia, sepsis, acute hypoxic respiratory failure, hypokalemia and was currently receiving chemotherapy for chronic lymphoid leukemia and is being closely monitored. Patient is being followed by multiple consultations including oncology surgery, infectious disease, and pulmonary. This morning patient was nauseated with some vomiting noted that was relieved with Zofran. Patient's platelets this morning were 6 and currently receiving a transfusion at this time. Hemoglobin is 7.4 and will continue to monitor closely. Current potassium is 4.1. Patient is lying in bed in no acute distress stating that she feels fatigued and weak and unable to increase her energy and strength. PT/OT is following. Guarded prognosis. 06/12/2019 Patient is sitting up in bed in no acute distress. No increase in nausea or vomiting today. Patient is tolerating full liquids at this time and may advance as tolerated. Patient denies any other issues overnight. Patient denies any chest pain, shortness of breath, or palpitations at this time. Patient remains afebrile. Patient is still having some abdominal discomfort in the lower rib cage area on the sides due to her cough she states. Will continue to monitor closely. Hematology oncology is following closely. Guarded prognosis. 06/13/2019 Patient is sitting up in bed in no acute distress. A friend or family at the bedside visiting. Patient is tolerating diet and denies any nausea or vomiting at this time. Diet has been advanced. Patient denies any chest pain, shortness of breath, or palpitations at this time. Patient did have a low-grade fever today. Infectious disease is following. Patient antibiotics are currently oral Cipro and Flagyl and will continue. Patient is requesting something more for the cough as she continues to have a cough with no phlegm production. Robitussin-AC was ordered. Patient states that Tessalon Perles were not helping. Patient is having some mild side pain at her ribs due to the cough. PT/OT are following. Patient has not had the strength to get up and work with them at this time. Will continue to encourage working with PT/OT. Patient's hemoglobin and platelets have much improved today. Patient's hemoglobin is 7.8 and platelets are 22. Oncology is following closely. Discussed with the patient at length today about rehab as it would not be in her best interest to return home at this time due to the weakness and fatigue. Patient has agreed to a rehab. Case management and social work are working on possible placement. Dr. Da Silva was consulted and awaiting report. Guarded prognosis. 06/17/2019 This is a 73-year-old woman who was admitted with multiple complex medical issue s with severe pancytopenia, leukopenia, and significant thrombocytopenia, CLL on chemotherapy and is being closely monitored. Hematology/oncology Dr. Oliva is following closely and patient is to remain nothing by mouth except educations, ice chips, popsicles. The patient is currently being maintained on TPN. Patient continues to have mild upper abdominal discomfort on the left and right sides the patient states it is due to the cough that she is still experiencing. Patient is very fatigued and lethargic today. Patient's hemoglobin today is 6.5 and her platelet count is 5. Patient is going to be transfused with 1 unit PRBC and 1 unit of platelets. Will continue to monitor labs closely. Patient seems more sad and discouraged today after receiving her lab values and states she just doesn't understand why nothing is improving. Discussed with the patient at length today about these findings and will continue to monitor. Family is at the bedside. Guarded prognosis. 06/18/2019 Patient is sitting up at the chair in no acute distress. Patients platelet count was low today again current platelet count is 9 and currently awaiting transfusion. Hemoglobin is 6.8 and will be transfused as well. Dr. Oliva is following closely. Patient continues to be nothing by mouth at this time except for medications and ice chips. Patient is still having a lot of mid abdominal pain and discomfort due to her cough. Patient is taking Robitussin-AC for the cough. Patient denies any chest pain, shortness of breath, or palpitations at this time. Patient denies any nausea or vomiting and is currently nothing by mouth and on TPN. patient is currently afebrile. Chest x-ray done yesterday sh ows right upper lobe opacities that are stable with new perihilar and left costophrenic angle opacities. Multifocal pneumonia is likely. Infectious disease is following. Patient is currently on IV antibiotics in the form of Aztreonam and Flagyl. Guarded prognosis. 06/19/2019 Patient is sitting up in the chair in no acute distress. Patient did not receive a unit of packed red blood cells yesterday and hemoglobin today is 6.1. There is a unit ready per lab and will be transfused after antibiotics have finished. Platelets today are 9 and will be transfused later today. Patient continues to be nothing by mouth except for medications and ice chips at this time still. Patient states there are no new changes from yesterday and is still having a dry hacking cough with discomfort on the sides of her abdomen near her rib cage. Patient is denying any chest pain or shortness of breath at this time. Patient is afebrile. Patient continues to have a decrease in strength and is going back to bed to rest issue as she will be working with PT/OT this afternoon. Family is at the bedside. Chest x-ray yesterday shows some increase in volume and patient will be given IV Lasix 40 mg daily. Influenza testing will also be done and is currently pending. Guarded prognosis. 06/20/19 Patient is sitting up in no acute distress. Patient was able to work with PT/OT yesterday with minimal to moderated assist and walked a few feet and and tolerated well. Patient platelets were 15 and hemoglobin is 7.4 today requiring no transfusions at this time. Will continue to monitor. Oncology is following closely. Patients diet has advanced and tolerating well. Patient still has a dry cough at times that is causing bilateral rib cage side pain with coughing spells. patient states that the pain has decreased. Influenza yesterday was negative. Guarded prognosis. Objective - Vital Signs Vital signs: Vital Signs Temp 99 F 06/20/19 20:22 Pulse 91 06/20/19 20:22 Resp 16 06/20/19 20:22 BP 156/74 06/20/19 20:22 Pulse Ox 97 06/20/19 20:22 Intake & Output 06/20/19 06/20/19 06/21/19 06:59 18:59 06:59 Intake Total 2116 98 Output Total 150 Balance 1965 98 Weight 95.5 kg 93.5 kg Intake: IV 98 Fat Emulsion 20% 250 ml @ 63 20.833 mls/hr IV MoWeFr [facility] Rx#:[id number] Sodium Chloride 0.9% 500 35 ml 500 ml @ 20 mls/hr IV .Q24H [facility] Rx#:[id number] Intake, IV Titration 1798 Amount Potassium Acetate 20 meq 1798 Calcium Gluconate 1 gm Magnesium Sulfate gm 1 gm Sodium Chloride 2.5MEQ/ ml Vial 15 meq In Amino Acid 4.25%-D10w+Lytes*E* 1,000 ml @ 70 mls/hr IV . BY [facility] Rx#: [id number] Blood Product 318 Platelet Irr Pheresis 318 Acda1 Unit [id number] Output: Stool 150 Other: Voiding Method Bedside Commode Bedside Commode Bedside Commode Diaper Diaper Diaper Incontinent Incontinent Incontinent # Voids 3 2 - Exam Gen: This is a 73-year-old female sitting up in bed in no acute distress. Vital signs are stable. Temp is 97.0 F, pulse is 87, respirations are 18, blood pressure is 140/70, oxygen saturation is 97% on room air. HEENT: Head is atraumatic, normocephalic. Pupils equal, round. Sclerae is anicteric. Oral mucosa is dry and pale. Left eyelid closed NECK: Supple. No JVD. No lymphadenopathy. No thyromegaly. LUNGS: Diminished breath sounds at the bases with a few scattered rhonchi noted. no wheezing noted on exam. No intercostal retractions. HEART: S1 and S2 are muffled. No murmur. ABDOMEN: Soft. Bowel sounds are present. No masses. Mild tenderness bilaterally upon palpation underneath the rib cage. Continues to improve from yesterday EXTREMITIES: No pedal edema. No calf tenderness. NEUROLOGICAL: Patient is lethargic but awake, alert and oriented x3. Cranial nerves 2 through 12 are grossly intact. - Labs CBC & Chem 7: 06/20/19 09:28 06/20/19 09:28 Labs: Abnormal Lab Results - Last 24 Hours (Table) 06/17/19 06/20/19 06/20/19 Range/Units 09:40 05:36 09:28 WBC (3.8-10.6) k/uL RBC (3.80-5.40) m/uL Hgb (11.4-16.0) gm/dL Hct (34.0-46.0) % Plt Count (150-450) k/uL Neutrophils # (1.3-7.7) k/uL Lymphocytes # (1.0-4.8) k/uL BUN 19 H (7-17) mg/dL Creatinine 0.35 L (0.52-1.04) mg/dL Glucose 134 H (74-99) mg/dL POC Glucose (mg/dL) 159 H (75-99) mg/dL Calcium 8.0 L (8.4-10.2) mg/dL AST 12 L (14-36) U/L Total Protein 5.5 L (6.3-8.2) g/dL Albumin 3.2 L (3.5-5.0) g/dL Crossmatch See Detail 06/20/19 06/20/19 06/20/19 Range/Units 09:28 11:12 17:14 WBC 1.2 L* (3.8-10.6) k/uL RBC 2.54 L (3.80-5.40) m/uL Hgb 7.4 L (11.4-16.0) gm/dL Hct 21.6 L (34.0-46.0) % Plt Count 15 L* D (150-450) k/uL Neutrophils # 0.2 L* (1.3-7.7) k/uL Lymphocytes # 0.9 L (1.0-4.8) k/uL BUN (7-17) mg/dL Creatinine (0.52-1.04) mg/dL Glucose (74-99) mg/dL POC Glucose (mg/dL) 160 H 145 H (75-99) mg/dL Calcium (8.4-10.2) mg/dL AST (14-36) U/L Total Protein (6.3-8.2) g/dL Albumin (3.5-5.0) g/dL Crossmatch 06/20/19 Range/Units 23:34 WBC (3.8-10.6) k/uL RBC (3.80-5.40) m/uL Hgb (11.4-16.0) gm/dL Hct (34.0-46.0) % Plt Count (150-450) k/uL Neutrophils # (1.3-7.7) k/uL Lymphocytes # (1.0-4.8) k/uL BUN (7-17) mg/dL Creatinine (0.52-1.04) mg/dL Glucose (74-99) mg/dL POC Glucose (mg/dL) 156 H (75-99) mg/dL Calcium (8.4-10.2) mg/dL AST (14-36) U/L Total Protein (6.3-8.2) g/dL Albumin (3.5-5.0) g/dL Crossmatch Assessment and Plan Assessment: Severe pancytopenia, neutropenia, and thrombocytopenia secondary to chronic lymphoid leukemia on chemotherapy Severe thrombocytopenia requiring multiple platelet transfusions. Platelets today are 15. Hemoglobin is 7.4. 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 Multiple medical consultations are following closely. Patient denies any episod es of nausea or vomiting today has being eating small amounts of food per oncology recommendations. Infectious disease is following closely. Extremely guarded prognosis. Further recommendations to follow. Case management and social services coordinator following closely. Once the patient is improved and stabilized, PT/OT and possible ECF rehab.
[2019-06-21 06:11] LABS: Glucose,Whole Blood 144 mg/dL (75-99)
[2019-06-21] MEDS: SODIUM CHLORIDE 0.9% 500 ML 500 ML IV SCH (06:13)
[2019-06-21] MEDS: amLODIPine 5 MG TAB PO SCH ×2 (08:17→20:50)
[2019-06-21] MEDS: PANTOPRAZOLE 40 MG TABLET PO SCH ×2 (08:17→17:36)
[2019-06-21] MEDS: FUROSEMIDE 10 MG/ML 4 ML VIAL IV SCH (08:17)
[2019-06-21] MEDS: ALLOPURINOL 300 MG TAB PO SCH (08:17)
[2019-06-21] MEDS: guaiFENesin 600 MG TABLET.ER PO SCH ×2 (08:17→20:50)
[2019-06-21] MEDS: CALCIUM CARBONATE 500 MG CHEWABLE PO PRN (08:17)
[2019-06-21] MEDS: FILGRASTIM-SNDZ 480 MCG/0.8 ML SYRINGE SQ SCH (08:17)
[2019-06-21 09:28] LABS: ALT 19 U/L (9-52); AST 11 U/L (14-36); African American GFR (CKD) >90 (>60 ml/min/1.73 sqM); Albumin 2.8 g/dL (3.5-5.0); Alkaline Phosphatase 45 U/L (38-126); Anion Gap 9 mmol/L; Blood Urea Nitrogen 20 mg/dL (7-17); Calcium 7.9 mg/dL (8.4-10.2); Carbon Dioxide 22 mmol/L (22-30); Chloride 105 mmol/L (98-107); Glucose 119 mg/dL (74-99); Magnesium 1.9 mg/dL (1.6-2.3); Phosphorus 3.9 mg/dL (2.5-4.5); Potassium 4.1 mmol/L (3.5-5.1); Sodium 136 mmol/L (137-145); Total Bilirubin 0.5 mg/dL (0.2-1.3)
[2019-06-21 10:36] LABS: MCH 30.3 pg (25.0-35.0); MCHC 34.8 g/dL (31.0-37.0); Mean Platelet Volume 9.6; RBC 2.22 m/uL (3.80-5.40); RDW 14.2 % (11.5-15.5)
[2019-06-21] MEDS: traMADol 50 MG TAB PO PRN ×2 (10:44→17:38)
[2019-06-21 11:10] LABS: HCT 19.3 % (34.0-46.0); HGB 6.7 gm/dL (11.4-16.0); Platelet Count 9 k/uL (150-450)
[2019-06-21] MEDS: 1: MVI, ADULT NO.4 WITH VIT K 10 ML, TRACE (CONC-1ML/DOSE) 1 ML, POTASSIUM ACETATE 20 ME IV SCH ×14 (11:37→21:20)
[2019-06-21] MEDS: BENZONATATE 100 MG CAP PO PRN (11:39)
[2019-06-21 11:47] LABS: Glucose,Whole Blood 157 mg/dL (75-99)
[2019-06-21 13:36] LABS: Neutrophils % (M) 16 %
[2019-06-21 13:37] LABS: Lymphocytes # (M) 0.79 k/uL (1.0-4.8); Monocytes # (M) 0.05 k/uL (0-1.0); Nucleated Red Blood Cells 0 /100 WBC (0-0); Total Cells Counted 100
[2019-06-21] MEDS: guaiFENesin SYRUP 100MG/5ML 200 MG/10 ML CUP PO PRN (15:44)
[2019-06-21 16:47] LABS: Glucose,Whole Blood 129 mg/dL (75-99)
[2019-06-21] MEDS: ATORVASTATIN 40 MG TAB PO SCH (20:50)
--- NOTE | 2019-06-21 22:25 | PN ---
PROGRESS NOTE DATE OF SERVICE: 06/21/2019 This 73-year-old woman who presented with multiple medical problems including chronic lymphoid leukemia and severe pancytopenia. The patient is being closely monitored at this time. The patient had received multiple transfusions. The patient is so far received 13 units of red blood cells and 22 units of platelets. The patient being closely monitored at this time. Today the hemoglobin is 6.7 and platelets are 9. No chest pain. No palpitations. No fever. PHYSICAL EXAM: Alert and oriented x3. Pulse is 87. Blood pressure 135/87, respiration 18, temperature 97.2, pulse ox 98% on room air. HEENT: Conjunctivae pale. Oral mucosa moist. NECK is no jugular venous distention. No carotid bruit. No lymph node enlargement. CARDIOVASCULAR: S1, S2 muffled. RESPIRATION: Breath sounds diminished in the bases. No rhonchi no crackles. ABDOMEN: Soft. No guarding. No mass palpable. Mild obese. No guarding. Flanks are resonant. LEGS: No edema. No swelling. NERVOUS SYSTEM: No focal deficits. LABS: WBC 1, hemoglobin 6.7, platelets are 9, glucose 119. ASSESSMENT: 1. Severe pancytopenia, neutropenia, thrombocytopenia secondary to chronic lymphocytic leukemia on chemotherapy. 2. Severe thrombocytopenia requiring multiple platelet transfusions. 3. Pseudomonas sepsis with neutropenic sepsis present on admission. 4. Acute hypoxic respiratory failure, multifactorial, present on admission. 5. Possible acute sigmoid diverticulitis, diverticular abscess in the CT scan. 6. Evolving right subcapsular and intraparenchymal renal hematoma, stable in size. 7. History of cholelithiasis. 8. History of breast cancer. 9. History of gastrointestinal stromal neoplasm. 10.History of HSV lips and mucositis. 11.Hypokalemia. 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 13.Hypertension. 14.Hyperlipidemia. 15.History of gait dysfunction. 16.History of degenerative joint disease. 17.History of sleep apnea, obesity with body mass index of 41.1. 18.Remote history of nicotine dependence. 19.FULL CODE. RECOMMENDATIONS AND DISCUSSION: Recommend to continue current medications, management, monitoring and symptomatic treatment. Otherwise, at this time, I recommend continue with transfusion protocol per Hematology/ Oncology. Continue the rest of medication. Overall prognosis extremely guarded because of multiple complex medical issues and further recommendations to follow. MMODL / IJN: [id number] /
[2019-06-21] MEDS: ACETAMINOPHEN TAB 325 MG TAB PO PRN (23:34)
[2019-06-22 00:27] LABS: Glucose,Whole Blood 142 mg/dL (75-99)
[2019-06-22] MEDS: INSULIN ASPART (NovoLOG) 100 UNIT/ML VIAL SQ SCH ×5 (01:00→23:26)
[2019-06-22] MEDS: guaiFENesin SYRUP 100MG/5ML 200 MG/10 ML CUP PO PRN ×3 (02:55→18:03)
[2019-06-22] MEDS: AZTREONAM 2 GM in SODIUM CHLORIDE 0.9% 100 ML IVPB SCH ×4 (03:41→20:25)
[2019-06-22] MEDS: metroNIDAZOLE-NS PMX 500 MG in SALINE 1 100ML.BAG IVPB SCH ×4 (04:13→22:04)
[2019-06-22 06:17] LABS: Glucose,Whole Blood 154 mg/dL (75-99)
[2019-06-22 07:27] LABS: MCH 30.2 pg (25.0-35.0); MCHC 35.2 g/dL (31.0-37.0); MCV 85.8 fL (80.0-100.0); RBC 2.31 m/uL (3.80-5.40); RDW 13.8 % (11.5-15.5)
[2019-06-22 07:52] LABS: WBC 1.2 k/uL (3.8-10.6)
[2019-06-22 07:53] LABS: HCT 19.8 % (34.0-46.0); Platelet Count 10 k/uL (150-450)
[2019-06-22] MEDS: hydrALAZINE HCL 25 MG TAB PO PRN (08:24)
[2019-06-22] MEDS: ALLOPURINOL 300 MG TAB PO SCH (08:24)
[2019-06-22] MEDS: guaiFENesin 600 MG TABLET.ER PO SCH ×2 (08:24→20:25)
[2019-06-22] MEDS: CALCIUM CARBONATE 500 MG CHEWABLE PO PRN (08:24)
[2019-06-22] MEDS: FUROSEMIDE 10 MG/ML 4 ML VIAL IV SCH (08:25)
[2019-06-22] MEDS: PANTOPRAZOLE 40 MG TABLET PO SCH ×2 (08:25→18:00)
[2019-06-22] MEDS: amLODIPine 5 MG TAB PO SCH ×2 (08:25→20:25)
[2019-06-22] MEDS: ONDANSETRON 4 MG/2 ML VIAL IVP PRN (08:25)
[2019-06-22] MEDS: FILGRASTIM-SNDZ 480 MCG/0.8 ML SYRINGE SQ SCH (08:25)
[2019-06-22] MEDS: SODIUM CHLORIDE 0.9% 500 ML 500 ML IV SCH (08:27)
[2019-06-22 08:30] LABS: ALT 22 U/L (9-52); AST 14 U/L (14-36); African American GFR (CKD) >90 (>60 ml/min/1.73 sqM); Albumin 2.7 g/dL (3.5-5.0); Alkaline Phosphatase 44 U/L (38-126); Anion Gap 8 mmol/L; Blood Urea Nitrogen 18 mg/dL (7-17); Calcium 8.5 mg/dL (8.4-10.2); Carbon Dioxide 23 mmol/L (22-30); Chloride 107 mmol/L (98-107); Glucose 144 mg/dL (74-99); Magnesium 2.2 mg/dL (1.6-2.3); Phosphorus 3.6 mg/dL (2.5-4.5); Potassium 4.6 mmol/L (3.5-5.1); Sodium 138 mmol/L (137-145); Total Bilirubin 0.7 mg/dL (0.2-1.3); Total Protein 4.8 g/dL (6.3-8.2)
[2019-06-22] MEDS: traMADol 50 MG TAB PO PRN ×2 (10:03→18:00)
[2019-06-22] MEDS: SENNOSIDES-DOCUSATE SODIUM 1 EACH TAB PO PRN ×2 (10:03→20:25)
[2019-06-22] MEDS: BENZONATATE 100 MG CAP PO PRN (11:22)
[2019-06-22] MEDS: 1: MVI, ADULT NO.4 WITH VIT K 10 ML, TRACE (CONC-1ML/DOSE) 1 ML, POTASSIUM ACETATE 20 ME IV SCH ×7 (11:23)
[2019-06-22 12:05] LABS: Glucose,Whole Blood 169 mg/dL (75-99)
[2019-06-22 13:59] LABS: Lymphocytes # (M) 0.94 k/uL (1.0-4.8); Neutrophils % (M) 14 %; Nucleated Red Blood Cells 0 /100 WBC (0-0); Total Cells Counted 100
--- NOTE | 2019-06-22 15:40 | CT ---
EXAMINATION TYPE: CT abdomen pelvis wo con DATE OF EXAM: 06/22/2019 COMPARISON: 06/14/2019 HISTORY: Abdominal pain, possible bleeding. CT DLP: 1056.2 mGycm Automated exposure control for dose reduction was used. TECHNIQUE: Helical acquisition of images was performed from the lung bases through the pelvis. FINDINGS: There are mild bilateral pleural effusions. There is some calcified pleural plaque at the left lung b ase. There is some linear consolidation and atelectasis in the right middle lobe. There is coronary a rtery calcification. Liver shows no focal defect. Spleen is intact. There is small hiatal hernia. There are surgical clips on the stomach. There is no evidence of pancreatic mass. There are multiple calcified gallstones. Ga llbladder is dilated and measures 5.6 cm. Intrahepatic bile ducts are not dilated. There is no adrenal mass. There is some enlargement of the lateral aspect of the right kidney with lo w-attenuation. This is probably subcapsular hematoma. There is no retroperitoneal adenopathy. There i s small amount of air in the urinary bladder. Bladder is dilated. There is no inguinal hernia. There is no free fluid in the pelvis. There is no sign of bowel obstruction. There are multiple sigmoid div erticula. There is minimal fat stranding around the mid sigmoid colon and fluid in the left paracolic gutter. There is broad-based umbilical hernia that contains fat. There is soft tissue air on the ant erior right side abdomen probably from injection site. There are spondylotic changes in the lumbar sp ine. Bony pelvis is intact. IMPRESSION: THERE IS CHRONIC SUBCAPSULAR HEMATOMA OF THE RIGHT KIDNEY MEASURING UP TO 2.2 CM IN THICKNESS UNCHANG ED. MULTIPLE GALLSTONES. DILATED GALLBLADDER IS INCREASED COMPARED TO OLD EXAM AND SUGGESTIVE OF CHOL ECYSTITIS. SIGMOID DIVERTICULOSIS. MINIMAL FAT STRANDING AROUND THE SIGMOID COLON COULD RELATE TO MILD DIVERTICU LITIS PROBABLY NOT CHANGED COMPARED TO OLD EXAM. NO ABSCESS. PLEURAL EFFUSIONS. RIGHT MIDDLE LOBE INFILTRATE AND ATELECTASIS IS NEW COMPARED TO OLD EXAM.
[2019-06-22 17:57] LABS: Glucose,Whole Blood 131 mg/dL (75-99)
[2019-06-22 20:19] LABS: Glucose,Whole Blood 145 mg/dL (75-99)
[2019-06-22] MEDS: ACETAMINOPHEN TAB 325 MG TAB PO PRN (20:24)
[2019-06-22] MEDS: ATORVASTATIN 40 MG TAB PO SCH (20:25)
--- NOTE | 2019-06-22 22:28 | PN ---
PROGRESS NOTE DATE OF SERVICE: 06/22/2019 This 73-year-old woman was admitted with significant pancytopenia, neutropenia, thrombocytopenia after chemotherapy is being closely monitored. The patient has multiple platelets and red blood infusions. Patient still complaining of some mild persistent discomfort. Today the WBC 1.2, hemoglobin is 7, platelets 10. The patient is also complaining of some abdominal discomfort. A repeat CT scan of the abdomen and pelvis done today showed chronic subcapsular hematoma of the right kidney measuring up to 2.2 cm thickness, unchanged. Multiple gallstones. Dilated gallbladder is increased compared with old exam and suggestive of cholecystitis also. Sigmoid diverticulosis also noted. Pleural effusion, right middle lobe was also noted. The patient being closely monitored at this time. PAST MEDICAL HISTORY: Reviewed. REVIEW OF SYSTEMS: Cardiovascular system: No angina or palpitations. RESPIRATORY: As mentioned earlier. GASTROINTESTINAL: As mentioned earlier. : No dysuria. CENTRAL NERVOUS SYSTEM: No numbness or weakness. CURRENT MEDICATIONS: Reviewed and include: 1. Tylenol 650 q.4 p.r.n. 2. Zyloprim 300 mg p.o. daily. 3. Norvasc 5 mg p.o. b.i.d. 4. Lipitor 40 mg q.h.s. 5. Aztreonam 2 g IV q.8h. 6. Tessalon Perles. 7. Tums. 8. Lomotil. 9. Zarxio 480 mcg subcu daily. 10.Lasix 40 mg IV daily. 11.Robitussin. 12.Mucinex. 13.Apresoline. 14.NovoLog. 15.Milk of magnesia. 16.Narcan. 17.Zofran. 18.Protonix. 19.Senokot-S. 20.Ultram. PHYSICAL EXAM: Patient is alert, oriented x3. The pulse is 87. Blood pressure 140/67, respiration 18, temperature 98.5. Pulse ox 98% on room air. HEENT: Conjunctivae normal. NECK: No JVD. CARDIOVASCULAR: S1, S2 muffled. RESPIRATIONS: Breath sounds diminished in the bases. Bilateral scattered rhonchi and crackles. ABDOMEN: Soft, obese. Mild diffuse discomfort. No guarding. No rigidity. No mass palpable. LEGS: No edema. No swelling. NERVOUS SYSTEM: No focal deficits. LABS: WBC 1.2, hemoglobin 7, platelets 10, glucose 116, albumin 2.7. ASSESSMENT: 1. Severe pancytopenia, neutropenia, thrombocytopenia secondary to chronic lymphatic leukemia on chemotherapy. 2. Severe thrombocytopenia requiring multiple platelet transfusions. 3. Pseudomonas sepsis and neutropenic sepsis present on admission. 4. Acute hypoxic respiratory failure, multifactorial, present on admission. 5. Acute sigmoid diverticulitis with a diverticular abscess in the CT scan. 6. Right subcapsular and intraparenchymal renal hematoma, stable in size. 7. Cholelithiasis, rule out acute cholecystitis. 8. History of breast cancer. 9. History of gastrointestinal stromal neoplasm. 10.History of HSV mucositis. 11.Hypokalemia. 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 13.Hypertension. 14.Hyperlipidemia. 15.History of gait dysfunction. 16.History of degenerative joint disease. 17.History of sleep apnea. 18.Obesity with body mass index 41.1. 19.Remote history of nicotine dependence. 20.FULL CODE. RECOMMENDATIONS AND DISCUSSION: I recommend to continue current medications, continue with monitoring, symptomatic treatment. Otherwise repeat CBC and continue with platelets and transfusions on an as necessary basis. Otherwise, currently the patient is also receiving symptomatic treatment. The patient still has Aztreonam IV. I would also recommend ulcer Dr. James review the CT scans also. Otherwise continue to monitor. Guarded prognosis. Further recommendations to follow. MMODL / IJN: [id number] / KARRIE
--- NOTE | 2019-06-23 01:18 | PN ---
PROGRESS NOTE DATE OF SERVICE: 06/22/2019 REASON FOR FOLLOWUP: Diverticulitis and Pseudomonas bacteremia. INTERVAL HISTORY: The patient is currently afebrile. Patient has been breathing comfortably. The patient did have some cough but no worsening. No nausea, vomiting. No worsening abdominal pain or diarrhea. PHYSICAL EXAMINATION: Blood pressure 130/60 with a pulse of 92, temperature 98.5, she is 96% on room air. General description is an elderly female lying in bed in no distress. Respiratory system: Unlabored breathing. Clear to auscultation anteriorly. Heart S1, S2. Regular rate and rhythm. Abdomen soft, no tenderness. LABS: Hemoglobin is 7 with white count 1.2, BUN of 18, creatinine 0.33. Repeat CT this morning did show overall improvement in the diverticulitis. DIAGNOSTIC IMPRESSION AND PLAN: Patient with acute sigmoid diverticulitis with previous question of possible perforation as patient did have a febrile neutropenia and previous history of Pseudomonas bacteremia. The patient has shown overall clinical improvement. Currently on Azactam, Flagyl, to continue. Waiting for the oral intake to improve to switch her to a short course of oral antibiotics. Continue supportive care. MMODL / IJN: [id number] /
[2019-06-23] MEDS: traMADol 50 MG TAB PO PRN ×2 (01:22→18:25)
[2019-06-23] MEDS: 1: MVI, ADULT NO.4 WITH VIT K 10 ML, TRACE (CONC-1ML/DOSE) 1 ML, POTASSIUM ACETATE 20 ME IV SCH ×7 (02:17)
[2019-06-23] MEDS: AZTREONAM 2 GM in SODIUM CHLORIDE 0.9% 100 ML IVPB SCH ×3 (04:19→20:55)
[2019-06-23] MEDS: SODIUM CHLORIDE 0.9% 500 ML 500 ML IV SCH (05:08)
[2019-06-23 05:55] LABS: Glucose,Whole Blood 147 mg/dL (75-99)
[2019-06-23] MEDS: ONDANSETRON 4 MG/2 ML VIAL IVP PRN (05:58)
[2019-06-23] MEDS: INSULIN ASPART (NovoLOG) 100 UNIT/ML VIAL SQ SCH ×4 (05:58→23:41)
[2019-06-23] MEDS: metroNIDAZOLE-NS PMX 500 MG in SALINE 1 100ML.BAG IVPB SCH ×3 (05:58→21:56)
[2019-06-23] MEDS ORDERED: IV FLUID CONTINUATION 400 ML IV ONE (08:30)
[2019-06-23] MEDS ORDERED: PROPOFOL 10 MG/ML 20 ML VIAL IV ONE (08:30)
[2019-06-23 08:37] LABS: INR 1.1 (<1.2)
[2019-06-23 08:51] LABS: MCH 29.1 pg (25.0-35.0); MCHC 34.1 g/dL (31.0-37.0); MCV 85.4 fL (80.0-100.0); Mean Platelet Volume 7.7; RBC 2.23 m/uL (3.80-5.40); RDW 13.1 % (11.5-15.5)
[2019-06-23 08:54] LABS: WBC 0.8 k/uL (3.8-10.6)
[2019-06-23 08:55] LABS: HGB 6.5 gm/dL (11.4-16.0)
[2019-06-23 08:58] LABS: Platelet Count 12 k/uL (150-450)
--- NOTE | 2019-06-23 09:00 | P.PCN ---
Date of Procedure: 06/23/19 Preoperative Diagnosis: Persistent pancytopenia, CLL status post chemo immunotherapy Postoperative Diagnosis: Same Procedure(s) Performed: Bone marrow aspiration and biopsy Anesthesia: MAC Surgeon: Tomy Oliva Cut Off Saw Operator #1: Stated None Pathology: other Condition: stable Disposition: floor Indications for Procedure: History of CLL causing pancytopenia. Status posttreatment for CLL but persistent pancytopenia Operative Findings: Adequate samples Description of Procedure: The procedure was explained in detail to the patient on the floor. Informed consent was obtained on the floor. She was brought to the inpatient endoscopy suite and placed in the left lateral decubitus position. The area over both posterior iliac crest was cleaned and prepped with chlorhexidine and sterile draping. IV sedation was then initiated. Local anesthesia was administered with lidocaine to the right posterior iliac crest. A Jamshidi needle was then inserted and bone marrow aspirate and biopsy obtained. On withdrawal of the needle hemostasis was easily achieved. Blood loss was minimal. recovery from sedation was satisfactory. She appeared to have tolerated the procedure well without any obvious immediate complications.
[2019-06-23 09:06] LABS: ALT 26 U/L (9-52); AST 11 U/L (14-36); African American GFR (CKD) >90 (>60 ml/min/1.73 sqM); Albumin 2.7 g/dL (3.5-5.0); Alkaline Phosphatase 42 U/L (38-126); Anion Gap 7 mmol/L; Blood Urea Nitrogen 17 mg/dL (7-17); Calcium 7.6 mg/dL (8.4-10.2); Carbon Dioxide 25 mmol/L (22-30); Chloride 104 mmol/L (98-107); Glucose 143 mg/dL (74-99); Sodium 136 mmol/L (137-145); Total Bilirubin 0.4 mg/dL (0.2-1.3); Total Protein 4.8 g/dL (6.3-8.2)
[2019-06-23] MEDS: PANTOPRAZOLE 40 MG TABLET PO SCH ×2 (09:31→18:25)
[2019-06-23] MEDS: guaiFENesin 600 MG TABLET.ER PO SCH ×2 (09:31→20:55)
[2019-06-23] MEDS: ALLOPURINOL 300 MG TAB PO SCH (09:31)
[2019-06-23] MEDS: FUROSEMIDE 10 MG/ML 4 ML VIAL IV SCH (09:31)
[2019-06-23] MEDS: amLODIPine 5 MG TAB PO SCH ×2 (09:31→20:55)
[2019-06-23] MEDS: FAT EMULSION 20% 250 ML IV SCH (09:33)
[2019-06-23] MEDS: FILGRASTIM-SNDZ 480 MCG/0.8 ML SYRINGE SQ SCH (09:33)
[2019-06-23 11:26] LABS: Reticulocyte % 0.5 % (0.5-2.0)
[2019-06-23 13:02] LABS: Glucose,Whole Blood 169 mg/dL (75-99)
[2019-06-23] MEDS: ACETAMINOPHEN TAB 325 MG TAB PO PRN ×2 (13:58→20:58)
[2019-06-23 17:08] LABS: Glucose,Whole Blood 142 mg/dL (75-99)
[2019-06-23] MEDS: ATORVASTATIN 40 MG TAB PO SCH (20:55)
[2019-06-23] MEDS: SENNOSIDES-DOCUSATE SODIUM 1 EACH TAB PO PRN (21:01)
--- NOTE | 2019-06-23 23:01 | PN ---
PROGRESS NOTE DATE OF SERVICE: 06/23/2019. REASON FOR FOLLOWUP VISIT: Diverticulitis and Pseudomonas bacteremia. INTERVAL HISTORY: The patient is currently afebrile. Patient has been breathing comfortably. Denies any chest pain. No worsening cough. No nausea, no vomiting. No abdominal pain or any worsening diarrhea. PHYSICAL EXAMINATION: Blood pressure 139/63 with pulse of 85, temperature 96.9. She is 97% on . General description is an elderly female lying in bed in no distress. Respiratory system: Unlabored breathing. Clear to auscultation anteriorly. Heart S1, S2. Regular rate and rhythm. ABDOMEN: Soft. No tenderness. LABS: Hemoglobin 6.5, creatinine 0.8. BUN of 17, creatinine 0.32. DIAGNOSTIC IMPRESSION AND PLAN: Patient with increasing sigmoid diverticulitis complicated underlying significant neutropenia and previous Pseudomonas bacteremia. Underlying infection has been adequately treated. Should be able to discontinue antibiotic. Will discuss further with Oncology. Continue supportive care. MMODL / IJN: [id number] /
[2019-06-23 23:39] LABS: Glucose,Whole Blood 147 mg/dL (75-99)
--- NOTE | 2019-06-24 00:07 | P.PN ---
Subjective Progress Note Date: 06/23/19 Principal diagnosis: This is a 73-year-old woman who was admitted with pancytopenia, sepsis, acute hypoxic respiratory failure, hypokalemia and was currently receiving chemotherapy for chronic lymphoid leukemia and is being closely monitored. Patient is being followed by multiple consultations including oncology surgery, infectious disease, and pulmonary. This morning patient was nauseated with some vomiting noted that was relieved with Zofran. Patient's platelets this morning were 6 and currently receiving a transfusion at this time. Hemoglobin is 7.4 and will continue to monitor closely. Current potassium is 4.1. Patient is lying in bed in no acute distress stating that she feels fatigued and weak and unable to increase her energy and strength. PT/OT is following. Guarded prognosis. 06/12/2019 Patient is sitting up in bed in no acute distress. No increase in nausea or vomiting today. Patient is tolerating full liquids at this time and may advance as tolerated. Patient denies any other issues overnight. Patient denies any chest pain, shortness of breath, or palpitations at this time. Patient remains afebrile. Patient is still having some abdominal discomfort in the lower rib cage area on the sides due to her cough she states. Will continue to monitor closely. Hematology oncology is following closely. Guarded prognosis. 06/13/2019 Patient is sitting up in bed in no acute distress. A friend or family at the bedside visiting. Patient is tolerating diet and denies any nausea or vomiting at this time. Diet has been advanced. Patient denies any chest pain, shortness of breath, or palpitations at this time. Patient did have a low-grade fever today. Infectious disease is following. Patient antibiotics are currently oral Cipro and Flagyl and will continue. Patient is requesting something more for the cough as she continues to have a cough with no phlegm production. Robitussin-AC was ordered. Patient states that Tessalon Perles were not helping. Patient is having some mild side pain at her ribs due to the cough. PT/OT are following. Patient has not had the strength to get up and work with them at this time. Will continue to encourage working with PT/OT. Patient's hemoglobin and platelets have much improved today. Patient's hemoglobin is 7.8 and platelets are 22. Oncology is following closely. Discussed with the patient at length today about rehab as it would not be in her best interest to return home at this time due to the weakness and fatigue. Patient has agreed to a rehab. Case management and social work are working on possible placement. Dr. Da Silva was consulted and awaiting report. Guarded prognosis. 06/17/2019 This is a 73-year-old woman who was admitted with multiple complex medical issue s with severe pancytopenia, leukopenia, and significant thrombocytopenia, CLL on chemotherapy and is being closely monitored. Hematology/oncology Dr. Oliva is following closely and patient is to remain nothing by mouth except educations, ice chips, popsicles. The patient is currently being maintained on TPN. Patient continues to have mild upper abdominal discomfort on the left and right sides the patient states it is due to the cough that she is still experiencing. Patient is very fatigued and lethargic today. Patient's hemoglobin today is 6.5 and her platelet count is 5. Patient is going to be transfused with 1 unit PRBC and 1 unit of platelets. Will continue to monitor labs closely. Patient seems more sad and discouraged today after receiving her lab values and states she just doesn't understand why nothing is improving. Discussed with the patient at length today about these findings and will continue to monitor. Family is at the bedside. Guarded prognosis. 06/18/2019 Patient is sitting up at the chair in no acute distress. Patients platelet count was low today again current platelet count is 9 and currently awaiting transfusion. Hemoglobin is 6.8 and will be transfused as well. Dr. Oliva is following closely. Patient continues to be nothing by mouth at this time except for medications and ice chips. Patient is still having a lot of mid abdominal pain and discomfort due to her cough. Patient is taking Robitussin-AC for the cough. Patient denies any chest pain, shortness of breath, or palpitations at this time. Patient denies any nausea or vomiting and is currently nothing by mouth and on TPN. patient is currently afebrile. Chest x-ray done yesterday sh ows right upper lobe opacities that are stable with new perihilar and left costophrenic angle opacities. Multifocal pneumonia is likely. Infectious disease is following. Patient is currently on IV antibiotics in the form of Aztreonam and Flagyl. Guarded prognosis. 06/19/2019 Patient is sitting up in the chair in no acute distress. Patient did not receive a unit of packed red blood cells yesterday and hemoglobin today is 6.1. There is a unit ready per lab and will be transfused after antibiotics have finished. Platelets today are 9 and will be transfused later today. Patient continues to be nothing by mouth except for medications and ice chips at this time still. Patient states there are no new changes from yesterday and is still having a dry hacking cough with discomfort on the sides of her abdomen near her rib cage. Patient is denying any chest pain or shortness of breath at this time. Patient is afebrile. Patient continues to have a decrease in strength and is going back to bed to rest issue as she will be working with PT/OT this afternoon. Family is at the bedside. Chest x-ray yesterday shows some increase in volume and patient will be given IV Lasix 40 mg daily. Influenza testing will also be done and is currently pending. Guarded prognosis. 06/20/19 Patient is sitting up in no acute distress. Patient was able to work with PT/OT yesterday with minimal to moderated assist and walked a few feet and and tolerated well. Patient platelets were 15 and hemoglobin is 7.4 today requiring no transfusions at this time. Will continue to monitor. Oncology is following closely. Patients diet has advanced and tolerating well. Patient still has a dry cough at times that is causing bilateral rib cage side pain with coughing spells. patient states that the pain has decreased. Influenza yesterday was negative. Guarded prognosis. 06/23/2019 Patient is sitting up in bed with sister at the bedside in no acute distress. Patient has just returned from a bone marrow biopsy with Dr. Oliva and is being closely monitored. Patient hemoglobin is 6.5 with a platelet count of 12 this morning. Patient will be receiving 1 unit of PRBC's this am. Multiple consultants are following at this time. Patient is currently on Flagyl and Aztreonam per infectious diseases recommendations. Review of Systems Constitutional: Denies chills, Denies fever Eyes: denies blurred vision, denies pain Ears, nose, mouth and throat: Denies headache, Denies sore throat, reports dry mouth Cardiovascular: Denies chest pain, Denies shortness of breath Respiratory: Reports dyspnea, reports cough Gastrointestinal: reports abdominal pain and diarrhea, Denies nausea, Denies vomiting Musculoskeletal: reports generalized myalgias Integumentary: Denies pruritus, Denies rash Neurological: Denies numbness, reports weakness Psychiatric: Denies anxiety, Denies depression Endocrine: reports fatigue, Denies weight change Active Medications Acetaminophen (Tylenol Tab) 650 mg PO Q4HR PRN PRN Reason: Fever and/ or Pain Last Admin: 06/23/19 20:58 Dose: 650 mg Documented by: Allopurinol (Zyloprim) 300 mg PO DAILY [facility] Last Admin: 06/23/19 09:31 Dose: 300 mg Documented by: Amlodipine Besylate (Norvasc) 5 mg PO BID [facility] Last Admin: 06/23/19 20:55 Dose: 5 mg Documented by: Atorvastatin Calcium (Lipitor) 40 mg PO HS [facility] Last Admin: 06/23/19 20:55 Dose: 40 mg Documented by: Benzonatate (Tessalon Perles) 200 mg PO TID PRN PRN Reason: Cough Last Admin: 06/22/19 11:22 Dose: 200 mg Documented by: Calcium Carbonate/Glycine (Tums) 500 mg PO QID PRN PRN Reason: Heartburn Last Admin: 06/22/19 08:24 Dose: 500 mg Documented by: Al Hydroxide/Mg Hydroxide 30 ml/ Lidocaine HCl 30 ml/Diphenhydramine HCl 75 mg/Acetaminophen 960 mg 0 ml PO QID PRN PRN Reason: Cold Sores Last Admin: 05/30/19 10:57 Dose: 5 ml Documented by: Diphenoxylate HCl/Atropine (Lomotil) 1 each PO Q6HR PRN PRN Reason: Diarrhea Last Admin: 06/17/19 08:50 Dose: 1 each Documented by: Filgrastim (Zarxio) 480 mcg SQ DAILY [facility] Last Admin: 06/23/19 09:33 Dose: 480 mcg Documented by: Furosemide (Lasix) 40 mg IV DAILY [facility] Last Admin: 06/23/19 09:31 Dose: 40 mg Documented by: Guaifenesin (Robitussin) 200 mg PO Q6H PRN PRN Reason: Cough Last Admin: 06/22/19 18:03 Dose: 200 mg Documented by: Guaifenesin (Mucinex) 600 mg PO Q12HR [facility] Last Admin: 06/23/19 20:55 Dose: 600 mg Documented by: Guaifenesin/Codeine Phosphate (Robitussin Ac) 10 ml PO Q6H PRN PRN Reason: Cough Last Admin: 06/20/19 20:37 Dose: 10 ml Documented by: Hydralazine HCl (Apresoline) 25 mg PO DAILY PRN PRN Reason: Hypertension Last Admin: 06/22/19 08:24 Dose: 25 mg Documented by: Sodium Chloride (Saline 0.9%) 500 mls @ 20 mls/hr IV .Q24H [facility] Last Admin: 06/23/19 05:08 Dose: Not Given Documented by: Fat Emulsion Intravenous (Lipids 20%) 250 mls @ 20.833 mls/hr IV MoWeFr [facility] Last Admin: 06/23/19 09:33 Dose: 20.833 mls/hr Documented by: Parenteral Vitamin Supplement 10 ml/ Chromium/Copper/Manganese/Seleni/Zn 1 ml/Potassium Acetate 20 meq/Calcium Gluconate 1 gm/Magnesium Sulfate 2 gm/ Sodium Chloride 15 meq/ Amino Ac/Electrol/Dextrose/Calcium 1,041 mls @ 70 mls/hr IV .BY DURATION [facility] Last Admin: 06/22/19 11:23 Dose: 70 mls/hr Documented by: Potassium Acetate 20 meq/Calcium Gluconate 1 gm/Magnesium Sulfate 1 gm/ Sodium Chloride 15 meq/ Amino Ac/Electrol/Dextrose/Calcium 1,028 mls @ 70 mls/hr IV .BY DURATION [facility] Last Admin: 06/23/19 02:17 Dose: 70 mls/hr Documented by: Aztreonam 2 gm/ Sodium (Chloride) 100 mls @ 100 mls/hr IVPB Q8H [facility]; Protocol Last Admin: 06/23/19 20:55 Dose: 100 mls/hr Documented by: Metronidazole 500 mg/ IV (Solution) 100 mls @ 100 mls/hr IVPB Q8H [facility] Last Admin: 06/23/19 21:56 Dose: 100 mls/hr Documented by: Insulin Aspart (Novolog) 0 unit SQ 0000,0600,1200,1800 [facility]; Protocol Last Admin: 06/23/19 23:41 Dose: 1 unit Documented by: Magnesium Hydroxide (Milk Of Magnesia) 2,400 mg PO ONCE PRN PRN Reason: Constipation Last Admin: 05/26/19 12:01 Dose: 2,400 mg Documented by: Miscellaneous Information (Pneumonia Protocol Utilized) 1 each PO ONCE PRN PRN Reason: Per Protocol Miscellaneous Information (Potassium Per Protocol) 1 each MISCELLANE DAILY PRN; Protocol PRN Reason: Per Protocol Naloxone HCl (Narcan) 0.2 mg IV Q2M PRN PRN Reason: Opioid Reversal Ondansetron HCl (Zofran) 4 mg IVP Q4HR PRN PRN Reason: Nausea And Vomiting Last Admin: 06/23/19 05:58 Dose: 4 mg Documented by: Pantoprazole Sodium (Protonix) 40 mg PO AC-BID [facility] Last Admin: 06/23/19 18:25 Dose: 40 mg Documented by: Polyethylene Glycol (Miralax) 17 gm PO DAILY PRN PRN Reason: Constipation Senna/Docusate Sodium (Senokot-S) 2 each PO BID PRN PRN Reason: Constipation Last Admin: 06/23/19 21:01 Dose: 2 each Documented by: Tramadol HCl (Ultram) 50 mg PO TID PRN PRN Reason: Pain Last Admin: 06/23/19 18:25 Dose: 50 mg Documented by: Objective - Vital Signs Vital signs: Vital Signs Temp 96.9 F L 06/23/19 20:55 Pulse 85 06/23/19 20:55 Resp 18 06/23/19 20:55 BP 139/66 06/23/19 20:55 Pulse Ox 97 06/23/19 20:55 Intake & Output 06/23/19 06/23/19 06/24/19 06:59 18:59 06:59 Intake Total 545 1790 Output Total 1400 300 Balance -855 1490 Weight 93.168 kg 93.168 kg Intake: IV 370 Fat Emulsion 20% 250 ml @ 200 20.833 mls/hr IV MoWeFr [facility] Rx#:[id number] Sodium Chloride 0.9% 500 120 ml 500 ml @ 20 mls/hr IV .Q24H [facility] Rx#:[id number] Intake, IV Titration 200 200 Amount Aztreonam 2 gm In Sodium 100 100 Chloride 0.9% 100 ml @ 100 mls/hr IVPB Q8H [facility] Rx#:[id number] metroNIDAZOLE-NS PMX 500 100 100 mg In Saline 1 100ml.bag @ 100 mls/hr IVPB Q8H [facility] Rx#:[id number] Oral 150 600 Blood Product 195 620 Platelet Irr Pheresis 195 Acda1 Unit [id number] Rc Irr As1 Unit 310 [id number] Output: Urine 1400 Straight 1400 Stool 300 Other: Voiding Method Bedside Commode Bedside Commode Diaper Diaper Incontinent Incontinent # Voids 1 5 # Bowel Movements 1 - Exam Gen: This is a 73-year-old female sitting up in bed in no acute distress. Vital signs are stable. Temp is 98.2 F, pulse is 82, respirations are 20, blood pressure is 125/63, oxygen saturation is 97% on room air. HEENT: Head is atraumatic, normocephalic. Pupils equal, round. Sclerae is anicteric. Oral mucosa is dry and pale. Left eyelid closed NECK: Supple. No JVD. No lymphadenopathy. No thyromegaly. LUNGS: Diminished breath sounds at the bases with a few scattered rhonchi noted. no wheezing noted on exam. No intercostal retractions. HEART: S1 and S2 are muffled. No murmur. ABDOMEN: Soft. Bowel sounds are present. No masses. Mild tenderness bilaterally upon palpation underneath the rib cage. EXTREMITIES: No pedal edema. No calf tenderness. NEUROLOGICAL: Patient is lethargic but awake, alert and oriented x3. Cranial nerves 2 through 12 are grossly intact. - Labs CBC & Chem 7: 06/23/19 07:58 06/23/19 07:58 Labs: Abnormal Lab Results - Last 24 Hours (Table) 06/21/19 06/23/19 06/23/19 Range/Units 12:12 05:54 07:58 WBC 0.8 L* (3.8-10.6) k/uL RBC 2.23 L (3.80-5.40) m/uL Hgb 6.5 L* (11.4-16.0) gm/dL Hct 19.0 L* (34.0-46.0) % Plt Count 12 L* (150-450) k/uL Sodium (137-145) mmol/L Creatinine (0.52-1.04) mg/dL Glucose (74-99) mg/dL POC Glucose (mg/dL) 147 H (75-99) mg/dL Calcium (8.4-10.2) mg/dL AST (14-36) U/L Total Protein (6.3-8.2) g/dL Albumin (3.5-5.0) g/dL Crossmatch See Detail 06/23/19 06/23/19 06/23/19 Range/Units 07:58 13:01 17:05 WBC (3.8-10.6) k/uL RBC (3.80-5.40) m/uL Hgb (11.4-16.0) gm/dL Hct (34.0-46.0) % Plt Count (150-450) k/uL Sodium 136 L (137-145) mmol/L Creatinine 0.32 L (0.52-1.04) mg/dL Glucose 143 H (74-99) mg/dL POC Glucose (mg/dL) 169 H 142 H (75-99) mg/dL Calcium 7.6 L (8.4-10.2) mg/dL AST 11 L (14-36) U/L Total Protein 4.8 L (6.3-8.2) g/dL Albumin 2.7 L (3.5-5.0) g/dL Crossmatch 06/23/19 Range/Units 23:37 WBC (3.8-10.6) k/uL RBC (3.80-5.40) m/uL Hgb (11.4-16.0) gm/dL Hct (34.0-46.0) % Plt Count (150-450) k/uL Sodium (137-145) mmol/L Creatinine (0.52-1.04) mg/dL Glucose (74-99) mg/dL POC Glucose (mg/dL) 147 H (75-99) mg/dL Calcium (8.4-10.2) mg/dL AST (14-36) U/L Total Protein (6.3-8.2) g/dL Albumin (3.5-5.0) g/dL Crossmatch Assessment and Plan Assessment: Severe pancytopenia, neutropenia, and thrombocytopenia secondary to chronic lymphoid leukemia on chemotherapy Severe thrombocytopenia requiring multiple platelet transfusions. Platelets today are 12. Hemoglobin is 6.5. 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 Multiple medical consultations are following closely. Infectious disease is following closely. Bone marrow biopsy done today and may take up to 7 days for report. Extremely guarded prognosis. Further recommendations to follow. Case management and licensed master social worker following closely. Once the patient is improved and stabilized, PT/OT and possible ECF rehab.
[2019-06-24] MEDS: 1: MVI, ADULT NO.4 WITH VIT K 10 ML, TRACE (CONC-1ML/DOSE) 1 ML, POTASSIUM ACETATE 20 ME IV SCH ×14 (04:24→19:49)
[2019-06-24] MEDS: AZTREONAM 2 GM in SODIUM CHLORIDE 0.9% 100 ML IVPB SCH ×2 (04:24→12:42)
[2019-06-24] MEDS: ONDANSETRON 4 MG/2 ML VIAL IVP PRN (04:45)
[2019-06-24] MEDS: metroNIDAZOLE-NS PMX 500 MG in SALINE 1 100ML.BAG IVPB SCH (05:47)
[2019-06-24] MEDS: SODIUM CHLORIDE 0.9% 500 ML 500 ML IV SCH ×2 (05:49→20:42)
[2019-06-24 06:06] LABS: Glucose,Whole Blood 150 mg/dL (75-99)
[2019-06-24] MEDS: INSULIN ASPART (NovoLOG) 100 UNIT/ML VIAL SQ SCH ×3 (06:11→17:48)
[2019-06-24 09:03] LABS: African American GFR (CKD) >90 (>60 ml/min/1.73 sqM); Anion Gap 6 mmol/L; Blood Urea Nitrogen 17 mg/dL (7-17); Calcium 7.7 mg/dL (8.4-10.2); Carbon Dioxide 25 mmol/L (22-30); Chloride 106 mmol/L (98-107); Glucose 143 mg/dL (74-99); Magnesium 1.9 mg/dL (1.6-2.3); Phosphorus 3.6 mg/dL (2.5-4.5); Potassium 4.1 mmol/L (3.5-5.1); Sodium 137 mmol/L (137-145)
[2019-06-24] MEDS: FUROSEMIDE 10 MG/ML 4 ML VIAL IV SCH (10:00)
[2019-06-24] MEDS: hydrALAZINE HCL 25 MG TAB PO PRN (10:01)
[2019-06-24] MEDS: ALLOPURINOL 300 MG TAB PO SCH (10:01)
[2019-06-24] MEDS: amLODIPine 5 MG TAB PO SCH ×2 (10:01→20:41)
[2019-06-24] MEDS: FILGRASTIM-SNDZ 480 MCG/0.8 ML SYRINGE SQ SCH (10:01)
[2019-06-24] MEDS: PANTOPRAZOLE 40 MG TABLET PO SCH ×2 (10:01→17:48)
[2019-06-24] MEDS: guaiFENesin 600 MG TABLET.ER PO SCH ×2 (10:01→20:46)
[2019-06-24] MEDS: CALCIUM CARBONATE 500 MG CHEWABLE PO PRN (10:04)
--- NOTE | 2019-06-24 10:20 | P.PN ---
Subjective Progress Note Date: 06/24/19 Principal diagnosis: Pancytopenia secondary to CLL, completed first cycle of chemo/monoclonal antibody therapy In follow-up today patient is sleeping with CPAP on. She states less coughing with the CPAP on. She continues on TPN, states that it makes it so she is not very hungry. She denies any fevers, nausea, vomiting, bleeding, her right hand is very sore from trauma a phlebotomy, she continues to have incontinence of stool, diarrhea. She denies any pain. She is progressively weakening. Objective - Vital Signs Vital signs: Vital Signs Temp 97.8 F 06/24/19 04:57 Pulse 85 06/24/19 04:57 Resp 18 06/24/19 04:57 BP 119/58 06/24/19 04:57 Pulse Ox 97 06/24/19 04:57 Intake & Output 06/23/19 06/24/19 06/24/19 18:59 06:59 18:59 Intake Total 2818 340 Output Total 300 Balance 2518 340 Weight 93.168 kg 94.5 kg Intake: IV 370 Fat Emulsion 20% 250 ml @ 200 20.833 mls/hr IV MoWeFr [facility] Rx#:[id number] Sodium Chloride 0.9% 500 120 ml 500 ml @ 20 mls/hr IV .Q24H [facility] Rx#:[id number] Intake, IV Titration 1228 100 Amount Aztreonam 2 gm In Sodium 100 100 Chloride 0.9% 100 ml @ 100 mls/hr IVPB Q8H [facility] Rx#:[id number] Potassium Acetate 20 meq 1028 Calcium Gluconate 1 gm Magnesium Sulfate gm 1 gm Sodium Chloride 2.5MEQ/ ml Vial 15 meq In Amino Acid 4.25%-D10w+Lytes*E* 1,000 ml @ 70 mls/hr IV . BY DURATION [facility] Rx#: [id number] metroNIDAZOLE-NS PMX 500 100 mg In Saline 1 100ml.bag @ 100 mls/hr IVPB Q8H [facility] Rx#:[id number] Oral 600 240 Blood Product 620 Rc Irr As1 Unit 310 [id number] Output: Stool 300 Other: Voiding Method Bedside Commode Bedside Commode Diaper Diaper Incontinent Incontinent # Voids 5 2 - Constitutional General appearance: Present: cooperative, no acute distress, obese - EENT Eyes: Present: anicteric sclerae, EOMI ENT: Present: hearing grossly normal - Respiratory Respiratory: bilateral: diminished ([employer] effort) - Cardiovascular Heart sounds: normal: S1, S2 - Peripheral edema leg Peripheral Edema: bilateral: Trace - Gastrointestinal General gastrointestinal: Present: normal bowel sounds, soft, tenderness - Neurologic Neurologic: Present: CNII-XII intact - Musculoskeletal Musculoskeletal: Present: generalized weakness - Psychiatric Psychiatric: Present: A&O x's 3, appropriate affect, intact judgment & insight - Labs CBC & Chem 7: 06/23/19 07:58 06/24/19 07:10 Labs: Abnormal Lab Results - Last 24 Hours (Table) 06/21/19 06/23/19 06/23/19 Range/Units 12:12 07:58 13:01 WBC 0.8 L* (3.8-10.6) k/uL RBC 2.23 L (3.80-5.40) m/uL Hgb 6.5 L* (11.4-16.0) gm/dL Hct 19.0 L* (34.0-46.0) % Plt Count 12 L* (150-450) k/uL Creatinine (0.52-1.04) mg/dL Glucose (74-99) mg/dL POC Glucose (mg/dL) 169 H (75-99) mg/dL Calcium (8.4-10.2) mg/dL Crossmatch See Detail 06/23/19 06/23/19 06/24/19 Range/Units 17:05 23:37 06:04 WBC (3.8-10.6) k/uL RBC (3.80-5.40) m/uL Hgb (11.4-16.0) gm/dL Hct (34.0-46.0) % Plt Count (150-450) k/uL Creatinine (0.52-1.04) mg/dL Glucose (74-99) mg/dL POC Glucose (mg/dL) 142 H 147 H 150 H (75-99) mg/dL Calcium (8.4-10.2) mg/dL Crossmatch 06/24/19 Range/Units 07:10 WBC (3.8-10.6) k/uL RBC (3.80-5.40) m/uL Hgb (11.4-16.0) gm/dL Hct (34.0-46.0) % Plt Count (150-450) k/uL Creatinine 0.34 L (0.52-1.04) mg/dL Glucose 143 H (74-99) mg/dL POC Glucose (mg/dL) (75-99) mg/dL Calcium 7.7 L (8.4-10.2) mg/dL Crossmatch Assessment and Plan (1) Abdominal pain Narrative/Plan: Multifactorial, including a degree of neutropenic colitis, persistent diarrhea. We are attempting to correct the underlying causes. Patient is being supported with TPN, clear liquids only Current Visit: Yes Status: Acute Priority: High Code(s): R10.9 - UNSPECIFIED ABDOMINAL PAIN SNOMED Code(s): 82184969 (2) Pancytopenia Narrative/Plan: Secondary to disease. Bone marrow biopsy performed yesterday, pending results. Still pending today's CBC results, transfusion requirements remain the same: Transfuse for hemoglobin less than 7 or symptomatic, transfused with platelets for count less than 10,000 or symptomatic. Irradiated blood products. Crossmatched platelets. Patient continues on growth factor support. Current Visit: Yes Status: Acute Priority: High Code(s): D61.818 - OTHER PANCYTOPENIA SNOMED Code(s): 039547227 (3) Moderate protein-calorie malnutrition Narrative/Plan: Continue TPN for now. Patient on clear liquids Current Visit: Yes Status: Acute Priority: High Code(s): E44.0 - MODERATE PROTEIN-CALORIE MALNUTRITION SNOMED Code(s): 467702295 (4) Physical debility Narrative/Plan: Cont to encourage activity as tolerated Current Visit: Yes Status: Acute Priority: High Code(s): R53.81 - OTHER MALAISE SNOMED Code(s): 52637410 (5) Hypogammaglobulinemia Current Visit: Yes Status: Acute Priority: High Code(s): D80.1 - NON FAMILIAL HYPOGAMMAGLOBULINEMIA SNOMED Code(s): 557045908 (6) CLL (chronic lymphocytic leukemia) Narrative/Plan: Rituximab and bendeka days 1 and 2 is complete. Ongoing monitoring of counts Current Visit: Yes Status: Chronic Priority: High Code(s): C91.90 - LYMPHOID LEUKEMIA, UNSPECIFIED NOT HAVING ACHIEVED REMISSION SNOMED Code(s): 58578792 (7) Bacteremia due to Pseudomonas Current Visit: Yes Status: Resolved Priority: High Code(s): R78.81 - BACTEREMIA SNOMED Code(s): 482068492200 Plan: Icepack to right hand, from phlebotomy. Pt being followed by IM, Surg, Onc, ID. She is aware of her high risk situation . Doctor attests: I performed a history and physical examination of this patient, developed impression and plan of care. Discussed with dictator. I agree with dictators note, documented as a scribe.
[2019-06-24 10:34] LABS: Basophils % (A) 0 %; Eosinophils % (A) 2 %; HCT 20.7 % (34.0-46.0); HGB 7.2 gm/dL (11.4-16.0); Lymphocytes # (A) 0.8 k/uL (1.0-4.8); Lymphocytes % (A) 73 %; MCHC 34.9 g/dL (31.0-37.0); MCV 86.1 fL (80.0-100.0); Mean Platelet Volume 9.6; Monocytes % (A) 4 %; Neutrophils % (A) 18 %; RDW 13.5 % (11.5-15.5)
[2019-06-24 10:38] LABS: WBC 1.1 k/uL (3.8-10.6)
[2019-06-24 10:39] LABS: Platelet Count 6 k/uL (150-450)
[2019-06-24 11:38] LABS: Glucose,Whole Blood 163 mg/dL (75-99)
[2019-06-24 12:14] LABS: Neutrophils # (A) 0.2 k/uL (1.3-7.7)
[2019-06-24] MEDS: ACETAMINOPHEN TAB 325 MG TAB PO PRN ×2 (12:42→20:41)
[2019-06-24] MEDS: traMADol 50 MG TAB PO PRN (15:00)
--- NOTE | 2019-06-24 16:29 | P.PN ---
Subjective Progress Note Date: 06/24/19 Principal diagnosis: This is a 73-year-old woman who was admitted with pancytopenia, sepsis, acute hypoxic respiratory failure, hypokalemia and was currently receiving chemotherapy for chronic lymphoid leukemia and is being closely monitored. Patient is being followed by multiple consultations including oncology surgery, infectious disease, and pulmonary. This morning patient was nauseated with some vomiting noted that was relieved with Zofran. Patient's platelets this morning were 6 and currently receiving a transfusion at this time. Hemoglobin is 7.4 and will continue to monitor closely. Current potassium is 4.1. Patient is lying in bed in no acute distress stating that she feels fatigued and weak and unable to increase her energy and strength. PT/OT is following. Guarded prognosis. 06/12/2019 Patient is sitting up in bed in no acute distress. No increase in nausea or vomiting today. Patient is tolerating full liquids at this time and may advance as tolerated. Patient denies any other issues overnight. Patient denies any chest pain, shortness of breath, or palpitations at this time. Patient remains afebrile. Patient is still having some abdominal discomfort in the lower rib cage area on the sides due to her cough she states. Will continue to monitor closely. Hematology oncology is following closely. Guarded prognosis. 06/13/2019 Patient is sitting up in bed in no acute distress. A friend or family at the bedside visiting. Patient is tolerating diet and denies any nausea or vomiting at this time. Diet has been advanced. Patient denies any chest pain, shortness of breath, or palpitations at this time. Patient did have a low-grade fever today. Infectious disease is following. Patient antibiotics are currently oral Cipro and Flagyl and will continue. Patient is requesting something more for the cough as she continues to have a cough with no phlegm production. Robitussin-AC was ordered. Patient states that Tessalon Perles were not helping. Patient is having some mild side pain at her ribs due to the cough. PT/OT are following. Patient has not had the strength to get up and work with them at this time. Will continue to encourage working with PT/OT. Patient's hemoglobin and platelets have much improved today. Patient's hemoglobin is 7.8 and platelets are 22. Oncology is following closely. Discussed with the patient at length today about rehab as it would not be in her best interest to return home at this time due to the weakness and fatigue. Patient has agreed to a rehab. Case management and social work are working on possible placement. Dr. Da Silva was consulted and awaiting report. Guarded prognosis. 06/17/2019 This is a 73-year-old woman who was admitted with multiple complex medical issue s with severe pancytopenia, leukopenia, and significant thrombocytopenia, CLL on chemotherapy and is being closely monitored. Hematology/oncology Dr. Oliva is following closely and patient is to remain nothing by mouth except educations, ice chips, popsicles. The patient is currently being maintained on TPN. Patient continues to have mild upper abdominal discomfort on the left and right sides the patient states it is due to the cough that she is still experiencing. Patient is very fatigued and lethargic today. Patient's hemoglobin today is 6.5 and her platelet count is 5. Patient is going to be transfused with 1 unit PRBC and 1 unit of platelets. Will continue to monitor labs closely. Patient seems more sad and discouraged today after receiving her lab values and states she just doesn't understand why nothing is improving. Discussed with the patient at length today about these findings and will continue to monitor. Family is at the bedside. Guarded prognosis. 06/18/2019 Patient is sitting up at the chair in no acute distress. Patients platelet count was low today again current platelet count is 9 and currently awaiting transfusion. Hemoglobin is 6.8 and will be transfused as well. Dr. Oliva is following closely. Patient continues to be nothing by mouth at this time except for medications and ice chips. Patient is still having a lot of mid abdominal pain and discomfort due to her cough. Patient is taking Robitussin-AC for the cough. Patient denies any chest pain, shortness of breath, or palpitations at this time. Patient denies any nausea or vomiting and is currently nothing by mouth and on TPN. patient is currently afebrile. Chest x-ray done yesterday sh ows right upper lobe opacities that are stable with new perihilar and left costophrenic angle opacities. Multifocal pneumonia is likely. Infectious disease is following. Patient is currently on IV antibiotics in the form of Aztreonam and Flagyl. Guarded prognosis. 06/19/2019 Patient is sitting up in the chair in no acute distress. Patient did not receive a unit of packed red blood cells yesterday and hemoglobin today is 6.1. There is a unit ready per lab and will be transfused after antibiotics have finished. Platelets today are 9 and will be transfused later today. Patient continues to be nothing by mouth except for medications and ice chips at this time still. Patient states there are no new changes from yesterday and is still having a dry hacking cough with discomfort on the sides of her abdomen near her rib cage. Patient is denying any chest pain or shortness of breath at this time. Patient is afebrile. Patient continues to have a decrease in strength and is going back to bed to rest issue as she will be working with PT/OT this afternoon. Family is at the bedside. Chest x-ray yesterday shows some increase in volume and patient will be given IV Lasix 40 mg daily. Influenza testing will also be done and is currently pending. Guarded prognosis. 06/20/19 Patient is sitting up in no acute distress. Patient was able to work with PT/OT yesterday with minimal to moderated assist and walked a few feet and and tolerated well. Patient platelets were 15 and hemoglobin is 7.4 today requiring no transfusions at this time. Will continue to monitor. Oncology is following closely. Patients diet has advanced and tolerating well. Patient still has a dry cough at times that is causing bilateral rib cage side pain with coughing spells. patient states that the pain has decreased. Influenza yesterday was negative. Guarded prognosis. 06/23/2019 Patient is sitting up in bed with sister at the bedside in no acute distress. Patient has just returned from a bone marrow biopsy with Dr. Oliva and is being closely monitored. Patient hemoglobin is 6.5 with a platelet count of 12 this morning. Patient will be receiving 1 unit of PRBC's this am. Multiple consultants are following at this time. Patient is currently on Flagyl and Aztreonam per infectious diseases recommendations. 06/24/2019 Patient is lying in bed in no acute distress. Patient continues to have increased fatigue and an inability to work with PT/OT due to her weakness. Patient currently still has diarrhea at this time and is being closely monitored. Multiple medical consultants are following. Oncology is following closely. Patient is currently still on TPN and is able to have clear liquids but states she does not have an appetite at this time. Patient continues to have a dry, hacking cough that is causing bilateral side pain. Patient's hemoglobin is 7.2 today with a platelet count of 6 and will receive a transfusion of platelets today. Extremely guarded prognosis. Objective - Vital Signs Vital signs: Vital Signs Temp 98.9 F 06/24/19 15:26 Pulse 88 06/24/19 15:26 Resp 16 06/24/19 15:26 BP 120/88 06/24/19 15:26 Pulse Ox 97 06/24/19 15:26 Intake & Output 06/23/19 06/24/19 06/24/19 18:59 06:59 18:59 Intake Total 2818 340 120 Output Total 300 Balance 2518 340 120 Weight 93.168 kg 94.5 kg Intake: IV 370 Fat Emulsion 20% 250 ml @ 200 20.833 mls/hr IV MoWeFr [facility] Rx#:[id number] Sodium Chloride 0.9% 500 120 ml 500 ml @ 20 mls/hr IV .Q24H [facility] Rx#:[id number] Intake, IV Titration 1228 100 Amount Aztreonam 2 gm In Sodium 100 100 Chloride 0.9% 100 ml @ 100 mls/hr IVPB Q8H [facility] Rx#:[id number] Potassium Acetate 20 meq 1028 Calcium Gluconate 1 gm Magnesium Sulfate gm 1 gm Sodium Chloride 2.5MEQ/ ml Vial 15 meq In Amino Acid 4.25%-D10w+Lytes*E* 1,000 ml @ 70 mls/hr IV . BY DURATION [facility] Rx#: [id number] metroNIDAZOLE-NS PMX 500 100 mg In Saline 1 100ml.bag @ 100 mls/hr IVPB Q8H [facility] Rx#:[id number] Oral 600 240 120 Blood Product 620 0 Platelet Irr Pheresis 2 0 Acda Unit [id number] Rc Irr As1 Unit 310 [id number] Output: Stool 300 Other: Voiding Method Bedside Commode Bedside Commode Bedside Commode Diaper Diaper Diaper Incontinent Incontinent Incontinent # Voids 5 2 3 # Bowel Movements 3 - Exam Gen: This is a 73-year-old female lying in bed in no acute distress. Vital signs are stable. Temp is 99.3 F, pulse is 94, respirations are 18, blood pre ssure is 142/69, oxygen saturation is 94% on room air. HEENT: Head is atraumatic, normocephalic. Pupils equal, round. Sclerae is anicteric. Oral mucosa is dry and pale. Left eyelid closed NECK: Supple. No JVD. No lymphadenopathy. No thyromegaly. LUNGS: Diminished breath sounds at the bases with a few scattered rhonchi and crackles noted. no wheezing noted on exam. No intercostal retractions. HEART: S1 and S2 are muffled. No murmur. ABDOMEN: Soft. Bowel sounds are present. No masses. Mild tenderness bilaterally upon palpation underneath the rib cage. EXTREMITIES: No pedal edema. No calf tenderness. NEUROLOGICAL: Patient is lethargic but awake, alert and oriented x3. Cranial nerves 2 through 12 are grossly intact. - Labs CBC & Chem 7: 06/24/19 07:10 06/24/19 07:10 Labs: Abnormal Lab Results - Last 24 Hours (Table) 06/23/19 06/23/19 06/24/19 Range/Units 17:05 23:37 06:04 WBC (3.8-10.6) k/uL RBC (3.80-5.40) m/uL Hgb (11.4-16.0) gm/dL Hct (34.0-46.0) % Plt Count (150-450) k/uL Neutrophils # (1.3-7.7) k/uL Lymphocytes # (1.0-4.8) k/uL Creatinine (0.52-1.04) mg/dL Glucose (74-99) mg/dL POC Glucose (mg/dL) 142 H 147 H 150 H (75-99) mg/dL Calcium (8.4-10.2) mg/dL 06/24/19 06/24/19 06/24/19 Range/Units 07:10 07:10 11:36 WBC 1.1 L* (3.8-10.6) k/uL RBC 2.40 L (3.80-5.40) m/uL Hgb 7.2 L (11.4-16.0) gm/dL Hct 20.7 L (34.0-46.0) % Plt Count 6 L* (150-450) k/uL Neutrophils # 0.2 L* (1.3-7.7) k/uL Lymphocytes # 0.8 L (1.0-4.8) k/uL Creatinine 0.34 L (0.52-1.04) mg/dL Glucose 143 H (74-99) mg/dL POC Glucose (mg/dL) 163 H (75-99) mg/dL Calcium 7.7 L (8.4-10.2) mg/dL Assessment and Plan Assessment: Severe pancytopenia, neutropenia, and thrombocytopenia secondary to chronic lymphoid leukemia on chemotherapy Severe thrombocytopenia requiring multiple platelet transfusions. Platelets today are 6. Hemoglobin is 7.2. 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 Multiple medical consultations are following closely. Infectious disease is following closely. Await today's report from infectious disease as it was mentioned that she may be discontinued on antibiotics. Spoke with nursing staff and attempting to contact infectious disease as well. Bone marrow biopsy still pending and may take up to 7 days for report. Extremely guarded prognosis. Further recommendations to follow. Case management and addiction social worker following closely. Once the patient is improved and stabilized, PT/OT and possible ECF rehab.
[2019-06-24 17:04] LABS: Glucose,Whole Blood 142 mg/dL (75-99)
[2019-06-24] MEDS: guaiFENesin-Coden 100-10MG/5ML 10 ML CUP PO PRN (17:43)
[2019-06-24] MEDS: SENNOSIDES-DOCUSATE SODIUM 1 EACH TAB PO PRN (20:41)
[2019-06-24] MEDS: ATORVASTATIN 40 MG TAB PO SCH (20:41)
--- NOTE | 2019-06-24 23:31 | PN ---
PROGRESS NOTE DATE OF SERVICE: 06/24/2019. REASON FOR FOLLOWUP: Diverticulitis with bacteremia. INTERVAL HISTORY: The patient is currently afebrile. She has been breathing slightly comfortably. Cough has decreased in intensity. No nausea, no vomiting, no abdominal pain or any diarrhea. PHYSICAL EXAMINATION: Blood pressure 134/62 with a pulse of 89, temperature of 98. She is 98% . General description is an elderly female lying in bed in no distress. RESPIRATORY SYSTEM: Unlabored breathing. Clear to auscultation anteriorly. HEART: S1, S2. Regular rate and rhythm. ABDOMEN: Soft. No tenderness. LABS: Hemoglobin 7.2, white count 1.1, platelet count of 6, creatinine 0.34. DIAGNOSTIC IMPRESSION AND PLAN: Patient with pseudomonas bacteremia and diverticulitis. Underlying infection has been more than adequately treated. She did have a repeat CT on 06/22/2019 which did not show any evidence of any residual diverticulitis. Hence we will discontinue her antibiotic and monitor the patient closely off antibiotic therapy. Continue with supportive care. MMODL / IJN: [id number] /
[2019-06-25 00:09] LABS: Glucose,Whole Blood 144 mg/dL (75-99)
[2019-06-25] MEDS: INSULIN ASPART (NovoLOG) 100 UNIT/ML VIAL SQ SCH ×4 (00:10→18:02)
[2019-06-25] MEDS: ONDANSETRON 4 MG/2 ML VIAL IVP PRN (03:36)
[2019-06-25 06:24] LABS: Glucose,Whole Blood 161 mg/dL (75-99)
[2019-06-25 08:30] LABS: MCH 30.1 pg (25.0-35.0); Mean Platelet Volume 7.4; RBC 2.31 m/uL (3.80-5.40)
[2019-06-25 08:38] LABS: WBC 1.1 k/uL (3.8-10.6)
[2019-06-25 08:39] LABS: HCT 19.9 % (34.0-46.0); HGB 6.9 gm/dL (11.4-16.0)
[2019-06-25 08:40] LABS: Platelet Count 11 k/uL (150-450)
[2019-06-25 08:59] LABS: African American GFR (CKD) >90 (>60 ml/min/1.73 sqM); Anion Gap 7 mmol/L; Blood Urea Nitrogen 17 mg/dL (7-17); Calcium 7.9 mg/dL (8.4-10.2); Carbon Dioxide 25 mmol/L (22-30); Chloride 106 mmol/L (98-107); Glucose 146 mg/dL (74-99); Phosphorus 3.8 mg/dL (2.5-4.5); Potassium 3.9 mmol/L (3.5-5.1); Sodium 138 mmol/L (137-145)
[2019-06-25] MEDS: FAT EMULSION 20% 250 ML IV SCH (09:38)
[2019-06-25] MEDS: FILGRASTIM-SNDZ 480 MCG/0.8 ML SYRINGE SQ SCH (09:38)
[2019-06-25] MEDS: guaiFENesin 600 MG TABLET.ER PO SCH ×2 (09:39→20:52)
[2019-06-25] MEDS: FUROSEMIDE 10 MG/ML 4 ML VIAL IV SCH (09:39)
[2019-06-25] MEDS: PANTOPRAZOLE 40 MG TABLET PO SCH ×2 (09:39→18:02)
[2019-06-25] MEDS: amLODIPine 5 MG TAB PO SCH ×2 (09:39→20:52)
[2019-06-25] MEDS: ALLOPURINOL 300 MG TAB PO SCH (09:39)
[2019-06-25] MEDS: hydrALAZINE HCL 25 MG TAB PO PRN (09:39)
[2019-06-25 10:07] LABS: Neutrophils % (M) 15 %
[2019-06-25 10:09] LABS: Band Neutrophils % 1 %; Lymphocytes # (M) 0.87 k/uL (1.0-4.8); Monocytes # (M) 0.06 k/uL (0-1.0); Nucleated Red Blood Cells 0 /100 WBC (0-0); Total Cells Counted 100
[2019-06-25 11:07] LABS: Glucose,Whole Blood 159 mg/dL (75-99)
[2019-06-25] MEDS: 1: MVI, ADULT NO.4 WITH VIT K 10 ML, TRACE (CONC-1ML/DOSE) 1 ML, POTASSIUM ACETATE 20 ME IV SCH ×7 (12:16)
--- NOTE | 2019-06-25 14:44 | P.PN ---
Subjective Progress Note Date: 06/25/19 Principal diagnosis: This is a 73-year-old woman who was admitted with pancytopenia, sepsis, acute hypoxic respiratory failure, hypokalemia and was currently receiving chemotherapy for chronic lymphoid leukemia and is being closely monitored. Patient is being followed by multiple consultations including oncology surgery, infectious disease, and pulmonary. This morning patient was nauseated with some vomiting noted that was relieved with Zofran. Patient's platelets this morning were 6 and currently receiving a transfusion at this time. Hemoglobin is 7.4 and will continue to monitor closely. Current potassium is 4.1. Patient is lying in bed in no acute distress stating that she feels fatigued and weak and unable to increase her energy and strength. PT/OT is following. Guarded prognosis. 06/12/2019 Patient is sitting up in bed in no acute distress. No increase in nausea or vomiting today. Patient is tolerating full liquids at this time and may advance as tolerated. Patient denies any other issues overnight. Patient denies any chest pain, shortness of breath, or palpitations at this time. Patient remains afebrile. Patient is still having some abdominal discomfort in the lower rib cage area on the sides due to her cough she states. Will continue to monitor closely. Hematology oncology is following closely. Guarded prognosis. 06/13/2019 Patient is sitting up in bed in no acute distress. A friend or family at the bedside visiting. Patient is tolerating diet and denies any nausea or vomiting at this time. Diet has been advanced. Patient denies any chest pain, shortness of breath, or palpitations at this time. Patient did have a low-grade fever today. Infectious disease is following. Patient antibiotics are currently oral Cipro and Flagyl and will continue. Patient is requesting something more for the cough as she continues to have a cough with no phlegm production. Robitussin-AC was ordered. Patient states that Tessalon Perles were not helping. Patient is having some mild side pain at her ribs due to the cough. PT/OT are following. Patient has not had the strength to get up and work with them at this time. Will continue to encourage working with PT/OT. Patient's hemoglobin and platelets have much improved today. Patient's hemoglobin is 7.8 and platelets are 22. Oncology is following closely. Discussed with the patient at length today about rehab as it would not be in her best interest to return home at this time due to the weakness and fatigue. Patient has agreed to a rehab. Case management and social work are working on possible placement. Dr. Da Silva was consulted and awaiting report. Guarded prognosis. 06/17/2019 This is a 73-year-old woman who was admitted with multiple complex medical issue s with severe pancytopenia, leukopenia, and significant thrombocytopenia, CLL on chemotherapy and is being closely monitored. Hematology/oncology Dr. Oliva is following closely and patient is to remain nothing by mouth except educations, ice chips, popsicles. The patient is currently being maintained on TPN. Patient continues to have mild upper abdominal discomfort on the left and right sides the patient states it is due to the cough that she is still experiencing. Patient is very fatigued and lethargic today. Patient's hemoglobin today is 6.5 and her platelet count is 5. Patient is going to be transfused with 1 unit PRBC and 1 unit of platelets. Will continue to monitor labs closely. Patient seems more sad and discouraged today after receiving her lab values and states she just doesn't understand why nothing is improving. Discussed with the patient at length today about these findings and will continue to monitor. Family is at the bedside. Guarded prognosis. 06/18/2019 Patient is sitting up at the chair in no acute distress. Patients platelet count was low today again current platelet count is 9 and currently awaiting transfusion. Hemoglobin is 6.8 and will be transfused as well. Dr. Oliva is following closely. Patient continues to be nothing by mouth at this time except for medications and ice chips. Patient is still having a lot of mid abdominal pain and discomfort due to her cough. Patient is taking Robitussin-AC for the cough. Patient denies any chest pain, shortness of breath, or palpitations at this time. Patient denies any nausea or vomiting and is currently nothing by mouth and on TPN. patient is currently afebrile. Chest x-ray done yesterday sh ows right upper lobe opacities that are stable with new perihilar and left costophrenic angle opacities. Multifocal pneumonia is likely. Infectious disease is following. Patient is currently on IV antibiotics in the form of Aztreonam and Flagyl. Guarded prognosis. 06/19/2019 Patient is sitting up in the chair in no acute distress. Patient did not receive a unit of packed red blood cells yesterday and hemoglobin today is 6.1. There is a unit ready per lab and will be transfused after antibiotics have finished. Platelets today are 9 and will be transfused later today. Patient continues to be nothing by mouth except for medications and ice chips at this time still. Patient states there are no new changes from yesterday and is still having a dry hacking cough with discomfort on the sides of her abdomen near her rib cage. Patient is denying any chest pain or shortness of breath at this time. Patient is afebrile. Patient continues to have a decrease in strength and is going back to bed to rest issue as she will be working with PT/OT this afternoon. Family is at the bedside. Chest x-ray yesterday shows some increase in volume and patient will be given IV Lasix 40 mg daily. Influenza testing will also be done and is currently pending. Guarded prognosis. 06/20/19 Patient is sitting up in no acute distress. Patient was able to work with PT/OT yesterday with minimal to moderated assist and walked a few feet and and tolerated well. Patient platelets were 15 and hemoglobin is 7.4 today requiring no transfusions at this time. Will continue to monitor. Oncology is following closely. Patients diet has advanced and tolerating well. Patient still has a dry cough at times that is causing bilateral rib cage side pain with coughing spells. patient states that the pain has decreased. Influenza yesterday was negative. Guarded prognosis. 06/23/2019 Patient is sitting up in bed with sister at the bedside in no acute distress. Patient has just returned from a bone marrow biopsy with Dr. Oliva and is being closely monitored. Patient hemoglobin is 6.5 with a platelet count of 12 this morning. Patient will be receiving 1 unit of PRBC's this am. Multiple consultants are following at this time. Patient is currently on Flagyl and Aztreonam per infectious diseases recommendations. 06/24/2019 Patient is lying in bed in no acute distress. Patient continues to have increased fatigue and an inability to work with PT/OT due to her weakness. Patient currently still has diarrhea at this time and is being closely monitored. Multiple medical consultants are following. Oncology is following closely. Patient is currently still on TPN and is able to have clear liquids but states she does not have an appetite at this time. Patient continues to have a dry, hacking cough that is causing bilateral side pain. Patient's hemoglobin is 7.2 today with a platelet count of 6 and will receive a transfusion of platelets today. Extremely guarded prognosis. 06/25/2019 Patient is sitting up in the chair in no acute distress. Patient denies any chest pain, shortness of breath, or palpitations at this time. Patient is currently on clear liquids and tolerating but states it's not much of a selection sore eating has been very minimal. Patient is still maintained on TPN at this time. Patient denies any nausea or vomiting at this time but states that when she gets into a coughing spell she starts having dry heaves upon getting out of bed every morning. Patient currently has Robitussin with codeine as well as Tessalon Perles as needed for cough. Patient states that they are effective but when she receives the Robitussin with codeine she is unable to get anything else and the Robitussin only works for a very short time. Patient states that she has been getting up and working with PT/OT but is still quite fatigued on exertion. Patient's hemoglobin was 6.9 this morning and is currently receiving a unit of packed red blood cells. Patient's platelet count is 11 today. Patient's antibiotics have been discontinued per infectious disease at this time. Will continue to monitor closely. Extremely guarded prognosis. Objective - Vital Signs Vital signs: Vital Signs Temp 98.9 F 06/25/19 12:37 Pulse 90 06/25/19 12:37 Resp 16 06/25/19 12:37 BP 126/86 06/25/19 12:37 Pulse Ox 99 06/25/19 12:37 Intake & Output 06/24/19 06/25/19 06/25/19 18:59 06:59 18:59 Intake Total 421 1148 0 Output Total 350 Balance 71 1148 0 Weight 94 kg 94 kg Intake: Intake, IV Titration 1028 Amount Potassium Acetate 20 meq 1028 Calcium Gluconate 1 gm Magnesium Sulfate gm 1 gm Sodium Chloride 2.5MEQ/ ml Vial 15 meq In Amino Acid 4.25%-D10w+Lytes*E* 1,000 ml @ 70 mls/hr IV . BY [facility] Rx#: [id number] Oral 120 120 Blood Product 301 0 Platelet Irr Pheresis 2 301 Acda Unit [id number] Rc Irr As1 Unit 0 [id number] Output: Urine 350 Other: Voiding Method Bedside Commode Bedside Commode Bedside Commode Diaper Diaper Diaper Incontinent Incontinent Incontinent # Voids 3 1 # Bowel Movements 3 1 - Exam Gen: This is a 73-year-old female sitting up in the chair in no acute distress. Vital signs are stable. Temp is 98.3 F, pulse is 88, respirations are 18, b lood pressure is 122/65, oxygen saturation is 98% on room air. HEENT: Head is atraumatic, normocephalic. Pupils equal, round. Sclerae is anicteric. Oral mucosa is dry and pale. Left eyelid closed NECK: Supple. No JVD. No lymphadenopathy. No thyromegaly. LUNGS: Diminished breath sounds at the bases with a few scattered rhonchi noted. no wheezing noted on exam. No intercostal retractions. HEART: S1 and S2 are muffled. No murmur. ABDOMEN: Soft. Bowel sounds are present. No masses. Mild tenderness bilaterally upon palpation underneath the rib cage. Slightly improved. EXTREMITIES: No pedal edema. No calf tenderness. NEUROLOGICAL: Patient is awake, alert and oriented x3. Cranial nerves 2 through 12 are grossly intact. - Labs CBC & Chem 7: 06/25/19 07:24 06/25/19 07:24 Labs: Abnormal Lab Results - Last 24 Hours (Table) 06/24/19 06/24/19 06/25/19 Range/Units 07:10 16:53 00:08 WBC (3.8-10.6) k/uL RBC (3.80-5.40) m/uL Hgb (11.4-16.0) gm/dL Hct (34.0-46.0) % Plt Count (150-450) k/uL Neutrophils # 0.2 L* (1.3-7.7) k/uL Neutrophils # (Manual) (1.3-7.7) k/uL Lymphocytes # (Manual) (1.0-4.8) k/uL Creatinine (0.52-1.04) mg/dL Glucose (74-99) mg/dL POC Glucose (mg/dL) 142 H 144 H (75-99) mg/dL Calcium (8.4-10.2) mg/dL Crossmatch 06/25/19 06/25/19 06/25/19 Range/Units 06:23 07:24 07:24 WBC 1.1 L* (3.8-10.6) k/uL RBC 2.31 L (3.80-5.40) m/uL Hgb 6.9 L* (11.4-16.0) gm/dL Hct 19.9 L* (34.0-46.0) % Plt Count 11 L* D (150-450) k/uL Neutrophils # (1.3-7.7) k/uL Neutrophils # (Manual) 0.10 L* (1.3-7.7) k/uL Lymphocytes # (Manual) 0.87 L (1.0-4.8) k/uL Creatinine 0.35 L (0.52-1.04) mg/dL Glucose 146 H (74-99) mg/dL POC Glucose (mg/dL) 161 H (75-99) mg/dL Calcium 7.9 L (8.4-10.2) mg/dL Crossmatch 06/25/19 06/25/19 Range/Units 07:24 11:06 WBC (3.8-10.6) k/uL RBC (3.80-5.40) m/uL Hgb (11.4-16.0) gm/dL Hct (34.0-46.0) % Plt Count (150-450) k/uL Neutrophils # (1.3-7.7) k/uL Neutrophils # (Manual) (1.3-7.7) k/uL Lymphocytes # (Manual) (1.0-4.8) k/uL Creatinine (0.52-1.04) mg/dL Glucose (74-99) mg/dL POC Glucose (mg/dL) 159 H (75-99) mg/dL Calcium (8.4-10.2) mg/dL Crossmatch See Detail Assessment and Plan Assessment: Severe pancytopenia, neutropenia, and thrombocytopenia secondary to chronic lymphoid leukemia on chemotherapy Severe thrombocytopenia requiring multiple platelet transfusions. Platelets today are 11. Hemoglobin is 6.9. 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 Multiple medical consultations are following closely. Infectious disease is following closely. Antibiotics have been discontinued at this time per infectious disease recommendations. Will continue to monitor. Bone marrow biopsy still pending and may take up to 7 days for report. Encourage the patient to continue working with PT/OT for strength and mobility. Extremely guarded prognosis. Further recommendations to follow. Case management and social media manager following closely.
[2019-06-25 17:22] LABS: Glucose,Whole Blood 147 mg/dL (75-99)
--- NOTE | 2019-06-25 18:13 | PN ---
PROGRESS NOTE DATE OF SERVICE: 06/25/2019 REASON FOR FOLLOWUP: Diverticulitis and pseudomonas bacteremia. INTERVAL HISTORY: The patient is currently afebrile. The patient has been breathing comfortably. The patient's cough has improved. No nausea, no vomiting, no worsening abdominal pain or any diarrhea. PHYSICAL EXAMINATION: Blood pressure is 126/86, pulse of 90, temperature of 98.9. She is 99% on room air. General description is an elderly female up in the room in no distress. RESPIRATORY SYSTEM: Unlabored breathing with decreased breath sounds at the base. No wheeze. HEART: S1, S2. Regular rate and rhythm. ABDOMEN: Soft. No tenderness. LABS: Hemoglobin is 6.9, white count 1.1, BUN of 17, creatinine 0.35. DIAGNOSTIC IMPRESSION AND PLAN: Patient with pseudomonas bacteremia and diverticulitis that has been adequately treated. Patient will be monitored closely off antibiotic therapy. Continue with supportive care. CHRISTIANL / MILLYN: [phone] /
--- NOTE | 2019-06-25 18:14 | P.PN ---
Subjective Progress Note Date: 06/25/19 Principal diagnosis: Pancytopenia secondary to CLL, completed first cycle of chemo/monoclonal antibody therapy In follow-up today patient was seen getting up from the chair being taken back to bed by to person assist, she was able to stand on her own. She has no new complaints, no progressive problems, just stable. Objective - Vital Signs Vital signs: Vital Signs Temp 98.3 F 06/25/19 12:05 Pulse 88 06/25/19 12:05 Resp 18 06/25/19 12:05 BP 122/65 06/25/19 12:05 Pulse Ox 98 06/25/19 12:05 Intake & Output 06/24/19 06/25/19 06/25/19 18:59 06:59 18:59 Intake Total 421 120 0 Output Total 350 Balance 71 120 0 Weight 94 kg Intake: Oral 120 120 Blood Product 301 0 Platelet Irr Pheresis 2 301 Acda Unit [id number] Rc Irr As1 Unit 0 [id number] Output: Urine 350 Other: Voiding Method Bedside Commode Bedside Commode Bedside Commode Diaper Diaper Diaper Incontinent Incontinent Incontinent # Voids 3 1 # Bowel Movements 3 1 - Constitutional General appearance: Present: cooperative, no acute distress, obese - EENT Eyes: Present: anicteric sclerae, EOMI (left eye has slower EOMs) ENT: Present: hearing grossly normal - Respiratory Respiratory: bilateral: CTA - Cardiovascular Rhythm: regular Heart sounds: normal: S1, S2 Abnormal Heart Sounds: Absent: systolic murmur, diastolic murmur, rub, S3 Gallop, S4 Gallop, click, other - Peripheral edema leg Peripheral Edema: bilateral: Trace - Gastrointestinal General gastrointestinal: Present: normal bowel sounds, soft, tenderness - Integumentary Integumentary: Present: pale - Neurologic Neurologic: Present: CNII-XII intact - Musculoskeletal Musculoskeletal: Present: generalized weakness - Psychiatric Psychiatric: Present: A&O x's 3, appropriate affect, intact judgment & insight - Labs CBC & Chem 7: 06/25/19 07:24 06/25/19 07:24 Labs: Abnormal Lab Results - Last 24 Hours (Table) 06/24/19 06/24/19 06/25/19 Range/Units 07:10 16:53 00:08 WBC (3.8-10.6) k/uL RBC (3.80-5.40) m/uL Hgb (11.4-16.0) gm/dL Hct (34.0-46.0) % Plt Count (150-450) k/uL Neutrophils # 0.2 L* (1.3-7.7) k/uL Neutrophils # (Manual) (1.3-7.7) k/uL Lymphocytes # (Manual) (1.0-4.8) k/uL Creatinine (0.52-1.04) mg/dL Glucose (74-99) mg/dL POC Glucose (mg/dL) 142 H 144 H (75-99) mg/dL Calcium (8.4-10.2) mg/dL Crossmatch 06/25/19 06/25/19 06/25/19 Range/Units 06:23 07:24 07:24 WBC 1.1 L* (3.8-10.6) k/uL RBC 2.31 L (3.80-5.40) m/uL Hgb 6.9 L* (11.4-16.0) gm/dL Hct 19.9 L* (34.0-46.0) % Plt Count 11 L* D (150-450) k/uL Neutrophils # (1.3-7.7) k/uL Neutrophils # (Manual) 0.10 L* (1.3-7.7) k/uL Lymphocytes # (Manual) 0.87 L (1.0-4.8) k/uL Creatinine 0.35 L (0.52-1.04) mg/dL Glucose 146 H (74-99) mg/dL POC Glucose (mg/dL) 161 H (75-99) mg/dL Calcium 7.9 L (8.4-10.2) mg/dL Crossmatch 06/25/19 06/25/19 Range/Units 07:24 11:06 WBC (3.8-10.6) k/uL RBC (3.80-5.40) m/uL Hgb (11.4-16.0) gm/dL Hct (34.0-46.0) % Plt Count (150-450) k/uL Neutrophils # (1.3-7.7) k/uL Neutrophils # (Manual) (1.3-7.7) k/uL Lymphocytes # (Manual) (1.0-4.8) k/uL Creatinine (0.52-1.04) mg/dL Glucose (74-99) mg/dL POC Glucose (mg/dL) 159 H (75-99) mg/dL Calcium (8.4-10.2) mg/dL Crossmatch See Detail Assessment and Plan (1) Abdominal pain Narrative/Plan: Multifactorial, including a degree of neutropenic colitis, persistent diarrhea. We are attempting to correct the underlying causes. Patient is being supported with TPN, clear liquids only Current Visit: Yes Status: Acute Priority: High Code(s): R10.9 - UNSPECIFIED ABDOMINAL PAIN SNOMED Code(s): 47133053 (2) Pancytopenia Narrative/Plan: Secondary to disease. Bone marrow biopsy performed yesterday, pending results. Transfuse PRBCs today for hemoglobin less 6.9. Plt 11,000 today, no transfusion Irradiated blood products. Crossmatched platelets. Continue on growth factor support. Current Visit: Yes Status: Acute Priority: High Code(s): D61.818 - OTHER PANCYTOPENIA SNOMED Code(s): 327265275 (3) Moderate protein-calorie malnutrition Narrative/Plan: Continue TPN for now. Patient on clear liquids Current Visit: Yes Status: Acute Priority: High Code(s): E44.0 - MODERATE PROTEIN-CALORIE MALNUTRITION SNOMED Code(s): 174563626 (4) Physical debility Narrative/Plan: Cont to encourage activity as tolerated Current Visit: Yes Status: Acute Priority: High Code(s): R53.81 - OTHER MALAISE SNOMED Code(s): 12491522 (5) Hypogammaglobulinemia Current Visit: Yes Status: Acute Priority: High Code(s): D80.1 - NONFAMILIAL HYPOGAMMAGLOBULINEMIA SNOMED Code(s): 193674136 (6) CLL (chronic lymphocytic leukemia) Narrative/Plan: Rituximab and bendeka days 1 and 2 is complete. Pt previously received 3 cycles of Rituxan only. Her lymphocyte count improved dramatically but, marrow is not showing signs of recovery, she is still transfusion dependent. Her recent condition started early April 2019. To date, patient is had 24 units of packed red blood cells and 40 units of platelets. Patient's coagulation studies were evaluated to see if she needed cryo-, all within normal limits. Patient is status post bone marrow biopsy and aspirate, anxiously awaiting results. Attempted to get preliminary result today but unfortunately, that was not available. We'll check again early in the morning. Current Visit: Yes Status: Chronic Priority: High Code(s): C91.90 - LYMPHOID LEUKEMIA, UNSPECIFIED NOT HAVING ACHIEVED REMISSION SNOMED Code(s): 78129833 (7) Bacteremia due to Pseudomonas Current Visit: Yes Status: Resolved Priority: High Code(s): R78.81 - BACTEREMIA SNOMED Code(s): 652175929505 Plan: Icepack to right hand, from phlebotomy-bruising and pain improved. Pt being followed by IM, Surg, Onc, ID. She is aware of her high risk situation.
[2019-06-25 20:03] LABS: Glucose,Whole Blood 149 mg/dL (75-99)
[2019-06-25] MEDS: ATORVASTATIN 40 MG TAB PO SCH (20:52)
[2019-06-25] MEDS: guaiFENesin SYRUP 100MG/5ML 200 MG/10 ML CUP PO PRN (20:55)
[2019-06-25] MEDS: traMADol 50 MG TAB PO PRN (20:55)
[2019-06-26] MEDS: 1: MVI, ADULT NO.4 WITH VIT K 10 ML, TRACE (CONC-1ML/DOSE) 1 ML, CALCIUM GLUCONATE 1 GM, IV SCH ×12 (00:49→15:45)
[2019-06-26 00:51] LABS: Glucose,Whole Blood 145 mg/dL (75-99)
[2019-06-26] MEDS: ONDANSETRON 4 MG/2 ML VIAL IVP PRN ×2 (01:00→19:53)
[2019-06-26] MEDS: SODIUM CHLORIDE 0.9% 500 ML 500 ML IV SCH (01:00)
[2019-06-26] MEDS: INSULIN ASPART (NovoLOG) 100 UNIT/ML VIAL SQ SCH ×4 (01:01→17:31)
[2019-06-26 06:21] LABS: Glucose,Whole Blood 162 mg/dL (75-99)
[2019-06-26] MEDS: CALCIUM CARBONATE 500 MG CHEWABLE PO PRN (08:13)
[2019-06-26] MEDS: hydrALAZINE HCL 25 MG TAB PO PRN (08:13)
[2019-06-26] MEDS: PANTOPRAZOLE 40 MG TABLET PO SCH ×2 (08:13→17:30)
[2019-06-26] MEDS: FUROSEMIDE 10 MG/ML 4 ML VIAL IV SCH (08:13)
[2019-06-26] MEDS: amLODIPine 5 MG TAB PO SCH ×2 (08:14→20:38)
[2019-06-26] MEDS: guaiFENesin SYRUP 100MG/5ML 200 MG/10 ML CUP PO PRN ×2 (08:14→17:11)
[2019-06-26] MEDS: guaiFENesin 600 MG TABLET.ER PO SCH (08:14)
[2019-06-26] MEDS: ALLOPURINOL 300 MG TAB PO SCH (08:14)
[2019-06-26 09:03] LABS: Basophils % (A) 1 %; Eosinophils % (A) 2 %; HCT 22.4 % (34.0-46.0); Lymphocytes # (A) 1.1 k/uL (1.0-4.8); Lymphocytes % (A) 64 %; MCH 30.3 pg (25.0-35.0); MCHC 35.6 g/dL (31.0-37.0); MCV 85.3 fL (80.0-100.0); Mean Platelet Volume 12.5; Monocytes # (A) 0.1 k/uL (0-1.0); Monocytes % (A) 6 %; Neutrophils % (A) 25 %; RBC 2.63 m/uL (3.80-5.40); WBC 1.8 k/uL (3.8-10.6)
[2019-06-26 09:07] LABS: Neutrophils # (A) 0.4 k/uL (1.3-7.7); Platelet Count 8 k/uL (150-450)
[2019-06-26 09:14] LABS: African American GFR (CKD) >90 (>60 ml/min/1.73 sqM); Anion Gap 7 mmol/L; Blood Urea Nitrogen 17 mg/dL (7-17); Carbon Dioxide 26 mmol/L (22-30); Chloride 105 mmol/L (98-107); Glucose 138 mg/dL (74-99); Phosphorus 3.8 mg/dL (2.5-4.5); Potassium 3.9 mmol/L (3.5-5.1); Sodium 138 mmol/L (137-145)
[2019-06-26 10:31] LABS: Large Platelets Present; Poikilocytosis (M) Present
[2019-06-26 11:54] LABS: Glucose,Whole Blood 182 mg/dL (75-99)
--- NOTE | 2019-06-26 12:23 | P.PN ---
Subjective Progress Note Date: 06/26/19 Principal diagnosis: This is a 73-year-old woman who was admitted with pancytopenia, sepsis, acute hypoxic respiratory failure, hypokalemia and was currently receiving chemotherapy for chronic lymphoid leukemia and is being closely monitored. Patient is being followed by multiple consultations including oncology surgery, infectious disease, and pulmonary. This morning patient was nauseated with some vomiting noted that was relieved with Zofran. Patient's platelets this morning were 6 and currently receiving a transfusion at this time. Hemoglobin is 7.4 and will continue to monitor closely. Current potassium is 4.1. Patient is lying in bed in no acute distress stating that she feels fatigued and weak and unable to increase her energy and strength. PT/OT is following. Guarded prognosis. 06/12/2019 Patient is sitting up in bed in no acute distress. No increase in nausea or vomiting today. Patient is tolerating full liquids at this time and may advance as tolerated. Patient denies any other issues overnight. Patient denies any chest pain, shortness of breath, or palpitations at this time. Patient remains afebrile. Patient is still having some abdominal discomfort in the lower rib cage area on the sides due to her cough she states. Will continue to monitor closely. Hematology oncology is following closely. Guarded prognosis. 06/13/2019 Patient is sitting up in bed in no acute distress. A friend or family at the bedside visiting. Patient is tolerating diet and denies any nausea or vomiting at this time. Diet has been advanced. Patient denies any chest pain, shortness of breath, or palpitations at this time. Patient did have a low-grade fever today. Infectious disease is following. Patient antibiotics are currently oral Cipro and Flagyl and will continue. Patient is requesting something more for the cough as she continues to have a cough with no phlegm production. Robitussin-AC was ordered. Patient states that Tessalon Perles were not helping. Patient is having some mild side pain at her ribs due to the cough. PT/OT are following. Patient has not had the strength to get up and work with them at this time. Will continue to encourage working with PT/OT. Patient's hemoglobin and platelets have much improved today. Patient's hemoglobin is 7.8 and platelets are 22. Oncology is following closely. Discussed with the patient at length today about rehab as it would not be in her best interest to return home at this time due to the weakness and fatigue. Patient has agreed to a rehab. Case management and social work are working on possible placement. Dr. Da Silva was consulted and awaiting report. Guarded prognosis. 06/17/2019 This is a 73-year-old woman who was admitted with multiple complex medical issue s with severe pancytopenia, leukopenia, and significant thrombocytopenia, CLL on chemotherapy and is being closely monitored. Hematology/oncology Dr. Oliva is following closely and patient is to remain nothing by mouth except educations, ice chips, popsicles. The patient is currently being maintained on TPN. Patient continues to have mild upper abdominal discomfort on the left and right sides the patient states it is due to the cough that she is still experiencing. Patient is very fatigued and lethargic today. Patient's hemoglobin today is 6.5 and her platelet count is 5. Patient is going to be transfused with 1 unit PRBC and 1 unit of platelets. Will continue to monitor labs closely. Patient seems more sad and discouraged today after receiving her lab values and states she just doesn't understand why nothing is improving. Discussed with the patient at length today about these findings and will continue to monitor. Family is at the bedside. Guarded prognosis. 06/18/2019 Patient is sitting up at the chair in no acute distress. Patients platelet count was low today again current platelet count is 9 and currently awaiting transfusion. Hemoglobin is 6.8 and will be transfused as well. Dr. Oliva is following closely. Patient continues to be nothing by mouth at this time except for medications and ice chips. Patient is still having a lot of mid abdominal pain and discomfort due to her cough. Patient is taking Robitussin-AC for the cough. Patient denies any chest pain, shortness of breath, or palpitations at this time. Patient denies any nausea or vomiting and is currently nothing by mouth and on TPN. patient is currently afebrile. Chest x-ray done yesterday sh ows right upper lobe opacities that are stable with new perihilar and left costophrenic angle opacities. Multifocal pneumonia is likely. Infectious disease is following. Patient is currently on IV antibiotics in the form of Aztreonam and Flagyl. Guarded prognosis. 06/19/2019 Patient is sitting up in the chair in no acute distress. Patient did not receive a unit of packed red blood cells yesterday and hemoglobin today is 6.1. There is a unit ready per lab and will be transfused after antibiotics have finished. Platelets today are 9 and will be transfused later today. Patient continues to be nothing by mouth except for medications and ice chips at this time still. Patient states there are no new changes from yesterday and is still having a dry hacking cough with discomfort on the sides of her abdomen near her rib cage. Patient is denying any chest pain or shortness of breath at this time. Patient is afebrile. Patient continues to have a decrease in strength and is going back to bed to rest issue as she will be working with PT/OT this afternoon. Family is at the bedside. Chest x-ray yesterday shows some increase in volume and patient will be given IV Lasix 40 mg daily. Influenza testing will also be done and is currently pending. Guarded prognosis. 06/20/19 Patient is sitting up in no acute distress. Patient was able to work with PT/OT yesterday with minimal to moderated assist and walked a few feet and and tolerated well. Patient platelets were 15 and hemoglobin is 7.4 today requiring no transfusions at this time. Will continue to monitor. Oncology is following closely. Patients diet has advanced and tolerating well. Patient still has a dry cough at times that is causing bilateral rib cage side pain with coughing spells. patient states that the pain has decreased. Influenza yesterday was negative. Guarded prognosis. 06/23/2019 Patient is sitting up in bed with sister at the bedside in no acute distress. Patient has just returned from a bone marrow biopsy with Dr. Oliva and is being closely monitored. Patient hemoglobin is 6.5 with a platelet count of 12 this morning. Patient will be receiving 1 unit of PRBC's this am. Multiple consultants are following at this time. Patient is currently on Flagyl and Aztreonam per infectious diseases recommendations. 06/24/2019 Patient is lying in bed in no acute distress. Patient continues to have increased fatigue and an inability to work with PT/OT due to her weakness. Patient currently still has diarrhea at this time and is being closely monitored. Multiple medical consultants are following. Oncology is following closely. Patient is currently still on TPN and is able to have clear liquids but states she does not have an appetite at this time. Patient continues to have a dry, hacking cough that is causing bilateral side pain. Patient's hemoglobin is 7.2 today with a platelet count of 6 and will receive a transfusion of platelets today. Extremely guarded prognosis. 06/25/2019 Patient is sitting up in the chair in no acute distress. Patient denies any chest pain, shortness of breath, or palpitations at this time. Patient is currently on clear liquids and tolerating but states it's not much of a selection sore eating has been very minimal. Patient is still maintained on TPN at this time. Patient denies any nausea or vomiting at this time but states that when she gets into a coughing spell she starts having dry heaves upon getting out of bed every morning. Patient currently has Robitussin with codeine as well as Tessalon Perles as needed for cough. Patient states that they are effective but when she receives the Robitussin with codeine she is unable to get anything else and the Robitussin only works for a very short time. Patient states that she has been getting up and working with PT/OT but is still quite fatigued on exertion. Patient's hemoglobin was 6.9 this morning and is currently receiving a unit of packed red blood cells. Patient's platelet count is 11 today. Patient's antibiotics have been discontinued per infectious disease at this time. Will continue to monitor closely. Extremely guarded prognosis. 06/26/2019 Patient is sitting up in bed in no acute distress with sister at the bedside. Patient is being followed multiple medical consultants. Patient is currently awaiting bone marrow biopsy report and was hoping it would be today. Oncology is following closely. Patient's platelets this morning were 8 and will be receiving 1 unit. Hemoglobin was 8 today as well. Patient states that she still is having loose stools and diarrhea but currently denies any abdominal discomfort. Patient is on clear liquids and tolerating. Patient denies any chest pain, shortness of breath, or palpitations at this time. Patient is afebrile. Patient denies any nausea or vomiting at this time. Will continue to monitor closely. Objective - Vital Signs Vital signs: Vital Signs Temp 97.3 F L 06/26/19 04:12 Pulse 87 06/26/19 04:12 Resp 17 06/26/19 08:25 BP 139/66 06/26/19 04:12 Pulse Ox 97 06/26/19 04:12 Intake & Output 06/25/19 06/26/19 06/26/19 18:59 06:59 18:59 Intake Total 1048 1094 Balance 1048 1094 Weight 94 kg 92.079 kg Intake: IV 258 284 Fat Emulsion 20% 250 ml @ 158 104 20.833 mls/hr IV MoWeFr [facility] Rx#:[id number] Sodium Chloride 0.9% 500 100 180 ml 500 ml @ 20 mls/hr IV .Q24H [facility] Rx#:[id number] Intake, IV Titration 480 560 Amount Calcium Gluconate 1 gm 480 Magnesium Sulfate gm 1 gm Sodium Chloride 2.5MEQ/ ml Vial 15 meq In Amino Acid 4.25%-D10w+Lytes*E* 1,000 ml @ 70 mls/hr IV . [facility] Rx#: [id number] Mvi, Adult No.4 with Vit 560 K 10 ml Trace (Conc-1Ml/ Dose) 1 ml Calcium Gluconate 1 gm Magnesium Sulfate gm 2 gm Sodium Chloride 2.5MEQ/ml Vial 15 meq In Amino Acid 4.25 %-D10w+Lytes*E* 1,000 ml @ 70 mls/hr IV .BY DURATION [facility] Rx#: [id number] Oral 250 Blood Product 310 Rc Irr As1 Unit 310 [id number] Other: Voiding Method Bedside Commode Bedside Commode Bedside Commode Diaper Diaper Diaper Incontinent Incontinent Incontinent # Voids 1 - Exam Gen: This is a 73-year-old female sitting up in bed in no acute distress. Sister is at the bedside. Vital signs are stable. Temp is 97.3 F, pulse is 87, respirations are 15, blood pressure is 139/66, oxygen saturation is 97% on room air. HEENT: Head is atraumatic, normocephalic. Pupils equal, round. Sclerae is anicteric. Oral mucosa is dry and pale. Left eyelid closed NECK: Supple. No JVD. No lymphadenopathy. No thyromegaly. LUNGS: Diminished breath sounds at the bases otherwise clear upon auscultation. no wheezing noted on exam. No intercostal retractions. HEART: S1 and S2 are muffled. No murmur. ABDOMEN: Soft. Bowel sounds are present. No masses. EXTREMITIES: No pedal edema. No calf tenderness. NEUROLOGICAL: Patient is awake, alert and oriented x3. Cranial nerves 2 through 12 are grossly intact. - Labs CBC & Chem 7: 06/26/19 08:06 06/26/19 08:06 Labs: Abnormal Lab Results - Last 24 Hours (Table) 06/25/19 06/25/19 06/25/19 Range/Units 07:24 17:21 20:01 WBC (3.8-10.6) k/uL RBC (3.80-5.40) m/uL Hgb (11.4-16.0) gm/dL Hct (34.0-46.0) % Plt Count (150-450) k/uL Neutrophils # (1.3-7.7) k/uL Creatinine (0.52-1.04) mg/dL Glucose (74-99) mg/dL POC Glucose (mg/dL) 147 H 149 H (75-99) mg/dL Calcium (8.4-10.2) mg/dL Crossmatch See Detail 06/26/19 06/26/19 06/26/19 Range/Units 00:50 06:20 08:06 WBC (3.8-10.6) k/uL RBC (3.80-5.40) m/uL Hgb (11.4-16.0) gm/dL Hct (34.0-46.0) % Plt Count (150-450) k/uL Neutrophils # (1.3-7.7) k/uL Creatinine 0.33 L (0.52-1.04) mg/dL Glucose 138 H (74-99) mg/dL POC Glucose (mg/dL) 145 H 162 H (75-99) mg/dL Calcium 8.0 L (8.4-10.2) mg/dL Crossmatch 06/26/19 06/26/19 Range/Units 08:06 11:42 WBC 1.8 L (3.8-10.6) k/uL RBC 2.63 L (3.80-5.40) m/uL Hgb 8.0 L (11.4-16.0) gm/dL Hct 22.4 L (34.0-46.0) % Plt Count 8 L* (150-450) k/uL Neutrophils # 0.4 L* (1.3-7.7) k/uL Creatinine (0.52-1.04) mg/dL Glucose (74-99) mg/dL POC Glucose (mg/dL) 182 H (75-99) mg/dL Calcium (8.4-10.2) mg/dL Crossmatch Assessment and Plan Assessment: Severe pancytopenia, neutropenia, and thrombocytopenia secondary to chronic lymphoid leukemia on chemotherapy Severe thrombocytopenia requiring multiple platelet transfusions. Platelets today are 8. Hemoglobin is 8. 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 Multiple medical consultations are following closely. Infectious disease is following closely. Will continue to monitor. Bone marrow biopsy still pending and oncology is checking for preliminary results. Encourage the patient to continue working with PT/OT for strength and mobility. Extremely guarded prognosis. Further recommendations to follow. Case management and social service assistant following closely.
--- NOTE | 2019-06-26 12:23 | P.PN ---
Subjective Progress Note Date: 06/26/19 Principal diagnosis: Pancytopenia secondary to CLL, completed first cycle of chemo/monoclonal antibody therapy In follow-up today patient is stable, she has no new complaints, her cough continues to be improved as long as she is wearing the CPAP, no expectoration, fevers, sore throat, nausea or vomiting, she had one episode of diarrhea yesterday, she denies any bleeding, lower external he swelling or pain. Objective - Vital Signs Vital signs: Vital Signs Temp 98.6 F 06/26/19 12:13 Pulse 81 06/26/19 12:13 Resp 20 06/26/19 12:13 BP 122/71 06/26/19 12:13 Pulse Ox 98 06/26/19 12:13 Intake & Output 06/25/19 06/26/19 06/26/19 18:59 06:59 18:59 Intake Total 1048 1094 Balance 1048 1094 Weight 94 kg 92.079 kg Intake: IV 258 284 Fat Emulsion 20% 250 ml @ 158 104 20.833 mls/hr IV MoWeFr [facility] Rx#:[id number] Sodium Chloride 0.9% 500 100 180 ml 500 ml @ 20 mls/hr IV .Q24H [facility] Rx#:[id number] Intake, IV Titration 480 560 Amount Calcium Gluconate 1 gm 480 Magnesium Sulfate gm 1 gm Sodium Chloride 2.5MEQ/ ml Vial 15 meq In Amino Acid 4.25%-D10w+Lytes*E* 1,000 ml @ 70 mls/hr IV . BY [facility] Rx#: [id number] Mvi, Adult No.4 with Vit 560 K 10 ml Trace (Conc-1Ml/ Dose) 1 ml Calcium Gluconate 1 gm Magnesium Sulfate gm 2 gm Sodium Chloride 2.5MEQ/ml Vial 15 meq In Amino Acid 4.25 %-D10w+Lytes*E* 1,000 ml @ 70 mls/hr IV .BY [facility] Rx#: [id number] Oral 250 Blood Product 310 Rc Irr As1 Unit 310 [id number] Other: Voiding Method Bedside Commode Bedside Commode Bedside Commode Diaper Diaper Diaper Incontinent Incontinent Incontinent # Voids 1 - Constitutional General appearance: Present: cooperative, no acute distress, obese - EENT Eyes: Present: anicteric sclerae, EOMI, ptosis ENT: Present: hearing grossly normal, normal oropharynx - Respiratory Respiratory: bilateral: CTA - Cardiovascular Rhythm: regular Heart sounds: normal: S1, S2 Abnormal Heart Sounds: Absent: systolic murmur, diastolic murmur, rub, S3 Gallop, S4 Gallop, click, other - Peripheral edema foot Peripheral Edema: bilateral: None - Gastrointestinal General gastrointestinal: Present: normal bowel sounds, soft, tenderness. Absent: absent bowel sounds, decreased bowel sounds, distended, hepatomegaly, hyperactive bowel sounds, organomegaly, rigid, scaphoid, splenomegaly, umbilical hernia, ventral hernia - Musculoskeletal Musculoskeletal: Present: generalized weakness - Psychiatric Psychiatric: Present: A&O x's 3, appropriate affect, intact judgment & insight - Labs CBC & Chem 7: 06/26/19 08:06 06/26/19 08:06 Labs: Abnormal Lab Results - Last 24 Hours (Table) 06/25/19 06/25/19 06/25/19 Range/Units 07:24 17:21 20:01 WBC (3.8-10.6) k/uL RBC (3.80-5.40) m/uL Hgb (11.4-16.0) gm/dL Hct (34.0-46.0) % Plt Count (150-450) k/uL Neutrophils # (1.3-7.7) k/uL Creatinine (0.52-1.04) mg/dL Glucose (74-99) mg/dL POC Glucose (mg/dL) 147 H 149 H (75-99) mg/dL Calcium (8.4-10.2) mg/dL Crossmatch See Detail 06/26/19 06/26/19 06/26/19 Range/Units 00:50 06:20 08:06 WBC (3.8-10.6) k/uL RBC (3.80-5.40) m/uL Hgb (11.4-16.0) gm/dL Hct (34.0-46.0) % Plt Count (150-450) k/uL Neutrophils # (1.3-7.7) k/uL Creatinine 0.33 L (0.52-1.04) mg/dL Glucose 138 H (74-99) mg/dL POC Glucose (mg/dL) 145 H 162 H (75-99) mg/dL Calcium 8.0 L (8.4-10.2) mg/dL Crossmatch 06/26/19 06/26/19 Range/Units 08:06 11:42 WBC 1.8 L (3.8-10.6) k/uL RBC 2.63 L (3.80-5.40) m/uL Hgb 8.0 L (11.4-16.0) gm/dL Hct 22.4 L (34.0-46.0) % Plt Count 8 L* (150-450) k/uL Neutrophils # 0.4 L* (1.3-7.7) k/uL Creatinine (0.52-1.04) mg/dL Glucose (74-99) mg/dL POC Glucose (mg/dL) 182 H (75-99) mg/dL Calcium (8.4-10.2) mg/dL Crossmatch Assessment and Plan (1) Abdominal pain Narrative/Plan: Persistent, not progressive, Multifactorial, including a degree of neutropenic colitis, persistent diarrhea. We are attempting to correct the underlying causes. Patient is being supported with TPN, clear liquids only Current Visit: Yes Status: Acute Priority: High Code(s): R10.9 - UNSPEC IFIED ABDOMINAL PAIN SNOMED Code(s): 33782932 (2) Pancytopenia Narrative/Plan: Secondary to disease. Bone marrow biopsy performed, pending results. No PRBCs today. Hemoglobin is 8 today, which is an appropriate increase as patient received transfusion with 1 unit for hemoglobin of 6.9. Plt 8,000 today, transfusion ordered Irradiated blood products. Crossmatched platelets. Continue on growth factor support. Current Visit: Yes Status: Acute Priority: High Code(s): D61.818 - OTHER PANCYTOPENIA SNOMED Code(s): 410940268 (3) Moderate protein-calorie malnutrition Narrative/Plan: Continue TPN. Patient on clear liquids, tolerating well Current Visit: Yes Status: Acute Priority: High Code(s): E44.0 - MODERATE PROTEIN-CALORIE MALNUTRITION SNOMED Code(s): 511947307 (4) Physical debility Narrative/Plan: The patient and her family she is participating more with physical therapy, she has been getting out of bed several times a day and ambulating in the room. Continue aggressive physical therapy. Continue to encourage patient Current Visit: Yes Status: Acute Priority: High Code(s): R53.81 - OTHER MALAISE SNOMED Code(s): 90715353 (5) Hypogammaglobulinemia Current Visit: Yes Status: Acute Priority: High Code(s): D80.1 - NONFAMILIAL HYPOGAMMAGLOBULINEMIA SNOMED Code(s): 514754374 (6) CLL (chronic lymphocytic leukemia) Narrative/Plan: Rituximab and bendeka 1 cycle complete. Pt previously received 3 cycles of Rituxan only. Her lymphocyte count improved dramatically but, marrow is not showing signs of recovery, she is still transfusion dependent. Patient is status post bone marrow biopsy and aspirate, anxiously awaiting results. Attempted to get preliminary results but, not available. We'll check again later today and tomorrow morning. Current Visit: Yes Status: Chronic Priority: High Code(s): C91.90 - LYMPHOID LEUKEMIA, UNSPECIFIED NOT HAVING ACHIEVED REMISSION SNOMED Code(s): 28539249 (7) Bacteremia due to Pseudomonas Current Visit: Yes Status: Resolved Priority: High Code(s): R78.81 - BACTEREMIA SNOMED Code(s): 743222731238 Plan: Icepack to right hand, from phlebotomy-bruising and pain improved. Pt being followed by IM, Surg, Onc, ID. She is aware of her high risk situation.
[2019-06-26] MEDS: FILGRASTIM-SNDZ 480 MCG/0.8 ML SYRINGE SQ SCH (12:27)
[2019-06-26 17:35] LABS: Glucose,Whole Blood 150 mg/dL (75-99)
[2019-06-26] MEDS: traMADol 50 MG TAB PO PRN (17:50)
--- NOTE | 2019-06-26 19:50 | PN ---
PROGRESS NOTE DATE OF SERVICE: 06/26/2019 REASON FOR FOLLOWUP: Diverticulitis and pseudomonas bacteremia. INTERVAL HISTORY: The patient is currently afebrile. She has been breathing comfortably. She did have some dry irritating cough, but no worsening. No nausea, no vomiting. Denies any abdominal pain or any worsening diarrhea. PHYSICAL EXAMINATION: Blood pressure 122/71 with a pulse of 81, temperature 98.6. She is 98% on BiPAP. General description is an elderly female lying in bed in no distress. RESPIRATORY SYSTEM: Unlabored breathing. Clear to auscultation anteriorly. HEART: S1, S2. Regular rate and rhythm. ABDOMEN: Soft. No tenderness. LABS: Hemoglobin 8 with a white count of 1.8. BUN of 17, creatinine 0.33. DIAGNOSTIC IMPRESSION AND PLAN: Patient with pseudomonas bacteremia and diverticulitis that has been adequately treated. Patient currently off antibiotic therapy for more than 48 hours. We will keep the patient off antibiotic at this point. Monitor clinical course closely because of underlying immunosuppression, as the patient is still leukopenic. Continue with supportive care. MMODL / IJN: [id number] /
[2019-06-26] MEDS: ATORVASTATIN 40 MG TAB PO SCH (20:38)
[2019-06-26] MEDS: SENNOSIDES-DOCUSATE SODIUM 1 EACH TAB PO PRN (20:38)
[2019-06-27 00:03] LABS: Glucose,Whole Blood 152 mg/dL (75-99)
[2019-06-27] MEDS: SODIUM CHLORIDE 0.9% 500 ML 500 ML IV SCH (00:12)
[2019-06-27] MEDS: INSULIN ASPART (NovoLOG) 100 UNIT/ML VIAL SQ SCH ×5 (00:12→23:45)
[2019-06-27 06:17] LABS: Glucose,Whole Blood 158 mg/dL (75-99)
[2019-06-27] MEDS: 1: MVI, ADULT NO.4 WITH VIT K 10 ML, TRACE (CONC-1ML/DOSE) 1 ML, CALCIUM GLUCONATE 1 GM, IV SCH ×12 (06:17→21:57)
[2019-06-27] MEDS: PANTOPRAZOLE 40 MG TABLET PO SCH ×2 (09:25→17:37)
[2019-06-27] MEDS: FILGRASTIM-SNDZ 480 MCG/0.8 ML SYRINGE SQ SCH (09:26)
[2019-06-27] MEDS: ALLOPURINOL 300 MG TAB PO SCH (09:26)
[2019-06-27] MEDS: FUROSEMIDE 10 MG/ML 4 ML VIAL IV SCH (09:26)
[2019-06-27] MEDS: amLODIPine 5 MG TAB PO SCH ×2 (09:26→20:44)
[2019-06-27] MEDS: FAT EMULSION 20% 250 ML IV SCH (09:33)
[2019-06-27 09:36] LABS: Basophils % (A) 1 %; Eosinophils % (A) 1 %; HGB 7.1 gm/dL (11.4-16.0); Lymphocytes # (A) 0.9 k/uL (1.0-4.8); Lymphocytes % (A) 69 %; MCH 30.3 pg (25.0-35.0); MCHC 35.6 g/dL (31.0-37.0); MCV 85.1 fL (80.0-100.0); Mean Platelet Volume 8.6; Monocytes % (A) 3 %; Neutrophils % (A) 23 %; RBC 2.32 m/uL (3.80-5.40); RDW 12.8 % (11.5-15.5)
[2019-06-27 09:38] LABS: WBC 1.4 k/uL (3.8-10.6)
[2019-06-27 09:39] LABS: HCT 19.8 % (34.0-46.0); Ionized Calcium 4.5 mg/dL (4.5-5.3); Neutrophils # (A) 0.3 k/uL (1.3-7.7); Platelet Count 7 k/uL (150-450)
[2019-06-27 09:43] LABS: African American GFR (CKD) >90 (>60 ml/min/1.73 sqM); Albumin 2.9 g/dL (3.5-5.0); Phosphorus 4.1 mg/dL (2.5-4.5); Triglycerides 128 mg/dL (<150)
--- NOTE | 2019-06-27 10:41 | XR ---
EXAMINATION TYPE: XR chest 1V portable DATE OF EXAM: 06/27/2019 COMPARISON: 06/17/2019 HISTORY: Cough TECHNIQUE: Single frontal view of the chest is obtained. FINDINGS: Multifocal opacities remain throughout the right lung within the right upper lung, left mi dlung and left lung base as well as the right perihilar region. Left-sided Mediport is in place with cannulation of a single Heubner needle. Cardia mediastinal silhouette is stable. Mild generalized oss eous demineralization. No acute osseous pathology. Right breast surgical clips are partially visualiz ed. IMPRESSION: Multifocal opacities suspicious for multifocal pneumonia. Follow-up to resolution is aga in recommended.
[2019-06-27 11:18] LABS: Glucose,Whole Blood 155 mg/dL (75-99)
[2019-06-27] MEDS: guaiFENesin SYRUP 100MG/5ML 200 MG/10 ML CUP PO PRN (15:41)
--- NOTE | 2019-06-27 15:53 | P.PN ---
Subjective Progress Note Date: 06/27/19 Principal diagnosis: This is a 73-year-old woman who was admitted with pancytopenia, sepsis, acute hypoxic respiratory failure, hypokalemia and was currently receiving chemotherapy for chronic lymphoid leukemia and is being closely monitored. Patient is being followed by multiple consultations including oncology surgery, infectious disease, and pulmonary. This morning patient was nauseated with some vomiting noted that was relieved with Zofran. Patient's platelets this morning were 6 and currently receiving a transfusion at this time. Hemoglobin is 7.4 and will continue to monitor closely. Current potassium is 4.1. Patient is lying in bed in no acute distress stating that she feels fatigued and weak and unable to increase her energy and strength. PT/OT is following. Guarded prognosis. 06/12/2019 Patient is sitting up in bed in no acute distress. No increase in nausea or vomiting today. Patient is tolerating full liquids at this time and may advance as tolerated. Patient denies any other issues overnight. Patient denies any chest pain, shortness of breath, or palpitations at this time. Patient remains afebrile. Patient is still having some abdominal discomfort in the lower rib cage area on the sides due to her cough she states. Will continue to monitor closely. Hematology oncology is following closely. Guarded prognosis. 06/13/2019 Patient is sitting up in bed in no acute distress. A friend or family at the bedside visiting. Patient is tolerating diet and denies any nausea or vomiting at this time. Diet has been advanced. Patient denies any chest pain, shortness of breath, or palpitations at this time. Patient did have a low-grade fever today. Infectious disease is following. Patient antibiotics are currently oral Cipro and Flagyl and will continue. Patient is requesting something more for the cough as she continues to have a cough with no phlegm production. Robitussin-AC was ordered. Patient states that Tessalon Perles were not helping. Patient is having some mild side pain at her ribs due to the cough. PT/OT are following. Patient has not had the strength to get up and work with them at this time. Will continue to encourage working with PT/OT. Patient's hemoglobin and platelets have much improved today. Patient's hemoglobin is 7.8 and platelets are 22. Oncology is following closely. Discussed with the patient at length today about rehab as it would not be in her best interest to return home at this time due to the weakness and fatigue. Patient has agreed to a rehab. Case management and social work are working on possible placement. Dr. Da Silva was consulted and awaiting report. Guarded prognosis. 06/17/2019 This is a 73-year-old woman who was admitted with multiple complex medical issue s with severe pancytopenia, leukopenia, and significant thrombocytopenia, CLL on chemotherapy and is being closely monitored. Hematology/oncology Dr. Oliva is following closely and patient is to remain nothing by mouth except educations, ice chips, popsicles. The patient is currently being maintained on TPN. Patient continues to have mild upper abdominal discomfort on the left and right sides the patient states it is due to the cough that she is still experiencing. Patient is very fatigued and lethargic today. Patient's hemoglobin today is 6.5 and her platelet count is 5. Patient is going to be transfused with 1 unit PRBC and 1 unit of platelets. Will continue to monitor labs closely. Patient seems more sad and discouraged today after receiving her lab values and states she just doesn't understand why nothing is improving. Discussed with the patient at length today about these findings and will continue to monitor. Family is at the bedside. Guarded prognosis. 06/18/2019 Patient is sitting up at the chair in no acute distress. Patients platelet count was low today again current platelet count is 9 and currently awaiting transfusion. Hemoglobin is 6.8 and will be transfused as well. Dr. Oliva is following closely. Patient continues to be nothing by mouth at this time except for medications and ice chips. Patient is still having a lot of mid abdominal pain and discomfort due to her cough. Patient is taking Robitussin-AC for the cough. Patient denies any chest pain, shortness of breath, or palpitations at this time. Patient denies any nausea or vomiting and is currently nothing by mouth and on TPN. patient is currently afebrile. Chest x-ray done yesterday sh ows right upper lobe opacities that are stable with new perihilar and left costophrenic angle opacities. Multifocal pneumonia is likely. Infectious disease is following. Patient is currently on IV antibiotics in the form of Aztreonam and Flagyl. Guarded prognosis. 06/19/2019 Patient is sitting up in the chair in no acute distress. Patient did not receive a unit of packed red blood cells yesterday and hemoglobin today is 6.1. There is a unit ready per lab and will be transfused after antibiotics have finished. Platelets today are 9 and will be transfused later today. Patient continues to be nothing by mouth except for medications and ice chips at this time still. Patient states there are no new changes from yesterday and is still having a dry hacking cough with discomfort on the sides of her abdomen near her rib cage. Patient is denying any chest pain or shortness of breath at this time. Patient is afebrile. Patient continues to have a decrease in strength and is going back to bed to rest issue as she will be working with PT/OT this afternoon. Family is at the bedside. Chest x-ray yesterday shows some increase in volume and patient will be given IV Lasix 40 mg daily. Influenza testing will also be done and is currently pending. Guarded prognosis. 06/20/19 Patient is sitting up in no acute distress. Patient was able to work with PT/OT yesterday with minimal to moderated assist and walked a few feet and and tolerated well. Patient platelets were 15 and hemoglobin is 7.4 today requiring no transfusions at this time. Will continue to monitor. Oncology is following closely. Patients diet has advanced and tolerating well. Patient still has a dry cough at times that is causing bilateral rib cage side pain with coughing spells. patient states that the pain has decreased. Influenza yesterday was negative. Guarded prognosis. 06/23/2019 Patient is sitting up in bed with sister at the bedside in no acute distress. Patient has just returned from a bone marrow biopsy with Dr. Oliva and is being closely monitored. Patient hemoglobin is 6.5 with a platelet count of 12 this morning. Patient will be receiving 1 unit of PRBC's this am. Multiple consultants are following at this time. Patient is currently on Flagyl and Aztreonam per infectious diseases recommendations. 06/24/2019 Patient is lying in bed in no acute distress. Patient continues to have increased fatigue and an inability to work with PT/OT due to her weakness. Patient currently still has diarrhea at this time and is being closely monitored. Multiple medical consultants are following. Oncology is following closely. Patient is currently still on TPN and is able to have clear liquids but states she does not have an appetite at this time. Patient continues to have a dry, hacking cough that is causing bilateral side pain. Patient's hemoglobin is 7.2 today with a platelet count of 6 and will receive a transfusion of platelets today. Extremely guarded prognosis. 06/25/2019 Patient is sitting up in the chair in no acute distress. Patient denies any chest pain, shortness of breath, or palpitations at this time. Patient is currently on clear liquids and tolerating but states it's not much of a selection sore eating has been very minimal. Patient is still maintained on TPN at this time. Patient denies any nausea or vomiting at this time but states that when she gets into a coughing spell she starts having dry heaves upon getting out of bed every morning. Patient currently has Robitussin with codeine as well as Tessalon Perles as needed for cough. Patient states that they are effective but when she receives the Robitussin with codeine she is unable to get anything else and the Robitussin only works for a very short time. Patient states that she has been getting up and working with PT/OT but is still quite fatigued on exertion. Patient's hemoglobin was 6.9 this morning and is currently receiving a unit of packed red blood cells. Patient's platelet count is 11 today. Patient's antibiotics have been discontinued per infectious disease at this time. Will continue to monitor closely. Extremely guarded prognosis. 06/26/2019 Patient is sitting up in bed in no acute distress with sister at the bedside. Patient is being followed multiple medical consultants. Patient is currently awaiting bone marrow biopsy report and was hoping it would be today. Oncology is following closely. Patient's platelets this morning were 8 and will be receiving 1 unit. Hemoglobin was 8 today as well. Patient states that she still is having loose stools and diarrhea but currently denies any abdominal discomfort. Patient is on clear liquids and tolerating. Patient denies any chest pain, shortness of breath, or palpitations at this time. Patient is afebrile. Patient denies any nausea or vomiting at this time. Will continue to monitor closely. 06/27/2019 Patient is sitting up in the chair in no acute distress. Patient continues to have a cough that is dry and hacking. Repeat chest x-ray this morning shows multifocal opacities throughout. Patient denies any shortness of breath, chest pain, or palpitations. Patient is afebrile. Denies any nausea or vomiting. Patient states that the cough has not gotten any worse and has slightly improved actually. Patient also states that when she has the CPAP on she has almost no coughing. Infectious disease is following. Patient's hemoglobin today was 7.1 and platelets were 7. Patient is receiving 1 unit of platelets at this time. Guarded prognosis. Objective - Vital Signs Vital signs: Vital Signs Temp 98.6 F 06/27/19 14:34 Pulse 83 06/27/19 14:34 Resp 18 06/27/19 14:34 BP 125/74 06/27/19 14:34 Pulse Ox 98 06/27/19 14:34 Intake & Output 06/26/19 06/27/19 06/27/19 18:59 06:59 18:59 Intake Total 2884 720 1040 Balance 2884 720 1040 Weight 94.5 kg 94.5 kg Intake: IV 160 Sodium Chloride 0.9% 500 160 ml 500 ml @ 20 mls/hr IV .Q24H [facility] Rx#:[id number] Intake, IV Titration 1711 560 Amount Calcium Gluconate 1 gm 560 Magnesium Sulfate gm 1 gm Sodium Chloride 2.5MEQ/ ml Vial 15 meq In Amino Acid 4.25%-D10w+Lytes*E* 1,000 ml @ 70 mls/hr IV . BY DURATION [facility] Rx#: [id number] Mvi, Adult No.4 with Vit 1711 K 10 ml Trace (Conc-1Ml/ Dose) 1 ml Calcium Gluconate 1 gm Magnesium Sulfate gm 2 gm Sodium Chloride 2.5MEQ/ml Vial 15 meq In Amino Acid 4.25 %-D10w+Lytes*E* 1,000 ml @ 70 mls/hr IV .BY DURATION [facility] Rx#: [id number] Oral 850 720 Blood Product 323 320 Platelet Irr Pheresis 2 320 Acda Unit [id number] Platelet Irr Pheresis 323 Acda1 Unit [id number] Other: Voiding Method Bedside Commode Bedside Commode Bedside Commode Diaper Diaper Diaper Incontinent Incontinent Incontinent # Voids 4 2 2 # Bowel Movements 1 1 - Exam Gen: This is a 73-year-old female sitting up in the chair in no acute distress. Vital signs are stable. Temp is 97.2 F, pulse is 85, respirations are 18, blood pressure is 148/70, oxygen saturation is 98 % on the CPAP. HEENT: Head is atraumatic, normocephalic. Pupils equal, round. Sclerae is anicteric. Oral mucosa is dry and pale. Left eyelid closed NECK: Supple. No JVD. No lymphadenopathy. No thyromegaly. LUNGS: Diminished breath sounds at the bases otherwise clear upon auscultation. no wheezing noted on exam. No intercostal retractions. HEART: S1 and S2 are muffled. No murmur. ABDOMEN: Soft. Bowel sounds are present. No masses. EXTREMITIES: No pedal edema. No calf tenderness. NEUROLOGICAL: Patient is awake, alert and oriented x3. Cranial nerves 2 through 12 are grossly intact. - Labs CBC & Chem 7: 06/27/19 09:06/27/19 09:01 Labs: Abnormal Lab Results - Last 24 Hours (Table) 06/26/19 06/27/19 06/27/19 Range/Units 17:23 00:01 06:16 WBC (3.8-10.6) k/uL RBC (3.80-5.40) m/uL Hgb (11.4-16.0) gm/dL Hct (34.0-46.0) % Plt Count (150-450) k/uL Neutrophils # (1.3-7.7) k/uL Lymphocytes # (1.0-4.8) k/uL Creatinine (0.52-1.04) mg/dL POC Glucose (mg/dL) 150 H 152 H 158 H (75-99) mg/dL Albumin (3.5-5.0) g/dL 06/27/19 06/27/19 06/27/19 Range/Units 09:01 09:01 11:05 WBC 1.4 L* (3.8-10.6) k/uL RBC 2.32 L (3.80-5.40) m/uL Hgb 7.1 L (11.4-16.0) gm/dL Hct 19.8 L* (34.0-46.0) % Plt Count 7 L* (150-450) k/uL Neutrophils # 0.3 L* (1.3-7.7) k/uL Lymphocytes # 0.9 L (1.0-4.8) k/uL Creatinine 0.34 L (0.52-1.04) mg/dL POC Glucose (mg/dL) 155 H (75-99) mg/dL Albumin 2.9 L (3.5-5.0) g/dL Assessment and Plan Assessment: Severe pancytopenia, neutropenia, and thrombocytopenia secondary to chronic lymphoid leukemia on chemotherapy Severe thrombocytopenia requiring multiple platelet transfusions. Platelets today are 7. Hemoglobin is 7.1. 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 Multiple medical consultations are following closely. Infectious disease is following closely. Chest x-ray today shows multifocal opacities throughout. Discussed with the patient about the importance of the incentive spirometer and instructed nursing staff to continue to encourage incentive spirometer use at least 10 times an hour while awake. Chest physiotherapy was ordered per infectious disease recommendations. Will continue to monitor. Bone marrow biopsy still pending and oncology is checking for preliminary results. Encouraged the patient to continue working with PT/OT for strength and mobility. Extremely guarded prognosis. Further recommendations to follow.
--- NOTE | 2019-06-27 16:02 | PN ---
PROGRESS NOTE DATE OF SERVICE: 06/27/2019 REASON FOR FOLLOWUP: Pseudomonas bacteremia and diverticulitis. INTERVAL HISTORY: The patient is currently afebrile. The patient has been breathing comfortably. The patient's cough has improved and has been mostly dry in nature. No nausea, no vomiting, no abdominal pain. Did have one episode of diarrhea around 3 in the morning; subsequently did have a soft to normal bowel movement, per her. PHYSICAL EXAMINATION: Blood pressure 125/74 with a pulse of 83, temperature 98.6. She is 98% on BiPAP. General description is an elderly female lying in bed in no distress. RESPIRATORY SYSTEM: Unlabored breathing. Clear to auscultation anteriorly. HEART: S1, S2. Regular rate and rhythm. ABDOMEN: Soft. No tenderness. LABS: Hemoglobin 7.9, white count 1.4, creatinine 0.34. DIAGNOSTIC IMPRESSION AND PLAN: 1. Patient with pseudomonas bacteremia and diverticulitis that has been adequately treated. Patient is currently off antibiotic therapy for more than 4 days and seems to have done well. Hence no need for antibiotic therapy. 2. Patient with abnormal x-ray with suggestion of multifocal pneumonia. Patient clinically is not behaving as pneumonia in this patient who did not have any productive cough, fever, and her cough seems to be improving without getting antibiotic. Patient encouraged to use incentive spirometry and medication is ordered. MMODL / IJN: [id number] /
[2019-06-27 17:18] LABS: Glucose,Whole Blood 147 mg/dL (75-99)
[2019-06-27] MEDS: BENZONATATE 100 MG CAP PO PRN (17:36)
[2019-06-27] MEDS: ONDANSETRON 4 MG/2 ML VIAL IVP PRN (19:07)
[2019-06-27] MEDS: ATORVASTATIN 40 MG TAB PO SCH (20:44)
[2019-06-27] MEDS: traMADol 50 MG TAB PO PRN (20:44)
--- NOTE | 2019-06-27 22:51 | P.PN ---
Subjective Progress Note Date: 06/27/19 The patient denies any new complaints today. He continues to have significant generalized weakness. She is tolerating clear liquids without any new issues. Abdominal discomfort as well as diarrhea are mildly improved. She continues to have a dry cough, improved with BiPAP. No fevers or chills. No obvious bleeding. Objective - Vital Signs Vital signs: Vital Signs Temp 98.3 F 06/27/19 21:00 Pulse 92 06/27/19 21:00 Resp 18 06/27/19 21:00 BP 151/67 06/27/19 21:00 Pulse Ox 95 06/27/19 21:00 Intake & Output 06/27/19 06/27/19 06/28/19 06:59 18:59 06:59 Intake Total 1738 1040 Balance 1738 1040 Weight 94.5 kg 94.5 kg Intake: IV 160 Sodium Chloride 0.9% 500 160 ml 500 ml @ 20 mls/hr IV .Q24H [facility] Rx#:[id number] Intake, IV Titration 1578 Amount Calcium Gluconate 1 gm 1578 Magnesium Sulfate gm 1 gm Sodium Chloride 2.5MEQ/ ml Vial 15 meq In Amino Acid 4.25%-D10w+Lytes*E* 1,000 ml @ 70 mls/hr IV . BY DURATION [facility] Rx#: [id number] Oral 720 Blood Product 320 Platelet Irr Pheresis 2 320 Acda Unit [id number] Other: Voiding Method Bedside Commode Bedside Commode Diaper Diaper Incontinent Incontinent # Voids 2 2 1 # Bowel Movements 1 1 - Constitutional General appearance: Present: no acute distress - EENT Eyes: Present: EOMI ENT: Present: hearing grossly normal, normal oropharynx - Respiratory Respiratory: bilateral: diminished - Cardiovascular Rhythm: regular Heart sounds: normal: S1, S2 - Gastrointestinal General gastrointestinal: Present: normal bowel sounds, soft Localized gastrointestinal: tender: epigastric periumbilical - Neurologic Neurologic: Present: CNII-XII intact - Musculoskeletal Musculoskeletal: Present: generalized weakness, strength equal bilaterally - Psychiatric Psychiatric: Present: A&O x's 3, appropriate affect, intact judgment & insight - Labs CBC & Chem 7: 06/27/19 09:01 06/27/19 09:01 Labs: Abnormal Lab Results - Last 24 Hours (Table) 06/27/19 06/27/19 06/27/19 Range/Units 00:01 06:16 09:01 WBC 1.4 L* (3.8-10.6) k/uL RBC 2.32 L (3.80-5.40) m/uL Hgb 7.1 L (11.4-16.0) gm/dL Hct 19.8 L* (34.0-46.0) % Plt Count 7 L* (150-450) k/uL Neutrophils # 0.3 L* (1.3-7.7) k/uL Lymphocytes # 0.9 L (1.0-4.8) k/uL Creatinine (0.52-1.04) mg/dL POC Glucose (mg/dL) 152 H 158 H (75-99) mg/dL Albumin (3.5-5.0) g/dL 06/27/19 06/27/19 06/27/19 Range/Units 09:01 11:05 17:17 WBC (3.8-10.6) k/uL RBC (3.80-5.40) m/uL Hgb (11.4-16.0) gm/dL Hct (34.0-46.0) % Plt Count (150-450) k/uL Neutrophils # (1.3-7.7) k/uL Lymphocytes # (1.0-4.8) k/uL Creatinine 0.34 L (0.52-1.04) mg/dL POC Glucose (mg/dL) 155 H 147 H (75-99) mg/dL Albumin 2.9 L (3.5-5.0) g/dL Assessment and Plan (1) Diverticulitis Narrative/Plan: Patient is on clear liquids with good tolerance. She has had no worsening of abdominal symptoms and actually has had some improvement. She continues on antibiotics. Current Visit: Yes Status: Acute Code(s): K57.92 - DVTRCLI OF INTEST, PART UNSP, W/O PERF OR ABSCESS W/O BLEED SNOMED Code(s): 317464834 (2) Abnormal CT scan, kidney Current Visit: Yes Status: Acute Code(s): R93.429 - ABNORMAL RADIOLOGIC FINDINGS ON DX IMAGING OF UNSP KIDNEY SNOMED Code(s): 683259340 (3) Pancytopenia Narrative/Plan: This continues to be persistent without much change. Hemoglobin of 7.1 today. Platelets were 7 today. She will receive an additional unit of platelets. Continue to monitor. Current Visit: Yes Status: Acute Priority: High Code(s): D61.818 - OTHER PANCYTOPENIA SNOMED Code(s): 456150072 (4) CLL (chronic lymphocytic leukemia) Narrative/Plan: The patient is status post 3 weeks after bendamustine and Rituxan. Bone marrow was repeated as we had not seen any improvement and pancytopenia after 2 weeks. [facility] [place] 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 She was advised that transformed diffuse large B-cell lymphoma, while still fairly responsive to chemotherapy, overall has a worse response than de camilo occurrences. In her situation the course appears to be fairly aggressive, off the underlying CLL, as well as of the transformation as this has occurred within a period of few weeks. In addition the patient has received bendamustine and Rituxan which is an active regimen against large B-cell lymphoma also. Despite that she continues to have significant involvement of the bone marrow both with CLL, as well as large cell lymphoma. This overall indicates very guarded prognosis. To treat the new pathology, the patient will need to go back on chemotherapy, with a more aggressive regimen such as R CHOP, or R EPO CH. At this time double hit/triple hit testing is not available. Given the aggressive presentation, the latter regimen would be preferred. However, with either regimen, the patient would have a very high risk of severe side effects, given her poor performance status, prolonged ability and pancytopenia, as well as ongoing diverticulitis. Oral Ibrutinib can be an option, but rapid response may not occur. While this can be better tolerated than combination chemotherapy, the patient would still be at increased risk given her low platelets, as well as known right renal hemorrhage. She was therefore advised that while treatment can be considered given responsiveness of her new pathology to the same, in her situation, the risks would be markedly higher. Therefore if she desired active treatment, she would have to be accepting of those. The option of comfort care was also discussed. The patient stated that she will meet with her sister later this evening and discuss the above. She'll then make a decision regarding active treatment. Current Visit: Yes Status: Chronic Priority: High Code(s): C91.90 - LYMPHOID LEUKEMIA, UNSPECIFIED NOT HAVING ACHIEVED REMISSION SNOMED Code(s): 79586802 (5) Physical debility Current Visit: Yes Status: Acute Priority: High Code(s): R53.81 - OTHER MALAISE SNOMED Code(s): 53393977
[2019-06-27 23:45] LABS: Glucose,Whole Blood 145 mg/dL (75-99)
[2019-06-28] MEDS: SODIUM CHLORIDE 0.9% 500 ML 500 ML IV SCH (05:11)
[2019-06-28 06:24] LABS: Glucose,Whole Blood 151 mg/dL (75-99)
[2019-06-28] MEDS: INSULIN ASPART (NovoLOG) 100 UNIT/ML VIAL SQ SCH ×3 (06:25→17:27)
[2019-06-28 07:38] LABS: African American GFR (CKD) >90 (>60 ml/min/1.73 sqM); Magnesium 1.9 mg/dL (1.6-2.3)
[2019-06-28 08:03] LABS: Basophils % (A) 0 %; Eosinophils % (A) 1 %; HCT 20.8 % (34.0-46.0); HGB 7.6 gm/dL (11.4-16.0); Lymphocytes % (A) 66 %; MCH 31.1 pg (25.0-35.0); MCHC 36.7 g/dL (31.0-37.0); MCV 84.6 fL (80.0-100.0); Mean Platelet Volume 7.5; Monocytes # (A) 0.1 k/uL (0-1.0); Monocytes % (A) 4 %; Neutrophils % (A) 25 %; RBC 2.46 m/uL (3.80-5.40); RDW 12.7 % (11.5-15.5); WBC 1.6 k/uL (3.8-10.6)
[2019-06-28 08:12] LABS: Neutrophils # (A) 0.4 k/uL (1.3-7.7); Platelet Count 8 k/uL (150-450)
[2019-06-28] MEDS: PANTOPRAZOLE 40 MG TABLET PO SCH ×2 (09:02→17:26)
[2019-06-28] MEDS: FUROSEMIDE 10 MG/ML 4 ML VIAL IV SCH (09:02)
[2019-06-28] MEDS: ALLOPURINOL 300 MG TAB PO SCH (09:02)
[2019-06-28] MEDS: FILGRASTIM-SNDZ 480 MCG/0.8 ML SYRINGE SQ SCH (09:02)
[2019-06-28] MEDS: amLODIPine 5 MG TAB PO SCH ×2 (09:02→20:58)
[2019-06-28] MEDS: SENNOSIDES-DOCUSATE SODIUM 1 EACH TAB PO PRN (09:13)
[2019-06-28 10:17] LABS: Poikilocytosis (M) Present
[2019-06-28] MEDS: ONDANSETRON 4 MG/2 ML VIAL IVP PRN (10:53)
[2019-06-28 11:16] LABS: Glucose,Whole Blood 170 mg/dL (75-99)
--- NOTE | 2019-06-28 12:13 | P.PN ---
Subjective Progress Note Date: 06/28/19 The patient denied any new complaints today. No fever/chills/vomiting/obvious bleeding. Generalized weakness persists. She was sitting up in a chair at the time of evaluation today. Objective - Vital Signs Vital signs: Vital Signs Temp 98 F 06/28/19 07:17 Pulse 87 06/28/19 07:17 Resp 16 06/28/19 07:17 BP 140/65 06/28/19 07:17 Pulse Ox 97 06/28/19 07:17 Intake & Output 06/27/19 06/28/19 06/28/19 18:59 06:59 18:59 Intake Total 1040 163 Balance 1040 163 Weight 94.5 kg 93 kg Intake: IV 63 Fat Emulsion 20% 250 ml @ 63 20.833 mls/hr IV MoWeFr [facility] Rx#:[id number] Oral 720 100 Blood Product 320 Platelet Irr Pheresis 2 320 Acda Unit [id number] Other: Voiding Method Bedside Commode Bedside Commode Diaper Diaper Incontinent Incontinent # Voids 2 1 # Bowel Movements 1 - Constitutional General appearance: Present: no acute distress - EENT Eyes: Present: EOMI ENT: Present: hearing grossly normal, normal oropharynx - Respiratory Respiratory: bilateral: diminished - Cardiovascular Rhythm: regular Heart sounds: normal: S1, S2 - Gastrointestinal General gastrointestinal: Present: normal bowel sounds, soft Localized gastrointestinal: tender: epigastric periumbilical - Integumentary Integumentary: Present: normal - Neurologic Neurologic: Present: CNII-XII intact - Musculoskeletal Musculoskeletal: Present: generalized weakness, strength equal bilaterally - Psychiatric Psychiatric: Present: A&O x's 3, appropriate affect - Labs CBC & Chem 7: 06/28/19 06:35 06/28/19 06:35 Labs: Abnormal Lab Results - Last 24 Hours (Table) 06/27/19 06/27/19 06/28/19 Range/Units 17:17 23:44 06:21 WBC (3.8-10.6) k/uL RBC (3.80-5.40) m/uL Hgb (11.4-16.0) gm/dL Hct (34.0-46.0) % Plt Count (150-450) k/uL Neutrophils # (1.3-7.7) k/uL Creatinine (0.52-1.04) mg/dL POC Glucose (mg/dL) 147 H 145 H 151 H (75-99) mg/dL 06/28/19 06/28/19 06/28/19 Range/Units 06:35 06:35 11:15 WBC 1.6 L (3.8-10.6) k/uL RBC 2.46 L (3.80-5.40) m/uL Hgb 7.6 L (11.4-16.0) gm/dL Hct 20.8 L (34.0-46.0) % Plt Count 8 L* (150-450) k/uL Neutrophils # 0.4 L* (1.3-7.7) k/uL Creatinine 0.30 L (0.52-1.04) mg/dL POC Glucose (mg/dL) 170 H (75-99) mg/dL Assessment and Plan (1) Diverticulitis Narrative/Plan: The patient continues to tolerate clear liquids reasonably well without any increase in abdominal symptoms. Abdominal exam is also stable with mild ten derness in the periapical area. Continue IV hydration and antibiotic Current Visit: Yes Status: Acute Code(s): K57.92 - DVTRCLI OF INTEST, PART UNSP, W/O PERF OR ABSCESS W/O BLEED SNOMED Code(s): 698037461 (2) Abnormal CT scan, kidney Current Visit: Yes Status: Acute Code(s): R93.429 - ABNORMAL RADIOLOGIC FINDINGS ON DX IMAGING OF UNSP KIDNEY SNOMED Code(s): 262713977 (3) Pancytopenia Narrative/Plan: Generally persistent, with only mild increase in neutrophil count into the 300- 400 range noted without further progress over the past 2 days. Platelet counts today. 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 Her bone marrow had shown significant persistent involvement with CLL as well as a large cell lymphoma, despite receiving bendamustine and Rituxan 3 weeks ago which is an active regimen usually against both conditions. Prognosis, and management options were again discussed with her in detail. Her case was also discussed with oncology at [facility]. They agreed that while her underlying condition is still quite treatable with more aggressive combination chemoimmunotherapy, her prognosis would be much more guarded and risks significantly higher, due to her clinical situation, and current performance status. The patient stated that she is still "trying to get her head around everything". She has discussed her situation in detail with her sister and daughter. She is more inclined towards comfort care but has not made a final decision yet. She was advised that if she were to choose active treatment we would start combination chemoimmunotherapy inpatient. However she would have to be accep ting of the fact that her risk of adverse events would be markedly higher, and chances of success lower than the usual clinical situation. These would include significant risk of shortening life expectancy and decreasing quality of life further. She had several questions about hospice which were answered in detail. She stated that she will make a final decision in the near future and let us know. Continue supportive care in the meantime Current Visit: Yes Status: Chronic Priority: High Code(s): C91.90 - LYMPHOID LEUKEMIA, UNSPECIFIED NOT HAVING ACHIEVED REMISSION SNOMED Code(s): 28130926 (5) Physical debility Current Visit: Yes Status: Acute Priority: High Code(s): R53.81 - OTHER MALAISE SNOMED Code(s): 21783694 (6) Diffuse large B cell lymphoma Narrative/Plan: As above Current Visit: Yes Status: Acute Code(s): C83.30 - DIFFUSE LARGE B-CELL LYMPHOMA, UNSPECIFIED SITE SNOMED Code(s): 940005116
[2019-06-28] MEDS: 1: MVI, ADULT NO.4 WITH VIT K 10 ML, TRACE (CONC-1ML/DOSE) 1 ML, CALCIUM GLUCONATE 1 GM, IV SCH ×6 (12:24)
[2019-06-28 17:10] LABS: Glucose,Whole Blood 151 mg/dL (75-99)
[2019-06-28] MEDS: traMADol 50 MG TAB PO PRN ×2 (17:26→22:45)
--- NOTE | 2019-06-28 17:40 | PN ---
PROGRESS NOTE DATE OF SERVICE: 06/28/2019 This 73-year-old woman who was admitted with multiple medical problems including chronic lymphatic leukemia with significant issues with thrombocytopenia as well as leukopenia. The patient also has diverticulitis and abscess and as well as Pseudomonas sepsis. The patient also had right perinephric hematoma also. Patient being closely monitored at this time. 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 The prognosis extremely guarded and the chemotherapy has possible grave consequences and Dr. Oliva has discussed the case with the family. The patient and the family is also considering the possibility of hospice. Also patient being closely monitored at this time. PAST MEDICAL HISTORY: Reviewed. REVIEW OF SYMPTOMS: Cardiovascular as mentioned earlier. RESPIRATORY: As mentioned earlier. GI: No nausea or vomiting. : As mentioned earlier. CENTRAL NERVOUS SYSTEM: As mentioned earlier. CURRENT MEDICATIONS: Reviewed and include: 1. Tylenol p.r.n. 2. Zyloprim 300 mg daily. 3. Norvasc 5 mg b.i.d. 4. Lipitor 40 mg. 5. Tessalon Perles. 6. Tums p.r.n. 7. Lomotil q.6h p.r.n. 9. Lasix 40 mg. 11.Omeprazole 25 mg. 12.NovoLog. 13.Milk of magnesia. 14.Narcan. 15.Zofran. 16.Protonix. 17.MiraLAX. 18.Senokot. 19.Ultram. 20.Doses reviewed. EXAM: Patient is alert, oriented x3. Pulse 87. Blood pressure 141/85, respirations 16, temperature 98.2, pulse ox 97% on room air. Conjunctivae are pale. NECK: No jugular venous distention. CARDIOVASCULAR: S1, S2 muffled. RESPIRATORY: Breath sounds diminished in the bases. A few scattered rhonchi and crackles. ABDOMEN: Soft, nontender. LEGS are no edema, no swelling. CENTRAL NERVOUS SYSTEM: No focal deficits. LAB STUDIES: WBC 1.6, platelets are 8. Other labs are noted. ASSESSMENT: 1. Severe pancytopenia, neutropenia and thrombocytopenia secondary to chronic lymphoid leukemia, chemotherapy and as well as B-cell transformation, Wyatt transformation. 2. Severe thrombocytopenia requiring multiple blood transfusions and anemia secondary to bone marrow involvement requiring multiple blood transfusion as well. 3. Pseudomonas sepsis with neutropenic sepsis present on admission. 4. Acute hypoxic respiratory failure, multifactorial, present on admission. 5. Acute sigmoid diverticulitis with a diverticular abscess in the CT scan, stable. 6. Right subcapsular intraparenchymal renal hematoma, stable in size. 7. Cholelithiasis, rule out acute cholecystitis. 8. History of breast cancer. 9. 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 12.Hypokalemia. 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 14.Hypertension. 15.Hyperlipidemia. 16.History of gait dysfunction. 17.History of degenerative joint disease. 18.History of sleep apnea. 19.Obesity with body mass index of 41.1. 20.Petechial rash of lower extremities. 21.Remote history of nicotine dependence. 22.FULL CODE. RECOMMENDATIONS AND DISCUSSION: In this 73-year-old woman who presented with multiple complex medical issues, as noted earlier, the bone marrow reports available which makes the prognosis worse at this time because of multiple complex medical issues and Dr. Oliva has discussed the diagnosis and prognostic medication with the patient at this time. Also discussed with the family and the family will contemplate about possible Hospice and continue to monitor. manager clinical informatics and psychiatric social worker to monitor the patient along with facilitate hospice transfer if the family and patient finally agrees to the same. Otherwise, we will continue to monitor. Once again, the prognosis is extremely guarded because of multiple complex medical issues. Further recommendations to follow. MMODL / MILLYN: [id number] / MTDThu
[2019-06-28] MEDS: guaiFENesin SYRUP 100MG/5ML 200 MG/10 ML CUP PO PRN (20:58)
[2019-06-28] MEDS: ATORVASTATIN 40 MG TAB PO SCH (20:58)
[2019-06-28] MEDS: BENZONATATE 100 MG CAP PO PRN (20:58)
--- NOTE | 2019-06-28 23:34 | PN ---
PROGRESS NOTE DATE OF SERVICE: 06/28/2019. REASON FOR FOLLOW UP: Diverticulitis and bacteremia. INTERVAL HISTORY: The patient is currently afebrile. The patient has been breathing comfortably. The patient was mildly upset regarding the prognosis of only 3-6 months to live. The patient denies having any headache. No chest pain. Occasional cough. No abdominal pain or diarrhea. PHYSICAL EXAMINATION: Blood pressure is 152/74 with a pulse of 84. Temperature 99.3. She is 97% on . General description is an elderly female lying in bed in no distress. Respiratory system: Unlabored breathing. Clear to auscultation anteriorly. HEART: S1, S2. Regular rate and rhythm. ABDOMEN: Soft, no tenderness. LABS: Hemoglobin 7.3, white count 1.6. DIAGNOSTIC IMPRESSION AND PLAN: Patient with Pseudomonas bacteremia, diverticulitis, underlying infection has been adequately treated. The patient is currently being monitored closely off antibiotic therapy with plan for possible discharge home Sunday. Overall poor prognosis because of underlying malignancy. Continue supportive care. MMODL / IJN: [id number] /
[2019-06-28 23:50] LABS: Glucose,Whole Blood 152 mg/dL (75-99)
[2019-06-29] MEDS: INSULIN ASPART (NovoLOG) 100 UNIT/ML VIAL SQ SCH ×4 (01:01→17:58)
[2019-06-29] MEDS: SODIUM CHLORIDE 0.9% 500 ML 500 ML IV SCH (01:02)
[2019-06-29] MEDS: 1: MVI, ADULT NO.4 WITH VIT K 10 ML, TRACE (CONC-1ML/DOSE) 1 ML, CALCIUM GLUCONATE 1 GM, IV SCH ×12 (03:11→17:09)
[2019-06-29] MEDS: ONDANSETRON 4 MG/2 ML VIAL IVP PRN ×2 (03:12→17:50)
[2019-06-29] MEDS: FUROSEMIDE 10 MG/ML 4 ML VIAL IV SCH (07:58)
[2019-06-29] MEDS: FILGRASTIM-SNDZ 480 MCG/0.8 ML SYRINGE SQ SCH (07:59)
[2019-06-29] MEDS: amLODIPine 5 MG TAB PO SCH ×2 (07:59→21:17)
[2019-06-29] MEDS: PANTOPRAZOLE 40 MG TABLET PO SCH ×2 (07:59→17:05)
[2019-06-29] MEDS: ALLOPURINOL 300 MG TAB PO SCH (07:59)
[2019-06-29] MEDS: SENNOSIDES-DOCUSATE SODIUM 1 EACH TAB PO PRN (08:05)
[2019-06-29 08:19] LABS: African American GFR (CKD) >90 (>60 ml/min/1.73 sqM); Anion Gap 8 mmol/L; Blood Urea Nitrogen 19 mg/dL (7-17); Calcium 8.1 mg/dL (8.4-10.2); Carbon Dioxide 28 mmol/L (22-30); Chloride 100 mmol/L (98-107); Glucose 131 mg/dL (74-99); Phosphorus 4.3 mg/dL (2.5-4.5); Potassium 3.8 mmol/L (3.5-5.1); Sodium 136 mmol/L (137-145)
--- NOTE | 2019-06-29 08:27 | P.PN ---
Subjective Progress Note Date: 06/29/19 The patient actually looks a bit better today. She denies any new complaints. She is tolerating liquids. No history of increasing abdominal pain or diarrhea Objective - Vital Signs Vital signs: Vital Signs Temp 98.1 F 06/29/19 04:54 Pulse 92 06/29/19 04:54 Resp 18 06/29/19 04:54 BP 131/64 06/29/19 04:54 Pulse Ox 96 06/29/19 04:54 Intake & Output 06/28/19 06/29/19 06/29/19 18:59 06:59 18:59 Intake Total 1333 100 Balance 1333 100 Weight 92.5 kg Intake: Intake, IV Titration 1018 Amount Calcium Gluconate 1 gm 1018 Magnesium Sulfate gm 1 gm Sodium Chloride 2.5MEQ/ ml Vial 15 meq In Amino Acid 4.25%-D10w+Lytes*E* 1,000 ml @ 70 mls/hr IV . BY DURATION [facility] Rx#: [id number] Oral 100 Blood Product 315 Platelet Irr Pheresis 2 315 Acda Unit [id number] Other: Voiding Method Bedside Commode Bedside Commode Diaper Diaper Incontinent Incontinent # Voids 3 3 # Bowel Movements 2 - Constitutional General appearance: Present: no acute distress - EENT Eyes: Present: EOMI ENT: Present: hearing grossly normal, normal oropharynx - Respiratory Respiratory: bilateral: diminished - Cardiovascular Rhythm: regular Heart sounds: normal: S1, S2 - Gastrointestinal General gastrointestinal: Present: soft Localized gastrointestinal: tender: epigastric periumbilical (Mild) - Neurologic Neurologic: Present: CNII-XII intact - Musculoskeletal Musculoskeletal: Present: generalized weakness - Psychiatric Psychiatric: Present: A&O x's 3, appropriate affect - Labs CBC & Chem 7: 06/28/19 06:35 06/29/19 07:17 Labs: Abnormal Lab Results - Last 24 Hours (Table) 06/28/19 06/28/19 06/28/19 Range/Units 06:35 11:15 17:08 WBC 1.6 L (3.8-10.6) k/uL RBC 2.46 L (3.80-5.40) m/uL Hgb 7.6 L (11.4-16.0) gm/dL Hct 20.8 L (34.0-46.0) % Plt Count 8 L* (150-450) k/uL Neutrophils # 0.4 L* (1.3-7.7) k/uL Sodium (137-145) mmol/L BUN (7-17) mg/dL Creatinine (0.52-1.04) mg/dL Glucose (74-99) mg/dL POC Glucose (mg/dL) 170 H 151 H (75-99) mg/dL Calcium (8.4-10.2) mg/dL 06/28/19 06/29/19 Range/Units 23:48 07:17 WBC (3.8-10.6) k/uL RBC (3.80-5.40) m/uL Hgb (11.4-16.0) gm/dL Hct (34.0-46.0) % Plt Count (150-450) k/uL Neutrophils # (1.3-7.7) k/uL Sodium 136 L (137-145) mmol/L BUN 19 H (7-17) mg/dL Creatinine 0.37 L (0.52-1.04) mg/dL Glucose 131 H (74-99) mg/dL POC Glucose (mg/dL) 152 H (75-99) mg/dL Calcium 8.1 L (8.4-10.2) mg/dL Assessment and Plan (1) Diffuse large B cell lymphoma Narrative/Plan: We have had extensive discussion with the patient regarding management options, especially in light of her current status. She has considered the patient extensively, and also discussed with her sister. She states that she decided not to go for active treatment, and has decided on comfort care. Hospice consult has been initiated. Patient will be discharged home once arrangements are in place. Continue current management while in the hospital. Current Visit: Yes Status: Acute Code(s): C83.30 - DIFFUSE LARGE B-CELL LYMPHOMA, UNSPECIFIED SITE SNOMED Code(s): 203740871 (2) CLL (chronic lymphocytic leukemia) Narrative/Plan: As above Current Visit: Yes Status: Chronic Priority: High Code(s): C91.90 - LYMPHOID LEUKEMIA, UNSPECIFIED NOT HAVING ACHIEVED REMISSION SNOMED Code(s): 64718112 (3) Pancytopenia Narrative/Plan: Labs are pending today. Continue transfusion support as needed while inpatient. Current Visit: Yes Status: Acute Priority: High Code(s): D61.818 - OTHER PANCYTOPENIA SNOMED Code(s): 370619211 (4) Physical debility Current Visit: Yes Status: Acute Priority: High Code(s): R53.81 - OTHER MALAISE SNOMED Code(s): 20550630 (5) Diverticulitis Current Visit: Yes Status: Acute Code(s): K57.92 - DVTRCLI OF INTEST, PART UNSP, W/O PERF OR ABSCESS W/O BLEED SNOMED Code(s): 337718903 (6) Abnormal CT scan, kidney Current Visit: Yes Status: Acute Code(s): R93.429 - ABNORMAL RADIOLOGIC FINDINGS ON DX IMAGING OF UNSP KIDNEY SNOMED Code(s): 797753727
[2019-06-29 11:29] LABS: Glucose,Whole Blood 163 mg/dL (75-99)
[2019-06-29 11:58] LABS: Basophils % (A) 0 %; Eosinophils % (A) 3 %; Lymphocytes # (A) 0.9 k/uL (1.0-4.8); Lymphocytes % (A) 61 %; MCH 30.3 pg (25.0-35.0); MCHC 35.2 g/dL (31.0-37.0); MCV 86.1 fL (80.0-100.0); Mean Platelet Volume 7.9; Monocytes # (A) 0.1 k/uL (0-1.0); Monocytes % (A) 5 %; Neutrophils % (A) 28 %; RBC 2.17 m/uL (3.80-5.40); RDW 13.7 % (11.5-15.5)
[2019-06-29 12:00] LABS: HCT 18.6 % (34.0-46.0); HGB 6.6 gm/dL (11.4-16.0); Platelet Count 12 k/uL (150-450); WBC 1.4 k/uL (3.8-10.6)
[2019-06-29 12:01] LABS: Neutrophils # (A) 0.4 k/uL (1.3-7.7)
[2019-06-29 12:27] LABS: Poikilocytosis (M) Present
[2019-06-29] MEDS: traMADol 50 MG TAB PO PRN ×2 (14:44→21:17)
[2019-06-29 17:27] LABS: Glucose,Whole Blood 148 mg/dL (75-99)
[2019-06-29] MEDS: ACETAMINOPHEN TAB 325 MG TAB PO PRN (17:42)
--- NOTE | 2019-06-29 18:19 | PN ---
PROGRESS NOTE DATE OF SERVICE: 06/29/2019. This 73-year-old woman who was admitted with severe pancytopenia also found to have B- cell transformation Wyatt transformation in the bone marrow. Testing the case. I discussed the case at length with the family and the family would like to consider hospice at this time. The patient is being transfused at this time. Patient received platelet transfusion yesterday. Platelets are 12 today, WBC 1.4, hemoglobin 6.6. PAST MEDICAL HISTORY: Reviewed. REVIEW OF SYSTEM: CARDIOVASCULAR SYSTEM: No angina or palpitations. RESPIRATORY: As mentioned earlier. GI as mentioned earlier. no dysuria. CENTRAL NERVOUS SYSTEM: No numbness or weakness. CURRENT MEDICATIONS: Reviewed and include: 1. Tylenol 650 q.4 p.r.n. 2. Zyloprim 300 mg daily. 3. Norvasc 5 mg p.o. b.i.d. 4. Lipitor 40 mg q.h.s. 5. TUMS. 6. Calcium gluconate. 7. Lomotil. 8. . 9. Lasix. 10.Apresoline. 11.NovoLog scale. 12.Milk of magnesia. 13.Narcan. 14.Zofran. 15.Protonix. 16.MiraLAX. 17.Senokot-S. 18.Ultram. 19.Doses reviewed. PHYSICAL EXAM: Patient is alert, oriented x3. Pulse 89, blood pressure 131/65, respiration 18, temperature 97.2, pulse ox 96% on CPAP. HEENT: Conjunctivae pale. Oral mucosa moist. NECK is no jugular venous distention. No carotid bruit. No lymph node enlargement. CARDIOVASCULAR: S1, S2 muffled. RESPIRATIONS: Breath sounds diminished in the bases. Bilateral scattered rhonchi and crackles. Expiratory wheezing also present. ABDOMEN: Soft, nontender. No mass palpable. LEGS: No edema. No swelling. NERVOUS SYSTEM: Higher functions as mentioned earlier. Moves all four extremities. No focal motor or sensory deficits. LYMPHATICS: No lymph nodes palpable in the neck, axillae or groin. SKIN: No ulcer, no rashes and no bleeding. JOINTS: No active deforming arthropathy. LAB STUDIES: WBC 11.4, hemoglobin 6.6, platelets 12. Sodium 136. ASSESSMENT: 1. Severe pancytopenia, neutropenia, thrombocytopenia secondary to chronic lymphoid leukemia on chemotherapy as well as B-cell transformation, Wyatt's transformation with severe thrombocytopenia, recurrent multiple blood transfusions and anemia secondary to bone marrow involvement requiring multiple blood transfusions as well. 2. Pseudomonas sepsis with neutropenic sepsis, present on admission. 3. Acute hypoxic respiratory failure, multifactorial, present on admission. 4. Acute sigmoid diverticulitis with a diverticular abscess in the CT scan, stable. 5. Right subcapsular and intraparenchymal renal hematoma, stable in size. 6. Cholelithiasis. 7. History of breast cancer. 8. History of gastrointestinal stromal neoplasm. 9. History of HSV mucositis. 10.Hypokalemia. 11.Myopathy related to chronic illness. 12.Hypertension. 13.Hyperlipidemia. 14.History of gait dysfunction. 15.History of degenerative joint disease. 16.History of sleep apnea. 17.Obesity with body mass index of 41.1. 18.Petechial rash on the lower extremity. 19.Remote history of nicotine dependence. 20.FULL CODE. RECOMMENDATIONS AND DISCUSSION: I recommend to continue current medication, continue symptomatic treatment. Otherwise, as mentioned earlier the family is also considering contemplating hospice at this time. Social Work/Case Management to arrange for hospice. Otherwise, we will continue to monitor. Discussed with family at length. Questions answered. Further recommendations to follow. MMODL / IJN: [id number] /
[2019-06-29] MEDS: ATORVASTATIN 40 MG TAB PO SCH (21:17)
[2019-06-29] MEDS: guaiFENesin SYRUP 100MG/5ML 200 MG/10 ML CUP PO PRN (22:04)
[2019-06-29] MEDS: BENZONATATE 100 MG CAP PO PRN (22:04)
[2019-06-30 00:03] LABS: Glucose,Whole Blood 148 mg/dL (75-99)
[2019-06-30] MEDS: INSULIN ASPART (NovoLOG) 100 UNIT/ML VIAL SQ SCH ×5 (00:56→23:54)
[2019-06-30] MEDS: ONDANSETRON 4 MG/2 ML VIAL IVP PRN ×2 (01:09→07:25)
[2019-06-30 06:07] LABS: Glucose,Whole Blood 158 mg/dL (75-99)
[2019-06-30] MEDS: SODIUM CHLORIDE 0.9% 500 ML 500 ML IV SCH (06:09)
[2019-06-30] MEDS: traMADol 50 MG TAB PO PRN ×2 (07:31→20:24)
[2019-06-30] MEDS: amLODIPine 5 MG TAB PO SCH ×2 (07:48→20:22)
[2019-06-30] MEDS: ALLOPURINOL 300 MG TAB PO SCH (07:48)
[2019-06-30] MEDS: FUROSEMIDE 10 MG/ML 4 ML VIAL IV SCH (07:48)
[2019-06-30] MEDS: 1: MVI, ADULT NO.4 WITH VIT K 10 ML, TRACE (CONC-1ML/DOSE) 1 ML, CALCIUM GLUCONATE 1 GM, IV SCH ×6 (07:49)
[2019-06-30] MEDS: FAT EMULSION 20% 250 ML IV SCH (07:49)
[2019-06-30] MEDS: PANTOPRAZOLE 40 MG TABLET PO SCH ×2 (07:49→17:34)
[2019-06-30] MEDS: SENNOSIDES-DOCUSATE SODIUM 1 EACH TAB PO PRN (07:53)
[2019-06-30] MEDS: FILGRASTIM-SNDZ 480 MCG/0.8 ML SYRINGE SQ SCH (07:53)
[2019-06-30 10:46] VITALS: BMI 40.0
[2019-06-30 10:56] LABS: Glucose,Whole Blood 156 mg/dL (75-99)
[2019-06-30 11:06] LABS: HCT 20.6 % (34.0-46.0); HGB 7.5 gm/dL (11.4-16.0); Hyperchromasia Slight; MCH 30.4 pg (25.0-35.0); MCHC 36.3 g/dL (31.0-37.0); MCV 83.6 fL (80.0-100.0); Mean Platelet Volume 6.8; RBC 2.47 m/uL (3.80-5.40); RDW 13.7 % (11.5-15.5); WBC 1.8 k/uL (3.8-10.6)
[2019-06-30 11:10] LABS: Platelet Count 6 k/uL (150-450)
[2019-06-30 11:51] LABS: Neutrophils % (M) 22 %
[2019-06-30 11:52] LABS: Lymphocytes # (M) 1.33 k/uL (1.0-4.8); Monocytes # (M) 0.07 k/uL (0-1.0); Nucleated Red Blood Cells 0 /100 WBC (0-0); Total Cells Counted 100
[2019-06-30 12:00] LABS: Anisocytosis (M) Present; Poikilocytosis (M) Present
--- NOTE | 2019-06-30 12:58 | P.PN ---
Subjective Progress Note Date: 06/30/19 Principal diagnosis: Pancytopenia secondary to CLL, completed first cycle of chemo/monoclonal antibody therapy. 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 In f/u today pt sister at bedside, pt did not sleep well last night and has just fallen asleep, per proxy pt had no acute physical c/o Objective - Vital Signs Vital signs: Vital Signs Temp 97.6 F 06/30/19 12:31 Pulse 79 06/30/19 12:31 Resp 17 06/30/19 12:31 BP 131/59 06/30/19 12:31 Pulse Ox 97 06/30/19 12:31 Intake & Output 06/29/19 06/30/19 06/30/19 18:59 06:59 18:59 Intake Total 1018 310 0 Balance 1018 310 0 Weight 93 kg 93 kg Intake: Intake, IV Titration 1018 Amount Calcium Gluconate 1 gm 1018 Magnesium Sulfate gm 1 gm Sodium Chloride 2.5MEQ/ ml Vial 15 meq In Amino Acid 4.25%-D10w+Lytes*E* 1,000 ml @ 70 mls/hr IV . BY DURATION [facility] Rx#: [id number] Blood Product 0 310 0 Platelet Irr Pheresis 0 Acda1 Unit [id number] Rc Irr As1 Unit 0 310 [id number] Other: Voiding Method Bedside Commode Bedside Commode Bedside Commode Diaper Diaper Diaper Incontinent Incontinent Incontinent # Voids 2 1 # Bowel Movements 1 - Constitutional General appearance: Present: no acute distress, obese - Respiratory Details: respirations are unlabored - Cardiovascular Details: hands warm to the touch - Allied health notes Allied health notes reviewed: nursing - Labs CBC & Chem 7: 06/30/19 10:31 06/29/19 07:17 Labs: Abnormal Lab Results - Last 24 Hours (Table) 06/29/19 06/29/19 06/30/19 Range/Units 14:39 17:26 00:02 WBC (3.8-10.6) k/uL RBC (3.80-5.40) m/uL Hgb (11.4-16.0) gm/dL Hct (34.0-46.0) % Plt Count (150-450) k/uL Neutrophils # (Manual) (1.3-7.7) k/uL POC Glucose (mg/dL) 148 H 148 H (75-99) mg/dL Crossmatch See Detail 06/30/19 06/30/19 06/30/19 Range/Units 06:06 10:31 10:55 WBC 1.8 L (3.8-10.6) k/uL RBC 2.47 L (3.80-5.40) m/uL Hgb 7.5 L (11.4-16.0) gm/dL Hct 20.6 L (34.0-46.0) % Plt Count 6 L* (150-450) k/uL Neutrophils # (Manual) 0.40 L* (1.3-7.7) k/uL POC Glucose (mg/dL) 158 H 156 H (75-99) mg/dL Crossmatch Assessment and Plan (1) Wyatt's syndrome Narrative/Plan: Dr. Oliva had a long discussion about the implications of transformation of CLL to DLBCL, treatment options, risks, probability of sustainable or meaningful remission and prognosis. Pt has opted to go home with hospice with her full support of hr family. Pending establishment of care at home with proper support. Pt will be discharged home when in place. Family had a few questions the we discussed today. All questions answered to the best of my ability. Current Visit: Yes Status: Acute Priority: High Code(s): C91.10 - CHRONIC LYMPHOCYTIC LEUK OF B-CELL TYPE NOT ACHIEVE REMIS SNOMED Code(s): 038509413 (2) Abdominal pain Current Visit: Yes Status: Acute Priority: High Code(s): R10.9 - UNSPECIFIED ABDOMINAL PAIN SNOMED Code(s): 30411655 (3) Pancytopenia Narrative/Plan: Secondary to disease. Bone marrow biopsy performed, Wyatt's transformation, plan is for hospice We will transfuse pt palliatively while in the hospital. No PRBCs today, Hgb 7.5. Plt transfusion ordered Irradiated blood products. Crossmatched platelets. Stop growth factor support on DC. Current Visit: Yes Status: Acute Priority: High Code(s): D61.818 - OTHER PANCYTOPENIA SNOMED Code(s): 527851351 (4) Moderate protein-calorie malnutrition Narrative/Plan: TPN will be discontinued on DC. Pt can eat to tolerance/pleasure Current Visit: Yes Status: Acute Priority: High Code(s): E44.0 - MODERATE PROTEIN-CALORIE MALNUTRITION SNOMED Code(s): 389615630 (5) Physical debility Current Visit: Yes Status: Acute Priority: High Code(s): R53.81 - OTHER MALAISE SNOMED Code(s): 26547215 (6) Hypogammaglobulinemia Current Visit: Yes Status: Acute Priority: High Code(s): D80.1 - NONFAMILIAL HYPOGAMMAGLOBULINEMIA SNOMED Code(s): 115308738 (7) CLL (chronic lymphocytic leukemia) Current Visit: Yes Status: Chronic Priority: High Code(s): C91.90 - LYMPHOID LEUKEMIA, UNSPECIFIED NOT HAVING ACHIEVED REMISSION SNOMED Code(s): 63490687 (8) Bacteremia due to Pseudomonas Current Visit: Yes Status: Resolved Priority: High Code(s): R78.81 - BACTEREMIA SNOMED Code(s): 400131640261
--- NOTE | 2019-06-30 15:40 | P.PN ---
Subjective Progress Note Date: 06/30/19 Principal diagnosis: This is a 73-year-old woman who was admitted with pancytopenia, sepsis, acute hypoxic respiratory failure, hypokalemia and was currently receiving chemotherapy for chronic lymphoid leukemia and is being closely monitored. Patient is being followed by multiple consultations including oncology surgery, infectious disease, and pulmonary. This morning patient was nauseated with some vomiting noted that was relieved with Zofran. Patient's platelets this morning were 6 and currently receiving a transfusion at this time. Hemoglobin is 7.4 and will continue to monitor closely. Current potassium is 4.1. Patient is lying in bed in no acute distress stating that she feels fatigued and weak and unable to increase her energy and strength. PT/OT is following. Guarded prognosis. 06/12/2019 Patient is sitting up in bed in no acute distress. No increase in nausea or vomiting today. Patient is tolerating full liquids at this time and may advance as tolerated. Patient denies any other issues overnight. Patient denies any chest pain, shortness of breath, or palpitations at this time. Patient remains afebrile. Patient is still having some abdominal discomfort in the lower rib cage area on the sides due to her cough she states. Will continue to monitor closely. Hematology oncology is following closely. Guarded prognosis. 06/13/2019 Patient is sitting up in bed in no acute distress. A friend or family at the bedside visiting. Patient is tolerating diet and denies any nausea or vomiting at this time. Diet has been advanced. Patient denies any chest pain, shortness of breath, or palpitations at this time. Patient did have a low-grade fever today. Infectious disease is following. Patient antibiotics are currently oral Cipro and Flagyl and will continue. Patient is requesting something more for the cough as she continues to have a cough with no phlegm production. Robitussin-AC was ordered. Patient states that Tessalon Perles were not helping. Patient is having some mild side pain at her ribs due to the cough. PT/OT are following. Patient has not had the strength to get up and work with them at this time. Will continue to encourage working with PT/OT. Patient's hemoglobin and platelets have much improved today. Patient's hemoglobin is 7.8 and platelets are 22. Oncology is following closely. Discussed with the patient at length today about rehab as it would not be in her best interest to return home at this time due to the weakness and fatigue. Patient has agreed to a rehab. Case management and social work are working on possible placement. Dr. Da Silva was consulted and awaiting report. Guarded prognosis. 06/17/2019 This is a 73-year-old woman who was admitted with multiple complex medical issue s with severe pancytopenia, leukopenia, and significant thrombocytopenia, CLL on chemotherapy and is being closely monitored. Hematology/oncology Dr. Oliva is following closely and patient is to remain nothing by mouth except educations, ice chips, popsicles. The patient is currently being maintained on TPN. Patient continues to have mild upper abdominal discomfort on the left and right sides the patient states it is due to the cough that she is still experiencing. Patient is very fatigued and lethargic today. Patient's hemoglobin today is 6.5 and her platelet count is 5. Patient is going to be transfused with 1 unit PRBC and 1 unit of platelets. Will continue to monitor labs closely. Patient seems more sad and discouraged today after receiving her lab values and states she just doesn't understand why nothing is improving. Discussed with the patient at length today about these findings and will continue to monitor. Family is at the bedside. Guarded prognosis. 06/18/2019 Patient is sitting up at the chair in no acute distress. Patients platelet count was low today again current platelet count is 9 and currently awaiting transfusion. Hemoglobin is 6.8 and will be transfused as well. Dr. Oliva is following closely. Patient continues to be nothing by mouth at this time except for medications and ice chips. Patient is still having a lot of mid abdominal pain and discomfort due to her cough. Patient is taking Robitussin-AC for the cough. Patient denies any chest pain, shortness of breath, or palpitations at this time. Patient denies any nausea or vomiting and is currently nothing by mouth and on TPN. patient is currently afebrile. Chest x-ray done yesterday sh ows right upper lobe opacities that are stable with new perihilar and left costophrenic angle opacities. Multifocal pneumonia is likely. Infectious disease is following. Patient is currently on IV antibiotics in the form of Aztreonam and Flagyl. Guarded prognosis. 06/19/2019 Patient is sitting up in the chair in no acute distress. Patient did not receive a unit of packed red blood cells yesterday and hemoglobin today is 6.1. There is a unit ready per lab and will be transfused after antibiotics have finished. Platelets today are 9 and will be transfused later today. Patient continues to be nothing by mouth except for medications and ice chips at this time still. Patient states there are no new changes from yesterday and is still having a dry hacking cough with discomfort on the sides of her abdomen near her rib cage. Patient is denying any chest pain or shortness of breath at this time. Patient is afebrile. Patient continues to have a decrease in strength and is going back to bed to rest issue as she will be working with PT/OT this afternoon. Family is at the bedside. Chest x-ray yesterday shows some increase in volume and patient will be given IV Lasix 40 mg daily. Influenza testing will also be done and is currently pending. Guarded prognosis. 06/20/19 Patient is sitting up in no acute distress. Patient was able to work with PT/OT yesterday with minimal to moderated assist and walked a few feet and and tolerated well. Patient platelets were 15 and hemoglobin is 7.4 today requiring no transfusions at this time. Will continue to monitor. Oncology is following closely. Patients diet has advanced and tolerating well. Patient still has a dry cough at times that is causing bilateral rib cage side pain with coughing spells. patient states that the pain has decreased. Influenza yesterday was negative. Guarded prognosis. 06/23/2019 Patient is sitting up in bed with sister at the bedside in no acute distress. Patient has just returned from a bone marrow biopsy with Dr. Oliva and is being closely monitored. Patient hemoglobin is 6.5 with a platelet count of 12 this morning. Patient will be receiving 1 unit of PRBC's this am. Multiple consultants are following at this time. Patient is currently on Flagyl and Aztreonam per infectious diseases recommendations. 06/24/2019 Patient is lying in bed in no acute distress. Patient continues to have increased fatigue and an inability to work with PT/OT due to her weakness. Patient currently still has diarrhea at this time and is being closely monitored. Multiple medical consultants are following. Oncology is following closely. Patient is currently still on TPN and is able to have clear liquids but states she does not have an appetite at this time. Patient continues to have a dry, hacking cough that is causing bilateral side pain. Patient's hemoglobin is 7.2 today with a platelet count of 6 and will receive a transfusion of platelets today. Extremely guarded prognosis. 06/25/2019 Patient is sitting up in the chair in no acute distress. Patient denies any chest pain, shortness of breath, or palpitations at this time. Patient is currently on clear liquids and tolerating but states it's not much of a selection sore eating has been very minimal. Patient is still maintained on TPN at this time. Patient denies any nausea or vomiting at this time but states that when she gets into a coughing spell she starts having dry heaves upon getting out of bed every morning. Patient currently has Robitussin with codeine as well as Tessalon Perles as needed for cough. Patient states that they are effective but when she receives the Robitussin with codeine she is unable to get anything else and the Robitussin only works for a very short time. Patient states that she has been getting up and working with PT/OT but is still quite fatigued on exertion. Patient's hemoglobin was 6.9 this morning and is currently receiving a unit of packed red blood cells. Patient's platelet count is 11 today. Patient's antibiotics have been discontinued per infectious disease at this time. Will continue to monitor closely. Extremely guarded prognosis. 06/26/2019 Patient is sitting up in bed in no acute distress with sister at the bedside. Patient is being followed multiple medical consultants. Patient is currently awaiting bone marrow biopsy report and was hoping it would be today. Oncology is following closely. Patient's platelets this morning were 8 and will be receiving 1 unit. Hemoglobin was 8 today as well. Patient states that she still is having loose stools and diarrhea but currently denies any abdominal discomfort. Patient is on clear liquids and tolerating. Patient denies any chest pain, shortness of breath, or palpitations at this time. Patient is afebrile. Patient denies any nausea or vomiting at this time. Will continue to monitor closely. 06/27/2019 Patient is sitting up in the chair in no acute distress. Patient continues to have a cough that is dry and hacking. Repeat chest x-ray this morning shows multifocal opacities throughout. Patient denies any shortness of breath, chest pain, or palpitations. Patient is afebrile. Denies any nausea or vomiting. Patient states that the cough has not gotten any worse and has slightly improved actually. Patient also states that when she has the CPAP on she has almost no coughing. Infectious disease is following. Patient's hemoglobin today was 7.1 and platelets were 7. Patient is receiving 1 unit of platelets at this time. Guarded prognosis. 06/30/2019 Patient is sitting up in bed in no acute distress with sister and hospice nurse at the bedside. The patient has opted to go home with hospice home care due to her recent update of diagnosis. Oncology is following closely. Sister is attempting to work out 24 7 care at the home at this time and will follow-up with hospice once this all has been arranged. Patient denies any chest pain, shortness of breath, or palpitations at this time. Patient is still having a cough but is not worsened. Patient tolerating clear liquids at this time and TPN is still being maintained until discharge. Patient is to receive a unit of platelets today for a platelet count of 6. Hemoglobin is 7.5 today. Will continue to monitor closely. Objective - Vital Signs Vital signs: Vital Signs Temp 97.8 F 06/30/19 13:43 Pulse 82 06/30/19 13:43 Resp 18 06/30/19 13:43 BP 144/67 06/30/19 13:43 Pulse Ox 94 L 06/30/19 13:43 Intake & Output 06/29/19 06/30/19 06/30/19 18:59 06:59 18:59 Intake Total 1018 310 298 Balance 1018 310 298 Weight 93 kg 93 kg Intake: Intake, IV Titration 1018 Amount Calcium Gluconate 1 gm 1018 Magnesium Sulfate gm 1 gm Sodium Chloride 2.5MEQ/ ml Vial 15 meq In Amino Acid 4.25%-D10w+Lytes*E* 1,000 ml @ 70 mls/hr IV . BY [facility]ATION [facility] Rx#: [id number] Blood Product 0 310 298 Platelet Irr Pheresis 298 Acda1 Unit [id number] Rc Irr As1 Unit 0 310 [id number] Other: Voiding Method Bedside Commode Bedside Commode Bedside Commode Diaper Diaper Diaper Incontinent Incontinent Incontinent # Voids 2 1 # Bowel Movements 1 - Exam Gen: This is a 73-year-old female sitting up in the chair in no acute distress. Vital signs are stable. Temp is 98.8 F, pulse is 80, respirations are 18, blood pressure is 132/96, oxygen saturation is 91 % on room air HEENT: Head is atraumatic, normocephalic. Pupils equal, round. Sclerae is anicteric. Oral mucosa is dry and pale. Left eyelid closed NECK: Supple. No JVD. No lymphadenopathy. No thyromegaly. LUNGS: Diminished breath sounds at the bases with scattered rhonchi. Expiratory wheezing noted. No intercostal retractions. HEART: S1 and S2 are muffled. No murmur. ABDOMEN: Soft. Bowel sounds are present. No masses. EXTREMITIES: No pedal edema. No calf tenderness. NEUROLOGICAL: Patient is awake, alert and oriented x3. Cranial nerves 2 through 12 are grossly intact. - Labs CBC & Chem 7: 06/30/19 10:31 06/29/19 07:17 Labs: Abnormal Lab Results - Last 24 Hours (Table) 06/29/19 06/29/19 06/30/19 Range/Units 14:39 17:26 00:02 WBC (3.8-10.6) k/uL RBC (3.80-5.40) m/uL Hgb (11.4-16.0) gm/dL Hct (34.0-46.0) % Plt Count (150-450) k/uL Neutrophils # (Manual) (1.3-7.7) k/uL POC Glucose (mg/dL) 148 H 148 H (75-99) mg/dL Crossmatch See Detail 06/30/19 06/30/19 06/30/19 Range/Units 06:06 10:31 10:55 WBC 1.8 L (3.8-10.6) k/uL RBC 2.47 L (3.80-5.40) m/uL Hgb 7.5 L (11.4-16.0) gm/dL Hct 20.6 L (34.0-46.0) % Plt Count 6 L* (150-450) k/uL Neutrophils # (Manual) 0.40 L* (1.3-7.7) k/uL POC Glucose (mg/dL) 158 H 156 H (75-99) mg/dL Crossmatch Assessment and Plan Assessment: Severe pancytopenia, neutropenia, and thrombocytopenia secondary to chronic lymphoid leukemia on chemotherapy as well as B-cell transformation, Wyatt's transformation with severe thrombocytopenia, recurrent multiple blood transfusions and anemia secondary to bone marrow involvement requiring multiple blood transfusions as well Severe thrombocytopenia requiring multiple platelet transfusions. Platelets today are 6. Hemoglobin is 7.5. 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 Multiple medical consultations are following closely. Will continue to monitor. Extremely guarded prognosis. Further recommendations to follow. Social work and case management are following closely. Patient and sister spoke with hospice nurse today and are setting up accommodations to have hospice at home. Sister is currently working on resources for 24/7 care at the home. Possible discharge in 24-48 hours.
[2019-06-30 17:06] LABS: Glucose,Whole Blood 148 mg/dL (75-99)
[2019-06-30] MEDS: ATORVASTATIN 40 MG TAB PO SCH (20:22)
[2019-06-30] MEDS: guaiFENesin SYRUP 100MG/5ML 200 MG/10 ML CUP PO PRN (21:41)
[2019-06-30 23:38] LABS: Glucose,Whole Blood 127 mg/dL (75-99)
[2019-07-01 05:05] VITALS: BP 167/72; PULSE 88; RESP 18; TEMP 99.1
[2019-07-01] MEDS: 1: MVI, ADULT NO.4 WITH VIT K 10 ML, TRACE (CONC-1ML/DOSE) 1 ML, CALCIUM GLUCONATE 1 GM, IV SCH ×6 (05:18)
[2019-07-01] MEDS: SODIUM CHLORIDE 0.9% 500 ML 500 ML IV SCH (05:19)
[2019-07-01 06:32] LABS: Glucose,Whole Blood 128 mg/dL (75-99)
[2019-07-01] MEDS: INSULIN ASPART (NovoLOG) 100 UNIT/ML VIAL SQ SCH (06:38)
[2019-07-01] MEDS: guaiFENesin SYRUP 100MG/5ML 200 MG/10 ML CUP PO PRN (06:39)
[2019-07-01] MEDS: ONDANSETRON 4 MG/2 ML VIAL IVP PRN (06:40)
[2019-07-01] MEDS: PANTOPRAZOLE 40 MG TABLET PO SCH (10:34)
[2019-07-01] MEDS: FUROSEMIDE 10 MG/ML 4 ML VIAL IV SCH (10:34)
[2019-07-01] MEDS: ALLOPURINOL 300 MG TAB PO SCH (10:34)
[2019-07-01] MEDS: amLODIPine 5 MG TAB PO SCH (10:34)
[2019-07-01] MEDS: FILGRASTIM-SNDZ 480 MCG/0.8 ML SYRINGE SQ SCH (10:35)
--- NOTE | 2019-07-01 14:07 | P.DS ---
Providers Date of admission: 05/19/19 10:49 Expected date of discharge: 07/01/19 Attending physician: Hetal Rondon Consults: 05/19/19 10:22 Consult Physician Routine Consulting Provider: Tomy Oliva Consult Reason/Comments: CLL, pancytopenia Do you want consulting provider notified?: Yes 05/19/19 12:19 Consult Physician Urgent Consulting Provider: Puja Metz Consult Reason/Comments: hypoxia and pulmonary infelterate Do you want consulting provider notified?: Yes 05/19/19 14:44 Consult Physician Routine Consulting Provider: Sergo Zavala Consult Reason/Comments: prolonged neutropenia Do you want consulting provider notified?: Yes 05/29/19 15:07 Consult Physician Routine Consulting Provider: Pee Resendiz Consult Reason/Comments: hematuria Do you want consulting provider notified?: Already Contacted 06/04/19 09:30 Consult Physician Routine Consulting Provider: Puja Metz Consult Reason/Comments: Bilateral Pleural Effusion Do you want consulting provider notified?: Yes 06/04/19 10:43 Consult Physician Urgent Consulting Provider: Nestor James Consult Reason/Comments: Diverticulitis/Possible bowel perforation Do you want consulting provider notified?: Already Contacted 06/13/19 12:36 Consult Physician Stat Consulting Provider: Riley Da Silva Consult Reason/Comments: inpatient rehab Do you want consulting provider notified?: Yes Primary care physician: Temo Batista [facility] Course: Final diagnosis Severe pancytopenia, neutropenia, thrombocytopenia secondary to chronic lymphoid leukemia with T-cell transformation, Wyatt's transformation with severe thrombocytopenia Severe thrombocytopenia requiring multiple platelet transfusions Pseudomonas sepsis with neutropenic sepsis, present on admission Acute hypoxic respiratory failure, multifactorial, present on admission Acute sigmoid diverticulitis, diverticular abscess Right subscapular and intraparenchymal renal hematoma Cholelithiasis History breast cancer History of gastrointestinal stromal neoplasm History of HSV, mucositis Hypokalemia 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 Patient will be following up with [facility] in the outpatient setting to arrange for at home hospice. Family has also arranged for 247 care with home care. Total time taken is 35 minutes. History of present illness This is a 73-year-old female who was admitted with multiple medical problems including chronic lymphatic leukemia with significant issues with thrombocytopenia as well as leukopenia. During hospitalization patient was also found to have diverticulitis and abscess as well as Pseudomonas sepsis. Multiple medical consultations were following closely along with oncology. Patient received multiple units of platelets and packed red blood cells during hospitalization with no significant improvement. Patient underwent a bone marrow biopsy that showed lymphomatous transformation, Wyatt transformation and options were discussed in detail with oncology. After speaking with the family at length patient had decided that she wanted to go home and receive hospice in-home. Arrangements were made for 247 care with [facility] following closely. Currently patient's condition is stable with an extremely poor prognosis. Patient's sister is at the bedside and preparing the patient for home. On exam, vital signs are stable. Temp is 99.1F, pulse is 88, respirations are 18, blood pressure is 167/72, oxygen saturation is 99% on the CPAP. Cardio S1 and S2 are muffled. Respiratory system shows diminished breath sounds at the bases with a few scattered crackles noted. Abdomen is soft, obese, nontender. Nervous system shows no focal deficits with mild diffuse weakness. Please refer to medication reconciliation sheet for a list of medications. Patient Condition at Discharge: Critical Plan - Discharge Summary Discharge Rx Participant: No New Discharge Prescriptions: New Furosemide [Lasix] 20 mg PO DAILY #30 tab guaiFENesin-Coden 100-10MG/5ML [Robitussin AC] 10 ml PO Q4H PRN 3 Days #180 ml PRN Reason: Cough Budesonide-Formot 160-4.5 Mcg [Symbicort 160-4.5 Mcg Inhaler] 2 puff INHALAT ION BID #1 inhaler Benzonatate [Tessalon Perles] 200 mg PO TID PRN #30 cap PRN Reason: Cough traMADol HCl [Ultram] 50 mg PO TID PRN 10 Days #30 tab PRN Reason: Pain Ondansetron Odt [Zofran Odt] 4 mg PO Q8HR PRN #30 tab PRN Reason: Nausea Changed Pantoprazole Sodium [Protonix] 40 mg PO DAILY #30 tablet.dr Discontinued amLODIPine [Norvasc] 5 mg PO BID Anastrozole [Arimidex] 1 mg PO DAILY Allopurinol [Zyloprim] 300 mg PO DAILY Docusate [Colace] 100 mg PO DAILY Ferrous Sulfate [Iron (65 MG Elemental)] 325 mg PO DAILY Atorvastatin [Lipitor] 40 mg PO HS valACYclovir [Valtrex] 1,000 mg PO BID #60 tab Discharge Medication List Benzonatate [Tessalon Perles] 200 mg PO TID PRN #30 cap 07/01/19 [Rx] Budesonide-Formot 160-4.5 Mcg [Symbicort 160-4.5 Mcg Inhaler] 2 puff INHALATION BID #1 inhaler 07/01/19 [Rx] Furosemide [Lasix] 20 mg PO DAILY #30 tab 07/01/19 [Rx] Ondansetron Odt [Zofran Odt] 4 mg PO Q8HR PRN #30 tab 07/01/19 [Rx] Pantoprazole Sodium [Protonix] 40 mg PO DAILY #30 tablet. 07/01/19 [Rx] guaiFENesin-Coden 100-10MG/5ML [Robitussin AC] 10 ml PO Q4H PRN 3 Days #180 ml 07/01/19 [Rx] traMADol HCl [Ultram] 50 mg PO TID PRN 10 Days #30 tab 07/01/19 [Rx] Follow up Appointment(s)/Referral(s): Temo Scott III, MD [Primary Care Provider] - 1-2 days [facility] Nurse, [NON-STAFF] - 1-2 Days Patient Instructions/Handouts: Benzonatate (By mouth), Furosemide (By mouth), Guaifenesin (By mouth), Tramadol (By mouth), Ondansetron (By mouth), Pantoprazole (By mouth), Budesonide/Formoterol (By breathing), Pancytopenia (DC) Activity/Diet/Wound Care/Special Instructions: Activity as tolerated Continue current diet Follow-up with [facility] Follow-up with primary care provider Discharge Disposition: HOME WITH HOSPICE
== END 2019-07-01 12:35 | disposition hospice, home (50) | DRG 871 ==
LOC: EC 08:27 → 3NMEDONC 10:49 → 2SICU 23:03 → 3NMEDONC 05-21 20:43
PROVIDERS: ADMIT Hospitalist; ATTEND Hospitalist
PROC: 30233R1 Transfusion of Nonautologous Platelets into Peripheral Vein, Percutaneous Approach (ICD-10-PCS; 2019-05-20)
PROC: 30233N1 Transfusion of Nonautologous Red Blood Cells into Peripheral Vein, Percutaneous Approach (ICD-10-PCS; 2019-05-20)
PROC: 07DR3ZX Extraction of Iliac Bone Marrow, Percutaneous Approach, Diagnostic (ICD-10-PCS; principal; 2019-06-23 07:30)
DX: A41.52 Sepsis due to Pseudomonas (principal); D61.810 Antineoplastic chemotherapy induced pancytopenia; I50.33 Acute on chronic diastolic (congestive) heart failure; J96.01 Acute respiratory failure with hypoxia; C49.A2 Gastrointestinal stromal tumor of stomach; C83.30 Diffuse large B-cell lymphoma, unspecified site; C91.10 Chronic lymphocytic leukemia of B-cell type not having achieved remission; D69.3 Immune thrombocytopenic purpura; D80.1 Nonfamilial hypogammaglobulinemia; E44.0 Moderate protein-calorie malnutrition; J95.84 Transfusion-related acute lung injury (TRALI); K57.20 Diverticulitis of large intestine with perforation and abscess without bleeding; N10 Acute pyelonephritis; N32.1 Vesicointestinal fistula; R18.8 Other ascites; S37.011A Minor contusion of right kidney, initial encounter; Z68.41 Body mass index [BMI] 40.0-44.9, adult; B00.1 Herpesviral vesicular dermatitis; E66.9 Obesity, unspecified; E78.5 Hyperlipidemia, unspecified; E86.0 Dehydration; E87.6 Hypokalemia; G47.33 Obstructive sleep apnea (adult) (pediatric); Z99.89 Dependence on other enabling machines and devices; H05.20 Unspecified exophthalmos; I11.0 Hypertensive heart disease with heart failure; I27.20 Pulmonary hypertension, unspecified; I08.0 Rheumatic disorders of both mitral and aortic valves; Z87.01 Personal history of pneumonia (recurrent); J84.10 Pulmonary fibrosis, unspecified; K12.30 Oral mucositis (ulcerative), unspecified; K58.0 Irritable bowel syndrome with diarrhea; K80.20 Calculus of gallbladder without cholecystitis without obstruction; L27.0 Generalized skin eruption due to drugs and medicaments taken internally; M19.90 Unspecified osteoarthritis, unspecified site; N28.81 Hypertrophy of kidney; R31.0 Gross hematuria; R50.81 Fever presenting with conditions classified elsewhere; T36.1X5A Adverse effect of cephalosporins and other beta-lactam antibiotics, initial encounter; T45.1X5A Adverse effect of antineoplastic and immunosuppressive drugs, initial encounter; Z51.5 Encounter for palliative care; Z87.891 Personal history of nicotine dependence; Z79.811 Long term (current) use of aromatase inhibitors; Z79.899 Other long term (current) drug therapy; Z80.1 Family history of malignant neoplasm of trachea, bronchus and lung; Z82.49 Family history of ischemic heart disease and other diseases of the circulatory system; Z92.3 Personal history of irradiation; Z96.651 Presence of right artificial knee joint; C50.911 Malignant neoplasm of unspecified site of right female breast; G72.9 Myopathy, unspecified; R26.9 Unspecified abnormalities of gait and mobility; Z88.1 Allergy status to other antibiotic agents; Z92.21 Personal history of antineoplastic chemotherapy
CPT/HCPCS: 36415; 36598; 38222; 70450; 71045; 71046; 71260; 74022; 74150; 74176; 74177; 76770; 80048; 80053; 80076; 81001; 82040; 82272; 82330; 82565; 82784; 83540; 83550; 83605; 83615; 83735; 84100; 84145; 84478; 84550; 85025; 85045; 85049; 85379; 85384; 85610; 85730; 86022; 86850; 86880; 86900; 86901; 86920; 87040; 87077; 87086; 87186; 87324; 87502; 94760; 96361; 96365; 96375; 99285